=== PATIENT | female | born 1975 | race Caucasian/White ===

== ENCOUNTER 2023-01-16 14:49 | Outpatient (OUT) | payer MEDICAID, SELFPAY ==
--- NOTE | 2023-01-16 15:42 | CA_ITS ---
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 : 1975 Requested By: CORAZON MO Order Number: [id number] Reading MD: KHUSHBOO SHOEMAKER Interpretive Statements Biphasic doppler waveforms PVR waveforms with normal upstroke, amplitude but loss of dicrotic notch Right: - no significant pressure gradient between cuffs - normal JAVIER and TBI Left: - significant pressure gradient between the thigh and calf cuff - normal JAVIER and TBI IMpression: - elevated left thigh index, consistent with calcified, noncompressible arterial encarnacion, which may underestimate the degree of arterial disease present - normal arterial evaluation without hemodynamic impairment of the B/L lower extremities at rest. (right JAVIER 1.16, left JAVIER 1.03) Electronically Signed On 01-18-2023 20:46:27 EDT by KHUSHBOO SHOEMAKER
== END 2023-01-16 14:50 ==
LOC: CARD 14:54
PROVIDERS: Visit Provider Podiatrist Foot & Ankle Surgery
DX: I73.9 Peripheral vascular disease, unspecified (principal)
CPT/HCPCS: 93923

== ENCOUNTER 2023-04-10 14:35 | Outpatient (OUT) | payer MEDICAID, SELFPAY ==
--- NOTE | 2023-04-10 | XR_ITS ---
The [address] [address] Patient Name: CHANTEL MENDEZ MRN: [id number] date: 1975 Sex: F Assigned Patient Location: [facility] Current Patient Location: [facility] Accession/Order Number: [id number] Exam Date: 04/10/2023 15:15 Report Date: 04/10/2023 16:52 At the request of: CORAZON MO Procedure: XR foot HUNTER min 3V EXAMINATION: XR foot HUNTER min 3V HISTORY: BILATERAL FOOT PAIN COMPARISON: No relevant comparison available. FINDINGS: RIGHT FINDINGS: BONES: No acute fracture or dislocation. Moderate to severe degenerative changes most significant at the midfoot forefoot junction. There is lateral subluxation of the metatarsals in relation to the tarsal bones ingesting chronic Lisfranc type dislocation. Bony remodeling marginal osteophyte formation and joint space narrowing. Moderate plantar enthesopathic spurring of the calcaneus SOFT TISSUES: Negative. No visible soft tissue swelling. OTHER: Negative. LEFT FINDINGS: BONES: No acute fracture or dislocation. Mild degenerative changes most significant in the midfoot with marginal osteophyte formation. Mild to moderate enthesopathic spurring of the calcaneus SOFT TISSUES: Negative. No visible soft tissue swelling. OTHER: Negative. XR/XR foot HUNTER min 3V IMPRESSION: RIGHT CONCLUSION: Moderate to severe degenerative changes of the midfoot hindfoot with lateral subluxation of the metatarsals in relation to the tarsal bones LEFT CONCLUSION: Mild degenerative changes Electronically authenticated by: MICHAEL OLIVER Date: 04/10/2023 16:52
== END 2023-04-10 14:36 | disposition home or self-care (01) ==
LOC: RAD 14:35
PROVIDERS: Visit Provider Podiatrist Foot & Ankle Surgery
DX: M19.072 Primary osteoarthritis, left ankle and foot (principal)
CPT/HCPCS: 73630

== ENCOUNTER 2023-07-09 09:46 | Outpatient (OUT) | payer MEDICAID, SELFPAY ==
--- NOTE | 2023-07-09 | XR_ITS ---
The [place] [id number] Patient Name: CHANTEL MENDEZ MRN: [id number] date: 1975 Sex: F Assigned Patient Location: [facility] Current Patient Location: Accession/Order Number: [id number] Exam Date: 07/09/2023 09:50 Report Date: 07/10/2023 00:27 At the request of: CORAZON MO Procedure: XR ankle LT min 3V XR ankle LT min 3V, 07/09/2023 9:50 AM EST INDICATION: LEFT ANKLE PAIN COMPARISON: None. TECHNIQUE: 3 views of the left ankle FINDINGS: No acute fracture or dislocation. The ankle mortise is preserved. Large plantar calcaneal spur is seen. No radiopaque foreign body. XR/XR ankle LT min 3V IMPRESSION: 1. No acute fracture or dislocation. Electronically authenticated by: PATSY TAI Date: 07/10/2023 00:27
== END 2023-07-09 09:47 | disposition home or self-care (01) ==
LOC: RAD 09:46
PROVIDERS: Visit Provider Podiatrist Foot & Ankle Surgery
DX: M19.072 Primary osteoarthritis, left ankle and foot (principal)
CPT/HCPCS: 73610

== ENCOUNTER 2023-07-30 09:44 | Outpatient (OUT) | payer MEDICAID, SELFPAY ==
--- NOTE | 2023-07-30 09:51 | MR_ITS ---
The [place] [id number] Patient Name: CHANTEL MENDEZ MRN: [id number] date: 1975 Sex: F Assigned Patient Location: MRI Current Patient Location: MRI Accession/Order Number: [id number] Exam Date: 07/30/2023 10:00 Report Date: 07/30/2023 11:27 At the request of: CORAZON MO Procedure: MR ankle LT wo con MR ankle LT wo con, 07/30/2023 10:00 AM EST INDICATION: Peroneal Tendonitis, Degenerative Joint Disease COMPARISON: This study was compared to the prior x-ray of the left ankle dated 07/09/2023. TECHNIQUE: Multiplanar and multisequential MR images of the left were obtained without contrast . FINDINGS: Muscles and tendons: There is circumferential fluid along the posterior tibialis tendon suggesting of tenosynovitis. The remainder of flexor and extensor tendons and muscles are unremarkable. T2 prolongation within the peroneus brevis anterior to the peroneal tubercle likely due to focal tendinosis. No abnormality of the peroneal longus is noted. Achilles tendon is unremarkable. Bone: There are moderate degenerative changes of the naviculocuneiform and mild degenerative changes of the talonavicular joint. No osseus lesion is noted. Sinus Tarsi: No abnormality of sinus Tarsi is noted. Plantar fascia: The plantar fascia is unremarkable. Ligaments: The deep and superficial portions of deltoid are unremarkable. There is complete tear of the anterior talofibular ligament. There is a scar within the fibulocalcaneal and the posterior talofibular ligaments are noted. The remainder of lateral ligaments are unremarkable. The visualized portion of Lisfranc ligament is unremarkable. There is normal intra-articular joint effusion. No soft tissue abnormality is noted. MR/MR ankle LT wo con IMPRESSION: Tenosynovitis of the [posterior tibialis tendon. Focal tendinosis of the peroneus brevis adjacent to the peroneal tubercle. Nonvisualization of the anterior talofibular ligament suggesting of complete tear. Poor visualization of the calcaneofibular and posterior talofibular ligaments likely due to scar. Mid tarsal degenerative changes. Electronically authenticated by: REYMUNDO PROCTOR Date: 07/30/2023 11:27
== END 2023-07-30 09:45 | disposition home or self-care (01) ==
LOC: MRI 09:45
PROVIDERS: Visit Provider Podiatrist Foot & Ankle Surgery
DX: M76.72 Peroneal tendinitis, left leg (principal); M19.072 Primary osteoarthritis, left ankle and foot
CPT/HCPCS: 73721

== ENCOUNTER 2023-08-19 09:11 | Outpatient (RCR) | payer MEDICAID, SELFPAY | END 2023-10-15 17:13 | disposition home or self-care (01) | LOC: PT 09:11 | PROVIDERS: Visit Provider Podiatrist Foot & Ankle Surgery | DX: M76.822 Posterior tibial tendinitis, left leg (principal) | CPT/HCPCS: 97010; 97014; 97035; 97110; 97140; 97162 ==

== ENCOUNTER 2023-08-23 08:03 | Outpatient (RCR) | payer MEDICAID, SELFPAY | END 2023-10-12 17:13 | disposition home or self-care (01) | LOC: OT 08:03 | PROVIDERS: Visit Provider Podiatrist Foot & Ankle Surgery | DX: I89.0 Lymphedema, not elsewhere classified (principal) | CPT/HCPCS: 97140; 97166; 97530 ==

== ENCOUNTER 2024-04-09 22:51 | Emergency (ER) | payer SELFPAY ==
--- OUTSIDE RECORDS SUMMARY | 2024-04-09 23:07 | XMS_ITS | CCD ---
Author Organization [facility] Care Team Providers Care General Foundry Worker Name Role Phone Brandi Pruitt MD P Unavailable [phone] Schwerer DO, Jorgito E Unavailable Schwerer DO, Jorgito E Primary Care Provider [phone] Schwerer, Jorgito Unavailable Michael Morley Jr. Unavailable Lety Falk Unavailable Reyna Black Unavailable Schwerer, Jorgito Unavailable Michael Morley Unavailable Issa Mckenzie Unavailable Schwerer, DO Jorgito E Primary Care Provider [phone] Schwnesha DO Jorgito E Attending Provider MD Jodie [facility] Primary Care Provider Unav ailable MD Michael Morley Attending Provider ISAI SUN Attending Unavailable ISAI SUN Admitting Unavailable SCHWERE, JORGITO Primary Care Unavailable ARACELI SAUNDERS Referring Unavailable DO Alex Aguirre Attending Provider Schwerer, DO Jorgito E Primary Care Provider [phone] Schwnesha DO Jorgito E Attending Provider VIPUL Pereira Attending Provider Jazmin Pereira Unavailable Brandi Pruitt MD P Unavailable Schwerer DO, Jorgito E Unavailable Schwerer DO, Jorgito E Primary Care Provider [phone] Schwerer, DO Jorgito E Primary Care Provider Schwerer, DO Jorgito E Attending Provider MD No Torres Attending Provider Schwerer, DO Jorgito E Primary Care Provider Schwerer, DO Jorgito E Attending Provider DO Alex Aguirre Attending Provider [phone] MALDONADO Pereira-Daxa Botello Attending Provider MD No Torres Attending Provider MD Michael Morley Attending Provider [phone] DO Issa Stovall Emergency Provider UnavaDO Kelby Villegas Emergency Provider [phone] Schwerer, DO Jorgito E Primary Care Provider Schwerer, DO Jorgito E Attending Provider Schwerer, DO Jorgito E Primary Care Provider Schwerer, DO Jorgito E Primary Care Provider TRI Reed Emergency Provider MD Vane Felicianoarika Primary Care Provider Unav TODD Cameron Emergency Provider Edmond CHUA, Brandi P Unavailable Schwerer DO, Jorgito E Unavailable [phone] Schwerer DO, Jorgito E Primary Care Provider [phone] Schwerer, DO Jorgito E Primary Care Provider [phone] MD Kenny Villarreal Attending Provider [phone] Schwerer, DO Jorgito E Primary Care Provider [phone] MD Michael Morley Attending Provider MD No Torres Attending Provider TODD Dempsey Attending Provider SCHWERER, Jorgito E Primary Care Physician Kenny Villarreal Schwerer, DO Jorgito E Primary Care Provider [phone] Schwerer, DO Jorgito E Attending Provider Schwerer, DO Jorgito E Other Provider Schwerer, DO Jorgito E Primary Care Provider [phone] Schwerer, DO Jorgito E Attending Provider TODD Magallanes Emergency Provider MD Kenny Villarreal Attending Provider MD No Torres Attending Provider [phone] TODD Dempsey Attending Provider [phone] Schwerer, DO Jorgito E Other Provider MD Jodie [facility] Primary Care Provider Unav MD Michael Vick Attending Provider MD Kenny Rothman Jr Emergency Provider Schwerer, DO Jorgito E Primary Care Provider [phone] Schwerer, DO Jorgito E Attending Provider DO Issa Stovall Emergency Provider MD Kenny Olguin Other Provider MD Mimi Villarreal Other Provider MD Zayda Ku Other Provider DO Holden Strange Other Provider [phone] MD Holland Murphy II Other Provider MD Sam Hodges Admit Provider MD Sam Hodges Attending Provider [phone] MD Walter Zhang Attending Provider [phone] MD Mimi Rodriguez Other Provider WEST, DR MICHAEL Bansal Consulting Unavailable HIGHLANDER, PETER D Admitting Unavailable HIGHLANDER, PETER D Attending Unavailable HIGHLANDER, PETER D Consulting Unavailable WEST, DR MICHAEL Bansal Consulting Unavailable HIGHLANDER, PETER D Admitting Unavailable HIGHLANDER, PETER D Attending Unavailable HIGHLANDER, PETER D Consulting Unavailable HIGHLANDER, PETER D Admitting Unavailable HIGHLANDER, PETER D Attending Unavailable TORRES ., DR SARABIA Attending Unavailable TORRES ., DR SARABIA Consulting Unavailable TORRES ., DR SARABIA Admitting Unavailable TOTH NII Consulting Unavailable TORRES ., DR SARABIA Attending Unavailable TORRES ., DR SARABIA Consulting Unavailable TORRES ., DR SARABIA Admitting Unavailable TORRES ., DR SARABIA Attending Unavailable TORRES ., DR SARABIA Consulting Unavailable TORRES ., DR SARABIA Admitting Unavailable ZIEBER, DR FABY Botello Consulting Unavailable EDILIA LOOMIS Consulting Unavailable ALEX MEDINA Consulting Unavailable TORRES ., DR SARABIA Admitting Unavailable TORRES ., DR SARABIA Attending Unavailable TORRES ., DR SARABIA Consulting Unavailable ZIEBER, DR FABY Botello Consulting Unavailable FRANK MARYCHUY Consulting Unavailable ALEX MEDINA Consulting Unavailable TORRES ., DR SARABIA Attending Unavailable TORRES ., DR SARABIA Consulting Unavailable TORRES ., DR SARABIA Admitting Unavailable BRENT II, KENNY Consulting Unavailable ALEX MEDINA Consulting Unavailable TORRES ., DR SARABIA Attending Unavailable TORRES ., DR SARABIA Admitting Unavailable DO Jorgito Sanchez Primary Care Provider [phone] MD Kenny Villarreal Attending Provider TRI Reed Emergency Provider [phone] DO Chris Sol Emergency Provider DO Jorgito Sanchez Primary Care Provider [phone] TODD Magallanes Emergency Provider [phone] MD Jodie [facility] Primary Care Provider Unav MD Michael Vick Attending Provider [phone] MD Edilia Buitrago Referring Provider [phone] TODD Corea Primary Care Provider MD Mimi Corea Emergency Provider MD Michael Morley Attending Provider MD Vane Felicianoarika Primary Care Provider Unav ailable DO Augustine David Attending Provider DO Jorgito Sanchez Primary Care Provider [phone] TRI Reed Emergency Provider NON STAFF Primary Care Provider UnavailDO Alex Burroughs Attending Provider MD No Torres Attending Provider [facility] Primary Care Provider No TORRES Attending Unavailable No TORRES Attending Unavailable Jorgito SANCHEZ Attending Unavailable No TORRES Attending Unavailable No TORRES Attending Unavailable No TORRES Referring Unavailable MELISSA, No Botello Admitting Unavailable No TORRES Attending Unavailable No TORRES Attending Unavailable MD Vane Felicianoarika Primary Care Provider Unav ailable MD Michael Morley Attending Provider [facility] Primary Care Provider DO Chris Sol Emergency Provider TODD Corea Attending Provider Jorgito Sanchez DO Unavailable [phone] Anmol CARRILLO Brigida R Unavailable Anmol CARRILLO Brigida Yolanda Primary Care Provider SMITA, ISAI Attending Unavailable SKIE, ISAI Attending Unavailable SKIE, ISAI Attending Unavailable SKIE, ISAI Attending Unavailable SKIE, ISAI Attending Unavailable SKIE, ISAI Admitting Unavailable SKIE, ISAI Attending Unavailable SKIE, ISAI Attending Unavailable ANDREA, ROSE Attending Unavailable DARLEEN, YASMANI Attending Unavailable SKIE, ISAI Referring Unavailable SKIE, ISAI Attending Unavailable ANDREA, JACQUI Attending Unavailable SKIE, ISAI Referring Unavailable SKIE, ISAI Referring Unavailable SKIE, ISAI Referring Unavailable SKIE, ISAI Referring Unavailable SKIE, ISAI Attending Unavailable KENIA CONROY Referring Unavailable ISAI SUN Attending Unavailable ROSE FERNANDO Referring Unavailable ISAI SUN Admitting Unavailable ISAI SUN Attending Unavailable [facility] Primary Care Provider [phone] DO Chris Sol Emergency Provider TODD Corea Attending Provider MD Vane Felicianoarika Primary Care Provider Unav MD Michael Vick Attending Provider TODD Newell Emergency Provider TODD Magallanes Emergency Provider [facility] Primary Care Provider TODD Corea Attending Provider Brigida Corea CNP Primary Care Provider TRI Reed Emergency Provider [facility] Primary Care Provider [phone] DO Augustine David Attending Provider [facility] Primary Care Provider TODD Corea Primary Care Provider TODD Barnes-TABITHA-aDxa Bundy Attending Provider DO No [place] Emergency Provider TODD Newell Emergency Provider [phone] JACQUI MONZON Attending Unavailable LAUREN VILLARREAL Attending Unavailable CHACORTA FERNANDO Attending Unavailable LAUREN VILLARREAL Attending Unavailable JACQUI MONZON Attending Unavailable NIKI MURPHY Attending Unavailable NIKI MURPHY Referring Unavailable NIKI MURPHY Attending Unavailable SIMONE BARNES Attending Unavailable ISSA GAMBINO Attending Unavailable ISSA GAMBINO Referring Unavailable SIMONE BARNES Attending Unavailable [place] Reed Admitting Unavailable [place] Reed Attending Unavailable [facility] Primary Care Unavaila Brigida Yun Attending Unavailable Brigida Corea Admitting Unavailable [facility] Primary Care Unavaila Augustine Braden Admitting Unavailable Augustine David Attending Unavailable [place] Reed Attending Unavailable Anmol, Brigida Leny Primary Care Unavailable [place] Reed Admitting Unavailable Osiris, Gaudencio Attending Unavailable Corea, Brigida Leny Primary Care Unavailable Osiris, Gaudencio Admitting Unavailable [place] Reed Attending Unavailable [place] Reed Admitting Unavailable Corea, Brigida Leny Primary Care Unavailable Michael Morley Attending Unavailable Michael Morley Admitting Unavailable Karenwallaceamos Naomi Primary Care Unavailable Corea, Brigida Leny Primary Care Unavailable Barnes, Simone E Admitting Unavailable Cameron Simone E Attending Unavailable Corea, Brigida Leny Primary Care Unavailable No [place] Attending Unavailable No [place] Admitting Unavailable Corea, Brigida Leny Primary Care Unavailable Simone Barnes E Attending Unavailable Cameron Simone E Admitting Unavailable No Torres Admitting Unavailable [facility] Primary Care Unavaila No Patel Attending Unavailable Augustine David Attending Unavailable Augustine David Admitting Unavailable NON STAFF Primary Care Unavailable Alex Aguirre Attending Unavailable Alex Aguirre Admitting Unavailable NON STAFF Primary Care Unavailable Corea, Brigida Leny Admitting Unavailable Corea, Brigida Leny Attending Unavailable [facility] Primary Care Unavaila ble Mary Ellen Magallanes Attending Unavailable Mary Ellen Magallanes Admitting Unavailable [facility] Primary Care Unavaila ble Chris Sol Attending Unavailable Chris Sol Admitting Unavailable [facility] Primary Care Unavaila ble Osiris, Gaudencio Admitting Unavailable John Newellothy Attending Unavailable [facility] Primary Care Unavaila ble MELONY ALAMO Attending Unavailable COREA, BRIGIDA R Primary Care Unavailable ANGEL ZUNIGA Attending Unavailable SUKALAC, NASRA Referring Unavailable COREA, BRIGIDA R Primary Care Unavailable SUKALAC, NASRA Referring Unavailable COREA, BRIGIDA R Primary Care Unavailable SECINALEXANDRACARTER Referring Unavailable COREA, BRIGIDA R Primary Care Unavailable CARTER HALL Attending Unavailable ANMOL, BRIGIDA R Primary Care Unavailable MELONY ALAMO Referring Unavailable COREA, BRIGIDA R Primary Care Unavailable JACQUI CASTRO Attending Unavailable SECIN, CARTER Referring Unavailable COREA, BRIGIDA R Primary Care Unavailable MIMI HERMOSILLO Attending Unavailable REGINA ATKINS Referring Unavailable COREA, BRIGIDA R Primary Care Unavailable MELONY ALAMO Referring Unavailable COREA, BRIGIDA R Primary Care Unavailable JOHNNY SPIVEY Attending Unavailable BRIGIDA COREA R Primary Care Unavailable GINA NASRA Attending Unavailable JORGITO SANCHEZ Primary Care Unavailable CARTER HALL Attending Unavailable BRIGIDA COREA R Primary Care Unavailable JOHNNY SPIVEY Attending Unavailable BRIGIDA COREA R Primary Care Unavailable SIMONE BEARD Attending Unavailable SUKALAC, NASRA Referring Unavailable ANMOL BRIGIDA R Primary Care Unavailable GINA NASRA Attending Unavailable SUPRICELAC, NASRA Referring Unavailable BRIGIDA COREA R Primary Care Unavailable CARTER HALL Referring Unavailable BRIGIDA COREA R Primary Care Unavailable Allergies Allergy Classification Reported Allergen(s) Allergy Type Date of Onset Reaction(s) Facility Anti-Epileptic Agents (2 sources) gabapentin Drug Allergy Unknown Reaction, [facility] Baclofen (1 source) Baclofen Drug Allergy Unknown Reaction [facility] Cephalosporins (antibiotic) (1 source) Cephalexin Drug Allergy Nausea [facility] cyclobenzaprine (1 source) cyclobenzaprine Drug Allergy [facility] Macrolides (antibiotic) (1 source) Azithromycin Drug Allergy Rash, itching [facility] Menthol (1 source) Menthol Drug Allergy Unknown Reaction [facility] NSAIDs (1 source) Naproxen Drug Allergy Rash [facility] Opioid Agonists (2 sources) traMADol Drug Allergy Unknown Reaction [facility] Penicillins (antibiotic) (1 source) Penicillins Drug Allergy [facility] Quinolones (antibiotic) (1 source) Ciprofloxacin Drug Allergy Unknown Reaction [facility] Serotonin-1b and Serotonin-1d Receptor Agonists (1 source) SUMAtriptan Drug Allergy Gastrointestinal Upset [facility] Vitamin E (1 source) Vitamin E Drug Allergy 024 Unknown Reaction [facility] (20 sources) Aloe vera preparation; Translations: [ALOE VERA] Drug Allergy Other: See Comments [facility] (20 sources) Azithromycin; Translations: [AZITHROMYCIN] Drug Allergy Itching, Rash [facility] (20 sources) Baclofen; Translations: [BACLOFEN] Drug Allergy Other: See Comments, Swelling [facility] (20 sources) Cephalexin; Translations: [CEPHALEXIN] Drug Allergy GI Upset, Vomiting [facility] (20 sources) Ciprofloxacin; Translations: [CIPROFLOXACIN] Drug Allergy Other: See Comments [facility] (20 sources) cyclobenzaprine; Translations: [cyclobenzaprine] Drug Allergy Hives, Unknown [facility] (20 sources) gabapentin; Translations: [gabapentin] Drug Allergy Hives, Unknown, Other: See Comments, Eruption of skin (disorder) [facility] (20 sources) Menthol; Translations: [MENTHOL] Drug Allergy Other: See Comments [facility] (20 sources) metFORMIN; Translations: [METFORMIN] Drug Allergy Hives [facility] (4 sources) Non-steroidal anti-inflammatory agent; Translations: [NSAIDS (NON-STEROIDAL ANTI-INFLAMMATORY DRUG)] Drug Allergy 019 Hives, Rash, Other: See Comments [facility] (20 sources) cyclobenzaprine; Translations: [Flexeril] Drug Allergy Unknown [facility] (20 sources) Naproxen; Translations: [naproxen] Drug Allergy Unknown, Rash [facility] (20 sources) NSAIDs Propensity to adverse reactions Unknown [facility] Other (20 sources) Penicillins; Translations: [PENICILLINS] Propensity to adverse reactions Unknown, [facility] (20 sources) traMADol Drug Allergy Unknown, Unknown Reaction [facility] (20 sources) SUMAtriptan; Translations: [sumatriptan] Drug Allergy Gastrointestinal Upset [facility] (20 sources) topiramate; Translations: [topiramate] Drug Allergy [facility] (20 sources) Vitamin E; Translations: [vitamin E (d-alpha tocopherol)] Drug Allergy 022 Unknown Reaction [facility] (2 sources) Amoxicillin; Translations: [AMOXICILLIN] Drug Allergy [facility] Rep[facility] (1 source) NSAIDs Drug allergy (disorder) [facility] (2 sources) Penicillins (Antibiotic) Drug allergy (disorder) [facility] (1 source) rOPINIRole Drug Allergy [facility] (3 sources) topiramate; Translations: [Topamax] Drug Allergy [facility] (20 sources) Non-steroidal anti-inflammatory agent Drug Allergy Hives, Rash, Other: See Comments [facility] (2 sources) Allergy to penicillin; Translations: [Penicillin allergy] Drug allergy itching [facility] (2 sources) Ibuprofen; Translations: [ibuprofen] Drug Allergy rash [facility] (2 sources) tiZANidine; Translations: [tizanidine] Drug Allergy Eruption of skin (disorder) [facility] (2 sources) zonisamide; Translations: [zonisamide] Drug Allergy Eruption of skin (disorder) [facility] (20 sources) Morphine; Translations: [morphine] Drug Allergy 023 GI Upset [facility] (1 source) Amoxicillin Drug Allergy [facility] Rep[facility] (2 sources) gabapentin; Translations: [Neurontin] Drug Allergy [facility] (1 source) metFORMIN Drug Allergy [facility] (1 source) Naproxen Drug Allergy [facility] (1 source) tiZANidine Drug Allergy [facility] (1 source) zonisamide Drug Allergy [facility] (1 source) NSAID - Non-steroidal anti-inflammatory drug; Translations: [NSAID - Non-steroidal anti-inflammatory drug] Propensity to adverse reactions (disorder) [facility] Repository (6 sources) Penicillin Drug Allergy Unknown [facility] Other (14 sources) NSAIDS (Non-Steroidal Anti-Inflamma; Translations: [NSAIDS (Non-Steroidal Anti-Inflamma] Allergy to substance unknown [facility] (1 source) Aloe Extract Drug Allergy [facility] Repository (1 source) Azithromycin Drug Allergy [facility] Repository (1 source) Baclofen Drug Allergy [facility] Repository (1 source) Cephalexin Drug Allergy [facility] Repository (1 source) Ciprofloxacin Drug Allergy [facility] Repository (1 source) cyclobenzaprine Drug Allergy [facility] Repository (1 source) gabapentin Drug Allergy [facility] Repository (1 source) Menthol Drug Allergy [facility] Repository (1 source) Naproxen Drug Allergy [facility] Repository (1 source) Penicillins Drug allergy (disorder) [facility] Repository (1 source) traMADol Drug Allergy [facility] Repository Medications Current Medications Medication Drug Class(es) Dates Sig (Normalized) Sig (Original) [id number] 200 actuat albuterol 0.09 mg/actuat metered dose inhaler (20 sources) beta2-Adrenergic Agonist Start: 09-25-2022 take 2 puff(s) by inhalation every four to six hours as needed Start: 06-14-2022 End: 02-23-2023 Albuterol Sulfate Discontinu ed 1 INH INHALATION Q6H 08 11June 14, 2022 1:00am February 23, 2023 8:12pm Start: 05-23-2021 End: 05-30-2021 Albuterol Sulfate Discontinu ed 1 INH INHALATION EVERY 4-6 HOURS May 23, 2021 12:00am May 30, 2021 12:49am Start: 09-21-2019 End: 08-07-2023 take 2.5 mg by inhalation every four hours Albuterol Sulfate Discontinued 2.5 MG INHALATION Q4H September 21, 2019 1:00am August 07, 2023 11:29pm Start: 09-21-2019 End: 08-07-2023 take 1 puff(s) by inhalation every four hours Albuterol Sulfate Discontinued 2 PUFF INHALATION Q4H September 21, 2019 1:00am August 07, 2023 11:29pm Start: 06-17-2017 Albuterol Sulf ate (2.5 MG/3ML) 0.083% 3 ml as needed Inhalation every 4 hous as needed Jun, Active Start: 05-18-2015 End: 10-15-2023 PROAIR HFA 90 mcg/actuation inhaler as needed. 0 05/18/2015 10/15/2023 Discontinued End: 10-15-2023 albuterol HFA (PROVENTIL HFA , VENTOLIN HFA) 90 mcg/actuation inhaler Inhale 2 Puffs as instructed. 0 10/15/2023 Discontinued take 1 puff(s) by in halation every four hours as needed ProAir HFA 108 (90 Base) MCG/ACT 1 puff as needed Inhalation every 4 hrs prn Active Comment on above: as needed. Inhale 2 Puffs as in structed. albuterol 0.833 mg/ml / ipratropium bromide 0.167 mg/ml inhalation solution (6 sources) Anticholinergic, beta2-Adrenergic Agonist take 3 mL by inhalation every six hours as needed Ipratropium-Albuter ol 0.5-2.5 (3) MG/3ML 3 mL as needed Inhalation every 6 hrs Active Albuterol Sulfate 108 (90 Base) MCG/ACT (20 sources) Start: take 1 puff(s) by inhalation every six hours as needed Start: 06-14-2022 take 1 puff(s) by in halation every six hours as needed Albuterol Sulfate 108 (90 Base) MCG/ACT 1 puff as needed Inhalation every 6 hrs ER 10 Jun, 2022 Active Start: 06-14-2022 take 1 puff(s) by in halation every six hours as needed Albuterol Sulfate 108 (90 Base) MCG/ACT 1 puff as needed Inhalation every 6 hrs for 7 days ER 10 Jun, 2022 Active azithromycin 250 mg oral tablet (5 sources) Macrolide Antimicrobial Start: 06-18-2022 Azithromycin 250 MG 2 tablet on the first day, then 1 tablet daily for 4 days Orally Once a day for 5 day(s) Jun, Active Breo Ellipta 100-25 MCG/INH (20 sources) Start: 12-19-2021 take 1 puff(s) by inhalation once daily Start: 12-19-2021 take 1 puff(s) by in halation once daily Breo Ellipta 100-25 MCG/INH 1 puff Inhalation Once a day December, Not-Taking Start: 12-19-2021 take 1 puff(s) by in halation once daily Breo Ellipta 100-25 MCG/INH 1 puff Inhalation Once a day December, Active carBAMazepine 200 mg oral tablet (20 sources) Mood Stabilizer Start: 08-07-2023 take 200 mg by mouth once daily Carbamazepine Active 200 MG PO Daily August 07, 2023 1:00am Start: 08-07-2023 Carbamazepine Active MG TABLET August 07, 2023 12:00am Start: 08-21-2022 End: 08-07-2023 take 200 mg by mouth twice daily Carbamazepine Discontinued 200 MG PO Twice daily November 03, 2022 12:00am August 07, 2023 11:29pm carBAMazepine Ac tive Comment on above: Take 200 mg by mouth twice daily. carbidopa 25 mg / levodopa 100 mg oral tablet (20 sources) Aromatic Amino Acid Decarboxylation Inhibitor, Aromatic Amino Acid Start: 01-26-2019 Carbidopa-Levodopa Active TAB TABLET August 07, 2023 12:00am Start: 05-15-2017 End: 08-07-2023 take 2 tablets by mouth once daily at bedtime Carbidopa-Levodopa Active 2 TAB PO Daily at bedtime August 07, 2023 1:00am Start: 05-29-2015 carbidopa-levo dopa (SINEMET 10-100) 10-100 mg per tablet 1 tablet daily at bedtime. 05/29/2015 Active take 1 tablet by roly th at bedtime as needed Carbidopa-Levodopa 25-100 MG TAKE 1 TABLET BY MOUTH AT BEDTIME NEEDED for 30 Active Comment on above: 1 tablet daily at be dtiny. cholecalciferol 1.25 mg oral capsule (9 sources) Vitamin D Start: 09-26-2023 take 1 capsule by mouth every week cholecalciferol, Vitamin D3, (VITAMIN D3) 1,250 mcg (50,000 unit) cap capsule Take 1 capsule by mouth one time a week. 09/26/2023 Active Comment on above: Take 1 capsule by mo [facility] one time a week. Compression stockings, 20-30mmHg, calf 20-30mmHg (20 sources) Start: 04-26-2022 Start: 04-26-2022 Start: 04-26-[address] [place]ckings, 20-30mmHg, calf 20-30mmHg 1 externally daily as directed for 90 days Apr, Active Start: 04-26-[address] [place]ckings, 20-30mmHg, calf 20-30mmHg 1 externally daily as directed for 90 day Apr, Active dextromethorphan hydrobromide 1.5 mg/ml / pyrilamine maleate 1.5 mg/ml oral solution (17 sources) Uncompetitive J-zlvdmh-U-aspartate Receptor Antagonist, Sigma-1 Agonist Start: 09-25-2022 take 10 mL by mouth every eight hours dulaglutide (12 sources) GLP-1 Receptor Agonist Start: 02-19-2024 inject 4.5 mg by subcutaneous injection every week Dulaglutide Active 4.5 MG SUBCUT every week February 19, 2024 9:15am Start: 04-10-2023 Trulicity 0.75 MG/0.5ML 1 injector Subcutaneous weekly for 28 days Apr, Active Trulicity 4.5 MG /0.5ML USE DIRECTED SUBCUTANEOUSLY ONCE A WEEK for 28 Active Trulicity 4.5 MG /0.5ML as directed Subcutaneous weekly for 30 days E11.9 Active Trulicity 3 MG/0 .5ML as directed Subcutaneous weekly for 30 days Active Trulicity 1.5 MG /0.5ML as directed Subcutaneous weekly for 30 days Active dulaglutide (TRULICITY) 4.5 mg/0.5 mL pen injector (14 sources) inject 4.25 mg by subcutaneous injection every week dulaglutide (TRULICITY) 4.5 mg/0.5 mL pen injector Inject 4.25 mg subcutaneously one time a week. Active inject 4.25 mg by garcia bcutaneous injection every week dulaglutide (TRULICITY) 4.5 mg/0.5 mL pe n injector Inject 4.25 mg subcutaneously one time a week. 0 Active Comment on above: Inject 4.25 mg subcu taneously one time a week. DULoxetine 60 mg delayed release oral capsule (20 sources) Serotonin and Norepinephrine Reuptake Inhibitor Start: 08-07-2023 Duloxetine Active MG PO August 07, 2023 12:00am Start: 09-04-2021 take 60 mg by mouth once daily Duloxetine Active 60 MG PO Daily August 07, 2023 1:00am Start: 09-04-2021 End: 08-07-2023 take 90 mg by mouth once daily Duloxetine Discontinued 90 MG PO Daily September 04, 2021 1:00am August 07, 2023 11:29pm Start: 09-04-2021 take 30 mg by mouth once daily Duloxetine Active 30 MG PO Daily September 04, 2021 1:00am Comment on above: Take 60 mg by mouth. duloxetine 60 mg Cap-DR (1 source) Start: 2 take 1 capsule by mouth once daily duloxetine 60 mg Cap-DR 60 mg, Oral, Daily Start Date: 05/02/22 Status: Ordered 30 actuat fluticasone furoate 0.1 mg/actuat / vilanterol 0.025 mg/actuat dry powder inhaler (18 sources) Corticosteroid, beta2-Adrenergic Agonist Start: 2 take 1 puff(s) by inhalation once daily Breo Ellipta 100-25 MCG/INH 1 puff Inhalation Once a day for 30 days December, Active furosemide 40 mg oral tablet (20 sources) Loop Diuretic Start: 2 End: 4 take 1 tablet by mouth once daily furosemide 40 mg Tab 40 mg = 1 tab(s), Oral, Daily Start Date: 05/02/22 Status: Ordered Start: 01-21-2020 End: 08-07-2023 take 40 mg by mouth twice daily Furosemide Discontinue d 40 MG PO Twice daily January 21, 2020 12:00am August 07, 2023 11:29pm Start: 05-15-2017 End: 01-21-2020 take 1 tablet by mouth twice daily Furosemide (Lasix) 20 mg Tablet Discontinued 20 MG PO Twice daily May 15, 2017 12:00am January 21, 2020 9:14am Comment on above: furosemide 40 mg tab let TAKE 1 TABLET BY MOUTH ONCE DAILY FOR 30 DAYS Victoza (20 sources) GLP-1 Receptor Agonist Start: 05-02-2022 inject 1 mg by subcutaneous injection once daily Victoza mg, SubCutaneous, Daily Start Date: 05/02/22 Status: Ordered Start: 03-20-2021 End: 10-15-2023 Liraglutide (Victoza 3-Arden) 0.6 mg/0.1 mL (18 mg/3 mL) pen injector Discontinued 1.8 MG SUBCUT Every morning March 20, 2021 12:00am August 07, 2023 11:29pm Start: 03-20-2021 End: 03-20-2021 Liraglutide (Victoza 3-Arden) 0.6 mg/0.1 mL (18 mg/3 mL) pen injector Discontinued MG SUBCUT March 20, 2021 12:00am March 20, 2021 8:25am Comment on above: Victoza 3-Arden 0.6 mg /0.1 mL (18 mg/3 mL) subcutaneous pen injector Lumateperone (13 sources) Start: 10-06-19 take 1 capsule by mouth once daily Lumateperone (Caplyta) 10.5 mg capsule Active 10.5 MG PO Daily October 06, 2023 1:00am lumateperone (CAPLYTA) 10.5 mg capsule (9 sources) take 1 capsule by mouth once daily lumateperone (CAPLYTA) 10.5 mg capsule Take 10.5 mg by mouth once daily. Active take 1 capsule by mouth once dawson ly lumateperone (CAPLYTA) 10.5 mg capsule Take 10.5 mg by mouth once daily. 0 Active Comment on above: Take 10.5 mg by mout h once daily. metoclopramide 5 mg oral tablet (13 sources) Dopamine-2 Receptor Antagonist Start: 2 take 1 tablet by mouth every twelve hours Reglan 5 MG 1 tablet before meals Orally Twice a day for 30 day(s) Mar, Active nabumetone 500 mg oral tablet (16 sources) Nonsteroidal Anti-inflammatory Drug Start: 4 nabumetone (RELAFEN) 500 mg tablet 500 mg. 11/13/2023 Active Start: 10-27-2023 take 750 mg by mouth twice daily Nabumetone Active 750 MG PO Twice daily October 27, 2023 12:00am nitrofurantoin, macrocrystals 25 mg / nitrofurantoin, monohydrate 75 mg oral capsule (20 sources) Nitrofuran Antibacterial Start: 10-14-2023 End: 10-19-2023 take 1 capsule by mouth twice daily nitrofurantoin monohydrate and macrocrystal (MACROBID) 100 mg capsule Take 1 capsule by mouth two times a day for 5 days. 10 capsule 0 10/14/2023 10/19/2023 Active Start: 08-08-2023 End: 10-06-2023 take 1 capsule by mouth twice daily at mealtime Nitrofurantoin Monohyd/M-Cryst (Macrobid) 100 mg capsule Discontinued 100 MG PO Twice daily 10 August 08, 2023 1:00am October 06, 2023 6:40pm must administer with a meal/food Start: 10-20-2022 End: 11-03-2022 take 1 capsule by mouth every twelve hours at mealtime Nitrofurantoin Monohyd/M-Cryst (Macrobid) 100 mg capsule Discontinued 100 MG PO Q12H 10 October 20, 2022 12:00am November 03, 2022 1:49am administer with a meal/food; swallow whole; do not open, crush, dissolve , or chew Start: 03-01-2022 take 1 tablet by roly twice daily Macrobid 100 MG 1 tab Orally BID for 5 days Feb, Active Start: 05-15-2017 End: 05-22-2017 take 1 capsule by mouth every twelve hours at mealtime Nitrofurantoin Monohyd/M-Cryst (Macrobid) 100 mg capsule Discontinued 100 MG PO Q12H 14 May 15, 2017 12:00am May 22, 2017 12:03am administer with a meal/food; swallow whole; do not open, crush, dissolve , or chew Comment on above: Take 1 capsule by mo uth two times a day for 5 days. Nurtec ODT (1 source) Start: 05-02-2022 take 75 mg by mouth once Nurtec ODT 75 mg, Oral, Once Start Date: 05/02/22 Status: Ordered omeprazole 40 mg delayed release oral capsule (20 sources) Proton Pump Inhibitor Start: 04-02-2022 take 1 capsule by mouth once daily Omeprazole 40 MG 1 capsule 30 minutes before morning meal Orally Once a day for 30 day(s) Mar, Active Start: 09-21-2019 End: 09-23-2019 take 10 mg by mouth once daily Omeprazole Discontinued 10 MG PO Daily September 21, 2019 1:00am September 23, 2019 10:51am polyethylene glycol 3350 33663 mg powder for oral solution (5 sources) Osmotic Laxative Start: 11-28-2023 polyethylene glycol 3350 (MIRALAX) 17 gram/dose powder Indications: Other constipation Take 17 g by mouth once daily as needed. 166 g 2 11/28/2023 Active pramipexole dihydrochloride 0.125 mg oral tablet (20 sources) Nonergot Dopamine Agonist Start: 10-06-2023 Pramipexole Active M G TABLET October 06, 2023 1:00am Start: 10-02-2023 take 1 tablet by roly th at bedtime pramipexole (MIRAPEX) 0.125 mg tablet TAKE 1 TABLET BY MOUTH 2 TO 3 HOURS BEFORE BEDTIME 10/02/2023 Active Comment on above: TAKE 1 TABLET BY ROLY TH 2 TO 3 HOURS BEFORE BEDTIME pregabalin 100 mg oral capsule (20 sources) Start: 10-28-2023 take 100 mg by mouth once daily at bedtime Pregabalin Active 100 MG PO Daily at bedtime October 28, 2023 10:14am Start: 08-07-2023 End: 10-28-2023 take 100 mg by mouth twice daily Pregabalin Discontinued 100 MG PO Twice daily August 07, 2023 1:00am October 28, 2023 10:15am Start: 08-07-2023 End: 10-28-2023 Pregabalin Discontinued MG J an2023 1:00am October 28, 2023 10:16am Start: 08-07-2023 Pregabalin Act sushma MG August 07, 2023 1:00am Start: 08-07-2023 Pregabalin Act sushma MG August 07, 2023 12:00am End: 10-15-2023 take 1 capsule by mouth twice daily pregabalin (LYRICA) 50 mg capsule Take 50 mg by mouth two times a day. 0 10/15/2023 Discontinued Comment on above: Take 50 mg by mouth two times a day. ramelteon 8 mg oral tablet (4 sources) Melatonin Receptor Agonist take 1 tablet by mouth every twenty-four hours Ramelteon 8 MG 1 tablet at bedtime as needed Orally Once a day Active rimegepant sulfate (NURTEC ODT ORAL) (14 sources) rimegepant sulfa te (NURTEC ODT ORAL) Take 75 mg by mouth. Active rimegepant sulfa te (NURTEC ODT ORAL) Take 75 mg by mouth. 0 Active Comment on above: Take 75 mg by mouth. Completed/Discontinued Medications Medication Drug Class(es) Dates Sig (Normalized) Sig (Original) acetaminophen 325 mg / butalbital 50 mg / caffeine 40 mg oral capsule (20 sources) Barbiturate, Central Nervous System Stimulant, Methylxanthine Start: 09-21-2019 End: 01-21-2020 take 1 capsule by mouth every four hours Butalbital-Acetam inophen-Caff (Esgic) 50-325-40 mg Capsule Discontinued 1 CAP PO Q4H September 21, 2019 1:00am January 21, 2020 9:14am acetaminophen 325 mg / HYDROcodone bitartrate 5 mg oral tablet (20 sources) Opioid Agonist Start: 04-03-2021 End: 05-30-2021 take 1 tablet by mouth every six hours Hydrocodone-Aceta minophen Discontinued 1 TAB PO Q6H 30 April 03, 2021 May 30, 2021 12:49am Start: 05-15-2017 End: 01-04-2019 take 1 tablet by mouth every four to six hours Hydrocodone-Acetaminophen (Vicodin) 5-30 0 mg Tablet Discontinued 1 TAB PO EVERY 4-6 HOURS May 15, 2017 12:00am January 04, 2019 9:26pm acetaminophen 325 mg / oxyCODONE hydrochloride 5 mg oral tablet (20 sources) Opioid Agonist Start: 03-12-2024 End: 03-23-2024 take 1 tablet by mouth every eight hours Oxycodone-Acetaminophen (Percocet) 5-325 mg tablet Discontinued 1 TAB PO Every 8 hours 7 2 March 12, 2024 March 23, 2024 6:36pm Start: 10-20-2022 End: 11-03-2022 take 1 tablet by mouth every six hours Oxycodone-Acetaminophen (Percocet) 5-325 mg tablet Discontinued 1 - 2 TAB PO Every 6 hours 22 11October 20, 2022 November 03, 2022 1:50am Start: 04-10-2021 End: 05-30-2021 take 1 tablet by mouth every six hours Oxycodone-Acetaminophen (Percocet) 5-325 mg tablet Discontinued 1 TAB PO Q6H 10 April 10, 2021 May 30, 2021 12:49am ascorbic acid 500 mg oral tablet (20 sources) Vitamin C Start: 11-03-2022 End: 02-23-2023 take 1 tablet by mouth once daily Ascorbic Acid (Vitamin C) (Vitamin C) 500 mg Tablet Discontinued 500 MG PO Daily November 03, 2022 12:00am February 23, 2023 8:12pm B-12 - up to 1000 mcg (20 sources) Start: 10-16-2022 B-12 - up to 1 000 mcg Oct, 1000 mcg Start: 08-22-2022 B-12 - up to 1 000 mcg Aug, 1000 mcg Start: 03-08-2022 B-12 - up to 1 000 mcg Mar, 1000 mcg Start: 01-30-2022 B-12 - up to 1 000 mcg Jan, 1000 mcg Start: 11-21-2021 B-12 - up to 1 000 mcg Nov, 1000 mcg Start: 10-10-2021 B-12 - up to 1 000 mcg Oct, 1000 mcg Start: 09-15-2021 B-12 - up to 1 000 mcg Sep, 1000 mcg Start: 08-14-2021 B-12 - up to 1 000 mcg Aug, 1000 mcg Start: 07-13-2021 B-12 - up to 1 000 mcg Jul, 1000 mcg Start: 04-25-2021 B-12 - up to 1 000 mcg Apr, 1000 mcg Start: 03-29-2021 B-12 - up to 1 000 mcg Mar, 1000 mcg Start: 02-21-2021 B-12 - up to 1 000 mcg Feb, 1000 mcg Start: 01-24-2021 B-12 - up to 1 000 mcg Jan, 1000 mcg Start: 12-13-2020 B-12 - up to 1 000 mcg December, 1000 mcg Start: 11-17-2020 B-12 - up to 1 000 mcg Nov, 1000 mcg Start: 09-14-2020 B-12 - up to 1 000 mcg Sep, 1000 mcg Start: 09-01-2020 B-12 - up to 1 000 mcg Aug, 1000 mcg Start: 08-03-2020 B-12 - up to 1 000 mcg Jul, 1000 mcg Start: 07-18-2020 B-12 - up to 1 000 mcg Jul, 1 mL Start: 07-06-2020 B-12 - up to 1 000 mcg Jul, 1000 mcg Start: 05-05-2020 B-12 - up to 1 000 mcg May, 1000 mcg Start: 03-31-2020 B-12 - up to 1 000 mcg Mar, 1000 mcg Start: 03-23-2020 B-12 - up to 1 000 mcg Mar, 1 mL benoxinate hydrochloride 4 mg/ml / fluorescein sodium 3 mg/ml ophthalmic solution (2 sources) Diagnostic Dye Start: 12-23-2023 End: 12-23-2023 fluorescein-benoxinate 0.3-0.4 % 1 Drop (FLURESS) Start: 12-13-2022 End: 12-14-2022 fluorescein-benoxinate 0.25- 0.4 % 1 Drop (FLURESS) benzonatate 200 mg oral capsule (20 sources) Non-narcotic Antitussive Start: 03-16-2023 End: 08-07-2023 take 200 mg by mouth three times daily Benzonatate Discontinued 200 MG PO Three times daily March 16, 2023 12:00am August 07, 2023 11:29pm Start: 06-14-2022 End: 06-29-2022 take 100 mg by mouth twice daily Benzonatate Discontinued 100 MG PO Twice daily 15 02June 14, 2022 1:00am June 29, 2022 7:40pm Start: 06-01-2017 End: 02-23-2018 take 1 capsule by mouth every eight hours Benzonatate (Tessalon Perles) 100 mg capsule Discontinued 100 MG PO Q8H June 01, 2017 12:00am February 23, 2018 9:24pm brompheniramine maleate 0.4 mg/ml / dextromethorphan hydrobromide 2 mg/ml / pseudoephedrine hydrochloride 6 mg/ml oral solution (20 sources) alpha-Adrenergic Agonist, Uncompetitive T-qswgle-X-aspartate Receptor Antagonist, Sigma-1 Agonist Start: 01-03-2024 End: 02-18-2024 take 1 mL by mouth four times daily Vmbavcvacsgypch-Ieksnygcn-Uj (Bromfed Dm) 2-30-10 mg/5 mL syrup Discontinued 5 ML PO Four times daily January 03, 2024 12:00am February 18, 2024 3:55pm Start: 04-08-2023 End: 08-07-2023 take 1 mL by mouth four times daily Dzrgfqruotldbbu-Isjzaigtv-Us (Bromfed Dm ) 2-30-10 mg/5 mL syrup Discontinued 5 ML PO Four times daily April 08, 2023 12:00am August 07, 2023 11:29pm Start: 06-18-2022 take 5 mL by mouth every six hours as needed Hukluydwq-Eytyeyze-LP 30-2-10 MG/5ML 5 m l as needed Orally every 6 hrs for 5 days Jun, Active Start: 07-14-2021 take 5 mL by mouth every six hours as needed Feyajpbvu-Odioezyv-FY 30-2-10 MG/5ML 5 m l as needed Orally every 6 hrs for 5 days Jul, Active 120 actuat budesonide 0.16 mg/actuat / formoterol fumarate 0.0045 mg/actuat metered dose inhaler (20 sources) Corticosteroid, beta2-Adrenergic Agonist Start: 08-07-2023 End: 10-28-2023 Budesonide-Formoterol (Symbicort) 160-4.5 mcg/actuation HFA aerosol inhaler Discontinued 2 INH INHALATION Twice daily August 07, 2023 1:00am October 28, 2023 10:13am Start: 08-07-2023 Budesonide-For moterol (Symbicort) 160-4.5 mcg/actuation HFA aerosol inhaler Active INHALATION August 07, 2023 12:00am Start: 11-03-2022 End: 02-23-2023 take 1 puff(s) by inhalation twice daily Budesonide-Formoterol (Symbicort) 160-4.5 mcg/actuation HFA aerosol inhaler Discontinued 2 PUFF INHALATION Twice daily November 03, 2022 12:00am February 23, 2023 8:12pm Start: 01-21-2020 End: 03-20-2021 take 1 puff(s) by inhalation once daily Budesonide-Formoterol (Symbicort) 80-4.5 mcg/actuation HFA aerosol inhaler Discontinued 2 PUFF INHALATION Daily January 20, 2020 11:00pm March 20, 2021 7:24am Start: 01-21-2020 End: 03-20-2021 take 1 puff(s) by inhalation once daily Budesonide-Formoterol (Symbicort) 80-4.5 mcg/actuation HFA aerosol inhaler Discontinued 2 PUFF INHALATION Daily January 21, 2020 12:00am March 20, 2021 8:24am take 2 puff(s) by in halation once daily celecoxib 200 mg oral capsule (20 sources) Nonsteroidal Anti-inflammatory Drug Start: 11-22-2020 End: 10-15-2023 take 200 mg by mouth once daily Celecoxib Discontinued 200 MG PO Daily November 03, 2022 12:00am August 07, 2023 11:29pm Comment on above: 1 capsule DAILY (rou te: oral) cephalexin 500 mg oral capsule (1 source) Cephalosporin Antibacterial Start: 05-29-2022 take 1 capsule by mouth once daily Keflex 500 mg Cap 500 mg = 1 cap(s), Oral, Daily, Take 1 capsule the day before the procedure and 1 capsule after the procedure, # 2 cap(s), Refills(s) 0, Pharmacy: [id number], 91.7, kg, 05/02/22 10:38:00 EDT, Weight Dosing Start Date: 05/29/22 Status: Ordered clarithromycin 500 mg oral tablet (20 sources) Macrolide Antimicrobial Start: 05-30-2021 End: 09-04-2021 take 500 mg by mouth twice daily Clarithromycin Discontinued 500 MG PO Twice daily 14 May 30, 2021 12:00am September 04, 2021 2:08am clindamycin 300 mg oral capsule (20 sources) Lincosamide Antibacterial Start: 07-04-2019 End: 09-21-2019 take 300 mg by mouth every eight hours Clindamycin Hcl Discontinued 300 MG PO Q8H July 04, 2019 1:00am September 21, 2019 11:30am Start: 04-30-2019 End: 06-26-2019 take 300 mg by mouth every six hours Clindamycin Hcl Discontinued 300 MG PO Q6H 28 April 30, 2019 12:00am June 26, 2019 12:30pm clobetasol propionate 0.5 mg/ml medicated shampoo (20 sources) Corticosteroid Start: 08-07-2023 End: 03-23-2024 Clobetasol Discontinued TOPICAL August 07, 2023 1:00am March 23, 2024 6:37pm Start: 11-03-2022 End: 08-07-2023 Clobetasol Discontinued 1 AP PLIC TOPICAL Use as Directed November 03, 2022 12:00am August 07, 2023 11:29pm 2-3 times a week Start: 04-13-2021 Clobetasol Pro pionate 0.05 % 1 application Externally Once a day for 10 day(s) dispense QS for 10 days. Apr, Not-Taking dextromethorphan hydrobromide 3 mg/ml / promethazine hydrochloride 1.25 mg/ml oral solution (20 sources) Phenothiazine, Uncompetitive Q-kvdjdl-O-aspartate Receptor Antagonist, Sigma-1 Agonist Start: 07-22-2022 End: 11-03-2022 take 1 mL by mouth every six hours Promethazine-Dm Discontinued 5 ML PO Q6H 118 July 22, 2022 1:00am November 03, 2022 1:52am diclofenac sodium 0.01 mg/mg topical gel (20 sources) Nonsteroidal Anti-inflammatory Drug Start: 06-25-2019 End: 01-21-2020 apply 4 g topically four times daily Diclofenac Sodium Discontinued 4 GM TOPICAL Four times daily 100 June 25, 2019 8:09pm January 21, 2020 9:14am apply to single knee, ankle, foot; for foot includes sole/toes/top of foot dicyclomine hydrochloride 10 mg oral capsule (20 sources) Anticholinergic Start: 07-02-2022 take 2 capsules by mouth every twelve hours Dicyclomine HCl 10 MG 2 capsules Orally BID ER 28 Jun, 2022 Not-Taking Start: 06-29-2022 End: 11-03-2022 take 10 mg by mouth twice daily Dicyclomine Discontinued 10 MG PO Twice daily June 29, 2022 9:33pm November 03, 2022 1:49am diphenhydrAMINE hydrochloride 25 mg oral capsule (20 sources) Histamine-1 Receptor Antagonist Start: 11-03-2022 End: 02-23-2023 take 1 capsule by mouth every eight hours Diphenhydramine Hcl (Benadryl) 25 mg capsule Discontinued 25 MG PO Q8H November 03, 2022 12:00am February 23, 2023 8:12pm doxepin hydrochloride 25 mg oral capsule (20 sources) Tricyclic Antidepressant Start: 09-21-2019 End: 09-23-2019 take 25 mg by mouth once daily Doxepin Discontinued 25 MG PO Daily September 21, 2019 1:00am September 23, 2019 10:50am doxycycline hyclate 100 mg oral tablet (20 sources) Tetracycline-class Drug Start: 10-27-2023 End: 02-18-2024 take 100 mg by mouth twice daily Doxycycline Hyclate Discontinued 100 MG PO Twice daily 24 05October 27, 2023 12:00am February 18, 2024 3:55pm Start: 03-16-2023 End: 08-07-2023 take 100 mg by mouth twice daily Doxycycline Hyclate Discontinued 100 MG PO Twice daily 24 05March 16, 2023 12:00am August 07, 2023 11:29pm Start: 01-22-2022 take 1 tablet by roly th every twelve hours Doxycycline Hyclate 100 MG 1 tablet Orally every 12 hrs for 10 day(s) Jan, Active Start: 09-11-2021 take 1 tablet by roly th every twelve hours Doxycycline Hyclate 100 MG 1 tablet Orally every 12 hrs for 10 day(s) Sep, Not-Taking Start: 05-23-2021 End: 10-15-2023 take 100 mg by mouth twice daily Doxycycline Hyclate Discontinued 100 MG PO Twice daily 15 02June 14, 2022 1:00am June 29, 2022 7:40pm Dulaglutide (Trulicity) 3 mg/0.5 mL pen injector (20 sources) Start: 02-18-2024 End: 02-19-2024 Dulaglutide (Trulicity) 3 mg /0.5 mL pen injector Discontinued 4.5 MG SUBCUT every week 2 February 18, 2024 4:23pm February 19, 2024 9:16am Start: 02-18-2024 End: 02-18-2024 Dulaglutide (Trulicity) 3 mg /0.5 mL pen injector Discontinued 4.5 MG SUBCUT every week February 18, 2024 3:55pm February 18, 2024 4:24pm Start: 02-18-2024 Dulaglutide (T rulicity) 3 mg/0.5 mL pen injector Active 4.5 MG SUBCUT every week February 18, 2024 3:55pm Start: 12-24-2023 End: 02-18-2024 Dulaglutide (Trulicity) 3 mg /0.5 mL pen injector Discontinued 3 MG SUBCUT every week 2 December 24, 2023 7:32am February 18, 2024 3:57pm Start: 12-24-2023 Dulaglutide (T rulicity) 3 mg/0.5 mL pen injector Active 3 MG SUBCUT every week 2 December 24, 2023 7:32am Start: 11-26-2023 End: 12-24-2023 Dulaglutide (Trulicity) 3 mg /0.5 mL pen injector Discontinued 3 MG SUBCUT every week 2 November 26, 2023 12:00am December 24, 2023 7:33am Start: 10-28-2023 End: 10-30-2023 Dulaglutide (Trulicity) 3 mg /0.5 mL pen injector Discontinued 4.5 MG SUBCUT every week 2 October 28, 2023 10:42am October 30, 2023 2:39pm Start: 08-07-2023 End: 10-28-2023 Dulaglutide (Trulicity) 3 mg /0.5 mL pen injector Discontinued 4.5 MG SUBCUT every week August 07, 2023 1:00am October 28, 2023 10:44am Start: 08-07-2023 Dulaglutide (T rulicity) 3 mg/0.5 mL pen injector Active 4.5 MG SUBCUT every week August 07, 2023 1:00am Start: 08-07-2023 Dulaglutide (T rulicity) 3 mg/0.5 mL pen injector Active MG SUBCUT August 07, 2023 12:00am Dulaglutide (Trulicity) 4.5 mg/0.5 mL pen injector (11 sources) Start: 10-30-2023 End: 11-26-2023 Dulaglutide (Trulicity) 4.5 mg/0.5 mL pen injector Discontinued 4.5 MG SUBCUT every week 2 October 30, 2023 12:00am November 26, 2023 2:18pm Start: 10-30-2023 Dulaglutide (T rulicity) 4.5 mg/0.5 mL pen injector Active 4.5 MG SUBCUT every week 2 October 30, 2023 12:00am estradiol 0.1 mg/ml vaginal cream (20 sources) Estrogen Start: 11-03-2022 End: 02-23-2023 Estradiol Discontinued 1 APPLIC VAGINAL every Saturday, Saturday, and Thursday November 03, 2022 12:00am February 23, 2023 8:12pm ferrous sulfate 325 mg oral tablet (20 sources) Start: 05-15-2017 End: 06-29-2022 take 325 mg by mouth once daily at bedtime Ferrous Sulfate Discontinued 325 MG PO Daily at bedtime January 01, 2020 12:00am June 29, 2022 7:41pm fluticasone propionate 0.05 mg/actuat metered dose nasal spray (20 sources) Corticosteroid Start: 08-28-2022 End: 10-15-2023 take 1 spray(s) nasal route twice daily fluticasone (FLONASE ALLERGY RELIEF) 50 mcg/actuation nasal spray Use 1 [place] in each nostril twice daily. 15.8 mL 2 08/28/2022 10/15/2023 Discontinued Start: 07-05-2022 take 2 spray(s) nasa l route once daily Flonase Allergy Relief 50 MCG/ACT 2 spray in each nostril Nasally Once a day for 30 day(s) Jul, Active Start: 09-21-2019 End: 09-23-2019 Fluticasone Propionate Disco ntinued 1 INH INHALATION Q12H September 21, 2019 1:00am September 23, 2019 10:51am Comment on above: Use 1 [place] in each nostril twice daily. glipiZIDE 5 mg oral tablet (20 sources) Sulfonylurea Start: 4 End: 4 take 5 mg by mouth once daily Glipizide Discontinued 5 MG PO Daily August 07, 2023 1:00am October 28, 2023 10:43am Start: 08-07-2023 Glipizide Acti ve MG TABLET August 07, 2023 12:00am Comment on above: Take 5 mg by mouth d aily before breakfast. ibuprofen 600 mg oral tablet (20 sources) Nonsteroidal Anti-inflammatory Drug Start: 3 End: 3 take 600 mg by mouth every eight hours Ibuprofen Discontinued 600 MG PO Q8H October 20, 2022 12:00am February 23, 2023 8:13pm Start: 03-20-2021 End: 02-23-2023 take 800 mg by mouth three times daily Ibuprofen Discontinued 800 MG PO Three times daily March 20, 2021 12:00am February 23, 2023 8:13pm take 1 tablet by roly th every eight hours at mealtime as needed Ibuprofen 800 MG 1 tablet with food or milk as needed Orally every 8 hrs Active Ketorolac (20 sources) Nonsteroidal Anti-inflammatory Drug, Cyclooxygenase Inhibitor Start: 09-21-2013 Toradol per 15 mg Sep, 60 mg lidocaine 0.05 mg/mg medicated patch (20 sources) Antiarrhythmic, Amide Local Anesthetic Start: 10-27-2023 End: 03-23-2024 apply 1 dose topically once daily Lidocaine Discontinued 1 PATCH TOPICAL Daily October 27, 2023 12:00am March 23, 2024 6:36pm leave on most painful area for up to 12 hrs Start: 01-28-2023 apply 1 dose transde rmal route once daily as needed Start: 01-28-2023 End: 02-23-2023 apply 1 dose topically every twenty-four hours Lidocaine Discontinued 1 PATCH TOPICAL Q24H January 28, 2023 12:00am February 23, 2023 8:13pm leave on most painful area for up to 12 hrs loratadine 10 mg oral tablet (20 sources) Start: 08-28-2022 End: 10-15-2023 take 10 mg by mouth once daily Loratadine Discontinued 10 MG PO Daily November 03, 2022 12:00am February 23, 2023 8:13pm Comment on above: Take 1 tablet by roly th once daily. lurasidone hydrochloride 60 mg oral tablet (20 sources) Atypical Antipsychotic Start: 05-15-2017 End: 01-21-2020 take 1 tablet by mouth once daily Lurasidone (Latuda) 60 mg Tablet Discontinued 60 MG PO Daily May 15, 2017 12:00am January 21, 2020 9:15am Start: 04-01-2015 End: 10-15-2023 LATUDA 20 mg tablet 1 tablet once daily. 0 04/01/2015 10/15/2023 Discontinued Comment on above: 1 tablet once daily. magnesium citrate 58.2 mg/ml oral solution (20 sources) Start: 07-20-20 End: 01-21-20 20 take 1 mL by mouth once Magnesium Citrate Discontinued 37.5 ML PO Once 296 July 20, 2019 1:00am January 21, 2020 9:15am meloxicam 15 mg oral tablet (20 sources) Nonsteroidal Anti-inflammatory Drug Start: 06-23-20 End: 10-15-19 24 take 1 tablet by mouth once daily Meloxicam (Mobic) 15 mg Tablet Discontinued 15 MG PO Daily January 04, 2019 12:00am March 20, 2021 8:24am Comment on above: Take 1 tablet by roly once daily. metFORMIN hydrochloride 500 mg oral tablet (20 sources) Biguanide Start: 05-15-20 End: 10-15-19 24 take 1 tablet by mouth twice daily metFORMIN (GLUCOPHAGE) 500 mg tablet metformin 500 mg tablet TAKE 1 TABLET BY MOUTH TWICE DAILY 0 05/15/2017 10/15/2023 Discontinued Start: 05-15-2017 End: 06-29-2022 take 1000 mg by mouth once daily at bedtime Metformin Discontinued 1000 MG PO Daily at bedtime May 15, 2017 12:00am June 29, 2022 7:41pm Comment on above: metformin 500 mg tab let TAKE 1 TABLET BY MOUTH TWICE DAILY methocarbamol 750 mg oral tablet (20 sources) Muscle Relaxant Start: 4 End: 4 take 750 mg by mouth once daily Methocarbamol Discontinued 750 MG PO Daily August 07, 2023 1:00am March 23, 2024 6:36pm Start: 08-07-2023 Methocarbamol Active MG TABLET August 07, 2023 12:00am Start: 01-28-2023 End: 02-23-2023 take 750 mg by mouth three times daily Methocarbamol Discontinued 750 MG PO Three times daily January 28, 2023 12:00am February 23, 2023 8:13pm Start: 12-06-2022 take 1 tablet by roly th every twenty-four hours Methocarbamol 500 MG 1 tablets Orally Once daily for 30 days December, Active take 1 tablet by roly th every four hours Methocarbamol 750 MG 1 tablet Orally every 4 hrs prn Active Comment on above: Take 750 mg by mouth as needed. methylPREDNISolone (20 sources) Corticosteroid Start: Depo-Medrol 80 mg Jan, 1 mL 24 hr mirabegron 50 mg extended release oral tablet (5 sources) beta3-Adrenergic Agonist Start: End: take 1 tablet by mouth once daily mirabegron (MYRBETRIQ) 50 mg Tb24 Indications: Overactive bladder Take 1 tablet by mouth once daily. 30 tablet 11 11/28/2023 03/31/2024 Discontinued (Other) mupirocin 0.02 mg/mg topical ointment (1 source) RNA Synthetase Inhibitor Antibacterial Start: End: apply 15 g nasal route once daily mupirocin (BACTROBAN) 2 % ointment Apply to each nostril once daily for 10-14 days. 15 g 0 10/31/2021 11/14/2021 Comment on above: Apply to each nostri l once daily for 10-14 days. norethindrone 0.35 mg oral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 ANTIDIAB] Onset: 3 Unclassified (1 source) Low back pain, unspecified; Translations: [Low back pain, unspecified] Onset: 4 Unclassified (1 source) Cough, unspecified; Translations: [Cough, unspecified] Onset: 4 Unclassified (1 source) Cough, unspecified; Translations: [Cough, unspecified] Onset: 4 Unclassified (1 source) Personal history of other benign neoplasm; Translations: [Personal history of other benign neoplasm] Onset: 3 Urinary tract infections (20 sources) Urinary tract infectious disease; Translations: [Urinary tract infection, site not specified] 03-24-2019 Episodic Varicose veins of lower extremity (20 sources) Asymptomatic varicose veins of bilateral lower extremities; Translations: [Varicose veins of lower extremity] Onset: 2 Resolved: 2 Episodic Viral infection (20 sources) Respiratory syncytial virus infection; Translations: [Other specified viral diseases] 06-29-2022 Episodic Past or Other Problems Problem Classification Problem Date Documented Date Episodic/Chronic Abdominal pain (20 sources) Pain in pelvis; Translations: [Pelvic and perineal pain] Onset: 04-08-2023 01-29-2020 Episodic Administrative/social admission (1 source) Dietary counseling and surveillance; Translations: [Dietary counseling and surveillance] Onset: 09-02-2023 Episodic Blindness and vision defects (8 sources) Bilateral regular astigmatism; Translations: [Regular astigmatism, bilateral] Onset: 12-23-2023 Episodic Calculus of urinary tract (20 sources) Kidney stone; Translations: [Calculus of kidney] Onset: 10-09-2022 Resolved: 07-24-2012 05-02-2022 Episodic Comment on above: LEFT Complications of surgical procedures or medical care (20 sources) Post-operative wound cellulitis; Translations: [Infection following a procedure, other surgical site, initial encounter] Onset: 11-04-2022 11-02-2022 Episodic Conditions associated with dizziness or vertigo (7 sources) Dizziness; Translations: [Dizziness and giddiness] Onset: 09-10-2023 Episodic Immunizations and screening for infectious disease (1 source) Encounter for screening for other viral diseases; Translations: [Encounter for screening for other viral diseases] Onset: 11-14-2023 Episodic Joint disorders and dislocations; trauma-related (20 sources) Dislocation of tarsometatarsal joint of unspecified foot, initial encounter; Translations: [Closed dislocation of tarsometatarsal (joint)] Onset: 06-03-2015 06-03-2015 Episodic Lymphadenitis (1 source) Generalized enlarged lymph nodes Onset: 08-15-2021 Resolved: 08-15-2021 Episodic Nutritional deficiencies (20 sources) Cobalamin deficiency; Translations: [Deficiency of other specified B group vitamins] Onset: 06-13-2021 Resolved: 03-08-2022 Episodic Other connective tissue disease (20 sources) Pain in right foot; Translations: [Pain in right foot] Onset: 06-03-2015 06-03-2015 Episodic Other connective tissue disease (20 sources) Dysfunction of posterior tibial tendon; Translations: [Posterior tibial tendinitis, unspecified leg] Onset: 06-23-2015 06-23-2015 Episodic Other connective tissue disease (6 sources) Pain in left hand; Translations: [Pain in limb] Onset: 04-04-2023 11-03-2022 Episodic Other connective tissue disease (2 sources) Pain in right hand; Translations: [Pain in right hand] Onset: 04-04-2023 Episodic Other connective tissue disease (1 source) Posterior tibial tendinitis, unspecified leg; Translations: [PTTD (posterior tibial tendon dysfunction)] Onset: 06-23-2015 Episodic Other connective tissue disease (1 source) Myalgia, unspecified site; Translations: [Myalgia] Onset: 10-22-2023 Episodic Other diseases of kidney and ureters (1 source) Crossing vessel and stricture of ureter without hydronephrosis; Translations: [CROSSING VES STRICT URETER W/O HN] Onset: 09-05-2022 Episodic Other disorders of stomach and duodenum (1 source) Gastroparesis Onset: 04-02-2022 Resolved: 04-02-2022 Episodic Other ear and sense organ disorders (2 sources) Otalgia, bilateral Onset: 08-15-2021 Resolved: 03-01-2022 Episodic Other ear and sense organ disorders (1 source) Tinnitus, bilateral; Translations: [Tinnitus, bilateral] Onset: 09-10-2023 Episodic Other eye disorders (5 sources) Disorder of lacrimal gland; 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] Onset: 12-23-2023 12-23-2023 Episodic Other inflammatory condition of skin (1 source) Seborrhea capitis Onset: 08-15-2021 Resolved: 08-15-2021 Episodic Other nervous system disorders (2 sources) Anesthesia of skin; Translations: [Anesthesia of skin] Onset: 05-16-2023 Episodic Other nervous system disorders (2 sources) Paresthesia of skin; Translations: [Paresthesia of skin] Onset: 05-16-2023 Episodic Other nervous system disorders (2 sources) Other acute postprocedural pain; Translations: [Other acute postprocedural pain] Onset: 11-09-2022 Episodic Other nervous system disorders (1 source) Unspecified disturbances of skin sensation; Translations: [Disturbance of skin sensation] Onset: 10-15-2023 Episodic Other non-traumatic joint disorders (20 sources) Ankle pain; Translations: [Pain in right ankle and joints of right foot] Onset: 06-03-2015 06-03-2015 Episodic Other skin disorders (1 source) Localized swelling, mass and lump, neck Onset: 01-05-2022 Resolved: 01-05-2022 Episodic Other upper respiratory disease (1 source) Unspecified disorder of nose and nasal sinuses; Translations: [Nose trouble] Onset: 10-08-2023 Episodic Residual codes; unclassified (1 source) Body fluid retention Resolved: 07-24-2012 01-26-2019 Episodic Residual codes; unclassified (2 sources) Pain; Translations: [Pain] Onset: 07-23-2023 Episodic Residual codes; unclassified (2 sources) Pain, unspecified; Translations: [Pain, unspecified] Onset: 06-19-2023 Episodic Residual codes; unclassified (1 source) Other specified postprocedural states; Translations: [Status post left foot surgery] Onset: 10-22-2023 Episodic Spondylosis; intervertebral disc disorders; other back problems (20 sources) Low back pain; Translations: [Low back pain] Onset: 06-27-2021 Resolved: 03-08-2022 Episodic Unclassified (2 sources) Cough R05.9 Onset: 09-11-2021 Resolved: 09-11-2021 Unclassified (2 sources) Acute cough R05.1 Unclassified (1 source) Subacute cough R05.2 Unclassified (1 source) Methicillin resistant Staphylococcus aureus (organism) Resolved: 07-24-2012 01-26-2019 Comment on above: STATED WAS 8 MONTHS AGO STATED HAD RT BREAST INFECTION WAS TREATED BY HER DR WITH ORAL ANTIBIOTICS SAID IT WAS CULTURED Unclassified (6 sources) Other low back pain M54.59 Results Test Name Value Interpretation Reference Range Facility Bacteria Ur Culton Bacteria identified Cx Nom (U) ORGANISM ID: 1 10,000 -<50,000 CFU/ml Normal urogenital makenzie Normal [facility] Comment on above: Performed By: #### 6 30-4 ####[facility] [id number] [place] [id number] [place] CNOVon 03-31-2024 CNOV Office Visit (UROLLN ) LISA FERNANDO ([id number]) 1975 F Date Time Provider Department 03/31/24 5:00 PM JOHNNY SPIVEY During your visit today, we recorded the following information about you: Pulse Blood pressure Weight 68/minute 106/38 100.7 kg Johnny Spivey, 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 03/31/2024 7:38 PM Signed Lisa Linda Fernando [address] [facility] [address] HISTORY OF PRESENT ILLNESS: Seen 01/27/24 for KEV, UTI, kidney stones Denies gross hematutia Denies burning with urination C/O of constipation have BM Q 2-3 day Pt state that myrbetric did not help Pt stated that was unable to do recommended PTPF due work schedule C/O urine sprays Drink 3 16 oz water daily Drink energy Drinks Pt take showers and use perfume soaps and nevin washes GLU=992 Ml US of kidney 09/10/23 IMPRESSION: 1. No obstructive nephrolithiasis in the lower pole of the left kidney. 2. No sonographic evidence of right-sided renal calculus. No hydronephrosis in either kidney. 3. Grossly unremarkable sonographic appearance of the urinary bladder. Coming for KEV, UTI, kidney stones (new finding today 03/31/24) Denies gross hematuria Denies burning with urination Denies any kidney stone pain at present C/O of urinary incontinence Pt stated that cont to have high energy drink intake PVR=2 ML Location: KEV, UTI, kidney stones Pain Character: none Severity Scale: see lab, see X-rays Duration: few years PAST MEDICAL HISTORY 01/2020: H/O abdominal hysterectomy PAST SURGICAL HISTORY No date: TOTAL ABDOM HYSTERECTOMY No family history on file. Social History Tobacco Use Smoking status: Never Smokeless tobacco: Never Vaping Use Vaping status: Never Used Substance Use Topics Alcohol use: Yes Drug use: Never MEDICATIONS: Current Outpatient Medications Medication Sig nabumetone (RELAFEN) 500 mg tablet 500 mg. pregabalin (LYRICA) 100 mg capsule Take 100 mg by mouth two times a day. lumateperone (CAPLYTA) 10.5 mg capsule Take 10.5 mg by mouth once daily. pramipexole (MIRAPEX) 0.125 mg tablet TAKE 1 TABLET BY MOUTH 2 TO 3 HOURS BEFORE BEDTIME cholecalciferol, Vitamin D3, (VITAMIN D3) 1,250 mcg (50,000 unit) cap capsule Take 1 capsule by mouth one time a week. cyanocobalamin (VITAMIN B-12) 1,000 mcg tab Take 1,000 mcg by mouth once daily. rimegepant sulfate (NURTEC ODT ORAL) Take 75 mg by mouth. glipiZIDE (GLUCOTROL) 5 mg tablet Take 5 mg by mouth daily before breakfast. dulaglutide (TRULICITY) 4.5 mg/0.5 mL pen injector Inject 4.25 mg subcutaneously one time a week. carBAMazepine (TEGRETOL) 200 mg tablet Take 200 mg by mouth twice daily. DULoxetine (CYMBALTA) 60 mg capsule Take 60 mg by mouth. ibuprofen (MOTRIN) 800 mg tablet carbidopa-levodopa (SINEMET 10-100) 10-100 mg per tablet 1 tablet daily at bedtime. mirabegron (MYRBETRIQ) 50 mg Tb24 Take 1 tablet by mouth once daily. polyethylene glycol 3350 (MIRALAX) 17 gram/dose powder Take 17 g by mouth once daily as needed. methocarbamol (ROBAXIN) 750 mg tablet Take 750 mg by mouth as needed. No current facility-administered medications for this visit. ALLERGY: ALLERGIES Allergen Reactions Aloe Vera Other: See Comments Baclofen Other: See Comments, Swelling Cephalexin GI Upset, Vomiting Ciprofloxacin Other: See Comments Cyclobenzaprine Hives, Unknown Gabapentin Hives, Unknown, Other: See Comments Menthol Other: See Comments Metformin Hives Morphine GI Upset Nsaids (Non-Steroid* Hives, Rash, Other: See Comments Azithromycin Itching, Rash REVIEW OF SYSTEMS GENERAL: No fever, no fatigue and no weight loss. HEAD AND NECK: No headache, no blurred vision and no hearing loss. CARDIOVASCULAR: No chest pain, no palpitations and no leg edema. RESPIRATORY: No cough, wheezing and no shortness of breath. : As indicated in HPI. GI: No epigastric discomfort, no blood in stool and no changes in bowel habits. MUSCLOSKELETAL: No neck pain, no back anin and no joint pain. SKIN: No varicose veins, no rash and no abnormal itching. NEUROLOGICAL: No numbness, no seizures and no tremor. BLOOD: No ekimosis, no hematomas or no bleeding from the gums. ========= PHYSICAL EXAM: ========= VITALS: BP (!) 106/38 Pulse 68 Wt 100.7 kg (222 lb) LMP (LMP Unknown) BMI 39.33 kg/m? GENERAL: Alert, oriented and in no distress. HEAD: Conjuctiva: no palor Sclera: no jaundice NECK: No enlarged thyroid, no palpable lymph nodes, and no engorged neck veins. CHEST: Bilateral symetrical, no crepitations. ABDOMEN: Soft, non tender with no masses or organomegaly. No CVA tenderness. EXTREMITIES: No leg edema, No joint swelling GENITALIA: Deferred IMPRESSION: (Diagnostic Possibilities): Stress incontinence HST kidne (more content not included)... Normal [facility] FE PROon 03-31-2024 % Iron Saturation 20.7 % Normal 20-50 [facility] Comment on above: Performed By: #### L IPASE, BMP, CBC, HEPATIC #### [facility] [address] Total Iron Binding Capacity 295 ug/dL Normal 255-450 [facility] Comment on above: Performed By: #### L IPASE, BMP, CBC, HEPATIC #### [facility] [address] Ferritin [Mass/volume] in Se rum or PlasmaOrdered By: Simone Barnes on 03-31-2024 Ferritin [Mass/Vol] 111.0 ng/mL Normal 11.0-306.8 [facility] Comment on above: Result Comment: PERF ORMED BY: [place] [address] PATHOLOGIST ALUMINUM CONTAINER TESTER MATEO ROJAS M.D. Performed By: #### L IPASE, BMP, CBC, HEPATIC #### [facility] [address] Iron [Mass/volume] in Serum or PlasmaOrdered By: Simone Barnes on 03-31-2024 Iron [Mass/Vol] 61 ug/dL Normal 50-212 [facility] Comment on above: Performed By: #### L IPASE, BMP, CBC, HEPATIC #### [facility] [address] [place] [address] [place] Iron binding capacity [Mass/ volume] in Serum or PlasmaOrdered By: Simone Barnes on 03-31-2024 Iron binding capacity [Mass/Vol] 295 ug/dL 255-450 [facility] Iron saturation [Mass Fracti on] in Serum or PlasmaOrdered By: Simone Barnes on 03-31-2024 Iron saturation [Mass fraction] 20.7 % 20-50 [facility] Transferrin [Mass/volume] in Serum or PlasmaOrdered By: Simone Barnes on 03-31-2024 Transferrin [Mass/Vol] 211 mg/dL Normal 203-362 [facility] Comment on above: Performed By: #### L IPASE, BMP, CBC, HEPATIC #### [facility] [address] Urinalysis complete panel (U )on 03-31-2024 Bacteria LM.HPF (Urine sed) [#/Area] Negative Normal Negative [facility] Comment on above: Order Comment: Speci men Type: URINE SPECIMEN Ordering Facility: [facility] Address: [address] [place] [address] Performed By: #### 2 4356-8 #### [facility] CLIA [id number] [address] [place] [address] [place] Bilirubin Ql (U) Negative Normal Negative [facility] Comment on above: Order Comment: Speci men Type: URINE SPECIMEN Ordering Facility: [facility] Address: [address] [place] [address] Performed By: #### 2 4356-8 #### [facility] CLIA [id number] [address] [place] [address] [place] Clarity (Unsp spec) Clear Normal Clear [facility] Comment on above: Order Comment: Speci men Type: URINE SPECIMEN Ordering Facility: [facility] Address: [address] [place], [place] [id number] Performed By: #### 2 4356-8 #### [facility] CLIA [id number] [address] [place] [address] [place] Color (U) Yellow Normal Yellow [facility] Comment on above: Order Comment: Speci men Type: URINE SPECIMEN Ordering Facility: [facility] Address: [address] [place] [address] Performed By: #### 2 4356-8 #### [facility] CLIA [id number] [address] [place] [address] [place] Epithelial cells LM.HPF (Urine sed) [#/Area] None Seen Normal [facility] Comment on above: Order Comment: Speci men Type: URINE SPECIMEN Ordering Facility: [facility] Address: [address] [place] [address] Performed By: #### 2 4356-8 #### [facility] CLIA [id number] [address] [place] [address] [place] Glucose Test strip (U) [Mass/Vol] Negative Normal Negative [facility] Comment on above: Order Comment: Speci men Type: URINE SPECIMEN Ordering Facility: [facility] Address: [address] [place] [address] Performed By: #### 2 4356-8 #### [facility] CLIA [id number] [address] [place] [address] [place] Hemoglobin Ql (U) Negative Normal Negative [facility] Comment on above: Order Comment: Speci men Type: URINE SPECIMEN Ordering Facility: [facility] Address: [address] [place] [address] Performed By: #### 2 4356-8 #### [facility] CLIA [id number] [address] [place] [address] [place] Hyaline casts (Urine sed) [#/Area] 0 /[LPF] Normal 0 /LPF [facility] Comment on above: Order Comment: Speci men Type: URINE SPECIMEN Ordering Facility: [facility] Address: [address] [place] [address] Performed By: #### 2 4356-8 #### [facility] CLIA [id number] [address] [place] [address] [place] Ketones Ql (U) Trace Abnormal Negative [facility] Comment on above: Order Comment: Speci men Type: URINE SPECIMEN Ordering Facility: [facility] Address: [address] [place] [address] Performed By: #### 2 4356-8 #### [facility] CLIA [id number] [address] [place] [address] [place] Leukocyte esterase Test strip Ql (U) Negative Normal Negative [facility] Comment on above: Order Comment: Speci men Type: URINE SPECIMEN Ordering Facility: [facility] Address: [address] [place] [address] Performed By: #### 2 4356-8 #### [facility] CLIA [id number] [address] [place] [address] [place] Nitrite Ql (U) Negative Normal Negative [facility] Comment on above: Order Comment: Speci men Type: URINE SPECIMEN Ordering Facility: [facility] Address: [address] [place] [address] Performed By: #### 2 4356-8 #### [facility] CLIA [id number] [address] [place] [address] [place] pH (U) 6.5 [pH] Normal <8.5 [facility] Comment on above: Order Comment: Speci men Type: URINE SPECIMEN Ordering Facility: [facility] Address: [address] [place] [address] Performed By: #### 2 4356-8 #### [facility] CLIA [id number] [address] [place] [address] [place] Protein (U) [Mass/Vol] Trace Abnormal Negative [facility] Comment on above: Order Comment: Speci men Type: URINE SPECIMEN Ordering Facility: [facility] Address: [address] [place] [address] Performed By: #### 2 4356-8 #### [facility] CLIA [id number] [address] [place] [address] [place] RBC LM.HPF (Urine sed) [#/Area] 3-5 /HPF Abnormal 0-2 /HPF [facility] Comment on above: Order Comment: Speci men Type: URINE SPECIMEN Ordering Facility: [facility] Address: [address] [place] [address] Performed By: #### 2 4356-8 #### [facility] CLIA [id number] [address] [place] [address] [place] Specific gravity (U) [Rel density] 1.031 High 1.005-1.030 [facility] Comment on above: Order Comment: Speci men Type: URINE SPECIMEN Ordering Facility: [facility] Address: [address] [place] [address] Performed By: #### 2 4356-8 #### [facility] CLIA [id number] [address] [place] [address] [place] Urobilinogen Ql (U) 0.2 EU/dL Normal 0.2-1.0 EU/dL [facility] Comment on above: Order Comment: Speci men Type: URINE SPECIMEN Ordering Facility: [facility] Address: [address] [place] [address] Performed By: #### 2 4356-8 #### [facility] CLIA [id number] [address] [place] [address] [place] WBC LM.HPF (Urine sed) [#/Area] 0-5 /HPF Normal 0-5 /HPF [facility] Comment on above: Order Comment: Speci men Type: URINE SPECIMEN Ordering Facility: [facility] Address: [address] [place] [address] Performed By: #### 2 4356-8 #### [facility] CLIA [id number] [address] [place] [address] [id number] [place] [address] [place] MR lumbar spine wo conon MR lumbar spine wo con [facility] [address] [place] [address] [place] [address] MRI Report Signed Patient: Lisa Fernando MR#: [id number] : 1975 Acct:[id number] Age/Sex: 48 / F ADM Date: 03/11/24 Loc: MR Room: Type: [facility] Attending Dr: Simone URIAS Copies to: ADONAY West Ordering Provider: ADONAY West Date of Service: 03/11/24 MR/MR lumbar spine wo con: M54.16, M47.816 M47.816 MRI LUMBAR SPINE WITHOUT CONTRAST COMPARISON: 01/15/2023 and plain films 10/27/2023 CLINICAL DATA: Chronic back pain with bilateral lower extremity radiculopathy. No injury. Multiecho imaging in the axial and sagittal plane was performed without contrast. Alignment is maintained on the sagittal sequences. No acute compression fractures or marrow edema are seen. The conus medullaris is within normal limits for caliber, position and signal intensity. No paraspinal soft tissue abnormalities are noted. At T12-L1, there is no disc disease or stenosis. At L1-2, there is minor loss of disc height is slight disc desiccation. There is no disc bulge or herniation. No stenosis is noted. At L2-3, no developing MRI abnormalities are identified. At L3-4, the disc is within normal limits for height and signal. There is mild annular disc bulging, greater toward the neural foramen. There is slight facet and ligamentous hypertrophy. There is no significant central stenosis. There is minimal inferior foraminal encroachment. At L4-5, the disc is normal height and signal intensity. There is minor annular disc bulging toward the neural foramen. There is moderate facet and ligamentous hypertrophy. A tiny subchondral cyst is associated with the facets on the left laterally. There is continued mild, predominantly posterior thecal sac effacement. There is mild to moderate foraminal encroachment, left greater than right. At the lumbosacral junction, the disc is within normal for height and signal intensity. There is continued minor annular disc bulging, slightly asymmetric in the right parasagittal region. There is prominent facet hypertrophy and thickening of ligamentum flavum. There is only subtle thecal sac effacement. There is mild left foraminal encroachment. The right neural foramen is patent. MR/MR lumbar spine wo con IMPRESSION: MILD DISCOVERTEBRAL DEGENERATIVE CHANGES, DESCRIBED WHICH ARE SIMILAR TO THE PRIOR. Impression dictated by: Liz Rubi M.D.03/11/2024 12:37 PM Dictation [facility] Transcribed By: HARLAN 03/11/24 1237 Dictated By: Liz Rubi MD 03/11/24 1229 Signed By: 03/11/24 1237 Normal [facility] Chuck 02-27-2024 CNPN Telephone (GENBMI) LISA FERNANDO ([id number]) 1975 F Date Time Provider Department 02/27/24 SUGEY BECKETT During your visit today, we recorded the following information about you: Sugey Beckett, AMARJIT 02/27/2024 2:29 PM Signed [facility] C[facility] COORDINATION TELEPHONE ENCOUNTER LATE ENTRY 02/24 Spoke with patient upon receiving message from Dr. Morley's office, referring patient for bariatric surgery consult with Dr. Munguia. Directed patient to BMI website where she may register for program; provided brief introduction. Patient appreciative. She stated intent to review website at her leisure and will call with any questions. Will follow and remain available to help as needed. Allergies As of Date: 02/27/2024 Noted Allergy Reaction ALOE VERA 04/02/2012 14 - Other: See Comments BACLOFEN 01/01/2020 14 - Other: See Comments 7 - Swelling CEPHALEXIN 04/02/2012 8 - GI Upset 11 - Vomiting CIPROFLOXACIN 04/02/2012 14 - Other: See Comments CYCLOBENZAPRINE 11/11/2013 4 - Hives 16 - Unknown GABAPENTIN 04/02/2012 4 - Hives 16 - Unknown 14 - Other: See Comments MENTHOL 04/02/2012 14 - Other: See Comments METFORMIN 11/11/2013 4 - Hives MORPHINE 08/27/2023 8 - GI Upset NSAIDS (NON-STEROIDAL ANTI-INFLAM*01/04/2019 4 - Hives 2 - Rash 14 - Other: See Comments AZITHROMYCIN 04/02/2012 9 - Itching 2 - Rash Date Reviewed: 01/28/2024 Reviewed by: Lyla Hyatt MA - Fully Assessed Reason for Visit: Outside Referral Requests [4103] Prescriptions as of 02/27/2024 - nabumetone (RELAFEN) 500 mg tablet 500 mg. - pregabalin (LYRICA) 100 mg capsule Take 100 mg by mouth two times a day. - mirabegron (MYRBETRIQ) 50 mg Tb24 Take 1 tablet by mouth once daily. - polyethylene glycol 3350 (MIRALAX) 17 gram/dose powder Take 17 g by mouth once daily as needed. - lumateperone (CAPLYTA) 10.5 mg capsule Take 10.5 mg by mouth once daily. - pramipexole (MIRAPEX) 0.125 mg tablet TAKE 1 TABLET BY MOUTH 2 TO 3 HOURS BEFORE BEDTIME - cholecalciferol, Vitamin D3, (VITAMIN D3) 1,250 mcg (50,000 unit) cap capsule Take 1 capsule by mouth one time a week. - cyanocobalamin (VITAMIN B-12) 1,000 mcg tab Take 1,000 mcg by mouth once daily. - rimegepant sulfate (NURTEC ODT ORAL) Take 75 mg by mouth. - glipiZIDE (GLUCOTROL) 5 mg tablet Take 5 mg by mouth daily before breakfast. - dulaglutide (TRULICITY) 4.5 mg/0.5 mL pen injector Inject 4.25 mg subcutaneously one time a week. - methocarbamol (ROBAXIN) 750 mg tablet Take 750 mg by mouth as needed. - carBAMazepine (TEGRETOL) 200 mg tablet Take 200 mg by mouth twice daily. - DULoxetine (CYMBALTA) 60 mg capsule Take 60 mg by mouth. - ibuprofen (MOTRIN) 800 mg tablet - carbidopa-levodopa (SINEMET 10-100) 10-100 mg per tablet 1 tablet daily at bedtime. Problem List As Of Date 02/27/2024 Noted Resolved NO SHOW [759378] 12/09/2014 Right ankle pain [M25.571] 06/03/2015 Pain in right foot [M79.671] 06/03/2015 Lisfranc dislocation [S93.326A] 06/03/2015 DJD (degenerative joint disease), ankle and mae*06/23/2015 PTTD (posterior tibial tendon dysfunction) [M76*06/23/2015 Morbid obesity (HCC) [E66.01] 06/23/2015 Dry eye syndrome of bilateral lacrimal glands [*12/23/2023 Type 2 diabetes mellitus without retinopathy (H*12/23/2023 Bilateral presbyopia [H52.4] 12/23/2023 Encounter Status:Closed by SUGEY BECKETT on 02/27/24 Normal [facility] Bacteria Ur Culton Bacteria identified Cx Nom (U) ORGANISM ID: 1 <10,000 CFU/ml Normal urogenital makenzie Normal [facility] Comment on above: Performed By: #### 6 30-4 ####[facility] LABCLIA [id number] [address] [place] CNOVon 01-28-2024 CNOV Office Visit (UROLLN ) LISA FERNANDO ([id number]) 1975 F Date Time Provider Department 01/28/24 4:30 PM JOHNNY SPIVEY During your visit today, we recorded the following information about you: Pulse Respiration Blood pressure 93/minute 16/minute 105/59 Johnny Spivey, HOUSE FATHER.[facility] 01/28/2024 6:04 PM Signed Lisa Fernando [address] [place] [address] HISTORY OF PRESENT ILLNESS: Seen 11/28/[address] Castro For stress incontinence US of kidney 09/10/23 IMPRESSION: 1. No obstructive nephrolithiasis in the lower pole of the left kidney. 2. No sonographic evidence of right-sided renal calculus. No hydronephrosis in either kidney. 3. Grossly unremarkable sonographic appearance of the urinary bladder. Coming for KEV, UTI, kidney stones (new finding today 01/27/24) Denies gross hematutia Denies burning with urination C/O of constipation have BM Q 2-3 day Pt state that myrbetric did not help Pt stated that was unable to do recommended PTPF due work schedule C/O urine sprays Drink 3 16 oz water daily VWX=537 Ml Drink energy Drinks Pt take showers and use perfume soaps and nevin washes A1C 12/11/23=5.1 (per pt outside lab Culture 10/14/23=>=100,000 CFU/ml Proteus mirabilis Abnormal Placed on macrobid by Dr. Hall Location: KEV, UTI, kidney stones Pain Character: none Severity Scale: see lab, see X-rays Duration: few years PAST MEDICAL HISTORY Diagnosis Date H/O abdominal hysterectomy 01/2020 PAST SURGICAL HISTORY Procedure Laterality Date TOTAL ABDOM HYSTERECTOMY No family history on file. Social History Tobacco Use Smoking status: Never Smokeless tobacco: Never Vaping Use Vaping Use: Never used Substance Use Topics Alcohol use: Yes Drug use: Never MEDICATIONS: Current Outpatient Medications Medication Sig nabumetone (RELAFEN) 500 mg tablet 500 mg. pregabalin (LYRICA) 100 mg capsule Take 100 mg by mouth two times a day. lumateperone (CAPLYTA) 10.5 mg capsule Take 10.5 mg by mouth once daily. pramipexole (MIRAPEX) 0.125 mg tablet TAKE 1 TABLET BY MOUTH 2 TO 3 HOURS BEFORE BEDTIME cholecalciferol, Vitamin D3, (VITAMIN D3) 1,250 mcg (50,000 unit) cap capsule Take 1 capsule by mouth one time a week. cyanocobalamin (VITAMIN B-12) 1,000 mcg tab Take 1,000 mcg by mouth once daily. rimegepant sulfate (NURTEC ODT ORAL) Take 75 mg by mouth. glipiZIDE (GLUCOTROL) 5 mg tablet Take 5 mg by mouth daily before breakfast. dulaglutide (TRULICITY) 4.5 mg/0.5 mL pen injector Inject 4.25 mg subcutaneously one time a week. carBAMazepine (TEGRETOL) 200 mg tablet Take 200 mg by mouth twice daily. DULoxetine (CYMBALTA) 60 mg capsule Take 60 mg by mouth. ibuprofen (MOTRIN) 800 mg tablet carbidopa-levodopa (SINEMET 10-100) 10-100 mg per tablet 1 tablet daily at bedtime. mirabegron (MYRBETRIQ) 50 mg Tb24 Take 1 tablet by mouth once daily. (Patient not taking: Reported on 01/28/2024) polyethylene glycol 3350 (MIRALAX) 17 gram/dose powder Take 17 g by mouth once daily as needed. (Patient not taking: Reported on 01/28/2024) methocarbamol (ROBAXIN) 750 mg tablet Take 750 mg by mouth as needed. (Patient not taking: Reported on 01/28/2024) No current facility-administered medications for this visit. ALLERGY: ALLERGIES Allergen Reactions Aloe Vera Other: See Comments Baclofen Other: See Comments, Swelling Cephalexin GI Upset, Vomiting Ciprofloxacin Other: See Comments Cyclobenzaprine Hives, Unknown Gabapentin Hives, Unknown, Other: See Comments Menthol Other: See Comments Metformin Hives Morphine GI Upset Nsaids (Non-Steroid* Hives, Rash, Other: See Comments Azithromycin Itching, Rash REVIEW OF SYSTEMS GENERAL: No fever, no fatigue and no weight loss. HEAD AND NECK: No headache, no blurred vision and no hearing loss. CARDIOVASCULAR: No chest pain, no palpitations and no leg edema. RESPIRATORY: No cough, wheezing and no shortness of breath. : As indicated in HPI. GI: No epigastric discomfort, no blood in stool and no changes in bowel habits. MUSCLOSKELETAL: No neck pain, no back anin and no joint pain. SKIN: No varicose veins, no rash and no abnormal itching. NEUROLOGICAL: No numbness, no seizures and no tremor. BLOOD: No ekimosis, no hematomas or no bleeding from the gums. ========= PHYSICAL EXAM: ========= VITALS: BP 105/59 Pulse 93 Resp 16 LMP (LMP Unknown) GENERAL: Alert, oriented and in no distress. HEAD: Conjuctiva: no palor Sclera: no jaundice NECK: No enlarged thyroid, no palpable lymph nodes, and no engorged neck veins. CHEST: Bilateral symetrical, no crepitations. ABDOMEN: Soft, non tender with no masses or organomegaly. No CVA tenderness. EXTREMITIES: No leg edema, No joint swelling GENITALI (more content not included)... Normal [facility] Urinalysis complete panel (U )on 01-28-2024 Bacteria LM.HPF (Urine sed) [#/Area] Negative Normal Negative [facility] Comment on above: Order Comment: Speci men Type: URINE SPECIMENOrdering Facility: [facility] Address: [address] [place] [address] Performed By: #### 2 4356-8 ####[facility] LABCLIA [id number] [place] [address] [place] Bilirubin Ql (U) Negative Normal Negative [facility] Comment on above: Order Comment: Speci men Type: URINE SPECIMENOrdering Facility: [facility] Address: [address] [place] [address] Performed By: #### 2 4356-8 ####[facility] LABCLIA [id number] [place] [address] [place] Clarity (Unsp spec) Clear Normal Clear [facility] Comment on above: Order Comment: Speci men Type: URINE SPECIMENOrdering Facility: [facility] Address: [address] [place] [address] Performed By: #### 2 4356-8 ####[facility] LABCLIA [id number] [place] [address] [place] [facility] Color (U) Yellow Normal Yellow [facility] Comment on above: Order Comment: Speci men Type: URINE SPECIMENOrdering Facility: [facility] Address: [address] [place] [address] Performed By: #### 2 4356-8 ####[facility] LABCLIA [id number] [place] [address] [place] Epithelial cells LM.HPF (Urine sed) [#/Area] None Seen Normal [facility] Comment on above: Order Comment: Speci men Type: URINE SPECIMENOrdering Facility: [facility] Address: [address] [place] [address] Performed By: #### 2 4356-8 ####[facility] LABCLIA [id number] [place] [address] [place] [facility] Glucose Test strip (U) [Mass/Vol] Negative Normal Negative [facility] Comment on above: Order Comment: Speci men Type: URINE SPECIMENOrdering Facility: [facility] Address: [address] [place] [address] Performed By: #### 2 4356-8 ####[facility] LABCLIA [id number] [place] [address] [place] Hemoglobin Ql (U) Negative Normal Negative [facility] Comment on above: Order Comment: Speci men Type: URINE SPECIMENOrdering Facility: [facility] Address: [address] [place] [address] Performed By: #### 2 4356-8 ####[facility] LABCLIA [id number] [place] [address] [place] Hyaline casts (Urine sed) [#/Area] 1-3 /LPF Abnormal 0 /LPF [facility] Comment on above: Order Comment: Speci men Type: URINE SPECIMENOrdering Facility: [facility] Address: [address] [place] [address] Performed By: #### 2 4356-8 ####[facility] LABCLIA [id number] [place] [address] [place] Ketones Ql (U) Negative Normal Negative [facility] Comment on above: Order Comment: Speci men Type: URINE SPECIMENOrdering Facility: [facility] Address: [address] [place] [address] Performed By: #### 2 4356-8 ####[facility] LABCLIA [id number] [place] [address] [place] Leukocyte esterase Test strip Ql (U) Negative Normal Negative [facility] Comment on above: Order Comment: Speci men Type: URINE SPECIMENOrdering Facility: [facility] Address: [address] [place] [address] Performed By: #### 2 4356-8 ####[facility] LABCLIA [id number] [place] [address] [place] Nitrite Ql (U) Negative Normal Negative [facility] Comment on above: Order Comment: Speci men Type: URINE SPECIMENOrdering Facility: [facility] Address: [address] [place] [address] Performed By: #### 2 4356-8 ####[facility] LABCLIA [id number] [place] [address] [place] pH (U) 7.0 [pH] Normal <8.5 [facility] Comment on above: Order Comment: Speci men Type: URINE SPECIMENOrdering Facility: [facility] Address: [address] [place] [address] Performed By: #### 2 4356-8 ####[facility] LABCLIA [id number] [place] [address] [place] Protein (U) [Mass/Vol] Negative Normal Negative [facility] Comment on above: Order Comment: Speci men Type: URINE SPECIMENOrdering Facility: [facility] Address: [address] [place] [address] Performed By: #### 2 4356-8 ####[facility] LABIA [id number] [place] [address] [place] RBC LM.HPF (Urine sed) [#/Area] 0-2 /HPF Normal 0-2 /HPF [facility] Comment on above: Order Comment: Speci men Type: URINE SPECIMENOrdering Facility: [facility] Address: [address] [place] [address] Performed By: #### 2 4356-8 ####[facility] LABIA [id number] [place] [address] [place] Specific gravity (U) [Rel density] 1.013 Normal 1.005-1.030 [facility] Comment on above: Order Comment: Speci men Type: URINE SPECIMENOrdering Facility: [facility] Address: [address] [place] [address] Performed By: #### 2 4356-8 ####[facility] LABIA [id number] [place] [address] [place] Urobilinogen Ql (U) 0.2 EU/dL Normal 0.2-1.0 EU/dL [facility] Comment on above: Order Comment: Speci men Type: URINE SPECIMENOrdering Facility: [facility] Address: [address] [place] [address] Performed By: #### 2 4356-8 ####[facility] LABIA [id number] [place] [address] [place] WBC LM.HPF (Urine sed) [#/Area] 0-5 /HPF Normal 0-5 /HPF [facility] Comment on above: Order Comment: Speci men Type: URINE SPECIMENOrdering Facility: [facility] Address: [address] [place] [address] Performed By: #### 2 4356-8 ####[facility] LABCLIA [id number] [id number] [address] [place] MR ANKLE LEFT WO IV CONTRAST on 01-22-2024 MR ANKLE LEFT WO IV CONTRAST EXAM: MR ANKLE LEFT WO IV CONTRAST HISTORY: Medial and lateral ankle pain TECHNIQUE: Multisequence multiplanar MRI of the ankle was performed without contrast COMPARISON: None available FINDINGS: Mild Achilles tendinosis the visualized plantar fascia is intact and is without thickening or nodularity. Moderate plantar calcaneal enthesophyte. The tibialis posterior, flexor hallucis longus, and flexor digitorum longus tendons are intact. Mild tibialis posterior tendinosis. No space-occupying lesion within the tarsal tunnel. Peroneus longus and peroneus brevis tendons are intact. Mild peroneus longus tendinosis. Extensor tendons are intact. The anterior and posterior tibiofibular ligaments, posterior talofibular ligament, and calcaneofibular ligament are intact. Full-thickness tear of the anterior talofibular ligament. Superficial and deep fibers of the deltoid ligament are intact. Spring ligament is intact. Partial obliteration of the sinus tarsi fat. Mild degenerative changes of the hindfoot and moderate degenerative changes of the midfoot. No ankle joint effusion. No evidence of fracture or stress reaction of the visualized bones. Mild subcutaneous soft tissue edema. IMPRESSION: Full-thickness tear of the anterior talofibular ligament. Mild tibialis posterior tendinosis. Mild peroneus longus tendinosis. Partial obliteration of the sinus tarsi fat suggesting tarsal sinus ligamentous complex injury Degenerative changes of the midfoot and hindfoot. ELECTRONICALLY SIGNED BY: Holland Tse, DO Normal Not Available Chlamydia trachomatis DNA [P resence] in Specimen by DEBBIE with probe detectionOrdered By: Augustine David on 01-14-2024 C. trachomatis DNA DEBBIE+probe Ql (Unsp spec) Negative Negative [facility] Chlamydia/GC/Trich NAAon Chlamydia Trachomotis, DEBBIE Negative Normal Negative [facility] Comment on above: Order Comment: Reaso n for Exam Dysuria;Dysuria Performed By: #### L IPASE, BMP, CBC, HEPATIC #### [facility] [address] Neisseria Gonorrhoeae, DEBBIE Negative Normal Negative [facility] Comment on above: Order Comment: Reaso n for Exam Dysuria;Dysuria Performed By: #### L IPASE, BMP, CBC, HEPATIC #### [facility] [address] [place] [id number] [facility] Trichomonas DEBBIE Negative Normal Negative [facility] Comment on above: Order Comment: Reaso n for Exam Dysuria;Dysuria Result Comment: Perf ormed at: =G - [facility] [address] [id number] Steel Fabricator: Gabrielle Mack MD, Phone: [phone] PERFORMED BY: [place] [address] PATHOLOGIST ALUMINUM CONTAINER TESTER MATEO ROJAS M.D. Performed By: #### L IPASE, BMP, CBC, HEPATIC #### [facility] [address] [place] [id number] [facility] Neisseria gonorrhoeae DNA [P resence] in Specimen by DEBBIE with probe detectionOrdered By: Augustine David on 01-14-2024 N. gonorrhoeae DNA DEBBIE+probe Ql (Unsp spec) Negative Negative [facility] Trichomonas vaginalis DNA [P resence] in Specimen by DEBBIE with probe detectionOrdered By: Augustine David on 01-14-2024 T. vaginalis DNA DEBBIE+probe Ql (Unsp spec) Negative Negative [facility] Comment on above: Performed at: =G - [facility] [address] [id number] Director: Gabrielle Mack MD, Phone: [phone] Urine Cultureon 01-14-2024 Bacteria identified Cx Nom (U) Reason for Exam Dysuria;Dysuria Urine 50,000 colonies/ml mixed bacterial skin contaminants 2 Days PERFORMED BY: [place] [address] PATHOLOGIST ALUMINUM CONTAINER TESTER MATEO ROJAS M.D. Normal [facility] Comment on above: Performed By: #### L IPASE, BMP, CBC, HEPATIC #### [place] [id number] [facility] Urine culture routineOrdered By: Augustine David on 01-14-2024 Bacteria identified Cx Nom (U) 2 Days [facility] XR chest 2V*on 01-03-2024 XR chest 2V* [facility] [address] [place] [address] [place] [id number] XRay Report Signed Patient: Lisa Fernando MR#: [id number] : 1975 Acct:[id number] Age/Sex: 48 / F ADM Date: 01/03/24 Loc: ER Room: Type: [facility] ER Attending Dr: Copies to: Boston Reed PA-C Ordering Provider: Boston Reed PA-C Date of Service: 01/03/24 XR/XR chest 2V*: Back Pain/Injury Chest 2 views CLINICAL HISTORY: Congestion, shortness of breath mid chest pain. COMPARISON: Chest 10/27/2023 FINDINGS: Heart normal in size. No consolidation pneumothorax pleural effusion or free air. XR/XR chest 2V* IMPRESSION: NO ACUTE CARDIOPULMONARY ABNORMALITY. Impression dictated by: Erik Gipson Jr., D.OJeyson01/03/2024 8:58 PM Dictation Location: [place] [address] Transcribed By: [facility] 01/03/242057 Dictated By: Erik Gipson Jr, DO 01/03/242057 Signed By: 01/03/242057 Normal [facility] BACTERIAL VAGINOSIS NAATon 0 11-28-2023 Lactobacillus crispatus+gasseri+cheryl senii + Gardnerella vaginalis + Atopobium vaginae rRNA DEBBIE+probe Ql (Vag fld) Negative Normal Negative for bacterial vaginosis [facility] Comment on above: Order Comment: Speci men Type: SWABOrdering Facility: [facility] Address: [address] [place] [address] Performed By: #### C VTV, BVAMP ####[facility] LABCLIA [id number] [place] [address] [place] JAMES/TRICHOMONAS NAATon 0 11-28-2023 C. glabrata RNA DEBBIE+probe Ql (Vag fld) Negative Normal Negative for James glabrata [facility] Comment on above: Order Comment: Speci men Type: SWABOrdering Facility: [facility] Address: [address] [place] [address] Performed By: #### C VTV, BVAMP ####[facility] LABIA [id number] [place] [address] [place] James sp DNA DEBBIE+probe Ql (Vag fld) Negative Normal Negative for James species [facility] Comment on above: Order Comment: Speci men Type: SWABOrdering Facility: [facility] Address: [address] [place] [address] Performed By: #### C VTV, BVAMP ####[facility] LABIA [id number] [place] [address] [place] T. vaginalis DNA DEBBIE+probe Ql (Unsp spec) Negative Normal Negative for Trichomonas vaginalis by amplification [facility] Comment on above: Order Comment: Speci men Type: SWABOrdering Facility: [facility] Address: [address] [place] [address] Performed By: #### C VTV, BVAMP ####[facility] LABIA [id number] [place] [address] [place] CNOVon 11-28-2023 CNOV Office Visit (UROLAV ) LISA FERNANDO ([id number]) 1975 F Date Time Provider Department 11/28/23 9:00 AM JACQUI CASTRO UROGANGA During your visit today, we recorded the following information about you: Jacqui Castro MD 11/28/2023 10:46 AM Signed [facility] NEW PATIENT CLINIC NOTE SERVICE DATE: 11/27/2023 SERVICE TIME: 9:46 AM NAME: Lisa Fernando REFERRED BY: Consultation requested by Dr. Carter Hall [address] [facility] [address] for an opinion regarding stress urinary incontinence. My final recommendations will be communicated back to the requesting physician by way of shared medical record or letter via US mail. CHIEF COMPLAINT: incontience HISTORY OF PRESENT ILLNESS: Lisa Fernando is a 48 year old F P2 with PMH including asthma, OA and depression presenting with incontinence. The patient reports a lot of problems with kidney stones and incontinence. Seen by Dr. Hall for left flank pain and recurrent UTIs 10/11/23 Sx with UTI include dysuria and burning Also reports recurrent UTIs - tested and treated OSH Does not know A1c but says it was one point high Has bladder PT scheduled in February - with her work schedule Susceptibility data from last 90 days. Collected Specimen Info Organism Ampicillin Ampicillin/Sulbact Cefazolin Cefepime Ceftriaxone Ciprofloxacin Ertapenem Gentamicin Meropenem Nitrofurantoin Piperacillin/Tazobac Tobramycin Trimeth sulfameth 10/11/23 Urine Random from Urine, Midstream Clean Catch Proteus mirabilis S S S S S S S S S R S S S JOHN: Yes URGENCY: Yes UI: Yes PADS: 2-3 thick FREQUENCY: every hour, sometimes less NOCTURIA: 1 per night STRAINING TO VOID: No EMPTIES COMPLETELY: Unsure UTI: 1-2 past 12 months FLUIDS: ~50 oz water, some Sprite Caffeine: occ energy drink SEXUALLY ACTIVE: yes DYSPAREUNIA: YES PREGNANCIES: 2, Para 2, Vaginal births 1, C-sections 1 Post-menopause: yes Have you had a hysterectomy:YES Postmenopausal bleeding:Not applicable Sense of vaginal bulge:YES HEMATURIA HX: Yes STONES: Yes GI: Constipation Do you have any new weakness,balance or coordination problems:NO Do you have a history of any diagnosed back or Neurological problems:YES PAST MEDICAL HISTORY PAST MEDICAL HISTORY Diagnosis Date H/O abdominal hysterectomy 01/2020 PAST SURGICAL HISTORY PAST SURGICAL HISTORY Procedure Laterality Date TOTAL ABDOM HYSTERECTOMY FAMILY HISTORY No family history on file. SOCIAL HISTORY Social History Tobacco Use Smoking status: Never Smokeless tobacco: Never Vaping Use Vaping Use: Never used Substance Use Topics Alcohol use: Yes Drug use: Never MEDICATIONS: Current Outpatient Medications Medication Sig lumateperone (CAPLYTA) 10.5 mg capsule Take 10.5 mg by mouth once daily. pramipexole (MIRAPEX) 0.125 mg tablet TAKE 1 TABLET BY MOUTH 2 TO 3 HOURS BEFORE BEDTIME cholecalciferol, Vitamin D3, (VITAMIN D3) 1,250 mcg (50,000 unit) cap capsule Take 1 capsule by mouth one time a week. cyanocobalamin (VITAMIN B-12) 1,000 mcg tab Take 1,000 mcg by mouth once daily. rimegepant sulfate (NURTEC ODT ORAL) Take 75 mg by mouth. glipiZIDE (GLUCOTROL) 5 mg tablet Take 5 mg by mouth daily before breakfast. dulaglutide (TRULICITY) 4.5 mg/0.5 mL pen injector Inject 4.25 mg subcutaneously one time a week. methocarbamol (ROBAXIN) 750 mg tablet Take 750 mg by mouth as needed. carBAMazepine (TEGRETOL) 200 mg tablet Take 200 mg by mouth twice daily. DULoxetine (CYMBALTA) 60 mg capsule Take 60 mg by mouth. furosemide (LASIX) 40 mg tablet furosemide 40 mg tablet TAKE 1 TABLET BY MOUTH ONCE DAILY FOR 30 DAYS ibuprofen (MOTRIN) 800 mg tablet carbidopa-levodopa (SINEMET 10-100) 10-100 mg per tablet 1 tablet daily at bedtime. No current facility-administered medications for this visit. CURRENT ALLERGIES: Allergies As of Date: 11/28/2023 Allergen Noted Reaction ALOE VERA 04/02/2012 Other: See Comments BACLOFEN 01/01/2020 Other: See Comments and Swelling CEPHALEXIN 04/02/2012 GI Upset and Vomiting CIPROFLOXACIN 04/02/2012 Other: See Comments CYCLOBENZAPRINE 11/11/2013 Hives and Unknown GABAPENTIN 04/02/2012 Hives, Unknown, and Other: See Comments MENTHOL 04/02/2012 Other: See Comments METFORMIN 11/11/2013 Hives MORPHINE 08/27/2023 GI Upset NSAIDS (NON-STEROIDAL ANTI-INFLAM*01/04/2019 Hives, Rash, and Other: See Comments AZITHROMYCIN 04/02/2012 Itching and Rash Fully Assessed 10/15/2023 OBJECTIVE PHYSICAL EXAM: Patient declined a document analyst There were no vitals filed for this visit. There is no height or weight on file to calculate BMI. General: No acute distress, well appearing Abdomen: Soft, NT, nondistended Extremities: Normal range of motion, (more content not included)... Normal [facility] UA DIP, URINE (POC)on 2023 BILIRUBIN UA (POCT) Negative Negative [facility] CLARITY UA (POCT) Clear [facility] COLOR UA (POCT) Yellow [facility] GLUCOSE UA (POCT) Negative Negative mg/dL [facility] Hemoglobin Ql (U) Negative Negative [facility] KETONE UA (POCT) Negative Negative mg/dL [facility] LEUKOCYTES UA (POCT) Negative Negative [facility] NITRITE UA (POCT) Negative Negative [facility] PH UA (POCT) 7.0 4.5 - 8.0 [facility] Protein Ql (U) Negative Negative mg/dL [facility] SPECIFIC GRAVITY UA (POCT) 1.020 1.005 - 1.030 [facility] UROBILINOGEN UA (POCT) 0.2 Normal E.U./dL [facility] Location:[facility], [id number] [place] [address], [address] [place] [address] POINT OF CARE [facility] Alanine aminotransferase [En zymatic activity/volume] in Serum or PlasmaOrdered By: Brigida Corea on 11-14-2023 ALT [Catalytic activity/Vol] 10 U/L Normal 7-52 [facility] Comment on above: Order Comment: Reaso n for Exam Type 2 diabetes mellitus with other specified complication, Performed By: #### L IPID, CMP, TSH3 wRFLX, CBC #### [facility] [address] #### HCV RX PCR #### [facility] , Albumin [Mass/volume] in Ser um or Plasma by Bromocresol green (BCG) dye binding methoOrdered By: Brigida Corea on 11-14-2023 Albumin BCG dye [Mass/Vol] 3.9 g/dL 3.5-5.7 [facility] Alkaline phosphatase [Enzyma tic activity/volume] in Serum or PlasmaOrdered By: Brigida Corea on 11-14-2023 ALP [Catalytic activity/Vol] 87 U/L Normal 34-104 [facility] Comment on above: Order Comment: Reaso n for Exam Type 2 diabetes mellitus with other specified complication, Performed By: #### L IPID, CMP, TSH3 wRFLX, CBC #### [facility] [address] [place] [address] [place] #### HCV RX PCR #### [facility] , Aspartate aminotransferase [ Enzymatic activity/volume] in Serum or PlasmaOrdered By: Brigida Corea on 11-14-2023 AST [Catalytic activity/Vol] 16 U/L Normal 13-39 [facility] Comment on above: Order Comment: Reaso n for Exam Type 2 diabetes mellitus with other specified complication, Performed By: #### L IPID, CMP, TSH3 wRFLX, CBC #### [facility] [address] [place] [address] [place] #### HCV RX PCR #### [facility] , Automated basophil %Ordered By: Brigida Corea on 11-14-2023 Basophils/100 WBC (Bld) 0.5 % Normal . [facility] Comment on above: Order Comment: Reaso n for Exam Type 2 diabetes mellitus with other specified complication, Performed By: #### L IPID, CMP, TSH3 wRFLX, CBC #### [facility] [address] [place] [address] [place] #### HCV RX PCR #### [facility] , Automated basophil countOrde red By: Brigida Corea on 11-14-2023 Basophils (Bld) [#/Vol] 0.0 10*3/uL Normal 0.0-0.2 [facility] Comment on above: Order Comment: Reaso n for Exam Type 2 diabetes mellitus with other specified complication, Result Comment: PERF ORMED BY: [place] [address] PATHOLOGIST ALUMINUM CONTAINER TESTER MATEO ROJAS M.D. Performed By: #### L IPID, CMP, TSH3 wRFLX, CBC #### [facility] [address] [place] [address] [place] #### HCV RX PCR #### [facility] , Automated blood monocyte cou ntOrdered By: Brigida Corea on 11-14-2023 Monocytes (Bld) [#/Vol] 0.7 10*3/uL Normal 0.0-0.8 [facility] Comment on above: Order Comment: Reaso n for Exam Type 2 diabetes mellitus with other specified complication, Performed By: #### L IPID, CMP, TSH3 wRFLX, CBC #### [facility] [address] [place] [address] [place] #### HCV RX PCR #### [facility] , Automated eosinophil %Ordere d By: Brigida Corea on 11-14-2023 Eosinophils/100 WBC (Bld) 2.8 % Normal . [facility] Comment on above: Order Comment: Reaso n for Exam Type 2 diabetes mellitus with other specified complication, Performed By: #### L IPID, CMP, TSH3 wRFLX, CBC #### [facility] [address] [place] [address] [place] #### HCV RX PCR #### [facility] , Automated eosinophil countOr dered By: Brigida Corea on 11-14-2023 Eosinophils (Bld) [#/Vol] 0.3 10*3/uL Normal 0.0-0.45 [facility] Comment on above: Order Comment: Reaso n for Exam Type 2 diabetes mellitus with other specified complication, Performed By: #### L IPID, CMP, TSH3 wRFLX, CBC #### [facility] [address] [place] [address] [place] #### HCV RX PCR #### [facility] , Automated monocyte %Ordered By: Brigida Corea on 11-14-2023 Monocytes/100 WBC (Bld) 7.0 % Normal . [facility] Comment on above: Order Comment: Reaso n for Exam Type 2 diabetes mellitus with other specified complication, Performed By: #### L IPID, CMP, TSH3 wRFLX, CBC #### [facility] [address] [place] [address] [place] #### HCV RX PCR #### [facility] , Automated neutrophil %Ordere d By: Brigida Corea on 11-14-2023 Neutrophils/100 WBC (Bld) 63.3 % Normal . [facility] Comment on above: Order Comment: Reaso n for Exam Type 2 diabetes mellitus with other specified complication, Performed By: #### L IPID, CMP, TSH3 wRFLX, CBC #### [facility] [address] [place] [address] [place] #### HCV RX PCR #### [facility] , Bilirubin.total [Mass/volume ] in Serum or PlasmaOrdered By: Brigida Corea on 11-14-2023 Bilirubin [Mass/Vol] 0.3 mg/dL Normal 0.3-1.0 [facility] Comment on above: Order Comment: Reaso n for Exam Type 2 diabetes mellitus with other specified complication, Performed By: #### L IPID, CMP, TSH3 wRFLX, CBC #### [facility] [address] [place] [address] [place] #### HCV RX PCR #### [facility] , Calcium [Mass/volume] in Ser um or PlasmaOrdered By: Brigida Corea on 11-14-2023 Calcium [Mass/Vol] 8.9 mg/dL Normal 8.6-10.3 [facility] Comment on above: Order Comment: Reaso n for Exam Type 2 diabetes mellitus with other specified complication, Performed By: #### L IPID, CMP, TSH3 wRFLX, CBC #### [facility] [address] [place] [address] [place] #### HCV RX PCR #### [facility] , Carbon dioxide, total [Moles /volume] in Serum or PlasmaOrdered By: Brigida Corea on 11-14-2023 CO2 [Moles/Vol] 29.0 mmol/L Normal 21.0-31.0 [facility] Comment on above: Order Comment: Reaso n for Exam Type 2 diabetes mellitus with other specified complication, Performed By: #### L IPID, CMP, TSH3 wRFLX, CBC #### [facility] [address] [place] [address] [place] #### HCV RX PCR #### [facility] , Chloride [Moles/volume] in S claudia or PlasmaOrdered By: Brigida Corea on 11-14-2023 Chloride [Moles/Vol] 105 mmol/L Normal 98-107 [facility] Comment on above: Order Comment: Reaso n for Exam Type 2 diabetes mellitus with other specified complication, Performed By: #### L IPID, CMP, TSH3 wRFLX, CBC #### [facility] [address] [place] [address] [place] #### HCV RX PCR #### [facility] , Cholesterol [Mass/volume] in Serum or PlasmaOrdered By: Brigida Corea on 11-14-2023 Cholesterol [Mass/Vol] 158 mg/dL Normal 140-200 [facility] Comment on above: Chol less than 200 m g/dl low riskChol 201-239 mg/dl borderline riskChol 240 mg/dl and greater high risk Order Comment: Reaso n for Exam Type 2 diabetes mellitus with other specified complication, Result Comment: Chol less than 200 mg/dl low risk Chol 201-239 mg/dl borderline risk Chol 240 mg/dl and greater high risk Performed By: #### L IPID, CMP, TSH3 wRFLX, CBC #### [facility] [address] [place] [address] [place] #### HCV RX PCR #### [facility] , Cholesterol in LDL Calc [Mas s/Vol]Ordered By: Brigida Corea on 11-14-2023 Cholesterol in LDL [Mass/Vol] 77 mg/dL 0-100 [facility] Comment on above: LDL ATP III CLASSIFI CATIONLDL less than 100 mg/dL OptimalLDL 100-129 mg/dL Near or above optimalLDL 130-159 mg/dL Borderline highLDL 160-189 mg/dL HighLDL greater than 189 mg/dL Very high Cholesterol in VLDL Calc [Ma ss/Vol]Ordered By: Brigida Corea on 11-14-2023 Cholesterol in VLDL [Mass/Vol] 28 mg/dL [facility] Complete Blood Count Auto Di ffon 11-14-2023 Mean Corpuscular HGB Conc 34.2 g/dL Normal 32.0-35.0 [facility] Comment on above: Order Comment: Reaso n for Exam Type 2 diabetes mellitus with other specified complication, Performed By: #### L IPID, CMP, TSH3 wRFLX, CBC #### [place] [address] [place] #### HCV RX PCR #### [facility] , NRBC% 0.1 /100{WBC} Normal 0-0.5 [facility] Comment on above: Order Comment: Reaso n for Exam Type 2 diabetes mellitus with other specified complication, Performed By: #### L IPID, CMP, TSH3 wRFLX, CBC #### [place] [address] [place] #### HCV RX PCR #### [facility] , Comprehensive Metabolic Pane bettye 11-14-2023 Albumin [Mass/Vol] 3.9 g/dL Normal 3.5-5.7 [facility] Comment on above: Order Comment: Reaso n for Exam Type 2 diabetes mellitus with other specified complication, Performed By: #### L IPID, CMP, TSH3 wRFLX, CBC #### [facility] [address] [place] [address] [place] #### HCV RX PCR #### [facility] , GFR/1.73 sq M.predicted MDRD (S/P/Bld) [Vol rate/Area] mL/min/{1.73_m2} Normal [facility] Comment on above: Order Comment: Reaso n for Exam Type 2 diabetes mellitus with other specified complication, Performed By: #### L IPID, CMP, TSH3 wRFLX, CBC #### [facility] [address] [place] [address] [place] #### HCV RX PCR #### [facility] , Creatinine [Mass/volume] in Serum or PlasmaOrdered By: Brigida Corea on 11-14-2023 Creatinine [Mass/Vol] 0.59 mg/dL Low 0.60-1.20 [facility] Comment on above: Order Comment: Reaso n for Exam Type 2 diabetes mellitus with other specified complication, Performed By: #### L IPID, CMP, TSH3 wRFLX, CBC #### [facility] [address] [place] [address] [place] #### HCV RX PCR #### [facility] , Erythrocyte distribution wid th [Ratio] by Automated countOrdered By: Brigida Corea on 11-14-2023 Erythrocyte distribution width (RBC) [Ratio] 13.3 % Normal 11.9-15.3 [facility] Comment on above: Order Comment: Reaso n for Exam Type 2 diabetes mellitus with other specified complication, Performed By: #### L IPID, CMP, TSH3 wRFLX, CBC #### [facility] [address] [place] [address] [place] #### HCV RX PCR #### [facility] , Erythrocytes [#/volume] in B lood by Automated countOrdered By: Brigida Corea on 11-14-2023 RBC (Bld) [#/Vol] 4.31 10*6/uL Normal 3.60-5.00 [facility] Comment on above: Order Comment: Reaso n for Exam Type 2 diabetes mellitus with other specified complication, Performed By: #### L IPID, CMP, TSH3 wRFLX, CBC #### [facility] [address] [place] [address] [place] #### HCV RX PCR #### [facility] , Glucose [Mass/volume] in Ser um or PlasmaOrdered By: Brigida Corea on 11-14-2023 Glucose [Mass/Vol] 123 mg/dL High 70-100 [facility] Comment on above: ADA recommended refe rence rangeRandom Glucose Reference Range is dependent on time and content of last meal. Glucose of more than 200 mg/dL in a nonstressed, ambulatory subject supports the diagnosis of Diabetes Mellitus. Order Comment: Reaso n for Exam Type 2 diabetes mellitus with other specified complication, Result Comment: Cerulean Glucose Reference Range is dependent on time and content of last meal. Glucose of more than 200 mg/dL in a nonstressed, ambulatory subject supports the diagnosis of Diabetes Mellitus. ADA recommended reference range Performed By: #### L IPID, CMP, TSH3 wRFLX, CBC #### [facility] [address] [place] [address] [place] #### HCV RX PCR #### [facility] , Hematocrit [Volume Fraction] of Blood by Automated countOrdered By: Brigida Corea on 11-14-2023 Hematocrit (Bld) [Volume fraction] 35.5 % Normal 34.0-46.4 [facility] Comment on above: Order Comment: Reaso n for Exam Type 2 diabetes mellitus with other specified complication, Performed By: #### L IPID, CMP, TSH3 wRFLX, CBC #### [address] #### HCV RX PCR #### [facility] , Hemoglobin [Mass/volume] in BloodOrdered By: Brigida Corea on 11-14-2023 Hemoglobin (Bld) [Mass/Vol] 12.1 g/dL Normal 11.8-15.4 [facility] Comment on above: Order Comment: Reaso n for Exam Type 2 diabetes mellitus with other specified complication, Performed By: #### L IPID, CMP, TSH3 wRFLX, CBC #### [place] [address] [place] #### HCV RX PCR #### [facility] , Hep C Ab wRfx to Qnt PCRon 0 11-14-2023 Hepatitis C Virus Antibody Non-Reactive Normal Non Reactive [facility] Comment on above: Order Comment: Reaso n for Exam Need for hepatitis C screening test Performed By: #### L IPASE, BMP, CBC, HEPATIC #### [facility] [address] [place] [address] Interpretation Hepatitis C Normal . [facility] Comment on above: Order Comment: Reaso n for Exam Need for hepatitis C screening test Result Comment: Not infected with HCV unless early or acute infection is suspected (which may be delayed in an immunocompromised individual), or other evidence exists to indicate HCV infection. Performed at: - [facility] [address] [id number] Steel Fabricator: Alireza Kaufman PhD, Phone: [phone] PERFORMED BY: [place] [address] PATHOLOGIST ALUMINUM CONTAINER TESTER MATEO ROJAS M.D. Performed By: #### L IPASE, BMP, CBC, HEPATIC #### [facility] [address] [place] [address] Hepatitis C virus IgG Ab [Pr esence] in Serum or Plasma by ImmunoassayOrdered By: Brigida Corea on 11-14-2023 HCV IgG IA Ql Non-Reactive Non Reactive [facility] Leukocytes [#/volume] correc cristian for nucleated erythrocytes in Blood by Automated counOrdered By: Brigida Corea on 11-14-2023 WBC corrected for nucl RBC Auto (Bld) [#/Vol] 9.5 10*3/uL 3.8-11.6 [facility] Leukocytes [#/volume] in Blo od by Automated countOrdered By: Brigida Corea on 11-14-2023 WBC (Bld) [#/Vol] 9.5 10*3/uL Normal 3.8-11.6 [facility] Comment on above: Order Comment: Reaso n for Exam Type 2 diabetes mellitus with other specified complication, Performed By: #### L IPID, CMP, TSH3 wRFLX, CBC #### [facility] [address] [place] [address] [place] #### HCV RX PCR #### [facility] , Lipid Panelon 11-14-2023 LDL Cholesterol,Calculate d 77 mg/dL Normal 0-100 [facility] Comment on above: Order Comment: Reaso n for Exam Type 2 diabetes mellitus with other specified complication, Result Comment: LDL ATP III CLASSIFICATION LDL less than 100 mg/dL Optimal LDL 100-129 mg/dL Near or above optimal LDL 130-159 mg/dL Borderline high LDL 160-189 mg/dL High LDL greater than 189 mg/dL Very high Performed By: #### L IPID, CMP, TSH3 wRFLX, CBC #### [facility] [address] [place] [address] [place] #### HCV RX PCR #### [facility] , Triglyceride w/Reflex 144 mg/dL Normal 0-149 [facility] Comment on above: Order Comment: Reaso n for Exam Type 2 diabetes mellitus with other specified complication, Result Comment: TRIG ATP III CLASSIFICATION TRIG less than 150 mg/dL Normal TRIG 150-199 mg/dL Borderline high TRIG 200-500 mg/dL High TRIG greater than 500 mg/dL Very high Standard traceable to the Center for Disease Conrtrol and Prevention (CDC) test method. Performed By: #### L IPID, CMP, TSH3 wRFLX, CBC #### [place] [address] [place] #### HCV RX PCR #### [facility] , VLDL CHOLESTEROL 28 mg/dL Normal [facility] Comment on above: Order Comment: Reaso n for Exam Type 2 diabetes mellitus with other specified complication, Performed By: #### L IPID, CMP, TSH3 wRFLX, CBC #### [facility] [address] [place] [address] [place] #### HCV RX PCR #### [facility] , Lymphocytes [#/volume] in Bl ood by Automated countOrdered By: Brigida Corea on 11-14-2023 Lymphocytes (Bld) [#/Vol] 2.5 10*3/uL Normal 1.00-4.8 [facility] Comment on above: Order Comment: Reaso n for Exam Type 2 diabetes mellitus with other specified complication, Performed By: #### L IPID, CMP, TSH3 wRFLX, CBC #### [place] [address] [place] #### HCV RX PCR #### [facility] , Lymphocytes/100 leukocytes i n Blood by Automated countOrdered By: Brigida Corea on 11-14-2023 Lymphocytes/100 WBC (Bld) 26.4 % Normal . [facility] Comment on above: Order Comment: Reaso n for Exam Type 2 diabetes mellitus with other specified complication, Performed By: #### L IPID, CMP, TSH3 wRFLX, CBC #### [facility] [address] [place] [address] [place] #### HCV RX PCR #### [facility] , MCH [Entitic mass] by Automa cristian countOrdered By: Brigida Corea on 11-14-2023 MCH (RBC) [Entitic mass] 28.1 pg Normal 24.7-34.3 [facility] Comment on above: Order Comment: Reaso n for Exam Type 2 diabetes mellitus with other specified complication, Performed By: #### L IPID, CMP, TSH3 wRFLX, CBC #### [place] [address] [place] #### HCV RX PCR #### [facility] , MCHC Auto (RBC) [Mass/Vol]Or dered By: Brigida Corea on 11-14-2023 MCHC (RBC) [Mass/Vol] 34.2 g/dL 32.0-35.0 [facility] MCV [Entitic volume] by Auto mated countOrdered By: Brigida Corea on 11-14-2023 MCV (RBC) [Entitic vol] 82.3 fL Normal 80-100 [facility] Comment on above: Order Comment: Reaso n for Exam Type 2 diabetes mellitus with other specified complication, Performed By: #### L IPID, CMP, TSH3 wRFLX, CBC #### [facility] [address] [place] [address] [place] #### HCV RX PCR #### [facility] , Neutrophils [#/volume] in Bl ood by Automated countOrdered By: Brigida Corea on 11-14-2023 Neutrophils (Bld) [#/Vol] 6.0 10*3/uL Normal 1.8-7.7 [facility] Comment on above: Order Comment: Reaso n for Exam Type 2 diabetes mellitus with other specified complication, Performed By: #### L IPID, CMP, TSH3 wRFLX, CBC #### [facility] [address] [place] [address] [place] #### HCV RX PCR #### [facility] , No Panel InformationOrdered By: Brigida Corea on 11-14-2023 Estimated GFR (CKD-EPI) > 60.0 mL/Min [facility] Hepatitis C Interpretation See comment . [facility] Comment on above: Not infected with HC V unless early or acute infection issuspected (which may be delayed in an immunocompromisedindividual), or other evidence exists to indicate HCVinfection.Performed at: - [facility] [id number] Director: Alireza Kaufman PhD, Phone: [phone] Pharmacy Creatinine Clearance (Chem N/A [facility] Nucleated erythrocytes [Pres ence] in Blood by Automated countOrdered By: Brigida Corea on 11-14-2023 Nucleated RBC Auto Ql (Bld) 0.1 /100{WBC} 0-0.5 [facility] Platelet mean volume [Entiti c volume] in Blood by Automated countOrdered By: Brigida Corea on 11-14-2023 Platelet mean volume (Bld) [Entitic vol] 7.8 fL Normal 6.3-10.7 [facility] Comment on above: Order Comment: Reaso n for Exam Type 2 diabetes mellitus with other specified complication, Performed By: #### L IPID, CMP, TSH3 wRFLX, CBC #### [facility] [address] [place] [address] [place] #### HCV RX PCR #### [facility] , Platelets [#/volume] in Bloo d by Automated countOrdered By: Brigida Corea on 11-14-2023 Platelets (Bld) [#/Vol] 267 10*3/uL Normal 150-450 [facility] Comment on above: Order Comment: Reaso n for Exam Type 2 diabetes mellitus with other specified complication, Performed By: #### L IPID, CMP, TSH3 wRFLX, CBC #### [facility] [address] [place] [address] [place] #### HCV RX PCR #### [facility] , Potassium [Moles/volume] in Serum or PlasmaOrdered By: Brigida Corea on 11-14-2023 Potassium [Moles/Vol] 4.3 mmol/L Normal 3.5-5.1 [facility] Comment on above: Order Comment: Reaso n for Exam Type 2 diabetes mellitus with other specified complication, Performed By: #### L IPID, CMP, TSH3 wRFLX, CBC #### [facility] [address] [place] [address] [place] #### HCV RX PCR #### [facility] , Protein [Mass/volume] in Ser um or PlasmaOrdered By: Brigida Corea on 11-14-2023 Protein [Mass/Vol] 6.8 g/dL Normal 6.4-8.9 [facility] Comment on above: Order Comment: Reaso n for Exam Type 2 diabetes mellitus with other specified complication, Performed By: #### L IPID, CMP, TSH3 wRFLX, CBC #### [facility] [address] [place] [address] [place] #### HCV RX PCR #### [facility] , Serum globulin measurement b y calculation (mass/volume)Ordered By: Brigida Corea on 11-14-2023 Globulin (S) [Mass/Vol] 2.9 g/dL [facility] Comment on above: Order Comment: Reaso n for Exam Type 2 diabetes mellitus with other specified complication, Performed By: #### L IPID, CMP, TSH3 wRFLX, CBC #### [facility] [address] [place] [address] [place] #### HCV RX PCR #### [facility] , Serum or plasma albumin/glob ulin mass ratioOrdered By: Brigida Corea on 11-14-2023 Albumin/Globulin [Mass ratio] 1.3 {ratio} [facility] Comment on above: Order Comment: Reaso n for Exam Type 2 diabetes mellitus with other specified complication, Performed By: #### L IPID, CMP, TSH3 wRFLX, CBC #### [facility] [address] [place] [address] [place] #### HCV RX PCR #### [facility] , Serum or plasma anion gap de terminationOrdered By: Brigida Corea on 11-14-2023 Anion gap [Moles/Vol] 7.3 mmol/L Normal 6.0-15.0 [facility] Comment on above: Order Comment: Reaso n for Exam Type 2 diabetes mellitus with other specified complication, Performed By: #### L IPID, CMP, TSH3 wRFLX, CBC #### [facility] [address] [place] [address] [place] #### HCV RX PCR #### [facility] , Serum or plasma high density lipoprotein (HDL) cholesterol measurementOrdered By: Brigida Corea on 11-14-2023 Cholesterol in HDL [Mass/Vol] 52 mg/dL Normal 23-92 [facility] Comment on above: HDL CHOL ATP-III CLA SSIFICATION Cardiovascular RiskHDL > or equal to 60 mg/dL LOWHDL < 40 mg/dL HIGH Order Comment: Reaso n for Exam Type 2 diabetes mellitus with other specified complication, Result Comment: HDL CHOL ATP-III CLASSIFICATION Cardiovascular Risk HDL > or equal to 60 mg/dL LOW HDL < 40 mg/dL HIGH Performed By: #### L IPID, CMP, TSH3 wRFLX, CBC #### [facility] [address] [place] [address] [place] #### HCV RX PCR #### [facility] , Serum or plasma total choles terol/high density lipoprotein (HDL) cholesterol mass ratOrdered By: Brigida Corea on 11-14-2023 Cholesterol.total/Cho lesterol in HDL [Mass ratio] 3.0 {ratio} Normal <5.0 [facility] Comment on above: Order Comment: Reaso n for Exam Type 2 diabetes mellitus with other specified complication, Performed By: #### L IPID, CMP, TSH3 wRFLX, CBC #### [facility] [address] [place] [address] [place] #### HCV RX PCR #### [facility] , Sodium [Moles/volume] in Ser um or PlasmaOrdered By: Brigida Corea on 11-14-2023 Sodium [Moles/Vol] 137 mmol/L Normal 136-145 [facility] Comment on above: Order Comment: Reaso n for Exam Type 2 diabetes mellitus with other specified complication, Performed By: #### L IPID, CMP, TSH3 wRFLX, CBC #### [facility] [address] [place] [address] [place] #### HCV RX PCR #### [facility] , Thyroid Stim Hormone w/Rflxo n 11-14-2023 Thyroid Stim Hormone w/Rflx 1.11 u[iU]/mL Normal 0.45-5.33 [facility] Comment on above: Order Comment: Reaso n for Exam Type 2 diabetes mellitus with other specified complication, Result Comment: PERF ORMED BY: [place] [address] PATHOLOGIST ALUMINUM CONTAINER TESTER MATEO ROJAS M.D. Performed By: #### L IPID, CMP, TSH3 wRFLX, CBC #### [facility] [address] [place] [address] [place] #### HCV RX PCR #### [facility] , Thyrotropin [Units/volume] i n Serum or PlasmaOrdered By: Brigida Corea on 11-14-2023 TSH Qn 1.11 m[IU]/L 0.45-5.33 [facility] Triglyceride [Mass/volume] i n Serum or PlasmaOrdered By: Brigida Corea on 11-14-2023 Triglyceride [Mass/Vol] 144 mg/dL 0-149 [facility] Comment on above: TRIG ATP III CLASSIF ICATIONTRIG less than 150 mg/dL NormalTRIG 150-199 mg/dL Borderline highTRIG 200-500 mg/dL High TRIG greater than 500 mg/dL Very highStandard traceable to the Center for Disease Conrtrol and Prevention (CDC) test method. Urea nitrogen [Mass/volume] in Serum or PlasmaOrdered By: Brigida Corea on 11-14-2023 Urea nitrogen [Mass/Vol] 16 mg/dL Normal 7-25 [facility] Comment on above: Order Comment: Reaso n for Exam Type 2 diabetes mellitus with other specified complication, Performed By: #### L IPID, CMP, TSH3 wRFLX, CBC #### [facility] [address] [place] [address] #### HCV RX PCR #### [facility] , XR chest 2V*on 10-28-2023 XR chest 2V* [facility] [place] [address] [place] [address] XRay Report Signed Patient: Lisa Fernando MR#: [id number] : 1975 Acct:[id number] Age/Sex: 48 / F ADM Date: 10/27/23 Loc: ER Room: Type: [facility] ER Attending Dr: Copies to: Mary Ellen Magallanes APRN Ordering Provider: Mary Ellen Magallanes APRN Date of Service: 10/27/23 XR/XR lumbar spine 2-3V*: Back Pain/Injury ([id number]) XR/XR chest 2V*: Back Pain/Injury LUMBAR SPINE - 2 views COMPARISON: 09/05/2022 CLINICAL DATA: Lower back pain for the past 4 days after coughing. AP and lateral standing views were obtained. There are no acute fractures or displacement. The disc spaces are uniform. There is lower lumbar facet hypertrophy. There is minor upper lumbar and lower thoracic endplate spurring. The SI joints are intact. No paraspinal soft tissue abnormalities are seen. XR/XR lumbar spine 2-3V* IMPRESSION: MILD DEGENERATIVE CHANGES. NO ACUTE BONY FINDINGS. PA AND LATERAL CHEST: CLINICAL HISTORY: Cough for the past 2 months COMPARISON: 10/06/2023 There is no developing consolidation, effusion or pneumothorax. The cardiac, hilar and mediastinal silhouettes are within normal limits. There is no vascular congestion. The visualized bony thorax is intact. There is levoscoliotic curvature and endplate spurring. IMPRESSION: NO ACUTE CARDIOPULMONARY ABNORMALITY. Impression dictated by: Liz Rubi M.D.10/28/2023 8:28 AM Dictation Location: [place] [address] Transcribed By: HARLAN 10/28/23 0828 Dictated By: Liz Rubi MD 10/28/2323 Signed By: 10/28/23827 Normal [facility] Follow-Upon 10-23-2023 Follow-Up [id number] Tim Fernando 1975 F Date Provider Department Center 10/23/2023 ISAI SALINAS MP ORTHO MPORTHO Family History Problem Relation Age of Onset Cancer Mother Diabetes Father Cancer Maternal Grandmother Cancer Mother's Brother Cancer Mother's Sister Family Status - Relation Status Age at Mother Father Maternal Grandmother Mother's Brother Mother's Sister Level of Service:45477 [place] OFFICE/OUTPATIENT ESTABLISHED SF MDM 10 MIN () Reason for Visit and Comments: Follow-up [504522] Normal [facility] [id number] 10-22-2023 [id number] HNO ID: [id number] Author: MODE ADLER PT Service: ? Author Type: Physical Therapist Type: [id number] Filed: 10/22/2023 16:01 Note Text: [facility] Physical Therapy Plan of Care Certification Patient Name: Lisa Fernando : 1975 CCF #: [id number] Date: 10/22/2023 To: Melony Alamo PAWillam From Therapist: Mode Adler PT RE: Patient Certification/ Recertification Your review, approval and electronic signature are required in order to comply with Payor: COUNTS INCLUDE 234 BEDS AT THE [facility] MEDICAID / Plan: [place] BCBS MEDICAID OF [place] / Product Type: Medicaid / regulations. The identified Physical Therapy PLAN OF CARE for the patient is as follows: M76.829 PTTD (posterior tibial tendon dysfunction) (primary encounter diagnosis) E66.01 Morbid obesity (HCC) M19.071 Osteoarthritis of right ankle and foot M51.36 Degeneration of lumbar intervertebral disc M48.062 Spinal stenosis, lumbar region with neurogenic claudication M48.061 Lumbar foraminal stenosis M47.816 Facet degeneration of lumbar region G25.81 Restless legs syndrome R20.9 Disturbance of skin sensation G56.03 Carpal tunnel syndrome, bilateral Z96.653 H/O total knee replacement, bilateral Z98.890 Status post left foot surgery M79.10 Myalgia PLAN OF CARE: Assessment: Lisa Fernando presents with chief complaint of back pain and left ankle pain that interferes with standing, walking, heavy exertion, lifting, physical activities, recreational activities . She presents with impairments in ADL's, gait, posture, range of motion, strength, symptom management, and tissue tenderness. PROMIS? (Patient-Reported Outcomes Measurement Information System) scores were reviewed and identified as a rehabilitation concern. Prognosis for therapy is Good due to: current objective clinical presentation . She will benefit from skilled therapy services to meet the goals established for this plan of care as noted below. Based on the patient's history, the components of the examination, the patient presentation, and required decision-making as described in this evaluation, this patient's evaluation falls into the low category of complexity as described by AMA CPT codes. Patient can benefit from skilled care to address patient's impairments and improve their function. Classification Low Back Pain Classification: Symptom Modulation Goals for Episode of Care: created on 10/22/23 through 12/17/23 Patient will be able to stand and walk for 1 hour without pain [place] in home exercise program. Patient will decrease pain rating by 2 points to meet minimal clinical important difference for numeric pain rating scale. Patient will increase active ROM of left ankle eversion to 20 degrees to allow pt to to improve gait mechanics / gait pattern . Patient will demonstrate increase in trunk strength to good during manual muscle testing in order to improve function for prior functional tasks. Normal gait. Planned Interventions, Frequency, and Duration: Current Frequency: 1x every other week Duration: 8 weeks Total Number of Visits Planned: 4 Planned Treatment Interventions: Therapeutic exercise (94754), Neuromuscular re-education (86552), Manual therapy (42805), Therapeutic activities (13137), Self-alf management (81988), Gait Training (72755), Patient/Family/Caregiv er Education, Body Mechanics Training, Functional training PLAN FOR NEXT VISIT: Patient demonstrates good understanding of plan of care and treatment. The above goals and plan of care were discussed and agreed upon by patient/family. For further details regarding this patient refer to the Physical Therapy electronically documented visit dated 10/22/2023. Provider Attestation I have reviewed the treatment plan for Lisa Fernando, CCF# [id number] for the period of 10/22/23 -- 12/17/23, established on 10/22/2023. Signature certifies the need for therapy services. Normal [facility] CNTHERAPYon 10-22-2023 CNTHERAPY OT/PT/Speech Visit (LOPTRM) LISA FERNANDO ([id number]) 1975 F Date Time Provider Department 10/22/23 1:30 PM MODE ADLER Date Time Provider Department [place] 10/22/2023 1:30 PM [id number] ADLER Reason for Visit: Physical Therapy [503] PT Eval [747] Patient Education [91] PT Discharge [752] Primary Visit Diagnosis:PTTD (posterior tibial tendon dysfunction) [M76.829] Other Visit Diagnoses:Morbid obesity (HCC) [E66.01] Osteoarthritis of right ankle and foot [M19.071] Degeneration of lumbar intervertebral disc [M51.36] Spinal stenosis, lumbar region with neurogenic claudication [M48.062] Lumbar foraminal stenosis [M48.061] 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] Restless legs syndrome [G25.81] Disturbance of skin sensation [R20.9] Carpal tunnel syndrome, bilateral [G56.03] H/O total knee replacement, bilateral [Z96.653] Status post left foot surgery [Z98.890] Myalgia [M79.10] Allergies As of Date: 10/22/2023 Noted Allergy Reaction ALOE VERA 04/02/2012 14 - Other: See Comments BACLOFEN 01/01/2020 14 - Other: See Comments 7 - Swelling CEPHALEXIN 04/02/2012 8 - GI Upset 11 - Vomiting CIPROFLOXACIN 04/02/2012 14 - Other: See Comments CYCLOBENZAPRINE 11/11/2013 4 - Hives 16 - Unknown GABAPENTIN 04/02/2012 4 - Hives 16 - Unknown 14 - Other: See Comments MENTHOL 04/02/2012 14 - Other: See Comments METFORMIN 11/11/2013 4 - Hives MORPHINE 08/27/2023 8 - GI Upset NSAIDS (NON-STEROIDAL ANTI-INFLAM*01/04/2019 4 - Hives 2 - Rash 14 - Other: See Comments AZITHROMYCIN 04/02/2012 9 - Itching 2 - Rash Date Reviewed: 10/15/2023 Reviewed by: Melony Alamo PA-C - Fully Assessed Prescriptions as of 02/20/2024 - nabumetone (RELAFEN) 500 mg tablet 500 mg. - pregabalin (LYRICA) 100 mg capsule Take 100 mg by mouth two times a day. - mirabegron (MYRBETRIQ) 50 mg Tb24 Take 1 tablet by mouth once daily. - polyethylene glycol 3350 (MIRALAX) 17 gram/dose powder Take 17 g by mouth once daily as needed. - lumateperone (CAPLYTA) 10.5 mg capsule Take 10.5 mg by mouth once daily. - pramipexole (MIRAPEX) 0.125 mg tablet TAKE 1 TABLET BY MOUTH 2 TO 3 HOURS BEFORE BEDTIME - cholecalciferol, Vitamin D3, (VITAMIN D3) 1,250 mcg (50,000 unit) cap capsule Take 1 capsule by mouth one time a week. - cyanocobalamin (VITAMIN B-12) 1,000 mcg tab Take 1,000 mcg by mouth once daily. - rimegepant sulfate (NURTEC ODT ORAL) Take 75 mg by mouth. - glipiZIDE (GLUCOTROL) 5 mg tablet Take 5 mg by mouth daily before breakfast. - dulaglutide (TRULICITY) 4.5 mg/0.5 mL pen injector Inject 4.25 mg subcutaneously one time a week. - methocarbamol (ROBAXIN) 750 mg tablet Take 750 mg by mouth as needed. - carBAMazepine (TEGRETOL) 200 mg tablet Take 200 mg by mouth twice daily. - DULoxetine (CYMBALTA) 60 mg capsule Take 60 mg by mouth. - ibuprofen (MOTRIN) 800 mg tablet - carbidopa-levodopa (SINEMET 10-100) 10-100 mg per tablet 1 tablet daily at bedtime. [employer]: Therapy (PT/OT/Speech/Resp) ID: [id number] 10/22/2023 2:07 PM Author: MODE ADLER Signed by MODE ADLER PT on 10/22/2023 at 2:07 PM Document text: Program_ID:[id number] Access Code: [email or web address] URL: [email or web address] Date: 10-22-2023 Prepared By: Mode Adler Program Notes Exercises - Seated Ankle Inversion Eversion AROM - 1 x daily - 7 x weekly - 3 sets - 10 reps - Hook lying multifidi isometric - 1 x daily - 7 x weekly - 1 sets - 2 reps - Neutral Posture in Standing - x daily - x weekly - sets - reps -- Normal [facility] THERAPY NTon 10-22-2023 THERAPY NT HNO ID: [id number] Author: MODE ADLER PT Service: ? Author Type: Physical Therapist Type: Therapy (PT/OT/Speech/Resp) Filed: 10/22/2023 14:07 Note Text: Program_ID:[id number] Access Code: [email or web address] URL: [email or web address] Date: 10-22-2023 Prepared By: Mode Adler Program Notes Exercises - Seated Ankle Inversion Eversion AROM - 1 x daily - 7 x weekly - 3 sets - 10 reps - Hook lying multifidi isometric - 1 x daily - 7 x weekly - 1 sets - 2 reps - Neutral Posture in Standing - x daily - x weekly - sets - reps Normal [facility] CNOVon 10-15-2023 CNOV Office Visit (SPMECO ) LISA FERNANDO ([id number]) 1975 F Date Time Provider Department 10/15/23 9:00 AM MELONY ALAMO SPMECO During your visit today, we recorded the following information about you: Pulse Blood pressure 80/minute 102/71 Melony Alamo, TRI 10/15/2023 10:00 AM Signed [facility] Low Back Pain - Chronic (> 12 weeks) Initial Exam SUBJECTIVE HISTORY OF PRESENT ILLNESS: Lisa Fernando is a 48 year old female who presents with a chief complaint of mid to low back pain and is seen in consultation requested by Dr. Carter Hall for an opinion regarding mid to low back pain. My final recommendations will be communicated back to the requesting physician by way of shared medical record or letter via US mail. Other Issues Addressed at the Visit Today: None. Precipitating Event: None PAIN EVALUATION 10/15/2023 0854 Pain Level: 6 Description: Aching;Spasm Duration Units: Years Frequency: Continuous Pain Radiation: mid to low back Aggravating Factors: Lifting, Standing, Walking, Driving (riding in a car), Entering/exiting a car, laying down Alleviating Factors: Heating pad during use Pain Ratio: NA Prior Therapy: Physical therapy, injections, mobic, robaxin Litigation: No Workers' Compensation: No YELLOW AND BLUE FLAGS YES-Neg Attitude; Back Pain is Disabling YES-Avoiding Activity (for Fear of Pain) YES-Depression or Anxiety Disorders YES-Social Problems No-Substance Use Disorder No-Job Dissatisfaction No-Financial Disincentives Patient Entered Questionnaires 10/13/2023 Spine Questions Pain Location: Lower back Pain Duration: More than 5 years Pain over last 6 months: Every day or nearly every day in the past 6 months Symptoms from neck/cervical spine: Yes Employment Status: Looking for work, unemployed Off work 1 month or more due to back/neck pain: Yes Applied for/receive disability/WC due to low back/neck pain Yes Involved in law suit/legal claim: No 10/13/2023 Spine Red Flags Any type of cancer: No Unexplained fever: No Bowel or bladder disfunction: Yes Unintentional weight loss: No Osteoporosis: No 10/13/2023 Neck Questionnaires Benzel Modified MOON Score 9 (A lower score indicates increased pain and issues.) PROMIS Score Percentiles 10/13/2023 Physical Health Physical Function Percentile 7 Sleep Percentile 0 Fatigue Percentile 1 Pain Interference Percentile 2 10/13/2023 PROMIS SOCIAL ROLE SCORE Social Role Satisfaction Percentile 8 Percentiles provide an indication of how the patient's score ranks in relation to the general population. Higher percentile rankings indicate better function/quality of life. 50th percentile is the average of the general population and indicates half of respondents had a worse score. Depression Screenin10/13/2023 PHQ-9 Score 14 10/13/2023 PHQ-9 Self-harm Question Question 9 Not at all PHQ-9 Self-Harm (Item 9) response options: 0 Not at all 1 Several days 2 More than half the days 3 Nearly every day PHQ-9 Levels: 0-4 No - mild depression 5-9 Mild depression 10-14 Moderate depression 15-19 Moderately severe depression 20-27 Severe depression ACTIVE PROBLEM LIST No Show Right Ankle Pain Pain in Right Foot Lisfranc Dislocation Djd (Degenerative Joint Disease), Ankle and Foot Pttd (Posterior Tibial Tendon Dysfunction) Morbid Obesity (Hcc) PAST MEDICAL HISTORY Diagnosis Date H/O abdominal hysterectomy 01/2020 PAST SURGICAL HISTORY Procedure Laterality Date TOTAL ABDOM HYSTERECTOMY Social History Tobacco Use Smoking status: Never Smokeless tobacco: Never Vaping Use Vaping Use: Never used Substance Use Topics Alcohol use: Yes Drug use: Never No family history on file. ALLERGIES Allergen Reactions Aloe Vera Other: See Comments Baclofen Other: See Comments, Swelling Cephalexin GI Upset, Vomiting Ciprofloxacin Other: See Comments Cyclobenzaprine Hives, Unknown Gabapentin Hives, Unknown, Other: See Comments Menthol Other: See Comments Metformin Hives Morphine GI Upset Nsaids (Non-Steroid* Hives, Rash, Other: See Comments Azithromycin Itching, Rash CURRENT MEDICATIONS: nitrofurantoin monohydrate and macrocrystal (MACROBID) 100 mg capsule Take 1 capsule by mouth two times a day for 5 days. lumateperone (CAPLYTA) 10.5 mg capsule Take 10.5 mg by mouth once daily. pramipexole (MIRAPEX) 0.125 mg tablet TAKE 1 TABLET BY MOUTH 2 TO 3 HOURS BEFORE BEDTIME cholecalciferol, Vitamin D3, (VITAMIN D3) 1,250 mcg (50,000 unit) cap capsule Take 1 capsule by mouth one time a week. sodium chloride-aloe vera (AYR SALINE) topical nasal gel 1 application by INTRANASAL route as needed. (Patient not taking: Reported on 10/11/2023) cyanocobalamin (VITAMIN B-12) 1,000 mcg tab Take 1,000 mcg by mouth once daily. rimegepant (more content not included)... Normal [facility] XR LUMBAR 4V AP/LAT/ FLEX/EX Ton 10-15-2023 XR LUMBAR 4V AP/LAT/ FLEX/EXT * * *Final Report* * * DATE OF EXAM: Oct 15 2023 10:13AM CRX 5231 - XR LUMBAR 4V AP/LAT/ FLEX/EXT / PROCEDURE REASON: multiple diagnoses * * * * Physician Interpretation * * * * EXAMINATION / TECHNIQUE: XR LUMBAR 4V AP/LAT/ FLEX/EXT PATIENT/TECHNOLOGIST PROVIDED HISTORY: CHRONIC MID LOWER BACK PAIN, CLINICAL INFORMATION ( PROVIDED BY ORDERING CLINICIAN) : Spinal stenosis, lumbar region with neurogenic claudication Lumbar foraminal stenosis Facet degeneration of lumbar region Restless legs syndrome COMPARISON: RESULT: Counting reference: Lumbosacral junction. For the purposes of this report, L4-5 is considered the level of the iliac crest and there are 5 lumbar-type vertebrae. Anatomic Variants: None. Normal lumbar lordosis. No significant curvature. No significant spondylolisthesis. Vertebral body heights are preserved. No acute fracture is identified. Preserved disc spaces. Mild lower lumbar facet arthropathy. No instability with flexion and extension. IMPRESSION: No acute osseous abnormality. Mild lower lumbar facet arthropathy [employer] [facility] Advisor: PSCB Transcribe Date/Time: Oct 15 2023 1:50P Dictated by : JEFFERSON SEAMAN MD This examination was interpreted and the report reviewed and electronically signed by: JEFFERSON SEAMAN MD on Oct 15 2023 1:51PM EST [id number] Normal [facility] XR Lumbar spine Views W flex ion and W extensionon 10-15-2023 [facility] Bacteria Ur Culton Bacteria identified Cx Nom (U) ORGANISM ID: 1 >=100,000 CFU/ml Proteus mirabilis ORGANISM ID: 1 (PROTEUS MIRABILIS) -- ANTIBIOTIC INTERPRETATION SMILEY STATUS REFERENCE RANGE -- Ampicillin S <=2 F Susceptible <=8 , Intermediate >8 , Resistant >16 Cefazolin S <=4 F Susceptible 0-16 , Intermediate <0 or >16 , Resistant >16 For uncomplicated urinary tract infections, cefazolin results can be used to predict susceptibility or resistance to cephalexin. Ceftriaxone S <=1 F Susceptible <=1 , Intermediate >1 , Resistant >=4 Cefepime S <=1 F Susceptible <=2 , Susceptible-Dose Dependent >2 , Resistant >=16 Ertapenem S <=0.5 F Susceptible <=0.5 , Intermediate >.5 , Resistant >1 Meropenem S <=0.25 F Susceptible <=1 , Intermediate >1 , Resistant >2 Ampicillin/Sulbact S <=2 F Susceptible <=8 , Intermediate >8 , Resistant >16 Piperacillin/Tazobac S <=4 F Susceptible <=16 , Intermediate >16 , Resistant >64 Gentamicin S <=1 F Susceptible <=4 , Intermediate >4 , Resistant >8 Tobramycin S <=1 F Susceptible <=4 , Intermediate >4 , Resistant >8 Trimeth sulfameth S <=20 F Susceptible <=40 , Resistant >40 Ciprofloxacin S <=0.25 F Susceptible <0.5 , Intermediate >=.5 , Resistant >=1 Nitrofurantoin R 128 F Susceptible <=32 , Intermediate >32 , Resistant >64 Abnormal [facility] Comment on above: Performed By: #### 6 30-4 ####[facility] LABCLIA [id number] APRILAbdullahi [address] [facility] CNOVon 10-11-2023 CNOV Office Visit (UROLLN ) LISA FERNANDO ([id number]) 1975 F Date Time Provider Department 10/11/23 2:40 PM CARTER HALL During your visit today, we recorded the following information about you: Pulse Respiration Blood pressure 85/minute 16/minute 110/45 Carter Hall MD 10/11/2023 3:15 PM Signed Lisa Woodallher Mckeon Andrea [phone] ADDENDUM Chief Complaint: Incontinence HISTORY OF PRESENT ILLNESS: Lisa Fernando is a 48 year old diabetic obese female who presents with left flank pain for the last 10 months that worsens with movement, recurrent UTIs., 2 kidney stones in left kidney. I explain the pt and her that the source of the pain is not related to the stones. In addition, pt refers stress UI since after she had her second son. She underwent hysterectomy and bladder suspension 4 years ago. She improved her stress incontinence but it recurred months later. She has never done PT. I order UC (Not done) , US (normal) and consult to bot PT for her stress incontinence (Not done) and orthopedics to RO muscular and spine causes of her back pain. POCT glucose meter Order: [id number] Component Ref Range AND Units 3 mo ago Glucose POC 70 - 105 mg/dL 108 High Comment: Results US KIDNEY/BLADDER (Acc#[id number]) (Order [id number]) Patient Info Patient Name Sex Lisa Jimenes ([id number]) Female 1975 09/10/2023 3:16 PM - Radiology, [place] In Impression IMPRESSION: 1. No obstructive nephrolithiasis in the lower pole of the left kidney. 2. No sonographic evidence of right-sided renal calculus. No hydronephrosis in either kidney. 3. Grossly unremarkable sonographic appearance of the urinary bladder. LABS No results found for: PSA No results found for: CREAT POCT glucose meter Order: [id number] Component Ref Range AND Units 3 mo ago Glucose POC 70 - 105 mg/dL 108 High Comment: [email or web address] PAST MEDICAL HISTORY Diagnosis Date H/O abdominal hysterectomy 01/2020 PAST SURGICAL HISTORY Procedure Laterality Date TOTAL ABDOM HYSTERECTOMY Social History Tobacco Use Smoking status: Never Smokeless tobacco: Never Vaping Use Vaping Use: Never used Substance Use Topics Alcohol use: Yes Drug use: Never Current Outpatient Medications Medication Instructions albuterol HFA (PROVENTIL HFA, VENTOLIN HFA) 90 mcg/actuation inhaler 2 Puffs, INHALATION carBAMazepine (TEGRETOL) 200 mg, ORAL, 2 TIMES DAILY carbidopa-levodopa (SINEMET 10-100) 10-100 mg per tablet 1 tablet, AT BEDTIME celecoxib (CELEBREX) 200 mg capsule 1 capsule DAILY (route: oral) cholecalciferol, Vitamin D3, (VITAMIN D3) 1,250 mcg (50,000 unit) cap capsule 1 capsule, ORAL, 1 TIME WEEKLY cyanocobalamin (VITAMIN B-12) 1,000 mcg, ORAL, DAILY doxycycline hyclate (VIBRAMYCIN) 100 mg capsule No dose, route, or frequency recorded. dulaglutide (TRULICITY) 4.25 mg, SUBCUTANEOUS, 1 TIME WEEKLY DULoxetine (CYMBALTA) 60 mg, ORAL fluticasone (FLONASE ALLERGY RELIEF) 50 mcg/actuation nasal spray 1 [place], EACH NOSTRIL, 2 TIMES DAILY furosemide (LASIX) 40 mg tablet furosemide 40 mg tablet TAKE 1 TABLET BY MOUTH ONCE DAILY FOR 30 DAYS glipiZIDE (GLUCOTROL) 5 mg, ORAL, DAILY BEFORE BREAKFAST ibuprofen (MOTRIN) 800 mg tablet No dose, route, or frequency recorded. LATUDA 20 mg tablet 1 tablet, DAILY liraglutide (VICTOZA) 0.6 mg/0.1 mL (18 mg/3 mL) Victoza 3-Arden 0.6 mg/0.1 mL (18 mg/3 mL) subcutaneous pen injector loratadine (CLARITIN) 10 mg, ORAL, DAILY lumateperone (CAPLYTA) 10.5 mg, ORAL, DAILY meloxicam (MOBIC) 15 mg, ORAL, DAILY metFORMIN (GLUCOPHAGE) 500 mg tablet metformin 500 mg tablet TAKE 1 TABLET BY MOUTH TWICE DAILY methocarbamol (ROBAXIN) 750 mg, ORAL, NEEDED OXcarbazepine (TRILEPTAL) 150 mg tablet 1 tablet, 2 TIMES DAILY potassium chloride SR (MICRO-K) 10 mEq CR capsule potassium chloride ER 10 mEq capsule,extended release potassium chloride SR (MICRO-K) 10 mEq CR capsule 1 capsule DAILY (route: oral) pramipexole (MIRAPEX) 0.125 mg tablet TAKE 1 TABLET BY MOUTH 2 TO 3 HOURS BEFORE BEDTIME pregabalin (LYRICA) 50 mg, ORAL, 2 TIMES DAILY PROAIR HFA 90 mcg/actuation inhaler NEEDED rimegepant sulfate (NURTEC ODT ORAL) 75 mg, ORAL sodium chloride (SALINE NASAL) 0.65 % nasal spray 2 Sprays, NASAL, 2 TIMES DAILY sodium chloride-aloe vera (AYR SALINE) topical nasal gel 1 application , INTRANASAL, NEEDED REVIEW OF SYSTEMS GENERAL: No fever, no fatigue and no weight loss. HEAD AND NECK: No headache, no blurred vision and no hearing loss. CARDIOVASCULAR: No chest pain, no palpitations and no leg edema. RESPIRATORY: No cough, wheezing and no shortness of breath. : As indicated in HPI. GI: No epigastric discomfort, (more content not included)... Normal [facility] CNOVon 10-08-2023 CNOV Office Visit (OTOLMN ) LISA FERNANDO ([id number]) 1975 F Date Time Provider Department 10/08/23 1:15 PM ANGEL ZUNIGA OTOLMN During your visit today, we recorded the following information about you: José AntonioJazzmine caballero Ma 10/08/2023 1:27 PM Signed Tobacco Use: Never Was smoking cessation packet given? N/A - Patient is a non-smoker or quit >1 year ago. Was a referral initiated?N/A Patient is a non-smoker Angel Zuniga MD 10/08/2023 1:27 PM Signed OTOLARYNGOLOGY-HEAD AND NECK SURGERY CC: Consultation requested by Dr. Garcia for an opinion regarding scabing on nose. My final recommendations will be communicated back to the requesting physician by way of shared Medical record or letter to requesting physician via US mail. Assessment/Plan: ASSESSMENT/PLAN: 1. Gastroesophageal reflux disease, unspecified whether esophagitis present - ICD9: 530.81, ICD10: K21.9 - CONSULT TO GASTROENTEROLOGY AYR for scabbing on the nose Angel Zuniga MD HPI: 48F with known GERD. No unintended weight loss. No odynophagia, dysphagia or changes in symptoms. No changes in swallow. Needs referral to GI. Scope deferred. Also with scabbing on the right side of the nose. ALLERGIES Allergen Reactions Aloe Vera Other: See Comments Baclofen Other: See Comments, Swelling Cephalexin GI Upset, Vomiting Ciprofloxacin Other: See Comments Cyclobenzaprine Hives, Unknown Gabapentin Hives, Unknown, Other: See Comments Menthol Other: See Comments Metformin Hives Morphine GI Upset Nsaids (Non-Steroid* Hives, Rash, Other: See Comments Azithromycin Itching, Rash Current Outpatient Medications Medication Sig lumateperone (CAPLYTA) 10.5 mg capsule Take 10.5 mg by mouth once daily. pramipexole (MIRAPEX) 0.125 mg tablet TAKE 1 TABLET BY MOUTH 2 TO 3 HOURS BEFORE BEDTIME cholecalciferol, Vitamin D3, (VITAMIN D3) 1,250 mcg (50,000 unit) cap capsule Take 1 capsule by mouth one time a week. sodium chloride-aloe vera (AYR SALINE) topical nasal gel 1 application by INTRANASAL route as needed. cyanocobalamin (VITAMIN B-12) 1,000 mcg tab Take 1,000 mcg by mouth once daily. rimegepant sulfate (NURTEC ODT ORAL) Take 75 mg by mouth. glipiZIDE (GLUCOTROL) 5 mg tablet Take 5 mg by mouth daily before breakfast. dulaglutide (TRULICITY) 4.5 mg/0.5 mL pen injector Inject 4.25 mg subcutaneously one time a week. methocarbamol (ROBAXIN) 750 mg tablet Take 750 mg by mouth as needed. pregabalin (LYRICA) 50 mg capsule Take 50 mg by mouth two times a day. carBAMazepine (TEGRETOL) 200 mg tablet Take 200 mg by mouth twice daily. potassium chloride SR (MICRO-K) 10 mEq CR capsule 1 capsule DAILY (route: oral) loratadine (CLARITIN) 10 mg tablet Take 1 tablet by mouth once daily. sodium chloride (SALINE NASAL) 0.65 % nasal spray Use 2 Sprays in the nose twice daily. fluticasone (FLONASE ALLERGY RELIEF) 50 mcg/actuation nasal spray Use 1 [place] in each nostril twice daily. DULoxetine (CYMBALTA) 60 mg capsule Take 60 mg by mouth. celecoxib (CELEBREX) 200 mg capsule 1 capsule DAILY (route: oral) doxycycline hyclate (VIBRAMYCIN) 100 mg capsule furosemide (LASIX) 40 mg tablet furosemide 40 mg tablet TAKE 1 TABLET BY MOUTH ONCE DAILY FOR 30 DAYS ibuprofen (MOTRIN) 800 mg tablet liraglutide (VICTOZA) 0.6 mg/0.1 mL (18 mg/3 mL) Victoza 3-Arden 0.6 mg/0.1 mL (18 mg/3 mL) subcutaneous pen injector metFORMIN (GLUCOPHAGE) 500 mg tablet metformin 500 mg tablet TAKE 1 TABLET BY MOUTH TWICE DAILY potassium chloride SR (MICRO-K) 10 mEq CR capsule potassium chloride ER 10 mEq capsule,extended release albuterol HFA (PROVENTIL HFA, VENTOLIN HFA) 90 mcg/actuation inhaler Inhale 2 Puffs as instructed. meloxicam (MOBIC) 15 mg tablet Take 1 tablet by mouth once daily. PROAIR HFA 90 mcg/actuation inhaler as needed. (Patient not taking: Reported on 04/04/2022) carbidopa-levodopa (SINEMET 10-100) 10-100 mg per tablet 1 tablet daily at bedtime. LATUDA 20 mg tablet 1 tablet once daily. OXcarbazepine (TRILEPTAL) 150 mg tablet 1 tablet twice daily. No current facility-administered medications for this visit. PAST MEDICAL HISTORY Diagnosis Date H/O abdominal hysterectomy 01/2020 PAST SURGICAL HISTORY Procedure Laterality Date TOTAL ABDOM HYSTERECTOMY Social History: Social History Tobacco Use Smoking status: Never Smokeless tobacco: Never Vaping Use Vaping Use: Never used Substance Use Topics Alcohol use: Yes Drug use: Never No family history on file. ROS: GENERAL: No weight loss, malaise or fevers. HEENT: Negative for frequent or significant headaches, No changes in hearing or vision, No nasal bleeding, congestion or rhinorrhea, No sore throat or change in voice NECK: Negative for lumps, goiter, pain and significant neck swelling RESPIRATORY: Negative for cough, hemoptysis, wheezing or shortness of breath NEUROLOGIC: Nega (more content not included)... Normal [facility] CNOV Office Visit (OTOLMN ) LISA FERNANDO ([id number]) 1975 F Date Time Provider Department 10/08/23 10:55 AM NASRA LO OTOLMN During your visit today, we recorded the following information about you: Alisson Souza Ma 10/08/2023 3:38 PM Signed Tobacco Use: Never Was smoking cessation packet given? N/A - Patient is a non-smoker or quit >1 year ago. Was a referral initiated?N/A Patient is a non-smoker Nasra Lo PA-C 10/08/2023 3:38 PM Signed History of Present Illness Ms. LISA FERNANDO is a 48 year old female presenting to the clinic for evaluation of her bilateral otalgia and hearing loss. Chief Complaint: Follow up, bilateral otalgia. Last seen 08/27/2023. Since last seen, Pain in the ear is overall stable, no changes. She has not been able to get into a dentist yet for evaluation of her teeth and jaw as possible cause of the ear pain. Did have some changes in her hearing, did see audiology this morning. She is going to pursue hearing aids. Tinnitus, ringing noise, mostly in the right ear. It is overall stable. She has been feeling off. Denies spinning sensation. Has been getting headaches more frequently. Does take Nurtec which helps. The headache usually goes with the imbalance. Otorrhea: denies Facial Numbness, Weakness or Tingling: denies ALLERGIES Allergen Reactions Aloe Vera Other: See Comments Baclofen Other: See Comments, Swelling Cephalexin GI Upset, Vomiting Ciprofloxacin Other: See Comments Cyclobenzaprine Hives, Unknown Gabapentin Hives, Unknown, Other: See Comments Menthol Other: See Comments Metformin Hives Morphine GI Upset Nsaids (Non-Steroid* Hives, Rash, Other: See Comments Azithromycin Itching, Rash Current Outpatient Medications on File Prior to Visit Medication Sig lumateperone (CAPLYTA) 10.5 mg capsule Take 10.5 mg by mouth once daily. pramipexole (MIRAPEX) 0.125 mg tablet TAKE 1 TABLET BY MOUTH 2 TO 3 HOURS BEFORE BEDTIME cholecalciferol, Vitamin D3, (VITAMIN D3) 1,250 mcg (50,000 unit) cap capsule Take 1 capsule by mouth one time a week. cyanocobalamin (VITAMIN B-12) 1,000 mcg tab Take 1,000 mcg by mouth once daily. rimegepant sulfate (NURTEC ODT ORAL) Take 75 mg by mouth. glipiZIDE (GLUCOTROL) 5 mg tablet Take 5 mg by mouth daily before breakfast. dulaglutide (TRULICITY) 4.5 mg/0.5 mL pen injector Inject 4.25 mg subcutaneously one time a week. methocarbamol (ROBAXIN) 750 mg tablet Take 750 mg by mouth as needed. pregabalin (LYRICA) 50 mg capsule Take 50 mg by mouth two times a day. carBAMazepine (TEGRETOL) 200 mg tablet Take 200 mg by mouth twice daily. potassium chloride SR (MICRO-K) 10 mEq CR capsule 1 capsule DAILY (route: oral) DULoxetine (CYMBALTA) 60 mg capsule Take 60 mg by mouth. furosemide (LASIX) 40 mg tablet furosemide 40 mg tablet TAKE 1 TABLET BY MOUTH ONCE DAILY FOR 30 DAYS ibuprofen (MOTRIN) 800 mg tablet carbidopa-levodopa (SINEMET 10-100) 10-100 mg per tablet 1 tablet daily at bedtime. loratadine (CLARITIN) 10 mg tablet Take 1 tablet by mouth once daily. sodium chloride (SALINE NASAL) 0.65 % nasal spray Use 2 Sprays in the nose twice daily. fluticasone (FLONASE ALLERGY RELIEF) 50 mcg/actuation nasal spray Use 1 [place] in each nostril twice daily. celecoxib (CELEBREX) 200 mg capsule 1 capsule DAILY (route: oral) doxycycline hyclate (VIBRAMYCIN) 100 mg capsule liraglutide (VICTOZA) 0.6 mg/0.1 mL (18 mg/3 mL) Victoza 3-Arden 0.6 mg/0.1 mL (18 mg/3 mL) subcutaneous pen injector metFORMIN (GLUCOPHAGE) 500 mg tablet metformin 500 mg tablet TAKE 1 TABLET BY MOUTH TWICE DAILY potassium chloride SR (MICRO-K) 10 mEq CR capsule potassium chloride ER 10 mEq capsule,extended release albuterol HFA (PROVENTIL HFA, VENTOLIN HFA) 90 mcg/actuation inhaler Inhale 2 Puffs as instructed. meloxicam (MOBIC) 15 mg tablet Take 1 tablet by mouth once daily. PROAIR HFA 90 mcg/actuation inhaler as needed. (Patient not taking: Reported on 04/04/2022) LATUDA 20 mg tablet 1 tablet once daily. OXcarbazepine (TRILEPTAL) 150 mg tablet 1 tablet twice daily. No current facility-administered medications on file prior to visit. Objective: There were no vitals taken for this visit. Appearance: Non-syndromic, cooperative and calm Communication: Voice has adequate volume; there is no stridor Head/Face: head and facial contours are symmetric Facial nerve 1/6 bilateral Skin: no skin lesions or scarring on face Ears: AD External auditory canal is patent. TM is clear and intact. External auditory canal is patent. TM is clear and intact. Nose: external exam with straight profile Oral Cavity: Poor dentition Oropharynx: Uvula hangs midline; mucosa is pink and moist Neuro/Psych.: Alert and Oriented x 3 Cranial nerves intact Data Review: CT Temporal Bone 09/10/2023: IMPRESSION, copied: Mild developmental bony changes invo (more content not included)... Normal [facility] CNOV Office Visit (CDISMN ) LISA FERNANDO ([id number]) 1975 F Date Time Provider Department 10/08/23 10:00 AM [facility] During your visit today, we recorded the following information about you: Simone Beard AUD 10/08/2023 10:29 AM Signed Head and Neck [place] AUDIOLOGIC EVALUATION REPORT Name: Lisa Fernando CCF#: [id number] Date of Service: 10/08/2023 Date of : 1975 Age: [age] year old [facility] [address] Referred for: Evaluation of suspected change in hearing, tinnitus, or balance. Referral documented: In an order in [facility] Patient's major complaints: Reduced hearing in both ears, Tinnitus in both ears, Dizziness/vertigo/imba yuri, Otalgia in both ears Lisa Fernando was seen for a recheck audiologic evaluation. History is significant for bilateral hearing loss, tinnitus and otalgia (02/11) as well as dizziness. Of note, recent CT completed on 09/10/2023 was unremarkable. Most recent audiologic evaluation revealed mild sensorineural hearing loss bilaterally. Today patient denied otorrhea. She previously denied prior otologic surgery, chemotherapy/radiation , family history of hearing loss, head trauma and noise exposure. See procedures tab for audiometric results. IMPRESSIONS RIGHT EAR: Sensorineural hearing loss LEFT EAR: Sensorineural hearing loss Comparison of today's results with previous test results (06/03/2022): Today's results reveal no significant change in both ears AUDIOLOGIC EVALUATION Following is a brief interpretation of the obtained findings from the audiologic evaluation. Refer to the Auditory Test Record for complete audiometric results. The patient was counseled about the test findings and appropriate audiologic recommendations were made. SUMMARY: See procedures tab for audiometric results. OTOSCOPY RIGHT EAR: Otoscopic inspection revealed ear canal was clear with an identifiable cone of light. LEFT EAR: Otoscopic inspection revealed ear canal was clear with an identifiable cone of light. TYMPANOMETRY Description of procedure: This test is an objective evaluation of middle ear function. CPT code: 70342 RIGHT EAR: Normal ME function. LEFT EAR: Normal ME function. ACOUSTIC REFLEXES Description of procedure: This test is an objective measure of auditory and facial nerve pathways. CPT code: 11780, 13558 RIGHT EAR PROBE EAR: (ipsi right stimulus ear; contralateral left stimulus ear): Acoustic Reflex Pattern Did not test Acoustic Reflex Decay (left stimulus ear): Did not test. LEFT EAR PROBE EAR: (ipsi left stimulus ear; contralateral right stimulus ear): Acoustic Reflex Pattern Did not test Acoustic Reflex Decay (right stimulus ear):Did not test. PURE TONE AUDIOMETRY AND SPEECH TESTING Description of procedure: This test is an objective evaluation hearing sensitivity via air and bone conduction and speech recognition testing. CPT code: 85871 RIGHT EAR: Hearing Sensitivity: Essentially mild sensorineural hearing loss. Word Recognition Score: Excellent (90%). WRS is consistent with hearing sensitivity. Words were presented at 60 dB HL is above (greater than or equal to 60 dB HL) intensity level for average conversational speech. The NU-6 Ordered by Difficulty Word List (10 words) was used for testing. Contralateral masking was employed. LEFT EAR: Hearing Sensitivity: Mild sensorineural hearing loss. Word Recognition Score: Excellent (100%). WRS is consistent with hearing sensitivity. Words were presented at 60 dB HL is above (greater than or equal to 60 dB HL) intensity level for average conversational speech. The NU-6 Ordered by Difficulty Word List (10 words) was used for testing. Contralateral masking was employed. RECOMMENDATIONS * Continue medical follow-up with Nasra Lo PA-C. * The patient was counseled regarding benefits/limitations of hearing aids and provided written educational materials. * Provided patient with list of sites that provide hearing aids for individuals who have Medicaid. * Re-evaluation as medically indicated or if a change in hearing is noted. Willi Painting, [facility] Clinical Bartender Helper SHI Abbrev- iation Definition Degree of hearing sensitivity dB range WNL within normal limits WNL 0 - 20 SNHL sensorineural hearing loss Mild 20-40 CHL conductive hearing loss Moderate 40-55 MHL mixed hearing loss Moderately-Severe 55-70 WRS word recognition score Severe 70-90 ME middle ear Profound 90 + TM tympanic membrane Referring Provider: NASRA LO [[id number]] Allergies As of Date: 10/08/2023 Noted Allergy Reaction ALOE VERA 04/02/2012 14 - Other: See Comments BACLOFEN 01/01/2020 14 - Other: See Comments 7 - Swelling CEPHALEXIN 04/02/2012 8 - GI Upset 11 - Vomiting CIPROFLOXACIN 04/02/2012 14 - Other: See Comments CYCLOBENZAPRIN (more content not included)... Normal [facility] COVID CepheidOrdered By: John Newell on 10-06-2023 SARS-CoV-2 (COVID-19) Ab IA Ql Negative Negative [facility] Comment on above: This is a duplicate Cepheid Xpert Xpress CoV-2/Flu/RSV Plus RNA by RT-PCR result to be used for statistical tracking purpose only. SARS-CoV-2 (COVID-19) RNA DEBBIE+probe Ql (Unsp spec) [facility] COVID-19 / Flu A/B / RSV PCR on 10-06-2023 SARS-CoV-2 (COVID-19) RNA DEBBIE+probe Ql (Unsp spec) COVID-19 Cepheid Result Negative for SARS-CoV-2 RNA by RT-PCR Flu A Cepheid Result Negative for Flu A RNA by RT-PCR Flu B Cepheid Result Negative for Flu B RNA by RT-PCR RSV Cepheid Result Negative for RSV RNA by RT-PCR COVID19 Blank Space Reference: Negative COVID19 Blank Space Cepheid Disclaimer The Cepheid Xpert Xpress CoV-2/Flu/RSV Plus has Cepheid Disclaimer not been FDA cleared or approved; this test has Cepheid Disclaimer been authorized by FDA under an EUA for use by Cepheid Disclaimer authorized laboratories; this test has been Cepheid Disclaimer authorized only for the simultaneous qualitative Cepheid Disclaimer detection and differentiation of nucleic acids from Cepheid Disclaimer SARS-CoV-2, influenza A, influenza B, and Cepheid Disclaimer respiratory syncytial virus (RSV), and not for any Cepheid Disclaimer other viruses or pathogens; and this test is only Cepheid Disclaimer authorized for the duration of the declaration that Cepheid Disclaimer circumstances exist justifying the authorization of Cepheid Disclaimer emergency use of in vitro diagnostic tests for Cepheid Disclaimer detection and/or diagnosis of COVID-19 under Cepheid Disclaimer Section 564(b)(1) of the Act, 21 U.S.C. 360bbb- Cepheid Disclaimer 3(b)(1), unless the authorization is terminated or Cepheid Disclaimer revoked sooner. PERFORMED BY: [place] [address] PATHOLOGIST ALUMINUM CONTAINER TESTER MATEO ROJAS M.D. Normal [facility] Comment on above: Performed By: #### L IPASE, BMP, CBC, HEPATIC #### [facility] [address] [place], [place] [id number] [facility] Cepheid COVID PCR Negativeon 10-06-2023 SARS-CoV-2 (COVID-19) RNA DEBBIE+probe Ql (Unsp spec) Negative Normal Negative [facility] Comment on above: Result Comment: This is a duplicate Cepheid Xpert Xpress CoV-2/Flu/RSV Plus RNA by RT-PCR result to be used for statistical tracking purpose only. PERFORMED BY: [place] [id number] PATHOLOGIST ALUMINUM CONTAINER TESTER MATEO ROJAS M.D. Performed By: #### L IPASE, BMP, CBC, HEPATIC #### [facility] [address] XR chest 2V*on 10-06-2023 XR chest 2V* [facility] [address] [place] [address] [place] [address] XRay Report Signed Patient: Lisa Fernando MR#: [id number] : 1975 Acct:[id number] Age/Sex: 48 / F ADM Date: 10/06/23 Loc: ER Room: Type: [facility] ER Attending Dr: Copies to: Gaudencio Newell APRN Ordering Provider: Gaudencio Newell APRN Date of Service: 10/06/23 XR/XR chest 2V*: Upper Respiratory Infection Chest 2 views CLINICAL HISTORY: Difficulty breathing and cough for one week. COMPARISON: Chest 03/23/2023. FINDINGS: Heart normal in size. No consolidation pneumothorax pleural effusion or free air. XR/XR chest 2V* IMPRESSION: NO ACUTE CARDIOPULMONARY ABNORMALITY. Impression dictated by: Erik Gipson Jr., D.O.10/06/2023 6:28 PM Dictation Location: [place] [address] Transcribed By: [facility] 10/06/231827 Dictated By: Erik Gipson Jr, DO 10/06/231826 Signed By: 10/06/231827 Normal [facility] CT TEMP BONES WO IVCONon CT TEMP BONES WO IVCON * * *Final Report* * * DATE OF EXAM: Sep 10 2023 10:03AM [facility] 0512 - CT TEMP BONES WO IVCON / PROCEDURE REASON: multiple diagnoses * * * * Physician Interpretation * * * * EXAMINATION: CT TEMP BONES WO IVCON Clinical history provided by the ordering clinician via order question and clinical decision support entries: Hearing loss, sensorineural. Sensorineural hearing loss (SNHL) of both ears. Dizziness Tinnitus, bilateral . Chronic bilateral otalgia with no findings on physical exam. Stated history: chronic bilat otalgia. TECHNIQUE: Spiral CT images through the temporal bones without contrast in high resolution bony algorithm. Coronal planar reconstructions provided. : [id number] Dose-Length Product (DLP): 323 mGy*cm. CT Dose Reduction Employed: No dose reduction techniques were required COMPARISON: Imported 11/29/2021 IAC MRI RESULT: RIGHT: External Auditory Canal/Superficial Soft Tissues: EAC is patent. Overlying superficial soft tissues and the tissues of the visualized inferotemporal fossa are within normal limits. Mastoid Air Cells and Middle Ear Cavity: Mastoid air cells and middle ear cavities are clear. Ossicles: Normal ossicular positioning and alignment. Developmental lucency along the bodies of the incus on the left greater than right and minimal developmental contour irregularity of the left greater than right malleolus heads. No suspicious ossicular destructive process. Inner Ear Structures: Inner ear structures are within normal limits. No evidence of dysmorphism, bony destruction or dehiscence. Internal Auditory Canal: Mild craniocaudal bony stenosis at the level of the porus acusticus (series 7, image 115), although otherwise unremarkable appearance of the internal auditory canal. Skull Base: No evidence of bony destruction. LEFT: External Auditory Canal/Superficial Soft Tissues: EAC is patent. Overlying superficial soft tissues and the tissues of the visualized inferotemporal fossa are within normal limits. Mastoid Air Cells and Middle Ear Cavity: Mastoid air cells and middle ear cavities are clear. Ossicles: Ossicles are normally aligned and intact. Inner Ear Structures: Inner ear structures are within normal limits. No evidence of dysmorphism, bony destruction or dehiscence. Internal Auditory Canal: Mild craniocaudal bony stenosis at the level of the porus acusticus (series 8, image 122), although otherwise unremarkable appearance of the internal auditory canal. Skull Base: No evidence of bony destruction. Balancing Machine Operator (topogram) images: Noncontributory IMPRESSION: Mild developmental bony changes involving the ossicles and internal auditory canals with no focal derangement otherwise to suggest an etiology for bilateral otalgia. Career Center Advisor: PSCB Transcribe Date/Time: Sep 10 2023 11:09A Dictated by : MICHAEL FONTENOT MD This examination was interpreted and the report reviewed and electronically signed by: MICHAEL FONTENOT MD on Sep 10 2023 11:19AM EST [id number] Normal [facility] [place] US KIDNEY/BLADDERon 09-10-19 US KIDNEY/BLADDER * * *Final Report* * * DATE OF EXAM: Sep 10 2023 11:33AM [facility] 1055 - US KIDNEY/BLADDER / PROCEDURE REASON: multiple diagnoses * * * * Physician Interpretation * * * * EXAMINATION: RENAL ULTRASOUND CLINICAL HISTORY: Flank pain. Stress incontinence. TECHNIQUE: Sonography of the kidneys and urinary bladder was performed. Images were obtained and stored in a permanent archive. MQ: UR_1 COMPARISON: None RESULT: Right Kidney: -Renal length: 12.1 cm -Parenchyma: Normal parenchymal echogenicity. Normal parenchymal thickness. -Collecting system: No hydronephrosis. -Calculus: No echogenic, shadowing calculus. -Lesion: None. Left Kidney: -Renal length: 11.2 cm -Parenchyma: Normal parenchymal echogenicity. Normal parenchymal thickness. -Collecting system: No hydronephrosis. -Calculus: There is an echogenic 5 mm structure in the lower pole of the left kidney. Twinkle artifact is noted on color Doppler imaging. -Lesion: None. Bladder: Normal sonographic appearance. IMPRESSION: 1. No obstructive nephrolithiasis in the lower pole of the left kidney. 2. No sonographic evidence of right-sided renal calculus. No hydronephrosis in either kidney. 3. Grossly unremarkable sonographic appearance of the urinary bladder. Career Center Advisor: PSCB Transcribe Date/Time: Sep 10 2023 3:03P Dictated by : TIANA POTTER MD This examination was interpreted and the report reviewed and electronically signed by: TIANA POTTER MD on Sep 10 2023 3:14PM EST [id number] Normal [facility] CNPNon 09-06-2023 CNPN Telephone (SPMECO) LISA FERNANDO ([id number]) 1975 F Date Time Provider Department 09/06/23 MELONY ALAMO SPMECO During your visit today, we recorded the following information about you: Allergies As of Date: 09/06/2023 Noted Allergy Reaction ALOE VERA 04/02/2012 14 - Other: See Comments BACLOFEN 01/01/2020 14 - Other: See Comments 7 - Swelling CEPHALEXIN 04/02/2012 8 - GI Upset 11 - Vomiting CIPROFLOXACIN 04/02/2012 14 - Other: See Comments CYCLOBENZAPRINE 11/11/2013 4 - Hives 16 - Unknown GABAPENTIN 04/02/2012 4 - Hives 16 - Unknown 14 - Other: See Comments MENTHOL 04/02/2012 14 - Other: See Comments METFORMIN 11/11/2013 4 - Hives MORPHINE 08/27/2023 8 - GI Upset NSAIDS (NON-STEROIDAL ANTI-INFLAM*01/04/2019 4 - Hives 2 - Rash 14 - Other: See Comments AZITHROMYCIN 04/02/2012 9 - Itching 2 - Rash Date Reviewed: 08/29/2023 Reviewed by: Any Fernando MA - Fully Assessed Reason for Visit: Patient Update [1234] Cmt: spoke to patient. kidney pain vs back spine pain. she will be seen in office. ok to schedule. Prescriptions as of 09/06/2023 - cyanocobalamin (VITAMIN B-12) 1,000 mcg tab Take 1,000 mcg by mouth once daily. - rimegepant sulfate (NURTEC ODT ORAL) Take 75 mg by mouth. - glipiZIDE (GLUCOTROL) 5 mg tablet Take 5 mg by mouth daily before breakfast. - dulaglutide (TRULICITY) 4.5 mg/0.5 mL pen injector Inject 4.25 mg subcutaneously one time a week. - methocarbamol (ROBAXIN) 750 mg tablet Take 750 mg by mouth as needed. - pregabalin (LYRICA) 50 mg capsule Take 50 mg by mouth two times a day. - carBAMazepine (TEGRETOL) 200 mg tablet Take 200 mg by mouth twice daily. - potassium chloride SR (MICRO-K) 10 mEq CR capsule 1 capsule DAILY (route: oral) - loratadine (CLARITIN) 10 mg tablet Take 1 tablet by mouth once daily. - sodium chloride (SALINE NASAL) 0.65 % nasal spray Use 2 Sprays in the nose twice daily. - fluticasone (FLONASE ALLERGY RELIEF) 50 mcg/actuation nasal spray Use 1 [place] in each nostril twice daily. - DULoxetine (CYMBALTA) 60 mg capsule Take 60 mg by mouth. - celecoxib (CELEBREX) 200 mg capsule 1 capsule DAILY (route: oral) - doxycycline hyclate (VIBRAMYCIN) 100 mg capsule - furosemide (LASIX) 40 mg tablet furosemide 40 mg tablet TAKE 1 TABLET BY MOUTH ONCE DAILY FOR 30 DAYS - ibuprofen (MOTRIN) 800 mg tablet - liraglutide (VICTOZA) 0.6 mg/0.1 mL (18 mg/3 mL) Victoza 3-Arden 0.6 mg/0.1 mL (18 mg/3 mL) subcutaneous pen injector - metFORMIN (GLUCOPHAGE) 500 mg tablet metformin 500 mg tablet TAKE 1 TABLET BY MOUTH TWICE DAILY - potassium chloride SR (MICRO-K) 10 mEq CR capsule potassium chloride ER 10 mEq capsule,extended release - albuterol HFA (PROVENTIL HFA, VENTOLIN HFA) 90 mcg/actuation inhaler Inhale 2 Puffs as instructed. - meloxicam (MOBIC) 15 mg tablet Take 1 tablet by mouth once daily. - PROAIR HFA 90 mcg/actuation inhaler as needed. - carbidopa-levodopa (SINEMET 10-100) 10-100 mg per tablet 1 tablet daily at bedtime. - LATUDA 20 mg tablet 1 tablet once daily. - OXcarbazepine (TRILEPTAL) 150 mg tablet 1 tablet twice daily. Problem List As Of Date 09/06/2023 Noted Resolved NO SHOW [] 12/09/2014 Right ankle pain [M25.571] 06/03/2015 Pain in right foot [M79.671] 06/03/2015 Lisfranc dislocation [S93.326A] 06/03/2015 DJD (degenerative joint disease), ankle and mae*06/23/2015 PTTD (posterior tibial tendon dysfunction) [M76*06/23/2015 Morbid obesity (HCC) [E66.01] 06/23/2015 Encounter Status:Closed by MELONY ALAMO on 09/06/23 [facility] CNOVon 08-29-2023 CNOV Office Visit (UROLLN ) LISA FERNANDO ([id number]) 1975 F Date Time Provider Department 08/29/23 8:00 AM CARTER HALL During your visit today, we recorded the following information about you: Pulse Blood pressure Weight 93/minute 122/47 100.7 kg Carter Hall MD 08/29/2023 12:31 PM Addendum [facility] NEW PATIENT HISTORY AND PHYSICAL EXAM PATIENT INFO: Lisa Fernando 48 year old CHIEF COMPLAINT: Urinary stone disease HISTORY: Lisa Fernando is a 48 year old diabetic obese female with HO urinary stones who went to ED on 08/07/23 due left flank pain and CT scan showed ---> 2 stones in lower pole of the left kidney. Size was not reported. (Report not available but shown by pt on the cell phone). She also has a HO UTI and she had gross hematuria back then. She was treated with Abx and improved significantly. She also has a KUB reported in 05/13/23 showing left nephrolithiasis similar to prior studies. Pt did not have spontaneous passage of the stone. Pt is currently symptomatic Urinalysis with signs of infection No Pt refers family history of kidney stones. No In addition, pt refers stress UI since after she had her second son. She underwent hysterectomy and bladder suspension 4 years ago. She improved her stress incontinence but it recurred months later. She has never done PT. Consultation requested by General Foundry Worker Role and Specialty Contact Info Address Start End Comments Brigida Corea CNP General (Family Medicine) [address] [facility] [address] 08/27/2023 - - for an opinion regarding flank pain and JOHN. My final recommendations will be communicated back to the requesting physician by way of shared medical record or letter via US mail Visit complexity inherent to evaluation and management associated with medical care services that serve as the continuing focal point for all needed health care services and/or with medical care services that are part of ongoing care related to a patient?s single, serious condition or a complex condition. Location: left flank Pain Character: sharp Severity Scale: moderate, severe Duration: 10 months Timing: intermittently Modifying Factors: Worsened by exercise Associated signs and symptoms: hematuria PAST MEDICAL HISTORY: PAST MEDICAL HISTORY Diagnosis Date H/O abdominal hysterectomy 01/2020 PAST SURGICAL HISTORY: PAST SURGICAL HISTORY Procedure Laterality Date TOTAL ABDOM HYSTERECTOMY FAMILY HISTORY: No family history on file. SOCIAL HISTORY: Social History Tobacco Use Smoking status: Never Smokeless tobacco: Never Substance Use Topics Alcohol use: Yes Drug use: Never Recent Data from [facility] Related to POCT glucose meter Component 06/19/23 06/19/23 10/25/22 03/19/22 03/19/22 11/21/20 Glucose POC 108 High 111 High 95 68 Low 104 High 201 High MEDICATIONS: Current Outpatient Medications Medication Instructions albuterol HFA (PROVENTIL HFA, VENTOLIN HFA) 90 mcg/actuation inhaler 2 Puffs, INHALATION carBAMazepine (TEGRETOL) 200 mg, ORAL, 2 TIMES DAILY carbidopa-levodopa (SINEMET 10-100) 10-100 mg per tablet 1 tablet, AT BEDTIME celecoxib (CELEBREX) 200 mg capsule 1 capsule DAILY (route: oral) cyanocobalamin (VITAMIN B-12) 1,000 mcg, ORAL, DAILY doxycycline hyclate (VIBRAMYCIN) 100 mg capsule No dose, route, or frequency recorded. dulaglutide (TRULICITY) 4.25 mg, SUBCUTANEOUS, 1 TIME WEEKLY DULoxetine (CYMBALTA) 60 mg, ORAL fluticasone (FLONASE ALLERGY RELIEF) 50 mcg/actuation nasal spray 1 [place], EACH NOSTRIL, 2 TIMES DAILY furosemide (LASIX) 40 mg tablet furosemide 40 mg tablet TAKE 1 TABLET BY MOUTH ONCE DAILY FOR 30 DAYS glipiZIDE (GLUCOTROL) 5 mg, ORAL, DAILY BEFORE BREAKFAST ibuprofen (MOTRIN) 800 mg tablet No dose, route, or frequency recorded. LATUDA 20 mg tablet 1 tablet, DAILY liraglutide (VICTOZA) 0.6 mg/0.1 mL (18 mg/3 mL) Victoza 3-Arden 0.6 mg/0.1 mL (18 mg/3 mL) subcutaneous pen injector loratadine (CLARITIN) 10 mg, ORAL, DAILY meloxicam (MOBIC) 15 mg, ORAL, DAILY metFORMIN (GLUCOPHAGE) 500 mg tablet metformin 500 mg tablet TAKE 1 TABLET BY MOUTH TWICE DAILY methocarbamol (ROBAXIN) 750 mg, ORAL, NEEDED OXcarbazepine (TRILEPTAL) 150 mg tablet 1 tablet, 2 TIMES DAILY potassium chloride SR (MICRO-K) 10 mEq CR capsule potassium chloride ER 10 mEq capsule,extended release potassium chloride SR (MICRO-K) 10 mEq CR capsule 1 capsule DAILY (route: oral) pregabalin (LYRICA) 50 mg, ORAL, 2 TIMES DAILY PROAIR HFA 90 mcg/actuation inhaler NEEDED rimegepant sulfate (NURTEC ODT ORAL) 75 mg, ORAL sodium chloride (SALINE NASAL) 0.65 % nasal spray 2 Sprays, NASAL, 2 TIMES DAILY LABS: No results found for: CREAT Basic metabolic panel Specimen: Blood - Venous blood specimen (specimen) Comp (more content not included)... Normal [facility] CNOVon 08-27-2023 CNOV Office Visit (OTOLMN ) LISA FERNANDO ([id number]) 1975 F Date Time Provider Department 08/27/23 8:50 AM NASRA LO OTOLMN During your visit today, we recorded the following information about you: Nasra Lo PA-C 08/27/2023 9:27 AM Signed History of Present Illness Ms. LISA FERNANDO is a 48 year old female presenting to the clinic for a follow up of her bilateral otalgia and hearing loss. The following information above was copied, reviewed and is still up to date. Last seen 08/28/2022. Since last seen, She is still getting sharp pain in the ears. Does feel the hearing has worsened over time. Tinnitus, bilaterally. Reports dizziness, mostly with getting up/standing up. She is losing her balance/lightheadednes s. There are times it can be room spinning. Denies falls. Recall, she has not been to vestibular PT for her symptoms. Otorrhea: denies Ear Pressure/Fullness: denies Facial Numbness, Weakness or Tingling: denies ALLERGIES Allergen Reactions Aloe Vera Other: See Comments Baclofen Other: See Comments, Swelling Cephalexin GI Upset, Vomiting Ciprofloxacin Other: See Comments Cyclobenzaprine Hives, Unknown Gabapentin Hives, Unknown, Other: See Comments Menthol Other: See Comments Metformin Hives Morphine GI Upset Nsaids (Non-Steroid* Hives, Rash, Other: See Comments Azithromycin Itching, Rash Current Outpatient Medications on File Prior to Visit Medication Sig carBAMazepine (TEGRETOL) 200 mg tablet Take 200 mg by mouth twice daily. potassium chloride SR (MICRO-K) 10 mEq CR capsule 1 capsule DAILY (route: oral) loratadine (CLARITIN) 10 mg tablet Take 1 tablet by mouth once daily. sodium chloride (SALINE NASAL) 0.65 % nasal spray Use 2 Sprays in the nose twice daily. fluticasone (FLONASE ALLERGY RELIEF) 50 mcg/actuation nasal spray Use 1 [place] in each nostril twice daily. DULoxetine (CYMBALTA) 60 mg capsule Take 60 mg by mouth. celecoxib (CELEBREX) 200 mg capsule 1 capsule DAILY (route: oral) doxycycline hyclate (VIBRAMYCIN) 100 mg capsule furosemide (LASIX) 40 mg tablet furosemide 40 mg tablet TAKE 1 TABLET BY MOUTH ONCE DAILY FOR 30 DAYS ibuprofen (MOTRIN) 800 mg tablet liraglutide (VICTOZA) 0.6 mg/0.1 mL (18 mg/3 mL) Victoza 3-Arden 0.6 mg/0.1 mL (18 mg/3 mL) subcutaneous pen injector metFORMIN (GLUCOPHAGE) 500 mg tablet metformin 500 mg tablet TAKE 1 TABLET BY MOUTH TWICE DAILY potassium chloride SR (MICRO-K) 10 mEq CR capsule potassium chloride ER 10 mEq capsule,extended release albuterol HFA (PROVENTIL HFA, VENTOLIN HFA) 90 mcg/actuation inhaler Inhale 2 Puffs as instructed. meloxicam (MOBIC) 15 mg tablet Take 1 tablet by mouth once daily. PROAIR HFA 90 mcg/actuation inhaler as needed. (Patient not taking: Reported on 04/04/2022) carbidopa-levodopa (SINEMET 10-100) 10-100 mg per tablet 1 tablet daily at bedtime. LATUDA 20 mg tablet 1 tablet once daily. OXcarbazepine (TRILEPTAL) 150 mg tablet 1 tablet twice daily. No current facility-administered medications on file prior to visit. Objective: There were no vitals taken for this visit. Appearance: Non-syndromic, cooperative and calm Communication: Voice has adequate volume; there is no stridor Head/Face: head and facial contours are symmetric Facial nerve 1/6 bilateral Skin: no skin lesions or scarring on face Ears: AD Removed cerumen from the canal opening. Patient noted tenderness at the opening. TM is intact, but appears dimeric. Removed cerumen from the canal. TM is intact. Nose: external exam with straight profile Oral Cavity: Poor dentition Oropharynx: mucosa is pink and moist Neck: no LAD Lymphatic: No lymphadenopathy or masses Neuro/Psych.: Alert and Oriented x 3 Cranial nerves intact Data Review: Assessment: (H90.3) Sensorineural hearing loss (SNHL) of both ears (primary encounter diagnosis) (R42) Dizziness (H93.13) Tinnitus, bilateral (K21.9) Gastroesophageal reflux disease, unspecified whether esophagitis present (J34.9) Nose trouble (H61.23) Bilateral impacted cerumen Plan: Patient to repeat audiogram given the changes in hearing. CT Temporal Bone to rule out middle ear abnormalities given chronic ear pain and no physical exam findings. Patient had concerns for GERD and skin in her nose. Recommended she see a colleague. Follow up after CT and audiogram. Orders: Office Visit on 08/27/23 CT TEMP BONES WO IVCON CONSULT TO ENT HEARING TEST/AUDIOGRAM cyanocobalamin (VITAMIN B-12) 1,000 mcg tab rimegepant sulfate (NURTEC ODT ORAL) glipiZIDE (GLUCOTROL) 5 mg tablet dulaglutide (TRULICITY) 4.5 mg/0.5 mL pen injector methocarbamol (ROBAXIN) 750 mg tablet pregabalin (LYRICA) 50 mg capsule Procedures: CERUMEN REMOVAL: Cerumen was removed under otomicroscopy from the Bilateral ear with curette. Preop diagnosis: Cerumen impaction. It belinda (more content not included)... Normal [facility] Alanine aminotransferase [En zymatic activity/volume] in Serum or PlasmaOrdered By: Brigida Corea on 08-12-2023 ALT [Catalytic activity/Vol] 12 U/L Normal 7-52 [facility] Comment on above: Order Comment: Reaso n for Exam Type 2 diabetes mellitus with other specified complication, Reason for Exam B12 deficiency Reason for Exam Restless leg syndrome Performed By: #### L IPASE, BMP, CBC, HEPATIC #### [facility] [address] Albumin [Mass/volume] in Ser um or Plasma by Bromocresol green (BCG) dye binding methoOrdered By: Brigida Corea on 08-12-2023 Albumin BCG dye [Mass/Vol] 4.2 g/dL 3.5-5.7 [facility] Alkaline phosphatase [Enzyma tic activity/volume] in Serum or PlasmaOrdered By: Brigida Corea on 08-12-2023 ALP [Catalytic activity/Vol] 107 U/L High 34-104 [facility] Comment on above: Order Comment: Reaso n for Exam Type 2 diabetes mellitus with other specified complication, Reason for Exam B12 deficiency Reason for Exam Restless leg syndrome Performed By: #### L IPASE, BMP, CBC, HEPATIC #### [facility] [address] [place] [address] Aspartate aminotransferase [ Enzymatic activity/volume] in Serum or PlasmaOrdered By: Brigida Corea on 08-12-2023 AST [Catalytic activity/Vol] 14 U/L Normal 13-39 [facility] Comment on above: Order Comment: Reaso n for Exam Type 2 diabetes mellitus with other specified complication, Reason for Exam B12 deficiency Reason for Exam Restless leg syndrome Performed By: #### L IPASE, BMP, CBC, HEPATIC #### [facility] [address] [place] [address] Automated basophil %Ordered By: Brigida Corea on 08-12-2023 Basophils/100 WBC (Bld) 0.7 % Normal . [facility] Comment on above: Order Comment: Reaso n for Exam Type 2 diabetes mellitus with other specified complication, Performed By: #### L IPASE, BMP, CBC, HEPATIC #### [facility] [address] [place] [address] [place] Automated basophil countOrde red By: Brigida Corea on 08-12-2023 Basophils (Bld) [#/Vol] 0.1 10*3/uL Normal 0.0-0.2 [facility] Comment on above: Order Comment: Reaso n for Exam Type 2 diabetes mellitus with other specified complication, Result Comment: PERF ORMED BY: [place] [address] PATHOLOGIST ALUMINUM CONTAINER TESTER MATEO ROJAS M.D. Performed By: #### L IPASE, BMP, CBC, HEPATIC #### [facility] [address] [place] [address] Automated blood monocyte cou ntOrdered By: Brigida Corea on 08-12-2023 Monocytes (Bld) [#/Vol] 0.7 10*3/uL Normal 0.0-0.8 [facility] Comment on above: Order Comment: Reaso n for Exam Type 2 diabetes mellitus with other specified complication, Performed By: #### L IPASE, BMP, CBC, HEPATIC #### [address] Automated eosinophil %Ordere d By: Brigida Corea on 08-12-2023 Eosinophils/100 WBC (Bld) 3.1 % Normal . [facility] Comment on above: Order Comment: Reaso n for Exam Type 2 diabetes mellitus with other specified complication, Performed By: #### L IPASE, BMP, CBC, HEPATIC #### [facility] [address] [place] [address] Automated eosinophil countOr dered By: Brigida Corea on 08-12-2023 Eosinophils (Bld) [#/Vol] 0.3 10*3/uL Normal 0.0-0.45 [facility] Comment on above: Order Comment: Reaso n for Exam Type 2 diabetes mellitus with other specified complication, Performed By: #### L IPASE, BMP, CBC, HEPATIC #### [facility] [address] [place] [address] Automated monocyte %Ordered By: Brigida Corea on 08-12-2023 Monocytes/100 WBC (Bld) 7.8 % Normal . [facility] Comment on above: Order Comment: Reaso n for Exam Type 2 diabetes mellitus with other specified complication, Performed By: #### L IPASE, BMP, CBC, HEPATIC #### [facility] [address] [place] [address] [place] Automated neutrophil %Ordere d By: Brigida Corea on 08-12-2023 Neutrophils/100 WBC (Bld) 64.3 % Normal . [facility] Comment on above: Order Comment: Reaso n for Exam Type 2 diabetes mellitus with other specified complication, Performed By: #### L IPASE, BMP, CBC, HEPATIC #### [facility] [address] [place] [id number] [place] Bilirubin.total [Mass/volume ] in Serum or PlasmaOrdered By: Brigida Corea on 08-12-2023 Bilirubin [Mass/Vol] 0.3 mg/dL Normal 0.3-1.0 [facility] Comment on above: Order Comment: Reaso n for Exam Type 2 diabetes mellitus with other specified complication, Reason for Exam B12 deficiency Reason for Exam Restless leg syndrome Performed By: #### L IPASE, BMP, CBC, HEPATIC #### [facility] [address] [place] [id number] [place] Calcium [Mass/volume] in Ser um or PlasmaOrdered By: Brigida Corea on 08-12-2023 Calcium [Mass/Vol] 9.5 mg/dL Normal 8.6-10.3 [facility] Comment on above: Order Comment: Reaso n for Exam Type 2 diabetes mellitus with other specified complication, Reason for Exam B12 deficiency Reason for Exam Restless leg syndrome Performed By: #### L IPASE, BMP, CBC, HEPATIC #### [facility] [address] [place] [id number] [place] Carbon dioxide, total [Moles /volume] in Serum or PlasmaOrdered By: Brigida Corea on 08-12-2023 CO2 [Moles/Vol] 30.3 mmol/L Normal 21.0-31.0 [facility] Comment on above: Order Comment: Reaso n for Exam Type 2 diabetes mellitus with other specified complication, Reason for Exam B12 deficiency Reason for Exam Restless leg syndrome Performed By: #### L IPASE, BMP, CBC, HEPATIC #### [facility] [address] [place] [id number] [place] Chloride [Moles/volume] in S claudia or PlasmaOrdered By: Brigida Corea on 08-12-2023 Chloride [Moles/Vol] 102 mmol/L Normal 98-107 [facility] Comment on above: Order Comment: Reaso n for Exam Type 2 diabetes mellitus with other specified complication, Reason for Exam B12 deficiency Reason for Exam Restless leg syndrome Performed By: #### L IPASE, BMP, CBC, HEPATIC #### [facility] [address] [place] [address] [place] Cholesterol [Mass/volume] in Serum or PlasmaOrdered By: Brigida Corea on 08-12-2023 Cholesterol [Mass/Vol] 196 mg/dL Normal 140-200 [facility] Comment on above: Chol less than 200 m g/dl low riskChol 201-239 mg/dl borderline riskChol 240 mg/dl and greater high risk Order Comment: Reaso n for Exam Type 2 diabetes mellitus with other specified complication, Reason for Exam B12 deficiency Reason for Exam Restless leg syndrome Result Comment: Chol less than 200 mg/dl low risk Chol 201-239 mg/dl borderline risk Chol 240 mg/dl and greater high risk Performed By: #### L IPASE, BMP, CBC, HEPATIC #### [facility] [address] [place] [address] [place] Cholesterol in LDL Calc [Mas s/Vol]Ordered By: Brigida Corea on 08-12-2023 Cholesterol in LDL [Mass/Vol] 107 mg/dL 0-100 [facility] Comment on above: LDL ATP III CLASSIFI CATIONLDL less than 100 mg/dL OptimalLDL 100-129 mg/dL Near or above optimalLDL 130-159 mg/dL Borderline highLDL 160-189 mg/dL HighLDL greater than 189 mg/dL Very high Cholesterol in VLDL Calc [Ma ss/Vol]Ordered By: Brigida Corea on 08-12-2023 Cholesterol in VLDL [Mass/Vol] 37 mg/dL [facility] Complete Blood Count Auto Di ffon 08-12-2023 Mean Corpuscular HGB Conc 34.7 g/dL Normal 32.0-35.0 [facility] Comment on above: Order Comment: Reaso n for Exam Type 2 diabetes mellitus with other specified complication, Performed By: #### L IPASE, BMP, CBC, HEPATIC #### [facility] [address] [place] [address] [place] NRBC% 0.1 /100{WBC} Normal 0-0.5 [facility] Comment on above: Order Comment: Reaso n for Exam Type 2 diabetes mellitus with other specified complication, Performed By: #### L IPASE, BMP, CBC, HEPATIC #### [facility] [address] [place] [address] Comprehensive Metabolic Pane bettye 08-12-2023 Albumin [Mass/Vol] 4.2 g/dL Normal 3.5-5.7 [facility] Comment on above: Order Comment: Reaso n for Exam Type 2 diabetes mellitus with other specified complication, Reason for Exam B12 deficiency Reason for Exam Restless leg syndrome Performed By: #### L IPASE, BMP, CBC, HEPATIC #### [facility] [address] [place] [address] GFR/1.73 sq M.predicted MDRD (S/P/Bld) [Vol rate/Area] mL/min/{1.73_m2} Normal [facility] Comment on above: Order Comment: Reaso n for Exam Type 2 diabetes mellitus with other specified complication, Reason for Exam B12 deficiency Reason for Exam Restless leg syndrome Performed By: #### L IPASE, BMP, CBC, HEPATIC #### [facility] [address] [place] [address] Creatinine [Mass/volume] in Serum or PlasmaOrdered By: Brigida Corea on 08-12-2023 Creatinine [Mass/Vol] 0.60 mg/dL Normal 0.60-1.20 [facility] Comment on above: Order Comment: Reaso n for Exam Type 2 diabetes mellitus with other specified complication, Reason for Exam B12 deficiency Reason for Exam Restless leg syndrome Performed By: #### L IPASE, BMP, CBC, HEPATIC #### [facility] [address] [place] [address] Erythrocyte distribution wid th [Ratio] by Automated countOrdered By: Brigida Corea on 08-12-2023 Erythrocyte distribution width (RBC) [Ratio] 12.7 % Normal 11.9-15.3 [facility] Comment on above: Order Comment: Reaso n for Exam Type 2 diabetes mellitus with other specified complication, Performed By: #### L IPASE, BMP, CBC, HEPATIC #### [facility] [address] Erythrocytes [#/volume] in B lood by Automated countOrdered By: Brigida Corea on 08-12-2023 RBC (Bld) [#/Vol] 4.32 10*6/uL Normal 3.60-5.00 [facility] Comment on above: Order Comment: Reaso n for Exam Type 2 diabetes mellitus with other specified complication, Performed By: #### L IPASE, BMP, CBC, HEPATIC #### [facility] [address] Folate [Mass/volume] in Seru m or PlasmaOrdered By: Brigida Corea on 08-12-2023 Folate [Mass/Vol] 9.0 ng/mL >5.9 [facility] Comment on above: Folate reference ran ge: >5.9 ng/mlThe WHO technical consultation on folate and vitamin [id number] has determined that folate concentrations lessthan 4 ng/ml are considered deficient. Glucose [Mass/volume] in Ser um or PlasmaOrdered By: Brigida Corea on 08-12-2023 Glucose [Mass/Vol] 85 mg/dL Normal 70-100 [facility] Comment on above: ADA recommended refe rence rangeRandom Glucose Reference Range is dependent on time and content of last meal. Glucose of more than 200 mg/dL in a nonstressed, ambulatory subject supports the diagnosis of Diabetes Mellitus. Order Comment: Reaso n for Exam Type 2 diabetes mellitus with other specified complication, Reason for Exam B12 deficiency Reason for Exam Restless leg syndrome Result Comment: Cerulean om Glucose Reference Range is dependent on time and content of last meal. Glucose of more than 200 mg/dL in a nonstressed, ambulatory subject supports the diagnosis of Diabetes Mellitus. ADA recommended reference range Performed By: #### L IPASE, BMP, CBC, HEPATIC #### [facility] [address] Hematocrit [Volume Fraction] of Blood by Automated countOrdered By: Brigida Corea on 08-12-2023 Hematocrit (Bld) [Volume fraction] 36.1 % Normal 34.0-46.4 [facility] Comment on above: Order Comment: Reaso n for Exam Type 2 diabetes mellitus with other specified complication, Performed By: #### L IPASE, BMP, CBC, HEPATIC #### [facility] [address] Hemoglobin [Mass/volume] in BloodOrdered By: Brigida Corea on 08-12-2023 Hemoglobin (Bld) [Mass/Vol] 12.5 g/dL Normal 11.8-15.4 [facility] Comment on above: Order Comment: Reaso n for Exam Type 2 diabetes mellitus with other specified complication, Performed By: #### L IPASE, BMP, CBC, HEPATIC #### [facility] [address] Leukocytes [#/volume] correc cristian for nucleated erythrocytes in Blood by Automated counOrdered By: Brigida Corea on 08-12-2023 WBC corrected for nucl RBC Auto (Bld) [#/Vol] 9.0 10*3/uL 3.8-11.6 [facility] Leukocytes [#/volume] in Blo od by Automated countOrdered By: Brigida Corea on 08-12-2023 WBC (Bld) [#/Vol] 9.0 10*3/uL Normal 3.8-11.6 [facility] Comment on above: Order Comment: Reaso n for Exam Type 2 diabetes mellitus with other specified complication, Performed By: #### L IPASE, BMP, CBC, HEPATIC #### [facility] [address] Lipid Panelon 08-12-2023 LDL Cholesterol,Calculate d 107 mg/dL High 0-100 [facility] Comment on above: Order Comment: Reaso n for Exam Type 2 diabetes mellitus with other specified complication, Reason for Exam B12 deficiency Reason for Exam Restless leg syndrome Result Comment: LDL ATP III CLASSIFICATION LDL less than 100 mg/dL Optimal LDL 100-129 mg/dL Near or above optimal LDL 130-159 mg/dL Borderline high LDL 160-189 mg/dL High LDL greater than 189 mg/dL Very high Performed By: #### L IPASE, BMP, CBC, HEPATIC #### [facility] [address] Triglyceride w/Reflex 185 mg/dL High 0-149 [facility] Comment on above: Order Comment: Reaso n for Exam Type 2 diabetes mellitus with other specified complication, Reason for Exam B12 deficiency Reason for Exam Restless leg syndrome Result Comment: TRIG ATP III CLASSIFICATION TRIG less than 150 mg/dL Normal TRIG 150-199 mg/dL Borderline high TRIG 200-500 mg/dL High TRIG greater than 500 mg/dL Very high Standard traceable to the Center for Disease Conrtrol and Prevention (CDC) test method. Performed By: #### L IPASE, BMP, CBC, HEPATIC #### [facility] [address] [place] [address] VLDL CHOLESTEROL 37 mg/dL Normal [facility] Comment on above: Order Comment: Reaso n for Exam Type 2 diabetes mellitus with other specified complication, Reason for Exam B12 deficiency Reason for Exam Restless leg syndrome Performed By: #### L IPASE, BMP, CBC, HEPATIC #### [facility] [address] [place] [address] [place] Lymphocytes [#/volume] in Bl ood by Automated countOrdered By: Brigida Corea on 08-12-2023 Lymphocytes (Bld) [#/Vol] 2.2 10*3/uL Normal 1.00-4.8 [facility] Comment on above: Order Comment: Reaso n for Exam Type 2 diabetes mellitus with other specified complication, Performed By: #### L IPASE, BMP, CBC, HEPATIC #### [place] [address] [place] Lymphocytes/100 leukocytes i n Blood by Automated countOrdered By: Brigida Corea on 08-12-2023 Lymphocytes/100 WBC (Bld) 24.1 % Normal . [facility] Comment on above: Order Comment: Reaso n for Exam Type 2 diabetes mellitus with other specified complication, Performed By: #### L IPASE, BMP, CBC, HEPATIC #### [facility] [address] [place] [address] [place] MCH [Entitic mass] by Automa cristian countOrdered By: Brigida Corea on 08-12-2023 MCH (RBC) [Entitic mass] 29.1 pg Normal 24.7-34.3 [facility] Comment on above: Order Comment: Reaso n for Exam Type 2 diabetes mellitus with other specified complication, Performed By: #### L IPASE, BMP, CBC, HEPATIC #### [facility] [address] [place] [address] MCHC Auto (RBC) [Mass/Vol]Or dered By: Brigida Corea on 08-12-2023 MCHC (RBC) [Mass/Vol] 34.7 g/dL 32.0-35.0 [facility] MCV [Entitic volume] by Auto mated countOrdered By: Brigida Corea on 08-12-2023 MCV (RBC) [Entitic vol] 83.7 fL Normal 80-100 [facility] Comment on above: Order Comment: Reaso n for Exam Type 2 diabetes mellitus with other specified complication, Performed By: #### L IPASE, BMP, CBC, HEPATIC #### [facility] [address] [place] [address] Neutrophils [#/volume] in Bl ood by Automated countOrdered By: Brigida Corea on 08-12-2023 Neutrophils (Bld) [#/Vol] 5.8 10*3/uL Normal 1.8-7.7 [facility] Comment on above: Order Comment: Reaso n for Exam Type 2 diabetes mellitus with other specified complication, Performed By: #### L IPASE, BMP, CBC, HEPATIC #### [facility] [address] [place] [address] No Panel InformationOrdered By: Brigida Corea on 08-12-2023 Estimated GFR (CKD-EPI) > 60.0 mL/Min [facility] Creatinine Clearance (Chem N/A [facility] Nucleated erythrocytes [Pres ence] in Blood by Automated countOrdered By: Brigida Corea on 08-12-2023 Nucleated RBC Auto Ql (Bld) 0.1 /100{WBC} 0-0.5 [facility] Platelet mean volume [Entiti c volume] in Blood by Automated countOrdered By: Brigida Corea on 08-12-2023 Platelet mean volume (Bld) [Entitic vol] 7.3 fL Normal 6.3-10.7 [facility] Comment on above: Order Comment: Reaso n for Exam Type 2 diabetes mellitus with other specified complication, Performed By: #### L IPASE, BMP, CBC, HEPATIC #### [facility] [address] Platelets [#/volume] in Bloo d by Automated countOrdered By: Brigida Corea on 08-12-2023 Platelets (Bld) [#/Vol] 324 10*3/uL Normal 150-450 [facility] Comment on above: Order Comment: Reaso n for Exam Type 2 diabetes mellitus with other specified complication, Performed By: #### L IPASE, BMP, CBC, HEPATIC #### [facility] [address] Potassium [Moles/volume] in Serum or PlasmaOrdered By: Brigida Corea on 08-12-2023 Potassium [Moles/Vol] 4.1 mmol/L Normal 3.5-5.1 [facility] Comment on above: Order Comment: Reaso n for Exam Type 2 diabetes mellitus with other specified complication, Reason for Exam B12 deficiency Reason for Exam Restless leg syndrome Performed By: #### L IPASE, BMP, CBC, HEPATIC #### [facility] [address] [place] [address] Protein [Mass/volume] in Ser um or PlasmaOrdered By: Brigida Corea on 08-12-2023 Protein [Mass/Vol] 7.2 g/dL Normal 6.4-8.9 [facility] Comment on above: Order Comment: Reaso n for Exam Type 2 diabetes mellitus with other specified complication, Reason for Exam B12 deficiency Reason for Exam Restless leg syndrome Performed By: #### L IPASE, BMP, CBC, HEPATIC #### [facility] [address] [place] [address] Serum globulin measurement b y calculation (mass/volume)Ordered By: Brigida Corea on 08-12-2023 Globulin (S) [Mass/Vol] 3.0 g/dL Normal [facility] Comment on above: Order Comment: Reaso n for Exam Type 2 diabetes mellitus with other specified complication, Reason for Exam B12 deficiency Reason for Exam Restless leg syndrome Performed By: #### L IPASE, BMP, CBC, HEPATIC #### [facility] [address] Serum or plasma albumin/glob ulin mass ratioOrdered By: Brigida Corea on 08-12-2023 Albumin/Globulin [Mass ratio] 1.4 {ratio} Normal [facility] Comment on above: Order Comment: Reaso n for Exam Type 2 diabetes mellitus with other specified complication, Reason for Exam B12 deficiency Reason for Exam Restless leg syndrome Performed By: #### L IPASE, BMP, CBC, HEPATIC #### [facility] [address] Serum or plasma anion gap de terminationOrdered By: Brigida Corea on 08-12-2023 Anion gap [Moles/Vol] 9.8 mmol/L Normal 6.0-15.0 [facility] Comment on above: Order Comment: Reaso n for Exam Type 2 diabetes mellitus with other specified complication, Reason for Exam B12 deficiency Reason for Exam Restless leg syndrome Performed By: #### L IPASE, BMP, CBC, HEPATIC #### [facility] [address] Serum or plasma high density lipoprotein (HDL) cholesterol measurementOrdered By: Brigida Corea on 08-12-2023 Cholesterol in HDL [Mass/Vol] 52 mg/dL Normal 23-92 [facility] Comment on above: HDL CHOL ATP-III CLA SSIFICATION Cardiovascular RiskHDL > or equal to 60 mg/dL LOWHDL < 40 mg/dL HIGH Order Comment: Reaso n for Exam Type 2 diabetes mellitus with other specified complication, Reason for Exam B12 deficiency Reason for Exam Restless leg syndrome Result Comment: HDL CHOL ATP-III CLASSIFICATION Cardiovascular Risk HDL > or equal to 60 mg/dL LOW HDL < 40 mg/dL HIGH Performed By: #### L IPASE, BMP, CBC, HEPATIC #### [facility] [address] Serum or plasma total choles terol/high density lipoprotein (HDL) cholesterol mass ratOrdered By: Brigida Corea on 08-12-2023 Cholesterol.total/Cho lesterol in HDL [Mass ratio] 3.8 {ratio} Normal <5.0 [facility] Comment on above: Order Comment: Reaso n for Exam Type 2 diabetes mellitus with other specified complication, Reason for Exam B12 deficiency Reason for Exam Restless leg syndrome Performed By: #### L IPASE, BMP, CBC, HEPATIC #### [facility] [address] [place] [id number] [facility] Sodium [Moles/volume] in Ser um or PlasmaOrdered By: Brigida Corea on 08-12-2023 Sodium [Moles/Vol] 138 mmol/L Normal 136-145 [facility] Comment on above: Order Comment: Reaso n for Exam Type 2 diabetes mellitus with other specified complication, Reason for Exam B12 deficiency Reason for Exam Restless leg syndrome Performed By: #### L IPASE, BMP, CBC, HEPATIC #### [facility] [address] [place] [id number] [facility] Thyroid Stim Hormone w/Rflxo n 08-12-2023 Thyroid Stim Hormone w/Rflx 0.89 u[iU]/mL Normal 0.45-5.33 [facility] Comment on above: Order Comment: Reaso n for Exam Type 2 diabetes mellitus with other specified complication, Reason for Exam B12 deficiency Reason for Exam Restless leg syndrome Performed By: #### L IPASE, BMP, CBC, HEPATIC #### [facility] [address] [place] [id number] [facility] Thyrotropin [Units/volume] i n Serum or PlasmaOrdered By: Brigida Corea on 08-12-2023 TSH Qn 0.89 m[IU]/L 0.45-5.33 [facility] Triglyceride [Mass/volume] i n Serum or PlasmaOrdered By: Brigida Corea on 08-12-2023 Triglyceride [Mass/Vol] 185 mg/dL 0-149 [facility] Comment on above: TRIG ATP III CLASSIF ICATIONTRIG less than 150 mg/dL NormalTRIG 150-199 mg/dL Borderline highTRIG 200-500 mg/dL High TRIG greater than 500 mg/dL Very highStandard traceable to the Center for Disease Conrtrol and Prevention (CDC) test method. Urea nitrogen [Mass/volume] in Serum or PlasmaOrdered By: Brigida Corea on 08-12-2023 Urea nitrogen [Mass/Vol] 22 mg/dL Normal 7-25 [facility] Comment on above: Order Comment: Reaso n for Exam Type 2 diabetes mellitus with other specified complication, Reason for Exam B12 deficiency Reason for Exam Restless leg syndrome Performed By: #### L IPASE, BMP, CBC, HEPATIC #### [facility] [address] [place] [id number] [facility] Vit. B12/Folate Profileon Folate 9.0 ng/mL Normal >5.9 [facility] Comment on above: Order Comment: Reaso n for Exam Type 2 diabetes mellitus with other specified complication, Reason for Exam B12 deficiency Reason for Exam Restless leg syndrome Result Comment: Valarie te reference range: >5.9 ng/ml The WHO technical consultation on folate and vitamin b12 deficiencies has determined that folate concentrations less than 4 ng/ml are considered deficient. Performed By: #### L IPASE, BMP, CBC, HEPATIC #### [facility] [address] [place] [address] Vitamin B12 ser/plasOrdered By: Brigida Corea on 08-12-2023 Cobalamin (Vitamin B12) [Mass/Vol] 1112 pg/mL High 180-914 [facility] Comment on above: Order Comment: Reaso n for Exam Type 2 diabetes mellitus with other specified complication, Reason for Exam B12 deficiency Reason for Exam Restless leg syndrome Performed By: #### L IPASE, BMP, CBC, HEPATIC #### [facility] [address] [place], [place] [id number] [facility] Vitamin D 25 Hydroxy Totalon 08-12-2023 Vitamin D 25 Hydroxy Total 13.2 ng/mL Low 30-100 [facility] Comment on above: Order Comment: Reaso n for Exam Type 2 diabetes mellitus with other specified complication, Reason for Exam B12 deficiency Reason for Exam Restless leg syndrome Result Comment: JOSETTE MIN D STATUS 25(OH)VITAMIN D RANGE (ng/mL) Deficient <20 Insufficient 20 to <30 Sufficient 30 to 100 Reference: Carleen MF,Janet NC, Elissa ALBA, et al. Evaluation,treatment, and prevention of vitamin D deficiency; an Endocrine Society clinical practice guideline. JCEM. 2010; 96(7):1911-30. PERFORMED BY: [place] [address] PATHOLOGIST ALUMINUM CONTAINER TESTER MATEO ROJAS M.D. Performed By: #### L IPASE, BMP, CBC, HEPATIC #### [facility] [address] [place] [address] Vitamin D+Metabolites [Mass/ volume] in Serum or PlasmaOrdered By: Brigida Corea on 08-12-2023 Vitamin D+Metabolites [Mass/Vol] 13.2 ng/mL 30-100 [facility] Comment on above: VITAMIN D STATUS 25( OH)VITAMIN D RANGE (ng/mL) Deficient <20 Insufficient 20 to <30Sufficient 30 to 100Reference: Carleen MF,Janet FLORES, Elissa ALBA, et al. Evaluation,treatment, and prevention of vitamin D deficiency; an Endocrine Society clinical practice guideline. JCEM. 2010; 96(7):1911-30. Alanine aminotransferase [En zymatic activity/volume] in Serum or PlasmaOrdered By: Issa Stovall on 08-08-2023 ALT [Catalytic activity/Vol] 20 U/L Normal 7-52 [facility] Comment on above: Performed By: #### L IPASE, BMP, CBC, HEPATIC #### [facility] [address] [place] [address] Albumin [Mass/volume] in Ser um or Plasma by Bromocresol green (BCG) dye binding methoOrdered By: Issa Stovall on 08-08-2023 Albumin BCG dye [Mass/Vol] 4.0 g/dL 3.5-5.7 [facility] Alkaline phosphatase [Enzyma tic activity/volume] in Serum or PlasmaOrdered By: Issa Stovall on 08-08-2023 ALP [Catalytic activity/Vol] 92 U/L Normal 34-104 [facility] Comment on above: Performed By: #### L IPASE, BMP, CBC, HEPATIC #### [facility] [address] [place] [address] Aspartate aminotransferase [ Enzymatic activity/volume] in Serum or PlasmaOrdered By: Issa Stovall on 08-08-2023 AST [Catalytic activity/Vol] 17 U/L Normal 13-39 [facility] Comment on above: Performed By: #### L IPASE, BMP, CBC, HEPATIC #### [facility] [address] [place] [address] [place] Automated basophil %Ordered By: Issa Stovall on 08-08-2023 Basophils/100 WBC (Bld) 0.4 % Normal . [facility] Comment on above: Performed By: #### L IPASE, BMP, CBC, HEPATIC #### [address] Automated basophil countOrde red By: Issa Stovall on 08-08-2023 Basophils (Bld) [#/Vol] 0.1 10*3/uL Normal 0.0-0.2 [facility] Comment on above: Result Comment: PERF ORMED BY: [place] [address] PATHOLOGIST ALUMINUM CONTAINER TESTER MATEO ROJAS M.D. Performed By: #### L IPASE, BMP, CBC, HEPATIC #### [address] Automated blood monocyte cou ntOrdered By: Issa Stovall on 08-08-2023 Monocytes (Bld) [#/Vol] 0.9 10*3/uL High 0.0-0.8 [facility] Comment on above: Performed By: #### L IPASE, BMP, CBC, HEPATIC #### [address] Automated eosinophil %Ordere d By: Issa Stovall on 08-08-2023 Eosinophils/100 WBC (Bld) 2.0 % Normal . [facility] Comment on above: Performed By: #### L IPASE, BMP, CBC, HEPATIC #### [address] Automated eosinophil countOr dered By: Issa Stovall on 08-08-2023 Eosinophils (Bld) [#/Vol] 0.2 10*3/uL Normal 0.0-0.45 [facility] Comment on above: Performed By: #### L IPASE, BMP, CBC, HEPATIC #### [address] Automated monocyte %Ordered By: Issa Stovall on 08-08-2023 Monocytes/100 WBC (Bld) 7.7 % Normal . [facility] Comment on above: Performed By: #### L IPASE, BMP, CBC, HEPATIC #### [facility] [address] [place] [address] Automated neutrophil %Ordere d By: Issa Stovall on 08-08-2023 Neutrophils/100 WBC (Bld) 70.3 % Normal . [facility] Comment on above: Performed By: #### L IPASE, BMP, CBC, HEPATIC #### [facility] [address] Basic Metabolic Panelon Creatinine Clr Calc Pharmacy 139.90 Normal [facility] Comment on above: Performed By: #### L IPASE, BMP, CBC, HEPATIC #### [facility] [address] [place] [address] GFR/1.73 sq M.predicted MDRD (S/P/Bld) [Vol rate/Area] mL/min/{1.73_m2} Normal [facility] Comment on above: Performed By: #### L IPASE, BMP, CBC, HEPATIC #### [facility] [address] [place] [address] Bilirubin.direct [Mass/volum e] in Serum or PlasmaOrdered By: Issa Stovall on 08-08-2023 Bilirubin.direct [Mass/Vol] 0.10 mg/dL 0.03-0.18 [facility] Bilirubin.total [Mass/volume ] in Serum or PlasmaOrdered By: Issa Stovall on 08-08-2023 Bilirubin [Mass/Vol] 0.6 mg/dL Normal 0.3-1.0 [facility] Comment on above: Performed By: #### L IPASE, BMP, CBC, HEPATIC #### [facility] [address] [place] [address] CT abdomen pelvis wo conon 0 08-08-2023 CT abdomen pelvis wo [facility] [address] [place] [address] CT Scan Report Signed Patient: Lisa Fernando MR#: [id number] : 1975 Acct:[id number] Age/Sex: 48 / F ADM Date: 08/07/23 Loc: ER Room: Type: [facility] ER Attending Dr: Copies to: Chris Sol DO Ordering Provider: Chris Sol DO Date of Service: 08/08/23 CT/CT abdomen pelvis wo con: flank pain CT Abdomen and Pelvis withoutcontrast TECHNIQUE: Axial imaging with 2-D reconstruction. . The CT exam was performed using one or more the following dose reduction techniques: Automated exposure control, adjustment of the MA and/or Kv according to patient size, or use of the iterative reconstruction technique. COMPARISON: 10/20/2022 History: Left-sided flank pain. History of kidney stones. Hematuria. LIMITATIONS: None LOWER THORAX Unremarkable LIVER: Unremarkable GALLBLADDER: Cholecystectomy clips identified. BILE DUCTS: No dilatation SPLEEN: Unremarkable PANCREAS: Unremarkable ADRENAL GLANDS: Unremarkable KIDNEYS:2 nonobstructing left lower pole renal calculi. No obstructive uropathy or ureteral calculus. AORTA: No abdominal aortic aneurysm identified. RETROPERITONEUM: No significant retroperitoneal abnormalities identified. MESENTERY:Unremarkable SMALL BOWEL: The small bowel loops are nondistended. APPENDIX: The appendix is normal. COLON: Moderate stool. URINARY BLADDER: Urinary bladder is unremarkable. REPRODUCTIVE SYSTEM: The uterus is absent. PNEUMOPERITONEUM: None PERITONEAL FLUID:None BONY STRUCTURES: Unremarkable ABDOMINAL WALL: Stable left inguinal varix. This is unchanged compared to prior examination 01/29/2020. CT/CT abdomen pelvis wo con IMPRESSION: Left nephrolithiasis. No obstructive uropathy. Moderate stool. Consider constipation. Impression dictated by: Travis Kilpatrick M.D.08/08/2023 9:30 AM Dictation Location: [place] [address] Transcribed By: [facility] 08/08/23929 Dictated By: Travis Kilpatrick DO 08/08/23925 Signed By: 08/08/23929 Normal [facility] Calcium [Mass/volume] in Ser um or PlasmaOrdered By: Issa Stovall on 08-08-2023 Calcium [Mass/Vol] 9.0 mg/dL Normal 8.6-10.3 [facility] Comment on above: Performed By: #### L IPASE, BMP, CBC, HEPATIC #### [address] Carbon dioxide, total [Moles /volume] in Serum or PlasmaOrdered By: Issa Stovall on 08-08-2023 CO2 [Moles/Vol] 26.8 mmol/L Normal 21.0-31.0 [facility] Comment on above: Performed By: #### L IPASE, BMP, CBC, HEPATIC #### [facility] [address] Chloride [Moles/volume] in S claudia or PlasmaOrdered By: Issa Stovall on 08-08-2023 Chloride [Moles/Vol] 100 mmol/L Normal 98-107 [facility] Comment on above: Performed By: #### L IPASE, BMP, CBC, HEPATIC #### [address] Complete Blood Count Auto Di ffon 08-08-2023 Mean Corpuscular HGB Conc 35.0 g/dL Normal 32.0-35.0 [facility] Comment on above: Performed By: #### L IPASE, BMP, CBC, HEPATIC #### [address] Monocytes/100 WBC (Bld) 24.09 % High 0.00-20.00 [facility] Comment on above: Result Comment: For adults in ED, MDW > 20.0 may be associated with a higher risk of sepsis during the first 12 hrs of hospital admission Performed By: #### L IPASE, BMP, CBC, HEPATIC #### [address] NRBC% 0.0 /100{WBC} Normal 0-0.5 [facility] Comment on above: Performed By: #### L IPASE, BMP, CBC, HEPATIC #### [address] Creatinine [Mass/volume] in Serum or PlasmaOrdered By: Issa Stovall on 08-08-2023 Creatinine [Mass/Vol] 0.56 mg/dL Low 0.60-1.20 [facility] Comment on above: Performed By: #### L IPASE, BMP, CBC, HEPATIC #### [facility] [address] Erythrocyte distribution wid th [Ratio] by Automated countOrdered By: Issa Stovall on 08-08-2023 Erythrocyte distribution width (RBC) [Ratio] 12.6 % Normal 11.9-15.3 [facility] Comment on above: Performed By: #### L IPASE, BMP, CBC, HEPATIC #### [facility] [address] Erythrocytes [#/volume] in B lood by Automated countOrdered By: Issa Stovall on 08-08-2023 RBC (Bld) [#/Vol] 4.20 10*6/uL Normal 3.60-5.00 [facility] Comment on above: Performed By: #### L IPASE, BMP, CBC, HEPATIC #### [facility] [address] Glucose [Mass/volume] in Ser um or PlasmaOrdered By: Issa Stovall on 08-08-2023 Glucose [Mass/Vol] 109 mg/dL High 70-100 [facility] Comment on above: ADA recommended refe rence rangeRandom Glucose Reference Range is dependent on time and content of last meal. Glucose of more than 200 mg/dL in a nonstressed, ambulatory subject supports the diagnosis of Diabetes Mellitus. Result Comment: Cerulean om Glucose Reference Range is dependent on time and content of last meal. Glucose of more than 200 mg/dL in a nonstressed, ambulatory subject supports the diagnosis of Diabetes Mellitus. ADA recommended reference range Performed By: #### L IPASE, BMP, CBC, HEPATIC #### [facility] [address] Hematocrit [Volume Fraction] of Blood by Automated countOrdered By: Issa Stovall on 08-08-2023 Hematocrit (Bld) [Volume fraction] 34.7 % Normal 34.0-46.4 [facility] Comment on above: Performed By: #### L IPASE, BMP, CBC, HEPATIC #### [facility] [address] [place] [address] [place] Hemoglobin [Mass/volume] in BloodOrdered By: Issa Stovall on 08-08-2023 Hemoglobin (Bld) [Mass/Vol] 12.1 g/dL Normal 11.8-15.4 [facility] Comment on above: Performed By: #### L IPASE, BMP, CBC, HEPATIC #### [facility] [address] Hepatic Panelon 08-08-2023 Albumin [Mass/Vol] 4.0 g/dL Normal 3.5-5.7 [facility] Comment on above: Performed By: #### L IPASE, BMP, CBC, HEPATIC #### [facility] [address] Bilirubin,Indirect 0.5 mg/dL Normal [facility] Comment on above: Performed By: #### L IPASE, BMP, CBC, HEPATIC #### [address] Bilirubin.indirect [Mass/Vol] 0.10 mg/dL Normal 0.03-0.18 [facility] Comment on above: Performed By: #### L IPASE, BMP, CBC, HEPATIC #### [address] Leukocytes [#/volume] correc cristian for nucleated erythrocytes in Blood by Automated counOrdered By: Issa Stovall on 08-08-2023 WBC corrected for nucl RBC Auto (Bld) [#/Vol] 12.1 10*3/uL 3.8-11.6 [facility] Leukocytes [#/volume] in Blo od by Automated countOrdered By: Issa Stovall on 08-08-2023 WBC (Bld) [#/Vol] 12.1 10*3/uL High 3.8-11.6 [facility] Comment on above: Performed By: #### L IPASE, BMP, CBC, HEPATIC #### [facility] [address] [place] [address] Lipase [Enzymatic activity/v olume] in Serum or PlasmaOrdered By: Issa Stovall on 08-08-2023 Lipase [Catalytic activity/Vol] 20.0 U/L Normal 11.0-82.0 [facility] Comment on above: Result Comment: PERF ORMED BY: [place] [address] PATHOLOGIST ALUMINUM CONTAINER TESTER MATEO ROJAS M.D. Performed By: #### L IPASE, BMP, CBC, HEPATIC #### [facility] [address] [place] [address] Lymphocytes [#/volume] in Bl ood by Automated countOrdered By: Issa Stovall on 08-08-2023 Lymphocytes (Bld) [#/Vol] 2.4 10*3/uL Normal 1.00-4.8 [facility] Comment on above: Performed By: #### L IPASE, BMP, CBC, HEPATIC #### [address] Lymphocytes/100 leukocytes i n Blood by Automated countOrdered By: Issa Stovall on 08-08-2023 Lymphocytes/100 WBC (Bld) 19.6 % Normal . [facility] Comment on above: Performed By: #### L IPASE, BMP, CBC, HEPATIC #### [facility] [address] [place] [address] MCH [Entitic mass] by Automa cristian countOrdered By: Issa Stovall on 08-08-2023 MCH (RBC) [Entitic mass] 28.9 pg Normal 24.7-34.3 [facility] Comment on above: Performed By: #### L IPASE, BMP, CBC, HEPATIC #### [facility] [address] [place] [address] MCHC Auto (RBC) [Mass/Vol]Or dered By: Issa Stovall on 08-08-2023 MCHC (RBC) [Mass/Vol] 35.0 g/dL 32.0-35.0 [facility] MCV [Entitic volume] by Auto mated countOrdered By: Issa Stovall on 08-08-2023 MCV (RBC) [Entitic vol] 82.6 fL Normal 80-100 [facility] Comment on above: Performed By: #### L IPASE, BMP, CBC, HEPATIC #### [facility] [address] Monocyte distribution width [Entitic volume] in Blood by AutomatedOrdered By: Issa Stovall on 08-08-2023 Monocyte distribution width Auto (Bld) [Entitic vol] 24.09 % 0.00-20.00 [facility] Comment on above: For adults in ED, MD W > 20.0 may be associated with a higher risk of sepsis during the first 12 hrs of hospital admission Neutrophils [#/volume] in Bl ood by Automated countOrdered By: Issa Stovall on 08-08-2023 Neutrophils (Bld) [#/Vol] 8.5 10*3/uL High 1.8-7.7 [facility] Comment on above: Performed By: #### L IPASE, BMP, CBC, HEPATIC #### [facility] [address] [place] [address] No Panel InformationOrdered By: Issa Stovall on 08-08-2023 Estimated GFR (CKD-EPI) > 60.0 mL/Min [facility] Creatinine Clearance (Chem 139.90 [facility] Nucleated erythrocytes [Pres ence] in Blood by Automated countOrdered By: Issa Stovall on 08-08-2023 Nucleated RBC Auto Ql (Bld) 0.0 /100{WBC} 0-0.5 [facility] Platelet mean volume [Entiti c volume] in Blood by Automated countOrdered By: Issa Stovall on 08-08-2023 Platelet mean volume (Bld) [Entitic vol] 7.6 fL Normal 6.3-10.7 [facility] Comment on above: Performed By: #### L IPASE, BMP, CBC, HEPATIC #### [facility] [address] [place] [address] Platelets [#/volume] in Bloo d by Automated countOrdered By: Issa Stovall on 08-08-2023 Platelets (Bld) [#/Vol] 267 10*3/uL Normal 150-450 [facility] Comment on above: Performed By: #### L IPASE, BMP, CBC, HEPATIC #### [facility] [address] [place] [address] Potassium [Moles/volume] in Serum or PlasmaOrdered By: Issa Stovall on 08-08-2023 Potassium [Moles/Vol] 3.3 mmol/L Low 3.5-5.1 [facility] Comment on above: Performed By: #### L IPASE, BMP, CBC, HEPATIC #### [facility] [address] [place] [address] Protein [Mass/volume] in Ser um or PlasmaOrdered By: Issa Stovall on 08-08-2023 Protein [Mass/Vol] 7.0 g/dL Normal 6.4-8.9 [facility] Comment on above: Performed By: #### L IPASE, BMP, CBC, HEPATIC #### [address] Serum globulin measurement b y calculation (mass/volume)Ordered By: Issa Stovall on 08-08-2023 Globulin (S) [Mass/Vol] 3.0 g/dL [facility] Comment on above: Performed By: #### L IPASE, BMP, CBC, HEPATIC #### [facility] [address] [place] [address] Serum or plasma albumin/glob ulin mass ratioOrdered By: Issa Stovall on 08-08-2023 Albumin/Globulin [Mass ratio] 1.3 {ratio} [facility] Comment on above: Performed By: #### L IPASE, BMP, CBC, HEPATIC #### [address] Serum or plasma anion gap de terminationOrdered By: Issa Stovall on 08-08-2023 Anion gap [Moles/Vol] 11.5 mmol/L Normal 6.0-15.0 [facility] Comment on above: Performed By: #### L IPASE, BMP, CBC, HEPATIC #### [address] Serum or plasma non-glucuron idated bilirubin measurement (mass/volume)Ordered By: Issa Stovall on 08-08-2023 Bilirubin.indirect [Mass/Vol] 0.5 mg/dL [facility] Sodium [Moles/volume] in Ser um or PlasmaOrdered By: Issa Stovall on 08-08-2023 Sodium [Moles/Vol] 135 mmol/L Low 136-145 [facility] Comment on above: Performed By: #### L IPASE, BMP, CBC, HEPATIC #### [facility] [address] Urea nitrogen [Mass/volume] in Serum or PlasmaOrdered By: Issa Stovall on 08-08-2023 Urea nitrogen [Mass/Vol] 15 mg/dL Normal 7-25 [facility] Comment on above: Performed By: #### L IPASE, BMP, CBC, HEPATIC #### [address] Automated erythrocytes count in urine sediment (number/area)Ordered By: PROVIDER TEMP on 08-07-2023 RBC Auto (Urine sed) [#/Area] 3-4 [HPF] 0-4 [facility] Automated leukocytes count i n urine sediment (number/area)Ordered By: PROVIDER TEMP on 08-07-2023 WBC Auto (Urine sed) [#/Area] Innumerable [HPF] 0-4 [facility] Automated urine color determ inationOrdered By: PROVIDER TEMP on 08-07-2023 Color (U) Yellow Normal Yellow [facility] Comment on above: Order Comment: Name Collection Type:: Clean-Voided Midstream Performed By: #### L IPASE, BMP, CBC, HEPATIC #### [facility] [address] [place] [address] Bilirubin Test strip Ql (U)O rdered By: PROVIDER TEMP on 08-07-2023 Bilirubin Ql (U) Negative Negative [facility] Dipstick and Microscopicon 0 08-07-2023 Appearance (U) Turbid Critically abnormal Clear [facility] Comment on above: Order Comment: Name Collection Type:: Clean-Voided Midstream Performed By: #### L IPASE, BMP, CBC, HEPATIC #### [facility] [address] [place] [address] [place] Bacteria,Urine Rare High None Seen [facility] Comment on above: Order Comment: Name Collection Type:: Clean-Voided Midstream Performed By: #### L IPASE, BMP, CBC, HEPATIC #### [facility] [address] [place] [address] [place] Bilirubin,Urine Negative Normal Negative [facility] Comment on above: Order Comment: Name Collection Type:: Clean-Voided Midstream Performed By: #### L IPASE, BMP, CBC, HEPATIC #### [facility] [address] [place] [address] [place] Glucose Ql (U) Normal Normal Normal [facility] Comment on above: Order Comment: Name Collection Type:: Clean-Voided Midstream Performed By: #### L IPASE, BMP, CBC, HEPATIC #### [facility] [address] [place] [address] [place] Hyaline Casts,Urine 0-8 Normal 0-8 [facility] Comment on above: Order Comment: Name Collection Type:: Clean-Voided Midstream Performed By: #### L IPASE, BMP, CBC, HEPATIC #### [facility] [address] [place] [address] [place] Ketones Ql (U) Negative Normal Negative [facility] Comment on above: Order Comment: Name Collection Type:: Clean-Voided Midstream Performed By: #### L IPASE, BMP, CBC, HEPATIC #### [facility] [address] [place] [address] [place] Leukocyte esterase Test strip Ql (U) 3+ High Negative [facility] Comment on above: Order Comment: Name Collection Type:: Clean-Voided Midstream Performed By: #### L IPASE, BMP, CBC, HEPATIC #### [facility] [address] [place] [address] [place] Nitrite,Urine Negative Normal Negative [facility] Comment on above: Order Comment: Name Collection Type:: Clean-Voided Midstream Performed By: #### L IPASE, BMP, CBC, HEPATIC #### [facility] [address] [place] [id number] [place] Occult Blood,Urine 2+ High Negative [facility] Comment on above: Order Comment: Name Collection Type:: Clean-Voided Midstream Result Comment: PERF ORMED BY: [place] [address] PATHOLOGIST ALUMINUM CONTAINER TESTER MATEO ROJAS M.D. Performed By: #### L IPASE, BMP, CBC, HEPATIC #### [address] RBC,Urine 3-4 Normal 0-4 [facility] Comment on above: Order Comment: Name Collection Type:: Clean-Voided Midstream Performed By: #### L IPASE, BMP, CBC, HEPATIC #### [address] Specificy [place],Urine 1.020 Normal 1.001-1.030 [facility] Comment on above: Order Comment: Name Collection Type:: Clean-Voided Midstream Performed By: #### L IPASE, BMP, CBC, HEPATIC #### [place] [address] [place] Squamous Epithelial Cell,Urine 3-4 High 0-2 [facility] Comment on above: Order Comment: Name Collection Type:: Clean-Voided Midstream Performed By: #### L IPASE, BMP, CBC, HEPATIC #### [address] Urobilinogen,Urine Normal Normal Normal [facility] Comment on above: Order Comment: Name Collection Type:: Clean-Voided Midstream Performed By: #### L IPASE, BMP, CBC, HEPATIC #### [place] [address] [place] WBC,Urine Innumerable High 0-4 [facility] Comment on above: Order Comment: Name Collection Type:: Clean-Voided Midstream Performed By: #### L IPASE, BMP, CBC, HEPATIC #### [address] Yeast,Urine Rare Critically abnormal None Seen [facility] Comment on above: Order Comment: Name Collection Type:: Clean-Voided Midstream Result Comment: PERF ORMED BY: [place] [address] PATHOLOGIST ALUMINUM CONTAINER TESTER MATEO ROJAS M.D. Performed By: #### L IPASE, BMP, CBC, HEPATIC #### [facility] [address] [place] [address] [facility] Ketones Auto test strip (U) [Mass/Vol]Ordered By: PROVIDER TEMP on 08-07-2023 Ketones (U) [Mass/Vol] Negative Negative [facility] Laboratory - UrinalysisOrder ed By: PROVIDER TEMP on 08-07-2023 Hyaline casts LM Ql (Urine sed) 0-8 [LPF] 0-8 [facility] Nitrite Test strip Ql (U)Ord ered By: PROVIDER TEMP on 08-07-2023 Nitrite Ql (U) Negative Negative [facility] Specific gravity Auto test s trip (U) [Rel density]Ordered By: PROVIDER TEMP on 08-07-2023 Specific gravity (U) [Rel density] 1.020 1.001-1.030 [facility] Squamous epithelial cells de tection in urine sediment by light microscopyOrdered By: PROVIDER TEMP on 08-07-2023 Epithelial cells.squamous LM Ql (Urine sed) 3-4 [HPF] 0-2 [facility] Urine Cultureon 08-07-2023 Bacteria identified Cx Nom (U) 30,000 colonies/ml mixed bacterial skin contaminants 2 Days PERFORMED BY: [place] [address] PATHOLOGIST ALUMINUM CONTAINER TESTER MATEO ROJAS M.D. Normal [facility] Comment on above: Performed By: #### L IPASE, BMP, CBC, HEPATIC #### [facility] [address] [place] [address] [facility] Urine bacteria detection by automated methodOrdered By: PROVIDER TEMP on 08-07-2023 Bacteria Auto Ql (U) Rare None Seen [facility] Urine clarity by refractomet ry automatedOrdered By: PROVIDER TEMP on 08-07-2023 Clarity Refractometry automated (U) Turbid Clear [facility] Urine culture routineOrdered By: PROVIDER TEMP on 08-07-2023 Bacteria identified Cx Nom (U) 2 Days [facility] Bacteria identified Cx Nom (U) 2 Days [facility] Urine glucose measurement by automated test strip (mass/volume)Ordered By: PROVIDER TEMP on 08-07-2023 Glucose Auto test strip (U) [Mass/Vol] Normal mg/dL Normal [facility] Urine hemoglobin detection b y automated test stripOrdered By: PROVIDER TEMP on 08-07-2023 Hemoglobin Auto test strip Ql (U) 2+ Negative [facility] Urine leukocyte esterase det ection by automated test stripOrdered By: PROVIDER TEMP on 08-07-2023 Leukocyte esterase Auto test strip Ql (U) 3+ Negative [facility] Urine pH measurement by auto mated test stripOrdered By: PROVIDER TEMP on 08-07-2023 pH (U) 5.5 [pH] Normal 5.0-9.0 [facility] Comment on above: Order Comment: Name Collection Type:: Clean-Voided Midstream Performed By: #### L IPASE, BMP, CBC, HEPATIC #### [facility] [address] [place] [address] [place] Urine protein measurement by automated test strip (mass/volume)Ordered By: PROVIDER TEMP on 08-07-2023 Protein (U) [Mass/Vol] 100 mg/dL High Negative [facility] Comment on above: Order Comment: Name Collection Type:: Clean-Voided Midstream Performed By: #### L IPASE, BMP, CBC, HEPATIC #### [facility] [address] [place] [id number] [place] Urobilinogen Auto test strip (U) [Mass/Vol]Ordered By: PROVIDER TEMP on 08-07-2023 Urobilinogen (U) [Mass/Vol] Normal mg/dL Normal [facility] Yeast detection in urine sed iment by light microscopyOrdered By: PROVIDER TEMP on 08-07-2023 Yeast LM Ql (Urine sed) Rare [HPF] None Seen [facility] Follow-Upon 07-23-2023 Follow-Up [id number] Tim Fernando 1975 F Date Provider Department Center 07/23/2023 ISAI SALINAS MP ORTHO MPORTHO Family History Problem Relation Age of Onset Cancer Mother Diabetes Father Cancer Maternal Grandmother Cancer Mother's Brother Cancer Mother's Sister Family Status - Relation Status Age at Mother Father Maternal Grandmother Mother's Brother Mother's Sister Level of Service:35019 [place] POSTOP FOLLOW UP VISIT RELATED TO ORIGINAL PX (GC) Reason for Visit and Comments: Follow-up [691641] Pain [136] [facility] 29on 07-04-2023 29 Addended by: DARWIN BROOKS on: 07/04/2023 02:23 PM Modules accepted: Orders [facility] 36on 07-04-2023 36 Medication was never received. [facility] 36 Nicola the resident se nt this yesterday [facility] Orders Onlyon 07-04-2023 Orders Only [id number] Tim Fernando 1975 F Provider Department Center 07/04/[id number]-FAVMVNZCASSANDRA LOW MP ORTHO MPORTHO Family History Problem Relation Age of Onset Cancer Mother Diabetes Father Cancer Maternal Grandmother Cancer Mother's Brother Cancer Mother's Sister Family Status - Relation Status Age at Mother Father Maternal Grandmother Mother's Brother Mother's Sister [facility] Refillon 07-02-2023 Refill [id number] AndreaTimranda Mckeon 1975 Provider Department Center 07/02/2023 Grant-JAYNA FARLEY MP ORTHO MPORTHO Family History Problem Relation Age of Onset Cancer Mother Diabetes Father Cancer Maternal Grandmother Cancer Mother's Brother Cancer Mother's Sister Family Status - Relation Status Age at Mother Father Maternal Grandmother Mother's Brother Mother's Sister Reason for Visit and Comments: Med Refill [[id number]] [facility] Office Visiton 07-01-2023 Follow-up visit [id number] Tim Fernando 1975 Provider Department Center 07/01/2023 ISAI SALINAS MP ORTHO MPORTHO Family History Problem Relation Age of Onset Cancer Mother Diabetes Father Cancer Maternal Grandmother Cancer Mother's Brother Cancer Mother's Sister Family Status - Relation Status Age at Mother Father Maternal Grandmother Mother's Brother Mother's Sister Level of Service:16226 [place] POSTOP FOLLOW UP VISIT RELATED TO ORIGINAL PX Reason for Visit and Comments: Post-op [483] [facility] Patient Messageon 07-01-2023 Patient Message [id number] Tim Fernando 1975 F Date Provider Department Center 07/01/2023 [id number] SUN MP ORTHO MPORTHO Family History Problem Relation Age of Onset Cancer Mother Diabetes Father Cancer Maternal Grandmother Cancer Mother's Brother Cancer Mother's Sister Family Status - Relation Status Age at Mother Father Maternal Grandmother Mother's Brother Mother's Sister [facility] 36on 06-20-2023 36 I spoke to the patie nt to see how she is doing after her recent surgery with Dr Sun. Ms Fernando stated she is doing well and that her pain is manageable with medications. She is maintaining her non-weight bearing status. She has a post op appointment on July 01 at 915. She had no other questions or concerns. [facility] HISTOLOGY - TISSUE EXAMon LAB AP ASR DISCLAIMER The interpretation of this case included the use of immunohistochemistry or special stains. These tests have not been cleared or approved by the U.S. Food and Drug Administration. The FDA has determined that such clearance or approval is not necessary. These tests are used for clinical purposes and should not be regarded as investigational or for research. This laboratory is certified to perform high complexity testing under the Clinical Laboratory Improvement Amendments of 1998. [facility] Comment on above: Order Comment: Pre-o p diagnosis:Carpal tunnel syndrome of left wrist [G56.02] Performed By: #### L [id number] ####[facility] ([facility])[address] [place] [address] LAB AP CASE REPORT [facility] Comment on above: Order Comment: Pre-o p diagnosis:Carpal tunnel syndrome of left wrist [G56.02] Result Comment: Surg ical Pathology Case: [id number] Authorizing Provider: Isai Sun MD Collected: 06/19/2023 1127 Ordering Location: [facility] Received: 06/19/2023 1242 [facility] Pathologist: Fiordaliza Tatum MD Specimen: Wrist, SYNOVIUM CARPAL TUNNEL Performed By: #### L [id number] ####[facility] ([facility])[address] [facility] [place] [address] LAB AP CLINICAL INFORMATION [facility] Comment on above: Order Comment: Pre-o p diagnosis:Carpal tunnel syndrome of left wrist [G56.02] Result Comment: Post -Op Diagnoses G56.02 - Carpal tunnel syndrome of left wrist [ICD-10-CM] Performed By: #### L [id number] ####[facility] ([facility])[address] [facility] [place] [address] LAB AP GROSS DESCRIPTION A. Wrist. [facility] Comment on above: Order Comment: Pre-o p diagnosis:Carpal tunnel syndrome of left wrist [G56.02] Result Comment: Rece ived in formalin labeled Lisa Linda Fernando, SYNOVIUM CARPAL TUNNEL are multiple pale vaughn to faint pink-yellow ragged rubbery to soft tissue fragments 2.6 x 2.3 x 0.5 cm in aggregate. The cut surfaces are glossy and rubbery to dull and soft. Hide Handler sections are submitted in a single cassette. Marium Rosales, Pathologists' Ballroom Dancer Performed By: #### L [id number] ####[facility] [facility] ([facility])[address] [facility] [place] [address] LAB AP MICROSCOPIC DESCRIPTION Microscopic examination performed. [facility] Comment on above: Order Comment: Pre-o p diagnosis:Carpal tunnel syndrome of left wrist [G56.02] Performed By: #### L [id number] ####[facility] ([facility])[address] [facility] [place] [address] LAB AP REPORT FINAL DIAGNOSIS NARRATIVE [facility] Comment on above: Order Comment: Pre-o p diagnosis:Carpal tunnel syndrome of left wrist [G56.02] Result Comment: A. S oft tissue, wrist synovium, biopsy: - Synovium with arterial fibrous intimal thickening, otherwise unremarkable. - Congo red stain is negative. Performed By: #### L [id number] ####[facility] ([facility])[address] [place] [address] HPon 06-19-2023 H&P reviewed. The patient was examined and there are no changes to the H&P. Normal [facility] OPNOTEon 06-19-2023 OPNOTE Operative Note Patient: Lisa Fernando Date of Surgery: 06/19/2023 : 1975 Pre-operative Diagnosis: 1. Recurrent carpal tunnel syndrome left hand 2. Persisting pain after Deleon arthroplasty left thumb Post-operative Diagnosis: same Operation: 1. Revision carpal tunnel release left hand 2. Type of procedure left thumb Surgeon: Isai Sun MD Ballroom Dancer: Mimi Pierre MD Staff: Teacher Education Instructor: Sheeba Thibodeaux RN Scrub Person: Ashley Montelongo CST Anesthesia Type: Regional Indications: The patient is an 47 y.o. female with 2 problems being taken care of today. She underwent a Deleon soft tissue arthroplasty, and has just never done well following. She has had persistent pain and there is crepitus. There is between the base of the thumb metacarpal and even with trapezoid over the base of the index. I went back and try to decrease the osteophytes in that area and put some soft tissue in between those bones. Unfortunately she still has pain in that region. The last thing I could think to try is doing a tight rope type procedure to pull the thumb back out to length. She also has increasing numbness in the distribution of her hand. She underwent a carpal tunnel release a number of years ago. Her clinical exam consistent with carpal tunnel syndrome. We are planning to do a revision plan today as well. She is brought to the operating room today for that purpose. The risks and benefits of the procedure were explained prior to surgery, and with good understanding it is agreed to proceed. Procedure: the patient is brought to the operating room and placed on the table in a supine position. An axillary block had been administered per the anesthesia service in the holding area. A tourniquet is placed around the proximal left arm. She is given preoperative antibiotics and the left upper extremity is prepped and draped out in a sterile fashion To begin the procedure, after standard timeout, the arm is exsanguinated with an Esmarch bandage and the tourniquet is inflated to 250 mmHg. Using a 15 blade, the previous surgical scar on the palm was opened up and extended proximally across the wrist crease in a zigzag fashion. Blunt dissection was carried out through the subcutaneous tissue. Wound elevated triangular flap proximally. The palmaris longus tendon was identified. Adjacent to that and opened up the antebrachial fascia. The median nerve was identified directly below this. We then carefully worked from proximal to distal getting through the wrist crease and through the transverse carpal ligament. Once we have the carpal tunnel completely released, a self-retaining retractor was placed. The median nerve isbluntly dissected out. There is no gross allergy in the nerve itself. There is a very thick tenosynovium around the flexor tendons. That tissue was debrided off the region of the carpal tunnel. We did send for pathology for evaluation for sarcoidosis. Once we have the tendons debrided, the wound was irrigated with normal saline solution and the skin is closed with 5 suture. We then turned our attention to the base of the thumb. We utilized the distal half of our previous incision and bluntly dissected down to bone. I used a Bovie to expose a small portion of the base of the thumb metacarpal. We used the mini tight rope kit. I took the long guidepin and drilled this across the base of the thumb metacarpal. Once I got to the far cortex we pulled traction on the thumb and I drilled across the base of the index metacarpal. C-arm was brought in at this time to see where the pin was in the make sure that the thumb was out to length. I was happy with where things looked. We advanced the pin to get the thin portion into the drill hole. We attached our mini tight rope and pulled the guidepin through the bone that the tight rope. I made about a centimeter and a half long incision over the ulnar base of the index metacarpal. We bluntly dissected down to bone and then retrieved the sutures along that plane. We placed the other Endobutton suture, I pulled the thumb back out to length and we tied the suture of the. C-arm is brought back in we are maintaining our length. I do not feel the crepitus anymore and the base of the thumb is much more stable. Both wounds are irrigated with normal saline solution and closed with 5-0 Novafil. A sterile dressing of Xeroform gauze, 4 x 4 fluffs, Webril, and a short arm thumb spica plaster splint is applied. The tourniquet is released and the drapes are removed. All sponge and needle counts are correct at time of closure. Her arm was placed into a sling because of joint block. She is brought to the recovery area in stable condition, having tolerated the procedure well. Estimate Blood Loss: Minimal Total IV Fluids: Per anesthesia record Specimens: ID Type Source Tests Collected by Time A : SYNOVIUM CARPAL TUNNEL Tissue Wrist HIS (more content not included)... Normal [facility] POCT GLUCOSE METER UNSOLICIT ED RESULTSon 06-19-2023 Glucose [Mass/Vol] 108 mg/dL High 70-105 [facility] Comment on above: Order Comment: Waive d Testing in the ED is performed under the ED CLIA certificate #[id number]. Result Comment: [email or web address] Performed By: #### L [id number] #### [facility] ([facility]) [address] [place] [address] Glucose [Mass/Vol] 111 mg/dL High 70-105 [facility] Comment on above: Order Comment: Waive d Testing in the ED is performed under the ED CLIA certificate #[id number]. Result Comment: ltol les Performed By: #### L [id number] #### [facility] ([facility]) [address] [place] [address] Follow-Upon 06-04-2023 Follow-Up [id number] Tim Fernando 1975 F Date Provider Department Center 06/04/2023 ISAI SALINAS MP ORTHO MPORTHO Family History Problem Relation Age of Onset Cancer Mother Diabetes Father Cancer Maternal Grandmother Cancer Mother's Brother Cancer Mother's Sister Family Status - Relation Status Age at Mother Father Maternal Grandmother Mother's Brother Mother's Sister Level of Service:71148 [place] OFFICE/OUTPATIENT ESTABLISHED LOW MDM 20-29 MIN Reason for Visit and Comments: Edema [[id number]] Numbness [75] Decreased Range Of Motion [852] Pain [136] Normal [facility] HPon 06-04-2023 Orthopedic Surgery Subjective Chief complaint: Chief Complaint Patient presents with Left Hand - Edema, Numbness, Decreased Range Of Motion, Pain Lisa Fernando is a 47 y.o. year old female presenting for evaluation of Left hand pain. She recently had EMGs which show mild to moderate carpal tunnel syndrome of the left hand. She states that she continues to wear her night splints and back that does help but she still wakes up with her hand being numb even with the splint. She is having worsening trouble with her hands doing normal daily activities. She still has pain at the basilar joint of her thumb. I was hoping that this would start resolving without further treatment but she states that it has not changed. Previous Treatments: Deleon arthroplasty left thumb with subsequent resection of scaphoid trapezoid joint Patient History Past Surgical History: Procedure Laterality Date BREAST LUMPECTOMY Left CARPAL TUNNEL RELEASE Bilateral SECTION, LOW TRANSVERSE CHOLECYSTECTOMY HAND ARTHROPLASTY Left 03/19/2022 burtons HAND ARTHROPLASTY Left KIDNEY STONE SURGERY KNEE ARTHROPLASTY KNEE SURGERY Left LITHOTRIPSY Past Medical History: Diagnosis Date Anxiety Arthritis Depression Diabetes mellitus (CMS/HCC) Muscle ache LEGS Objective General: Body mass index is 39.15 kg/m???. No acute distress, comfortable Respiratory: Unlabored breathing with normal rate, no cough Cardiovascular: Warm well perfused extremities Psych: Appropriate mood behavior Hand/Wrist Musculoskeletal Exam Inspection Left Left hand/wrist inspection is normal. Incision: well-healed Palpation Left Thumb tenderness to palpation: carpometacarpal joint Dorsal hand - 1st metacarpal tenderness to palpation: CMC Range of Motion Left Hand Left hand range of motion is normal. Neurovascular Left Left neurovascular exam is normal. Capillary refill: brisk Ulnar nerve sensory distribution: normal Median nerve sensory distribution: decreased Superficial radial nerve sensory distribution: normal Special Tests Left Phalen's: positive Tinel's - carpal tunnel: positive Tinel's - cubital tunnel: negative Special tests additional comments: there is still pain with a grind test, and that at the proximal end of the metacarpal but there is something catching when I pressed the metacarpal up against the base of the index metacarpal or the trapezoid. The pain is lessened when I do that and pulled traction on the thumb as opposed to immediate. Imaging: None today Assessment/Plan Lisa Fernando is a 47 y.o. year old female with Carpal tunnel syndrome of left wrist and persistent pain at the basilar joint of her left thumb PLAN: we talked about some options for treatment. The thumb is really problematic. The only thing I can think to do at this point would be a tight rope procedure and see if we can pull the thumb back out to length and stabilize it a little bit better. I think that with. Worsening symptoms of carpal tunnel syndrome it would be worth doing a revision carpal tunnel release as this was confirmed by EMG. We will set her up for a revision carpal tunnel release and tighten up on her left thumb. The surgical procedure along with the risks and benefits were discussed today in the clinic. Consent for the surgery was reviewed and signed. We will see them back in clinic following the procedure. [facility] Ambulatory Visit Summaryon 1 Ambulatory Visit Summary LISA FERNANDO :1975 Visit Date:05/22/2023 Ambulatory Visit Instructions Your Diagnosis Kidney stones Mixed incontinence urge and stress Tests Performed XR Abdomen 1 View -- Results Pending -- Please visit your patient portal for your results or contact your primary care physician. Your Care Team Attending Physician - No TORRES MD Primary Care Physician - Jorgito SANCHEZ DO This Is Your Medications List Contact prescribing physician if questions or concerns carbamazepine (carbamazepine 200 mg ER Tab) carbidopa-levodopa (Sinemet 25 mg-100 mg Tab) celecoxib (CeleBREX 200 mg Cap) cyanocobalamin (Vitamin B12 1000 mcg Tab) dulaglutide (Trulicity Pen 0.75 mg/0.5 mL subcutaneous solution) duloxetine (duloxetine 60 mg Cap-DR) furosemide (furosemide 40 mg Tab) glipiZIDE (glipiZIDE 5 mg ER Tab) ibuprofen ipratropium (ipratropium 0.02% Inh Valeria 2.5 mL) metformin (metformin 500 mg Tab) methocarbamol (methocarbamol 750 mg Tab) potassium chloride rimegepant (Nurtec ODT) ziprasidone (Geodon 20 mg Cap) Procedures Performed Cystourethroscopy with dilation of urethral stricture (06/12/2022), Carpal tunnel release, section, Dissection tonsillectomy, Excision of ganglion cyst, Laparoscopic cholecystectomy. Discharge Vitals Heart Rate (Peripheral) 82 Blood Pressure 130/71 Height 160 cm Height 63 in Weight 91 kg Weight 200.2 lb BMI 35.55 What to do next Scheduled Follow-Up Appointments Saturday 8:15 AM EDT With: No TORRES MD Where: [facility] Carmelo Sorto [facility] Patient Educationon 05-22-20 Patient Education Urology 24-Hour Urine Collection Why am I having this test? A 24-hour urine specimen is a lab test that requires you to collect all of your urine for an entire day. This is sometimes called a timed urine test. It can provide more information than a single urine sample. There are many reasons to have this test. Your health care provider may order the test to check for or monitor the following conditions: ? High blood pressure. ? Kidney disease. ? Kidney stones. ? Urinary tract infections. ? . ? Diabetes. How do I prepare for this test? ? You may be asked to follow a special diet during or before the collection period. Follow any instructions from your health care provider. If no special instructions are given, you may eat and drink normally. ? Take fwxu-cme-guuyqjr and prescription medicines only as told by your health care provider. ? Let your health care provider know about any medicines that you are taking, including hbgv-rsq-ggtlbrg medicines, vitamins, herbs, and supplements. ? Choose a collection day when you can be at home or when you have a place to store the urine. All urine must be collected during the testing period. How do I do a 24-hour urine collection? ? When you get up in the morning, urinate in the toilet and flush. Write down the time. This will be your start time on the day of collection and your end time on the next morning. ? From the start time on, all of your urine should be kept in the collection jug that you received from the lab. ? If the jug that is given to you already has liquid in it, that is okay. Do not throw out the liquid or rinse out the jug. ? Urinate into a specimen container, such as a urinal or abdi that sits over the toilet. Pour the urine from the container into the collection jug. Be careful not to spill any of the urine. Use the equipment provided by the lab. ? Do not let any toilet paper or stool (feces) get into the jug. This will contaminate the sample. ? Stop collecting your urine 24 hours after you started. Collect the last specimen as close as possible to the end of the 24-hour period. ? Keep the jug cool in an ice chest or keep it in the refrigerator during collection. ? When the 24-hour collection is complete, take the jug to the lab as soon as possible. Keep the jug cool in an ice chest while you are bringing it to the lab. What do the results mean? Talk with your health care provider about what your results mean. Questions to ask your health care provider Ask your health care provider, or the department that is doing the test: ? When will my results be ready? ? How will I get my results? ? What are my treatment options? ? What other tests do I need? ? What are my next steps? Summary ? A 24-hour urine specimen is a lab test that requires you to collect all of your urine for an entire day. ? When you get up in the morning, urinate in the toilet and flush. Write down the time. For the next 24 hours, collect all of your urine in the collection jug that you received from the lab. ? Keep the jug cool while collecting the urine and while bringing it back to the lab. ? Take the jug of urine back to the lab as soon as possible after the collection period has ended. This information is not intended to replace advice given to you by your health care provider. Make sure you discuss any questions you have with your health care provider. Document Revised: 01/26/2022 Document Reviewed: 01/26/2022 [employer] Patient Education ? 2022 [employer]. charity: water [facility] Urology Office/Clinic Noteon 05-22-2023 Urology Office/Clinic Note Chief Complaint Pt is here for 1 yr w/ KUB HPI Staff 1 year follow up w/KUB. KUB done 05/13/23. Previous DX: asymptomatic microscopic hematuria, stress incontinence, HX of kidney stones, urge incontinence. S/P Cysto/UD done 06/12/22. Dysuria: denies Incomplete bladder emptying: denies Hematuria: denies Frequency: 3-4x a day Urgency: mild Nocturia: 1-2x a night Stream: steady stream Leaking: yes Post void dripping: denies Wearing pads/ Depends: yes wearing pads, changes 2x a day Urge incontinence: yes Stress incontinence: yes Incontinence without Sensory Awareness: denies Abdominal pain: denies Flank pain: lower back pain Sexual complaints: _ History of Present Illness Tests reviewed: reviewed UA, KUB. I have reviewed the previous health record information and history for this patient from Dr. Torres. I have reviewed and verified the staff HPI to be accurate for this encounter. There have been no associated fever, chills, flank pain, or blood in the urine. Denies any urinary infections since last encounter. Review of Systems PHQ Score Initial Depression Screen Score: 0 ROS - Provider Constitutional: denies weight loss, denies hot flashes. Eyes: denies eye problems. Gastrointestinal: denies nausea, denies vomiting. Cardiovascular: denies chest pain or angina. Integumentary: no dryness Musculoskeletal: denies musculoskeletal symptoms. ENMT: denies otolaryngeal symptoms. Respiratory: no shortness of breath. Heme/Lymph: denies easy bleeding tendency, denies easy bruising tendency. Psychiatric: no confusion, no anxiety. Genitourinary: See HPI. Physical Exam Vitals & Measurements HR: 82(Peripheral) BP: 130/71 HT: 63 in HT: 160 cm WT: 91 kg WT: 200.2 lb BMI: 35.55 General Appearance: alert , no acute distress, well nourished, well developed female. Genitourinary: bladder nonpalpable, no flank pain. Assessment/Plan 1. Kidney stones (N20.0: Calculus of kidney) KUB 05/13/23 [facility] - L nephrolithiasis grossly similar to prior study, largest 5 mm. UA today negative for blood and infection. Reviewed KUB with pt. Discussed metabolic workup including 24 hour urine and blood work for stone prevention. Recommended pt to increase fluid intake to ten to twelve 16 oz bottles a day; preferably water, clear pop, and sugar free lemonade. Follow up 1 yr with KUB or sooner if needed. Pt understands and agrees with plan. -Increase fluid intake 2. Mixed incontinence urge and stress (N39.46: Mixed incontinence) Wears pads, changes 2x/day. Follow-up With When Contact Information MELISSA CHUA, No Botello, URL [facility] [address], [place] [address]- Additional Instructions: 1 yr MARISOL, met workup Patient Education 24-Hour Urine Collection I, Elodia Fry, personally scribed for Dr. Torres on 05/22/2023 14:32:32. Documentation recorded by the scribe, Elodia Fry, accurately reflects the services(s) I performed and decisions made by me. Authenticated by Dr. Torres on 05/22/2023 14:34:30.. Problem List/Past Medical History Ongoing Asthma Asymptomatic microscopic hematuria Bipolar I disorder, mild, current or most recent episode depressed, in full remission Female stress incontinence History of kidney stones Kidney stones Mixed incontinence urge and stress Restless leg syndrome Smoker Urge incontinence Historical Body fluid retention History of kidney stone MRSA Procedure/Surgical History Cystourethroscopy with dilation of urethral stricture (06/12/2022), Carpal tunnel release, section, Dissection tonsillectomy, Excision of ganglion cyst, Laparoscopic cholecystectomy. Medications carbamazepine 200 mg ER Tab, Oral, BID CeleBREX 200 mg Cap, 200 mg= 1 cap(s), Oral, Daily duloxetine 60 mg Cap-DR, 60 mg, Oral, Daily furosemide 40 mg Tab, 40 mg= 1 tab(s), Oral, Daily Geodon 20 mg Cap, 20 mg= 1 cap(s), Oral, Daily, 5 refills, Not taking glipiZIDE 5 mg ER Tab, Oral, Daily ibuprofen, 800 mg, Oral ipratropium 0.02% Inh Valeria 2.5 mL, NEB, QID metformin 500 mg Tab, 500 mg= 1 tab(s), Oral, BID, 5 refills, Not taking methocarbamol 750 mg Tab, Oral, TID Nurtec ODT, 75 mg, Oral, Once potassium chloride, 20 mEq, Oral, Daily Sinemet 25 mg-100 mg Tab, 1 tab(s), Oral, Bedtime, PRN Trulicity Pen 0.75 mg/0.5 mL subcutaneous solution, SubCutaneous, qWeek Vitamin B12 1000 mcg Tab, Oral, Daily Allergies Flexeril (rash, itching) NSAID - Non-steroidal anti-inflammatory drug (rash) Neurontin Penicillin allergy (itching) Topamax (hives) Zonegran (Rash) gabapentin (Rash) ibuprofen (rash) naproxen tiZANidine (Rash) Social History Alcohol - Denies Alcohol Use, 07/24/2012 Current, Wine, 1-2 times per month, 01/26/2019 Employment/School Unemployed, 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 Previously employed at [employer] employed full ti (more content not included)... Normal [facility] Comment on above: Result Comment: Elec tronically Signed By: MELISSA CHUA, No Botello\.br\Date and Time Signed: 05/22/23 14:34 EDT\.br\Electronically Co-Signed By: Elodia Fry\.br\Date and Time Co-Signed: 05/22/23 14:32 EDT Procedure Visiton 05-16-2023 Procedure Visit [id number] Tim Fernando 1975 F Date Provider Department Center 05/16/2023 YASMANI AQUINO MP [facility] Medical Pavi Family History Problem Relation Age of Onset Cancer Mother Diabetes Father Cancer Maternal Grandmother Cancer Mother's Brother Cancer Mother's Sister Family Status - Relation Status Age at Mother Father Maternal Grandmother Mother's Brother Mother's Sister Level of Service:90079 [place] OFFICE/OUTPT VISIT,PROCEDURE ONLY Reason for Visit and Comments: EMG [Other] - LUE Normal [facility] RAD - MISCon 05-15-2023 RAD - MISC [id number] 0TIFF [facility] XR KUBon 05-13-2023 XR KUB [facility] [address] [address] XRay Report Signed Patient: Lisa Fernando MR#: [id number] : 1975 Acct:[id number] Age/Sex: 47 / F ADM Date: 05/13/23 Loc: XD Room: Type: [facility] Attending Dr: No Torres MD Copies to: No Torres MD Ordering Provider: No Torres MD Date of Service: 05/13/23 XR/XR KUB: Z87.442 KUB: CLINICAL INFORMATION: Follow-up kidney stones. COMPARISON: KUB 11-04-22 FINDINGS: Left nephrolithiasis grossly similar to the prior study, largest measuring 5 mm. No bowel obstruction. No free air. XR/XR KUB IMPRESSION: LEFT NEPHROLITHIASIS, GROSSLY SIMILAR TO THE PRIOR STUDY. Impression dictated by: Erik Gipson Jr., D.OJeyson05/13/2023 7:02 PM Dictation Location: [facility] Transcribed By: HARLAN 05/13/231901 Dictated By: Erik Gipson Jr, DO 05/13/231901 Signed By: 05/13/231901 Normal [facility] MM diagnostic mammo BI w/CAD on 04-16-2023 MM diagnostic mammo BI w/CAD [facility] [place] [address] Mammography Report Signed Patient: Lisa Fernando MR#: [id number] : 1975 Acct:[id number] Age/Sex: 47 / F ADM Date: 04/16/23 Loc: ID Room: Type: [facility] Attending Dr: Alex Aguirre DO Copies to: NON STAFF Alex Aguirre DO Ordering Provider: Alex Aguirre DO Date of Service: 04/16/23 MM/MM diagnostic mammo BI w/CAD: yearly mamms;Breast neoplasm CLINICAL DATA: Screening for malignancy. BILATERAL SCREENING MAMMOGRAMS - FULL FIELD DIGITAL WITH TOMOSYNTHESIS AND CAD Tomosynthesis craniocaudal and mediolateral oblique views of both breasts were obtained using low- dose digital technique. Comparison is made to prior studies from 04/11/2022, 03/31/2021, 01/31/2021, and 12/09/2019. This examination was reviewed with the aid of CAD. There are scattered fibroglandular densities. Benign-appearing calcifications are present bilaterally. There are no dominant masses, typically malignant calcifications or architectural distortion. There has been no significant interval change. MM/MM diagnostic mammo BI w/CAD IMPRESSION: NO MAMMOGRAPHIC EVIDENCE OF MALIGNANCY. ROUTINE FOLLOW-UP IS RECOMMENDED IN ONE YEAR. RESULT CODE: 2 Benign Findings(s) DENSITY CODE: 2 (approximately 25-50% glandular) FOLLOW UP: 1YR The false-negative rate of mammography is approximately 10-percent. Management of a palpable abnormality must be based on clinical grounds. Patient was entered into a reminder system with a target due date for the next mammogram. Impression dictated by: Mode Handy M.D.04/16/2023 3:13 PM Dictation Location: [facility] Transcribed By: HARLAN 04/16/23 1513 Dictated By: Mode Handy II, MD 04/16/23 1506 Signed By: 04/16/23 1513 Normal [facility] Urine Cultureon 04-12-2023 Bacteria identified Cx Nom (U) Reason for Exam Dysuria Urine 20,000 colonies/ml mixed bacterial skin contaminants 2 Days PERFORMED BY: [place] [address] PATHOLOGIST ALUMINUM CONTAINER TESTER MATEO ROJAS M.D. Normal [facility] Comment on above: Performed By: #### L IPASE, BMP, CBC, HEPATIC #### [facility] [address] [place] [address] Urine culture routineOrdered By: Augustine David on 04-12-2023 Bacteria identified Cx Nom (U) 2 Days [facility] Automated erythrocytes count in urine sediment (number/area)Ordered By: Boston Reed on 04-08-2023 RBC Auto (Urine sed) [#/Area] 20-49 [HPF] 0-4 [facility] Automated leukocytes count i n urine sediment (number/area)Ordered By: Boston Reed on 04-08-2023 WBC Auto (Urine sed) [#/Area] 50-100 [HPF] 0-4 [facility] Automated urine color determ inationOrdered By: Boston Reed on 04-08-2023 Color (U) Yellow Normal Yellow [facility] Comment on above: Order Comment: Name Collection Type:: Clean-Voided Midstream Performed By: #### A DDONUAIRMA, CUU #### [facility] [address] [place] [address] Automated urine hyaline cast s count (number/volume)Ordered By: Boston Reed on 04-08-2023 Hyaline casts Auto (U) [#/Vol] None seen [LPF] 0-1 [facility] Bilirubin Test strip Ql (U)O rdered By: Boston Reed on 04-08-2023 Bilirubin Ql (U) Negative Negative [facility] Dipstick and Microscopicon 0 04-08-2023 Appearance (U) Cloudy Critically abnormal Clear [facility] Comment on above: Order Comment: Name Collection Type:: Clean-Voided Midstream Performed By: #### A DDONUAPLUS, CUU #### [facility] [address] Bacteria,Urine None Seen Normal None Seen [facility] Comment on above: Order Comment: Name Collection Type:: Clean-Voided Midstream Performed By: #### A DDONUAPLUS, CUU #### [address] Bilirubin,Urine Negative Normal Negative [facility] Comment on above: Order Comment: Name Collection Type:: Clean-Voided Midstream Performed By: #### A DDONUAPLUS, CUU #### [place] [id number] [place] Glucose Ql (U) Normal Normal Normal [facility] Comment on above: Order Comment: Name Collection Type:: Clean-Voided Midstream Performed By: #### A DDONUAPLUS, CUU #### [place] [address] [place] Hyaline Casts,Urine None Seen Normal 0-1 [facility] Comment on above: Order Comment: Name Collection Type:: Clean-Voided Midstream Result Comment: PERF ORMED BY: [place] [address] PATHOLOGIST ALUMINUM CONTAINER TESTER MATEO ROJAS M.D. Performed By: #### A DDONUAPLUS, CUU #### [place] [address] [place] Ketones Ql (U) Trace High Negative [facility] Comment on above: Order Comment: Name Collection Type:: Clean-Voided Midstream Performed By: #### A DDONUAPLUS, CUU #### [address] Leukocyte esterase Test strip Ql (U) 2+ High Negative [facility] Comment on above: Order Comment: Name Collection Type:: Clean-Voided Midstream Performed By: #### A DDONUAPLUS, CUU #### [place] [address] [place] Nitrite,Urine Negative Normal Negative [facility] Comment on above: Order Comment: Name Collection Type:: Clean-Voided Midstream Performed By: #### A DDONUAPLUS, CUU #### [address] Occult Blood,Urine Trace High Negative [facility] Comment on above: Order Comment: Name Collection Type:: Clean-Voided Midstream Result Comment: PERF ORMED BY: [place] [address] PATHOLOGIST ALUMINUM CONTAINER TESTER MATEO ROJAS M.D. Performed By: #### A DDONUAPLUS, CUU #### [address] RBC,Urine 20-49 High 0-4 [facility] Comment on above: Order Comment: Name Collection Type:: Clean-Voided Midstream Performed By: #### A DDONUAPLUS, CUU #### [address] Specificy [place],Urine 1.026 Normal 1.001-1.030 [facility] Comment on above: Order Comment: Name Collection Type:: Clean-Voided Midstream Performed By: #### A DDONUAPLUS, CUU #### [place] [address] [place] Squamous Epithelial Cell,Urine 1-2 Normal 0-2 [facility] Comment on above: Order Comment: Name Collection Type:: Clean-Voided Midstream Performed By: #### A DDONUAPLUS, CUU #### [address] Urobilinogen,Urine Normal Normal Normal [facility] Comment on above: Order Comment: Name Collection Type:: Clean-Voided Midstream Performed By: #### A DDARMIN, CUU #### [address] WBC,Urine 50-100 High 0-4 [facility] Comment on above: Order Comment: Name Collection Type:: Clean-Voided Midstream Performed By: #### A DDLETTYPLUS, CUU #### [address] Ketones Auto test strip (U) [Mass/Vol]Ordered By: Boston Reed on 04-08-2023 Ketones (U) [Mass/Vol] Trace Negative [facility] Nitrite Test strip Ql (U)Ord ered By: Boston Reed on 04-08-2023 Nitrite Ql (U) Negative Negative [facility] Specific gravity Auto test s trip (U) [Rel density]Ordered By: Boston Reed on 04-08-2023 Specific gravity (U) [Rel density] 1.026 1.001-1.030 [facility] Squamous epithelial cells de tection in urine sediment by light microscopyOrdered By: Boston Reed on 04-08-2023 Epithelial cells.squamous LM Ql (Urine sed) 1-2 [HPF] 0-2 [facility] Urine Cultureon 04-08-2023 Bacteria identified Cx Nom (U) 75,000 colonies/ml mixed bacterial skin contaminants 2 Days PERFORMED BY: [place] [address] PATHOLOGIST ALUMINUM CONTAINER TESTER MATEO ROJAS M.D. Normal [facility] Comment on above: Performed By: #### A DDARMIN, CUU #### [address] Urine bacteria detection by automated methodOrdered By: Boston Reed on 04-08-2023 Bacteria Auto Ql (U) None seen None Seen [facility] Urine clarity by refractomet ry automatedOrdered By: Boston Reed on 04-08-2023 Clarity Refractometry automated (U) Cloudy Clear [facility] Urine culture routineOrdered By: Boston Reed on 04-08-2023 Bacteria identified Cx Nom (U) 2 Days [facility] Urine glucose measurement by automated test strip (mass/volume)Ordered By: Boston Reed on 04-08-2023 Glucose Auto test strip (U) [Mass/Vol] Normal mg/dL Normal [facility] Urine hemoglobin detection b y automated test stripOrdered By: Boston Reed on 04-08-2023 Hemoglobin Auto test strip Ql (U) Trace Negative [facility] Urine leukocyte esterase det ection by automated test stripOrdered By: Boston Reed on 04-08-2023 Leukocyte esterase Auto test strip Ql (U) 2+ Negative [facility] Urine pH measurement by auto mated test stripOrdered By: Boston Reed on 04-08-2023 pH (U) 6.0 [pH] Normal 5.0-9.0 [facility] Comment on above: Order Comment: Name Collection Type:: Clean-Voided Midstream Performed By: #### A DDONUAPLUS, CUU #### [facility] [address] Urine protein measurement by automated test strip (mass/volume)Ordered By: Boston Reed on 04-08-2023 Protein (U) [Mass/Vol] 30 mg/dL High Negative [facility] Comment on above: Order Comment: Name Collection Type:: Clean-Voided Midstream Performed By: #### A DDONUAPLUS, CUU #### [facility] [address] [place] [address] [place] Urobilinogen Auto test strip (U) [Mass/Vol]Ordered By: Boston Reed on 04-08-2023 Urobilinogen (U) [Mass/Vol] Normal mg/dL Normal [facility] Follow-Upon 04-04-2023 Follow-Up [id number] Tim Fernando 1975 F Date Provider Department Center 04/04/2023 ISAI SALINAS MP ORTHO MPORTHO Family History Problem Relation Age of Onset Cancer Mother Diabetes Father Cancer Maternal Grandmother Cancer Mother's Brother Cancer Mother's Sister Family Status - Relation Status Age at Mother Father Maternal Grandmother Mother's Brother Mother's Sister Level of Service:29867 [place] OFFICE/OUTPATIENT ESTABLISHED LOW MDM 20-29 MIN Reason for Visit and Comments: Follow-up [034212] Follow-up [722263] Normal [facility] COVID CepheidOrdered By: Smiley Corea on 03-23-2023 SARS-CoV-2 (COVID-19) Ab IA Ql Negative Negative [facility] Comment on above: This is a duplicate Cepheid Xpert Xpress CoV-2/Flu/RSV Plus RNA by RT-PCR result to be used for statistical tracking purpose only. SARS-CoV-2 (COVID-19) RNA DEBBIE+probe Ql (Unsp spec) [facility] C reactive protein [Mass/vol ume] in Serum or PlasmaOrdered By: Edilia Buitrago on 03-11-2023 CRP [Mass/Vol] 1.1 mg/dL 0.0-0.5 [facility] Erythrocyte sedimentation ra te by Photometric methodOrdered By: Edilia Buitrago on 03-11-2023 ESR Photometric method (Bld) [Velocity] 23 mm/hr 0-19 [facility] Glucose [Mass/volume] in Ser um or PlasmaOrdered By: Michael Morley on 03-11-2023 Glucose [Mass/Vol] 132 mg/dL 70-100 [facility] Comment on above: ADA recommended refe rence rangeRandom Glucose Reference Range is dependent on time and content of last meal. Glucose of more than 200 mg/dL in a nonstressed, ambulatory subject supports the diagnosis of Diabetes Mellitus. Glucose mean value [Mass/vol ume] in Blood Estimated from glycated hemoglobinOrdered By: Michael Morley on 03-11-2023 Average glucose Estimated from glycated hemoglobin (Bld) [Mass/Vol] 146 mg/dL [facility] Hemoglobin A1c percentageOrd ered By: Michael Morley on 03-11-2023 HbA1c (Bld) [Mass fraction] 6.7 % 4.3-5.6 [facility] Comment on above: Increased risk for d iabetes: 5.7 - 6.4diabetes: >6.4glycemic control for adults with diabetes: <7.0 Vitamin B12 ser/plasOrdered By: Michael Morley on 03-11-2023 Cobalamin (Vitamin B12) [Mass/Vol] 495 pg/mL 180-914 [facility] 36on 02-25-2023 36 It sounds as though she is getting numbness in all of her fingers, but predominantly the median nerve distribution. I recommended that she get a wrist splint from the drugstore or online and try that for a few weeks to see if that helps. Normal [facility] Orders Onlyon 02-25-2023 Orders Only [id number] Tim Fernando 1975 F Date Provider Department Center 02/25/2023 ISAI SALINAS MP ORTHO MPORTHO Family History Problem Relation Age of Onset Cancer Mother Diabetes Father Cancer Maternal Grandmother Cancer Mother's Brother Cancer Mother's Sister Family Status - Relation Status Age at Mother Father Maternal Grandmother Mother's Brother Mother's Sister [facility] Follow-Upon 01-15-2023 Follow-Up [id number] AndreaTimranda Mckeon 1975 F Date Provider Department Center 01/15/2023 IASI SALINAS MP [facility] Family History Problem Relation Age of Onset Cancer Mother Diabetes Father Cancer Maternal Grandmother Cancer Mother's Brother Cancer Mother's Sister Family Status - Relation Status Age at Mother Father Maternal Grandmother Mother's Brother Mother's Sister Level of Service:92294 [place] POSTOP FOLLOW UP VISIT RELATED TO ORIGINAL PX (GC) Reason for Visit and Comments: Edema [[id number]] Pain [136] Follow-up [216439] Normal [facility] CT FOOT RT WO CONon 12-19-19 CT FOOT RT WO CON EXAMINATION: CT FOOT RT WO CON HISTORY: Idiopathic osteoarthritis COMPARISON: 12/05/2022 TECHNIQUE: Multi-planar CT images were created without IV contrast. Dose reduction techniques were achieved by using automated exposure control and/or adjustment of mA and/or kV according to patient size and/or use of iterative reconstruction technique. FINDINGS: BONES: Persistent flexion of the toes. No acute fracture or dislocation. Moderate to severe degenerative changes most significant in the midfoot with bony remodeling and subchondral cystic changes and fragmentation most significant along the navicular and cuneiforms extending to the bases of the metatarsals. Moderate plantar enthesopathic spurring of the calcaneus SOFT TISSUES: Negative. No visible soft tissue swelling. EFFUSION: None visible. OTHER: Negative. IMPRESSION: Moderate to severe degenerative changes of the midfoot extending to the tarsometatarsal joints. Electronically authenticated by: MICHAEL OLIVER Date: 2022-12-18 17:15 Normal [facility] XR FOOT HUNTER MIN 3 VIEWSon XR FOOT HUNTER MIN 3 VIEWS EXAMINATION: XR FOOT HUNTER MIN 3 VIEWS HISTORY: Pain COMPARISON: 08/24/19. FINDINGS: RIGHT FINDINGS: BONES: Partial flattening of the plantar arch. Moderate enthesopathic spurring of the calcaneous, severe osteoarthritis in the midfoot. Lateral subluxation of the metatarsals in relation to the tarsal bones of 8 mm. SOFT TISSUES: Negative. No visible soft tissue swelling. OTHER: Negative. LEFT FINDINGS: BONES: Partial flattening of the plantar arch. Moderate enthesopathic spurring of the calcaneous, Mild osteoarthritis in the midfoot. SOFT TISSUES: Negative. No visible soft tissue swelling. OTHER: Negative. IMPRESSION: RIGHT CONCLUSION: Severe degenerative changes with lateral subluxation of the metatarsals LEFT CONCLUSION: Moderate degenerative changes Electronically authenticated by: MICHAEL OLIVER Date: 2022-12-05 17:47 Normal [facility] Follow-Upon 12-04-2022 Follow-Up [id number] Tim Fernando 1975 F Date Provider Department Center 12/04/2022 ISAI SALINAS MP Family History Problem Relation Age of Onset Cancer Mother Diabetes Father Cancer Maternal Grandmother Cancer Mother's Brother Cancer Mother's Sister Family Status - Relation Status Age at Mother Father Maternal Grandmother Mother's Brother Mother's Sister Level of Service:29980 [place] POSTOP FOLLOW UP VISIT RELATED TO ORIGINAL PX Reason for Visit and Comments: Follow-up [[id number]] Normal [facility] 36on 11-13-2022 36 Pt coming in today Normal [facility] Office Visiton 11-13-2022 Follow-up visit [id number] Tim Fernando 1975 F Date Provider Department Center 11/13/2022 ISAI SALINAS MP Family History Problem Relation Age of Onset Cancer Mother Diabetes Father Cancer Maternal Grandmother Cancer Mother's Brother Cancer Mother's Sister Family Status - Relation Status Age at Mother Father Maternal Grandmother Mother's Brother Mother's Sister Level of Service:06748 [place] POSTOP FOLLOW UP VISIT RELATED TO ORIGINAL PX (GC) Reason for Visit and Comments: Follow-up [687676] Post-op [483] Normal [facility] EDPROVon 11-10-2022 EDPROV [facility] Maverick HYATT [facility] [id number] EMERGENCY DEPARTMENT ENCOUNTER ED Room: CHIEF COMPLAINT Chief Complaint Patient presents with Post-op Problem HISTORY OF PRESENT ILLNESS HPI Patient is a 47-year-old female with recent hand surgery by Dr. Delong who has had 2 rounds of antibiotics Keflex and Bactrim for postop infections who complains of pin in in her left hand migrating and causing her more pain. Patient denies any numbness or tingling in the digits. She has not had any drainage or fevers. REVIEW OF SYSTEMS Review of Systems Musculoskeletal: Positive for arthralgias. Negative for joint swelling. Skin: Negative. Neurological: Negative for weakness and numbness. PAST MEDICAL HISTORY has a past medical history of Anxiety, Arthritis, Depression, Diabetes mellitus (CMS/HCC), and Muscle ache. SURGICAL HISTORY has a past surgical history that includes Hand Arthroplasty (Left, 03/19/2022); Knee surgery (Left); section, low transverse; Kidney stone surgery; Lithotripsy; Cholecystectomy; Breast lumpectomy (Left); Carpal tunnel release (Bilateral); Hand Arthroplasty (Left); and Knee Arthroplasty. CURRENT MEDICATIONS Previous Medications ACETAMINOPHEN (TYLENOL) 500 MG TABLET acetaminophen 500 mg tablet ALBUTEROL 90 MCG/ACTUATION INHALER if needed. CALCIPOTRIENE (DOVONEX) 0.005 % OINTMENT APPLY TO SCALP TOPICALLY OR MIX WITH CLOBETASOL SHAMPOO 2- 3 TIMES A WEEK CARBAMAZEPINE (TEGRETOL) 100 MG CHEWABLE TABLET 200 mg once daily as directed. CARBIDOPA-LEVODOPA (SINEMET) 10-100 MG TABLET Take 1 tablet by mouth at bedtime. CELECOXIB (CELEBREX) 200 MG CAPSULE 1 capsule DAILY (route: oral) CETIRIZINE (ZYRTEC) 10 MG TABLET Take 10 mg by mouth if needed. CLOBETASOL 0.05 % SHAMPOO LATHER ON WET HAIR, LEAVE ON 5 MIN, RINSE TOPICALLLY 2-3 WEEKLY CLOTRIMAZOLE-BETAMETHA SONE (LOTRISONE) CREAM APPLY TO THE AFFECTED AREA TWICE A DAY CYANOCOBALAMIN (VITAMIN B-12) 1,000 MCG TABLET Take 1,000 mcg by mouth in the morning. DIPHENHYDRAMINE 25 MG TABLET TAKE 1 TABLET BY MOUTH EVERY 8 HOURS NEEDED FOR ITCHING DULOXETINE (CYMBALTA) [address] CAPSULE Take 30 mg by mouth in the morning. Do not crush or chew. PT TAKES WITH 60 MG CAPSULE FOR TOTAL DOSE OF 90 MG. DULOXETINE (CYMBALTA) [address] CAPSULE Take 60 mg by mouth in the morning. ALSO TAKES 30 MG CAPSULE FOR TOTAL DOSE OF 90 MG. ESTRADIOL (ESTRACE) 0.01 % (0.1 MG/GRAM) VAGINAL CREAM INSERT 1 GRAM VAGINALLY ON SATURDAY,SATURDAY AND SATURDAY FLUOCINONIDE (LIDEX) 0.05 % EXTERNAL SOLUTION fluocinonide 0.05 % topical solution APPLY TO SCALP (AVOID FACE AND NECK) DAILY NEEDED FOR FLARES FUROSEMIDE (LASIX) 40 MG TABLET Take 40 mg by mouth in the morning. HYDROCODONE-ACETAMINOP HEN (NORCO) 5-325 MG TABLET Take 1 tablet by mouth every 6 (six) hours if needed for severe pain (8-10 pain score) for up to 7 days. IBUPROFEN 800 MG TABLET Take 800 mg by mouth every 6 (six) hours if needed. LIRAGLUTIDE (VICTOZA) 0.6 MG/0.1 ML (18 MG/3 ML) INJECTION Inject 0.6 mg under the skin in the morning. LORATADINE (CLARITIN) 10 MG TABLET Take 10 mg by mouth in the morning. PEN NEEDLE, DIABETIC 32 GAUGE X 5/32 NEEDLE DIRECTED SUBCUTANEOUSLY DAILY POTASSIUM CHLORIDE CR (K-TAB) 20 MEQ ER TABLET TAKE 1 TABLET BY MOUTH ONCE DAILY WITH FOOD RIMEGEPANT (NURTEC ODT) 75 MG TABLET,DISINTEGRATING Nurtec ODT 75 mg disintegrating tablet TAKE 1 TABLET BY MOUTH AT THE ONSET OF MIGRAINE SYMBICORT 160-4.5 MCG/ACTUATION INHALER INHALE 2 PUFFS BY MOUTH TWICE DAILY NEEDED FOR UP TO 12 PUFFS VITAMIN C WITH MARION HIPS 500 MG TABLET TAKE 1 TABLET BY MOUTH ONCE DAILY FOR 30 DAYS ALLERGIES is allergic to amoxicillin, cyclobenzaprine, morphine, ciprofloxacin, penicillins, and topamax [topiramate]. FAMILY HISTORY She indicated that the status of her mother is unknown. She indicated that the status of her father is unknown. She indicated that the status of her maternal grandmother is unknown. She indicated that the status of her mother's sister is unknown. She indicated that the status of her mother's brother is unknown. family history includes Cancer in her maternal grandmother, mother, mother's brother, and mother's sister; Diabetes in her father. SOCIAL HISTORY reports that she has quit smoking. Her smoking use included cigarettes. She has a 0.25 pack-year smoking history. She has quit using smokeless tobacco. She reports current alcohol use of about 2.0 standard drinks per week. She reports that she does not use drugs. PHYSICIAL EXAM INITIAL VITALS: height is 1.6 m (5' 3 ) and weight is 95.3 kg (210 lb). Her temperature is 37.1 ???C (98.8 ???F). Her blood pressure is 127/55 and her pulse is 88. Her respiration is 18 and oxygen saturation is 98%. Physical Exam Vitals and nursing note reviewed. Constitutional: Appearance: Normal appearance. Muscul (more content not included)... Normal [facility] EDNURSon 11-09-2022 EDNURS Pt had surgery on le ft wrist 10/25. This past , pt began having increased pain and swelling. Pt has exposed pin pushing out of her wrist. Normal [facility] Operative Reporton Operative Report [id number] 0CD:127 Normal [facility] RAD - MISCon 11-08-2022 RAD - MISC [id number] 0CD:127 Normal [facility] XR KUB 1 VIEWon 11-08-2022 XR KUB 1 VIEW EXAMINATION: XR KUB 1 VIEW HISTORY: Urolithiasis COMPARISON: XR KUB 10/18/2022 FINDINGS: KIDNEY/URETER - RIGHT: No visible renal or ureteral calcifications. KIDNEY/URETER - LEFT: 2 adjacent calcifications within lower pole of left kidney, approximately 8 mm and 5 mm in length. PELVIS: No visible ureteral stones. Stable small phleboliths within lower right pelvis. BOWEL: No abnormal dilation or deviation. BONES: No acute abnormality. OTHER: Negative. No abnormal gaseous collections. IMPRESSION: 1. Grossly stable left nephrolithiasis. Electronically authenticated by: FABY TIWARI Date: 2022-11-08 09:29 Normal [facility] 29on 11-06-2022 29 Addended by: ISAI SUN on: 11/06/2022 05:49 PM Modules accepted: Orders Normal [facility] Office Visiton 11-06-2022 Follow-up visit [id number] Tim Fernando 1975 F Date Provider Department Center 11/06/2022 [id number] SUN MP ORTHO MPORTHO Family History Problem Relation Age of Onset Cancer Mother Diabetes Father Cancer Maternal Grandmother Cancer Mother's Brother Cancer Mother's Sister Family Status - Relation Status Age at Mother Father Maternal Grandmother Mother's Brother Mother's Sister Level of Service:93125 [place] POSTOP FOLLOW UP VISIT RELATED TO ORIGINAL PX (GC) Reason for Visit and Comments: Post-op [483] Normal [facility] Alanine aminotransferase [En zymatic activity/volume] in Serum or PlasmaOrdered By: Issa Stovall on 11-04-2022 ALT [Catalytic activity/Vol] 15 U/L 7-52 [facility] Albumin [Mass/volume] in Ser um or Plasma by Bromocresol green (BCG) dye binding methoOrdered By: Issa Stovall on 11-04-2022 Albumin BCG dye [Mass/Vol] 4.5 g/dL 3.5-5.7 [facility] Alkaline phosphatase [Enzyma tic activity/volume] in Serum or PlasmaOrdered By: Issa Stovall on 11-04-2022 ALP [Catalytic activity/Vol] 89 U/L 34-104 [facility] Aspartate aminotransferase [ Enzymatic activity/volume] in Serum or PlasmaOrdered By: Issa Stovall on 11-04-2022 AST [Catalytic activity/Vol] 18 U/L 13-39 [facility] BASIC METABOLIC PANELon 04-0 Anion gap [Moles/Vol] 10 mmol/L Normal 7-20 [facility] Comment on above: Performed By: #### L AB15 ####[facility] ([facility]AKER)[address] [place] [address] Calcium [Mass/Vol] 9.2 mg/dL Normal 8.6-10.3 [facility] Comment on above: Performed By: #### L AB15 ####[facility] (BEAKER)[address] [place] [address] Chloride [Moles/Vol] 100 mmol/L Normal 98-107 [facility] Comment on above: Performed By: #### L AB15 ####[facility] ([facility]AKER)[address] [place] [address] CO2 [Moles/Vol] 29 mmol/L Normal 21-31 [facility] Comment on above: Performed By: #### L AB15 ####[facility] ([facility]ER)[address] [place] [address] Creatinine [Mass/Vol] 0.65 mg/dL Normal 0.60-1.20 [facility] Comment on above: Performed By: #### L AB15 ####[facility] (BEAKER)[address] [place] [address] GLOMERULAR FILTRATION RATE ML/MIN/1.73 SQ M.PREDICTED 109.9 mL/min/1.73m*2 Normal >60.0 [facility] Comment on above: Result Comment: The [facility]???s estimated glomerular filtration rate (eGFR) will no longer include consideration of race in its calculation. The [employer]???s eGFR Task Force developed new recommendations for the estimation of the glomerular filtration rate in the [place] They recommend immediate implementation of the new equation refit without the race variable in all laboratories because the calculation does not include race. In addition to not including race in the calculation and reporting, it included diversity in its development, and has acceptable performance characteristics and potential consequences that do not disproportionately affect any one group of individuals. Performed By: #### L [id number] ####[facility] (BEAKER)[address] [place] [address] Glucose [Mass/Vol] 105 mg/dL High 70-100 [facility] Comment on above: Performed By: #### L [id number] ####[facility] (BEAKER)[address] [place] [address] Potassium [Moles/Vol] 3.9 mmol/L Normal 3.5-5.1 [facility] Comment on above: Performed By: #### L [id number] ####[facility] (BEAKER)[address] [place] [address] Sodium [Moles/Vol] 135 mmol/L Low 136-145 [facility] Comment on above: Performed By: #### L [id number] ####[facility] (BEAKER)[address] [facility] [place] [address] Urea nitrogen [Mass/Vol] 14 mg/dL Normal 7-25 [facility] Comment on above: Performed By: #### L [id number] ####[facility] (BEAKER)[address] [place] [address] UREA NITROGEN/CREATININE (MASS RATIO) IN SER/PLAS 21.5 Normal [facility] Comment on above: Performed By: #### L [id number] ####[facility] (BEAKER)[address] [facility] [place] [address] Basophils Auto (Bld) [#/Vol] Ordered By: Issa Stovall on 11-04-2022 Basophils (Bld) [#/Vol] 0.0 10*3/uL 0.0-0.2 [facility] Basophils/100 WBC Auto (Bld) Ordered By: Issa Stovall on 11-04-2022 Basophils/100 WBC (Bld) 0.4 % . [facility] Bilirubin Test strip Ql (U)O rdered By: Issa Stovall on 11-04-2022 Bilirubin Ql (U) Negative Negative [facility] Bilirubin.total [Mass/volume ] in Serum or PlasmaOrdered By: Issa Stovall on 11-04-2022 Bilirubin [Mass/Vol] 0.4 mg/dL 0.3-1.0 [facility] C-REACTIVE PROTEINon 023 C REACTIVE PROTEIN (MG/L) IN SER/PLAS 8.2 mg/L High 0.0-7.0 [facility] Comment on above: Performed By: #### L [id number] #### [facility] (BEAKER) [address] [place] [address] CBC WITH AUTO DIFFERENTIALon 11-04-2022 Basophils (Bld) [#/Vol] 0.06 10*3/uL Normal 0.00-0.20 [facility] Comment on above: Performed By: #### L [id number] ####[facility] (BEAKER)[address] [place] [address] Basophils/100 WBC (Bld) 0.6 % Normal 0.0-1.0 [facility] Comment on above: Performed By: #### L [id number] ####[facility] (BEAKER)[address] [place] [address] Eosinophils (Bld) [#/Vol] 0.26 10*3/uL Normal 0.00-0.50 [facility] Comment on above: Performed By: #### L [id number] ####[facility] (BEAKER)[address] [place] [address] Eosinophils/100 WBC (Bld) 2.6 % Normal 0.0-6.0 [facility] Comment on above: Performed By: #### L [id number] ####[facility] (BEAKER)[address] [place] [address] Erythrocyte distribution width (RBC) [Ratio] 12.8 % Normal 11.5-15.0 [facility] Comment on above: Performed By: #### L [id number] ####[facility] (BEAKER)[address] [place] [address] ERYTHROCYTE MEAN CORPUSCULAR HEMOGLOBIN CONCENTRATION (G/DL) BY AUTOMATED 34.4 g/dL Normal 32.0-35.0 [facility] Comment on above: Performed By: #### L [id number] ####[facility] (BEAKER)[address] [place] [address] Hematocrit (Bld) [Volume fraction] 37.5 % Normal 36.0-48.0 [facility] Comment on above: Performed By: #### L [id number] ####[facility] [place] [address] Hemoglobin (Bld) [Mass/Vol] 12.9 g/dL Normal 12.0-15.0 [facility] Comment on above: Performed By: #### L [id number] ####[facility] ([facility])[address] [place] [address] Immature granulocytes (Bld) [#/Vol] 0.06 10*3/uL Normal 0.00-0.20 [facility] Comment on above: Performed By: #### L [id number] ####[facility] ([facility] [place] [address] Immature granulocytes/100 WBC (Bld) 0.6 % Normal 0.0-1.0 [facility] Comment on above: Performed By: #### L [id number] ####[facility] (BEAKER)[address] [place] [address] Lymphocytes (Bld) [#/Vol] 2.68 10*3/uL Normal 1.20-4.00 [facility] Comment on above: Performed By: #### L [id number] ####[facility] (BEAKER)[address] [place] [address] Lymphocytes/100 WBC (Bld) 27.2 % Normal 20.0-45.0 [facility] Comment on above: Performed By: #### L [id number] ####[facility] (BEAKER)[address] [place] [address] MCH (RBC) [Entitic mass] 27.7 pg Normal 27.0-33.0 [facility] Comment on above: Performed By: #### L [id number] ####[facility] (BEAKER)[address] [place] [address] MCV (RBC) [Entitic vol] 80.6 fL Low 82.0-98.0 [facility] Comment on above: Performed By: #### L [id number] ####[facility] (BEAKER)[address] [place] [address] Monocytes (Bld) [#/Vol] 0.89 10*3/uL Normal 0.10-1.00 [facility] Comment on above: Performed By: #### L [id number] ####[facility] (BEAKER)[address] [place] [address] Monocytes/100 WBC (Bld) 9.0 % Normal 5.0-12.0 [facility] Comment on above: Performed By: #### L [id number] ####[facility] ([facility] [place] [address] Neutrophils (Bld) [#/Vol] 5.92 10*3/uL Normal 1.60-7.60 [facility] Comment on above: Performed By: #### L [id number] ####[facility] ([facility] [place] [address] Neutrophils/100 WBC (Bld) 60.0 % Normal 40.0-72.0 [facility] Comment on above: Performed By: #### L [id number] ####[facility] ([facility] [place] [address] NRBC (PER 100 WBCS) BY AUTOMATED COUNT 0.0 % Normal 0.0-0.0 [facility] Comment on above: Performed By: #### L [id number] ####[facility] (BEAKER)[address] [place] [address] PLATELETS (10*3/UL) IN BLOOD AUTOMATED COUNT 265 10*3/uL Normal 150-400 [facility] Comment on above: Performed By: #### L [id number] ####[facility] (BEAKER)[address] [place] [address] RBC (Bld) [#/Vol] 4.65 10*6/uL Normal 3.80-5.00 [facility] Comment on above: Performed By: #### L [id number] ####[facility] (BEAKER)[address] [place] [address] WBC (Bld) [#/Vol] 9.87 10*3/uL Normal 4.00-10.60 [facility] Comment on above: Performed By: #### L [id number] ####[facility] (BEAKER)[address] [place] [address] Calcium [Mass/volume] in Ser um or PlasmaOrdered By: Issa Stovall on 11-04-2022 Calcium [Mass/Vol] 9.8 mg/dL 8.6-10.3 [facility] Carbon dioxide, total [Moles /volume] in Serum or PlasmaOrdered By: Issa Stovall on 11-04-2022 CO2 [Moles/Vol] 22.6 mmol/L 21.0-31.0 [facility] Chloride [Moles/volume] in S claudia or PlasmaOrdered By: Issa Stovall on 11-04-2022 Chloride [Moles/Vol] 99 mmol/L 98-107 [facility] Color Auto (U)Ordered By: Vale Stovall on 11-04-2022 Color (U) Yellow Yellow [facility] Creatinine [Mass/volume] in Serum or PlasmaOrdered By: Issa Stovall on 11-04-2022 Creatinine [Mass/Vol] 0.75 mg/dL 0.60-1.20 [facility] EDNURSon 11-04-2022 EDNURS Mode of arrival (squ ad #, walk in, police, etc): walk in Chief complaint(s): post surgical pain Arrival Note (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 She had a L hand arthroplasty on 10/25/[address] Sun, she has yet to have a follow up appt with her surgeon. Pt reports she has iced the area and last took her pain meds at 1999 this evening (norco). 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 Pt denies any fever,chills/N/V since surgery Normal [facility] EDPROVon 11-04-2022 EDPROV HPI Chief Complaint Patient presents with postop surgical pain PT here from home via private auto. Pt with male visitor at bedside who doesn't partiticpate in history. Pt reports that she is conerned that the pin is infected . PT reports that had a repeat surgery on her left hand by Dr Sun on Oct 25. Pt notes that was done for arthritis . Pt notes that has increased redness and yellow drainge from the pin site in the last 24 hours. Pt contacted surgeon and they told her to go to ED so they could look at it. Pt with no fever, chills. Pt with no n/v. Pt with pain and minimal swelling. Pt with no drainage or opening to 2 sutured wound sites. Pt with no splinting/covering to wound. Pt 1st post op appointment is Saturday (2 days from now). Patient History Past Medical History: Diagnosis Date Anxiety Arthritis Depression Diabetes mellitus (CMS/HCC) Muscle ache LEGS Past Surgical History: Procedure Laterality Date BREAST LUMPECTOMY Left CARPAL TUNNEL RELEASE Bilateral SECTION, LOW TRANSVERSE CHOLECYSTECTOMY HAND ARTHROPLASTY Left 03/19/2022 burtons HAND ARTHROPLASTY Left KIDNEY STONE SURGERY KNEE SURGERY Left LITHOTRIPSY No family history on file. Social History Tobacco Use Smoking status: Former Types: Cigarettes Smokeless tobacco: Former Vaping Use Vaping Use: Some days Substance Use Topics Alcohol use: Yes Comment: OCCASIONALY Drug use: Never Review of Systems Review of Systems Constitutional: Negative for chills and fever. Musculoskeletal: Positive for arthralgias and joint swelling. Skin: Positive for color change and wound. Physical Exam ED Triage Vitals [11/03/22 2328] Temp Heart Rate Resp BP 36.4 ???C (97.5 ???F) 77 18 (!) 112/92 SpO2 Temp Source Heart Rate Source Patient Position 100 % Temporal Monitor Sitting BP Location FiO2 (%) Left arm -- Physical Exam Constitutional: Appearance: Normal appearance. Cardiovascular: Rate and Rhythm: Normal rate and regular rhythm. Pulses: Normal pulses. Heart sounds: Normal heart sounds. Pulmonary: Effort: Pulmonary effort is normal. Breath sounds: Normal breath sounds. Musculoskeletal: General: Swelling and tenderness present. Skin: General: Skin is warm and dry. Comments: Erythema with no drainge around pin site to left radial side wrist/hand. Pt with sutured surgical wound to dorsum left distal wrist as well as to hand with no drainage, opening or redness. Neurological: Mental Status: She is alert and oriented to person, place, and time. Procedures Labs Reviewed SEDIMENTATION RATE - Abnormal Result Value Sed Rate 36 (*) BASIC METABOLIC PANEL - Abnormal Sodium 135 (*) Potassium 3.9 Chloride 100 CO2 29 BUN 14 Creatinine 0.65 Glucose 105 (*) Calcium 9.2 Anion Gap 10 eGFR 109.9 BUN/Creatinine Ratio 21.5 CBC WITH AUTO DIFFERENTIAL - Abnormal Auto WBC 9.87 RBC 4.65 Hemoglobin 12.9 Hematocrit 37.5 MCV 80.6 (*) MCH 27.7 MCHC 34.4 RDW 12.8 Neutrophils Relative 60.0 Lymphocytes Relative 27.2 Monocytes Relative 9.0 Eosinophils Relative 2.6 Basophils Relative 0.6 Neutrophils Absolute 5.92 Lymphocytes Absolute 2.68 Monocytes Absolute 0.89 Eosinophils Absolute 0.26 Basophils Absolute 0.06 Platelets 265 nRBC % 0.0 Immature Granulocytes Relative 0.6 Immature Granulocytes Absolute 0.06 C-REACTIVE PROTEIN - Abnormal CRP 8.2 (*) CBC AND DIFFERENTIAL Narrative: The following orders were created for panel order CBC and differential. Procedure Abnormality Status --------- ------ CBC auto differential[[id number]] Abnormal Final result Please view results for these tests on the individual orders. XR hand 3+ views left Preliminary Result Postsurgical changes of the first CMC joint without complication. Approved by:Francisco Jeff11/04/2022 1:31 AM. ED Course & MDM ED Course as of 11/06/22 0920 Weinert Nov 04, 2022 0047 Pt/visitor aware that will be in contact with her surgeon to evaluate wound. [CS] 0828 I spoke with ortho about this consult. He reports that he has already seen the pt and he discussed followup plans with her. He recommended that she have antibiotics but he is unable to do this in the system reportedly. He also reports that he talked with her about her splint and padding it as well as wearing it. [CS] ED Course User Index [CS] Rose Fernando MD Diagnoses as of 11/06/22 0920 Infection of superficial incisional surgical site after procedure, initial encounter Medical Decision Making Post op bleeding, infection, hardware complication Problems Addressed: Infection of superficial incisional surgical site after procedure, initial encounter: acute illness or injury Amount and/or Complexity of Data Reviewed External Data Reviewed: notes. Details: Pt with hx Deleon soft tissue arthroplasty in past. Pt with continued pain. Pt with thumb/index soft tissue interpositi (more content not included)... Normal [facility] Eosinophils Auto (Bld) [#/Vo l]Ordered By: Issa Stovall on 11-04-2022 Eosinophils (Bld) [#/Vol] 0.3 10*3/uL 0.0-0.45 [facility] Eosinophils/100 WBC Auto (Bl d)Ordered By: Issa Stovall on 11-04-2022 Eosinophils/100 WBC (Bld) 2.0 % . [facility] Erythrocyte distribution wid th Auto (RBC) [Ratio]Ordered By: Issa Stovall on 11-04-2022 Erythrocyte distribution width (RBC) [Ratio] 13.6 % 11.9-15.3 [facility] Globulin Calc (S) [Mass/Vol] Ordered By: Issa Stovall on 11-04-2022 Globulin (S) [Mass/Vol] 3.2 g/dL [facility] Glucose [Mass/volume] in Ser um or PlasmaOrdered By: Issa Stovall on 11-04-2022 Glucose [Mass/Vol] 154 mg/dL 70-100 [facility] Comment on above: ADA recommended refe rence rangeRandom Glucose Reference Range is dependent on time and content of last meal. Glucose of more than 200 mg/dL in a nonstressed, ambulatory subject supports the diagnosis of Diabetes Mellitus. Hematocrit Auto (Bld) [Volum e fraction]Ordered By: Issa Stovall on 11-04-2022 Hematocrit (Bld) [Volume fraction] 39.0 % 34.0-46.4 [facility] Hemoglobin [Mass/volume] in BloodOrdered By: Issa Stovall on 11-04-2022 Hemoglobin (Bld) [Mass/Vol] 13.6 g/dL 11.8-15.4 [facility] Ketones Auto test strip (U) [Mass/Vol]Ordered By: Issa Stovall on 11-04-2022 Ketones (U) [Mass/Vol] Negative Negative [facility] Leukocytes [#/volume] correc cristian for nucleated erythrocytes in Blood by Automated counOrdered By: Issa Stovall on 11-04-2022 WBC corrected for nucl RBC Auto (Bld) [#/Vol] 12.5 10*3/uL 3.8-11.6 [facility] Lipase [Enzymatic activity/v olume] in Serum or PlasmaOrdered By: Issa Stovall on 11-04-2022 Lipase [Catalytic activity/Vol] 25.0 U/L 11.0-82.0 [facility] Lymphocytes Auto (Bld) [#/Vo l]Ordered By: Issa Stovall on 11-04-2022 Lymphocytes (Bld) [#/Vol] 2.1 10*3/uL 1.00-4.8 [facility] Lymphocytes/100 WBC Auto (Bl d)Ordered By: Issa Stovall on 11-04-2022 Lymphocytes/100 WBC (Bld) 16.9 % . [facility] MCH Auto (RBC) [Entitic mass ]Ordered By: Issa Stovall on 11-04-2022 MCH (RBC) [Entitic mass] 27.6 pg 24.7-34.3 [facility] MCHC Auto (RBC) [Mass/Vol]Or dered By: Issa Stovall on 11-04-2022 MCHC (RBC) [Mass/Vol] 34.8 g/dL 32.0-35.0 [facility] MCV Auto (RBC) [Entitic vol] Ordered By: Issa Stovall on 11-04-2022 MCV (RBC) [Entitic vol] 79.2 fL 80-100 [facility] Monocyte distribution width [Entitic volume] in Blood by AutomatedOrdered By: Issa Stovall on 11-04-2022 Monocyte distribution width Auto (Bld) [Entitic vol] 20.60 % 0.00-20.00 [facility] Comment on above: For adults in ED, MD W > 20.0 may be associated with a higher risk of sepsis during the first 12 hrs of hospital admission Monocytes Auto (Bld) [#/Vol] Ordered By: Issa Stovall on 11-04-2022 Monocytes (Bld) [#/Vol] 1.0 10*3/uL 0.0-0.8 [facility] Monocytes/100 WBC Auto (Bld) Ordered By: Issa Stovall on 11-04-2022 Monocytes/100 WBC (Bld) 7.8 % . [facility] Neutrophils Auto (Bld) [#/Vo l]Ordered By: Issa Stovall on 11-04-2022 Neutrophils (Bld) [#/Vol] 9.1 10*3/uL 1.8-7.7 [facility] Neutrophils/100 WBC Auto (Bl d)Ordered By: Issa Stovall on 11-04-2022 Neutrophils/100 WBC (Bld) 72.9 % . [facility] Nitrite Test strip Ql (U)Ord ered By: Issa Stovall on 11-04-2022 Nitrite Ql (U) Negative Negative [facility] No Panel InformationOrdered By: Issa Stovall on 11-04-2022 Estimated GFR (CKD-EPI) > 60.0 mL/Min [facility] Creatinine Clearance (Chem 102.90 [facility] Nucleated erythrocytes [Pres ence] in Blood by Automated countOrdered By: Issa Stovall on 11-04-2022 Nucleated RBC Auto Ql (Bld) 0.1 /100{WBC} 0-0.5 [facility] Platelet mean volume Auto (B ld) [Entitic vol]Ordered By: Issa Stovall on 11-04-2022 Platelet mean volume (Bld) [Entitic vol] 7.4 fL 6.3-10.7 [facility] Platelets Auto (Bld) [#/Vol] Ordered By: Issa Stovall on 11-04-2022 Platelets (Bld) [#/Vol] 301 10*3/uL 150-450 [facility] Potassium [Moles/volume] in Serum or PlasmaOrdered By: Issa Stovall on 11-04-2022 Potassium [Moles/Vol] 3.8 mmol/L 3.5-5.1 [facility] Protein Auto test strip (U) [Mass/Vol]Ordered By: Issa Stovall on 11-04-2022 Protein (U) [Mass/Vol] Negative Negative [facility] Protein [Mass/volume] in Ser um or PlasmaOrdered By: Issa Stovall on 11-04-2022 Protein [Mass/Vol] 7.7 g/dL 6.4-8.9 [facility] RBC Auto (Bld) [#/Vol]Ordere d By: Issa Stovall on 11-04-2022 RBC (Bld) [#/Vol] 4.92 10*6/uL 3.60-5.00 [facility] SEDIMENTATION RATEon 023 SEDIMENTATION RATE, ERYTHROCYTE 36 mm/hr High <=20 [facility] Comment on above: Performed By: #### L [id number] #### [facility] (BEAKER) [address] [place] [address] Serum or plasma albumin/glob ulin mass ratioOrdered By: Issa Stovall on 11-04-2022 Albumin/Globulin [Mass ratio] 1.4 {ratio} [facility] Serum or plasma anion gap de terminationOrdered By: Issa Stovall on 11-04-2022 Anion gap [Moles/Vol] 15.2 mmol/L 6.0-15.0 [facility] Sodium [Moles/volume] in Ser um or PlasmaOrdered By: Issa Stovall on 11-04-2022 Sodium [Moles/Vol] 133 mmol/L 136-145 [facility] Specific gravity Auto test s trip (U) [Rel density]Ordered By: Issa Stovall on 11-04-2022 Specific gravity (U) [Rel density] 1.012 1.001-1.030 [facility] Urea nitrogen [Mass/volume] in Serum or PlasmaOrdered By: Issa Stovall on 11-04-2022 Urea nitrogen [Mass/Vol] 18 mg/dL 7-25 [facility] Urine clarity by refractomet ry automatedOrdered By: Issa Stovall on 11-04-2022 Clarity Refractometry automated (U) Clear Clear [facility] Urine glucose measurement by automated test strip (mass/volume)Ordered By: Issa Stovall on 11-04-2022 Glucose Auto test strip (U) [Mass/Vol] Normal mg/dL Normal [facility] Urine hemoglobin detection b y automated test stripOrdered By: Issa Stovall on 11-04-2022 Hemoglobin Auto test strip Ql (U) Negative Negative [facility] Urine leukocyte esterase det ection by automated test stripOrdered By: Issa Stovall on 11-04-2022 Leukocyte esterase Auto test strip Ql (U) Negative Negative [facility] Urobilinogen Auto test strip (U) [Mass/Vol]Ordered By: Issa Stovall on 11-04-2022 Urobilinogen (U) [Mass/Vol] Normal mg/dL Normal [facility] WBC Auto (Bld) [#/Vol]Ordere d By: Issa Stovall on 11-04-2022 WBC (Bld) [#/Vol] 12.5 10*3/uL 3.8-11.6 [facility] pH Auto test strip (U)Ordere d By: Issa Stovall on 11-04-2022 pH (U) 5.0 [pH] 5.0-9.0 [facility] Basophils Auto (Bld) [#/Vol] Ordered By: Rhiannon Fernando on 11-03-2022 Basophils (Bld) [#/Vol] 0.0 10*3/uL 0.0-0.2 [facility] Basophils/100 WBC Auto (Bld) Ordered By: Rhiannon Fernando on 11-03-2022 Basophils/100 WBC (Bld) 0.5 % . [facility] Calcium [Mass/volume] in Ser um or PlasmaOrdered By: Rhiannon Fernando on 11-03-2022 Calcium [Mass/Vol] 8.6 mg/dL 8.6-10.3 [facility] Carbon dioxide, total [Moles /volume] in Serum or PlasmaOrdered By: Rhiannon Fernando on 11-03-2022 CO2 [Moles/Vol] 23.3 mmol/L 21.0-31.0 [facility] Chloride [Moles/volume] in S claudia or PlasmaOrdered By: Rhiannon Fernando on 11-03-2022 Chloride [Moles/Vol] 108 mmol/L 98-107 [facility] Creatinine [Mass/volume] in Serum or PlasmaOrdered By: Rhiannon Fernando on 11-03-2022 Creatinine [Mass/Vol] 0.53 mg/dL 0.60-1.20 [facility] Eosinophils Auto (Bld) [#/Vo l]Ordered By: Rhiannon Fernando on 11-03-2022 Eosinophils (Bld) [#/Vol] 0.3 10*3/uL 0.0-0.45 [facility] Eosinophils/100 WBC Auto (Bl d)Ordered By: Rhiannon Fernando on 11-03-2022 Eosinophils/100 WBC (Bld) 2.8 % . [facility] Erythrocyte distribution wid th Auto (RBC) [Ratio]Ordered By: Rhiannon Fernando on 11-03-2022 Erythrocyte distribution width (RBC) [Ratio] 13.4 % 11.9-15.3 [facility] Glucose Glucometer (BldC) [M ass/Vol]Ordered By: Walter Zhang on 11-03-2022 Glucose [Mass/Vol] 120 mg/dL [facility] Comment on above: Random Glucose Refer ence Range is dependent on time and content of last meal. Glucose of more than 200 mg/dL in a nonstressed, ambulatory subject supports the diagnosis of Diabetes Mellitus. Glucose [Mass/volume] in Ser um or PlasmaOrdered By: Rhiannon Fernando on 11-03-2022 Glucose [Mass/Vol] 106 mg/dL 70-100 [facility] Comment on above: ADA recommended refe rence rangeRandom Glucose Reference Range is dependent on time and content of last meal. Glucose of more than 200 mg/dL in a nonstressed, ambulatory subject supports the diagnosis of Diabetes Mellitus. Hematocrit Auto (Bld) [Volum e fraction]Ordered By: Rhiannon Fernando on 11-03-2022 Hematocrit (Bld) [Volume fraction] 33.6 % 34.0-46.4 [facility] Hemoglobin [Mass/volume] in BloodOrdered By: Rhiannon Fernando on 11-03-2022 Hemoglobin (Bld) [Mass/Vol] 11.7 g/dL 11.8-15.4 [facility] Leukocytes [#/volume] correc cristian for nucleated erythrocytes in Blood by Automated counOrdered By: Rhiannon Fernando on 11-03-2022 WBC corrected for nucl RBC Auto (Bld) [#/Vol] 9.1 10*3/uL 3.8-11.6 [facility] Lymphocytes Auto (Bld) [#/Vo l]Ordered By: Rhiannon Fernando on 11-03-2022 Lymphocytes (Bld) [#/Vol] 2.7 10*3/uL 1.00-4.8 [facility] Lymphocytes/100 WBC Auto (Bl d)Ordered By: Rhiannon Fernando on 11-03-2022 Lymphocytes/100 WBC (Bld) 30.1 % . [facility] MCH Auto (RBC) [Entitic mass ]Ordered By: Rhiannon Fernando on 11-03-2022 MCH (RBC) [Entitic mass] 27.9 pg 24.7-34.3 [facility] MCHC Auto (RBC) [Mass/Vol]Or dered By: Rhiannon Fernando on 11-03-2022 MCHC (RBC) [Mass/Vol] 34.8 g/dL 32.0-35.0 [facility] MCV Auto (RBC) [Entitic vol] Ordered By: Rhiannon Fernando on 11-03-2022 MCV (RBC) [Entitic vol] 80.3 fL 80-100 [facility] Monocytes Auto (Bld) [#/Vol] Ordered By: Rhiannon Fernando on 11-03-2022 Monocytes (Bld) [#/Vol] 0.8 10*3/uL 0.0-0.8 [facility] Monocytes/100 WBC Auto (Bld) Ordered By: Rhiannon Fernando on 11-03-2022 Monocytes/100 WBC (Bld) 8.3 % . [facility] Neutrophils Auto (Bld) [#/Vo l]Ordered By: Rhiannon Fernando on 11-03-2022 Neutrophils (Bld) [#/Vol] 5.3 10*3/uL 1.8-7.7 [facility] Neutrophils/100 WBC Auto (Bl d)Ordered By: Rhiannon Fernando on 11-03-2022 Neutrophils/100 WBC (Bld) 58.3 % . [facility] No Panel InformationOrdered By: Rhiannon Fernando on 11-03-2022 Estimated GFR (CKD-EPI) > 60.0 mL/Min [facility] Creatinine Clearance (Chem 145.98 [facility] Nucleated erythrocytes [Pres ence] in Blood by Automated countOrdered By: Rhiannon Fernando on 11-03-2022 Nucleated RBC Auto Ql (Bld) 0.1 /100{WBC} 0-0.5 [facility] Platelet mean volume Auto (B ld) [Entitic vol]Ordered By: Rhiannon Fernando on 11-03-2022 Platelet mean volume (Bld) [Entitic vol] 7.3 fL 6.3-10.7 [facility] Platelets Auto (Bld) [#/Vol] Ordered By: Rhiannon Fernando on 11-03-2022 Platelets (Bld) [#/Vol] 250 10*3/uL 150-450 [facility] Potassium [Moles/volume] in Serum or PlasmaOrdered By: Rhiannon Fernando on 11-03-2022 Potassium [Moles/Vol] 4.2 mmol/L 3.5-5.1 [facility] RBC Auto (Bld) [#/Vol]Ordere d By: Rhiannon Fernando on 11-03-2022 RBC (Bld) [#/Vol] 4.18 10*6/uL 3.60-5.00 [facility] Serum or plasma anion gap de terminationOrdered By: Rhiannon Fernando on 11-03-2022 Anion gap [Moles/Vol] 8.9 mmol/L 6.0-15.0 [facility] Sodium [Moles/volume] in Ser um or PlasmaOrdered By: Rhiannon Fernando on 11-03-2022 Sodium [Moles/Vol] 136 mmol/L 136-145 [facility] Urea nitrogen [Mass/volume] in Serum or PlasmaOrdered By: Rhiannon Fernando on 11-03-2022 Urea nitrogen [Mass/Vol] 13 mg/dL 7-25 [facility] WBC Auto (Bld) [#/Vol]Ordere d By: Rhiannon Fernando on 11-03-2022 WBC (Bld) [#/Vol] 9.1 10*3/uL 3.8-11.6 [facility] Alanine aminotransferase [En zymatic activity/volume] in Serum or PlasmaOrdered By: Issa Stovall on 11-02-2022 ALT [Catalytic activity/Vol] 14 U/L 7-52 [facility] Albumin [Mass/volume] in Ser um or Plasma by Bromocresol green (BCG) dye binding methoOrdered By: Issa Stovall on 11-02-2022 Albumin BCG dye [Mass/Vol] 4.1 g/dL 3.5-5.7 [facility] Alkaline phosphatase [Enzyma tic activity/volume] in Serum or PlasmaOrdered By: Issa Stovall on 11-02-2022 ALP [Catalytic activity/Vol] 78 U/L 34-104 [facility] Aspartate aminotransferase [ Enzymatic activity/volume] in Serum or PlasmaOrdered By: Issa Stovall on 11-02-2022 AST [Catalytic activity/Vol] 17 U/L 13-39 [facility] Bacterial blood cultureOrder ed By: Issa Stovall on 11-02-2022 Bacteria identified Cx Nom (Bld) NO GROWTH 5 DAYS [facility] Basophils Auto (Bld) [#/Vol] Ordered By: Issa Stovall on 11-02-2022 Basophils (Bld) [#/Vol] 0.1 10*3/uL 0.0-0.2 [facility] Basophils/100 WBC Auto (Bld) Ordered By: Issa Stovall on 11-02-2022 Basophils/100 WBC (Bld) 0.6 % . [facility] Bilirubin.total [Mass/volume ] in Serum or PlasmaOrdered By: Issa Stovall on 11-02-2022 Bilirubin [Mass/Vol] 0.3 mg/dL 0.3-1.0 [facility] C reactive protein [Mass/vol ume] in Serum or PlasmaOrdered By: Issa Stovall on 11-02-2022 CRP [Mass/Vol] 0.6 mg/dL 0.0-0.5 [facility] Calcium [Mass/volume] in Ser um or PlasmaOrdered By: Issa Stovall on 11-02-2022 Calcium [Mass/Vol] 9.2 mg/dL 8.6-10.3 [facility] Carbon dioxide, total [Moles /volume] in Serum or PlasmaOrdered By: Issa Stovall on 11-02-2022 CO2 [Moles/Vol] 24.3 mmol/L 21.0-31.0 [facility] Chloride [Moles/volume] in S claudia or PlasmaOrdered By: Issa Stovall on 11-02-2022 Chloride [Moles/Vol] 102 mmol/L 98-107 [facility] Creatinine [Mass/volume] in Serum or PlasmaOrdered By: Issa Stovall on 11-02-2022 Creatinine [Mass/Vol] 0.63 mg/dL 0.60-1.20 [facility] Eosinophils Auto (Bld) [#/Vo l]Ordered By: Issa Stovall on 11-02-2022 Eosinophils (Bld) [#/Vol] 0.3 10*3/uL 0.0-0.45 [facility] Eosinophils/100 WBC Auto (Bl d)Ordered By: Issa Stovall on 11-02-2022 Eosinophils/100 WBC (Bld) 2.9 % . [facility] Erythrocyte distribution wid th Auto (RBC) [Ratio]Ordered By: Issa Stovall on 11-02-2022 Erythrocyte distribution width (RBC) [Ratio] 13.5 % 11.9-15.3 [facility] Erythrocyte sedimentation ra te by Photometric methodOrdered By: Issa Stovall on 11-02-2022 ESR Photometric method (Bld) [Velocity] 30 mm/hr 0-19 [facility] Globulin Calc (S) [Mass/Vol] Ordered By: Issa Stovall on 11-02-2022 Globulin (S) [Mass/Vol] 3.0 g/dL [facility] Glucose [Mass/volume] in Ser um or PlasmaOrdered By: Issa Stovall on 11-02-2022 Glucose [Mass/Vol] 148 mg/dL 70-100 [facility] Comment on above: ADA recommended refe rence rangeRandom Glucose Reference Range is dependent on time and content of last meal. Glucose of more than 200 mg/dL in a nonstressed, ambulatory subject supports the diagnosis of Diabetes Mellitus. Hematocrit Auto (Bld) [Volum e fraction]Ordered By: Issa Stovall on 11-02-2022 Hematocrit (Bld) [Volume fraction] 36.4 % 34.0-46.4 [facility] Hemoglobin [Mass/volume] in BloodOrdered By: Issa Stovall on 11-02-2022 Hemoglobin (Bld) [Mass/Vol] 12.7 g/dL 11.8-15.4 [facility] Lactate [Moles/volume] in Se rum or PlasmaOrdered By: Issa Stovall on 11-02-2022 Lactate [Moles/Vol] 1.3 mmol/L 0.5-2.2 [facility] Leukocytes [#/volume] correc cristian for nucleated erythrocytes in Blood by Automated counOrdered By: Issa Stovall on 11-02-2022 WBC corrected for nucl RBC Auto (Bld) [#/Vol] 10.2 10*3/uL 3.8-11.6 [facility] Lymphocytes Auto (Bld) [#/Vo l]Ordered By: Issa Stovall on 11-02-2022 Lymphocytes (Bld) [#/Vol] 3.1 10*3/uL 1.00-4.8 [facility] Lymphocytes/100 WBC Auto (Bl d)Ordered By: Issa Stovall on 11-02-2022 Lymphocytes/100 WBC (Bld) 30.1 % . [facility] MCH Auto (RBC) [Entitic mass ]Ordered By: Issa Stovall on 11-02-2022 MCH (RBC) [Entitic mass] 28.0 pg 24.7-34.3 [facility] MCHC Auto (RBC) [Mass/Vol]Or dered By: Issa Stovall on 11-02-2022 MCHC (RBC) [Mass/Vol] 35.0 g/dL 32.0-35.0 [facility] MCV Auto (RBC) [Entitic vol] Ordered By: Issa Stovall on 11-02-2022 MCV (RBC) [Entitic vol] 80.1 fL 80-100 [facility] Monocyte distribution width [Entitic volume] in Blood by AutomatedOrdered By: Issa Stovall on 11-02-2022 Monocyte distribution width Auto (Bld) [Entitic vol] 17.88 % 0.00-20.00 [facility] Monocytes Auto (Bld) [#/Vol] Ordered By: Issa Stovall on 11-02-2022 Monocytes (Bld) [#/Vol] 0.7 10*3/uL 0.0-0.8 [facility] Monocytes/100 WBC Auto (Bld) Ordered By: Issa Stovall on 11-02-2022 Monocytes/100 WBC (Bld) 7.1 % . [facility] Neutrophils Auto (Bld) [#/Vo l]Ordered By: Issa Stovall on 11-02-2022 Neutrophils (Bld) [#/Vol] 6.0 10*3/uL 1.8-7.7 [facility] Neutrophils/100 WBC Auto (Bl d)Ordered By: Issa Stovall on 11-02-2022 Neutrophils/100 WBC (Bld) 59.3 % . [facility] No Panel InformationOrdered By: Issa Stovall on 11-02-2022 Estimated GFR (CKD-EPI) > 60.0 mL/Min [facility] Creatinine Clearance (Chem 122.84 [facility] Nucleated erythrocytes [Pres ence] in Blood by Automated countOrdered By: Issa Stovall on 11-02-2022 Nucleated RBC Auto Ql (Bld) 0.1 /100{WBC} 0-0.5 [facility] Platelet mean volume Auto (B ld) [Entitic vol]Ordered By: Issa Stovall on 11-02-2022 Platelet mean volume (Bld) [Entitic vol] 7.1 fL 6.3-10.7 [facility] Platelets Auto (Bld) [#/Vol] Ordered By: Issa Stovall on 11-02-2022 Platelets (Bld) [#/Vol] 270 10*3/uL 150-450 [facility] Potassium [Moles/volume] in Serum or PlasmaOrdered By: Issa Stovall on 11-02-2022 Potassium [Moles/Vol] 3.6 mmol/L 3.5-5.1 [facility] Protein [Mass/volume] in Ser um or PlasmaOrdered By: Issa Stovall on 11-02-2022 Protein [Mass/Vol] 7.1 g/dL 6.4-8.9 [facility] RBC Auto (Bld) [#/Vol]Ordere d By: Issa Stovall on 11-02-2022 RBC (Bld) [#/Vol] 4.55 10*6/uL 3.60-5.00 [facility] Serum or plasma albumin/glob ulin mass ratioOrdered By: Issa Stovall on 11-02-2022 Albumin/Globulin [Mass ratio] 1.4 {ratio} [facility] Serum or plasma anion gap de terminationOrdered By: Issa Stovall on 11-02-2022 Anion gap [Moles/Vol] 12.3 mmol/L 6.0-15.0 [facility] Sodium [Moles/volume] in Ser um or PlasmaOrdered By: Issa Stovall on 11-02-2022 Sodium [Moles/Vol] 135 mmol/L 136-145 [facility] Urea nitrogen [Mass/volume] in Serum or PlasmaOrdered By: Issa Stovall on 11-02-2022 Urea nitrogen [Mass/Vol] 18 mg/dL 7-25 [facility] WBC Auto (Bld) [#/Vol]Ordere d By: Issa Stovall on 11-02-2022 WBC (Bld) [#/Vol] 10.2 10*3/uL 3.8-11.6 [facility] Consent for Procedure/Surger yon 11-01-2022 Consent for Procedure/Surgery [id number] 0CD:127 Normal [facility] Pre-Certification Formon Pre-Certification Form [id number]#1.0 0CD:127 Normal [facility] 36on 10-31-2022 36 Pt called stating he r pin in hand are digging into her splint and is very painful. I spoke with Dr. Sun he stated pt can come in and OT can re-mold splint. Pt agreed and will come in [facility] Clinical Supporton Clinical Support [id number] Tim Fernando 1975 F Date Provider Department Center 10/31/2022 [id number] AVILA OT Medical Pavi No family history on file [facility] RAD - MISCon 10-30-2022 [facility] [id number]#[id number] CD:127 [facility] [id number]#[id number] 0CD:127 [facility] Glucose [Mass/volume] in Ser um or PlasmaOrdered By: Michael Morley on 10-29-2022 Glucose [Mass/Vol] 95 mg/dL 70-100 [facility] Comment on above: ADA recommended refe rence rangeRandom Glucose Reference Range is dependent on time and content of last meal. Glucose of more than 200 mg/dL in a nonstressed, ambulatory subject supports the diagnosis of Diabetes Mellitus. Glucose mean value [Mass/vol ume] in Blood Estimated from glycated hemoglobinOrdered By: Michael Morley on 10-29-2022 Average glucose Estimated from glycated hemoglobin (Bld) [Mass/Vol] 131 mg/dL [facility] Hemoglobin A1c percentageOrd ered By: Michael Morley on 10-29-2022 HbA1c (Bld) [Mass fraction] 6.2 % 4.3-5.6 [facility] Comment on above: Increased risk for d iabetes: 5.7 - 6.4diabetes: >6.4glycemic control for adults with diabetes: <7.0 Vitamin B12 ser/plasOrdered By: Michael Morley on 10-29-2022 Cobalamin (Vitamin B12) [Mass/Vol] 489 pg/mL 180-914 [facility] HPon 10-25-2022 History Of Present Illness Lisa Fernando is a 47 y.o. female presenting with With persisting pain in her left thumb after a Deleon arthroplasty. She has some laxity at the base of the thumb and she is getting abutment between the thumb and index metacarpals. I want to try to do a soft tissue spacer to see if I can prevent that and eliminate some of her discomfort today.. Past Medical History She has a past medical history of Anxiety, Arthritis, Depression, and Muscle ache. Surgical History She has a past surgical history that includes Hand Arthroplasty (Left, 03/19/2022); Knee surgery (Left); section, low transverse; Kidney stone surgery; Lithotripsy; Cholecystectomy; Breast lumpectomy (Left); and Carpal tunnel release (Bilateral). Social History She reports that she has quit smoking. Her smoking use included cigarettes. She has quit using smokeless tobacco. She reports current alcohol use. She reports that she does not use drugs. Family History No family history on file. Allergies Morphine, Penicillins, and Topamax [topiramate] Medications Medications Prior to Admission Medication Sig Dispense Refill Last Dose calcipotriene (Dovonex) 0.005 % ointment APPLY TO SCALP TOPICALLY OR MIX WITH CLOBETASOL SHAMPOO 2- 3 TIMES A WEEK 10/24/2022 carBAMazepine (TEGretol) 100 mg chewable tablet 200 mg once daily as directed. Past Week carbidopa-levodopa (Sinemet) 10-100 mg tablet Take 1 tablet by mouth at bedtime. Past Week celecoxib (CeleBREX) 200 mg capsule 1 capsule DAILY (route: oral) Past Week cetirizine (ZyrTEC) 10 mg tablet Take 10 mg by mouth if needed. Past Month DULoxetine (Cymbalta) [address] capsule Take 30 mg by mouth in the morning. Do not crush or chew. PT TAKES WITH 60 MG CAPSULE FOR TOTAL DOSE OF 90 MG. Past Week DULoxetine (Cymbalta) [address] capsule Take 60 mg by mouth in the morning. ALSO TAKES 30 MG CAPSULE FOR TOTAL DOSE OF 90 MG. Past Week furosemide (Lasix) 40 mg tablet Take 40 mg by mouth in the morning. Past Week ibuprofen 800 mg tablet Take 800 mg by mouth every 6 (six) hours if needed. Past Week liraglutide (Victoza) 0.6 mg/0.1 mL (18 mg/3 mL) injection Inject 0.6 mg under the skin in the morning. 10/24/2022 potassium chloride CR (K-Tab) 20 mEq ER tablet TAKE 1 TABLET BY MOUTH ONCE DAILY WITH FOOD Past Week albuterol 90 mcg/actuation inhaler if needed. More than a month Review of Systems Last Recorded Vitals Visit Vitals BP (!) 101/39 Pulse 63 Temp 36.2 ???C (97.2 ???F) (Temporal) Resp 18 Ht 1.6 m (5' 3 ) Wt 94.4 kg (208 lb 1.8 oz) SpO2 100% BMI 36.87 kg/m??? OB Status Hysterectomy Smoking Status Former BSA 2.05 m??? Physical Exam Constitutional: Appearance: Normal appearance. Cardiovascular: Rate and Rhythm: Normal rate. Pulmonary: Effort: Pulmonary effort is normal. Abdominal: Palpations: Abdomen is soft. Musculoskeletal: Comments: There is crepitus when I push the base of the thumb metacarpal against the base of the index finger. There is significant laxity of the base of the thumb metacarpal. Neurological: Mental Status: She is alert. Relevant Lab Results Lab Results Component Value Date CO2 27 11/18/2020 BUN 9 11/18/2020 CALCIUM 9.3 11/18/2020 EGFR >60 11/18/2020 EGFR >60 11/18/2020 Relevant Imaging Results XR knee 3 views left Narrative: XR KNEE 3 VIEWS LEFT 06/19/2022 1:24 PM CLINICAL INDICATIONS: Knee pain, unknown trauma COMPARISON: None Impression: Total knee arthroplasty. No hardware convocation. No sizable effusion. Generalized soft tissue fullness about the knee, notably suprapatellar region. Electronically signed: Chase Marcos. Assessment/Plan Principal Problem: Arthritis of carpometacarpal (CMC) joint of left thumb Soft tissue interposition arthroplasty of the thumb index metacarpal bases left hand Normal [facility] OPNOTEon 10-25-2022 OPNOTE Operative Note Patient: Lisa Fernando Date of Surgery: 10/25/2022 : 1975 Pre-operative Diagnosis: Bony impingement between the base of the thumb and index metacarpals of the left hand Post-operative Diagnosis: same Operation: soft tissue interposition arthroplasty left thumb index metacarpal bases Surgeon: Isai Sun MD Ballroom Dancer: Mimi Pierre MD Staff: Teacher Education Instructor: Sheeba Thibodeaux RN Scrub Person: Winnie GENE Weeks Anesthesia Type: Monitor Anesthesia Care Indications: The patient is an 47 y.o. female with pain at the base of the thumb and index metacarpals. She underwent a Deleno soft tissue arthroplasty. She has relief of the pain from that joint but when I saw her in clinic she was still complaining of pain with grasping. When I load the base of the thumb against the base of the index there is palpable crepitus there reproduces her pain. I felt that an attempt at a soft tissue interposition in that area hopefully will relieve her discomfort. She is brought to the operating room today for that purpose. The risks and benefits of the procedure were explained prior to surgery, and with good understanding it is agreed to proceed. Procedure: the patient was brought to the operating room and placed on the table in a supine position. An axillary block had been administered per the anesthesia service in the holding area. She is given preoperative antibiotics. A tourniquet is placed around the proximal left arm. The left arm is prepped and draped out in a sterile fashion. To begin the procedure, after standard timeout, the arm was exsanguinated with an Esmarch bandage and the tourniquet is inflated to 250 mmHg. I made a 2-1/2 cm longitudinal incision along the radial side of the base of the index metacarpal. Blunt dissection was carried out through the subcutaneous tissue. The EPL tendon was identified and protected. We identified the ECRL. I was hoping to use half of the ECRL as our interposition. That was dissected free and left for later. I went along the base of the index metacarpal and found the interspace between. The bone on the base of the index metacarpal is very rough. There is some osteophytes and prominent areas that extend down into the trapezoid. With a small rongeur we debrided that bone so that it is smoother. We do have raw bone on this side now. We used a curette and scraped the base of the thumb metacarpal. I do not feel osteophytes there that need to be debrided. I am hoping to get a little bit of bleeding so the interposition scars in place. Before going any further I took a 3-0 Vicryl suture and passed it into some of the soft tissue on the bottom of the capsule between the base of the thumb and index metacarpals to try to pull our soft tissue spacer down into that interspace and keep it in place. We left that for later. By pulling on the ECRL I could palpate it just proximal to the wrist. We made a 2 cm transverse incision a few centimeters proximal to the wrist joint. The tendons and muscle of the first extensor compartment were retracted. We identified the ECRL and ECRB. We isolated the ECRL. I tried to take half of the tendon but the port and the other portion ruptured and we ended up with the whole thing. I thought about trying to repair this but when I pull on the ECRB it actually radially deviates the wrist and I think will be okay with just the ECRB in place. The tendon was pulled out distally. We did roll it into an anchovy and sutured it together with some 3-0 Vicryl. We then used the 3 oh that I had previously placed and put a stitch through and pulled that down into the interspace and I think this will hold it in place. I then took a 0.060.062 K wire and pinned across the base of the thumb metacarpal and into the base of the index to keep the metacarpal out to length and to maintain the space between the 2. I tried to stab the soft tissue space with the K wire so that that also helps hold it in place and gets that everything the scar in. The K wire was bent, cut, and left out percutaneously. The wounds were both irrigated thoroughly with normal saline solution. The skin is closed with some buried 3-0 Vicryl and then 4-0 Novafil. A sterile dressing of Xeroflo gauze, 4 x 4 fluffs, Webril and a short arm thumb spica plaster splint is applied. The tourniquet isreleased and the drapes are removed. the arm is placed into a sling because of the regional block. All sponge and needle counts were correct at time of closure. She is Brought to the recovery room in stable condition, having tolerated the procedure well. Estimate Blood Loss: Minimal Total IV Fluids: Per anesthesia record Specimens: No specimens collected Implants: 0.062 K wire Complications: None Disposition: PACU Condition: stable Isai Sun MD Normal [facility] POCT GLUCOSE METER UNSOLICIT ED RESULTSon 10-25-2022 Glucose [Mass/Vol] 95 mg/dL Normal 70-105 [facility] Comment on above: Result Comment: jhag eman Performed By: #### L [id number] #### [facility] ([facility] [address] [place] [address] Alanine aminotransferase [En zymatic activity/volume] in Serum or PlasmaOrdered By: Kenny Rothman on 10-20-2022 ALT [Catalytic activity/Vol] 25 U/L 7-52 [facility] Albumin [Mass/volume] in Ser um or Plasma by Bromocresol green (BCG) dye binding methoOrdered By: Kenny Rothman on 10-20-2022 Albumin BCG dye [Mass/Vol] 4.1 g/dL 3.5-5.7 [facility] Alkaline phosphatase [Enzyma tic activity/volume] in Serum or PlasmaOrdered By: Kenny Rothman on 10-20-2022 ALP [Catalytic activity/Vol] 67 U/L 34-104 [facility] Aspartate aminotransferase [ Enzymatic activity/volume] in Serum or PlasmaOrdered By: Kenny Rothman on 10-20-2022 AST [Catalytic activity/Vol] 19 U/L 13-39 [facility] Basophils Auto (Bld) [#/Vol] Ordered By: Kenny Rothman on 10-20-2022 Basophils (Bld) [#/Vol] 0.1 10*3/uL 0.0-0.2 [facility] Basophils/100 WBC Auto (Bld) Ordered By: Kenny Rothman on 10-20-2022 Basophils/100 WBC (Bld) 0.6 % . [facility] Bilirubin.direct [Mass/volum e] in Serum or PlasmaOrdered By: Kenny Rothman on 10-20-2022 Bilirubin.direct [Mass/Vol] 0.10 mg/dL 0.03-0.18 [facility] Bilirubin.total [Mass/volume ] in Serum or PlasmaOrdered By: Kenny Rothman on 10-20-2022 Bilirubin [Mass/Vol] 0.3 mg/dL 0.3-1.0 [facility] Calcium [Mass/volume] in Ser um or PlasmaOrdered By: Kenny Rothman on 10-20-2022 Calcium [Mass/Vol] 9.1 mg/dL 8.6-10.3 [facility] Carbon dioxide, total [Moles /volume] in Serum or PlasmaOrdered By: Kenny Rothman on 10-20-2022 CO2 [Moles/Vol] 26.2 mmol/L 21.0-31.0 [facility] Chloride [Moles/volume] in S claudia or PlasmaOrdered By: Kenny Rothman on 10-20-2022 Chloride [Moles/Vol] 105 mmol/L 98-107 [facility] Creatinine [Mass/volume] in Serum or PlasmaOrdered By: Kenny Rothman on 10-20-2022 Creatinine [Mass/Vol] 0.53 mg/dL 0.60-1.20 [facility] Eosinophils Auto (Bld) [#/Vo l]Ordered By: Kenny Rothman on 10-20-2022 Eosinophils (Bld) [#/Vol] 0.1 10*3/uL 0.0-0.45 [facility] Eosinophils/100 WBC Auto (Bl d)Ordered By: Kenny Rothman on 10-20-2022 Eosinophils/100 WBC (Bld) 1.2 % . [facility] Erythrocyte distribution wid th Auto (RBC) [Ratio]Ordered By: Kenny Rothman on 10-20-2022 Erythrocyte distribution width (RBC) [Ratio] 13.6 % 11.9-15.3 [facility] Globulin Calc (S) [Mass/Vol] Ordered By: Kenny Rothman on 10-20-2022 Globulin (S) [Mass/Vol] 3.2 g/dL [facility] Glucose [Mass/volume] in Ser um or PlasmaOrdered By: Kenny Rothman on 10-20-2022 Glucose [Mass/Vol] 97 mg/dL 74-109 [facility] Comment on above: ADA recommended refe rence rangeRandom Glucose Reference Range is dependent on time and content of last meal. Glucose of more than 200 mg/dL in a nonstressed, ambulatory subject supports the diagnosis of Diabetes Mellitus. Hematocrit Auto (Bld) [Volum e fraction]Ordered By: Kenny Rothman on 10-20-2022 Hematocrit (Bld) [Volume fraction] 35.5 % 34.0-46.4 [facility] Hemoglobin [Mass/volume] in BloodOrdered By: Kenny Rothman on 10-20-2022 Hemoglobin (Bld) [Mass/Vol] 12.3 g/dL 11.8-15.4 [facility] Laboratory - Chemistry and C hemistry - challengeOrdered By: Kenny Rothman on 10-20-2022 GFR/1.73 sq M.predicted MDRD (S/P/Bld) [Vol rate/Area] mL/min/{1.73_m2} [facility] Leukocytes [#/volume] correc cristian for nucleated erythrocytes in Blood by Automated counOrdered By: Kenny Rothman on 10-20-2022 WBC corrected for nucl RBC Auto (Bld) [#/Vol] 8.8 10*3/uL 3.8-11.6 [facility] Lipase [Enzymatic activity/v olume] in Serum or PlasmaOrdered By: Kenny Rothman on 10-20-2022 Lipase [Catalytic activity/Vol] 29.0 U/L 11.0-82.0 [facility] Lymphocytes Auto (Bld) [#/Vo l]Ordered By: Kenny Rothman on 10-20-2022 Lymphocytes (Bld) [#/Vol] 3.2 10*3/uL 1.00-4.8 [facility] Lymphocytes/100 WBC Auto (Bl d)Ordered By: Kenny Rothman on 10-20-2022 Lymphocytes/100 WBC (Bld) 36.1 % . [facility] MCH Auto (RBC) [Entitic mass ]Ordered By: Kenny Rothman on 10-20-2022 MCH (RBC) [Entitic mass] 27.9 pg 24.7-34.3 [facility] MCHC Auto (RBC) [Mass/Vol]Or dered By: Kenny Rothman on 10-20-2022 MCHC (RBC) [Mass/Vol] 34.5 g/dL 32.0-35.0 [facility] MCV Auto (RBC) [Entitic vol] Ordered By: Kenny Rothman on 10-20-2022 MCV (RBC) [Entitic vol] 80.7 fL 80-100 [facility] Monocyte distribution width [Entitic volume] in Blood by AutomatedOrdered By: Kenny Rothman on 10-20-2022 Monocyte distribution width Auto (Bld) [Entitic vol] 19.04 % 0.00-20.00 [facility] Monocytes Auto (Bld) [#/Vol] Ordered By: Kenny Rothman on 10-20-2022 Monocytes (Bld) [#/Vol] 0.6 10*3/uL 0.0-0.8 [facility] Monocytes/100 WBC Auto (Bld) Ordered By: Kenny Rothman on 10-20-2022 Monocytes/100 WBC (Bld) 7.1 % . [facility] Neutrophils Auto (Bld) [#/Vo l]Ordered By: Kenny Rothman on 10-20-2022 Neutrophils (Bld) [#/Vol] 4.8 10*3/uL 1.8-7.7 [facility] Neutrophils/100 WBC Auto (Bl d)Ordered By: Kenny Rothman on 10-20-2022 Neutrophils/100 WBC (Bld) 55.0 % . [facility] No Panel InformationOrdered By: Kenny Rothman on 10-20-2022 Pharmacy Creatinine Clearance (Chem 144.98 [facility] Nucleated erythrocytes [Pres ence] in Blood by Automated countOrdered By: Kenny Rothman on 10-20-2022 Nucleated RBC Auto Ql (Bld) 0.1 /100{WBC} 0-0.5 [facility] Platelet mean volume Auto (B ld) [Entitic vol]Ordered By: Kenny Rothman on 10-20-2022 Platelet mean volume (Bld) [Entitic vol] 7.2 fL 6.3-10.7 [facility] Platelets Auto (Bld) [#/Vol] Ordered By: Kenny Rothman on 10-20-2022 Platelets (Bld) [#/Vol] 247 10*3/uL 150-450 [facility] Potassium [Moles/volume] in Serum or PlasmaOrdered By: Kenny Rothman on 10-20-2022 Potassium [Moles/Vol] 3.4 mmol/L 3.5-5.1 [facility] Protein [Mass/volume] in Ser um or PlasmaOrdered By: Kenny Rothman on 10-20-2022 Protein [Mass/Vol] 7.3 g/dL 6.4-8.9 [facility] RBC Auto (Bld) [#/Vol]Ordere d By: Kenny Rothman on 10-20-2022 RBC (Bld) [#/Vol] 4.40 10*6/uL 3.60-5.00 [facility] Serum or plasma albumin/glob ulin mass ratioOrdered By: Kenny Rothman on 10-20-2022 Albumin/Globulin [Mass ratio] 1.3 {ratio} [facility] Serum or plasma anion gap de terminationOrdered By: Kenny Rothman on 10-20-2022 Anion gap [Moles/Vol] 10.2 mmol/L 6.0-15.0 [facility] Serum or plasma non-glucuron idated bilirubin measurement (mass/volume)Ordered By: Kenny Rothman on 10-20-2022 Bilirubin.indirect [Mass/Vol] 0.2 mg/dL [facility] Sodium [Moles/volume] in Ser um or PlasmaOrdered By: Kenny Rothman on 10-20-2022 Sodium [Moles/Vol] 138 mmol/L 136-145 [facility] Urea nitrogen [Mass/volume] in Serum or PlasmaOrdered By: Kenny Rothman on 10-20-2022 Urea nitrogen [Mass/Vol] 11 mg/dL 7-25 [facility] WBC Auto (Bld) [#/Vol]Ordere d By: Kenny Rothman on 10-20-2022 WBC (Bld) [#/Vol] 8.8 10*3/uL 3.8-11.6 [facility] Automated erythrocytes count in urine sediment (number/area)Ordered By: PROVIDER TEMP on 10-19-2022 RBC Auto (Urine sed) [#/Area] Innumerable [HPF] 0-4 [facility] Automated leukocytes count i n urine sediment (number/area)Ordered By: PROVIDER TEMP on 10-19-2022 WBC Auto (Urine sed) [#/Area] 5-9 [HPF] 0-4 [facility] Automated urine hyaline cast s count (number/volume)Ordered By: PROVIDER TEMP on 10-19-2022 Hyaline casts Auto (U) [#/Vol] None seen [LPF] 0-1 [facility] Automated urine sediment allison cium oxalate crystal count by microscopy (number/high powOrdered By: PROVIDER TEMP on 10-19-2022 Calcium oxalate crystals LM.HPF (Urine sed) [#/Area] 1+ [HPF] [facility] Bilirubin Test strip Ql (U)O rdered By: PROVIDER TEMP on 10-19-2022 Bilirubin Ql (U) Negative Negative [facility] Casts typing in urine sedime nt by light microscopyOrdered By: PROVIDER TEMP on 10-19-2022 Casts LM Nom (Urine sed) None seen [LPF] None Seen [facility] Color Auto (U)Ordered By: KARIS EL TEMEb on 10-19-2022 Color (U) [place] Yellow [facility] HCG ( test) IA.rapi d Ql (U)Ordered By: Kenny Rothman on 10-19-2022 HCG ( test) Ql (U) Negative [facility] Ketones Auto test strip (U) [Mass/Vol]Ordered By: PROVIDER TEMP on 10-19-2022 Ketones (U) [Mass/Vol] Negative Negative [facility] Nitrite Test strip Ql (U)Ord ered By: PROVIDER TEMP on 10-19-2022 Nitrite Ql (U) Negative Negative [facility] Operative Reporton Operative Report [id number]#1.00 CD:127 Normal [facility] Protein Auto test strip (U) [Mass/Vol]Ordered By: PROVIDER TEMP on 10-19-2022 Protein (U) [Mass/Vol] 100 mg/dL Negative [facility] Specific gravity Auto test s trip (U) [Rel density]Ordered By: PROVIDER TEMP on 10-19-2022 Specific gravity (U) [Rel density] 1.022 1.001-1.030 [facility] Squamous epithelial cells de tection in urine sediment by light microscopyOrdered By: PROVIDER TEMP on 10-19-2022 Epithelial cells.squamous LM Ql (Urine sed) 20-30 [HPF] 0-2 [facility] Urine bacteria detection by automated methodOrdered By: PROVIDER TEMP on 10-19-2022 Bacteria Auto Ql (U) None seen None Seen [facility] Urine clarity by refractomet ry automatedOrdered By: PROVIDER TEMP on 10-19-2022 Clarity Refractometry automated (U) Turbid Clear [facility] Urine culture routineOrdered By: PROVIDER TEMP on 10-19-2022 Bacteria identified Cx Nom (U) 2 Days [facility] Urine glucose measurement by automated test strip (mass/volume)Ordered By: PROVIDER TEMP on 10-19-2022 Glucose Auto test strip (U) [Mass/Vol] Normal mg/dL Normal [facility] Urine hemoglobin detection b y automated test stripOrdered By: PROVIDER TEMP on 10-19-2022 Hemoglobin Auto test strip Ql (U) 3+ Negative [facility] Urine leukocyte esterase det ection by automated test stripOrdered By: PROVIDER TEM on 10-19-2022 Leukocyte esterase Auto test strip Ql (U) 2+ Negative [facility] Urobilinogen Auto test strip (U) [Mass/Vol]Ordered By: PROVIDER TEMP on 10-19-2022 Urobilinogen (U) [Mass/Vol] Normal mg/dL Normal [facility] Yeast detection in urine sed iment by light microscopyOrdered By: PROVIDER TEMP on 10-19-2022 Yeast LM Ql (Urine sed) 1+ [HPF] None Seen [facility] pH Auto test strip (U)Ordere d By: PROVIDER TEM on 10-19-2022 pH (U) 5.5 [pH] 5.0-9.0 [facility] POINT OF CARE GLUCOSEon 10-03 Glucose [Mass/Vol] 92 mg/dL Normal 74-106 [facility] Comment on above: Performed By: #### P OCGLUC ####[facility] [address] [id number]. Ab Fry XR KUB 1 VIEWon 10-18-2022 XR KUB 1 VIEW EXAMINATION: XR KUB 1 VIEW HISTORY: Urolithiasis COMPARISON: No relevant comparison available. FINDINGS: KIDNEY/URETER - RIGHT: No visible renal or ureteral calcifications. KIDNEY/URETER - LEFT: 2 adjacent thin linear calcifications overlying the left kidney, largest is 10 mm in length. PELVIS: No visible ureteral stones. Small right pelvic calcification favors a phlebolith. BOWEL: No abnormal dilation or deviation. BONES: No acute abnormality. OTHER: Catheter overlying left abdomen is likely overlying external artifact. IMPRESSION: 1. Left nephrolithiasis. No comparison studies. Electronically authenticated by: FABY TIWARI Date: 2022-10-18 07:18 Normal [facility] Lab Reportson 10-15-2022 Lab Reports [id number]#1.0 0CD:127 Normal [facility] CBC AUTO DIFFon 10-08-2022 BASO # 0.0 103/ul Normal 0.0-0.1 [facility] Comment on above: Performed By: #### C BC #### [facility] [address] [place] [address] Dr. Ab Fry Basophils/100 WBC (Bld) 0.5 % Normal 0.2-2.0 [facility] Comment on above: Performed By: #### C BC #### [facility] [address] [address] [address] Ab Fry EO # 0.2 103/ul Normal 0.0-0.7 [facility] Comment on above: Performed By: #### C BC #### [facility] [address] [address] [address] Ab Fry Eosinophils/100 WBC (Bld) 3.5 % Normal 0.9-7.0 [facility] Comment on above: Performed By: #### C BC #### [facility] [address] [address] [address] Ab Fry Erythrocyte distribution width (RBC) [Ratio] 13.1 % Normal 11.0-15.0 [facility] Comment on above: Performed By: #### C BC #### [facility] [address] [place] [address] Dr. Ab Fry Hematocrit (Bld) [Volume fraction] 34.7 % Critically low 36.0-48.0 [facility] Comment on above: Performed By: #### C BC #### [facility] [address] [address] [address] Ab Fry Hemoglobin (Bld) [Mass/Vol] 11.7 g/dL Critically low 12.0-16.0 [facility] Comment on above: Performed By: #### C BC #### [facility] [address] [address] [address] Ab Fry IG # 0.10 10e3/ul Critically high 0.00-0.03 [facility] Comment on above: Performed By: #### C BC #### [facility] [address] [address] [address] Ab Fry IG % 1.6 % Critically high 0.0-0.5 [facility] Comment on above: Performed By: #### C BC #### [facility] [address] [place] [address] Dr. Ab Fry LYMPH # 1.5 103/ul Normal 1.2-3.8 [facility] Comment on above: Performed By: #### C BC #### [facility] [address] [place] [address] Dr. Ab Fry Lymphocytes/100 WBC (Bld) 23.6 % Normal 20.5-60.0 [facility] Comment on above: Performed By: #### C BC #### [facility] [address] [place] [address] Dr. Ab Fry MANUAL DIFF REQ NO Normal [facility] Comment on above: Performed By: #### C BC #### [facility] [address] [place] [address] Dr. Ab Fry MCH (RBC) [Entitic mass] 27.5 pg Normal 26.7-34.0 [facility] Comment on above: Performed By: #### C BC #### [facility] [address] [place] [address] Dr. Ab rFy MCHC (RBC) [Mass/Vol] 33.7 g/dL Normal 29.9-35.2 [facility] Comment on above: Performed By: #### C BC #### [facility] [address] [id number] Ab Fry MCV (RBC) [Entitic vol] 81.6 fL Normal 81.0-99.0 [facility] Comment on above: Performed By: #### C BC #### [facility] [address] [address] [address] Ab Fry MONO # 0.8 103/ul Normal 0.3-0.8 [facility] Comment on above: Performed By: #### C BC #### [facility] [address] [place] [address] Dr. Ab Fry Monocytes/100 WBC (Bld) 12.2 % Critically high 1.7-12.0 [facility] Comment on above: Performed By: #### C BC #### [facility] [address] [place] [address] Dr. Ab Fry NEUT # 3.7 103/ul Normal 1.4-6.5 [facility] Comment on above: Performed By: #### C BC #### [facility] [address] [place] [address] Dr. Ab Fry Neutrophils/100 WBC (Bld) 58.6 % Normal 43.0-75.0 [facility] Comment on above: Performed By: #### C BC #### [facility] [address] [place] [address] Dr. Ab Fry Platelet mean volume (Bld) [Entitic vol] 8.8 fL Critically low 9.5-13.5 [facility] Comment on above: Performed By: #### C BC #### [facility] [address] [place] [address] Dr. Ab Fry PLT 233 103/ul Normal 150-450 [facility] Comment on above: Performed By: #### C BC #### [facility] [address] [place] [address] Dr. Ab Fry RBC 4.25 106/ul Normal 4.20-5.40 [facility] Comment on above: Performed By: #### C BC #### [facility] [address] [place] [address] Dr. Ab Fry WBC 6.2 103/ul Normal 4.0-11.0 [facility] Comment on above: Performed By: #### C BC #### [facility] [address] [place] [address] Dr. Ab Fry PROF CHEM 8 (BAS METB)on Anion gap [Moles/Vol] 9.7 mmol/L Normal [facility] Comment on above: Performed By: #### B MP #### [facility] [address] [place] [address] Dr. Ab Fry Calcium [Mass/Vol] 8.8 mg/dL Normal 8.5-10.1 [facility] Comment on above: Performed By: #### B MP #### [facility] [address] [place] [address] Dr. Ab Fry Chloride [Moles/Vol] 107 mmol/L Normal 98-107 [facility] Comment on above: Performed By: #### B MP #### [facility] [address] [place] [address] Dr. Ab Fry CO2 [Moles/Vol] 29.9 mmol/L Normal 21.0-32.0 [facility] Comment on above: Performed By: #### B MP #### [facility] [address] [place] [address] Dr. Ab Fry Creatinine [Mass/Vol] 0.43 mg/dL Critically low 0.55-1.02 [facility] Comment on above: Performed By: #### B MP #### [facility] [address] [place] [address] Dr. Ab Fry EGFR-AF CITIZEN OF [place] >60 Normal >=60 [facility] Comment on above: Performed By: #### B MP #### [facility] [address] [place] [address] Dr. Ab Fry EGFR-NON AF CITIZEN OF [place] >60 Normal >=60 [facility] Comment on above: Performed By: #### B MP #### [facility] [address] [place] [address] Dr. Ab Fry Glucose [Mass/Vol] 102 mg/dL Normal 74-106 [facility] Comment on above: Performed By: #### B MP #### [facility] [address] [place] [address] Dr. Ab Fry Potassium [Moles/Vol] 3.6 mmol/L Normal 3.5-5.1 [facility] Comment on above: Performed By: #### B MP #### [facility] [address] [place] [address] Dr. Ab Fry Sodium [Moles/Vol] 143 mmol/L Normal 136-145 [facility] Comment on above: Performed By: #### B MP #### [facility] [address] [place] [address] Dr. Ab Fry Urea nitrogen [Mass/Vol] 10.0 mg/dL Normal 7.0-18.0 [facility] Comment on above: Performed By: #### B MP #### [facility] [address] [place] [address] Dr. Ab Fry Urea nitrogen/Creatinine [Mass ratio] 23.3 mg/mg Normal [facility] Comment on above: Performed By: #### B MP #### [facility] [address] [place] [address] Dr. Ab Fry PROTIMEon 10-08-2022 INR Coag (PPP) [Relative time] 0.94 {INR} Normal [facility] Comment on above: Performed By: #### P TT, PT #### [facility] [address] [place] [address] Dr. Ab Fry INR GUIDELINES SEE BELOW Normal [facility] Comment on above: Result Comment: ALEXIS RED INR: 2.0 - 3.0 CONDITIONS NOT LISTED BELOW 2.5 - 3.5 FOR PROSTHETIC HEART VALVE REPLACEMENT 2.5 - 3.5 RECURRENT THROMBOSIS Performed By: #### P TT, PT #### [facility] [address] [place] [address] Dr. Ab Fry PT Coag (PPP) [Time] 10.0 s Normal 9.0-11.6 [facility] Comment on above: Performed By: #### P TT, PT #### [facility] [address] [place], [place] [address] Dr. Ab Fry PTTon 10-08-2022 aPTT Coag (Bld) [Time] 33.7 s Normal 22.3-36.2 [facility] Comment on above: Performed By: #### P TT, PT ####[facility] [address] [place], [place] [address]CcDr. Ab Fry RAD - MISCon 10-04-2022 RAD - MISC [id number]#1.0 0CD:127 Normal [facility] RAD - Ultrasound Reporton RAD - Ultrasound Report [id number] 0CD:127 Normal [facility] 23-serotype Streptococcus pn eumoniae antibody panelOrdered By: Jorgito Sanchez on 10-03-2022 S. pneumoniae 23 types IgG panel (S) [Mass/Vol] 4.5 ug/mL >1.3 [facility] IgA [Mass/volume] in Serum o r PlasmaOrdered By: Jorgito Sanchez on 10-03-2022 IgA [Mass/Vol] 366 mg/dL 87-352 [facility] IgG [Mass/volume] in Serum o r PlasmaOrdered By: Jorgito Sanchez on 10-03-2022 IgG [Mass/Vol] 1369 mg/dL [phone] [facility] IgM [Mass/volume] in Serum o r PlasmaOrdered By: Jorgito Sanchez on 10-03-2022 IgM [Mass/Vol] 265 mg/dL 26-217 [facility] Comment on above: Performed at: [address] [id number] Director: Alireza Kaufman PhD, Phone: [phone] No Panel InformationOrdered By: Jorgito Sanchez on 10-03-2022 Pneumococcal Type 1 Antibody 0.8 ug/mL >1.3 [facility] Pneumococcal Type 12F Antibody 1.1 ug/mL >1.3 [facility] Pneumococcal Type 14 Antibody 14.7 ug/mL >1.3 [facility] Pneumococcal Type 15B Antibody 1.3 ug/mL >1.3 [facility] Pneumococcal Type 17F Antibody 0.4 ug/mL >1.3 [facility] Pneumococcal Type 18C Antibody 0.1 ug/mL >1.3 [facility] Pneumococcal Type 19A Antibody 1.6 ug/mL >1.3 [facility] Pneumococcal Type 19F Antibody 11.3 ug/mL >1.3 [facility] Pneumococcal Type 2 Antibody >20.7 ug/mL >1.3 [facility] Pneumococcal Type 20 Antibody >38.2 ug/mL >1.3 [facility] Pneumococcal Type 22F Antibody >26.0 ug/mL >1.3 [facility] Pneumococcal Type 23F Antibody 1.1 ug/mL >1.3 [facility] Pneumococcal Type 3 Antibody 0.9 ug/mL >1.3 [facility] Pneumococcal Type 4 Antibody 0.2 ug/mL >1.3 [facility] Pneumococcal Type 5 Antibody 11.6 ug/mL >1.3 [facility] Pneumococcal Type 6B Antibody 7.2 ug/mL >1.3 [facility] Pneumococcal Type 7F Antibody 6.0 ug/mL >1.3 [facility] Pneumococcal Type 8 Antibody 8.8 ug/mL >1.3 [facility] Pneumococcal Type 9N Antibody 1.1 ug/mL >1.3 [facility] Pneumococcal Type 9V Antibody 0.5 ug/mL >1.3 [facility] S. pneumoniae Type 34 (10A) IgG Ab 0.3 ug/mL >1.3 [facility] S. pneumoniae Type 70 (33F) IgG Ab >10.1 ug/mL >1.3 [facility] Comment on above: *This test was devel oped and its performancecharacteristics determined by [employer]. It has notbeen cleared or approved by the U.S. Food and DrugAdministration.Performed at: [employer] [facility] [id number] [address] [id number] Director: TERESA Kelly PhD, Phone: [phone] Consent for Procedure/Surger yon 10-02-2022 Consent for Procedure/Surgery [id number]#1.0 0CD:127 Normal [facility] Pre-Certification Formon Pre-Certification Form [id number] .00CD:127 [facility] RAD - MISCon 09-19-2022 RAD - MISC [id number]#1.0 0CD:127 [facility] Operative Reporton Operative Report [id number]#1.0 0CD:127 [facility] ECG 12-Leadon 09-07-2022 ECG 12-Lead [id number]#1.0 0CD:127 [facility] Lab Reportson 09-07-2022 Lab Reports [id number]#1.0 0CD:127 [facility] POINT OF CARE GLUCOSEon Glucose [Mass/Vol] 92 mg/dL Normal 74-106 [facility] Comment on above: Performed By: #### P OCGLUC #### [facility] [address] [place] [address] Dr. Ab Fry XR lumbar spine AP/LAT/FLX/E [employer] 09-05-2022 XR lumbar spine AP/LAT/FLX/EXT [facility] [employer] Other XR lumbar spine AP/LAT/FLX/EXT [facility] [employer] Other XR lumbar spine AP/LAT/FLX/EXT [address] [place] [address] [employer] Other XR lumbar spine AP/LAT/FLX/EXT [address] [employer] Other XR lumbar spine AP/LAT/FLX/EXT XRay Report [email or web address] Other XR lumbar spine AP/LAT/FLX/EXT Signed [email or web address] Other XR lumbar spine AP/LAT/FLX/EXT Patient: Lisa Fernando MR#: [id number] [email or web address] Other XR lumbar spine AP/LAT/FLX/EXT 287 [email or web address] Other XR lumbar spine AP/LAT/FLX/EXT : 1975 Acct:[id number] [email or web address] Other XR lumbar spine AP/LAT/FLX/EXT Age/Sex: 47 / F ADM Date: 09/05/22 [email or web address] Other XR lumbar spine AP/LAT/FLX/EXT Loc: [facility] [place] Room: Type: REG I [email or web address] Other XR lumbar spine AP/LAT/FLX/EXT Attending Dr: Kenny Villarreal MD [email or web address] Other XR lumbar spine AP/LAT/FLX/EXT Copies to: Kenny Villarreal MD [email or web address] Other XR lumbar spine AP/LAT/FLX/EXT Ordering Provider: Kenny Villarreal MD [email or web address] Other XR lumbar spine AP/LAT/FLX/EXT Date of Service: 09/05/22 [email or web address] Other XR lumbar spine AP/LAT/FLX/EXT XR/XR lumbar spine AP/LAT/FLX/EXT: Osteoarthritis of lumbosacral spine [email or web address] Other XR lumbar spine AP/LAT/FLX/EXT without myelopathy [email or web address] Other XR lumbar spine AP/LAT/FLX/EXT XR lumbar spine AP/LAT/FLX/EXT 09/05/2022 11:28 AM [email or web address] Other XR lumbar spine AP/LAT/FLX/EXT SIGNS AND SYMPTOMS: Persistent low back pain [email or web address] Other XR lumbar spine AP/LAT/FLX/EXT PROTOCOLS: Frontal, lateral, and flexion-extension views of the lumbar spine [email or web address] Other XR lumbar spine AP/LAT/FLX/EXT COMPARISON: 08/01/2021 [employer] [facility] [employer] Other XR lumbar spine AP/LAT/FLX/EXT FINDINGS: [email or web address] Other XR lumbar spine AP/LAT/FLX/EXT The alignment, development and bony structures are normal. There is no fracture or destructive [email or web address] Other XR lumbar spine AP/LAT/FLX/EXT lesion. [email or web address] Other XR lumbar spine AP/LAT/FLX/EXT There is mild disc height loss at L5-S1. Facet hypertrophy is present at L4-5 and L5-S1. There is no [email or web address] Other XR lumbar spine AP/LAT/FLX/EXT pathologic movement on flexion or extension. [email or web address] Other XR lumbar spine AP/LAT/FLX/EXT The sacrum and sacroiliac joints are normal. [email or web address] Other XR lumbar spine AP/LAT/FLX/EXT XR/XR lumbar spine AP/LAT/FLX/EXT [email or web address] Other XR lumbar spine AP/LAT/FLX/EXT IMPRESSION: [email or web address] Other XR lumbar spine AP/LAT/FLX/EXT No fracture or subluxation. [email or web address] Other XR lumbar spine AP/LAT/FLX/EXT There is mild disc height loss at L5-S1. Facet hypertrophy is present at L4-5 and L5-S1. [email or web address] Other XR lumbar spine AP/LAT/FLX/EXT There is no pathologic movement on flexion or extension. [email or web address] Other XR lumbar spine AP/LAT/FLX/EXT Impression dictated by: Mode Handy M.D.09/05/2022 2:37 PM [email or web address] Other XR lumbar spine AP/LAT/FLX/EXT Dictation Location: [place] [address] [email or web address] Other XR lumbar spine AP/LAT/FLX/EXT Transcribed By: HARLAN 09/05/22 [facility] [email or web address] Other XR lumbar spine AP/LAT/FLX/EXT Dictated By: Mode Handy II, MD 09/05/22 [facility] [employer] Other XR lumbar spine AP/LAT/FLX/EXT Signed By: [employer] Other XR lumbar spine AP/LAT/FLX/EXT 09/05/22 [facility] [employer] Other CBC AUTO DIFFon 09-03-2022 BASO # 0.0 103/ul Normal 0.0-0.1 [facility] Comment on above: Performed By: #### C BC #### [facility] [address] [place] [address] Dr. Ab Fry Basophils/100 WBC (Bld) 0.5 % Normal 0.2-2.0 [facility] Comment on above: Performed By: #### C BC #### [facility] [address] [place] [address] Dr. Ab Fry EO # 0.2 103/ul Normal 0.0-0.7 [facility] Comment on above: Performed By: #### C BC #### [facility] [address] [place] [address] Dr. Ab Fry Eosinophils/100 WBC (Bld) 3.6 % Normal 0.9-7.0 [facility] Comment on above: Performed By: #### C BC #### [facility] [address] [place] [address] Dr. Ab Fry Erythrocyte distribution width (RBC) [Ratio] 12.9 % Normal 11.0-15.0 [facility] Comment on above: Performed By: #### C BC #### [facility] [address] [place] [address] Dr. Ab Fry Hematocrit (Bld) [Volume fraction] 35.4 % Critically low 36.0-48.0 [facility] Comment on above: Performed By: #### C BC #### [facility] [address] [place] [address] Dr. Ab Fry Hemoglobin (Bld) [Mass/Vol] 12.2 g/dL Normal 12.0-16.0 [facility] Comment on above: Performed By: #### C BC #### [facility] [address] [place] [address] Dr. Ab Fry IG # 0.03 10e3/ul Normal 0.00-0.03 [facility] Comment on above: Performed By: #### C BC #### [facility] [address] [place] [address] Dr. Ab Fry IG % 0.5 % Normal 0.0-0.5 [facility] Comment on above: Performed By: #### C BC #### [facility] [address] [place] [address] Dr. Ab Fry LYMPH # 1.8 103/ul Normal 1.2-3.8 [facility] Comment on above: Performed By: #### C BC #### [facility] [address] [place] [address] Dr. Ab Fry Lymphocytes/100 WBC (Bld) 31.6 % Normal 20.5-60.0 [facility] Comment on above: Performed By: #### C BC #### [facility] [address] [place] [address] Dr. Ab Fry MANUAL DIFF REQ NO Normal [facility] Comment on above: Performed By: #### C BC #### [facility] [address] [place] [address] Dr. Ab Fry MCH (RBC) [Entitic mass] 27.5 pg Normal 26.7-34.0 [facility] Comment on above: Performed By: #### C BC #### [facility] [address] [address] [address] Ab Fry MCHC (RBC) [Mass/Vol] 34.5 g/dL Normal 29.9-35.2 [facility] Comment on above: Performed By: #### C BC #### [facility] [address] [place] [address] Dr. Ab Fry MCV (RBC) [Entitic vol] 79.7 fL Critically low 81.0-99.0 [facility] Comment on above: Performed By: #### C BC #### [facility] [address] [place] [address] Dr. Ab Fry MONO # 0.8 103/ul Normal 0.3-0.8 [facility] Comment on above: Performed By: #### C BC #### [facility] [address] [place] [address] Dr. Ab Fry Monocytes/100 WBC (Bld) 14.6 % Critically high 1.7-12.0 [facility] Comment on above: Performed By: #### C BC #### [facility] [address] [place] [address] Dr. Ab Fry NEUT # 2.7 103/ul Normal 1.4-6.5 [facility] Comment on above: Performed By: #### C BC #### [facility] [address] [place] [address] Dr. Ab Fry Neutrophils/100 WBC (Bld) 49.2 % Normal 43.0-75.0 [facility] Comment on above: Performed By: #### C BC #### [facility] [address] [place] [address] Dr. Ab Fry Platelet mean volume (Bld) [Entitic vol] 8.8 fL Critically low 9.5-13.5 [facility] Comment on above: Performed By: #### C BC #### [facility] [address] [place] [address] Dr. Ab Fry PLT 211 103/ul Normal 150-450 [facility] Comment on above: Performed By: #### C BC #### [facility] [address] [place] [address] Dr. Ab Fry RBC 4.44 106/ul Normal 4.20-5.40 [facility] Comment on above: Performed By: #### C BC #### [facility] [address] [place] [address] Dr. Ab Fry WBC 5.5 103/ul Normal 4.0-11.0 [facility] Comment on above: Performed By: #### C BC #### [facility] [address] [place] [address] Dr. Ab Fry PROF CHEM 8 (BAS METB)on Anion gap [Moles/Vol] 9.3 mmol/L Normal [facility] Comment on above: Performed By: #### B MP #### [facility] [address] [place] [address] Dr. Ab Fry Calcium [Mass/Vol] 8.8 mg/dL Normal 8.5-10.1 [facility] Comment on above: Performed By: #### B MP #### [facility] [address] [place] [address] Dr. Ab Fry Chloride [Moles/Vol] 105 mmol/L Normal 98-107 [facility] Comment on above: Performed By: #### B MP #### [facility] [address] [place] [address] Dr. Ab Fry CO2 [Moles/Vol] 31.1 mmol/L Normal 21.0-32.0 [facility] Comment on above: Performed By: #### B MP #### [facility] [address] [place] [address] Dr. Ab Fry Creatinine [Mass/Vol] 0.54 mg/dL Critically low 0.55-1.02 [facility] Comment on above: Performed By: #### B MP #### [facility] [address] [place] [address] Dr. Ab Fry EGFR-AF CITIZEN OF [place] >60 Normal >=60 [facility] Comment on above: Performed By: #### B MP #### [facility] [address] [address] [address] Ab Fry EGFR-NON AF CITIZEN OF [place] >60 Normal >=60 [facility] Comment on above: Performed By: #### B MP #### [facility] [address] [address] [address] Ab Fry Glucose [Mass/Vol] 115 mg/dL Critically high 74-106 [facility] Comment on above: Performed By: #### B MP #### [facility] [address] [address] [address] Ab Fry Potassium [Moles/Vol] 3.4 mmol/L Critically low 3.5-5.1 [facility] Comment on above: Performed By: #### B MP #### [facility] [address] [address] [address] Ab Fry Sodium [Moles/Vol] 142 mmol/L Normal 136-145 [facility] Comment on above: Performed By: #### B MP #### [facility] [address] [address] [address] Ab Fry Urea nitrogen [Mass/Vol] 12.0 mg/dL Normal 7.0-18.0 [facility] Comment on above: Performed By: #### B MP #### [facility] [address] [address] [address] Ab Fry Urea nitrogen/Creatinine [Mass ratio] 22.2 mg/mg Normal [facility] Comment on above: Performed By: #### B MP #### [facility] [address] [address] [address] Ab Fry Urinalysis - AUTOMATEDon Appearance (U) clear [employer] Other Bilirubin Ql (U) Negative [employer] Other Color (U) dark yellow [employer] Other Glucose Ql (U) Negative [employer] Other Hemoglobin Ql (U) Negative [employer] Other Ketones Ql (U) Negative [employer] Other Leukocyte esterase Test strip Ql (U) Negative [employer] Other Nitrite Ql (U) Negative [employer] Other pH (U) 5.0 [pH] [employer] Other Protein Ql (U) Negative [employer] Other Specific gravity (U) [Rel density] 1.030 [employer] Other Urobilinogen (U) [Mass/Vol] 0.2 mg/dL [employer] Other Urinalysis - AUTOMATED [employer] Other Consent for Procedure/Surger yon 08-22-2022 Consent for Procedure/Surgery [id number] 0CD:127 [facility] Lab Reportson 08-22-2022 Lab Reports [id number] 0CD:127 [facility] 23-serotype Streptococcus pn eumoniae antibody panelOrdered By: Jorgito Sanchez on 08-09-2022 S. pneumoniae 23 types IgG panel (S) [Mass/Vol] 2.6 ug/mL >1.3 [facility] IgA [Mass/volume] in Serum o r PlasmaOrdered By: Jorgito Sanchez on 08-09-2022 IgA [Mass/Vol] 336 mg/dL 87-352 [facility] IgG [Mass/volume] in Serum o r PlasmaOrdered By: Jorgito Sanchez on 08-09-2022 IgG [Mass/Vol] 1328 mg/dL 586-1602 [facility] IgM [Mass/volume] in Serum o r PlasmaOrdered By: Jorgito Sanchez on 08-09-2022 IgM [Mass/Vol] 260 mg/dL 26-217 [facility] Comment on above: Performed at: - [id number] [place], [place] [id number] Director: Alireza Kaufman PhD, Phone: [phone] Immunoglobulins A/G/M, Qn, S litzy 08-09-2022 Immunoglobulins A/G/M, Qn, Ser 1328 mg/dL 586-1602 mg/dL [employer] [facility] [employer] Other Immunoglobulins A/G/M, Qn, Ser 336 mg/dL 87-352 mg/dL [employer] Other Immunoglobulins A/G/M, Qn, Ser 260 mg/dL High 26-217 mg/dL [facility] [employer] Other No Panel InformationOrdered By: Jorgito Sanchez on 08-09-2022 Pneumococcal Type 1 Antibody 0.3 ug/mL >1.3 [facility] Pneumococcal Type 12F Antibody 0.1 ug/mL >1.3 [facility] Pneumococcal Type 14 Antibody 11.9 ug/mL >1.3 [facility] Pneumococcal Type 15B Antibody 0.7 ug/mL >1.3 [facility] Pneumococcal Type 17F Antibody 0.2 ug/mL >1.3 [facility] Pneumococcal Type 18C Antibody <0.1 ug/mL >1.3 [facility] Pneumococcal Type 19A Antibody 1.2 ug/mL >1.3 [facility] Pneumococcal Type 19F Antibody 3.6 ug/mL >1.3 [facility] Pneumococcal Type 2 Antibody 6.1 ug/mL >1.3 [facility] Pneumococcal Type 20 Antibody 11.9 ug/mL >1.3 [facility] Pneumococcal Type 22F Antibody 3.1 ug/mL >1.3 [facility] Pneumococcal Type 23F Antibody 1.1 ug/mL >1.3 [facility] Pneumococcal Type 3 Antibody 1.0 ug/mL >1.3 [facility] Pneumococcal Type 4 Antibody 0.2 ug/mL >1.3 [facility] Pneumococcal Type 5 Antibody 0.9 ug/mL >1.3 [facility] Pneumococcal Type 6B Antibody 0.1 ug/mL >1.3 [facility] Pneumococcal Type 7F Antibody 1.2 ug/mL >1.3 [facility] Pneumococcal Type 8 Antibody 2.9 ug/mL >1.3 [facility] Pneumococcal Type 9N Antibody 0.7 ug/mL >1.3 [facility] Pneumococcal Type 9V Antibody 0.1 ug/mL >1.3 [facility] S. pneumoniae Type 34 (10A) IgG Ab <0.1 ug/mL >1.3 [facility] S. pneumoniae Type 70 (33F) IgG Ab 5.8 ug/mL >1.3 [facility] Comment on above: *This test was devel oped and its performancecharacteristics determined by [employer]. It has notbeen cleared or approved by the U.S. Food and DrugAdministration.Performed at: [employer] [id number] [address] [id number] Director: TERESA Kelly PhD, Phone: [phone] XR chest 2V*on 07-31-2022 SARS-CoV-2 (COVID-19) RNA DEBBIE+probe Ql (Unsp spec) CLINICAL HISTORY: Cough, shortness of breath, chest pain, rhinorrhea and hemoptysis. COVID + one [facility] [employer] Other XR chest 2V* [facility] [employer] Other XR chest 2V* [facility] [employer] Other XR chest 2V* [address] [facility] [employer] Other XR chest 2V* [place] [address] [facility] [employer] Other XR chest 2V* XRay Report [email or web address] Other XR chest 2V* Signed [employer] Other XR chest 2V* Patient: Tim Fernando MR#: [id number] [facility] [employer] Other XR chest 2V* 287 [employer] Other XR chest 2V* : 1975 Acct:[id number] [employer] Other XR chest 2V* Age/Sex: 47 / F ADM Date: 07/31/22 [employer] Other XR chest 2V* Loc: XD Room: Type: [facility] [employer] Other XR chest 2V* Attending Dr: Felecia Sanchez DO [employer] Other XR chest 2V* Copies to: Jorgito Sanchez DO [employer] Other XR chest 2V* Ordering Provider: Jorgito Sanchez DO [employer] Other XR chest 2V* Date of Service: 07/31/22 [employer] Other XR chest 2V* XR/XR chest 2V*: Acute cough [employer] Other XR chest 2V* PA AND LATERAL CHEST: N [employer] Other XR chest 2V* week ago. [employer] Other XR chest 2V* COMPARISON: 07/09/2022 N [employer] Other XR chest 2V* There is no focal parenchymal consolidation, effusion or pneumothorax. The cardiac, hilar and [employer] Other XR chest 2V* mediastinal silhouettes are within normal limits. There is no vascular congestion. The [employer] Other XR chest 2V* visualized bony thor ax is intact. There is levoscoliotic curvature and endplate spurring. [employer] Other XR chest 2V* XR/XR chest 2V* [employer] Other XR chest 2V* IMPRESSION: [employer] Other XR chest 2V* NO ACUTE CARDIOPULMONARY ABNORMALITY. [employer] Other XR chest 2V* Impression dictated by: Liz Rubi M.D.07/31/2022 6:22 PM [employer] Other XR chest 2V* Dictation Location: [place] [address] [employer] Other XR chest 2V* Transcribed By: PWS 07/31/22 [facility] [employer] Other XR chest 2V* Dictated By: Liz Rubi MD 07/31/22 [facility] [employer] Other XR chest 2V* Signed By: [employer] Other XR chest 2V* 07/31/22 [facility] [employer] [facility] [employer] Other COVID CepheidOrdered By: Felice Reed on 07-22-2022 SARS-CoV-2 (COVID-19) Ab IA Ql Positive Negative [facility] Comment on above: This is a duplicate [employer] CoV-2/Flu/RSV Plus RNA by RT-PCR result to be used for statistical tracking purpose only. SARS-CoV-2 (COVID-19) RNA DEBBIE+probe Ql (Unsp spec) [facility] Urine culture routineOrdered By: Kelby Ma on 07-01-2022 Bacteria identified Cx Nom (U) 2 Days [facility] Albumin [Mass/volume] in Ser um or PlasmaOrdered By: Kelby Ma on 06-29-2022 Albumin [Mass/Vol] 3.3 g/dL 3.2-5.5 [facility] Automated erythrocytes count in urine sediment (number/area)Ordered By: Kelby Ma on 06-29-2022 RBC Auto (Urine sed) [#/Area] 5-9 [HPF] 0-4 [facility] Automated leukocytes count i n urine sediment (number/area)Ordered By: Kelby Ma on 06-29-2022 WBC Auto (Urine sed) [#/Area] 3-4 [HPF] 0-4 [facility] Automated urine hyaline cast s count (number/volume)Ordered By: Kelby Ma on 06-29-2022 Hyaline casts Auto (U) [#/Vol] None seen [LPF] 0-1 [facility] Basophils Auto (Bld) [#/Vol] Ordered By: Kelby Ma on 06-29-2022 Basophils (Bld) [#/Vol] 0.0 10*3/uL 0.0-0.2 [facility] Basophils/100 WBC Auto (Bld) Ordered By: Kelby Ma on 06-29-2022 Basophils/100 WBC (Bld) 0.3 % . [facility] Bilirubin Test strip Ql (U)O rdered By: Kelby Ma on 06-29-2022 Bilirubin Ql (U) Negative Negative [facility] COVID CepheidOrdered By: Cheryl Sol on 06-29-2022 SARS-CoV-2 (COVID-19) Ab IA Ql Negative Negative [facility] Comment on above: This is a duplicate [employer] CoV-2/Flu/RSV Plus RNA by RT-PCR result to be used for statistical tracking purpose only. SARS-CoV-2 (COVID-19) RNA DEBBIE+probe Ql (Unsp spec) [facility] SARS-CoV-2 (COVID-19) RNA DEBBIE+probe Ql (Unsp spec) [facility] Casts typing in urine sedime nt by light microscopyOrdered By: Kelby Ma on 06-29-2022 Casts LM Nom (Urine sed) None seen [LPF] None Seen [facility] Color Auto (U)Ordered By: Oneal Ma on 06-29-2022 Color (U) Dark yellow Yellow [facility] Creatinine and Glomerular fi ltration rate.predicted panel (S/P/Bld)Ordered By: Kelby Ma on 06-29-2022 Creatinine [Mass/Vol] 0.53 mg/dL 0.44-1.03 [facility] Eosinophils Auto (Bld) [#/Vo l]Ordered By: Kelby Ma on 06-29-2022 Eosinophils (Bld) [#/Vol] 0.0 10*3/uL 0.0-0.45 [facility] Eosinophils/100 WBC Auto (Bl d)Ordered By: Kelby Ma on 06-29-2022 Eosinophils/100 WBC (Bld) 0.2 % . [facility] Erythrocyte distribution wid th Auto (RBC) [Ratio]Ordered By: Kelby Ma on 06-29-2022 Erythrocyte distribution width (RBC) [Ratio] 13.4 % 11.9-15.3 [facility] Estimated glomerular filtrat ion rate (GFR) non- AmericanOrdered By: Kelby Ma on 06-29-2022 GFR/1.73 sq M.predicted among non-blacks MDRD (S/P/Bld) [Vol rate/Area] > 60 mL/Min [facility] Globulin Calc (S) [Mass/Vol] Ordered By: Kelby Ma on 06-29-2022 Globulin (S) [Mass/Vol] 3.3 g/dL [facility] Hematocrit Auto (Bld) [Volum e fraction]Ordered By: Kelby Ma on 06-29-2022 Hematocrit (Bld) [Volume fraction] 39.7 % 34.0-46.4 [facility] Hemoglobin [Mass/volume] in BloodOrdered By: Kelby Ma on 06-29-2022 Hemoglobin (Bld) [Mass/Vol] 13.2 g/dL 11.8-15.4 [facility] Ketones Auto test strip (U) [Mass/Vol]Ordered By: Kelby Ma on 06-29-2022 Ketones (U) [Mass/Vol] 1+ Negative [facility] Laboratory - Chemistry and C hemistry - challengeOrdered By: Kelby Ma on 06-29-2022 Lipase [Catalytic activity/Vol] 23.0 U/L 22-51 [facility] Laboratory - Hematology and Cell countsOrdered By: Kelby Ma on 06-29-2022 Nucleated RBC/100 WBC (Bld) [Ratio] 0.0 % 0-0.5 [facility] Leukocytes [#/volume] in Blo od by Automated countOrdered By: Kelby Ma on 06-29-2022 WBC (Bld) [#/Vol] 10.5 10*3/uL 4.5-11.0 [facility] Lymphocytes Auto (Bld) [#/Vo l]Ordered By: Kelby Ma on 06-29-2022 Lymphocytes (Bld) [#/Vol] 0.6 10*3/uL 1.00-4.8 [facility] Lymphocytes/100 WBC Auto (Bl d)Ordered By: Kelby Ma on 06-29-2022 Lymphocytes/100 WBC (Bld) 5.5 % . [facility] MCH Auto (RBC) [Entitic mass ]Ordered By: Kelby Ma on 06-29-2022 MCH (RBC) [Entitic mass] 27.1 pg 24.7-34.3 [facility] MCHC Auto (RBC) [Mass/Vol]Or dered By: Kelby Ma on 06-29-2022 MCHC (RBC) [Mass/Vol] 33.1 g/dL 32.0-35.0 [facility] MCV Auto (RBC) [Entitic vol] Ordered By: Kelby Ma on 06-29-2022 MCV (RBC) [Entitic vol] 81.7 fL 80-100 [facility] Monocytes Auto (Bld) [#/Vol] Ordered By: Kelby Ma on 06-29-2022 Monocytes (Bld) [#/Vol] 0.8 10*3/uL 0.0-0.8 [facility] Monocytes/100 WBC Auto (Bld) Ordered By: Kelby Ma on 06-29-2022 Monocytes/100 WBC (Bld) 7.8 % . [facility] Mucus LM Ql (Urine sed)Order ed By: Kelby Ma on 06-29-2022 Mucus Ql (Urine sed) 2+ [LPF] [facility] Neutrophils Auto (Bld) [#/Vo l]Ordered By: Kelby Ma on 06-29-2022 Neutrophils (Bld) [#/Vol] 9.0 10*3/uL 1.8-7.7 [facility] Neutrophils/100 WBC Auto (Bl d)Ordered By: Kelby Ma on 06-29-2022 Neutrophils/100 WBC (Bld) 86.2 % . [facility] Nitrite Test strip Ql (U)Ord ered By: Kelby Ma on 06-29-2022 Nitrite Ql (U) Negative Negative [facility] No Panel InformationOrdered By: Kelby Ma on 06-29-2022 Estimated GFR () > 60 mL/Min [facility] Comment on above: GFR estimated refere nce range: According to KDOQI guidelines, <60 ml/min/1.73m2 is sufficient to diagnose a patient with chronic kidney disease. Pharmacy Creatinine Clearance (Chem 145.24 [facility] Platelet mean volume Auto (B ld) [Entitic vol]Ordered By: Kelby Ma on 06-29-2022 Platelet mean volume (Bld) [Entitic vol] 7.4 fL 6.3-10.7 [facility] Platelets Auto (Bld) [#/Vol] Ordered By: Kelby Ma on 06-29-2022 Platelets (Bld) [#/Vol] 285 10*3/uL 150-450 [facility] Protein Auto test strip (U) [Mass/Vol]Ordered By: Kelby Ma on 06-29-2022 Protein (U) [Mass/Vol] 30 mg/dL Negative [facility] Protein [Mass/volume] in Ser um or PlasmaOrdered By: Kelby Ma on 06-29-2022 Protein [Mass/Vol] 6.6 g/dL 6.1-7.9 [facility] RBC Auto (Bld) [#/Vol]Ordere d By: Kelby Ma on 06-29-2022 RBC (Bld) [#/Vol] 4.86 10*6/uL 3.60-5.00 [facility] Serum or plasma alanine cochran otransferase measurement without P-5'-P (enzymatic activiOrdered By: Kelby Ma on 06-29-2022 ALT No additional P-5'-P [Catalytic activity/Vol] 16 U/L 10-60 [facility] Serum or plasma albumin/glob ulin mass ratioOrdered By: Kelby Ma on 06-29-2022 Albumin/Globulin [Mass ratio] 1.0 {ratio} [facility] Serum or plasma alkaline donta sphatase measurement (enzymatic activity/volume)Ordered By: Kelby Ma on 06-29-2022 ALP [Catalytic activity/Vol] 79 U/L 32-92 [facility] Serum or plasma anion gap de terminationOrdered By: Kelby Ma on 06-29-2022 Anion gap [Moles/Vol] 11.6 mmol/L 6.0-15.0 [facility] Serum or plasma aspartate am inotransferase measurement (enzymatic activity/volume)Ordered By: Kelby Ma on 06-29-2022 AST [Catalytic activity/Vol] 17 U/L 10-42 [facility] Serum or plasma calcium pauline urement (mass/volume)Ordered By: Kelby Ma on 06-29-2022 Calcium [Mass/Vol] 8.5 mg/dL 8.2-10.2 [facility] Serum or plasma chloride candis surement (moles/volume)Ordered By: Kelby Ma on 06-29-2022 Chloride [Moles/Vol] 102 mmol/L 95-114 [facility] Serum or plasma glucose pauline urement (mass/volume)Ordered By: Kelby Ma on 06-29-2022 Glucose [Mass/Vol] 169 mg/dL 70-100 [facility] Comment on above: ADA recommended refe rence rangeRandom Glucose Reference Range is dependent on time and content of last meal. Glucose of more than 200 mg/dL in a nonstressed, ambulatory subject supports the diagnosis of Diabetes Mellitus. Serum or plasma potassium me asurement (moles/volume)Ordered By: Kelby Ma on 06-29-2022 Potassium [Moles/Vol] 3.5 mmol/L 3.5-5.1 [facility] Serum or plasma sodium measu rement (moles/volume)Ordered By: Kelby Ma on 06-29-2022 Sodium [Moles/Vol] 133 mmol/L 136-146 [facility] Serum or plasma total biliru bin measurement (mass/volume)Ordered By: Kelby Ma on 06-29-2022 Bilirubin [Mass/Vol] 1.2 mg/dL 0.3-1.2 [facility] Serum or plasma total carbon dioxide measurement (moles/volume)Ordered By: Kelby Ma on 06-29-2022 CO2 [Moles/Vol] 22.9 mmol/L 22.0-30.0 [facility] Serum or plasma urea nitroge n measurement (mass/volume)Ordered By: Kelby Ma on 06-29-2022 Urea nitrogen [Mass/Vol] 16 mg/dL 9-23 [facility] Specific gravity Auto test s trip (U) [Rel density]Ordered By: Kelby Ma on 06-29-2022 Specific gravity (U) [Rel density] 1.028 1.001-1.030 [facility] Squamous epithelial cells de tection in urine sediment by light microscopyOrdered By: Kelby Ma on 06-29-2022 Epithelial cells.squamous LM Ql (Urine sed) 10-19 [HPF] 0-2 [facility] Urine bacteria detection by automated methodOrdered By: Kelby Ma on 06-29-2022 Bacteria Auto Ql (U) None seen None Seen [facility] Urine clarity by refractomet ry automatedOrdered By: Kelby Ma on 06-29-2022 Clarity Refractometry automated (U) Cloudy Clear [facility] Urine culture routineOrdered By: Kelby Ma on 06-29-2022 Bacteria identified Cx Nom (U) 2 Days [facility] Urine glucose measurement by automated test strip (mass/volume)Ordered By: Kelby Ma on 06-29-2022 Glucose Auto test strip (U) [Mass/Vol] Normal mg/dL Normal [facility] Urine hemoglobin detection b y automated test stripOrdered By: Kelby Ma on 06-29-2022 Hemoglobin Auto test strip Ql (U) Negative Negative [facility] Urine leukocyte esterase det ection by automated test stripOrdered By: Kelby Ma on 06-29-2022 Leukocyte esterase Auto test strip Ql (U) 1+ Negative [facility] Urobilinogen Auto test strip (U) [Mass/Vol]Ordered By: Kelby Ma on 06-29-2022 Urobilinogen (U) [Mass/Vol] Normal mg/dL Normal [facility] pH Auto test strip (U)Ordere d By: Kelby Ma on 06-29-2022 pH (U) 6.5 [pH] 5.0-9.0 [facility] Coding Summary.on 06-15-2022 Coding Summary. CD:[id number] Gh 0bWw+PGhlYWQ+QN4UGQKoV 47ptNLqoP7KA6iTRW0FBIG LSXBZCG2DDN1luCL3WOqdF 2VybiAv FhsdkNWjIO28FFc5OBM1iR dtCUrayY3kmGUkC0t3SdWw AI64hQ22IHfpGCNkRvZ1Fc ZpbjsgbWFy E6qkHwRoiXXyDtf+PHRhYm xlIHdpZHRoPScxMDAlJyBz pNcxOX8tPq1lNGIaQQSsoX xhcHNlOiBj w8puMKJcTXetUX8jhQomG2 KjtWM2XSPlg2o4Eq26rTF+ EZNfCLJ7aTisFFpee745Sh Qok4ezAIJ3 eZLsSFzoTFQ4K76gs1R2MQ QfWAQiGDE1tNO1fN1owGpb cvncA1KcoMRmFbA6ETS5sR VavW0tjPtn lrylhL1wVdl+S31JQC2FQL ELYI1GKqj1E1DcEmtfaRV+ BW17XGIpXV46qOFkiZWna4 ijbPy7KnKi XKMnPYP2pGmmMQsdp3TiBY ZsS26etSTou4G9HNNgqEli nOSaDaOqjUI2dK7yDVnhux jjm4ffpjvg Xvwwo0xqye08xW00R23sFO csXPGtBKQ9QKXzNQTneMad xy9fcM6bWo1+FIphy9edi4 rebKx8StZd BMXeneWjqUovWQN8w4JkBp 13P4AzqUhso4RuIoj6km63 cXWct8O0gMA0VBvcQUTerC 2vISrrAmF8 HXMlQxEthH79rNRsINseCt 5ddTqznVucZY0hLBKlnqkk BWUewK6nZKPqxBSfcIbqMR 4wNTBpbjtm j642SbVnJWB7AJHmjVSuO7 XyyD0mOlUkIEJmEWGhA6Nc mCKtQXhlR756CDjsDfL7WM VvgjMxB5Ck YLMakWrgOiW7v9T5Er9Lh8 WaugbuJZD9OCekLQEoUsNq ZoEpMmW3H9IyTxo3BCIdcU vgNK8oK6Hn MILjdcvwewytxJI6WACwZG VrlK15wCDtTQwrMb8se1I4 p912WRKnEEXgfK57Js5wnP ogMTBwdCBU dG8dmedqq7cosrkiScJhNX HyZOy7QHp5TFQcjCszYvMu BTH5OgD4CJY7aASikJ0zkZ djtmhplH8l Oyc+B06ttY4fPDC6HIH1aw jxKNRdbnFuMK08PP89T5Bc PjwvdGFibGU+PGRpdiBzdH pbIF2iWeHx y2vie0MdFIxsJ1CcJAMfJX zvYac5KDGhJPD9lPB6xS1f GAIrIHgdg9E6fNQ6Y0Asaw Zkxa0yz0pn BWDfUNsxE85toELlk6K3TA NavLD9JXPtrRfeHvCjlI84 Oyc+ASYlqFvao1UyAeehz7 vmo5lzuYm9 DxYwTGUdnvVhrZnwNQJ8h2 CaHm56H51vQEwhOMApZOLg KVPsCYTsyGbbrp5aoX9kTo 8+PGNvbCB3 vHD8fT6wYYMiWcP9FSfpK4 68TcWwmAXgMvyza8pbg7ym nGw7IgCnNXXsudRvsFytIA K9o1VsRy41 M72pMHzbXZNlKLYyPNTqTU RjeXhtip2bpS5hTl6+PC9j n3prdc22xL93wFN+PHRkIH B9cXzjYIko BVOodY7iXOfgEcK7XCAkNw TbiK90sQSnSTbcPe7xwGoj aFvoYH6lNMBobszym594Pd Jsl8abTSXq dKNkTAgzTTP2I79xr3D2WL HqEJVzHTV2sEQ3eZ2ffVir bjogbGVmdDsgdmVydGljYW pbMWgoG017 IHRvcDsnPlBhdGllbnQgTm RgCYy1Z6TdMzu7XMLowQiv ID2jhBTqSKjjPd4zrEpxxC miVT7mUYIw ucfsj914VxFdj1tvNOQhzB PlGWczZHW4K37cw1G8TVZt NAGhHMN1pDR9tJ7cbUdpxz ogbGVmdDsg wdFyaZwfOXybWIqaF253FS RvcDsnPkJpcnRoIERhdGU6 HN51MP63yAUzk7Z8cZF0K5 BhZGRpbmct eqwhbHA2IAKsXJSszP20Dn 0knBniCq2sLHAnVAS2MUGv gROqJ1OmxL3eWeQzYECbPK SxB4HgvEWk NTgaN770VEgzYtK6BJStdj UbA0NoYIAhoOzrFdN6d1D3 Rp3MD1Z8OV08CW26sJMxs3 D7lAX6U4Nd TOLbrkoxtxcumGF0EESaUT TeyZ99Yw6qsGgzJo2oYCVf ZGO4ANWqpNXvE8SpoJ9gRa AjMDAwMDAw F7LwsHGjVWrcM014KKtcHz J0XMQgzwLjP3OyKTHjmEua WqV2u0Y1Bz9GSBq1GM27FQ 64eOUxz4X7 wJD2S6XoPRXmszsjussksP X3OAHjTVGrxA69Eh0dqMmo Ew7zNFQqCPV3VMDlhPGaU8 BnrB6xVaVk YRKmJWNoU9DlpHVbCGvkK7 19RUijDcI9PRDzxvCrF0Zz QMLpdQjvSdD2o5J4Pu8KVB LvAJ07NCD0 kIO9BB84MZ77P1VgQjgppU FibGU+PHRhYmxlIHdpZHRo QTrjNDHlPnIynZfiWL2mZw 9yZGVyLWNv xClieGNlVtKrc5tnXIYmVT bjVC5anDiqY8NkrWH7BTDr h2e5Tr13O66zI5IbrTJ+PG ShtQA6gCR8 sH1fUxEnHuB0VAzeB123Zj ZogAIuFznmd6cdb2oulRa6 GaN1PLDbslDltCxgBUY7z0 FrYg54C66t IHdpZHRoPSIxNSUiIHZhbG pupm9xrF2xQu5+PGNvbCB3 hBF8qX8uLuShApY1OOioQ0 49InRvcCIv Hgdak0moh9djdPz1MuQjMU KkosCwjShaYPR8v5EqQu72 H3TvpWdhg7YxErt1om48lY Roj4E0mZM4 R7QhRACzgrkjsFGkfRivWI 8jQCYcywjjIMPssD6mXQGv U1u3QpObItO0IRjtK9Xosc W4HRMrkHYe GVzuNVQ4Z05mz1N7NNBpYE MbLYJ2xUY6gH0coEywilnv bGVmdDsgdmVydGljYWwtYW jeJ516ECVc pYpePWOhnK7xHWVavXOjpU toNK8eWBFdzhsxDqUUNDLW MKEDBKUPUWVKUI03D4IoWz v4IKEzcDsg OU1ptRSsMLadQp3crSgmoN nhGT7wJYCftudwRIHumS8d VIAbnCEbqRsjTU0zVZFfxl rfu512PaQn JUP8LWHsiWBdP1DfqB8gWk XqLZPoSGJbD1MihWIhYOku Z691VKonGqP5OOImeaHrX8 FsLWFsaWdu WbO7l3V7Ru9iYe8rKD3oZF n4YF08LI69uZMok4N4vMX8 L0WhCASwnlzibubaeGO6ET FnENSyqR26 tGCqYIusPo4dq5G2g085RH HrIHSdzD93Oy0obLlmOAMy eTNXbU6fkeryu4ykudmrYq AwMDAwMDt0 IIi5ATLqyQwoHdCdONF0Mn C9MWH0vXZbzC2gfCemgoav uP2qEnd+TUVuAAGjypF2J7 DiGnh2ORIr pLihDO3qaMStTPkhFk5hxC lgwUspTU0oKLEexshhXZPq cF5zRVEapPWbuWkfSQ8sHG Zhcglpt894 GwQkNKW8TCYwrXDsM8BhvR 2oQxUfDRLrDZEfK2HeeVRs IFyzY409CMfnGdH9OVYxmq NwN9DrWAEl jVkeRkB0n9L2Ia9HFV8tfM T5N5BwTkf2VHWorInbXX4t eUSqPLdqWe1krNnucHraIM 4wNTBpbjtw JWHokO4iTQUnlILucScfPL 2wHVFydsddj664LrJlYQU3 LQFeqQRvU0KkeL3vDtGbBE OmSCXoT6Tg fYWnRYvqT110PBgkPmM5FV KvbnEzC3RiFWOdzEmzGtG9 c7N2Jo5GcSSxBARcCK58SD 87PG16B8Yj PjwvdGFibGU+PHRhYmxlIH dpZHRoPScxMDAlJyBzdHls ZS2kRq7tRZOoVHFisPuexC NtXrFhu9br ONVoYXpiDH0niRnsL9ZbuV S3GZMmc8v9Ik27U57hE7Th dXA+OZOimME8lOW3sQ1gVu KxApC4RKwl D713ClRplRAhJhopy8yhb9 vrlKu1KkItOFBvguNctCoz NPO3s9BmGz86E86nTJvvRX RoPSIyMCUi CWBpjTozqe3emJ7bMx8+PG PpyPC0bBR4nD7vUkMiUyB9 XHdtH797TlVizJLwSobdH8 1yY5MtbDL+ NSCwJgx3AXUjeMhiOE9piN WnOGpfKn9dKFA6MlPjShJc BMcqV3DbGHPpxkhumoowvQ Z1WXQeOWWw gQ79Wt3cwZbrXq5zQAAhND V6NAKvtHDoD2WevG0rFxXt XKKcJHTmD0TvoSXhSYcqR1 91TBpkMjT3 ALSgxjLnG9SpWYRorCyfJo B4q6E1Li0RhBvevUJaAB9v MvKtXLs3F7GhBzv8QZIphS bwNL6trRPr OHmeEk4muFuhzQblZK7pGT Kqqbjah707RcIjs4voGHBg hJRiIJbuZDZ4L69zd1P6ZI MwMDAwMDA7 cZR8eF8hcPzmgvgueHKnkK bftaIyhJamMWeeLDbbE994 KNOipQqlZjRFFbv4H2TqWb x7ISQfeOnf XN2ouGRhERgoFu7wsLyloV ofGO7oDAYincqpx883KbTf w2ygLMNwcFQzVWgeFRA0Q3 5jt6T3YAHh OLGjVWZ5dJD4nC9hfFuqtt ogbGVmdDsgdmVydGljYWwt JAvhP011ZLQyiLasDf7LUt h8N9YdEiv2 ALWzdWstNV1cuSBwNWmbVc 7wmQjlcMerPQ0wQMDojlwd n421CfJwk1krXWKrdVFtNX bcFDW6M61k a5R7RMDfCJUxQUT7kSL1cJ 1hbGlnbjogbGVmdDsgdmVy dSzhMRzyMYzoW762WCLboH snPlBheWVy OjwvdGQ+HT94cw06Y9SvOq sdXhh9FWQkIPE6sDE0tV6p BFWbQDovn1E5vUD6I0Kigd Tjze4jg1xv YXBz (more content not included)... Normal [facility] Basophils Auto (Bld) [#/Vol] Ordered By: PROVIDER TEMP on 06-13-2022 Basophils (Bld) [#/Vol] 0.0 10*3/uL 0.0-0.2 [facility] Basophils/100 WBC Auto (Bld) Ordered By: PROVIDER TEMP on 06-13-2022 Basophils/100 WBC (Bld) 0.4 % . [facility] COVID CepheidOrdered By: PRO VIDER TEMP on 06-13-2022 SARS-CoV-2 (COVID-19) Ab IA Ql Negative Negative [facility] Comment on above: This is a duplicate Cepheid Xpert Xpress CoV-2/Flu/RSV Plus RNA by RT-PCR result to be used for statistical tracking purpose only. COVID CepheidOrdered By: Johnnie Stovall on 06-13-2022 SARS-CoV-2 (COVID-19) RNA DEBBIE+probe Ql (Unsp spec) [facility] SARS-CoV-2 (COVID-19) RNA DEBBIE+probe Ql (Unsp spec) [facility] Consent for Procedure/Surger yon 06-13-2022 Consent for Procedure/Surgery [id number]#1. 00CD:127 Normal [facility] Creatinine and Glomerular fi ltration rate.predicted panel (S/P/Bld)Ordered By: PROVIDER TEMP on 06-13-2022 Creatinine [Mass/Vol] 0.69 mg/dL 0.44-1.03 [facility] Eosinophils Auto (Bld) [#/Vo l]Ordered By: PROVIDER TEMP on 06-13-2022 Eosinophils (Bld) [#/Vol] 0.2 10*3/uL 0.0-0.45 [facility] Eosinophils/100 WBC Auto (Bl d)Ordered By: PROVIDER TEMP on 06-13-2022 Eosinophils/100 WBC (Bld) 1.6 % . [facility] Erythrocyte distribution wid th Auto (RBC) [Ratio]Ordered By: PROVIDER TEMP on 06-13-2022 Erythrocyte distribution width (RBC) [Ratio] 13.3 % 11.9-15.3 [facility] Estimated glomerular filtrat ion rate (GFR) non- AmericanOrdered By: PROVIDER TEMP on 06-13-2022 GFR/1.73 sq M.predicted among non-blacks MDRD (S/P/Bld) [Vol rate/Area] > 60 mL/Min [facility] Hematocrit Auto (Bld) [Volum e fraction]Ordered By: PROVIDER TEMP on 06-13-2022 Hematocrit (Bld) [Volume fraction] 38.9 % 34.0-46.4 [facility] Hemoglobin [Mass/volume] in BloodOrdered By: PROVIDER TEMP on 06-13-2022 Hemoglobin (Bld) [Mass/Vol] 13.1 g/dL 11.8-15.4 [facility] IntraOperative Documentson 1 08-13-2021 IntraOperative Documents [id number]#1. 00CD:127 Normal [facility] Laboratory - Chemistry and C hemistry - challengeOrdered By: PROVIDER TEMP on 06-13-2022 Natriuretic peptide B (Bld) [Mass/Vol] 12.0 pg/mL 5-100 [facility] Laboratory - Hematology and Cell countsOrdered By: PROVIDER TEMP on 06-13-2022 Nucleated RBC/100 WBC (Bld) [Ratio] 0.1 % 0-0.5 [facility] Leukocytes [#/volume] in Blo od by Automated countOrdered By: PROVIDER TEMP on 06-13-2022 WBC (Bld) [#/Vol] 9.3 10*3/uL 4.5-11.0 [facility] Lymphocytes Auto (Bld) [#/Vo l]Ordered By: PROVIDER TEMP on 06-13-2022 Lymphocytes (Bld) [#/Vol] 1.4 10*3/uL 1.00-4.8 [facility] Lymphocytes/100 WBC Auto (Bl d)Ordered By: PROVIDER TEMP on 06-13-2022 Lymphocytes/100 WBC (Bld) 14.6 % . [facility] MCH Auto (RBC) [Entitic mass ]Ordered By: PROVIDER TEMP on 06-13-2022 MCH (RBC) [Entitic mass] 27.1 pg 24.7-34.3 [facility] MCHC Auto (RBC) [Mass/Vol]Or dered By: PROVIDER TEMP on 06-13-2022 MCHC (RBC) [Mass/Vol] 33.6 g/dL 32.0-35.0 [facility] MCV Auto (RBC) [Entitic vol] Ordered By: PROVIDER TEMP on 06-13-2022 MCV (RBC) [Entitic vol] 80.8 fL 80-100 [facility] Monocytes Auto (Bld) [#/Vol] Ordered By: PROVIDER TEMP on 06-13-2022 Monocytes (Bld) [#/Vol] 0.9 10*3/uL 0.0-0.8 [facility] Monocytes/100 WBC Auto (Bld) Ordered By: PROVIDER TEMP on 06-13-2022 Monocytes/100 WBC (Bld) 9.4 % . [facility] Neutrophils Auto (Bld) [#/Vo l]Ordered By: PROVIDER TEMP on 06-13-2022 Neutrophils (Bld) [#/Vol] 6.9 10*3/uL 1.8-7.7 [facility] Neutrophils/100 WBC Auto (Bl d)Ordered By: PROVIDER TEMP on 06-13-2022 Neutrophils/100 WBC (Bld) 74.0 % . [facility] No Panel InformationOrdered By: PROVIDER TEMP on 06-13-2022 Estimated GFR () > 60 mL/Min [facility] Comment on above: GFR estimated refere nce range: According to KDOQI guidelines, <60 ml/min/1.73m2 is sufficient to diagnose a patient with chronic kidney disease. Pharmacy Creatinine Clearance (Chem 111.70 [facility] Platelet mean volume Auto (B ld) [Entitic vol]Ordered By: PROVIDER TEMP on 06-13-2022 Platelet mean volume (Bld) [Entitic vol] 7.8 fL 6.3-10.7 [facility] Platelets Auto (Bld) [#/Vol] Ordered By: PROVIDER TEMP on 06-13-2022 Platelets (Bld) [#/Vol] 281 10*3/uL 150-450 [facility] RBC Auto (Bld) [#/Vol]Ordere d By: PROVIDER TEMP on 06-13-2022 RBC (Bld) [#/Vol] 4.82 10*6/uL 3.60-5.00 [facility] Serum or plasma anion gap de terminationOrdered By: PROVIDER TEMP on 06-13-2022 Anion gap [Moles/Vol] 12.8 mmol/L 6.0-15.0 [facility] Serum or plasma calcium pauline urement (mass/volume)Ordered By: PROVIDER TEMP on 06-13-2022 Calcium [Mass/Vol] 9.0 mg/dL 8.2-10.2 [facility] Serum or plasma chloride candis surement (moles/volume)Ordered By: PROVIDER TEMP on 06-13-2022 Chloride [Moles/Vol] 101 mmol/L 95-114 [facility] Serum or plasma glucose pauline urement (mass/volume)Ordered By: PROVIDER TEMP on 06-13-2022 Glucose [Mass/Vol] 258 mg/dL 70-100 [facility] Comment on above: Delta: 119 on -1211ADA recommended reference rangeRandom Glucose Reference Range is dependent on time and content of last meal. Glucose of more than 200 mg/dL in a nonstressed, ambulatory subject supports the diagnosis of Diabetes Mellitus. Serum or plasma potassium me asurement (moles/volume)Ordered By: PROVIDER TEMP on 06-13-2022 Potassium [Moles/Vol] 3.1 mmol/L 3.5-5.1 [facility] Serum or plasma sodium measu rement (moles/volume)Ordered By: PROVIDER TEMP on 06-13-2022 Sodium [Moles/Vol] 131 mmol/L 136-146 [facility] Serum or plasma total carbon dioxide measurement (moles/volume)Ordered By: PROVIDER TEMP on 06-13-2022 CO2 [Moles/Vol] 20.3 mmol/L 22.0-30.0 [facility] Serum or plasma urea nitroge n measurement (mass/volume)Ordered By: PROVIDER TEMP on 06-13-2022 Urea nitrogen [Mass/Vol] 15 mg/dL 04-27 [facility] Troponin I.cardiac [Mass/vol ume] in Serum or Plasma by High sensitivity methodOrdered By: PROVIDER TEMP on 06-13-2022 Troponin I.cardiac High sensitivity method [Mass/Vol] 7 pg/mL 0- [facility] Body fluid albumin measureme nt (mass/volume)Ordered By: Michael Morley on 06-12-2022 Albumin (Body fld) [Mass/Vol] 3.5 g/dL 3.2-5.5 [facility] Cholesterol [Mass/volume] in Serum or PlasmaOrdered By: Michael Morley on 06-12-2022 Cholesterol [Mass/Vol] 138 mg/dL 140-200 [facility] Comment on above: Chol less than 200 m g/dl low riskChol 201-239 mg/dl borderline riskChol 240 mg/dl and greater high risk Cholesterol in LDL Calc [Mas s/Vol]Ordered By: Michael Morley on 06-12-2022 Cholesterol in LDL [Mass/Vol] 74 mg/dL 0-100 [facility] Comment on above: LDL ATP III CLASSIFI CATIONLDL less than 100 mg/dL OptimalLDL 100-129 mg/dL Near or above optimalLDL 130-159 mg/dL Borderline highLDL 160-189 mg/dL HighLDL greater than 189 mg/dL Very high Cholesterol in VLDL Calc [Ma ss/Vol]Ordered By: Michael Morley on 06-12-2022 Cholesterol in VLDL [Mass/Vol] 12 mg/dL [facility] Consent for Treatmenton Consent for Treatment [id number]#1.0 0CD:127 Normal [facility] Creatinine and Glomerular fi ltration rate.predicted panel (S/P/Bld)Ordered By: Michael Morley on 06-12-2022 Creatinine [Mass/Vol] 0.52 mg/dL 0.44-1.03 [facility] Estimated glomerular filtrat ion rate (GFR) non- AmericanOrdered By: Michael Morley on 06-12-2022 GFR/1.73 sq M.predicted among non-blacks MDRD (S/P/Bld) [Vol rate/Area] > 60 mL/Min [facility] Globulin Calc (S) [Mass/Vol] Ordered By: Michael Morley on 06-12-2022 Globulin (S) [Mass/Vol] 3.0 g/dL [facility] Glucose mean value [Mass/vol ume] in Blood Estimated from glycated hemoglobinOrdered By: Michael Morley on 06-12-2022 Average glucose Estimated from glycated hemoglobin (Bld) [Mass/Vol] 131 mg/dL [facility] Hemoglobin A1c percentageOrd ered By: Michael Morley on 06-12-2022 HbA1c (Bld) [Mass fraction] 6.2 % 4.3-5.6 [facility] Comment on above: Increased risk for d iabetes: 5.7 - 6.4diabetes: >6.4glycemic control for adults with diabetes: <7.0 Laboratory - Chemistry and C hemistry - challengeOrdered By: Michael Morley on 06-12-2022 Cobalamin (Vitamin B12) [Mass/Vol] 326 pg/mL 180-914 [facility] Main OR Intraoperative Recor don 06-12-2022 Main OR Intraoperative Record IntraOp Document Type FTURO Summary Primary Physician: No TORRES MD Finalized Date/Time: 06/12/22 16:21:38 Pt. Name: LISA FERNANDO/Sex: 1975 Female Med Rec #: [id number] Physician: No TORRES MD Financial #: [id number] Pt. Type: O Room/Bed: / Admit/Disch: 06/12/22 14:21:51 - Institution: Case Times FTURO Entry 1 Patient Times In Room 06/12/22 15:58:00 Out Room 06/12/22 16:21:00 Procedure Times Start 06/12/22 16:09:00 Stop 06/12/22 16:12:00 Anesthesia Times Last Modified By: Annalise Samuels RN 06/12/22 16:21:33 Case Attendance FTURO Entry 1 Entry 2 Entry 3 Case Attendee MELISSA CHUA, No Snachez CST, Annalise Pereira RN Role Performed Surgeon - Primary Scrub - Primary Teacher Education Instructor - Primary Time In 06/12/22 15:58:00 06/12/22 15:58:00 06/12/22 15:58:00 Time Out 06/12/22 16:21:00 06/12/22 16:21:00 06/12/22 16:21:00 Procedure CYSTOSCOPY LOCAL WITH CYSTOSCOPY LOCAL WITH CYSTOSCOPY LOCAL WITH URETHRAL DILATION(.) URETHRAL DILATION(.) URETHRAL DILATION(.) Comments Last Modified By: Annailse Samuels RN, RN, Annalise Hunter RN 06/12/22 16:21:33 06/12/22 16:21:33 06/12/22 16:21:33 Surgical Procedures FTURO Entry 1 Procedure Description Procedure CYSTOSCOPY LOCAL WITH Modifiers . URETHRAL DILATION Surgeon Description CYSTOSCOPY LOCAL WITH URETHRAL DILATION Primary Procedure Yes Primary Surgeon No TORRES MD Start 06/12/22 16:09:00 Stop 06/12/22 16:12:00 Anesthesia Type Local Surgical Service Urology Wound Class 2 - Clean-Contaminated Last Modified By: Annalise Samuels RN 06/12/22 16:19:13 General Case Data FTURO Pre-Care Text: Classifies surgical wound, implements aseptic technique, initiates traffic control Entry 1 Case Information OR URO 1 FT Case Level None Wound Class 2 - Clean-Contaminated Specialty Urology Preop Diagnosis HEMATURIA, MIXED Postop Same As Preop Yes INCONTINENCE, HX STONES Postop Diagnosis HEMATURIA, MIXED Outcomes Met? Yes INCONTINENCE, HX STONES Last Modified By: Annalise Samuels RN 06/12/22 16:01:10 Post-Care Text: The patient is free from signs and symptoms of infection EU IntraOp - FTURO Pre-Care Text: Implements protective measures prior to operative or invasive procedure, confirms identity before the operative or invasive procedure, verifies operative procedure, surgical site, and laterality Entry 1 EU Perioperative Protocols Procedure(s) CYSTOSCOPY LOCAL WITH Patient Identity Birthday, ID Band URETHRAL DILATION(.) Verified (select at Check, Patient least 2): Participation Consents / H and P HandP, Surgery/Procedure Operative Site N/A Verified Consent Marking Verified Surgical Site Yes Laterality Verified Yes Verified Procedure Verified Yes Correct Patient Yes Position Verified Availability Equipment, Medication Time Out No TORRES MD, Verified (If Participants Annalise Sanchez CST Applicable) Arvind Chauhan RN, Kimberly Y Time Out Complete 06/12/22 16:01:00 Allergies Reviewed? Yes Allergies Reviewed Self/Patient With Body Position Frog Legged Prep Area PERINEUM Prep Agents Betadine Solution Skin. Condition Dry, Warm, Unable to Description UNABLE TO VISUALIZE DUE Visualize TO PATIENT PARTIALLY CLOTHED Additional None Specimens Collected Vitals - EU Blood Pressure 108/72 Pulse 91 bpm Respirations 16 br/min SPO2 97 % EBL 0 IandO - EU Total Intake 0 mL Total Output 0 mL Outcomes Met? Yes Last Modified By: Annalise Samuels RN 06/12/22 16:04:14 Post-Care Text: The patient is free from signs and symptoms of injury caused by extraneous objects Sign Out FTURO Entry 1 Before Patient Leaves OR Nurse verbally Yes Nurse verbally Yes confirms with the confirms with the team the name of team that the procedure(s) instrument, sponge, recorded and needle counts are correct (or N/A) Nurse verbally n/a Nurse verbally Yes confirms with the confirms with the team how the team whether there specimen is labeled are any equipment (including patient problems to be name), if applicable addressed Sign Out Complete 06/12/22 16:12:00 Last Modified By: Annalise Samuels RN 06/12/22 16:19:09 Case Comments Finalized By: Annalise Samuels RN Document Signatures Signed By: Annalise Samuels RN 06/12/22 16:21 Normal [facility] Main OR Preoperative Recordo n 06-12-2022 Main OR Preoperative Record Holding Area Document Type FTURO Summary Primary Physician: No TORRES MD Finalized Date/Time: 06/12/22 16:04:42 Pt. Name: LISA FERNANDO./Sex: 1975 Female Med Rec #: [id number] Physician: No TORRES MD Financial #: [id number] Pt. Type: O Room/Bed: / Admit/Disch: 06/12/22 14:21:51 - Institution: Case Times Holding FTURO Pre-Care Text: Verifies consent for planned procedure, identifies individual values and wishes concerning care, includes family members in perioperative teaching Secures patient's records' belongings, and valuables, maintains patient's dignity and privacy, and maintains patient confidentiality Entry 1 In Holding 06/12/22 15:44:00 Outcomes Met? Yes Last Modified By: COLLIN Kirkpatrick RN, Ruthann 06/12/22 15:44:18 Post-Care Text: The patient participates in decisions affecting his or her perioperative plan of care The patient's right to privacy is maintained Surgery Checklist [facility] Entry 1 Patient Birthday, ID Band Procedure History and Physical, Identification: Check, Patient Verification: Surgical Consent, With Participation Patient NPO after Midnight: n/a Personal Items glasses left at home, Comment: clothes Limitations: pt did have hand Complaints of Pain: No surgery two months ago Skin Integrity Intact Vitals - EU Blood Pressure 108/72 Pulse 91 bpm Respirations 16 br/min SPO2 97 % Additional None RN Reviewed Yes Specimens Collected Last Modified By: Annalise Samuels RN 06/12/22 16:04:41 Finalized By: Annalise Samuels RN Document Signatures Signed By: COLLIN Kirkpatrick RN, Ruthann 06/12/22 15:47 Annalise Samuels RN 06/12/22 16:04 Normal [facility] No Panel InformationOrdered By: Michael Morley on 06-12-2022 Estimated GFR () > 60 mL/Min [facility] Comment on above: GFR estimated refere nce range: According to KDOQI guidelines, <60 ml/min/1.73m2 is sufficient to diagnose a patient with chronic kidney disease. Pharmacy Creatinine Clearance (Chem N/A [facility] Operative Reporton Operative Report Patient: LISA FERNANDO Age: 46 years Sex: Female : 1975 Associated Diagnoses: None Author: No TORRES MD Procedure Operative Information Details: Date/ Time: 06/12/2022 16:15:00. Pre-Op Dx: Micro Hematuria - Asymptomatic - R31.21, Mixed Urinary Incontinence - N39.46, Incomplete Bladder Emptying - R39.14, Urethral Stricture - Female Post Trauma Urethral Stricture Female - N35.028. Post-Op Dx: Same. Anesthesia Type: Local. Procedure: Local Cystoscopy with Urethral Dilation. Complications: None. Risks/Benefits/Informe d Consent: Surgical risks, benefits, details of the procedure have been explained to the patient, Full informed consent has been obtained. Intraoperative Information Prepped: Patient is brought back to the endoscopy suite, Patient is placed in modified dorso/lithotomy position, Patient prepped in the usual fashion with Betadine solution, 2% Xylocaine Jelly is placed per Urethra, After waiting several minutes the Cystoscope is introduced. The Urethra is: Tight. The Bladder is: Normal, No bladder tumors. Significant urethral hypermobility with Valsalva. Moderate stress incontinence. Grade 1-2 cystocele.. The ureteral orifices: Show efflux of clear urine. The Urethra was dilated to: 24 [place] w/ sounds. Devices Implanted: None. Removal: Cystoscope is removed, The patient tolerated it well. Postoperative Information Discharge: Patient is discharged home with antibiotic coverage, Follow up arranged. Normal [facility] Comment on above: Result Comment: Elec tronically Signed By: No TORRES MD\.br\Date and Time Signed: 06/12/22 16:16 EST Protein [Mass/volume] in Ser um or PlasmaOrdered By: Michael Morley on 06-12-2022 Protein [Mass/Vol] 6.5 g/dL 6.1-7.9 [facility] Serum or plasma alanine cochran otransferase measurement without P-5'-P (enzymatic activiOrdered By: Michael Morley on 06-12-2022 ALT No additional P-5'-P [Catalytic activity/Vol] 11 U/L 10-60 [facility] Serum or plasma albumin/glob ulin mass ratioOrdered By: Michael Morley on 06-12-2022 Albumin/Globulin [Mass ratio] 1.2 {ratio} [facility] Serum or plasma alkaline donta sphatase measurement (enzymatic activity/volume)Ordered By: Michael Morley on 06-12-2022 ALP [Catalytic activity/Vol] 75 U/L 32-92 [facility] Serum or plasma anion gap de terminationOrdered By: Michael Morley on 06-12-2022 Anion gap [Moles/Vol] 8.5 mmol/L 6.0-15.0 [facility] Serum or plasma aspartate am inotransferase measurement (enzymatic activity/volume)Ordered By: Michael Morley on 06-12-2022 AST [Catalytic activity/Vol] 15 U/L 10-42 [facility] Serum or plasma calcium pauline urement (mass/volume)Ordered By: Michael Morley on 06-12-2022 Calcium [Mass/Vol] 9.1 mg/dL 8.2-10.2 [facility] Serum or plasma chloride candis surement (moles/volume)Ordered By: Michael Morley on 06-12-2022 Chloride [Moles/Vol] 105 mmol/L 95-114 [facility] Serum or plasma glucose pauline urement (mass/volume)Ordered By: Michael Morley on 06-12-2022 Glucose [Mass/Vol] 119 mg/dL 70-100 [facility] Comment on above: ADA recommended refe rence rangeRandom Glucose Reference Range is dependent on time and content of last meal. Glucose of more than 200 mg/dL in a nonstressed, ambulatory subject supports the diagnosis of Diabetes Mellitus. Serum or plasma high density lipoprotein (HDL) cholesterol measurementOrdered By: Michael Morley on 06-12-2022 Cholesterol in HDL [Mass/Vol] 52 mg/dL 35-85 [facility] Comment on above: HDL CHOL ATP-III CLA SSIFICATION Cardiovascular RiskHDL > or equal to 60 mg/dL LOWHDL < 40 mg/dL HIGH Serum or plasma potassium me asurement (moles/volume)Ordered By: Michael Morley on 06-12-2022 Potassium [Moles/Vol] 4.1 mmol/L 3.5-5.1 [facility] Serum or plasma sodium measu rement (moles/volume)Ordered By: Michael Morley on 06-12-2022 Sodium [Moles/Vol] 136 mmol/L 136-146 [facility] Serum or plasma total biliru bin measurement (mass/volume)Ordered By: Michael Morley on 06-12-2022 Bilirubin [Mass/Vol] 1.0 mg/dL 0.3-1.2 [facility] Serum or plasma total carbon dioxide measurement (moles/volume)Ordered By: Michael Morley on 06-12-2022 CO2 [Moles/Vol] 26.6 mmol/L 22.0-30.0 [facility] Serum or plasma total choles terol/high density lipoprotein (HDL) cholesterol mass ratOrdered By: Michael Morley on 06-12-2022 Cholesterol.total/Cho lesterol in HDL [Mass ratio] 2.7 {ratio} <5.0 [facility] Serum or plasma urea nitroge n measurement (mass/volume)Ordered By: Michael Morley on 06-12-2022 Urea nitrogen [Mass/Vol] 13 mg/dL 9- [facility] TSH DL <= 0.005 mIU/L QnOrde red By: Michael Morley on 06-12-2022 TSH Qn 0.84 m[IU]/L 0.45-5.33 [facility] Triglyceride [Mass/volume] i n Serum or PlasmaOrdered By: Michael Morley on 06-12-2022 Triglyceride [Mass/Vol] 60 mg/dL 35-149 [facility] Comment on above: TRIG ATP III CLASSIF ICATIONTRIG less than 150 mg/dL NormalTRIG 150-199 mg/dL Borderline highTRIG 200-500 mg/dL High TRIG greater than 500 mg/dL Very highStandard traceable to the Center for Disease Conrtrol and Prevention (CDC) test method. RAD - CT Reporton 05-31-2022 RAD - CT Report [id number] Normal [facility] Urine culture routineOrdered By: Jorgito Sanchez on 04-04-2022 Bacteria identified Cx Nom (U) 2 Days [facility] Urinalysis - AUTOMATEDon Appearance (U) clear [employer] Other Bilirubin Ql (U) Negative [employer] Other Color (U) dark yellow [employer] Other Glucose Ql (U) Negative [employer] Other Hemoglobin Ql (U) trace-intact [employer] Other Ketones Ql (U) Negative [employer] Other Leukocyte esterase Test strip Ql (U) trace [employer] Other Nitrite Ql (U) Negative [employer] Other pH (U) 5.5 [pH] [employer] Other Protein Ql (U) Negative [employer] Other Specific gravity (U) [Rel density] 1.020 [employer] Other Urobilinogen (U) [Mass/Vol] 0.2 mg/dL [employer] Other Urinalysis - AUTOMATED [employer] Other Operative Reporton Operative Report MR#: [id number] [facility] Pt. Name: Lisa Fernando Room #: 0 Discharge Date: Birthdate: 1975 OPERATIVE REPORT DATE OF SURGERY: 03/19/2022 SURGEON: Isai Sun M.D. PREOPERATIVE DIAGNOSIS: CMC joint arthritis, left thumb, soft tissue mass left wrist. POSTOPERATIVE DIAGNOSIS: CMC joint arthritis, left thumb, soft tissue mass left wrist. PROCEDURE: 1. Escision of 4mm soft tissue mass contained in the subcutaneus tissue. 2. Deleon soft tissue arthroplasty using FCR tendon graft, left thumb. MARKETING PROJECT LEAD: Augustine Villalpando MD ANESTHESIA: Regional. INDICATION FOR SURGERY: The patient is a 46-year-old female whom we have seen in our [facility] with complaints of pain at the basilar joint of her left thumb. This has been a worsening and persistent problem despite nonoperative means of treatment. At this point, she is felt to be a candidate for surgical management for this problem. She was brought to the operating room today for that purpose. The risks and benefits were explained prior to surgery and with good understanding, it is agreed to proceed. PROCEDURE IN DETAIL: The patient was brought to the operating room and placed on the operating table in the supine position. An axillary block had been administered per the Anesthesia Service in the holding area. A tourniquet was placed around the proximal left arm. She was given preoperative antibiotics and the left upper extremity was prepped and draped out in a sterile fashion. To begin the procedure, after standard time-out, the arm was exsanguinated with an Esmarch bandage and the tourniquet was inflated to 250 mmHg. Using a #15 blade, I made a transverse incision in the wrist crease. This was centered over the soft tissue mass that was present. I bluntly dissected through the subcutaneous tissue. The mass was identified. It is a firm round 4 mm in diameter mass. It dissects out fairly easily from the surrounding soft tissues. Once I removed the mass, it was sent for permanent pathology. This wound was irrigated and the skin was closed with horizontal mattress sutures of 4-0 Novafil. We then turned our attention to the base of the thumb. Using a #15 blade, a curvilinear incision was made along the lateral aspect of the base of the thumb. Blunt dissection was carried out through the subcutaneous tissue. There was actually 2 branches of the superficial radial nerve that were identified. One was taken dorsally and 1 volarly. The APL and EPB tendons were identified. The EPB was dissected free and mobilized dorsally. Then, using a Bovie, we used the plane between the 2 tendons to expose the base of the thumb metacarpal, the CMC joint, and the trapezium. The radial artery was identified at the proximal end of our dissection. We started elevating the capsule off the trapezium. There was a large loose body that was extruded. There is significant subluxation of the joint. Once we had adequate exposure and the anatomic landmarks were clearly defined, the trapezium was grasped with a small rongeur. By twisting it, I was able to remove it almost completely intact. There were couple small fragments that were removed. There were some early osteophytes that were forming some of that fibrocartilaginous type tissue that we removed from up around the base of the thumb and index metacarpals. Once we had taken care, scaphotrapezoid joint was visualized. The joint looks good. The wound was irrigated with normal saline solution briefly. With the Ragnell retractor, we grasped the FCR tendon. By placing a little bit of tension on the tendon, it is easily palpable at the junction of the middle and distal thirds of the forearm. The FCR was exposed at that level. The tendon was dissected free, isolated, and transected with a Bovie. We used our Ragnell retractor to pull the tendon out into the wound and at the base of the thumb. The tendon is split in half longitudinally, creating 2 slips of tendon. We then went to the base of the thumb metacarpal. An oblique drill hole was made that was perpendicular with the thumbnail plate and exits right near the FCR tendon insertion. One slip of the FCR tendon is pulled through the drill hole using a Garcia suture passer. The tendon was looped around the base of the metacarpal and then tied together with and sutured to the other slip of tendon. The remaining tendon from both slips was rolled up onto forceps and sutured together into a ball. That was used to fill the space from where the trapezium was excised. The capsule was closed with [id number] sutures of 3-0 Vicryl. The skin was closed with 5-0 Novafil. A sterile dressing of Xeroform gauze, 4x4 fluffs, Webril, and a short-arm thumb spica plaster splint was applied. The tourniquet was released and the drapes were removed. All sponge and needle counts were correct at time of closure. Electr (more content not included)... Normal [facility] POC GLUCOSE LABon 03-19-2022 Glucose [Mass/Vol] 68 mg/dL Low 70-100 [facility] Comment on above: Performed By: #### [id number] #### [facility] [address] [place] [address], [facility] Glucose [Mass/Vol] 104 mg/dL High 70-100 [facility] Comment on above: Performed By: #### [id number] #### [place] [address], [facility] HAND LEFT 3 VWSon 03-06-2022 HAND LEFT 3 VWS [facility] Department of Radiology [address] [place] [id number] ======== Patient Name: LISA FERNANDO : 1975 Sex: F Age: Race: White Pt. Location: Patient Status: D Ordered Date: 03/06/2022 11:40:00 AM Completed Date: 03/06/2022 01:07 PM Requesting Provider: ISAI SUN Attending Provider: ISAI SUN Report Copy To: Signs & Symptoms: M79.642 Pain in left hand I10 History: Wayan Comments: Evaluate Exam: HAND LEFT 3 S ======== HAND LEFT 3 S 03/06/2022 1:07 PM CLINICAL INDICATIONS: M79.642 Pain in left hand I10 TECHNOLOGIST COMMENTS: pain in base of 1st digit of both hands QUESTION FOR THE RADIOLOGIST: Evaluate PROTOCOL: AP,Lateral and Oblique views were obtained. COMPARISON: None FINDINGS: No acute fracture or dislocation is seen. Bones of the wrist appear to be in proper anatomic alignment. Degenerative changes seen at first CMC joint. There is an area of heterotopic ossification measuring 4 mm in the soft tissue adjacent to the first CMC joint on the radial side of the wrist. IMPRESSION: Degenerative changes seen at first CMC joint. Approved by:Edilia Gasca03/07/2022 10:52 AM. I, Tika Larson,have reviewed the image(s) and agree with the findings in this report. Electronically signed: Tika Larson. Transcribed by: [email or web address], User Resident: EDILIA REDMOND Electronically Signed by: TIKA LARSON @ 03/07/2022 11:48 AM I personally read this/these film(s) with this resident Normal [facility] Comment on above: Order Comment: Evalu ate HAND RIGHT 3 VWSon 2 HAND RIGHT 3 VWS [facility] Department of Radiology [address] [place] [id number] ======== Patient Name: LISA FERNANDO : 1975 Sex: F Age: Race: White Pt. Location: Patient Status: D Ordered Date: 03/06/2022 11:40:00 AM Completed Date: 03/06/2022 01:07 PM Requesting Provider: ISAI SUN Attending Provider: ISAI SUN Report Copy To: Signs & Symptoms: M79.642 Pain in left hand I10 History: Wayan Comments: Evaluate Exam: HAND RIGHT 3 VWS ======== HAND RIGHT 3 VWS 03/06/2022 1:07 PM CLINICAL INDICATIONS: M79.642 Pain in right hand I10 TECHNOLOGIST COMMENTS: pain in base of 1st digit of both hands QUESTION FOR THE RADIOLOGIST: Evaluate PROTOCOL: AP,Lateral and Oblique views were obtained. COMPARISON: None FINDINGS: No acute fracture or dislocation is seen. Carpal bones appear to be in proper anatomic alignment. No significant soft tissue swelling is seen. There are degenerative changes seen at the first CMC joint including osteophytosis. IMPRESSION: Degenerative changes seen at the first CMC joint. Approved by:Edilia Gasca03/07/2022 10:53 AM. I, Tika Larson,have reviewed the image(s) and agree with the findings in this report. Electronically signed: Tika Larson. Transcribed by: [email or web address], User Resident: EDILIA REDMOND Electronically Signed by: TIKA LARSON @ 03/07/2022 11:48 AM I personally read this/these film(s) with this resident Normal [facility] Comment on above: Order Comment: Evalu ate Urine culture routineOrdered By: Jorgito Sanchez on 03-03-2022 Bacteria identified Cx Nom (U) 2 Days [facility] Urinalysis - AUTOMATEDon Appearance (U) slightly cloudy [employer] Other Bilirubin Ql (U) Negative [employer] Other Color (U) dark yellow [employer] Other Glucose Ql (U) Negative [employer] Other Hemoglobin Ql (U) trace-intact [employer] Other Ketones Ql (U) Negative [employer] Other Leukocyte esterase Test strip Ql (U) small [employer] Other Nitrite Ql (U) Negative [employer] Other pH (U) 7.5 [pH] [employer] Other Protein Ql (U) Negative [employer] Other Specific gravity (U) [Rel density] 1.020 [employer] Other Urobilinogen (U) [Mass/Vol] 1.0 mg/dL [employer] Other Urinalysis - AUTOMATED [facility] [employer] Other COVID + FLU Quick Testingon 09-11-2021 SARS-CoV-2 (COVID-19) RNA DEBBIE+probe Ql (Unsp spec) Negative [facility] [employer] Other COVID + FLU Quick Testing Negative [facility] [employer] Other Albumin [Mass/volume] in Ser um or Plasmaon 07-06-2020 Albumin [Mass/Vol] 3.8 g/dL 3.2-5.5 [facility] Creatinine and Glomerular fi ltration rate.predicted panel (S/P/Bld)on 07-06-2020 Creatinine [Mass/Vol] 0.52 mg/dL 0.44-1.03 [facility] Estimated glomerular filtrat ion rate (GFR) non- Americanon 07-06-2020 GFR/1.73 sq M.predicted among non-blacks MDRD (S/P/Bld) [Vol rate/Area] mL/min/{1.73_m2} [facility] Globulin Calc (S) [Mass/Vol] on 07-06-2020 Globulin (S) [Mass/Vol] 2.8 g/dL [facility] Glucose mean value [Mass/vol ume] in Blood Estimated from glycated hemoglobinon 07-06-2020 Average glucose Estimated from glycated hemoglobin (Bld) [Mass/Vol] 140 mg/dL [facility] Hemoglobin A1c percentageon 07-06-2020 HbA1c (Bld) [Mass fraction] 6.5 % 4.3-5.6 [facility] Comment on above: Increased risk for d iabetes: 5.7 - 6.4 diabetes: >6.4 glycemic control for adults with diabetes: <7.0 Increased risk for d iabetes: 5.7 - 6.4diabetes: >6.4glycemic control for adults with diabetes: <7.0 Laboratory - Chemistry and C hemistry - challengeon 07-06-2020 Cobalamin (Vitamin B12) [Mass/Vol] 188 pg/mL 180-914 [facility] GFR/1.73 sq M.predicted MDRD (S/P/Bld) [Vol rate/Area] mL/min/{1.73_m2} [facility] Comment on above: GFR estimated refere nce range: According to KDOQI guidelines, <60 ml/min/1.73m2 is sufficient to diagnose a patient with chronic kidney disease. No Panel Informationon 07-06 Pharmacy Creatinine Clearance (Chem N/A [facility] Protein [Mass/volume] in Ser um or Plasmaon 07-06-2020 Protein [Mass/Vol] 6.6 g/dL 6.1-7.9 [facility] Serum or plasma alanine cochran otransferase measurement without P-5'-P (enzymatic activion 07-06-2020 ALT No additional P-5'-P [Catalytic activity/Vol] 17 U/L 10-60 [facility] Serum or plasma albumin/glob ulin mass ratioon 07-06-2020 Albumin/Globulin [Mass ratio] 1.4 {ratio} [facility] Serum or plasma alkaline donta sphatase measurement (enzymatic activity/volume)on 07-06-2020 ALP [Catalytic activity/Vol] 84 U/L 32-92 [facility] Serum or plasma aspartate am inotransferase measurement (enzymatic activity/volume)on 07-06-2020 AST [Catalytic activity/Vol] 23 U/L 10-42 [facility] Serum or plasma calcium pauline urement (mass/volume)on 07-06-2020 Calcium [Mass/Vol] 9.3 mg/dL 8.2-10.2 [facility] Serum or plasma chloride candis surement (moles/volume)on 07-06-2020 Chloride [Moles/Vol] 100 mmol/L 95-114 [facility] Serum or plasma glucose pauline urement (mass/volume)on 07-06-2020 Glucose [Mass/Vol] 130 mg/dL 70-100 [facility] Comment on above: ADA recommended refe rence range Random Glucose Reference Range is dependent on time and content of last meal. Glucose of more than 200 mg/dL in a nonstressed, ambulatory subject supports the diagnosis of Diabetes Mellitus. ADA recommended refe rence rangeRandom Glucose Reference Range is dependent on time and content of last meal. Glucose of more than 200 mg/dL in a nonstressed, ambulatory subject supports the diagnosis of Diabetes Mellitus. Serum or plasma potassium me asurement (moles/volume)on 07-06-2020 Potassium [Moles/Vol] 3.3 mmol/L 3.5-5.1 [facility] Serum or plasma sodium measu rement (moles/volume)on 07-06-2020 Sodium [Moles/Vol] 136 mmol/L 136-146 [facility] Serum or plasma total biliru bin measurement (mass/volume)on 07-06-2020 Bilirubin [Mass/Vol] 0.8 mg/dL 0.3-1.2 [facility] Serum or plasma total carbon dioxide measurement (moles/volume)on 07-06-2020 CO2 [Moles/Vol] 26.4 mmol/L 22.0-30.0 [facility] Serum or plasma urea nitroge n measurement (mass/volume)on 07-06-2020 Urea nitrogen [Mass/Vol] 8 mg/dL 9- [facility] Vital Signs Date Time Vital Sign Value Performing Clinician Facility 03-31-2024 17:07-0400 Body mass index (BMI) [Ratio] 39.33 kg/m2 Johnny Spivey APRN.CNP Work Phone: [facility] 03-31-2024 17:07-0400 Body weight 100.7 kg Johnny Spivey APRN.CNP Work Phone: [facility] 03-31-2024 17:07-0400 Diastolic blood pressure 38 mm[Hg] Johnny Spivey APRN.RISK MANAGEMENT ANALYST Work Phone: [facility] 03-31-2024 17:07-0400 Heart rate 68 /min Johnny Spivey APRN.CNP Work Phone: [facility] 03-31-2024 17:07-0400 Systolic blood pressure 106 mm[Hg] Johnny Spivey APRN.RISK MANAGEMENT ANALYST Work Phone: [facility] 03-23-2024 10:57-0400 Body height 160.02 cm [facility] Work Phone: [facility] 03-23-2024 10:57-0400 Body mass index (BMI) [Ratio] 38.9 kg/m2 [facility] Work Phone: [facility] 03-23-2024 10:57-0400 Body temperature 98 [degF] [facility] Work Phone: [facility] 03-23-2024 10:57-0400 Body weight 99.79 kg [facility] Work Phone: [facility] 03-23-2024 10:57-0400 Diastolic blood pressure 74 mm[Hg] [facility] Work Phone: [facility] 03-23-2024 10:57-0400 Heart rate 80 /min [facility] Work Phone: [facility] 03-23-2024 10:57-0400 SaO2% (BldA) [Mass fraction] 98 % [facility] Work Phone: [facility] 03-23-2024 10:57-0400 Systolic blood pressure 132 mm[Hg] [facility] Work Phone: [facility] 03-12-2024 09:03-0400 Body height 160.02 cm [facility] Work Phone: [facility] 03-12-2024 09:03-0400 Body temperature 98.2 [degF] [facility] Work Phone: [facility] 03-12-2024 09:03-0400 Body weight 100.6 kg [facility] Work Phone: [facility] 03-12-2024 09:03-0400 Diastolic blood pressure 59 mm[Hg] [facility] Work Phone: [facility] 03-12-2024 09:03-0400 Heart rate 78 /min [facility] Work Phone: [facility] 03-12-2024 09:03-0400 Respiratory rate 18 /min [facility] Work Phone: [facility] 03-12-2024 09:03-0400 SaO2% (BldA) [Mass fraction] 98 % [facility] Work Phone: [facility] 03-12-2024 09:03-0400 Systolic blood pressure 121 mm[Hg] [facility] Work Phone: [facility] 03-12-2024 00:14-0400 Body height 160.02 cm [facility] Work Phone: [facility] 03-12-2024 00:14-0400 Body temperature 97.5 [degF] [facility] Work Phone: [facility] 03-12-2024 00:14-0400 Body weight 102.05 kg [facility] Work Phone: [facility] 03-12-2024 00:14-0400 Diastolic blood pressure 58 mm[Hg] [facility] Work Phone: [facility] 03-12-2024 00:14-0400 Heart rate 86 /min [facility] Work Phone: [facility] 03-12-2024 00:14-0400 Respiratory rate 20 /min [facility] Work Phone: [facility] 03-12-2024 00:14-0400 SaO2% (BldA) [Mass fraction] 98 % [facility] Work Phone: [facility] 03-12-2024 00:14-0400 Systolic blood pressure 120 mm[Hg] [facility] Work Phone: [facility] 02-18-2024 15:41-0400 Body height 160.02 cm [facility] Work Phone: [facility] 02-18-2024 15:41-0400 Body mass index (BMI) [Ratio] 38.7 kg/m2 [facility] Work Phone: [facility] 02-18-2024 15:41-0400 Body weight 99.02 kg [facility] Work Phone: [facility] 02-18-2024 15:41-0400 Diastolic blood pressure 67 mm[Hg] [facility] Work Phone: [facility] 02-18-2024 15:41-0400 Heart rate 96 /min [facility] Work Phone: [facility] 02-18-2024 15:41-0400 Respiratory rate 18 /min [facility] Work Phone: [facility] 02-18-2024 15:41-0400 SaO2% (BldA) [Mass fraction] 100 % [facility] Work Phone: [facility] 02-18-2024 15:41-0400 Systolic blood pressure 120 mm[Hg] [facility] Work Phone: [facility] 02-15-2024 20:25-0400 Body height 160.02 cm [facility] Work Phone: [facility] 02-15-2024 20:25-0400 Body temperature 98.3 [degF] [facility] Work Phone: [facility] 02-15-2024 20:25-0400 Body weight 98.3 kg [facility] Work Phone: [facility] 02-15-2024 20:25-0400 Diastolic blood pressure 53 mm[Hg] [facility] Work Phone: [facility] 02-15-2024 20:25-0400 Heart rate 90 /min [facility] Work Phone: [facility] 02-15-2024 20:25-0400 Respiratory rate 18 /min [facility] Work Phone: [facility] 02-15-2024 20:25-0400 SaO2% (BldA) [Mass fraction] 99 % [facility] Work Phone: [facility] 02-15-2024 20:25-0400 Systolic blood pressure 126 mm[Hg] [facility] Work Phone: [facility] 01-28-2024 16:56-0400 Diastolic blood pressure 59 mm[Hg] Johnny [place] 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 Work Phone: [facility] 01-28-2024 16:56-0400 Heart rate 93 /min Johnny [place] 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 Work Phone: [facility] 01-28-2024 16:56-0400 Respiratory rate 16 /min Johnny Robin 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 Work Phone: [facility] 01-28-2024 16:56-0400 Systolic blood pressure 105 mm[Hg] Johnny Robin 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 Work Phone: [facility] 01-03-2024 18:35-0400 Body height 160.02 cm [facility] Work Phone: [facility] 01-03-2024 18:35-0400 Body temperature 98.2 [degF] [facility] Work Phone: [facility] 01-03-2024 18:35-0400 Body weight 100.6 kg [facility] Work Phone: [facility] 01-03-2024 18:35-0400 Diastolic blood pressure 57 mm[Hg] [facility] Work Phone: [facility] 01-03-2024 18:35-0400 Heart rate 99 /min [facility] Work Phone: [facility] 01-03-2024 18:35-0400 Respiratory rate 20 /min [facility] Work Phone: [facility] 01-03-2024 18:35-0400 SaO2% (BldA) [Mass fraction] 100 % [facility] Work Phone: [facility] 01-03-2024 18:35-0400 Systolic blood pressure 127 mm[Hg] [facility] Work Phone: [facility] 10-28-2023 10:03-0400 Body height 160.02 cm [facility] Work Phone: [facility] 10-28-2023 10:03-0400 Body mass index (BMI) [Ratio] 39 kg/m2 [facility] Work Phone: [facility] 10-28-2023 10:03-0400 Body weight 99.93 kg [facility] Work Phone: [facility] 10-28-2023 10:03-0400 Diastolic blood pressure 66 mm[Hg] [facility] Work Phone: [facility] 10-28-2023 10:03-0400 Heart rate 82 /min [facility] Work Phone: [facility] 10-28-2023 10:03-0400 SaO2% (BldA) [Mass fraction] 98 % [facility] Work Phone: [facility] 10-28-2023 10:03-0400 Systolic blood pressure 93 mm[Hg] [facility] Work Phone: [facility] 10-27-2023 20:31-0400 Body height 160.02 cm [facility] Work Phone: [facility] 10-27-2023 20:31-0400 Body temperature 97.6 [degF] [facility] Work Phone: [facility] 10-27-2023 20:31-0400 Body weight 101.8 kg [facility] Work Phone: [facility] 10-27-2023 20:31-0400 Diastolic blood pressure 58 mm[Hg] [facility] Work Phone: [facility] 10-27-2023 20:31-0400 Heart rate 90 /min [facility] Work Phone: [facility] 10-27-2023 20:31-0400 Respiratory rate 17 /min [facility] Work Phone: [facility] 10-27-2023 20:31-0400 SaO2% (BldA) [Mass fraction] 100 % [facility] Work Phone: [facility] 10-27-2023 20:31-0400 Systolic blood pressure 147 mm[Hg] Services [facility] Work Phone: [facility] 10-22-2023 13:00-0400 Heart rate 90 /min Mode Adler PT Work Phone: [facility] 10-22-2023 13:00-0400 SaO2% (BldA) [Mass fraction] 93 % Mode Opfer PT Work Phone: [facility] 10-15-2023 09:02-0400 Diastolic blood pressure 71 mm[Hg] Melony Alcantaraanchick PA-C Work Phone: [facility] 10-15-2023 09:02-0400 Heart rate 80 /min Melony Evanchick PA-C Work Phone: [facility] 10-15-2023 09:02-0400 Systolic blood pressure 102 mm[Hg] Melony Evanchick PA-C Work Phone: [facility] 10-11-2023 14:54-0500 Diastolic blood pressure 45 mm[Hg] Carter Hall MD Work Phone: [facility] 10-11-2023 14:54-0500 Heart rate 85 /min Carter Hall MD Work Phone: [facility] 10-11-2023 14:54-0500 Respiratory rate 16 /min Carter Hall MD Work Phone: [facility] 10-11-2023 14:54-0500 Systolic blood pressure 110 mm[Hg] Carter Hall MD Work Phone: [facility] 10-06-2023 17:33-0500 Body height 160.02 cm Services [facility] Work Phone: [facility] 10-06-2023 17:33-0500 Body temperature 97.6 [degF] Services [facility] Work Phone: [facility] 10-06-2023 17:33-0500 Body weight 98.15 kg [facility] Work Phone: [facility] 10-06-2023 17:33-0500 Diastolic blood pressure 76 mm[Hg] [facility] Work Phone: [facility] 10-06-2023 17:33-0500 Heart rate 103 /min [facility] Work Phone: [facility] 10-06-2023 17:33-0500 Respiratory rate 16 /min [facility] Work Phone: [facility] 10-06-2023 17:33-0500 SaO2% (BldA) [Mass fraction] 99 % [facility] Work Phone: [facility] 10-06-2023 17:33-0500 Systolic blood pressure 124 mm[Hg] Services [facility] Work Phone: [facility] 09-02-2023 10:15-0500 Body height 160.02 cm Michael Morley Other [facility] 09-02-2023 10:15-0500 Body mass index (BMI) [Ratio] 39.36 kg/m2 Michael Morley Other [employer] Other 09-02-2023 10:15-0500 Body weight 100.79 kg Michael Morley Other [employer] Other 09-02-2023 10:15-0500 Body weight 100.78 kg [facility] [employer] Work Phone: [facility] 09-02-2023 10:15-0500 Diastolic blood pressure 47 mm[Hg] Michael Morley Other [facility] 09-02-2023 10:15-0500 Respiratory rate 18 /min Michael Morley Other [employer] Other 09-02-2023 10:15-0500 SaO2% (BldA) [Mass fraction] 100 % Michael Morley Other [employer] Other 09-02-2023 10:15-0500 Systolic blood pressure 108 mm[Hg] Michael Morley Other [facility] 08-08-2023 08:47-0500 Diastolic blood pressure 55 mm[Hg] Na[facility] 08-08-2023 08:47-0500 Heart rate 87 /min [facility] 08-08-2023 08:47-0500 Respiratory rate 18 /min [facility] 08-08-2023 08:47-0500 SaO2% (BldA) [Mass fraction] 99 % [facility] 08-08-2023 08:47-0500 Systolic blood pressure 119 mm[Hg] [facility] 08-08-2023 01:34-0500 Body temperature 97.6 [degF] [facility] 08-07-2023 23:37-0500 Body height 160.02 cm [facility] 08-07-2023 23:37-0500 Body weight 99.79 kg [facility] 06-10-2023 13:30-0500 Body height 160.02 cm Michael Morley Other [employer] Other 06-10-2023 13:30-0500 Body mass index (BMI) [Ratio] 39 kg/m2 Michael Morley Other [employer] Other 06-10-2023 13:30-0500 Body weight 99.88 kg Michael Morley Other [employer] Other 06-10-2023 13:30-0500 Diastolic blood pressure 63 mm[Hg] Michael Penadiff Other [employer] Other 06-10-2023 13:30-0500 Respiratory rate 18 /min Michael Morley Other [employer] Other 06-10-2023 13:30-0500 SaO2% (BldA) [Mass fraction] 98 % Michael Penadiff Other [employer] Other 06-10-2023 13:30-0500 Systolic blood pressure 88 mm[Hg] Michael Penadiff Other [employer] Other 06-06-2023 11:00-0400 Body height 160.02 cm Reyna Sofia Other [employer] Other 06-06-2023 11:00-0400 Body mass index (BMI) [Ratio] 38.44 kg/m2 Reyna Sofia Other [employer] Other 06-06-2023 11:00-0400 Body temperature 97.3 [degF] Reyna Sofia Other [employer] Other 06-06-2023 11:00-0400 Body weight 98.43 kg Reyna Sofia Other [employer] Other 06-06-2023 11:00-0400 Diastolic blood pressure 62 mm[Hg] Reyna Sofia Other [employer] Other 06-06-2023 11:00-0400 Respiratory rate 20 /min Reyna Sofia Other [employer] Other 06-06-2023 11:00-0400 SaO2% (BldA) [Mass fraction] 99 % Reyna Sofia Other [facility] [employer] Other 06-06-2023 11:00-0400 Systolic blood pressure 102 mm[Hg] Reyna Sofia Other [facility] [employer] Other 04-08-2023 17:09-0400 Body height 160.02 cm DO Jorgito Schwerer Work Phone: [facility] 04-08-2023 17:09-0400 Body temperature 98.2 [degF] DO Jorgito Schwerer Work Phone: [facility] 04-08-2023 17:09-0400 Body weight 102.45 kg DO Jorgito Schwerer Work Phone: [facility] 04-08-2023 17:09-0400 Diastolic blood pressure 62 mm[Hg] DO Jorgito Schwerer Work Phone: [facility] 04-08-2023 17:09-0400 Heart rate 93 /min DO Jorgito Schwerer Work Phone: [facility] 04-08-2023 17:09-0400 Respiratory rate 16 /min DO Jorgito Schwerer Work Phone: [facility] 04-08-2023 17:09-0400 SaO2% (BldA) [Mass fraction] 94 % DO Jorgito Schwerer Work Phone: [facility] 04-08-2023 17:09-0400 Systolic blood pressure 122 mm[Hg] DO Jorgito Schwerer Work Phone: [facility] 03-23-2023 22:12-0400 Body height 160.02 cm DO Jorgito Schwerer Work Phone: [facility] 03-23-2023 22:12-0400 Body temperature 98 [degF] DO Jorgito Schwerer Work Phone: [facility] 03-23-2023 22:12-0400 Body weight 102.3 kg DO Jorgito Schwerer Work Phone: [facility] 03-23-2023 22:12-0400 Diastolic blood pressure 60 mm[Hg] DO Jorgito Schwerer Work Phone: [facility] 03-23-2023 22:12-0400 Heart rate 83 /min DO Jorgito Schwerer Work Phone: [facility] 03-23-2023 22:12-0400 Respiratory rate 20 /min DO Jorgito Schwerer Work Phone: [facility] 03-23-2023 22:12-0400 SaO2% (BldA) [Mass fraction] 98 % DO Jorgito Schwerer Work Phone: [facility] 03-23-2023 22:12-0400 Systolic blood pressure 137 mm[Hg] DO Jorgito Schwerer Work Phone: [facility] 03-16-2023 17:49-0400 Body temperature 98.6 [degF] DO Jorgito Schwerer Work Phone: [facility] 03-16-2023 17:49-0400 Diastolic blood pressure 80 mm[Hg] DO Jorgito Schwerer Work Phone: [facility] 03-16-2023 17:49-0400 Heart rate 90 /min DO Jorgito Schwerer Work Phone: [facility] 03-16-2023 17:49-0400 Respiratory rate 20 /min DO Jorgito Schwerer Work Phone: [facility] 03-16-2023 17:49-0400 SaO2% (BldA) [Mass fraction] 97 % DO Jorgito Schwerer Work Phone: [facility] 03-16-2023 17:49-0400 Systolic blood pressure 130 mm[Hg] DO Jorgito Schwerer Work Phone: [facility] 02-27-2023 09:45-0400 Body height 160.02 cm Michael Morley Other [employer] Other 02-27-2023 09:45-0400 Body mass index (BMI) [Ratio] 40.08 kg/m2 Michael Morley Other [employer] Other 02-27-2023 09:45-0400 Body weight 102.65 kg Michael Morley Other [employer] Other 02-27-2023 09:45-0400 Diastolic blood pressure 75 mm[Hg] Michael Morley Other [employer] Other 02-27-2023 09:45-0400 Respiratory rate 18 /min Michael Peyman Other [employer] Other 02-27-2023 09:45-0400 SaO2% (BldA) [Mass fraction] 99 % Michael Morley Other [employer] Other 02-27-2023 09:45-0400 Systolic blood pressure 118 mm[Hg] Micahel Morley Other [employer] Other 02-23-2023 20:43-0400 Heart rate 85 /min DO Jorgito Schwerer Work Phone: [facility] 02-23-2023 20:21-0400 Body height 160.02 cm DO Jorgito Schwerer Work Phone: [facility] 02-23-2023 20:21-0400 Body temperature 99.1 [degF] DO Jorgito Schwerer Work Phone: [facility] 02-23-2023 20:21-0400 Body weight 11.55 kg DO Jorgito Schwerer Work Phone: [facility] 02-23-2023 20:21-0400 Diastolic blood pressure 60 mm[Hg] DO Jorgito Schwerer Work Phone: [facility] 02-23-2023 20:21-0400 Respiratory rate 20 /min DO Jorgito Schwerer Work Phone: [facility] 02-23-2023 20:21-0400 SaO2% (BldA) [Mass fraction] 98 % DO Jorgito Schwerer Work Phone: [facility] 02-23-2023 20:21-0400 Systolic blood pressure 128 mm[Hg] DO Jorgito Schwerer Work Phone: [facility] 02-04-2023 13:45-0400 Body height 160.02 cm Jorgito Schwerer Other [employer] Other 02-04-2023 13:45-0400 Body mass index (BMI) [Ratio] 38.97 kg/m2 Jorgito Schwerer Other [employer] Other 02-04-2023 13:45-0400 Body weight 99.79 kg Jorgito Schwerer Other [employer] Other 02-04-2023 13:45-0400 Diastolic blood pressure 72 mm[Hg] Jorgito Schwerer Other [employer] Other 02-04-2023 13:45-0400 Respiratory rate 18 /min Jorgito Schwerer Other [facility] [employer] Other 02-04-2023 13:45-0400 SaO2% (BldA) [Mass fraction] 96 % Jorgito Schwerer Other [facility] [employer] Other 02-04-2023 13:45-0400 Systolic blood pressure 126 mm[Hg] Jorgito Schwerer Other [facility] [employer] Other 01-31-2023 23:15-0400 Body height 160.02 cm DO Jorgito Schwerer Work Phone: [facility] 01-31-2023 23:15-0400 Body temperature 97.2 [degF] DO Jorgito Schwerer Work Phone: [facility] 01-31-2023 23:15-0400 Body weight 98.55 kg DO Jorgito Schwerer Work Phone: [facility] 01-31-2023 23:15-0400 Diastolic blood pressure 64 mm[Hg] DO Jorgito Schwerer Work Phone: [facility] 01-31-2023 23:15-0400 Heart rate 96 /min DO Jorgito Schwerer Work Phone: [facility] 01-31-2023 23:15-0400 SaO2% (BldA) [Mass fraction] 96 % DO Jorgito Schwerer Work Phone: [facility] 01-31-2023 23:15-0400 Systolic blood pressure 149 mm[Hg] DO Jorgito Schwerer Work Phone: [facility] 01-28-2023 21:12-0400 Body height 160.02 cm DO Jorgito Schwerer Work Phone: [facility] 01-28-2023 21:12-0400 Body temperature 98.7 [degF] DO Jorgito Schwerer Work Phone: [facility] 01-28-2023 21:12-0400 Body weight 99.7 kg DO Jorgito Schwerer Work Phone: [facility] 01-28-2023 21:12-0400 Diastolic blood pressure 54 mm[Hg] DO Jorgito Schwerer Work Phone: [facility] 01-28-2023 21:12-0400 Heart rate 84 /min DO Jorgito Schwerer Work Phone: [facility] 01-28-2023 21:12-0400 Respiratory rate 18 /min DO Jorgito Schwerer Work Phone: [facility] 01-28-2023 21:12-0400 SaO2% (BldA) [Mass fraction] 99 % DO Jorgito Schwerer Work Phone: [facility] 01-28-2023 21:12-0400 Systolic blood pressure 120 mm[Hg] DO Jorgito Schwerer Work Phone: [facility] 01-02-2023 10:15-0400 Body height 160.02 cm Kenny Villarreal Other [employer] Other 01-02-2023 10:15-0400 Body mass index (BMI) [Ratio] 38.79 kg/m2 Kenny Villarreal Other [employer] Other 01-02-2023 10:15-0400 Body weight 99.34 kg Kenny Villarreal Other [employer] Other 11-05-2022 01:03-0400 Diastolic blood pressure 50 mm[Hg] DO Jorgito Schwerer Work Phone: [facility] 11-05-2022 01:03-0400 Heart rate 88 /min DO Jorgito Schwerer Work Phone: [facility] 11-05-2022 01:03-0400 Respiratory rate 20 /min DO Jorgito Schwerer Work Phone: [facility] 11-05-2022 01:03-0400 SaO2% (BldA) [Mass fraction] 98 % DO Jorgito Schwerer Work Phone: [facility] 11-05-2022 01:03-0400 Systolic blood pressure 135 mm[Hg] DO Jorgito Schwerer Work Phone: [facility] 11-04-2022 21:34-0400 Body height 160.02 cm DO Jorgito Schwerer Work Phone: [facility] 11-04-2022 21:34-0400 Body temperature 97.2 [degF] DO Jorgito Schwerer Work Phone: [facility] 11-04-2022 21:34-0400 Body weight 95.25 kg DO Jorgito Schwerer Work Phone: [facility] 11-03-2022 18:20-0400 Body temperature 97.6 [degF] DO Jorgito Schwerer Work Phone: [facility] 11-03-2022 18:20-0400 Diastolic blood pressure 74 mm[Hg] DO Jorgito Schwerer Work Phone: [facility] 11-03-2022 18:20-0400 Heart rate 67 /min DO Jorgito Schwerer Work Phone: [facility] 11-03-2022 18:20-0400 Respiratory rate 16 /min DO Jorgito Schwerer Work Phone: [facility] 11-03-2022 18:20-0400 SaO2% (BldA) [Mass fraction] 97 % DO Jorgito Schwerer Work Phone: [facility] 11-03-2022 18:20-0400 Systolic blood pressure 111 mm[Hg] DO Jorgito Schwerer Work Phone: [facility] 11-03-2022 01:45-0400 Body height 160.02 cm DO Jorgito Schwerer Work Phone: [facility] 11-03-2022 01:45-0400 Body weight 95.7 kg DO Jorgito Schwerer Work Phone: [facility] 11-02-2022 23:52-0400 Body temperature 98.7 [degF] DO Jorgito Schwerer Work Phone: [phone] [place] [address] 11-02-2022 23:52-0400 Diastolic blood pressure 51 mm[Hg] DO Jorgito Schwerer Work Phone: [facility] 11-02-2022 23:52-0400 Heart rate 70 /min DO Jorgito Schwerer Work Phone: [facility] 11-02-2022 23:52-0400 Respiratory rate 20 /min DO Jorgito Schwerer Work Phone: [facility] 11-02-2022 23:52-0400 SaO2% (BldA) [Mass fraction] 97 % DO Jorgito Schwerer Work Phone: [facility] 11-02-2022 23:52-0400 Systolic blood pressure 124 mm[Hg] DO Jorgito Schwerer Work Phone: [facility] 11-02-2022 21:34-0400 Body height 160.02 cm DO Jorgito Schwerer Work Phone: [facility] 11-02-2022 21:34-0400 Body weight 95.75 kg DO Jorgito Schwerer Work Phone: [facility] 10-20-2022 03:47-0400 Diastolic blood pressure 68 mm[Hg] DO Jorgito Schwerer Work Phone: [facility] 10-20-2022 03:47-0400 Heart rate 59 /min DO Jorgito Schwerer Work Phone: [facility] 10-20-2022 03:47-0400 Respiratory rate 16 /min DO Jorgito Schwerer Work Phone: [facility] 10-20-2022 03:47-0400 SaO2% (BldA) [Mass fraction] 97 % DO Jorgito Schwerer Work Phone: [facility] 10-20-2022 03:47-0400 Systolic blood pressure 103 mm[Hg] DO Jorgito Schwerer Work Phone: [facility] 10-19-2022 22:36-0400 Body height 160.02 cm DO Jorgito Schwerer Work Phone: [facility] 10-19-2022 22:36-0400 Body temperature 97.8 [degF] DO Jorgito Schwerer Work Phone: [facility] 10-19-2022 22:36-0400 Body weight 94.5 kg DO Jorgito Schwerer Work Phone: [facility] 10-16-2022 12:15-0400 Body height 160.02 cm Michael Morley Other [employer] Other 10-16-2022 12:15-0400 Body mass index (BMI) [Ratio] 36.84 kg/m2 Michael Morley Other [employer] Other 10-16-2022 12:15-0400 Body weight 94.35 kg Michael Morley Other [employer] Other 10-16-2022 12:15-0400 Diastolic blood pressure 50 mm[Hg] Michael Morley Other [employer] Other 10-16-2022 12:15-0400 Respiratory rate 18 /min Michael Morley Other [employer] Other 10-16-2022 12:15-0400 SaO2% (BldA) [Mass fraction] 100 % Michael Morley Other [employer] Other 10-16-2022 12:15-0400 Systolic blood pressure 89 mm[Hg] Michael Morley Other [employer] Other 09-05-2022 12:00-0500 Body height 160.02 cm Kenny Villarreal Other [employer] Other 09-05-2022 12:00-0500 Body mass index (BMI) [Ratio] 37.2 kg/m2 Kenny Villarreal Other [employer] Other 09-05-2022 12:00-0500 Body weight 95.26 kg Kenny Villarreal Other [employer] Other 08-24-2022 12:15-0500 Body height 160.02 cm Jorgito Sanchez Other [employer] Other 08-24-2022 12:15-0500 Body temperature 97.9 [degF] Jorgito Sanchez Other [employer] Other 08-24-2022 12:15-0500 Diastolic blood pressure 80 mm[Hg] Jorgito Schwerer Other [employer] Other 08-24-2022 12:15-0500 SaO2% (BldA) [Mass fraction] 99 % Jorgito Schwerer Other [employer] Other 08-24-2022 12:15-0500 Systolic blood pressure 122 mm[Hg] Jorgito Schwerer Other [employer] Other 08-22-2022 21:24-0500 Body height 160.02 cm DO Jorgito Schwerer Work Phone: [facility] 08-22-2022 21:24-0500 Body temperature 98.6 [degF] DO Jorgito Schwerer Work Phone: [facility] 08-22-2022 21:24-0500 Body weight 96.8 kg DO Jorgito Schwerer Work Phone: [facility] 08-22-2022 21:24-0500 Diastolic blood pressure 66 mm[Hg] DO Jorgito Schwerer Work Phone: [facility] 08-22-2022 21:24-0500 Heart rate 101 /min DO Jorgito Schwerer Work Phone: [facility] 08-22-2022 21:24-0500 Respiratory rate 20 /min DO Jorgito Schwerer Work Phone: [facility] 08-22-2022 21:24-0500 SaO2% (BldA) [Mass fraction] 95 % DO Jorgito Schwerer Work Phone: [facility] 08-22-2022 21:24-0500 Systolic blood pressure 135 mm[Hg] DO Jorgito Haynesr Work Phone: [facility] 08-22-2022 11:15-0500 Body height 160.02 cm Michael Morley Other [employer] Other 08-22-2022 11:15-0500 Body mass index (BMI) [Ratio] 37.5 kg/m2 Michael Morley Other [employer] Other 08-22-2022 11:15-0500 Body weight 96.03 kg Michael Morley Other [employer] Other 08-22-2022 11:15-0500 Diastolic blood pressure 40 mm[Hg] Michael Morley Other [employer] Other 08-22-2022 11:15-0500 Respiratory rate 18 /min Michael Morley Other [employer] Other 08-22-2022 11:15-0500 SaO2% (BldA) [Mass fraction] 98 % Michael Morley Other [employer] Other 08-22-2022 11:15-0500 Systolic blood pressure 96 mm[Hg] Michael Morley Other [employer] Other 08-07-2022 11:30-0500 Body height 160.02 cm Jorgito Sanchez Other [employer] Other 08-07-2022 11:30-0500 Body temperature 97.2 [degF] Jorgito Levineerer Other [employer] Other 08-07-2022 11:30-0500 Diastolic blood pressure 72 mm[Hg] Jorgito Schwerer Other [employer] [facility] [employer] Other 08-07-2022 11:30-0500 SaO2% (BldA) [Mass fraction] 98 % Jorgito Schwerer Other [employer] [facility] [employer] Other 08-07-2022 11:30-0500 Systolic blood pressure 112 mm[Hg] Jorgito Schwerer Other [facility] [employer] Other 07-22-2022 21:28-0500 Body height 160.02 cm DO Jorgito Schwerer Work Phone: [facility] 07-22-2022 21:28-0500 Body temperature 97.5 [degF] DO Jorgito Schwerer Work Phone: [facility] 07-22-2022 21:28-0500 Body weight 95.25 kg DO Jorgito Schwerer Work Phone: [facility] 07-22-2022 21:28-0500 Diastolic blood pressure 91 mm[Hg] DO Jorgito Schwerer Work Phone: [facility] 07-22-2022 21:28-0500 Heart rate 87 /min DO Jorgito Schwerer Work Phone: [facility] 07-22-2022 21:28-0500 Respiratory rate 20 /min DO Jorgito Schwerer Work Phone: [facility] 07-22-2022 21:28-0500 SaO2% (BldA) [Mass fraction] 100 % DO Jorgito Schwerer Work Phone: [facility] 07-22-2022 21:28-0500 Systolic blood pressure 153 mm[Hg] DO Jorgito Schwerer Work Phone: [facility] 07-05-2022 13:45-0500 Body height 160.02 cm Jorgito Schwerer Other [employer] Other 07-05-2022 13:45-0500 Body mass index (BMI) [Ratio] 36.97 kg/m2 Jorgito Schwerer Other [employer] Other 07-05-2022 13:45-0500 Body temperature 98 [degF] Jorgito Schwerer Other [employer] Other 07-05-2022 13:45-0500 Body weight 94.67 kg Jorgito Schwerer Other [employer] Other 07-05-2022 13:45-0500 Diastolic blood pressure 70 mm[Hg] Jorgito Schwerer Other [employer] Other 07-05-2022 13:45-0500 Respiratory rate 20 /min Jorgito Schwerer Other [employer] Other 07-05-2022 13:45-0500 SaO2% (BldA) [Mass fraction] 98 % Jorgito Schwerer Other [employer] Other 07-05-2022 13:45-0500 Systolic blood pressure 106 mm[Hg] Jorgito Schwerer Other [employer] Other 06-29-2022 21:17-0500 Diastolic blood pressure 78 mm[Hg] DO Jorgito Schwerer Work Phone: [facility] 06-29-2022 21:17-0500 Heart rate 97 /min DO Jorgito Schwerer Work Phone: [facility] 06-29-2022 21:17-0500 Respiratory rate 18 /min DO Jorgito Schwerer Work Phone: [facility] 06-29-2022 21:17-0500 SaO2% (BldA) [Mass fraction] 100 % DO Jorgito Schwerer Work Phone: [facility] 06-29-2022 21:17-0500 Systolic blood pressure 110 mm[Hg] DO Jorgito Schwerer Work Phone: [facility] 06-29-2022 17:23-0500 Body height 160.02 cm DO Jorgito Schwerer Work Phone: [facility] 06-29-2022 17:23-0500 Body temperature 99.4 [degF] DO Jorgito Schwerer Work Phone: [facility] 06-29-2022 17:23-0500 Body weight 92.98 kg DO Jorgito Schwerer Work Phone: [facility] 06-18-2022 15:45-0500 Body height 160.02 cm Jorgito Schwerer Other [employer] Other 06-18-2022 15:45-0500 Body mass index (BMI) [Ratio] 36.77 kg/m2 Jorgito Schwerer Other [employer] Other 06-18-2022 15:45-0500 Body temperature 97.4 [degF] Jorgito Schwerer Other [employer] Other 06-18-2022 15:45-0500 Body weight 94.17 kg Jorgito Schwerer Other [employer] Other 06-18-2022 15:45-0500 Diastolic blood pressure 82 mm[Hg] Jorgito Schwerer Other [employer] Other 06-18-2022 15:45-0500 SaO2% (BldA) [Mass fraction] 99 % Jorgito Schwerer Other [employer] Other 06-18-2022 15:45-0500 Systolic blood pressure 132 mm[Hg] Jorgito Schwerer Other [employer] Other 06-14-2022 01:58-0500 Heart rate 80 /min DO Jorgito Schwerer Work Phone: [facility] 06-14-2022 01:54-0500 Body temperature 97.8 [degF] DO Jorgito Schwerer Work Phone: [facility] 06-14-2022 01:54-0500 Diastolic blood pressure 63 mm[Hg] DO Jorgito Schwerer Work Phone: [facility] 06-14-2022 01:54-0500 Respiratory rate 18 /min DO Jorgito Schwerer Work Phone: [facility] 06-14-2022 01:54-0500 SaO2% (BldA) [Mass fraction] 99 % DO Jorgito Schwerer Work Phone: [facility] 06-14-2022 01:54-0500 Systolic blood pressure 116 mm[Hg] DO Jorgito Schwerer Work Phone: [facility] 06-13-2022 20:38-0500 Body height 160.02 cm DO Jorgito Schwerer Work Phone: [facility] 06-13-2022 20:38-0500 Body weight 93.2 kg DO Jorgito Schwerer Work Phone: [facility] 04-26-2022 11:00-0400 Body height 160.02 cm Issa Mckenzie Other [employer] Other 04-26-2022 11:00-0400 Body mass index (BMI) [Ratio] 36.84 kg/m2 Issa Mckenzie Other [employer] Other 04-26-2022 11:00-0400 Body temperature 96.6 [degF] Issa Mckenzie Other [employer] Other 04-26-2022 11:00-0400 Body weight 94.35 kg Issa Mckenzie Other [employer] Other 04-26-2022 11:00-0400 Diastolic blood pressure 58 mm[Hg] Issa Mckenzie Other [employer] Other 04-26-2022 11:00-0400 SaO2% (BldA) [Mass fraction] 97 % Issa Mckenzie Other [facility] Other 04-26-2022 11:00-0400 Systolic blood pressure 102 mm[Hg] Issa Mckenzie Other [facility] Other 04-04-2022 12:00-0400 Body height 160.02 cm Issa Mckenzie Other [facility] Other 04-04-2022 12:00-0400 Body mass index (BMI) [Ratio] 36.84 kg/m2 Issa Mckenzie Other [facility] Other 04-04-2022 12:00-0400 Body temperature 96.3 [degF] Issa Jenkinskatie Other [facility] Other 04-04-2022 12:00-0400 Body weight 94.35 kg Issa Mckenzie Other [facility] Other 04-04-2022 12:00-0400 Diastolic blood pressure 60 mm[Hg] Issa Jenkinskatie Other [facility] Other 04-04-2022 12:00-0400 SaO2% (BldA) [Mass fraction] 97 % Issa Jenkinskatie Other [facility] Other 04-04-2022 12:00-0400 Systolic blood pressure 104 mm[Hg] Issa Jenkinskatie Other [facility] Other 04-02-2022 14:45-0400 Body height 160.02 cm Jorgito Schwerer Other [facility] Other 04-02-2022 14:45-0400 Body temperature 97.7 [degF] Jorgito Schwerer Other [facility] Other 04-02-2022 14:45-0400 Diastolic blood pressure 76 mm[Hg] Jorgito Schwerer Other [facility] Other 04-02-2022 14:45-0400 SaO2% (BldA) [Mass fraction] 97 % Jorgtio Schwerer Other [facility] Other 04-02-2022 14:45-0400 Systolic blood pressure 122 mm[Hg] Jorgito Schwerer Other [facility] Other 03-08-2022 13:45-0400 Body height 160.02 cm Michael Morley Other [facility] Other 03-08-2022 13:45-0400 Body mass index (BMI) [Ratio] 36.95 kg/m2 Michael Morley Other [facility] Other 03-08-2022 13:45-0400 Body weight 94.62 kg Michael Morley Other [facility] Other 03-08-2022 13:45-0400 Diastolic blood pressure 60 mm[Hg] Michael Morley Other [facility] Other 03-08-2022 13:45-0400 Respiratory rate 18 /min Michael Morley Other [facility] Other 03-08-2022 13:45-0400 SaO2% (BldA) [Mass fraction] 97 % Michael Morley Other [facility] Other 03-08-2022 13:45-0400 Systolic blood pressure 109 mm[Hg] Michael Morley Other [facility] Other 03-01-2022 13:45-0400 Body height 160.02 cm Jorgitoalan Levineereyolanda Other [facility] Other 03-01-2022 13:45-0400 Body mass index (BMI) [Ratio] 36.15 kg/m2 Jorgito Schwerer Other [facility] Other 03-01-2022 13:45-0400 Body temperature 98.3 [degF] Jorgito Schwerer Other [facility] Other 03-01-2022 13:45-0400 Body weight 92.58 kg Jorgito Schwerer Other [facility] Other 03-01-2022 13:45-0400 Diastolic blood pressure 70 mm[Hg] Jorgito Schwerer Other [facility] Other 03-01-2022 13:45-0400 SaO2% (BldA) [Mass fraction] 97 % Jorgito Schwerer Other [facility] Other 03-01-2022 13:45-0400 Systolic blood pressure 110 mm[Hg] Jorgito Schwerer Other [facility] Other 01-22-2022 11:30-0400 Body height 160.02 cm Jorgito Schwerer Other [facility] Other 01-22-2022 11:30-0400 Body mass index (BMI) [Ratio] 37.37 kg/m2 Jorgito Schwerer Other [facility] Other 01-22-2022 11:30-0400 Body temperature 97.8 [degF] Jorgito Schwerer Other [facility] Other 01-22-2022 11:30-0400 Body weight 95.71 kg Jorgito Schwerer Other [facility] Other 01-22-2022 11:30-0400 Diastolic blood pressure 64 mm[Hg] Jorgito Schwerer Other [facility] Other 01-22-2022 11:30-0400 SaO2% (BldA) [Mass fraction] 97 % Jorgito Schwerer Other [facility] Other 01-22-2022 11:30-0400 Systolic blood pressure 96 mm[Hg] Jorgito Schwerer Other [facility] Other 01-05-2022 11:45-0400 Body height 160.02 cm Jorgito Schwerer Other [facility] Other 01-05-2022 11:45-0400 Body mass index (BMI) [Ratio] 37.02 kg/m2 Jorgito Schwerer Other [facility] Other 01-05-2022 11:45-0400 Body temperature 98.2 [degF] Jorgito Schwerer Other [facility] Other 01-05-2022 11:45-0400 Body weight 94.8 kg Jorgito Schwerer Other [facility] Other 01-05-2022 11:45-0400 Diastolic blood pressure 70 mm[Hg] Jorgito Schwerer Other [facility] Other 01-05-2022 11:45-0400 SaO2% (BldA) [Mass fraction] 97 % Jorgito Schwerer Other [facility] Other 01-05-2022 11:45-0400 Systolic blood pressure 112 mm[Hg] Jorgito Schwerer Other [facility] Other 12-19-2021 12:45-0400 Body height 160.02 cm Lety Falk Other [facility] Other 12-19-2021 12:45-0400 Body mass index (BMI) [Ratio] 37.02 kg/m2 Lety Fitt Other [facility] Other 12-19-2021 12:45-0400 Body weight 94.8 kg Lety Fitt Other [facility] Other 12-19-2021 11:30-0400 Body height 160.02 cm Reyna Sofia Other [facility] Other 12-19-2021 11:30-0400 Body mass index (BMI) [Ratio] 36.66 kg/m2 Reyna Sofia Other [facility] Other 12-19-2021 11:30-0400 Body temperature 96.5 [degF] Reyna Sofia Other [facility] Other 12-19-2021 11:30-0400 Body weight 93.9 kg Reyna Sofia Other [facility] Other 12-19-2021 11:30-0400 Diastolic blood pressure 60 mm[Hg] Reyna Sofia Other [facility] Other 12-19-2021 11:30-0400 Respiratory rate 20 /min Reyna Sofia Other [facility] Other 12-19-2021 11:30-0400 SaO2% (BldA) [Mass fraction] 96 % Reyna Sofia Other [facility] Other 12-19-2021 11:30-0400 Systolic blood pressure 102 mm[Hg] Reyna Sofia Other [facility] Other 11-21-2021 12:15-0400 Body height 160.02 cm Michael Penadiff Other [facility] Other 11-21-2021 12:15-0400 Body mass index (BMI) [Ratio] 36.81 kg/m2 Michael Penadiff Other [facility] Other 11-21-2021 12:15-0400 Body weight 94.26 kg Michael Penadiff Other [facility] Other 11-21-2021 12:15-0400 Diastolic blood pressure 54 mm[Hg] Michael Morley Other [facility] Other 11-21-2021 12:15-0400 Respiratory rate 18 /min Michael Mroley Other [facility] Other 11-21-2021 12:15-0400 SaO2% (BldA) [Mass fraction] 97 % Michael Penadiff Other [facility] Other 11-21-2021 12:15-0400 Systolic blood pressure 97 mm[Hg] Michaelrober Morley Other [facility] Other 10-10-2021 14:00-0500 Body height 160.02 cm Michael Peyman Other [facility] Other 10-10-2021 14:00-0500 Body mass index (BMI) [Ratio] 36.75 kg/m2 Michael Peyman Other [facility] Other 10-10-2021 14:00-0500 Body weight 94.12 kg Michael Penadiff Other [facility] Other 10-10-2021 14:00-0500 Diastolic blood pressure 59 mm[Hg] Michael Morley Other [facility] Other 10-10-2021 14:00-0500 Respiratory rate 18 /min Michael Penadiff Other [facility] Other 10-10-2021 14:00-0500 SaO2% (BldA) [Mass fraction] 99 % Michael Penadiff Other [facility] Other 10-10-2021 14:00-0500 Systolic blood pressure 97 mm[Hg] Michael Penadiff Other [facility] Other 09-26-2021 12:45-0500 Body height 160.02 cm Lety Fitt Other [facility] Other 09-26-2021 12:45-0500 Body mass index (BMI) [Ratio] 36.49 kg/m2 Lety Fitt Other [facility] Other 09-26-2021 12:45-0500 Body weight 93.44 kg Lety Fitt Other [facility] Other 09-11-2021 14:45-0500 Body height 160.02 cm Jorgito Sanchez Other [facility] Other 09-11-2021 14:45-0500 Body mass index (BMI) [Ratio] 36.42 kg/m2 Jorgito Schwerer Other [facility] Other 09-11-2021 14:45-0500 Body temperature 97.7 [degF] Jorgito Schwerer Other [facility] Other 09-11-2021 14:45-0500 Body weight 93.26 kg Jorgito Schwerer Other [facility] Other 09-11-2021 14:45-0500 Diastolic blood pressure 82 mm[Hg] Jorgito Schwerer Other [facility] Other 09-11-2021 14:45-0500 SaO2% (BldA) [Mass fraction] 99 % Jorgito Schwerer Other [facility] Other 09-11-2021 14:45-0500 Systolic blood pressure 128 mm[Hg] Jorgito Schwerer Other [facility] Other 08-15-2021 11:45-0500 Body height 160.02 cm Jorgito Schwerer Other [facility] Other 08-15-2021 11:45-0500 Body mass index (BMI) [Ratio] 36.74 kg/m2 Jorgito Schwerer Other [facility] Other 08-15-2021 11:45-0500 Body temperature 96.9 [degF] Jorgito Schwerer Other [facility] Other 08-15-2021 11:45-0500 Body weight 94.08 kg Jorgito Schwerer Other [facility] Other 08-15-2021 11:45-0500 Diastolic blood pressure 72 mm[Hg] Jorgito Haynesr Other [facility] Other 08-15-2021 11:45-0500 Respiratory rate 18 /min Jorgito Haynesr Other [facility] Other 08-15-2021 11:45-0500 SaO2% (BldA) [Mass fraction] 99 % Jorgito Sanchez Other [facility] Other 08-15-2021 11:45-0500 Systolic blood pressure 126 mm[Hg] Jorgito Schwerer Other [facility] Other 06-27-2021 11:30-0500 Body height 160.02 cm Michael Morley Jr. Other [facility] Other 06-27-2021 11:30-0500 Body mass index (BMI) [Ratio] 36.04 kg/m2 Michael Morley Jr. Other [facility] Other 06-27-2021 11:30-0500 Body weight 92.31 kg Michael Morley Jr. Other [facility] Other 06-27-2021 11:30-0500 Diastolic blood pressure 52 mm[Hg] Michael Morley Jr. Other [facility] Other 06-27-2021 11:30-0500 Respiratory rate 18 /min Michael Morley Jr. Other [facility] Other 06-27-2021 11:30-0500 SaO2% (BldA) [Mass fraction] 100 % Michael Morley Jr. Other [facility] Other 06-27-2021 11:30-0500 Systolic blood pressure 88 mm[Hg] Michael Morley Jr. Other [facility] Other 06-20-2021 12:00-0500 Body height 160.02 cm Reyna Sofia Other [facility] Other 06-20-2021 12:00-0500 Body mass index (BMI) [Ratio] 35.25 kg/m2 Reyna Sofia Other [facility] Other 06-20-2021 12:00-0500 Body temperature 96.8 [degF] Reyna Sofia Other [facility] Other 06-20-2021 12:00-0500 Body weight 90.27 kg Reyna Sofia Other [facility] Other 06-20-2021 12:00-0500 Diastolic blood pressure 74 mm[Hg] Reyna Sofia Other [facility] Other 06-20-2021 12:00-0500 Respiratory rate 20 /min Reyna Sofia Other [facility] Other 06-20-2021 12:00-0500 SaO2% (BldA) [Mass fraction] 100 % Reyna Sofia Other [facility] Other 06-20-2021 12:00-0500 Systolic blood pressure 110 mm[Hg] Reyna Sofia Other [facility] Other 06-15-2021 12:30-0500 Body height 160.02 cm Lety Fitt Other [facility] Other 06-15-2021 12:30-0500 Body mass index (BMI) [Ratio] 36.4 kg/m2 Lety Fitt Other [facility] Other 06-15-2021 12:30-0500 Body weight 93.21 kg Lety Fitt Other [facility] Other 06-13-2021 11:45-0500 Body height 160.02 cm Michael Morley Jr. Other [facility] Other 06-13-2021 11:45-0500 Body mass index (BMI) [Ratio] 35.89 kg/m2 Michael Morley Jr. Other [facility] Other 06-13-2021 11:45-0500 Body weight 91.9 kg Michael Morley Jr. Other [facility] Other 06-13-2021 11:45-0500 Diastolic blood pressure 66 mm[Hg] Michael Morley Jr. Other [facility] Other 06-13-2021 11:45-0500 Respiratory rate 20 /min Michael Morley Jr. Other [facility] Other 06-13-2021 11:45-0500 SaO2% (BldA) [Mass fraction] 99 % Michael Morley Jr. Other [facility] Other 06-13-2021 11:45-0500 Systolic blood pressure 104 mm[Hg] Michael Morley Jr. Other [facility] Other 06-12-2021 15:00-0500 Body height 160.02 cm Jorgito Schwerer Other [facility] Other 06-12-2021 15:00-0500 Body mass index (BMI) [Ratio] 36.03 kg/m2 Jorgito Schwerer Other [facility] Other 06-12-2021 15:00-0500 Body weight 92.26 kg Jorgito Schwerer Other [facility] Other 06-12-2021 15:00-0500 Diastolic blood pressure 76 mm[Hg] Jorgito Schwerer Other [facility] Other 06-12-2021 15:00-0500 Respiratory rate 18 /min Jorgito Schwerer Other [facility] Other 06-12-2021 15:00-0500 SaO2% (BldA) [Mass fraction] 95 % Jorgito Schwerer Other [facility] Other 06-12-2021 15:00-0500 Systolic blood pressure 128 mm[Hg] Jorgito Schwerer Other [facility] Other Encounters Encounter Date Encounter Type Care Provider Facility Start: 05-27-2024 ambulatory No Michelle ty:[facility] Start: 03-31-2024 End: 03-31-2024 Patient encounter procedure Johnny Spivey APRN.[facility] Work Phone: Urology Comment on above: 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); Kidney stone; Urinary tract infection without hematuria, site unspecified Start: 03-31-2024 End: 03-31-2024 ambulatory Services [facility] Work Phone: [facility] Work Phone: Start: 03-23-2024 End: 03-23-2024 ambulatory [facility] Work Phone: [facility] Work Phone: Start: 03-23-2024 End: 03-23-2024 Patient encounter procedure Services [facility] Work Phone: [facility] Work Phone: Start: 03-12-2024 End: 03-12-2024 ambulatory SIMONE BARNES Not Available Start: 03-12-2024 End: 03-12-2024 Emergency department patient visit Services [facility] Work Phone: [facility]-Emergency Room Work Phone: Start: 03-12-2024 End: 03-12-2024 Emergency department patient visit Services [facility] Work Phone: [facility]-Emergency Room Work Phone: Start: 03-11-2024 End: 03-11-2024 Patient encounter procedure Services Family [facility] Work Phone: [facility]-MRI [facility] [place] Work Phone: Start: 03-11-2024 End: 03-11-2024 ambulatory Services [facility] Work Phone: [facility] Work Phone: Start: 02-27-2024 Telephone encounter Sugey Beckett RN General Surgery Comment on above: Outside Referral Req uests Start: 02-18-2024 End: 02-18-2024 ambulatory Services [facility] Work Phone: [facility] Work Phone: Start: 02-18-2024 End: 02-18-2024 Patient encounter procedure Services [facility] Work Phone: [facility] Work Phone: Start: 02-18-2024 End: 02-18-2024 ambulatory ISSA GAMBINO Not Available Start: 02-15-2024 End: 02-15-2024 Emergency department patient visit Services [facility] Work Phone: [facility]-Emergency Room Work Phone: Start: 02-12-2024 End: 02-12-2024 ambulatory SIMONE BARNES Not Available Start: 01-30-2024 End: 01-30-2024 ambulatory NIKI MURPHY Not Available Start: 01-28-2024 End: 01-28-2024 ambulatory JOHNNY Abdullahi ROBIN Facility:[facility] Start: 01-28-2024 End: 01-28-2024 Patient encounter procedure Johnny Abdullahi Robin 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 Work Phone: Urology Comment on above: Stress incontinence of urine (Primary Dx); Overactive bladder; Urinary tract infection without hematuria, site unspecified; Vaginal dryness; Kidney stone Start: 01-22-2024 End: 01-22-2024 ambulatory NIKI MURPHY Not Available Start: 01-14-2024 End: 01-14-2024 ambulatory Services [facility] Work Phone: [facility] Work Phone: Start: 01-14-2024 End: 01-14-2024 Departed Referred Services [facility] Work Phone: [facility] Services Start: 01-03-2024 End: 01-03-2024 Emergency department patient visit Services [facility] Work Phone: [facility]-Emergency Room Work Phone: Start: 12-23-2023 End: 12-23-2023 ambulatory MIMI HERMOSILLO Facility:[facility] Start: 12-23-2023 End: 12-23-2023 Patient encounter procedure Mimi Hermosillo OD Work Phone: Ophthalmology Comment on above: Type 2 diabetes jaimee itus without retinopathy (HCC) (Primary Dx); Bilateral presbyopia; Dry eye syndrome of bilateral lacrimal glands Start: 12-17-2023 End: 12-17-2023 ambulatory NIKI MURPHY Not Available Start: 12-03-2023 End: 12-03-2023 ambulatory JACQUIRICHAR MONZON Not Available Start: 11-28-2023 End: 11-28-2023 ambulatory JACQUI CASTRO Facility:[facility] Start: 11-28-2023 End: 11-28-2023 Patient encounter procedure Jacqui Castro MD Work Phone: Urology Comment on above: Stress incontinence of urine (Primary Dx); Screening for genitourinary condition; Overactive bladder; Other constipation; Vaginal pain Start: 11-14-2023 End: 11-14-2023 Patient encounter procedure MD Naomi Feliciano [facility]-Lab [facility] [place] Work Phone: Start: 11-14-2023 End: 11-14-2023 ambulatory MD Naomi Joneswallaceamos [facility] Work Phone: Start: 10-31-2023 End: 10-31-2023 ambulatory LAUREN ALLENMAGDI Not Available Start: 10-28-2023 End: 10-28-2023 ambulatory Services Family [facility] Work Phone: [facility] Work Phone: Start: 10-28-2023 End: 10-28-2023 Patient encounter procedure Services [facility] Work Phone: [facility] Work Phone: Start: 10-27-2023 End: 10-27-2023 Emergency department patient visit Services [facility] Work Phone: [facility]-Emergency Room Work Phone: Start: 10-23-2023 End: 10-23-2023 ambulatory [facility] Start: 10-22-2023 End: 10-22-2023 Admission to same day surgery center Mode Adler PT Work Phone: [facility] Comment on above: PTTD (posterior tibi al tendon dysfunction) (Primary Dx); Morbid obesity (HCC); Osteoarthritis of right ankle and foot; Degeneration of lumbar intervertebral disc; Spinal stenosis, lumbar region with neurogenic claudication; Lumbar foraminal stenosis; Facet degeneration of lumbar region; Restless legs syndrome; Disturbance of skin sensation; Carpal tunnel syndrome, bilateral; H/O total knee replacement, bilateral; Status post left foot surgery; Myalgia Start: 10-22-2023 End: 10-22-2023 ambulatory Mode Adler PT Work Phone: [facility] [place] Start: 10-15-2023 End: 10-15-2023 ambulatory Barbara Weinstein RT(R) Radiology Comment on above: Radiology XR Start: 10-15-2023 End: 10-15-2023 Patient encounter procedure Melony Alamo PA-C Work Phone: Spine Medicine Comment on above: Facet degeneration o f lumbar region (Primary Dx); PTTD (posterior tibial tendon dysfunction); Morbid obesity (HCC); Osteoarthritis of right ankle and foot; Degeneration of lumbar intervertebral disc; Spinal stenosis, lumbar region with neurogenic claudication; Lumbar foraminal stenosis; Restless legs syndrome; Disturbance of skin sensation; Carpal tunnel syndrome, bilateral; H/O total knee replacement, bilateral; Status post left foot surgery; Myalgia; Pelvic floor dysfunction Start: 10-11-2023 End: 10-11-2023 ambulatory CARTER HALL Facility:[facility] Start: 10-11-2023 End: 10-11-2023 Patient encounter procedure Carter Hall MD Work Phone: Urology Comment on above: Stress incontinence of urine (Primary Dx); Stress incontinence, male Start: 10-10-2023 End: 10-10-2023 ambulatory CHACORTA FERNANDO Not Available Start: 10-08-2023 End: 10-08-2023 ambulatory ANGEL ZUNIGA Facility:[facility] Start: 10-08-2023 End: 10-08-2023 ambulatory NASRA LO Facility:[facility] Start: 10-08-2023 End: 10-08-2023 Patient encounter procedure Simone Minanorman RIVERA Work Phone: Audiology Comment on above: Ear pain, bilateral (Primary Dx); Sensorineural hearing loss (SNHL) of both ears; Tinnitus, bilateral; Dizziness Start: 10-06-2023 End: 10-06-2023 Emergency department patient visit Services [facility] Work Phone: [facility]-Emergency Room Work Phone: Start: 10-01-2023 End: 10-01-2023 ambulatory LAUREN VILLRAREAL Not Available Start: 09-10-2023 End: 09-10-2023 ambulatory Marley Pycraft RT(R) Radiology Ct Scan Comment on above: Radiology CT Radiology US Start: 09-10-2023 Patient encounter procedure Marley Pycraft RT(R) [facility] Start: 09-10-2023 End: 09-10-2023 Subsequent hospital visit by physician [facility] Radiology Ct Scan Comment on above: Sensorineural hearin g loss (SNHL) of both ears [H90.3] Start: 09-06-2023 Telephone encounter Melony winters PA-C Work Phone: Spine Medicine Comment on above: Patient Update (spok e to patient. kidney pain vs back spine pain. she will be seen in office. ok to schedule. ) Start: 09-02-2023 Registered Recurring Services [facility] Work Phone: [facility]-Weight Management Work Phone: Start: 09-02-2023 End: 09-02-2023 ambulatory Michael Morley [employer] Other Start: 09-02-2023 Follow-up encounter Michael [facility]an [facility] Start: 09-02-2023 Telephone encounter Michael regan [facility] Start: 09-02-2023 End: 09-02-2023 Patient encounter procedure Services [facility] Work Phone: [facility]- Start: 08-29-2023 End: 08-29-2023 ambulatory CARTER HALL Facility:[facility] Start: 08-27-2023 End: 08-27-2023 ambulatory NASRA LO Facility:[facility] Start: 08-19-2023 End: 08-19-2023 ambulatory Michael Morley Other [facility] Other Start: 08-19-2023 Telephone encounter Michael regan [facility] Start: 08-12-2023 End: 08-12-2023 Patient encounter procedure MD Naomi Feliciano [facility]-Lab [facility] [place] Work Phone: Start: 08-12-2023 End: 08-12-2023 ambulatory MD Naomi Feliciano [facility] Work Phone: Start: 08-12-2023 End: 08-12-2023 ambulatory JACQUI RIZZOKEATON Not Available Start: 08-07-2023 End: 08-08-2023 Emergency department patient visit MD Naomi Feliciano [facility]-Emergency Room Work Phone: Start: 07-23-2023 ambulatory [facility] Start: 07-16-2023 End: 07-16-2023 ambulatory Michael Morley Other [employer] Other Start: 07-16-2023 Telephone encounter Michael regan [facility] Start: 07-01-2023 ambulatory [facility] Start: 06-19-2023 End: 06-20-2023 ambulatory [facility] Start: 06-19-2023 End: 06-19-2023 ambulatory [facility] Start: 06-10-2023 Registered Recurring MD Lázaro contreras bashir [facility] Management Work Phone: Start: 06-10-2023 End: 06-10-2023 ambulatory Michael Morley Other [facility] Other Start: 06-10-2023 Follow-up encounter Michael regan [facility] Start: 06-06-2023 End: 06-06-2023 ambulatory Reyna Sofia Other [employer] Other Start: 06-06-2023 Office outpatient vi sit 25 minutes Reyna Black [facility] Start: 06-04-2023 ambulatory ISAI SUN [facility] Start: 05-22-2023 End: 05-23-2023 ambulatory No TORRES Facility:[facility] Start: 05-16-2023 ambulatory [facility] Start: 05-13-2023 End: 05-13-2023 Patient encounter procedure DO Jorgito Schwerer Work Phone: [facility] Work Phone: Start: 05-13-2023 End: 05-13-2023 ambulatory DO Jorgito E Schwerer Work Phone: [facility] Work Phone: Start: 04-24-2023 (Procedure) Saba Villarreal [facility] Start: 04-24-2023 End: 04-24-2023 ambulatory Kenny Ernstmagdi Other [employer] Other Start: 04-16-2023 End: 04-16-2023 Patient encounter procedure DO Jorgito Schwerer Work Phone: [facility] Work Phone: Start: 04-16-2023 End: 04-16-2023 ambulatory Alex Carla Facility:[facility] Start: 04-12-2023 End: 04-12-2023 ambulatory DO Jorgito E Schwerer Work Phone: [facility] Work Phone: Start: 04-12-2023 End: 04-12-2023 Departed Referred DO Jorgito Schwerer Work Phone: [facility] Start: 04-10-2023 Registered Recurring DO Kaitli n Schwerer Work Phone: [facility]-Weight Management Work Phone: Start: 04-08-2023 End: 04-08-2023 Emergency department patient visit DO Jorgito Schwerer Work Phone: [facility]-Emergency Room Work Phone: Start: 04-04-2023 End: 04-05-2023 ambulatory [facility] Start: 03-26-2023 End: 03-26-2023 ambulatory Jorgito Schwerer Other [employer] Other Start: 03-26-2023 Telephone encounter Jorgito Schwerer [facility] Start: 03-23-2023 End: 03-23-2023 Emergency department patient visit DO Jorgito Schwerer Work Phone: [facility]-Emergency Room Work Phone: Start: 03-21-2023 End: 03-21-2023 ambulatory Kenny Villarreal Other [employer] Other Start: 03-21-2023 Office outpatient vi sit 25 minutes Kenny Villarreal [facility] [place] Start: 03-18-2023 End: 03-18-2023 ambulatory Jorgito Schwerer Other [employer] Other Start: 03-18-2023 Telephone encounter Jorgito Schwerer [facility] Start: 03-16-2023 End: 03-16-2023 Emergency department patient visit DO Jorgito Schwerer Work Phone: [facility]-Emergency Room Work Phone: Start: 03-11-2023 (Procedure) Saba Villarreal [facility] Start: 03-11-2023 End: 03-11-2023 ambulatory DO Jorgito E Schwerer Work Phone: [facility] Work Phone: Start: 03-11-2023 End: 03-11-2023 Patient encounter procedure DO Jorgito Sanchez Work Phone: [facility] [place] Work Phone: Start: 02-27-2023 Registered Recurring DO Felecia Sanchez Work Phone: [facility] Work Phone: Start: 02-27-2023 End: 02-27-2023 ambulatory Michael Morley Other [employer] Other Start: 02-27-2023 Follow-up encounter Michael regan [facility] Start: 02-27-2023 Telephone encounter Michael regan [facility] Start: 02-23-2023 End: 02-23-2023 Emergency department patient visit DO Jorgito Sanchez Work Phone: [facility]-Emergency Room Work Phone: Start: 02-18-2023 End: 02-18-2023 ambulatory Kenny Villarreal Other [employer] Other Start: 02-18-2023 Telephone encounter Kenny HANSON [facility] Start: 02-06-2023 End: 02-06-2023 ambulatory Jorgito Schwerer Other [employer] Other Start: 02-06-2023 Telephone encounter Jorgito Levineerer [facility] [place] Start: 02-04-2023 End: 02-04-2023 ambulatory Jorgito Schwerer Other [employer] Other Start: 02-04-2023 Office outpatient vi sit 25 minutes Jorgtio Schwerer [facility] [place] Start: 01-31-2023 End: 02-01-2023 Emergency department patient visit DO Jorgito Sanchez Work Phone: [facility]-Emergency Room Work Phone: Start: 01-29-2023 End: 01-29-2023 ambulatory Jorgito Sanchez Other [employer] Other Start: 01-29-2023 Telephone encounter Jorgito Haynesr [facility] [place] Start: 01-28-2023 End: 01-28-2023 Emergency department patient visit DO Jorgito Sanchez Work Phone: [facility]-Emergency Room Work Phone: Start: 01-28-2023 End: 01-28-2023 ambulatory Kenny Villarreal Other [employer] Other Start: 01-28-2023 Office outpatient vi sit 25 minutes Kenny Villarreal [facility] [place] Start: 01-15-2023 ambulatory [facility] Start: 01-15-2023 End: 01-15-2023 Patient encounter procedure DO Jorgito Sanchez Work Phone: [facility]-MRI [address] Work Phone: Start: 01-02-2023 End: 01-02-2023 ambulatory Kenny Villarreal Other [employer] Other Start: 01-02-2023 Office outpatient vi sit 25 minutes Kenny Villarreal [facility] [place] Start: 12-26-2022 ambulatory CORAZON Morrison lity:H1 Start: 12-18-2022 End: 12-19-[address] MICHAEL OLIVER Facility:[facility]1 Start: 12-13-2022 End: 12-13-2022 Patient encounter procedure Regina Atkins OD Work Phone: Ophthalmology Comment on above: Arcus senilis, bilat eral (Primary Dx); Regular astigmatism, bilateral; Bilateral presbyopia Start: 12-12-2022 Orders Only Regina Atkins OD Work Phone: Ophthalmology Start: 12-06-2022 End: 12-06-2022 ambulatory Kenny Villarreal Other [employer] Other Start: 12-06-2022 Office outpatient vi sit 25 minutes Kenny Villarreal [facility] [place] Start: 12-05-2022 End: 12-06-[address] MICHAEL OLIVER Facility: Start: 12-04-2022 End: 12-04-2022 ambulatory [facility] Start: 11-13-2022 ambulatory [facility] Start: 11-09-2022 End: 11-10-2022 Emergency department patient visit KENIA [facility] Start: 11-08-2022 End: 11-09-[address] NO TORRES . Facility:[facility]1 Start: 11-06-2022 ambulatory [facility] Start: 11-05-2022 End: 11-05-2022 ambulatory Jorgito Levineerer Other [employer] Other Start: 11-05-2022 Telephone encounter Jorgito Haynesr [facility] [place] Start: 11-04-2022 End: 11-05-2022 Emergency department patient visit DO Jorgito Schwerer Work Phone: [facility]-Emergency Room Work Phone: Start: 11-04-2022 Emergency department patient visit [facility] Start: 11-04-2022 End: 11-04-2022 Emergency department patient visit [facility] Start: 11-03-2022 End: 11-03-2022 Evaluation and management of inpatient DO Jorgito Schwerer Work Phone: [facility] [place] [facility] Work Phone: Start: 10-31-2022 ambulatory JACQUI FERNANDO [facility] Start: 10-29-2022 End: 10-29-2022 Patient encounter procedure DO Jorgito Schwerer Work Phone: [facility]-Lab [address] [place] Work Phone: Start: 10-25-2022 End: 10-25-2022 ambulatory [facility] Start: 10-25-2022 End: 10-25-2022 ambulatory [facility] Start: 10-23-2022 End: 10-23-2022 ambulatory DO Jorgito Bundy Schwerer Work Phone: [facility] Work Phone: Start: 10-23-2022 End: 10-23-2022 Patient encounter procedure DO Jorgito Schwerer Work Phone: [facility]-XRay [facility] Work Phone: Start: 10-22-2022 End: 10-22-2022 ambulatory Jorgito Levineerer Other [employer] Other Start: 10-22-2022 Telephone encounter Jorgito Levineerer [facility] [place] Start: 10-19-2022 End: 10-20-2022 Emergency department patient visit DO Jorgito Schwerer Work Phone: [facility]-Emergency Room Work Phone: Start: 10-18-2022 End: 10-19-[address] NO TORRES . Facility: Start: 10-17-2022 End: 10-17-2022 ambulatory Kenny Villarreal Other [employer] Other Start: 10-17-2022 Office outpatient vi sit 25 minutes Kenny Villarreal [facility] [place] Start: 10-16-2022 End: 10-16-2022 ambulatory Michael Morley Other [facility] [employer] Other Start: 10-16-2022 Follow-up encounter Michael Penadiff Jillian jass [facility] Start: 10-16-2022 Telephone encounter Michael Penadianthony Walsh jass [facility] Start: 10-16-2022 Registered Recurring DO Kaitli n Schwerer Work Phone: [facility]-Weight Management Work Phone: Start: 10-09-2022 Encounter for other preprocedural examination DR NO TORRES . [facility] Start: 10-09-2022 Encounter for preprocedural laboratory examination DR NO TORRES . [facility] Start: 10-08-2022 End: 10-09-[address] NO TORRES . Facility: Start: 10-08-2022 End: 10-09-2022 Encounter for preprocedural laboratory examination DR NO TORRES . Facility: Start: 10-03-2022 End: 10-04-2022 ambulatory DO Jorgito E Schwerer Work Phone: [facility] Work Phone: Start: 10-03-2022 End: 10-03-2022 Patient encounter procedure Jorgito E SCHWERER [facility] Start: 09-25-2022 End: 09-25-2022 ambulatory DO Jorgito E Schwerer Work Phone: [facility] Work Phone: Start: 09-25-2022 End: 09-25-2022 Patient encounter procedure DO Jorgito Schwerer Work Phone: [facility]XRay [facility] Start: 09-18-2022 End: 09-18-2022 ambulatory DO Jorgito E Schwerer Work Phone: [facility] Work Phone: Start: 09-18-2022 End: 09-18-2022 Patient encounter procedure DO Jorgito Haynesr Work Phone: [facility]-XRay [facility] Work Phone: Start: 09-14-2022 End: 09-14-2022 ambulatory Michael Morley Other [employer] Other Start: 09-14-2022 Telephone encounter Michael Walsh [facility] Start: 09-06-2022 End: 09-07-[address] NO TORRES . Facility:[facility]1 Start: 09-05-2022 Office outpatient ne w 45 minutes Kenny Villarreal [facility] [place] Start: 09-05-2022 Encounter for preprocedural cardiovascular examination DR NO TORRES . [facility] Start: 09-05-2022 End: 09-05-2022 ambulatory DO Jorgito E Daniel Work Phone: [facility] Work Phone: Start: 09-05-2022 End: 09-05-2022 Patient encounter procedure DO Jorgito Sanchez Work Phone: [facility]-XRay [facility] Start: 09-03-2022 End: 09-04-[address] NO TORRES . Facility:[facility]1 Start: 08-29-[address] NO TORRES . Fac ility:H1 Start: 08-28-2022 End: 08-28-2022 Patient encounter procedure Nasra Lo PA-C Work Phone: Otolaryngology Comment on above: Otalgia, bilateral ( Primary Dx); Sensorineural hearing loss (SNHL) of both ears; Tinnitus of both ears; Arthralgia of right temporomandibular joint Start: 08-28-2022 End: 08-28-2022 ambulatory Jorgito Sanchez Other [employer] Other Start: 08-28-2022 Telephone encounter Jorgito Sanchez [facility] [place] Start: 08-27-2022 Telephone encounter Rose Connelly RN Otolaryngology Comment on above: Appointment Confirma tion Start: 08-24-2022 End: 08-24-2022 ambulatory Jorgito Sanchez Other [employer] Other Start: 08-24-2022 Encounter for antibo dy response examination Jorgito Sanchez [facility] Start: 08-24-2022 Patient encounter procedure Jorgito Haynesr [facility] Start: 08-24-2022 Telephone encounter Jorgito Haynesr [facility] [place] Start: 08-23-2022 End: 08-23-2022 ambulatory Jorgito Sanchez Other [employer] Other Start: 08-23-2022 Telephone encounter Jorgito Haynesr [facility] Start: 08-22-2022 End: 08-22-2022 Emergency department patient visit DO Jorgito Sanchez Work Phone: [facility]-Emergency Room Work Phone: Start: 08-22-2022 End: 08-22-2022 ambulatory Michael Morley Other [employer] Other Start: 08-22-2022 Follow-up encounter Michael regan [facility] Start: 08-22-2022 Registered Recurring DO Felecia Sanchez Work Phone: [facility]-Weight Management Work Phone: Start: 08-17-2022 End: 08-17-2022 ambulatory Jorgito Sanchez Other [employer] Other Start: 08-17-2022 Telephone encounter Jorgito Haynesr [facility] Start: 08-16-2022 End: 08-16-2022 ambulatory Jorgito Schwerer Other [employer] Other Start: 08-16-2022 Telephone encounter Jorgito Schwerer [facility] [place] Start: 08-15-2022 End: 08-15-2022 ambulatory Michael Morley Other [employer] Other Start: 08-15-2022 Telephone encounter Michael Walsh [facility] Start: 08-09-2022 End: 08-09-2022 ambulatory DO Jorgito E Schwerer Work Phone: [facility] Work Phone: Start: 08-09-2022 End: 08-09-2022 Patient encounter procedure DO Jorgito Schwerer Work Phone: [facility]Lab [address] [place] Work Phone: Start: 08-07-2022 End: 08-07-2022 ambulatory Jorgito Schwerer Other [employer] Other Start: 08-07-2022 Encounter for antibo dy response examination Jorgito Schwerer [facility] Start: 08-07-2022 Office outpatient vi sit [address] [facility] Start: 07-31-2022 End: 07-31-2022 Patient encounter procedure DO Jorgito Schwerer Work Phone: [facility]-XRay [address] [place] Work Phone: Start: 07-23-2022 End: 07-23-2022 ambulatory Jorgito Schwerer Other [employer] Other Start: 07-23-2022 Telephone encounter Jorgito Schwerer [facility] Start: 07-22-2022 End: 07-22-2022 Emergency department patient visit DO Jorgito Schwerer Work Phone: [facility]-Emergency Room Work Phone: Start: 2022 End: 2022 ambulatory DO Jorgito E Schwerer Work Phone: [facility] Work Phone: Start: 2022 End: 2022 Patient encounter procedure DO Jorgito Schwerer Work Phone: [facility]-CT Scan [place] Start: 07-09-2022 End: 07-09-2022 Patient encounter procedure DO Jorgito Schwerer Work Phone: [facility]-XRay [place] Start: 07-09-2022 End: 07-09-2022 ambulatory DO Jorgito E Schwerer Work Phone: [facility] Work Phone: Start: 07-09-2022 Telephone encounter Jorgito Schwerer [facility] Start: 07-05-2022 End: 07-05-2022 ambulatory Jorgito Schwerer Other [employer] Other Start: 07-05-2022 Office outpatient vi sit [address] [facility] Start: 07-02-2022 End: 07-02-2022 ambulatory Jorgito Schwerer Other [employer] Other Start: 07-02-2022 Telephone encounter Jorgito Schwerer [facility] Start: 06-29-2022 End: 06-29-2022 Emergency department patient visit DO Jorgito Schwerer Work Phone: [facility]-Emergency Room Start: 06-25-2022 End: 06-25-2022 ambulatory Jorgito Schwerer Other [employer] Other Start: 06-25-2022 Telephone encounter Jorgito Haynesr [facility] [place] Start: 06-18-2022 End: 06-18-2022 ambulatory Jorgito Levineerer Other [employer] Other Start: 06-18-2022 Encounter for antibo dy response examination Jorgito Levineerer [facility] [place] Start: 06-18-2022 Office outpatient vi sit 15 minutes Jorgito Haynesr [facility] [place] Start: 06-14-2022 End: 06-14-2022 ambulatory Jorgito Haynesr Other [employer] Other Start: 06-14-2022 Telephone encounter Jorgito Haynesr [facility] [place] Start: 06-13-2022 End: 06-14-2022 Emergency department patient visit DO Jorgito Haynesr Work Phone: [facility]-Emergency Room Start: 06-12-2022 End: 06-13-2022 ambulatory No TORRES [place] Start: 06-12-2022 End: 06-12-2022 Patient encounter procedure DO Jorgito Sanchez Work Phone: [facility]-Lab [address] [place] Start: 06-07-2022 End: 06-07-2022 ambulatory Jorgito Haynesr Other [employer] Other Start: 06-07-2022 Telephone encounter Jorgito Haynesr [facility] [place] Start: 05-29-2022 End: 05-29-2022 ambulatory MD Naomi Feliciano [facility] Work Phone: Start: 05-29-2022 End: 05-29-2022 Patient encounter procedure MD Naomi Feliciano [facility]-CT Scan [place] Start: 05-15-2022 End: 05-15-2022 Patient encounter procedure Nasra Lo PA-C Work Phone: Otolaryngology Comment on above: Otalgia, bilateral ( Primary Dx); Sensorineural hearing loss (SNHL) of both ears; Dizziness Start: 05-14-2022 End: 05-14-2022 ambulatory Jorgito Schwerer Other [employer] Other Start: 05-14-2022 Telephone encounter Jorgito Schwerer [facility] Start: 05-07-2022 End: 05-07-2022 Patient encounter procedure Jairo Jackson NICOLE Work Phone: Audiology Comment on above: Sensorineural hearin g loss, bilateral (Primary Dx); Dizziness; Right ear pain Start: 04-26-2022 End: 04-26-2022 ambulatory Issa Mckenzie Other [employer] Other Start: 04-26-2022 Office outpatient vi sit 15 minutes Issa Mckenzie [facility] Vascular Surgery Start: 04-26-2022 Telephone encounter Jazmin Walsh [facility] Start: 04-26-2022 End: 04-26-2022 Patient encounter procedure DO Jorgito Schwerer Work Phone: [facility]-Ultrasound [facility] Vascular Start: 04-11-2022 End: 04-11-2022 Patient encounter procedure DO Jorgito Schwerer Work Phone: [facility]-Center for Breast Care Start: 04-05-2022 End: 04-05-2022 ambulatory Jorgito Schwerer Other [employer] Other Start: 04-05-2022 Telephone encounter Jorgito Schwerer [facility] Start: 04-04-2022 End: 04-04-2022 ambulatory Issa Mckenzie Other [employer] Other Start: 04-04-2022 Office outpatient ne w 30 minutes Issa Mckenzie [facility] Start: 04-04-2022 Telephone encounter Issa Figueroa [facility] [employer] Start: 04-02-2022 End: 04-02-2022 Departed Referred DO Jorgito Schwerer Work Phone: [facility]Lab [place] Start: 04-02-2022 End: 04-02-2022 ambulatory Jorgito Schwerer Other [employer] Other Start: 04-02-2022 Office outpatient vi sit 25 minutes Jorgito Schwerer [facility] [place] Start: 03-19-2022 End: 03-20-2022 ambulatory [facility] Facility:[facility] Start: 03-08-2022 Registered Recurring DO Felecia tom Schwerer Work Phone: [facility]-Weight Management Start: 03-08-2022 End: 03-08-2022 ambulatory Michael Morley Other [employer] Other Start: 03-08-2022 Follow-up encounter Michael regan [facility] Start: 03-01-2022 End: 03-01-2022 ambulatory Jorgito Schwerer Other [employer] Other Start: 03-01-2022 Office outpatient vi sit 25 minutes Jorgito Schwerer [facility] [place] Start: 03-01-2022 End: 03-01-2022 Departed Referred DO Jorgito Schwerer Work Phone: [facility]Lab [address] [place] Start: 01-30-2022 (FCCC INJ) FCCC Injection Lety Fitt [facility] Start: 01-30-2022 End: 01-30-2022 ambulatory Lety Fitt Other [employer] Other Start: 01-22-2022 End: 01-22-2022 ambulatory Jorgito Schwerer Other [employer] Other Start: 01-22-2022 Office outpatient vi sit [address] [facility] Start: 01-15-2022 End: 01-15-2022 ambulatory Jorgito Schwerer Other [employer] Other Start: 01-15-2022 Telephone encounter Jorgito Schwerer [facility] Start: 01-12-2022 End: 01-12-2022 Patient encounter procedure DO Jorgito Schwerer Work Phone: [facility] Start: 01-05-2022 End: 01-05-2022 ambulatory Jorgito Schwerer Other [employer] Other Start: 01-05-2022 Office outpatient vi sit [address] [facility] Start: 12-19-2021 ([facility] [address] FU) [facility] F/ U [employer]d [employer] Work[employer] Lety Falk [facility] Start: 12-19-2021 End: 12-19-2021 ambulatory Reyna Sofia Other [employer] Other Start: 12-19-2021 Office outpatient vi sit 25 minutes Reyna Sofia [facility] Pulmonary Disease Start: 12-15-2021 Telephone encounter Nasra oliva PA-C Work Phone: Otolaryngology Comment on above: Results Start: 11-21-2021 End: 11-21-2021 ambulatory Michael Morley Other [employer] Other Start: 11-21-2021 Follow-up encounter Michael regan [facility] Start: 10-31-2021 End: 10-31-2021 Patient encounter procedure Nishi (Nicole) Pritesh Work Phone: Audiology Comment on above: Sensorineural hearin g loss, bilateral (Primary Dx); Dizziness; Otalgia of both ears; Ear pressure, bilateral Otalgia, bilateral ( Primary Dx); Arthralgia of right temporomandibular joint; Sensorineural hearing loss (SNHL) of both ears; Tinnitus of both ears; Dizziness Start: 10-10-2021 End: 10-10-2021 ambulatory Michael Morley Other [employer] Other Start: 10-10-2021 Follow-up encounter Michael Penadianthony Walsh jass [facility] Start: 09-26-2021 ([facility] FU) [facility] F/ U [employer] Work[employer] Lety Falk [facility] Start: 09-26-2021 End: 09-26-2021 ambulatory Lety Falk Other [employer] Other Start: 09-15-2021 End: 09-15-2021 ambulatory Michael Morley Other [employer] Other Start: 09-15-2021 Nursing evaluation o f patient and report Michael Morley [facility] Start: 09-11-2021 End: 09-11-2021 ambulatory Jorgito Schwerer Other [employer] Other Start: 09-11-2021 Office outpatient vi sit [address] [facility] Start: 09-11-2021 Telephone encounter Jorgito Schwerer [facility] Start: 09-04-2021 End: 09-04-2021 ambulatory Jorgito Schwerer Other [employer] Other Start: 09-04-2021 Telephone encounter Jorgito Schwerer [facility] Start: 08-15-2021 End: 08-15-2021 ambulatory Jorgito Schwerer Other [employer] Other Start: 08-15-2021 Office outpatient vi sit 25 minutes Jorgito Sanchez [facility] [place] Start: 08-14-2021 End: 08-14-2021 ambulatory Michael Morley Other [employer] Other Start: 08-14-2021 Nursing evaluation o f patient and report Michael Morley [facility] Start: 08-11-2021 End: 08-11-2021 ambulatory Jorgito Sanchez Other [employer] Other Start: 08-11-2021 Telephone encounter Jorgito Sanchez [facility] Start: 07-13-2021 End: 07-13-2021 ambulatory Michael Peyman Meng Other [employer] Other Start: 07-13-2021 Nursing evaluation o f patient and report Michael Morley Jr[facility] Start: 06-27-2021 End: 06-27-2021 ambulatory Michael Morley Jr. 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 Other [employer] Other Start: 06-13-2021 Nursing evaluation o f patient and report Michael Peyman Meng [facility] Start: 06-12-2021 End: 06-12-2021 ambulatory Jorgitoalan Levinenesha Other [employer] Other Start: 06-12-2021 Office outpatient vi sit 15 minutes Jorgito Sanchez [facility] [place] Procedures Date Procedure Procedure Detail Performing Clinician Start: 03-11-2024 MR lumbar spine wo con Services [employer] Work Phone: Start: 01-14-2024 Urine culture Services [email or web address] Phone: Start: 01-03-2024 Plain chest X-ray [facility] [email or web address] Phone: Start: 11-28-2023 Urnls dip stick/tabl et rgnt auto w/o microscopy Jacqui Castro MD Work Phone: Start: 10-27-2023 Plain [facility] [email or web address] Phone: Start: 10-27-2023 X-ray of lumbar spin e, two or three views Services [email or web address] Phone: Start: 10-08-2023 HEARING TEST/AUDIOGRAM Simone Beard NICOLE Work Phone: Start: 10-06-2023 Plain chest [facility] [employer] Work Phone: Start: 10-06-2023 SARS-CoV-2, Influenz a & RSV (PCR) Services [employer] Work Phone: Start: 09-10-2023 Ct orbit sella/post fossa/ear w/o contrast deonnal Nasra Lo PA-C Work Phone: Start: 08-08-2023 CT of abdomen and pe lvis without contrast MD Naomi Feliciano Start: 08-07-2023 Urine culture MD Lázaro Feliciaon Start: 07-23-2023 Follow-up visit Follow-up ISAI SUN Start: 05-13-2023 Diagnostic radiograp hy of abdomen DO Jorgito Juliannaerer Work Phone: Start: 04-16-2023 Bilateral mammography D O Jorgito [place] P[employer] Work Phone: Start: 04-12-2023 Urine culture DO Stormyli n [place] [employer] Work Phone: Start: 04-08-2023 Urine culture DO Priceitli n Schwerer Work Phone: Start: 03-23-2023 Plain chest X-ray DO Price lopezlin [place] [employer] Work Phone: Start: 03-23-2023 SARS-CoV-2, Influenz a & RSV (PCR) DO JorgitoBatzu Mediar Work Phone: Start: 01-31-2023 CT of head without contrast DO Jorgito [place] P[employer] Work Phone: Start: 01-15-2023 MR lumbar spine wo con DO Jorgito [place] [employer] Work Phone: Start: 11-04-2022 Diagnostic radiograp hy of abdomen DO Jorgito [place] [employer] Work Phone: Start: 11-02-2022 Plain X-ray of left hand DO Jorgito [place] [employer] Work Phone: Start: 11-02-2022 Blood culture for bacteria, including anaerobic screen DO Jorgito [place] [employer] Work Phone: Start: 10-23-2022 Diagnostic radiograp hy of abdomen DO Jorgito [place] [employer] Work Phone: Start: 10-20-2022 CT of abdomen and pe lvis without contrast DO Jorgito [place] [employer] Work Phone: Start: 10-19-2022 Urine culture DO Stormyli n [place] [employer] Work Phone: Start: 10-03-2022 Diagnostic radiograp hy of abdomen DO Jorgito Sanchez Work Phone: Start: 10-03-2022 Ultrasonography of bilateral kidneys DO Jorgito Sanchez Work Phone: Start: 09-25-2022 Plain chest X-ray DO Price Sanchez Work Phone: Start: 09-18-2022 Diagnostic radiograp hy of abdomen DO Jorgito Sanchez Work Phone: Start: 09-05-2022 X-ray of lumbar spin e, four views DO Jorgito Sanchez Work Phone: Start: 07-31-2022 Plain chest X-ray DO Price Sanchez Work Phone: Start: 07-22-2022 SARS-CoV-2, Influenz a & RSV (PCR) DO Jorgito Sanchez Work Phone: Start: 2022 CT of paranasal sinu s without contrast DO Jorgito Sanchez [employer] Phone: Start: 07-09-2022 Plain chest X-ray DO Price Sanchez L2 Phone: Start: 06-29-2022 CT of abdomen and pe lvis without contrast DO Jorgito Sanchez Work Phone: Start: 06-29-2022 SARS-CoV-2, Influenz a & RSV (PCR) DO Jorgito Sanchez Work Phone: Start: 06-29-2022 Urine culture DO Felecia Sanchez Work Phone: Start: 06-13-2022 Plain chest X-ray DO Price Sanchez L2 Phone: Start: 06-13-2022 SARS-CoV-2, Influenz a & RSV (PCR) DO Jorgito Sanchez Work Phone: Start: 06-12-2022 Urine culture DO Felecia n Schwerer Work Phone: Start: 05-29-2022 Computed tomography of abdomen and pelvis with contrast MD Naomi Feliciano Start: 04-26-2022 Duplex scan of lower limb veins DO Jorgito Levineerer Work Phone: Start: 04-11-2022 Bilateral mammography D O Jorgito Levineerer Work Phone: Start: 01-12-2022 US scan of thyroid DO K pilar Levineerer Work Phone: section Jorgito GERRY WERER Decompression of med reji nerve Jorgito LEVINEERER Comment on above: RIGHT HAND Dissection tonsillectomy Elmer velazquezin JULIANNAERER Excision of ganglion cyst Ka xiao LEVINEERER Comment on above: RIGHT WRIST H/O: hysterectomy Status post laparoscopic hysterectomy DO Jorgito Schwerer Work Phone: H/O: surgery History of recen t surgery DO Jorgito Schwerer Work Phone: H/O: surgery History of recen t surgery DO Jorgito Schwerer Work Phone: History of operative procedure on knee Jorgito Sanchez Other Laparoscopic cholecystectomy Jorgito SCHWERER Urine culture DO Jorgito Gerry werer Work Phone: Urine culture DO Jorgito Gerry werer Work Phone: Urine culture DO Jorgito Gerry werer Work Phone: Urine culture DO Jorgito Gerry werer Work Phone: Plan of Treatment Date Care Activity Detail Author Start: 10-23-2033 Urine microalbumin profile DTaP,Tdap,Td Vaccine (2 - Td or Tdap) [facility] Start: 04-28-2026 Screening for malign ant neoplasm of colon [facility] Start: 11-04-2025 Diabetes Screening Diabetes Screenin g [facility] Start: 12-22-2024 Glaucoma screening Dilated Retinal E xam [facility] Start: 10-06-2024 End: 10-06-2024 Patient encounter procedure 10/06/2024 11:00 AM EST Office Visit Urology [address] [place] [address] Johnny Spivey, 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 [address] [place], [place] [id number] 6 month follow up Urology Comment on above: 6 month follow up Start: 04-16-2024 Screening for malign ant neoplasm of breast Mammogram Screening [facility] Start: 04-14-2024 End: 04-14-2024 Patient encounter procedure 04/14/2024 11:40 AM EDT Office Visit Spine Medicine [address] [facility] [address] [place] [address] Melony Alamo PA-C [address] [place] [address] Return in about 2 months (around 12/15/2023). Spine Medicine Comment on above: Return in about 2 mo nths (around 12/15/2023). Start: 04-05-2024 Influenza vaccination [facility] Start: 03-31-2024 End: 03-31-2024 Patient encounter procedure 03/31/2024 5:00 PM EDT Office Visit Urology [address] [place] [address] Johnny Spivey, 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 [address] [place], [place] [id number] Return in about 2 months (around 03/29/2024) for rto for evalution JOHN . - ok to use slot per provider Urology Comment on above: Return in about 2 mo nths (around 03/29/2024) for rto for evalution JOHN . - ok to use slot per provider Start: 03-31-2024 End: 06-30-2024 Bacteria identified in Urine by Culture [facility] Comment on above: Expected: 03/31/2024 , Expires: 06/30/2024 Start: 03-31-2024 End: 06-30-2024 Urinalysis complete panel - Urine [facility] Work Phone: Comment on above: Expected: 03/31/2024 , Expires: 06/30/2024 Start: 02-12-2024 End: 02-12-2024 Patient encounter procedure 02/12/2024 3:40 PM EDT Office Visit Spine Medicine [address] [facility] [address] [place], [place] [phone] Melony Alamo PA-C [address] [facility] [address] [place], [place] [phone] Return in about 2 months (around 12/15/2023). Spine Medicine Comment on above: Return in about 2 mo nths (around 12/15/2023). 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 [N99.89, N39.3]; Kidney stone [N20.0] Physical Therapy Comment on above: Flank pain [R10.9]; 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 [N99.89, N39.3]; Kidney stone [N20.0] Start: 12-23-2023 End: 12-23-2023 Patient encounter procedure 12/23/2023 5:00 PM EDT Office Visit OPHT Ophthalmology [address] [facility] [place] [address] Mimi Hermosillo, OD [address] [address] LVM rescheduled from 12/20/23 AY Ophthalmology Comment on above: LVM rescheduled from 12/20/23 AY Start: 11-21-2023 Hepatitis B Vaccine (2 of 3 - Hep B Twinrix 3-dose series) Hepatitis B Vaccine (2 of 3 - Hep B Twinrix 3-dose series) [facility] Start: 10-27-2023 Plain chest X-ray XR chest 2V* [facility] Start: 10-27-2023 XR Chest 2 Views [facility] Start: 10-27-2023 X-ray of lumbar spin e, two or three views XR lumbar spine 2-3V* [facility] Start: 10-27-2023 XR Lumbar spine 2 or 3 Views [facility] Start: 10-18-2023 End: 01-17-2024 Bacteria identified in Urine by Culture URINE CULTURE Microbiology Routine Stress incontinence of urine Expected: 10/18/2023 (Approximate), Expires: 01/17/2024 [facility] Work Phone: Comment on above: Expected: 10/18/2023 (Approximate), Expires: 01/17/2024 Start: 08-24-2023 Pneumococcal vaccination Pneumococcal Vaccine (2 of 2 - PCV) [facility] Start: 08-05-2023 Behavioral Health Screening Behavioral Health Screening [facility] Start: 08-05-2023 Depression Assessment Depression Ass essment [facility] Start: 04-12-2023 Bacteria identified in Urine by Culture [facility] Start: 04-08-2023 [facility] Start: 04-08-2023 Bacteria identified in Urine by Culture [facility] Start: 04-05-2023 Covid-19 Vaccine ( season) Covid-19 Vaccine () [facility] Start: 04-05-2023 [facility] Start: 03-23-2023 Plain chest X-ray XR chest 2V* [facility] Start: 03-23-2023 XR Chest 2 Views [facility] Start: 01-31-2023 CT of head without contrast CT head/brain wo con [facility] Start: 01-31-2023 CT Unspecified body region WO contrast [facility] Start: 11-04-2022 Diagnostic radiograp hy of abdomen [facility] Start: 11-03-2022 Blood chemistry [facility] Start: 11-03-2022 End: 11-03-2022 [facility] Start: 11-03-2022 Referral to infectio us diseases physician [facility] Start: 11-03-2022 Referral to [employer] [facility] Start: 11-03-2022 Hospital admission [facility] Start: 11-03-2022 [facility] Start: 11-02-2022 Consultation [facility] Start: 11-02-2022 Plain X-ray of left hand XR hand LT 2V [facility] Start: 11-02-2022 XR Hand - left 2 Views [facility] Start: 11-02-2022 Bacteria identified in Blood by Culture Blood Culture [facility] Start: 11-02-2022 Blood culture for bacteria, including anaerobic screen Blood Culture [facility] Start: 10-20-2022 CT Abdomen and Pelvi s WO contrast [facility] Start: 10-20-2022 CT of abdomen and pelvis without contrast CT abdomen pelvis wo con [facility] Start: 10-19-2022 Bacteria identified in Urine by Culture Urine Culture [facility] Start: 08-05-2022 DEPRESSION ASSESSMENT DEPRESSION ASS ESSMENT [facility] Start: 04-05-2022 Influenza vaccination C [facility] Start: 04-02-2022 End: 04-02-2022 Departed Referred Departed Referred [facility] [place] Start: 03-08-2022 Registered Recurring Registered Recu rring [facility] Start: 09-19-2021 COVID-19 VACCINE (3 - Booster for Pfizer series) COVID-19 VACCINE (3 - Booster for Pfizer series) [facility] Start: 08-05-2021 DEPRESSION ASSESSMENT DEPRESSION ASS ESSMENT [facility] Start: 2021 COLOGUARD (FIT-DNA) COLOGUARD (FIT-D NA) [facility] Start: 2021 Colonoscopy COLONOSCOPY [facility] Start: 2021 COLORECTAL CANCER SCREENING COLORECTAL CANCER SCREENING [facility] Start: [address] COLONOGRAPHY [facility] Start: 2021 DIABETES SCREEN DIABETES SCREEN [facility] Start: 2021 FECAL OCCULT BLOOD FECAL OCCULT BLOO D [facility] Start: 2021 Lipid panel Lipid Screening [facility] Start: 2021 LIPID SCREEN LIPID SCREEN [facility] Start: 2021 Screening for malign ant neoplasm of colon [facility] Start: 2021 SIGMOIDOSCOPY SIGMOIDOSCOPY [facility] Start: 06-14-2021 COVID-19 VACCINE (3 - Booster for Pfizer series) COVID-19 VACCINE (3 - Booster for Pfizer series) [facility] Start: 04-05-2021 Influenza vaccination INFLUENZA (#1) [facility] Start: 2016 Mammography MAMMOGRAM [facility] Start: 2016 Screening for malign ant neoplasm of breast Mammogram Screening [facility] Start: 2006 HPV TESTING HPV TESTING [facility] Start: 2006 Screening for malign ant neoplasm of cervix HPV Testing [facility] Start: 1997 PAP TESTING PAP TESTING [facility] Start: 1997 Screening for malign ant neoplasm of cervix [facility] Start: 1995 Hepatitis B Vaccine (1 of 3 - 19+ 3-dose series) Hepatitis B Vaccine (1 of 3 - 19+ 3-dose series) [facility] Start: 1995 Urine microalbumin profile [facility] Start: 1994 Annual PCP Team Fitter / Welder gabrielle Disease Visit Annual PCP Team Chronic Disease Visit [facility] Start: 1994 Anxiety Screening Anxiety Screening [facility] Start: 1994 Depression Screening Depression Scre ening [facility] Start: 1994 Hepatitis B surface antibody level LDL Cholesterol [facility] Start: 1994 HEPATITIS C SCREENING HEPATITIS C [facility] Start: 1994 Hepatitis C screening Hepatitis C [facility] Start: 1994 HIV SCREENING HIV SCREENING [facility] Start: 1994 HIV screening HIV Screening [facility] Start: 1988 Adult depression screening assessment DEPRESSION SCREENING [facility] Start: 1986 Diabetic foot examination Diabetic Foot Exam [facility] Start: 1986 Hepatitis B screening Urine Albumin:Creatinine Ratio [facility] Start: 1981 Hemoglobin A1c measurement HbA1C [facility] Start: 1976 HEPATITIS B (1 of 3 - 3-dose series) HEPATITIS B (1 of 3 - 3-dose series) [facility] Start: 1976 Hepatitis B Vaccine (1 of 3 - 3-dose series) Hepatitis B Vaccine (1 of 3 - 3-dose series) [facility] Bacteria identified in Urine by Culture [facility] Bacteria identified in Urine by Culture URINE CULTURE Microbiology Routine Stress incontinence of urine 10/11/2023 3:42 PM EST [facility] Work Phone: Bacteria identified in Urine by Culture URINE CULTURE Microbiology Routine Urinary tract infection without hematuria, site unspecified Ordered: 01/28/2024 [facility] Comment on above: Ordered: 01/28/2024 BACTERIAL VAGINOSIS NAAT BACTERIAL VAGINOSIS NAAT Lab Routine Vaginal pain 11/28/2023 10:03 AM EDT [facility] JAMES/TRICHOMONAS NAAT JAMES/TRICHOMONAS NAAT Lab Routine Vaginal pain 11/28/2023 10:03 AM [facility] Work Phone: Chlamydia trachomati s DNA [Presence] in Unspecified specimen by DEBBIE with probe detection [facility] Glucose measurement estimated from glycated hemoglobin [facility] Hepatitis C virus Ig G Ab [Presence] in Serum or Plasma by Immunoassay [facility] IgA [Mass/volume] in Serum or Plasma [facility] IgG [Mass/volume] in Serum or Plasma [facility] IgM [Mass/volume] in Serum or Plasma [facility] End: 11-30-2022 Mri brain brain stem w/o w/contrast material MRI BRAIN WO/W IVCON Radiology Routine Sensorineural hearing loss (SNHL) of both ears Tinnitus of both ears 1 Occurrences starting 10/31/2021 until 11/30/2022 [facility] Work Phone: Comment on above: 1 Occurrences starti ng 10/31/2021 until 11/30/2022 Neisseria gonorrhoea e DNA [Presence] in Unspecified specimen by DEBBIE with probe detection [facility] Patient Education [facility] Work Phone: Patient referral [facility] Work Phone: Trichomonas vaginali s DNA [Presence] in Unspecified specimen by DEBBIE with probe detection [facility] Urinalysis complete panel - Urine URINALYSIS, WITH MICROSCOPIC Lab Routine Urinary tract infection without hematuria, site unspecified Ordered: 01/28/2024 [facility] Work Phone: Comment on above: Ordered: 01/28/2024 [facility] Immunizations Immunization Date Immunization Notes Care Provider Maryann laurent 08-24-2022 pneumococcal polysaccharide vaccine, 23 valent Michael Morley Other [facility] 04-19-2021 COVID-19 Pfizer Jorgito Schw erer Other [facility] 03-29-2021 COVID-19 Pfizer Jorgito Schw erer Other [facility] Payers Date Payer Category Payer Medicaid [id number] 2021 Medicaid [employer] [id number] 2021-Present [phone] [address] [place] [address] Medicaid [id number] 2021 Medicaid [id number] 2020 Medicaid [id number] 2020 Self-pay [id number] 1976 Unknown [id number] 2.16.840.1.855281.3.579.2.6 47 1976 Unknown [id number] 2.16.840.1.398205.3.579.2.5 93 1976 Unknown [id number] 2.16.840.1.465050.3.579.2.5 93 1976 Unknown [id number] 2.16.840.1.921284.3.579.2.5 93 1976 Unknown [id number] 2.16.840.1.081897.3.579.2.5 93 1976 Unknown [id number] 2.16.840.1.216954.3.579.2.5 93 1976 Unknown [id number] 2.16.840.1.926540.3.579.2.5 93 1976 Unknown [id number] 2.16.840.1.228090.3.579.2.5 93 1976 Unknown [id number] 2.16.840.1.346181.3.579.2.5 93 1976 Unknown [id number] 2.16.840.1.157037.3.579.2.5 93 1976 Unknown [id number] 2.16.840.1.121900.3.579.2.7 27 1976 Unknown [id number] 2.16.840.1.450002.3.579.2.7 27 1976 Unknown [id number] 2.16.840.1.351700.3.579.2.7 27 1976 Unknown [id number] 2.16.840.1.519885.3.579.2.7 27 1976 Unknown [id number] 2.16.840.1.575862.3.579.2.7 27 1976 Unknown [id number] 2.16.840.1.117468.3.579.2.7 27 1976 Unknown [id number] 2.16.840.1.628882.3.579.2.7 27 1976 Unknown [id number] 2.16.840.1.693278.3.579.2.1 259 1976 Unknown [id number] 2.16.840.1.002732.3.579.2.1 259 1976 Unknown [id number] 2.16.840.1.035986.3.579.2.1 259 1976 Unknown [id number] 2.16.840.1.468863.3.579.2.1 259 1976 Unknown [id number] 2.16.840.1.511247.3.579.2.1 259 1976 Unknown [id number] 2.16.840.1.647181.3.579.2.1 259 1976 Unknown [id number] 2.16.840.1.815705.3.579.2.1 259 1976 Unknown [id number] 2.16.840.1.457863.3.579.2.1 259 1976 Unknown [id number] 2.16.840.1.523184.3.579.2.1 259 1976 Unknown [id number] 2.16.840.1.500017.3.579.2.1 259 1976 Unknown [id number] 2.16.840.1.106097.3.579.2.1 259 1976 Unknown [id number] 2.16.840.1.682350.3.579.2.1 259 1959 Unknown [id number] 2.16.840.1.539183.19 1959 Unknown [id number] 2.16840.1.339971.19 Unknown [id number] .840.1.096515.19 Unknown [facility] [id number] Unknown [id number] Unknown Regular Insurance [id number] Unknown Regular Auto/Medical [id number] Unknown [id number] 2.16.840.1.932260.3.579.2.5 31 Unknown [id number] 2.16840.1.744015.3.579.2.5 31 Unknown [id number] 2.16840.1.140477.3.579.2.5 31 Unknown [id number] 2.16840.1.345403.3.579.2.5 31 Unknown [id number] 2.16.840.1.400523.3.579.2.5 31 Unknown [id number] 2.16.840.1.106941.3.579.2.5 31 Unknown [id number] 2.16.840.1.579475.3.579.2.5 31 Unknown [id number] 2.16.840.1.803396.3.579.2.5 31 Unknown [id number] 2.16.840.1.879923.3.579.2.5 31 Unknown [id number] 2.16.840.1.341950.3.579.2.5 31 Unknown [id number] 2.16.840.1.662652.3.579.2.5 31 Unknown [id number] 2.16.840.1.873079.3.579.2.5 31 Unknown [id number] 2.16.840.1.369872.3.579.2.5 31 Unknown [id number] 2.16.840.1.010799.3.579.2.5 31 Unknown [id number] 2.16.840.1.273269.3.579.2.5 31 Unknown [id number] 2.16.840.1.100117.3.579.2.5 31 Unknown [id number] 2.16.840.1.845165.3.579.2.5 31 Worker's Compensation [id number] Social History Date Type Detail Facility Start: 07-20-2021 End: 03-23-2024 Tobacco smoking status NDIS Never smoked tobacco [facility] Start: 07-20-2021 End: 10-11-2023 Tobacco use and exposure Smokeless tobacco non-user [facility] Start: 10-31-2021 End: 03-31-2024 Alcohol intake Current drinker of alcohol (finding) [facility] Start: 1975 Sex Assigned At Not on file [facility] Start: 10-21-2021 End: 05-15-2022 Exposure to SARS-CoV-2 (event) Not sure [facility] Start: 08-05-2005 End: 08-27-2023 Sex Assigned At [facility] Start: 09-03-2021 End: 03-12-2024 Tobacco smoking status NHIS Ex-smoker (finding) [facility] Start: 1975 Sex Assigned At Female F [facility] Tobacco smoking status Never [facility] Start: 10-20-2022 End: 03-16-2023 Tobacco smoking status NHIS Smoker (finding) [facility] Start: 11-02-2022 End: 11-03-2022 Tobacco smoking status NHIS Current some day smoker [facility] Start: 12-13-2022 End: 08-27-2023 History of Social function [facility] Start: 07-30-2022 Gender identity Identifies as female gender (finding) [facility] Start: 07-30-2022 Sexual orientation Bisexual (finding ) [facility] NEGATED: Highlighted row [facility] Medical Equipment Procedure Code Equipment Code Equipment Origin al Text Equipment Identifier Dates Start: 06-07-2020 Goals Date Patient Goal Desired Activity /State Functional Status Date Assessment Result Facility 11-03-2022 Functional status Patient at Baseline [facility] Work Phone: Mental Status Date Assessment Result Facility 11-03-2022 Cognitive function Cognitive Sta tus Patient at Baseline [facility] Work Phone: Clinical Notes 06-12-2021 to 03-31-2024 Johnny Spivey APRN.CNP - 03/31/2024 4:50 PM EDTTelephone Encounter - Sugey Beckett RN - 02/27/2024 2:26 PM EDTTelephone Encounter - Sugey Beckett RN - 02/27/2024 2:26 PM EDT Note Date & Type Note Facility 03-31-2024 Note HNO ID: [id number] Author: JOHNNY PSIVEY APRN.CNP Service: ? Author Type: Nurse Practitioner Type: Progress Notes Filed: 03/31/2024 19:38 Note Text: Lisa Fernando [address] [facility] [address] HISTORY OF PRESENT ILLNESS: Seen 01/27/24 for KEV, UTI, kidney stones Denies gross hematutia Denies burning with urination C/O of constipation have BM Q 2-3 day Pt state that myrbetric did not help Pt stated that was unable to do recommended PTPF due work schedule C/O urine sprays Drink 3 16 oz water daily Drink energy Drinks Pt take showers and use perfume soaps and nevin washes EIM=[id number] Ml US of kidney 09/10/23 IMPRESSION: 1. No obstructive nephrolithiasis in the lower pole of the left kidney. 2. No sonographic evidence of right-sided renal calculus. No hydronephrosis in either kidney. 3. Grossly unremarkable sonographic appearance of the urinary bladder. Coming for KEV, UTI, kidney stones (new finding today 03/31/24) Denies gross hematuria Denies burning with urination Denies any kidney stone pain at present C/O of urinary incontinence Pt stated that cont to have high energy drink intake PVR=2 ML Location: KEV, UTI, kidney stones Pain Character: none Severity Scale: see lab, see X-rays Duration: few years PAST MEDICAL HISTORY 01/2020: H/O abdominal hysterectomy PAST SURGICAL HISTORY No date: TOTAL ABDOM HYSTERECTOMY No family history on file. Social History Tobacco Use Smoking status: Never Smokeless tobacco: Never Vaping Use Vaping status: Never Used Substance Use Topics Alcohol use: Yes Drug use: Never MEDICATIONS: Current Outpatient Medications Medication Sig nabumetone (RELAFEN) 500 mg tablet 500 mg. pregabalin (LYRICA) 100 mg capsule Take 100 mg by mouth two times a day. lumateperone (CAPLYTA) 10.5 mg capsule Take 10.5 mg by mouth once daily. pramipexole (MIRAPEX) 0.125 mg tablet TAKE 1 TABLET BY MOUTH 2 TO 3 HOURS BEFORE BEDTIME cholecalciferol, Vitamin D3, (VITAMIN D3) 1,250 mcg (50,000 unit) cap capsule Take 1 capsule by mouth one time a week. cyanocobalamin (VITAMIN B-12) 1,000 mcg tab Take 1,000 mcg by mouth once daily. rimegepant sulfate (NURTEC ODT ORAL) Take 75 mg by mouth. glipiZIDE (GLUCOTROL) 5 mg tablet Take 5 mg by mouth daily before breakfast. dulaglutide (TRULICITY) 4.5 mg/0.5 mL pen injector Inject 4.25 mg subcutaneously one time a week. carBAMazepine (TEGRETOL) 200 mg tablet Take 200 mg by mouth twice daily. DULoxetine (CYMBALTA) 60 mg capsule Take 60 mg by mouth. ibuprofen (MOTRIN) 800 mg tablet carbidopa-levodopa (SINEMET 10-100) 10-100 mg per tablet 1 tablet daily at bedtime. mirabegron (MYRBETRIQ) 50 mg Tb24 Take 1 tablet by mouth once daily. polyethylene glycol 3350 (MIRALAX) 17 gram/dose powder Take 17 g by mouth once daily as needed. methocarbamol (ROBAXIN) 750 mg tablet Take 750 mg by mouth as needed. No current facility-administered medications for this visit. ALLERGY: ALLERGIES Allergen Reactions Aloe Vera Other: See Comments Baclofen Other: See Comments, Swelling Cephalexin GI Upset, Vomiting Ciprofloxacin Other: See Comments Cyclobenzaprine Hives, Unknown Gabapentin Hives, Unknown, Other: See Comments Menthol Other: See Comments Metformin Hives Morphine GI Upset Nsaids (Non-Steroid* Hives, Rash, Other: See Comments Azithromycin Itching, Rash = REVIEW OF SYSTEMS = GENERAL: No fever, no fatigue and no weight loss. HEAD AND NECK: No headache, no blurred vision and no hearing loss. CARDIOVASCULAR: No chest pain, no palpitations and no leg edema. RESPIRATORY: No cough, wheezing and no shortness of breath. : As indicated in HPI. GI: No epigastric discomfort, no blood in stool and no changes in bowel habits. MUSCLOSKELETAL: No neck pain, no back anin and no joint pain. SKIN: No varicose veins, no rash and no abnormal itching. NEUROLOGICAL: No numbness, no seizures and no tremor. BLOOD: No ekimosis, no hematomas or no bleeding from the gums. PHYSICAL EXAM: VITALS: BP (!) 106/38 Pulse 68 Wt 100.7 kg (222 lb) LMP (LMP Unknown) BMI 39.33 kg/m? GENERAL: Alert, oriented and in no distress. HEAD: Conjuctiva: no palor Sclera: no jaundice NECK: No enlarged thyroid, no palpable lymph nodes, and no engorged neck veins. CHEST: Bilateral symetrical, no crepitations. ABDOMEN: Soft, non tender with no masses or organomegaly. No CVA tenderness. EXTREMITIES: No leg edema, No joint swelling GENITALIA: Deferred IMPRESSION: (Diagnostic Possibilities): Stress incontinence HST kidney stone Lt flank pain (resolved) Recurrent UTI OA Depression DMM Constipation Vaginal Dryness trial coconut oil Total Hysterectomy at age of 23 PLAN: (Management Options):here with PVR today Cont to decline recommend (more content not included)... [facility] 03-31-2024 History of Presen t illness Narrative Lisa Fernando [address] [facility] [address] HISTORY OF PRESENT ILLNESS: Seen 01/27/24 for KEV, UTI, kidney stones Denies gross hematutia Denies burning with urination C/O of constipation have BM Q 2-3 day Pt state that myrbetric did not help Pt stated that was unable to do recommended PTPF due work schedule C/O urine sprays Drink 3 16 oz water daily Drink energy Drinks Pt take showers and use perfume soaps and nevin washes LWT=115 Ml US of kidney 09/10/23 IMPRESSION: 1. No obstructive nephrolithiasis in the lower pole of the left kidney. 2. No sonographic evidence of right-sided renal calculus. No hydronephrosis in either kidney. 3. Grossly unremarkable sonographic appearance of the urinary bladder. Coming for KEV, UTI, kidney stones (new finding today 03/31/24) Denies gross hematuria Denies burning with urination Denies any kidney stone pain at present C/O of urinary incontinence Pt stated that cont to have high energy drink intake PVR=2 ML Location: KEV, UTI, kidney stones Pain Character: none Severity Scale: see lab, see X-rays Duration: few years PAST MEDICAL HISTORY 01/2020: H/O abdominal hysterectomy PAST SURGICAL HISTORY No date: TOTAL ABDOM HYSTERECTOMY No family history on file. Social History Tobacco Use Smoking status: Never Smokeless tobacco: Never Vaping Use Vaping status: Never Used Substance Use Topics Alcohol use: Yes Drug use: Never MEDICATIONS: Current Outpatient Medications Medication Sig nabumetone (RELAFEN) 500 mg tablet 500 mg. pregabalin (LYRICA) 100 mg capsule Take 100 mg by mouth two times a day. lumateperone (CAPLYTA) 10.5 mg capsule Take 10.5 mg by mouth once daily. pramipexole (MIRAPEX) 0.125 mg tablet TAKE 1 TABLET BY MOUTH 2 TO 3 HOURS BEFORE BEDTIME cholecalciferol, Vitamin D3, (VITAMIN D3) 1,250 mcg (50,000 unit) cap capsule Take 1 capsule by mouth one time a week. cyanocobalamin (VITAMIN B-12) 1,000 mcg tab Take 1,000 mcg by mouth once daily. rimegepant sulfate (NURTEC ODT ORAL) Take 75 mg by mouth. glipiZIDE (GLUCOTROL) 5 mg tablet Take 5 mg by mouth daily before breakfast. dulaglutide (TRULICITY) 4.5 mg/0.5 mL pen injector Inject 4.25 mg subcutaneously one time a week. carBAMazepine (TEGRETOL) 200 mg tablet Take 200 mg by mouth twice daily. DULoxetine (CYMBALTA) 60 mg capsule Take 60 mg by mouth. ibuprofen (MOTRIN) 800 mg tablet carbidopa-levodopa (SINEMET 10-100) 10-100 mg per tablet 1 tablet daily at bedtime. mirabegron (MYRBETRIQ) 50 mg Tb24 Take 1 tablet by mouth once daily. polyethylene glycol 3350 (MIRALAX) 17 gram/dose powder Take 17 g by mouth once daily as needed. methocarbamol (ROBAXIN) 750 mg tablet Take 750 mg by mouth as needed. No current facility-administered medications for this visit. ALLERGY: ALLERGIES Allergen Reactions Aloe Vera Other: See Comments Baclofen Other: See Comments, Swelling Cephalexin GI Upset, Vomiting Ciprofloxacin Other: See Comments Cyclobenzaprine Hives, Unknown Gabapentin Hives, Unknown, Other: See Comments Menthol Other: See Comments Metformin Hives Morphine GI Upset Nsaids (Non-Steroid* Hives, Rash, Other: See Comments Azithromycin Itching, Rash = REVIEW OF SYSTEMS = GENERAL: No fever, no fatigue and no weight loss. HEAD & NECK: No headache, no blurred vision and no hearing loss. CARDIOVASCULAR: No chest pain, no palpitations and no leg edema. RESPIRATORY: No cough, wheezing and no shortness of breath. : As indicated in HPI. GI: No epigastric discomfort, no blood in stool and no changes in bowel habits. MUSCLOSKELETAL: No neck pain, no back anin and no joint pain. SKIN: No varicose veins, no rash and no abnormal itching. NEUROLOGICAL: No numbness, no seizures and no tremor. BLOOD: No ekimosis, no hematomas or no bleeding from the gums. PHYSICAL EXAM: VITALS: BP (!) 106/38 Pulse 68 Wt 100.7 kg (222 lb) LMP (LMP Unknown) BMI 39.33 kg/m GENERAL: Alert, oriented and in no distress. HEAD: Conjuctiva: no palor Sclera: no jaundice NECK: No enlarged thyroid, no palpable lymph nodes, and no engorged neck veins. CHEST: Bilateral symetrical, no crepitations. ABDOMEN: Soft, non tender with no masses or organomegaly. No CVA tenderness. EXTREMITIES: No leg edema, No joint swelling GENITALIA: Deferred IMPRESSION: (Diagnostic Possibilities): Stress incontinence HST kidney stone Lt flank pain (resolved) Recurrent UTI OA Depression DMM Constipation Vaginal Dryness trial coconut oil Total Hysterectomy at age of 23 PLAN: (Management Options):here with PVR today Cont to decline recommend PFPT at present UA, Culture will mychart results On mirabegron pt stopped due to no response Encourage to decrease caffeine intake (energy drinks) Cont increase water intake Trial coconut oil finger application nightly for vaginal dryness Cont Cranberry tabs Cont Vit C Good BM regulation with stool softener and fiber Rto 6 months JOHN, kidney stone, UTI, UA, culture, PVR possible need for cysto PRN if symptomatic Medical Decision Making: Problems: Moderate: 2+ stable chronic illnesses Data: Unique test result(s) reviewed: 1 Unique test(s) ordered: 2 Risk: Low: Low risk from testing/treatment Medical Decision Making Level: 4 - Moderate Johnny Spivey APRN.RISK MANAGEMENT ANALYST documented in this encounter [facility] 02-27-2024 Telephone encounter Note BMI SPECIALTY CARE COORDINATION TELEPHONE ENCOUNTER LATE ENTRY 02/24 Spoke with patient upon receiving message from Dr. Morley's office, referring patient for bariatric surgery consult with Dr. Munguia. Directed patient to BMI website where she may register for program; provided brief introduction. Patient appreciative. She stated intent to review website at her leisure and will call with any questions. Will follow and remain available to help as needed. [facility] 02-27-2024 Miscellaneous Notes BMI SPECIALTY CARE COORDINATION TELEPHONE ENCOUNTER LATE ENTRY 02/24 Spoke with patient upon receiving message from Dr. Morley's office, referring patient for bariatric surgery consult with Dr. Munguia. Directed patient to BMI website where she may register for program; provided brief introduction. Patient appreciative. She stated intent to review website at her leisure and will call with any questions. Will follow and remain available to help as needed. documented in this encounter [facility] 02-20-2024 Note HNO ID: [id number] Author: MODE ADLER PT Service: ? Author Type: Physical Therapist Type: Progress Notes Filed: 02/20/2024 16:03 Note Text: 02/20/2024 [facility] PHYSICAL THERAPY DISCONTINUANCE OF CARE Plan of Care Period: Start of Care Date: 10/22/23 Last Visit Date: 10/22/2023 Therapy Program: Patient did not return for follow up care as planned. Please refer to last visit note for interventions provided for this episode of care. Assessment: Unable to formally assess goal achievement. Reason for Discontinuation of Care: Patient has not returned to therapy or scheduled additional follow-up appointments. Mode Adler PT [facility] 02-18-2024 Evaluation note Authored February 18, 2024 4:23 pm Start weight: 246.1 lbs., sh e is down 27.6 lbs today with a weight of 218.5 lbs. and down 2.0 lbs since her last visit on 10/28/2023. Starting waist circumference: 44.0 inches. Starting Date: 04/28/2020. Victoza responder for weight loss. 1. Metabolic syndrome- improving with healthier eating overall and weight loss. She tries to stay away from junk food. She is trying to be more active. She must continue to try to minimize highly processed and takeout foods. She should follow-up closely with the compliance representative dealer. Her A1c before starting Victoza was 6.9, and is now down to 5.5 on 1.8 mg of Victoza daily recently back to 6.2. We have stopped her Metformin due to her good A1c and low B12 levels. She also lives with her and her son. She cares for her grandkids. She must avoid eating fast foods/convenience food eating if possible. Her mom and her maternal grandmother have had similar weight issues and her dad was diabetic. 2. Obesity -significantly improvement with following our program and taking Trulicity 4.5 mg. Her most recent A1c dropped from 6.7 down to 5.0 by her history. So, we stopped her glipizide 5 mg. She has a Dexcom to monitor her blood sugar to avoid hypoglycemia and monitor for hyperglycemia. Her metformin had been previously stopped due to B12 deficiency. B12 now is fully replaced and we could consider using metformin again if needed for diabetic control. She understands if she was on metformin she would need to take her B12 supplement at this point again. In the recent past, she had significant weight regain with the stress of her son having a cardiac arrest at age 17 and requiring a defibrillator. She should continue to try to make more of her own food. She is trying not to skip breakfast and lunch. She is trying to avoid/minimize sugar sweetened beverages. She keeps active babysitting her grandkids. She does not formally exercise. She will consider starting exercise with her jowl trimmer. Before starting our program, her biggest reasons for her weight struggles include skipping breakfast, previously poor sleep, type 2 diabetes, bipolar disorder, depression, stress eating, eating many highly processed foods, decreased activity with her knee and some weight positive medications. She had a past history of significant soda intake. She used to drink 5 large sodas a day when she worked at [employer] or a sixpack of [employer] a day. She should continue to try to minimize/avoid regular soda and fruit juice. She has noted that her drinks a six pack of soda a day. She cannot use Topamax as she has had 3 or 4 bouts of kidney stones. Topamax also cause a rash in the past. In the past, I have recommend she continue to try to decrease her frequency of Lasix use for edema as it seems to have caused hypokalemia, but currently having more issues with some swelling. She must try to cut back the salt in her diet. She has had hypokalemia which could be worsened by Lasix so she needs to increase her fruit and vegetable intake along with her potassium supplement. She may have some lymphedema or lipedema, but she notes it does worsen without the Lasix. She had never been on weight loss medications other than Victoza. She is status post hysterectomy 01/2020 but still has her ovaries. 3. Type 2 diabetes-well controlled/recent worsening with A1c of 6.7 on full dose Victoza and now down to 5.0 on Trulicity and with our program of healthy lifestyle change. She will continue to treat with first-line with lifestyle changes, decrease simple sweets and starches, increased activity and weight loss. Not on metformin due to low B12 levels. Consider SGLT2 inhibitor. 4. Chronic low back pain-with radiculopathy on Trileptal for this condition. She is not currently using nonsteroidals. She follows up with pain management. 5. Restless leg syndrome-she is on Sinemet for this she feels is helpful. She knows she is been tested in the past for sleep apnea and she does not have it. 6. Bilateral OA of the knees she is status post right and left total knee replacements. Treat with weight loss and orthopedic surgery. 7. B12 deficiency-replaced now with high-dose oral replacement off metformin. 8. History of hypokalemia on Lasix. Improved by most recent blood work. She will continue to follow-up with her PCP. 9. Mixed hyperlipidemia-significantly improved/now normalized. She must continue to decrease simple sweets, added sugars, refined starches and bad fats and increasing exercise and weight loss. 10. Bipolar depression-stable. She follows up with her psychiatrist. Follow-up with me in 8-12 weeks. New labs needed: Up-to-date. Recheck A1c at least every 6 months with family health services. Monitor B12 level and full metabolic blood work regularly with her PCP. [facility] Work Phone: [phone]) 195-268306-25-2024 Instructions* Patient Instructions* Johnny Spivey APRN.CNP - 01/28/2024 5:16 PM EDT 1.Decrease caffeine intake (energy drinks) 2.Cont increase water intake 3.coconut oil finger application nightly 4.Cranberry tabs 5.Vit C 500-1000 mg 6.Probiotic 7.Avoid perfume soaps or body washes in vaginal area 8.metamucil or stool soften daily [facility] History of Present illness Narrative* Johnny Spivey APRN.CNP - 01/28/2024 4:30 PM EDT Lisa Fernando [address] [facility] [address] HISTORY OF PRESENT ILLNESS: Seen 11/28/[address] Castro For stress incontinence US of kidney 09/10/23 IMPRESSION: 1. No obstructive nephrolithiasis in the lower pole of the left kidney. 2. No sonographic evidence of right-sided renal calculus. No hydronephrosis in either kidney. 3. Grossly unremarkable sonographic appearance of the urinary bladder. Coming for KEV, UTI, kidney stones (new finding today 01/27/24) Denies gross hematutia Denies burning with urination C/O of constipation have BM Q 2-3 day Pt state that myrbetric did not help Pt stated that was unable to do recommended PTPF due work schedule C/O urine sprays Drink 3 16 oz water daily LTV=217 Ml Drink energy Drinks Pt take showers and use perfume soaps and nevin washes A1C 12/11/23=5.1 (per pt outside lab Culture 10/14/23=>=100,000 CFU/ml Proteus mirabilis Abnormal Placed on macrobid by Dr. Hall Location: KEV, UTI, kidney stones Pain Character: none Severity Scale: see lab, see X-rays Duration: few years PAST MEDICAL HISTORY Diagnosis Date H/O abdominal hysterectomy 01/2020 PAST SURGICAL HISTORY Procedure Laterality Date TOTAL ABDOM HYSTERECTOMY No family history on file. Social History Tobacco Use Smoking status: Never Smokeless tobacco: Never Vaping Use Vaping Use: Never used Substance Use Topics Alcohol use: Yes Drug use: Never MEDICATIONS: Current Outpatient Medications Medication Sig nabumetone (RELAFEN) 500 mg tablet 500 mg. pregabalin (LYRICA) 100 mg capsule Take 100 mg by mouth two times a day. lumateperone (CAPLYTA) 10.5 mg capsule Take 10.5 mg by mouth once daily. pramipexole (MIRAPEX) 0.125 mg tablet TAKE 1 TABLET BY MOUTH 2 TO 3 HOURS BEFORE BEDTIME cholecalciferol, Vitamin D3, (VITAMIN D3) 1,250 mcg (50,000 unit) cap capsule Take 1 capsule by mouth one time a week. cyanocobalamin (VITAMIN B-12) 1,000 mcg tab Take 1,000 mcg by mouth once daily. rimegepant sulfate (NURTEC ODT ORAL) Take 75 mg by mouth. glipiZIDE (GLUCOTROL) 5 mg tablet Take 5 mg by mouth daily before breakfast. dulaglutide (TRULICITY) 4.5 mg/0.5 mL pen injector Inject 4.25 mg subcutaneously one time a week. carBAMazepine (TEGRETOL) 200 mg tablet Take 200 mg by mouth twice daily. DULoxetine (CYMBALTA) 60 mg capsule Take 60 mg by mouth. ibuprofen (MOTRIN) 800 mg tablet carbidopa-levodopa (SINEMET 10-100) 10-100 mg per tablet 1 tablet daily at bedtime. mirabegron (MYRBETRIQ) 50 mg Tb24 Take 1 tablet by mouth once daily. (Patient not taking: Reported on 01/28/2024) polyethylene glycol 3350 (MIRALAX) 17 gram/dose powder Take 17 g by mouth once daily as needed. (Patient not taking: Reported on 01/28/2024) methocarbamol (ROBAXIN) 750 mg tablet Take 750 mg by mouth as needed. (Patient not taking: Reportedon 01/28/2024) No current facility-administered medications for this visit. ALLERGY: ALLERGIES Allergen Reactions Aloe Vera Other: See Comments Baclofen Other: See Comments, Swelling Cephalexin GI Upset, Vomiting Ciprofloxacin Other: See Comments Cyclobenzaprine Hives, Unknown Gabapentin Hives, Unknown, Other: See Comments Menthol Other: See Comments Metformin Hives Morphine GI Upset Nsaids (Non-Steroid* Hives, Rash, Other: See Comments Azithromycin Itching, Rash REVIEW OF SYSTEMS GENERAL: No fever, no fatigue and no weight loss. HEAD & NECK: No headache, no blurred vision and no hearing loss. CARDIOVASCULAR: No chest pain, no palpitations and no leg edema. RESPIRATORY: No cough, wheezing and no shortness of breath. : As indicated in HPI. GI: No epigastric discomfort, no blood in stool and no changes in bowel habits. MUSCLOSKELETAL: No neck pain, no back anin and no joint pain. SKIN: No varicose veins, no rash and no abnormal itching. NEUROLOGICAL: No numbness, no seizures and no tremor. BLOOD: No ekimosis, no hematomas or no bleeding from the gums. PHYSICAL EXAM: VITALS: BP 105/59 Pulse 93 Resp 16 LMP (LMP Unknown) GENERAL: Alert, oriented and in no distress. HEAD: Conjuctiva: no palor Sclera: no jaundice NECK: No enlarged thyroid, no palpable lymph nodes, and no engorged neck veins. CHEST: Bilateral symetrical, no crepitations. ABDOMEN: Soft, non tender with no masses or organomegaly. No CVA tenderness. EXTREMITIES: No leg edema, No joint swelling GENITALIA: Deferred IMPRESSION: (Diagnostic Possibilities): Stress incontinence HST kidney stone Lt flank pain Recurrent UTI OA Depression DMM Constipation Vaginal Dryness trial coconut oil Total Hysterectomy at age of 23 PLAN: (Management Options): PVR today Recommend PFPT pt is declining at present time UA, Culture will mychart results On mirabegron started by Dr. Castro Decrease caffeine intake (energy drinks) Cont increase water intake Trial coconut oil finger application nightly for vaginal dryness Trial Cranberry tabs Trial Vit C Trial Probiotic Good BM regulation with stool softener and fiber Avoid perfume soaps or simon washes in vaginal area Rto 2 months JOHN, possible need for cysto Medical Decision Making: Problems: Moderate: 1+ chronic illnesses with change Data: Unique test result(s) reviewed: 3+ Unique test(s) ordered: 2 Risk: Low: Low risk from testing/treatment Medical Decision Making Level: 4 - Moderate Johnny Spivey APRN.RISK MANAGEMENT ANALYST [facility] NoteHNO ID: [id number] Author: JOHNNY SPIVEY APRN.RISK MANAGEMENT ANALYST Service: ? Author Type: Nurse Practitioner Type: Progress Notes Filed: 01/28/2024 18:04 Note Text: Lisa Fernando [address] [facility] [address] HISTORY OF PRESENT ILLNESS: Seen 11/28/[address] Castro For stress incontinence US of kidney 09/10/23 IMPRESSION: 1. No obstructive nephrolithiasis in the lower pole of the left kidney. 2. No sonographic evidence of right-sided renal calculus. No hydronephrosis in either kidney. 3. Grossly unremarkable sonographic appearance of the urinary bladder. Coming for KEV, UTI, kidney stones (new finding today 01/27/24) Denies gross hematutia Denies burning with urination C/O of constipation have BM Q 2-3 day Pt state that myrbetric did not help Pt stated that was unable to do recommended PTPF due work schedule C/O urine sprays Drink 3 16 oz water daily KKT=[id number] Ml Drink energy Drinks Pt take showers and use perfume soaps and nevin washes A1C 12/11/23=5.1 (per pt outside lab Culture 10/14/23=>=100,000 CFU/ml Proteus mirabilis Abnormal Placed on macrobid by Dr. Hall Location: KEV, UTI, kidney stones Pain Character: none Severity Scale: see lab, see X-rays Duration: few years PAST MEDICAL HISTORY Diagnosis Date H/O abdominal hysterectomy 01/2020 PAST SURGICAL HISTORY Procedure Laterality Date TOTAL ABDOM HYSTERECTOMY No family history on file. Social History Tobacco Use Smoking status: Never Smokeless tobacco: Never Vaping Use Vaping Use: Never used Substance Use Topics Alcohol use: Yes Drug use: Never MEDICATIONS: Current Outpatient Medications Medication Sig nabumetone (RELAFEN) 500 mg tablet 500 mg. pregabalin (LYRICA) 100 mg capsule Take 100 mg by mouth two times a day. lumateperone (CAPLYTA) 10.5 mg capsule Take 10.5 mg by mouth once daily. pramipexole (MIRAPEX) 0.125 mg tablet TAKE 1 TABLET BY MOUTH 2 TO 3 HOURS BEFORE BEDTIME cholecalciferol, Vitamin D3, (VITAMIN D3) 1,250 mcg (50,000 unit) cap capsule Take 1 capsule by mouth one time a week. cyanocobalamin (VITAMIN B-12) 1,000 mcg tab Take 1,000 mcg by mouth once daily. rimegepant sulfate (NURTEC ODT ORAL) Take 75 mg by mouth. glipiZIDE (GLUCOTROL) 5 mg tablet Take 5 mg by mouth daily before breakfast. dulaglutide (TRULICITY) 4.5 mg/0.5 mL pen injector Inject 4.25 mg subcutaneously one time a week. carBAMazepine (TEGRETOL) 200 mg tablet Take 200 mg by mouth twice daily. DULoxetine (CYMBALTA) 60 mg capsule Take 60 mg by mouth. ibuprofen (MOTRIN) 800 mg tablet carbidopa-levodopa (SINEMET 10-100) 10-100 mg per tablet 1 tablet daily at bedtime. mirabegron (MYRBETRIQ) 50 mg Tb24 Take 1 tablet by mouth once daily. (Patient not taking: Reported on 01/28/2024) polyethylene glycol 3350 (MIRALAX) 17 gram/dose powder Take 17 g by mouth once daily as needed. (Patient not taking: Reported on 01/28/2024) methocarbamol (ROBAXIN) 750 mg tablet Take 750 mg by mouth as needed. (Patient not taking: Reported on 01/28/2024) No current facility-administered medications for this visit. ALLERGY: ALLERGIES Allergen Reactions Aloe Vera Other: See Comments Baclofen Other: See Comments, Swelling Cephalexin GI Upset, Vomiting Ciprofloxacin Other: See Comments Cyclobenzaprine Hives, Unknown Gabapentin Hives, Unknown, Other: See Comments Menthol Other: See Comments Metformin Hives Morphine GI Upset Nsaids (Non-Steroid* Hives, Rash, Other: See Comments Azithromycin Itching, Rash REVIEW OF SYSTEMS GENERAL: No fever, no fatigue and no weight loss. HEAD AND NECK: No headache, no blurred vision and no hearing loss. CARDIOVASCULAR: No chest pain, no palpitations and no leg edema. RESPIRATORY: No cough, wheezing and no shortness of breath. : As indicated in HPI. GI: No epigastric discomfort, no blood in stool and no changes in bowel habits. MUSCLOSKELETAL: No neck pain, no back anin and no joint pain. SKIN: No varicose veins, no rash and no abnormal itching. NEUROLOGICAL: No numbness, no seizures and no tremor. BLOOD: No ekimosis, no hematomas or no bleeding from the gums. PHYSICAL EXAM: VITALS: BP 105/59 Pulse 93 Resp 16 LMP (LMP Unknown) GENERAL: Alert, oriented and in no distress. HEAD: Conjuctiva: no palor Sclera: no jaundice NECK: No enlarged thyroid, no palpable lymph nodes, and no engorged neck veins. CHEST: Bilateral symetrical, no crepitations. ABDOMEN: Soft, non tender with no masses or organomegaly. No CVA tenderness. EXTREMITIES: No leg edema, No joint swelling GENITALIA: Deferred IMPRESSION: (Diagnostic Possibilities): Stress incontinence HST kidney stone Lt flank pain Recurrent UTI OA Depression DMM Constipation Vaginal Dryness trial coconut oil Total Hysterectomy at age of 23 PLAN: (Manageme (more content not included)...[facility] 12-23-2023 NoteHNO ID: [id number] Author: MIMI HERMOSILLO OD Service: ? Author Type: PROPERTY SPECIALIST Type: Progress Notes Filed: 12/23/2023 18:28 Note Text: (E11.9) Type 2 diabetes mellitus without retinopathy (HCC) (primary encounter diagnosis) Comment: stable no npdr Plan: monitor in 12 months FULL (H52.4) Bilateral presbyopia Comment: change in rx needed Plan new rx given (H04.123) Dry eye syndrome of bilateral lacrimal glands Comment: mild dry eye Plan: add artificial tears prn I have confirmed and edited as necessary the relevant ophthalmic history, ROS, and the neuro exam findings as obtained by others. I have seen and examined this patient. I have discussed the case and the management of this patient's care with the Resident/Fellow, if applicable. I also have reviewed and agree with the assessment and plan as stated above and agree with all of its relevant components. Mimi Hermosillo OD December 23, 2023 6:27 [facility]05-20-2024 History of Present illness Narrative* Mimi Hermosillo OD - 12/23/2023 6:27 PM EDT (E11.9) Type 2 diabetes mellitus without retinopathy (HCC) (primary encounter diagnosis) Comment: stable no npdr Plan: monitor in 12 months FULL (H52.4) Bilateral presbyopia Comment: change in rx needed Plan new rx given (H04.123) Dry eye syndrome of bilateral lacrimal glands Comment: mild dry eye Plan: add artificial tears prn I have confirmed and edited as necessary the relevant ophthalmic history, ROS, and the neuro exam findings as obtained by others. I have seen and examined this patient. I have discussed the case and the management of this patient's care with the Resident/Fellow, if applicable. I also have reviewed and agree with the assessment and plan as stated above and agree withall of its relevant components. Mimi Hermosillo OD December 23, 2023 6:27 PM documented in [facility]24 NoteHNO ID: [id number] Author: CHRISTEL MAHAN MA Service: ? Author Type: Web Site Admin Type: Progress Notes Filed: 11/28/2023 10:46 Note Text: PVR = 0 ml Via bladder scan.[facility]04-25-2024 History of Present illness Narrative* Christel Mahan MA - 11/28/2023 9:12 AM EDT PVR = 0 ml Via bladder scan. * Jacqui Castro MD - 11/27/2023 9:46 AM EDT Images from the original note were not included. [facility] NEW PATIENT CLINIC NOTE SERVICE DATE: 11/27/2023 SERVICE TIME: 9:46 AM NAME: Lisa Fernando REFERRED BY: Consultation requested by Dr. Carter Hall [id number] [facility] [id number] for an opinion regarding stress urinary incontinence. My final recommendations will be communicated back to the requesting physician by way of shared medical record or letter via US mail. CHIEF COMPLAINT: incontience HISTORY OF PRESENT ILLNESS: Lisa Fernando is a 48 year old F P2 with PMH including asthma, OA anddepression presenting with incontinence. The patient reports a lot of problems with kidney stonesand incontinence. Seen by Dr. Hall for left flank pain and recurrent UTIs 10/11/23 Sx with UTI include dysuria and burning Also reports recurrent UTIs - tested and treated OSH Does not know A1c but says it was one point high Has bladder PT scheduled in February - with her work schedule Susceptibility data from last 90 days. Collected Specimen Info Organism Ampicillin Ampicillin/Sulbact Cefazolin Cefepime Ceftriaxone Ciprofloxacin Ertapenem Gentamicin Meropenem Nitrofurantoin Piperacillin/Tazobac Tobramycin Trimeth sulfameth 10/11/23 Urine Random from Urine, Midstream Clean Catch Proteus mirabilis S S S S S S S S S R S S S JOHN: Yes URGENCY: Yes UI: Yes PADS: 2-3 thick FREQUENCY: every hour, sometimes less NOCTURIA: 1 per night STRAINING TO VOID: No EMPTIES COMPLETELY: Unsure UTI: 1-2 past 12 months FLUIDS: ~50 oz water, some Sprite Caffeine: occ energy drink SEXUALLY ACTIVE: yes DYSPAREUNIA: YES PREGNANCIES: 2, Para 2, Vaginal births 1, C-sections 1 Post-menopause: yes Have you had a hysterectomy:YES Postmenopausal bleeding:Not applicable Sense of vaginal bulge:YES HEMATURIA HX: Yes STONES: Yes GI: Constipation Do you have any new weakness,balance or coordination problems:NO Do you have a history of any diagnosed back or Neurological problems:YES PAST MEDICAL HISTORY PAST MEDICAL HISTORY Diagnosis Date H/O abdominal hysterectomy 01/2020 PAST SURGICAL HISTORY PAST SURGICAL HISTORY Procedure Laterality Date TOTAL ABDOM HYSTERECTOMY FAMILY HISTORY No family history on file. SOCIAL HISTORY Social History Tobacco Use Smoking status: Never Smokeless tobacco: Never Vaping Use Vaping Use: Never used Substance Use Topics Alcohol use: Yes Drug use: Never MEDICATIONS: Current Outpatient Medications Medication Sig lumateperone (CAPLYTA) 10.5 mg capsule Take 10.5 mg by mouth once daily. pramipexole (MIRAPEX) 0.125 mg tablet TAKE 1 TABLET BY MOUTH 2 TO 3 HOURS BEFORE BEDTIME cholecalciferol, Vitamin D3, (VITAMIN D3) 1,250 mcg (50,000 unit) cap capsule Take 1 capsule by mouth one time a week. cyanocobalamin (VITAMIN B-12) 1,000 mcg tab Take 1,000 mcg by mouth once daily. rimegepant sulfate (NURTEC ODT ORAL) Take 75 mg by mouth. glipiZIDE (GLUCOTROL) 5 mg tablet Take 5 mg by mouth daily before breakfast. dulaglutide (TRULICITY) 4.5 mg/0.5 mL pen injector Inject 4.25 mg subcutaneously one time a week. methocarbamol (ROBAXIN) 750 mg tablet Take 750 mg by mouth as needed. carBAMazepine (TEGRETOL) 200 mg tablet Take 200 mg by mouth twice daily. DULoxetine (CYMBALTA) 60 mg capsule Take 60 mg by mouth. furosemide (LASIX) 40 mg tablet furosemide 40 mg tablet TAKE 1 TABLET BY MOUTH ONCE DAILY FOR 30 DAYS ibuprofen (MOTRIN) 800 mg tablet carbidopa-levodopa (SINEMET 10-100) 10-100 mg per tablet 1 tablet daily at bedtime. No current facility-administered medications for this visit. CURRENT ALLERGIES: Allergies As of Date: 11/28/2023 Allergen Noted Reaction ALOE VERA 04/02/2012 Other: See Comments BACLOFEN 01/01/2020 Other: See Comments and Swelling CEPHALEXIN 04/02/2012 GI Upset and Vomiting CIPROFLOXACIN 04/02/2012 Other: See Comments CYCLOBENZAPRINE 11/11/2013 Hives and Unknown GABAPENTIN 04/02/2012 Hives, Unknown, and Other: See Comments MENTHOL 04/02/2012 Other: See Comments METFORMIN 11/11/2013 Hives MORPHINE 08/27/2023 GI Upset NSAIDS (NON-STEROIDAL ANTI-INFLAM*01/04/2019 Hives, Rash, and Other: See Comments AZITHROMYCIN 04/02/2012 Itching and Rash Fully Assessed 10/15/2023 OBJECTIVE PHYSICAL EXAM: Patient declined a document analyst There were no vitals filed for this visit. There is no height or weight on file to calculate BMI. General: No acute distress, well appearing Abdomen: Soft, NT, nondistended Extremities: Normal range of motion, no LE edema : External genitalia: Normal appearing, no skin lesions Urethra: Normal appearing urethral meatus, no masses, nontender, no diverticulum, +hypermobility, +cough stress test Bladder: Nontender Vagina: Very sensitive to gentle one finger exam. Otherwise Normal appearing, minimal discharge, nocysts or masses. Pelvic Floor Musculature: 4/5 TTP throughout Anus and perineum grossly nl POP-Q: Prolapse noted: Exam limited by pain. Yes Ba = -1, PVR: 0 mL via bladder US DATA: Labs UA: Normal Imaging RBUS 09/10/23 IMPRESSION: 1. No obstructive nephrolithiasis in the lower pole of the left kidney. 2. No sonographic evidence of right-sided renal calculus. No hydronephrosis in either kidney. 3. Grossly unremarkable sonographic appearance of the urinary bladder. ASSESSMENT and PLAN: 48 year old female with KEV associated with morbid obesity and DM, also PFD. Vaginal swab sent. Consider empiric treatment for BV regardless given severe vaginal sensitivity Agree with PFPT Trial of mirabegron. VV FU - need to assess HbA1c prior to consideration of intervention. Likely needs MUS with prolapserepair for optimal symptom improvement. All of the patients questions and concerns were discussed in detail. STAFF ATTESTATION I have personally interviewed and examined this patient and we discussed the recommendations in detail. I agree with clinical documentation manager and have edited the note. Jacqui Castro MD [facility] documented in this [facility]24 NoteHNO ID: [id number] Author: JACQUI CASTRO MD Service: ? Author Type: Physician Type: Progress Notes Filed: 11/28/2023 10:46 Note Text: [facility] NEW PATIENT CLINIC NOTE SERVICE DATE: 11/27/2023 SERVICE TIME: 9:46 AM NAME: Lisa Fernando REFERRED BY: Consultation requested by Dr. Carter Hall [id number] [facility] [place] [address] for an opinion regarding stress urinary incontinence. My final recommendations will be communicated back to the requesting physician by way of shared medical record or letter via [place] mail. CHIEF COMPLAINT: incontience HISTORY OF PRESENT ILLNESS: Lisa Fernando is a 48 year old F P2 with PMH including asthma, OA and depression presenting with incontinence. The patient reports a lot of problems with kidney stones and incontinence. Seen by Dr. Hall for left flank pain and recurrent UTIs 10/11/23 Sx with UTI include dysuria and burning Also reports recurrent UTIs - tested and treated OSH Does not know A1c but says it was one point high Has bladder PT scheduled in February - with her work schedule Susceptibility data from last 90 days. Collected Specimen Info Organism Ampicillin Ampicillin/Sulbact Cefazolin Cefepime Ceftriaxone Ciprofloxacin Ertapenem Gentamicin Meropenem Nitrofurantoin Piperacillin/Tazobac Tobramycin Trimeth sulfameth 10/11/23 Urine Random from Urine, Midstream Clean Catch Proteus mirabilis S S S S S S S S S R S S S JOHN: Yes URGENCY: Yes UI: Yes PADS: 2-3 thick FREQUENCY: every hour, sometimes less NOCTURIA: 1 per night STRAINING TO VOID: No EMPTIES COMPLETELY: Unsure UTI: 1-2 past 12 months FLUIDS: ~50 oz water, some Sprite Caffeine: occ energy drink SEXUALLY ACTIVE: yes DYSPAREUNIA: YES PREGNANCIES: 2, Para 2, Vaginal births 1, C-sections 1 Post-menopause: yes Have you had a hysterectomy:YES Postmenopausal bleeding:Not applicable Sense of vaginal bulge:YES HEMATURIA HX: Yes STONES: Yes GI: Constipation Do you have any new weakness,balance or coordination problems:NO Do you have a history of any diagnosed back or Neurological problems:YES PAST MEDICAL HISTORY PAST MEDICAL HISTORY Diagnosis Date H/O abdominal hysterectomy 01/2020 PAST SURGICAL HISTORY PAST SURGICAL HISTORY Procedure Laterality Date TOTAL ABDOM HYSTERECTOMY FAMILY HISTORY No family history on file. SOCIAL HISTORY Social History Tobacco Use Smoking status: Never Smokeless tobacco: Never Vaping Use Vaping Use: Never used Substance Use Topics Alcohol use: Yes Drug use: Never MEDICATIONS: Current Outpatient Medications Medication Sig lumateperone (CAPLYTA) 10.5 mg capsule Take 10.5 mg by mouth once daily. pramipexole (MIRAPEX) 0.125 mg tablet TAKE 1 TABLET BY MOUTH 2 TO 3 HOURS BEFORE BEDTIME cholecalciferol, Vitamin D3, (VITAMIN D3) 1,250 mcg (50,000 unit) cap capsule Take 1 capsule by mouth one time a week. cyanocobalamin (VITAMIN B-12) 1,000 mcg tab Take 1,000 mcg by mouth once daily. rimegepant sulfate (NURTEC ODT ORAL) Take 75 mg by mouth. glipiZIDE (GLUCOTROL) 5 mg tablet Take 5 mg by mouth daily before breakfast. dulaglutide (TRULICITY) 4.5 mg/0.5 mL pen injector Inject 4.25 mg subcutaneously one time a week. methocarbamol (ROBAXIN) 750 mg tablet Take 750 mg by mouth as needed. carBAMazepine (TEGRETOL) 200 mg tablet Take 200 mg by mouth twice daily. DULoxetine (CYMBALTA) 60 mg capsule Take 60 mg by mouth. furosemide (LASIX) 40 mg tablet furosemide 40 mg tablet TAKE 1 TABLET BY MOUTH ONCE DAILY FOR 30 DAYS ibuprofen (MOTRIN) 800 mg tablet carbidopa-levodopa (SINEMET 10-100) 10-100 mg per tablet 1 tablet daily at bedtime. No current facility-administered medications for this visit. CURRENT ALLERGIES: Allergies As of Date: 11/28/2023 Allergen Noted Reaction ALOE VERA 04/02/2012 Other: See Comments BACLOFEN 01/01/2020 Other: See Comments and Swelling CEPHALEXIN 04/02/2012 GI Upset and Vomiting CIPROFLOXACIN 04/02/2012 Other: See Comments CYCLOBENZAPRINE 11/11/2013 Hives and Unknown GABAPENTIN 04/02/2012 Hives, Unknown, and Other: See Comments MENTHOL 04/02/2012 Other: See Comments METFORMIN 11/11/2013 Hives MORPHINE 08/27/2023 GI Upset NSAIDS (NON-STEROIDAL ANTI-INFLAM*01/04/2019 Hives, Rash, and Other: See Comments AZITHROMYCIN 04/02/2012 Itching and Rash Fully Assessed 10/15/2023 OBJECTIVE PHYSICAL EXAM: Patient declined a document analyst There were no vitals filed for this visit. There is no height or weight on file to calculate BMI. General: No acute distress, well appearing Abdomen: Soft, NT, nondistended Extremities: Normal range of motion, no LE edema : External genitalia: Normal appearing, no skin lesions Urethra: Normal appearing urethral meatus, no masses, nontender, no diverticulum, +hypermobility, + cough stress test (more content not included)... [facility]03-25-2024 Evaluation note* Author Susan Orantes [facility] Authored February 18, 2024 4:06 pm Start weight: 246.1 lbs., sh niharika is down 27.6 lbs today with a weight of 218.5 lbs. and down 2.0 lbs since her last visit on 10/28/2023. Starting waist circumference: 44.0 inches. Starting Date: 04/28/2020. Victoza responder for weight loss. 1. Metabolic syndrome- improving with healthier eating overall and weight loss. She tries to stay away from junk food. She is trying to be more active. She must continue to try to minimize highly processed and takeout foods. She should follow-up closely with the compliance representative dealer. Her A1c before starting Victoza was 6.9, and is now down to 5.5 on 1.8 mg of Victoza daily recently back to 6.2. We have stopped her Metformin due to her good A1c and low B12 levels. She also lives with her and her son. She cares for her grandkids. She must avoid eating fast foods/convenience food eating if possible. Her mom and her maternal grandmother have had similar weight issues and her dad was diabetic. 2. Obesity -significantly improved with following our program and now taking Trulicity 4.5 mg. Her most recent A1c dropped from 6.7 down to 5.0 by her history. We stopped her glipizide 5 mg. She has a Dexcom to monitor her blood sugar to avoid hypoglycemia and monitor for hyperglycemia. Her metformin had been previously stopped due to B12 deficiency. B12 now is fully replaced and we could consider using metformin again if needed for diabetic control. She understands if she was on metformin she would need to take her B12 supplement at this point we are stopping her B12 supplement. In the recent past, she had significant weight regain with the stress of her son having a cardiac arrest at age 17 and requiring a defibrillator. She should continue to try to make more of her own food. She is trying not to skip breakfast and lunch. She is trying to avoid/minimize sugar sweetened beverages. She keeps active babysitting her grandkids. She does not formally exercise. She could consider starting exercise with her jowl trimmer. Before starting our program, her biggest reasons for her weight struggles include skipping breakfast, previously poor sleep, type 2 diabetes, bipolar disorder, depression, stress eating, eating many highly processed foods, decreased activity with her knee and some weight positive medications. She had a past history of significant soda intake. She used to drink 5 large sodas a day when she worked at [employer] or a sixpack of [employer] a day. She should continue to try to minimize/avoid regular soda and fruit juice. She has noted that her drinks a six pack of soda a day. She cannot use Topamax as she has had 3 or 4 bouts of kidney stones. Topamax also cause a rash in the past. In the past, I have recommend she continue to try to decrease her frequency of Lasix use for edema as it seems to have caused hypokalemia, but currently having more issues with some swelling. She must try to cut back the salt in her diet. She has had hypokalemia which could be worsened by Lasix so she needs to increase her fruit and vegetable intake along with her potassium supplement. She may have some lymphedema or lipedema, but she notes it does worsen without the Lasix. She had never been on weight loss medications other than Victoza. She is status post hysterectomy 01/2020 but still has her ovaries. 3. Type 2 diabetes-well controlled/recent worsening with A1c of 6.7 on full dose Victoza and now down to 5.0 on Trulicity and with our program of healthy lifestyle change. She will continue to treat with first-line with lifestyle changes, decrease simple sweets and starches, increased activity and weight loss. Not on metformin due to low B12 levels. Consider SGLT2 inhibitor. 4. Chronic low back pain-with radiculopathy on Trileptal for this condition. She is not currently using nonsteroidals. She follows up with pain management. 5. Restless leg syndrome-she is on Sinemet for this she feels is helpful. She knows she is been tested in the past for sleep apnea and she does not have it. 6. Bilateral OA of the knees she is status post right and left total knee replacements. Treat with weight loss and orthopedic surgery. 7. B12 deficiency-replaced now with high-dose oral replacement off metformin. 8. History of hypokalemia on Lasix. Improved by most recent blood work. She will continue to follow-up with her PCP. 9. Mixed hyperlipidemia-significantly improved/now normalized. She must continue to decrease simple sweets, added sugars, refined starches and bad fats and increasing exercise and weight loss. 10. Bipolar depression-stable. She follows up with her psychiatrist. Follow-up with me in 12 weeks. New labs needed: Up-to-date. Recheck A1c at least every 6 months with family health services. Monitor B12 level and full metabolic blood work regularly with her PCP. [facility] Work Phone: [phone]) 290-772303-25-2024 Evaluation note* Author Michael Morley [facility] Authored October 28, 2023 10: 42am Start weight: 246.1 lbs., sh niharika is down 25.6 lbs today with a weight of 220.5 lbs. and down 1.7 lbs since her last appointment on 09/02/2023. Starting waist circumference: 44.0 inches. Starting Date: 04/28/2020. Victoza responder for weight loss. 1. Metabolic syndrome- improving with healthier eating overall and weight loss. She tries to stay away from junk food. She is trying to be more active. She must continue to try to minimize highly processed and takeout foods. She should follow-up closely with the compliance representative dealer. Her A1c before starting Victoza was 6.9, and is now down to 5.5 on 1.8 mg of Victoza daily recently back to 6.2. We have stopped her Metformin due to her good A1c and low B12 levels. She also lives with her and her son. She cares for her grandkids. She must avoid eating fast foods/convenience food eating if possible. Her mom and her maternal grandmother have had similar weight issues and her dad was diabetic. 2. Obesity -significantly improved with following our program and now taking Trulicity 4.5 mg. Her most recent A1c dropped from 6.7 down to 5.0 by her history. We stopped her glipizide 5 mg. She has a Dexcom to monitor her blood sugar to avoid hypoglycemia and monitor for hyperglycemia. Her metformin had been previously stopped due to B12 deficiency. B12 now is fully replaced and we could consider using metformin again if needed for diabetic control. She understands if she was on metformin she would need to take her B12 supplement at this point we are stopping her B12 supplement. In the recent past, she had significant weight regain with the stress of her son having a cardiac arrest at age 17 and requiring a defibrillator. She should continue to try to make more of her own food. She is trying not to skip breakfast and lunch. She is trying to avoid/minimize sugar sweetened beverages. She keeps active babysitting her grandkids. She does not formally exercise. She could consider starting exercise with her jowl trimmer. Before starting our program, her biggest reasons for her weight struggles include skipping breakfast, previously poor sleep, type 2 diabetes, bipolar disorder, depression, stress eating, eating many highly processed foods, decreased activity with her knee and some weight positive medications. She had a past history of significant soda intake. She used to drink 5 large sodas a day when she worked at [employer] or a sixpack of [employer] a day. She should continue to try to minimize/avoid regular soda and fruit juice. She has noted that her drinks a six pack of soda a day. She cannot use Topamax as she has had 3 or 4 bouts of kidney stones. Topamax also cause a rash in the past. In the past, I have recommend she continue to try to decrease her frequency of Lasix use for edema as it seems to have caused hypokalemia, but currently having more issues with some swelling. She must try to cut back the salt in her diet. She has had hypokalemia which could be worsened by Lasix so she needs to increase her fruit and vegetable intake along with her potassium supplement. She may have some lymphedema or lipedema, but she notes it does worsen without the Lasix. She had never been on weight loss medications other than Victoza. She is status post hysterectomy 01/2020 but still has her ovaries. 3. Type 2 diabetes-well controlled/recent worsening with A1c of 6.7 on full dose Victoza and now down to 5.0 on Trulicity and with our program of healthy lifestyle change. She will continue to treat with first-line with lifestyle changes, decrease simple sweets and starches, increased activity and weight loss. Not on metformin due to low B12 levels. Consider SGLT2 inhibitor. 4. Chronic low back pain-with radiculopathy on Trileptal for this condition. She is not currently using nonsteroidals. She follows up with pain management. 5. Restless leg syndrome-she is on Sinemet for this she feels is helpful. She knows she is been tested in the past for sleep apnea and she does not have it. 6. Bilateral OA of the knees she is status post right and left total knee replacements. Treat with weight loss and orthopedic surgery. 7. B12 deficiency-replaced now with high-dose oral replacement off metformin. 8. History of hypokalemia on Lasix. Improved by most recent blood work. She will continue to follow-up with her PCP. 9. Mixed hyperlipidemia-significantly improved/now normalized. She must continue to decrease simple sweets, added sugars, refined starches and bad fats and increasing exercise and weight loss. 10. Bipolar depression-stable. She follows up with her psychiatrist. Follow-up with me in 12 weeks. New labs needed: Up-to-date. Recheck A1c at least every 6 months with family health services. Monitor B12 level and full metabolic blood work regularly with her PCP. [facility] Work Phone: [phone]) 331-869003-20-2024 NoteOrthopedic Surgery Subjective 06/19/2023 - Revision, Release, Carpal Tunnel - Left and Tightrope Procedure Left Thumb - Left 10/23/23 Lisa Fernando is a 48 y.o. female 126 days s/p Revision, Release, Carpal Tunnel - Left and Tightrope Procedure Left Thumb - Left. She says that her symptoms significantly and she is overall doing well, denies any recurrent carpal tunnel like symptoms. She only notes an occasional soreness on the back of her thumb some activity but states it is fairly infrequent. She is more or less using the hand normally for daily activities and otherwise. 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 Denies any new or additional symptoms, denies any symptoms on the right side. 07/23/23 Patient notes to be improving since her last visit. She is wearing her brace. She notes her numbness and tingling has improved since her surgery. Her thumb is less painful since her surgery and she is able to use it more. Patient History Past Surgical History: Procedure Laterality Date BREAST LUMPECTOMY Left CARPAL TUNNEL RELEASE Bilateral SECTION, LOW TRANSVERSE CHOLECYSTECTOMY HAND ARTHROPLASTY Left 03/19/2022 [facility] HAND ARTHROPLASTY Left KIDNEY STONE SURGERY KNEE ARTHROPLASTY Bilateral KNEE SURGERY Left LITHOTRIPSY Past Medical History: Diagnosis Date Anxiety Arthritis Depression Diabetes mellitus (CMS/HCC) Muscle ache LEGS Objective Left UE/Hand: Inspection- no swelling, no deformity or contracture, supple skin with no lesions, Several well-healed surgical incisions Non-tender to palpation throughout ROM: full painless motion to all digits and the wrist including with full motion of the thumb in all planes Strength: tooth cutter contact wheel 5/5, thumb 5/5, interossei 5/5. wrist extension/flexion 5/5 Sensation: intact over median, ulnar, and radial nerve distributions Negative carpal tunnel compression test and Negative Tinel's at the Carpal Tunnel Cardiovascular: Well-perfused digits Imaging No imaging performed at this visit. Assessment/Plan Lisa Fernando is a 48 y.o. female s/p Revision, Release, Carpal Tunnel - Left and Tightrope Procedure Left Thumb - Left (06/19/2023). she is doing very well today without any symptoms aside from an infrequent pain to the thumb. She is back doing her normal activities using her left hand without any significant difficulty. CSI to right long trigger finger performed in office today. Will also get labs for scleroderma given her stiff/ness -Follow up as needed Celso Bueno MD Orthopaedic Surgery 10/23/23 1:54 PM By using the attestations below, the signing clinician agrees that I have read and verify that the documentation has been personally reviewed by me and ensure that the documentation accurately reflects the encounter. GC: I personally saw this patient on the day of the encounter, performed the shi portion(s) of the service and participated in the management and confirm the resident's documentation. Please note there may be an additional personal documentation from me.[facility]03-19-2024 History of Present illness Narrative* Mode Adler, PT - 10/22/2023 2:07 PM EDT Program_ID:[id number] Access Code: [email or web address] URL: [email or web address] Date: 10-22-2023 Prepared By: Mode Adler Program Notes Exercises - Seated Ankle Inversion Eversion AROM - 1 x daily - 7 x weekly - 3 sets - 10 reps - Hook lying multifidi isometric - 1 x daily - 7 x weekly - 1 sets - 2 reps - Neutral Posture in Standing - x daily - x weekly - sets - reps * Mode Adler PT - 10/22/2023 1:28 PM EDT Images from the original note were not included. Episode Visit Count: 1 Therapist That Will Accept/Oversee The Plan Of Care: Mode Adler Start of Care Date: 10/22/23 Onset Date: 10/21/22 Plan of Care Certification Date: 10/22/23 Next Certification Due Date: 12/17/23 Patient Identified by Name and Date of : Yes REHABILITATION AND SPORTS THERAPY PHYSICAL THERAPY EVALUATION PLAN OF CARE: Assessment: Lisa Fernando presents with chief complaint of back pain and left ankle pain that interferes with standing, walking, heavy exertion, lifting, physical activities, recreational activities . She presents with impairments in ADL's, gait, posture, range of motion, strength, symptom management, and tissue tenderness. PROMIS (Patient-Reported Outcomes Measurement Information System) scores were reviewed and identified as a rehabilitation concern. Prognosis for therapy is Good due to: current objective clinical presentation . She will benefit from skilled therapy services to meet the goals established for this plan of care as noted below. Based on the patient's history, the components of the examination, the patient presentation, and required decision-making as described in this evaluation, this patient's evaluation falls into the low category of complexity as described by AMA CPT codes. Patient can benefit from skilled care to address patient's impairments and improve their function. Classification Low Back Pain Classification: Symptom Modulation Goals for Episode of Care: created on 10/22/23 through 12/17/23 Patient will be able to stand and walk for 1 hour without pain [place] in home exercise program. Patient will decrease pain rating by 2 points to meet minimal clinical important difference for numeric pain rating scale. Patient will increase active ROM of left ankle eversion to 20 degrees to allow pt to to improve gait mechanics / gait pattern . Patient will demonstrate increase in trunk strength to good during manual muscle testing in order to improve function for prior functional tasks. Normal gait. Planned Interventions, Frequency, and Duration: Current Frequency: 1x every other week Duration: 8 weeks Total Number of Visits Planned: 4 Planned Treatment Interventions: Therapeutic exercise (71938), Neuromuscular re- education (64488), Manual therapy (39053), Therapeutic activities (55841), Self- alf management (32214), Gait Training (67002), Patient/Family/Caregiver Education, Body Mechanics Training, Functional training PLAN FOR NEXT VISIT: Patient demonstrates good understanding of plan of care and treatment. The above goals and plan of care were discussed and agreed upon by patient/family. SUBJECTIVE: Patient presents to therapy with left ankle pain. Patient notes ankle pain has been going on about 1 year. Patient notes back pain has been going on for longer. Notes increased pain with most activity. Functional Limitations: standing, walking, heavy exertion, lifting, physical activities, recreational activities Prior Level of Function: Independent without limitations Relevant History Past Relevant Surgical Conditions: Total Knee Replacement-Left, Total Knee Replacement-Right Employment: (starting work at [employer] soon) Home Environment Home Type: [place] Entry To Home: Stairs, With Rail Number Of Stairs Into Home: 3 Intake Information: Prescription present Previous Treatment: Physical Therapy , Injections , NSAIDs Falls Interview: No positive findings with falls interview Red Flags Vertebral Fracture Red Flags: Female Vertebral Fracture Clinical Reasoning: Proceed with caution due to the above (1- 2) risk factors Abdominal Aortic Aneurysm Clinical Reasoning: No identified risk factors. Cancer Clinical Reasoning: No identified risk factors. Infection Clinical Reasoning: No identified risk factors. Cauda Equina Syndrome Clinical Reasoning: No identified risk factors. STarT Back Distress Subscale: 8 STarT Back Total Score: 5 STarT Back Risk Score: 5 Red Flags - Cervical Cancer Clinical Reasoning: No identified risk factors. Infection Clinical Reasoning: No identified risk factors. Pain: Pain Pain Level: (no number given) Pain Location: Ankle - Left Description: Aching Frequency: Continuous Additional Pain Information : Location 2 Pain Level 2: (no number given) Pain Location 2: Back Description 2: Aching Frequency 2: Continuous Detailed Pain Score: Yes Post Treatment Pain Post Treatment Pain Level: 0 Post Treatment Pain Location: Ankle - Left Post Treatment Pain Score 2: 4/10 Post Treatment Pain Location 2: Back Post Treatment Pain Description 2: Sore, Aching PROMIS Scales 10/21/2023 10/13/2023 Higher is Better Phys Func - Score 35 (moderate dysfunction) Phys Func - Percentile 7 Self-Eff Symptom - Score 28 (Very Low) Self-Eff Symptom - Percentile 1 T-scores: mean of general population = 50. 5 points is clinically meaningfully difference Percentiles provide an indication of how the patient's score ranks in relation to the general population. Higher percentile rankings indicate better function/quality of life. 50th percentile is the average of the general population and indicates half of respondents had a worse score. OBJECTIVE MEASURES WITH LEVEL OF FUNCTION: Posture / Alignment Lumbo - Pelvic Alignment: elevatated sternum with thoracic block posterior tilted Sensation - Lumbar Sensation: Grossly Intact LE Strength Trunk Strength: poor R LE Strength: 5/5 L LE Strength: 5/5 Gait Gait Observation: antalix limited weight acceptance and push off on the right Vitals Pulse: 90 SpO2: 93 % Education: Education Learning Preferences: Demonstration, Explanation, Performance, Printed Materials Barriers: None Learning/educational needs: Home exercise program, Plan of Care, Posture Education Provided: Yes, see treatment interventions for education provided Education Provided To: Patient Education Mode/Type: Demonstration, Explanation/Discussion, Literature/Printed Materials, Performance Response to Education/Teach Back: Requires Review/Additional Education TREATMENT: PT Treatment Interventions: Manual Therapy, Therapeutic Exercise, Neuromuscular Re-Education Evaluation Therapeutic Exercise: 1: ankle inversion and eversion 20 x 2 2: Hook lying multifidi isometric: patient in hook lying with hands on anterior superior iliac spine (ASIS) to self monitor for motion. Patient instructed to move both knees to one side without moving pelvis. Patient holds position 1 minutes then alternates to other side. 6 repetitions performed. Skilled Intervention: Patient was educated in proper exercise technique and purpose for exercises. Skilled judgment was used in selection of appropriate interventions. Provided written instruction for home exercise program to facilitate proper performance and compliance. Correct performance of therapeutic exercises was facilitated with verbal, visual, and tactile cuing. Manual Therapy: 1: joint mobilizaiton calcaneus on talus distraction grade 2, 3 2: joint mobilization midfoot inferior medial glide grade 2, 3 Skilled Intervention: Manual skills to improve joint mobility, ROM, and decrease pain. Utilized anatomy knowledge of the therapist, and assessment of patient's response to intervention. Neuromuscular Re-Education: 1: standing posture training to decrease thoracic block to netural to decrease stress at spine Skilled Intervention: Education in proprioceptive/kinesthetic awareness during standing. Education and demonstration for posture and positioning for tone management. Provided written instruction for home program to facilitate proper performance and compliance. Billing * Evaluation Low Complexity: 1 Unit Therapeutic Exercise Treatment Minutes: 8 Manual TherapyTreatment Minutes: 10 Neuromuscular Re-Education Treatment Minutes: 5 Skilled Treatment Time Minutes (timed and untimed codes): 40 Total Session Time (minutes): 40 Session Start Time : 1333 Session Stop Time : 1413 Mode Adler PT [facility] NoteHNO ID: [id number] Author: MODE ADLER PT Service: ? Author Type: Physical Therapist Type: Progress Notes Filed: 10/22/2023 16:01 Note Text: Episode Visit Count: 1 Therapist That Will Accept/Oversee The Plan Of Care: Mode Adler Start of Care Date: 10/22/23 Onset Date: 10/21/22 Plan of Care Certification Date: 10/22/23 Next Certification Due Date: 12/17/23 Patient Identified by Name and Date of : Yes REHABILITATION AND SPORTS THERAPY PHYSICAL THERAPY EVALUATION PLAN OF CARE: Assessment: Lisa Fernando presents with chief complaint of back pain and left ankle pain that interferes with standing, walking, heavy exertion, lifting, physical activities, recreational activities . She presents with impairments in ADL's, gait, posture, range of motion, strength, symptom management, and tissue tenderness. PROMIS? (Patient-Reported Outcomes Measurement Information System) scores were reviewed and identified as a rehabilitation concern. Prognosis for therapy is Good due to: current objective clinical presentation . She will benefit from skilled therapy services to meet the goals established for this plan of care as noted below. Based on the patient's history, the components of the examination, the patient presentation, and required decision-making as described in this evaluation, this patient's evaluation falls into the low category of complexity as described by AMA CPT codes. Patient can benefit from skilled care to address patient's impairments and improve their function. Classification Low Back Pain Classification: Symptom Modulation Goals for Episode of Care: created on 10/22/23 through 12/17/23 Patient will be able to stand and walk for 1 hour without pain [place] in home exercise program. Patient will decrease pain rating by 2 points to meet minimal clinical important difference for numeric pain rating scale. Patient will increase active ROM of left ankle eversion to 20 degrees to allow pt to to improve gait mechanics / gait pattern . Patient will demonstrate increase in trunk strength to good during manual muscle testing in order to improve function for prior functional tasks. Normal gait. Planned Interventions, Frequency, and Duration: Current Frequency: 1x every other week Duration: 8 weeks Total Number of Visits Planned: 4 Planned Treatment Interventions: Therapeutic exercise (66036), Neuromuscular re-education (96476), Manual therapy (73570), Therapeutic activities (14405), Self-alf management (31542), Gait Training (21167), Patient/Family/Caregiver Education, Body Mechanics Training, Functional training PLAN FOR NEXT VISIT: Patient demonstrates good understanding of plan of care and treatment. The above goals and plan of care were discussed and agreed upon by patient/family. SUBJECTIVE: Patient presents to therapy with left ankle pain. Patient notes ankle pain has been going on about 1 year. Patient notes back pain has been going on for longer. Notes increased pain with most activity. Functional Limitations: standing, walking, heavy exertion, lifting, physical activities, recreational activities Prior Level of Function: Independent without limitations Relevant History Past Relevant Surgical Conditions: Total Knee Replacement-Left, Total Knee Replacement-Right Employment: (starting work at [employer] soon) Home Environment Home Type: [place] Entry To Home: Stairs, With Rail Number Of Stairs Into Home: 3 Intake Information: Prescription present Previous Treatment: Physical Therapy , Injections , NSAIDs Falls Interview: No positive findings with falls interview Red Flags Vertebral Fracture Red Flags: Female Vertebral Fracture Clinical Reasoning: Proceed with caution due to the above (1-2) risk factors Abdominal Aortic Aneurysm Clinical Reasoning: No identified risk factors. Cancer Clinical Reasoning: No identified risk factors. Infection Clinical Reasoning: No identified risk factors. Cauda Equina Syndrome Clinical Reasoning: No identified risk factors. STarT Back Distress Subscale: 8 STarT Back Total Score: 5 STarT Back Risk Score: 5 Red Flags - Cervical Cancer Clinical Reasoning: No identified risk factors. Infection Clinical Reasoning: No identified risk factors. Pain: Pain Pain Level: (no number given) Pain Location: Ankle - Left Description: Aching Frequency: Continuous Additional Pain Information : Location 2 Pain Level 2: (no number given) Pain Location 2: Back Description 2: Aching Frequency 2: Continuous Detailed Pain Score: Yes Post Treatment Pain Post Treatment Pain Level: 0 Post Treatment Pain Location: Ankle - Left Post Treatment Pain Score 2: 4/10 Post Treatment Pain Location 2: Back Post Treatment Pain Description 2: Sore, Aching PROMIS Scales 10/21/2023 10/13/2023 Higher is Better Phys Func - Score 35 (moderate dysfunction) Phys Func - Percentile 7 Self-Eff Symptom - Scor (more content not included)...[facility] 10-15-2023 NoteHNO ID: [id number] Author: BARBARA WEINSTEIN RT(Yolanda) Service: ? Author Type: Technologist Type: Progress Notes Filed: 10/15/2023 10:10 Note Text: Radiology Service Progress Note PATIENT NAME: Lisa Fernando DATE OF SERVICE: October 15, 2023 TIME: 10:09 AM PATIENT IDENTITY VERIFICATION COMPLETED USING TWO (2) IDENTIFIERS: Name and Date of confirmed by patient verbally. FALL SCREENING: Has the patient had 2 falls in the last year or 1 fall with injury or currently using an Ambulatory Assistive Device (Walker, Cane, Wheelchair, Crutches, etc.)? No PATIENT GENDER DATA: Female. status: : No status: N/A PATIENT RELEVANT IMPLANT DATA REVIEWED: Not Applicable PATIENT PRESENTS WITH AN IMPLANTABLE OR ATTACHED DOLL MAKER: No RADIOLOGY DEPARTMENT: LUMBAR XRAY AP/LAT AND FLEXION/EXTENSION PERIPHERAL IV DATA: Not applicable SIGNED BY: RT Madhu(R) October 15, 2023 10:09 [facility]03-12-2024 History of Present illness Narrative* Barbara Weinstein RT(R) - 10/15/2023 10:09 AM EDT Radiology Service Progress Note PATIENT NAME: Lisa Fernando DATE OF SERVICE: October 15, 2023 TIME: 10:09 AM PATIENT IDENTITY VERIFICATION COMPLETED USING TWO (2) IDENTIFIERS: Name and Date of confirmedby patient verbally. FALL SCREENING: Has the patient had 2 falls in the last year or 1 fall with injury or currently using an Ambulatory Assistive Device (Walker, Cane, Wheelchair, Crutches, etc.)? No PATIENT GENDER DATA: Female. status: : No status: N/A PATIENT RELEVANT IMPLANT DATA REVIEWED: Not Applicable PATIENT PRESENTS WITH AN IMPLANTABLE OR ATTACHED DOLL MAKER: No RADIOLOGY DEPARTMENT: LUMBAR XRAY AP/LAT AND FLEXION/EXTENSION PERIPHERAL IV DATA: Not applicable SIGNED BY: KAYDEN Leung) October 15, 2023 10:09 AM documented in [facility] NoteHNO ID: [id number] Author: MELONY ALAMO PA-C Service: ? Author Type: Physician Ballroom Dancer Type: Progress Notes Filed: 10/15/2023 10:00 Note Text: Spine Care Path Low Back Pain - Chronic (> 12 weeks) Initial Exam SUBJECTIVE HISTORY OF PRESENT ILLNESS: Lisa Fernando is a 48 year old female who presents with a chief complaint of mid to low back pain and is seen in consultation requested by Dr. Carter Hall for an opinion regarding mid to low back pain. My final recommendations will be communicated back to the requesting physician by way of shared medical record or letter via [place] mail. Other Issues Addressed at the Visit Today: None. Precipitating Event: None PAIN EVALUATION 10/15/2023 0854 Pain Level: 6 Description: Aching;Spasm Duration Units: Years Frequency: Continuous Pain Radiation: mid to low back Aggravating Factors: Lifting, Standing, Walking, Driving (riding in a car), Entering/exiting a car, laying down Alleviating Factors: Heating pad during use Pain Ratio: NA Prior Therapy: Physical therapy, injections, mobic, robaxin Litigation: No Workers' Compensation: No YELLOW AND BLUE FLAGS YES-Neg Attitude; Back Pain is Disabling YES-Avoiding Activity (for Fear of Pain) YES-Depression or Anxiety Disorders YES-Social Problems No-Substance Use Disorder No-Job Dissatisfaction No-Financial Disincentives Patient Entered Questionnaires 10/13/2023 Spine Questions Pain Location: Lower back Pain Duration: More than 5 years Pain over last 6 months: Every day or nearly every day in the past 6 months Symptoms from neck/cervical spine: Yes Employment Status: Looking for work, unemployed Off work 1 month or more due to back/neck pain: Yes Applied for/receive disability/WC due to low back/neck pain Yes Involved in law suit/legal claim: No 10/13/2023 Spine Red Flags Any type of cancer: No Unexplained fever: No Bowel or bladder disfunction: Yes Unintentional weight loss: No Osteoporosis: No 10/13/2023 Neck Questionnaires Benzel Modified MOON Score 9 (A lower score indicates increased pain and issues.) PROMIS Score Percentiles 10/13/2023 Physical Health Physical Function Percentile 7 Sleep Percentile 0 Fatigue Percentile 1 Pain Interference Percentile 2 10/13/2023 PROMIS SOCIAL ROLE SCORE Social Role Satisfaction Percentile 8 Percentiles provide an indication of how the patient's score ranks in relation to the general population. Higher percentile rankings indicate better function/quality of life. 50th percentile is the average of the general population and indicates half of respondents had a worse score. Depression Screenin10/13/2023 PHQ-9 Score 14 10/13/2023 PHQ-9 Self-harm Question Question 9 Not at all PHQ-9 Self-Harm (Item 9) response options: 0 Not at all 1 Several days 2 More than half the days 3 Nearly every day PHQ-9 Levels: 0-4 No - mild depression 5-9 Mild depression 10-14 Moderate depression 15-19 Moderately severe depression 20-27 Severe depression ACTIVE PROBLEM LIST No Show Right Ankle Pain Pain in Right Foot Lisfranc Dislocation Djd (Degenerative Joint Disease), Ankle and Foot Pttd (Posterior Tibial Tendon Dysfunction) Morbid Obesity (Hcc) PAST MEDICAL HISTORY Diagnosis Date H/O abdominal hysterectomy 01/2020 PAST SURGICAL HISTORY Procedure Laterality Date TOTAL ABDOM HYSTERECTOMY Social History Tobacco Use Smoking status: Never Smokeless tobacco: Never Vaping Use Vaping Use: Never used Substance Use Topics Alcohol use: Yes Drug use: Never No family history on file. ALLERGIES Allergen Reactions Aloe Vera Other: See Comments Baclofen Other: See Comments, Swelling Cephalexin GI Upset, Vomiting Ciprofloxacin Other: See Comments Cyclobenzaprine Hives, Unknown Gabapentin Hives, Unknown, Other: See Comments Menthol Other: See Comments Metformin Hives Morphine GI Upset Nsaids (Non-Steroid* Hives, Rash, Other: See Comments Azithromycin Itching, Rash CURRENT MEDICATIONS: nitrofurantoin monohydrate and macrocrystal (MACROBID) 100 mg capsule Take 1 capsule by mouth two times a day for 5 days. lumateperone (CAPLYTA) 10.5 mg capsule Take 10.5 mg by mouth once daily. pramipexole (MIRAPEX) 0.125 mg tablet TAKE 1 TABLET BY MOUTH 2 TO 3 HOURS BEFORE BEDTIME cholecalciferol, Vitamin D3, (VITAMIN D3) 1,250 mcg (50,000 unit) cap capsule Take 1 capsule by mouth one time a week. sodium chloride-aloe vera (AYR SALINE) topical nasal gel 1 application by INTRANASAL route as needed. (Patient not taking: Reported on 10/11/2023) cyanocobalamin (VITAMIN B-12) 1,000 mcg tab Take 1,000 mcg by mouth once daily. rimegepant sulfate (NURTEC ODT ORAL) Take 75 mg by mouth. glipiZIDE (GLUCOTROL) 5 mg tablet Take 5 mg by mouth daily before breakfast. dulaglutide (TRULICITY) 4.5 mg/0.5 mL pen injector Inject 4.25 mg subcutaneously one time a week. metho (more content not included)...[facility]03-12-2024 History of Present illness Narrative* Melony Alamo PA-C - 10/15/2023 8:55 AM EDT Spine Care Path Low Back Pain - Chronic (> 12 weeks) Initial Exam SUBJECTIVE HISTORY OF PRESENT ILLNESS: Lisa Fernando is a 48 year old female who presents with a chief complaint of mid to low back painand is seen in consultation requested by Dr. Carter Hall for an opinion regarding mid to low back pain. My final recommendations will be communicated back to the requesting physician by way of shared medical record or letter via [place] mail. Other Issues Addressed at the Visit Today: None. Precipitating Event: None PAIN EVALUATION 10/15/2023 0854 Pain Level: 6 Description: Aching;Spasm Duration Units: Years Frequency: Continuous Pain Radiation: mid to low back Aggravating Factors: Lifting, Standing, Walking, Driving (riding in a car), Entering/exiting a car,laying down Alleviating Factors: Heating pad during use Pain Ratio: NA Prior Therapy: Physical therapy, injections, mobic, robaxin Litigation: No Workers' Compensation: No YELLOW & BLUE FLAGS YES-Neg Attitude; Back Pain is Disabling YES-Avoiding Activity (for Fear of Pain) YES-Depression or Anxiety Disorders YES-Social Problems No-Substance Use Disorder No-Job Dissatisfaction No-Financial Disincentives Patient Entered Questionnaires 10/13/2023 Spine Questions Pain Location: Lower back Pain Duration: More than 5 years Pain over last 6 months: Every day or nearly every day in the past 6 months Symptoms from neck/cervical spine: Yes Employment Status: Looking for work, unemployed Off work 1 month or more due to back/neck pain: Yes Applied for/receive disability/WC due to low back/neck pain Yes Involved in law suit/legal claim: No 10/13/2023 Spine Red Flags Any type of cancer: No Unexplained fever: No Bowel or bladder disfunction: Yes Unintentional weight loss: No Osteoporosis: No 10/13/2023 Neck Questionnaires Benzel Modified MOON Score 9 (A lower score indicates increased pain and issues.) PROMIS Score Percentiles 10/13/2023 Physical Health Physical Function Percentile 7 Sleep Percentile 0 Fatigue Percentile 1 Pain Interference Percentile 2 10/13/2023 PROMIS SOCIAL ROLE SCORE Social Role Satisfaction Percentile 8 Percentiles provide an indication of how the patient's score ranks in relation to the general population. Higher percentile rankings indicate better function/quality of life. 50th percentile is the average of the general population and indicates half of respondents had a worse score. Depression Screenin10/13/2023 PHQ-9 Score 14 10/13/2023 PHQ-9 Self-harm Question Question 9 Not at all PHQ-9 Self-Harm (Item 9) response options: 0 Not at all 1 Several days 2 More than half the days 3 Nearly every day PHQ-9 Levels: 0-4 No - mild depression 5-9 Mild depression 10-14 Moderate depression 15-19 Moderately severe depression 20-27 Severe depression ACTIVE PROBLEM LIST No Show Right Ankle Pain Pain in Right Foot Lisfranc Dislocation Djd (Degenerative Joint Disease), Ankle and Foot Pttd (Posterior Tibial Tendon Dysfunction) Morbid Obesity (Hcc) PAST MEDICAL HISTORY Diagnosis Date H/O abdominal hysterectomy 01/2020 PAST SURGICAL HISTORY Procedure Laterality Date TOTAL ABDOM HYSTERECTOMY Social History Tobacco Use Smoking status: Never Smokeless tobacco: Never Vaping Use Vaping Use: Never used Substance Use Topics Alcohol use: Yes Drug use: Never No family history on file. ALLERGIES Allergen Reactions Aloe Vera Other: See Comments Baclofen Other: See Comments, Swelling Cephalexin GI Upset, Vomiting Ciprofloxacin Other: See Comments Cyclobenzaprine Hives, Unknown Gabapentin Hives, Unknown, Other: See Comments Menthol Other: See Comments Metformin Hives Morphine GI Upset Nsaids (Non-Steroid* Hives, Rash, Other: See Comments Azithromycin Itching, Rash CURRENT MEDICATIONS: nitrofurantoin monohydrate and macrocrystal (MACROBID) 100 mg capsule Take 1 capsule by mouth two times a day for 5 days. lumateperone (CAPLYTA) 10.5 mg capsule Take 10.5 mg by mouth once daily. pramipexole (MIRAPEX) 0.125 mg tablet TAKE 1 TABLET BY MOUTH 2 TO 3 HOURS BEFORE BEDTIME cholecalciferol, Vitamin D3, (VITAMIN D3) 1,250 mcg (50,000 unit) cap capsule Take 1 capsule by mouth one time a week. sodium chloride-aloe vera (AYR SALINE) topical nasal gel 1 application by INTRANASAL route as needed. (Patient not taking: Reported on 10/11/2023) cyanocobalamin (VITAMIN B-12) 1,000 mcg tab Take 1,000 mcg by mouth once daily. rimegepant sulfate (NURTEC ODT ORAL) Take 75 mg by mouth. glipiZIDE (GLUCOTROL) 5 mg tablet Take 5 mg by mouth daily before breakfast. dulaglutide (TRULICITY) 4.5 mg/0.5 mL pen injector Inject 4.25 mg subcutaneously one time a week. methocarbamol (ROBAXIN) 750 mg tablet Take 750 mg by mouth as needed. pregabalin (LYRICA) 50 mg capsule Take 50 mg by mouth two times a day. carBAMazepine (TEGRETOL) 200 mg tablet Take 200 mg by mouth twice daily. potassium chloride SR (MICRO-K) 10 mEq CR capsule 1 capsule DAILY (route: oral) loratadine (CLARITIN) 10 mg tablet Take 1 tablet by mouth once daily. sodium chloride (SALINE NASAL) 0.65 % nasal spray Use 2 Sprays in the nose twice daily. fluticasone (FLONASE ALLERGY RELIEF) 50 mcg/actuation nasal spray Use 1 [place] in each nostril twicedaily. DULoxetine (CYMBALTA) 60 mg capsule Take 60 mg by mouth. celecoxib (CELEBREX) 200 mg capsule 1 capsule DAILY (route: oral) doxycycline hyclate (VIBRAMYCIN) 100 mg capsule furosemide (LASIX) 40 mg tablet furosemide 40 mg tablet TAKE 1 TABLET BY MOUTH ONCE DAILY FOR 30 DAYS ibuprofen (MOTRIN) 800 mg tablet liraglutide (VICTOZA) 0.6 mg/0.1 mL (18 mg/3 mL) Victoza 3-Arden 0.6 mg/0.1 mL (18 mg/3 mL) subcutaneous pen injector metFORMIN (GLUCOPHAGE) 500 mg tablet metformin 500 mg tablet TAKE 1 TABLET BY MOUTH TWICE DAILY potassium chloride SR (MICRO-K) 10 mEq CR capsule potassium chloride ER 10 mEq capsule,extended release albuterol HFA (PROVENTIL HFA, VENTOLIN HFA) 90 mcg/actuation inhaler Inhale 2 Puffs as instructed. meloxicam (MOBIC) 15 mg tablet Take 1 tablet by mouth once daily. PROAIR HFA 90 mcg/actuation inhaler as needed. (Patient not taking: Reported on 04/04/2022) carbidopa-levodopa (SINEMET 10-100) 10-100 mg per tablet 1 tablet daily at bedtime. LATUDA 20 mg tablet 1 tablet once daily. OXcarbazepine (TRILEPTAL) 150 mg tablet 1 tablet twice daily. REVIEW OF SYSTEMS: PAIN ASSESSMENT: See HPI. GENERAL: Denies fever, chills malaise and weight loss. HEENT: No recent change in vision or hearing. CARDIOVASCULAR: Denies chest pain, history of A-fib, valvular disease, or pacemaker/ICD. RESPIRATORY: Denies SOB, sputum production, and hemoptysis. GI: Denies GI ulcers, inflammatory disease, or liver disease. : Denies change in frequency or urgency, kidney disease, and burning with urination. MUSCULOSKELETAL: Positive for back pain, low back pain, and joint pain SKIN: Rash and Abnormal itching PSYCHOLOGICAL: Denies uncontrolled depression or anxiety. NEURO: Headaches ENDOCRINE: Positive for DM on Oral Agent HEMATOLOGY/LYMPHOLOGY: Denies cancer, bleeding or clotting disorders, anemia,and DVT's. ALLERGIC/IMMUNOLOGICAL: Denies risks for infection, or recent MRSA infections. OBJECTIVE: PHYSICAL EXAM LMP (LMP Unknown) see encounter Imaging Ordered: For possible Lumbar Spinal Stenosis due to interventional planning. SIGNATURE: Melony Alamo PA-C PATIENT NAME: Lisa Fernando DATE: October 15, 2023 TIME: 8:56 AM HPI explored in detail with patient and edited as necessary. See notes for physical exam and treatment plan. CC - New pt. Chronic low back pain w/o radiating pain. H/o b/l TKA. Left foot Lizfranc hx, surgery.OA ankles/feet. B/L CTS, 2x on left, 1x on right. N/T R hand, globally, with position changes, holding items. Does have cock up wrist splints at home. Prior PT for her chronic LBP, prior injections for the spine. No neck pain. Restless leg, poor sleep hygiene. MRI outside clinic at [facility], has report, will review. Prior pelvic floor PT, had bronchitis, needs to reschedule for BBD. Motrin/Advilfor pain and Tylenol. RX Cymbalta 60mg. Lyrica 100mg. Tried Celebrex/Mobic in the past. Neurontin caused rash. Hysterectomy, since has had bladder dysfunction intermittently. Here for options for her chronic LBP. No new constitutional sx. PHYSICAL EXAM: GENERAL APPEARANCE - well nourished, well hydrated, no apparent distress, overweight SKIN - No skin breakdown noted over cervical and lumbar spine. HEAD - Normal cephalic, atraumatic EYES - Extra ocular movement intact, no conjunctivitis, no nystagmus. EARS - No drainage noted, pinna intact NOSE - No epistaxis noted THROAT - No thyromegaly, no gross lymphadenopathy VASCULAR - b/l peripheral edema, No significant varicosity ABDOMEN - no guarding noted NEURO - Alert and oriented, cooperative, answers questions appropriately GAIT -slight antalgic gait noted. unable to demonstrate heel and toe stand/walk smoothly. L>>R (prior Lizfranc fx/surgery, b/l OA ankles/feet/ligamentous sx) SENSORY EXAM - Grossly intact to superficial light touch bilaterally to upper and lower limbs MOTOR STRENGTH DURING SEATED NEURO EXAM - No significant weakness b/l biceps, triceps, bilaterally in Hip flexors, hip extensors, knee flexors, knee extensors, plantar flexors, dorsiflexors and extensor hallux longus, MUSCLE STRETCH REFLEXES - symmetric bilaterally in patella and achilles. ROM lumbar spine wnl Rotation to rt and lt is within functional limits in cervical spine Lateral bending to rt and lt is within funtional limits in lumbar spine. HIP ROM - no significant loss in internal and external rotation b/l. Elbow ROM was within functional limits in flexion and extension KNEE ROM - No significant loss in terminal extension b/l. ANKLE ROM - no significant loss in plantar flexion and dorsiflexion b/l. MUSCLE MASS - No gross muscle atrophy or asymmetry noted bilaterally in upper and lower limb. TENDERNESS -rproduction of pain with palpation of lumbar paraspinous L3-S1 and PSIS/gluteal region b/l GINA SIGNS - Negative. NEURO/PHYSICAL SIGNS: No significant spurlings, babinski neg OTHER NOTICEABLE FINDINGS: n/a RADIOGRAPHY: thoracic spine X-Rays: 2019 Report available in computer. FINDINGS: Mild smooth levoscoliosis of the thoracolumbar spine may be positional. There is no compression, fracture, significant subluxation, worrisome bone destruction, or acute paraspinous soft tissue abnormalities identified. Mild disc space and mild predominantly anterior end plate osteophytosis is noted, predominantly of the mid to lower levels. Cervical spine MRI: hand X-Rays:2022 Report available in computer. Impression: 1. Stable exam except for removal of pin fusion of first and second metacarpals on left Right hand : Findings: There is no acute fracture, dislocation, or destructive lesion. Normal joint spaces. 2022 Report available in computer. XR KNEE LT 3 VWS INDICATION: History of left knee replacement. Left knee pain FINDINGS: Comparison 12/10/2022. Soft tissues intact. Left knee total arthroplasty in satisfactory alignment. No periprosthetic fracture or loosening. IMPRESSION: 1. No acute findings. 2. Left knee total arthroplasty in satisfactory alignment. No hardware complication. IMPRESSION: See diagnosis. 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 PT - Core stabilization exercises, stretching/ flexibility and strengthening exercises, soft-tissue/ joint mobilization, modalities, body mechanics, posture, and home exercise program. wt reduction xrays, lumbar spine f/u after PT cramping, increase Magnesium, epson salt baths, K+ food options discussed better sleep hygiene (pt admits to phone and videos until falling asleep) CTS, wear cock up wrist splints, stretches given today The current medical regimen is effective; continue present plan and medications. Consider advanced imaging and invasive options if pain persists, has new or progressive neurological issues. I spent a total of 50+ minutes on the date of the service which included [id number] patient care,completing clinical documentation, obtaining and/or reviewing separately obtained history, performing a medically appropriate examination, counseling and educating the patient/family/caregiver, ordering medications, tests, or procedures, communicating with other HCPs (not separately reported), independently interpreting results (not separately reported), communicating results to the patient/family/caregiver, and care coordination (not separately reported). I have answered all the questions regarding patients current diagnosis, care and treatment plan to patients satisfaction during today's visit. Patient verbalize understanding of current diagnosis and treatment plan. Follow up with me as scheduled Notes from todays visit will be forwarded to consulting/requesting physician. CHASITY Breaux PA-C [facility] [address], [address] [place] [address] documented in this encounterK[facility]03-[facility]24 NoteHNO ID: [id number] Author: CARTER HALL MD Service: ? Author Type: Physician Type: Progress Notes Filed: 10/11/2023 15:15 Note Text: Lisa Fernando [id number] ADDENDUM Chief Complaint: Incontinence HISTORY OF PRESENT ILLNESS: Lisa Fernando is a 48 year old diabetic obese female who presents with left flank pain for the last 10 months that worsens with movement, recurrent UTIs., 2 kidney stones in left kidney. I explain the pt and her that the source of the pain is not related to the stones. In addition, pt refers stress UI since after she had her second son. She underwent hysterectomy and bladder suspension 4 years ago. She improved her stress incontinence but it recurred months later. She has never done PT. I order UC (Not done) , US (normal) and consult to bot PT for her stress incontinence (Not done) and orthopedics to RO muscular and spine causes of her back pain. POCT glucose meter Order: [id number] Component Ref Range AND Units 3 mo ago Glucose POC 70 - 105 mg/dL 108 High Comment: [email or web address] Results US KIDNEY/BLADDER (Acc#[id number]) (Order [id number]) Patient Info Patient Name Sex Lisa Fernando ([id number]) Female 1975 09/10/2023 3:16 PM - Radiology, [place] In Impression IMPRESSION: 1. No obstructive nephrolithiasis in the lower pole of the left kidney. 2. No sonographic evidence of right-sided renal calculus. No hydronephrosis in either kidney. 3. Grossly unremarkable sonographic appearance of the urinary bladder. LABS No results found for: PSA No results found for: CREAT POCT glucose meter Order: [id number] Component Ref Range AND Units 3 mo ago Glucose POC 70 - 105 mg/dL 108 High Comment: [email or web address] PAST MEDICAL HISTORY Diagnosis Date H/O abdominal hysterectomy 01/2020 PAST SURGICAL HISTORY Procedure Laterality Date TOTAL ABDOM HYSTERECTOMY Social History Tobacco Use Smoking status: Never Smokeless tobacco: Never Vaping Use Vaping Use: Never used Substance Use Topics Alcohol use: Yes Drug use: Never Current Outpatient Medications Medication Instructions albuterol HFA (PROVENTIL HFA, VENTOLIN HFA) 90 mcg/actuation inhaler 2 Puffs, INHALATION carBAMazepine (TEGRETOL) 200 mg, ORAL, 2 TIMES DAILY carbidopa-levodopa (SINEMET 10-100) 10-100 mg per tablet 1 tablet, AT BEDTIME celecoxib (CELEBREX) 200 mg capsule 1 capsule DAILY (route: oral) cholecalciferol, Vitamin D3, (VITAMIN D3) 1,250 mcg (50,000 unit) cap capsule 1 capsule, ORAL, 1 TIME WEEKLY cyanocobalamin (VITAMIN B-12) 1,000 mcg, ORAL, DAILY doxycycline hyclate (VIBRAMYCIN) 100 mg capsule No dose, route, or frequency recorded. dulaglutide (TRULICITY) 4.25 mg, SUBCUTANEOUS, 1 TIME WEEKLY DULoxetine (CYMBALTA) 60 mg, ORAL fluticasone (FLONASE ALLERGY RELIEF) 50 mcg/actuation nasal spray 1 [place], EACH NOSTRIL, 2 TIMES DAILY furosemide (LASIX) 40 mg tablet furosemide 40 mg tablet TAKE 1 TABLET BY MOUTH ONCE DAILY FOR 30 DAYS glipiZIDE (GLUCOTROL) 5 mg, ORAL, DAILY BEFORE BREAKFAST ibuprofen (MOTRIN) 800 mg tablet No dose, route, or frequency recorded. LATUDA 20 mg tablet 1 tablet, DAILY liraglutide (VICTOZA) 0.6 mg/0.1 mL (18 mg/3 mL) Victoza 3-Arden 0.6 mg/0.1 mL (18 mg/3 mL) subcutaneous pen injector loratadine (CLARITIN) 10 mg, ORAL, DAILY lumateperone (CAPLYTA) 10.5 mg, ORAL, DAILY meloxicam (MOBIC) 15 mg, ORAL, DAILY metFORMIN (GLUCOPHAGE) 500 mg tablet metformin 500 mg tablet TAKE 1 TABLET BY MOUTH TWICE DAILY methocarbamol (ROBAXIN) 750 mg, ORAL, NEEDED OXcarbazepine (TRILEPTAL) 150 mg tablet 1 tablet, 2 TIMES DAILY potassium chloride SR (MICRO-K) 10 mEq CR capsule potassium chloride ER 10 mEq capsule,extended release potassium chloride SR (MICRO-K) 10 mEq CR capsule 1 capsule DAILY (route: oral) pramipexole (MIRAPEX) 0.125 mg tablet TAKE 1 TABLET BY MOUTH 2 TO 3 HOURS BEFORE BEDTIME pregabalin (LYRICA) 50 mg, ORAL, 2 TIMES DAILY PROAIR HFA 90 mcg/actuation inhaler NEEDED rimegepant sulfate (NURTEC ODT ORAL) 75 mg, ORAL sodium chloride (SALINE NASAL) 0.65 % nasal spray 2 Sprays, NASAL, 2 TIMES DAILY sodium chloride-aloe vera (AYR SALINE) topical nasal gel 1 application , INTRANASAL, NEEDED REVIEW OF SYSTEMS GENERAL: No fever, no fatigue and no weight loss. HEAD AND NECK: No headache, no blurred vision and no hearing loss. CARDIOVASCULAR: No chest pain, no palpitations and no leg edema. RESPIRATORY: No cough, wheezing and no shortness of breath. : As indicated in HPI. GI: No epigastric discomfort, no blood in stool and no changes in bowel habits. MUSCLOSKELETAL: No neck pain, + back pain and + joint pain. SKIN: No varicose veins, no rash and no abnormal itching. NEUROLOGICAL: No numbness, no seizures and no tremor. BLOOD: No ekimosis, no fanny (more content not included)...[facility]03-08-2024 History of Present illness Narrative* Carter Hall MD - 10/11/2023 3:02 PM EST Lisa Fernando [id number] ADDENDUM Chief Complaint: Incontinence HISTORY OF PRESENT ILLNESS: Lisa Fernando is a 48 year old diabetic obese female who presents with left flank pain for the last 10 months that worsens with movement, recurrent UTIs., 2 kidney stones in left kidney. I explain the pt and her that the source of the pain is not related to the stones. In addition, pt refers stress UI since after she had her second son. She underwent hysterectomy andbladder suspension 4 years ago. She improved her stress incontinence but it recurred months later. She has never done PT. I order UC (Not done) , US (normal) and consult to bot PT for her stress incontinence (Not done) and orthopedics to RO muscular and spine causes of her back pain. POCT glucose meter Order: [id number] Component Ref Range & Units 3 mo ago Glucose POC 70 - 105 mg/dL 108 High Comment: [id number] Results US KIDNEY/BLADDER (Acc#[id number]) (Order [id number]) Patient Info Patient Name Sex Lisa Fernando ([id number]) Female 1975 09/10/2023 3:16 PM - Radiology, [place] In Impression IMPRESSION: 1. No obstructive nephrolithiasis in the lower pole of the left kidney. 2. No sonographic evidence of right-sided renal calculus. No hydronephrosis in either kidney. 3. Grossly unremarkable sonographic appearance of the urinary bladder. LABS No results found for: PSA No results found for: CREAT POCT glucose meter Order: [id number] Component Ref Range & Units 3 mo ago Glucose POC 70 - 105 mg/dL 108 High Comment: [email or web address] PAST MEDICAL HISTORY Diagnosis Date H/O abdominal hysterectomy 01/2020 PAST SURGICAL HISTORY Procedure Laterality Date TOTAL ABDOM HYSTERECTOMY Social History Tobacco Use Smoking status: Never Smokeless tobacco: Never Vaping Use Vaping Use: Never used Substance Use Topics Alcohol use: Yes Drug use: Never Current Outpatient Medications Medication Instructions albuterol HFA (PROVENTIL HFA, VENTOLIN HFA) 90 mcg/actuation inhaler 2 Puffs, INHALATION carBAMazepine (TEGRETOL) 200 mg, ORAL, 2 TIMES DAILY carbidopa-levodopa (SINEMET 10-100) 10-100 mg per tablet 1 tablet, AT BEDTIME celecoxib (CELEBREX) 200 mg capsule 1 capsule DAILY (route: oral) cholecalciferol, Vitamin D3, (VITAMIN D3) 1,250 mcg (50,000 unit) cap capsule 1 capsule, ORAL, 1 TIME WEEKLY cyanocobalamin (VITAMIN B-12) 1,000 mcg, ORAL, DAILY doxycycline hyclate (VIBRAMYCIN) 100 mg capsule No dose, route, or frequency recorded. dulaglutide (TRULICITY) 4.25 mg, SUBCUTANEOUS, 1 TIME WEEKLY DULoxetine (CYMBALTA) 60 mg, ORAL fluticasone (FLONASE ALLERGY RELIEF) 50 mcg/actuation nasal spray 1 [place], EACH NOSTRIL, 2 TIMES DAILY furosemide (LASIX) 40 mg tablet furosemide 40 mg tablet TAKE 1 TABLET BY MOUTH ONCE DAILY FOR 30 DAYS glipiZIDE (GLUCOTROL) 5 mg, ORAL, DAILY BEFORE BREAKFAST ibuprofen (MOTRIN) 800 mg tablet No dose, route, or frequency recorded. LATUDA 20 mg tablet 1 tablet, DAILY liraglutide (VICTOZA) 0.6 mg/0.1 mL (18 mg/3 mL) Victoza 3-Arden 0.6 mg/0.1 mL (18 mg/3 mL) subcutaneous pen injector loratadine (CLARITIN) 10 mg, ORAL, DAILY lumateperone (CAPLYTA) 10.5 mg, ORAL, DAILY meloxicam (MOBIC) 15 mg, ORAL, DAILY metFORMIN (GLUCOPHAGE) 500 mg tablet metformin 500 mg tablet TAKE 1 TABLET BY MOUTH TWICE DAILY methocarbamol (ROBAXIN) 750 mg, ORAL, NEEDED OXcarbazepine (TRILEPTAL) 150 mg tablet 1 tablet, 2 TIMES DAILY potassium chloride SR (MICRO-K) 10 mEq CR capsule potassium chloride ER 10 mEq capsule,extended release potassium chloride SR (MICRO-K) 10 mEq CR capsule 1 capsule DAILY (route: oral) pramipexole (MIRAPEX) 0.125 mg tablet TAKE 1 TABLET BY MOUTH 2 TO 3 HOURS BEFORE BEDTIME pregabalin (LYRICA) 50 mg, ORAL, 2 TIMES DAILY PROAIR HFA 90 mcg/actuation inhaler NEEDED rimegepant sulfate (NURTEC ODT ORAL) 75 mg, ORAL sodium chloride (SALINE NASAL) 0.65 % nasal spray 2 Sprays, NASAL, 2 TIMES DAILY sodium chloride-aloe vera (AYR SALINE) topical nasal gel 1 application , INTRANASAL, NEEDED REVIEW OF SYSTEMS GENERAL: No fever, no fatigue and no weight loss. HEAD & NECK: No headache, no blurred vision and no hearing loss. CARDIOVASCULAR: No chest pain, no palpitations and no leg edema. RESPIRATORY: No cough, wheezing and no shortness of breath. : As indicated in HPI. GI: No epigastric discomfort, no blood in stool and no changes in bowel habits. MUSCLOSKELETAL: No neck pain, + back pain and + joint pain. SKIN: No varicose veins, no rash and no abnormal itching. NEUROLOGICAL: No numbness, no seizures and no tremor. BLOOD: No ekimosis, no hematomas or no bleeding from the gums. PHYSICAL EXAM: BP (!) 110/45 Pulse 85 Resp 16 LMP (LMP Unknown) GENERAL: Alert, oriented and in no distress. ABDOMEN: No CVA tenderness. EXTREMITIES: No leg edema, No joint swelling GENITALIA: deferred ASSESSMENT/PLAN : 48 year old diabetic obese female who presents with left flank pain for the last 10 months that worsens with movement, recurrent UTIs., 2 kidney stones in left kidney. I explain the pt and her that the source of the pain is not related to the stones. In addition, pt refers stress UI since after she had her second son. She underwent hysterectomy andbladder suspension 4 years ago. She improved her stress incontinence but it recurred months later. She has never done PT. I order UC (Not done) , US (normal) and consult to bot PT for her stress incontinence (Not done) and orthopedics to RO muscular and spine causes of her back pain. I propose the pt having a consult with expert Dr. Jacqui Castro. The pt. understands that I do not provide tests results over the phone unless there is an emergencyand eventually agrees to return to clinic to discuss tests results. Medical Decision Making: Problems: Moderate: 1+ chronic illnesses with change Data: Unique test result(s) reviewed: 1 Unique test(s) ordered: 1 Assessment requiring an independent historian(s) Risk: Low: Low risk from testing/treatment Medical Decision Making Level: 4 - Moderate Carter Hall MD, PhD [facility] [id number] October 11, 2023 3:02 PM documented in this encounterK[facility]03-[facility]-2024 NoteHNO ID: [id number] Author: ANGEL ZUNIGA MD Service: ? Author Type: Physician Type: Progress Notes Filed: 10/08/2023 13:27 Note Text: OTOLARYNGOLOGY-HEAD AND NECK SURGERY CC: Consultation requested by Dr. Garcia for an opinion regarding scabing on nose. My final recommendations will be communicated back to the requesting physician by way of shared Medical record or letter to requesting physician via US mail. Assessment/Plan: ASSESSMENT/PLAN: 1. Gastroesophageal reflux disease, unspecified whether esophagitis present - ICD9: 530.81, ICD10: K21.9 - CONSULT TO GASTROENTEROLOGY [facility] for scabbing on the nose Angel Zuniga MD HPI: 48F with known GERD. No unintended weight loss. No odynophagia, dysphagia or changes in symptoms. No changes in swallow. Needs referral to GI. Scope deferred. Also with scabbing on the right side of the nose. ALLERGIES Allergen Reactions Aloe Vera Other: See Comments Baclofen Other: See Comments, Swelling Cephalexin GI Upset, Vomiting Ciprofloxacin Other: See Comments Cyclobenzaprine Hives, Unknown Gabapentin Hives, Unknown, Other: See Comments Menthol Other: See Comments Metformin Hives Morphine GI Upset Nsaids (Non-Steroid* Hives, Rash, Other: See Comments Azithromycin Itching, Rash Current Outpatient Medications Medication Sig lumateperone (CAPLYTA) 10.5 mg capsule Take 10.5 mg by mouth once daily. pramipexole (MIRAPEX) 0.125 mg tablet TAKE 1 TABLET BY MOUTH 2 TO 3 HOURS BEFORE BEDTIME cholecalciferol, Vitamin D3, (VITAMIN D3) 1,250 mcg (50,000 unit) cap capsule Take 1 capsule by mouth one time a week. sodium chloride-aloe vera (AYR SALINE) topical nasal gel 1 application by INTRANASAL route as needed. cyanocobalamin (VITAMIN B-12) 1,000 mcg tab Take 1,000 mcg by mouth once daily. rimegepant sulfate (NURTEC ODT ORAL) Take 75 mg by mouth. glipiZIDE (GLUCOTROL) 5 mg tablet Take 5 mg by mouth daily before breakfast. dulaglutide (TRULICITY) 4.5 mg/0.5 mL pen injector Inject 4.25 mg subcutaneously one time a week. methocarbamol (ROBAXIN) 750 mg tablet Take 750 mg by mouth as needed. pregabalin (LYRICA) 50 mg capsule Take 50 mg by mouth two times a day. carBAMazepine (TEGRETOL) 200 mg tablet Take 200 mg by mouth twice daily. potassium chloride SR (MICRO-K) 10 mEq CR capsule 1 capsule DAILY (route: oral) loratadine (CLARITIN) 10 mg tablet Take 1 tablet by mouth once daily. sodium chloride (SALINE NASAL) 0.65 % nasal spray Use 2 Sprays in the nose twice daily. fluticasone (FLONASE ALLERGY RELIEF) 50 mcg/actuation nasal spray Use 1 [place] in each nostril twice daily. DULoxetine (CYMBALTA) 60 mg capsule Take 60 mg by mouth. celecoxib (CELEBREX) 200 mg capsule 1 capsule DAILY (route: oral) doxycycline hyclate (VIBRAMYCIN) 100 mg capsule furosemide (LASIX) 40 mg tablet furosemide 40 mg tablet TAKE 1 TABLET BY MOUTH ONCE DAILY FOR 30 DAYS ibuprofen (MOTRIN) 800 mg tablet liraglutide (VICTOZA) 0.6 mg/0.1 mL (18 mg/3 mL) Victoza 3-Arden 0.6 mg/0.1 mL (18 mg/3 mL) subcutaneous pen injector metFORMIN (GLUCOPHAGE) 500 mg tablet metformin 500 mg tablet TAKE 1 TABLET BY MOUTH TWICE DAILY potassium chloride SR (MICRO-K) 10 mEq CR capsule potassium chloride ER 10 mEq capsule,extended release albuterol HFA (PROVENTIL HFA, VENTOLIN HFA) 90 mcg/actuation inhaler Inhale 2 Puffs as instructed. meloxicam (MOBIC) 15 mg tablet Take 1 tablet by mouth once daily. PROAIR HFA 90 mcg/actuation inhaler as needed. (Patient not taking: Reported on 04/04/2022) carbidopa-levodopa (SINEMET 10-100) 10-100 mg per tablet 1 tablet daily at bedtime. LATUDA 20 mg tablet 1 tablet once daily. OXcarbazepine (TRILEPTAL) 150 mg tablet 1 tablet twice daily. No current facility-administered medications for this visit. PAST MEDICAL HISTORY Diagnosis Date H/O abdominal hysterectomy 01/2020 PAST SURGICAL HISTORY Procedure Laterality Date TOTAL ABDOM HYSTERECTOMY Social History: Social History Tobacco Use Smoking status: Never Smokeless tobacco: Never Vaping Use Vaping Use: Never used Substance Use Topics Alcohol use: Yes Drug use: Never No family history on file. ROS: GENERAL: No weight loss, malaise or fevers. HEENT: Negative for frequent or significant headaches, No changes in hearing or vision, No nasal bleeding, congestion or rhinorrhea, No sore throat or change in voice NECK: Negative for lumps, goiter, pain and significant neck swelling RESPIRATORY: Negative for cough, hemoptysis, wheezing or shortness of breath NEUROLOGIC: Negative for focal numbness or weakness, headaches and dizziness or syncope. SKIN: Negative for lesions, rash, and itching. PHYSICAL EXAM: On physical examination Lisa Fernando is a well-developed, well nourished female. Her speech is nl and her voice is nl. Mental status revealed patient to be alert and oriented. Mood is appropriate. Details of the physical examination: CRANIAL NERVE EXAM: II: (more content not included)...[facility]03-05-2024 NoteHNO ID: [id number] Author: ?, ?, ? Service: ? Author Type: ? Type: Progress Notes Filed: 10/08/2023 13:27 Note Text: Tobacco Use: Never Was smoking cessation packet given? N/A - Patient is a non-smoker or quit >1 year ago. Was a referral initiated?N/A Patient is a [facility]okerL[facility]23 NoteHNO ID: [id number] Author: NASRA LO PA-C Service: ? Author Type: Physician Ballroom Dancer Type: Progress Notes Filed: 10/08/2023 15:38 Note Text: History of Present Illness Ms. LISA FERNNADO is a 48 year old female presenting to the clinic for evaluation of her bilateral otalgia and hearing loss. Chief Complaint: Follow up, bilateral otalgia. Last seen 08/27/2023. Since last seen, Pain in the ear is overall stable, no changes. She has not been able to get into a dentist yet for evaluation of her teeth and jaw as possible cause of the ear pain. Did have some changes in her hearing, did see audiology this morning. She is going to pursue hearing aids. Tinnitus, ringing noise, mostly in the right ear. It is overall stable. She has been feeling off. Denies spinning sensation. Has been getting headaches more frequently. Does take Nurtec which helps. The headache usually goes with the imbalance. Otorrhea: denies Facial Numbness, Weakness or Tingling: denies ALLERGIES Allergen Reactions Aloe Vera Other: See Comments Baclofen Other: See Comments, Swelling Cephalexin GI Upset, Vomiting Ciprofloxacin Other: See Comments Cyclobenzaprine Hives, Unknown Gabapentin Hives, Unknown, Other: See Comments Menthol Other: See Comments Metformin Hives Morphine GI Upset Nsaids (Non-Steroid* Hives, Rash, Other: See Comments Azithromycin Itching, Rash Current Outpatient Medications on File Prior to Visit Medication Sig lumateperone (CAPLYTA) 10.5 mg capsule Take 10.5 mg by mouth once daily. pramipexole (MIRAPEX) 0.125 mg tablet TAKE 1 TABLET BY MOUTH 2 TO 3 HOURS BEFORE BEDTIME cholecalciferol, Vitamin D3, (VITAMIN D3) 1,250 mcg (50,000 unit) cap capsule Take 1 capsule by mouth one time a week. cyanocobalamin (VITAMIN B-12) 1,000 mcg tab Take 1,000 mcg by mouth once daily. rimegepant sulfate (NURTEC ODT ORAL) Take 75 mg by mouth. glipiZIDE (GLUCOTROL) 5 mg tablet Take 5 mg by mouth daily before breakfast. dulaglutide (TRULICITY) 4.5 mg/0.5 mL pen injector Inject 4.25 mg subcutaneously one time a week. methocarbamol (ROBAXIN) 750 mg tablet Take 750 mg by mouth as needed. pregabalin (LYRICA) 50 mg capsule Take 50 mg by mouth two times a day. carBAMazepine (TEGRETOL) 200 mg tablet Take 200 mg by mouth twice daily. potassium chloride SR (MICRO-K) 10 mEq CR capsule 1 capsule DAILY (route: oral) DULoxetine (CYMBALTA) 60 mg capsule Take 60 mg by mouth. furosemide (LASIX) 40 mg tablet furosemide 40 mg tablet TAKE 1 TABLET BY MOUTH ONCE DAILY FOR 30 DAYS ibuprofen (MOTRIN) 800 mg tablet carbidopa-levodopa (SINEMET 10-100) 10-100 mg per tablet 1 tablet daily at bedtime. loratadine (CLARITIN) 10 mg tablet Take 1 tablet by mouth once daily. sodium chloride (SALINE NASAL) 0.65 % nasal spray Use 2 Sprays in the nose twice daily. fluticasone (FLONASE ALLERGY RELIEF) 50 mcg/actuation nasal spray Use 1 [place] in each nostril twice daily. celecoxib (CELEBREX) 200 mg capsule 1 capsule DAILY (route: oral) doxycycline hyclate (VIBRAMYCIN) 100 mg capsule liraglutide (VICTOZA) 0.6 mg/0.1 mL (18 mg/3 mL) Victoza 3-[place] 0.6 mg/0.1 mL (18 mg/3 mL) subcutaneous pen injector metFORMIN (GLUCOPHAGE) 500 mg tablet metformin 500 mg tablet TAKE 1 TABLET BY MOUTH TWICE DAILY potassium chloride SR (MICRO-K) 10 mEq CR capsule potassium chloride ER 10 mEq capsule,extended release albuterol HFA (PROVENTIL HFA, VENTOLIN HFA) 90 mcg/actuation inhaler Inhale 2 Puffs as instructed. meloxicam (MOBIC) 15 mg tablet Take 1 tablet by mouth once daily. PROAIR HFA 90 mcg/actuation inhaler as needed. (Patient not taking: Reported on 04/04/2022) LATUDA 20 mg tablet 1 tablet once daily. OXcarbazepine (TRILEPTAL) 150 mg tablet 1 tablet twice daily. No current facility-administered medications on file prior to visit. Objective: There were no vitals taken for this visit. Appearance: Non-syndromic, cooperative and calm Communication: Voice has adequate volume; there is no stridor Head/Face: head and facial contours are symmetric Facial nerve 1/6 bilateral Skin: no skin lesions or scarring on face Ears: AD External auditory canal is patent. TM is clear and intact. External auditory canal is patent. TM is clear and intact. Nose: external exam with straight profile Oral Cavity: Poor dentition Oropharynx: Uvula hangs midline; mucosa is pink and moist Neuro/Psych.: Alert and Oriented x 3 Cranial nerves intact Data Review: CT Temporal Bone 09/10/2023: IMPRESSION, copied: Mild developmental bony changes involving the ossicles and internal auditory canals with no focal derangement otherwise to suggest an etiology for bilateral otalgia. Assessment: (H92.03) Otalgia of both ears (primary encounter diagnosis) (M54.2) Cervicalgia (R68.84) Jaw pain (R26.89) Imbalance (H93.11) Tinnitus, right (H90.3) Sensorineural hearing loss (SNHL) of both ears Plan: Recommended patient trial vest (more content not included)...[facility]03-05-2024 NoteHNO ID: [id number] Author: ?, ?, ? Service: ? Author Type: ? Type: Progress Notes Filed: 10/08/2023 15:38 Note Text: Tobacco Use: Never Was smoking cessation packet given? N/A - Patient is a non-smoker or quit >1 year ago. Was a referral initiated?N/A Patient is a [facility]okerL[facility]-2023 NoteHNO ID: [id number] Author: SIMONE BEARD AUD Service: ? Author Type: Bartender Helper Type: Progress Notes Filed: 10/08/2023 10:29 Note Text: Head and Neck [place] AUDIOLOGIC EVALUATION REPORT Name: Lisa Fernando CCF#: [id number] Date of Service: 10/08/2023 Date of : 1975 Age: [age] year old Referred by: Nasra Lo [address] [facility] [address] Referred for: Evaluation of suspected change in hearing, tinnitus, or balance. Referral documented: In an order in Epic Patient's major complaints: Reduced hearing in both ears, Tinnitus in both ears, Dizziness/vertigo/imbalance, Otalgia in both ears Lisa Fernando was seen for a recheck audiologic evaluation. History is significant for bilateral hearing loss, tinnitus and otalgia (02/11) as well as dizziness. Of note, recent CT completed on 09/10/2023 was unremarkable. Most recent audiologic evaluation revealed mild sensorineural hearing loss bilaterally. Today patient denied otorrhea. She previously denied prior otologic surgery, chemotherapy/radiation, family history of hearing loss, head trauma and noise exposure. See procedures tab for audiometric results. IMPRESSIONS RIGHT EAR: Sensorineural hearing loss LEFT EAR: Sensorineural hearing loss Comparison of today's results with previous test results (06/03/2022): Today's results reveal no significant change in both ears AUDIOLOGIC EVALUATION Following is a brief interpretation of the obtained findings from the audiologic evaluation. Refer to the Auditory Test Record for complete audiometric results. The patient was counseled about the test findings and appropriate audiologic recommendations were made. SUMMARY: See procedures tab for audiometric results. OTOSCOPY RIGHT EAR: Otoscopic inspection revealed ear canal was clear with an identifiable cone of light. LEFT EAR: Otoscopic inspection revealed ear canal was clear with an identifiable cone of light. TYMPANOMETRY Description of procedure: This test is an objective evaluation of middle ear function. CPT code: 73174 RIGHT EAR: Normal ME function. LEFT EAR: Normal ME function. ACOUSTIC REFLEXES Description of procedure: This test is an objective measure of auditory and facial nerve pathways. CPT code: 27401, 87831 RIGHT EAR PROBE EAR: (ipsi right stimulus ear; contralateral left stimulus ear): Acoustic Reflex Pattern Did not test Acoustic Reflex Decay (left stimulus ear): Did not test. LEFT EAR PROBE EAR: (ipsi left stimulus ear; contralateral right stimulus ear): Acoustic Reflex Pattern Did not test Acoustic Reflex Decay (right stimulus ear):Did not test. PURE TONE AUDIOMETRY AND SPEECH TESTING Description of procedure: This test is an objective evaluation hearing sensitivity via air and bone conduction and speech recognition testing. CPT code: 61394 RIGHT EAR: Hearing Sensitivity: Essentially mild sensorineural hearing loss. Word Recognition Score: Excellent (90%). WRS is consistent with hearing sensitivity. Words were presented at 60 dB HL is above (greater than or equal to 60 dB HL) intensity level for average conversational speech. The NU-6 Ordered by Difficulty Word List (10 words) was used for testing. Contralateral masking was employed. LEFT EAR: Hearing Sensitivity: Mild sensorineural hearing loss. Word Recognition Score: Excellent (100%). WRS is consistent with hearing sensitivity. Words were presented at 60 dB HL is above (greater than or equal to 60 dB HL) intensity level for average conversational speech. The NU-6 Ordered by Difficulty Word List (10 words) was used for testing. Contralateral masking was employed. RECOMMENDATIONS * Continue medical follow-up with Nasra Lo PA-C. * The patient was counseled regarding benefits/limitations of hearing aids and provided written educational materials. * Provided patient with list of sites that provide hearing aids for individuals who have Medicaid. * Re-evaluation as medically indicated or if a change in hearing is noted. Willi Painting, [facility]-A Clinical Bartender Helper SHI Abbrev- iation Definition Degree of hearing sensitivity dB range WNL within normal limits WNL 0 - 20 SNHL sensorineural hearing loss Mild 20-40 CHL conductive hearing loss Moderate 40-55 MHL mixed hearing loss Moderately-Severe 55-70 WRS word recognition score Severe 70-90 ME middle ear Profound 90 + TM tympanic membraneLancaster [facility] Hospital03-05-2024 History of Present illness Narrative* Simone Beard AUD - 10/08/2023 9:55 AM EST Head and Neck [place] AUDIOLOGIC EVALUATION REPORT Name: Lisa Fernando CCF#: [id number] Date of Service: 10/08/2023 Date of : 1975 Age: [age] year old Referred by: Nasra Lo [address] [facility] [address] Referred for: Evaluation of suspected change in hearing, tinnitus, or balance. Referral documented: In an order in Epic Patient's major complaints: Reduced hearing in both ears, Tinnitus in both ears, Dizziness/vertigo/imbalance, Otalgia in both ears Lisa Fernando was seen for a recheck audiologic evaluation. History is significant for bilateral hearing loss, tinnitus and otalgia (02/11) as well as dizziness. Of note, recent CT completed on 09/10/2023 was unremarkable. Most recent audiologic evaluation revealed mild sensorineural hearing loss b ilaterally. Today patient denied otorrhea. She previously denied prior otologic surgery, chemotherapy/radiation, family history of hearing loss, head trauma and noise exposure. See procedures tab foraudiometric results. IMPRESSIONS RIGHT EAR: Sensorineural hearing loss LEFT EAR: Sensorineural hearing loss Comparison of today's results with previous test results (06/03/2022): Today's results reveal no significant change in both ears AUDIOLOGIC EVALUATION Following is a brief interpretation of the obtained findings from the audiologic evaluation. Refer to the Auditory Test Record for complete audiometric results. The patient was counseled about the test findings and appropriate audiologic recommendations were made. SUMMARY: See procedures tab for audiometric results. OTOSCOPY RIGHT EAR: Otoscopic inspection revealed ear canal was clear with an identifiable cone of light. LEFT EAR: Otoscopic inspection revealed ear canal was clear with an identifiable cone of light. TYMPANOMETRY Description of procedure: This test is an objective evaluation of middle ear function. CPT code: 01440 RIGHT EAR: Normal ME function. LEFT EAR: Normal ME function. ACOUSTIC REFLEXES Description of procedure: This test is an objective measure of auditory and facial nerve pathways. CPT code: 55371, 43151 RIGHT EAR PROBE EAR: (ipsi right stimulus ear; contralateral left stimulus ear): Acoustic Reflex Pattern Did not test Acoustic Reflex Decay (left stimulus ear): Did not test. LEFT EAR PROBE EAR: (ipsi left stimulus ear; contralateral right stimulus ear): Acoustic Reflex Pattern Did not test Acoustic Reflex Decay (right stimulus ear):Did not test. PURE TONE AUDIOMETRY AND SPEECH TESTING Description of procedure: This test is an objective evaluation hearing sensitivity via air and boneconduction and speech recognition testing. CPT code: 86664 RIGHT EAR: Hearing Sensitivity: Essentially mild sensorineural hearing loss. Word Recognition Score: Excellent (90%). WRS is consistent with hearing sensitivity. Words were presented at 60 dB HL is above (greater than or equal to 60 dB HL) intensity level for average conversational speech. The NU-6 Ordered by Difficulty Word List (10 words) was used for testing. Contralateral masking was employed. LEFT EAR: Hearing Sensitivity: Mild sensorineural hearing loss. Word Recognition Score: Excellent (100%). WRS is consistent with hearing sensitivity. Words were presented at 60 dB HL is above (greater than or equal to 60 dB HL) intensity level for average conversational speech. The NU-6 Ordered by Difficulty Word List (10 words) was used for testing. Contralateral masking was employed. RECOMMENDATIONS * Continue medical follow-up with Nasra Lo PA-C. * The patient was counseled regarding benefits/limitations of hearing aids and provided written educational materials. * Provided patient with list of sites that provide hearing aids for individuals who have Medicaid. * Re-evaluation as medically indicated or if a change in hearing is noted. Willi Painting, [facility]-A Clinical Bartender Helper SHI Abbrev- iation Definition Degree of hearing sensitivity dB range WNL within normal limits WNL 0 - 20 SNHL sensorineural hearing loss Mild 20-40 CHL conductive hearing loss Moderate 40-55 MHL mixed hearing loss Moderately-Severe 55-70 WRS word recognition score Severe 70-90 ME middle ear Profound 90 + TM tympanic membrane documented in [facility] encounterK[facility]24 NoteHNO ID: [id number] Author: YOHANA ALLEN RT(R) Service: ? Author Type: Death Clearance Coordinator Type: Progress Notes Filed: 09/10/2023 12:19 Note Text: Radiology Service Progress Note PATIENT NAME: Lisa Fernando DATE OF SERVICE: September 10, 2023 TIME: 12:19 PM PATIENT IDENTITY VERIFICATION COMPLETED USING TWO (2) IDENTIFIERS: Name and Date of confirmed by patient verbally. FALL SCREENING: Has the patient had 2 falls in the last year or 1 fall with injury or currently using an Ambulatory Assistive Device (Walker, Cane, Wheelchair, Crutches, etc.)? No PATIENT GENDER DATA: Female. status: : No status: N/A PATIENT RELEVANT IMPLANT DATA REVIEWED: Not Applicable PATIENT PRESENTS WITH AN IMPLANTABLE OR ATTACHED DOLL MAKER: No RADIOLOGY DEPARTMENT: Ultrasound PERIPHERAL IV DATA: Not applicable SIGNED BY: RT Ang(Yolanda) September 10, 2023 12:19 [facility]02-06-2024 History of Present illness Narrative* Yohana Allen RT(R) - 09/10/2023 12:19 PM EST Radiology Service Progress Note PATIENT NAME: Lisa Fernando DATE OF SERVICE: September 10, 2023 TIME: 12:19 PM PATIENT IDENTITY VERIFICATION COMPLETED USING TWO (2) IDENTIFIERS: Name and Date of confirmedby patient verbally. FALL SCREENING: Has the patient had 2 falls in the last year or 1 fall with injury or currently using an Ambulatory Assistive Device (Walker, Cane, Wheelchair, Crutches, etc.)? No PATIENT GENDER DATA: Female. status: : No status: N/A PATIENT RELEVANT IMPLANT DATA REVIEWED: Not Applicable PATIENT PRESENTS WITH AN IMPLANTABLE OR ATTACHED DOLL MAKER: No RADIOLOGY DEPARTMENT: Ultrasound PERIPHERAL IV DATA: Not applicable SIGNED BY: RT Ang(Yolanda) September 10, 2023 12:19 PM documented in this encounterKet[facility]-2024 NoteHNO ID: [id number] Author: MARLEY CARREON RT(Yolanda) Service: ? Author Type: Technologist Type: Progress Notes Filed: 09/10/2023 09:17 Note Text: Radiology Service Progress Note PATIENT NAME: Lisa Fernando DATE OF SERVICE: September 10, 2023 TIME: 9:17 AM PATIENT IDENTITY VERIFICATION COMPLETED USING TWO (2) IDENTIFIERS: Name and Date of confirmed by patient verbally. FALL SCREENING: Has the patient had 2 falls in the last year or 1 fall with injury or currently using an Ambulatory Assistive Device (Walker, Cane, Wheelchair, Crutches, etc.)? No PATIENT GENDER DATA: Female. status: : No status: NO. PATIENT RELEVANT IMPLANT DATA REVIEWED: Not Applicable PATIENT PRESENTS WITH AN IMPLANTABLE OR ATTACHED DOLL MAKER: No RADIOLOGY DEPARTMENT: CT; Exam(s) Completed: Temporal Bones PERIPHERAL IV DATA: Not applicable SIGNED BY: KAYDEN Workman) September 10, 2023 9:17 [facility]02-06-2024 History of Present illness Narrative* Marley Carreon RT(R) - 09/10/2023 9:16 AM EST Radiology Service Progress Note PATIENT NAME: Lisa Fernando DATE OF SERVICE: September 10, 2023 TIME: 9:17 AM PATIENT IDENTITY VERIFICATION COMPLETED USING TWO (2) IDENTIFIERS: Name and Date of confirmedby patient verbally. FALL SCREENING: Has the patient had 2 falls in the last year or 1 fall with injury or currently using an Ambulatory Assistive Device (Walker, Cane, Wheelchair, Crutches, etc.)? No PATIENT GENDER DATA: Female. status: : No status: NO. PATIENT RELEVANT IMPLANT DATA REVIEWED: Not Applicable PATIENT PRESENTS WITH AN IMPLANTABLE OR ATTACHED DOLL MAKER: No RADIOLOGY DEPARTMENT: CT; Exam(s) Completed: Temporal Bones PERIPHERAL IV DATA: Not applicable SIGNED BY: RT Jacinta(Yolanda) September 10, 2023 9:17 AM documented in this encounterKettering [facility]01-29-2024 Evaluation note* Encounter Date Diagnosis Assessment Notes Treatment Notes Treatment Clinical Notes Aug, Type 2 diabetes mellitus without complications (ICD-10 - E11.9) Aug, Obesity (BMI 35.0-39.9 without comorbidity) (ICD-10 - E66.9) Aug, Mixed hyperlipidemia (ICD-10 - E78.2) Aug, Knee osteoarthritis (ICD-10 - M17.9) Aug, Vitamin B12 deficiency (ICD-10 - E53.8) Aug, Low back pain (ICD-1 0 - M54.5) Aug, Metabolic syndrome (ICD-10 - E88.81) [id number] Other 01-29-2024 Evaluation note* Author Susan Orantes [facility] Authored October 28, 2023 10: 23am Start weight: 246.1 lbs., sh e is down 25.6 lbs today with a weight of 220.5 lbs. and down 1.7 lbs since her last appointment on 09/02/2023. Starting waist circumference: 44.0 inches. Starting Date: 04/28/2020. Victoza responder for weight loss. 1. Metabolic syndrome- improving with healthier eating overall and weight loss. She tries to stay away from junk food. She is trying to be more active. She must continue to try to minimize highly processed and takeout foods. She should follow-up closely with the compliance representative dealer. Her A1c before starting Victoza was 6.9, and is now down to 5.5 on 1.8 mg of Victoza daily recently back to 6.2. We have stopped her Metformin due to her good A1c and low B12 levels. She also lives with her and her son. She cares for her grandkids. She must avoid eating fast foods/convenience food eating if possible. Her mom and her maternal grandmother have had similar weight issues and her dad was diabetic. 2. Obesity -significantly improved with following our program and now taking Trulicity 4.5 mg. Her most recent A1c dropped from 6.7 down to 5.7 by her history. We are stopping her glipizide 5 mg. She has a Dexcom to monitor her blood sugar to avoid hypoglycemia and monitor for hyperglycemia. Her metformin had been previously stopped due to B12 deficiency. B12 now is fully replaced and we could consider using metformin again if needed for diabetic control. She understands if she was on metformin she would need to take her B12 supplement at this point we are stopping her B12 supplement. In the recent past, she had significant weight regain with the stress of her son having a cardiac arrest at age 17 and requiring a defibrillator. She should continue to try to make more of her own food. She is trying not to skip breakfast and lunch. She is trying to avoid/minimize sugar sweetened beverages. She keeps active babysitting her grandkids. She does not formally exercise. She could consider starting exercise with her jowl trimmer. Before starting our program, her biggest reasons for her weight struggles include skipping breakfast, previously poor sleep, type 2 diabetes, bipolar disorder, depression, stress eating, eating many highly processed foods, decreased activity with her knee and some weight positive medications. She had a past history of significant soda intake. She used to drink 5 large sodas a day when she worked at [employer] or a sixpa[facility] [employer] a day. She should continue to try to minimize/avoid regular soda and fruit juice. She has noted that her drinks a six pack of soda a day. She cannot use Topamax as she has had 3 or 4 bouts of kidney stones. Topamax also cause a rash in the past. In the past, I have recommend she continue to try to decrease her frequency of Lasix use for edema as it seems to have caused hypokalemia, but currently having more issues with some swelling. She must try to cut back the salt in her diet. She has had hypokalemia which could be worsened by Lasix so she needs to increase her fruit and vegetable intake along with her potassium supplement. She may have some lymphedema or lipedema, but she notes it does worsen without the Lasix. She had never been on weight loss medications other than Victoza. She is status post hysterectomy 01/2020 but still has her ovaries. 3. Type 2 diabetes-well controlled/recent worsening with A1c of 6.7 on full dose Victoza. She is going to switch to Trulicity if no side effects or problems. She will continue to treat with first-line with lifestyle changes, decrease simple sweets and starches, increased activity and weight loss. Not on metformin due to low B12 levels. Consider SGLT2 inhibitor. 4. Chronic low back pain-with radiculopathy on Trileptal for this condition. She is not currently using nonsteroidals. She follows up with pain management. 5. Restless leg syndrome-she is on Sinemet for this she feels is helpful. She knows she is been tested in the past for sleep apnea and she does not have it. 6. Bilateral OA of the knees she is status post right and left total knee replacements. Treat with weight loss and orthopedic surgery. 7. B12 deficiency-replaced now with high-dose oral replacement off metformin. 8. History of hypokalemia on Lasix. Improved by most recent blood work. She will continue to follow-up with her PCP. 9. Mixed hyperlipidemia-significantly improved/now normalized. She must continue to decrease simple sweets, added sugars, refined starches and bad fats and increasing exercise and weight loss. 10. Bipolar depression-stable. She follows up with her psychiatrist. Follow-up with me in 6-8 weeks. New labs needed: Up-to-date. Recheck A1c in 3 months after last A1c. She is getting her A1c down with her PCP. Monitor B12 level and full metabolic blood work regularly with her PCP. [facility] Work Phone: [phone] 516-222801-25-2024 NoteHNO ID: [id number] Author: CARTER HALL MD Service: ? Author Type: Physician Type: Progress Notes Filed: 08/29/2023 12:31 Note Text: [facility] NEW PATIENT HISTORY AND PHYSICAL EXAM PATIENT INFO: Lisa Fernando 48 year old CHIEF COMPLAINT: Urinary stone disease HISTORY: Lisa Fernando is a 48 year old diabetic obese female with HO urinary stones who went to ED on 08/07/23 due left flank pain and CT scan showed ---> 2 stones in lower pole of the left kidney. Size was not reported. (Report not available but shown by pt on the cell phone). She also has a HO UTI and she had gross hematuria back then. She was treated with Abx and improved significantly. She also has a KUB reported in 05/13/23 showing left nephrolithiasis similar to prior studies. Pt did not have spontaneous passage of the stone. Pt is currently symptomatic Urinalysis with signs of infection No Pt refers family history of kidney stones. No In addition, pt refers stress UI since after she had her second son. She underwent hysterectomy and bladder suspension 4 years ago. She improved her stress incontinence but it recurred months later. She has never done PT. Consultation requested by General Foundry Worker Role and Specialty Contact Info Address Start End Comments Brigida Corea CNP General (Family Medicine) [address] [place] [address] 08/27/2023 - - for an opinion regarding flank pain and JOHN. My final recommendations will be communicated back to the requesting physician by way of shared medical record or letter via US mail Visit complexity inherent to evaluation and management associated with medical care services that serve as the continuing focal point for all needed health care services and/or with medical care services that are part of ongoing care related to a patient?s single, serious condition or a complex condition. Location: left flank Pain Character: sharp Severity Scale: moderate, severe Duration: 10 months Timing: intermittently Modifying Factors: Worsened by exercise Associated signs and symptoms: hematuria PAST MEDICAL HISTORY: PAST MEDICAL HISTORY Diagnosis Date H/O abdominal hysterectomy 01/2020 PAST SURGICAL HISTORY: PAST SURGICAL HISTORY Procedure Laterality Date TOTAL ABDOM HYSTERECTOMY FAMILY HISTORY: No family history on file. SOCIAL HISTORY: Social History Tobacco Use Smoking status: Never Smokeless tobacco: Never Substance Use Topics Alcohol use: Yes Drug use: Never Recent Data from [facility] Related to POCT glucose meter Component 06/19/23 06/19/23 10/25/22 03/19/22 03/19/22 11/21/20 Glucose POC 108 High 111 High 95 68 Low 104 High 201 High MEDICATIONS: Current Outpatient Medications Medication Instructions albuterol HFA (PROVENTIL HFA, VENTOLIN HFA) 90 mcg/actuation inhaler 2 Puffs, INHALATION carBAMazepine (TEGRETOL) 200 mg, ORAL, 2 TIMES DAILY carbidopa-levodopa (SINEMET 10-100) 10-100 mg per tablet 1 tablet, AT BEDTIME celecoxib (CELEBREX) 200 mg capsule 1 capsule DAILY (route: oral) cyanocobalamin (VITAMIN B-12) 1,000 mcg, ORAL, DAILY doxycycline hyclate (VIBRAMYCIN) 100 mg capsule No dose, route, or frequency recorded. dulaglutide (TRULICITY) 4.25 mg, SUBCUTANEOUS, 1 TIME WEEKLY DULoxetine (CYMBALTA) 60 mg, ORAL fluticasone (FLONASE ALLERGY RELIEF) 50 mcg/actuation nasal spray 1 [place], EACH NOSTRIL, 2 TIMES DAILY furosemide (LASIX) 40 mg tablet furosemide 40 mg tablet TAKE 1 TABLET BY MOUTH ONCE DAILY FOR 30 DAYS glipiZIDE (GLUCOTROL) 5 mg, ORAL, DAILY BEFORE BREAKFAST ibuprofen (MOTRIN) 800 mg tablet No dose, route, or frequency recorded. LATUDA 20 mg tablet 1 tablet, DAILY liraglutide (VICTOZA) 0.6 mg/0.1 mL (18 mg/3 mL) Victoza 3-Arden 0.6 mg/0.1 mL (18 mg/3 mL) subcutaneous pen injector loratadine (CLARITIN) 10 mg, ORAL, DAILY meloxicam (MOBIC) 15 mg, ORAL, DAILY metFORMIN (GLUCOPHAGE) 500 mg tablet metformin 500 mg tablet TAKE 1 TABLET BY MOUTH TWICE DAILY methocarbamol (ROBAXIN) 750 mg, ORAL, NEEDED OXcarbazepine (TRILEPTAL) 150 mg tablet 1 tablet, 2 TIMES DAILY potassium chloride SR (MICRO-K) 10 mEq CR capsule potassium chloride ER 10 mEq capsule,extended release potassium chloride SR (MICRO-K) 10 mEq CR capsule 1 capsule DAILY (route: oral) pregabalin (LYRICA) 50 mg, ORAL, 2 TIMES DAILY PROAIR HFA 90 mcg/actuation inhaler NEEDED rimegepant sulfate (NURTEC ODT ORAL) 75 mg, ORAL sodium chloride (SALINE NASAL) 0.65 % nasal spray 2 Sprays, NASAL, 2 TIMES DAILY LABS: No results found for: CREAT Basic metabolic panel Specimen: Blood - Venous blood specimen (specimen) Component Ref Range AND Units 9 mo ago Comments Sodium 136 - 145 mmol/L 135 Low Potassium 3.5 - 5.1 mmol/L 3.9 Chloride 98 - 107 mmol/L 100 CO2 21 - 31 mmol/L 29 BUN 7 - 25 mg/dL 14 Creatinine 0.6 - 1.2 mg/dL 0.65 Glucose 70 - 100 (more content not included)...[facility]01-23-2024 Note HNO ID: [id number] Author: NASRA LO PA-C Service: ? Author Type: Physician Ballroom Dancer Type: Progress Notes Filed: 08/27/2023 09:27 Note Text: History of Present Illness Ms. LISA FERNANDO is a 48 year old female presenting to the clinic for a follow up of her bilateral otalgia and hearing loss. The following information above was copied, reviewed and is still up to date. Last seen 08/28/2022. Since last seen, She is still getting sharp pain in the ears. Does feel the hearing has worsened over time. Tinnitus, bilaterally. Reports dizziness, mostly with getting up/standing up. She is losing her balance/lightheadedness. There are times it can be room spinning. Denies falls. Recall, she has not been to vestibular PT for her symptoms. Otorrhea: denies Ear Pressure/Fullness: denies Facial Numbness, Weakness or Tingling: denies ALLERGIES Allergen Reactions Aloe Vera Other: See Comments Baclofen Other: See Comments, Swelling Cephalexin GI Upset, Vomiting Ciprofloxacin Other: See Comments Cyclobenzaprine Hives, Unknown Gabapentin Hives, Unknown, Other: See Comments Menthol Other: See Comments Metformin Hives Morphine GI Upset Nsaids (Non-Steroid* Hives, Rash, Other: See Comments Azithromycin Itching, Rash Current Outpatient Medications on File Prior to Visit Medication Sig carBAMazepine (TEGRETOL) 200 mg tablet Take 200 mg by mouth twice daily. potassium chloride SR (MICRO-K) 10 mEq CR capsule 1 capsule DAILY (route: oral) loratadine (CLARITIN) 10 mg tablet Take 1 tablet by mouth once daily. sodium chloride (SALINE NASAL) 0.65 % nasal spray Use 2 Sprays in the nose twice daily. fluticasone (FLONASE ALLERGY RELIEF) 50 mcg/actuation nasal spray Use 1 [place] in each nostril twice daily. DULoxetine (CYMBALTA) 60 mg capsule Take 60 mg by mouth. celecoxib (CELEBREX) 200 mg capsule 1 capsule DAILY (route: oral) doxycycline hyclate (VIBRAMYCIN) 100 mg capsule furosemide (LASIX) 40 mg tablet furosemide 40 mg tablet TAKE 1 TABLET BY MOUTH ONCE DAILY FOR 30 DAYS ibuprofen (MOTRIN) 800 mg tablet liraglutide (VICTOZA) 0.6 mg/0.1 mL (18 mg/3 mL) Victoza 3-Arden 0.6 mg/0.1 mL (18 mg/3 mL) subcutaneous pen injector metFORMIN (GLUCOPHAGE) 500 mg tablet metformin 500 mg tablet TAKE 1 TABLET BY MOUTH TWICE DAILY potassium chloride SR (MICRO-K) 10 mEq CR capsule potassium chloride ER 10 mEq capsule,extended release albuterol HFA (PROVENTIL HFA, VENTOLIN HFA) 90 mcg/actuation inhaler Inhale 2 Puffs as instructed. meloxicam (MOBIC) 15 mg tablet Take 1 tablet by mouth once daily. PROAIR HFA 90 mcg/actuation inhaler as needed. (Patient not taking: Reported on 04/04/2022) carbidopa-levodopa (SINEMET 10-100) 10-100 mg per tablet 1 tablet daily at bedtime. LATUDA 20 mg tablet 1 tablet once daily. OXcarbazepine (TRILEPTAL) 150 mg tablet 1 tablet twice daily. No current facility-administered medications on file prior to visit. Objective: There were no vitals taken for this visit. Appearance: Non-syndromic, cooperative and calm Communication: Voice has adequate volume; there is no stridor Head/Face: head and facial contours are symmetric Facial nerve 1/6 bilateral Skin: no skin lesions or scarring on face Ears: AD Removed cerumen from the canal opening. Patient noted tenderness at the opening. TM is intact, but appears dimeric. Removed cerumen from the canal. TM is intact. Nose: external exam with straight profile Oral Cavity: Poor dentition Oropharynx: mucosa is pink and moist Neck: no LAD Lymphatic: No lymphadenopathy or masses Neuro/Psych.: Alert and Oriented x 3 Cranial nerves intact Data Review: Assessment: (H90.3) Sensorineural hearing loss (SNHL) of both ears (primary encounter diagnosis) (R42) Dizziness (H93.13) Tinnitus, bilateral (K21.9) Gastroesophageal reflux disease, unspecified whether esophagitis present (J34.9) Nose trouble (H61.23) Bilateral impacted cerumen Plan: Patient to repeat audiogram given the changes in hearing. CT Temporal Bone to rule out middle ear abnormalities given chronic ear pain and no physical exam findings. Patient had concerns for GERD and skin in her nose. Recommended she see a colleague. Follow up after CT and audiogram. Orders: Office Visit on 08/27/23 CT TEMP BONES WO IVCON CONSULT TO ENT HEARING TEST/AUDIOGRAM cyanocobalamin (VITAMIN B-12) 1,000 mcg tab rimegepant sulfate (NURTEC ODT ORAL) glipiZIDE (GLUCOTROL) 5 mg tablet dulaglutide (TRULICITY) 4.5 mg/0.5 mL pen injector methocarbamol (ROBAXIN) 750 mg tablet pregabalin (LYRICA) 50 mg capsule Procedures: CERUMEN REMOVAL: Cerumen was removed under otomicroscopy from the Bilateral ear with curette. Preop diagnosis: Cerumen impaction. It cannot be removed without magnification and multiple instrumentations requiring physician front office medical assistant skills. Postoperative diagnosis: same Nasra Lo PA-C August 27, 2023 9:2 (more content not included)...[facility]01-15-2024 Evaluation note* Encounter Date Diagnosis Assessment Notes Treatment Notes Treatment Clinical Notes Aug, Type 2 diabetes mellitus without complications (ICD-10 - E11.9) [id number] Other 12-19-2023 NoteOrthopedic Surgery Subjective 06/19/2023 Revision, Release, Carpal Tunnel - Left and Tightrope Procedure Left Thumb - Left 07/23/23 Patient notes to be improving since her last visit. She is wearing her brace. She notes her numbness and tingling has improved since her surgery. Her thumb is less painful since her surgery and she is able to use it more. Patient History Past Surgical History: Procedure Laterality Date BREAST LUMPECTOMY Left CARPAL TUNNEL RELEASE Bilateral SECTION, LOW TRANSVERSE CHOLECYSTECTOMY HAND ARTHROPLASTY Left 03/19/2022 [facility] HAND ARTHROPLASTY Left KIDNEY STONE SURGERY KNEE ARTHROPLASTY Bilateral KNEE SURGERY Left LITHOTRIPSY Past Medical History: Diagnosis Date Anxiety Arthritis Depression Diabetes mellitus (CMS/HCC) Muscle ache LEGS Objective Exam: - Incision clean, dry, and intact. No drainage or erythema -Fires median, ulnar, radial nerve motor distribution -Sensory intact to light touch along median, ulnar, radial nerve sensory distribution Assessment/Plan Lisa Fernando is a 48 y.o. year old female s/p Revision, Release, Carpal Tunnel - Left and Tightrope Procedure Left Thumb - Left (06/19/2023) At this point in time we would like the patient to wean from her brace. She will follow-up in 3 months time. Augustine Villalpando MD PGY-4 Orthopedic Surgery [facility] By using the attestations below, the signing clinician agrees that I have read and verify that the documentation has been personally reviewed by me and ensure that the documentation accurately reflects the encounter. GC: I personally saw this patient on the day of the encounter, performed the shi portion(s) of the service and participated in the management and confirm the resident's documentation. Please note there may be an additional personal documentation from me.[facility]12-12-2023 Evaluation note* Encounter Date Diagnosis Assessment Notes Treatment Notes Treatment Clinical Notes Jul, Type 2 diabetes mellitus without complications (ICD-10 - E11.9) [email or web address] Other 11-27-2023 NoteOrthopedic Surgery 06/19/2023 Revision, Release, Carpal Tunnel - Left and Tightrope Procedure Left Thumb - Left Lisa Fernando comes in for a post-operative visit after having a left thumb tight rope procedure and revision carpal tunnel release done on 06/19/2023. Today she is doing well and has no unexpected complaints. She is already happier with her thumb. She states that she has not needed to use a nail clipper with that hand and was able to do it. This is something she would not of been able to do prior to the last surgery. Physical Exam: The incision site is healing well. There is no erythema, drainage or signs of infection. Tenderness is mild and localized to the surgical site. Sensation is present to light touch. Range of motion is appropriate for this time. Pathology report shows no evidence of amyloid deposit with [place] red staining. Assessment: Lisa Fernando is a 47 y.o. year old female with a stabilization of her left thumb metacarpal after soft tissue arthroplasty with revision carpal tunnel release. Plan: The sutures were removed in the clinic today. I instructed her on how to do scar massage and then apply lotion to the incisional site. A removable splint was applied, which can be removed for bathing and gentle range of motion. Instructions were given on activity restrictions until the next appointment. We will see her back in the clinic 4 wks.[facility] 06-19-2023 NotePatient: Lisa Fernando Procedure Summary Date: 06/19/23 Room / Location: [facility] OR 01 / [facility] OR Anesthesia Start: 1107 Anesthesia Stop: 1219 Procedures: REVISION, RELEASE, CARPAL TUNNEL (Left: Wrist) TIGHTROPE PROCEDURE LEFT THUMB (Left: Thumb) Diagnosis: Carpal tunnel syndrome of left wrist (Carpal tunnel syndrome of left wrist [G56.02]) Surgeons: Isai Sun MD Responsible Provider: Tyler Wylie MD Anesthesia Type: regional ASA Status: 3 Anesthesia Type: No value filed. Vitals Value Taken Time BP 116/63 06/19/23 1315 Temp 36.7 ???C (98.1 ???F) 06/19/23 1215 Pulse 81 06/19/23 1315 Resp 19 06/19/23 1315 SpO2 95 % 06/19/23 1315 Anesthesia Post Evaluation Patient location during evaluation: PACU Patient participation: complete - patient participated Level of consciousness: awake Pain management: adequate Cardiovascular status: acceptable Respiratory status: acceptable Hydration status: acceptable Comments: Patient was evaluated for PACU discharge prior to leaving. Note was inputted later. Patient is hemodynamically stable and is able to be discharged from PACU per anesthesia protocol. No notable events documented.[facility]11-15-2023 Note Airway Date/Time: 06/24/2023 11:37 AM Urgency: elective Airway not difficult General Information and Staff Patient location during procedure: OR Anesthesiologist: Tyler Wylie MD Resident/SUPERVISOR SKI PRODUCTION/CAA: Olivier Stephens MD Performed: resident/SUPERVISOR SKI PRODUCTION/CAA and anesthesiologist Indications and Patient Condition Indications for airway management: anesthesia Spontaneous ventilation: present Sedation level: deep Preoxygenated: yes Mask difficulty assessment: 0 - not attempted Planned trial extubation Final Airway Details Final airway type: supraglottic airway [facility] of attempts at approach: [facility] NotePatient: Lisa Fernando Procedure Information Anesthesia Start Date/Time: 06/19/231106 Procedures: REVISION, RELEASE, CARPAL TUNNEL (Left: Wrist) TIGHTROPE PROCEDURE LEFT THUMB (Left: Thumb) - C-ARM, ARTHREX NOTIFIED 06/12 NURIA Location: [facility] OR [facility] OR Surgeons: Isai Sun MD Relevant Problems Endocrine/Metabolic (+) Diabetes mellitus (CMS/HCC) (+) Obesity Other (+) Arthritis of carpometacarpal (CMC) joint of left thumb Clinical information reviewed: Tobacco Allergies Meds Med Hx Surg Hx OB Status Fam Hx Soc Hx Physical Exam Airway Mallampati: III TM distance: >3 FB Neck ROM: full Cardiovascular - normal exam Dental Comments: Poor dentition, missing multiple teeth Pulmonary - normal exam Abdominal (+) obese Anesthesia Plan ASA 3 regional (Axillary block) The patient is not a current smoker. Patient was not previously instructed to abstain from smoking on day of procedure. Patient did not smoke on day of procedure. Education provided regarding risk of obstructive sleep apnea. intravenous induction Postoperative administration of opioids is intended. Anesthetic plan and risks discussed with patient. Use of blood products discussed with patient who consented to blood products. Plan discussed with attending. [facility] Note Peripheral Block Patient location during procedure: pre-op Start time: 06/19/2023 10:25 AM End time: 06/19/2023 10:30 AM Reason for block: primary anesthetic and at surgeon's request Staffing Performed: resident/SUPERVISOR SKI PRODUCTION/CAA and anesthesiologist Anesthesiologist: Tyler Wylie MD Resident/SUPERVISOR SKI PRODUCTION: Olivier Stephens MD Preanesthetic Checklist Completed: patient identified, IV checked, site marked, risks and benefits discussed, surgical consent, monitors and equipment checked, pre-op evaluation and timeout performed Peripheral Block Patient position: supine Prep: ChloraPrep Patient monitoring: heart rate and continuous pulse ox Block type: axillary Laterality: left Injection technique: single-shot Guidance: ultrasound guided Needle Needle gauge: 22 G Needle length: 2 in Needle localization: ultrasound guidance Medications Administered bupivacaine HCl (Marcaine) 0.5 % (5 mg/mL) injection - injection 150 mg - 06/19/2023 10:25:00 AM fentaNYL (SUBLIMAZE) IV - intravenous 50 mcg - 06/19/2023 10:25:00 AM midazolam (VERSED) IV - intravenous 2 mg - 06/19/2023 10:25:00 AM Assessment Injection assessment: negative aspiration for heme, no paresthesia on injection, incremental injection and local visualized surrounding nerve on ultrasound Paresthesia pain: none Heart rate change: no Slow fractionated injection: yesUnGe[facility]11-08-2023 NoteIF YOU ARE GOING HOME AFTER YOUR SURGERY OR PROCEDURE, FOR YOUR SAFETY, YOUR SURGERY WILL BE CANCELLED IF BOTH OF THE FOLLOWING ARE NOT AVAILABLE: An adult light truck driver over the age of 18, that can receive information about your care after surgery, and drive you home. A responsible adult to stay with you for 24 hours in case of an emergency. Can be same as above. The highest risk of complications is within the first 24 hours after sedation/anesthesia. Nothing to eat or drink after midnight the night before surgery. This includes gum, candy, mints, and lozenges. No alcohol, marijuana, or tobacco products including vaping for 24 hours. Please brush your teeth; don't swallow the toothpaste or water. If you use dentures, wear them but do not use paste. Please leave any other removable dental hardware at home. Do not put in contact lenses. Do not wear perfume, make-up, nail kyrgyz, or lotions on the day of your surgery or procedure. Follow skin-prep/wipe instructions as below if required. HOLD VITAMINS AND SUPPLEMENTS STARTING 06-15. HOLD TRULICITY DOSE ON 06-17. MAY RESUME AFTER SURGERY. HOLD LASIX, GLIPIZIDE , POTASSIUM DAY OF SURGERY. TAKE ROBAXIN, CYMBALTA, SINEMET DAY OF SURGERY. Bring with you: *Insurance card *Photo ID *Medication list *Co-pay for visit/prescriptions If applicable: *Rescue inhalers *Green bracelet from lab *CPAP or BiPAP machine, if staying overnight *Any braces, splints, or equipment ordered preoperatively *Remote controls for implanted devices Leave at home: *Purse/Wallet/Contreras- unless needed for co-pay *Cell phone (can leave with family/friend or place in locker if needed) *Jewelry (including piercings and wedding bands) *If not possible, ask the person who is waiting with you to keep them Children under the age of 12 will not be allowed into patient care areas. We will call you between 3pm and 4pm the day before your surgery to give you an arrival time. If you do not receive this call, have any questions, or need to make any changes, please call [phone]. Notify your surgeon if you develop any illness such as a cold, cough, fever, sore throat or vomiting between now and your surgery. Thank you for entrusting us with your care. [facility] Surgical Services TeamLake[facility]11-06-2023 Evaluation note* Encounter Date Diagnosis Assessment Notes Treatment Notes Treatment Clinical Notes Jun, Type 2 diabetes mellitus without complications (ICD-10 - E11.9) Jun, Obesity (BMI 35.0-39.9 without comorbidity) (ICD-10 - E66.9) Jun, Mixed hyperlipidemia (ICD-10 - E78.2) Jun, Knee osteoarthritis (ICD-10 - M17.9) Jun, Vitamin B12 deficiency (ICD-10 - E53.8) Jun, Low back pain (ICD-1 0 - M54.5) Jun, Metabolic syndrome (ICD-10 - E88.81) WiMi5 Other 11-02-2023 Evaluation note* Encounter Date Diagnosis Assessment Notes Treatment Notes Treatment Clinical Notes Jun, Cough variant asthma (ICD-10 - J45.991) Take over the counter allergy medication such as Claritan, Zyrtec, Vivian and nasal spray such as flonase, nasonex, to try to stop post nasal drainage. Use saline nasal rinse prior to medication nasal spray to lessen irritation. Jun, Reactive airway disease (ICD-10 - J45.909) [email or web address] Other 10-31-2023 NoteOrthopedic Surgery Subjective Chief complaint: Chief Complaint Patient presents with Left Hand - Edema, Numbness, Decreased Range Of Motion, Pain Lisa Fernando is a 47 y.o. year old female presenting for evaluation of Left hand pain. She recently had EMGs which show mild to moderate carpal tunnel syndrome of the left hand. She states that she continues to wear her night splints and back that does help but she still wakes up with her hand being numb even with the splint. She is having worsening trouble with her hands doing normal daily activities. She still has pain at the basilar joint of her thumb. I was hoping that this would start resolving without further treatment but she states that it has not changed. Previous Treatments: Deleon arthroplasty left thumb with subsequent resection of scaphoid trapezoid joint Patient History Past Surgical History: Procedure Laterality Date BREAST LUMPECTOMY Left CARPAL TUNNEL RELEASE Bilateral SECTION, LOW TRANSVERSE CHOLECYSTECTOMY HAND ARTHROPLASTY Left 03/19/2022 [facility] HAND ARTHROPLASTY Left KIDNEY STONE SURGERY KNEE ARTHROPLASTY KNEE SURGERY Left LITHOTRIPSY Past Medical History: Diagnosis Date Anxiety Arthritis Depression Diabetes mellitus (CMS/HCC) Muscle ache LEGS Objective General: Body mass index is 39.15 kg/m???. No acute distress, comfortable Respiratory: Unlabored breathing with normal rate, no cough Cardiovascular: Warm well perfused extremities Psych: Appropriate mood behavior Hand/Wrist Musculoskeletal Exam Inspection Left Left hand/wrist inspection is normal. Incision: well-healed Palpation Left Thumb tenderness to palpation: carpometacarpal joint Dorsal hand - 1st metacarpal tenderness to palpation: CMC Range of Motion Left Hand Left hand range of motion is normal. Neurovascular Left Left neurovascular exam is normal. Capillary refill: brisk Ulnar nerve sensory distribution: normal Median nerve sensory distribution: decreased Superficial radial nerve sensory distribution: normal Special Tests Left Phalen's: positive Tinel's - carpal tunnel: positive Tinel's - cubital tunnel: negative Special tests additional comments: there is still pain with a grind test, and that at the proximal end of the metacarpal but there is something catching when I pressed the metacarpal up against the base of the index metacarpal or the trapezoid. The pain is lessened when I do that and pulled traction on the thumb as opposed to immediate. Imaging: None today Assessment/Plan Lisa Fernando is a 47 y.o. year old female with Carpal tunnel syndrome of left wrist and persistent pain at the basilar joint of her left thumb PLAN: we talked about some options for treatment. The thumb is really problematic. The only thing I can think to do at this point would be a tight rope procedure and see if we can pull the thumb back out to length and stabilize it a little bit better. I think that with. Worsening symptoms of carpal tunnel syndrome it would be worth doing a revision carpal tunnel release as this was confirmed by EMG. We will set her up for a revision carpal tunnel release and tighten up on her left thumb. The surgical procedure along with the risks and benefits were discussed today in the clinic. Consent for the surgery was reviewed and signed. We will see them back in clinic following the procedure.[facility]10-12-2023 Note Attestation with edits by Milan Sellesr MD at 05/16/2023 2:48 PM I personally saw and examined the patient on the same date of service as resident/fellow Dr. Ryan. I discussed the findings and therapeutic plan with the resident/fellow on 05/16. I agree with the documentation, except for any edits/updates below. Teaching Physician's Revisions: EMG is consistent with a superficial radial nerve injury, supported by the low amplitude radial sensory. There was also evidence of mild to moderate carpal tunnel syndrome as evidenced by the sensory and motor findings. ASSESSMENT/PLAN: Lisa was seen today for emg. Diagnoses and all orders for this visit: Numbness and tingling in left hand - EMG Impression: Incomplete injury to the left superficial radial sensory nerve Mild to moderate left carpal tunnel syndrome No other evidence of peripheral nerve injury, entrapment, plexopathy or radiculopathy No follow-ups on file. Yasmani Ryan SUBJECTIVE: Lisa Fernando is a 47 y.o. female who presents to [facility] today for LUE EMG/NCS HPI: Patient having left hand numbness since thumb surgery in October. Numbness over dorsal thumb and wrist. Does also note some palmar numbness. Carpal tunnel release years ago, symptoms got somewhat better afterwards. Denies weakness. Review of Systems No fevers or chills Patient Active Problem List Diagnosis Arthritis of carpometacarpal (CMC) joint of left thumb Outpatient Medications Prior to Visit Medication Sig Dispense Refill albuterol 90 mcg/actuation inhaler if needed. calcipotriene (Dovonex) 0.005 % ointment APPLY TO SCALP TOPICALLY OR MIX WITH CLOBETASOL SHAMPOO 2- 3 TIMES A WEEK carBAMazepine (TEGretol) 100 mg chewable tablet 200 mg once daily as directed. carbidopa-levodopa (Sinemet) 10-100 mg tablet Take 1 tablet by mouth at bedtime. celecoxib (CeleBREX) 200 mg capsule 1 capsule DAILY (route: oral) clobetasoL 0.05 % shampoo LATHER ON WET HAIR, LEAVE ON 5 MIN, RINSE TOPICALLLY 2-3 WEEKLY cyanocobalamin (Vitamin B-12) 1,000 mcg tablet Take 1,000 mcg by mouth in the morning. DULoxetine (Cymbalta) [address] capsule Take 30 mg by mouth in the morning. Do not crush or chew. PT TAKES WITH 60 MG CAPSULE FOR TOTAL DOSE OF 90 MG. DULoxetine (Cymbalta) [address] capsule Take 60 mg by mouth in the morning. ALSO TAKES 30 MG CAPSULE FOR TOTAL DOSE OF 90 MG. fluocinonide (Lidex) 0.05 % external solution fluocinonide 0.05 % topical solution APPLY TO SCALP (AVOID FACE AND NECK) DAILY NEEDED FOR FLARES furosemide (Lasix) 40 mg tablet Take 40 mg by mouth in the morning. ibuprofen 800 mg tablet Take 800 mg by mouth every 6 (six) hours if needed. liraglutide (Victoza) 0.6 mg/0.1 mL (18 mg/3 mL) injection Inject 0.6 mg under the skin in the morning. pen needle, diabetic 32 gauge x 5/32 needle DIRECTED SUBCUTANEOUSLY DAILY potassium chloride CR (K-Tab) 20 mEq ER tablet TAKE 1 TABLET BY MOUTH ONCE DAILY WITH FOOD rimegepant (Nurtec ODT) 75 mg tablet,disintegrating Nurtec ODT 75 mg disintegrating tablet TAKE 1 TABLET BY MOUTH AT THE ONSET OF MIGRAINE Symbicort 160-4.5 mcg/actuation inhaler INHALE 2 PUFFS BY MOUTH TWICE DAILY NEEDED FOR UP TO 12 PUFFS No facility-administered medications prior to visit. Allergies Allergen Reactions Amoxicillin Unknown Cyclobenzaprine Unknown Morphine Nausea And Vomiting Ciprofloxacin Rash Penicillins Rash Topamax [Topiramate] Rash OBJECTIVE: Vitals: 05/16/23 0918 BP: 118/67 BP Location: Left arm Patient Position: Sitting BP Cuff Size: Adult Pulse: 76 Weight: 100 kg (221 lb) Height: 1.6 m (5' 3 ) Body mass index is 39.15 kg/m???. Physical Exam: General: Pleasant, sitting comfortably in the room in no acute distress HEENT: No obvious deformities CVS: extremities well perfused, no peripheral cyanosis in exposed areas Lung: normal effort of breathing, no accessory muscle usage Psyche: mood and affect appropriate and normal Skin: clean, dry, intact at procedure sites Neurologically: Alert, oriented, followed commands Musculoskeletal exam: Moves all extremities spontaneously. Studies: PROCEDURE NOTE: [place] Protocol / Time: Immediately prior to the procedure a time out was called. Relevant documents were present and verified. Site/side verified. Patient identity confirmed verbally with patient. 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 Verbal consent was obtained, and consent given by patient. Risks of the procedure and alternatives discussed. Risks and benefits of the EMG / NCS were discussed verbally including bleeding, infection and pain. Patient was agreeable to proceed with testing. Please see (more content not included)...[facility]08-31-2023 Note Orthopedic Surgery Subjective Chief complaint: Chief Complaint Patient presents with Right Hand - Follow-up Left Hand - Follow-up Lisa Fernando is a 47 y.o. year old female presenting for evaluation of persisting pain in her left thumb. She underwent a soft tissue arthroplasty and then a revision for potential abutment between the base of the thumb and index metacarpals. She is now 6 months out from that last procedure. She has been in occupational therapy in 15 visits. There is some regaining but she still complains of some weakness in the thumb and pain with use. She is also complaining of numbness in the median nerve distribution. She states she wakes up at night with numbness in the hand. Previous Treatments: Soft tissue arthroplasty and revision, Occupational Therapy Patient History Past Surgical History: Procedure Laterality Date BREAST LUMPECTOMY Left CARPAL TUNNEL RELEASE Bilateral SECTION, LOW TRANSVERSE CHOLECYSTECTOMY HAND ARTHROPLASTY Left 03/19/2022 [facility] HAND ARTHROPLASTY Left KIDNEY STONE SURGERY KNEE ARTHROPLASTY KNEE SURGERY Left LITHOTRIPSY Past Medical History: Diagnosis Date Anxiety Arthritis Depression Diabetes mellitus (CMS/HCC) Muscle ache LEGS Objective General: Body mass index is 37.2 kg/m???. No acute distress, comfortable Respiratory: Unlabored breathing with normal rate, no cough Cardiovascular: Warm well perfused extremities Psych: Appropriate mood behavior Hand/Wrist Musculoskeletal Exam Inspection Left Left hand/wrist inspection is normal. Palpation Left Thumb tenderness to palpation: carpometacarpal joint Dorsal hand - 1st metacarpal tenderness to palpation: CMC Palpation additional comments: every once in a while with certain motions I can feel the base of the thumb metacarpal but against the bone there is either trapezoid or base of the index. It is much less so than it was prior to the last surgery and I do not feel the crepitus that she had before. Range of Motion Left Hand Left hand range of motion is normal. Neurovascular Left Left neurovascular exam is normal. Special Tests Left Phalen's: negative Tinel's - carpal tunnel: negative Tinel's - cubital tunnel: negative Imaging: X-rays of the left hand were taken today. There is significant shortening of the metacarpal. I do not see any direct abutment. X-rays of the right hand do not show any gross abnormal. Assessment/Plan Lisa Fernando is a 47 y.o. year old female with Bilateral hand pain Numbness and tingling in left hand and residual pain at the basilar joint of her left thumb PLAN: but not certain I really want to do any further surgery on the thumb at this point. I would give this a little more time to see if that abutment resolves. It might be worth getting an EMG with complaints of numbness in the hand and that night pain just to make sure were not missing a cause for her discomfort. We will see her back after that is done.[facility]08-17-2023 Evaluation note* Encounter Date Diagnosis Assessment Notes Treatment Notes Treatment Clinical Notes Mar, Osteoarthritis of lumbosacral spine without myelopathy (ICD-10 - M47.817) We discussed treatment options for the patient's persistent low back pain. She shows notable pain consistent with degenerative changes of the lumbar spine. We discussed the possible benefit of treatment of the facet region for axial back pain. Based on previous positive results, as well as location of pain and exam findings, patient is a candidate for bilateral lumbar facet radiofrequency ablations which we will proceed with. Risks and benefits of procedure explained to patient; patient verbalizes understanding. Anatomy of spine discussed in detail with patient in regard to patients condition. Mar, Chronic pain (ICD-10 - G89.29) Mar, Other low back pain (ICD-10 - M54.59) Mar, Other Above note writ ten by Fab Fernando MA, Outbound Sales Consultant. Edited and approved by Dr. Kenny Villarreal MD. [email or web address] Other 07-26-2023 Evaluation note* Encounter Date Diagnosis Assessment Notes Treatment Notes Treatment Clinical Notes Feb, Type 2 diabetes mellitus without complications (ICD-10 - E11.9) Feb, Obesity (BMI 35.0-39.9 without comorbidity) (ICD-10 - E66.9) Feb, Vitamin B12 deficiency (ICD-10 - E53.8) Feb, Mixed hyperlipidemia (ICD-10 - E78.2) Feb, Knee osteoarthritis (ICD-10 - M17.9) Feb, Low back pain (ICD-1 0 - M54.5) Feb, Metabolic syndrome (ICD-10 - E88.81) [email or web address] Other 07-03-2023 Evaluation note* Encounter Date Diagnosis Assessment Notes Treatment Notes Treatment Clinical Notes Feb, Colon cancer screening (ICD-10 - Z12.11) declines colonoscopy but agreeable to cologuard. Feb, Chronic migraine w/o aura w/o status migrainosus, not intractable (ICD-10 - G43.709) gave samples of nurtec as this usually helps her and she is out. she will follow with neurology. Feb, Restless leg syndrome (ICD-10 - G25.81) she is taking 3-4 carbidopa/levadopa encouraged to just take 2 daily can discuss with cardiology in a week at her follow up visit. she agreed. [email or web address] Other 06-26-2023 Evaluation note* Encounter Date Diagnosis Assessment Notes Treatment Notes Treatment Clinical Notes Jan, Osteoarthritis of lumbosacral spine without myelopathy (ICD-10 - M47.817) We discussed treatment options for the patient's persistent low back pain. Lumbar MRI did not show evidence of significant stenosis or nerve impingement, it was discussed her issue is not likely surgical. She shows notable pain consistent with degenerative changes of the lumbar spine. We discussed the possible benefit of treatment of the facet region for axial back pain. Her pain is higher than previously noted. Patient is a reasonable candidate for diagnostic bilateral lumbar facet medial branch nerve blocks, at levels L1/L2 and L2/L3, which we will proceed with. Risks and benefits of procedure explained to patient; patient verbalizes understanding. It was further explained should this provide significant short term relief we will proceed with a repeat block and subsequent radiofrequency ablation. Anatomy of spine discussed in detail with patient in regard to patients condition. Jan, Chronic pain (ICD-10 - G89.29) Jan, Other low back pain (ICD-10 - M54.59) Jan, Other Above note writ ten by Briana Rosales LPN, Outbound Sales Consultant. Edited and approved by Dr. Kenny Villarreal MD. [employer] Other 06-13-2023 NoteOrthopedic Surgery 10/25/2022 Thumb/index interposition arthroplasty hand - Left 01/15/23 She takes tylenol and remains sore. + numbness tingling. Hypersensitive to incision Lisa Fernando comes in for a post-operative visit after having a left thumb metacarpal interposition done on 10/25/2022. Today she is doing well and has no unexpected complaints. The hand still feels significantly weak. Physical Exam: The incision site is healing well. There is no erythema, drainage or signs of infection. Tenderness is mild and localized to the surgical site. Sensation is present to light touch. Range of motion is appropriate for this time. Pushing base of thumb does not abut against scaphoid Assessment: Lisa Fernando is a 47 y.o. year old female with Arthritis of carpometacarpal (CMC) joint of left thumb Plan: -Return to clinic in 3 months -Continue home exercise stretching and therapy Leon Walters MD By using the attestations below, the signing clinician agrees that I have read and verify that the documentation has been personally reviewed by me and ensure that the documentation accurately reflects the encounter. GC: I personally saw this patient on the day of the encounter, performed the shi portion(s) of the service and participated in the management and confirm the resident's documentation. Please note there may be an additional personal documentation from me.[facility]05-31-2023 Evaluation note* Encounter Date Diagnosis Assessment Notes Treatment Notes Treatment Clinical Notes December, Osteoarthritis of lumbosacral spine without myelopathy (ICD-10 - M47.817) Patients primary complaint today is severe low lumbar pain, occasionally radiating into her bilateral lower extremities. Given her failure of previous conservative treatment such as injections, therapy, activity modification and pharmacological therapy, as well as progressing symptoms, I will order an updated MRI of her lumbar spine for further evaluation. Pending the results, we can consider further injections vs a referral to neurosurgery. We will follow up with the patient once we obtain her MRI results. In the meantime, she will continue her current medication regimen. Anatomy of spine discussed in detail with patient in regards to patients condition. December, Other low back pain (ICD-10 - M54.59) December, Other chronic pain (ICD-10 - G89.29) December, Other Above note writ ten by Fab Fernando MA, Outbound Sales Consultant. Edited and approved by Dr. Kenny Villarreal MD. [employer] Other 05-11-2023 History of Present illness Narrative* Regina Atkins OD - 12/13/2022 2:52 PM EDT (H18.413) Arcus senilis, bilateral (primary encounter diagnosis) Plan: - Recommend cholesterol check with PCP (H52.223) Regular astigmatism, bilateral (H52.4) Bilateral presbyopia Plan: - Spectacle prescription given to patient. - Return for refraction in 1 year. I have confirmed and edited as necessary the relevant ophthalmic history, ROS, and the neuro exam findings as obtained by others. I have seen and examined Lisa Fernando. I also have reviewed and agree with the assessment and plan as stated above and agree with all of its relevant components. Regina Atkins OD [facility]* Encounter Date Diagnosis Assessment Notes Treatment Notes Treatment Clinical Notes December, Osteoarthritis of lumbosacral spine without myelopathy (ICD-10 - M47.817) We discussed treatment options for the patient's persistent low back pain. She shows notable pain consistent with degenerative changes of the lumbar spine. This appears higher than previously noted. We discussed the possible benefit of treatment of the facet region for axial back pain. Patient is a reasonable candidate for diagnostic bilateral lumbar facet medial branch nerve blocks which we will proceed with. Risks and benefits of procedure explained to patient; patient verbalizes understanding. It was further explained should this provide significant short term relief we will proceed with a repeat block and subsequent radiofrequency ablation. In the meantime we will provide her a perescription for Methocarbamol 500 mg once daily as needed. Risks and side effects of this medication was discussed in detail with the patient who voiced understanding. Anatomy of spine discussed in detail with patient in regard to patients condition. December, Other low back pain (ICD-10 - M54.59) December, Other chronic pain (ICD-10 - G89.29) December, Other Above note writ ten by Briana Rosales LPN, Outbound Sales Consultant. Edited and approved by Dr. Kenny Villarreal MD. [employer] Other 05-02-2023 NoteOrthopedic Surgery 10/25/2022 Thumb/index interposition arthroplasty hand - Left Lisa Fernando comes in for a post-operative visit after having a left thumb metacarpal interposition done on 10/25/2022. Today she is doing well and has no unexpected complaints. The hand still feels significantly weak. Physical Exam: The incision site is healing well. There is no erythema, drainage or signs of infection. Tenderness is mild and localized to the surgical site. Sensation is present to light touch. Range of motion is appropriate for this time. I can still feel just a little bit of crepitus when I push the base of the thumb against the base of the index finger, but it is much better than what it was. Assessment: Lisa Fernando is a 47 y.o. year old female with Arthritis of carpometacarpal (CMC) joint of left thumb Plan: We discussed some options and she would like to get into occupational therapy for strengthening as the hand feels very weak. I think that is appropriate. A prescription was given for that. I would like to see her back in about 6 weeks to make sure she is doing okay.[facility]04-11-2023 NoteOrthopedic Surgery Visit Description: Postop visit Subjective Chief complaint: 1st postop visit s/p L soft tissue interpositional arthroplasty between thumb and index metacarpal bases 11/13/22 47-year-old female presenting for what is her second postoperative visit status post above-mentioned procedure. Date of surgery 10/25/2022. Unfortunately, she was recently seen in the ER because she continues to have concerns about infection around the pin site. Orthopedics saw her at that time and assured her that there is no infection. She has continued to be very painful about the pin site and is now concerned because the pin has granulated over and she can no longer see it. She cannot wear her custom fabricated brace due to the pain. 11/06/2022 Lisa Fernando is a 47 y.o. year old female presenting for first postoperative visit status post above-mentioned procedure. Date of surgery: 10/25/2022. Patient has been quite painful since surgery. There is also concern that she developed a pin site infection for which she went to to outside facilities. She has been on p.o. Bactrim for few days now and is responding well to it. She has been using a custom fabricated splint for immobilization. Patient History Past Surgical History: Procedure Laterality Date BREAST LUMPECTOMY Left CARPAL TUNNEL RELEASE Bilateral SECTION, LOW TRANSVERSE CHOLECYSTECTOMY HAND ARTHROPLASTY Left 03/19/2022 [facility] HAND ARTHROPLASTY Left KIDNEY STONE SURGERY KNEE ARTHROPLASTY KNEE SURGERY Left LITHOTRIPSY Past Medical History: Diagnosis Date Anxiety Arthritis Depression Diabetes mellitus (CMS/HCC) Muscle ache LEGS Objective General: There is no height or weight on file to calculate BMI. General: No acute distress, comfortable Respiratory: Unlabored breathing with normal rate, no cough Cardiovascular: Warm and well perfused extremities Psych: Appropriate mood and behavior. Alert and oriented to person, place, time, and event Left hand: -Surgical incisions are clean/dry/intact with appropriate healing -Pin site has some mild surrounding erythema but no cee purulence. The pin site has been completely granulated over -Hand is NVI Imaging personally reviewed: No new imaging today Assessment/Plan Lisa Fernando is a 47 y.o. year old female She is status post L soft tissue interpositional arthroplasty between thumb and index metacarpal bases. DOS: 10/25/2022 -Pin removed in clinic today -She is to remain in her custom brace at all times for the next 3 weeks -12 tablets of [place] prescribed today for continued pain control. 12 tablets of Zofran prescribed today for nausea and vomiting as patient become quite nauseous during pin removal -Patient to remain off of work for next 3 weeks -Scar massage to both incisions on a daily basis Return to Clinic in 3 weeks time or we will reassess her for possible return to work. At that time, we will also most likely begin her in OT Pranay Cárdenas MD Orthopedic Surgery, PGY-3 [facility] Pager: [phone] 11/13/22 3:49 PM By using the attestations below, the signing clinician agrees that I have read and verify that the documentation has been personally reviewed by me and ensure that the documentation accurately reflects the encounter. Office Visit Attestation GC: I personally saw this patient on the day of the encounter, performed the shi portion(s) of the service and participated in the management and confirm the resident's documentation. Please note there may be an additional personal documentation from me.[facility]04-08-2023 Note ORTHOPEDIC SURGERY CONSULTATION CHIEF COMPLAINT: Post-op Problem HPI: Lisa Fernando is a 47 y.o. female with complaint of left hand pain. Patient underwent soft tissue interposition arthroplasty with Dr. Sun on 10/25/22. Her postoperative course has been complicated by significant pain and concern for an site infection for which she was evaluated at an outside hospital and the [facility] ED last week. She was also seen in clinic on 11/06/2022, where the Bactrim was continued and her [place] prescription was refilled. Patient reports increased left hand pain beginning earlier today. She also notes that the pin has been pushed in , and she believes this is contributing to her pain. Reports difficulty with finger motion as well as global numbness to the left hand. Denies any recent injuries to the area. States the erythema and drainage have improved while on antibiotics. She reports wearing her OT splint as directed but does not have it with her today. Patient History Past Surgical History: Procedure Laterality Date BREAST LUMPECTOMY Left CARPAL TUNNEL RELEASE Bilateral SECTION, LOW TRANSVERSE CHOLECYSTECTOMY HAND ARTHROPLASTY Left 03/19/2022 [facility] HAND ARTHROPLASTY Left KIDNEY STONE SURGERY KNEE ARTHROPLASTY KNEE SURGERY Left LITHOTRIPSY Past Medical History: Diagnosis Date Anxiety Arthritis Depression Diabetes mellitus (CMS/HCC) Muscle ache LEGS Pertinent Social Hx: Former smoker Currently taking any blood thinners: No Past Medical History: Diagnosis Date Anxiety Arthritis Depression Diabetes mellitus (CMS/HCC) Muscle ache LEGS Past Surgical History: Procedure Laterality Date BREAST LUMPECTOMY Left CARPAL TUNNEL RELEASE Bilateral SECTION, LOW TRANSVERSE CHOLECYSTECTOMY HAND ARTHROPLASTY Left 03/19/2022 [facility] HAND ARTHROPLASTY Left KIDNEY STONE SURGERY KNEE ARTHROPLASTY KNEE SURGERY Left LITHOTRIPSY Allergies Allergen Reactions Amoxicillin Unknown Cyclobenzaprine Unknown Morphine Nausea And Vomiting Ciprofloxacin Rash Penicillins Rash Topamax [Topiramate] Rash Current Facility-Administered Medications: HYDROmorphone (Dilaudid) injection 0.3 mg, 0.3 mg, intramuscular, Once, Jacqui العراقي MD Current Outpatient Medications: acetaminophen (Tylenol) 500 mg tablet, acetaminophen 500 mg tablet, Disp: , Rfl: albuterol 90 mcg/actuation inhaler, if needed., Disp: , Rfl: calcipotriene (Dovonex) 0.005 % ointment, APPLY TO SCALP TOPICALLY OR MIX WITH CLOBETASOL SHAMPOO 2- 3 TIMES A WEEK, Disp: , Rfl: carBAMazepine (TEGretol) 100 mg chewable tablet, 200 mg once daily as directed., Disp: , Rfl: carbidopa-levodopa (Sinemet) 10-100 mg tablet, Take 1 tablet by mouth at bedtime., Disp: , Rfl: celecoxib (CeleBREX) 200 mg capsule, 1 capsule DAILY (route: oral), Disp: , Rfl: cetirizine (ZyrTEC) 10 mg tablet, Take 10 mg by mouth if needed., Disp: , Rfl: clobetasoL 0.05 % shampoo, LATHER ON WET HAIR, LEAVE ON 5 MIN, RINSE TOPICALLLY 2-3 WEEKLY, Disp: , Rfl: clotrimazole-betamethasone (Lotrisone) cream, APPLY TO THE AFFECTED AREA TWICE A DAY, Disp: , Rfl: cyanocobalamin (Vitamin B-12) 1,000 mcg tablet, Take 1,000 mcg by mouth in the morning., Disp: , Rfl: diphenhydrAMINE 25 mg tablet, TAKE 1 TABLET BY MOUTH EVERY 8 HOURS NEEDED FOR ITCHING, Disp: , Rfl: DULoxetine (Cymbalta) 30 mg capsule, Take 30 mg by mouth in the morning. Do not crush or chew. PT TAKES WITH 60 MG CAPSULE FOR TOTAL DOSE OF 90 MG., Disp: , Rfl: DULoxetine (Cymbalta) [address] capsule, Take 60 mg by mouth in the morning. ALSO TAKES 30 MG CAPSULE FOR TOTAL DOSE OF 90 MG., Disp: , Rfl: estradiol (Estrace) 0.01 % (0.1 mg/gram) vaginal cream, INSERT 1 GRAM VAGINALLY ON SATURDAY,SATURDAY AND SATURDAY, Disp: , Rfl: fluocinonide (Lidex) 0.05 % external solution, fluocinonide 0.05 % topical solution APPLY TO SCALP (AVOID FACE AND NECK) DAILY NEEDED FOR FLARES, Disp: , Rfl: furosemide (Lasix) 40 mg tablet, Take 40 mg by mouth in the morning., Disp: , Rfl: HYDROcodone-acetaminophen (Arlington) 5-325 mg tablet, Take 1 tablet by mouth every 6 (six) hours if needed for severe pain (8-10 pain score) for up to 7 days., Disp: 12 tablet, Rfl: 0 ibuprofen 800 mg tablet, Take 800 mg by mouth every 6 (six) hours if needed., Disp: , Rfl: liraglutide (Victoza) 0.6 mg/0.1 mL (18 mg/3 mL) injection, Inject 0.6 mg under the skin in the morning., Disp: , Rfl: loratadine (Claritin) 10 mg tablet, Take 10 mg by mouth in the morning., Disp: , Rfl: pen needle, diabetic 32 gauge x 5/32 needle, DIRECTED SUBCUTANEOUSLY DAILY, Disp: , Rfl: potassium chloride CR (K-Tab) 20 mEq ER tablet, TAKE 1 TABLET BY MOUTH ONCE DAILY WITH FOOD, Disp: , Rfl: rimegepant (Nurtec ODT) 75 mg tablet,disintegrating, Nurtec ODT 75 mg disintegrating tablet TAKE 1 TABLET BY MOUTH AT THE ONSET OF MIGRAINE, Disp: , Rfl: Symbicort 160-4.5 mcg/actuation inhaler, INHALE 2 PUFF (more content not included)...[facility]04-04-2023 NoteOrthopedic Surgery Visit Description: Postop visit Subjective Chief complaint: 1st postop visit s/p L soft tissue interpositional arthroplasty between thumb and index metacarpal bases 11/06/22 Lisa Fernando is a 47 y.o. year old female presenting for first postoperative visit status post above-mentioned procedure. Date of surgery: 10/25/2022. Patient has been quite painful since surgery. There is also concern that she developed a pin site infection for which she went to to outside facilities. She has been on p.o. Bactrim for few days now and is responding well to it. She has been using a custom fabricated splint for immobilization. Patient History Past Surgical History: Procedure Laterality Date BREAST LUMPECTOMY Left CARPAL TUNNEL RELEASE Bilateral SECTION, LOW TRANSVERSE CHOLECYSTECTOMY HAND ARTHROPLASTY Left 03/19/2022 [facility]tons HAND ARTHROPLASTY Left KIDNEY STONE SURGERY KNEE ARTHROPLASTY KNEE SURGERY Left LITHOTRIPSY Past Medical History: Diagnosis Date Anxiety Arthritis Depression Diabetes mellitus (CMS/HCC) Muscle ache LEGS Objective General: Body mass index is 37.02 kg/m???. General: No acute distress, comfortable Respiratory: Unlabored breathing with normal rate, no cough Cardiovascular: Warm and well perfused extremities Psych: Appropriate mood and behavior. Alert and oriented to person, place, time, and event Left hand: -Surgical incisions are clean/dry/intact with appropriate healing -Pin site has some mild surrounding erythema but no cee purulence -Hand is NVI Imaging personally reviewed: No new imaging today Assessment/Plan Lisa Fernando is a 47 y.o. year old female with Arthritis of carpometacarpal (CMC) joint of left thumb [M18.12] She is status post L soft tissue interpositional arthroplasty between thumb and index metacarpal bases. DOS: 10/25/2022 -Maintain pin for an additional 4 weeks -Patient was instructed to remain in custom OT brace for the next 4 weeks -12 tablets of Arlington prescribed today for continued pain control -Patient will continue her p.o. course of Bactrim until finishes -Patient to remain off of work for next 4 weeks -Scar massage to both incisions on a daily basis Return to Clinic 4 weeks Pranay Cárdenas MD Orthopedic Surgery, PGY-3 [facility] Pager: [phone] 11/06/22 2:30 PM By using the attestations below, the signing clinician agrees that I have read and verify that the documentation has been personally reviewed by me and ensure that the documentation accurately reflects the encounter. Office Visit Attestation GC: I personally saw this patient on the day of the encounter, performed the shi portion(s) of the service and participated in the management and confirm the resident's documentation. Please note there may be an additional personal documentation from me.[facility]04-02-2023 Note ORTHOPEDIC SURGERY CONSULTATION CHIEF COMPLAINT: postop surgical pain HPI: Lisa Fernando is a 47 y.o. female with complaint of pain and reported drainage from left hand pin site. Patient recently had surgery on 10/25/2022, consisting of thumb/index interposition arthroplasty of the left hand. Patient states that over the last 2 to 3 days she had noticed increased redness and pain at her left hand pin site. She does endorse some drainage from the pin site today. She came to the ED for evaluation and assessment for possible infection. Currently, she rates her pain at a 7/10. She states it does increase with activity. Of note, patient was placed in a plaster splint postoperatively that she subsequently removed due to irritation. She was then seen by OT and was given a custom molded orthosis for her left hand. Patient states that this also irritates her at the pin site even when she pads the area. She has been intermittently wearing this custom molded orthosis due to these symptoms. Denies any fevers, chills, shortness of breath, chest pain. Patient not currently taking any antibiotics. Patient History Past Surgical History: Procedure Laterality Date BREAST LUMPECTOMY Left CARPAL TUNNEL RELEASE Bilateral SECTION, LOW TRANSVERSE CHOLECYSTECTOMY HAND ARTHROPLASTY Left 03/19/2022 burtons HAND ARTHROPLASTY Left KIDNEY STONE SURGERY KNEE SURGERY Left LITHOTRIPSY Past Medical History: Diagnosis Date Anxiety Arthritis Depression Diabetes mellitus (CMS/HCC) Muscle ache LEGS Past Medical History: Diagnosis Date Anxiety Arthritis Depression Diabetes mellitus (CMS/HCC) Muscle ache LEGS Past Surgical History: Procedure Laterality Date BREAST LUMPECTOMY Left CARPAL TUNNEL RELEASE Bilateral SECTION, LOW TRANSVERSE CHOLECYSTECTOMY HAND ARTHROPLASTY Left 03/19/2022 burtons HAND ARTHROPLASTY Left KIDNEY STONE SURGERY KNEE SURGERY Left LITHOTRIPSY Allergies Allergen Reactions Morphine Nausea And Vomiting Penicillins Rash Topamax [Topiramate] Rash No current facility-administered medications for this encounter. Current Outpatient Medications: albuterol 90 mcg/actuation inhaler, if needed., Disp: , Rfl: calcipotriene (Dovonex) 0.005 % ointment, APPLY TO SCALP TOPICALLY OR MIX WITH CLOBETASOL SHAMPOO 2- 3 TIMES A WEEK, Disp: , Rfl: carBAMazepine (TEGretol) 100 mg chewable tablet, 200 mg once daily as directed., Disp: , Rfl: carbidopa-levodopa (Sinemet) 10-100 mg tablet, Take 1 tablet by mouth at bedtime., Disp: , Rfl: celecoxib (CeleBREX) 200 mg capsule, 1 capsule DAILY (route: oral), Disp: , Rfl: cetirizine (ZyrTEC) 10 mg tablet, Take 10 mg by mouth if needed., Disp: , Rfl: DULoxetine (Cymbalta) [address] capsule, Take 30 mg by mouth in the morning. Do not crush or chew. PT TAKES WITH 60 MG CAPSULE FOR TOTAL DOSE OF 90 MG., Disp: , Rfl: DULoxetine (Cymbalta) [address] capsule, Take 60 mg by mouth in the morning. ALSO TAKES 30 MG CAPSULE FOR TOTAL DOSE OF 90 MG., Disp: , Rfl: furosemide (Lasix) 40 mg tablet, Take 40 mg by mouth in the morning., Disp: , Rfl: ibuprofen 800 mg tablet, Take 800 mg by mouth every 6 (six) hours if needed., Disp: , Rfl: liraglutide (Victoza) 0.6 mg/0.1 mL (18 mg/3 mL) injection, Inject 0.6 mg under the skin in the morning., Disp: , Rfl: potassium chloride CR (K-Tab) 20 mEq ER tablet, TAKE 1 TABLET BY MOUTH ONCE DAILY WITH FOOD, Disp: , Rfl: Social History Socioeconomic History Marital status: Spouse name: Not on file Number of children: Not on file Years of education: Not on file Highest education level: Not on file Occupational History Not on file Tobacco Use Smoking status: Former Types: Cigarettes Smokeless tobacco: Former Vaping Use Vaping Use: Some days Substance and Sexual Activity Alcohol use: Yes Comment: OCCASIONALY Drug use: Never Sexual activity: Not on file Other Topics Concern Not on file Social History Narrative Not on file Social Determinants of Health Financial Resource Strain: Not on file Food Insecurity: Not on file Transportation Needs: Not on file Physical Activity: Not on file Stress: Not on file Social Connections: Not on file Intimate Partner Violence: Not on file Housing Stability: Not on file No family history on file. Pertinent review of systems negative except for what is documented in the HPI. Physical exam: Vitals: 11/04/22 0000 BP: Pulse: Resp: Temp: SpO2: 99% General: AOx3, mild distress 2/2 pain Resp: unlabored breathing MSK: Left UE -Pin site just proximal to thumb at radial aspect of hand with minimal erythema. No expressible purulent drainage. Moderate tenderness to palpation around pin site. Surgical incisions on the distal forearm and hand appear well approximated with no signs of dehiscence, erythema or drainage. - ROM: Deferred 2/2 pain - Compartments of right upper (more content not included)...[facility]04-01-2023 Progress note Author Walter Zhang [facility] November 03, 2022 4:17pm Note Date/Time November 03, 2022 3:23 pm [facility] [address] [place] [address] Hospitalist Progress Note Signed Patient: Lisa Fernando MR#: [id number] : 1975 Acct:[id number] Age/Sex: 47 / F Adm Date: 3 Loc: Room: [address] [place] [address] Type: ADM IN Attending Dr: Walter Zhang MD Copies to: ~ Date of Service: 11/03/2022 Subjective Subjective Narrative: Patient seen and examined. She appears still restless, complaining of itching in her left thumb from the surgery but denies any pain. States that she has a bad habit of scratching the wound and realizes that she should not do it. She is otherwise hemodynamically stable and is afebrile. Exam Physical Exam Vital Signs: Temp Pulse Resp BP Pulse Ox O2 Del Method 97.6 F 67 16 111/74 97 Room Air 11/03/22 12:00 11/03/22 12:00 11/03/22 12:11/03/22 12:00 11/03/22 12:11/03/22 12:00 Narrative: General: Awake, alert, oriented x3 not in acute distress HEENT: Normocephalic, atraumatic, PERRLA, normal mucosa Cardiovascular: Regular rate and rhythm , S1-S2 heard, no murmurs or gallops Lungs: No wheezing or rhonchi heard Gastrointestinal: Soft, nontender, bowel sounds heard Extremities: No edema, left thumb dressing dry and intact Neurological: no sensory or motor deficit Skin: Dry and warm, no rashes or lesions Psych: Normal mood and affect Objective Lab Results 11/03/22 05:09 11/03/22 05:09 Meds Allergies and Active Meds Allergies aloe vera Allergy (Verified 11/02/22 21:39) Unknown Reaction azithromycin Allergy (Verified 11/02/22 21:39) Rash, itching baclofen Allergy (Verified 11/02/22 21:39) Unknown Reaction ciprofloxacin Allergy (Verified 11/02/22 21:39) Unknown Reaction cyclobenzaprine [From Flexeril] Allergy (Verified 11/02/22 21:39) Hives gabapentin [From Neurontin] Allergy (Verified 11/02/22 21:39) Unknown Reaction menthol Allergy (Verified 11/02/22 21:39) Unknown Reaction naproxen Allergy (Verified 11/02/22 21:39) Rash Penicillins Allergy (Verified 11/02/22 21:39) Hives topiramate [From Topamax] Allergy (Verified 11/02/22 21:39) Hives tramadol [From Ultram] Allergy (Verified 11/02/22 21:39) Unknown Reaction vitamin E (d-alpha tocopherol) Allergy (Verified 11/02/22 21:39) Unknown Reaction cephalexin Adverse Reaction (Verified 11/02/22 21:39) Nausea morphine Adverse Reaction (Verified 11/02/22 21:39) Unknown Reaction sumatriptan [From Imitrex] Adverse Reaction (Verified 11/02/22 21:39) Gastrointestinal Upset Active Meds: Active Medications Generic Name Dose Route Start Last Admin Trade Name Freq PRN Reason Stop Dose Admin Acetaminophen 1,000 mg 11/03/22 01:07 Acetaminophen 500 Mg Tablet PO 11/03/23 01:06 Q6HR PRN Pain Scale 1 - 3 or fever Hydrocodone Bitart/Acetaminophen 1 tab 11/03/22 01:07 11/03/22 02:14 Hydrocodone/Acetaminophen 5-325 Mg Tablet PO 1 tab Q4H PRN Administration Pain Scale 4 - 7 Albuterol 2.5 mg 11/03/22 02:57 Albuterol Neb 2.5 Mg/3 Ml Vial.Neb INHALATION 11/03/23 02:56 Q4H PRN Shortness Of Breath Albuterol 2 puff 11/03/22 02:57 Albuterol Hfa 60 Puff/8 Gram Inhaler INHALATION 11/03/23 02:56 Q4H PRN Shortness Of Breath Ascorbic Acid 500 mg 11/04/22 09:00 Ascorbic Acid 500 Mg Tablet PO 11/04/23 08:59 DAILY GERRY Budesonide/Formoterol Fumarate 2 puff 11/03/22 09:00 11/03/22 08:36 Budesonide/Formoterol 160-4.5 Mcg 60 Puff/6 Gm Hfa.Aer.Ad INHALATION 11/03/23 08:59 2 puff BID GERRY Administration Carbamazepine 200 mg 11/03/22 09:00 11/03/22 10:40 Carbamazepine 200 Mg Tablet PO 11/03/23 08:59 200 mg BID GERRY Administration Carbidopa/Levodopa 1 tab 11/03/22 02:57 Carbidopa/Levodopa 25-100 Mg 1 Tab Tablet PO 11/03/23 02:56 QHS PRN Restless Leg(S) Celecoxib 200 mg 11/03/22 09:00 11/03/22 10:40 Celecoxib 200 Mg Capsule PO 11/03/23 08:59 200 mg DAILY GERRY Administration Diphenhydramine HCl 50 mg 11/03/22 02:17 11/03/22 02:34 Diphenhydramine 25 Mg Capsule PO 11/03/23 02:16 50 mg Q8H PRN Administration Itching Duloxetine HCl 90 mg 11/03/22 09:00 Duloxetine 30 Mg Capsule. PO 11/03/23 08:59 DAILY [facility] Enoxaparin Sodium 40 mg 11/03/22 10:00 11/03/22 11:24 Enoxaparin 40 Mg/0.4 Ml Syringe SUBCUT 11/03/23 09:59 Not Given DAILY@10 GERRY Furosemide 40 mg 11/03/22 08:00 11/03/22 15:08 Furosemide 40 Mg Tablet PO 11/03/23 07:59 40 mg BID@0800,1600 GERRY Administration Guaifenesin 600 mg 11/03/22 01:12 Guaifenesin 600 Mg Tab.Er.12h PO 11/03/23 01:11 BID PRN Cough Liraglutide 1.8 mg 11/03/22 09:00 11/03/22 10:41 Liraglutide 18 Mg/3 Ml Pen.Injctr SUBCUT 11/03/23 08:59 1.8 mg QAM GERRY Administration Loratadine 10 mg 11/03/22 02:57 Loratadine 10 Mg Tablet PO 11/03/23 02:56 DAILY PRN Allergic Reaction Non-Formulary Medication 75 mg 11/03/22 02:57 Rimegepant [Nurtec Odt] PO DIRECTED PRN Migraine Headache Potassium Chloride 20 meq 11/03/22 09:00 11/03/22 10:40 Potassium Chloride Er 10 Meq Capsule.Er PO 11/03/23 08:59 20 meq DAILY GERRY Administration Prochlorperazine Maleate 10 mg 11/03/22 01:07 Prochlorperazine Maleate 5 Mg Tablet PO 11/03/23 01:06 Q8HR PRN Nausea And Vomiting Sodium Chloride 0 ml 11/02/22 21:39 Sodium Chloride 0.9 % 10 Ml Syringe IV-PUSH 11/02/23 21:38 PRN PRN Flush Sodium Chloride 0 ml 11/03/22 06:00 11/03/22 15:08 Sodium Chloride 0.9 % 10 Ml Syringe IV-PUSH 11/03/23 05:59 10 ml QSHIFT GERRY Administration Trimethoprim/Sulfamethoxazole 1 tab 11/03/22 11:30 11/03/22 15:07 Sulfamethoxazole/Tmp 800-160mg 1 Tab Tablet PO 11/10/22 11:29 1 tab BID GERRY Administration A&P - Hospitalist Assessment/Plan (1) Cellulitis, wound, post-operative: (2) T2DM (type 2 diabetes mellitus): (3) Bipolar 1 disorder: (4) Asthma: Plan Patient is complaining of discomfort in her left thumb and itching but denies any actual pain. She claims surgical wound has been itching and she is trying to scratch it and realizes that she should not have done that. Orthopedic on board, feels that patient has mild erythema with no significant drainage and does not need any intervention, recommended local wound care and prophylactic antibiotics and wound healing protocol Infectious disease on board, recommended oral antibiotics and follow-up with herhand surgeon in [place] Patient is comfortable going home Reiterated the importance of keeping the wound clean. Will order Benadryl for itching Patient will be discharged home on oral antibiotics Patient cannot go to work until cleared by her hand surgeon She is being discharged today. Documented By: Walter Zhang MD 11/03/22 1523 Signed By: <Electronically signed by Walter Zhang MD> 11/03/22 4074 [facility] Work Phone: [phone] 874-980504-01-2023 Consult note Author Mimi Rodriguez [facility] November 03, 2022 10:54am Note Date/Time November 03, 2022 10:5 5am [facility] [address] [place] [address] Infect. Disease Consult Note Signed Patient: Lisa Fernando MR#: [id number] : 1975 Acct:[id number] Age/Sex: 47 / F Adm Date: 3 Loc: Room: [address] [place] [address] Type: ADM IN Attending Dr: Walter Zhang MD Copies to: MD Jorgito Spangler DO Michael S Blank, MD~ HPI Data of Consult Consult date: 11/03/22 Requesting Physician: Walter Zhang MD Primary Care Provider: Jorgito Sanchez DO Consult Narrative History of present illness: Ms. Fernando is a 47 year old female who just had hand surgery at [facility] a week ago. She apparently had of the left thumb interposition and arthroplasty. The hand is wrapped currently and Dr. Ku the orthopedic surgeon and I talked about her before I went into the room. The patient was sound asleep when I walked in the room. Despite me calling her name she still did not open her eyes. She could have been ignoring me. According to Dr. Ku's consult there is no sign of wound dehiscence. There is no significant erythema or warmth. There is a K wire site on the left thumb with some mild reactive erythema. Patient was placed on IV antibiotics on admission. I was consulted for postoperative wound infection. CC: Walter Zhang MD Review of Systems Review of Systems Other (patient sleeping; did not awaken for me) [facility] Source: Other (Patient asleep.) Vaccinated for COVID-19?: No Medical History (Updated 11/03/22 @ 10:53 by Mimi Rodriguez MD) Asthma Bipolar 1 disorder Bronchitis Chronic back pain Degenerative disc disease Depression Diabetes DJD (degenerative joint disease) Episiotomy pain repair Kidney stones Migraine Overactive bladder RLS (restless legs syndrome) Surgical History (Updated 11/03/22 @ 10:53 by Mimi Rodriguez MD) H/O arthroscopic knee surgery right H/O lithotripsy H/O oral surgery History of carpal tunnel release of both wrists History of hand surgery removed a cyst, removed a bone History of hysterectomy History of knee surgery left Hx of cholecystectomy Hx of tonsillectomy Knee joint replacement status bilateral Previous section Family History Father Diabetes Mother Hypertension Son ADHD Social History Smoking Status: Current some day smoker Tobacco Type: e-cigarettes Substance Use Type: None Substance Abuse Comment: etoh occasionally Social History Comments: son age 15 Allergies and Medications Allergies and Active Meds Allergies aloe vera Allergy (Verified 11/02/22 21:39) Unknown Reaction azithromycin Allergy (Verified 11/02/22 21:39) Rash, itching baclofen Allergy (Verified 11/02/22 21:39) Unknown Reaction ciprofloxacin Allergy (Verified 11/02/22 21:39) Unknown Reaction cyclobenzaprine [From Flexeril] Allergy (Verified 11/02/22 21:39) Hives gabapentin [From Neurontin] Allergy (Verified 11/02/22 21:39) Unknown Reaction menthol Allergy (Verified 11/02/22 21:39) Unknown Reaction naproxen Allergy (Verified 11/02/22 21:39) Rash Penicillins Allergy (Verified 11/02/22 21:39) Hives topiramate [From Topamax] Allergy (Verified 11/02/22 21:39) Hives tramadol [From Ultram] Allergy (Verified 11/02/22 21:39) Unknown Reaction vitamin E (d-alpha tocopherol) Allergy (Verified 11/02/22 21:39) Unknown Reaction cephalexin Adverse Reaction (Verified 11/02/22 21:39) Nausea morphine Adverse Reaction (Verified 11/02/22 21:39) Unknown Reaction sumatriptan [From Imitrex] Adverse Reaction (Verified 11/02/22 21:39) Gastrointestinal Upset Active Medications Acetaminophen (Acetaminophen 500 Mg Tablet) 1,000 mg PO Q6HR PRN PRN Reason: Pain Scale 1 - 3 or fever Stop: 11/03/23 01:06 Hydrocodone Bitart/Acetaminophen (Hydrocodone/Acetaminophen 5-325 Mg Tablet) 1 tab PO Q4H PRN PRN Reason: Pain Scale 4 - 7 Last Admin: 11/03/22 02:14 Dose: 1 tab Albuterol (Albuterol Neb 2.5 Mg/3 Ml Vial.Neb) 2.5 mg INHALATION Q4H PRN PRN Reason: Shortness Of Breath Stop: 11/03/23 02:56 Albuterol (Albuterol Hfa 60 Puff/8 Gram Inhaler) 2 puff INHALATION Q4H PRN PRN Reason: Shortness Of Breath Stop: 11/03/23 02:56 Ascorbic Acid (Ascorbic Acid 500 Mg Tablet) 500 mg PO DAILY [facility] Stop: 11/04/23 08:59 Budesonide/Formoterol Fumarate (Budesonide/Formoterol 160-4.5 Mcg 60 Puff/6 Gm Hfa.Aer.Ad) 2 puff INHALATION BID [facility] Stop: 11/03/23 08:59 Last Admin: 11/03/22 08:36 Dose: 2 puff Carbamazepine (Carbamazepine 200 Mg Tablet) 200 mg PO BID [facility] Stop: 11/03/23 08:59 Carbidopa/Levodopa (Carbidopa/Levodopa 25-100 Mg 1 Tab Tablet) 1 tab PO QHS PRN PRN Reason: Restless Leg(S) Stop: 11/03/23 02:56 Celecoxib (Celecoxib 200 Mg Capsule) 200 mg PO DAILY [facility] Stop: 11/03/23 08:59 Diphenhydramine HCl (Diphenhydramine 25 Mg Capsule) 50 mg PO Q8H PRN PRN Reason: Itching Stop: 11/03/23 02:16 Last Admin: 11/03/22 02:34 Dose: 50 mg Duloxetine HCl (Duloxetine 30 Mg Capsule.Dr) 90 mg PO DAILY [facility] Stop: 11/03/23 08:59 Enoxaparin Sodium (Enoxaparin 40 Mg/0.4 Ml Syringe) 40 mg SUBCUT DAILY@10 GERRY Stop: 11/03/23 09:59 Furosemide (Furosemide 40 Mg Tablet) 40 mg PO BID@0800,1600 [facility] Stop: 11/03/23 07:59 Guaifenesin (Guaifenesin 600 Mg Tab.Er.12h) 600 mg PO BID PRN PRN Reason: Cough Stop: 11/03/23 01:11 Ceftaroline Fosamil (Teflaro) 600 mg in 100 mls @ 200 mls/hr IV Q12H [facility] Liraglutide (Liraglutide 18 Mg/3 Ml Pen.Injctr) 1.8 mg SUBCUT QAM [facility] Stop: 11/03/23 08:59 Loratadine (Loratadine 10 Mg Tablet) 10 mg PO DAILY PRN PRN Reason: Allergic Reaction Stop: 11/03/23 02:56 Non-Formulary Medication (Rimegepant [Nurtec Odt]) 75 mg PO DIRECTED PRN PRN Reason: Migraine Headache Potassium Chloride (Potassium Chloride Er 10 Meq Capsule.Er) 20 meq PO DAILY [facility] Stop: 11/03/23 08:59 Prochlorperazine Maleate (Prochlorperazine Maleate 5 Mg Tablet) 10 mg PO Q8HR PRN PRN Reason: Nausea And Vomiting Stop: 11/03/23 01:06 Sodium Chloride (Sodium Chloride 0.9 % 10 Ml Syringe) 0 ml IV-PUSH PRN PRN PRN Reason: Flush Stop: 11/02/23 21:38 Sodium Chloride (Sodium Chloride 0.9 % 10 Ml Syringe) 0 ml IV-PUSH QSHIFT [facility] Stop: 11/03/23 05:59 Exam Physical Exam Vital Signs: Temp Pulse Resp BP Pulse Ox O2 Del Method 97.6 F 65 16 105/67 97 Room Air 11/03/22 08:00 11/03/22 08:00 11/03/22 08:00 11/03/22 08:00 11/03/22 08:00 11/03/22 08:00 Narrative: Patient sleeping. The nurse and I were talking in the room and I even called the patient's name. Patient would not awaken. Patient's left hand wrapped securely and has Afshan bandage over it. Results Labs 11/03/22 05:09 11/03/22 05:09 Labs: Laboratory Results - last 24 hr 11/02/22 11/02/22 11/02/22 21:50 21:50 21:50 Corrected WBC 10.2 Uncorrected WBC Count 10.2 RBC 4.55 Hgb 12.7 Hct 36.4 MCV 80.1 MCH 28.0 MCHC 35.0 RDW 13.5 Plt Count 270 MPV 7.1 Neut % (Auto) 59.3 Lymph % (Auto) 30.1 Roane % (Auto) 7.1 Eos % (Auto) 2.9 Baso % (Auto) 0.6 Nucleat RBC Rel Count 0.1 Neut # (Auto) 6.0 Lymph # (Auto) 3.1 Roane # (Auto) 0.7 Eos # (Auto) 0.3 Baso # (Auto) 0.1 Monocyte Dist Width 17.88 ESR 30 H PHA Creatinine Clear 122.84 Sodium 135 L Potassium 3.6 Chloride 102 Carbon Dioxide 24.3 Anion Gap 12.3 BUN 18 Creatinine 0.63 Est GFR (CKD-EPI) > 60.0 Glucose 148 H Lactic Acid 1.3 Calcium 9.2 Total Bilirubin 0.3 AST 17 ALT 14 Alkaline Phosphatase 78 C-Reactive Prot, Quant 0.6 H Total Protein 7.1 Albumin 4.1 Globulin 3.0 Albumin/Globulin Ratio 1.4 11/03/22 11/03/22 05:09 05:09 Corrected WBC 9.1 Uncorrected WBC Count 9.1 RBC 4.18 Hgb 11.7 L Hct 33.6 L MCV 80.3 MCH 27.9 MCHC 34.8 RDW 13.4 Plt Count 250 MPV 7.3 Neut % (Auto) 58.3 Lymph % (Auto) 30.1 Roane % (Auto) 8.3 Eos % (Auto) 2.8 Baso % (Auto) 0.5 Nucleat RBC Rel Count 0.1 Neut # (Auto) 5.3 Lymph # (Auto) 2.7 Roane # (Auto) 0.8 Eos # (Auto) 0.3 Baso # (Auto) 0.0 Monocyte Dist Width ESR PHA Creatinine Clear 145.98 Sodium 136 Potassium 4.2 Chloride 108 H Carbon Dioxide 23.3 Anion Gap 8.9 BUN 13 Creatinine 0.53 L Est GFR (CKD-EPI) > 60.0 Glucose 106 H Lactic Acid Calcium 8.6 Total Bilirubin AST ALT Alkaline Phosphatase C-Reactive Prot, Quant Total Protein Albumin Globulin Albumin/Globulin Ratio A&P - Infectious Disease (1) History of recent surgery: Status: Acute (2) Left hand pain: Status: Acute Plan Patient had an orthopedic procedure in her left hand [facility] about a week ago. She came in secondary to increased pain. White count was normal. She is afebrile. Markers of inflammation are within normal limits. She is being called a cellulitis but from my discussion with Dr. Ku in her documentation this morning no evidence of cellulitis is evident and her pin sitedoes have some mild erythema around its insertion site. Ultimately if this was a significant postoperative infection she would have to go back to her surgeons in [place] to begin with. Blood cultures were drawn though there were no systemic symptoms of infection. The wound culture obtained. Per my discussion with orthopedics with simply placed on oral antibiotics and have her follow-up with her surgeon in [place]. Documented By: Mimi Rodriguez MD 11/03/22 1045 Signed By: <Electronically signed by MD Mimi Rodriguez> 11/03/22 1058 [facility] Work Phone: [phone] 530-177704-01-2023 Consult note Author Zayda Ku [facility] November 03, 2022 9:45am Note Date/Time November 03, 2022 9:38 am [facility] [address] [place] [address] Orthopedic Consult Note Signed Patient: Lisa Fernando MR#: [id number] : 1975 Acct:[id number] Age/Sex: 47 / F Adm Date: 3 Loc: Room: [address] [place] [address] Type: ADM IN Attending Dr: Walter Zhang MD Copies to: MD Zayda Spangler MD Kaitlin E Schwerer, DO~ History of Present Illness HPI Consult date: 11/03/2022 Requesting provider: Walter Zhang MD Consult reason: other History of present illness: 47-year-old woman status post recent revision left thumb trapeziectomy LRTI procedure with supplemental pinning with concern for left thumb/ hand cellulitisand pin tract infection Patient reports that she had undergone a surgical procedure at her left thumb approximately 1 week ago in [place] with Dr. Sun Patient reports that the cast/ splint she had been placed and after surgery had been rubbing on the pin site, she had recently seen a physical therapist this prior Saturday who had removed the splint and placed her in a brace, but reports continued rubbing and irritation from the brace. Patient reports she does not have the brace here at the hospital that her took at home Patient reports recent redness near the pin site beginning on Saturday with reported drainage and worsening pain primarily at the pin site Patient does report that the redness and pain are somewhat improved after being admitted to the hospital for IV antibiotics Review of the medical H&P reveals the patient has also been reporting shortness of breath and chest pain for 2 weeks due to anxiety History nicotine vape Review of Systems Review of Systems All other systems reviewed & are negative unless noted below or in HPI PMFSH Vaccinated for COVID-19?: No Medical History (Updated 11/03/22 @ 01:35 by Rhiannon Fernando APRN) Asthma Bipolar 1 disorder Bronchitis Chronic back pain Degenerative disc disease Depression Diabetes DJD (degenerative joint disease) Episiotomy pain repair Kidney stones Migraine Overactive bladder RLS (restless legs syndrome) Surgical History H/O arthroscopic knee surgery right H/O lithotripsy H/O oral surgery History of carpal tunnel release of both wrists History of hand surgery removed a cyst, removed a bone History of hysterectomy History of knee surgery left Hx of cholecystectomy Hx of tonsillectomy Knee joint replacement status bilateral Previous section Family History Father Diabetes Mother Hypertension Son ADHD Social History Smoking Status: Current some day smoker Tobacco Type: e-cigarettes Substance Use Type: None Substance Abuse Comment: etoh occasionally Social History Comments: son age 15 Allergies & Medications Medications and Allergies Allergies aloe vera Allergy (Verified 11/02/22 21:39) Unknown Reaction azithromycin Allergy (Verified 11/02/22 21:39) Rash, itching baclofen Allergy (Verified 11/02/22 21:39) Unknown Reaction ciprofloxacin Allergy (Verified 11/02/22 21:39) Unknown Reaction cyclobenzaprine [From Flexeril] Allergy (Verified 11/02/22 21:39) Hives gabapentin [From Neurontin] Allergy (Verified 11/02/22 21:39) Unknown Reaction menthol Allergy (Verified 11/02/22 21:39) Unknown Reaction naproxen Allergy (Verified 11/02/22 21:39) Rash Penicillins Allergy (Verified 11/02/22 21:39) Hives topiramate [From Topamax] Allergy (Verified 11/02/22 21:39) Hives tramadol [From Ultram] Allergy (Verified 11/02/22 21:39) Unknown Reaction vitamin E (d-alpha tocopherol) Allergy (Verified 11/02/22 21:39) Unknown Reaction cephalexin Adverse Reaction (Verified 11/02/22 21:39) Nausea morphine Adverse Reaction (Verified 11/02/22 21:39) Unknown Reaction sumatriptan [From Imitrex] Adverse Reaction (Verified 11/02/22 21:39) Gastrointestinal Upset Home Medications carbidopa 25 mg-levodopa 100 mg tablet (Sinemet) 1 tab PO QHS PRN Restless Leg(S) 05/15/17 [History Confirmed 11/03/22] potassium chloride 10 mEq capsule,extended release 20 meq PO DAILY hypokalemia 06/26/19 [History Confirmed 11/03/22] albuterol sulfate 2.5 mg/3 mL (0.083 %) solution for nebulization 2.5 mg inhalation Q4H PRN Shortness Of Breath 09/21/19 [History Confirmed 11/03/22] albuterol sulfate 90 mcg/actuation aerosol inhaler 2 puff inhalation Q4H PRN Shortness Of Breath 09/21/19 [History Confirmed 11/03/22] furosemide 40 mg tablet 40 mg PO BID leg edema 01/21/20 [History Confirmed 11/03/22] ibuprofen 800 mg tablet 800 mg PO TID PRN Pain 03/20/21 [History Confirmed 11/03/22] liraglutide 0.6 mg/0.1 mL (18 mg/3 mL) subcutaneous pen injector (Victoza 3- Arden)1.8 mg subcut QAM 03/20/21 [History Confirmed 11/03/22] rimegepant 75 mg disintegrating tablet (Nurtec ODT) 75 mg PO DIRECTED PRN Migraine Headache 03/20/21 [History Confirmed 11/03/22] duloxetine 30 mg capsule,delayed release 90 mg PO DAILY 09/04/21 [History Confirmed 11/03/22] albuterol sulfate 90 mcg/actuation breath activated powder inhaler 1 inh inhalation Q6H PRN shortness of breath or wheezing 7 days #1 ea 06/14/22 [Rx Confirmed 11/03/22] ibuprofen 600 mg tablet 600 mg PO Q8H PRN pain #20 tabs 10/20/22 [Rx Confirmed 11/03/22] budesonide-formoterol HFA 160 mcg-4.5 mcg/actuation aerosol inhaler (Symbicort) 2 puff inhalation BID 11/03/22 [History Confirmed 11/03/22] carbamazepine 200 mg tablet 200 mg PO BID 11/03/22 [History Confirmed 11/03/22] celecoxib 200 mg capsule 200 mg PO DAILY 11/03/22 [History Confirmed 11/03/22] clobetasol 0.05 % shampoo 1 applic topical USEASDIRECTD 11/03/22 [History Confirmed 11/03/22] cyanocobalamin (vitamin B-12) 1,000 mcg tablet 1,000 mcg PO DAILY 11/03/22 [History Confirmed 11/03/22] estradiol 0.01% (0.1 mg/gram) vaginal cream 1 applic vaginal QMWF 11/03/22 [History Confirmed 11/03/22] loratadine 10 mg tablet 10 mg PO DAILY PRN Allergic Reaction 11/03/22 [History Confirmed 11/03/22] Exam Physical Exam Vital Signs: Temp Pulse Resp BP Pulse Ox O2 Del Method 97.6 F 65 16 105/67 97 Room Air 11/03/22 08:00 11/03/22 08:00 11/03/22 08:00 11/03/22 08:00 11/03/22 08:00 11/03/22 08:00 Narrative: GENERAL Awake, alert, oriented, and in no acute distress UPPER EXTREMITY Post injury/ operative incision is clean dry and intact without evidence of purulent drainage, cellulitis, or infection. Nonabsorbable sutures are in place at the left forearm and hand without evidenceof significant wound dehiscence Negative erythema or warmth on palpation at the surgical incision sites at the left forearm and hand K wire site of the left thumb metacarpal CMC area has mild surrounding reactive erythema but does not appear specifically infectious at this time Negative drainage expressed from K wire site or tract palpation Positive tenderness palpation along the K wire site and tract which may be as expected in the postsurgical period Negative warmth on palpation at the K wire site or tract left thumb and hand Negative a sending cellulitis or erythema on inspection left thumb or wrist Mild positive swelling left thumb and extremity as expected in the postoperativeperiod Negative ecchymosis left thumb and extremity as expected in the postoperative period Positive tenderness to palpation left thumb and extremity as expected in the postoperative period L Radial pulse 2+ and intact L Sensory intact to light touch at the axillary/ radial/ ulnar/ median nerve distributions L Motor intact EPL/ FPL/ Dorsal interosseous ABduction/ Palmar interosseous ADduction/ DIP/ PIP/ EIP/ EDC/ EDM/ wrist extension & flexion/ elbow extension &flexion/ shoulder forward elevation & abduction Decreased range of motion of thumb secondary to recent surgical procedure and postsurgical pain as expected LOWER EXTREMITY Negative Tenderness to palpation at the BLE B Dorsalis pedis pulse 2+ and intact B Sensory intact to light touch distally at the tibial/ sural/ saphenous/ deep peroneal/ superficial peroneal nerve distributions B Motor intact EHL/ FHL/ ankle dorsiflexion/ ankle plantarflexion/ knee extension & flexion/ quadriceps straight leg raise CARDIOVASCULAR RRR by palpation RESPIRATORY No audible wheezes Occasional cough HEENT EOMI Results Lab Results 11/03/22 05:09 11/03/22 05:09 Labs: Laboratory Results - Last 48 hrs. 11/03/22 05:09: PHA Creatinine Clear 145.98, Sodium 136, Potassium 4.2, [id number] H, Carbon Dioxide 23.3, Anion Gap 8.9, BUN 13, Creatinine 0.53 L, Est GFR (CKD- EPI) > 60.0, Glucose 106 H, Calcium 8.6 11/03/22 05:09: Corrected WBC 9.1, Uncorrected WBC Count 9.1, RBC 4.18, Hgb 11.7L, Hct 33.6 L, MCV 80.3, MCH 27.9, MCHC 34.8, RDW 13.4, Plt Count 250, MPV 7.3, Neut % (Auto) 58.3, Lymph % (Auto) 30.1, Roane % (Auto) 8.3, Eos % (Auto) 2.8, Baso % (Auto) 0.5, Nucleat RBC Rel Count 0.1, Neut # (Auto) 5.3, Lymph # (Auto) 2.7, Roane # (Auto) 0.8, Eos # (Auto) 0.3, Baso # (Auto) 0.0 11/02/22 21:50: Lactic Acid 1.3 11/02/22 21:50: PHA Creatinine Clear 122.84, Sodium 135 L, Potassium 3.6, Chloride 102, Carbon Dioxide 24.3, Anion Gap 12.3, BUN 18, Creatinine 0.63, Est GFR (CKD- EPI) > 60.0, Glucose 148 H, Calcium 9.2, Total Bilirubin 0.3, AST 17, ALT 14, Alkaline Phosphatase 78, C-Reactive Prot, Quant 0.6 H, Total Protein 7.1, Albumin 4.1, Globulin 3.0, Albumin/Globulin Ratio 1.4 11/02/22 21:50: Corrected WBC 10.2, Uncorrected WBC Count 10.2, RBC 4.55, Hgb 12.7, Hct 36.4, MCV 80.1, MCH 28.0, MCHC 35.0, RDW 13.5, Plt Count 270, MPV 7.1,Neut % (Auto) 59.3, Lymph % (Auto) 30.1, Roane % (Auto) 7.1, Eos % (Auto) 2.9, Baso % (Auto) 0.6, Nucleat RBC Rel Count 0.1, Neut # (Auto) 6.0, Lymph # (Auto) 3.1, Roane # (Auto) 0.7, Eos # (Auto) 0.3, Baso # (Auto) 0.1, Monocyte Dist Width17.88, ESR 30 H H & H 11/02/22 11/03/22 Range/Units 21:50 05:09 Hgb 12.7 11.7 L (11.8-15.4) g/dL Hct 36.4 33.6 L (34.0-46.4) % All other labs are normal. Imaging & Diagnostic Results Imaging/Diagnostics: XRAY ([facility] 11/02/2022) LEFT HAND: 2 views AP and lateral reviewed. Images demonstrate postsurgical changes with absence of trapezium at the left thumb column and a metallic K wirein place between the thumb metacarpal and index finger metacarpal base. Ulnar neutral variance at the wrist on available views. There may be some slight narrowing between the scaphoid and trapezoid though difficult to ascertain on available films given positioning. There may be some narrowing of the joint line between the radial styloid and scaphoid, though again this may be positional or postural in nature. Negative acute fracture or dislocation. Assessment/Plan (1) Cellulitis, wound, post-operative: Plan: 47-year-old woman approximately 1 to 2 weeks status post reported revision left thumb trapeziectomy LRTI procedure with supplemental K wire pinning, and likely superficial K wire site/ tract infection -Discussion held with patient regarding diagnosis and treatment options. At this time, the patient likely has a very mild and superficial infection around the K wire site, though there does not appear to be a particularly deep pin siteor tract infection as there is no significant warmth, loosening of the pin, or purulent drainage. There does not appear to be any deep space infection or life or limb threateninginfection which would require immediate surgical intervention at this time. Consequently, I would recommend local wound care with pin site care and potential soap soaking protocol with Hibiclens chlorhexidine gluconate soap 2-3 times daily to the pin site and hand. In addition I would recommend dressing changes as well as mobilization with splint. I did offer to make the patient a splint for immobilization but the patient has declined at this time. Again, as there is no life or limb threatening infection which would require immediate surgical intervention at our institution, I would recommend the patient follow-up with her orthopedic surgeon at [place] for further direction ofcare, and potential removal of the K wire -Medical comorbidities per the medical team -Pain control: Patient has a history of pain management and may be some difficulty in pain control given her postoperative pain -Vitamin C 500 mg daily for skin and wound healing -[facility] orthopedics will follow peripherally, please call with questions or if reevaluation needed. Again, given the superficial nature of the the K wire site infection, would recommend the patient follow-up with [facility] and her original orthopedic surgeon for further direction of care as she is in the immediate postoperative period Code(s): T81.49XA - Infection following a procedure, other surgical site, initial encounter (2) T2DM (type 2 diabetes mellitus): Code(s): E11.9 - Type 2 diabetes mellitus without complications (3) Bipolar 1 disorder: Code(s): F31.9 - Bipolar disorder, unspecified (4) Asthma: Code(s): J45.909 - Unspecified asthma, uncomplicated Billing Billing Codes (IF APPLICABLE) List of Applicable Codes for [place] Documented By: Zayda Ku MD 11/03/22 093 0 Signed By: <Electronically signed by Zayda Ku MD> 11/03/22 0945 [facility] Work Phone: [phone] 532-705204-01-2023 History and physical note Author Sam Hodges [facility] November 03, 2022 3:34am Note Date/Time November 03, 2022 1:29 am [facility] [address] [place] [address] Hospitalist H&P Signed Patient: Lisa Fernando MR#: [id number] : 1975 Acct:[id number] Age/Sex: 47 / F Adm Date: 3 Loc: Room: [address] [place] [address] Type: ADM IN Attending Dr: Sam Hodges MD Copies to: MD Jorgito Mae DO Paula G Smith, HOUSE FATHER~ HPI DATE OF EXAMINATION: 11/03/22 CHIEF COMPLAINT: surgical site infection HISTORY OF PRESENT ILLNESS: Ms. Fernando is a 47-year-old female with a PMH of T2DM, bipolar disorder, chronic back pain, asthma, recent left thumb interposition and arthroplasty presents to the emergency room today for surgical site infection. Patient seen and evaluated in the ER, resting on the cart quietly. She states that she noticed some redness to her surgical pin site Saturday, noticed drainage from the site today and thought she should be checked out. She does have 2 incision sites with sutures intact, well approximated, no redness noted from the sites. She has a pin to the left thumb, site is reddened, no drainage noted at this time. Patient does touch her hand and surgical sites multiple times during the exam. Instructed patient not to touch the sites. She reports that she was at [facility] because her pain was rubbing on her old soft cast so they took the soft cast off and put her in a brace. She denies fever, chills, statesshe is always cold at home. She does report that she has had shortness of breath and chest pain for 2 weeks because she feels stressed out that worsens when she is up moving around, no respiratory distress noted at this time. She does report vaping sometimes, not daily because it makes her cough. Nondrinker.States this is the second time she has had surgery on this hand. X-ray of the left hand with no signs of osteomyelitis. CBC is unremarkable, ESR30. CMP with sodium 135, glucose 148. CRP 0.6. Blood cultures were drawn and these are pending. She was medicated with 1 and half liter bolus saline, vancomycin, cefepime, Dilaudid, and Zofran. [facility] care of the hospitalist team for further evaluation and treatment. Review of Systems Review of Systems Review of systems: A 10 point review of systems was obtained, negative unless noted in the HPI or below. PMFSH Vaccinated for COVID-19?: Yes Medical History (Updated 11/03/22 @ 01:35 by Rhiannon Fernando, TODD) Asthma Bipolar 1 disorder Bronchitis Chronic back pain Degenerative disc disease Depression Diabetes DJD (degenerative joint disease) Episiotomy pain repair Kidney stones Migraine Overactive bladder RLS (restless legs syndrome) Surgical History H/O arthroscopic knee surgery right H/O lithotripsy H/O oral surgery History of carpal tunnel release of both wrists History of hand surgery removed a cyst, removed a bone History of hysterectomy History of knee surgery left Hx of cholecystectomy Hx of tonsillectomy Knee joint replacement status bilateral Previous section Family History Father Diabetes Mother Hypertension Son ADHD Social History Smoking Status: Current some day smoker Tobacco Type: e-cigarettes Substance Use Type: None Substance Abuse Comment: etoh occasionally Social History Comments: son age 15 Meds Medications and Allergies Allergies aloe vera Allergy (Verified 11/02/22 21:39) Unknown Reaction azithromycin Allergy (Verified 11/02/22 21:39) Rash, itching baclofen Allergy (Verified 11/02/22 21:39) Unknown Reaction ciprofloxacin Allergy (Verified 11/02/22 21:39) Unknown Reaction cyclobenzaprine [From Flexeril] Allergy (Verified 11/02/22 21:39) Hives gabapentin [From Neurontin] Allergy (Verified 11/02/22 21:39) Unknown Reaction menthol Allergy (Verified 11/02/22 21:39) Unknown Reaction naproxen Allergy (Verified 11/02/22 21:39) Rash Penicillins Allergy (Verified 11/02/22 21:39) Hives topiramate [From Topamax] Allergy (Verified 11/02/22 21:39) Hives tramadol [From Ultram] Allergy (Verified 11/02/22 21:39) Unknown Reaction vitamin E (d-alpha tocopherol) Allergy (Verified 11/02/22 21:39) Unknown Reaction cephalexin Adverse Reaction (Verified 11/02/22 21:39) Nausea morphine Adverse Reaction (Verified 11/02/22 21:39) Unknown Reaction sumatriptan [From Imitrex] Adverse Reaction (Verified 11/02/22 21:39) Gastrointestinal Upset Home Medications carbidopa 25 mg-levodopa 100 mg tablet (Sinemet) 1 tab PO QHS PRN Restless Leg(S) 05/15/17 [History Confirmed 11/03/22] potassium chloride 10 mEq capsule,extended release 20 meq PO DAILY hypokalemia 06/26/19 [History Confirmed 11/03/22] albuterol sulfate 2.5 mg/3 mL (0.083 %) solution for nebulization 2.5 mg inhalation Q4H PRN Shortness Of Breath 09/21/19 [History Confirmed 11/03/22] albuterol sulfate 90 mcg/actuation aerosol inhaler 2 puff inhalation Q4H PRN Shortness Of Breath 09/21/19 [History Confirmed 11/03/22] furosemide 40 mg tablet 40 mg PO BID leg edema 01/21/20 [History Confirmed 11/03/22] ibuprofen 800 mg tablet 800 mg PO TID PRN Pain 03/20/21 [History Confirmed 11/03/22] liraglutide 0.6 mg/0.1 mL (18 mg/3 mL) subcutaneous pen injector (Victoza 3- Arden)1.8 mg subcut QAM 03/20/21 [History Confirmed 11/03/22] rimegepant 75 mg disintegrating tablet (Nurtec ODT) 75 mg PO DIRECTED PRN Migraine Headache 03/20/21 [History Confirmed 11/03/22] duloxetine 30 mg capsule,delayed release 90 mg PO DAILY 09/04/21 [History Confirmed 11/03/22] albuterol sulfate 90 mcg/actuation breath activated powder inhaler 1 inh inhalation Q6H PRN shortness of breath or wheezing 7 days #1 ea 06/14/22 [Rx Confirmed 11/03/22] ibuprofen 600 mg tablet 600 mg PO Q8H PRN pain #20 tabs 10/20/22 [Rx Confirmed 11/03/22] budesonide-formoterol HFA 160 mcg-4.5 mcg/actuation aerosol inhaler (Symbicort) 2 puff inhalation BID 11/03/22 [History Confirmed 11/03/22] carbamazepine 200 mg tablet 200 mg PO BID 11/03/22 [History Confirmed 11/03/22] celecoxib 200 mg capsule 200 mg PO DAILY 11/03/22 [History Confirmed 11/03/22] clobetasol 0.05 % shampoo 1 applic topical USEASDIRECTD 11/03/22 [History Confirmed 11/03/22] cyanocobalamin (vitamin B-12) 1,000 mcg tablet 1,000 mcg PO DAILY 11/03/22 [History Confirmed 11/03/22] estradiol 0.01% (0.1 mg/gram) vaginal cream 1 applic vaginal QMWF 11/03/22 [History Confirmed 11/03/22] loratadine 10 mg tablet 10 mg PO DAILY PRN Allergic Reaction 11/03/22 [History Confirmed 11/03/22] Exam Physical Exam Vital Signs: Temp Pulse Resp BP Pulse Ox O2 Del Method 98.7 F 70 20 124/51 L 97 Room Air 11/02/22 23:52 11/02/22 23:52 11/02/22 23:52 11/02/22 23:52 11/02/22 23:52 11/02/22 23:52 Narrative: CONST- Appears well -developed and well nourished. HEAD - Normocephalic and atraumatic EENT-Sclera nonicteric, conjunctive are non-erythemic, moist oral mucosa, pharynx clear, poor dentition NECK-Supple, no cervical lymphadenopathy CARDIAC-normal rate, regular rhythm, S1 & S2. PULM-diminished without wheeze or rhonchi, RA, no accessory muscle use or cough noted ABD - Soft. Bowel sounds are normal. No distention. No tenderness EXTREM- generalized edema BLE calves, nontender, Sutures dry and intact to L hand and forearm, skin well approximated, pin site to L hand reddened, swelling noted to L hand and forearm SKIN- W/D good turgor MS- MAEX3 spontaneously with equal with equal strength, weakness and inability to use Left hand/arm due to surgery NEURO- A&Ox3 speech clear and tongue midline, equal facial symmetry, no focal motor deficits PSYCH-Mood, affect, and behavior appropriate Results Lab Results Labs: Laboratory Last Values Corrected WBC 10.2 X10E3/uL (3.8-11.6) 11/02/22 21:50 Uncorrected WBC Count 10.2 x10E3/uL (3.8-11.6) 11/02/22 21:50 RBC 4.55 X10E6/uL (3.60-5.00) 11/02/22 21:50 Hgb 12.7 g/dL (11.8-15.4) 11/02/22 21:50 Hct 36.4 % (34.0-46.4) 11/02/22 21:50 MCV 80.1 fl (80-100) 11/02/22 21:50 MCH 28.0 pg (24.7-34.3) 11/02/22 21:50 MCHC 35.0 g/dL (32.0-35.0) 11/02/22 21:50 RDW 13.5 % (11.9-15.3) 11/02/22 21:50 Plt Count 270 x10E3/uL (150-450) 11/02/22 21:50 MPV 7.1 fl (6.3-10.7) 11/02/22 21:50 Neut % (Auto) 59.3 % (.) 11/02/22 21:50 Lymph % (Auto) 30.1 % (.) 11/02/22 21:50 Roane % (Auto) 7.1 % (.) 11/02/22 21:50 Eos % (Auto) 2.9 % (.) 11/02/22 21:50 Baso % (Auto) 0.6 % (.) 11/02/22 21:50 Nucleat RBC Rel Count 0.1 /100 WBC (0-0.5) 11/02/22 21:50 Neut # (Auto) 6.0 x10E3/uL (1.8-7.7) 11/02/22 21:50 Lymph # (Auto) 3.1 x10E3/uL (1.00-4.8) 11/02/22 21:50 Roane # (Auto) 0.7 x10E3/uL (0.0-0.8) 11/02/22 21:50 Eos # (Auto) 0.3 x10E3/uL (0.0-0.45) 11/02/22 21:50 Baso # (Auto) 0.1 x10E3/uL (0.0-0.2) 11/02/22 21:50 Monocyte Dist Width 17.88 % (0.00-20.00) 11/02/22 21:50 ESR 30 mm/hr (0-19) H 11/02/22 21:50 PHA Creatinine Clear 122.84 11/02/22 21:50 Sodium 135 mmol/L (136-145) L 11/02/22 21:50 Potassium 3.6 mmol/L (3.5-5.1) 11/02/22 21:50 Chloride 102 mmol/L (98-107) 11/02/22 21:50 Carbon Dioxide 24.3 mmol/L (21.0-31.0) 11/02/22 21:50 Anion Gap 12.3 mEq/L (6.0-15.0) 11/02/22 21:50 BUN 18 mg/dL (7-25) 11/02/22 21:50 Creatinine 0.63 mg/dL (0.60-1.20) 11/02/22 21:50 Est GFR (CKD-EPI) > 60.0 mL/Min 11/02/22 21:50 Glucose 148 mg/dL (70-100) H 11/02/22 21:50 Lactic Acid 1.3 mmol/L (0.5-2.2) 11/02/22 21:50 Calcium 9.2 mg/dL (8.6-10.3) 11/02/22 21:50 Total Bilirubin 0.3 mg/dl (0.3-1.0) 11/02/22 21:50 AST 17 U/L (13-39) 11/02/22 21:50 ALT 14 U/L (7-52) 11/02/22 21:50 Alkaline Phosphatase 78 U/L (34-104) 11/02/22 21:50 C-Reactive Prot, Quant 0.6 mg/dL (0.0-0.5) H 11/02/22 21:50 Total Protein 7.1 gm/dL (6.4-8.9) 11/02/22 21:50 Albumin 4.1 gm/dL (3.5-5.7) 11/02/22 21:50 Globulin 3.0 gm/dL 11/02/22 21:50 Albumin/Globulin Ratio 1.4 11/02/22 21:50 A&P - Hospitalist Assessment/Plan (1) Cellulitis, wound, post-operative: (2) T2DM (type 2 diabetes mellitus): (3) Bipolar 1 disorder: (4) Asthma: Plan Cellulitis to left hand surgical site ? Blood cultures pending ? Hibiclens to site 3 times a day, keep site clean and dry ? Start Teflaro?pharmacy to dose ? Patient should wear left wrist brace and keep site covered ? Consult ID ? Hydrocodone as needed for pain Chronic conditions T2DM?fingersticks ACHS, resume home meds once confirmed Bipolar 1 disorder and depression?resume home meds once confirmed Asthma?resume home meds?inhalers once confirmed DVT PPx?SCDs, enoxaparin CODE STATUS?full code as discussed with patient Diet order?1800 ADA Attending attestation: Patient was personally seen by me on the day of encounter. I reviewed her history and performed shi elements of exam and formulated the plan of care and confirmed the nurse practitioners note above. Plan of care reflects my direct input. Patient presents with left hand infection with hardware in place and surrounding cellulitis and purulent drainage. Transfer refused from [facility] where the procedure was performed. Will initiate patient on IV Teflaro, consult ID for their assessment. Hibiclens washes 3 times daily as recommended by our orthopedics and surgeon on-call from [facility]. Given the severity of the hand cellulitis, and possible deeper infection, will place patient as inpatient status as she will likely require more than 2 midnights for improvement and stabilization of hand infection and to determine a plan for antibiotic therapy and surgery follow-up on discharge. Documented By: Rhiannon Fernando APRN 11/03/22 0117 Signed By: <Electronically signed by TODD Fernando> 11/03/22 0316 <Electronically signed by Sam Hodges MD> 11/03/22 0334 [facility] Work Phone: [phone] NoteOccupational Therapy Orthosis/Splint Evaluation Patient Name: Lisa Fernando Today's Date: 10/31/2022 Treatment time in: 4:55 Treatment time out: 5:30 Cumulative therapy: 35 minutes Diagnosis: Bony impingement between the base of the thumb and index metacarpals of the left hand s/p soft tissue interposition arthroplasty left thumb index metacarpal bases Onset date/date of surgery: 10/25/2022 Referring practitioner: Dr. Smita MD/[facility] ortho Date of last MD visit: First post-op visit scheduled 11/06/2022 Services requested: Custom orthosis fabrication, replace post-op half cast and dressing SUBJECTIVE Pt comes as a walk-in with her , states she had surgery on her thumb last week and is having trouble with the post-op half cast pressing on the pin in her thumb and causing pain. She called MD clinic who recommended she come here for a new splint. 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 Ed pt re: technique for donning/doffing, wearing schedule (all times until specified by MD), and care of orthosis. By end of session, pt demo I with donning/doffing, and had all questions/concerns re: orthosis addressed. Pt provided with occupational therapy contact number and instructed to call/return to clinic for adjustments if necessary. ASSESSMENT/PLAN Summary/Analysis: Pt was custom fitted with a protective orthosis, providing adequate space/coverage around the radial pin in her thumb. She reports much improved comfort and feasibility of wearing. She has met all goals for today's visit and does not demonstrate need for a full therapy program at this time. She previously went to therapy back home (an hour away) and may return there if she needs therapy after this operation. Prognosis to achieve goals: good Evaluation: 10 minutes Splint: 25 minutes Treatment plan with rationale: Splinting to provide support and protection to the joint Occupational Therapy Goals: Pt will have comprehensive orthosis evaluation completed. MET Pt will have custom L forearm based thumb spica orthosis fabricated, having all questions/concerns addressed prior to leaving clinic. MET Pt will demo I with donning/doffing custom orthosis prior to leaving clinic. MET Recommendations: Custom orthosis fabrication/education has been completed, no indicated need for further OT intervention. Pt is now discharged from OT services. Reason for plan status: Patient achieved [facility] NotePatient: Lisa Fernando Procedure Summary Date: 10/25/22 Room / Location: [address] [place] OR Anesthesia Start: 935 Anesthesia Stop: 110 Procedure: Thumb/index interposition arthroplasty hand (Left: Hand) Diagnosis: Arthritis of carpometacarpal (CMC) joint of left thumb (Arthritis of carpometacarpal (CMC) joint of left thumb [M18.12]) Surgeons: Isai Sun MD Responsible Provider: Eric Joseph MD Anesthesia Type: regional ASA Status: 2 Anesthesia Type: regional Vitals Value Taken Time BP 120/53 10/25/22 1145 Temp 36.3 ???C (97.3 ???F) 10/25/22 1100 Pulse 56 10/25/22 1145 Resp 14 10/25/22 1145 SpO2 100 % 10/25/22 1145 Anesthesia Post Evaluation Patient location during evaluation: PACU Patient participation: complete - patient participated Level of consciousness: awake and alert Pain score: 0 Pain management: adequate Airway patency: patent Cardiovascular status: acceptable Respiratory status: acceptable Hydration status: acceptable Comments: Pt acceptable for discharge from PACU No notable events documented.[facility]03-23-2023 Note Patient: Lisa Fernando Procedure Summary Date: 10/25/22 Room / Location: [address] [place] OR Anesthesia Start: 935 Anesthesia Stop: Procedure: Thumb/index interposition arthroplasty hand (Left: Hand) Diagnosis: Arthritis of carpometacarpal (CMC) joint of left thumb (Arthritis of carpometacarpal (CMC) joint of left thumb [M18.12]) Surgeons: Isai Sun MD Responsible Provider: Eric Joseph MD Anesthesia Type: regional ASA Status: 2 Anesthesia Post [facility] Oxygen Flow (L/min): 8 Patient Monitor: direct observation Transport: uneventful Patient condition is: stableUnGeorgetown [facility]03-23-2023 Note Patient: Lisa Fernando Procedure Information Date/Time: 10/25/22944 Procedure: Thumb/index interposition arthroplasty hand (Left: Hand) - C-ARM Location: [address] OR Surgeons: Isai Sun MD Relevant Problems Other (+) Arthritis of carpometacarpal (CMC) joint of left thumb Clinical information reviewed: Tobacco Allergies Meds Med Hx Surg Hx OB Status Fam Hx Soc Hx Physical Exam Airway Mallampati: II TM distance: >3 FB Neck ROM: full Cardiovascular Rhythm: regular Rate: normal Dental Pulmonary - normal exam Abdominal - normal exam Anesthesia Plan ASA 2 regional The patient is not a current smoker. Patient was not previously instructed to abstain from smoking on day of procedure. Patient did not smoke on day of procedure. intravenous induction Anesthetic plan and risks discussed with patient. Use of blood products discussed with patient who consented to blood products. Plan discussed with CAA. Additional Equipment [facility]sUnGe[facility]03-[facility]-2023 Note Peripheral Block Patient location during procedure: pre-op Start time: 10/25/2022 9:05 AM End time: 10/25/2022 9:20 AM Reason for block: primary anesthetic and at surgeon's request Staffing Performed: resident/SUPERVISOR [employer]/CAA Anesthesiologist: Eric Joseph MD Resident/SUPERVISOR [employer]: No Foster MD Preanesthetic Checklist Completed: patient identified, IV checked, site marked, risks and benefits discussed, surgical consent, monitors and equipment checked, pre-op evaluation and timeout performed Peripheral Block Patient position: supine Prep: ChloraPrep Patient monitoring: heart rate and continuous pulse ox Block type: axillary Laterality: left Injection technique: single-shot Guidance: ultrasound guided Needle Needle type: short-bevel Needle gauge: 22 G Needle length: 2 in Needle localization: ultrasound guidance Medications Administered Bupivacaine HCl (Marcaine) 0.5 % (5 mg/mL) injection, 150 mg midazolam (VERSED) IV, 2 mg fentaNYL (SUBLIMAZE) IV, 50 mcg Assessment Injection assessment: negative aspiration for heme, no paresthesia on injection, incremental injection and local visualized surrounding nerve on ultrasound Paresthesia pain: none Heart rate change: no Slow fractionated injection: [facility]03-15-2023 Evaluation note* Encounter Date Diagnosis Assessment Notes Treatment Notes Treatment Clinical Notes Oct, Osteoarthritis of lumbosacral spine without myelopathy (ICD-10 - M47.817) We discussed treatment options for the patient's persistent low back pain. She shows notable pain consistent with degenerative changes of the lumbar spine. We discussed the possible benefit of treatment of the facet region for axial back pain. Patient is a reasonable candidate for diagnostic bilateral lumbar facet medial branch nerve blocks which we will proceed with. Risks and benefits of procedure explained to patient; patient verbalizes understanding. It was further explained should this provide significant short term relief we will proceed with a repeat block and subsequent radiofrequency ablation. Anatomy of spine discussed in detail with patient in regard to patients condition. Oct, Other low back pain (ICD-10 - M54.59) Oct, Other chronic pain (ICD-10 - G89.29) Oct, Other Above note writ ten by Briana Rosales LPN, Outbound Sales Consultant. Edited and approved by Dr. Kenny Villarreal MD. [email or web address] Other 03-14-2023 Evaluation note* Encounter Date Diagnosis Assessment Notes Treatment Notes Treatment Clinical Notes Oct, Type 2 diabetes mellitus without complications (ICD-10 - E11.9) Oct, Obesity (BMI 35.0-39.9 without comorbidity) (ICD-10 - E66.9) Oct, Vitamin B12 deficiency (ICD-10 - E53.8) Oct, Mixed hyperlipidemia (ICD-10 - E78.2) Oct, Knee osteoarthritis (ICD-10 - M17.9) 14 Oct, 2022 Low back pain (ICD-1 0 - M54.5) Oct, Metabolic syndrome (ICD-10 - E88.81) [facility] Other 02-01-2023 Evaluation note* Encounter Date Diagnosis Assessment Notes Treatment Notes Treatment Clinical Notes Sep, Osteoarthritis of lumbosacral spine without myelopathy (ICD-10 - M47.817) Patients primary complaint today is low lumbar pain, likely consistent with degenerative changes. Updated xrays of her lumbar spine were updated today in office. Patient was encouraged to continue with physical therapy and Celebrex. Should she not benefit from conservative treatment we can consider treatment of the facet region of the lumbar spine for the degenerative nature of her pain symptoms. We will follow up with the patient in six weeks at the completion of physical therapy, sooner if needed. Anatomy of spine discussed in detail with patient in regards to patients condition. Sep, Other low back pain (ICD-10 - M54.59) Sep, Other chronic pain (ICD-10 - G89.29) Sep, Other Above note written by Fab Fernando MA, Outbound Sales Consultant. Edited and approved by Dr. Kenny Villarreal MD. Medical decision making shows a new problem to me with further workup planned or suggested with the potential for extensive treatment options that were considered with the most applicable given this patient's situation as noted above. Treatment options considered include a combination of physical therapy approaches, pharmacologic management, and interventional procedures. Those most applicable to the patient were discussed at this time. Risk of complications and/or morbidity and mortality is high given that acute and chronic pain poses a threat to life and bodily function if undertreated, poorly treated or with failure to maintain adequate treatment and timely followup. Given the serious and fluctuating nature of pain with extensive consideration for whenever pain changes, there always remains the possibility of prolonged functional impairment requiring constant patient reassessment and high-level medical decision making. The amount and complexity of data reviewed is high given that patient labs, radiology reports, and other test were obtained, reviewed and summarized as applicable from the physician portal and/or outside medical records. Pertinent positive and negative findings were considered in medical decision-making. [email or web address] Other 01-24-2023 Instructions* Patient Instructions* Nasra Lo PA-C - 08/28/2022 3:55 PM EST PLAN: -Eustachian Tube Dysfunction Treatment Instructions for the next 8 weeks: Nasal saline irrigation twice daily am and pm Followed by Flonase (one spray, twice daily) Claritin once daily Follow up to see how you are doing -Recommend following up with your architectural draftsperson about your cough documented in this encounterCleveland [id number] History of Present illness Narrative* Nasra Lo PA-C - 08/28/2022 3:41 PM EST Images from the original note were not included. History of Present Illness Ms. LISA FERNANDO is a 47 year old female presenting to the clinic for a follow up of her bilateral otalgia and hearing loss. The following information above was copied, reviewed and is still up todate. Last seen 05/15/2022. Since last seen, Reports that she has been told there is fluid behind the right ear. She was last seen 4 days ago. They did not do anything for her. She has a small amount of pain in the ear, it is a sharp, ear ache type pain. She took one dose of allergy medication about 2 days ago, but that is all. Has been to the dentist and they are going to pull some teeth for her, bilaterally. They are going to work on her jaw after the teeth are pulled. Hearing Loss: Stable, no changes since last audiogram. Tinnitus: Right ear only, ongoing for the last week. Dizziness/Imbalance: This has been ongoing since a week or 2 ago. She has a room spinning sensationthat will last a minute or 2 at a time. She is not taking any medication for this. Otorrhea: denies Ear Pressure/Fullness: denies Facial Numbness, Weakness or Tingling: denies ALLERGIES Allergen Reactions Aloe Vera Other: See Comments Baclofen Other: See Comments, Swelling Cephalexin GI Upset, Vomiting Ciprofloxacin Other: See Comments Cyclobenzaprine Hives, Unknown Gabapentin Hives, Unknown, Other: See Comments Menthol Other: See Comments Metformin Hives Nsaids (Non-Steroid* Hives, Rash, Other: See Comments Azithromycin Itching, Rash Current Outpatient Medications on File Prior to Visit Medication Sig carBAMazepine (TEGRETOL) 200 mg tablet Take 200 mg by mouth twice daily. potassium chloride SR (MICRO-K) 10 mEq CR capsule 1 capsule DAILY (route: oral) DULoxetine (CYMBALTA) 60 mg capsule Take 60 mg by mouth. celecoxib (CELEBREX) 200 mg capsule 1 capsule DAILY (route: oral) furosemide (LASIX) 40 mg tablet furosemide 40 mg tablet TAKE 1 TABLET BY MOUTH ONCE DAILY FOR 30 DAYS liraglutide (VICTOZA) 0.6 mg/0.1 mL (18 mg/3 mL) Victoza 3-Arden 0.6 mg/0.1 mL (18 mg/3 mL) subcutaneous pen injector potassium chloride SR (MICRO-K) 10 mEq CR capsule potassium chloride ER 10 mEq capsule,extended release carbidopa-levodopa (SINEMET 10-100) 10-100 mg per tablet 1 tablet daily at bedtime. doxycycline hyclate (VIBRAMYCIN) 100 mg capsule ibuprofen (MOTRIN) 800 mg tablet (Patient not taking: Reported on 04/04/2022) metFORMIN (GLUCOPHAGE) 500 mg tablet metformin 500 mg tablet TAKE 1 TABLET BY MOUTH TWICE DAILY albuterol HFA (PROVENTIL HFA, VENTOLIN HFA) 90 mcg/actuation inhaler Inhale 2 Puffs as instructed. (Patient not taking: Reported on 04/04/2022) meloxicam (MOBIC) 15 mg tablet Take 1 tablet by mouth once daily. PROAIR HFA 90 mcg/actuation inhaler as needed. (Patient not taking: Reported on 04/04/2022) LATUDA 20 mg tablet 1 tablet once daily. OXcarbazepine (TRILEPTAL) 150 mg tablet 1 tablet twice daily. No current facility-administered medications on file prior to visit. Objective: There were no vitals taken for this visit. Appearance: Non-syndromic, cooperative and calm Communication: Voice has adequate volume; there is no stridor Head/Face: head and facial contours are symmetric Facial nerve 1/6 bilateral Skin: no skin lesions or scarring on face Ears: AD External auditory canal is patent. TM is clear, intact, but retracted. External auditory canal is patent. TM is clear and intact. Rinne Calderon AD 256 512 + + 1024 Nose: external exam with straight profile Oral Cavity: Poor dentition. Oropharynx: Uvula hangs midline; mucosa is pink and moist Neck: no LAD Lymphatic: No lymphadenopathy or masses Neuro/Psych.: Alert and Oriented x 3 Cranial nerves intact Data Review: Assessment: (H92.03) Otalgia, bilateral (primary encounter diagnosis) (H90.3) Sensorineural hearing loss (SNHL) of both ears (H93.13) Tinnitus of both ears (M26.621) Arthralgia of right temporomandibular joint Plan: Recommended treatment for eustachian tube dysfunction, including saline, Flonase and Claritin. As for cough, patient to see her architectural draftsperson. Follow up in about 8 weeks to monitor symptoms. Orders: Office Visit on 08/28/22 carBAMazepine (TEGRETOL) 200 mg tablet potassium chloride SR (MICRO-K) 10 mEq CR capsule loratadine (CLARITIN) 10 mg tablet sodium chloride (SALINE NASAL) 0.65 % nasal spray fluticasone (FLONASE ALLERGY RELIEF) 50 mcg/actuation nasal spray Procedures: None. Nasra Lo PA-C September 27, 2022 7:07 PM Medical Decision Making: Problems: Moderate: 1+ chronic illnesses with change Risk: Low: Low risk from testing/treatment Medical Decision Making Level: 3 - Low documented in this encounterK[facility]23 Nurse Note* Alisson Souza Ma - 08/28/2022 3:33 PM EST Tobacco Use: Never Was smoking cessation packet given? N/A - Patient is a non-smoker or quit >1 year ago. Was a referral initiated?N/A Patient is a non-smoker documented in this encounterKet[facility]01-24-2023 Evaluation note* Encounter Date Diagnosis Assessment Notes Treatment Notes Treatment Clinical Notes Aug, Hypokalemia (ICD-10 - E87.6) [facility] Other 01-23-2023 Miscellaneous Notes* Telephone Encounter - Rose Connelly RN - 08/27/2022 10:30 AM EST Spoke directly with patient to clarify need for appointment in [facility]. She atated she is coming in for fluid behind the eardrums, noted by a physician in another healthcare system. She stated that she has also seen a dentist as suggested by RYLEY Tesfaye but is unable to access that provider's notes through their on-line system. She will discuss the dental plan with Nasra at the appointment on 08/28/2022. Rose Connelly, RN documented in this encounterK[facility]01-20-2023 Evaluation note* Encounter Date Diagnosis Assessment Notes Treatment Notes Treatment Clinical Notes Aug, Bad odor of urine (ICD-10 - R82.90) UA good. Aug, Immunity status testing (ICD-10 - Z01.84) gave pneumovax 23 and will recheck labs in 4 weeks. if not responding appropriate will get her set up with immunology. Chronic coughing worse after RSV and COVID but should have recovered by now. Will see if we can get her appt with Reyna moved up. Aug, Right ear pain (ICD-10 - H92.01) she has follow up next week with ENT [email or web address] Other 01-18-2023 Evaluation note* Encounter Date Diagnosis Assessment Notes Treatment Notes Treatment Clinical Notes Aug, Type 2 diabetes mellitus without complications (ICD-10 - E11.9) Aug, Obesity (BMI 35.0-39.9 without comorbidity) (ICD-10 - E66.9) Aug, Vitamin B12 deficiency (ICD-10 - E53.8) Aug, Mixed hyperlipidemia (ICD-10 - E78.2) Aug, Knee osteoarthritis (ICD-10 - M17.9) Aug, Low back pain (ICD-1 0 - M54.5) Aug, Metabolic syndrome (ICD-10 - E88.81) [facility] Other 01-13-2023 Evaluation note* Encounter Date Diagnosis Assessment Notes Treatment Notes Treatment Clinical Notes Aug, Immune system defect (ICD-10 - D84.9) [facility] Other 01-11-2023 Evaluation note* Encounter Date Diagnosis Assessment Notes Treatment Notes Treatment Clinical Notes Aug, Type 2 diabetes mellitus without complications (ICD-10 - E11.9) [email or web address] Other 01-03-2023 Evaluation note* Encounter Date Diagnosis Assessment Notes Treatment Notes Treatment Clinical Notes Aug, Acute recurrent sinusitis, unspecified location (ICD-10 - J01.91) has been on multiple rounds of antibiotics within the last 1-2 months. Had COVID 2 weeks ago, lingering sinus congestion. Will do one more round of antiboitcs. Normal PFTS in 2019. Encouraged her to do probiotics. We will do immune testing as she has been sick frequently. Aug, Immunity status testing (ICD-10 - Z01.84) see above [email or web address] Other 12-19-2022 Evaluation note* Encounter Date Diagnosis Assessment Notes Treatment Notes Treatment Clinical Notes Jul, Acute cough (ICD-10 - R05.1) [email or web address] Other 12-05-2022 Evaluation note* Encounter Date Diagnosis Assessment Notes Treatment Notes Treatment Clinical Notes Jul, Sinus congestion (ICD-10 - R09.81) [facility] Other 12-05-2022 Evaluation note* Encounter Date Diagnosis Assessment Notes Treatment Notes Treatment Clinical Notes Jul, Type 2 diabetes mellitus without complications (ICD-10 - E11.9) [email or web address] Other 12-01-2022 Evaluation note* Encounter Date Diagnosis Assessment Notes Treatment Notes Treatment Clinical Notes Jul, Subacute cough (ICD-10 - R05.2) will continue cough medication and flonase. she has dx of RSV a few weeks ago. has been on doxy and zpack without improvement. she nows that mid next week if not improved she will call and will do sinus CT at that time. [email or web address] Other 11-21-2022 Evaluation note* Encounter Date Diagnosis Assessment Notes Treatment Notes Treatment Clinical Notes Jun, Cough, unspecified type (ICD-10 - R05.9) [email or web address] Other 11-14-2022 Evaluation note* Encounter Date Diagnosis Assessment Notes Treatment Notes Treatment Clinical Notes Jun, Acute cough (ICD-10 - R05.1) was treated with doxy. Diagnosed with RSV in the last week. worsening and now with fever 2 days ago. will add prednisone for the wheezing and cover for pneumonia with zpack on top of the doxy. she is in agreement. will call if not improving at the end of the week. Jun, Immunity status testing (ICD-10 - Z01.84) frequent URIs will get immune status testing, she agrees. Jun, Frequent infections (ICD-10 - Z86.19) [email or web address] Other 11-09-2022 Note [id number] 06-12-2022 NoteCustom Cystoscopy with Urethral Dilation ? Voiding after the procedure: there may be some pain, urethral bleeding, burning, urgency, frequency and blood tinged urine following the procedure. These symptoms usually resolve within 2-5 days. Drink the amount of fluid it takes to keep the urine pink to yellow or clear in color. Drinking enough water and fluids will help to ease any discomfort after your procedure. ? If you are having problems that seem out of the ordinary, please call. ? If unable to contact your physician and you feel it is an emergency, go to the nearest emergency room or call 911 ? Diet ? you may resume your normal diet. ? Activity ? you may resume your normal activities ? Call if you have a fever over 100 degrees[facility] Instructions* Patient Instructions* Nasra Lo PA-C - 05/15/2022 3:31 PM EDT PLAN: -Recommend calling insurance company for available dentists for your jaw pain likely the cause of the ear pain -Recommend trial of hearing aids, both ears if possible. Paperwork given in clinic. -If the ear hurts with swallowing again, can try Flonase (2 sprays, once daily) -Follow up after dentist appointment, can be virtual documented in this encounterK[facility]-2022 Nurse Note* Alisson Souza Ma - 05/15/2022 3:24 PM EDT Tobacco Use: Never Was smoking cessation packet given? N/A - Patient is a non-smoker or quit >1 year ago. Was a referral initiated?N/A Patient is a non-smoker documented in this encounterK[facility]10-11-2022 History of Present illness Narrative* Nasra Lo PA-C - 05/15/2022 3:22 PM EDT Images from the original note were not included. History of Present Illness Ms. LISA FERNANDO is a 46 year old female presenting to the clinic for a follow up of her bilateral otalgia and hearing loss. The following information above was copied, reviewed and is still up todate. Last seen 04/04/2022. Since last seen, Has been having right ear pain. She reports that last week when she was swallowing, she would get lori pain in her ear. It was a stabbing pain. Throat did not hurt. Denies sinus congestion. Grandchildren were previously sick. Denies recent air travel. Has not been to the dentist. Should be getting some insurance through work on top of her medicaid. Otorrhea: denies Ear Pressure/Fullness: denies Hearing Loss: Reports there is hearing loss, bilaterally. Struggling to hear others still. Had audiogram done last week. Tinnitus: denies Dizziness/Imbalance: Lately feels off balance and if the room is about to spin. This is lasting about a minute at a time. Has never had vertigo. Feels that she is going to fall, but has not fallen. Facial Numbness, Weakness or Tingling: denies ALLERGIES Allergen Reactions Aloe Vera Other: See Comments Baclofen Other: See Comments, Swelling Cephalexin GI Upset, Vomiting Ciprofloxacin Other: See Comments Cyclobenzaprine Hives, Unknown Gabapentin Hives, Unknown, Other: See Comments Menthol Other: See Comments Metformin Hives Nsaids (Non-Steroid* Hives, Rash, Other: See Comments Azithromycin Itching, Rash Current Outpatient Medications on File Prior to Visit Medication Sig furosemide (LASIX) 40 mg tablet furosemide 40 mg tablet TAKE 1 TABLET BY MOUTH ONCE DAILY FOR 30 DAYS liraglutide (VICTOZA) 0.6 mg/0.1 mL (18 mg/3 mL) Victoza 3-Arden 0.6 mg/0.1 mL (18 mg/3 mL) subcutaneous pen injector carbidopa-levodopa (SINEMET 10-100) 10-100 mg per tablet 1 tablet daily at bedtime. doxycycline hyclate (VIBRAMYCIN) 100 mg capsule ibuprofen (MOTRIN) 800 mg tablet (Patient not taking: Reported on 04/04/2022) metFORMIN (GLUCOPHAGE) 500 mg tablet metformin 500 mg tablet TAKE 1 TABLET BY MOUTH TWICE DAILY potassium chloride SR (MICRO-K) 10 mEq CR capsule potassium chloride ER 10 mEq capsule,extended release albuterol HFA (PROVENTIL HFA, VENTOLIN HFA) 90 mcg/actuation inhaler Inhale 2 Puffs as instructed. (Patient not taking: Reported on 04/04/2022) meloxicam (MOBIC) 15 mg tablet Take 1 tablet by mouth once daily. PROAIR HFA 90 mcg/actuation inhaler as needed. (Patient not taking: Reported on 04/04/2022) LATUDA 20 mg tablet 1 tablet once daily. OXcarbazepine (TRILEPTAL) 150 mg tablet 1 tablet twice daily. No current facility-administered medications on file prior to visit. Objective: There were no vitals taken for this visit. Appearance: Non-syndromic, cooperative and calm Communication: Voice has adequate volume; there is no stridor Head/Face: head and facial contours are symmetric Facial nerve 1/6 bilateral Skin: no skin lesions or scarring on face Ears: AD External auditory canal is patent. TM is clear and intact. External auditory canal is patent. TM is clear and intact. Rinne Calderon AD 256 512 m + + 1024 Nose: external exam with straight profile Oral Cavity: Poor dentition with bilateral TMJ tenderness. Oropharynx: Uvula hangs midline; mucosa is pink and moist Neck: no LAD Lymphatic: No lymphadenopathy or masses Neuro/Psych.: Alert and Oriented x 3 Cranial nerves intact Data Review: Assessment: (H92.03) Otalgia, bilateral (primary encounter diagnosis) (H90.3) Sensorineural hearing loss (SNHL) of both ears (R42) Dizziness Plan: 1. Recommend patient touch base with her insurance company to find a dentist or TMJ specialist as Ibelieve this is the root of her ear pain. 2. Patient can try to obtain hearing aids, however I explained that she may not be meeting Medicaidcriteria. She is medically cleared for hearing aids, bilaterally. Paperwork filled out and given topatient. 3. If ears are popping or bothersome while swallowing, encouraged her to use Flonase. 4. Patient to follow up after dentist appointment. Orders: Office Visit on 05/15/22 DULoxetine (CYMBALTA) 60 mg capsule celecoxib (CELEBREX) 200 mg capsule Procedures: None. Nasra Lo PA-C June 12, 2022 8:05 AM I spent a total of 30 minutes on the date of the service which included [id number] patient care, completing clinical documentation, performing a medically appropriate examination, counseling and educating the patient/family/caregiver, and communicating results to the patient/family/caregiver. documented in this encounterK[facility]10-03-2022 History of Present illness Narrative* NICOLE Branch - 05/07/2022 4:00 PM EDT Head [facility] Neck [place] AUDIOLOGIC EVALUATION REPORT Name: Lisa Fernando CCF#: [id number] Date of Service: 05/07/2022 Date of : 1975 Age: [age] year old Referred by: Nasra Lo PA-C [id number] [facility] [place] [address] Referred for: Evaluation of suspected change in hearing, tinnitus, or balance. Referral documented: In an order in [facility] Patient's major complaints: Reduced hearing in both ears, Dizziness/vertigo/imbalance, Re-test hearing bilateral , Otalgia in the right ear Lisa Fernando was seen for a recheck audiologic evaluation prior to follow-up with ENT on 05/15/2022. Most recent audio on 10/31/21 revealed mild SNHL in both ears. History is significant for arthralgia of right temporomandibular joint, migraines, long-standing otalgia in both ears, and head trauma (concussion in 2010). Today, she reported decreased hearing sensitivity in both ears. Additional symptoms include right sided otalgia (7/10) and dizziness described as imbalance and room spinning sensation which is provoked by positional changes. Ms. Fernando denied tinnitus, otorrhea, and aural fullness/pressure. See SmartForm Audiogram for additional reported history and symptoms. IMPRESSIONS RIGHT EAR: Sensorineural hearing loss LEFT EAR: Sensorineural hearing loss Comparison of today's results with previous test results (10/31/21): Today's results reveal no significant change in both ears AUDIOLOGIC EVALUATION Following is a brief interpretation of the obtained findings from the audiologic evaluation. Refer to the Auditory Test Record for complete audiometric results. The patient was counseled about the test findings and appropriate audiologic recommendations were made. SUMMARY: Audiogram can be viewed under Forms/Audiology/SmartForm. OTOSCOPY RIGHT EAR: Otoscopic inspection revealed ear canal was clear with an identifiable cone of light. LEFT EAR: Otoscopic inspection revealed ear canal was clear with an identifiable cone of light. TYMPANOMETRY Description of procedure: This test is an objective evaluation of middle ear function. CPT code: 55461 RIGHT EAR: Normal ME function. LEFT EAR: Normal ME function. ACOUSTIC REFLEXES Description of procedure: This test is an objective measure of auditory and facial nerve pathways. CPT code: 30975, 55428 RIGHT EAR PROBE EAR: (ipsi right stimulus ear; contralateral left stimulus ear): Acoustic Reflex Pattern Did not test Acoustic Reflex Decay (left stimulus ear): Did not test. LEFT EAR PROBE EAR: (ipsi left stimulus ear; contralateral right stimulus ear): Acoustic Reflex Pattern Did not test Acoustic Reflex Decay (right stimulus ear):Did not test. PURE TONE AUDIOMETRY AND SPEECH TESTING Description of procedure: This test is an objective evaluation hearing sensitivity via air and boneconduction and speech recognition testing. CPT code:81189 RIGHT EAR: Hearing Sensitivity: Mild SNHL 250-8000 Hz Word Recognition Score: Excellent (100%). WRS is consistent with hearing sensitivity. Words were presented at 65 dB HL is above (greater than or equal to 60 dB HL) intensity level for average conversational speech. The NU-6 Ordered by Difficulty Word List (10 words) was used for testing. LEFT EAR: Hearing Sensitivity: Mild SNHL 250-8000 Hz Word Recognition Score: Excellent (90%). WRS is consistent with hearing sensitivity. Words were presented at 65 dB HL is above (greater than or equal to 60 dB HL) intensity level for average conversational speech. The NU-6 Ordered by Difficulty Word List (10 words) was used for testing. RECOMMENDATIONS * Continue medical follow-up with Nasra Lo PA-C as scheduled. * The patient was counseled regarding the need to continue to monitor hearing and have regular hearing assessments. * Consider assessment of vestibular and balance system (Vestibular Battery). * Re-evaluation as medically indicated or return if a change in hearing is noted. Nicole Branch, CCC/A SHI Abbrev- iation Definition Degree of hearing sensitivity dB range WNL within normal limits WNL 0 - 20 SNHL sensorineural hearing loss Mild 20-40 CHL conductive hearing loss Moderate 40-55 MHL mixed hearing loss Moderately-Severe 55-70 WRS word recognition score Severe 70-90 ME middle ear Profound 90 + TM tympanic membrane documented in this encounterK[facility]09-22-2022 Evaluation note* Encounter Date Diagnosis Assessment Notes Treatment Notes Treatment Clinical Notes Apr, Bilateral leg edema (ICD-10 - R60.0) I did review the comprehensive venous duplex with the patient today. There was no reflux identified in the superficial or deep system, bilaterally. She did have some rouleaux flow in the common femoral vein bilaterally. Based on these results I would recommend conservative, nonoperative management with weight loss and exercise regimen leg elevation compression stockings. There is no indication for any surgery or procedure at this time. This is explained to the patient she understands agrees the plan. We will see her as needed in the future. [email or web address] Other 09-22-2022 Evaluation note* Encounter Date Diagnosis Assessment Notes Treatment Notes Treatment Clinical Notes Apr, Chronic venous insufficiency of lower extremity (ICD-10 - I87.2) [email or web address] Other 08-31-2022 Evaluation note* Encounter Date Diagnosis Assessment Notes Treatment Notes Treatment Clinical Notes Mar, Symptomatic varicose veins of both lower extremities (ICD-10 - I83.893) For this patient I suggested that we start off with a comprehensive venous duplex evaluation to evaluate for any valvular incompetence and/or reflux. We will order this and see her back to go over the results in the next few weeks all of her questions were addressed. She understands agrees the plan [email or web address] Other 08-29-2022 Evaluation note* Encounter Date Diagnosis Assessment Notes Treatment Notes Treatment Clinical Notes Mar, Microscopic hematuria (ICD-10 - R31.29) if culture is neg will set up with urology, she is in agreement. Mar, Gastroparesis (ICD-10 - K31.84) not on anything, does not remember ever being on reglan in the past, will start. follow in 4 weeks. Mar, GERD without esophagitis (ICD-10 - K21.9) will start omepraozle and have her follow in 4 weeks. hopefully these things will resolve her nausea with eating. if not will need GI. [email or web address] Other 08-04-2022 Evaluation note* Encounter Date Diagnosis Assessment Notes Treatment Notes Treatment Clinical Notes Mar, Type 2 diabetes mellitus without complications (ICD-10 - E11.9) Mar, Obesity (BMI 35.0-39.9 without comorbidity) (ICD-10 - E66.9) Mar, Vitamin B12 deficiency (ICD-10 - E53.8) Mar, Mixed hyperlipidemia (ICD-10 - E78.2) Mar, Knee osteoarthritis (ICD-10 - M17.9) Mar, Low back pain (ICD-1 0 - M54.5) Mar, Metabolic syndrome (ICD-10 - E88.81) [email or web address] Other 07-28-2022 Evaluation note* Encounter Date Diagnosis Assessment Notes Treatment Notes Treatment Clinical Notes Feb, Bad odor of urine (ICD-10 - R82.90) will send in macrobid. she will return in 4 weeks to get urine sample due to the microscopic blood. Feb, Varicose veins of both lower extremities, unspecified whether complicated (ICD-10 - I83.93) will set up with vascular as she reports these varicose veins are causing her pain. Feb, Otalgia of both ears (ICD-10 - H92.03) here today for this complaint. has tired flonase without relief. will need to follow with her ENT. no obvious causes of ear pain on exam. Feb, Other Patient was giv en a written hand out of important bullet points of what we had talked about in today's office visit with reminders of ordered items, new or changed prescriptions, and follow-up timing. Patient was instructed if there are any questions/concerns to call the office between now and next office visit. Patient had all questions/concerns that were relayed to me in the office visit today discussed/addresse d. Patient denied further questions at conclusion of office visit. [email or web address] Other 06-28-2022 Evaluation note* Encounter Date Diagnosis Assessment Notes Treatment Notes Treatment Clinical Notes Jan, Vitamin B12 deficiency (ICD-10 - E53.8) [email or web address] Other 06-20-2022 Evaluation note* Encounter Date Diagnosis Assessment Notes Treatment Notes Treatment Clinical Notes Jan, Bronchitis (ICD-10 - J40) will do prednisone, she has been on before without issues. She will call if not improved. Jan, Acute non-recurrent sinusitis, unspecified location (ICD-10 - J01.90) will do doxy. she will call if not improved. [email or web address] Other 06-03-2022 Evaluation note* Encounter Date Diagnosis Assessment Notes Treatment Notes Treatment Clinical Notes Jan, Lump in neck (ICD-10 - R22.1) Agree with thisSmall superficial lump to posterior left ear. She does have a picture on her phone of it being larger. Then she reports it went away and now it is back again. I do think this is likely a cyst. We will get an ultrasound. If enlarged node will get her back in with ENT clinic. If a cyst will get in with dermatology for potential removal if she is interested. [email or web address] Other 05-17-2022 Evaluation note* Encounter Date Diagnosis Assessment Notes Treatment Notes Treatment Clinical Notes December, Obesity (ICD-10 - E66.9) December, BMI 37.0-37.9, adult (ICD-10 - Z68.37) December, Other Summary of Visi t: (A) Discussed setting reminders to grab a quick breakfast [email or web address] Other 05-17-2022 Evaluation note* Encounter Date Diagnosis Assessment Notes Treatment Notes Treatment Clinical Notes December, Cough variant asthma (ICD-10 - J45.991) December, Reactive airway disease (ICD-10 - J45.909) [email or web address] Other 05-13-2022 Miscellaneous Notes* Telephone Encounter - Nasra Lo PA-C - 12/15/2021 7:06 PM EDT Called patient with MRI results. Had Dr. Tomasa Gipson look them over. No retrocochlear pathology. Ears are still bothering patient but she has not gone to the dentist. Recommended appointment with dentist. Nasra Lo PA-C December 15, 2021 7:09 PM documented in this encounterK[facility]04-19-2022 Evaluation note* Encounter Date Diagnosis Assessment Notes Treatment Notes Treatment Clinical Notes Nov, Type 2 diabetes mellitus without complications (ICD-10 - E11.9) Nov, Obesity (BMI 35.0-39.9 without comorbidity) (ICD-10 - E66.9) Nov, Vitamin B12 deficiency (ICD-10 - E53.8) Nov, Mixed hyperlipidemia (ICD-10 - E78.2) Nov, Knee osteoarthritis (ICD-10 - M17.9) Nov, Low back pain (ICD-1 0 - M54.5) Nov, Metabolic syndrome (ICD-10 - E88.81) [email or web address] Other 03-29-2022 History of Present illness Narrative* Nasra Lo PA-C - 10/31/2021 3:30 PM EDT Images from the original note were not included. History of Present Illness Ms. LISA FERNANDO is a 46 year old female with a history of GERD, gastroparesis and migraines presents to the clinic for bilateral otalgia. The following information above was copied, reviewed and is still up to date. Chief Complaint: Follow up bilateral otalgia. Last seen on 09/05/2021. Since last seen, Bilateral ear pain is still present. Achy pain, that is the same as when she was last seen. Taking ibuprofen that is not helping the pain. The ears feel as if they clog up for a few hours at a time. Tinnitus is improved. Hearing feels worse today than it did at her last appointment. Feels like the left ear is worse than the right. Volume is still increased on the TV, no closed captioning. Dizziness is still present. Room spinning sensation that is lasting a minute at a time. It happens when she bends over. Denies otorrhea and facial numbness, weakness and tingling. The jaw has been bothersome, has not been to the dentist for further evaluation. ALLERGIES Allergen Reactions Aloe Vera Other: See Comments Baclofen Other: See Comments, Swelling Cephalexin GI Upset, Vomiting Ciprofloxacin Other: See Comments Cyclobenzaprine Hives, Unknown Gabapentin Hives, Unknown, Other: See Comments Menthol Other: See Comments Metformin Hives Nsaids (Non-Steroid* Hives, Rash, Other: See Comments Azithromycin Itching, Rash Current Outpatient Medications on File Prior to Visit Medication Sig doxycycline hyclate (VIBRAMYCIN) 100 mg capsule furosemide (LASIX) 40 mg tablet furosemide 40 mg tablet TAKE 1 TABLET BY MOUTH ONCE DAILY FOR 30 DAYS ibuprofen (MOTRIN) 800 mg tablet liraglutide (VICTOZA) 0.6 mg/ 0.1 ml subcutaneous pen injector Victoza 3-Arden 0.6 mg/0.1 mL (18 mg/3mL) subcutaneous pen injector metFORMIN (GLUCOPHAGE) 500 mg tablet metformin 500 mg tablet TAKE 1 TABLET BY MOUTH TWICE DAILY potassium chloride SR (MICRO-K) 10 mEq CR capsule potassium chloride ER 10 mEq capsule,extended release albuterol HFA (PROVENTIL HFA, VENTOLIN HFA) 90 mcg/actuation inhaler Inhale 2 Puffs as instructed. meloxicam (MOBIC) 15 mg tablet Take 1 tablet by mouth once daily. PROAIR HFA 90 mcg/actuation inhaler as needed. carbidopa-levodopa (SINEMET 10-100) 10-100 mg per tablet 1 tablet daily at bedtime. LATUDA 20 mg tablet 1 tablet once daily. OXcarbazepine (TRILEPTAL) 150 mg tablet 1 tablet twice daily. No current facility-administered medications on file prior to visit. Objective: There were no vitals taken for this visit. Appearance: Non-syndromic, cooperative and calm Communication: Voice has adequate volume; there is no stridor Head/Face: head and facial contours are symmetric Facial nerve 1/6 bilateral Skin: no skin lesions or scarring on face Ears: AD: External auditory canal is patent. TM is clear and mobile. : External auditory canal is patent. TM is clear and mobile. Rinne Calderon AD 256 + + 512 + + 1024 + + Nose: external exam with straight profile. Small cut/crusting on septum. Oral Cavity: Normal dentition Oropharynx: Uvula hangs midline; mucosa is pink and moist; tonsils present Neck: no LAD; thyroid without masses or enlargement Lymphatic: No lymphadenopathy or masses Neuro/Psych.: Alert and Oriented x 3 Cranial nerves intact Data Review: Personally reviewed, Bilateral sensorineural hearing loss with asymmetry at 6000 Hz. Excellent WRS bilaterally with normal tymps. Assessment: (H92.03) Otalgia, bilateral (primary encounter diagnosis) (M26.621) Arthralgia of right temporomandibular joint (H90.3) Sensorineural hearing loss (SNHL) of both ears (H93.13) Tinnitus of both ears (R42) Dizziness Plan: 1. MRI Brain -R/o retrocochlear pathology as a cause of otalgia, asymmetrical sensorineural hearing loss and dizziness. -Patient to have completed at outside facility and have results sent to office 2. Follow up, virtually with results. 3. Recommend seeing the dentist for possible TMJ as a cause of the ear pain 4. Use ointment in nose for about [address] an order for therapy for balance when patient is ready, declined at this time. Orders: Office Visit on 10/31/21 MRI BRAIN WO/W IVCON mupirocin (BACTROBAN) 2 % ointment Procedures: None. Nasra Lo PA-C November 28, 2021 7:39 PM Medical Decision Making: Problems: Moderate: 2+ stable chronic illnesses Data: Unique test(s) ordered: 1 Independent interpretation of test from other physician/QHCP Risk: Moderate: Drug management Medical Decision Making Level: 4 - Moderate documented in this encounterK[facility]03-29-2022 Instructions* Patient Instructions* Nasra Lo PA-C - 10/31/2021 2:38 PM EDT 1. MRI Brain -Let me know when you complete this -Ask for them to send the disc to our office 2. Follow up, virtually with results. 3. Recommend seeing the dentist for possible TMJ as a cause of the ear pain 4. Use ointment for about [address] an order for therapy for balance when you are ready. documented in this encounterK[facility]03-29-2022 Nurse Note* Sam Sen - 10/31/2021 1:57 PM EDT Tobacco Use: Never Was smoking cessation packet given? N/A - Patient is a non-smoker or quit >1 year ago. Was a referral initiated?N/A Patient is a non-smoker documented in this encounterKet[facility]03-29-2022 History of Present illness Narrative* Nishi Jonas - 10/31/2021 11:00 AM EDT Head and Neck [place] AUDIOLOGIC EVALUATION REPORT Name: Lisa Fernando CCF#: [id number] Date of Service: 10/31/2021 Date of : 1975 Age: [age] year old Referred by: Nasra Lo PA-C [id number] [facility] [id number] Referred for: Evaluation of suspected change in hearing, tinnitus, or balance. Referral documented: In an order in [facility] Patient's major complaints: Reduced hearing in both ears, dizziness/vertigo/imbalance, otalgia in both ears, pressure/fullness in both ears Ms. Fernando was seen for an initial audiologic evaluation at the request of Nasra Lo PA-C with complaints of bilateral gradual hearing loss, dizziness described as vertigo, bilateral ear pain (6/10), and bilateral aural fullness/pressure. History is significant for arthralgia of right temporom andibular joint and head trauma (concussion in 2011). See SmartForm Audiogram for additional reported history and symptoms. She denied otalgia, otorrhea, aural fullness/pressure, tinnitus, dizziness, prior otologic surgery,chemotherapy/radiation, family history of hearing loss, head trauma and noise exposure. Ms. Fernando was seen for an initial audiologic evaluation. See SmartForm Audiogram for additional reported history and symptoms. INTERPRETATION OF HEARING STATUS RIGHT EAR: Sensorineural hearing loss LEFT EAR: Sensorineural hearing loss TESTING, AND RESULTS Following is a brief interpretation of the obtained findings from the audiologic evaluation. Refer to the Auditory Test Record for complete audiometric results. The patient was counseled about the test findings and appropriate audiologic recommendations were made. SUMMARY: Audiogram can be viewed under Forms/Audiology/SmartForm. OUTER EAR: via otoscopic inspection RIGHT EAR: Otoscopic inspection revealed ear canal was clear with an identifiable cone of light. LEFT EAR: Otoscopic inspection revealed ear canal was clear with an identifiable cone of light. MIDDLE EAR: via acoustic immittance testing RIGHT EAR Tympanometry: Normal ME function. LEFT EAR Tympanometry: Normal ME function. AUDITORY/FACIAL NERVE FUNCTION: via acoustic reflex testing RIGHT EAR PROBE EAR: (ipsi right stimulus ear; contralateral left stimulus ear): Acoustic Reflex Pattern Did not test. Acoustic Reflex Decay (left stimulus ear): Did not test. LEFT EAR PROBE EAR: (ipsi left stimulus ear; contralateral right stimulus ear): Acoustic Reflex Pattern Did not test. Acoustic Reflex Decay (right stimulus ear):Did not test. HEARING ASSESSMENT: via pure tone and speech testing RIGHT EAR: Hearing Sensitivity: Mild sensorineural hearing loss 250-8000 Hz. Word Recognition Score: Excellent (100%). WRS is consistent with hearing sensitivity. Words were presented at 60 dB HL which is above intensity level for normal conversational speech. The NU-6 Order by Difficulty Word List (10 words) was used for testing. LEFT EAR: Hearing Sensitivity: Mild sensorineural hearing loss 250-8000 Hz. Word Recognition Score: Excellent (90%). WRS is consistent with hearing sensitivity. Words were presented at 60 dB HL which is above intensity level for normal conversational speech. The NU-6 Order by Difficulty Word List (10 words) was used for testing. MANAGEMENT PLAN: * Continue medical follow-up with Valdemar Lo PA-C as scheduled. * The patient was counseled regarding the need to continue to monitor hearing and have regular hearing assessments. Counseled patient that she does not currently meet Medicaid criteria for hearing aids and should return in 6-12 months for a repeat audiologic evaluation. * The patient was counseled regarding effective communication strategies to enhance communication ability. * Re-evaluation as medically indicated or return if a change in hearing is noted. KEITH Branch Doctor of Audiology Pig [employer] Manager Testing was obtained under the direct supervision of Nicole Hines, BENJAMIN/A I verify that I have reviewed the history, test results, and interpretation for this patient. Nicole Hines CCC-A Supervising Bartender Helper PORTER Abbrev- iation Definition Degree of hearing sensitivity dB range WNL within normal limits WNL 0 - 20 SNHL sensorineural hearing loss Mild 20-40 CHL conductive hearing loss Moderate 40-55 MHL mixed hearing loss Moderately-Severe 55-70 WRS word recognition score Severe 70-90 ME middle ear Profound 90 + TM tympanic membrane [facility]* Encounter Date Diagnosis Assessment Notes Treatment Notes Treatment Clinical Notes Oct, Type 2 diabetes mellitus without complications (ICD-10 - E11.9) Oct, Obesity (BMI 35.0-39.9 without comorbidity) (ICD-10 - E66.9) Oct, Vitamin B12 deficiency (ICD-10 - E53.8) Oct, Hypokalemia (ICD-10 - E87.6) Oct, Mixed hyperlipidemia (ICD-10 - E78.2) Oct, Knee osteoarthritis (ICD-10 - M17.9) Oct, Low back pain (ICD-1 0 - M54.5) Oct, Metabolic syndrome (ICD-10 - E88.81) [email or web address] Other 02-22-2022 Evaluation note* Encounter Date Diagnosis Assessment Notes Treatment Notes Treatment Clinical Notes Sep, Obesity (ICD-10 - E66.9) Sep, BMI 36.0-36.9,adult (ICD-10 - Z68.36) Sep, Other Summary of Visit: (A) Caution with energy drinks (B) Increase vegetables (C) Reviewed the nutrition label GOALS: Buy veggies from the store on days off Add veggies when cooking dinner [email or web address] Other 02-11-2022 Evaluation note* Encounter Date Diagnosis Assessment Notes Treatment Notes Treatment Clinical Notes Sep, Vitamin B12 deficiency (ICD-10 - E53.8) [email or web address] Other 02-07-2022 Evaluation note* Encounter Date Diagnosis Assessment Notes Treatment Notes Treatment Clinical Notes Sep, Cough (ICD-10 - R05.9) Sep, Acute non-recurrent sinusitis, unspecified location (ICD-10 - J01.90) lungs clear, i think cough due to sinus congestion/draina ge. will treat that. allergic to pcn will do doxy. she will call in 1 week if not improving. [email or web address] Other 01-11-2022 Evaluation note* Encounter Date Diagnosis Assessment Notes Treatment Notes Treatment Clinical Notes Aug, Otalgia of both ears (ICD-10 - H92.03) has been going on for over 1 month. Saw me 1 month ago and then went to the Er for it. Has tried flonase not helped. Will set up with ENT. Aug, Lymphadenopathy of head and neck (ICD-10 - R59.1) enlarged lymphnode or cyst on right lateral neck will get CT as this is bothersome to pt. Aug, Dandruff in adult (ICD-10 - L21.0) Will set up with dermatology steroid shampoo i gave did not help. Aug, Hypokalemia (ICD-10 - E87.6) repleated in Er. Will increase potassium from 10meq to 20meq daily. Aug, Right-sided chest wa ll pain (ICD-10 - R07.89) right chest tender to palpation. likely MSK. Cxr in er and remainder of work up in Er was negative. will do tiral of muscle relaxer. she is in agreement will call if things change/worsen. [email or web address] Other 01-10-2022 Evaluation note* Encounter Date Diagnosis Assessment Notes Treatment Notes Treatment Clinical Notes Aug, Vitamin B12 deficiency (ICD-10 - E53.8) [email or web address] Other 12-09-2021 Evaluation note* Encounter Date Diagnosis Assessment Notes Treatment Notes Treatment Clinical Notes Jul, Vitamin B12 deficiency (ICD-10 - E53.8) [email or web address] Other 11-23-2021 Evaluation note* Encounter Date Diagnosis Assessment Notes Treatment Notes Treatment Clinical Notes Jun, Type 2 diabetes mellitus without complications (ICD-10 - E11.9) Jun, Obesity (BMI 35.0-39.9 without comorbidity) (ICD-10 - E66.9) Jun, Vitamin B12 deficiency (ICD-10 - E53.8) Jun, Knee osteoarthritis (ICD-10 - M17.9) Jun, Low back pain (ICD-1 0 - M54.5) Jun, Metabolic syndrome (ICD-10 - E88.81) [email or web address] Other 11-16-2021 Evaluation note* Encounter Date Diagnosis Assessment Notes Treatment Notes Treatment Clinical Notes Jun, Cough variant asthma (ICD-10 - J45.991) OK to use BREO 1 puff daily if you notice increased wheeze or cough. Jun, Reactive airway disease (ICD-10 - J45.909) [email or web address] Other 11-11-2021 Evaluation note* Encounter Date Diagnosis Assessment Notes Treatment Notes Treatment Clinical Notes Jun, Obesity (ICD-10 - E66.9) Jun, BMI 36.0-36.9,adult (ICD-10 - Z68.36) Jun, Other Summary of Visit: (A) Regulate meal/snack pattern (B) Include fruits and vegetables with each meal/snack (C) Focus on small changes GOALS: 1. Set alarms for meals/snacks throughout the day, plan ahead 2. Add a fruit or vegetable with every meal or snack [email or web address] Other 11-09-2021 Evaluation note* Encounter Date Diagnosis Assessment Notes Treatment Notes Treatment Clinical Notes Jun, Vitamin B12 deficiency (ICD-10 - E53.8) Cyanocobalamin, 1ml, right arm, IM Lot# [id number] Exp. Date Aug [address] Morley verbal order/Radha KONG, RN [email or web address] Other 11-08-2021 Evaluation note* Encounter Date Diagnosis Assessment Notes Treatment Notes Treatment Clinical Notes Jun, Bronchitis (ICD-10 - J40) likely covid. will continue to monitor. use inhaler. give 2 more weeks if not improving will do PFTs she will call at that time. she is in agreement. Lungs sound good and over all improving. Jun, Lower extremity edema (ICD-10 - R60.0) will do compression stockings from [facility]. Hand wrote and will fax. Jun, History of left knee replacement (ICD-10 - Z96.652) reviewed CT knee with her ordred by ortho, which was normal. encouraged her to follow with ortho for her knee pain related to replacement 7 months ago. [email or web address] Other conshkl note Author Zayda Ku [facility] November 03, 2022 9:45am Note Date/Time November 03, 2022 9:38 am [facility] [address] [place] [address] Orthopedic Consult Note Signed Patient: Lisa Fernando MR#: [id number] : 1975 Acct:[id number] Age/Sex: 47 / F Adm Date: 3 Loc: Room: [address] [place] [address] Type: ADM IN Attending Dr: Walter Zhang MD Copies to: MD Zayda Spangler MD Kaitlin E Schwerer, DO~ History of Present Illness HPI Consult date: 11/03/2022 Requesting provider: Walter Zhang MD Consult reason: other History of present illness: 47-year-old woman status post recent revision left thumb trapeziectomy LRTI procedure with supplemental pinning with concern for left thumb/ hand cellulitisand pin tract infection Patient reports that she had undergone a surgical procedure at her left thumb approximately 1 week ago in [place] with Dr. Sun Patient reports that the cast/ splint she had been placed and after surgery had been rubbing on the pin site, she had recently seen a physical therapist this prior Saturday who had removed the splint and placed her in a brace, but reports continued rubbing and irritation from the brace. Patient reports she does not have the brace here at the hospital that her took at home Patient reports recent redness near the pin site beginning on Saturday with reported drainage and worsening pain primarily at the pin site Patient does report that the redness and pain are somewhat improved after being admitted to the hospital for IV antibiotics Review of the medical H&P reveals the patient has also been reporting shortness of breath and chest pain for 2 weeks due to anxiety History nicotine vape Review of Systems Review of Systems All other systems reviewed & are negative unless noted below or in HPI PMFSH Vaccinated for COVID-19?: No Medical History (Updated 11/03/22 @ 01:35 by Rhiannon Fernando APRN) Asthma Bipolar 1 disorder Bronchitis Chronic back pain Degenerative disc disease Depression Diabetes DJD (degenerative joint disease) Episiotomy pain repair Kidney stones Migraine Overactive bladder RLS (restless legs syndrome) Surgical History H/O arthroscopic knee surgery right H/O lithotripsy H/O oral surgery History of carpal tunnel release of both wrists History of hand surgery removed a cyst, removed a bone History of hysterectomy History of knee surgery left Hx of cholecystectomy Hx of tonsillectomy Knee joint replacement status bilateral Previous section Family History Father Diabetes Mother Hypertension Son ADHD Social History Smoking Status: Current some day smoker Tobacco Type: e-cigarettes Substance Use Type: None Substance Abuse Comment: etoh occasionally Social History Comments: son age 15 Allergies & Medications Medications and Allergies Allergies aloe vera Allergy (Verified 11/02/22 21:39) Unknown Reaction azithromycin Allergy (Verified 11/02/22 21:39) Rash, itching baclofen Allergy (Verified 11/02/22 21:39) Unknown Reaction ciprofloxacin Allergy (Verified 11/02/22 21:39) Unknown Reaction cyclobenzaprine [From Flexeril] Allergy (Verified 11/02/22 21:39) Hives gabapentin [From Neurontin] Allergy (Verified 11/02/22 21:39) Unknown Reaction menthol Allergy (Verified 11/02/22 21:39) Unknown Reaction naproxen Allergy (Verified 11/02/22 21:39) Rash Penicillins Allergy (Verified 11/02/22 21:39) Hives topiramate [From Topamax] Allergy (Verified 11/02/22 21:39) Hives tramadol [From Ultram] Allergy (Verified 11/02/22 21:39) Unknown Reaction vitamin E (d-alpha tocopherol) Allergy (Verified 11/02/22 21:39) Unknown Reaction cephalexin Adverse Reaction (Verified 11/02/22 21:39) Nausea morphine Adverse Reaction (Verified 11/02/22 21:39) Unknown Reaction sumatriptan [From Imitrex] Adverse Reaction (Verified 11/02/22 21:39) Gastrointestinal Upset Home Medications carbidopa 25 mg-levodopa 100 mg tablet (Sinemet) 1 tab PO QHS PRN Restless Leg(S) 05/15/17 [History Confirmed 11/03/22] potassium chloride 10 mEq capsule,extended release 20 meq PO DAILY hypokalemia 06/26/19 [History Confirmed 11/03/22] albuterol sulfate 2.5 mg/3 mL (0.083 %) solution for nebulization 2.5 mg inhalation Q4H PRN Shortness Of Breath 09/21/19 [History Confirmed 11/03/22] albuterol sulfate 90 mcg/actuation aerosol inhaler 2 puff inhalation Q4H PRN Shortness Of Breath 09/21/19 [History Confirmed 11/03/22] furosemide 40 mg tablet 40 mg PO BID leg edema 01/21/20 [History Confirmed 11/03/22] ibuprofen 800 mg tablet 800 mg PO TID PRN Pain 03/20/21 [History Confirmed 11/03/22] liraglutide 0.6 mg/0.1 mL (18 mg/3 mL) subcutaneous pen injector (Victoza 3- Arden)1.8 mg subcut QAM 03/20/21 [History Confirmed 11/03/22] rimegepant 75 mg disintegrating tablet (Nurtec ODT) 75 mg PO DIRECTED PRN Migraine Headache 03/20/21 [History Confirmed 11/03/22] duloxetine 30 mg capsule,delayed release 90 mg PO DAILY 09/04/21 [History Confirmed 11/03/22] albuterol sulfate 90 mcg/actuation breath activated powder inhaler 1 inh inhalation Q6H PRN shortness of breath or wheezing 7 days #1 ea 06/14/22 [Rx Confirmed 11/03/22] ibuprofen 600 mg tablet 600 mg PO Q8H PRN pain #20 tabs 10/20/22 [Rx Confirmed 11/03/22] budesonide-formoterol HFA 160 mcg-4.5 mcg/actuation aerosol inhaler (Symbicort) 2 puff inhalation BID 11/03/22 [History Confirmed 11/03/22] carbamazepine 200 mg tablet 200 mg PO BID 11/03/22 [History Confirmed 11/03/22] celecoxib 200 mg capsule 200 mg PO DAILY 11/03/22 [History Confirmed 11/03/22] clobetasol 0.05 % shampoo 1 applic topical USEASDIRECTD 11/03/22 [History Confirmed 11/03/22] cyanocobalamin (vitamin B-12) 1,000 mcg tablet 1,000 mcg PO DAILY 11/03/22 [History Confirmed 11/03/22] estradiol 0.01% (0.1 mg/gram) vaginal cream 1 applic vaginal QMWF 11/03/22 [History Confirmed 11/03/22] loratadine 10 mg tablet 10 mg PO DAILY PRN Allergic Reaction 11/03/22 [History Confirmed 11/03/22] Exam Physical Exam Vital Signs: Temp Pulse Resp BP Pulse Ox O2 Del Method 97.6 F 65 16 105/67 97 Room Air 11/03/22 08:00 11/03/22 08:00 11/03/22 08:00 11/03/22 08:00 11/03/22 08:00 11/03/22 08:00 Narrative: GENERAL Awake, alert, oriented, and in no acute distress UPPER EXTREMITY Post injury/ operative incision is clean dry and intact without evidence of purulent drainage, cellulitis, or infection. Nonabsorbable sutures are in place at the left forearm and hand without evidenceof significant wound dehiscence Negative erythema or warmth on palpation at the surgical incision sites at the left forearm and hand K wire site of the left thumb metacarpal CMC area has mild surrounding reactive erythema but does not appear specifically infectious at this time Negative drainage expressed from K wire site or tract palpation Positive tenderness palpation along the K wire site and tract which may be as expected in the postsurgical period Negative warmth on palpation at the K wire site or tract left thumb and hand Negative a sending cellulitis or erythema on inspection left thumb or wrist Mild positive swelling left thumb and extremity as expected in the postoperativeperiod Negative ecchymosis left thumb and extremity as expected in the postoperative period Positive tenderness to palpation left thumb and extremity as expected in the postoperative period L Radial pulse 2+ and intact L Sensory intact to light touch at the axillary/ radial/ ulnar/ median nerve distributions L Motor intact EPL/ FPL/ Dorsal interosseous ABduction/ Palmar interosseous ADduction/ DIP/ PIP/ EIP/ EDC/ EDM/ wrist extension & flexion/ elbow extension &flexion/ shoulder forward elevation & abduction Decreased range of motion of thumb secondary to recent surgical procedure and postsurgical pain as expected LOWER EXTREMITY Negative Tenderness to palpation at the BLE B Dorsalis pedis pulse 2+ and intact B Sensory intact to light touch distally at the tibial/ sural/ saphenous/ deep peroneal/ superficial peroneal nerve distributions B Motor intact EHL/ FHL/ ankle dorsiflexion/ ankle plantarflexion/ knee extension & flexion/ quadriceps straight leg raise CARDIOVASCULAR RRR by palpation RESPIRATORY No audible wheezes Occasional cough HEENT EOMI Results Lab Results 11/03/22 05:09 11/03/22 05:09 Labs: Laboratory Results - Last 48 hrs. 11/03/22 05:09: PHA Creatinine Clear 145.98, Sodium 136, Potassium 4.2, Lynrectc433 H, Carbon Dioxide 23.3, Anion Gap 8.9, BUN 13, Creatinine 0.53 L, Est GFR (CKD- EPI) > 60.0, Glucose 106 H, Calcium 8.6 11/03/22 05:09: Corrected WBC 9.1, Uncorrected WBC Count 9.1, RBC 4.18, Hgb 11.7L, Hct 33.6 L, MCV 80.3, MCH 27.9, MCHC 34.8, RDW 13.4, Plt Count 250, MPV 7.3, Neut % (Auto) 58.3, Lymph % (Auto) 30.1, Roane % (Auto) 8.3, Eos % (Auto) 2.8, Baso % (Auto) 0.5, Nucleat RBC Rel Count 0.1, Neut # (Auto) 5.3, Lymph # (Auto) 2.7, Roane # (Auto) 0.8, Eos # (Auto) 0.3, Baso # (Auto) 0.0 11/02/22 21:50: Lactic Acid 1.3 11/02/22 21:50: PHA Creatinine Clear 122.84, Sodium 135 L, Potassium 3.6, Chloride 102, Carbon Dioxide 24.3, Anion Gap 12.3, BUN 18, Creatinine 0.63, Est GFR (CKD- EPI) > 60.0, Glucose 148 H, Calcium 9.2, Total Bilirubin 0.3, AST 17, ALT 14, Alkaline Phosphatase 78, C-Reactive Prot, Quant 0.6 H, Total Protein 7.1, Albumin 4.1, Globulin 3.0, Albumin/Globulin Ratio 1.4 11/02/22 21:50: Corrected WBC 10.2, Uncorrected WBC Count 10.2, RBC 4.55, Hgb 12.7, Hct 36.4, MCV 80.1, MCH 28.0, MCHC 35.0, RDW 13.5, Plt Count 270, MPV 7.1,Neut % (Auto) 59.3, Lymph % (Auto) 30.1, Roane % (Auto) 7.1, Eos % (Auto) 2.9, Baso % (Auto) 0.6, Nucleat RBC Rel Count 0.1, Neut # (Auto) 6.0, Lymph # (Auto) 3.1, Roane # (Auto) 0.7, Eos # (Auto) 0.3, Baso # (Auto) 0.1, Monocyte Dist Width17.88, ESR 30 H H & H 11/02/22 11/03/22 Range/Units 21:50 05:09 Hgb 12.7 11.7 L (11.8-15.4) g/dL Hct 36.4 33.6 L (34.0-46.4) % All other labs are normal. Imaging & Diagnostic Results Imaging/Diagnostics: XRAY ([facility] 11/02/2022) LEFT HAND: 2 views AP and lateral reviewed. Images demonstrate postsurgical changes with absence of trapezium at the left thumb column and a metallic K wirein place between the thumb metacarpal and index finger metacarpal base. Ulnar neutral variance at the wrist on available views. There may be some slight narrowing between the scaphoid and trapezoid though difficult to ascertain on available films given positioning. There may be some narrowing of the joint line between the radial styloid and scaphoid, though again this may be positional or postural in nature. Negative acute fracture or dislocation. Assessment/Plan (1) Cellulitis, wound, post-operative: Plan: 47-year-old woman approximately 1 to 2 weeks status post reported revision left thumb trapeziectomy LRTI procedure with supplemental K wire pinning, and likely superficial K wire site/ tract infection -Discussion held with patient regarding diagnosis and treatment options. At this time, the patient likely has a very mild and superficial infection around the K wire site, though there does not appear to be a particularly deep pin siteor tract infection as there is no significant warmth, loosening of the pin, or purulent drainage. There does not appear to be any deep space infection or life or limb threateninginfection which would require immediate surgical intervention at this time. Consequently, I would recommend local wound care with pin site care and potential soap soaking protocol with Hibiclens chlorhexidine gluconate soap 2-3 times daily to the pin site and hand. In addition I would recommend dressing changes as well as mobilization with splint. I did offer to make the patient a splint for immobilization but the patient has declined at this time. Again, as there is no life or limb threatening infection which would require immediate surgical intervention at our institution, I would recommend the patient follow-up with her orthopedic surgeon at [place] for further direction ofcare, and potential removal of the K wire -Medical comorbidities per the medical team -Pain control: Patient has a history of pain management and may be some difficulty in pain control given her postoperative pain -Vitamin C 500 mg daily for skin and wound healing -[facility] orthopedics will follow peripherally, please call with questions or if reevaluation needed. Again, given the superficial nature of the the K wire site infection, would recommend the patient follow-up with [facility] and her original orthopedic surgeon for further direction of care as she is in the immediate postoperative period Code(s): T81.49XA - Infection following a procedure, other surgical site, initial encounter (2) T2DM (type 2 diabetes mellitus): Code(s): E11.9 - Type 2 diabetes mellitus without complications (3) Bipolar 1 disorder: Code(s): F31.9 - Bipolar disorder, unspecified (4) Asthma: Code(s): J45.909 - Unspecified asthma, uncomplicated Billing Billing Codes (IF APPLICABLE) List of Applicable Codes for [place] Documented By: Zayda Ku MD 11/03/22 093 0 Signed By: <Electronically signed by Zayda Ku MD> 11/03/22 0945 [facility] Work Phone: Consult note Author Mimi Rodriguez [facility] November 03, 2022 10:54am Note Date/Time November 03, 2022 10:5 5am [facility] [address] [place] [address] Infect. Disease Consult Note Signed Patient: Lisa Fernando MR#: [id number] : 1975 Acct:[id number] Age/Sex: 47 / F Adm Date: 3 Loc: Room: [address] [place] [address] Type: ADM IN Attending Dr: Walter Zhang MD Copies to: MD Jorgito Spangler DO Michael S Blank, MD~ HPI Data of Consult Consult date: 11/03/22 Requesting Physician: Walter Zhang MD Primary Care Provider: Jorgito Sanchez DO Consult Narrative History of present illness: Ms. Fernando is a 47 year old female who just had hand surgery at [facility] a week ago. She apparently had of the left thumb interposition and arthroplasty. The hand is wrapped currently and Dr. Ku the orthopedic surgeon and I talked about her before I went into the room. The patient was sound asleep when I walked in the room. Despite me calling her name she still did not open her eyes. She could have been ignoring me. According to Dr. Ku's consult there is no sign of wound dehiscence. There is no significant erythema or warmth. There is a K wire site on the left thumb with some mild reactive erythema. Patient was placed on IV antibiotics on admission. I was consulted for postoperative wound infection. CC: Walter Zhang MD Review of Systems Review of Systems Other (patient sleeping; did not awaken for me) [facility] Source: Other (Patient asleep.) Vaccinated for COVID-19?: No Medical History (Updated 11/03/22 @ 10:53 by Mimi Rodriguez MD) Asthma Bipolar 1 disorder Bronchitis Chronic back pain Degenerative disc disease Depression Diabetes DJD (degenerative joint disease) Episiotomy pain repair Kidney stones Migraine Overactive bladder RLS (restless legs syndrome) Surgical History (Updated 11/03/22 @ 10:53 by Mimi Rodriguez MD) H/O arthroscopic knee surgery right H/O lithotripsy H/O oral surgery History of carpal tunnel release of both wrists History of hand surgery removed a cyst, removed a bone History of hysterectomy History of knee surgery left Hx of cholecystectomy Hx of tonsillectomy Knee joint replacement status bilateral Previous section Family History Father Diabetes Mother Hypertension Son ADHD Social History Smoking Status: Current some day smoker Tobacco Type: e-cigarettes Substance Use Type: None Substance Abuse Comment: etoh occasionally Social History Comments: son age 15 Allergies and Medications Allergies and Active Meds Allergies aloe vera Allergy (Verified 11/02/22 21:39) Unknown Reaction azithromycin Allergy (Verified 11/02/22 21:39) Rash, itching baclofen Allergy (Verified 11/02/22 21:39) Unknown Reaction ciprofloxacin Allergy (Verified 11/02/22 21:39) Unknown Reaction cyclobenzaprine [From Flexeril] Allergy (Verified 11/02/22 21:39) Hives gabapentin [From Neurontin] Allergy (Verified 11/02/22 21:39) Unknown Reaction menthol Allergy (Verified 11/02/22 21:39) Unknown Reaction naproxen Allergy (Verified 11/02/22 21:39) Rash Penicillins Allergy (Verified 11/02/22 21:39) Hives topiramate [From Topamax] Allergy (Verified 11/02/22 21:39) Hives tramadol [From Ultram] Allergy (Verified 11/02/22 21:39) Unknown Reaction vitamin E (d-alpha tocopherol) Allergy (Verified 11/02/22 21:39) Unknown Reaction cephalexin Adverse Reaction (Verified 11/02/22 21:39) Nausea morphine Adverse Reaction (Verified 11/02/22 21:39) Unknown Reaction sumatriptan [From Imitrex] Adverse Reaction (Verified 11/02/22 21:39) Gastrointestinal Upset Active Medications Acetaminophen (Acetaminophen 500 Mg Tablet) 1,000 mg PO Q6HR PRN PRN Reason: Pain Scale 1 - 3 or fever Stop: 11/03/23 01:06 Hydrocodone Bitart/Acetaminophen (Hydrocodone/Acetaminophen 5-325 Mg Tablet) 1 tab PO Q4H PRN PRN Reason: Pain Scale 4 - 7 Last Admin: 11/03/22 02:14 Dose: 1 tab Albuterol (Albuterol Neb 2.5 Mg/3 Ml Vial.Neb) 2.5 mg INHALATION Q4H PRN PRN Reason: Shortness Of Breath Stop: 11/03/23 02:56 Albuterol (Albuterol Hfa 60 Puff/8 Gram Inhaler) 2 puff INHALATION Q4H PRN PRN Reason: Shortness Of Breath Stop: 11/03/23 02:56 Ascorbic Acid (Ascorbic Acid 500 Mg Tablet) 500 mg PO DAILY [facility] Stop: 11/04/23 08:59 Budesonide/Formoterol Fumarate (Budesonide/Formoterol 160-4.5 Mcg 60 Puff/6 Gm Hfa.Aer.Ad) 2 puff INHALATION BID GERRY Stop: 11/03/23 08:59 Last Admin: 11/03/22 08:36 Dose: 2 puff Carbamazepine (Carbamazepine 200 Mg Tablet) 200 mg PO BID GERRY Stop: 11/03/23 08:59 Carbidopa/Levodopa (Carbidopa/Levodopa 25-100 Mg 1 Tab Tablet) 1 tab PO QHS PRN PRN Reason: Restless Leg(S) Stop: 11/03/23 02:56 Celecoxib (Celecoxib 200 Mg Capsule) 200 mg PO DAILY [facility] Stop: 11/03/23 08:59 Diphenhydramine HCl (Diphenhydramine 25 Mg Capsule) 50 mg PO Q8H PRN PRN Reason: Itching Stop: 11/03/23 02:16 Last Admin: 11/03/22 02:34 Dose: 50 mg Duloxetine HCl (Duloxetine 30 Mg Capsule.Dr) 90 mg PO DAILY [facility] Stop: 11/03/23 08:59 Enoxaparin Sodium (Enoxaparin 40 Mg/0.4 Ml Syringe) 40 mg SUBCUT DAILY@10 [facility] Stop: 11/03/23 09:59 Furosemide (Furosemide 40 Mg Tablet) 40 mg PO BID@0800,1600 [facility] Stop: 11/03/23 07:59 Guaifenesin (Guaifenesin 600 Mg Tab.Er.12h) 600 mg PO BID PRN PRN Reason: Cough Stop: 11/03/23 01:11 Ceftaroline Fosamil (Teflaro) 600 mg in 100 mls @ 200 mls/hr IV Q12H [facility] Liraglutide (Liraglutide 18 Mg/3 Ml Pen.Injctr) 1.8 mg SUBCUT QAM [facility] Stop: 11/03/23 08:59 Loratadine (Loratadine 10 Mg Tablet) 10 mg PO DAILY PRN PRN Reason: Allergic Reaction Stop: 11/03/23 02:56 Non-Formulary Medication (Rimegepant [Nurtec Odt]) 75 mg PO DIRECTED PRN PRN Reason: Migraine Headache Potassium Chloride (Potassium Chloride Er 10 Meq Capsule.Er) 20 meq PO DAILY [facility] Stop: 11/03/23 08:59 Prochlorperazine Maleate (Prochlorperazine Maleate 5 Mg Tablet) 10 mg PO Q8HR PRN PRN Reason: Nausea And Vomiting Stop: 11/03/23 01:06 Sodium Chloride (Sodium Chloride 0.9 % 10 Ml Syringe) 0 ml IV-PUSH PRN PRN PRN Reason: Flush Stop: 11/02/23 21:38 Sodium Chloride (Sodium Chloride 0.9 % 10 Ml Syringe) 0 ml IV-PUSH QSHIFT [facility] Stop: 11/03/23 05:59 Exam Physical Exam Vital Signs: Temp Pulse Resp BP Pulse Ox O2 Del Method 97.6 F 65 16 105/67 97 Room Air 11/03/22 08:00 11/03/22 08:00 11/03/22 08:00 11/03/22 08:00 11/03/22 08:00 11/03/22 08:00 Narrative: Patient sleeping. The nurse and I were talking in the room and I even called the patient's name. Patient would not awaken. Patient's left hand wrapped securely and has Asfhan bandage over it. Results Labs 11/03/22 05:09 11/03/22 05:09 Labs: Laboratory Results - last 24 hr 11/02/22 11/02/22 11/02/22 21:50 21:50 21:50 Corrected WBC 10.2 Uncorrected WBC Count 10.2 RBC 4.55 Hgb 12.7 Hct 36.4 MCV 80.1 MCH 28.0 MCHC 35.0 RDW 13.5 Plt Count 270 MPV 7.1 Neut % (Auto) 59.3 Lymph % (Auto) 30.1 Roane % (Auto) 7.1 Eos % (Auto) 2.9 Baso % (Auto) 0.6 Nucleat RBC Rel Count 0.1 Neut # (Auto) 6.0 Lymph # (Auto) 3.1 Roane # (Auto) 0.7 Eos # (Auto) 0.3 Baso # (Auto) 0.1 Monocyte Dist Width 17.88 ESR 30 H PHA Creatinine Clear 122.84 Sodium 135 L Potassium 3.6 Chloride 102 Carbon Dioxide 24.3 Anion Gap 12.3 BUN 18 Creatinine 0.63 Est GFR (CKD-EPI) > 60.0 Glucose 148 H Lactic Acid 1.3 Calcium 9.2 Total Bilirubin 0.3 AST 17 ALT 14 Alkaline Phosphatase 78 C-Reactive Prot, Quant 0.6 H Total Protein 7.1 Albumin 4.1 Globulin 3.0 Albumin/Globulin Ratio 1.4 11/03/22 11/03/22 05:09 05:09 Corrected WBC 9.1 Uncorrected WBC Count 9.1 RBC 4.18 Hgb 11.7 L Hct 33.6 L MCV 80.3 MCH 27.9 MCHC 34.8 RDW 13.4 Plt Count 250 MPV 7.3 Neut % (Auto) 58.3 Lymph % (Auto) 30.1 Roane % (Auto) 8.3 Eos % (Auto) 2.8 Baso % (Auto) 0.5 Nucleat RBC Rel Count 0.1 Neut # (Auto) 5.3 Lymph # (Auto) 2.7 Roane # (Auto) 0.8 Eos # (Auto) 0.3 Baso # (Auto) 0.0 Monocyte Dist Width ESR PHA Creatinine Clear 145.98 Sodium 136 Potassium 4.2 Chloride 108 H Carbon Dioxide 23.3 Anion Gap 8.9 BUN 13 Creatinine 0.53 L Est GFR (CKD-EPI) > 60.0 Glucose 106 H Lactic Acid Calcium 8.6 Total Bilirubin AST ALT Alkaline Phosphatase C-Reactive Prot, Quant Total Protein Albumin Globulin Albumin/Globulin Ratio A&P - Infectious Disease (1) History of recent surgery: Status: Acute (2) Left hand pain: Status: Acute Plan Patient had an orthopedic procedure in her left hand [facility] about a week ago. She came in secondary to increased pain. White count was normal. She is afebrile. Markers of inflammation are within normal limits. She is being called a cellulitis but from my discussion with Dr. Ku in her documentation this morning no evidence of cellulitis is evident and her pin sitedoes have some mild erythema around its insertion site. Ultimately if this was a significant postoperative infection she would have to go back to her surgeons in [place] to begin with. Blood cultures were drawn though there were no systemic symptoms of infection. The wound culture obtained. Per my discussion with orthopedics with simply placed on oral antibiotics and have her follow-up with her surgeon in [place]. Documented By: Mimi Rodriguez MD 11/03/22 1045 Signed By: <Electronically signed by MD Mimi Rodriguez> 11/03/22 1054 [facility] Work Phone: Evaluation + Plan note No data available for this section [facility] Evaluation note* Diagnosis Sensorineural hearing loss, bilateral- Primary Dizziness Dizziness and giddiness Otalgia of both ears Otalgia, unspecified Ear pressure, bilateral [facility] Diagnosis Otalgia, bilateral- Primary Arthralgia of right temporomandibular joint Arthralgia of temporomandibular joint Sensorineural hearing loss (SNHL) of both ears Tinnitus of both ears Unspecified tinnitus Dizziness Dizziness and giddiness [facility] note[facility] [employer]Nort [employer] Other Evaluation noteNo assessment information available [facility] Work Phone: Evaluation note* Diagnosis Sensorineural hearing loss, bilateral- Primary Dizziness Dizziness and giddiness Right ear pain Otalgia, unspecified [facility] Diagnosis Otalgia, bilateral- Primary Sensorineural hearing loss (SNHL) of both ears Dizziness Dizziness and giddiness [facility]* Diagnosis Otalgia, bilateral- Primary Sensorineural hearing loss (SNHL) of both ears Tinnitus of both ears Unspecified tinnitus Arthralgia of right temporomandibular joint Arthralgia of temporomandibular joint [facility]* Diagnosis Onset Date Resolution Status Cellulitis, wound, post-operative acute [facility] Work Phone: Evaluation note* Diagnosis Onset Date Resolution Status Asthma acute Bipolar 1 disorder acute Cellulitis, wound, post-operative acute History of recent surgery ac [place] Left hand pain acute T2DM (type 2 diabetes mellitus) acute [facility] Work Phone: Evaluation note* Diagnosis Arcus senilis, bilateral- Primary Senile corneal changes Regular astigmatism, bilateral Bilateral presbyopia Presbyopia [facility]* Diagnosis Sensorineural hearing loss (SNHL) of both ears Dizziness Dizziness and giddiness Tinnitus, bilateral Unspecified tinnitus [facility]* Diagnosis Ear pain, bilateral- Primary Sensorineural hearing loss (SNHL) of both ears Tinnitus, bilateral Unspecified tinnitus Dizziness Dizziness and giddiness documented [facility]* Diagnosis Stress incontinence of urine- Primary Stress incontinence, male [facility]* Diagnosis Facet degeneration of lumbar region- Primary Lumbosacral spondylosis without myelopathy PTTD (posterior tibial tendon dysfunction) Other disorders of synovium, tendon, and bursa Morbid obesity (HCC) Morbid obesity Osteoarthritis of 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 Degeneration of lumbar or lumbosacral intervertebral disc Spinal stenosis, lumbar region with neurogenic claudication Lumbar foraminal stenosis Spinal stenosis, lumbar region, without neurogenic claudication Restless legs syndrome Restless legs syndrome (RLS) Disturbance of skin sensation Carpal tunnel syndrome, bilateral Carpal tunnel syndrome H/O total knee replacement, bilateral Status post left foot surgery Myalgia Mylagia and myositis, unspecified Pelvic floor dysfunction Pelvic muscle wasting [facility]* Diagnosis PTTD (posterior tibial tendon dysfunction)- Primary Other disorders of synovium, tendon, and bursa Morbid obesity (HCC) Morbid obesity Osteoarthritis of 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 Degeneration of lumbar or lumbosacral intervertebral disc Spinal stenosis, lumbar region with neurogenic claudication Lumbar foraminal stenosis Spinal stenosis, lumbar region, without neurogenic claudication Facet degeneration of lumbar region Lumbosacral spondylosis without myelopathy Restless legs syndrome Restless legs syndrome (RLS) Disturbance of skin sensation Carpal tunnel syndrome, bilateral Carpal tunnel syndrome H/O total knee replacement, bilateral Status post left foot surgery Myalgia Mylagia and myositis, unspecified [facility]* Diagnosis Stress incontinence of urine- Primary Screening for genitourinary condition Screening for other and unspecified genitourinary condition Overactive bladder Hypertonicity of bladder Other constipation Vaginal pain Unspecified symptom associated with female genital organs [facility]* Diagnosis Type 2 diabetes mellitus without retinopathy ([facility])- Primary Type II or unspecified type diabetes mellitus without mention of complication, not stated as uncontrolled Bilateral presbyopia Presbyopia Dry eye syndrome of bilateral lacrimal glands Tear film insufficiency, unspecified [facility]* Diagnosis Stress incontinence of urine- Primary Overactive bladder Hypertonicity of bladder Urinary tract infection without hematuria, site unspecified Vaginal dryness Other specified symptom associated with female genital organs Kidney stone Calculus of kidney [facility]* Diagnosis 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- Primary Kidney stone Calculus of kidney Urinary tract infection without hematuria, site unspecified [facility] Author Sam Hodges [facility] November 03, 2022 3:34am Note Date/Time November 03, 2022 1:29 am [facility] [address] [place] [address] Hospitalist H&P Signed Patient: Lisa Fernando MR#: [id number] : 1975 Acct:[id number] Age/Sex: 47 / F Adm Date: 3 Loc: Room: [address] [place] [address] Type: ADM IN Attending Dr: Sam Hodges MD Copies to: MD Jorgito Mae DO Paula G Smith, APRN~ HPI DATE OF EXAMINATION: 11/03/22 CHIEF COMPLAINT: surgical site infection HISTORY OF PRESENT ILLNESS: Ms. Fernando is a 47-year-old female with a PMH of T2DM, bipolar disorder, chronic back pain, asthma, recent left thumb interposition and arthroplasty presents to the emergency room today for surgical site infection. Patient seen and evaluated in the ER, resting on the cart quietly. She states that she noticed some redness to her surgical pin site Saturday, noticed drainage from the site today and thought she should be checked out. She does have 2 incision sites with sutures intact, well approximated, no redness noted from the sites. She has a pin to the left thumb, site is reddened, no drainage noted at this time. Patient does touch her hand and surgical sites multiple times during the exam. Instructed patient not to touch the sites. She reports that she was at [facility] because her pain was rubbing on her old soft cast so they took the soft cast off and put her in a brace. She denies fever, chills, statesshe is always cold at home. She does report that she has had shortness of breath and chest pain for 2 weeks because she feels stressed out that worsens when she is up moving around, no respiratory distress noted at this time. She does report vaping sometimes, not daily because it makes her cough. Nondrinker.States this is the second time she has had surgery on this hand. X-ray of the left hand with no signs of osteomyelitis. CBC is unremarkable, ESR30. CMP with sodium 135, glucose 148. CRP 0.6. Blood cultures were drawn and these are pending. She was medicated with 1 and half liter bolus saline, vancomycin, cefepime, Dilaudid, and Zofran. She will be admitted to the MedSurg floor under the care of the hospitalist team for further evaluation and treatment. Review of Systems Review of Systems Review of systems: A 10 point review of systems was obtained, negative unless noted in the HPI or below. [facility] Vaccinated for COVID-19?: Yes Medical History (Updated 11/03/22 @ 01:35 by Rhiannon Fernando APRN) Asthma Bipolar 1 disorder Bronchitis Chronic back pain Degenerative disc disease Depression Diabetes DJD (degenerative joint disease) Episiotomy pain repair Kidney stones Migraine Overactive bladder RLS (restless legs syndrome) Surgical History H/O arthroscopic knee surgery right H/O lithotripsy H/O oral surgery History of carpal tunnel release of both wrists History of hand surgery removed a cyst, removed a bone History of hysterectomy History of knee surgery left Hx of cholecystectomy Hx of tonsillectomy Knee joint replacement status bilateral Previous section Family History Father Diabetes Mother Hypertension Son ADHD Social History Smoking Status: Current some day smoker Tobacco Type: e-cigarettes Substance Use Type: None Substance Abuse Comment: etoh occasionally Social History Comments: son age 15 Meds Medications and Allergies Allergies aloe vera Allergy (Verified 11/02/22 21:39) Unknown Reaction azithromycin Allergy (Verified 11/02/22 21:39) Rash, itching baclofen Allergy (Verified 11/02/22 21:39) Unknown Reaction ciprofloxacin Allergy (Verified 11/02/22 21:39) Unknown Reaction cyclobenzaprine [From Flexeril] Allergy (Verified 11/02/22 21:39) Hives gabapentin [From Neurontin] Allergy (Verified 11/02/22 21:39) Unknown Reaction menthol Allergy (Verified 11/02/22 21:39) Unknown Reaction naproxen Allergy (Verified 11/02/22 21:39) Rash Penicillins Allergy (Verified 11/02/22 21:39) Hives topiramate [From Topamax] Allergy (Verified 11/02/22 21:39) Hives tramadol [From Ultram] Allergy (Verified 11/02/22 21:39) Unknown Reaction vitamin E (d-alpha tocopherol) Allergy (Verified 11/02/22 21:39) Unknown Reaction cephalexin Adverse Reaction (Verified 11/02/22 21:39) Nausea morphine Adverse Reaction (Verified 11/02/22 21:39) Unknown Reaction sumatriptan [From Imitrex] Adverse Reaction (Verified 11/02/22 21:39) Gastrointestinal Upset Home Medications carbidopa 25 mg-levodopa 100 mg tablet (Sinemet) 1 tab PO QHS PRN Restless Leg(S) 05/15/17 [History Confirmed 11/03/22] potassium chloride 10 mEq capsule,extended release 20 meq PO DAILY hypokalemia 06/26/19 [History Confirmed 11/03/22] albuterol sulfate 2.5 mg/3 mL (0.083 %) solution for nebulization 2.5 mg inhalation Q4H PRN Shortness Of Breath 09/21/19 [History Confirmed 11/03/22] albuterol sulfate 90 mcg/actuation aerosol inhaler 2 puff inhalation Q4H PRN Shortness Of Breath 09/21/19 [History Confirmed 11/03/22] furosemide 40 mg tablet 40 mg PO BID leg edema 01/21/20 [History Confirmed 11/03/22] ibuprofen 800 mg tablet 800 mg PO TID PRN Pain 03/20/21 [History Confirmed 11/03/22] liraglutide 0.6 mg/0.1 mL (18 mg/3 mL) subcutaneous pen injector (Victoza 3- Arden)1.8 mg subcut QAM 03/20/21 [History Confirmed 11/03/22] rimegepant 75 mg disintegrating tablet (Nurtec ODT) 75 mg PO DIRECTED PRN Migraine Headache 03/20/21 [History Confirmed 11/03/22] duloxetine 30 mg capsule,delayed release 90 mg PO DAILY 09/04/21 [History Confirmed 11/03/22] albuterol sulfate 90 mcg/actuation breath activated powder inhaler 1 inh inhalation Q6H PRN shortness of breath or wheezing 7 days #1 ea 06/14/22 [Rx Confirmed 11/03/22] ibuprofen 600 mg tablet 600 mg PO Q8H PRN pain #20 tabs 10/20/22 [Rx Confirmed 11/03/22] budesonide-formoterol HFA 160 mcg-4.5 mcg/actuation aerosol inhaler (Symbicort) 2 puff inhalation BID 11/03/22 [History Confirmed 11/03/22] carbamazepine 200 mg tablet 200 mg PO BID 11/03/22 [History Confirmed 11/03/22] celecoxib 200 mg capsule 200 mg PO DAILY 11/03/22 [History Confirmed 11/03/22] clobetasol 0.05 % shampoo 1 applic topical USEASDIRECTD 11/03/22 [History Confirmed 11/03/22] cyanocobalamin (vitamin B-12) 1,000 mcg tablet 1,000 mcg PO DAILY 11/03/22 [History Confirmed 11/03/22] estradiol 0.01% (0.1 mg/gram) vaginal cream 1 applic vaginal QMWF 11/03/22 [History Confirmed 11/03/22] loratadine 10 mg tablet 10 mg PO DAILY PRN Allergic Reaction 11/03/22 [History Confirmed 11/03/22] Exam Physical Exam Vital Signs: Temp Pulse Resp BP Pulse Ox O2 Del Method 98.7 F 70 20 124/51 L 97 Room Air 11/02/22 23:52 11/02/22 23:52 11/02/22 23:52 11/02/22 23:52 11/02/22 23:52 11/02/22 23:52 Narrative: CONST- Appears well -developed and well nourished. HEAD - Normocephalic and atraumatic EENT-Sclera nonicteric, conjunctive are non-erythemic, moist oral mucosa, pharynx clear, poor dentition NECK-Supple, no cervical lymphadenopathy CARDIAC-normal rate, regular rhythm, S1 & S2. PULM-diminished without wheeze or rhonchi, RA, no accessory muscle use or cough noted ABD - Soft. Bowel sounds are normal. No distention. No tenderness EXTREM- generalized edema BLE calves, nontender, Sutures dry and intact to L hand and forearm, skin well approximated, pin site to L hand reddened, swelling noted to L hand and forearm SKIN- W/D good turgor MS- MAEX3 spontaneously with equal with equal strength, weakness and inability to use Left hand/arm due to surgery NEURO- A&Ox3 speech clear and tongue midline, equal facial symmetry, no focal motor deficits PSYCH-Mood, affect, and behavior appropriate Results Lab Results Labs: Laboratory Last Values Corrected WBC 10.2 X10E3/uL (3.8-11.6) 11/02/22 21:50 Uncorrected WBC Count 10.2 x10E3/uL (3.8-11.6) 11/02/22 21:50 RBC 4.55 X10E6/uL (3.60-5.00) 11/02/22 21:50 Hgb 12.7 g/dL (11.8-15.4) 11/02/22 21:50 Hct 36.4 % (34.0-46.4) 11/02/22 21:50 MCV 80.1 fl (80-100) 11/02/22 21:50 MCH 28.0 pg (24.7-34.3) 11/02/22 21:50 MCHC 35.0 g/dL (32.0-35.0) 11/02/22 21:50 RDW 13.5 % (11.9-15.3) 11/02/22 21:50 Plt Count 270 x10E3/uL (150-450) 11/02/22 21:50 MPV 7.1 fl (6.3-10.7) 11/02/22 21:50 Neut % (Auto) 59.3 % (.) 11/02/22 21:50 Lymph % (Auto) 30.1 % (.) 11/02/22 21:50 Roane % (Auto) 7.1 % (.) 11/02/22 21:50 Eos % (Auto) 2.9 % (.) 11/02/22 21:50 Baso % (Auto) 0.6 % (.) 11/02/22 21:50 Nucleat RBC Rel Count 0.1 /100 WBC (0-0.5) 11/02/22 21:50 Neut # (Auto) 6.0 x10E3/uL (1.8-7.7) 11/02/22 21:50 Lymph # (Auto) 3.1 x10E3/uL (1.00-4.8) 11/02/22 21:50 Roane # (Auto) 0.7 x10E3/uL (0.0-0.8) 11/02/22 21:50 Eos # (Auto) 0.3 x10E3/uL (0.0-0.45) 11/02/22 21:50 Baso # (Auto) 0.1 x10E3/uL (0.0-0.2) 11/02/22 21:50 Monocyte Dist Width 17.88 % (0.00-20.00) 11/02/22 21:50 ESR 30 mm/hr (0-19) H 11/02/22 21:50 PHA Creatinine Clear 122.84 11/02/22 21:50 Sodium 135 mmol/L (136-145) L 11/02/22 21:50 Potassium 3.6 mmol/L (3.5-5.1) 11/02/22 21:50 Chloride 102 mmol/L (98-107) 11/02/22 21:50 Carbon Dioxide 24.3 mmol/L (21.0-31.0) 11/02/22 21:50 Anion Gap 12.3 mEq/L (6.0-15.0) 11/02/22 21:50 BUN 18 mg/dL (7-25) 11/02/22 21:50 Creatinine 0.63 mg/dL (0.60-1.20) 11/02/22 21:50 Est GFR (CKD-EPI) > 60.0 mL/Min 11/02/22 21:50 Glucose 148 mg/dL (70-100) H 11/02/22 21:50 Lactic Acid 1.3 mmol/L (0.5-2.2) 11/02/22 21:50 Calcium 9.2 mg/dL (8.6-10.3) 11/02/22 21:50 Total Bilirubin 0.3 mg/dl (0.3-1.0) 11/02/22 21:50 AST 17 U/L (13-39) 11/02/22 21:50 ALT 14 U/L (7-52) 11/02/22 21:50 Alkaline Phosphatase 78 U/L (34-104) 11/02/22 21:50 C-Reactive Prot, Quant 0.6 mg/dL (0.0-0.5) H 11/02/22 21:50 Total Protein 7.1 gm/dL (6.4-8.9) 11/02/22 21:50 Albumin 4.1 gm/dL (3.5-5.7) 11/02/22 21:50 Globulin 3.0 gm/dL 11/02/22 21:50 Albumin/Globulin Ratio 1.4 11/02/22 21:50 A&P - Hospitalist Assessment/Plan (1) Cellulitis, wound, post-operative: (2) T2DM (type 2 diabetes mellitus): (3) Bipolar 1 disorder: (4) Asthma: Plan Cellulitis to left hand surgical site ? Blood cultures pending ? Hibiclens to site 3 times a day, keep site clean and dry ? Start Teflaro?pharmacy to dose ? Patient should wear left wrist brace and keep site covered ? Consult ID ? Hydrocodone as needed for pain Chronic conditions T2DM?fingersticks ACHS, resume home meds once confirmed Bipolar 1 disorder and depression?resume home meds once confirmed Asthma?resume home meds?inhalers once confirmed DVT PPx?SCDs, enoxaparin CODE STATUS?full code as discussed with patient Diet order?1800 ADA Attending attestation: Patient was personally seen by me on the day of encounter. I reviewed her history and performed shi elements of exam and formulated the plan of care and confirmed the nurse practitioners note above. Plan of care reflects my direct input. Patient presents with left hand infection with hardware in place and surrounding cellulitis and purulent drainage. Transfer refused from [facility] where the procedure was performed. Will initiate patient on IV Teflaro, consult ID for their assessment. Hibiclens washes 3 times daily as recommended by our orthopedics and surgeon on-call from [facility]. Given the severity of the hand cellulitis, and possible deeper infection, will place patient as inpatient status as she will likely require more than 2 midnights for improvement and stabilization of hand infection and to determine a plan for antibiotic therapy and surgery follow-up on discharge. Documented By: Rhiannon Fernando APRN 11/03/22 0117 Signed By: <Electronically signed by TODD Fernando> 11/03/22 0316 <Electronically signed by Sam Hodges MD> 11/03/22 0334 [facility] Work Phone: History general Narrative - Reported* Type Description Date Medical History bronchitis Medical History asthma Medical History NIDDM II Medical History restless leg syndrome Medical History djd Medical History Bi-Polar Medical History MIGRAINES Surgical History carpal tunnel bilateral Surgical History tonsillectomy Surgical History Surgical History episiotomy repair Surgical History cholecystectomy Surgical History lithotripsy Surgical History arthroscopic knee surgery-right Surgical History oral surgery Surgical History right tkr Surgical History knee surgery-left 03/2019 Surgical History hysterectomy Surgical History left tkr 11/2020 Surgical History breast lump removed, left 03/24 21 Hospitalization History see surgical hx [email or web address] Other History general Narrative - Reported* Type Description Date Medical History bronchitis Medical History asthma Medical History NIDDM II Medical History restless leg syndrome Medical History djd Medical History Bi-Polar Medical History MIGRAINES Surgical History carpal tunnel bilateral Surgical History tonsillectomy Surgical History Surgical History episiotomy repair Surgical History cholecystectomy Surgical History lithotripsy Surgical History arthroscopic knee surgery-right Surgical History oral surgery Surgical History right tkr Surgical History knee surgery-left 03/2019 Surgical History hysterectomy Surgical History left tkr 11/2020 Surgical History breast lump removed, left 03/24 21 Hospitalization History see surgical hx Hospitalization History SOB cough pneumonia [facility] 05/2021 [employer] [facility] [email or web address] Other [employer] general Narrative - Reported* Type Description Date Medical History bronchitis Medical History asthma Medical History NIDDM II Medical History restless leg syndrome Medical History djd Medical History Bi-Polar Medical History MIGRAINES Medical History reactive airway disease Surgical History carpal tunnel bilateral Surgical History tonsillectomy Surgical History Surgical History episiotomy repair Surgical History cholecystectomy Surgical History lithotripsy Surgical History arthroscopic knee surgery-right Surgical History oral surgery Surgical History right tkr Surgical History knee surgery-left 03/2019 Surgical History hysterectomy Surgical History left tkr 11/2020 Surgical History breast lump removed, left 03/24 21 Hospitalization History see surgical hx Hospitalization History SOB cough pneumonia [facility] 05/2021 [id number] Other history general Narrative - Reported* Type Description Date Medical History bronchitis Medical History asthma Medical History NIDDM II Medical History restless leg syndrome Medical History djd Medical History Bi-Polar Medical History MIGRAINES Medical History reactive airway disease Surgical History carpal tunnel bilateral Surgical History tonsillectomy Surgical History Surgical History episiotomy repair Surgical History cholecystectomy Surgical History lithotripsy Surgical History arthroscopic knee surgery-right Surgical History oral surgery Surgical History right tkr Surgical History knee surgery-left 03/2019 Surgical History hysterectomy Surgical History left tkr 11/2020 Surgical History breast lump removed, left 03/24 21 Surgical History Wrist Surgery Hospitalization History see surgical hx Hospitalization History SOB cough pneumonia [facility] 05/2021 [id number] Other history general Narrative - Reported* Type Description Date Medical History bronchitis Medical History asthma Medical History NIDDM II Medical History restless leg syndrome Medical History djd Medical History Bi-Polar Medical History MIGRAINES Medical History reactive airway disease Medical History RSV Surgical History carpal tunnel bilateral Surgical History tonsillectomy Surgical History Surgical History episiotomy repair Surgical History cholecystectomy Surgical History lithotripsy Surgical History arthroscopic knee surgery-right Surgical History oral surgery Surgical History right tkr Surgical History knee surgery-left 03/2019 Surgical History hysterectomy Surgical History left tkr 11/2020 Surgical History breast lump removed, left 03/24 21 Surgical History Wrist Surgery Hospitalization History see surgical hx Hospitalization History SOB cough pneumonia [facility] 05/2021 Hospitalization History [facility] bronchitis, RSV 05/13/22 [email or web address] Other Hospital Discharge instructions Additional Instructions Use Zofran as needed for nausea, Bentyl for abdominal cramping and pain, he can also use naproxen or ibuprofen for pain Stay well-hydrated, drink Pedialyte, Gatorade G2 Slowly reintroduce food, using BRAT diet consisting of Bread, Rice, Applesauce, Whitecone. Do not eat spicy or greasy foods, fast foods. Return to the emergency department for fevers, worsening abdominal pain, continued vomiting, lightheadedness, blood [facility] Work Phone: Hospital Discharge instructions Additional Instructions Today in emergency department no antibiotics are needed for your ear You may be beneficial with Zyrtec or Claritin [id number] daily Tylenol or Motrin if needed for pain Follow-up with your ENT call tomorrow for appointment Return here if any problems persist or worsen including fever, chills, increased pain, shortness of breath chest pain or any other concerns.[facility] Work Phone: Hospital Discharge instructions No data available for this section [facility] Hospital Discharge instructions Additional Instructions You are passing some tiny stones from lithotripsy. These are very small and should pass quickly. Obviously I do want you to follow-up with Dr. Torres. If there are problems I want you to come back here. In terms of the rash on your back, that is either a reaction to what ever was placed on your skin during the procedure, or less likely but still possible a minor burn from the procedure. Keep this covered with some antibiotic ointment and it should heal without problems. [facility] Work Phone: Hospital Discharge instructionsAmbulatory Orders* DME Home Medical Equipment Time Frame: 1 Day, Location: Determined By Patient Additional Instructions Continue to monitor glucose levels as before. Orthopedic surgeon recommendations for left thumb: *Wash or soak left hand and thumb in large basing with water and Chlorhexadine gluconate soap 2-3 times daily. After washing or soaking 10 minutes, dab soap directly onto K wire and area of surrounding skin. Cover with Adaptix, fluff gauze 4x4, leonila or kerlex wrap, and AFSHAN bandage. *Continue mobilization with splint as beforeL[facility] Work Phone: Hospital Discharge instructions Additional Instructions Take Tylenol as needed for mild to moderate pain, take oxycodone as prescribed for severe pain. Take Flomax to help pass the stone. Increase your intake of fluids. Take Phenergan as prescribed for nausea vomiting. Follow-up with Dr. Torres as scheduled for lithotripsy. Return if you have fevers or chills or intractable nausea vomiting. Follow-up at [facility] for ongoing management of your pin site infection as scheduled. Take Bactrim as prescribed.[facility] Work Phone: Hospital Discharge instructions Additional Instructions Follow-up with your primary care doctor Return to ED if develop worsening symptoms or concernsL[facility] Work Phone: Hospital Discharge instructions Additional Instructions Take steroids as directed Apply hydrocortisone cream as directed Avoid any changes in your detergent or soap Use soap without any deodorant Handwashing Cool compresses to the area and avoid scratching Return here if any problems persist or worsen as may you discussedLakehealth [facility] Work Phone: Hospital Discharge instructions Additional Instructions Take Relafen or Tylenol if needed for pain Hold your Motrin Keflex for muscle spasms You cannot work or drive when taking Zanaflex Lidocaine patches as directed Return here if any problems persist or worsen Is important to follow-up with neurology/pain management Take antibiotic as instructed until goneLake[facility] Work Phone: Progress note No data available for this section [facility] Progress note Author Walter Zhang [facility] November 03, 2022 4:17pm Note Date/Time November 03, 2022 3:23 pm [facility] [address] [place], [place] [id number] Hospitalist Progress Note Signed Patient: Lisa Fernando MR#: [id number] : 1975 Acct:[id number] Age/Sex: 47 / F Adm Date: 3 Loc: Room: [address] [place] [address] Type: ADM IN Attending Dr: Walter Zhang MD Copies to: ~ Date of Service: 11/03/2022 Subjective Subjective Narrative: Patient seen and examined. She appears still restless, complaining of itching in her left thumb from the surgery but denies any pain. States that she has a bad habit of scratching the wound and realizes that she should not do it. She is otherwise hemodynamically stable and is afebrile. Exam Physical Exam Vital Signs: Temp Pulse Resp BP Pulse Ox O2 Del Method 97.6 F 67 16 111/74 97 Room Air 11/03/22 12:00 11/03/22 12:00 11/03/22 12:00 11/03/22 12:00 11/03/22 12:00 11/03/22 12:00 Narrative: General: Awake, alert, oriented x3 not in acute distress HEENT: Normocephalic, atraumatic, PERRLA, normal mucosa Cardiovascular: Regular rate and rhythm , S1-S2 heard, no murmurs or gallops Lungs: No wheezing or rhonchi heard Gastrointestinal: Soft, nontender, bowel sounds heard Extremities: No edema, left thumb dressing dry and intact Neurological: no sensory or motor deficit Skin: Dry and warm, no rashes or lesions Psych: Normal mood and affect Objective Lab Results 11/03/22 05:09 11/03/22 05:09 Meds Allergies and Active Meds Allergies aloe vera Allergy (Verified 11/02/22 21:39) Unknown Reaction azithromycin Allergy (Verified 11/02/22 21:39) Rash, itching baclofen Allergy (Verified 11/02/22 21:39) Unknown Reaction ciprofloxacin Allergy (Verified 11/02/22 21:39) Unknown Reaction cyclobenzaprine [From Flexeril] Allergy (Verified 11/02/22 21:39) Hives gabapentin [From Neurontin] Allergy (Verified 11/02/22 21:39) Unknown Reaction menthol Allergy (Verified 11/02/22 21:39) Unknown Reaction naproxen Allergy (Verified 11/02/22 21:39) Rash Penicillins Allergy (Verified 11/02/22 21:39) Hives topiramate [From Topamax] Allergy (Verified 11/02/22 21:39) Hives tramadol [From Ultram] Allergy (Verified 11/02/22 21:39) Unknown Reaction vitamin E (d-alpha tocopherol) Allergy (Verified 11/02/22 21:39) Unknown Reaction cephalexin Adverse Reaction (Verified 11/02/22 21:39) Nausea morphine Adverse Reaction (Verified 11/02/22 21:39) Unknown Reaction sumatriptan [From Imitrex] Adverse Reaction (Verified 11/02/22 21:39) Gastrointestinal Upset Active Meds: Active Medications Generic Name Dose Route Start Last Admin Trade Name Freq PRN Reason Stop Dose Admin Acetaminophen 1,000 mg 11/03/22 01:07 Acetaminophen 500 Mg Tablet PO 11/03/23 01:06 Q6HR PRN Pain Scale 1 - 3 or fever Hydrocodone Bitart/Acetaminophen 1 tab 11/03/22 01:07 11/03/22 02:14 Hydrocodone/Acetaminophen 5-325 Mg Tablet PO 1 tab Q4H PRN Administration Pain Scale 4 - 7 Albuterol 2.5 mg 11/03/22 02:57 Albuterol Neb 2.5 Mg/3 Ml Vial.Neb INHALATION 11/03/23 02:56 Q4H PRN Shortness Of Breath Albuterol 2 puff 11/03/22 02:57 Albuterol Hfa 60 Puff/8 Gram Inhaler INHALATION 11/03/23 02:56 Q4H PRN Shortness Of Breath Ascorbic Acid 500 mg 11/04/22 09:00 Ascorbic Acid 500 Mg Tablet PO 11/04/23 08:59 DAILY GERRY Budesonide/Formoterol Fumarate 2 puff 11/03/22 09:00 11/03/22 08:36 Budesonide/Formoterol 160-4.5 Mcg 60 Puff/6 Gm Hfa.Aer.Ad INHALATION 11/03/23 08:59 2 puff BID GERRY Administration Carbamazepine 200 mg 11/03/22 09:00 11/03/22 10:40 Carbamazepine 200 Mg Tablet PO 11/03/23 08:59 200 mg BID GERRY Administration Carbidopa/Levodopa 1 tab 11/03/22 02:57 Carbidopa/Levodopa 25-100 Mg 1 Tab Tablet PO 11/03/23 02:56 QHS PRN Restless Leg(S) Celecoxib 200 mg 11/03/22 09:00 11/03/22 10:40 Celecoxib 200 Mg Capsule PO 11/03/23 08:59 200 mg DAILY GERRY Administration Diphenhydramine HCl 50 mg 11/03/22 02:17 11/03/22 02:34 Diphenhydramine 25 Mg Capsule PO 11/03/23 02:16 50 mg Q8H PRN Administration Itching Duloxetine HCl 90 mg 11/03/22 09:00 Duloxetine 30 Mg Capsule.Dr PO 11/03/23 08:59 DAILY GERRY Enoxaparin Sodium 40 mg 11/03/22 10:00 11/03/22 11:24 Enoxaparin 40 Mg/0.4 Ml Syringe SUBCUT 11/03/23 09:59 Not Given DAILY@10 GERRY Furosemide 40 mg 11/03/22 08:00 11/03/22 15:08 Furosemide 40 Mg Tablet PO 11/03/23 07:59 40 mg BID@0800,1600 GERRY Administration Guaifenesin 600 mg 11/03/22 01:12 Guaifenesin 600 Mg Tab.Er.12h PO 11/03/23 01:11 BID PRN Cough Liraglutide 1.8 mg 11/03/22 09:00 11/03/22 10:41 Liraglutide 18 Mg/3 Ml Pen.Injctr SUBCUT 11/03/23 08:59 1.8 mg QAM GERRY Administration Loratadine 10 mg 11/03/22 02:57 Loratadine 10 Mg Tablet PO 11/03/23 02:56 DAILY PRN Allergic Reaction Non-Formulary Medication 75 mg 11/03/22 02:57 Rimegepant [Nurtec Odt] PO DIRECTED PRN Migraine Headache Potassium Chloride 20 meq 11/03/22 09:00 11/03/22 10:40 Potassium Chloride Er 10 Meq Capsule.Er PO 11/03/23 08:59 20 meq DAILY GERRY Administration Prochlorperazine Maleate 10 mg 11/03/22 01:07 Prochlorperazine Maleate 5 Mg Tablet PO 11/03/23 01:06 Q8HR PRN Nausea And Vomiting Sodium Chloride 0 ml 11/02/22 21:39 Sodium Chloride 0.9 % 10 Ml Syringe IV-PUSH 11/02/23 21:38 PRN PRN Flush Sodium Chloride 0 ml 11/03/22 06:00 11/03/22 15:08 Sodium Chloride 0.9 % 10 Ml Syringe IV-PUSH 11/03/23 05:59 10 ml QSHIFT GERRY Administration Trimethoprim/Sulfamethoxazole 1 tab 11/03/22 11:30 11/03/22 15:07 Sulfamethoxazole/Tmp 800-160mg 1 Tab Tablet PO 11/10/22 11:29 1 tab BID GERRY Administration A&P - Hospitalist Assessment/Plan (1) Cellulitis, wound, post-operative: (2) T2DM (type 2 diabetes mellitus): (3) Bipolar 1 disorder: (4) Asthma: Plan Patient is complaining of discomfort in her left thumb and itching but denies any actual pain. She claims surgical wound has been itching and she is trying to scratch it and realizes that she should not have done that. Orthopedic on board, feels that patient has mild erythema with no significant drainage and does not need any intervention, recommended local wound care and prophylactic antibiotics and wound healing protocol Infectious disease on board, recommended oral antibiotics and follow-up with herhand surgeon in [place] Patient is comfortable going home Reiterated the importance of keeping the wound clean. Will order Benadryl for itching Patient will be discharged home on oral antibiotics Patient cannot go to work until cleared by her hand surgeon She is being discharged today. Documented By: Walter Zhang MD 11/03/22 1523 Signed By: <Electronically signed by Walter Zhang MD> 11/03/22 1617 [facility] Work Phone: Reason for Referral Specialty Diagnoses / Procedures Referred By Jud t Referred To Contact MR IMAGING Diagnoses Sensorineural hearing loss (SNHL) of both ears Tinnitus of both ears Procedures MRI BRAIN WO/W IVCON MRI BRAIN BRAIN STEM W/O W/CONTRAST MATERIAL Nasra Lo PA-C [address] [place] [address] Mr Imaging Referral ID Status Reason Start Date Expiration Date Visits Requested Visits Authorized [id number] Pending Review Auto-Generat ed Referral 10/31/2021 11/30/2022 1 1 Reason * 08/23 ear lesa n for over 1 month Diagnosis 1 Otalgia of both ears (H92.03) Referral Organization [facility] Golden [place] niharika Vee Referring Provider First Name Jorgito Referring Provider Last Name [facility] Referring Provider Specialty [facility] Referred Organization [facility] Referred Provider Rosario Payton Paul Referred Address ,[place], [place] Referred Provider Specialty Otolaryngolo gy Referral Priority Routine General Notes Naina Calvo 07/2022 09:52:40 AM >Spoke with office, Dr. Payton does accept pt insurance. referral sent p2p Reason * 08/23 itchy s calp, dandruff Diagnosis 1 Dandruff in adult (L 21.0) Referral Organization [facility] Family Jalendeven Vee Referring Provider First Name Jorgito Referring Provider Last Name [facility] Referring Provider Specialty [facility] Referred Organization [facility] Referred Provider Niharika Jones Thomas Referred Address ,[place], [place] Referred Provider Specialty Dermatology Referral Priority Routine General Notes Naian Calvo 07/2022 09:47:37 AM >spoke with Dr. Jones office, they do accept pt insurance, referral sent p2p sent successful per log Reason * Waiting for appt variocose veins-painful Diagnosis 1 Varicose veins of edgardo th lower extremities, unspecified whether complicated (I83.93) Referral Organization [facility] Family Jalendeven Vee Referring Provider First Name Jorgito Referring Provider [facility] Name [facility] Referring Provider Specialty [facility] Referred Organization [facility] Vascular Surge ry Referred Provider Travis Alexis Referred Address [address] [facility],[address],[place], [place],[address] Referred Provider Specialty Vascular Bebo kimmy Referral Priority Routine General Notes Naina Calvo 02:22:35 PM > referral received and sent p2p Reason * 04/13 microsc opic hematuria x 2 Diagnosis 1 Microscopic hematuri a (R31.29) Referral Organization [facility] Elsa Vee Referring Provider First Name Jorgito Referring Provider Last Name Daniel Referring Provider Specialty Family Medi cine Referred Organization [facility] Referred Provider ALYCESUGEY M Referred Address [address] [facility] [address],[place], [place],[address] Referred Provider Specialty Urology Referral Priority Routine General Notes Naina Calvo 08/2021 01:46:26 PM >referral received and faxed Specialty Diagnoses / Procedures Referred By Contac t Referred To Contact CT IMAGING Diagnoses Sensorineural hearing loss (SNHL) of both ears Dizziness Tinnitus, bilateral Procedures CT TEMP BONES WO IVCON CT ORBIT SELLA/POST FOSSA/EAR W/O CONTRAST Nasra Taylor PA-C [address] [place] [address] Ct [facility] [place] [address] Referral ID Status Reason Start Date Expiration Date V isits Requested Visits Authorized [id number] Closed Auto-Generate d Referral 08/27/2023 09/25/2024 1 1 Specialty Diagnoses / Procedures Referred By Contac t Referred To Contact Procedures HEARING TEST/AUDIOGRAM COMPRE AUDIOMETRY THRESHOLD EVAL SP RECOGNIJ Otol Aud Main [address] [address] [facility] [address] [place] [address] Referral ID Status Reason Start Date Expiration Date Visits Requested Visits Authorized [id number] Pending Review Auto-Generat ed Referral 10/08/2023 10/08/2024 1 1 Specialty Diagnoses / Procedures Referred By Contac t Referred To Contact Urology Diagnoses Stress incontinence of urine Procedures CONSULT TO UROLOGY OFFICE/OUTPATIENT [facility] 60 MINUTES Carter Hall MD [address] [facility] [address] Jacqui Castro MD [address] [place] [address] Referral ID Status Reason Start Date Expiration Date Visits Requested Visits Authorized [id number] Authorized PCP Requested Referral 10/11/2023 10/10/2024 1 1 Specialty Diagnoses / Procedures Referred By Contac t Referred To Contact [facility] Diagnoses PTTD (posterior tibial tendon dysfunction) Morbid obesity (HCC) Osteoarthritis of 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 Spinal stenosis, lumbar region with neurogenic claudication Lumbar foraminal stenosis Facet degeneration of lumbar region Restless legs syndrome Disturbance of skin sensation Carpal tunnel syndrome, bilateral H/O total knee replacement, bilateral Status post left foot surgery Myalgia Procedures CONSULT TO PHYSICAL THERAPY PHYSICAL THERAPY EVALUATION HIGH COMPLEX 45 MINS Melony Alamo PA-C [address] [address] [facility] [place] [address] [place] [address] Referral ID Status Reason Start Date Expiration Date Visits Requested Visits Authorized [id number] Authorized Auto-Generat ed Referral 08/05/2023 08/04/2024 30 30 Specialty Diagnoses / Procedures Referred By Contac t Referred To Contact XR IMAGING Diagnoses Spinal stenosis, lumbar region with neurogenic claudication Lumbar foraminal stenosis Facet degeneration of lumbar region Restless legs syndrome Disturbance of skin sensation Procedures XR LUMBAR MOTION 4V AP/LAT/ FLEX/EXT RADEX SPINE LUMBOSACRAL MINIMUM 4 VIEWS Melony Alamo PA-C [address] [address] [place] [address] Referral ID Status Reason Start Date Expiration Date V isits Requested Visits Authorized [id number] Closed Auto-Generate d Referral 10/15/2023 11/13/2024 1 1 Chief Complaint and Reason for Visit Chief Complaint R22.1 R82.90 Obesity R31.29 Chief Complaint R22.1 R82.90 Obesity R31.29 d49.3 Chief Complaint R82.90 Obesity R31.29 d49.3 I83.813 Chief Complaint Obesity R31.29 d49.3 I83.813 r31.21 Chief Complaint R31.29 d49.3 I83.813 r31.21 E11.9 E66.9 E88.81 E53.8 E78.2 cough, SOB V/D, Abd pain, Fatigue, Weakness Chief Complaint d49.3 I83.813 r31.21 E11.9 E66.9 E88.81 E53.8 E78.2 cough, SOB V/D, Abd pain, Fatigue, Weakness R05.9 Chief Complaint I83.813 r31.21 E11.9 E66.9 E88.81 E53.8 E78.2 cough, SOB V/D, Abd pain, Fatigue, Weakness R05.9 R09.81 Chief Complaint r31.21 E11.9 E66.9 E88.81 E53.8 E78.2 cough, SOB V/D, Abd pain, Fatigue, Weakness R05.9 R09.81 runny nose, cough r05.1 labs Chief Complaint r31.21 E11.9 E66.9 E88.81 E53.8 E78.2 cough, SOB V/D, Abd pain, Fatigue, Weakness R05.9 R09.81 runny nose, cough r05.1 labs Obesity Rt Ear Pain Chief Complaint E11.9 E66.9 E88.81 E 53.8 E78.2 cough, SOB V/D, Abd pain, Fatigue, Weakness R05.9 R09.81 runny nose, cough r05.1 labs Obesity Rt Ear Pain Chief Complaint V/D, Abd pain, Fatig ue, Weakness R05.9 R09.81 runny nose, cough r05.1 labs Obesity Rt Ear Pain M47.817 n20.0 Chief Complaint V/D, Abd pain, Fatig ue, Weakness R05.9 R09.81 runny nose, cough r05.1 labs Obesity Rt Ear Pain M47.817 n20.0 XRAY Chief Complaint R09.81 runny nose, cough r05.1 labs Obesity Rt Ear Pain M47.817 n20.0 XRAY R05.8 n20.0 z01.84 z86.19 Chief Complaint r05.1 labs Rt Ear Pain M47.817 n20.0 XRAY R05.8 n20.0 z01.84 z86.19 Obesity Surgical site irritation Chief Complaint r05.1 labs Rt Ear Pain M47.817 n20.0 XRAY R05.8 n20.0 z01.84 z86.19 Obesity Surgical site irritation n20.0 Chief Complaint labs Rt Ear Pain M47.817 n20.0 XRAY R05.8 n20.0 z01.84 z86.19 Obesity Surgical site irritation n20.0 E11.9 R Hand Pain Reason for Visit Cellulitis, wound, p ost-operative Chief Complaint labs Rt Ear Pain M47.817 n20.0 XRAY R05.8 n20.0 z01.84 z86.19 Obesity Surgical site irritation n20.0 E11.9 R Hand Pain Reason for Visit Asthma Bipolar 1 disorder Cellulitis, wound, post-operative History of recent surgery Left hand pain T2DM (type 2 diabetes mellitus) Chief Complaint labs Rt Ear Pain M47.817 n20.0 XRAY R05.8 n20.0 z01.84 z86.19 Obesity Surgical site irritation n20.0 E11.9 R Hand Pain lft flank pain Reason for Visit Asthma Bipolar 1 disorder Cellulitis, wound, post-operative History of recent surgery Left hand pain T2DM (type 2 diabetes mellitus) Chief Complaint R Hand Pain lft flank pain M47.817 Headache, R fingers sore NKI Reason for Visit Asthma Bipolar 1 disorder Cellulitis, wound, post-operative History of recent surgery Left hand pain T2DM (type 2 diabetes mellitus) Chief Complaint R Hand Pain lft flank pain M47.817 Headache, R fingers sore NKI Headache Reason for Visit Asthma Bipolar 1 disorder Cellulitis, wound, post-operative History of recent surgery Left hand pain T2DM (type 2 diabetes mellitus) Chief Complaint M47.817 Headache, R fingers sore NKI Headache rash Chief Complaint M47.817 Headache, R fingers sore NKI Headache rash Obesity Z47.1;Z96.652;E11.9;E53.8 Chief Complaint M47.817 Headache, R fingers sore NKI Headache rash Obesity Z47.1;Z96.652;E11.9;E53.8 cough chest pain ears hurt Chief Complaint M47.817 Headache, R fingers sore NKI Headache rash Obesity Z47.1;Z96.652;E11.9;E53.8 cough chest pain ears hurt Cough, CP, Congestion Chief Complaint M47.817 Headache, R fingers sore NKI Headache rash Obesity Z47.1;Z96.652;E11.9;E53.8 cough chest pain ears hurt Cough, CP, Congestion UTI Chief Complaint M47.817 Headache, R fingers sore NKI Headache rash Z47.1;Z96.652;E11.9;E53.8 cough chest pain ears hurt Cough, CP, Congestion UTI Obesity Dysuria Chief Complaint rash Z47.1;Z96.652;E11.9;E53.8 cough chest pain ears hurt Cough, CP, Congestion UTI Obesity Dysuria D49.3 z87.442 Chief Complaint Obesity Urogenital Hyperlipidemia Chief Complaint Urogenital Hyperlipidemia Wmn F/U Obesity sore throat, ear ache , cough low back pain when coughing Chief Complaint Wmn F/U Obesity sore throat, ear ache , cough low back pain when coughing E11.69 Reason for Visit Mixed hyperlipidemia Obesity, Class II, BMI 35-39.9 T2DM (type 2 diabetes mellitus) Chief Complaint sore throat, ear ach e , cough low back pain when coughing E11.69 left side lower back pain Reason for Visit Mixed hyperlipidemia Obesity, Class II, BMI 35-39.9 T2DM (type 2 diabetes mellitus) Chief Complaint low back pain when c oughing E11.69 left side lower back pain Reason for Visit Mixed hyperlipidemia Obesity, Class II, BMI 35-39.9 T2DM (type 2 diabetes mellitus) Chief Complaint low back pain when c oughing E11.69 left side lower back pain Dysuria;Dysuria Reason for Visit Mixed hyperlipidemia Obesity, Class II, BMI 35-39.9 T2DM (type 2 diabetes mellitus) Chief Complaint left side lower back pain R30.0 L Finger Swelling/Pain Chief Complaint left side lower back pain R30.0 L Finger Swelling/Pain m54.16 m47.816 Reason for Visit Mixed hyperlipidemia Obesity, Class II, BMI 35-39.9 T2DM (type 2 diabetes mellitus) Chief Complaint left side lower back pain R30.0 L Finger Swelling/Pain m54.16 m47.816 Back Pain - NKI Reason for Visit Mixed hyperlipidemia Obesity, Class II, BMI 35-39.9 T2DM (type 2 diabetes mellitus) Chief Complaint left side lower back pain R30.0 L Finger Swelling/Pain m54.16 m47.816 Back Pain - NKI back pain,nki Reason for Visit Mixed hyperlipidemia Obesity, Class II, BMI 35-39.9 T2DM (type 2 diabetes mellitus) Chief Complaint left side lower back pain R30.0 L Finger Swelling/Pain m54.16 m47.816 Back Pain - NKI back pain,nki burn, left hand Reason for Visit Mixed hyperlipidemia Obesity, Class II, BMI 35-39.9 T2DM (type 2 diabetes mellitus) Chief Complaint left side lower back pain R30.0 L Finger Swelling/Pain m54.16 m47.816 Back Pain - NKI back pain,nki burn, left hand G25.81 Reason for Visit Mixed hyperlipidemia Obesity, Class II, BMI 35-39.9 T2DM (type 2 diabetes mellitus) Burn Family History No Family History Records Found Relationship Condition Age at Onset Recorded Date/T chely father Diabetes mellitus Unknown Not Specified Hypertension Unknown natural son Attention deficit hy peractivity disorder (ADHD) Unknown Relationship Condition Age at Onset Recorded Date/T chely father Diabetes mellitus Unknown Not Specified Hypertension Unknown natural son Attention deficit hy peractivity disorder (ADHD) Unknown Unknown family member Unknown grandparent Obesity Unknown Relationship Condition Age at Onset Recorded Date/T chely father Diabetes mellitus Unknown mother Hypertension Unknown son Attention deficit hy peractivity disorder (ADHD) Unknown Unknown family member Unknown grandparent Obesity Unknown Advance Directives No Advanced Directives Records Found Advance Directive Response Recorded Date/ Time Advance Directives No May 15, 2017 9:16pm Advance Directive Response Recorded Date/ Time Advance Directives No May 15, 2017 8:16pm Advance Directive Response Recorded Date/ Time Advance Directives No March 23, 2024 10:57am Summary Purpose Medications Administered Section Active Administered Medications - up to 3 most recent administrations Medication Order MAR Action Action Date Dose Rate Site fluorescein-benoxinate 0.25-0.4 % 1 Drop (FLURESS) 1 Drop, BOTH EYES, DIRECTED, Starting on Sat12/13/22 at 1430, Until Sat12/14/22 at 0229, Administer for applanation tonometry, [facility] MED ORDERS Given 12/13/2022 2:30 PM EDT 1 Drop tropicamide 1 % 1 Drop (MYDRIACYL) 1 Drop, BOTH EYES, DIRECTED, Starting on Sat12/13/22 at 1430, Until Sat12/14/22 at 0229, Administer for dilation, [facility] MED ORDERS Given 12/13/2022 2:30 PM EDT 1 Drop Additional Source Comments Source Comments (unrecognize d section and content) In the event this informatio n is protected by the Federal Confidentiality of Alcohol and Drug Abuse Patient Records regulations: The Federal rules restrict any use of the information to criminally investigate or prosecute any alcohol or drug abuse patient.[facility]In the event this information is protected by the Federal Confidentiality of Alcohol and Drug Abuse Patient Records regulations: The Federal rules restrict any use of the information to criminally investigate or prosecute any alcohol or drug abuse patient.[facility] TroyIn the event this information is protected by the Federal Confidentiality of Alcohol and Drug Abuse Patient Records regulations: The Federal rules restrict any use of the information to criminally investigate or prosecute any alcohol or drug abuse patient.[facility] TroyIn the event this information is protected by the Federal Confidentiality of Alcohol and Drug Abuse Patient Records regulations: The Federal rules restrict any use of the information to criminally investigate or prosecute any alcohol or drug abuse patient.[facility] TroyIn the event this information is protected by the Federal Confidentiality of Alcohol and Drug Abuse Patient Records regulations: The Federal rules restrict any use of the information to criminally investigate or prosecute any alcohol or drug abuse patient.[facility] TroyIn the event this information is protected by the Federal Confidentiality of Alcohol and Drug Abuse Patient Records regulations: The Federal rules restrict any use of the information to criminally investigate or prosecute any alcohol or drug abuse patient.[facility] TroyIn the event this information is protected by the Federal Confidentiality of Alcohol and Drug Abuse Patient Records regulations: The Federal rules restrict any use of the information to criminally investigate or prosecute any alcohol or drug abuse patient.[facility] TroyIn the event this information is protected by the Federal Confidentiality of Alcohol and Drug Abuse Patient Records regulations: The Federal rules restrict any use of the information to criminally investigate or prosecute any alcohol or drug abuse patient.[facility] TroyIn the event this information is protected by the Federal Confidentiality of Alcohol and Drug Abuse Patient Records regulations: The Federal rules restrict any use of the information to criminally investigate or prosecute any alcohol or drug abuse patient.[facility] TroyIn the event this information is protected by the Federal Confidentiality of Alcohol and Drug Abuse Patient Records regulations: The Federal rules restrict any use of the information to criminally investigate or prosecute any alcohol or drug abuse patient.[facility] TroyIn the event this information is protected by the Federal Confidentiality of Alcohol and Drug Abuse Patient Records regulations: The Federal rules restrict any use of the information to criminally investigate or prosecute any alcohol or drug abuse patient.[facility] TroyIn the event this information is protected by the Federal Confidentiality of Alcohol and Drug Abuse Patient Records regulations: The Federal rules restrict any use of the information to criminally investigate or prosecute any alcohol or drug abuse patient.[facility] TroyIn the event this information is protected by the Federal Confidentiality of Alcohol and Drug Abuse Patient Records regulations: The Federal rules restrict any use of the information to criminally investigate or prosecute any alcohol or drug abuse patient.[facility] TroyIn the event this information is protected by the Federal Confidentiality of Alcohol and Drug Abuse Patient Records regulations: The Federal rules restrict any use of the information to criminally investigate or prosecute any alcohol or drug abuse patient.[facility] TroyIn the event this information is protected by the Federal Confidentiality of Alcohol and Drug Abuse Patient Records regulations: The Federal rules restrict any use of the information to criminally investigate or prosecute any alcohol or drug abuse patient.[facility] TroyIn the event this information is protected by the Federal Confidentiality of Alcohol and Drug Abuse Patient Records regulations: The Federal rules restrict any use of the information to criminally investigate or prosecute any alcohol or drug abuse patient.[facility] TroyIn the event this information is protected by the Federal Confidentiality of Alcohol and Drug Abuse Patient Records regulations: The Federal rules restrict any use of the information to criminally investigate or prosecute any alcohol or drug abuse patient.[facility] TroyIn the event this information is protected by the Federal Confidentiality of Alcohol and Drug Abuse Patient Records regulations: The Federal rules restrict any use of the information to criminally investigate or prosecute any alcohol or drug abuse patient.[facility] TroyIn the event this information is protected by the Federal Confidentiality of Alcohol and Drug Abuse Patient Records regulations: The Federal rules restrict any use of the information to criminally investigate or prosecute any alcohol or drug abuse patient.[facility] TroyIn the event this information is protected by the Federal Confidentiality of Alcohol and Drug Abuse Patient Records regulations: The Federal rules restrict any use of the information to criminally investigate or prosecute any alcohol or drug abuse patient.[facility] TroyIn the event this information is protected by the Federal Confidentiality of Alcohol and Drug Abuse Patient Records regulations: The Federal rules restrict any use of the information to criminally investigate or prosecute any alcohol or drug abuse patient.[facility] TroyIn the event this information is protected by the Federal Confidentiality of Alcohol and Drug Abuse Patient Records regulations: The Federal rules restrict any use of the information to criminally investigate or prosecute any alcohol or drug abuse patient.[facility] TroyIn the event this information is protected by the Federal Confidentiality of Alcohol and Drug Abuse Patient Records regulations: The Federal rules restrict any use of the information to criminally investigate or prosecute any alcohol or drug abuse patient.[facility] Reason for Visit (unrecogniz ed section and content) Reason Comments Hearing Loss Reason Comments Established Patient follow up Reason Comments Results Reason Comments Pain In Ear(s) Specialty Diagnoses / Procedures Referred By Contac t Referred To Contact Diagnoses Sensorineural hearing loss (SNHL) of both ears Tinnitus of both ears Procedures ADULT HEARING TEST/AUDIOGRAM COMPRE AUDIOMETRY THRESHOLD EVAL SP BENIJ Nasra Lo PA-C [address] [place] [id number] [facility] [address] [place] [address] Referral ID Status Reason Start Date Expiration Date V isits Requested Visits Authorized [id number] Closed Auto-Generate d Referral 04/04/2022 07/03/2022 1 1 Reason Comments Follow Up Reason Onset Date Comments Appointment Confirmation 08/27/2022 Reason Comments Blurred Vision Both Eyes Reason Comments Patient Update spoke to patient. ki dney pain vs back spine pain. she will be seen in office. ok to schedule. Reason Comments Radiology CT Specialty Diagnoses / Procedures [facility] Diagnoses Sensorineural hearing loss (SNHL) of both ears Dizziness Tinnitus, bilateral Procedures CT TEMP BONES WO IVCON CT ORBIT SELLA/POST FOSSA/EAR W/O CONTRAST MATRL Nasra Lo PA-C [address] [place] [address] [facility] [place] [address] Referral ID Status Reason Start Date Expiration Date V isits Requested Visits Authorized [id number] Closed Auto-Generate d Referral 08/27/2023 09/25/2024 1 1 Reason Comments Ear Pain Specialty Diagnoses / Procedures [facility] To Contact Ent - Otolaryngology Diagnoses Gastroesophageal reflux disease, unspecified whether esophagitis present Nose trouble Procedures CONSULT TO ENT OFFICE/OUTPATIENT NEW HIGH MDM 60 MINUTES Nasra Lo PA-C [address] [place] [id number] Referral ID Status Reason Start Date Expiration Date V isits Requested Visits Authorized [id number] Closed PCP Requested Referral 08/27/2023 08/26/2024 1 1 Reason Comments Follow Up Reason Comments Radiology US Reason Comments Low Back Pain Reason Comments Radiology XR Reason Comments Physical Therapy PT Eval Patient Education Specialty Diagnoses / Procedures Referred By Contac t Referred To Contact [facility] Diagnoses PTTD (posterior tibial tendon dysfunction) Morbid obesity (HCC) Osteoarthritis of 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 Spinal stenosis, lumbar region with neurogenic claudication Lumbar foraminal stenosis Facet degeneration of lumbar region Restless legs syndrome Disturbance of skin sensation Carpal tunnel syndrome, bilateral H/O total knee replacement, bilateral Status post left foot surgery Myalgia Procedures CONSULT TO PHYSICAL THERAPY [facility]AP[facility] 45 MINS Melony Alamo, PA-C [address] [facility] [address] [place] [address] [facility] [address] [address] Referral ID Status Reason Start Date Expiration Date Visits Requested Visits Authorized [id number] Authorized Auto-Generat ed Referral 08/05/2023 08/04/2024 30 30 Reason Comments Consult JOHN Specialty Diagnoses / Procedures Referred By Contac t Referred To Contact Urology Diagnoses Stress incontinence of urine Procedures CONSULT TO UROLOGY OFFICE/OUTPATIENT [facility] 60 MINUTES Carter Hall MD [address] [place] [address] Jacqui Castro MD [address] [place] [address] Referral ID Status Reason Start Date Expiration Date V isits Requested Visits Authorized [id number] Closed PCP Requested Referral 10/11/2023 10/10/2024 1 1 Reason Comments Outside Referral Requests Care Teams (unrecognized sec tion and content) Team Status: Active Member Role Status Dates Services [facility] Primary Care Provider Active Team Status: Inactive Member Role Status Dates Services Family [facility] Primary Care Provider Active Start: August 07, 2023 End: August 08, 2023 Chris Sol DO Emergency Provider Active Sta rt: August 07, 2023 End: August 08, 2023 Team Status: Inactive Member Role Status Dates Services [facility] Primary Care Provider Active Start: August 12, 2023 End: August 12, 2023 Brigida Corea APRN HOSIERY OPERATOR-C Attending Provider Active Start: August 12, 2023 End: August 12, 2023 Team Status: Inactive Member Role Status Dates Michael Morley MD Attending Provider Active Start: September 02, 2023 End: September 02, 2023 Team Status: Active Member Role Status Dates Naomi Feliciano MD Primary Care Provider Active Start: September 02, 2023 Michael Morley MD Attending Provider Active Start: September 02, 2023 Team Status: Inactive Member Role Status Dates Services [facility] Primary Care Provider Active Start: October 06, 2023 End: October 06, 2023 Gaudencio Newell APRN Emergency Provider Active Start: October 06, 2023 End: October 06, 2023 Team Status: Inactive Member Role Status Dates Services [facility] Primary Care Provider Active Start: October 27, 2023 End: October 27, 2023 Mary Ellen Magallanes APRN Emergency Provider Active Start: October 27, 2023 End: October 27, 2023 Team Status: Active Member Role Status Dates Naomi Feliciano MD Primary Care Provider Active Michael Morley MD Attending Provider Active Team Status: Inactive Member Role Status Dates Jorgito Sanchez DO Primary Care Provider Active Mary Ellen Magallanes APRN Emergency Provider Active Team Status: Inactive Member Role Status Dates Brigida Corea APRN HOSIERY OPERATOR-C Primary Care Provider Act sushma Corea MD Emergency Provider Active Team Status: Inactive Member Role Status Dates Brigida Corea APRN HOSIERY OPERATOR-C Primary Care Provider Act sushma RYLEY Bowles-C Emergency Provider Active Team Status: Inactive Member Role Status Dates No Torres MD Attending Provider Active Services [facility] Primary Care Provider Active Team Status: Inactive Member Role Status Dates Alex Aguirre DO Attending Provider Active NON STAFF Primary Care Provider Active Team Status: Inactive Member Role Status Dates Jorgito Sanchez DO Primary Care Provider Active Michael Morley MD Attending Provider Active Edilia Buitrago MD Referring Provider Active Team Status: Inactive Member Role Status Dates Jorgito Sanchez DO Primary Care Provider Active Boston Reed PA-C Emergency Provider Active Team Status: Inactive Member Role Status Dates Augustine David DO Attending Provider Active NON STAFF Primary Care Provider Active Team Status: Active Member Role Status Dates Brigida Corea APRN HOSIERY OPERATOR-C Primary Care Provider Act sushma Team Status: Inactive Member Role Status Dates Jorgito Haynesr , DO Primary Care Provider Active Kenny Villarreal MD Attending Provider Active Team Status: Inactive Member Role Status Dates Jorgito E Juliannaerer , DO Primary Care Provider Active Chris Sol , DO Emergency Provider Active Team Status: Active Member Role Status Dates Jorgito E Schwerer , DO Primary Care Provider Active Team Status: Inactive Member Role Status Dates Jorgito Haynesr , DO Primary Care Provider Active Issa Stovall , DO Emergency Provider Active Sam Hodges MD Admit Provider Active Kenny Mendez MD Other Provider Active Mimi Villarreal MD Other Provider Active Zayda Ku MD Other Provider Active Holden Strange , DO Other Provider Active Holland Murphy II, MD Other Provider Active Mimi Rodriguez MD Other Provider Active Walter Zhang MD Attending Provider Active Team Status: Inactive Member Role Status Dates Jorgito Haynesr , DO Primary Care Provider Active Issa Stovall , DO Emergency Provider Active Team Status: Inactive Member Role Status Dates Jorgito Haynesr , DO Primary Care Provider, Attendi ng Provider Active Team Status: Inactive Member Role Status Dates Jorgito Haynesr , DO Primary Care Provider Active Ara Dempsey APRN Attending Provider Active Team Status: Inactive Member Role Status Dates Jorgito Haynesr , DO Primary Care Provider Active Kenny Rothman Jr, MD Emergency Provider Active Team Status: Inactive Member Role Status Dates Jorgito Haynesr , DO Primary Care Provider Active No Torres MD Attending Provider Active Team Status: Inactive Member Role Status Dates Jorgito Sanchez , DO Primary Care Provider, Other P rovider Active No Torres MD Attending Provider Active General Foundry Worker Relationship Specialty Start Date End Date Jorgito Sanchez, DO [address] [place] [address] PCP - General Family Practice 08/23/21 Brandi Pruitt MD [address] [id number] Referring Obstetrics 05/02/21 Jorgito Sanchez, DO [address] [place] [address] Referring Family Practice 08/23/21 General Foundry Worker Relationship Specialty Start Date End Date Jorgito Sanchez, DO [address] [place] [address] PCP - General Family Practice 08/23/21 Brandi Pruitt MD [address] [facility] [address] [place] [address] Referring Obstetrics 05/02/21 Jorgito Sanchez, DO [address] [place] [address] Referring Family Practice 08/23/21 General Foundry Worker Relationship Specialty Start Date End Date Jorgito Sanchez, DO [address] [place] [address] PCP - General Family Practice 08/23/21 Brandi Prutit MD [address] [facility] [address] [place] [address] Referring Obstetrics 05/02/21 Jorgito Sanchez, DO [address] [place] [address] Referring Family Practice 08/23/21 Team Status: Inactive Member Role Status Dates Jorgito Sanchez DO Primary Care Provider Active Alex Aguirre DO Attending Provider Active Team Status: Inactive Member Role Status Dates Jorgito Sanchez DO Primary Care Provider Active Jazmin Pereira NP-Daxa Attending Provider Active General Foundry Worker Relationship Specialty Start Date End Date Jorgito Sanchez, DO [address] [place] [address] PCP - General Family Medicine 08/23/21 Brandi Pruitt MD [address] [place] [address] Referring Obstetrics 05/02/21 Jorgito Sanchez, DO [address] [place] [address] Referring Family Medicine 08/23/21 General Foundry Worker Relationship Specialty Start Date End Date Jorgito Sanchez, DO [address] [place] [address] PCP - General Family Medicine 08/23/21 Brandi Pruitt MD [address] [place] [address] Referring Obstetrics 05/02/21 Jrogito Sanchez, DO [address] [place] [address] Referring Family Medicine 08/23/21 Team Status: Inactive Member Role Status Dates Jorgito Sanchez , Primary Care Provider Active Kelby Ma DO Emergency Provider Active Team Status: Inactive Member Role Status Dates Jorgito Sanchez DO Primary Care Provider Active Michael Morley MD Attending Provider Active General Foundry Worker Relationship Specialty Start Date End Date Jorgito Sanchez, DO [address] [place] [address] PCP - General Family Medicine 08/23/21 Brandi Pruitt MD [address] [place] [phone] Referring Obstetrics 05/02/21 Jorgito Sanchez, DO [address] [place] [address] Referring Family Medicine 08/23/21 General Foundry Worker Relationship Specialty Start Date End Date Jorgito Sanchez, DO [address] [facility] [place] [address] PCP - General Family Medicine 08/23/21 Brandi Pruitt MD [address] [facility] [address] [place] [address] Referring Obstetrics 05/02/21 Jorgito Sanchez, DO [address] [facility] [place] [address] Referring Family Medicine 08/23/21 Team Status: Active Member Role Status Dates Jorgitoxiao Sanchez , DO Primary Care Provider Active Issa Stovall , DO Emergency Provider Active Kenny Mendez MD Other Provider Active Mimi Villarreal MD Other Provider Active Zayda Ku MD Other Provider Active Holden Strange , DO Other Provider Active Holland Murphy II, MD Other Provider Active Sam Hodges MD Admit Provider, Attending Eb montelongo Active Team Status: Inactive Member Role Status Dates Jorgito Sanchez , DO Primary Care Provider Active Issa Stovall , DO Emergency Provider Active Sam Hodges MD Admit Provider Active Walter Zhang MD Attending Provider Active Kenny Mendez MD Other Provider Active Mimi Villarreal MD Other Provider Active Zayda Ku MD Other Provider Active Holden Strange , DO Other Provider Active Holland Murphy II, MD Other Provider Active Mimi Rodriguez MD Other Provider Active General Foundry Worker Relationship Specialty Start Date End Date Jorgito Sanchez, DO [address] [facility] [place] [address] PCP - General Family Medicine 08/23/21 Brandi Pruitt MD [address] [facility] [address] [place] [address] Referring Obstetrics 05/02/21 Jorgito Sanchez DO [address] [place] [address] Referring Family Medicine 08/23/21 Team Status: Inactive Member Role Status Dates Augustine David DO Attending Provider Active Team Status: Inactive Member Role Status Dates [facility] Primary Care Provider Active Brigida Corea APRN HOSIERY OPERATOR-C Attending Provider Active Team Status: Inactive Member Role Status Dates [facility] Primary Care Provider Active Chris Sol DO Emergency Provider Active General Foundry Worker Relationship Specialty Start Date End Date Brigida Corea, RISK MANAGEMENT ANALYST [address] [place] [address] PCP - General Family Medicine 08/27/23 Brandi Pruitt MD [address] [facility] [address] [place] [phone] Referring Obstetrics 05/02/21 Jorgito Sanchez DO [address] [place] [address] Referring Family Medicine 08/23/21 Brigida Corea RISK MANAGEMENT ANALYST [address] [place] [address] Primary Service Family Medicine 08/01/23 General Foundry Worker Relationship Specialty Start Date End Date Brigida Corea CNP [address] [place] [address] PCP - General Family Medicine 08/27/23 Brandi Pruitt MD [address] [facility] [address] [place] [address] Referring Obstetrics 05/02/21 Jorgito Sanchez DO [address] [place] [address] Referring Family Medicine 08/23/21 Brigida Corea, RISK MANAGEMENT ANALYST [address] [place] [address] Primary Service Family Medicine 08/01/23 General Foundry Worker Relationship Specialty Start Date End Date Brigida Corea, RISK MANAGEMENT ANALYST [address] [place] [address] PCP - General Family Medicine 08/27/23 Brandi Pruitt MD [address] [facility] [address] [place] [address] Referring Obstetrics 05/02/21 Jorgito Sanchez DO [address] [facility] [address] Referring Family Medicine 08/23/21 Brigida Corea, RISK MANAGEMENT ANALYST [address] [place] [address] Primary Service Family Medicine 08/01/23 General Foundry Worker Relationship Specialty Start Date End Date Brigida Corea, RISK MANAGEMENT ANALYST [address] [place] [address] PCP - General Family Medicine 08/27/23 Brandi Pruitt MD [address] [place] [facility] [phone] Referring Obstetrics 05/02/21 Jorgito Sanchez DO [address] [place] [address] Referring Family Medicine 08/23/21 Brigida Corea, RISK MANAGEMENT ANALYST [address] [place] [address] Primary Service Family Medicine 08/01/23 General Foundry Worker Relationship Specialty Start Date End Date Brigida Corea, RISK MANAGEMENT ANALYST [address] [place] [address] PCP - General Family Medicine 08/27/23 Brandi Pruitt MD [address] [facility] [address] [place] [phone] Referring Obstetrics 05/02/21 Jorgito Sanchez DO [address] [facility] [address] Referring Family Medicine 08/23/21 Brigida Corea, GERARDO [address] [place] [address] Primary Service Family [facility] 08/01/23 General Foundry Worker Relationship Specialty Start Date End Date Brigida Corea, GERARDO [address] [place] [address] PCP - General Family Medicine 08/27/23 Brandi Pruitt MD [address] [facility] [place] [phone] Referring Obstetrics 05/02/21 Jorgito Sanchez DO [address] [facility] [place] [address] Referring Family Medicine 08/23/21 Brigida Corea, RISK MANAGEMENT ANALYST [address] [place] [address] Primary Service Family Medicine 08/01/23 General Foundry Worker Relationship Specialty Start Date End Date Brigida Corea, RISK MANAGEMENT ANALYST [address] [place] [address] PCP - General Family Medicine 08/27/23 Brandi Pruitt MD [address] [facility] [place] [phone] Referring Obstetrics 05/02/21 Jorgito Sanchez DO [address] [place] [id number] Referring Family Medicine 08/23/21 Brigida Corea, GERARDO [address] [place] [address] Primary Service Family Medicine 08/01/23 General Foundry Worker Relationship Specialty Start Date End Date Brigida Corea, GERARDO [address] [place] [address] PCP - General Family Medicine 08/27/23 Brandi Pruitt MD [address] [facility] [place] [phone] Referring Obstetrics 05/02/21 Jorgito Sanchez DO [address] [place] [address] Referring Family Medicine 08/23/21 Brigida Corea, RISK MANAGEMENT ANALYST [address] [place] [address] Primary Service Family Medicine 08/01/23 Team Status: Inactive Member Role Status Dates Services Family [facility] Primary Care Provider Active Start: October 28, 2023 End: October 28, 2023 Michael Morley MD Attending Provider Active Start: October 28, 2023 End: October 28, 2023 Team Status: Inactive Member Role Status Dates Services [facility] Primary Care Provider Active Start: November 14, 2023 End: November 14, 2023 Brigida Corea APRN HOSIERY OPERATOR-C Attending Provider Active Start: November 14, 2023 End: November 14, 2023 General Foundry Worker Relationship Specialty Start Date End Date Brigida Corea CNP [address] [place] [address] PCP - General Family Medicine 08/27/23 Brandi Pruitt MD [address] [place] [address] Referring Obstetrics 05/02/21 Jorgito Sanchez DO [address] [place] [address] Referring Family Medicine 08/23/21 Brigida Corea, RISK MANAGEMENT ANALYST [address] [place] [address] Primary Service Family Medicine 08/01/23 Team Status: Inactive Member Role Status Dates Services Family Health Primary Care Provider Active Start: January 03, 2024 End: January 03, 2024 Boston Reed PA-C Emergency Provider Active Start: January 03, 2024 End: January 03, 2024 Team Status: Inactive Member Role Status Dates Augustine David DO Attending Provider Active St art: January 14, 2024 End: January 14, 2024 Team Status: Inactive Member Role Status Dates Brigida Corea APRN HOSIERY OPERATOR-C Primary Care Provider Act sushma Start: February 15, 2024 End: February 15, 2024 Boston Reed PA-C Emergency Provider Active Start: February 15, 2024 End: February 15, 2024 Team Status: Inactive Member Role Status Dates Michael Morley MD Attending Provider Active Start: February 18, 2024 End: February 18, 2024 Brigida Corea APRN HOSIERY OPERATOR-C Primary Care Provider Act sushma Start: February 18, 2024 End: February 18, 2024 Team Status: Inactive Member Role Status Dates Brigida Corea APRN HOSIERY OPERATOR-C Primary Care Provider Act sushma Start: March 11, 2024 End: March 11, 2024 Simone Barnes APRN-CLIENT SERVICE REPRESENTATIVE-C Attending Provider Active Start: March 11, 2024 End: March 11, 2024 Team Status: Inactive Member Role Status Dates Brigida Corea APRN HOSIERY OPERATOR-C Primary Care Provider Act sushma Start: March 12, 2024 End: March 12, 2024 No Covington DO Emergency Provider Active St art: March 12, 2024 End: March 12, 2024 Team Status: Inactive Member Role Status Dates Brigida Corea APRN HOSIERY OPERATOR-C Primary Care Provider Act sushma Start: March 12, 2024 End: March 12, 2024 Gaudencio Newell APRN Emergency Provider Active Start: March 12, 2024 End: March 12, 2024 Team Status: Inactive Member Role Status Dates Brigida Corea APRN HOSIERY OPERATOR-C Primary Care Provider Act sushma Start: March 23, 2024 End: March 23, 2024 Chantel Taylor APRN Attending Provider Active Start: March 23, 2024 End: March 23, 2024 Team Status: Inactive Member Role Status Dates Brigida Corea APRN HOSIERY OPERATOR-C Primary Care Provider Act sushma Start: March 31, 2024 End: March 31, 2024 Simone Barnes APRN-CLIENT SERVICE REPRESENTATIVE-C Attending Provider Active Start: March 31, 2024 End: March 31, 2024 Goals (unrecognized section and content) Goals may be documented in a n alternate section INFORMATION SOURCE (unrecogn ized section and content) DATE CREATED AUTHOR 04/06/2022 [facility] DATE CREATED AUTHOR AUTHOR'S ORGANIZ ATION 12/19/2022 [facility] DATE CREATED AUTHOR AUTHOR'S ORGANIZ ATION 05/23/2023 [facility] DATE CREATED AUTHOR AUTHOR'S ORGANIZ ATION 10/24/2023 [facility] DATE CREATED AUTHOR AUTHOR'S ORGANIZ ATION 03/15/2024 [facility] Special[facility] DATE CREATED AUTHOR AUTHOR'S ORGANIZ ATION 04/02/2024 [facility] DATE CREATED AUTHOR AUTHOR'S ORGANIZ ATION 04/02/2024 [facility] FOR RECORDS PERTAINING TO PATIENTS WHO ARE OR HAVE BEEN ENROLLED IN A CHEMICAL DEPENDENCY/SUBSTANCEABUSE PROGRAM, SOME INFORMATION MAY BE OMITTED. This clinical summary was aggregated from multiple sources. Caution should be exercised in using it in the provision of clinical care. This summary normalizes information from multiple sources, and as a consequence, information in this document may materially change the coding, format and clinical context of patient data. In addition, data may be omitted in some cases. CLINICAL DECISIONS SHOULD BE BASED ON THE PRIMARY CLINICAL RECORDS. [facility] [employer] provides no warranty or guarantee of the accuracy or completeness of information in this document.
[2024-04-09 23:56] VITALS: BP 159/40; PULSE 83; TEMP 36.8; O2SAT 98; BMI 39.9
--- NOTE | 2024-04-10 00:56 | ED.ABDPAIN1 ---
HPI - Abdominal Pain General Chief Complaint: Abdominal Pain Stated Complaint: Back Pain, Cold/Hot Flashes, Nausea/Vomiting Time Seen by Provider: 04/10/24 00:51 Source: patient Mode of arrival: walk-in Limitations: no limitations History of Present Illness HPI narrative: presents complaining of left lower back pain. States she fell out of a chair a couple of days ago and injured her left back and left shoulder. Shoulder is better. Back pain continues and now she has lower abdominal pain on the right side. No vomiting or diarrhea. No fever or urinary complaints Related Data Home Medications ?Medication ?Instructions ?Recorded ?Confirmed albuterol sulfate 90 mcg/actuation inhalation 04/10/24 aerosol inhaler carbamazepine 200 mg tablet mg 04/10/24 carbidopa 25 mg-levodopa 100 mg tab 04/10/24 tablet cholecalciferol (vitamin D3) 1,250 04/10/24 mcg (50,000 unit) capsule cyanocobalamin (vitamin B-12) mcg 04/10/24 1,000 mcg tablet (Vitamin B-12) dulaglutide 4.5 mg/0.5 mL mg subcut 04/10/24 subcutaneous pen injector (Trulicity) duloxetine 60 mg capsule,delayed mg PO 04/10/24 release glipizide 5 mg tablet mg 04/10/24 lumateperone 10.5 mg capsule mg PO 04/10/24 (Caplyta) lumateperone 21 mg capsule mg PO 04/10/24 (Caplyta) nabumetone 500 mg tablet mg 04/10/24 potassium chloride 20 mEq meq PO 04/10/24 tablet,extended release pramipexole 0.125 mg tablet mg 04/10/24 pregabalin 100 mg capsule mg 04/10/24 rimegepant 75 mg disintegrating mg 04/10/24 tablet (Nurtec ODT) Allergies Allergy/AdvReac Type Severity Reaction Status Date / Time aloe vera Allergy Unknown Unknown Verified 04/10/24 00:04 azithromycin Allergy Unknown Verified 04/10/24 00:04 baclofen Allergy Unknown Verified 04/10/24 00:04 cephalexin Allergy unkown Verified 04/10/24 00:04 ciprofloxacin Allergy Unknown Verified 04/10/24 00:04 cyclobenzaprine Allergy Rash Verified 04/10/24 00:04 [From Flexeril] gabapentin [From Neurontin] Allergy Unknown Verified 04/10/24 00:04 menthol Allergy Unknown Verified 04/10/24 00:04 morphine Allergy Rash Verified 04/10/24 00:04 naproxen Allergy Rash Verified 04/10/24 00:04 NSAIDS (Non-Steroidal Allergy Rash Verified 04/10/24 00:04 Anti-Inflamma sumatriptan [From Imitrex] Allergy Rash Verified 04/10/24 00:04 topiramate [From Topamax] Allergy Rash Verified 04/10/24 00:04 tramadol [From Ultram] Allergy Rash Verified 04/10/24 00:04 vitamin E (d-alpha Allergy Rash Verified 04/10/24 00:04 tocopherol) Review of Systems ROS Status of ROS 10 or more systems reviewed and unremarkable except as noted in history and below PFSH PFSH Social History Little interest or pleasure in doing things: not at all Feeling down, depressed, or hopeless: not at all Exam Constitutional Vital Signs, click to edit/add: Last Vital Signs Temp 98.2 F 04/09/24 23:56 Pulse 76 04/10/24 03:27 Resp 20 04/10/24 03:27 BP 104/60 04/10/24 03:27 Pulse Ox 98 04/10/24 03:27 O2 Del Method Room Air 04/10/24 03:27 Common normals: no apparent distress, oriented x3, no limitations, healthy appearing, alert and well nourished [facility] Common normals: normocephalic and head/scalp atraumatic Eye Common normals: PERRL, EOMs intact bilaterally and conjunctivae normal Respiratory Common normals: normal respiratory effort, no retractions, no use of accessory muscles and clear to auscultation bilaterally Cardio Common normals: regular rate, regular rhythm, S1 normal heart sound and S2 normal heart sound GI Other: bilat mild lower quad tenderness Back & Pelvis General back: CVA tenderness CVA tenderness: left Extremity Common normals: normal to inspection and full ROM Neuro Common normals: oriented x3, CN's II-XII intact bilaterally, moves all extremities and no focal motor deficits Psych Appearance: grossly normal Course Vital Signs Vital signs: Vital Signs Temperature 98.2 F 04/09/24 23:56 Pulse Rate 83 04/09/24 23:56 Respiratory Rate 16 04/09/24 23:56 Blood Pressure 159/40 H 04/09/24 23:56 Pulse Oximetry 98 04/09/24 23:56 Temperature 98.2 F 04/09/24 23:56 Pulse Rate 76 04/10/24 03:27 Respiratory Rate 20 04/10/24 03:27 Blood Pressure 104/60 04/10/24 03:27 Pulse Oximetry 98 04/10/24 03:27 Oxygen Delivery Method Room Air 04/10/24 03:27 MDM - Abdominal Pain MDM Narrative Medical decision making narrative: patient presents with left lower back pain from a fall a couple of days ago. Fell out of a chair. Now also has lower quad abdominal pain. Mild tenderness left CVA and across her lower abdomen. CT neg for acute finding and labs unremarkable. Treated as muscular injury with norflex and discharged home to follow up with her doctor Lab Data Labs: Lab Results 04/10/24 04/10/24 Range/Units 01:40 03:15 WBC 10.1 (4.0-11.0) 10^3/uL RBC 4.41 (4.20-5.40) 10^6/uL Hgb 12.8 (12.0-16.0) g/dL Hct 37.1 (36.0-48.0) % MCV 84.1 (81.0-99.0) fL MCH 29.0 (26.7-34.0) pg MCHC 34.5 (29.9-35.2) g/dL RDW 12.7 (11.0-15.0) % Plt Count 260 (150-450) 10^3/uL MPV 9.2 L (9.5-13.5) fL Neut % (Auto) 62.8 (43.0-75.0) % Lymph % (Auto) 26.7 (20.5-60.0) % Mathews % (Auto) 7.7 (1.7-12.0) % Eos % (Auto) 1.8 (0.9-7.0) % Baso % (Auto) 0.5 (0.2-2.0) % Neut # (Auto) 6.3 (1.4-6.5) 10^3/uL Lymph # (Auto) 2.7 (1.2-3.8) 10^3/uL Mathews # (Auto) 0.8 (0.3-0.8) 10^3/uL Eos # (Auto) 0.2 (0.0-0.7) 10^3/uL Baso # (Auto) 0.1 (0.0-0.1) 10^3/uL Abs Immat Gran (auto) 0.05 H (0.00-0.03) 10^3/uL Imm/Tot Granulo (auto) 0.5 (0.0-0.5) % Sodium 136 (136-145) mmol/L Potassium 3.6 (3.5-5.1) mmol/L Chloride 100 (98-107) mmol/L Carbon Dioxide 29.8 (21.0-32.0) mmol/L Anion Gap 9.8 BUN 14.0 (7.0-18.0) mg/dL Creatinine 0.64 (0.55-1.02) mg/dL Est GFR ( Amer) >60 (>=60) Est GFR (Non-Af Amer) >60 (>=60) BUN/Creatinine Ratio 21.9 Glucose 102 (74-106) mg/dL Lactate 1.0 (0.4-2.0) mmol/L Calcium 8.7 (8.5-10.1) mg/dL Total Bilirubin 0.5 (0.2-1.0) mg/dL AST 18 (15-37) U/L ALT 23 (14-59) U/L Alkaline Phosphatase 112 (46-116) U/L Troponin I High Sens <4.0 L (4.0-51.3) pg/mL Total Protein 7.2 (6.4-8.2) g/dL Albumin 3.3 L (3.4-5.0) g/dL Globulin 3.9 g/dL Albumin/Globulin Ratio 0.8 Lipase 24.0 (16.0-77.0) U/L Urine Color Yellow (YELLOW) Urine Clarity Clear (CLEAR) Urine pH 6.5 (5.0-9.0) Ur Specific [place] 1.020 (1.005-1.025) Urine Protein Negative (NEG/TRACE) mg/dL Urine Glucose (UA) Negative (NEGATIVE) mg/dL Urine Ketones Negative (NEGATIVE) mg/dL Urine Occult Blood Negative (NEGATIVE) Urine Nitrite Negative (NEGATIVE) Urine Bilirubin Negative (NEGATIVE) Urine Urobilinogen 1.0 (0.2-1.0) EU/dL Ur Leukocyte Esterase Negative (NEGATIVE) Imaging Data Abdominal x-ray: Radiologist's impression: ITS Impressions Abdomen/Pelvis CT 04/10/24 00:59 IMPRESSION: Mild superficial subcutaneous fat stranding in the anterior abdominal wall in the bilateral lower quadrants may reflect subcutaneous injections. No soft tissue gas or loculated fluid. No other potential acute findings in the abdomen or pelvis. Additional nonemergent findings are present, as above. Electronically authenticated by: NIRMAL SWANN Date: 04/10/2024 02:42 Discharge Plan Discharge Stand Alone Forms: Work/School Release, Portal Instructions Chief Complaint: Abdominal Pain Clinical Impression: Strain of tendon of lower back, Abdominal wall strain Patient Disposition: Home, Self-Care Prescriptions / Home Meds: No Action cyanocobalamin (vitamin B-12) [Vitamin B-12] 1,000 mcg tablet carbamazepine 200 mg tablet pramipexole 0.125 mg tablet albuterol sulfate 90 mcg/actuation HFA aerosol inhaler INHALATION carbidopa-levodopa 25-100 mg tablet glipizide 5 mg tablet nabumetone 500 mg tablet duloxetine 60 mg capsule,delayed release(DR/EC) PO pregabalin 100 mg capsule cholecalciferol (vitamin D3) 1,250 mcg (50,000 unit) capsule potassium chloride 20 mEq tablet extended release PO Nurtec ODT 75 mg tablet,disintegrating Trulicity 4.5 mg/0.5 mL pen injector SUBCUT Caplyta 10.5 mg capsule PO Caplyta 21 mg capsule PO Print Language: Dominican Instructions: Muscle Strain (ED), Low Back Strain (ED) Referrals: Wendy Corea NP [Primary Care Provider] - 1 week
--- NOTE | 2024-04-10 00:59 | CT_ITS ---
The [address] [address] Patient Name: CHANTEL MENDEZ MRN: [id number] date: 1975 Sex: F Assigned Patient Location: ER Current Patient Location: ER Accession/Order Number: [id number] Exam Date: 04/10/2024 02:00 Report Date: 04/10/2024 02:42 At the request of: HUSAM ABBOTT Procedure: CT abdomen pelvis wo con EXAM: CT abdomen pelvis wo con HISTORY: Right-sided abdominal pain. Left lower back pain. COMPARISON: None. TECHNIQUE: Nonenhanced CT imaging the abdomen and pelvis was performed with sagittal and coronal reconstructions. Dose reduction techniques were achieved by using automated exposure control and/or adjustment of mA and/or kV according to patient size and/or use of iterative reconstruction technique. FINDINGS: CT ABDOMEN: The lung bases are clear. The heart is unremarkable. Cholecystectomy is noted with no biliary ductal dilatation. The exam is limited by the lack of IV contrast. Solid organ lesions or acute abnormalities could be missed. The liver is enlarged at nearly 21 cm in length, but is otherwise unremarkable. The pancreas, spleen, adrenal glands, stomach, small bowel, aorta, IVC and right kidney have a grossly unremarkable nonenhanced appearance. There are several nonobstructing stones in the lower pole of the left kidney measuring up to 6 mm. No hydronephrosis or ureterolithiasis is seen on either side. There is superficial subcutaneous fat stranding in the anterior abdominal wall in the bilateral lower quadrants which may reflect subcutaneous injections. There is no soft tissue gas or loculated fluid. CT PELVIS: The normal appendix is seen on images 100 through 112 of series 3. The pelvic small bowel loops, colon and urinary bladder are unremarkable. There is mild colonic diverticulosis. There is fatty infiltration in the thickened wall of the decompressed cecum and ascending colon extending to the hepatic flexure. There is a nonspecific left inguinal nodule measuring 2.1 x 1.6 cm on image 127, which does not appear typical of a lymph node or bowel loop. This may be postsurgical. No inflammatory fat stranding, free fluid, loculated fluid or free air is seen in the abdomen or pelvis. No acute osseous abnormality or suspicious bony lesion is seen. CT/CT abdomen pelvis wo con IMPRESSION: Mild superficial subcutaneous fat stranding in the anterior abdominal wall in the bilateral lower quadrants may reflect subcutaneous injections. No soft tissue gas or loculated fluid. No other potential acute findings in the abdomen or pelvis. Additional nonemergent findings are present, as above. Electronically authenticated by: NIRMAL SWANN Date: 04/10/2024 02:42
[2024-04-10 02:29] LABS: Basophils Absolute Auto 0.1 10^3/uL (0.0-0.1); Basophils Percent Auto 0.5 % (0.2-2.0); Eosinophils Absolute Auto 0.2 10^3/uL (0.0-0.7); Eosinophils Percent Auto 1.8 % (0.9-7.0); Hematocrit 37.1 % (36.0-48.0); Hemoglobin 12.8 g/dL (12.0-16.0); Immature Granulocytes Abs Auto 0.05 10^3/uL (0.00-0.03); Immature Granulocytes Pct Auto 0.5 % (0.0-0.5); Lymphocytes Absolute Auto 2.7 10^3/uL (1.2-3.8); Lymphocytes Percent Auto 26.7 % (20.5-60.0); Mean Corpuscular HGB Conc 34.5 g/dL (29.9-35.2); Mean Corpuscular Volume 84.1 fL (81.0-99.0); Mean Platelet Volume 9.2 fL (9.5-13.5); Monocytes Absolute Auto 0.8 10^3/uL (0.3-0.8); Monocytes Percent Auto 7.7 % (1.7-12.0); Neutrophils Absolute Auto 6.3 10^3/uL (1.4-6.5); Neutrophils Percent Auto 62.8 % (43.0-75.0); Platelet Count 260 10^3/uL (150-450); Red Blood Count 4.41 10^6/uL (4.20-5.40); Red Cell Distribution Width 12.7 % (11.0-15.0); White Blood Count 10.1 10^3/uL (4.0-11.0)
[2024-04-10] MEDS: 0.9 % SODIUM CHLORIDE 1,000 ML 999 ML IV (02:41)
[2024-04-10 02:47] LABS: Alanine Aminotransferase 23 U/L (14-59); Albumin Globulin Ratio 0.8; Albumin Level 3.3 g/dL (3.4-5.0); Alkaline Phosphatase 112 U/L (46-116); Anion Gap 9.8; Aspartate Amino Transferase 18 U/L (15-37); BUN Creatinine Ratio 21.9; Bilirubin Total 0.5 mg/dL (0.2-1.0); Calcium 8.7 mg/dL (8.5-10.1); Carbon Dioxide 29.8 mmol/L (21.0-32.0); Chloride 100 mmol/L (98-107); Estimated GFR (African America >60 (>=60); Estimated GFR (Non-African Ame >60 (>=60); Globulin 3.9 g/dL; Glucose 102 mg/dL (74-106); Potassium 3.6 mmol/L (3.5-5.1); Sodium 136 mmol/L (136-145); Total Protein 7.2 g/dL (6.4-8.2); Troponin I High Sensitivity <4.0 pg/mL (4.0-51.3)
[2024-04-10] MEDS: ONDANSETRON PF 4 MG/2 ML VIAL IV (03:21)
[2024-04-10 03:22] LABS: Bilirubin Urine NEGATIVE (NEGATIVE); Blood Urine NEGATIVE (NEGATIVE); Clarity Urine CLEAR (CLEAR); Color Urine YELLOW (YELLOW); Glucose Urine UA NEGATIVE (NEGATIVE); Ketones Urine NEGATIVE (NEGATIVE); Leukocyte Esterase Urine NEGATIVE (NEGATIVE); Nitrite Urine NEGATIVE (NEGATIVE); Protein Urine NEGATIVE (NEG/TRACE); pH Urine 6.5 (5.0-9.0)
[2024-04-10 03:27] VITALS: BP 104/60; PULSE 76; O2SAT 98
[2024-04-10 03:36] LABS: Urine Microscopic Indicated NO
[2024-04-10] MEDS: ORPHENADRINE CITRATE 100 MG TABLET.ER PO (04:13)
== END 2024-04-10 04:34 | disposition home or self-care (01) ==
PROVIDERS: Emergency Provider Internal Medicine; PCP Nurse Practitioner Family
DX: S39.012A Strain of muscle, fascia and tendon of lower back, initial encounter (principal); S39.011A Strain of muscle, fascia and tendon of abdomen, initial encounter; W07.XXXA Fall from chair, initial encounter
CPT/HCPCS: 36415; 74176; 80053; 81003; 83605; 83690; 84484; 85025; 96374; 99284; J2405

== ENCOUNTER 2025-04-27 20:17 | Emergency (ER) | payer MEDICAID, SELFPAY ==
[2025-04-27 20:21] VITALS: BP 141/64; PULSE 89; TEMP 36.7; O2SAT 97; BMI 42.1
--- NOTE | 2025-04-27 21:00 | PC.NURSE ---
acute on chronic low back pain
--- NOTE | 2025-04-27 21:03 | PC.NURSE ---
Has been being treated for fluid behind her right ear that has been causing pain, but she states her pain has been getting worse.
--- NOTE | 2025-04-27 21:26 | ED_ITS ---
HPI HPI - Back Pain/Injury General Chief Complaint: Back Pain/Injury Stated Complaint: LOWER BACK PAIN Time Seen by Provider: 04/27/25 21:13 Source: patient Mode of arrival: walk-in Limitations: no limitations History of Present Illness HPI Narrative: This 49-year-old female with a history of chronic back pain and morbid obesity who is on Lyrica presents for evaluation of ongoing left-sided back pain. She denies any recent injury. She has not had any fever. She denies any urinary frequency urgency or dysuria. She points to the left flank as area of greatest pain. She has no weakness numbness or tingling. She has no difficulty urinating, urinary retention loss of bowel or bladder control. She also complains of pain in her right ear. She thinks she has fluid behind her right ear drum. She is on Zyrtec on a daily basis but that does not take any decongestants. She has not had any fever or nasal congestion. He denies that she is in pain management. I did review her OARRS report and she receives monthly prescriptions for Lyrica and approximately 6 prescriptions for narcotic analgesics from a total number of 11 providers over the course of the past year. Related Data Home Medications ?Medication ?Instructions ?Recorded ?Confirmed albuterol sulfate 90 mcg/actuation inhalation 04/10/24 aerosol inhaler carbamazepine 200 mg tablet 300 mg PO 04/10/24 carbidopa 25 mg-levodopa 100 mg 1 tab PO 04/10/24 tablet cholecalciferol (vitamin D3) 1,250 04/10/24 mcg (50,000 unit) capsule cyanocobalamin (vitamin B-12) mcg 04/10/24 1,000 mcg tablet (Vitamin B-12) dulaglutide 4.5 mg/0.5 mL mg subcut 04/10/24 subcutaneous [facility] duloxetine 60 mg capsule,delayed mg PO 04/10/24 release glipizide 5 mg tablet 5 mg PO 04/10/24 lumateperone 10.5 mg capsule mg PO 04/10/24 (Caplyta) lumateperone 21 mg capsule 21 mg PO 04/10/24 (Caplyta) nabumetone 500 mg tablet mg 04/10/24 potassium chloride 20 mEq meq PO 04/10/24 tablet,extended release pramipexole 0.125 mg tablet 0.5 mg PO 04/10/24 pregabalin 100 mg capsule 100 mg PO 04/10/24 rimegepant 75 mg disintegrating 75 mg PO 04/10/24 tablet (Nurtec ODT) quetiapine 25 mg tablet 50 mg 04/27/25 spironolactone 50 mg tablet 50 mg PO 04/27/25 Allergies Allergy/AdvReac Type Severity Reaction Status Date / Time aloe vera Allergy Unknown Unknown Verified 04/27/25 20:28 azithromycin Allergy Unknown Verified 04/27/25 20:28 baclofen Allergy Unknown Verified 04/27/25 20:28 cephalexin Allergy unkown Verified 04/27/25 20:28 ciprofloxacin Allergy Unknown Verified 04/27/25 20:28 cyclobenzaprine (From Allergy Rash Verified 04/27/25 20:28 Flexeril) gabapentin (From Neurontin) Allergy Unknown Verified 04/27/25 20:28 menthol Allergy Unknown Verified 04/27/25 20:28 morphine Allergy Rash Verified 04/27/25 20:28 naproxen Allergy Rash Verified 04/27/25 20:28 NSAIDS (Non-Steroidal Allergy Rash Verified 04/27/25 20:28 Anti-Inflamma sumatriptan (From Imitrex) Allergy Rash Verified 04/27/25 20:28 topiramate (From Topamax) Allergy Rash Verified 04/27/25 20:28 tramadol (From Ultram) Allergy Rash Verified 04/27/25 20:28 vitamin E (d-alpha Allergy Rash Verified 04/27/25 20:28 tocopherol) Opioid HPI Opioid Management Most Recent Opioid Data: Last Pain Scale 10 Today, 20:59 Review of Systems ROS Status of ROS 10 or more systems reviewed and unremark able except as noted in history and below PFSH PFSH Social History Little interest or pleasure in doing things: not at all Feeling down, depressed, or hopeless: not at all Exam Narrative Exam Narrative: Vital signs and Nursing Notes reviewed: Patient is afebrile with normal pulse, blood pressure is mildly elevated at 141/64, she is not hypoxic with pulse ox of 97% on room air General: Awake, alert, oriented, obese adult female, no acute distress, lying comfortably on the stretcher HEENT: Normocephalic atraumatic, mucous membranes are moist and pink, eyes are clear, normal conjunctiva, vision is grossly intact, posterior pharynx is normal in appearance. Tympanic membranes are normal bilaterally without erythema, effusion, exudate in the external canal or other notable abnormality, no appreciable postnasal drip Neck: Supple, no meningeal signs, no anterior or posterior cervical lymphadenopathy Chest: Lungs are clear to auscultation with good air entry, there is no wheezing rhonchi or rales appreciated no accessory muscle use, patient is speaking in complete sentences-no chest wall tenderness to palpation CVS: Regular rate and rhythm S1-S2, no murmurs rubs or gallops, pulses are brisk and equal bilaterally ABD: Obese, soft, nondistended, nontender Musc: No midline bony vertebral tenderness or step-off in the thoracic or lumbar region, subjective tenderness in the left lateral flank area without redness or swelling or appreciable muscle spasm in this area, no tenderness in the buttocks or piriformis muscles Extremities: Moving all extremities, no lower extremity tenderness or swelling noted, negative Homans' sign, pulses are brisk and equal bilaterally Skin: Normal in appearance without rash,pallor, petechiae or purpura Neuro: No focal deficits, upper and lower extremity strength and sensation is intact, patient is ambulatory with a steady gait, no saddle anesthesia or sensory changes to the inguinal area or medial thighs bilaterally Constitutional Vital Signs, click to edit/add: Last Vital Signs Temp 98.0 F 04/27/25 20:21 Pulse 89 04/27/25 20:21 Resp 18 04/27/25 20:21 BP 141/64 04/27/25 20:21 Pulse Ox 97 04/27/25 20:21 O2 Del Method Room Air 04/27/25 20:21 Course Vital Signs Vital signs: Vital Signs Temperature 98.0 F 04/27/25 20:21 Pulse Rate 89 04/27/25 20:21 Respiratory Rate 18 04/27/25 20:21 Blood Pressure 141/64 04/27/25 20:21 Pulse Oximetry 97 04/27/25 20:21 Oxygen Delivery Method Room Air 04/27/25 20:21 Temperature 98.0 F 04/27/25 20:21 Pulse Rate 89 04/27/25 20:21 Respiratory Rate 18 04/27/25 20:21 Blood Pressure 141/64 04/27/25 20:21 Pulse Oximetry 97 09/23/25 20:21 Oxygen Delivery Method Room Air 04/27/25 20:21 MDM - Back Pain/Injury MDM Narrative Medical decision making narrative: This 41-year-old female with a history of chronic back pain presents for evaluation of ongoing left-sided back pain. This is not new for her. There is no injury. There is no urinary symptoms or neurologic symptoms related to this. She also complains of right ear pain. She has not had any fever or nasal congestion. I do not appreciate any redness, swelling or effusion behind either eardrum. There is no postnasal drip. I did review her OARRS report and she is on Lyrica and gets occasional prescriptions for narcotics from different providers. I explained to the patient that I cannot treat her chronic back pain from the emergency department. I did check her urine for infection or sign of kidney stone. Urine is normal. I agreed to give her 1 pain pill prior to discharge and she will receive a prescription for Zyrtec-D at the time of discharge to use for the ear discomfort. Lab Data Labs: Lab Results 04/27/25 Range/Units 21:25 Urine Color Lt. yellow (YELLOW) Urine Clarity Clear (CLEAR) Urine pH 7.0 (5.0-9.0) Ur Specific [place] 1.020 (1.005-1.025) Urine Protein Negative (NEG/TRACE) mg/dL Urine Glucose (UA) Negative (NEGATIVE) mg/dL Urine Ketones Negative (NEGATIVE) mg/dL Urine Occult Blood Negative (NEGATIVE) Urine Nitrite Negative (NEGATIVE) Urine Bilirubin Negative (NEGATIVE) Urine Urobilinogen 0.2 (0.2-1.0) EU/dL Ur Leukocyte Esterase Negative (NEGATIVE) Urine RBC 0-2 (0-2) #/HPF Urine WBC 2-5 A (NONE SEEN) #/HPF Ur Squamous Epith Cells Rare (NONE/RARE) #/LPF Urine Crystals Seen A (None Seen) #/HPF Calcium Oxalate Crystal Moderate Urine Bacteria Trace A (NONE SEEN) #/HPF Urine Casts None seen (NONE SEEN) #/LPF Urine Mucus Small A (NONE SEEN) Ur Culture Indicated? No Discharge Plan Discharge Chief Complaint: Back Pain/Injury Clinical Impression: Chronic back pain greater than 3 months duration, Otalgia of right ear Patient Disposition: Home, Self-Care Prescriptions / Home Meds: No Action cyanocobalamin (vitamin B-12) [Vitamin B-12] 1,000 mcg tablet carbamazepine 200 mg tablet 300 mg PO pramipexole 0.125 mg tablet 0.5 mg PO albuterol sulfate 90 mcg/actuation HFA aerosol inhaler INHALATION carbidopa-levodopa 25-100 mg tablet 1 tab PO glipizide 5 mg tablet 5 mg PO nabumetone 500 mg tablet duloxetine 60 mg capsule,delayed release(DR/EC) PO pregabalin 100 mg capsule 100 mg PO cholecalciferol (vitamin D3) 1,250 mcg (50,000 unit) capsule potassium chloride 20 mEq tablet extended release PO Nurtec ODT 75 mg tablet,disintegrating 75 mg PO Trulicity 4.5 mg/0.5 mL pen injector SUBCUT Caplyta 10.5 mg capsule PO Caplyta 21 mg capsule 21 mg PO quetiapine 25 mg tablet 50 mg spironolactone 50 mg tablet 50 mg PO Print Language: Slovak Instructions: Earache (ED), Chronic Back Pain (DC) Referrals: Wendy Corea NP [Primary Care Provider] - 1 week
--- OUTSIDE RECORDS SUMMARY | 2025-04-27 21:30 | XMS_ITS | CCD ---
Author Organization [facility] Care Team Providers Care Mixed Crop Farmer Name Role Phone Brandi Pruitt MD Unavailable Schwerer DO, Jorgito E Unavailable [phone] Schwerer DO, Jorgito E Primary Care Provider [phone] Schwerer, Jorgito Unavailable Michael Morley Jr. Unavailable Lety Falk Unavailable Reyna Black Unavailable Schwerer, Jorgito Unavailable Michael Morley Unavailable Simone Mckenzie Unavailable Schwerer, DO Jorgito E Primary Care Provider [phone] Schwerer, DO Jorgito E Attending Provider MD Jodie [facility] Primary Care Provider Unav ailable MD Michael Morley Attending Provider ISAI ORDOÑEZ Attending Unavailable ISAI ORDOÑEZ Admitting Unavailable SCHWERE, JORGITO Primary Care Unavailable JOSR SAUNDESR Referring Unavailable DO Alex Aguirre Attending Provider [phone] Schwerer, DO Jorgito E Primary Care Provider [phone] Schwerer, DO Jorgito E Attending Provider VIPUL Pereira Attending Provider Jazmin Pereira Unavailable Edmond CHUA, Penola P Unavailable [phone] Schwerer DO, Jorgito E Unavailable Schwerer DO, Jorgito E Primary Care Provider Schwerer, DO Jorgito E Primary Care Provider Schwerer, DO Jorgito E Attending Provider MD No Desir Attending Provider [phone] Schwerer, DO Jorgito E Primary Care Provider Schwerer, DO Jorgito E Attending Provider DO Alex Aguirre Attending Provider MALDONADO Pereira-Daxa Guerrero Attending Provider MD No Desir Attending Provider MD Michael Morley Attending Provider DO Simone Stovall Emergency Provider Unavai DO Kelby Monk Emergency Provider Schwerer, DO Jorgito E Primary Care Provider Schwerer, DO Jorgito E Attending Provider Schwerer, DO Jorgito E Primary Care Provider Schwerer, DO Jorgito E Primary Care Provider TRI Reed Emergency Provider MD Jodie [facility] Primary Care Provider Unav TODD Cameron Emergency Provider Angel Pruitt MDola P Unavailable [phone] Schwerer DO, Jorgito E Unavailable Schwerer DO, Jorgito E Primary Care Provider Schwerer, DO Jorgito E Primary Care Provider [phone] MD Kenny Villarreal Attending Provider [phone] Schwerer, DO Jorgito E Primary Care Provider MD Michael Morley Attending Provider MD No Desir Attending Provider TODD Dempsey Attending Provider [phone] SCHWERER, Jorgito E Primary Care Physician Kenny Villarreal Unavailable Schwerer, DO Jorgito E Primary Care Provider Schwerer, DO Jorgito E Attending Provider Schwerer, DO Jorgito E Other Provider Schwerer, DO Jorgito E Primary Care Provider [phone] Schwerer, DO Jorgito E Attending Provider TODD Magallanes Emergency Provider MD Kenny Villarreal Attending Provider [phone] MD No Desir Attending Provider [phone] TODD Dempsey Attending Provider Schwerer, DO Jorgito E Other Provider MD Jodie [facility] Primary Care Provider Unav ailable MD Michael Morley Attending Provider MD Kenny Carreno Jr Emergency Provider Schwerer, DO Jorgito E Primary Care Provider Schwerer, DO Jorgito E Attending Provider DO Simone Stovall Emergency Provider MD Kenny Olguin Other Provider MD Mimi Villarreal Other Provider MD Zayda Ku Other Provider DO Holden Strange Other Provider [phone] MD Holland Murphy II Other Provider [phone] MD Sam Hodges Provider MD Sam Hodges Attending Provider [phone] MD Walter Zhang Attending Provider [phone] MD Mimi Rodriguez Other Provider WEST, DR MICHAEL Bansal Consulting Unavailable HIGHLANDER, PETER D Admitting Unavailable HIGHLANDER, PETER D Attending Unavailable HIGHLANDER, PETER D Consulting Unavailable WEST, DR MICHAEL Bansal Consulting Unavailable HIGHLANDER, PETER D Admitting Unavailable HIGHLANDER, PETER D Attending Unavailable HIGHLANDER, PETER D Consulting Unavailable HIGHLANDER, PETER D Admitting Unavailable HIGHLANDER, PETER D Attending Unavailable DESIR ., DR SARABIA Attending Unavailable DESIR ., DR SARABIA Consulting Unavailable DESIR ., DR SARABIA Admitting Unavailable TOTHNII Consulting Unavailable DESIR ., DR SARABIA Attending Unavailable DESIR ., DR SARABIA Consulting Unavailable DESIR ., DR SARABIA Admitting Unavailable DESIR ., DR SARABIA Attending Unavailable DESIR ., DR SARABIA Consulting Unavailable DESIR ., DR SARABIA Admitting Unavailable ZIEBER, DR FABY Guerrero Consulting Unavailable EDILIA LOOMIS Consulting Unavailable ALEX MEDINA Consulting Unavailable DESIR ., DR SARABIA Admitting Unavailable DESIR ., DR SARABIA Attending Unavailable DESIR ., DR SARABIA Consulting Unavailable ZIEBER, DR FABY Guerrero Consulting Unavailable FRANKMARYCHUY Walter Consulting Unavailable ADAM, ALEX Consulting Unavailable DESIR ., DR SARABIA Attending Unavailable DESIR ., DR SARABIA Consulting Unavailable DESIR ., DR SARABIA Admitting Unavailable BRENT II, KENNY Consulting Unavailable ALEX MEDINA Consulting Unavailable DESIR ., DR SARABIA Attending Unavailable DESIR ., DR SARABIA Admitting Unavailable DO Jorgito Sanchez Primary Care Provider [phone] MD Kenny Villarreal Attending Provider TRI Reed Emergency Provider DO Chris Sol Emergency Provider [phone] DO Jorgito Sanchez Primary Care Provider [phone] TODD Magallanes Emergency Provider MD Jodie [facility] Primary Care Provider Una MD Michael Vick Attending Provider MD Edilia Buitrago Referring Provider TODD Corea Primary Care Provider MD Mimi Corea Emergency Provider MD Michael Morley Attending Provider MD Naomi Feliciano Primary Care Provider Unav DO Augustine Carrillo Attending Provider [phone] DO Jorgito Sanchez Primary Care Provider [phone] TRI Reed Emergency Provider NON STAFF Primary Care Provider DO Alex Glez Attending Provider [phone] MD No Desir Attending Provider [facility] Primary Care Provider MD Naomi Feliciano Primary Care Provider Unav ailMD Michael Barba Attending Provider [facility] Primary Care Provider [phone] DO Chris Sol Emergency Provider TODD Corea Attending Provider Jorgito Sanchez DO Unavailable [phone] Anmol CARRILLO, Brigida R Unavailable Anmol CARRILLO, Brigida R Primary Care Provider ISAI ORDOÑEZ Attending Unavailable SKIE, ISAI Attending Unavailable SKIE, ISAI Attending Unavailable SKIE, ISAI Attending Unavailable SKIE, ISAI Attending Unavailable SKIE, ISAI Admitting Unavailable SKIE, ISAI Attending Unavailable SKIE, ISAI Attending Unavailable ANDREA, ROSE Attending Unavailable DARLEEN, YASMANI Attending Unavailable SKIE, ISAI Referring Unavailable SKIE, ISAI Attending Unavailable JACQUI MENDEZ Attending Unavailable SKIE, ISAI Referring Unavailable SKIE, ISAI Referring Unavailable SKIE, ISAI Referring Unavailable SKIE, ISAI Referring Unavailable SKIE, ISAI Attending Unavailable RAFIQ, LINDA Referring Unavailable SKIE, ISAI Attending Unavailable ROSE MENDEZ Referring Unavailable SKIE, ISAI Admitting Unavailable SKIE, ISAI Attending Unavailable [facility] Primary Care Provider [phone] DO Chris Sol Emergency Provider TODD Corea Attending Provider MD Naomi Feliciano Primary Care Provider MD Michael Carmona Attending Provider OsirisMATIN Gaudencio Emergency Provider TODD Magallanes Emergency Provider [facility] Primary Care Provider TODD Corea Attending Provider Brigida Corea CNP Primary Care Provider TRI Reed Emergency Provider [facility] Primary Care Provider DO Augustine David Attending Provider [facility] Primary Care Provider [phone] TODD Corea Primary Care Provider ERNIE Rivera-Daxa Bundy Attending Provider DO No [place] Emergency Provider [phone] TODD Newell Emergency Provider TRI Reed Emergency Provider MD Kenny Carreno Jr Emergency Provider Unallocated , [place] Provider Primary Care Provi toni MALDONADO Mendoza-Daxa Luna Attending Pr ovider BRIGIDA COREA Primary Care Physician TODD Corea Primary Care Provider [phone] DO Alex Aguirre Attending Provider Brigida Corea APRN Primary Care Provider Simone Henry Attending Provider No [place] DO Emergency Provider Kenny Carreno MD Emergency Provider Reji KENNEYCAshley Attending Pr ovider Alex Aguirre DO Attending Provider [phone] Anmol BROOKS, Brigida Leny Primary Care Provider Kenny Carreno MD Emergency Provider [phone] Jorgito Sanchez DO Unavailable Turyley PAGAN, No Mckeon Emergency Provider Mary Ellen Magallanse APRN Emergency Provider [phone] Cameron BROOKS, Simone Unavailable [phone] Anmol BROOKS, Brigida Leny Primary Care Provider Annmarie Palmer DO Attending Provider No Desir MD Attending Provider Ori Marin PA-C Attending Provider [phone] Charbel PAGAN, Kevin Emergency Provider [phone] Anmol BROOKS, Brigida Leny Primary Care Provider Kenny Carreno MD Emergency Provider [facility] , No Mckeon Emergency Provider Mary Ellen Magallanes APRN Emergency Provider Annmarie Palmer DO Attending Provider No Desir MD Attending Provider Ori Marin PA-C Attending Provider [phone] Barger , Kevin Emergency Provider Anmol BROOKS Brigida Leny Attending Provider Anmol BROOKS, Brigida Leny Primary Care Provider [phone] Kenny Carreno MD Emergency Provider [place] , No Mckeon Emergency Provider Mary Ellen Magallanes APRN Emergency Provider Annmarie Palmer DO Attending Provider No Desir MD Attending Provider Ori Marin PA-C Attending Provider [phone] Kevin Barger DO Emergency Provider Anmol BROOKS, Brigida Leny Attending Provider Lyndon Gallardo Attending Unavailable Corea REED CLEANER, Brigida Leny Primary Care Provider Kenny Carreno MD Emergency Provider Josr Fuentes MD Referring Provider KWAME MCNEIL Referring Unavailable BRIGIDA COREA Primary Care Unavailable No DESIR Attending Unavailable Lyndon Gallardo Attending Unavailable Fracnisco Marin Attending Unavailable Anmol THORNEN, Brigida Leny Primary Care Provider Mary Ellen Magallanes APRN Emergency Provider Josr Fuentes MD Attending Provider Anmol BROOKS, Brigida Leny Primary Care Provider Anmol BROOKS, Brigida Leny Attending Provider [facility] Primary Care Provider Mode Pete MD Primary Care Provider Anmol BROOKS, Brigida Leny Primary Care Provider Josr Fuentes MD Attending Provider Mary Ellen Magallanes APRN Emergency Provider [phone] No [place] DO Emergency Provider Delroy Merino DPM Attending Provider Lisa Adkins APRN Emergency Provider [phone] Ashley Aleman DNP Attending Provider Delroy Merino Unavailable Caroline Jung DO Attending Provider Ashley Whelan Primary Care Provider Josr Fuentes MD Attending Provider Lisa Moreira RD Attending Provider UnavailKiley Moore MD Emergency Provider Jerry Sarmiento DO Admit Provider [phone] Jerry Sarmiento DO Attending Provider [phone] JASMYNE MCNEILK Referring Unavailable COREA, RBIGIDA R Primary Care Unavailable ALINE HAMMONDS Referring Unavailable ALINE HAMMONDS Referring Unavailable HAIDET, KWAME Referring Unavailable FARZANAT, KWAME Attending Unavailable HAIDET, KWAME Admitting Unavailable HAIDETJASMYNEK Attending Unavailable HAIDET, KWAME Referring Unavailable HAIDET, KWAME Referring Unavailable HAIDET, KWAME Admitting Unavailable HAIDET, KWAME Attending Unavailable COREA, BRIGIDA R Primary Care Unavailable FARZANATJASMYNEK Attending Unavailable JANINE STOCK Attending Unavailable HAIDET, KWAME Referring Unavailable COREA, BRIGIDA R Primary Care Unavailable PRIYANKA LUIS Abdullahi Referring Unavailable PREETHI LANCASTER Attending Unavailable DELROY MERINO Referring Unavailable TASHI OSMAN Attending Unavailab TASHI Spring Referring Unavailab DARRIUS Holland Attending Unavailable TASHI OSMAN Referring Unavailab le KWAME MCNEIL Attending Unavailable EDDA MATHEWKAS Abdullahi Referring Unavailable COREA, BRIGIDA R Primary Care Unavailable EDDA MATHEWKAS Abdullahi Attending Unavailable COREA, BRIGIDA R Primary Care Unavailable PRIYANKA LUIS Abdullahi Referring Unavailable COREA, BRIGIDA R Primary Care Unavailable ALINE HAMMONDS Attending Unavailable HAIDET, KWAME Referring Unavailable COREA, BRIGIDA R Primary Care Unavailable COREA, BRIGIDA R Primary Care Unavailable HAIMELQUIADESTJASMYNEK Attending Unavailable FARZANATJASMYNEK Attending Unavailable COREA, BRIGIDA R Primary Care Unavailable Mary Ellen Magallanes Attending Unavailable Mary Ellen Magallanes Admitting Unavailable [facility] Primary Care Unavaila ble Kevin Barger Attending Unavailable Kevin Barger Admitting Unavailable Corea, Brigida Leny Primary Care Unavailable Kenny Carreno Jr Attending Unavailable Corea, Brigida Leny Primary Care Unavailable Kenny Carreno Jr Admitting Unavailable [facility] Primary Care Unavaila No Puri Attending Unavailable No [place] Admitting Unavailable Annmarie Palmer Attending Unavailable Annmarie Palmer Admitting Unavailable Corea, Brigida Leny Primary Care Unavailable Kenny Carreno Jr Attending Unavailable Kenny Carreno Jr Admitting Unavailable Corea, Brigida Leny Primary Care Unavailable Corea, Brigida Leny Primary Care Unavailable No [place] Attending Unavailable No [place] Admitting Unavailable Mary Ellen Magallanes Attending Unavailable NicoleeMary Ellen N Admitting Unavailable Corea, Brigida Leny Primary Care Unavailable Kenny Carreno Jr Admitting Unavailable Corea, Brigida Leny Primary Care Unavailable Kenny Carreno Jr Attending Unavailable Kenny Carreno Jr Admitting Unavailable Corea, Brigida Leny Primary Care Unavailable Kenny Carreno Jr Attending Unavailable Corea, Brigida Leny Primary Care Unavailable Ori Marin Attending Unavailable Ori Marin Admitting Unavailable No Desir Attending Unavailable No Desir Admitting Unavailable Corea, Brigida Leny Primary Care Unavailable Josr Fuentes Referring Unavai lable Corea, Brigida Leny Primary Care Unavailable Corea, Brigida Leny Admitting Unavailable Corea, Brigida Leny Attending Unavailable Ashley Mendoza Attending Ashley Smith Admitting U navluis carlos Fuentes, Josr Corral Attending Josr Colón Admitting Unavai lable Corea, Brigida Leny Primary Care Unavailable Corea, Brigida Leny Admitting Unavailable Corea, Brigida Leny Attending Unavailable Anmol, Brigida Leny Primary Care Unavailable Ly Annmarie L Attending Unavailable Ly Annmarie L Admitting Unavailable Corea, Brigida Leny Primary Care Unavailable Lisa Adkins Attending Unavailable Lisa Adkins Admitting Unavailable [facility] Primary Care Unavaila ble Corea, Brigida Leny Primary Care Unavailable Alex Aguirre Attending Unavailable Alex Aguirre Admitting Unavailable [facility] Primary Care Unavaila Delroy Garay Admitting Unavailable Delroy Merino Attending Unavailable Caroline Jung Attending Unavailable Caroline Jung Admitting Unavailable Ashley Valle Primary Care Unavailable Jerry Sarmiento Attending Unavailable Jerry Sarmiento Admitting Unavailable Josr Fuentes Attending Josr Colón Admitting Unavai labIndu Kapoorfer L Primary Care Unavailable SafMary Ellen simpson N Attending Unavailable Crys Magallanesney N Admitting Unavailable Corea, Brigida Leny Primary Care Unavailable SIMONE RIVERA Attending Unavailable DELROY MERINO Attending Unavailable DELROY MERINO Attending Unavailable DELROY MERINO Referring Unavailable LIZ ESPINAL Attending Unavailable SIMONE RIVERA Attending Unavailable DELROY MERINO Attending Unavailable DELROY MERINO Attending Unavailable DELROY MERINO Attending Unavailable DELROY MERINO A Attending Unavailable DELROY MERINO Attending Unavailable ANIL MA Attending Unavailable MAYRA QUIÑONEZ Attending Unavailable DELROY MERINO Referring Unavailable RICARDO MERINOS Tien Attending Unavailable RICARDO MERINOS Tien Referring Unavailable RICARDO MERINOS A Attending Unavailable ABHIJEET MERINOOLAS A Attending Unavailable Allergies Allergy Classification Reported Allergen(s) Allergy Type Date of Onset Reaction(s) Facility Anti-Epileptic Agents (2 sources) gabapentin Drug Allergy Unknown Reaction, [facility] Baclofen (1 source) Baclofen Drug Allergy Unknown Reaction [facility] Cephalosporins (antibiotic) (1 source) Cephalexin Drug Allergy Nausea [facility] cyclobenzaprine (1 source) cyclobenzaprine Drug Allergy [facility] Macrolides (antibiotic) (1 source) Azithromycin Drug Allergy Rash, itching [facility] Menthol (1 source) Menthol Drug Allergy Unknown Reaction [facility] NSAIDs (1 source) Naproxen Drug Allergy Rash [facility] Opioid Agonists (2 sources) traMADol Drug Allergy Unknown Reaction [facility] Penicillins (antibiotic) (1 source) Penicillins Drug Allergy [facility] Quinolones (antibiotic) (1 source) Ciprofloxacin Drug Allergy Unknown Reaction [facility] Serotonin-1b and Serotonin-1d Receptor Agonists (1 source) SUMAtriptan Drug Allergy Gastrointestinal Upset [facility] Vitamin E (1 source) Vitamin E Drug Allergy Unknown Reaction [facility] (20 sources) Aloe vera preparation; Translations: [ALOE VERA] Drug Allergy Other: See Comments, Unknown [facility] (20 sources) Azithromycin; Translations: [AZITHROMYCIN] Drug Allergy Itching, Rash, Unknown [facility] (20 sources) Baclofen; Translations: [BACLOFEN] Drug Allergy Other: See Comments, Swelling [facility] (20 sources) Cephalexin; Translations: [CEPHALEXIN] Drug Allergy GI Upset, Vomiting, GI intolerance, Nausea Only, Unknown [facility] (20 sources) Ciprofloxacin; Translations: [CIPROFLOXACIN] Drug Allergy Other: See Comments [facility] (20 sources) cyclobenzaprine; Translations: [cyclobenzaprine] Drug Allergy Hives, Unknown, Rash [facility] (20 sources) gabapentin; Translations: [gabapentin] Drug Allergy Hives, Unknown, Other: See Comments, Eruption of skin (disorder), Rash [facility] (20 sources) Menthol; Translations: [MENTHOL] Drug Allergy Other: See Comments, Unknown [facility] (20 sources) metFORMIN; Translations: [METFORMIN] Drug Allergy [facility] (20 sources) Non-steroidal anti-inflammatory agent; Translations: [NSAIDS (NON-STEROIDAL ANTI-INFLAMMATORY DRUG)] Drug Allergy Hives, Rash, Other: See Comments, Unknown [facility] (20 sources) cyclobenzaprine; Translations: [Flexeril] Drug Allergy Unknown [facility] (20 sources) Naproxen; Translations: [naproxen] Drug Allergy Unknown, Rash [facility] (20 sources) NSAIDs Propensity to adverse reactions Unknown [employer] Other (20 sources) Penicillins; Translations: [PENICILLINS] Propensity to adverse reactions [facility], [facility] traMADol; Translations: [TRAMADOL] Drug Allergy Unknown, GI Upset [facility] (20 sources) SUMAtriptan; Translations: [SUMATRIPTAN] Drug Allergy Unknown, GI Upset, Rash [facility] (20 sources) topiramate; Translations: [topiramate] Drug Allergy Hives, Rash, Unknown, Other: See Comments [facility] (20 sources) Vitamin E; Translations: [vitamin E (d-alpha tocopherol)] Drug Allergy 022 Unknown Reaction [facility] (2 sources) Amoxicillin; Translations: [AMOXICILLIN] Drug Allergy [facility] (1 source) NSAIDs Drug allergy (disorder) [facility] (2 sources) Penicillins (Antibiotic) Drug allergy (disorder) [facility] (1 source) rOPINIRole Drug Allergy [facility] (3 sources) topiramate; Translations: [Topamax] Drug Allergy [facility] (20 sources) Non-steroidal anti-inflammatory agent Drug Allergy Hives, Rash, Other: See Comments [facility] (5 sources) Allergy to penicillin; Translations: [Penicillin allergy] Drug allergy itching [facility] (20 sources) Ibuprofen; Translations: [ibuprofen] Drug Allergy 023 Rash [facility] (20 sources) tiZANidine; Translations: [tizanidine] Drug Allergy 023 Eruption of skin (disorder), Rash [facility] (20 sources) zonisamide; Translations: [zonisamide] Drug Allergy 023 Eruption of skin (disorder), Rash [facility] (20 sources) Morphine; Translations: [morphine] Drug Allergy 023 GI Upset, Nausea And Vomiting, GI intolerance [facility] (1 source) Amoxicillin Drug Allergy [facility] (2 sources) gabapentin; Translations: [Neurontin] Drug Allergy [facility] (1 source) metFORMIN Drug Allergy [facility] (1 source) Naproxen Drug Allergy [facility] (1 source) tiZANidine Drug Allergy [facility] (1 source) zonisamide Drug Allergy [facility] (6 sources) Penicillin Drug Allergy Unknown [employer] Other (20 sources) NSAIDS (Non-Steroidal Anti-Inflamma; Translations: [NSAIDS (Non-Steroidal Anti-Inflamma] Allergy to substance 024 unknown [facility] (20 sources) Baclofen Drug Allergy Unknown, Swelling [facility] (20 sources) Ciprofloxacin Drug Allergy Unknown [facility] Work Phone: (20 sources) Diclofenac; Translations: [DICLOFENAC] Drug Allergy Unknown, Other, Other: See Comments [facility] (20 sources) Penicillins Drug Intolerance Hives, Itching, Rash, Unknown [facility] (20 sources) rOPINIRole; Translations: [ROPINIROLE] Drug Allergy 019 Hives [facility] (20 sources) Vitamin E; Translations: [VITAMIN E] Drug Allergy Unknown [facility] (20 sources) Zonisamide Allergy to substance Rash [facility] (20 sources) Ciprofloxacin-Cip roflox Hcl Er Drug Intolerance [facility] (20 sources) oxyCODONE; Translations: [Oxycodone] Drug Allergy Illness (finding), GI Upset [facility] (20 sources) DULoxetine; Translations: [DULOXETINE] Drug Allergy Other: See Comments [facility] (20 sources) alpha Tocopherol Drug Allergy Rash, Unknown, Other: See Comments [facility] (20 sources) Penicillins Drug Allergy 025 Rash [facility] (1 source) NSAID - Non-steroidal anti-inflammatory drug; Translations: [NSAID - Non-steroidal anti-inflammatory drug] Propensity to adverse reactions (disorder) [facility] (1 source) Aloe Extract Drug Allergy [facility] (1 source) Azithromycin Drug Allergy [facility] (1 source) Baclofen Drug Allergy [facility] (1 source) Cephalexin Drug Allergy [facility] (1 source) Ciprofloxacin Drug Allergy [facility] (1 source) cyclobenzaprine Drug Allergy [facility] (1 source) gabapentin Drug Allergy [facility] (1 source) Menthol Drug Allergy [facility] (1 source) Naproxen Drug Allergy [facility] (1 source) Penicillins Drug allergy (disorder) 025 [facility] (1 source) traMADol Drug Allergy [facility]ository Medications Current Medications Medication Drug Class(es) Dates Sig (Normalized) Sig (Original) acetaminophen 325 mg / HYDROcodone bitartrate 5 mg oral tablet (20 sources) Opioid Agonist Start: 02-18-2025 End: 02-25-2025 take 1 tablet by mouth every six hours as needed for pain HYDROcodone-acetami nophen (NORCO) 5-325 mg per tablet Indications: Postoperative state Take 1 tablet by mouth every 6 hours as needed for pain for up to 7 days. 28 tablet 02/18/2025 02/25/2025 Active Start: 01-07-2025 End: 01-14-2025 take 1 tablet by mouth every six hours as needed for pain HYDROcodone-acetaminophen (NORCO) 5-325 mg per tablet Indications: H/O thumb surgery , Primary osteoarthritis of first carpometacarpal joint of left hand , De Quervain's tenosynovitis Take 1 tablet by mouth every 6 hours as needed for pain for up to 7 days. 28 tablet 01/07/2025 01/14/2025 Start: 09-03-2023 End: 01-30-2024 take 1 tablet by mouth every six hours as needed HYDROcodone-acetaminophen ([place]) 5-325 MG tablet TAKE 1 TABLET BY MOUTH EVERY 6 HOURS NEEDED FOR 3 DAYS 09/03/2023 01/30/2024 Discontinued Start: 04-03-2021 End: 05-30-2021 take 1 tablet by mouth every six hours as needed for pain Hydrocodone-Acetaminophen 5-325 mg table t Discontinued 1 TAB PO Q6H as needed for pain 30 7 April 03, 2021 May 30, 2021 12:49am Start: 04-03-2021 End: 05-30-2021 Start: 05-15-2017 End: 01-04-2019 take 1 tablet by mouth every four to six hours as needed for pain Hydrocodone-Acetaminophen (V[place]odin) 5-30 0 mg Tablet Discontinued 1 TAB PO EVERY 4-6 HOURS as needed for Pain May 15, 2017 12:00am January 04, 2019 9:26pm Start: 05-15-2017 End: 01-04-2019 acetaminophen 325 mg / oxyCODONE hydrochloride 5 mg oral tablet (20 sources) Opioid Agonist Start: 01-14-2025 End: 01-27-2025 take 1 tablet by mouth every six hours as needed oxyCODONE-acetaminophen (PERCOCET) 5-325 mg tablet Indications: Postoperative state Take 1 tablet by mouth every 6 hours as needed for up to 7 days. 28 tablet 01/20/2025 01/27/2025 Active Start: 05-05-2024 End: 05-25-2024 take 1 tablet by mouth every six hours as needed for pain Oxycodone-Acetaminophen (Percocet) 5-325 mg tablet Discontinued 1 TAB PO Q6H as needed for pain 10 3 May 09, 2024 May 25, 2024 1:47pm Start: 03-12-2024 End: 03-23-2024 take 1 tablet by mouth every eight hours as needed for pain Oxycodone-Acetaminophen (Percocet) 5-325 mg tablet Discontinued 1 TAB PO Every 8 hours as needed for pain 7 2 March 12, 2024 March 23, 2024 6:36pm Start: 03-12-2024 End: 08-27-2024 Start: 10-20-2022 End: 11-03-2022 take 1 tablet by mouth every six hours as needed for pain Oxycodone-Acetaminophen (Percocet) 5-325 mg tablet Discontinued 1 - 2 TAB PO Every 6 hours as needed for pain 20 October 20, 2022 November 03, 2022 1:50am Start: 10-20-2022 End: 11-03-2022 Start: 04-10-2021 End: 05-30-2021 take 1 tablet by mouth every six hours as needed for pain Oxycodone-Acetaminophen (Percocet) 5-325 mg tablet Discontinued 1 TAB PO Q6H as needed for pain 10 3 April 10, 2021 May 30, 2021 12:49am Start: 04-10-2021 End: 05-30-2021 albuterol 0.83 mg/ml inhalation solution (20 sources) beta2-Adrenergic Agonist Start: 10-27-2024 take 2.5 mg by inhalation every six hours as needed albuterol (PROVENTIL) 2.5 mg /3 mL (0.083 %) nebulizer solution Use 2.5 mg via nebulizer every 6 hours as needed for wheezing/shortness of breath. 10/27/2024 Active Start: 10-27-2024 take 2.5 mg by inhal ation every six hours albuterol 0.083% Inh Valeria 3 mL 2.5 mg, 3 mL, NEB, q6hr wheezing/shortness of breath, 25 EA, Refill(s) 0, [facility], 160, cm, 10/26/24 21:21:00 EDT, Height/Length Dosing, 105, kg, 10/26/24 21:21:00 EDT, Weight Dosing Start Date: 10/27/24 Status: Ordered Quantity: 25.0 Unit: EA Repeat number: 1 Start: 10-10-2024 End: 12-23-2024 Albuterol Sulfate 90 mcg/act uation HFA aerosol inhaler Discontinued 2 INH INHALATION EVERY 4-6 HOURS as needed for shortness of breath or wheezing October 10, 2024 1:00am December 23, 2024 2:40pm administer with spacer Start: 09-27-2024 End: 12-23-2024 Albuterol Sulfate 90 mcg/act uation HFA aerosol inhaler Discontinued 2 INH INHALATION Q6H as needed for shortness of breath or wheezing September 27, 2024 1:00am December 23, 2024 2:40pm administer with spacer Start: 09-21-2024 End: 04-01-2025 Albuterol Sulfate (Ventolin Hfa) 90 mcg/actuation HFA aerosol inhaler Discontinued 1 - 2 INH INHALATION As Directed as needed for shortness of breath or wheezing September 21, 2024 1:00am April 01, 2025 4:50pm Start: 09-01-2024 take 1 puff(s) by in halation every six hours as needed VENTOLIN HFA 90 mcg/actuation inhaler Inhale 1 puff as instructed every 6 hours as needed. 09/01/2024 Active Start: 10-30-2023 End: 01-30-2024 albuterol HFA 90 mcg/act inh aler 10/30/2023 01/30/2024 Discontinued Start: 09-25-2022 take 2 puff(s) by in halation every four to six hours as needed Start: 06-14-2022 End: 02-23-2023 Albuterol Sulfate 90 mcg/act uation aerosol powdr breath activated Discontinued 1 INH INHALATION Q6H as needed for shortness of breath or wheezing 08 11June 14, 2022 1:00am February 23, 2023 8:12pm Start: 06-14-2022 End: 02-23-2023 Start: 05-23-2021 End: 05-30-2021 Albuterol Sulfate 90 mcg/act uation aerosol powdr breath activated Discontinued 1 INH INHALATION EVERY 4-6 HOURS as needed for shortness of breath or wheezing May 23, 2021 12:00am May 30, 2021 12:49am Start: 05-23-2021 End: 05-30-2021 Start: 09-21-2019 End: 08-07-2023 take 2.5 mg by inhalation every four hours as needed Albuterol Sulfate 2.5 mg /3 mL (0.083 %) Solution For Nebulization Discontinued 2.5 MG INHALATION Q4H as needed for Shortness Of Breath September 21, 2019 1:00am August 07, 2023 11:29pm Start: 09-21-2019 End: 08-07-2023 take 1 puff(s) by inhalation every four hours as needed Albuterol Sulfate 90 mcg/actuation Hfa Aerosol Inhaler Discontinued 2 PUFF INHALATION Q4H as needed for Shortness Of Breath September 21, 2019 1:00am August 07, 2023 11:29pm Start: 09-21-2019 End: 08-07-2023 Start: 09-21-2019 End: 08-07-2023 Start: 06-17-2017 Albuterol Sulf ate (2.5 MG/3ML) [...] / ipratropium bromide 0.167 mg/ml inhalation solution (20 sources) Anticholinergic, beta2-Adrenergic Agonist Start: take 3 mL by inhalation every six hours as needed ipratropium-albuter ol (DUONEB) 0.5 mg-3 mg(2.5 mg base)/3 mL nebu Inhale 3 mL as instructed every 6 hours as needed for wheezing/shortness of breath. 03/27/2023 Active take 3 mL by inhalat ion every six hours as needed Ipratropium-Albuterol 0.5-2.5 (3) MG/3ML 3 mL as needed Inhalation every 6 hrs Active Albuterol Sulfate 108 (90 Ba se) MCG/ACT (20 sources) Start: 06-14-2022 take 1 puff(s) by in halation every six hours as needed Start: 06-14-2022 take 1 puff(s) by in halation every six hours as needed Albuterol Sulfate 108 (90 Base) MCG/ACT 1 puff as needed Inhalation every 6 hrs ER Jun, Active Start: 06-14-2022 take 1 puff(s) by in halation every six hours as needed Albuterol Sulfate 108 (90 Base) MCG/ACT 1 puff as needed Inhalation every 6 hrs for 7 days ER 10 Jun, 2022 Active Blood-Glucose Sensor (Dexcom G7 Sensor) device (7 sources) Start: 02-16-2025 Blood-Glucose Sensor (Dexcom G7 Sensor) device Active EACH .ROUTE .MEDSUPPLY February 16, 2025 12:00am As directed Breo Ellipta 100-25 MCG/INH (20 sources) Start: 12-19-2021 take 1 puff(s) by inhalation once daily Start: 12-19-2021 take 1 puff(s) by in halation once daily Breo Ellipta 100-25 MCG/INH 1 puff Inhalation Once a day December, Not-Taking Start: 12-19-2021 take 1 puff(s) by in halation once daily Breo Ellipta 100-25 MCG/INH 1 puff Inhalation Once a day December, Active Caplyta 10.5 MG capsule (20 sources) Start: 10-28-2023 take 1 capsule by mouth once daily Caplyta 10.5 MG capsule Take 1 capsule by mouth Daily 10/28/2023 Active CAPLYTA 21 mg capsule (20 sources) Start: 11-17-2024 take 1 capsule by mouth once daily CAPLYTA 21 mg capsule Take 1 capsule by mouth once daily. 11/17/2024 Active 12 hr carBAMazepine 300 mg extended release oral capsule (20 sources) Mood Stabilizer Start: 11-23-2024 carBAMazepine ER (CARBATROL) 300 mg 12 hr capsule 1 capsule. 11/23/2024 Active Start: 06-16-2024 take 1 capsule by mo uth once daily Carbamazepine 300 mg capsule, ER multiphase 12 hr Active 600 MG PO Daily June 16, 2024 1:00am Complies with drug therapy Start: 06-16-2024 take 1 capsule by mo uth once daily Carbamazepine 300 mg capsule, ER multiphase 12 hr Active 300 MG PO Daily June 16, 2024 1:00am Complies with drug therapy Start: 06-16-2024 take 1 capsule by mo uth every twelve hours Carbamazepine 300 mg capsule, ER multiphase 12 hr Active 600 MG PO Once June 16, 2024 12:00am Start: 08-07-2023 End: 06-16-2024 take 1 tablet by mouth once daily Carbamazepine 200 mg tablet Discontinued 300 MG PO Daily May 25, 2024 1:48pm June 16, 2024 12:06pm Start: 08-07-2023 Carbamazepine Active MG TABLET August 07, 2023 12:00am Start: 05-22-2023 take 1 mg by mouth twice daily carbamazepine 200 mg ER Tab mg tab(s), Oral, BID, Refills(s) 0 Start Date: 05/22/23 Status: Ordered Repeat number: 1 Start: 11-03-2022 End: 05-25-2024 take 300 mg by mouth once daily Carbamazepine Active 3 00 MG PO Daily May 25, 2024 1:48pm Start: 08-21-2022 End: 08-07-2023 take 1 tablet by mouth twice daily Carbamazepine 200 mg tablet Discontinued 200 MG PO Twice daily November 03, 2022 12:00am August 07, 2023 11:29pm carBAMazepine Ac tive Comment on above: Take 200 mg by mouth twice daily. carbidopa 25 mg / levodopa 100 mg oral tablet (20 sources) Aromatic Amino Acid Decarboxylation Inhibitor, Aromatic Amino Acid Start: take 1 tablet by mouth in the morning carbidopa-levodo pa (Sinemet) 25-100 MG tablet Take 1 tablet by mouth in the morning and 1 tablet before bedtime. 11/27/2023 Active Start: 05-15-2017 End: 08-07-2023 take 1 tablet by mouth once daily at bedtime Carbidopa-Levodopa 25-100 mg tablet Active 1 TAB PO Daily at bedtime August 07, 2023 1:00am Complies with drug therapy Start: 05-15-2017 End: 08-07-2023 take 1 tablet by mouth in the morning carbidopa-levodopa (Sinemet) 25-100 MG tablet Take 1 tablet by mouth in the morning and 1 tablet before bedtime. 11/27/2023 Active Start: 05-29-2015 carbidopa-levo dopa (SINEMET 10-100) 10-100 mg per tablet 1 tablet daily at bedtime. 05/29/2015 Active End: 01-30-2024 carbidopa-levodopa (Sinemet) 10-100 MG tablet 25-100 tablets. 01/30/2024 Discontinued take 1 tablet by roly th at bedtime as needed Carbidopa-Levodopa 25-100 MG TAKE 1 TABLET BY MOUTH AT BEDTIME NEEDED for 30 Active Comment on above: 1 tablet daily at be dtime. cetirizine hydrochloride 10 mg oral tablet (1 source) Histamine-1 Receptor Antagonist Start: cetirizine (ZYRTEC) 10 mg tablet 04/09/2025 Active cholecalciferol 1.25 mg oral capsule (20 sources) Vitamin D Start: 024 take 1 capsule by mouth every week cholecalciferol 1.25 MG (90870 UT) capsule Take 50,000 Units by mouth 1 (one) time per week 09/26/2023 Active Comment on above: Take 1 capsule by mo uth one time a week. clindamycin 150 mg oral capsule (20 sources) Lincosamide Antibacterial Start: 025 clindamycin (CLEOCIN) 150 mg capsule Take 4 caps 1 hour prior to dentist 12 capsule 1 12/22/2024 Active Start: 11-21-2024 End: 12-16-2024 take 1 capsule by mouth three times daily clindamycin (CLEOCIN) 300 mg capsule Take 300 mg by mouth three times a day. 11/21/2024 12/16/2024 Discontinued (Course of therapy completed) Start: 07-04-2019 End: 09-21-2019 take 1 capsule by mouth every eight hours Clindamycin Hcl 300 mg capsule Discontinued 300 MG PO Q8H July 04, 2019 1:00am September 21, 2019 11:30am Start: 04-30-2019 End: 06-26-2019 take 1 capsule by mouth every six hours Clindamycin Hcl 300 mg capsule Discontinued 300 MG PO Q6H 01 03April 30, 2019 12:00am June 26, 2019 12:30pm Start: 04-30-2019 End: 06-26-2019 Compression stockings, 20-30 mmHg, calf 20-30mmHg (20 sources) Start: 04-26-2022 Start: 04-26-2022 Start: 04-26-[address] ockings, 20-30mmHg, calf 20-30mmHg 1 externally daily as directed for 90 days Apr, Active Start: 04-26-[address] [place]ckings, 20-30mmHg, calf 20-30mmHg 1 externally daily as directed for 90 day Apr, Active Continuous Blood Gluc Program Director/Music Director (Dexcom G7 Program Director/Music Director) device (20 sources) Start: 03-22-2023 Continuous Blood Gluc Program Director/Music Director (Dexcom G7 Program Director/Music Director) device USE DIRECTED 03/22/2023 Active Continuous Blood Gluc Sensor (Dexcom G7 Sensor) misc (20 sources) Start: 04-18-2023 Continuous Blood Gluc Sensor (Dexcom G7 Sensor) [facility] [place]ED 04/18/2023 Active DEXCOM G7 SENSOR beth (1 source) Start: 04-09-2025 DEXCOM G7 SENSOR beth as directed. 04/09/2025 Active dextromethorphan hydrobromide 1.5 mg/ml / pyrilamine maleate 1.5 mg/ml oral solution (17 sources) Uncompetitive B-[id number]-Y-aspart ate Receptor Antagonist, Sigma-1 Agonist Start: 09-25-2022 take 10 mL by mouth every eight hours dulaglutide (TRULICITY) 4.5 mg/0.5 mL pen injector (20 sources) inject 4.25 mg by subcutaneous injection every week dulaglutide (TRULICITY) 4.5 mg/0.5 mL pen injector Inject 4.25 mg subcutaneously one time a week. Active inject 4.25 mg by alejandra bcutaneous injection every week dulaglutide (TRULICITY) 4.5 mg/0.5 mL pe n injector Inject 4.25 mg subcutaneously one time a week. 0 Active Comment on above: Inject 4.25 mg subcu taneously one time a week. Dulaglutide 4.5 mg/0.5 mL pen injector (20 sources) Start: 09-07-2024 Dulaglutide 4.5 mg/0.5 mL pen injector Active 4.5 MG SUBCUT every week 2 September 07, 2024 9:44am Start: 09-07-2024 Dulaglutide 4. 5 mg/0.5 mL pen injector Active 4.5 MG SUBCUT every week 2 September 07, 2024 8:44am Start: 08-14-2024 End: 09-07-2024 Dulaglutide 4.5 mg/0.5 mL pe n injector Discontinued 4.5 MG SUBCUT every week August 14, 2024 3:19pm September 07, 2024 9:44am Start: 08-14-2024 End: 09-07-2024 Dulaglutide 4.5 mg/0.5 mL pe n injector Discontinued 4.5 MG SUBCUT every week 2 August 14, 2024 2:19pm September 07, 2024 8:44am Start: 08-14-2024 Dulaglutide 4. 5 mg/0.5 mL pen injector Active 4.5 MG SUBCUT every week 2 August 14, 2024 2:19pm Start: 06-16-2024 End: 08-14-2024 Dulaglutide 4.5 mg/0.5 mL pe n injector Discontinued 4.5 MG SUBCUT every week 2 June 16, 2024 12:28pm August 14, 2024 3:19pm Start: 06-16-2024 End: 08-14-2024 Dulaglutide 4.5 mg/0.5 mL pe n injector Discontinued 4.5 MG SUBCUT every week 2 June 16, 2024 11:28am August 14, 2024 2:19pm Start: 06-16-2024 Dulaglutide 4. 5 mg/0.5 mL pen injector Active 4.5 MG SUBCUT every week 2 June 16, 2024 11:28am Start: 06-01-2024 End: 06-16-2024 Dulaglutide 4.5 mg/0.5 mL pe n injector Discontinued 4.5 MG SUBCUT every week 2 June 01, 2024 9:47am June 16, 2024 12:28pm Start: 06-01-2024 End: 06-16-2024 Dulaglutide 4.5 mg/0.5 mL pe n injector Discontinued 4.5 MG SUBCUT every week 2 June 01, 2024 8:47am June 16, 2024 11:28am Start: 06-01-2024 End: 06-01-2024 Dulaglutide 4.5 mg/0.5 mL pe n injector Discontinued 4.5 MG SUBCUT every week 2 June 01, 2024 8:52am June 01, 2024 9:48am Start: 06-01-2024 End: 06-01-2024 Dulaglutide 4.5 mg/0.5 mL pe n injector Discontinued 4.5 MG SUBCUT every week 2 June 01, 2024 7:52am June 01, 2024 8:48am Start: 02-19-2024 End: 06-01-2024 Dulaglutide 4.5 mg/0.5 mL pe n injector Discontinued 4.5 MG SUBCUT every week 2 February 19, 2024 9:15am June 01, 2024 8:52am Start: 02-19-2024 End: 06-01-2024 Dulaglutide 4.5 mg/0.5 mL pe n injector Discontinued 4.5 MG SUBCUT every week 2 February 19, 2024 8:15am June 01, 2024 7:52am duloxetine 60 mg Cap-DR (4 sources) Start: 05-02-2022 take 1 capsule by mouth once daily duloxetine 60 mg Cap-DR 60 mg, Oral, Daily Start Date: 05/02/22 Status: Ordered Repeat number: 1 Start: 05-02-2022 take 1 capsule by [facility] once daily duloxetine 60 mg Cap-DR 60 mg, Oral, Daily Start Date: 05/02/22 Status: Ordered 30 actuat fluticasone furoate 0.1 mg/actuat / vilanterol 0.025 mg/actuat dry powder inhaler (18 sources) Corticosteroid, beta2-Adrenergic Agonist Start: 12-19-2021 take 1 puff(s) by inhalation once daily Breo Ellipta 100-25 MCG/INH 1 puff Inhalation Once a day for 30 days December, Active glipiZIDE 5 mg oral tablet (20 sources) Sulfonylurea Start: 08-07-2023 Glipizide Active MG TABLET August 07, 2023 12:00am Start: 05-22-2023 take 1 mg by mouth once daily glipiZIDE 5 mg ER Tab mg tab(s), Oral, Daily, Refills(s) 0 Start Date: 05/22/23 Status: Ordered Repeat number: 1 Start: 04-30-2023 End: 10-28-2023 take 1 tablet by mouth once daily before breakfast Glipizide 5 mg tablet Active 5 MG PO Daily before breakfast September 01, 2024 1:00am Complies with drug therapy Comment on above: Take 5 mg by mouth d aily before breakfast. ipratropium bromide 0.2 mg/ml inhalation solution (5 sources) Anticholinergic Start: 05-22-20 take 1 ug by inhalation four times daily ipratropium 0.02% Inh Valeria 2.5 mL mcg, mL, NEB, QID, Refill(s) 0 Start Date: 05/22/23 Status: Ordered Repeat number: 1 Start: 05-22-2023 End: 01-30-2024 ipratropium (Atrovent) 0.02 % nebulizer solution mcg, mL, NEB, QID, Refill(s) 0 05/22/2023 01/30/2024 Discontinued isopropyl alcohol 0.7 ml/ml medicated pad (20 sources) Start: 06-10-2023 Alcohol Swabs (B-D SINGLE USE SWABS REGULAR) pads USE SWAB EXTERNALLY DIRECTED 4 TIMES DAILY 06/10/2023 Active Victoza (20 sources) GLP-1 Receptor Agonist Start: [...] (18 mg/3 mL) subcutaneous pen injector Lumateperone (20 sources) Start: 09-01-2024 take 1 capsule by mouth once daily Start: 09-01-2024 take 1 capsule by mo uth once daily Lumateperone (Caplyta) 21 mg capsule Active 21 MG PO Daily September 01, 2024 1:00am Complies with drug therapy Start: 09-01-2024 Start: 09-01-2024 take 1 capsule by mo uth once daily Lumateperone (Caplyta) 21 mg capsule Active 21 MG PO Daily September 01, 2024 1:00am Start: 09-01-2024 take 1 capsule by mo uth once daily Lumateperone (Caplyta) 21 mg capsule Active 21 MG PO Daily September 01, 2024 12:00am lumateperone (CAPLYTA) 10.5 mg capsule (18 sources) take 1 capsule by mo uth once daily lumateperone (CAPLYTA) 10.5 mg capsule Take 10.5 mg by mouth once daily. Active take 1 capsule by mouth once dawson ly lumateperone (CAPLYTA) 10.5 mg capsule Take 10.5 mg by mouth once daily. 0 Active Comment on above: Take 10.5 mg by mout h once daily. meclizine hydrochloride 25 mg oral tablet (10 sources) Antiemetic Start: 04-02-2025 take 1 tablet by mouth every eight hours as needed Start: 02-16-2025 End: 04-01-2025 take 1 tablet by mouth four times daily as needed Meclizine 25 mg tablet,chewable Discontinued 25 MG PO Four times daily as needed February 16, 2025 12:00am April 01, 2025 12:45pm Start: 10-18-2023 End: 01-30-2024 Meclizine HCl 25 MG chewable tablet every 8 (eight) hours 10/18/2023 01/30/2024 Discontinued methylPREDNISolone (20 sources) Corticosteroid Start: 04-19-2025 End: 04-26-2025 methylPREDNISolone (Medrol Dospak) 4 MG tablets Indications: Rash and nonspecific skin eruption , Acute left-sided low back pain with left-sided sciatica Follow schedule on package instructions 21 tablet 04/19/2025 04/26/2025 Active Start: 12-01-2024 End: 04-19-2025 methylPREDNISolone (Medrol D ospak) 4 MG tablets Indications: Capsulitis of metatarsophalangeal (MTP) joint of right foot Follow schedule on MEDROL PACK package instructions to be used as directed 21 tablet 12/01/2024 04/19/2025 Discontinued (Therapy completed) Start: 12-01-2024 methylPREDNISo lone (Medrol Dospak) 4 MG tablets Indications: Capsulitis of metatarsophalangeal (MTP) joint of right foot Follow schedule on MEDROL PACK package instructions to be used as directed 21 tablet 12/01/2024 Active Start: 09-17-2024 End: 12-23-2024 take 1 tablet by mouth once Methylprednisolone (Medrol ([place])) 4 mg tablets,dose pack Discontinued 0 PO per package directions September 17, 2024 1:00am December 23, 2024 2:41pm orally per package directions; PO PER PKG DIR for 6 days Start: 09-17-2024 Start: 01-11-2016 Depo-Medrol 80 mg Jan, 1 mL metoclopramide 5 mg oral tablet (13 sources) Dopamine-2 Receptor Antagonist Start: 04-02-2022 take 1 tablet by mouth every twelve hours Reglan 5 MG 1 tablet before meals Orally Twice a day for 30 day(s) Mar, Active nabumetone 500 mg oral tablet (20 sources) Nonsteroidal Anti-inflammatory Drug Start: 11-13-2023 take 1 tablet by mouth twice daily as needed nabumetone (Relafen) 500 MG tablet Take 500 mg by mouth 2 (two) times a day as needed 11/13/2023 Active Start: 10-27-2023 End: 04-01-2025 take 1 tablet by mouth twice daily Nabumetone 750 mg tablet Discontinued 750 MG PO Twice daily October 27, 2023 12:00am April 01, 2025 12:45pm Nurtec ODT (4 sources) Start: 05-02-2022 take 75 mg by mouth once Nurte c ODT 75 mg, Oral, Once Start Date: 05/02/22 Status: Ordered Repeat number: 1 Start: 05-02-2022 take 75 mg by mouth once Nurte c ODT 75 mg, Oral, Once Start Date: 05/02/22 Status: Ordered nystatin 100 unt/mg topical powder (6 sources) Polyene Antifungal Start: 04-01-2025 Nystatin 10 0,000 unit/gram powder Active 1 APPLIC TOPICAL Three times daily April 01, 2025 12:00am Complies with drug therapy Start: 02-22-2025 End: 02-22-2026 nystatin (Mycostatin) [id number] UNIT/GM powder Indications: Candidal skin infection Apply to affected area 3 times daily 30 g 2 02/22/2025 02/22/2026 Active omeprazole 40 mg delayed release oral capsule (20 sources) Proton Pump Inhibitor Start: 04-02-2022 take 1 capsule by mouth once daily Omeprazole 40 MG 1 capsule 30 minutes before morning meal Orally Once a day for 30 day(s) Mar, Active Start: 09-21-2019 End: 09-23-2019 take 1 capsule by mouth once daily Omeprazole 10 mg Capsule,Delayed Release(Dr/Ec) Discontinued 10 MG PO Daily September 21, 2019 1:00am September 23, 2019 10:51am Start: 09-21-2019 End: 09-23-2019 take 10 mg by mouth once daily Omeprazole Discontinued 10 MG PO Daily September 21, 2019 1:00am September 23, 2019 10:51am polyethylene glycol 3350 32685 mg powder for oral solution (13 sources) Osmotic Laxative Start: 11-28-2023 polyethylene glycol 3350 (MIRALAX) 17 gram/dose powder Indications: Other constipation Take 17 g by mouth once daily as needed. 166 g 2 11/28/2023 Active pramipexole dihydrochloride 0.5 mg oral tablet (20 sources) Nonergot Dopamine Agonist Start: 02-16-2025 take 1 tablet by mouth once daily at bedtime Pramipexole 0.5 mg tablet Active 0.5 MG PO Daily at bedtime February 16, 2025 12:00am Complies with drug therapy Start: 10-06-2023 End: 02-16-2025 take 4 tablets by mouth once daily Pramipexole 0.125 mg tablet Discontinued 0.5 MG PO Daily October 06, 2023 1:00am February 16, 2025 8:36am Start: 10-06-2023 Pramipexole Ac tive MG TABLET October 06, 2023 1:00am Start: 10-02-2023 End: 05-30-2024 take 1 tablet by mouth in the morning pramipexole (Mirapex) 0.125 MG tablet Indications: RLS (restless legs syndrome) Take 1 tablet (0.125 mg) by mouth in the morning and 1 tablet (0.125 mg) before bedtime. 60 tablet 1 03/31/2024 Active Comment on above: TAKE 1 TABLET BY ROLY 2 TO 3 HOURS BEFORE BEDTIME predniSONE 50 mg oral tablet (20 sources) Start: 10-27-2024 End: 11-01-2024 take 1 tablet by mouth once daily predniSONE 50 mg Tab 50 mg = 1 tab(s), Oral, Daily, X 5 day(s), # 5 tab(s), Refills(s) 0, Pharmacy: [facility], 160, cm, 10/26/24 21:21:00 EDT, Height/Length Dosing, 105, kg, 10/26/24 21:21:00 EDT, Weight Dosing Start Date: 10/27/24 Stop Date: 11/01/24 Status: Ordered Quantity: 5.0 Unit: tab(s) Repeat number: 1 Start: 10-10-2024 End: 12-23-2024 take 2 tablets by mouth once daily Prednisone 20 mg tablet Discontinued 40 MG PO Daily 6 October 23, 2024 12:00am December 23, 2024 2:42pm Start: 01-03-2024 End: 02-18-2024 take 3 tablets by mouth once daily Prednisone 20 mg tablet Discontinued 60 MG PO Daily 15 January 03, 2024 12:00am February 18, 2024 3:56pm Start: 01-03-2024 End: 02-18-2024 Start: 01-03-2024 End: 02-18-2024 take 60 mg by mouth once daily Prednisone Discontinued 60 MG PO Daily 15 January 03, 2024 12:00am February 18, 2024 3:56pm Start: 03-16-2023 take 3 tablets by mo [facility] once daily, then take 2 tablets by mouth once daily, then take 1 tablet by mouth once daily prednisone 20 mg DIRECTED orally daily 3 tabs a day for 3 days, 2 tabs a day for 3 days, 1 tab a day for 3 days Mar, Active Start: 03-16-2023 End: 08-07-2023 Prednisone 20 mg tablet Discontinued 0 .ROUTE .COMPLEX 18 March 16, 2023 12:00am August [...] Start: 06-18-2022 take 2 tablets by mo ut every twenty-four hours predniSONE 20 MG 2 tablets Orally Once a day for 5 days Jun, Active Start: 01-22-2022 take 2 tablets by mo uth every twenty-four hours predniSONE 20 MG 2 tablets Orally Once a day for 5 days Jan, Active Start: 05-23-2021 End: 05-30-2021 take 1 tablet by mouth once daily Prednisone 20 mg tablet Discontinued 20 MG PO Daily 3 3 May 23, 2021 12:00am May 30, 2021 12:49am Start: 05-23-2021 End: 05-30-2021 Start: 06-01-2017 End: 06-05-2017 take 1 tablet by mouth once daily at mealtime Prednisone 50 mg tablet Discontinued 50 MG PO Daily 4 June 01, 2017 12:00am June 04, 2017 12:00am June 05, 2017 12:02am administer with food or milk pregabalin 100 mg oral capsule (20 sources) Start: 10-28-2023 End: 04-01-2025 take 2 capsules by mouth once daily at bedtime Pregabalin 50 mg capsule Discontinued 100 MG PO Daily at bedtime October 28, 2023 10:14am April 01, 2025 12:45pm Start: 09-12-2023 take 1 capsule by [facility] morning pregabalin (Lyrica) 100 MG capsule Take 100 mg by mouth in the morning and 100 mg before bedtime. 09/12/2023 Active Start: 08-07-2023 End: 10-28-2023 take 1 capsule by mouth twice daily Pregabalin 100 mg capsule Active 100 MG PO Twice daily April 01, 2025 12:00am Complies with drug therapy Start: 08-07-2023 End: 10-28-2023 take 4 capsules by mouth twice daily Pregabalin 25 mg capsule Discontinued 100 MG PO Twice daily August 07, 2023 1:00am October 28, 2023 10:15am Start: 08-07-2023 End: 10-28-2023 Pregabalin 50 mg capsule Discontinued MG August 07, 2023 1:00am October 28, 2023 10:16am Start: 08-07-2023 End: 10-28-2023 Pregabalin 50 mg capsule Discontinued MG August 07, 2023 1:00am October 28, 2023 10:16am Start: 08-07-2023 End: 10-28-2023 Pregabalin 50 mg capsule Discontinued MG August 07, 2023 12:00am October 28, 2023 9:16am Start: 08-07-2023 End: 10-28-2023 Pregabalin Discontinued MG J an2023 1:00am October 28, 2023 10:16am Start: 08-07-2023 Pregabalin Act sushma MG August 07, 2023 1:00am Start: 08-07-2023 Pregabalin Act sushma MG August 07, 2023 12:00am take 1 capsule by mo uth once daily pregabalin (LYRICA) 150 mg capsule Take 150 mg by mouth once daily. Active Comment on above: Take 50 mg by mouth two times a day. QUEtiapine 50 mg oral tablet (20 sources) Atypical Antipsychotic Start: take 1 tablet by mouth once daily at bedtime Quetiapine 50 mg tablet Active 50 MG PO Daily at bedtime September 01, 2024 1:00am Complies with drug therapy Start: 04-28-2024 take 1 tablet by roly at bedtime QUEtiapine (SEROquel) 25 MG tablet Take 25 mg by mouth at bedtime 04/28/2024 Active ramelteon 8 mg oral tablet (4 sources) Melatonin Receptor Agonist take 1 tablet by mouth every twenty-four hours Ramelteon 8 MG 1 tablet at bedtime as needed Orally Once a day Active rimegepant 75 mg disintegrating oral tablet (20 sources) Start: 08-26-19 Rimegepant Sulfate (Nurtec) 75 MG tablet dispersible Indications: Episodic migraine TAKE 1 TABLET BY MOUTH AT THE ONSET OF MIGRAINE Take no more than 1 dose in 48 hrs. 8 tablet 2 08/26/2024 Active Start: 03-20-2021 End: 08-07-2023 Rimegepant (Nurtec Odt) 75 m g tablet,disintegrating Active 75 MG PO As Directed August 07, 2023 1:00am Complies with drug therapy Start: 03-20-2021 End: 02-23-2023 take 1 tablet by mouth every other day as needed for headache Rimegepant (Nurtec Odt) 75 mg tablet,disintegrating Discontinued 75 MG PO Q2D as needed for migraine headache February 01, 2023 12:00am February 23, 2023 8:13pm rimegepant sulfate (NURTEC O DT ORAL) (20 sources) rimegepant sulfa te (NURTEC ODT ORAL) Take 75 mg by mouth. Active rimegepant sulfa te (NURTEC ODT ORAL) Take 75 mg by mouth. 0 Active Comment on above: Take 75 mg by mouth. SITagliptin 25 mg oral tablet (2 sources) Dipeptidyl Peptidase 4 Inhibitor take 1 tablet by mouth once daily SITagliptin (Januvia) 25 MG tablet Take 25 mg by mouth Daily Active spironolactone 50 mg oral tablet (5 sources) Aldosterone Antagonist Start: 03-16-20 End: 05-15-20 take 1 tablet by mouth once daily Spironolactone 50 mg tablet Active 50 MG PO Daily April 01, 2025 12:00am Complies with drug therapy Trulicity 3 MG/0.5ML solution pen-injector (20 sources) Start: 11-26-19 Trulicity 3 MG/0.5ML solution pen-injector Administer the contents of one prefilled pen subcutaneously once weekly as directed 11/26/2023 Active Vitamin B12 1000 mcg Tab (3 sources) Start: 05-22-20 take 1 ug by mouth once daily Vitamin B12 1000 mcg Tab mcg tab(s), Oral, Daily, Refills(s) 0 Start Date: 05/22/23 Status: Ordered Repeat number: 1 Start: 05-22-2023 take 1 ug by mouth once daily Vitamin B12 1000 mcg Tab mcg tab(s), Oral, Daily, Refills(s) 0 Start Date: 05/22/23 Status: Ordered (18 sources) Start: 09-07-2024 Start: 08-14-2024 End: 09-07-2024 Start: 06-16-2024 End: 08-14-2024 Start: 06-01-2024 End: 06-16-2024 Start: 06-01-2024 End: 06-01-2024 Start: 02-19-2024 End: 06-01-2024 Start: 02-18-2024 End: 02-19-2024 Start: 02-18-2024 End: 02-18-2024 Start: 12-24-2023 End: 02-18-2024 Start: 11-26-2023 End: 12-24-2023 Start: 10-31-2023 End: 10-31-2023 Start: 10-30-2023 End: 11-26-2023 Start: 10-28-2023 End: 10-30-2023 Start: 10-28-2023 Start: 08-07-2023 End: 10-28-2023 Start: 08-07-2023 End: 10-28-2023 Start: 08-07-2023 End: 10-28-2023 Start: 09-21-2019 End: 09-23-2019 Completed/Discontinued Medications Medication Drug Class(es) Dates Sig (Normalized) Sig (Original) acetaminophen 325 mg / butalbital 50 mg / caffeine 40 mg oral capsule (20 sources) Barbiturate, Central Nervous System Stimulant, Methylxanthine Start: 09-21-2019 End: 01-21-2020 take 1 capsule by mouth every four hours as needed for pain Butalbital-Acetam inophen-Caff (Esgic) 50-325-40 mg Capsule Discontinued 1 CAP PO Q4H as needed for Pain September 21, 2019 1:00am January 21, 2020 9:14am Start: 09-21-2019 End: 01-21-2020 ascorbic acid 500 mg oral tablet (20 sources) Vitamin C Start: 11-03-2022 End: 02-23-2023 take 1 tablet by mouth once daily Ascorbic Acid (Vitamin C) (Vitamin C) 500 mg Tablet Discontinued 500 MG PO Daily November 03, 2022 12:00am February 23, 2023 8:12pm azithromycin 250 mg oral tablet (8 sources) Macrolide Antimicrobial Start: 04-09-2025 End: 04-19-2025 azithromycin (Zithromax) 250 MG tablet 250 mg 04/09/2025 04/19/2025 Discontinued (Therapy completed) Start: 06-18-2022 Azithromycin 2 50 MG 2 tablet on the first day, then 1 tablet daily for 4 days Orally Once a day for 5 day(s) Jun, Active B-12 - up to 1000 mcg (20 [...] 0.25- 0.4 % 1 Drop (FLURESS) benzonatate 100 mg oral capsule (20 sources) Non-narcotic Antitussive Start: 09-28-2024 End: 12-16-2024 take 1 capsule by mouth every twelve hours as needed benzonatate (TESSALON PERLE) 100 mg capsule Take 100 mg by mouth two times a day as needed for cough. 09/28/2024 12/16/2024 Discontinued (Course of therapy completed) Start: 09-27-2024 End: 10-01-2024 Benzonatate 100 mg capsule Discontinued 100 MG PO 2-3 TIMES PER DAY as needed for cough September 27, 2024 1:00am October 01, 2024 11:19am Start: 08-29-2024 End: 09-17-2024 take 1 capsule by mouth three times daily as needed for cough Benzonatate 100 mg capsule Discontinued 100 MG PO Three times daily as needed for cough August 29, 2024 1:00am September 17, 2024 7:37pm Start: 08-29-2024 End: 09-17-2024 Start: 03-16-2023 End: 08-07-2023 take 1 capsule by mouth three times daily as needed for cough Benzonatate 200 mg capsule Discontinued 200 MG PO Three times daily as needed for cough 14 March 16, 2023 12:00am August 07, 2023 11:29pm Start: 06-14-2022 End: 06-29-2022 take 1 capsule by mouth twice daily as needed for cough Benzonatate 100 mg capsule Discontinued 100 MG PO Twice daily as needed for cough 14 June 14, 2022 1:00am June 29, 2022 7:40pm Start: 06-01-2017 End: 02-23-2018 take 1 capsule by mouth every eight hours as needed for cough Benzonatate (Tessalon Perles) 100 mg capsule Discontinued 100 MG PO Q8H as needed for cough June 01, 2017 12:00am February 23, 2018 9:24pm Start: 06-01-2017 End: 02-23-2018 betamethasone 0.5 mg/ml topical cream (2 sources) Corticosteroid Start: 08-12-2023 End: 01-30-2024 betamethasone dipropionate 0.05 % cream Indications: Rash and other nonspecific skin eruption Apply to affected areas, up to twice a day when flared, do not use one the face, groin, or underarms, 30 day supply 45 g 11 08/12/2023 01/30/2024 Discontinued betamethasone 3 mg/ml / betamethasone acetate 3 mg/ml injectable suspension (2 sources) Corticosteroid Start: 08-31-2024 End: 08-31-2024 betamethasone acetate-betamethasone sodium phosphate 6 mg injection (CELESTONE) Start: 08-31-2024 End: 08-31-2024 6 mg, Injection - FOR ORTHO USE ONLY, ONCE, 1 dose, Starting on Sat08/31/24 at 1522, Until Sat08/31/24 at 1522 brompheniramine maleate 0.4 mg/ml / dextromethorphan hydrobromide 2 mg/ml / pseudoephedrine hydrochloride 6 mg/ml oral solution (20 sources) alpha-Adrenergic Agonist, Uncompetitive G-husvrg-D-aspartate Receptor Antagonist, Sigma-1 Agonist Start: 01-03-2024 End: 02-18-2024 take 1 mL by mouth four times daily as needed Snrqqytnxynytya-Btlocadxv-Bo (Bromfed Dm) 2-30-10 mg/5 mL syrup Discontinued 5 ML PO Four times daily as needed for cold symptoms January 03, 2024 12:00am February 18, 2024 3:55pm Start: 01-03-2024 End: 02-18-2024 Start: 04-08-2023 End: 08-07-2023 take 1 mL by mouth four times daily as needed Wcgjlkgklrnwhci-Zzmripmtz-Go (Bromfed Dm) 2-30-10 mg/5 mL syrup Discontinued 5 ML PO Four times daily as needed for cold symptoms April 08, 2023 12:00am August 07, 2023 11:29pm Start: 04-08-2023 End: 08-07-2023 Start: 06-18-2022 take 5 mL by mouth e very six hours as needed Tcwebbmzx-Fiwxiger-VI 30-2-10 MG/5ML 5 ml as needed Orally every 6 hrs for 5 days Jun, Active Start: 12-10-2021 take 5 mL by mouth e very six hours as needed Yxahjmfgd-Pbpvpsad-BW 30-2-10 MG/5ML 5 ml as needed Orally every 6 hrs for 5 days Jul, Active 120 actuat budesonide 0.16 mg/actuat / formoterol fumarate 0.0045 mg/actuat metered dose inhaler (20 sources) Corticosteroid, beta2-Adrenergic Agonist Start: 02-16-2025 End: 04-01-2025 Budesonide-Formoterol (Symbicort) 160-4.5 mcg/actuation HFA aerosol inhaler Discontinued INHALATION February 16, 2025 12:00am April 01, 2025 4:50pm Start: 12-03-2024 take 2 puff(s) by mo uth twice daily SYMBICORT 160-4.5 mcg/actuation inhaler INHALE 2 PUFFS BY MOUTH 2 TIMES A DAY FOR 30 DAYS 12/03/2024 Active Start: 09-25-2023 End: 01-30-2024 Symbicort 160-4.5 MCG/ACT in haler INHALE 2 PUFFS BY MOUTH TWICE DAILY NEEDED FOR UP TO 12 PUFFS 09/25/2023 01/30/2024 Discontinued Start: 08-07-2023 End: 10-28-2023 Budesonide-Formoterol (Symbi alpesh) 160-4.5 mcg/actuation HFA aerosol inhaler Discontinued 2 INH INHALATION Twice daily August 07, 2023 1:00am October 28, 2023 10:13am Start: 08-07-2023 End: 10-28-2023 Start: 11-03-2022 End: 02-23-2023 take 1 puff(s) by inhalation twice daily Budesonide-Formoterol (Symbicort) 160-4.5 mcg/actuation HFA aerosol inhaler Discontinued 2 PUFF INHALATION Twice daily November 03, 2022 12:00am February 23, 2023 8:12pm Start: 11-03-2022 End: 02-23-2023 Start: 01-21-2020 End: 03-20-2021 Start: 01-21-2020 End: 03-20-2021 take 1 puff(s) [...] 2 puff(s) by in halation once daily calcipotriene 0.05 mg/ml topical solution (2 sources) Vitamin D Analog End: 01-30-2024 Calcipotriene 0.005 % ointment APPLY TO SCALP TOPICALLY OR MIX WITH CLOBETASOL SHAMPOO 2- 3 TIMES A WEEK 01/30/2024 Discontinued carbidopa 25 mg / entacapone 200 mg / levodopa 100 mg oral tablet (2 sources) Aromatic Amino Acid Decarboxylation Inhibitor, Mhlzvfqj-B-Siqbiynqx nsferase Inhibitor, Aromatic Amino Acid End: 01-30-2024 carbidopa-levodopa- entacapone (Stalevo) 25-100-200 MG tablet 1 (one) time each day at the same time 01/30/2024 Discontinued cefdinir 300 mg oral capsule (20 sources) Cephalosporin Antibacterial Start: 05-05-2024 End: 06-16-2024 take 1 capsule by mouth twice daily Cefdinir 300 mg capsule Discontinued 300 MG PO Twice daily 24 05May 05, 2024 12:00am June 16, 2024 12:06pm celecoxib 200 mg oral capsule (20 sources) Nonsteroidal Anti-inflammatory Drug Start: 11-22-2020 End: 01-30-2024 take 1 capsule by mouth once daily Celecoxib 200 mg capsule Discontinued 200 MG PO Daily November 03, [...] procedure, # 2 cap(s), Refills(s) 0, Pharmacy: [id number], 91.7, kg, 05/02/22 10:38:00 EDT, Weight Dosing Start Date: 05/29/22 Status: Ordered clarithromycin 500 mg oral tablet (20 sources) Macrolide Antimicrobial Start: 05-30-2021 End: 09-04-2021 take 1 tablet by mouth twice daily Clarithromycin 500 mg tablet Discontinued 500 MG PO Twice daily 14 May 30, 2021 12:00am September 04, 2021 2:08am clobetasol propionate 0.5 mg/ml medicated shampoo (20 sources) Corticosteroid Start: 08-07-2023 End: 03-23-2024 Clobetasol 0.05 % shampoo Discontinued TOPICAL August 07, 2023 1:00am March 23, 2024 6:37pm Start: 04-01-2023 End: 11-21-2024 clobetasol (Temovate) 0.05 % external solution Indications: Psoriasis vulgaris (CMS/HCC) Apply to scalp every day prn flares 50 mL 11 04/01/2023 11/21/2024 Discontinued (Therapy completed) Start: 04-01-2023 End: 11-21-2024 Clobetasol Propionate 0.05 % shampoo Indications: Psoriasis vulgaris (CMS/HCC) LATHER ON WET HAIR TOPICALLY, LEAVE ON FOR 5 MINUTES THEN RINSE. USE 2 TO 3 TIMES A WEEK 118 mL 11 04/01/2023 11/21/2024 Discontinued Start: 11-03-2022 End: 03-23-2024 Clobetasol 0.05 % shampoo Di scontinued 1 APPLIC TOPICAL Use as Directed November 03, 2022 12:00am August 07, 2023 11:29pm 2-3 times a week Start: 04-13-2021 Clobetasol Pro pionate 0.05 % 1 application Externally Once a day for 10 day(s) dispense QS for 10 days. Apr, Not-Taking colistin 3 mg/ml / hydrocortisone 10 mg/ml / neomycin 3.3 mg/ml / thonzonium bromide 0.5 mg/ml otic suspension (2 sources) Aminoglycoside Antibacterial, Corticosteroid Start: 10-02-2023 End: 01-30-2024 zlqqrmml-ursjxlsz-pklgbjlkpc sone-thonzonium (Cortisporin-TC) 3.3-3-10-0.5 MG/ML otic suspension every 8 (eight) hours 10/02/2023 01/30/2024 Discontinued dextromethorpha n hydrobromide 3 mg/ml / promethazine hydrochloride 1.25 mg/ml oral solution (20 sources) Phenothiazine, Uncompetitive U-nhorxh-Z-aspa rtate Receptor Antagonist, Sigma-1 Agonist Start: 07-22-2022 End: 11-03-2022 t a k e 1 m L b y m o u t h e v e r y s i x h o u r s a s n e e d e d f o r c o u g h Promethazine-Dm 6.25-15 mg/5 mL syrup Discontinued 5 ML PO Q6H as needed for cough 118 July 22, 2022 1:00am November 03, 2022 1:52am Start: 07-22-2022 End: 11-03-2022 diclofenac sodium 0.01 mg/mg topical gel (20 sources) Nonsteroidal Anti-inflammatory Drug Start: 06-25-2019 End: 01-21-2020 apply 4 g topically four times daily as needed for pain Diclofenac Sodium 1 % gel Discontinued 4 GM TOPICAL Four times daily as needed for pain' June 25, 2019 8:09pm January 21, 2020 9:14am apply to single knee, ankle, foot; for foot includes sole/toes/top of foot Start: 06-25-2019 End: 01-21-2020 apply 4 g topically four times daily Diclofenac Sodium Discontinued 4 GM TOPICAL Four times daily June 25, 2019 8:09pm January 21, 2020 9:14am apply to single knee, ankle, foot; for foot includes sole/toes/top of foot dicyclomine hydrochloride 10 mg oral capsule (20 sources) Anticholinergic Start: 05-09-2024 End: 06-16-2024 take 1 capsule by mouth three times daily as needed Dicyclomine 10 mg capsule Discontinued 10 MG PO Three times daily as needed for abdominal discomfort May 09, 2024 12:00am June 16, 2024 12:06pm Start: 07-02-2022 take 2 capsules by m outh every twelve hours Dicyclomine HCl 10 MG 2 capsules Orally BID ER Jun, Not-Taking Start: 06-29-2022 End: 11-03-2022 take 1 capsule by mouth twice daily as needed for pain Dicyclomine 10 mg capsule Discontinued 10 MG PO Twice daily as needed for Abdominal Pain June 29, 2022 9:33pm November 03, 2022 1:49am Start: 06-29-2022 End: 11-03-2022 diphenhydrAMINE hydrochloride 25 mg oral capsule (20 sources) Histamine-1 Receptor Antagonist Start: 11-03-2022 End: 02-23-2023 take 1 capsule by mouth every eight hours as needed Diphenhydramine Hcl (Benadryl) 25 mg capsule Discontinued 25 MG PO Q8H as needed for itching November 03, 2022 12:00am February 23, 2023 8:12pm doxepin hydrochloride 25 mg oral capsule (20 sources) Tricyclic Antidepressant Start: 09-21-2019 End: 09-23-2019 take 1 capsule by mouth once daily Doxepin 25 mg Capsule Discontinued 25 MG PO Daily September 21, 2019 1:00am September 23, 2019 10:50am doxycycline hyclate 100 mg oral capsule (20 sources) Tetracycline-class Drug Start: 10-10-2024 End: 12-23-2024 take 1 capsule by mouth twice daily Doxycycline Hyclate 100 mg capsule Discontinued 100 MG PO Twice daily 15 02October 10, 2024 1:00am December 23, 2024 2:41pm Start: 10-27-2023 End: 02-18-2024 take 1 tablet by mouth twice daily Doxycycline Hyclate 100 mg tablet Discontinued 100 MG PO Twice daily 24 05October 27, 2023 12:00am February 18, 2024 3:55pm Start: 03-16-2023 End: 08-07-2023 take 1 tablet by mouth twice daily Doxycycline Hyclate 100 mg tablet Discontinued 100 MG PO Twice daily 24 [...] Sep, Not-Taking Start: 05-23-2021 End: 10-15-2023 take 1 capsule by mouth twice daily Doxycycline Hyclate 100 mg capsule Discontinued 100 MG PO Twice daily 14 June 14, 2022 1:00am June 29, 2022 7:40pm Dulaglutide (20 sources) GLP-1 Receptor Agonist Start: 09-07-2024 End: 02-14-2025 Dulaglutide 4.5 mg/0.5 mL pen injector Discontinued 4.5 MG SUBCUT every week 2 September 07, 2024 9:44am February 14, 2025 2:53pm Start: 08-14-2024 End: 09-07-2024 Dulaglutide 4.5 mg/0.5 mL pe n injector Discontinued 4.5 MG SUBCUT every week 2 August 14, 2024 3:19pm September 07, 2024 9:44am Start: 06-16-2024 End: 08-14-2024 Dulaglutide 4.5 mg/0.5 mL pe n injector Discontinued 4.5 MG SUBCUT every week 2 June 16, 2024 12:28pm August 14, 2024 3:19pm Start: 06-01-2024 End: 06-16-2024 Dulaglutide 4.5 mg/0.5 mL pe n injector Discontinued 4.5 MG SUBCUT every week 2 June 01, 2024 9:47am June 16, 2024 12:28pm Start: 06-01-2024 inject 4.5 mg by sub cutaneous injection every week Dulaglutide Active 4.5 MG SUBCUT every week 2 June 01, 2024 9:47am Start: 06-01-2024 End: 06-01-2024 Dulaglutide 4.5 mg/0.5 mL pe n injector Discontinued 4.5 MG SUBCUT every week 2 June 01, 2024 8:52am June 01, 2024 9:48am Start: 06-01-2024 End: 06-01-2024 inject 4.5 mg by subcutaneous injection every week Dulaglutide Discontinued 4.5 MG SUBCUT every week 2 June 01, 2024 8:52am June 01, 2024 9:48am Start: 02-19-2024 End: 06-01-2024 Dulaglutide 4.5 mg/0.5 mL pe n injector Discontinued 4.5 MG SUBCUT every week 2 February 19, 2024 9:15am June 01, 2024 8:52am Start: 02-19-2024 End: 06-01-2024 inject 4.5 mg by subcutaneous injection every week Dulaglutide Discontinued 4.5 MG SUBCUT every week 2 February 19, 2024 9:15am June 01, 2024 8:52am Start: 02-19-2024 inject 4.5 mg by sub cutaneous injection every week Dulaglutide Active 4.5 MG SUBCUT every week 2 February 19, 2024 9:15am Start: 02-18-2024 End: 02-19-2024 Dulaglutide (Trulicity) 3 mg /0.5 mL pen injector Discontinued 4.5 MG SUBCUT every week 2 February 18, 2024 4:23pm February 19, 2024 9:16am Start: 02-18-2024 End: 02-18-2024 Dulaglutide (Trulicity) 3 mg /0.5 mL pen injector Discontinued 4.5 MG SUBCUT every week February 18, 2024 3:55pm February 18, 2024 4:24pm Start: 12-24-2023 End: 02-18-2024 Dulaglutide (Trulicity) 3 mg /0.5 mL pen injector Discontinued 3 MG SUBCUT every week 2 December 24, 2023 7:32am February 18, 2024 3:57pm Start: 11-26-2023 End: 12-24-2023 Dulaglutide (Trulicity) 3 mg /0.5 mL pen injector Discontinued 3 MG SUBCUT every week 2 November 26, 2023 12:00am December 24, 2023 7:33am Start: 10-30-2023 End: 11-26-2023 Dulaglutide (Trulicity) 4.5 mg/0.5 mL pen injector Discontinued 4.5 MG SUBCUT every week 2 October 30, 2023 12:00am November 26, 2023 2:18pm Start: 10-28-2023 End: 10-30-2023 Dulaglutide (Trulicity) 3 mg /0.5 mL pen injector Discontinued 4.5 MG SUBCUT every week October 28, 2023 10:42am October 30, 2023 2:39pm Start: 08-07-2023 End: 10-28-2023 Dulaglutide (Trulicity) 3 mg /0.5 mL pen injector Discontinued 4.5 MG SUBCUT every week August 07, 2023 1:00am October 28, 2023 10:44am Start: 04-10-2023 End: 01-30-2024 inject 1 mg by subcutaneous injection every week Trulicity Pen 0.75 mg/0.5 mL subcutaneous solution mg, SubCutaneous, qWeek, Refills(s) 0 Start Date: 05/22/23 Status: Ordered Repeat number: 1 Trulicity 4.5 MG /0.5ML USE DIRECTED SUBCUTANEOUSLY ONCE A WEEK for 28 Active Trulicity 4.5 MG /0.5ML as directed Subcutaneous weekly for 30 days E11.9 Active Trulicity 3 MG/0 .5ML as directed Subcutaneous weekly for 30 days Active Trulicity 1.5 MG /0.5ML as directed Subcutaneous weekly for 30 days Active Dulaglutide (Trulicity) 3 mg/0.5 mL pen injector (20 sources) Start: 02-18-2024 End: 02-19-2024 Dulaglutide (Trulicity) 3 mg /0.5 mL pen injector Discontinued 4.5 MG SUBCUT every week 2 February 18, 2024 3:23pm February 19, 2024 8:16am Start: 02-18-2024 End: 02-19-2024 Dulaglutide (Trulicity) 3 mg /0.5 mL pen injector Discontinued 4.5 MG SUBCUT every week 2 February 18, 2024 4:23pm February 19, 2024 9:16am Start: 02-18-2024 End: 02-18-2024 Dulaglutide (Trulicity) 3 mg /0.5 mL pen injector Discontinued 4.5 MG SUBCUT every week February 18, 2024 2:55pm February 18, 2024 3:24pm Start: 02-18-2024 End: 02-18-2024 Dulaglutide (Trulicity) 3 [...] SUBCUT every week 2 December 24, 2023 6:32am February 18, 2024 2:57pm Start: 12-24-2023 End: 02-18-2024 Dulaglutide (Trulicity) 3 [...] 3 MG SUBCUT every week 2 November 25, 2023 11:00pm December 24, 2023 6:33am Start: 11-26-2023 End: 12-24-2023 Dulaglutide (Trulicity) 3 mg /0.5 mL pen injector Discontinued 3 MG SUBCUT every week 2 November 26, 2023 12:00am December 24, 2023 7:33am Start: 10-28-2023 End: 10-30-2023 Dulaglutide (Trulicity) 3 mg /0.5 mL pen injector Discontinued 4.5 MG SUBCUT every week October 28, 2023 9:42am October 30, 2023 1:39pm Start: 10-28-2023 End: 10-30-2023 Dulaglutide (Trulicity) 3 mg /0.5 mL pen injector Discontinued 4.5 MG SUBCUT every week 2 October 28, 2023 10:42am October 30, 2023 2:39pm Start: 08-07-2023 End: 10-28-2023 Dulaglutide (Trulicity) 3 mg /0.5 mL pen injector Discontinued 4.5 MG SUBCUT every week August 07, 2023 12:00am October 28, 2023 9:44am Start: 08-07-2023 End: 10-28-2023 Dulaglutide (Trulicity) 3 [...] Dulaglutide (Trulicity) 4.5 mg/0.5 mL pen injector (20 sources) Start: 10-30-2023 End: 11-26-2023 Dulaglutide (Trulicity) 4.5 mg/0.5 mL pen injector Discontinued 4.5 MG SUBCUT every week 2 October 29, 2023 11:00pm November 26, 2023 1:18pm Start: 10-30-2023 End: 11-26-2023 Dulaglutide (Trulicity) 4.5 mg/0.5 mL pen injector Discontinued 4.5 MG SUBCUT every week 2 October 30, 2023 12:00am November 26, 2023 2:18pm Start: 10-30-2023 Dulaglutide (T rulicity) 4.5 mg/0.5 mL pen injector Active 4.5 MG SUBCUT every week 2 October 30, 2023 12:00am DULoxetine 60 mg delayed release oral capsule (20 sources) Serotonin and Norepinephrine Reuptake Inhibitor Start: 12-02-2023 End: 08-27-2024 take 1 capsule by mouth once daily DULoxetine (Cymbalta) [address] capsule Indications: Neuropathy Take 1 capsule (30 mg) by mouth Daily for 14 days Do not crush or chew. 14 capsule 05/10/2024 08/27/2024 Discontinued (Ineffective) Start: 08-07-2023 Duloxetine Act sushma MG PO August 07, 2023 12:00am Start: 09-04-2021 End: 09-01-2024 take 1 capsule by mouth once daily Duloxetine (Cymbalta) 60 mg capsule,delayed release(DR/EC) Discontinued 60 MG PO Daily June 16, 2024 1:00am September 01, 2024 3:29pm Start: 09-04-2021 End: 08-07-2023 take 3 capsules by mouth once daily Duloxetine 30 mg capsule,delayed release(DR/EC) Discontinued 90 MG PO Daily September 04, 2021 1:00am August 07, 2023 11:29pm Start: 09-04-2021 End: 08-07-2023 Start: 09-04-2021 End: 08-07-2023 take 90 mg by mouth once daily Duloxetine Discontinued 90 MG PO Daily September 04, 2021 1:00am August 07, 2023 11:29pm Comment on above: Take 60 mg by mouth. estradiol 0.1 mg/ml vaginal cream (20 sources) Estrogen Start: 11-03-2022 End: 02-23-2023 Estradiol 0.01 % (0.1 mg/gram) cream Discontinued 1 APPLIC VAGINAL every Saturday, Saturday, and Thursday November 03, 2022 12:00am February 23, 2023 8:12pm Start: 11-03-2022 End: 02-23-2023 ferrous sulfate 325 mg oral tablet (20 sources) Start: 05-15-2017 End: 06-29-2022 take 1 tablet by mouth once daily at bedtime Ferrous Sulfate 325 mg (65 mg iron) tablet Discontinued 325 MG PO Daily at bedtime January 01, 2020 12:00am June 29, 2022 7:41pm fexofenadine hydrochloride 180 mg oral tablet (2 sources) Histamine-1 Receptor Antagonist Start: 08-12-2023 End: 01-30-2024 take 1 tablet by mouth once daily fexofenadine (Vivian) 180 MG tablet Indications: Dermatographism Take 1 tablet daily, by mouth, 30 days 30 tablet 11 08/12/2023 01/30/2024 Discontinued fluocinonide 0.5 mg/ml topical solution (2 sources) Corticosteroid End: 01-30-2024 fluocinonide (Lidex) 0.05 % external solution APPLY TO SCALP (AVOID FACE AND NECK) DAILY NEEDED FOR FLARES 01/30/2024 Discontinued fluticasone propionate 0.05 mg/actuat metered dose nasal spray (20 sources) Corticosteroid Start: 04-01-2025 End: 04-01-2025 Fluticasone Propionate 50 mcg/actuation spray,suspension Discontinued 1 SPRAY INTRANASAL Daily April 01, 2025 12:00am April 01, 2025 4:51pm Start: 08-29-2024 End: 09-21-2024 take 1 spray(s) nasal route once daily as needed for congestion Fluticasone Propionate (Flonase Allergy Relief) 50 mcg/actuation spray,suspension Discontinued 1 SPRAY INTRANASAL Daily as needed for nasal congestion August 29, 2024 1:00am September 21, 2024 2:15pm administer into each nostril Start: 08-29-2024 End: 09-21-2024 Start: 08-28-2022 End: 10-15-2023 take 1 spray(s) nasal route twice daily fluticasone (FLONASE ALLERGY RELIEF) 50 mcg/actuation nasal spray Use 1 [place] in each nostril twice daily. 15.8 mL 2 08/28/2022 10/15/2023 Discontinued Start: 07-05-2022 take 2 spray(s) nasa l route once daily Flonase Allergy Relief 50 MCG/ACT 2 spray in each nostril Nasally Once a day for 30 day(s) Jul, Active Start: 09-21-2019 End: 09-23-2019 Fluticasone Propionate 50 mcg/actuation Blister With Device Discontinued 1 INH INHALATION Q12H September 21, 2019 1:00am September 23, 2019 10:51am Start: 09-21-2019 End: 09-23-2019 Comment on above: Use 1 Mangum in each nostril twice daily. furosemide 40 mg oral tablet (20 sources) Loop Diuretic Start: 01-21-2020 End: 08-07-2023 take 1 tablet by mouth twice daily Furosemide 40 mg Tablet Discontinued 40 MG PO Twice daily January 21, 2020 12:00am August 07, 2023 11:29pm Start: 01-21-2020 End: 01-30-2024 take 1 tablet by mouth once daily furosemide 40 mg Tab 40 mg = 1 tab(s), Oral, Daily Start Date: 05/02/22 Status: Ordered Repeat number: 1 Start: 05-15-2017 End: 01-21-2020 take 1 tablet by mouth twice daily Furosemide (Lasix) 20 mg Tablet Discontinued 20 MG PO Twice daily May 15, 2017 12:00am January 21, 2020 9:14am Comment on above: furosemide 40 mg tab let TAKE 1 TABLET BY MOUTH ONCE DAILY FOR 30 DAYS homatropine methylbromide 0.3 mg/ml / HYDROcodone bitartrate 1 mg/ml oral solution (16 sources) Opioid Agonist, Cholinergic Muscarinic Agonist Start: 10-10-2024 End: 02-14-2025 Hydrocodone-Homatropine 5-1.5 mg/5 mL syrup Discontinued 5 ML PO Q6H as needed for cough 100 5 October 10, 2024 February 14, 2025 2:53pm Start: 10-10-2024 hydrocortisone 10 mg/ml topical cream (12 sources) Corticosteroid Start: 10-23-2024 End: 12-23-2024 Hydrocortisone 1 % cream Discontinued 1 APPLIC TOPICAL Daily as needed for rash 28.35 October 23, 2024 12:00am December 23, 2024 2:41pm hydrocortisone 10 mg/ml / neomycin 3.5 mg/ml / polymyxin b [id number] unt/ml otic suspension (2 sources) Aminoglycoside Antibacterial, Polymyxin-class Antibacterial, Corticosteroid Start: 10-04-2023 End: 01-30-2024 neomycin-polymyxin- hydrocortisone (Cortisporin) [id number] otic suspension INSTILL 5 DROPS INTO AFFECTED EAR(S) THREE TIMES DAILY FOR 10 DAYS 10/04/2023 01/30/2024 Discontinued hydrOXYzine pamoate 25 mg oral capsule (2 sources) Antihistamine Start: 02-27-2023 End: 01-30-2024 take 1 capsule by mouth every six hours hydrOXYzine pamoate (Vistaril) 25 MG capsule Indications: Dermatitis Take 1 capsule (25 mg) by mouth every 6 (six) hours if needed for itching for up to 10 days. 30 capsule 02/27/2023 01/30/2024 Discontinued ibuprofen 600 mg oral tablet (20 sources) Nonsteroidal Anti-inflammatory Drug Start: 10-20-2022 End: 02-23-2023 take 1 tablet by mouth every eight hours as needed for pain Ibuprofen 600 mg tablet Discontinued 600 MG PO Q8H as needed for pain October 20, 2022 12:00am February 23, 2023 8:13pm Start: 03-20-2021 End: 11-18-2024 take 1 tablet by mouth three times daily as needed for pain Ibuprofen 800 mg tablet Discontinued 800 MG PO Three times daily as needed for Pain March 20, 2021 12:00am February 23, 2023 8:13pm Start: 03-20-2021 End: 11-21-2024 ibuprofen 800 MG tablet TAKE 1 TABLET BY MOUTH EVERY 8 HOURS IF NEEDED FOR MODERATE PAIN (4-7 PAIN) 09/12/2023 11/21/2024 Discontinued Ketorolac (20 sources) Nonsteroidal Anti-inflammatory Drug, Cyclooxygenase Inhibitor Start: 09-21-2013 Toradol per 15 mg Sep, 60 mg 10 ml lidocaine hydrochloride 10 mg/ml injection (20 sources) Antiarrhythmic, Amide Local Anesthetic Start: 08-31-2024 End: 08-31-2024 lidocaine (PF) 10 mg/mL (1 %) 1 mL injection (XYLOCAINE) Start: 08-31-2024 End: 08-31-2024 1 mL, Injection - FOR ORTHO USE ONLY, ONCE, 1 dose, Starting on Sat08/31/24 at 1522, Until Sat08/31/24 at 1522 Start: 08-31-2023 End: 03-23-2024 apply 1 dose topically once daily Lidocaine 5 % adhesi ve patch,medicated Discontinued 1 PATCH TOPICAL Daily October 27, 2023 12:00am March 23, 2024 6:36pm leave on most painful area for up to 12 hrs Start: 01-28-2023 End: 02-23-2023 apply 1 dose topically every twenty-four hours Lidocaine 5 % adhesive patch,medicated Discontinued 1 PATCH TOPICAL Q24H January 28, 2023 12:00am February 23, 2023 8:13pm leave on most painful area for up to 12 hrs Start: 01-28-2023 End: 02-23-2023 apply 1 dose transdermal route once daily as needed loratadine 10 mg oral tablet (20 sources) Start: 08-28-2022 End: 10-15-2023 take 1 tablet by mouth once daily as needed Loratadine 10 mg tablet Discontinued 10 MG PO Daily as needed for Allergic Reaction November 03, 2022 12:00am February 23, 2023 8:13pm Comment on above: Take 1 tablet by [facility] once daily. Lumateperone (20 sources) Start: 06-16-2024 End: 09-01-2024 Start: 06-16-2024 End: 09-01-2024 take 1 capsule by mouth once daily Lumateperone (Caplyta) 10.5 mg capsule Discontinued 21 MG PO Daily June 16, 2024 12:07pm September 01, 2024 3:31pm Start: 06-16-2024 End: 09-01-2024 take 1 capsule by mouth once daily Lumateperone (Caplyta) 10.5 mg capsule Discontinued 21 MG PO Daily June 16, 2024 11:07am September 01, 2024 2:31pm Start: 06-16-2024 take 1 capsule by mo [facility] once daily Lumateperone (Caplyta) 10.5 mg capsule Active 21 MG PO Daily June 16, 2024 11:07am Start: 10-06-2023 End: 06-16-2024 Start: 10-06-2023 End: 06-16-2024 take 1 capsule by mouth once daily Lumateperone (Caplyta) 10.5 mg capsule Discontinued 10.5 MG PO Daily October 06, 2023 1:00am June 16, 2024 12:07pm Start: 10-06-2023 End: 06-16-2024 take 1 capsule by mouth once daily Lumateperone (Caplyta) 10.5 mg capsule Discontinued 10.5 MG PO Daily October 06, 2023 12:00am June 16, 2024 11:07am Start: 10-06-2023 [facility] 1 [facility] Lumateperone (Caplyta) 10.5 mg capsule Active 10.5 MG PO Daily October 06, 2023 1:00am lurasidone hydrochloride 60 mg oral tablet (20 [...] 58.2 mg/ml oral solution (20 sources) Start: 07-20-2019 End: 01-21-2020 take 1 mL by mouth once Magnesium Citrate solution Discontinued 37.5 ML PO Once 296 July 20, 2019 1:00am January 21, 2020 9:15am Start: 07-20-2019 End: 01-21-2020 meloxicam 15 mg oral tablet (20 sources) Nonsteroidal Anti-inflammatory Drug Start: 03-02-2025 End: 04-01-2025 take 1 tablet by mouth once daily Meloxicam 15 mg tablet Discontinued 15 MG PO Daily April 01, 2025 12:00am April 01, 2025 4:51pm Start: 06-23-2015 End: 10-15-2023 take 1 tablet by mouth once daily Meloxicam (Mobic) 15 mg Tablet Discontinued 15 MG PO Daily January 04, 2019 12:00am March 20, 2021 8:24am Comment on above: Take 1 tablet by roly th once daily. metFORMIN hydrochloride 500 mg oral tablet (20 sources) Biguanide Start: End: take 2 tablets by mouth once daily at bedtime Metformin 500 mg Tablet Discontinued 1000 MG PO Daily at bedtime May 15, 2017 12:00am June 29, 2022 7:41pm Start: 05-15-2017 End: 10-15-2023 take 1 tablet by mouth twice daily metformin 500 mg Tab 500 mg = 1 tab(s), Oral, BID, # 60 tab(s), Refills(s) 5, Pharmacy: [id number], 161, cm, 04/06/20 15:54:00 EDT, Height/Length Dosing, 112, kg, 04/06/20 15:54:00 EDT, Weight Dosing Start Date: 05/26/20 Status: Ordered Quantity: 60.0 Unit: tab(s) Repeat number: 6 Start: 05-15-2017 End: 06-29-2022 take 1000 mg by mouth once daily at bedtime Metformin Discontinued 1000 MG PO Daily at bedtime May 15, 2017 12:00am June 29, 2022 7:41pm Comment on above: metformin 500 mg tab let TAKE 1 TABLET BY MOUTH TWICE DAILY methocarbamol 750 mg oral tablet (20 sources) Muscle Relaxant Start: End: take 1 tablet by mouth once daily Methocarbamol 750 mg tablet Discontinued 750 MG PO Daily August 07, 2023 1:00am March 23, 2024 6:36pm Start: 08-07-2023 Methocarbamol Active MG TABLET August 07, 2023 12:00am Start: 05-22-2023 take 1 mg by mouth t hree times daily methocarbamol 750 mg Tab mg tab(s), Oral, TID, Refills(s) 0 Start Date: 05/22/23 Status: Ordered Repeat number: 1 Start: 01-28-2023 End: 02-23-2023 take 1 tablet by mouth three times daily Methocarbamol 750 mg tablet Discontinued 750 MG PO Three times daily January 28, 2023 12:00am February 23, 2023 8:13pm Start: 01-28-2023 End: 02-23-2023 Start: 12-06-2022 take 1 tablet by roly th every twenty-four hours Methocarbamol 500 MG 1 tablets Orally Once daily for 30 days December, Active take 1 tablet by roly th every four hours Methocarbamol 750 MG 1 tablet Orally every 4 hrs prn Active Comment on above: Take 750 mg by mouth as needed. 24 hr mirabegron 50 mg extended release oral tablet (7 sources) beta3-Adrenergic Agonist Start: 11-28-2023 End: 01-30-2024 take 1 tablet by mouth in the morning, then take 1 tablet by mouth every twenty-four hours mirabegron ER (Myrbetriq) 50 MG 24 hr tablet Take 50 mg by mouth in the morning. 11/28/2023 01/30/2024 Discontinued Start: 11-28-2023 End: 11-27-2024 take 1 tablet by mouth once daily mirabegron (MYRBETRIQ) 50 mg Tb24 Indications: Overactive bladder Take 1 tablet by mouth once daily. 30 tablet 11 11/28/2023 03/31/2024 Discontinued (Other) mupirocin 0.02 mg/mg topical ointment (1 source) RNA Synthetase Inhibitor Antibacterial Start: 10-31-2021 End: 11-14-2021 apply 15 g nasal route once daily mupirocin (BACTROBAN) 2 % ointment Apply to each nostril once daily for 10-14 days. 15 g 0 10/31/2021 11/14/2021 Comment on above: Apply to each nostri l once daily for 10-14 days. nitrofurantoin, macrocrystals 25 mg / nitrofurantoin, monohydrate 75 mg oral capsule (20 sources) Nitrofuran Antibacterial Start: 02-22-2025 End: 03-01-2025 take 1 capsule by mouth in the morning nitrofurantoin, macrocrystal-mono hydrate, (Macrobid) 100 MG capsule Indications: Acute cystitis without hematuria Take 1 capsule (100 mg) by mouth in the morning and 1 capsule (100 mg) before bedtime. Do all this for 7 days. 14 capsule 02/22/2025 03/01/2025 Start: 10-14-2023 End: 01-30-2024 take 1 capsule by mouth in the morning nitrofurantoin, macrocrystal-monohydrate , (Macrobid) 100 MG capsule Take 100 mg by mouth in the morning and 100 mg before bedtime. 10/14/2023 01/30/2024 Discontinued Start: 08-08-2023 End: 10-06-2023 take 1 capsule by mouth twice daily at mealtime Nitrofurantoin Monohyd/M-Cryst (Macrobid ) 100 mg capsule Discontinued 100 MG PO Twice daily 10 August 08, 2023 1:00am October 06, 2023 6:40pm must administer with a meal/food Start: 10-20-2022 End: 11-03-2022 take 1 capsule by mouth every twelve hours at mealtime Nitrofurantoin Monohyd/M-Cryst (Macrobid ) 100 mg capsule Discontinued 100 MG PO Q12H 10 October 20, 2022 12:00am November 03, 2022 1:49am administer with a meal/food; swallow whole; do not open, crush, dissolve , or chew Start: 10-20-2022 End: 11-03-2022 Start: 03-01-2022 take 1 tablet by roly twice daily Macrobid 100 MG 1 tab Orally BID for 5 days Feb, Active Start: 05-15-2017 End: 05-22-2017 take 1 capsule by mouth every twelve hours at mealtime Nitrofurantoin Monohyd/M-Cryst (Macrobid ) 100 mg capsule Discontinued 100 MG PO Q12H 14 7 May 15, 2017 12:00am May 21, 2017 12:00am May 22, 2017 12:03am administer with a meal/food; swallow whole; do not open, crush, dissolve , or chew Start: 05-15-2017 End: 05-22-2017 Comment on above: Take [facility] capsule [facility] two times a day for 5 days. norethindrone 0.35 mg oral tablet (20 sources) Start: 0 End: 0 take 1 tablet by mouth once daily at bedtime Norethindrone (Contraceptive) (Ortho Micronor) 0.35 mg Tablet Discontinued 0.35 MG PO Daily at bedtime January 21, 2020 12:00am January 28, 2020 9:13am Start: 01-21-2020 End: 01-28-2020 Normal saline (2 sources) Start: 10-08-2023 End: 01-30-2024 [place] Saline Nasal gel APPLY 1 APPLICATION IN THE NOSE NEEDED 10/08/2023 01/30/2024 Discontinued Omeprazole 10 mg Capsule,Delayed Release(Dr/Ec) (17 sources) Start: 09-21-2019 End: 09-23-2019 take 1 capsule by mouth once daily Omeprazole 10 mg Capsule,Delayed Release(Dr/Ec) Discontinued 10 MG PO Daily September 21, 2019 1:00am September 23, 2019 10:51am Start: 09-21-2019 End: 09-23-2019 take 1 capsule by mouth once daily Omeprazole 10 mg Capsule,Delayed Release(Dr/Ec) Discontinued 10 MG PO Daily September 21, 2019 12:00am September 23, 2019 9:51am ondansetron 4 mg disintegrat ing oral tablet (20 sources) Serotonin-3 Receptor Antagonist Start: 07-02-2022 Start: 06-29-2022 End: 11-03-2022 take 1 tablet by mouth every eight hours as needed for nausea and vomiting Ondansetron 4 mg tablet,disintegrating Discontinued 4 MG PO Q8H as needed for nausea and vomiting October 20, 2022 12:00am November 03, 2022 1:50am 12 hr orphenadrine citrate 100 mg extended release oral tablet (20 sources) Muscle Relaxant Start: 03-20-2021 End: 05-30-2021 take 1 tablet by mouth twice daily Orphenadrine Citrate 100 mg tablet extended release Discontinued 100 MG PO Twice daily March [...] oral tablet (20 sources) Opioid Agonist Start: 11-05-19 End: 02-24-20 take 1 tablet by mouth once daily as needed for pain Oxycodone 5 mg tablet Discontinued 5 MG PO Daily as needed for pain 5 5 November 04, 2022 February 23, 2023 8:13pm oxymetazoline hydrochloride 0.5 mg/ml nasal spray (20 sources) Start: 09-04-19 End: 06-29-20 Oxymetazoline (Afrin (Oxymetazoline)) 0.05 % spray,non-aerosol Discontinued 2 SPRAY INTRANASAL Twice daily as needed for nasal congestion 15 3 September 04, 2021 1:00am June 29, 2022 7:41pm pantoprazole 40 mg delayed release oral tablet (20 sources) Proton Pump Inhibitor Start: 10-06-19 End: 02-15-20 take 1 tablet by mouth at mealtime Pantoprazole 40 mg tablet,delayed release (DR/EC) Discontinued 40 MG PO Twice daily 180 90 October 05, 2024 1:00am February 14, 2025 2:53pm Take 30 minutes prior to meals. Start: 08-07-2024 End: 04-19-2025 take 1 tablet by mouth once daily pantoprazole (ProtoNix) 40 MG EC tablet Take 40 mg by mouth Daily 08/07/2024 04/19/2025 Discontinued (Therapy completed) Start: 08-07-2024 End: 09-21-2024 End: 11-18-2024 take 1 tablet by mouth twice daily at mealtime pantoprazole DR (PROTONIX) 40 mg tablet TAKE 1 TABLET BY MOUTH 2 TIMES A DAY 30 MINUTES prior to meals 11/18/2024 Discontinued (Course of therapy completed) permethrin 50 mg/ml topical cream (2 sources) Pyrethroid Start: 10-01-2023 End: 01-30-2024 permethrin (Elimite) 5 % cream Indications: Scabies Apply from the neck down to the soles of the feet. Leave the medicine on your skin for 8 to 14 hours, then wash it off completely. Repeat in 1 week. Wash bedding the following morning. 7 day supply. 60 g 1 10/01/2023 01/30/2024 Discontinued phenylephrine hydrochloride 25 mg/ml ophthalmic solution (1 source) alpha-1 Adrenergic Agonist Start: 12-23-2023 End: 12-23-2023 PHENYLephrine 2.5 % 1 Drop (AK-DILATE, QASIM-SYNEPHRINE) potassium chloride 20 meq extended release oral tablet (20 sources) Start: 05-02-2022 potassium chlo ride 20 mEq, Oral, Daily Start Date: 05/02/22 Status: Ordered Repeat number: 1 Start: 05-02-2022 potassium chlo ride 20 mEq, Oral, Daily Start Date: 05/02/22 Status: Ordered Start: 08-15-2021 End: 12-23-2024 take 1 tablet by mouth once daily Potassium Chloride 20 mEq tablet extended release Discontinued 20 MEQ PO Daily October 28, 2023 12:00am December 23, 2024 2:41pm Start: 06-26-2019 End: 08-07-2023 take 2 capsules by mouth once daily Potassium Chloride 10 mEq capsule, extended release Discontinued 20 MEQ PO Daily June 26, 2019 1:00am August 07, 2023 11:29pm Start: 06-26-2019 End: 08-07-2023 take 20 mEq by mouth once daily Potassium Chloride Dis continued 20 MEQ PO Daily June 26, 2019 1:00am August 07, 2023 11:29pm Start: 05-15-2017 End: 02-23-2018 take 1 capsule by mouth twice daily Potassium Chloride 8 mEq Capsule, Extended Release Discontinued 8 MEQ PO Twice daily May 15, 2017 12:00am February 23, 2018 9:24pm Start: 05-08-2017 End: 10-15-2023 take 1 capsule by mouth once daily potassium chloride SR (MICRO-K) 10 mEq CR capsule 1 capsule DAILY (route: oral) 0 11/22/2020 10/15/2023 Discontinued take 1 tablet by roly th in the morning potassium chloride CR (Klor-Con M20) 20 MEQ ER tablet Take 1 tablet by mouth in the morning. Active Comment on above: potassium chloride E R 10 mEq capsule,extended release 1 capsule DAILY (rou te: oral) ProAir HFA 108 (90 Base) MCG/ACT (5 sources) take 1 puff(s) by inhalation every four hours as needed ProAir HFA 108 (90 Base) MCG/ACT 1 puff as needed Inhalation every 4 hrs prn Not-Taking promethazine hydrochloride 25 mg oral tablet (20 sources) Phenothiazine Start: 023 End: 023 take 1 tablet by mouth three times daily as needed for nausea and vomiting Promethazine 25 mg tablet Discontinued 25 MG PO Three times daily as needed for nausea and vomiting 15 5 November 04, 2022 12:00am February 23, 2023 8:13pm proparacaine hydrochloride 5 mg/ml ophthalmic solution (1 source) Local Anesthetic Start: End: proparacaine 0.5 % 1 Drop (ALCAINE) risperiDONE 1 mg oral tablet (20 sources) Atypical Antipsychotic Start: 024 End: Risperidone 1 mg tablet Discontinued MG August 07, 2023 1:00am October 06, 2023 6:41pm Semaglutide (7 sources) Start: 025 End: Semaglutide (Ozempic) 0.25 mg or 0.5 mg (2 mg/3 mL) pen injector Discontinued 0.25 MG SUBCUT every week 2.944 56 February 16, 2025 12:00am March 01, 2025 3:38pm Start: 02-16-2025 Start: 02-16-2025 Semaglutide (O zempic) 0.25 mg or 0.5 mg (2 mg/3 mL) pen injector Active 0.25 MG SUBCUT every week 2.944 56 February 16, 2025 12:00am Complies with drug therapy sennosides, chcf 8.6 mg oral tablet (2 sources) Start: 06-16-2023 End: 01-30-2024 take 2 tablets by mouth once daily at bedtime as needed EQ Vegetable Laxative 8.6 MG tablet TAKE 2 TABLETS BY MOUTH ONCE DAILY AT BEDTIME NEEDED 06/16/2023 01/30/2024 Discontinued sodium chloride 0.111 meq/ml nasal spray (10 [...] mg tablet Discontinued 1 TAB PO Q12H 20 February 15, 2024 12:00am March 23, 2024 6:36pm Start: 02-15-2024 End: 03-23-2024 Start: 04-08-2023 End: 08-07-2023 take 1 tablet by mouth every twelve hours Sulfamethoxazole-Trimethoprim (Bactrim Ds) 800-160 mg tablet Discontinued 1 TAB PO Q12H 14 7 April 08, 2023 12:00am August 07, 2023 11:29pm Start: 04-08-2023 End: 08-07-2023 Start: 11-03-2022 End: 02-23-2023 take 1 tablet by mouth twice daily Sulfamethoxazole-Trimethoprim 800-160 mg Tablet Discontinued 1 TAB PO Twice daily 13 November 03, 2022 12:00am February 23, 2023 8:13pm Start: 11-03-2022 End: 02-23-2023 Start: 03-24-2019 End: 04-30-2019 take 1 tablet by mouth twice daily Sulfamethoxazole-Trimethoprim (Bactrim Ds) 800-160 mg tablet Discontinued 1 TAB PO Twice daily 10 March 24, 2019 12:00am April 30, 2019 6:46pm Start: 03-24-2019 End: 04-30-2019 Bactrim Active tamsulosin hydrochloride 0.4 mg oral capsule (20 sources) alpha-Adrenergic Torri Start: 06-26-2023 End: 01-30-2024 take 1 capsule by mouth once daily tamsulosin (Flomax) 0.4 MG 24 hr capsule Take 0.4 mg by mouth Daily 06/26/2023 01/30/2024 Discontinued Start: 10-20-2022 End: 02-23-2023 take 1 capsule by mouth once daily Tamsulosin (Flomax) 0.4 mg capsule Discontinued 0.4 MG PO Daily 30 November 04, 2022 12:00am February 23, 2023 8:13pm terbinafine 250 mg oral tablet (20 sources) Allylamine Antifungal Start: 08-07-2023 End: 10-06-2023 Terbinafine Hcl 250 mg tablet Discontinued MG August 07, 2023 1:00am October 06, 2023 6:41pm Start: 08-07-2023 End: 10-06-2023 Start: 08-07-2023 End: 10-06-2023 Terbinafine Hcl Discontinued [...] Start: 08-15-2021 take 1 tablet by roly every eight hours tiZANidine HCl 4 MG 1 tablet as needed Orally Three times a day for 7 days can make you tired Aug, Active triamcinolone acetonide 0.001 mg/mg topical ointment (20 sources) Corticosteroid Start: 10-01-2023 End: 01-30-2024 triamcinolone (Kenalog) 0.1 % ointment Indications: Scabies Apply topically every 12 (twelve) hours 454 g 3 10/01/2023 01/30/2024 Discontinued Start: 05-08-2023 Kenalog-40 May, 40 mg Start: 01-01-2020 End: 03-20-2021 Triamcinolone Acetonide 0.1 % Cream Discontinued 1 APPLIC TOPICAL Twice daily as needed for Rash January 01, 2020 12:00am March 20, 2021 8:24am Start: 08-14-2015 KENALOG - 10 m g Aug, 40 mg tropicamide 10 mg/ml ophthalmic solution (2 sources) Anticholinergic Start: 12-23-2023 End: 12-23-2023 tropicamide 1 % 1 Drop (MYDRIACYL) Start: 12-13-2022 End: 12-14-2022 tropicamide 1 % 1 Drop (MYDR IACYL) vitamin b12 1 mg oral tablet (20 sources) Vitamin B12 Start: 07-31-2024 End: 02-16-2025 take 1 tablet by mouth once daily Cyanocobalamin (Vitamin B-12) 1,000 mcg tablet Discontinued 0 .ROUTE .COMPLEX September 14, 2024 8:26am February 16, 2025 8:35am TAKE 1 TABLET BY MOUTH EVERY DAY Start: 10-31-2023 End: 10-31-2023 take 1 tablet by mouth once daily Cyanocobalamin (Vitamin B-12) 1,000 mcg tablet Discontinued 1000 MCG PO Daily October 31, 2023 12:00am October 31, 2023 1:56pm Start: 10-31-2023 End: 10-31-2023 take 1 tablet by mouth once daily Cyanocobalamin (Vitamin B-12) 1,000 mcg tablet Discontinued 1000 MCG PO Daily October 30, 2023 11:00pm October 31, 2023 12:56pm Start: 10-31-2023 End: 10-31-2023 take 1000 ug by mouth once daily Cyanocobalamin (Vitamin B-12) Discontinued 1000 MCG PO Daily October 31, 2023 12:00am October 31, 2023 1:56pm Start: 10-16-2022 End: 07-31-2024 take 1 tablet by mouth in the morning cyanocobalamin (Vitamin B-12) 1000 MCG tablet Take 1,000 mcg by mouth in the morning. 02/16/2023 Active Start: 10-16-2022 take 1 tablet by roly th every twenty-four hours Vitamin B-12 1000 MCG 1 tablet Orally Once a day for 30 day(s) Oct, Active Start: 03-14-2020 Cyanocobalamin 1000 MCG/ML 1 ml Injection once a month for 30 day(s) Mar, Active Comment on above: Take 1,000 mcg by mo uth once daily. ziprasidone 20 mg oral capsule (20 sources) Atypical Antipsychotic Start: 01-21-20 End: 11-04-19 take 1 capsule by mouth once daily in the evening Ziprasidone Hcl 20 mg capsule Discontinued 20 MG PO Every evening January 21, 2020 12:00am November 03, 2022 1:51am Problems Active Problems Problem Classification Problem Date Documented Date Episodic/Chronic Acquired foot deformities (20 sources) Hammer toe; Translations: [Other hammer toe(s) (acquired), right foot] Onset: 3 01-25-2023 Chronic Acute bronchitis (20 sources) Respiratory syncytial virus bronchitis; Translations: [Acute bronchitis due to respiratory syncytial virus] 06-14-2022 Episodic Administrative/social admission (20 sources) Patient encounter status; Translations: [Exercise counseling] 02-16-2025 Episodic Anxiety disorders (20 sources) Anxiety; Translations: [Anxiety disorder, unspecified] Onset: 5 04-06-2021 Chronic Asthma (20 sources) Reactive airway [...] Translations: [Bronchitis] Onset: 1 Resolved: 2 Episodic Complications of surgical procedures or medical care (20 sources) Post-operative wound cellulitis; Translations: [Infection following a procedure, other surgical site, initial encounter] Onset: 3 11-02-2022 Episodic Conditions associated with dizziness or vertigo (17 sources) Dizziness; Translations: [Dizziness and giddiness] Onset: 5 Episodic Diabetes mellitus with complications (20 sources) Gastroparesis due to diabetes mellitus; Translations: [Type 2 diabetes mellitus with diabetic autonomic (poly)neuropathy] Chronic Diabetes mellitus without complication (20 sources) Type 2 diabetes mellitus; Translations: [Type 2 diabetes mellitus without complications] Onset: 1 Resolved: 2 Chronic Disorders of lipid metabolism (20 sources) Mixed hyperlipidemia; Translations: [Mixed hyperlipidemia] Onset: 2 Resolved: 2 Chronic Disorders of teeth and jaw (20 sources) Pain of right temporomandibular joint; Translations: [Arthralgia of right temporomandibular joint] Episodic Esophageal disorders (20 sources) Gastroesophageal reflux disease without esophagitis; Translations: [Gastro-esophageal reflux disease without esophagitis] Onset: 2 Resolved: 2 Chronic Fluid and electrolyte disorders (20 sources) Hypokalemia; Translations: [Hypokalemia] Onset: 2 Resolved: 2 Episodic Fracture of lower limb (11 sources) Closed fracture middle phalanx, toe ; Translations: [Nondisplaced fracture of middle phalanx of right lesser toe(s), initial encounter for closed fracture] 07-13-2024 Episodic Genitourinary symptoms and ill-defined conditions (20 sources) Urinary incontinence; Translations: [Unspecified urinary incontinence] Onset: 3 Chronic Genitourinary symptoms and ill-defined conditions (20 sources) Foul smelling urine; Translations: [Unspecified abnormal findings in urine] Onset: 2 Resolved: 2 Episodic Headache; including migraine (20 sources) Migraine without aura, not refractory ; Translations: [Migraine without aura, not intractable, without status migrainosus] Onset: 4 Chronic Headache; including migraine (20 sources) Headache [...] mood [affective] disorder] Onset: 3 01-26-2019 Chronic Mycoses (2 sources) Candidiasis of skin; Translations: [Candidiasis of skin and nail] 02-22-2025 Episodic Nonspecific chest pain (20 sources) Other chest pain; Translations: [Non-cardiac chest pain] Onset: 2 Resolved: 2 Episodic Nutritional deficiencies (20 sources) Cobalamin deficiency; Translations: [Deficiency of other specified B group vitamins] Onset: 1 Resolved: 2 Episodic Osteoarthritis (20 sources) Degenerative joint disease of ankle AND/OR foot; Translations: [Primary osteoarthritis, unspecified ankle and foot] Onset: 5 Resolved: 2 06-23-2015 Chronic Other acquired deformities (7 sources) Contracture of joint of left ankle; Translations: [Contracture, left ankle] 08-14-2024 Chronic Other acquired deformities (3 sources) Contracture of joint of right ankle; Translations: [Contracture, right ankle] 09-01-2024 Chronic Other aftercare (1 source) Other longterm (current) drug therapy; Translations: [OTH DIRECTOR TOXICOLOGY CURRENT DRUG THERAPY] Onset: 3 Episodic Other aftercare (1 source) [facility] (current) use of oral hypoglycemic drugs; Translations: [DIRECTOR TOXICOLOGY USE ORAL HYPOGLYCEMIC DX] Onset: 3 Episodic Other aftercare (2 sources) Encounter for other specified surgical aftercare; Translations: [Encounter for other specified surgical aftercare] Onset: 4 Episodic Other bone disease and musculoskeletal deformities (6 sources) Osteochondritis dissecans of right ankle; Translations: [Osteochondritis dissecans, right ankle and joints of right foot] 12-21-2024 Chronic Other bone disease and musculoskeletal deformities (1 source) Osteochondritis dissecans, right ankle and joints of right foot; Translations: [Osteochondritis dissecans, right ankle and joints of right foot] Onset: 5 Chronic Other connective tissue disease (1 source) Presence of left artificial knee joint Onset: 1 Resolved: 1 Chronic Other connective tissue disease (2 sources) History of bilateral total knee replacement; Translations: [Presence of artificial knee joint, bilateral] 10-15-2023 Chronic Other connective tissue disease (2 sources) Presence of unspecified artificial knee joint; Translations: [Pain due to total knee replacement, initial encounter] Onset: 5 Chronic Other connective tissue disease (20 sources) Muscle pain; Translations: [Myalgia, unspecified site] 06-14-2022 Episodic Other connective tissue disease (20 sources) Hand pain; Translations: [Pain in left hand] 11-03-2022 Episodic Other connective tissue disease (1 source) Pain in left foot; Translations: [PAIN IN LEFT FOOT] Onset: 3 Episodic Other connective tissue disease (1 source) Pelvic floor dysfunction; Translations: [Other specified disorders of muscle] 10-15-2023 Episodic Other connective tissue disease (4 sources) Spasm; Translations: [Other muscle spasm] 05-07-2024 Episodic Other connective tissue disease (1 source) Pain of toe of right foot; Translations: [Pain in right toe(s)] Onset: 4 Episodic Other connective tissue disease (20 sources) Myofascial pain syndrome of lumbar spine; Translations: [Myalgia, other site] 06-16-2024 Episodic Other connective tissue disease (5 sources) Myalgia, other site; Translations: [Myalgia and myositis, unspecified] 06-16-2024 Episodic Other connective tissue disease (17 sources) Tendinitis of left posterior tibial tendon; Translations: [Posterior tibial tendinitis, left leg] 08-14-2024 Episodic Other connective tissue disease (2 sources) Other specified disorders of synovium and tendon, unspecified ankle and foot; Translations: [Other disorders of synovium, tendon, and bursa] 08-16-2024 Episodic Other connective tissue disease (9 sources) Disorder of musculoskeletal system; Translations: [Other specified disorders of synovium, left ankle and foot] 08-17-2024 Episodic Other connective tissue disease (10 sources) Pain of left hand; Translations: [Pain in left hand] 08-25-2024 Episodic Other connective tissue disease (3 sources) Pain in right hand; Translations: [Pain in right hand] 10-12-2024 Episodic Other connective tissue disease (1 source) Radial styloid tenosynovitis; Translations: [Radial styloid tenosynovitis [de Quervain]] 11-06-2024 Episodic Other connective tissue disease (4 sources) Capsulitis of metatarsophalangeal joint of right foot; Translations: [Other enthesopathy of right foot and ankle] 12-01-2024 Episodic Other connective tissue disease (4 sources) Tendinitis of right posterior tibial tendon; Translations: [Posterior tibial tendinitis, right leg] 02-15-2025 Episodic Other connective tissue disease (11 sources) Chronic pain of left upper limb; Translations: [Pain in left finger(s)] Onset: 5 02-18-2025 Episodic Other connective tissue disease (1 source) Pain in left finger(s); Translations: [Chronic pain of left thumb] Onset: 5 Episodic Other diseases of bladder and urethra (2 sources) Overactive bladder; Translations: [Overactive bladder] 11-28-2023 Chronic Other diseases of bladder and urethra (4 sources) Unspecified urethral stricture, female; Translations: [UNSP URETHRAL STRICTURE FEMALE] Onset: 3 Episodic Other diseases of veins and lymphatics (20 sources) Lymphedema; Translations: [Lymphedema, not elsewhere classified] 08-22-2024 Chronic Other diseases of veins and lymphatics (20 sources) Edema of lower extremity; Translations: [Chronic venous hypertension (idiopathic) without complications of bilateral lower extremity] Chronic Other diseases of veins and lymphatics (6 sources) Lymphedema associated with obesity; Translations: [Lymphedema, not elsewhere classified] 03-01-2025 Chronic Other diseases of veins and lymphatics (20 sources) Peripheral venous insufficiency; Translations: [Venous insufficiency (chronic) (peripheral)] Episodic Other diseases of veins and lymphatics (1 source) Venous insufficiency (chronic) (peripheral) Episodic Other disorders of stomach and duodenum (20 sources) Gastroparesis syndrome; Translations: [Gastroparesis] 09-10-2024 Episodic Other ear and sense organ disorders [...] ear and sense organ disorders (1 source) Otalgia, left ear; Translations: [Otalgia, left ear] Onset: 5 Episodic Other eye disorders (1 source) Bilateral arcus senilis; Translations: [Arcus senilis, bilateral] Episodic Other female genital disorders (1 source) Vaginal dryness; Translations: [Other specified noninflammatory disorders of vagina] 01-28-2024 Episodic Other gastrointestinal disorders (20 sources) Constipation; Translations: [Constipation, unspecified] 07-20-2019 Episodic Other gastrointestinal disorders (20 sources) Irregular bowel habits; Translations: [Other specified symptoms and signs involving the digestive system and abdomen] 09-01-2024 Episodic Other gastrointestinal disorders (10 sources) Other specified symptoms and signs involving the digestive system and abdomen; Translations: [Other specified disorders of intestine] 09-01-2024 Episodic Other hereditary and degenerative nervous system conditions (20 sources) Restless legs; Translations: [Restless legs syndrome] Onset: 5 01-26-2019 Chronic Other hereditary and degenerative nervous [...] chronic pain] Chronic Other nervous system disorders (8 sources) Other chronic pain; Translations: [Chronic pain of right ankle] Onset: 5 Chronic Other nervous system disorders (2 sources) Bilateral carpal tunnel syndrome; Translations: [Carpal tunnel syndrome, bilateral upper limbs] 10-15-2023 Chronic Other nervous system disorders (2 sources) Carpal tunnel syndrome, left upper limb; Translations: [Carpal tunnel syndrome, left upper limb] Onset: 3 Chronic Other nervous system disorders (2 sources) Neuropathy; Translations: [Polyneuropathy, unspecified] 05-10-2024 Chronic Other non-traumatic joint disorders (7 sources) Chronic ankle pain; Translations: [Pain in left ankle and joints of left foot] 08-16-2024 Episodic Other non-traumatic joint disorders (1 source) Pain in wrist; Translations: [Pain in left wrist] 01-12-2025 Episodic Other non-traumatic joint disorders (8 sources) Pain of left wrist; Translations: [Pain in left wrist] 01-20-2025 Episodic Other nutritional; endocrine; and metabolic disorders (20 sources) Morbid obesity; Translations: [Morbid (severe) obesity due to excess calories] Onset: 5 06-23-2015 Chronic Other nutritional; endocrine; and metabolic disorders (20 sources) Body mass index 40+ - severely obese; Translations: [Body mass index (BMI) 40.0-44.9, adult] Onset: 5 01-07-2025 Chronic Other nutritional; endocrine; and metabolic disorders [...] nutritional; endocrine; and metabolic disorders (2 sources) Morbid (severe) obesity due to excess calories; Translations: [Morbid obesity (HCC)] Onset: 5 Chronic Other nutritional; endocrine; and metabolic disorders (14 sources) Abnormal weight gain; Translations: [Abnormal weight gain] 02-16-2025 Episodic Other skin disorders (18 sources) Eruption; Translations: [Rash and other nonspecific skin eruption] 09-20-2024 Episodic Other skin disorders (6 sources) Rash and other nonspecific skin eruption; Translations: [Rash and other nonspecific skin eruption] 09-17-2024 Episodic Other upper respiratory disease (20 sources) Nasal congestion; Translations: [Nasal congestion] 09-04-2021 Episodic Other upper respiratory disease (1 source) Nasal congestion Episodic Otitis media and related conditions (20 sources) Serous otitis media; Translations: [Unspecified nonsuppurative otitis media, unspecified ear] 08-11-2021 Episodic Prolapse of female genital organs (20 sources) Midline cystocele; Translations: [Cystocele, midline] Chronic Rehabilitation care; fitting of prostheses; and adjustment of devices (1 source) Encounter for fitting and adjustment of other specified devices; Translations: [Encounter for fitting and adjustment of other specified devices] Onset: 5 Chronic Residual codes; unclassified (20 sources) Sleep apnea; Translations: [Sleep apnea, unspecified] Onset: 5 11-18-2024 Chronic Residual codes; unclassified (20 sources) Insomnia; Translations: [Other insomnia] Chronic Residual codes; unclassified (20 sources) Daytime somnolence; Translations: [Other hypersomnia] Chronic Residual codes; unclassified (2 sources) Sleep apnea, unspecified; Translations: [Sleep apnea, unspecified type] Onset: 5 Chronic Residual codes; unclassified (2 sources) Localized edema Onset: 1 Resolved: 1 Episodic Residual codes; unclassified (1 source) Acquired absence of other specified parts of digestive tract; Translations: [ACQ ABSENCE OTH PART DIGESTV TRACT] Onset: 3 Episodic Residual codes; unclassified (2 sources) History of operative procedure on foot; Translations: [Other specified postprocedural states] 10-15-2023 Episodic Residual codes; unclassified (19 sources) Impaired exercise tolerance; Translations: [Other general symptoms and signs] 12-23-2024 Episodic Residual codes; unclassified (2 sources) Other general symptoms and signs; Translations: [Other general symptoms] 12-23-2024 Episodic Residual codes; unclassified (20 sources) Postoperative state; Translations: [Other specified postprocedural states] 01-13-2025 Episodic Screening and history of mental health and substance abuse codes (1 source) Personal history of nicotine dependence; Translations: [PERSONAL HISTORY OF NICOTINE DEPEND] Onset: 3 Episodic Skin and subcutaneous tissue infections (20 sources) Cellulitis; Translations: [Cellulitis, unspecified] 06-14-2022 Episodic Spondylosis; intervertebral disc disorders; other back problems (20 sources) Degeneration of lumbar intervertebral disc; Translations: [Other intervertebral disc degeneration, lumbar region] Onset: 4 Chronic Spondylosis; intervertebral disc disorders; other back problems (20 sources) Low back pain; Translations: [Low back pain] Onset: 1 Resolved: 2 Episodic Sprains and strains (20 sources) Low back strain; Translations: [Strain of muscle, fascia and tendon of lower back, initial encounter] 04-10-2021 Episodic Substance-related disorders (20 sources) Smoker; Translations: [Nicotine dependence, unspecified, uncomplicated] Onset: 5 06-26-2015 Chronic Comment on above: Added secondary to d ocumentation in Social History. Superficial injury; contusion (20 sources) Contusion of knee; Translations: [Contusion of left knee, initial encounter] 04-10-2021 Episodic Unclassified (20 sources) NO SHOW Onset: 5 12-09-2014 Unclassified (4 sources) Asymptomatic microscopic hematuria 05-02-2022 Unclassified (1 source) DIRECTOR TOXICOLOGY INJECT NONINSULN ANTIDIAB; Translations: [DIRECTOR TOXICOLOGY INJECT NONINSULN ANTIDIAB] Onset: 3 Unclassified (2 sources) Post hospital appointment. Please call to reschedule if needed. Unclassified (1 source) Pyuria; Translations: [Pyuria] Onset: 5 Unclassified (1 source) Cough, unspecified; Translations: [Cough, unspecified] Onset: 5 Varicose veins of lower extremity (20 sources) [...] pelvis; Translations: [Pelvic and perineal pain] Onset: 05-04-2024 01-29-2020 Episodic Allergic reactions (20 sources) Inflammatory dermatosis; Translations: [Dermatitis, unspecified] Onset: 10-23-2024 10-20-2022 Episodic Blindness and vision defects (20 sources) Bilateral regular astigmatism; Translations: [Regular astigmatism, bilateral] Onset: 12-23-2023 Episodic Calculus of urinary tract (20 sources) Kidney stone; Translations: [Calculus of kidney] Onset: 10-09-2022 Resolved: 07-24-2012 05-02-2022 Episodic Comment on above: LEFT Complication of device; implant or graft (4 sources) Pain due to knee joint prosthesis; Translations: [Pain due to internal orthopedic prosthetic devices, implants and grafts, initial encounter] Onset: 10-28-2024 10-28-2024 Episodic E Codes: Fall (20 sources) Fall on same level from slipping, tripping or stumbling ; Translations: [Fall on same level from slipping, tripping and stumbling without subsequent striking against object, initial encounter] Onset: 09-17-2024 04-10-2021 Episodic Joint disorders and dislocations; trauma-related (20 sources) Dislocation of tarsometatarsal joint of unspecified foot, initial encounter; Translations: [Closed dislocation of tarsometatarsal (joint)] Onset: 06-03-2015 06-03-2015 Episodic Lymphadenitis (1 source) Generalized enlarged lymph nodes Onset: 08-15-2021 Resolved: 08-15-2021 Episodic Nausea and vomiting (20 sources) Nausea and vomiting; Translations: [Nausea with vomiting, unspecified] Onset: 09-09-2024 06-29-2022 Episodic Nonmalignant breast conditions (20 sources) Breast lump; Translations: [Unspecified lump in the left breast, unspecified quadrant] Onset: 11-18-2024 03-01-2021 Episodic Other connective tissue disease (20 sources) Pain in right foot; Translations: [Pain in right foot] Onset: 06-03-2015 06-03-2015 Episodic Other connective tissue disease (20 sources) Dysfunction of posterior tibial tendon; Translations: [Posterior tibial tendinitis, unspecified leg] Onset: 06-23-2015 06-23-2015 Episodic Other connective tissue disease (7 sources) Pain in left hand; Translations: [Pain in limb] Onset: 04-04-2023 11-03-2022 Episodic Other connective tissue disease (4 sources) Pain in right foot; Translations: [PAIN IN RIGHT FOOT] Onset: 06-03-2015 Episodic Other connective tissue disease (3 sources) Pain in right hand; Translations: [Pain in right hand] Onset: 04-04-2023 Episodic Other connective tissue disease (20 sources) Pain in both feet; Translations: [Pain in right foot] Onset: 01-25-2023 01-25-2023 Episodic Other connective tissue disease (20 sources) Muscle weakness; Translations: [Muscle weakness (generalized)] Onset: 01-11-2024 01-11-2024 Episodic Other connective tissue disease (20 sources) Pain in limb; Translations: [Pain in unspecified limb] Onset: 01-11-2024 01-11-2024 Episodic Other connective tissue disease (20 sources) Tenosynovitis of left radial styloid; Translations: [Radial styloid tenosynovitis [de Quervain]] Onset: 08-31-2024 08-31-2024 Episodic Other connective tissue disease (1 source) Radial styloid tenosynovitis [de Quervain]; Translations: [De Quervain's tenosynovitis] Onset: 01-07-2025 Episodic Other connective tissue disease (1 source) Pain in left leg; Translations: [Pain in left leg] Onset: 08-22-2024 Episodic Other diseases of kidney and ureters (1 source) Crossing vessel and stricture of ureter without hydronephrosis; Translations: [CROSSING VES STRICT URETER W/O HN] Onset: 09-05-2022 Episodic Other disorders of stomach and duodenum (1 source) Gastroparesis Onset: 04-02-2022 Resolved: 04-02-2022 Episodic Other ear and sense organ disorders (2 sources) Otalgia, bilateral Onset: 08-15-2021 Resolved: 03-01-2022 Episodic Other eye disorders (20 sources) Disorder of lacrimal gland; 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] Onset: 12-23-2023 12-23-2023 Episodic Other inflammatory condition of skin (1 source) Seborrhea capitis Onset: 08-15-2021 Resolved: 08-15-2021 Episodic Other lower respiratory disease (1 source) Dyspnea, unspecified; Translations: [Dyspnea, unspecified] Onset: 12-23-2024 Episodic Other nervous system disorders (20 sources) Skin sensation disturbance; Translations: [Unspecified disturbances of skin sensation] Onset: 01-11-2024 10-15-2023 Episodic Other nervous system disorders (2 sources) Anesthesia of skin; Translations: [Anesthesia of skin] Onset: 05-16-2023 Episodic Other nervous system disorders (2 sources) Paresthesia of skin; Translations: [Paresthesia of skin] Onset: 05-16-2023 Episodic Other nervous system disorders (2 sources) Other acute postprocedural pain; Translations: [Other acute postprocedural pain] Onset: 11-09-2022 Episodic Other nervous system disorders (20 sources) Paresthesia; Translations: [Paresthesia of skin] Onset: 01-11-2024 01-11-2024 Episodic Other non-traumatic joint disorders (20 sources) Ankle pain; Translations: [Pain in right ankle and joints of right foot] Onset: 06-03-2015 06-03-2015 Episodic Other non-traumatic joint disorders (20 sources) Pain in left knee; Translations: [Chronic pain of left knee] Onset: 10-28-2024 06-25-2019 Episodic Other non-traumatic joint disorders (1 source) Pain in right ankle and joints of right foot; Translations: [Chronic pain of right ankle] Onset: 06-03-2015 Episodic Other non-traumatic joint disorders (1 source) Pain in left wrist; Translations: [Pain in left wrist] Onset: 01-12-2025 Episodic Other non-traumatic joint disorders (1 source) Pain in unspecified joint; Translations: [Pain in unspecified joint] Onset: 10-07-2024 Episodic Other screening for suspected conditions (not mental disorders or infectious disease) (20 sources) Mammography abnormal; Translations: [Other abnormal and inconclusive findings on diagnostic imaging of breast] Onset: 05-14-2023 Episodic Other skin disorders (1 source) Localized swelling, mass and lump, neck Onset: 01-05-2022 Resolved: 01-05-2022 Episodic Other skin disorders (20 sources) Callosity; Translations: [Corns and callosities] Onset: 01-25-2023 01-25-2023 Episodic Other skin disorders (20 sources) Ingrowing toenail; Translations: [Ingrowing nail] Onset: 01-25-2023 01-25-2023 Episodic Other upper respiratory infections (20 sources) Acute sinusitis, unspecified; Translations: [Viral upper respiratory tract infection] Onset: 09-11-2021 Resolved: 01-22-2022 Episodic Residual codes; unclassified (4 sources) Body fluid retention Resolved: 07-24-2012 01-26-2019 Episodic Residual codes; unclassified (20 sources) Past history of procedure; Translations: [Other specified postprocedural states] Onset: 05-14-2023 10-20-2022 Episodic Residual codes; unclassified (2 sources) Pain; Translations: [Pain] Onset: 07-23-2023 Episodic Residual codes; unclassified (2 sources) Pain, unspecified; Translations: [Pain, unspecified] Onset: 06-19-2023 Episodic Residual codes; unclassified (20 sources) Insomnia; Translations: [Insomnia, unspecified] Onset: 01-11-2024 01-11-2024 Episodic Residual codes; unclassified (20 sources) Other specified postprocedural states; Translations: [Other postprocedural status] Onset: 06-01-2024 11-18-2024 Episodic Residual codes; unclassified (1 source) Flushing; Translations: [Flushing] Onset: 10-07-2024 Episodic Substance-related disorders (20 sources) Marijuana user; Translations: [Cannabis use, unspecified, uncomplicated] Onset: 12-16-2024 12-16-2024 Episodic Unclassified (2 sources) Cough R05.9 Onset: 09-11-2021 Resolved: 09-11-2021 Unclassified (2 sources) Acute cough R05.1 Unclassified (1 source) Subacute cough R05.2 Unclassified (4 sources) Methicillin resistant Staphylococcus aureus (organism) Resolved: 07-24-2012 01-26-2019 Comment on above: STATED WAS 8 MONTHS AGO STATED HAD RT BREAST INFECTION WAS TREATED BY HER DR WITH ORAL ANTIBIOTICS SAID IT WAS CULTURED Unclassified (6 sources) Other low back pain M54.59 Unclassified (1 source) Acute pain of left knee 10-28-2024 Urinary tract infections (20 sources) Urinary tract infectious disease; Translations: [Urinary tract infection, site not specified] Onset: 05-08-2024 03-24-2019 Episodic Results Test Name Value Interpretation Reference Range Facility [facility] 04-12-2025 CNOV Office Visit (LOORRM ) ----- ANDREALISA ([id number]) 1975 F Date Time Provider Department 04/12/25 1:00 PM KWAME MCNEIL LOORR During your visit today, we recorded the following information about you: Kwame Mcneil MD 04/12/2025 1:39 PM Signed OPERATIVE REPORT: PROCEDURE: Left thumb revision carpometacarpal arthroplasty with slip of abductor pollicis longus tendon and internal brace with suture anchors; left first dorsal compartment release; extensor pollicis brevis transfer and thumb metacarpal phalangeal pinning DATE: 01/07/2025 SURGICAL PATHOLOGY: FINAL DIAGNOSIS A. Left thumb, hardware, removal: - Grossly unremarkable metal plates (gross examination only) 3 months out. She is feeling really good. The pain that she had before surgery is essentially gone. No numbness or tingling. She is very happy. PHYSICAL EXAM: All incisions are well-healed. Sensation intact in superficial radial distribution. No pain at the first dorsal compartment. Smooth and painless and stable circumduction of the CMC. Intact EPL and FPL. Able make a full fist. PLAN: At this point she can begin weaning out of her brace and into normal use. She can be activity as tolerated and will see me in the future as needed. Allergies As of Date: 04/12/2025 Noted Allergy Reaction ROPINIROLE 03/13/2019 4 - Hives TOPIRAMATE 11/11/2013 4 - Hives 2 - Rash 14 - Other: See Comments ALOE VERA 04/02/2012 14 - Other: See Comments BACLOFEN 01/01/2020 14 - Other: See Comments 7 - Swelling CEPHALEXIN 04/02/2012 8 - GI Upset 11 - Vomiting CIPROFLOXACIN 04/02/2012 14 - Other: See Comments CYCLOBENZAPRINE 11/11/2013 4 - Hives 16 - Unknown DICLOFENAC 04/02/2012 14 - Other: See Comments 16 - Unknown Comments: Stomach pain and cramping DULOXETINE 08/27/2024 14 - Other: See Comments Comments: Fatigue GABAPENTIN 04/02/2012 4 - Hives 16 - Unknown 14 - Other: See Comments MENTHOL 04/02/2012 14 - Other: See Comments METFORMIN 11/11/2013 4 - Hives MORPHINE 08/27/2023 8 - GI Upset NAPROXEN 04/02/2012 2 - Rash 16 - Unknown NSAIDS (NON-STEROIDAL ANTI-INFLAM*01/04/2019 4 - Hives 2 - Rash 14 - Other: See Comments OXYCODONE 05/25/2024 8 - GI Upset PENICILLINS 11/18/2024 2 - Rash SUMATRIPTAN 09/04/2021 8 - GI Upset 2 - Rash TRAMADOL 11/18/2024 8 - GI Upset VITAMIN E 04/02/2012 2 - Rash 16 - Unknown 14 - Other: See Comments AZITHROMYCIN 04/02/2012 9 - Itching 2 - Rash ZONISAMIDE 12/10/2022 2 - Rash Date Reviewed: 04/12/2025 Reviewed by: Nely Kwan OCCA - Fully Assessed Reason for Visit: Established Patient [175] Post Op [174] Primary Visit Diagnosis:Postoperative state [Z98.890] Prescriptions as of 04/12/2025 - azithromycin (ZITHROMAX) 250 mg tablet 250 mg. - DEXCOM G7 SENSOR beth as directed. - cetirizine (ZYRTEC) 10 mg tablet - spironolactone (ALDACTONE) 50 mg tablet 1 tablet Orally Once a day; Duration: 30 days - meloxicam (MOBIC) 15 mg tablet Take 1 tablet by mouth once daily. with food - clindamycin (CLEOCIN) 150 mg capsule Take 4 caps 1 hour prior to dentist - SYMBICORT 160-4.5 mcg/actuation inhaler INHALE 2 PUFFS BY MOUTH 2 TIMES A DAY FOR 30 DAYS - carBAMazepine ER (CARBATROL) 300 mg 12 hr capsule 1 capsule. - CAPLYTA 21 mg capsule Take 1 capsule by mouth once daily. - pregabalin (LYRICA) 150 mg capsule Take 150 mg by mouth once daily. - QUEtiapine (SEROQUEL) 25 mg tablet Take 25 mg by mouth daily at bedtime. - ipratropium-albuterol (DUONEB) 0.5 mg-3 mg(2.5 mg base)/3 mL nebu Inhale 3 mL as instructed every 6 hours as needed for wheezing/shortness of breath. - albuterol (PROVENTIL) 2.5 mg /3 mL (0.083 %) nebulizer solution Use 2.5 mg via nebulizer every 6 hours as needed for wheezing/shortness of breath. - VENTOLIN HFA 90 mcg/actuation inhaler Inhale 1 puff as instructed every 6 hours as needed. - nabumetone (RELAFEN) 500 mg tablet 500 mg. - pramipexole (MIRAPEX) 0.125 mg tablet TAKE [...] mg subcutaneously one time a week. - carbidopa-levodopa (SINEMET 10-100) 10-100 mg per tablet 1 tablet daily at bedtime. Problem List As Of Date 04/12/2025 Noted Resolved NO SHOW [418373] 12/09/2014 Right ankle pain [M25.571] 06/03/2015 Pain in right foot [M79.671] 06/03/2015 Lisfranc dislocation [S93.326A] 06/03/2015 DJD (degenerative joint disease), ankle and mae*06/23/2015 PTTD (posterior tibial tendon dysfunction) [M76*11 (more content not included)... Normal [facility] A1C with Estimated Average G hawan 04-02-2025 Glucose [Mass/Vol] 160 mg/dL Normal [facility] Comment on above: Result Comment: PERF ORMED BY: [facility] [address] [place] [id number] PATHOLOGIST ELEVATOR DISPATCHER CHEYANNE RAE M.D. Performed By: #### L IPID, BMP, CBC, A1C WTH eA ####[address] [address] [facility] Basic Metabolic Panelon 03-06 Creatinine Clr Calc Pharmacy 155.59 Normal [facility] Comment on above: Performed By: #### L IPID, BMP, CBC, A1C WTH eA ####[place] [id number] [facility] GFR/1.73 sq M.predicted MDRD (S/P/Bld) [Vol rate/Area] mL/min/{1.73_m2} Normal [facility] Comment on above: Performed By: #### L IPID, BMP, CBC, A1C WTH eA ####[place] [id number] [facility] Basophils [#/volume] in Bloo d by Automated countOrdered By: Jerry Sarmiento on 04-02-2025 Basophils (Bld) [#/Vol] 0.0 10*3/uL Normal 0.0-0.2 [facility] Comment on above: Result Comment: PERF ORMED BY: [facility] [address] [place] [id number] PATHOLOGIST ELEVATOR DISPATCHER CHEYANNE RAE M.D. Performed By: #### L IPID, BMP, CBC, A1C WTH eA ####[place] [id number] [facility] Basophils/100 leukocytes in Blood by Automated countOrdered By: Jerry Sarmiento on 04-02-2025 Basophils/100 WBC (Bld) 0.4 % Normal . [facility] Comment on above: Performed By: #### L IPID, BMP, CBC, A1C WTH eA ####[place] [id number] [facility] Blood estimated average gluc ose determination by estimation from glycated hemoglobinOrdered By: Jerry Sarmiento on 04-02-2025 Average glucose Estimated from glycated hemoglobin (Bld) [Mass/Vol] 160 mg/dL [facility] Calcium [Mass/volume] in Ser um or PlasmaOrdered By: Jerry Sarmiento on 04-02-2025 Calcium [Mass/Vol] 8.9 mg/dL Normal 8.6-10.3 [facility] Comment on above: Performed By: #### L IPID, BMP, CBC, A1C WT eA ####[place] [address] [place] [id number] [facility] Carbon dioxide, total [Moles /volume] in Serum or PlasmaOrdered By: Jerry Sarmiento on 04-02-2025 CO2 [Moles/Vol] 25.0 mmol/L Normal 21.0-31.0 [facility] Comment on above: Performed By: #### L IPID, BMP, CBC, A1C WT eA ####[place] [id number] [facility] Chloride [Moles/volume] in S claudia or PlasmaOrdered By: Jerry Sarmiento on 04-02-2025 Chloride [Moles/Vol] 105 mmol/L Normal 98-107 [facility] Comment on above: Performed By: #### L IPID, BMP, CBC, A1C WT eA ####[place] [id number] [facility] Cholesterol [Mass/volume] in Serum or PlasmaOrdered By: Jerry Sarmiento on 04-02-2025 Cholesterol [Mass/Vol] 190 mg/dL Normal 140-200 [facility] Comment on above: Chol less than 200 m g/dl low riskChol 201-239 mg/dl borderline riskChol 240 mg/dl and greater high risk Result Comment: Chol less than 200 mg/dl low risk Chol 201-239 mg/dl borderline risk Chol 240 mg/dl and greater high risk Performed By: #### L IPID, BMP, CBC, A1C WT eA ####[place] [id number] [facility] Cholesterol in HDL [Mass/vol ume] in Serum or PlasmaOrdered By: Jerry Sarmiento on 04-02-2025 Cholesterol in HDL [Mass/Vol] 48 mg/dL Normal 23-92 [facility] Comment on above: HDL CHOL ATP-III CLA SSIFICATION Cardiovascular RiskHDL > or equal to 60 mg/dL LOWHDL < 40 mg/dL HIGH Result Comment: HDL CHOL ATP-III CLASSIFICATION Cardiovascular Risk HDL > or equal to 60 mg/dL LOW HDL < 40 mg/dL HIGH Performed By: #### L IPID, BMP, CBC, A1C WTH eA ####[facility] [id number] [place] [address] [facility] Cholesterol in LDL Calc [Mas s/Vol]Ordered By: Jerry Sarmiento on 04-02-2025 Cholesterol in LDL [Mass/Vol] 98 mg/dL 0-100 [facility] Comment on above: LDL ATP III CLASSIFI CATIONLDL less than 100 mg/dL OptimalLDL 100-129 mg/dL Near or above optimalLDL 130-159 mg/dL Borderline highLDL 160-189 mg/dL HighLDL greater than 189 mg/dL Very high Cholesterol in VLDL Calc [Ma ss/Vol]Ordered By: Jerry Sarmiento on 04-02-2025 Cholesterol in VLDL [Mass/Vol] 44 mg/dL [facility] Complete Blood Count Auto Di ffon 04-02-2025 Mean Corpuscular HGB Conc 34.8 g/dL Normal 32.0-35.0 [facility] Comment on above: Performed By: #### L IPID, BMP, CBC, A1C WTH eA ####[facility] [id number] [place] [address] [facility] NRBC% 0.0 /100{WBC} Normal 0-0.5 [facility] Comment on above: Performed By: #### L IPID, BMP, CBC, A1C WTH eA ####[facility] [id number] [place] [address] [facility] White Blood Count 6.9 [CFU]/mL Normal 3.8-11.6 [facility] Comment on above: Performed By: #### L IPID, BMP, CBC, A1C WTH eA ####[place] [id number] [facility] Creatinine [Mass/volume] in Serum or PlasmaOrdered By: Jerry Sarmiento on 04-02-2025 Creatinine [Mass/Vol] 0.51 mg/dL Low 0.60-1.20 [facility] Comment on above: Performed By: #### L IPID, BMP, CBC, A1C WT eA ####[address] Eosinophils [#/volume] in Bl ood by Automated countOrdered By: Jerry Sarmiento on 04-02-2025 Eosinophils (Bld) [#/Vol] 0.3 10*3/uL Normal 0.0-0.45 [facility] Comment on above: Performed By: #### L IPID, BMP, CBC, A1C WTH eA ####[address] Eosinophils/100 leukocytes i n Blood by Automated countOrdered By: Jerry Sarmiento on 04-02-2025 Eosinophils/100 WBC (Bld) 4.3 % Normal . [facility] Comment on above: Performed By: #### L IPID, BMP, CBC, [address] eA ####[place] [id number] [facility] Erythrocyte distribution wid th [Ratio] by Automated countOrdered By: Jerry Sarmiento on 04-02-2025 Erythrocyte distribution width (RBC) [Ratio] 12.9 % Normal 11.9-15.3 [facility] Comment on above: Performed By: #### L IPID, BMP, CBC, A1C WT eA ####[place] [id number] [place] Erythrocytes [#/volume] in B lood by Automated countOrdered By: Jerry Sarmiento on 04-02-2025 RBC (Bld) [#/Vol] 4.30 10*6/uL Normal 3.60-5.00 [facility] Comment on above: Performed By: #### L IPID, BMP, CBC, A1C WTH eA ####[facility] [place] [id number] [facility] Glomerular filtration rate [ Volume Rate/Area] in Serum, Plasma or Blood by CreatinineOrdered By: Jerry Sarmiento on 04-02-2025 Glomerular filtration rate [Volume Rate/Area] in Serum, Plasma or Blood by Creatinine > 60.0 mL/Min [facility] Glucose [Mass/volume] in Ser um or PlasmaOrdered By: Jerry Sarmiento on 04-02-2025 Glucose [Mass/Vol] 114 mg/dL High 70-100 [facility] Comment on above: ADA recommended refe rence rangeRandom Glucose Reference Range is dependent on time and content of last meal. Glucose of more than 200 mg/dL in a nonstressed, ambulatory subject supports the diagnosis of Diabetes Mellitus. Result Comment: Isabel om Glucose Reference Range is dependent on time and content of last meal. Glucose of more than 200 mg/dL in a nonstressed, ambulatory subject supports the diagnosis of Diabetes Mellitus. ADA recommended reference range Performed By: #### L IPID, BMP, CBC, A1C WTH eA ####[facility] [place] [id number] [facility] Hematocrit [Volume Fraction] of Blood by Automated countOrdered By: Jerry Sarmiento on 04-02-2025 Hematocrit (Bld) [Volume fraction] 34.8 % Normal 34.0-46.4 [facility] Comment on above: Performed By: #### L IPID, BMP, CBC, A1C WTH eA ####[place] [address] [address] Hemoglobin A1c/Hemoglobin.to hanna in BloodOrdered By: Jerry Sarmiento on 04-02-2025 HbA1c (Bld) [Mass fraction] 7.2 % High 4.3-5.6 [facility] Comment on above: Increased risk for d iabetes: 5.7 - 6.4diabetes: >6.4glycemic control for adults with diabetes: <7.0 Result Comment: Incr eased risk for diabetes: 5.7 - 6.4 diabetes: >6.4 glycemic control for adults with diabetes: <7.0 Performed By: #### L IPID, BMP, CBC, A1C WTH eA ####[facility] Hemoglobin [Mass/volume] in BloodOrdered By: Jerry Sarmiento on 04-02-2025 Hemoglobin (Bld) [Mass/Vol] 12.1 g/dL Normal 11.8-15.4 [facility] Comment on above: Performed By: #### L IPID, BMP, CBC, A1C WT eA ####[place] [address] [address] Leukocytes [#/volume] correc cristian for nucleated erythrocytes in Blood by Automated counOrdered By: Jerry Sarmiento on 04-02-2025 WBC corrected for nucl RBC Auto (Bld) [#/Vol] 6.9 10*3/uL 3.8-11.6 [facility] Leukocytes [#/volume] in Blo od by Automated countOrdered By: Jerry Sarmiento on 04-02-2025 WBC (Bld) [#/Vol] 6.9 10*3/uL Normal 3.8-11.6 [facility] Comment on above: Performed By: #### L IPID, BMP, CBC, A1C [facility] eA ####[place] [address] [address] Lipid Panelon 04-02-2025 LDL Cholesterol,Calculated 98 mg/dL Normal 0-100 [facility] Comment on above: Result Comment: LDL ATP III CLASSIFICATION LDL less than 100 mg/dL Optimal LDL 100-129 mg/dL Near or above optimal LDL 130-159 mg/dL Borderline high LDL 160-189 mg/dL High LDL greater than 189 mg/dL Very high Performed By: #### L IPID, BMP, CBC, A1C WT eA ####[place] [address] [place] [id number] [facility] Triglyceride w/Reflex 220 mg/dL High 0-149 [facility] Comment on above: Result Comment: TRIG ATP III CLASSIFICATION TRIG less than 150 mg/dL Normal TRIG 150-199 mg/dL Borderline high TRIG 200-500 mg/dL High TRIG greater than 500 mg/dL Very high Standard traceable to the Center for Disease Conrtrol and Prevention (CDC) test method. Performed By: #### L IPID, BMP, CBC, A1C WTH eA ####[address] VLDL CHOLESTEROL 44 mg/dL Normal [facility] Comment on above: Performed By: #### L IPID, BMP, CBC, A1C WTH eA ####[address] Lymphocytes [#/volume] in Bl ood by Automated countOrdered By: Jerry Sarmiento on 04-02-2025 Lymphocytes (Bld) [#/Vol] 1.5 10*3/uL Normal 1.00-4.8 [facility] Comment on above: Performed By: #### L IPID, BMP, CBC, A1C WTH eA ####[address] Lymphocytes/100 leukocytes i n Blood by Automated countOrdered By: Jerry Sarmiento on 04-02-2025 Lymphocytes/100 WBC (Bld) 22.3 % Normal . [facility] Comment on above: Performed By: #### L IPID, BMP, CBC, A1C WTH eA ####[address] MCH [Entitic mass] by Automa cristian countOrdered By: Jerry Sarmiento on 04-02-2025 MCH (RBC) [Entitic mass] 28.2 pg Normal 24.7-34.3 [facility] Comment on above: Performed By: #### L IPID, BMP, CBC, A1C WTH eA ####[address] MCHC Auto (RBC) [Mass/Vol]Or dered By: Jerry Sarmiento on 04-02-2025 MCHC (RBC) [Mass/Vol] 34.8 g/dL 32.0-35.0 [facility] MCV [Entitic volume] by Auto mated countOrdered By: Jerry Sarmiento on 04-02-2025 MCV (RBC) [Entitic vol] 81.0 fL Normal 80-100 [facility] Comment on above: Performed By: #### L IPID, BMP, CBC, A1C [facility] eA ####[address] Monocytes [#/volume] in Bloo d by Automated countOrdered By: Jerry Sarmiento on 04-02-2025 Monocytes (Bld) [#/Vol] 0.6 10*3/uL Normal 0.0-0.8 [facility] Comment on above: Performed By: #### L IPID, BMP, CBC, A1C WT eA ####[place] [id number] [facility] Monocytes/100 leukocytes in Blood by Automated countOrdered By: Jerry Sarmiento on 04-02-2025 Monocytes/100 WBC (Bld) 9.1 % Normal . [facility] Comment on above: Performed By: #### L IPID, BMP, CBC, A1C [facility] eA ####[address] Neutrophils [#/volume] in Bl ood by Automated countOrdered By: Jerry Sarmiento on 04-02-2025 Neutrophils (Bld) [#/Vol] 4.4 10*3/uL Normal 1.8-7.7 [facility] Comment on above: Performed By: #### L IPID, BMP, CBC, A1C [facility] eA ####[place] [id number] [facility] Neutrophils/100 leukocytes i n Blood by Automated countOrdered By: Jerry Sarmiento on 04-02-2025 Neutrophils/100 WBC (Bld) 63.9 % Normal . [facility] Comment on above: Performed By: #### L IPID, BMP, CBC, A1C [facility] eA ####[address] No Panel InformationOrdered By: Jerry Sarmiento on 04-02-2025 Pharmacy Creatinine Clearance (Chem 155.59 [facility] Nucleated erythrocytes [Pres ence] in Blood by Automated countOrdered By: Jerry Sarmiento on 04-02-2025 Nucleated RBC Auto Ql (Bld) 0.0 /100{WBC} 0-0.5 [facility] Platelet mean volume [Entiti c volume] in Blood by Automated countOrdered By: Jerry Sarmiento on 04-02-2025 Platelet mean volume (Bld) [Entitic vol] 7.1 fL Normal 6.3-10.7 [facility] Comment on above: Performed By: #### L IPID, BMP, CBC, [address] eA ####[place] [address] [address] Platelets [#/volume] in Bloo d by Automated countOrdered By: Jerry Sarmiento on 04-02-2025 Platelets (Bld) [#/Vol] 231 10*3/uL Normal 150-450 [facility] Comment on above: Performed By: #### L IPID, BMP, CBC, A1C [facility] eA ####[place] [address] [address] Potassium [Moles/volume] in Serum or PlasmaOrdered By: Jerry Sarmiento on 04-02-2025 Potassium [Moles/Vol] 4.3 mmol/L Normal 3.5-5.1 [facility] Comment on above: Performed By: #### L IPID, BMP, CBC, [address] eA ####[address] Serum or plasma anion gap de terminationOrdered By: Jerry Sarmiento on 04-02-2025 Anion gap [Moles/Vol] 11.3 mmol/L Normal 6.0-15.0 [facility] Comment on above: Performed By: #### L IPID, BMP, CBC, [address] eA ####[address] Serum or plasma total choles terol/high density lipoprotein (HDL) cholesterol mass ratOrdered By: Jerry Sarmiento on 04-02-2025 Cholesterol.total/Chol esterol in HDL [Mass ratio] 4.0 {ratio} Normal <5.0 [facility] Comment on above: Result Comment: PERF ORMED BY: [facility] [address] [place] [id number] PATHOLOGIST ELEVATOR DISPATCHER CHEYANNE RAE M.D. Performed By: #### L IPID, BMP, CBC, A1C [facility] eA ####[place] [address] [address] Sodium [Moles/volume] in Ser um or PlasmaOrdered By: Jerry Sarmiento on 04-02-2025 Sodium [Moles/Vol] 137 mmol/L Normal 136-145 [facility] Comment on above: Performed By: #### L IPID, BMP, CBC, A1C [facility] eA ####[place] [address] [address] Triglyceride [Mass/volume] i n Serum or PlasmaOrdered By: Jerry Sarmiento on 04-02-2025 Triglyceride [Mass/Vol] 220 mg/dL High 0-149 [facility] Comment on above: TRIG ATP III CLASSIF ICATIONTRIG less than 150 mg/dL NormalTRIG 150-199 mg/dL Borderline highTRIG 200-500 mg/dL High TRIG greater than 500 mg/dL Very highStandard traceable to the Center for Disease Conrtrol and Prevention (CDC) test method. Urea nitrogen [Mass/volume] in Serum or PlasmaOrdered By: Jerry Sarmiento on 04-02-2025 Urea nitrogen [Mass/Vol] 13 mg/dL Normal 7-25 [facility] Comment on above: Performed By: #### L IPID, BMP, CBC, [address] eA ####[place] [address] [address] Appearance of UrineOrdered B y: Kiley Dale on 04-01-2025 Appearance (U) Cloudy Critically abnormal Clear [facility] Comment on above: Order Comment: Name Collection Type:: Clean-Voided Midstream Performed By: #### C UU, ADDONUAPLUS ####[address] BNP ser/plasOrdered By: Rachel Dale on 04-01-2025 Natriuretic peptide B (Bld) [Mass/Vol] 10.0 pg/mL Normal 5-100 [facility] Comment on above: Result Comment: PERF ORMED BY: [address] [place] [address] PATHOLOGIST ELEVATOR DISPATCHER CHEYANNE RAE M.D. Performed By: #### C BC, MG, BMP, HCGQUAL, HS TROP, BNP ####[place] [id number] [facility] Bacteria [Presence] in Urine by AutomatedOrdered By: Kiley Dale on 04-01-2025 Bacteria Auto Ql (U) Rare [HPF] None Seen [facility] Basic Metabolic Panelon 03-06 Creatinine Clr Calc Pharmacy 115.78 Normal [facility] Comment on above: Performed By: #### C BC, MG, BMP, HCGQUAL, HS TROP, BNP ####[address] GFR/1.73 sq M.predicted MDRD (S/P/Bld) [Vol rate/Area] mL/min/{1.73_m2} Normal [facility] Comment on above: Performed By: #### C BC, MG, BMP, HCGQUAL, HS TROP, BNP ####[place] [id number] [place] Basophils [#/volume] in Bloo d by Automated countOrdered By: Kiley Dale on 04-01-2025 Basophils (Bld) [#/Vol] 0.1 10*3/uL Normal 0.0-0.2 [facility] Comment on above: Result Comment: PERF ORMED BY: [facility] [address] [place] [address] PATHOLOGIST ELEVATOR DISPATCHER CHEYANNE RAE M.D. Performed By: #### C BC, MG, BMP, HCGQUAL, HS TROP, BNP ####[place] [id number] [place] Basophils/100 leukocytes in Blood by Automated countOrdered By: Kiley Dale on 04-01-2025 Basophils/100 WBC (Bld) 0.6 % Normal . [facility] Comment on above: Performed By: #### C BC, MG, BMP, HCGQUAL, HS TROP, BNP ####[facility] [id number] Bilirubin Test strip Ql (U)O rdered By: Kiley Dale on 04-01-2025 Bilirubin Ql (U) Negative Negative [facility] CT angio headon 04-01-2025 CT angio head [facility] [address] [place] [address] [place] [address] CT Scan Report Signed Patient: Lisa Mendez MR#: [id number] : 1975 Acct:[id number] Age/Sex: 49 / F ADM Date: 04/01/25 Loc: ER Room: Type: [facility] ER Attending Dr: Copies to: Kiley Dale MD Ordering Provider: Kiley Dale MD Date of Service: 04/01/25 CT/CT angio head: lightheaded vs dizziness ([id number]) CT/CT angio neck: lightheaded vs dizziness ([id number]) CT/CT head/brain wo con: lightheaded vs dizziness CT head/brain wo con, CT angio neck, CT angio head 04/01/2025 1:18 PM SIGNS AND SYMPTOMS: lightheaded vs dizziness TECHNIQUE: Multi-detector CT angiography axial slices of the head and neck were obtained before and during intravenous administration of IV contrast material. Sagittal, coronal, and 3-D reconstructions were performed and viewed on a separate workstation. CT was performed with one or more of the following dose reduction techniques: Automated exposure control, adjustment of the mA and/or kV according to patient size, or use of iterative reconstruction technique. Stenoses were measured using the NASCET criteria. COMPARISON: CT brain 02/14/2025 FINDINGS: Noncontrast head CT: There is no evidence of midline shift, intra or extra-axial fluid collection, hemorrhage or CT evidence of stroke. Posterior fossa appears unremarkable. Visualized intraorbital contents demonstrate no acute findings. Visualized paranasal sinuses are clear. The surrounding soft tissues are normal. CTA HEAD: Posterior inferior cerebellar arteries : patent Basilar artery: patent Superior cerebellar arteries: patent Posterior cerebral arteries: patent Intracranial segments of the internal carotid arteries: patent MCA: patent NAGA: Hypoplastic A1 segment right anterior cerebral artery. Otherwise unremarkable. Anterior Communicating artery: patent Posterior Communicating arteries: Patent. CTA NECK: Vertebral arteries : patent Common Carotid arteries: patent Internal Carotid arteries: patent No gross central airway mass. No soft tissue swelling. No lymphadenopathy. Visualized lung apices demonstrate no acute process. Osseous structures demonstrate cervical spondylosis. CT/CT head/brain wo con IMPRESSION: No acute intracranial pathology. No evidence of critical stenosis, aneurysmal dilatation, dissection or occlusion. Impression dictated by: Erik Gipson Jr., DJeysonOJeyson 04/01/2025 1:29 PM Dictation Location: [facility]--22 Transcribed By: [facility] 04/01/25 1329 Dictated By: Erik Gipson Jr, DO 04/01/25 1321 Signed By: 04/01/25 132 Normal [facility] Calcium [Mass/volume] in Ser um or PlasmaOrdered By: Kiley Dale on 04-01-2025 Calcium [Mass/Vol] 9.2 mg/dL Normal 8.6-10.3 [facility] Comment on above: Performed By: #### C BC, MG, BMP, HCGQUAL, HS TROP, BNP ####[facility] [id number] Capillary blood glucose pauline urement by glucometer (mass/volume)Ordered By: Jerry Sarmiento on 04-01-2025 Glucose [Mass/Vol] 116 mg/dL Normal [facility] Comment on above: Random Glucose Refer ence Range is dependent on time and content of last meal. Glucose of more than 200 mg/dL in a nonstressed, ambulatory subject supports the diagnosis of Diabetes Mellitus. Result Comment: Isabel om Glucose Reference Range is dependent on time and content of last meal. Glucose of more than 200 mg/dL in a nonstressed, ambulatory subject supports the diagnosis of Diabetes Mellitus. Performed By: #### G LULS ####Point of Care testing, Carbon dioxide, total [Moles /volume] in Serum or PlasmaOrdered By: Kiley Dale on 04-01-2025 CO2 [Moles/Vol] 26.3 mmol/L Normal 21.0-31.0 [facility] Comment on above: Performed By: #### C BC, MG, BMP, HCGQUAL, HS TROP, BNP ####[place] [address] [address] Chloride [Moles/volume] in S claudia or PlasmaOrdered By: Kiley Dale on 04-01-2025 Chloride [Moles/Vol] 101 mmol/L Normal 98-107 [facility] Comment on above: Performed By: #### C BC, MG, BMP, HCGQUAL, HS TROP, BNP ####[address] Choriogonadotropin.beta subu nit [Units/volume] in Serum or PlasmaOrdered By: Kiley Dale on 04-01-2025 HCG.beta subunit Qn Negative [facility] Color of Urine by AutoOrdere d By: Kiley Dale on 04-01-2025 Color (U) Light-yellow Normal Yellow [facility] Comment on above: Order Comment: Name Collection Type:: Clean-Voided Midstream Performed By: #### C UU, ADDONUAPLUS ####[address] Complete Blood Count Auto Di ffon 04-01-2025 Mean Corpuscular HGB Conc 35.1 g/dL High 32.0-35.0 [facility] Comment on above: Performed By: #### C BC, MG, BMP, HCGQUAL, HS TROP, BNP ####[address] Monocytes/100 WBC (Bld) 19.42 % Normal 0.00-20.00 [facility] Comment on above: Performed By: #### C BC, MG, BMP, HCGQUAL, HS TROP, BNP ####[address] NRBC% 0.0 /100{WBC} Normal 0-0.5 [facility] Comment on above: Performed By: #### C BC, MG, BMP, HCGQUAL, HS TROP, BNP ####[address] White Blood Count 10.6 [CFU]/mL Normal 3.8-11.6 [facility] Comment on above: Performed By: #### C BC, MG, BMP, HCGQUAL, HS TROP, BNP ####[place] [id number] [facility] Creatinine [Mass/volume] in Serum or PlasmaOrdered By: Kiley Dale on 04-01-2025 Creatinine [Mass/Vol] 0.70 mg/dL Normal 0.60-1.20 [facility] Comment on above: Performed By: #### C BC, MG, BMP, HCGQUAL, HS TROP, BNP ####[address] [address] [facility] Dipstick and Microscopicon 0 04-01-2025 Bacteria,Urine Rare Normal None Seen [facility] Comment on above: Order Comment: Name Collection Type:: Clean-Voided Midstream Performed By: #### C UU, ADDONUAPLUS ####[place] [id number] [facility] Bilirubin,Urine Negative Normal Negative [facility] Comment on above: Order Comment: Name Collection Type:: Clean-Voided Midstream Performed By: #### C UU, ADDONUAPLUS ####[place] [id number] [facility] Glucose Ql (U) Normal Normal Normal [facility] Comment on above: Order Comment: Name Collection Type:: Clean-Voided Midstream Performed By: #### C UU, ADDONUAPLUS ####[address] [address] [facility] Hyaline Casts,Urine None Normal 0-8 [facility] Comment on above: Order Comment: Name Collection Type:: Clean-Voided Midstream Performed By: #### C UU, ADDONUAPLUS ####[place] [id number] [facility] Mucus,Urine Rare Normal [facility] Comment on above: Order Comment: Name Collection Type:: Clean-Voided Midstream Result Comment: PERF ORMED BY: [facility] [address] [place] [address] PATHOLOGIST ELEVATOR DISPATCHER CHEYANNE RAE M.D. Performed By: #### C UU, ADDONUAPLUS ####[place] [id number] [facility] Nitrite,Urine Negative Normal Negative [facility] Comment on above: Order Comment: Name Collection Type:: Clean-Voided Midstream Performed By: #### C UU, ADDONUAPLUS ####[place] [id number] [facility] Occult Blood,Urine Negative Normal Negative [facility] Comment on above: Order Comment: Name Collection Type:: Clean-Voided Midstream Result Comment: PERF ORMED BY: [facility] [address] [place] [address] PATHOLOGIST ELEVATOR DISPATCHER CHEYANNE RAE M.D. Performed By: #### C UU, ADDONUAPLUS ####[place] [id number] [facility] Protein,Urine Negative Normal Negative [facility] Comment on above: Order Comment: Name Collection Type:: Clean-Voided Midstream Performed By: #### C UU, ADDONUAPLUS ####[place] [id number] [facility] RBC,Urine 10-19 Normal 0-4 [facility] Comment on above: Order Comment: Name Collection Type:: Clean-Voided Midstream Performed By: #### C UU, ADDONUAPLUS ####[place] [id number] [facility] Specificy Shiner,Urine 1.019 Normal 1.001-1.03 0 [facility] Comment on above: Order Comment: Name Collection Type:: Clean-Voided Midstream Performed By: #### C UU, ADDONUAPLUS ####[place] [id number] [facility] Squamous Epithelial Cell,Urine 3-4 Normal 0-2 [facility] Comment on above: Order Comment: Name Collection Type:: Clean-Voided Midstream Performed By: #### C UU, ADDONUAPLUS ####[facility] [place] [id number] [facility] Urobilinogen,Urine Normal Normal Normal [facility] Comment on above: Order Comment: Name Collection Type:: Clean-Voided Midstream Performed By: #### C UU, ADDONUAPLUS ####[facility] [place] [address] [facility] WBC CLUMP, Urine Many Normal None Seen [facility] Comment on above: Order Comment: Name Collection Type:: Clean-Voided Midstream Performed By: #### C UU, ADDONUAPLUS ####[place] [address] [place] [id number] [facility] WBC,Urine Innumerable Normal 0-4 [facility] Comment on above: Order Comment: Name Collection Type:: Clean-Voided Midstream Performed By: #### C UU, ADDONUAPLUS ####[place] [id number] [facility] ECG 12 lead ECGon 04-01-2025 ECG 12 lead ECG [facility] Main [place] [address] [place] [address] Electrocardiograph Report Signed Patient: Lisa Mendez MR#: [id number] : 1975 Acct:[id number] Age/Sex: 49 / F ADM Date: 04/01/25 Loc: ER Room: Type: [facility] Attending Dr: Ordering Provider: Kiley Dale MD Date of Service: 04/01/25 ECG/ECG 12 lead ECG: Dizziness Copies to: Test Reason : Blood Pressure : */* mmHG Vent. Rate : 96 BPM Atrial Rate : 96 BPM P-R Int : 170 ms QRS Dur : 86 ms QT Int : 358 ms P-R-T Axes : 55 97 57 degrees QTcB Int : 452 ms Normal sinus rhythm Confirmed by Kiley Dale MD ([id number]) on 04/01/2025 3:53:05 PM Referred By: Electronically Signed By: Kiley Dale MD Transcribed By: MUS Signed By Kiley Dale MD 03/06 03/29 1553 Normal [facility] Eosinophils [#/volume] in Bl ood by Automated countOrdered By: Kiley Dale on 04-01-2025 Eosinophils (Bld) [#/Vol] 0.3 10*3/uL Normal 0.0-0.45 [facility] Comment on above: Performed By: #### C BC, MG, BMP, HCGQUAL, HS TROP, BNP ####[place] [address] [address] Eosinophils/100 leukocytes i n Blood by Automated countOrdered By: Kiley Dale on 04-01-2025 Eosinophils/100 WBC (Bld) 2.4 % Normal . [facility] Comment on above: Performed By: #### C BC, MG, BMP, HCGQUAL, HS TROP, BNP ####[place] [address] [address] Epithelial cells.squamous [# /area] in Urine sediment by Automated countOrdered By: Kiley Dale on 04-01-2025 Epithelial cells.squamous Auto (Urine sed) [#/Area] 3-4 [HPF] High 0-2 [facility] Erythrocyte distribution wid th [Ratio] by Automated countOrdered By: Kiley Dale on 04-01-2025 Erythrocyte distribution width (RBC) [Ratio] 12.8 % Normal 11.9-15.3 [facility] Comment on above: Performed By: #### C BC, MG, BMP, HCGQUAL, HS TROP, BNP ####[address] Erythrocytes [#/area] in Uri ne sediment by Automated countOrdered By: Kiley Dale on 04-01-2025 RBC Auto (Urine sed) [#/Area] 10-19 [HPF] High 0-4 [facility] Erythrocytes [#/volume] in B lood by Automated countOrdered By: Kiley Dale on 04-01-2025 RBC (Bld) [#/Vol] 4.40 10*6/uL Normal 3.60-5.00 [facility] Comment on above: Performed By: #### C BC, MG, BMP, HCGQUAL, HS TROP, BNP ####[place] [address] [place] [address] [facility] Glomerular filtration rate [ Volume Rate/Area] in Serum, Plasma or Blood by CreatinineOrdered By: Kiley Dale on 04-01-2025 Glomerular filtration rate [Volume Rate/Area] in Serum, Plasma or Blood by Creatinine > 60.0 mL/Min [facility] Glucose Poct Glucometerson 0 04-01-2025 Commemt1 Glu2: Cleaned Meter Normal [facility] Comment on above: Result Comment: PERF ORMED BY: [facility] [address] [place] [address] PATHOLOGIST ELEVATOR DISPATCHER CHEYANNE RAE M.D. Performed By: #### G LULS ####Point of Care testing, Glucose [Mass/volume] in Ser um or PlasmaOrdered By: Kiley Dale on 04-01-2025 Glucose [Mass/Vol] 154 mg/dL High 70-100 [facility] Comment on above: ADA recommended refe rence rangeRandom Glucose Reference Range is dependent on time and content of last meal. Glucose of more than 200 mg/dL in a nonstressed, ambulatory subject supports the diagnosis of Diabetes Mellitus. Result Comment: Isabel om Glucose Reference Range is dependent on time and content of last meal. Glucose of more than 200 mg/dL in a nonstressed, ambulatory subject supports the diagnosis of Diabetes Mellitus. ADA recommended reference range Performed By: #### C BC, MG, BMP, HCGQUAL, HS TROP, BNP ####[place] [address] [place] [id number] [facility] Glucose [Mass/volume] in Uri ne by Test stripOrdered By: Kiley Dale on 04-01-2025 Glucose Test strip (U) [Mass/Vol] Normal mg/dL Normal [facility] HCG,Qualitative Serumon 03-06 HCG,Qualitative Serum Negative Normal [facility] Comment on above: Result Comment: PERF ORMED BY: [facility] [address] [place] [address] PATHOLOGIST ELEVATOR DISPATCHER CHEYANNE RAE M.D. Performed By: #### C BC, MG, BMP, HCGQUAL, HS TROP, BNP ####[facility] [address] Hematocrit [Volume Fraction] of Blood by Automated countOrdered By: Kiley Dale on 04-01-2025 Hematocrit (Bld) [Volume fraction] 35.6 % Normal 34.0-46.4 [facility] Comment on above: Performed By: #### C BC, MG, BMP, HCGQUAL, HS TROP, BNP ####[address] Hemoglobin Test strip Ql (U) Ordered By: Kiley Dale on 04-01-2025 Hemoglobin Ql (U) Negative Negative [facility] Hemoglobin [Mass/volume] in BloodOrdered By: Kiley Dale on 04-01-2025 Hemoglobin (Bld) [Mass/Vol] 12.5 g/dL Normal 11.8-15.4 [facility] Comment on above: Performed By: #### C BC, MG, BMP, HCGQUAL, HS TROP, BNP ####[address] Hyaline casts [#/area] in Ur ine sediment by Automated countOrdered By: Kiley Dale on 04-01-2025 Hyaline casts Auto (Urine sed) [#/Area] None [LPF] 0-8 [facility] Ketones [Presence] in Urine by Test stripOrdered By: Kiley Dale on 04-01-2025 Ketones Ql (U) Negative Normal Negative [facility] Comment on above: Order Comment: Name Collection Type:: Clean-Voided Midstream Performed By: #### C UU, ADDONUAPLUS ####[address] Leukocyte clumps [Presence] in Urine by AutomatedOrdered By: Kiley Dale on 04-01-2025 Leukocyte clumps Auto Ql (U) Many [LPF] High None Seen [facility] Leukocyte esterase [Presence ] in Urine by Test stripOrdered By: Kiley Dale on 04-01-2025 Leukocyte esterase Test strip Ql (U) 4+ Normal Negative [facility] Comment on above: Order Comment: Name Collection Type:: Clean-Voided Midstream Performed By: #### C UU, ADDONUAPLUS ####[place] [address] [place] [id number] [facility] Leukocytes [#/area] in Urine sediment by Automated countOrdered By: Kiley Dale on 04-01-2025 WBC Auto (Urine sed) [#/Area] Innumerable [HPF] High 0-4 [facility] Leukocytes [#/volume] correc cristian for nucleated erythrocytes in Blood by Automated counOrdered By: Kiley Dale on 04-01-2025 WBC corrected for nucl RBC Auto (Bld) [#/Vol] 10.6 10*3/uL 3.8-11.6 [facility] Leukocytes [#/volume] in Blo od by Automated countOrdered By: Kiley Dale on 04-01-2025 WBC (Bld) [#/Vol] 10.6 10*3/uL Normal 3.8-11.6 [facility] Comment on above: Performed By: #### C BC, MG, BMP, HCGQUAL, HS TROP, BNP ####[place] [address] [place] Lymphocytes [#/volume] in Bl ood by Automated countOrdered By: Kiley Dale on 04-01-2025 Lymphocytes (Bld) [#/Vol] 2.3 10*3/uL Normal 1.00-4.8 [facility] Comment on above: Performed By: #### C BC, MG, BMP, HCGQUAL, HS TROP, BNP ####[place] [id number] [place] Lymphocytes/100 leukocytes i n Blood by Automated countOrdered By: Kiley Dale on 04-01-2025 Lymphocytes/100 WBC (Bld) 21.4 % Normal . [facility] Comment on above: Performed By: #### C BC, MG, BMP, HCGQUAL, HS TROP, BNP ####[place] [id number] [place] MCH [Entitic mass] by Automa cristian countOrdered By: Kiley Dale on 04-01-2025 MCH (RBC) [Entitic mass] 28.4 pg Normal 24.7-34.3 [facility] Comment on above: Performed By: #### C BC, MG, BMP, HCGQUAL, HS TROP, BNP ####[facility] MCHC Auto (RBC) [Mass/Vol]Or dered By: Kiley Dale on 04-01-2025 MCHC (RBC) [Mass/Vol] 35.1 g/dL High 32.0-35.0 [facility] MCV [Entitic volume] by Auto mated countOrdered By: Kiley Dale on 04-01-2025 MCV (RBC) [Entitic vol] 80.9 fL Normal 80-100 [facility] Comment on above: Performed By: #### C BC, MG, BMP, HCGQUAL, HS TROP, BNP ####[facility] MR head/brain wo conon 04-01 MR head/brain wo con [facility] [address] MRI Report Signed Patient: Lisa Mendez MR#: [id number] : 1975 Acct:[id number] Age/Sex: 49 / F ADM Date: 04/01/25 Loc: Room: [address] [place] [address] Type: ADM INOo Attending Dr: Jerry Sarmiento DO Copies to: Jerry Sarmiento DO Ordering Provider: Jerry Sarmiento DO Date of Service: 04/01/25 MR/MR head/brain wo con: vertigo MR head/brain wo con 04/01/2025 9:42 PM SIGN AND SYMPTOMS: Dizziness, lightheadedness PROTOCOL: Multiplanar multisequence MR images of the brain without IV contrast COMPARISON: 04/01/2025 FINDINGS: Extra axial spaces: Age appropriate. Hemorrhage: None. Ventricular system: Within normal limits. Basal cisterns: Within normal limits and not effaced. Cerebral parenchyma: Normal in signal. Midline shift: None.. Cerebellum: Within normal limits. Brainstem: Within normal limits. OTHER: Calvarium: Normal marrow signal. Vascular system: Satisfactory flow voids within the anterior and posterior circulation. Visualized Paranasal sinuses: Within normal limits. Visualized Orbits: Within normal limits. Visualized upper cervical spine: Within normal limits. Sella and skull base: Within normal limits. MR/MR head/brain wo con IMPRESSION: No acute intracranial pathology. Impression dictated by: Mode Handy M.D. 04/01/2025 11:26 PM Dictation Location: [place] [address] Transcribed By: HARLAN 04/01/252325 Dictated By: Mode Handy II, MD 04/01/252316 Signed By: 04/01/252325 Normal [facility] Magnesium [Mass/volume] in S claudia or PlasmaOrdered By: Kiley Dale on 04-01-2025 Magnesium [Mass/Vol] 1.7 mg/dL Low 1.9-2.7 [facility] Comment on above: Performed By: #### C BC, MG, BMP, HCGQUAL, HS TROP, BNP ####[facility] [id number] Magnetic resonance imaging r eportOrdered By: Mode Handy on 04-01-2025 Study report [facility] Main [place] [address] [place] [address] MRI Report Signed Patient: Lisa Mendez MR#: [id number] : 1975 Acct:[id number] Age/Sex: 49 / F ADM Date: 5 Loc: 3T Room: [address] [place] [address] Type: ADM INOo Attending Dr: Jerry Sarmiento DO Copies to: Jerry Sarmiento DO~ Ordering Provider: Jerry Sarmiento DO Date of Service: 04/01/25 MR/MR head/brain wo con: vertigo MR head/brain wo con 04/01/2025 9:42 PM SIGN AND SYMPTOMS: Dizziness, lightheadedness PROTOCOL: Multiplanar multisequence MR images of the brain without IV contrast COMPARISON: 04/01/2025 FINDINGS: Extra axial spaces: Age appropriate. Hemorrhage: None. Ventricular system: Within normal limits. Basal cisterns: Within normal limits and not effaced. Cerebral parenchyma: Normal in signal. Midline shift: None.. Cerebellum: Within normal limits. Brainstem: Within normal limits. OTHER: Calvarium: Normal marrow signal. Vascular system: Satisfactory flow voids within the anterior and posterior circulation. Visualized Paranasal sinuses: Within normal limits. Visualized Orbits: Within normal limits. Visualized upper cervical spine: Within normal limits. Sella and skull base: Within normal limits. MR/MR head/brain wo con IMPRESSION: No acute intracranial pathology. Impression dictated by: Mode Handy M.D. 04/01/2025 11:26 PM Dictation Location: [facility]- Transcribed By: HARLAN 04/01/252325 Dictated By: Mode Handy II, MD 04/01/252316 Signed By: 04/01/252325 [facility] Work Phone: Monocyte distribution width [Entitic volume] in Blood by AutomatedOrdered By: Kiley Dale on 04-01-2025 Monocyte distribution width Auto (Bld) [Entitic vol] 19.42 % 0.00-20.00 [facility] Monocytes [#/volume] in Bloo d by Automated countOrdered By: Kiley Dale on 04-01-2025 Monocytes (Bld) [#/Vol] 0.7 10*3/uL Normal 0.0-0.8 [facility] Comment on above: Performed By: #### C BC, MG, BMP, HCGQUAL, HS TROP, BNP ####[facility] [id number] Monocytes/100 leukocytes in Blood by Automated countOrdered By: Kiley Dale on 04-01-2025 Monocytes/100 WBC (Bld) 6.3 % Normal . [facility] Comment on above: Performed By: #### C BC, MG, BMP, HCGQUAL, HS TROP, BNP ####[facility] [id number] [place] [id number] [place] Mucus [Presence] in Urine by AutomatedOrdered By: Kiley Dale on 04-01-2025 Mucus Auto Ql (U) Rare [LPF] [facility] Neutrophils [#/volume] in Bl ood by Automated countOrdered By: Kiley Dale on 04-01-2025 Neutrophils (Bld) [#/Vol] 7.3 10*3/uL Normal 1.8-7.7 [facility] Comment on above: Performed By: #### C BC, MG, BMP, HCGQUAL, HS TROP, BNP ####[facility] [id number] [place] [id number] [facility] Neutrophils/100 leukocytes i n Blood by Automated countOrdered By: Kiley Dale on 04-01-2025 Neutrophils/100 WBC (Bld) 69.3 % Normal . [facility] Comment on above: Performed By: #### C BC, MG, BMP, HCGQUAL, HS TROP, BNP ####[facility] Nitrite Test strip Ql (U)Ord ered By: Kiley Dale on 04-01-2025 Nitrite Ql (U) Negative Negative [facility] No Panel InformationOrdered By: Jerry Sarmiento on 04-01-2025 Bedside Glucose Comment Glu2: cleaned meter [facility] No Panel InformationOrdered By: Kiley Dale on 04-01-2025 Pharmacy Creatinine Clearance (Chem 115.78 [facility] Nucleated erythrocytes [Pres ence] in Blood by Automated countOrdered By: Kiley Dale on 04-01-2025 Nucleated RBC Auto Ql (Bld) 0.0 /100{WBC} 0-0.5 [facility] Platelet mean volume [Entiti c volume] in Blood by Automated countOrdered By: Kiley Dale on 04-01-2025 Platelet mean volume (Bld) [Entitic vol] 7.1 fL Normal 6.3-10.7 [facility] Comment on above: Performed By: #### C BC, MG, BMP, HCGQUAL, HS TROP, BNP ####[facility] [place] [id number] [place] Platelets [#/volume] in Bloo d by Automated countOrdered By: Kiley Dale on 04-01-2025 Platelets (Bld) [#/Vol] 255 10*3/uL Normal 150-450 [facility] Comment on above: Performed By: #### C BC, MG, BMP, HCGQUAL, HS TROP, BNP ####[place] [address] [place] [address] [facility] Potassium [Moles/volume] in Serum or PlasmaOrdered By: Kiley Dale on 04-01-2025 Potassium [Moles/Vol] 4.0 mmol/L Normal 3.5-5.1 [facility] Comment on above: Performed By: #### C BC, MG, BMP, HCGQUAL, HS TROP, BNP ####[place] [address] [place] [id number] [facility] Protein Test strip (U) [Mass /Vol]Ordered By: Kiley Dale on 04-01-2025 Protein (U) [Mass/Vol] Negative Negative [facility] Serum or plasma anion gap de terminationOrdered By: Kiley Dale on 04-01-2025 Anion gap [Moles/Vol] 12.7 mmol/L Normal 6.0-15.0 [facility] Comment on above: Performed By: #### C BC, MG, BMP, HCGQUAL, HS TROP, BNP ####[place] [id number] [facility] Sodium [Moles/volume] in Ser um or PlasmaOrdered By: Kiley Dale on 04-01-2025 Sodium [Moles/Vol] 136 mmol/L Normal 136-145 [facility] Comment on above: Performed By: #### C BC, MG, BMP, HCGQUAL, HS TROP, BNP ####[place] [id number] [facility] Specific gravity Test strip (U) [Rel density]Ordered By: Kiley Dale on 04-01-2025 Specific gravity (U) [Rel density] 1.019 1.001-1.03 0 [facility] Troponin I High Sensitivityo n 04-01-2025 Troponin I High Sensitivity <3 Normal 0-15 [facility] Comment on above: Result Comment: The Troponin units of report have been changed to meet the Chest Pain Accreditation requirement, element EC5.M1l2. Troponin units are changed from pg/ml to ng/L. Also, the decimal is removed and results are in whole numbers. PERFORMED BY: [place] [address] PATHOLOGIST ELEVATOR DISPATCHER CHEYANNE RAE M.D. Performed By: #### H S TROP ####[place] [address] [place] [id number] [facility] Troponin I High Sensitivity <3 Normal 0-15 [facility] Comment on above: Result Comment: The Troponin units of report have been changed to meet the Chest Pain Accreditation requirement, element EC5.M1l2. Troponin units are changed from pg/ml to ng/L. Also, the decimal is removed and results are in whole numbers. PERFORMED BY: [facility] [address] [place] [address] PATHOLOGIST ELEVATOR DISPATCHER CHEYANNE RAE M.D. Performed By: #### C BC, MG, BMP, HCGQUAL, HS TROP, BNP ####[place] [id number] [facility] Troponin I.cardiac [Mass/vol ume] in Serum or Plasma by Detection limit <= 0.01 ng/mLOrdered By: Kiley Dale on 04-01-2025 Troponin I.cardiac DL <= 0.01 ng/mL [Mass/Vol] < 3 ng/L 0-15 [facility] Comment on above: The Troponin units o f report have been changed to meet the Chest Pain Accreditation requirement, element EC5.M1l2. Troponin units are changed from pg/ml to ng/L. Also, the decimal is removed and results are in whole numbers. Urea nitrogen [Mass/volume] in Serum or PlasmaOrdered By: Kiley Dale on 04-01-2025 Urea nitrogen [Mass/Vol] 14 mg/dL Normal 7-25 [facility] Comment on above: Performed By: #### C BC, MG, BMP, HCGQUAL, HS TROP, BNP ####[place] [address] [place] [id number] [facility] Urine Cultureon 04-01-2025 Bacteria identified Cx Nom (U) ORGANISM: Escherichia coli (O:ESCCOL) [place] Count >100,000 Aerobic SMILEY Charge ([id number]) SUSCEPTIBILITY ORGANISM: O:ESCCOL ANTIBIOTIC INTERPRETATION SMILEY Amikacin S <16 Amoxacillin/K Clavulanate S <8 Ampicillin S <8 Ampicillin/Sulbactam S <4 Aztreonam S <4 Cefazolin S <2 Cefepime S <2 Ceftazidime S <1 Ceftazidime/Avibactam S <4 Ceftolozane/Tazobactam S <2 Ceftriaxone S <1 Cefuroxime S <4 Ciprofloxacin S <0.25 Ertapenem S <0.5 Gentamicin S <2 Levofloxacin S <0.5 Meropenem S <1 Meropenem/Vaborbactam S <2 Nitrofurantoin S <32 Piperacillin/Tazobactam S <8 Tetracycline S <4 Tigecycline S <2 Tobramycin S <2 Trimethoprim/Sulfamethoxa zole S <0.5 S = SUSCEPTIBLE I = INTERMEDIATE R = RESISTANT BLANK = DATA NOT AVAILABLE, OR DRUG NOT ADVISABLE OR TESTED R* = RESISTANCE DUE TO EXTENDED SPECTRUM BETA-LACTAMASES ESBL = EXTENDED SPECTRUM BETA-LACTAMASE TFG = THYMIDINE-DEPENDENT STRAIN SUZIE = BETA-LACTAMASE POSITIVE IB = INDUCIBLE BETA-LACTAMASE. APPEARS IN PLACE OF 'S' WITH SPECIES KNOWN TO POSSESS INDUCIBLE BETA-LACTAMASES. POTENTIALLY THEY MAY BECOME RESISTANT TO ALL B-LACTAM DRUGS. PERFORMED BY: [place] [address] PATHOLOGIST ELEVATOR DISPATCHER CHEYANNE RAE M.D. Normal [facility] Comment on above: Performed By: #### C UU, ADDALLANUAPLUS ####[facility] [id number] [id number] [place] Urobilinogen Test strip (U) [Mass/Vol]Ordered By: Kiley Dale on 04-01-2025 Urobilinogen (U) [Mass/Vol] Normal mg/dL Normal [facility] X-ray reportOrdered By: Ronaldo Gipson on 04-01-2025 Study report [facility] [address] [place] [address] [place] [address] XRay Report Signed Patient: Lisa Mendez MR#: [id number] : 1975 Acct:[id number] Age/Sex: 49 / F ADM Date: 5 Loc: ER Room: Type: [facility] ER Attending Dr: Copies to: Kiley Dale MD~ Ordering Provider: Kiley Dale MD Date of Service: 04/01/25 XR/XR chest 2V*: Dizziness Chest 2 views CLINICAL HISTORY: Dizziness, multiple falls. COMPARISON: None FINDINGS: Heart normal in size. No consolidation pneumothorax pleural effusion or free air. XR/XR chest 2V* IMPRESSION: NO ACUTE CARDIOPULMONARY ABNORMALITY. Impression dictated by: Erik Gipson Jr., D.O. 04/01/2025 1:30 PM Dictation Location: RADIO-PC-22 Transcribed By: HARLAN 04/01/25 1330 Dictated By: Erik Gipson Jr, DO 04/01/25 1329 Signed By: 04/01/25 1330 [facility] XR chest 2V*on 04-01-2025 XR chest 2V* [facility] [address] [place] [address] [place] [address] XRay Report Signed Patient: Lisa Mendez MR#: [id number] : 1975 Acct:[id number] Age/Sex: 49 / F ADM Date: 04/01/25 Loc: ER Room: Type: [facility] ER Attending Dr: Copies to: Kiley Dale MD Ordering Provider: Kiley Dale MD Date of Service: 04/01/25 XR/XR chest 2V*: Dizziness Chest 2 views CLINICAL HISTORY: Dizziness, multiple falls. COMPARISON: None FINDINGS: Heart normal in size. No consolidation pneumothorax pleural effusion or free air. XR/XR chest 2V* IMPRESSION: NO ACUTE CARDIOPULMONARY ABNORMALITY. Impression dictated by: Abdullahi Gracia Jr..OJeyson 04/01/2025 1:30 PM Dictation Location: RADIO-PC-22 Transcribed By: HARLAN 04/01/25 1330 Dictated By: Erik Gipson Jr, DO 04/01/25 1329 Signed By: 04/01/25 1330 Normal [facility] pH of Urine by Test stripOrd ered By: Kiley Dale on 04-01-2025 pH (U) 5.5 [pH] Normal 5.0-9.0 [facility] Comment on above: Order Comment: Name Collection Type:: Clean-Voided Midstream Performed By: #### C UU, ADDALLANUAPLUS ####[facility] [id number] [place] [address] [facility] 03-30-2025 CNPN Telephone (LOORRM) ----- LISA MENDEZ ([id number]) 1975 F Date Time Provider Department 03/30/25 KWAME MCNEIL During your visit today, we recorded the following information about you: Lesa Chino 03/30/2025 3:03 PM Signed Andrae calling from [facility] to request Operative notes from the 01/07/[address] Mcneil. Please fax notes to number below and call Andrae when this has been complete or for any further questions. [phone] Mode Mcneil, AMAJRIT 03/30/2025 3:58 PM Signed Faxed requested paperwork to number provided ([phone]). Called and spoke with Valarie and updated her that paperwork was faxed. Allergies As of Date: 03/30/2025 Noted Allergy Reaction ROPINIROLE 03/13/2019 4 - Hives TOPIRAMATE 11/11/2013 4 - Hives 2 - Rash 14 - Other: See Comments ALOE VERA 04/02/2012 14 - Other: See Comments BACLOFEN 01/01/2020 14 - Other: See Comments 7 - Swelling CEPHALEXIN 04/02/2012 8 - GI Upset 11 - Vomiting CIPROFLOXACIN 04/02/2012 14 - Other: See Comments CYCLOBENZAPRINE 11/11/2013 4 - Hives 16 - Unknown DICLOFENAC 04/02/2012 14 - Other: See Comments 16 - Unknown Comments: Stomach pain and cramping DULOXETINE 08/27/2024 14 - Other: See Comments Comments: Fatigue GABAPENTIN 04/02/2012 4 - Hives 16 - Unknown 14 - Other: See Comments MENTHOL 04/02/2012 14 - Other: See Comments METFORMIN 11/11/2013 4 - Hives MORPHINE 08/27/2023 8 - GI Upset NAPROXEN 04/02/2012 2 - Rash 16 - Unknown NSAIDS (NON-STEROIDAL ANTI-INFLAM*01/04/2019 4 - Hives 2 - Rash 14 - Other: See Comments OXYCODONE 05/25/2024 8 - GI Upset PENICILLINS 11/18/2024 2 - Rash SUMATRIPTAN 09/04/2021 8 - GI Upset 2 - Rash TRAMADOL 11/18/2024 8 - GI Upset VITAMIN E 04/02/2012 2 - Rash 16 - Unknown 14 - Other: See Comments AZITHROMYCIN 04/02/2012 9 - Itching 2 - Rash ZONISAMIDE 12/10/2022 2 - Rash Date Reviewed: 02/18/2025 Reviewed by: eNly Kwan OCCA - Fully Assessed Prescriptions as of 03/30/2025 - meloxicam (MOBIC) 15 mg tablet Take 1 tablet by mouth once daily. with food - clindamycin (CLEOCIN) 150 mg capsule Take 4 caps 1 hour prior to dentist - SYMBICORT 160-4.5 mcg/actuation inhaler INHALE 2 PUFFS BY MOUTH 2 TIMES A DAY FOR 30 DAYS - carBAMazepine ER (CARBATROL) 300 mg 12 hr capsule 1 capsule. - CAPLYTA 21 mg capsule Take 1 capsule by mouth once daily. - pregabalin (LYRICA) 150 mg capsule Take 150 mg by mouth once daily. - QUEtiapine (SEROQUEL) 25 mg tablet Take 25 mg by mouth daily at bedtime. - ipratropium-albuterol (DUONEB) 0.5 mg-3 mg(2.5 mg base)/3 mL nebu Inhale 3 mL as instructed every 6 hours as needed for wheezing/shortness of breath. - albuterol (PROVENTIL) 2.5 mg /3 mL (0.083 %) nebulizer solution Use 2.5 mg via nebulizer every 6 hours as needed for wheezing/shortness of breath. - VENTOLIN HFA 90 mcg/actuation inhaler Inhale 1 puff as instructed every 6 hours as needed. - nabumetone (RELAFEN) 500 mg tablet 500 mg. - pramipexole (MIRAPEX) 0.125 mg tablet TAKE [...] mg subcutaneously one time a week. - carbidopa-levodopa (SINEMET 10-100) 10-100 mg per tablet 1 tablet daily at bedtime. Problem List As Of Date 03/30/2025 Noted Resolved NO SHOW [788118] 12/09/2014 Right ankle pain [M25.571] 06/03/2015 Pain in right foot [M79.671] 06/03/2015 Lisfranc dislocation [S93.326A] 06/03/2015 DJD (degenerative joint disease), ankle and mae*06/23/2015 PTTD (posterior tibial tendon dysfunction) [M76*06/23/2015 Morbid obesity (HCC) [E66.01] 06/23/2015 Dry eye syndrome of bilateral lacrimal glands [*12/23/2023 Type 2 diabetes mellitus without retinopathy (H*12/23/2023 Bilateral presbyopia [H52.4] 12/23/2023 S/P lumpectomy, left breast [Z98.890] 08/31/2024 De Quervain's tenosynovitis, left [M65.4] 08/31/2024 Primary osteoarthritis of first carpometacarpal* Asthma (HCC) [J45.909] 11/17/2024 Sleep apnea [G47.30] 11/17/2024 Current smoker [F17.200] 11/17/2024 Kidney stones [N20.0] 11/17/2024 Migraine [G43.909] 01/11/2024 Bipolar 1 disorder (HCC) [F31.9] 11/18/2024 Restless legs [G25.81] 11/18/2024 Mass of breast [N63.0] 11/18/2024 Posttraumatic stress disorder [F43.10] 11/18/2024 Marijuana use [F12.90] 12/16/2024 Obesity, Class III, BMI >= 40 [E66.813] 01/07/2025 Chronic pain of left thumb [M79.645, G89.29] 02/18/2025 Encounter S (more content not included)... [facility] (LO[facility]R) ----- ILSA MENDEZ ([id number]) 1975 F Date Time Provider Department 03/03/25 TASHI OSMAN During your visit today, we recorded the following information about you: Effie Abbott 03/03/2025 12:[address] Delroy Merino's office, diesel engine inspector in [place] is calling Tashi Osman DPM today. They are her regular diesel engine inspector, asking if office notes from yesterday's' visit with Dr Osman can be faxed to them at [phone]. If any questions, please reach out to them at [phone]. Patient has been identified by name and birthdate. Was an appointment scheduled: Yes: Date/Time: 03/31/[address] Clarke Closing statement: Results or non-symptom based questions: Thank you for calling [facility], your call will be returned within the next business day. Linda Aparicio 03/05/2025 10:[address] Mckay office calling again asking for chart notes from 03/02, please. Thanks. Elinor Aguirre CT 03/24/2025 4:40 PM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 POTENTIALLY THEY MAY BECOME RESISTANT TO ALL B-LACTAM DRUGS. PERFORMED BY: [place] [address] [place] [address] PATHOLOGIST ELEVATOR DISPATCHER CHEYANNE RAE M.D. Normal [facility] Comment on above: Performed By: #### C UU ####[facility] [address] [place] [address] [facility] Urine cultureOrdered By: Chloe Jung on 02-19-2025 Bacteria identified Cx Nom (U) Escherichia coli Abnormal [facility] [id number] 02-18-2025 [id number] HNO ID: [id number] Author: JANINE STOCK OTR/Alina Service: ? Author Type: Occupational Therapist Type: [id number] Filed: 02/18/2025 10:56 Note Text: [facility] Therapy Occupational Therapy Plan of Care Certification Patient Name: Lisa Mendez : 1975 [facility] #: [id number] Date: 02/18/2025 To: No ref. provider found From Therapist: KURT Rudolph/Alina RE: Patient Certification/ Recertification Your review, approval and electronic signature are required in order to comply with Payor: PENDING SALE TO [facility] MEDICAID / Plan: [employer] [employer] MEDICA[place] / Product Type: Medicaid / regulations. The identified Occupational Therapy PLAN OF CARE for the patient is as follows: M79.645, G89.29 Chronic pain of left thumb (primary encounter diagnosis) PLAN OF CARE: Assessment: Lisa Mendez presents with diagnosis of Left thumb revision carpometacarpal arthroplasty with slip of abductor pollicis longus tendon and internal brace with suture anchors; left first dorsal compartment release; extensor pollicis brevis transfer and thumb metacarpal phalangeal pinning that interferes with Functional Limitation Comments, pinching, gripping, twisting, pulling, pushing, carrying, lifting (use of lef thand.) . The patient presents with impairments in ADL's, overall function, range of motion, and soft tissue healing. Patient did not complete the PROMIS? (Patient Reported Outcome MeasuresInformation System). Prognosis for therapy is Good due to: good support system/ coping skills . The patient will benefit from skilled therapy services to meet the goals established for this plan of care as noted below. Goals for Episode of Care: established 02/18/25 Patient will report a good understanding of diagnosis and OT recommendations for progression of program. Patient will demonstrate independence with ongoing home recommendations/exercise program throughout therapy plan of care. Patient will report a decrease in pain in Left wrist , hand, and thumb to 1/10 with basic self-care tasks, home management tasks, light functional tasks, and prior functional tasks. Patient will increase AROM of Left wrist , hand, and thumb in order to be able to improve function for basic self-care tasks, home management tasks, and prior functional tasks. Patient will independently demonstrate correct application of CUSTOM orthosis and verbalize understanding of proper wear/care. Patient will report a good understanding of edema control, scar / wound management throughout therapy plan of care to promote non-adherent / non-tender soft tissue. Patient Goals: improve present function Time Frame for Goals and Treatment : 04/16/25 Planned Interventions, Frequency, and Duration: Current Frequency: 1x/week Duration: 2 weeks Total Number of Visits Planned: (then every other week for 6) Planned Treatment Interventions: Therapeutic exercise ([id number]), Self-shelter management (66667), Custom orthosis fabrication PLAN FOR NEXT VISIT:assess fit of brace, check rom , determine frequency of visits since pt lives in [facility] Patient demonstrates good understanding of plan of care and treatment. The above goals and plan of care were discussed and agreed upon by patient/family. For further details regarding this patient refer to the Occupational Therapy electronically documented visit dated 02/18/2025. Provider Attestation I have reviewed the treatment plan for Lisa Mendez [facility]# [id number] for the period of 02/18/25 -- 04/19/25, established on 02/18/2025. Signature certifies the need for therapy services. Normal [facility] CNCOon 02-18-2025 CNCO Letter Text Normal [facility] CNOVon 02-18-2025 CNOV Office Visit (ORAVON ) ----- LISA MENDEZ ([id number]) 1975 F Date Time Provider Department 02/18/25 8:15 AM KWAME MCNEIL During your visit today, we recorded the following information about you: Kwame Mcneil MD 02/18/2025 9:02 AM Signed OPERATIVE REPORT: PROCEDURE: Left thumb revision carpometacarpal arthroplasty with slip of abductor pollicis longus tendon and internal brace with suture anchors; left first dorsal compartment release; extensor pollicis brevis transfer and thumb metacarpal phalangeal pinning DATE: 01/07/2025 SURGICAL PATHOLOGY: FINAL DIAGNOSIS A. Left thumb, hardware, removal: - Grossly unremarkable metal plates (gross examination only) 6 weeks out. She is doing well. The pain causes some pain. But otherwise she is doing great and feels tremendous difference versus preop. She is happy. PHYSICAL EXAM: The pin is removed without incident. No signs of infection. Sensation intact in the superficial radial distribution. Maintain thumb EPL and FPL. Smooth, stable, painless circumduction of the CMC. No pain at the first dorsal compartment. All incisions well-healed. Able make a full fist. Today's x-rays show maintained suspension of the left thumb metacarpal with no bony abutment. Stable x-rays versus previous. PLAN: Cast will be removed today and pin will be removed. She will see occupational therapy for a removable brace and motion exercises. She will be in this brace at all times except for motion, hygiene, and when just sitting around. I will see her back when she is 3 months out to begin weaning her out of the brace and into normal use. Allergies As of Date: 02/18/2025 Noted Allergy Reaction ROPINIROLE 03/13/2019 4 - Hives TOPIRAMATE 11/11/2013 4 - Hives 2 - Rash 14 - Other: See Comments ALOE VERA 04/02/2012 14 - Other: See Comments BACLOFEN 01/01/2020 14 - Other: See Comments 7 - Swelling CEPHALEXIN 04/02/2012 8 - GI Upset 11 - Vomiting CIPROFLOXACIN 04/02/2012 14 - Other: See Comments CYCLOBENZAPRINE 11/11/2013 4 - Hives 16 - Unknown DICLOFENAC 04/02/2012 14 - Other: See Comments 16 - Unknown Comments: Stomach pain and cramping DULOXETINE 08/27/2024 14 - Other: See Comments Comments: Fatigue GABAPENTIN 04/02/2012 4 - Hives 16 - Unknown 14 - Other: See Comments MENTHOL 04/02/2012 14 - Other: See Comments METFORMIN 11/11/2013 4 - Hives MORPHINE 08/27/2023 8 - GI Upset NAPROXEN 04/02/2012 2 - Rash 16 - Unknown NSAIDS (NON-STEROIDAL ANTI-INFLAM*01/04/2019 4 - Hives 2 - Rash 14 - Other: See Comments OXYCODONE 05/25/2024 8 - GI Upset PENICILLINS 11/18/2024 2 - Rash SUMATRIPTAN 09/04/2021 8 - GI Upset 2 - Rash TRAMADOL 11/18/2024 8 - GI Upset VITAMIN E 04/02/2012 2 - Rash 16 - Unknown 14 - Other: See Comments AZITHROMYCIN 04/02/2012 9 - Itching 2 - Rash ZONISAMIDE 12/10/2022 2 - Rash Date Reviewed: 02/18/2025 Reviewed by: Nely Kwan OCCA - Fully Assessed Reason for Visit: Established Patient [175] Post Op [174] Primary Visit Diagnosis:Postoperative state [Z98.890] Order(s):HYDROcodone-acet aminophen (NORCO) 5-325 mg per tabletTake 1 tablet by mouth every 6 hours as needed for pain for up to 7 days.Disp: 28 tabletRfl: 0 Prescriptions as of 02/18/2025 - HYDROcodone-acetaminophen (NORCO) 5-325 mg per tablet Take 1 tablet by mouth every 6 hours as needed for pain for up to 7 days. - clindamycin (CLEOCIN) 150 mg capsule Take 4 caps 1 hour prior to dentist - SYMBICORT 160-4.5 mcg/actuation inhaler INHALE 2 PUFFS BY MOUTH 2 TIMES A DAY FOR 30 DAYS - carBAMazepine ER (CARBATROL) 300 mg 12 hr capsule 1 capsule. - CAPLYTA 21 mg capsule Take 1 capsule by mouth once daily. - pregabalin (LYRICA) 150 mg capsule Take 150 mg by mouth once daily. - QUEtiapine (SEROQUEL) 25 mg tablet Take 25 mg by mouth daily at bedtime. - ipratropium-albuterol (DUONEB) 0.5 mg-3 mg(2.5 mg base)/3 mL nebu Inhale 3 mL as instructed every 6 hours as needed for wheezing/shortness of breath. - albuterol (PROVENTIL) 2.5 mg /3 mL (0.083 %) nebulizer solution Use 2.5 mg via nebulizer every 6 hours as needed for wheezing/shortness of breath. - VENTOLIN HFA 90 mcg/actuation inhaler Inhale 1 puff as instructed every 6 hours as needed. - nabumetone (RELAFEN) 500 mg tablet 500 mg. - pramipexole (MIRAPEX) 0.125 mg tablet TAKE [...] mg subcutaneously one time a week. - carbidopa-levodopa (SINEMET (more content not included)... Normal [facility] CNOV Office Visit (ORAVON ) ----- LISA MENDEZ ([id number]) 1975 F Date Time Provider Department 02/18/25 8:00 AM CAST TECH NORAH HERNANDEZ During your visit today, we recorded the following information about you: Kenny Sung OCCA 02/18/2025 9:36 AM Signed PT ASSESSMENT - CASTING ROOM Lisa presents for cast removal and pin removal. Pin removed and examined by Dr. Mcneil. ELIAZAR Bennett Allergies As of Date: 02/18/2025 Noted Allergy Reaction ROPINIROLE 03/13/2019 4 - Hives TOPIRAMATE 11/11/2013 4 - Hives 2 - Rash 14 - Other: See Comments ALOE VERA 04/02/2012 14 - Other: See Comments BACLOFEN 01/01/2020 14 - Other: See Comments 7 - Swelling CEPHALEXIN 04/02/2012 8 - GI Upset 11 - Vomiting CIPROFLOXACIN 04/02/2012 14 - Other: See Comments CYCLOBENZAPRINE 11/11/2013 4 - Hives 16 - Unknown DICLOFENAC 04/02/2012 14 - Other: See Comments 16 - Unknown Comments: Stomach pain and cramping DULOXETINE 08/27/2024 14 - Other: See Comments Comments: Fatigue GABAPENTIN 04/02/2012 4 - Hives 16 - Unknown 14 - Other: See Comments MENTHOL 04/02/2012 14 - Other: See Comments METFORMIN 11/11/2013 4 - Hives MORPHINE 08/27/2023 8 - GI Upset NAPROXEN 04/02/2012 2 - Rash 16 - Unknown NSAIDS (NON-STEROIDAL ANTI-INFLAM*01/04/2019 4 - Hives 2 - Rash 14 - Other: See Comments OXYCODONE 05/25/2024 8 - GI Upset PENICILLINS 11/18/2024 2 - Rash SUMATRIPTAN 09/04/2021 8 - GI Upset 2 - Rash TRAMADOL 11/18/2024 8 - GI Upset VITAMIN E 04/02/2012 2 - Rash 16 - Unknown 14 - Other: See Comments AZITHROMYCIN 04/02/2012 9 - Itching 2 - Rash ZONISAMIDE 12/10/2022 2 - Rash Date Reviewed: 02/18/2025 Reviewed by: Nely Kwan OCCA - Fully Assessed Primary Visit Diagnosis:Postoperative state [Z98.890] Prescriptions as of 02/18/2025 - HYDROcodone-acetaminophen (NORCO) 5-325 mg per tablet Take 1 tablet by mouth every 6 hours as needed for pain for up to 7 days. - clindamycin (CLEOCIN) 150 mg capsule Take 4 caps 1 hour prior to dentist - SYMBICORT 160-4.5 mcg/actuation inhaler INHALE 2 PUFFS BY MOUTH 2 TIMES A DAY FOR 30 DAYS - carBAMazepine ER (CARBATROL) 300 mg 12 hr capsule 1 capsule. - CAPLYTA 21 mg capsule Take 1 capsule by mouth once daily. - pregabalin (LYRICA) 150 mg capsule Take 150 mg by mouth once daily. - QUEtiapine (SEROQUEL) 25 mg tablet Take 25 mg by mouth daily at bedtime. - ipratropium-albuterol (DUONEB) 0.5 mg-3 mg(2.5 mg base)/3 mL nebu Inhale 3 mL as instructed every 6 hours as needed for wheezing/shortness of breath. - albuterol (PROVENTIL) 2.5 mg /3 mL (0.083 %) nebulizer solution Use 2.5 mg via nebulizer every 6 hours as needed for wheezing/shortness of breath. - VENTOLIN HFA 90 mcg/actuation inhaler Inhale 1 puff as instructed every 6 hours as needed. - nabumetone (RELAFEN) 500 mg tablet 500 mg. - pramipexole (MIRAPEX) 0.125 mg tablet TAKE [...] mg subcutaneously one time a week. - carbidopa-levodopa (SINEMET 10-100) 10-100 mg per tablet 1 tablet daily at bedtime. Problem List As Of Date 02/18/2025 Noted Resolved NO SHOW [550348] 12/09/2014 Right ankle pain [M25.571] 06/03/2015 Pain in right foot [M79.671] 06/03/2015 Lisfranc dislocation [S93.326A] 06/03/2015 DJD (degenerative joint disease), ankle and mae*06/23/2015 PTTD (posterior tibial tendon dysfunction) [M76*06/23/2015 Morbid obesity (HCC) [E66.01] 06/23/2015 Dry eye syndrome of bilateral lacrimal glands [*12/23/2023 Type 2 diabetes mellitus without retinopathy (H*12/23/2023 Bilateral presbyopia [H52.4] 12/23/2023 S/P lumpectomy, left breast [Z98.890] 08/31/2024 De Quervain's tenosynovitis, left [M65.4] 08/31/2024 Primary osteoarthritis of first carpometacarpal* Asthma (HCC) [J45.909] 11/17/2024 Sleep apnea [G47.30] 11/17/2024 Current smoker [F17.200] 11/17/2024 Kidney stones [N20.0] 11/17/2024 Migraine [G43.909] 01/11/2024 Bipolar 1 disorder (HCC) [F31.9] 11/18/2024 Restless legs [G25.81] 11/18/2024 Mass of breast [N63.0] 11/18/2024 Posttraumatic stress disorder [F43.10] 11/18/2024 Marijuana use [F12.90] 12/16/2024 Obesity, Class III, BMI >= 40 [E66.813] 01/07/2025 Chronic pain of left thumb [M79.645, G89.29] 02/18/2025 Encounter Status:Closed by KENNY SUNG on 02/18/25 [facility] CNTHERAPYon 02-18-2025 CNTHERAPY OT/PT/Speech Visit (ANNETTE) ----- LISA MENDEZ ([id number]) 1975 F Date Time Provider Department 02/18/25 8:45 AM JANINE STOCK Date Time Provider Department Center 02/18/2025 8:45 AM [id number] STOCK Reason for Visit: OT EVAL [768] Primary Visit Diagnosis:Chronic pain of left thumb [M79.645, G89.29] Allergies As of Date: 02/18/2025 Noted Allergy Reaction ROPINIROLE 03/13/2019 4 - Hives TOPIRAMATE 11/11/2013 4 - Hives 2 - Rash 14 - Other: See Comments ALOE VERA 04/02/2012 14 - Other: See Comments BACLOFEN 01/01/2020 14 - Other: See Comments 7 - Swelling CEPHALEXIN 04/02/2012 8 - GI Upset 11 - Vomiting CIPROFLOXACIN 04/02/2012 14 - Other: See Comments CYCLOBENZAPRINE 11/11/2013 4 - Hives 16 - Unknown DICLOFENAC 04/02/2012 14 - Other: See Comments 16 - Unknown Comments: Stomach pain and cramping DULOXETINE 08/27/2024 14 - Other: See Comments Comments: Fatigue GABAPENTIN 04/02/2012 4 - Hives 16 - Unknown 14 - Other: See Comments MENTHOL 04/02/2012 14 - Other: See Comments METFORMIN 11/11/2013 4 - Hives MORPHINE 08/27/2023 8 - GI Upset NAPROXEN 04/02/2012 2 - Rash 16 - Unknown NSAIDS (NON-STEROIDAL ANTI-INFLAM*01/04/2019 4 - Hives 2 - Rash 14 - Other: See Comments OXYCODONE 05/25/2024 8 - GI Upset PENICILLINS 11/18/2024 2 - Rash SUMATRIPTAN 09/04/2021 8 - GI Upset 2 - Rash TRAMADOL 11/18/2024 8 - GI Upset VITAMIN E 04/02/2012 2 - Rash 16 - Unknown 14 - Other: See Comments AZITHROMYCIN 04/02/2012 9 - Itching 2 - Rash ZONISAMIDE 12/10/2022 2 - Rash Date Reviewed: 02/18/2025 Reviewed by: Nely Kwan OCCA - Fully Assessed Prescriptions as of 02/18/2025 - HYDROcodone-acetaminophen (NORCO) 5-325 mg per tablet Take 1 tablet by mouth every 6 hours as needed for pain for up to 7 days. - clindamycin (CLEOCIN) 150 mg capsule Take 4 caps 1 hour prior to dentist - SYMBICORT 160-4.5 mcg/actuation inhaler INHALE 2 PUFFS BY MOUTH 2 TIMES A DAY FOR 30 DAYS - carBAMazepine ER (CARBATROL) 300 mg 12 hr capsule 1 capsule. - CAPLYTA 21 mg capsule Take 1 capsule by mouth once daily. - pregabalin (LYRICA) 150 mg capsule Take 150 mg by mouth once daily. - QUEtiapine (SEROQUEL) 25 mg tablet Take 25 mg by mouth daily at bedtime. - ipratropium-albuterol (DUONEB) 0.5 mg-3 mg(2.5 mg base)/3 mL nebu Inhale 3 mL as instructed every 6 hours as needed for wheezing/shortness of breath. - albuterol (PROVENTIL) 2.5 mg /3 mL (0.083 %) nebulizer solution Use 2.5 mg via nebulizer every 6 hours as needed for wheezing/shortness of breath. - VENTOLIN HFA 90 mcg/actuation inhaler Inhale 1 puff as instructed every 6 hours as needed. - nabumetone (RELAFEN) 500 mg tablet 500 mg. - pramipexole (MIRAPEX) 0.125 mg tablet TAKE [...] mg subcutaneously one time a week. - carbidopa-levodopa (SINEMET 10-100) 10-100 mg per tablet 1 tablet daily at bedtime. Annotated image of OT HAND WRIST AROM last updated by Janine Stock OTR/Alina on 02/18/2025 9:07 AM Annotated image of OT HAND TENDON GLIDES THUMB last updated by Janine Stock OTR/L on 02/18/2025 9:07 AM Normal [facility] XR DIGIT 3V FRONTAL/LAT/OBL LTon 02-18-2025 XR DIGIT 3V FRONTAL/LAT/OBL LT * * *Final Report* * * DATE OF EXAM: Feb 18 2025 8:43AM AFR [id number] - XR DIGIT 3V FRONTAL/LAT/OBL LT / PROCEDURE REASON: Post-operative state * * * * Physician Interpretation * * * * HISTORY: Post-operative state . POST OP TECHNIQUE: XR DIGIT 3V FRONTAL/LAT/OBL LT COMPARISON: 01/20/2025 RESULT: No significant change. Again seen is pinning of the first MCP joint with a single K wire and postoperative changes of first CMC tendon resection arthroplasty with trapeziectomy. Heterotopic ossification is again seen in the soft tissues adjacent to the scaphoid. No other significant abnormality. IMPRESSION: Postoperative findings as described not significantly changed from prior examination. 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: [facility] Transcribe Date/Time: Feb 18 2025 9:23A Dictated by : MUKESH ANAND MD This examination was interpreted and the report reviewed and electronically signed by: MUKESH ANAND MD on Feb 18 2025 9:25AM EST [id number] Normal [facility] XR Finger - left AP and Late ral and obliqueon 02-18-2025 IMPRESSION: Postoperative findings as described not significantly changed from prior examination. 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: [facility] Transcribe Date/Time: Feb 18 2025 9:23A Dictated by : MUKESH ANAND MD This examination was interpreted and the report reviewed and electronically signed by: MUKESH ANAND MD on Feb 18 2025 9:25AM EST DIVISION OF RADIOLOGY * * *Final Report* * * DATE OF EXAM: Feb 18 2025 8:43AM AFR [id number] - XR DIGIT 3V FRONTAL/LAT/OBL LT / PROCEDURE REASON: Post-operative state * * * * Physician Interpretation * * * * HISTORY: Post-operative state . POST OP TECHNIQUE: XR DIGIT 3V FRONTAL/LAT/OBL LT COMPARISON: 01/20/2025 RESULT: No significant change. Again seen is pinning of the first MCP joint with a single K wire and postoperative changes of first CMC tendon resection arthroplasty with trapeziectomy. Heterotopic ossification is again seen in the soft tissues adjacent to the scaphoid. No other significant abnormality. DIVISION OF RADIOLOGY Provider, Maynor Clifforddeven hdez [place] - 02/18/2025 * * *Final Report* * * DATE OF EXAM: Feb 18 2025 8:43AM AFR [id number] - XR DIGIT 3V FRONTAL/LAT/OBL LT / PROCEDURE REASON: Post-operative state * * * * Physician Interpretation * * * * HISTORY: Post-operative state . POST OP TECHNIQUE: XR DIGIT 3V FRONTAL/LAT/OBL LT COMPARISON: 01/20/2025 RESULT: No significant change. Again seen is pinning of the first MCP joint with a single K wire and postoperative changes of first CMC tendon resection arthroplasty with trapeziectomy. Heterotopic ossification is again seen in the soft tissues adjacent to the scaphoid. No other significant abnormality. IMPRESSION IMPRESSION: Postoperative findings as described not significantly changed from prior examination. 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: [facility] Transcribe Date/Time: Feb 18 2025 9:23A Dictated by : MUKESH ANAND MD This examination was interpreted and the report reviewed and electronically signed by: MUKESH ANAND MD on Feb 18 2025 9:25AM EST [facility] Radiology Study observation (narrative) [facility] XR Finger - left AP and Late ral and obliqueOrdered By: Ccf Provider on 02-18-2025 [facility] CT head/brain ольга rain 02-14 CT head/brain wo [place] [id number] CT Scan Report Signed Patient: Lisa Mendez MR#: [id number] : 1975 Acct:[id number] Age/Sex: 49 / F ADM Date: 02/14/25 Loc: ER Room: Type: REG ER Attending Dr: Copies to: Lisa Adkins APRN Ordering Provider: Lisa Adkins APRN Date of Service: 02/14/25 CT/CT head/brain wo con: headache CT head/brain wo con 02/14/2025 5:16 PM SIGNS AND SYMPTOMS: Headaches, right ear pain TECHNIQUE:Multi-detector CT axial slices of the brain were obtained without IV contrast. CT was performed with one or more of the following dose reduction techniques: Automated exposure control, adjustment of the mA and/or kV according to patient size, or use of iterative reconstruction technique. COMPARISON: 02/01/2023 FINDINGS: There is no shift of the midline structures, acute intracranial bleeding, mass effects, or evidence of acute ischemia. The ventricular system is normal in size. The brainstem and the cerebellum are unremarkable. The visualized intraorbital contents, the visualized paranasal sinuses, and the infratemporal soft tissues show no acute abnormality. The osseous structures in the skull base and the calvarium show no abnormality. CT/CT head/brain wo con IMPRESSION: Normal noncontrasted CT brain. Impression dictated by: Mode Handy M.D. 02/14/2025 5:39 PM Dictation Location: [place] [address] Transcribed By: [facility] 02/14/251738 Dictated By: Mode Handy II, MD 02/14/251736 Signed By: 02/14/251738 Normal [facility] CNOVon 02-03-2025 CNOV Office Visit (LOORRM ) ----- LISA MENDEZ ([id number]) 1975 F Date Time Provider Department 02/03/25 3:30 PM CAST TECH SAMANTHA BABB During your visit today, we recorded the following information about you: Ronaldo Westbrook Cast Tech 02/03/2025 4:04 PM Signed Patient in today for scheduled appointment. Cast removed. Left arm cleansed with Soap and water. Applied Short Arm Thumb Spica Cast to left arm. Extra padding placed around thumb pin. Instructions on cast care given. Will f/u as scheduled/prn. Ronaldo Westbrook, [place] Allergies As of Date: 02/03/2025 Noted Allergy Reaction ROPINIROLE 03/13/2019 4 - Hives TOPIRAMATE 11/11/2013 4 - Hives 2 - Rash 14 - Other: See Comments ALOE VERA 04/02/2012 14 - Other: See Comments BACLOFEN 01/01/2020 14 - Other: See Comments 7 - Swelling CEPHALEXIN 04/02/2012 8 - GI Upset 11 - Vomiting CIPROFLOXACIN 04/02/2012 14 - Other: See Comments CYCLOBENZAPRINE 11/11/2013 4 - Hives 16 - Unknown DICLOFENAC 04/02/2012 14 - Other: See Comments 16 - Unknown Comments: Stomach pain and cramping DULOXETINE 08/27/2024 14 - Other: See Comments Comments: Fatigue GABAPENTIN 04/02/2012 4 - Hives 16 - Unknown 14 - Other: See Comments MENTHOL 04/02/2012 14 - Other: See Comments METFORMIN 11/11/2013 4 - Hives MORPHINE 08/27/2023 8 - GI Upset NAPROXEN 04/02/2012 2 - Rash 16 - Unknown NSAIDS (NON-STEROIDAL ANTI-INFLAM*01/04/2019 4 - Hives 2 - Rash 14 - Other: See Comments OXYCODONE 05/25/2024 8 - GI Upset PENICILLINS 11/18/2024 2 - Rash SUMATRIPTAN 09/04/2021 8 - GI Upset 2 - Rash TRAMADOL 11/18/2024 8 - GI Upset VITAMIN E 04/02/2012 2 - Rash 16 - Unknown 14 - Other: See Comments AZITHROMYCIN 04/02/2012 9 - Itching 2 - Rash ZONISAMIDE 12/10/2022 2 - Rash Date Reviewed: 01/20/2025 Reviewed by: Faith Vargas MA - Fully Assessed Primary Visit Diagnosis:Postoperative state [Z98.890] Prescriptions as of 02/03/2025 - clindamycin (CLEOCIN) 150 mg capsule Take 4 caps 1 hour prior to dentist - SYMBICORT 160-4.5 mcg/actuation inhaler INHALE 2 PUFFS BY MOUTH 2 TIMES A DAY FOR 30 DAYS - carBAMazepine ER (CARBATROL) 300 mg 12 hr capsule 1 capsule. - CAPLYTA 21 mg capsule Take 1 capsule by mouth once daily. - pregabalin (LYRICA) 150 mg capsule Take 150 mg by mouth once daily. - QUEtiapine (SEROQUEL) 25 mg tablet Take 25 mg by mouth daily at bedtime. - ipratropium-albuterol (DUONEB) 0.5 mg-3 mg(2.5 mg base)/3 mL nebu Inhale 3 mL as instructed every 6 hours as needed for wheezing/shortness of breath. - albuterol (PROVENTIL) 2.5 mg /3 mL (0.083 %) nebulizer solution Use 2.5 mg via nebulizer every 6 hours as needed for wheezing/shortness of breath. - VENTOLIN HFA 90 mcg/actuation inhaler Inhale 1 puff as instructed every 6 hours as needed. - nabumetone (RELAFEN) 500 mg tablet 500 mg. - pramipexole (MIRAPEX) 0.125 mg tablet TAKE [...] mg subcutaneously one time a week. - carbidopa-levodopa (SINEMET 10-100) 10-100 mg per tablet 1 tablet daily at bedtime. Problem List As Of Date 02/03/2025 Noted Resolved NO SHOW [] 12/09/2014 Right ankle pain [M25.571] 06/03/2015 Pain in right foot [M79.671] 06/03/2015 Lisfranc dislocation [S93.326A] 06/03/2015 DJD (degenerative joint disease), ankle and mae*06/23/2015 PTTD (posterior tibial tendon dysfunction) [M76*06/23/2015 Morbid obesity (HCC) [E66.01] 06/23/2015 Dry eye syndrome of bilateral lacrimal glands [*12/23/2023 Type 2 diabetes mellitus without retinopathy (H*12/23/2023 Bilateral presbyopia [H52.4] 12/23/2023 S/P lumpectomy, left breast [Z98.890] 08/31/2024 De Quervain's tenosynovitis, left [M65.4] 08/31/2024 Primary osteoarthritis of first carpometacarpal* Asthma (HCC) [J45.909] 11/17/2024 Sleep apnea [G47.30] 11/17/2024 Current smoker [F17.200] 11/17/2024 Kidney stones [N20.0] 11/17/2024 Migraine [G43.909] 01/11/2024 Bipolar 1 disorder (HCC) [F31.9] 11/18/2024 Restless legs [G25.81] 11/18/2024 Mass of breast [N63.0] 11/18/2024 Posttraumatic stress disorder [F43.10] 11/18/2024 Marijuana use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 06/03/2015 Pain in right foot [M79.671] 06/03/2015 Lisfranc dislocation [S93.326A] 06/03/2015 DJD (degenerative joint disease), ankle and mae*06/23/2015 PTTD (posterior tibial tendon dysfunction) [M76*06/23/2015 Morbid obesity (HCC) [E66.01] 06/23/2015 Dry eye syndrome of bilateral lacrimal glands [*12/23/2023 Type 2 diabetes mellitus without retinopathy (H*12/23/2023 Bilateral presbyopia [H52.4] 12/23/2023 S/P lumpectomy, left breast [Z98.890] 08/31/2024 De Quervain's tenosynovitis, left [M65.4] 08/31/2024 Primary osteoarthritis of first carpometacarpal* Asthma ([facility]) [J45.909] 11/17/2024 Sleep apnea [G47.30] 11/17/2024 Current smoker [F17.200] 11/17/2024 Kidney stones [N20.0] 11/17/2024 Migraine [G43.909] 01/11/2024 Bipolar 1 disorder (HCC) [F31.9] 11/18/2024 Restless legs [G25.81] 11/18/2024 Mass of breast [N63.0] 11/18/2024 Posttraumatic stress disorder [F43.10] 11/18/2024 Marijuana use [F12.90] 12/16 (more content not included)... Normal [facility] XR HAND 3V PA/LAT/OBL LTon 0 01-14-2025 XR HAND 3V PA/LAT/OBL LT * * *Final Report* * * DATE OF EXAM: Jan 14 2025 3:47PM AFR 5345 - XR HAND 3V PA/LAT/OBL LT / PROCEDURE REASON: Post-operative state * * * * Physician Interpretation * * * * X-RAYS LEFT HAND HISTORY: POST OP FOLLOW UP. Post-operative state TECHNIQUE: 3 views COMPARISON: 08/31/2024 x-rays RESULT: Interval revision of left thumb CMC joint arthroplasty. There is now improved alignment with previously noted proximal migration of the left thumb metacarpal no longer identified. Additionally noted is a percutaneous pin fixation of the left thumb MCP joint. IMPRESSION: Postsurgical changes left hand including left thumb CMC joint arthroplasty revision and pin fixation of the left thumb MCP joint. 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: Kandu Transcribe Date/Time: Jan 14 2025 3:55P Dictated by : KATIE OMER MD This examination was interpreted and the report reviewed and electronically signed by: KATIE OMER MD on Jan 14 2025 3:57PM EST [id number] Normal [facility] XR Hand - left PA and Latera l and Obliqueon 01-14-2025 IMPRESSION: Postsurgical changes left hand including left thumb CMC joint arthroplasty revision and pin fixation of the left thumb MCP joint. 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: Kandu Transcribe Date/Time: Jan 14 2025 3:55P Dictated by : KATIE OMER MD This examination was interpreted and the report reviewed and electronically signed by: KATIE OMER MD on Jan 14 2025 3:57PM EST DIVISION OF RADIOLOGY * * *Final Report* * * DATE OF EXAM: Jan 14 2025 3:47PM AFR 5345 - XR HAND 3V PA/LAT/OBL LT / PROCEDURE REASON: Post-operative state * * * * Physician Interpretation * * * * X-RAYS LEFT HAND HISTORY: POST OP FOLLOW UP. Post-operative state TECHNIQUE: 3 views COMPARISON: 08/31/2024 x-rays RESULT: Interval revision of left thumb CMC joint arthroplasty. There is now improved alignment with previously noted proximal migration of the left thumb metacarpal no longer identified. Additionally noted is a percutaneous pin fixation of the left thumb MCP joint. DIVISION OF RADIOLOGY Provider, [facility] - 01/14/2025 * * *Final Report* * * DATE OF EXAM: Jan 14 2025 3:47PM AFR 5345 - XR HAND 3V PA/LAT/OBL LT / PROCEDURE REASON: Post-operative state * * * * Physician Interpretation * * * * X-RAYS LEFT HAND HISTORY: POST OP FOLLOW UP. Post-operative state TECHNIQUE: 3 views COMPARISON: 08/31/2024 x-rays RESULT: Interval revision of left thumb CMC joint arthroplasty. There is now improved alignment with previously noted proximal migration of the left thumb metacarpal no longer identified. Additionally noted is a percutaneous pin fixation of the left thumb MCP joint. IMPRESSION IMPRESSION: Postsurgical changes left hand including left thumb CMC joint arthroplasty revision and pin fixation of the left thumb MCP joint. 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: PSCB Transcribe Date/Time: Jan 14 2025 3:55P Dictated by : KATIE OMER MD This examination was interpreted and the report reviewed and electronically signed by: KATIE OMER MD on Jan 14 2025 3:57PM EST [facility] Radiology Study observation (narrative) [facility] XR Hand - left PA and Latera l and ObliqueOrdered By: Ccf Provider on 01-14-2025 [facility] X-ray reportOrdered By: Daniel Lewis on 01-12-2025 Study report [facility] [address] XRay Report Signed Patient: Lisa Mendez MR#: [id number] : 1975 Acct:[id number] Age/Sex: 49 / F ADM Date: 5 Loc: ER Room: Type: [facility] ER Attending Dr: Copies to: Mary Ellen Magallanes APRN~ Ordering Provider: Mary Ellen Magallanes APRN Date of Service: 01/12/25 XR/XR hand LT min 3V*: Extremity Injury, Upper ([id number]) XR/XR wrist LT min 3V*: Extremity Injury, Upper 3 views left hand 3 views of the left wrist INDICATION: Generalized pain, extremity injury COMPARISON: 11/02/2022 FINDINGS: The postsurgical changes identified involving the first MCP joint withK wire and overlying casting material. Posterior changes at the CMC joint notedlikely related to bony resection of the trapezium. Otherwise no fracture or dislocation identified alignment is anatomic. Soft tissues unremarkable. XR/XR hand LT min 3V* IMPRESSION: Postsurgical changes of the splinting material. No definite acute osseous abnormality identified. Impression dictated by: Kristofer Lewis M.D. 01/12/2025 7:45 PM Dictation Location: [facility] Transcribed By: HARLAN 01/12/251944 Dictated By: Kristofer Lewis MD 01/12/251941 Signed By: 01/12/251944 [facility] Work Phone: XR wrist LT min 3V*on 2024 XR wrist LT min 3V* [facility] [place] [address] [place] [address] XRay Report Signed Patient: Lisa Mendez MR#: [id number] : 1975 Acct:[id number] Age/Sex: 49 / F ADM Date: 01/12/25 Loc: ER Room: Type: [facility] ER Attending Dr: Copies to: Mary Ellen Magallanes APRN Ordering Provider: Mary Ellen Magallanes APRN Date of Service: 01/12/25 XR/XR hand LT min 3V*: Extremity Injury, Upper ([id number]) XR/XR wrist LT min 3V*: Extremity Injury, Upper 3 views left hand 3 views of the left wrist INDICATION: Generalized pain, extremity injury COMPARISON: 11/02/2022 FINDINGS: The postsurgical changes identified involving the first MCP joint with K wire and overlying casting material. Posterior changes at the CMC joint noted likely related to bony resection of the trapezium. Otherwise no fracture or dislocation identified alignment is anatomic. Soft tissues unremarkable. XR/XR hand LT min 3V* IMPRESSION: Postsurgical changes of the splinting material. No definite acute osseous abnormality identified. Impression dictated by: Kristofer Lewis M.D. 01/12/2025 7:45 PM Dictation Location: [facility] Transcribed By: HARLAN 01/12/251944 Dictated By: Kristofer Lewis MD 01/12/251941 Signed By: 01/12/251944 Normal [facility] ANES POSTPROC EVALon 025 ANES POSTPROC EVAL HNO ID: [id number] Author: JOSE BLANCO MD Service: Anesthesiology Author Type: Physician Type: Anesthesia Postprocedure Evaluation Filed: 01/07/2025 12:18 Note Text: POST ANESTHESIA EVALUATION NOTE : 1975 Procedure Summary Date: 01/07/25 Room / Location: [address] Anesthesia Start: 736 Anesthesia Stop: 112 Procedures: ARTHROPLASTY CARPOMETACARPAL JOINTS (Left: Finger thumb) INCISION EXTENSOR TENDON SHEATH WRIST (Left: Finger thumb) TRANSFER TENDON, CARPOMETACARPAL OR DORSUM HAND; W/O FREE GRAFT, EACH (Left: Finger thumb) METACARPAL PHALANGEAL PINNING (Left: Finger thumb) Diagnosis: H/O thumb surgery Primary osteoarthritis of first carpometacarpal joint of left hand De Quervain's tenosynovitis (H/O thumb surgery [Z98.890]) (Primary osteoarthritis of first carpometacarpal joint of left hand [M18.12]) (De Quervain's tenosynovitis [M65.4]) Surgeons: Kwame Mcneil MD Responsible Provider: Jose Blanco MD Anesthesia Type: general, regional ASA Status: 3 Anesthesia Type: general, regional Airway Type: LMA Last Vitals Vitals Value Taken Time BP 140/70 01/07/25 1210 Temp 36.3 ?C (97.3 ?F) 01/07/25 1121 Pulse 101 01/07/25 1217 Resp 15 01/07/25 1200 SpO2 95 % 01/07/25 1217 Vitals shown include unfiled device data. Post Anesthesia Patient Status Patient Evaluation: PACU. PACU/ICU Patient Condition: stable. Anticipated Disposition: phase 2 then home. Neurological Status: aware and responsive. Pulmonary Status: breathing comfortably on room air Airway Control: returned to baseline unsupported. Cardiovascular Status: stable. Pain Management: satisfactory to patient Postoperative Hydration: acceptable. Intraoperative Events: no significant anesthesia events Recommendation: continue current plan of care. Anesthesia Observations No Documentation SIGNATURE: Jose Blanco MD PATIENT NAME: Lisa Mendez DATE: January 07, 2025 TIME: 12:18 PM CSN: [id number] Normal [facility] ANES PRE-OPon 01-07-2025 ANES PRE-OP HNO ID: [id number] Author: JOSE BLANCO MD Service: Anesthesiology Author Type: Physician Type: Anesthesia Preprocedure Evaluation Filed: 01/07/2025 06:59 Note Text: ANESTHESIOLOGY DAY OF SURGERY NOTE : 1975 Procedure Information Date/Time: 01/07/25 0730 Procedures: ARTHROPLASTY CARPOMETACARPAL JOINTS (Left: Finger thumb) INCISION EXTENSOR TENDON SHEATH WRIST (Left: Finger thumb) TRANSFER TENDON, CARPOMETACARPAL OR DORSUM HAND; W/O FREE GRAFT, EACH (Left: Finger thumb) METACARPAL PHALANGEAL PINNING (Left: Finger thumb) Location: [place] [address] / [facility] Surgeons: Kwame Mcneil MD Estimated body mass index is 41.45 kg/m? as calculated from the following: Height as of 12/16/24: 160 cm (5' 3 ). Weight as of 12/16/24: 106.1 kg (234 lb). Most recent hematocrit and potassium results: No results found for this basename: HCT,HEMATOCRIT,K,POTASSIU M Relevant Problems ANESTHESIA (+) Sleep apnea CARDIO (+) Migraine ENDO (+) Type 2 diabetes mellitus without retinopathy (HCC) -RENAL (+) Kidney stones NEURO-PSYCH (+) Migraine PULMONARY (+) Asthma (HCC) (+) Sleep apnea Other (+) DJD (degenerative joint disease), ankle and foot (+) Primary osteoarthritis of first carpometacarpal joint of left hand I - PHYSICAL EVALUATION AIRWAY Patient intubated: No. Tracheostomy tube not present Mallampati: II. TM distance: >3 FB. Neck ROM: full. Mouth opening: adequate. Short neck: no. Thick neck: no Chandler present: no DENTAL Dental findings: edentulous. Additional exam findings: no II - ANESTHESIA PLAN ASA Score: 3 Anesthetic Plan: general and regional Airway type: LMA NPO Status: adequate Anesthetic plan additional comments: Axillary nerve block. Beta Torri Monitoring Plan Monitoring plan: Standard ASA. Post Procedure Analgesic Plan Postoperative analgesic plan: parenteral or oral opioids and peripheral nerve block. Informed Consent Anesthetic risks, benefits, alternatives, personnel and consent discussed: yes. Patient / Responsible Democrat agrees to proceed: yes Patient / Surrogate agrees to blood products: blood products not planned Significant changes in the patient condition since the History and Physical, not otherwise documented in primary service progress note: no. Potential Anesthesia issues that may suggest increased risk of complications or contraindication to planned procedure: none. Vitals Value Taken Time BP 136/80 01/07/25 0650 Pulse Resp 18 01/07/25 0650 Temp 37.1 ?C (98.7 ?F) 01/07/25 0650 SpO2 99 % 01/07/25 0650 Facility-Administered Medications as of 01/07/2025 Medication Dose Route Frequency lidocaine (PF) 10 mg/mL (1 %) 1-2 mg injection (XYLOCAINE) 0.1-0.2 mL INTRADERMAL PRN lactated ringers iv infusion 5-30 mL/hr INTRAVENOUS CONTINUOUS NaCl 0.9% iv flush bag 20 mL INTRAVENOUS PRN clindamycin iv piggyback 900 mg in D5W 50 mL (CLEOCIN) 900 mg INTRAVENOUS Pre-Op Once promethazine 12.5 mg tab(s) (PHENERGAN) 12.5 mg ORAL Pre-Op Once scopolamine (delivers 1 mg over 3 days) 1 patch (TRANSDERM-SCOP) 1 patch TRANSDERMAL ONCE scopolamine - VERIFY patch OTHER q 8 H [START ON 01/08/2025] scopolamine - REMOVE PATCH OTHER ONCE Outpatient Medications as of 01/07/2025 Medication Sig carBAMazepine ER (CARBATROL) 300 mg 12 hr capsule 1 capsule. CAPLYTA 21 mg capsule Take 1 capsule by mouth once daily. nabumetone (RELAFEN) 500 mg tablet 500 mg. glipiZIDE (GLUCOTROL) 5 mg tablet Take 5 mg by mouth daily before breakfast. carbidopa-levodopa (SINEMET 10-100) 10-100 mg per tablet 1 tablet daily at bedtime. SYMBICORT 160-4.5 mcg/actuation inhaler INHALE 2 PUFFS BY MOUTH 2 TIMES A DAY FOR 30 DAYS pregabalin (LYRICA) 150 mg capsule Take 150 mg by mouth once daily. QUEtiapine (SEROQUEL) 25 mg tablet Take 25 mg by mouth daily at bedtime. ipratropium-albuterol (DUONEB) 0.5 mg-3 mg(2.5 mg base)/3 mL nebu Inhale 3 mL as instructed every 6 hours as needed for wheezing/shortness of breath. albuterol (PROVENTIL) 2.5 mg /3 mL (0.083 %) nebulizer solution Use 2.5 mg via nebulizer every 6 hours as needed for wheezing/shortness of breath. VENTOLIN HFA 90 mcg/actuation inhaler Inhale 1 puff as instructed every 6 hours as needed. pramipexole (MIRAPEX) 0.125 mg tablet TAKE 1 TABLET BY MOUTH 2 TO 3 HOURS BEFORE BEDTIME cholecalciferol, Vitamin D3, (VITAMIN D3) 1,250 mcg (50,000 unit) cap capsule Take 1 capsule by mouth one time a week. cyanocobalamin (VITAMIN B-12) 1,000 mcg tab Take 1,000 mcg by mouth once daily. rimegepant sulfate (NURTEC ODT ORAL) Take 75 mg by mouth. dulaglutide (TRULICITY) 4.5 mg/0.5 mL pen injector Inject 4.25 mg subcutaneously one time a week. I have interviewed and examined the patient. I have reviewed the medical record and/or the pre-anesthesia evaluation, pertinent labs, and test results. This contains updated information obtained within 48 hours of Surgery/Procedure. SIGNATURE: Jose (more content not included)... Normal [facility] BRIEF OP NOTon 01-07-2025 BRIEF OP NOT HNO ID: [id number] Author: KWAME MCNEIL MD Service: Orthopaedic Surgery Author Type: Physician Type: Brief Op Note Filed: 01/07/2025 11:07 Note Text: BRIEF OPERATIVE / PROCEDURE NOTE LOG ID: [id number] SURGERY/PROCEDURE DATE: 01/07/2025 INCISION/PROCEDURE START TIME: 8:13 AM INCISION CLOSE/PROCEDURE END TIME: 11:05 AM SURGEON(S)/PROCEDURALIST( S) AND INSTRUMENT REPAIR TECHNICIAN(S): Surgeons and Role: * Kwame Mcneil MD - Primary Physician Supervisor Advice: Aline Hammonds PA-C SURGERY/PROCEDURE(S): Left thumb revision carpometacarpal arthroplasty with slip of abductor pollicis longus tendon and internal brace with suture anchors; left first dorsal compartment release; extensor pollicis brevis transfer and thumb metacarpal phalangeal pinning ANESTHESIA: Block Regional - Extremity Upper FINDINGS: Subsidence of left thumb metacarpal with abutment on scaphoid, after revision CMC arthroplasty with internal brace there was good stability and motion without any bony impingement with a full arc of motion, left first dorsal compartment tenosynovitis ESTIMATED BLOOD LOSS: 0 ml SPECIMENS: Left hand deep hardware COMPLICATIONS: None CLOSURE TECHNIQUE: Primary PRE-OP/PRE-PROCEDURE DIAGNOSIS: Failed left thumb CMC arthroplasty, left de Quervain's tenosynovitis POST-OP/POST-PROCEDURE DIAGNOSIS: Same as Preop Patient was accompanied to the next level of care by a licensed practitioner from the surgical team pending completion of this brief op note (or operative note) SIGNATURE: Kwame Mcneil MD PATIENT NAME: Lisa Mendez DATE: January 07, 2025 TIME: 10:48 AM Normal [facility] OPERATIVE NOon 01-07-2025 OPERATIVE NO HNO ID: [id number] Author: KWAME MCNEIL MD Service: Orthopaedic Surgery Author Type: Physician Type: Operative Report Filed: 01/07/2025 11:06 Note Text: Operative note Patient name: Lisa Mendez SURGERY/PROCEDURE DATE: 01/07/2025 INCISION/PROCEDURE START TIME: 8:13 AM INCISION CLOSE/PROCEDURE END TIME: 11:05 AM SURGEON(S)/PROCEDURALIST( S) AND INSTRUMENT REPAIR TECHNICIAN(S): Surgeons and Role: * Kwame Mcneil MD - Primary Physician Supervisor Advice: Aline Hammonds PA-C SURGERY/PROCEDURE(S): Left thumb revision carpometacarpal arthroplasty with slip of abductor pollicis longus tendon and internal brace with suture anchors; left first dorsal compartment release; extensor pollicis brevis transfer and thumb metacarpal phalangeal pinning ANESTHESIA: Block Regional - Extremity Upper FINDINGS: Subsidence of left thumb metacarpal with abutment on scaphoid, after revision CMC arthroplasty with internal brace there was good stability and motion without any bony impingement with a full arc of motion; left first dorsal compartment tenosynovitis ESTIMATED BLOOD LOSS: 0 ml SPECIMENS: Left hand deep hardware COMPLICATIONS: None CLOSURE TECHNIQUE: Primary PRE-OP/PRE-PROCEDURE DIAGNOSIS: Failed left thumb CMC arthroplasty, left de Quervain's tenosynovitis POST-OP/POST-PROCEDURE DIAGNOSIS: Same as Preop Indications: Patient is a 49-year-old female with the above named diagnosis. She has undergone 3 previous operations for this and continues to have pain. After I saw her in the clinic I offered the above-named procedure. After a discussion of risks, benefits, alternatives, patient agreed to the above-named procedure. Procedure: Patient was seen in the PACU and informed consent was verified. The left thumb and wrist were marked. The patient was taken to the operative theater where general anesthesia was induced and preoperative antibiotics given. A block was done by the anesthesia service. A tourniquet was now placed on the left arm. The left upper extremity was prepped and draped in the usual sterile fashion. We did a surgical timeout. We now exsanguinated the arm and brought the tourniquet up to 250 mmHg. I now made a hockey-stick shaped incision overlying the left thumb CMC joint. I carefully cut through skin and subcutaneous tissue. I bluntly dissected down to APL and EPB and CMC dorsal capsule. Branches of superficial radial nerve were identified and protected. Radial artery was identified and protected. I now incised through dorsal capsule of CMC joint. I now circumferentially dissected out base of thumb metacarpal. Similarly I dissected out scaphoid, trapezoid, base of second metacarpal. The radial artery was protected. At this point I moved to the dorsal radial wrist and made a 3 cm incision overlying the first dorsal compartment. I carefully cut through skin and subcutaneous tissue. I bluntly dissected down to the compartment. Branches of superficial radial nerve were identified and protected. I incised through first dorsal compartment extensor retinaculum in the center so there were good bumpers volarly and dorsally. I opened the extensor retinaculum up completely overlying the first dorsal compartment. We noted tenosynovitis of APL and EPB. There were multiple slips of APL. The tendons were able to be fully retracted out of the wound. Ultimately we made lengthening cuts through radial and ulnar septum of the extensor retinaculum and then closed this loosely over the first dorsal compartment tendons to stabilize the tendons and prevent subluxation. This was done with 4-0 PDS. At this point we took a 5 cm x 2 mm slip of APL tendon to use for our suspension plasty. We now drilled for and placed 2 Arthrex suture anchors. The suture anchors went from radial base of thumb metacarpal and radial base of index metacarpal. The anchors captured the slip of the APL and fiber tape to act as an internal brace. The anchors were tensioned with the thumb held in maximal traction with maximal adduction. We now looked at our suspension plasty under fluoroscopy and noted a full arc of motion with no subsidence or bony impingement. Please note that we did remove the previously placed Endobuttons at the base of thumb metacarpal and used another small incision overlying the dorsal ulnar base of index metacarpal to remove that Endobutton. Additionally we used a rongeur and rasps to smooth out base of thumb metacarpal prior to placing our suspension plasty anchors. At this point the wounds were copiously irrigated. We now closed the dorsal capsule with 4-0 PDS. We did suture EPB into this capsule and excised EPB distal to this. EPL was identified and protected. Finally, we percutaneously placed a 0.045 K wire across the thumb MP joint. This was done radially to ulnarly and proximally to distally with the thumb in about 30 degrees of flexion. The tourniquet was brought down and bipolar electr (more content not included)... Normal [facility] Pathology biopsy report Maury (Tiss)on 01-07-2025 CASE REPORT Normal [facility] Comment on above: Order Comment: Speci saul Type: DEVICE SPECIMENOrdering Facility: [facility] Address: [address] [place] [address] Result Comment: Surg [facility] Pathology Report Case: [id number] Authorizing Provider: Kwame Mcneil MD Collected: 01/07/2025 09:23 AM Ordering Location: Ambulatory Surgery Received: 01/07/2025 03:35 PM Pathologist: Giana Escalera MD, PhD Specimen: Hardware/Device/Foreign Body, left thumb explants (anchors x 2) Performed By: #### 6 6121-5 ####[facility] [id number] [place] [address] [place] CLINICAL HISTORY Normal [facility] Comment on above: Order Comment: Savanna hughse Type: DEVICE SPECIMENOrdering Facility: [facility] Address: [address] [place] [address] Result Comment: Pre- op diagnosis: H/O thumb surgery [Z98.890] Primary osteoarthritis of first carpometacarpal joint of left hand [M18.12] De Quervain's tenosynovitis [M65.4] Performed By: #### 6 6121-5 ####[facility] [id number] [address] FINAL DIAGNOSIS Normal [facility] Comment on above: Order Comment: Speci men Type: DEVICE SPECIMENOrdering Facility: [facility] Address: [address] [place] [address] Result Comment: A. L eft thumb, hardware, removal: - Grossly unremarkable metal plates (gross examination only) /MSL 01/08/2025 at 1414 EDT Performed By: #### 6 6121-5 ####[facility] [id number] [address] OF [facility] FINAL PERFORMING LAB Normal [facility] Comment on above: Order Comment: Speci men Type: DEVICE SPECIMENOrdering Facility: [facility] Address: [address] [place] [address] Result Comment: Diag nostic interpretation performed at: [facility], [address] [place] [address] CLIA# [id number] Grout Machine Tender: Rohan Zuluaga MD Performed By: #### 6 6121-5 ####[facility] [id number] [address] GROSS DESCRIPTION Normal [facility] Comment on above: Order Comment: Speci men Type: DEVICE SPECIMENOrdering Facility: [facility] Address: [address] [place] [address] Result Comment: A. H ardware/Device/Foreign Body Received fresh labeled left thumb explant (anchors x 2) are 2 silver metallic metal plates with 2 screw holes measuring 0.8 x 0.3 x 0.1 cm each. No tissue is identified. No sections are submitted. Gross examination only. The specimen is reviewed with Dr. Escalera. Gross examination performed at [facility], [facility] [place] [address] MSL/ANITA 01/08/25 9:19 AM Performed By: #### 6 6121-5 ####[facility] LAB[facility]IA [id number] [place] [address] [place] FPG ECG *CARDIOLOGY ONLY*on 12-23-2024 FPG ECG *CARDIOLOGY ONLY* [place] [address] Electrocardiograph Report Signed Patient: Lisa Mendez MR#: [id number] : 1975 Acct:[id number] Age/Sex: 49 / F ADM Date: 12/23/24 Loc: [facility] Room: Type: [facility] Attending Dr: Josr Fuentes MD Ordering Provider: Josr Fuentes MD Date of Service: 12/23/24 ECG/FPG ECG *CARDIOLOGY ONLY*: R06.00 - Dyspnea, unspecified Copies to: Test Reason : Blood Pressure : */* mmHG Vent. Rate : 93 BPM Atrial Rate : 93 BPM P-R Int : 170 ms QRS Dur : 80 ms QT Int : 382 ms P-R-T Axes : 49 64 54 degrees QTcB Int : 474 ms Normal sinus rhythm Normal ECG When compared with ECG of 23-Oct-2024 17:44, No significant change was found Confirmed by Josr Fuentes ([id number]) on 12/23/2024 2:56:33 PM Referred By: Electronically Signed By: Josr Fuentes Transcribed By: MUS Signed By Josr Fuentes MD 12/23/24 1456 Normal [facility] CNOVon 12-22-2024 CNOV Office Visit (ORAVON ) ----- LISA MENDEZ ([id number]) 1975 F Date Time Provider Department 12/22/24 10:00 AM PREETHI LANCASTER During your visit today, we recorded the following information about you: Preethi Lancaster MD 12/22/2024 10:44 AM Addendum Patient presents with: Left Knee - New, Knee Pain HPI: Location: Left Knee Duration: had left TKA 4 years ago Intensity 10 /10 Quality sharp The right knee is nonpainful Better or Worse: worse with activity better with rest PAST MEDICAL HISTORY Diagnosis Date H/O abdominal hysterectomy 01/2020 PAST SURGICAL HISTORY Procedure Laterality Date PAST SURGICAL HISTORY OF knee scopes PAST SURGICAL HISTORY OF Bilateral carpal tunnel PAST SURGICAL HISTORY OF Left lumpectomy PAST SURGICAL HISTORY OF Bilateral total knee REMOVAL GALLBLADDER TONSILLECTOMY AND ADENOIDECTOMY TOTAL ABDOM HYSTERECTOMY Current Outpatient Medications Medication Sig Dispense Refill SYMBICORT 160-4.5 mcg/actuation inhaler INHALE 2 PUFFS BY MOUTH 2 TIMES A DAY FOR 30 DAYS carBAMazepine ER (CARBATROL) 300 mg 12 hr capsule 1 capsule. CAPLYTA 21 mg capsule Take 1 capsule by mouth once daily. pregabalin (LYRICA) 150 mg capsule Take 150 mg by mouth once daily. QUEtiapine (SEROQUEL) 25 mg tablet Take 25 mg by mouth daily at bedtime. ipratropium-albuterol (DUONEB) 0.5 mg-3 mg(2.5 mg base)/3 mL nebu Inhale 3 mL as instructed every 6 hours as needed for wheezing/shortness of breath. albuterol (PROVENTIL) 2.5 mg /3 mL (0.083 %) nebulizer solution Use 2.5 mg via nebulizer every 6 hours as needed for wheezing/shortness of breath. VENTOLIN HFA 90 mcg/actuation inhaler Inhale 1 puff as instructed every 6 hours as needed. nabumetone (RELAFEN) 500 mg tablet 500 mg. pramipexole (MIRAPEX) 0.125 mg tablet TAKE 1 [...] 4.25 mg subcutaneously one time a week. carbidopa-levodopa (SINEMET 10-100) 10-100 mg per tablet 1 tablet daily at bedtime. No current facility-administered medications for this visit. No family history on file. ALLERGIES Allergen Reactions Ropinirole Hives Topiramate Hives, Rash, Other: See Comments Aloe Vera Other: See Comments Baclofen Other: See Comments, Swelling Cephalexin GI Upset, Vomiting Ciprofloxacin Other: See Comments Cyclobenzaprine Hives, Unknown Diclofenac Other: See Comments, Unknown Stomach pain and cramping Duloxetine Other: See Comments Fatigue Gabapentin Hives, Unknown, Other: See Comments Menthol Other: See Comments Metformin Hives Morphine GI Upset Naproxen Rash, Unknown Nsaids (Non-Steroid* Hives, Rash, Other: See Comments Oxycodone GI Upset Penicillins Rash Sumatriptan GI Upset, Rash Tramadol GI Upset Vitamin E Rash, Unknown, Other: See Comments Azithromycin Itching, Rash Zonisamide Rash ROS: + for arthritis limp limb pain no fevers chills CP or SOB. PE: General: well developed well nourished appears stated age Resp: nonlabored Abd: nontender (reports hx of gastroparesis) Left Knee: is stable on varus valgus and drawer testing ROM 0 to 105 degrees DF PF EHL intact DP PT 2 + Left knee without effusion warmth or erythema Right Knee: is stable on varus valgus and drawer testing ROM 0 to 105 degrees DF PF EHL intact DP PT 2 + Edema no Effusion no; no warmth or erythema Gait: waddling antalgic to left Mood: euthymic Coordination: normal Imaging: reveals left TKA without mechanical loosening. I have reviewed and interpreted films personally . XR report IMPRESSION: Left total knee arthroplasty without hardware complication. Labs: No results found for: HBA1C CRP Date Value Ref Range Status 10/28/2024 0.5 <0.9 mg/dL Final Outside OP report reviewed: Biomet vanguard 62.5 F, 71 tibia 10 PS poly [address] Buitrago AP: 49 year old sp left TKA with painful prosthesis. CRP is normal ; no palpable effusions or erythema. Revision surgery not indicated I have counseled the patient and discussed the natural history and prognosis of the condition. Consider Repeat XR at year 10 or as needed Orders Placed This Encounter clindamycin (CLEOCIN) 150 mg capsule Sig: Take 4 caps 1 hour prior to dentist Dispense: 12 capsule Refill: 1 Preethi Lancaster MD 12/22/2024 10:44 AM Signed Addended by: PREETHI LANCASTER on: 12/22/2024 10:44 AM Modules accepted: Orders, Level of Service Referring Provider: LUIS MATHEW [[id number]] Allergies As (more content not included)... Normal [facility] HISTORY PHYSICALon HISTORY PHYSICAL HNO ID: [id number] Author: TK GARRETT PA-C Service: ? Author Type: Physician Supervisor Advice Type: H&P Filed: 12/16/2024 11:14 Note Text: [facility] HISTORY AND PHYSICAL EXAMINATION SERVICE DATE: 12/16/2024 SERVICE TIME: 10:15 AM Patient has been identified by name and date of : Yes Reason for contact: PACC visit Accompanied by: Self This is a virtual visit using [employer] Zoom Video Visit. It required patient-provider interaction for the medical decision making as documented below. I have communicated my name and active licensure. The patient's identity and physical location were verified at the time of this visit. Either the patient or their legal sales and service representative has been informed of the risks and benefits of and alternatives to treatment through a remote evaluation and consents to proceed with the evaluation remotely. PRIMARY CARE PHYSICIAN: Brigida Nobles CNP REASON FOR VISIT: Lisa Mendez is a 49 year old female who is scheduled for Left - ARTHROPLASTY CARPOMETACARPAL JOINTS Left - INCISION EXTENSOR TENDON SHEATH WRIST Left - TRANSFER TENDON, CARPOMETACARPAL OR DORSUM HAND; W/O FREE GRAFT, EACH Left - METACARPAL PHALANGEAL PINNING at the request of Dr. Kwame Mcneil for consultation. My final recommendation will be communicated back to the requesting physician by way of shared medical record or letter. Assessment Patient has the following medical conditions which may affect man-operative course: 1. Pre-op evaluation (Primary) Surgery scheduled for 01/07/2025 Patient is scheduled today to have all her teeth extracted. If she has no complications and healing well she is ok to proceed. Patient was advised to contact her surgeon if she has complications. 2. Morbid obesity (HCC) Body mass index is 41.45 kg/m?. Encouraged lifestyle modifications. patients weight is mostly lower half 3. Other migraine without status migrainosus, not intractable Chronic and stable and compliant with medications ` 4. Uncomplicated asthma, unspecified asthma severity, unspecified whether persistent (HCC) Chronic and stable continue medications Triggered by increased activities Last required albuterol 1 week ago Denies SOB or wheezing 5. Current smoker vapes daily - nicotine, THS, and CBD Patient was advised to abstain for 7 days prior to surgery 6. Sleep apnea, unspecified type not compliant with machine 7. Type 2 diabetes mellitus without retinopathy (HCC) Reports compliant with medication . Patient reports fasting glucose 130's. Continue medications. Encouraged lifestyle modifications. Preoperative Instructions for Patient's with Diabetes Mellitus/ Prediabetes Oral Medication Instructions: DO NOT TAKE THE MORNING OF SURGERY: Glucotrol/Glipizide Injectable Medication Instructions: please HOLD 7 DAYS PRIOR TO SURGERY: patient currently does not have the medication but asking for a refill. Last dose was 12/07/2024 Dulaglutide (Trulicity) skip 12/28 and 01/04 dose 8. Bipolar 1 disorder (HCC) Chronic and stable and compliant with medications 9. Posttraumatic stress disorder triggered by stress, ok in medical facilities 10. Marijuana use Marijuana use: Yes: Concentrate- Inhalation daily Patient advised to not use starting ideally 1 week prior to surgery, but minimally 3 days prior to surgery, and not to use DOS. ANESTHESIA FINDINGS: Intubation History: No history of difficult intubation. No abnormal airway history Significant Anesthesia Considerations: none Airway History: No history of difficult airway No abnormal airway history Gibbs Activity Status Index: METS: Walk indoors, such as around the house (1.75 METs) Do light work around the house, such as dusting or washing dishes (2.70 METs) Take care of self; that is eating, dressing, bathing, using the toilet (2.75 METs) Walk a block or two on level ground (2.75 METs) Do moderate work around the house, such as vacuuming, sweeping floors, or carrying in groceries (3.50 METs) DASI Score: 13.45 Patient denies any chest pain or undue shortness of breath with the above physical activity. Clinical Frailty Scale: 3. Well, with treated comorbid disease STOP-Bang Score: STOP-Bang Score: (Positive for NATALY and not compliant with machine) I - PHYSICAL EVALUATION AIRWAY Patient intubated: No. Tracheostomy tube not present Mallampati: II. TM distance: >3 FB. Neck ROM: full ROM without neurological symptoms. Mouth opening: adequate. Short neck: no. Thick neck: no Lip Bite Test: I Microretrognathia/Microna gthia/Recessed Chin: No DENTAL Additional comments: many missing, one infected . II - ANESTHESIA PLAN Beta Torri Monitoring Plan Post Procedure Analgesic Plan Prepared for surgery: This patient is optimally prepared for surgery pending healing from tooth extraction scheduled today CONSULTS: (more content not included)... Normal [facility] NURSING PROGon 12-07-2024 NURSING PROG HNO ID: [id number] Author: PHOEBE MOORE RN Service: ? Author Type: Registered Nurse Type: Nursing Progress Note Filed: 12/07/2024 10:31 Note Text: Dr. Mcneil made aware of patient on recent antibiotic for tooth infection. Patient has plans to get tooth removed on the 14th of this month. Dr. Mcneil to be at bedside to talk with patient about postponing this procedure due to post operative complications that can occur. [facility]N Telephone (ORQ) ----- LISA MENDEZ ([id number]) 1975 F Date Time Provider Department 12/01/24 KWAME MCNEIL ORQ During your visit today, we recorded the following information about you: Nya Ellsworth 12/01/2024 2:18 PM Signed Type of form: [facility] Form received via walk in When form is completed, Form has been forwarded to Physician Mailbox: Dr. Tarun Ellsworth Allergies As of Date: 12/01/2024 Noted Allergy Reaction ROPINIROLE 03/13/2019 4 - Hives TOPIRAMATE 11/11/2013 4 - Hives 2 - Rash 14 - Other: See Comments ALOE VERA 04/02/2012 14 - Other: See Comments BACLOFEN 01/01/2020 14 - Other: See Comments 7 - Swelling CEPHALEXIN 04/02/2012 8 - GI Upset 11 - Vomiting CIPROFLOXACIN 04/02/2012 14 - Other: See Comments CYCLOBENZAPRINE 11/11/2013 4 - Hives 16 - Unknown DICLOFENAC 04/02/2012 14 - Other: See Comments 16 - Unknown Comments: Stomach pain and cramping DULOXETINE 08/27/2024 14 - Other: See Comments Comments: Fatigue GABAPENTIN 04/02/2012 4 - Hives 16 - Unknown 14 - Other: See Comments MENTHOL 04/02/2012 14 - Other: See Comments METFORMIN 11/11/2013 4 - Hives MORPHINE 08/27/2023 8 - GI Upset NAPROXEN 04/02/2012 2 - Rash 16 - Unknown NSAIDS (NON-STEROIDAL ANTI-INFLAM*01/04/2019 4 - Hives 2 - Rash 14 - Other: See Comments OXYCODONE 05/25/2024 8 - GI Upset PENICILLINS 11/18/2024 2 - Rash SUMATRIPTAN 09/04/2021 8 - GI Upset 2 - Rash TRAMADOL 11/18/2024 8 - GI Upset VITAMIN E 04/02/2012 2 - Rash 16 - Unknown 14 - Other: See Comments AZITHROMYCIN 04/02/2012 9 - Itching 2 - Rash ZONISAMIDE 12/10/2022 2 - Rash Date Reviewed: 11/18/2024 Reviewed by: Mimi Meade APRN.MEASURER - Fully Assessed Reason for Visit: [facility] Paperwork [[id number]] Prescriptions as of 12/01/2024 - pregabalin (LYRICA) 150 mg capsule Take 150 mg by mouth once daily. - QUEtiapine (SEROQUEL) 25 mg tablet Take 25 mg by mouth daily at bedtime. - potassium chloride 20 mEq TbER Take by mouth once daily. - ipratropium-albuterol (DUONEB) 0.5 mg-3 mg(2.5 mg base)/3 mL nebu Inhale 3 mL as instructed every 6 hours as needed for wheezing/shortness of breath. - HYDROMET 5-1.5 mg/5 mL syrup Take 5 mL by mouth every 6 hours as needed for cough. - benzonatate (TESSALON PERLE) 100 mg capsule Take 100 mg by mouth two times a day as needed for cough. - albuterol (PROVENTIL) 2.5 mg /3 mL (0.083 %) nebulizer solution Use 2.5 mg via nebulizer every 6 hours as needed for wheezing/shortness of breath. - VENTOLIN HFA 90 mcg/actuation inhaler Inhale 1 puff as instructed every 6 hours as needed. - nabumetone (RELAFEN) 500 mg tablet 500 mg. - pramipexole (MIRAPEX) 0.125 mg tablet TAKE [...] mg subcutaneously one time a week. - carbidopa-levodopa (SINEMET 10-100) 10-100 mg per tablet 1 tablet daily at bedtime. Problem List As Of Date 12/01/2024 Noted Resolved NO SHOW [] 12/09/2014 Right ankle pain [M25.571] 06/03/2015 Pain in right foot [M79.671] 06/03/2015 Lisfranc dislocation [S93.326A] 06/03/2015 DJD (degenerative joint disease), ankle and mae*06/23/2015 PTTD (posterior tibial tendon dysfunction) [M76*06/23/2015 Morbid obesity (HCC) [E66.01] 06/23/2015 Dry eye syndrome of bilateral lacrimal glands [*12/23/2023 Type 2 diabetes mellitus without retinopathy (H*12/23/2023 Bilateral presbyopia [H52.4] 12/23/2023 S/P lumpectomy, left breast [Z98.890] 08/31/2024 De Quervain's tenosynovitis, left [M65.4] 08/31/2024 Primary osteoarthritis of first carpometacarpal* Asthma (HCC) [J45.909] 11/17/2024 Sleep apnea [G47.30] 11/17/2024 Current smoker [F17.200] 11/17/2024 Kidney stones [N20.0] 11/17/2024 Migraine [G43.909] 01/11/2024 Bipolar 1 disorder (HCC) [F31.9] 11/18/2024 Restless legs [G25.81] 11/18/2024 Mass of breast [N63.0] 11/18/2024 Posttraumatic stress disorder [F43.10] 11/18/2024 Encounter Status:Closed by NYA ELLSWORTH on 12/01/24 Normal [facility] HISTORY PHYSICALon HISTORY PHYSICAL HNO ID: [id number] Author: MIMI MEADE APRN.GERARDO Service: ? Author Type: Nurse Practitioner Type: H&P Filed: 11/18/2024 08:23 Note Text: HISTORY AND PHYSICAL EXAMINATION SERVICE DATE: 11/18/2024 SERVICE TIME: 7:53 AM PRIMARY CARE PHYSICIAN: Brigida Nobles CNP REASON FOR VISIT: Lisa Mendez is a 49 year old female who is scheduled for Left - ARTHROPLASTY CARPOMETACARPAL JOINTS Left - INCISION EXTENSOR TENDON SHEATH WRIST Left - TRANSFER TENDON, CARPOMETACARPAL OR DORSUM HAND; W/O FREE GRAFT, EACH Left - METACARPAL PHALANGEAL PINNING at the request of Dr. Kwame Mcneil for consultation. My final recommendation will be communicated back to the requesting physician by way of shared medical record or letter. Assessment Migraine Assessment: controlled, stable on med Bipolar 1 disorder (HCC) Assessment: stable on meds, follows with specialist, denies SI/HI Morbid obesity (HCC) Assessment: Body mass index is 42.18 kg/m?. Type 2 diabetes mellitus without retinopathy (HCC) Assessment: Currently taking metformin, trulicity, injects Trulicity on Mondays, will skip doses on 11/30/24, 12/07/24, resume after surgery which is currently scheduled on 12/07/2024 Patient is aware that glucose must be <200 day of surgery A1C 06/17/24 5.8 [facility] Kidney stones Assessment: h/o stones. No current issues Asthma (HCC) Assessment: stable and asymptomatic, uses inhalers. No recent URI. Lungs clear to auscultation Denies use of supplemental oxygen Today, 98% on RA Current smoker Assessment: vapes daily. Nicotine, thc, cbd Agrees to abstain for 7 days prior to surgery Sleep apnea Assessment: cannot tolerate CPAP Restless legs Assessment: stable on sinemet Posttraumatic stress disorder Assessment: denies panic in hospital setting S/P lumpectomy, left breast Assessment: states benign breast mass ANESTHESIA FINDINGS: Intubation History: No history of difficult intubation Significant Anesthesia Considerations: none Airway History: No history of difficult airway Gibbs Activity Status Index: METS: Walk indoors, such as around the house (1.75 METs) Do light work around the house, such as dusting or washing dishes (2.70 METs) Take care of self; that is eating, dressing, bathing, using the toilet (2.75 METs) Do moderate work around the house, such as vacuuming, sweeping floors, or carrying in groceries (3.50 METs) DASI Score: 10.7 (Limited by pain, as opposed to lung capacity) Clinical Frailty Scale: 2. Well STOP-Bang Score: BMI greater than 35 kg/m2 Denies snoring loudly Denies feeling tired, fatigued, or sleepy during the daytime Has not been observed to stop breathing or choking/gasping during sleep Denies having high blood pressure Patient 50 years old or younger Does not have a large neck Non-male patient STOP-Bang Score: 1 [id number] Score: Age: <65 Sex: female CHF history: No Hypertension history: No Stroke/TIA/thromboembolis m history: No Vascular disease history: No Diabetes history: Yes [id number] Score: 2 ARISCAT Score: Age: <=50 Preoperative SpO2: >=96% Respiratory infection in the last month: No Duration of surgery: >3 hrs Emergency procedure: No ARISCAT Score: Airway 06/24/23 Airway not difficult General Information and Staff Patient location during procedure: OR Anesthesiologist: Tyler Wylie MD Resident/SPOOL FIXER/CAA: Olivier Stephens MD Performed: resident/SPOOL FIXER/CAA and anesthesiologist Indications and Patient Condition Indications for airway management: anesthesia Spontaneous ventilation: present Sedation level: deep Preoxygenated: yes Mask difficulty assessment: 0 - not attempted Planned trial extubation Final Airway Details Final airway type: supraglottic airway I - PHYSICAL EVALUATION AIRWAY Patient intubated: No. Tracheostomy tube not present Mallampati: II. TM distance: >3 FB. Neck ROM: full ROM without neurological symptoms. Mouth opening: adequate. Short neck: no. Thick neck: no Chandler present: no Lip Bite Test: II Microretrognathia/Microna gthia/Recessed Chin: No DENTAL Dental findings: missing tooth/teeth. II - ANESTHESIA PLAN Anesthetic plan additional comments: *PACC/TCI - anesthesia choice. Beta Torri Monitoring Plan Post Procedure Analgesic Plan Prepared for surgery: This patient is optimally prepared for surgery. CONSULTS: Patient does not require consults for optimization at this time. The Following Tests/Procedures Have Been Initiated: Labs not indicated per PACC protocol, EKG not indicated per PACC protocol Planned Anesthetic: Per anesthesia choice Subjective CHIEF COMPLAINT: H/O thumb surgery [Z98.890] Primary osteoarthritis of first carpometacarpal joint of left hand [M18.12] De Quervain's tenosynovitis [M65.4] HPI: Patient is a 49 year old FEMALE presenting for pre-op evaluation for the above procedure. Patient denies any chest p (more content not included)... Normal [facility] Chuck 11-06-2024 FLORESITA Telephone (LOORRM) ----- LISA MENDEZ ([id number]) 1975 F Date Time Provider Department 11/06/24 KWAME MCNEIL During your visit today, we recorded the following information about you: Alina Gardner 11/06/2024 2:54 PM Signed ----- Message from Mode Mcclain RN sent at 11/06/2024 11:53 AM EDT ----- Regarding: Surgery Please make a post operative appointment 10-14 days after surgery date with Aline Hammonds PA-C. Please make a post operative appointment 6 weeks after surgery with Dr Mcneil. Where: [place] Date: 12/07/2024 Procedure: Left thumb revision carpometacarpal arthroplasty with slip of abductor pollicis longus tendon and internal brace with suture anchors; left first dorsal compartment release; extensor pollicis brevis transfer and thumb metacarpal phalangeal pinning Code: 00260, 96359, 70786, 15244 Anesthesia: General, block Dx: Z98.890, M18.12, M65.4 Implant to come out: Special request: mini C arm, Arthrex APL suspension with internal brace Time: 3 hours 1st PO cast room, XR, Aline, 2nd PO cast room, XR, Dr. Mcneil, OT Alina Gardner 11/06/2024 2:56 PM Signed Spoke with patient and scheduled pre/post op appointments. Alina Gardner 12/15/2024 10:45 AM Signed Please reschedule surgery to 01/07/[address] [place] [address] Mcneil. Received: Today Alina Gardner [facility] [place]; Alina Gardner Please reschedule surgery to 01/07/[address] [place] [address] Mcneil. Thank you, Alina Sales 12/15/2024 10:46 AM Signed Spoke with patient and rescheduled surgery for 01/07/25 in [place]. Scheduled pre.post op appointments. Allergies As of Date: 11/06/2024 Noted Allergy Reaction ALOE VERA 04/02/2012 14 [...] - Itching 2 - Rash Date Reviewed: 10/28/2024 Reviewed by: Luis Mathew DO - Fully Assessed Reason for Visit: Surgical Followup [104] Prescriptions as of 12/15/2024 - clindamycin (CLEOCIN) 300 mg capsule Take 300 mg by mouth three times a day. - pregabalin (LYRICA) 150 mg capsule Take 150 mg by mouth once daily. - QUEtiapine (SEROQUEL) 25 mg tablet Take 25 mg by mouth daily at bedtime. - potassium chloride 20 mEq TbER Take by mouth once daily. - ipratropium-albuterol (DUONEB) 0.5 mg-3 mg(2.5 mg base)/3 mL nebu Inhale 3 mL as instructed every 6 hours as needed for wheezing/shortness of breath. - HYDROMET 5-1.5 mg/5 mL syrup Take 5 mL by mouth every 6 hours as needed for cough. - benzonatate (TESSALON PERLE) 100 mg capsule Take 100 mg by mouth two times a day as needed for cough. - albuterol (PROVENTIL) 2.5 mg /3 mL (0.083 %) nebulizer solution Use 2.5 mg via nebulizer every 6 hours as needed for wheezing/shortness of breath. - VENTOLIN HFA 90 mcg/actuation inhaler Inhale 1 puff as instructed every 6 hours as needed. - nabumetone (RELAFEN) 500 mg tablet 500 mg. - pramipexole (MIRAPEX) 0.125 mg tablet TAKE [...] mg subcutaneously one time a week. - carbidopa-levodopa (SINEMET 10-100) 10-100 mg per tablet 1 tablet daily at bedtime. Problem List As Of Date 11/06/2024 Noted Resolved NO SHOW [185685] 12/09/2014 Right ankle pain [M25.571] 06/03/2015 Pain in right foot [M79.671] 06/03/2015 Lisfranc dislocation [S93.326A] 06/03/2015 DJD (degenerative joint disease), ankle and mae*06/23/2015 PTTD (posterior tibial tendon dysfunction) [M76*06/23/2015 Morbid obesity (HCC) [E66.01] 06/23/2015 Dry eye syndrome of bilateral lacrimal glands [*12/23/2023 Type 2 diabetes mellitus without retinopathy (H*12/23/2023 Bilateral presbyopia [H52.4] 12/23/2023 H/O thumb surgery [Z98.890] 08/31/2024 De Quervain's tenosynovitis, left [M65.4] 08/31/2024 Primary osteoarthritis of first carpometacarpal* Encounter Status:Closed by ALINA GARDNER on 11/06/24 Normal [facility] No Panel InformationOrdered By: Josr Fuentes on 11-05-2024 [facility] [place] [address] [place] [address] Cardiac Stress Test Signed Patient: Lisa Mendez MR#: [id number] : 1975 Date of Service:0 11/05/24 Age/Sex: 49 / F ADM Date: 5 Loc: Room: Type: [facility] Attending Dr: Brigida Corea APRN, CYTOGENETICS LABORATORY MANAGER-C Copies to: Brigida Corea APRN, CYTOGENETICS LABORATORY MANAGER-C Josr Fuentes MD~ ORDERING PHYSICIAN: JORGE Corea INDICATION FOR STUDY/DIAGNOSIS: Intermittent chest pain, dyspnea on exertion. PROCEDURE: After informed consent was obtained, the patient exercised?3 minutes and 16 seconds on a Cedric protocol to his/her maximum tolerated exercise capacity.? The peak heart rate achieved was 171 which was 99% of the age predicted maximum. The test was stopped due to shortness of breath. Patient was significantly short of breath at the start of the test. She developed chest pain after 1 minute of exercise which resolved with rest. She reports similar symptoms at home. She remained short of breath after the test. The peak blood pressure was 150/90 mmHg. The estimated peak oxygen consumption was 4.9 METs. Lower limit of average functional capacity in METs (Women/Men): <30yrs 05/15, 30-39yrs /, 40-49yrs 8/8.5, 50-59yrs 7/8, >60yrs 6/7 The overall assessment of the patient's functional capacity is abnormal/low. The baseline ECG revealed sinus rhythm, nonspecific T wave changes. During exercise and recovery there were no ST-T changes suggestive of ischemia. There were no significant dysrhythmias noted during the test. Gibbs Treadmill Score was +3. Low risk (score >= 5) indicates a 5-year survival of 97%. Intermediate risk (score between 4 and -11) indicates 5-year survival of 90%. High risk (score < -11) indicates 5-year survival of 65%. CONCLUSION: 1. Negative ECG exercise stress test. 2. Significant shortness of breath before, during and after stress test. She developed chest pain during stress which resolved with rest. 3. No significant dysrhythmia during stress. 4. Hemodynamic response was appropriate. 5. Functional capacity was abnormal/low. 6. Intermediate risk Gibbs Treadmill Score. Transcribed By: leighann 11/05/24 153 Dictated By: Josr Fuentes MD 11/05/24 153 Signed By: 11/05/24 9410 [facility] Work Phone: CNOVon 10-28-2024 CNOV Office Visit (LOORRM ) ----- LISA MENDEZ ([id number]) 1975 F Date Time Provider Department 10/28/24 1:45 PM LUIS MATHEW LOORRM During your visit today, we recorded the following information about you: Luis Mathew DO 10/28/2024 2:56 PM Signed Lisa Mendez is a patient of Brigida Nobles CNP. CHIEF COMPLAINT: Lisa Mendez is a 49 year old female who presents today for new evaluation of left knee. HISTORY OF PRESENT ILLNESS: PAIN EVALUATION 10/28/2024 1237 10/28/2024 1348 Pain Level: 5 5 Pain Location: Knee-Left Knee-Left Description: Aching;Numbness Aching;Sore Duration Amount of Time: -- 5 Duration Units: -- Years Frequency: -- Continuous Intervention/Comfort measure: -- Medication;Cold;Exercise; Heat Comments: -- left total replacement 2020 Location of pain: left knee History of TKA in 2020 Has had issues since the surgery Complains of pain and swelling in the knee Has had attempted aspirations to no avail Has been told by OSH that did the TKA, there are no issues PHYSICAL EXAMINATION: Knee Examination Left Knee Skin Mild swelling overall Effusion No effusion Alignment normal Range of motion Slight decreased, due to pain Quadriceps examination full (5/5) quadriceps strength bilaterally, however there is bilateral VMO atrophy noted Patellar examination Normal patellar mobility Tenderness diffuse IMAGING: Final results and radiologist's interpretation, available in the [facility] health record. Images were reviewed with the patient/family members in the office today. My personal interpretation of the performed imaging is no acute abnormality. CLINICAL IMPRESSION / ASSESSMENT: (T84.84XA, Z96.659) Pain due to total knee replacement, initial encounter (HCC) (HCC) (primary encounter diagnosis) RECOMMENDATION / PLAN: Labs ordered- sed rate and CRP Consult with surgical partner to review the knee Scheduled with partner prior to leaving office Procedures Verbal health education was given to patient. Patient verbalizes understanding and agrees with the treatment plan as detailed above. DO Priaynka Calvin Vikas D, DO 10/28/2024 1:[address] Preethi Lancaster for left knee issues Allergies As of Date: 10/28/2024 Noted Allergy Reaction ALOE VERA 04/02/2012 14 [...] - Itching 2 - Rash Date Reviewed: 10/28/2024 Reviewed by: Luis Mathew DO - Fully Assessed Reason for Visit: New [912058] Left Knee Pain [1208] Primary Visit Diagnosis:Pain due to total knee replacement, initial encounter ([facility]) ([facility]) [T84.84XA, Z96.659] Order(s):SEDIMENTATION RATE, WESTERGREN [SQWSR] Order #: [id number] FUTURE C-REACTIVE PROTEIN [SQCRP] Order #: [id number] FUTURE CONSULT TO ORTHOPAEDIC SURGERY [19990905] Order #: [id number]: 1 FUTURE Prescriptions as of 10/28/2024 - pantoprazole DR (PROTONIX) 40 mg tablet TAKE 1 TABLET BY MOUTH 2 TIMES A DAY 30 MINUTES prior to meals - nabumetone (RELAFEN) 500 mg tablet 500 mg. - pramipexole (MIRAPEX) 0.125 mg tablet TAKE [...] mg subcutaneously one time a week. - ibuprofen (MOTRIN) 800 mg tablet - carbidopa-levodopa (SINEMET 10-100) 10-100 mg per tablet 1 tablet daily at bedtime. Problem List As Of Date 10/28/2024 Noted Resolved NO SHOW [] 12/09/2014 Right ankle pain [M25.571] 06/03/2015 Pain in right foot [M79.671] 06/03/2015 Lisfranc dislocation [S93.326A] 06/03/2015 DJD (degenerative joint disease), ankle and mae*06/23/2015 PTTD (posterior tibial tendon dysfunction) [M76*06/23/2015 Morbid obesity (HCC) [E66.01] 06/23/2015 Dry eye syndrome of bilateral lacrimal glands [*12/23/2023 Type 2 diabetes mellitus without retinopathy (H*12/23/2023 Bilateral presbyopia [H52.4] 12/23/2023 H/O thumb surgery [Z98.890] 08/31/2024 De Quervain's tenosynovitis, left [M65.4] 08/31/2024 Primary osteoarthritis of first carpometacarpal* (more content not included)... 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 Please advise. Mode Mcneil RN 10/28/2024 4:18 PM Addendum Called and spoke with patient, patient clarified that her job involves lifting and carrying heavier objects, informed patient that she will be kept of work then for 5 months after surgery, patient understood. Allergies As of Date: 10/28/2024 Noted Allergy Reaction ALOE VERA 04/02/2012 14 [...] - Itching 2 - Rash Date Reviewed: 10/28/2024 Reviewed by: Luis Mathew, - Fully Assessed Reason for Visit: Patient Question [6157] Prescriptions as of 10/28/2024 - pantoprazole DR (PROTONIX) 40 mg tablet TAKE 1 TABLET BY MOUTH 2 TIMES A DAY 30 MINUTES prior to meals - nabumetone (RELAFEN) 500 mg tablet 500 mg. - pramipexole (MIRAPEX) 0.125 mg tablet TAKE [...] mg subcutaneously one time a week. - ibuprofen (MOTRIN) 800 mg tablet - carbidopa-levodopa (SINEMET 10-100) 10-100 mg per tablet 1 tablet daily at bedtime. Problem List As Of Date 10/28/2024 Noted Resolved NO SHOW [751695] 12/09/2014 Right ankle pain [M25.571] 06/03/2015 Pain in right foot [M79.671] 06/03/2015 Lisfranc dislocation [S93.326A] 06/03/2015 DJD (degenerative joint disease), ankle and mae*06/23/2015 PTTD (posterior tibial tendon dysfunction) [M76*06/23/2015 Morbid obesity (HCC) [E66.01] 06/23/2015 Dry eye syndrome of bilateral lacrimal glands [*12/23/2023 Type 2 diabetes mellitus without retinopathy (H*12/23/2023 Bilateral presbyopia [H52.4] 12/23/2023 H/O thumb surgery [Z98.890] 08/31/2024 De Quervain's tenosynovitis, left [M65.4] 08/31/2024 Primary osteoarthritis of first carpometacarpal* Encounter Status:Closed by MODE MCNEIL on 10/28/24 Normal [facility] CRP SerPl-mCncon 10-28-2024 CRP [Mass/Vol] 0.5 mg/dL Normal <0.9 [facility] Comment on above: Order Comment: Speci men Type: BLOOD SPECIMENOrdering Facility: [facility] Address: [address] [place] [address] Performed By: #### 1 988-5 ####[facility] LAB[facility] [id number] [place] [address] [place] ESR Westergren method (Bld) [Velocity]on 10-28-2024 ESR (Bld) [Velocity] 29 mm/h High 0-20 [facility] Comment on above: Order Comment: Speci men Type: BLOOD SPECIMENOrdering Facility: [facility] Address: [address] [place] [address] Performed By: #### 4 537-7 ####[facility] LABCLIA [id number] [facility] [place] [address] [place] XR KNEE 4V AP/PA BOTH+LAT/ME R LTon 10-28-2024 XR KNEE 4V AP/PA BOTH+LAT/BRIAN LT * * *Final Report* * * DATE OF EXAM: Oct 28 2024 3:01PM LZX 5202 - XR KNEE 4V AP/PA BOTH+LAT/BRIAN LT / PROCEDURE REASON: Acute pain of left knee * * * * Physician Interpretation * * * * EXAMINATION / TECHNIQUE: XR KNEE 4V AP/PA BOTH+LAT/BRIAN LT PATIENT/TECHNOLOGIST PROVIDED HISTORY: f/u lt knee replacement CLINICAL INFORMATION ( PROVIDED BY ORDERING CLINICIAN) : Acute pain of left knee COMPARISON: None RESULT: Left total knee arthroplasty with intact hardware and expected postoperative alignment. No perihardware lucency to suggest loosening or infection. No acute fracture or dislocation. No significant joint effusion. Comparison images of the right knee demonstrate a grossly uncomplicated total knee prosthesis. IMPRESSION: Left total knee arthroplasty without hardware complication. 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: ABEB Transcribe Date/Time: Oct 28 2024 3:36P Dictated by : WILMAN COELLO MD This examination was interpreted and the report reviewed and electronically signed by: EDILIA DURÁN MD on Oct 28 2024 4:04PM EST [id number] Normal [facility] XR Knee - left 4 Viewson IMPRESSION: Left total knee arthroplasty without hardware complication. 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: PSCB Transcribe Date/Time: Oct 28 2024 3:36P Dictated by : WILMAN COELLO MD This examination was interpreted and the report reviewed and electronically signed by: EDILIA DURÁN MD on Oct 28 2024 4:04PM EST DIVISION OF RADIOLOGY * * *Final Report* * * DATE OF EXAM: Oct 28 2024 3:01PM LZX 5202 - XR KNEE 4V AP/PA BOTH+LAT/BRIAN LT / PROCEDURE REASON: Acute pain of left knee * * * * Physician Interpretation * * * * EXAMINATION / TECHNIQUE: XR KNEE 4V AP/PA BOTH+LAT/BRIAN LT PATIENT/TECHNOLOGIST PROVIDED HISTORY: f/u lt knee replacement CLINICAL INFORMATION ( PROVIDED BY ORDERING CLINICIAN) : Acute pain of left knee COMPARISON: None RESULT: Left total knee arthroplasty with intact hardware and expected postoperative alignment. No perihardware lucency to suggest loosening or infection. No acute fracture or dislocation. No significant joint effusion. Comparison images of the right knee demonstrate a grossly uncomplicated total knee prosthesis. DIVISION OF RADIOLOGY Provider, [facility] - 10/28/2024 * * *Final Report* * * DATE OF EXAM: Oct 28 2024 3:01PM LZX 5202 - XR KNEE 4V AP/PA BOTH+LAT/BRIAN LT / PROCEDURE REASON: Acute pain of left knee * * * * Physician Interpretation * * * * EXAMINATION / TECHNIQUE: XR KNEE 4V AP/PA BOTH+LAT/BRIAN LT PATIENT/TECHNOLOGIST PROVIDED HISTORY: f/u lt knee replacement CLINICAL INFORMATION ( PROVIDED BY ORDERING CLINICIAN) : Acute pain of left knee COMPARISON: None RESULT: Left total knee arthroplasty with intact hardware and expected postoperative alignment. No perihardware lucency to suggest loosening or infection. No acute fracture or dislocation. No significant joint effusion. Comparison images of the right knee demonstrate a grossly uncomplicated total knee prosthesis. IMPRESSION IMPRESSION: Left total knee arthroplasty without hardware complication. 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: FELICIA Transcribe Date/Time: Oct 28 2024 3:36P Dictated by : WILMAN COELLO MD This examination was interpreted and the report reviewed and electronically signed by: EDILIA DURÁN MD on Oct 28 2024 4:04PM EST [facility] Radiology Study observation (narrative) [facility] XR Knee - left 4 ViewsOrdere d By: Ccf Provider on 10-28-2024 [facility] CTA Cheston 10-27-2024 CTA Chest Exam Date/Time: 10/26/2024 23:45 EDT Reason for Exam: Shortness of breath (SOB) Report IMPRESSION: NO PULMONARY EMBOLISM OR ACUTE INTRATHORACIC PROCESS. EXAM: CTA Chest History: Shortness of breath. Cough. Technique: Multiple axial images were obtained of the thorax from the thoracic inlet through the upper abdomen With IV contrast. Multiplanar reformats were obtained including coronal maximum intensity projection images (MIPS). Unless otherwise stated, incidental findings identified in this report do not require routine follow-up imaging. Comparison: Radiographs performed earlier on the same date Findings: Visualized portion of the thyroid gland is within normal limits. No axillary, mediastinal, or hilar lymphadenopathy. No thoracic aortic aneurysm or dissection. No pulmonary embolism. Heart size is within normal limits. No significant pericardial effusion. No coronary artery calcifications noted. Esophagus is within normal limits. No pulmonary nodule or mass. No consolidation, pleural effusion, or pneumothorax. Visualized upper abdomen demonstrates no acute abnormality. No acute osseous abnormality. All CT scans at this facility use dose modulation, iterative reconstruction, and/or weight based dosing when appropriate to reduce radiation dose to as low as reasonably achievable. Technical Comments: GFR (mL/min/1/73m2) n/a-age Contrast: Isovue 370 Contrast amount in ml's: 69.00 Report Ordering Provider: Lyndon Gallardo FINAL REPORT Dictated: 10/27/2024 8:31 am Holland Tse DO Signed (Electronic Signature): 10/27/2024 8:31 am Signed by: Holland Tse DO Transcribed by: HARSHAD Technologist: MUNA Sorto [facility] ED Clinical Summaryon 2024 ED Clinical Summary ED Clinical Summary [place] [address] ED Clinical Summary Person Information Name: LISA MENDEZ [facility] Age: 49 Years : 1975 Sex: Female Language: [place] Citizen PCP: BRIGIDA COREA CNP Marital Status: Visit Id: Visit Reason: Medical problem - minor; Cough; Respiratory problem; SOB, STATES SHES BEEN SICK SINCE THE BEGINNING OF THE YEAR. Speciality: Acuity: 3 Enc Type: Emergency Med Service: Emergency Arrival: 10/26/2024 21:10:36 Discharge: 10/27/2024 01:20:06 LOS: 000 04:10 Checkin: 10/26/2024 21:10:36 Checkout: 10/27/2024 01:20:06 Dispo Type: Home (Routine DC) EVENTS: Event Name Event Status Request Date/Time Start Date/Time Complete Date/Time Arrive Complete 10/26/2024 21:10:36 10/26/2024 21:10:36 10/26/2024 21:10:36 Document Home Meds Request 10/26/2024 21:10:36 Triage Complete 10/26/2024 21:10:36 10/26/2024 21:21:49 10/26/2024 21:21:49 Bed Assign Complete 10/26/2024 21:26:10 10/26/2024 21:26:10 10/26/2024 21:26:10 Dr Exam Complete 10/26/2024 21:26:10 10/26/2024 22:01:36 10/26/2024 22:01:36 RN Exam Complete 10/26/2024 21:26:10 10/26/2024 22:10:02 10/26/2024 22:10:02 Registration Complete 10/26/2024 22:01:36 10/26/2024 22:26:51 10/26/2024 22:26:51 EKG Complete 10/26/2024 22:23:04 10/26/2024 23:01:32 Pending Labs Complete 10/26/2024 22:23:04 10/27/2024 00:26:36 Lab Complete 10/26/2024 22:23:04 10/26/2024 23:18:22 Patient Care Request 10/26/2024 22:23:04 RT Request 10/26/2024 22:23:04 X-Ray Complete 10/26/2024 22:23:04 10/26/2024 22:45:04 10/26/2024 22:46:55 Meds Admin Complete 10/26/2024 22:24:14 10/26/2024 22:57:06 RT Tx/ABG Complete 10/26/2024 22:24:15 10/26/2024 22:48:09 10/26/2024 22:48:09 RT Tx/ABG Complete 10/26/2024 22:24:15 10/26/2024 22:48:05 10/26/2024 22:48:05 Reg Complete Request 10/26/2024 22:26:51 Reg Bed Request Complete 10/26/2024 22:26:51 10/26/2024 22:26:51 10/26/2024 22:26:51 Pending Labs Complete 10/26/2024 22:41:57 10/26/2024 22:41:57 10/26/2024 23:07:52 Lab Complete 10/26/2024 22:41:57 10/26/2024 22:41:57 10/26/2024 23:07:52 Wet Read Request 10/26/2024 22:46:55 CT Complete 10/26/2024 23:19:03 10/26/2024 23:42:43 10/26/2024 23:45:54 Meds Admin Complete 10/26/2024 23:56:12 10/27/2024 00:14:35 RT Tx/ABG Request 10/26/2024 23:56:13 RT Tx/ABG Request 10/26/2024 23:56:13 Possible SIRS Request 10/27/2024 00:40:46 Discharge Complete 10/27/2024 01:13:03 10/27/2024 01:20:13 10/27/2024 01:20:13 Transfer Complete 10/27/2024 01:20:13 10/27/2024 01:20:13 10/27/2024 01:20:13 ADDRESS: [address] [place] [address] [address] [facility] [id number] PHYS DOC NOTES: MEDICAL INFORMATION: Prescriptions Given: New Medications [facility], [address] [facility] [place], [place] [id number], [phone] albuterol (albuterol 0.083% Inh Valeria 3 mL) 3 Milliliter Nebulized inhalation (aerosol) every 6 hours as needed wheezing/shortness of breath. Refills: 0. predniSONE (predniSONE 50 mg Tab) 1 Tablets By Mouth every day for 5 Days. Refills: 0. PATIENT EDUCATION INFORMATION: Instructions: Asthma, Adult; Asthma Attack Follow up: With: Address: When: Bernice Mckee. [address], [facility] [place] [id number] [phone] Business (1) In 3 days 10/30/2024 Comments: Make sure to follow-up with Dr. North, the pulmonary doctor as discussed. Return to the emergency room if your shortness of breath recurs or any new symptoms. With: Address: When: BRIGIDA COREA [address] [facility] [address] [place] [phone] FaceTags (1) In 3 days DIAGNOSIS: 1:Acute asthma exacerbation Normal [facility] ED Note-Physicianon 10-28-19 ED Note-Physician ED Note-Physician Basic Information Time Seen: Lyndon Gallardo M.D. 10/26/2024 22:01 Chief Complaint pt arrives for c/o respiratory issue cough since the beginning of the year. pt states she has been seen numerous times by [facility] ED, and pcp. dx with asthma execerbation and bronchitis. History of Present Illness The patient is a 49-year-old female past medical history of asthma who presented to the emergency room with cough, shortness of breath. The patient states she has been having frequent exacerbation of her asthma since August. The patient states recently her shortness of breath started over the weekend. The patient states she was seen at [facility] who put her on prednisone. The patient states this is the third day and prednisone. She reports some chest tightness as well. The patient reports cough with white sputum. She denies any fever. She reports some chills. The patient denies any nausea, denies any vomiting. The patient denies any abdominal pain. The patient denies any sore throat. The patient denies any other associated symptoms. Review of Systems Additional ROS info: Except as noted in the above Review of Systems and in the History of Present Illness all other systems have been reviewed and are negative or noncontributory. Physical Exam Vitals & Measurements T: 36.4 ???C(Oral) HR: 108(Monitored) RR: 28 BP: 141/57 SpO2: 94% HT: 160 cm WT: 105 kg BMI: 41.02 General: alert, mild distress Skin: warm, dry Head: no trauma, normocephalic Neck: Trachea midline, no tenderness, supple Eye: normal conjunctiva, sclera clear, PERRL, EOMI, vision unchanged ENMT: Oral mucosa moist, no pharyngeal erythema or exudate Cardiovascular: regular rate and rhythm Respiratory: Lungs wheezing bilateral, respirations non labored, breath sounds equal Gastrointestinal: soft, non distended, no tenderness, no guarding Extremities: no deformity, no trauma Neurological: Alert and oriented, speech normal, no focal neuro deficits Psychiatric: cooperative, affect appropriate for age, Medical Decision Making MEDICAL DECISION MAKING Number and Complexity of Problems Differential Diagnosis: [] [facility] Data External documents reviewed: [] My EKG interpretation: [] My CT interpretation: [] My X-ray interpretation: [] My Ultrasound interpretation: [] Decision rules/scores evaluated: [] Discussed with: [] Treatment and Disposition ED Course: The patient presented with shortness of breath. She states she has been having this shortness of breath since August on and off but mostly on. The patient is not on any inhaled corticosteroids or maintenance treatment for her asthma. The patient reported some chest pain. Blood work reviewed. The chest x-ray shows no acute cardiopulmonary disease. D-dimer is elevated. CT angiography of the chest shows no acute cardiopulmonary disease. The patient has wheezing on exam. She was given breathing treatment, Solu-Medrol, magnesium and her wheezing improved. Will discharge patient home with prescription for albuterol nebulizer and prednisone. Will have her follow-up with pulmonary. The patient was instructed to return to the emergency room if her shortness of breath recurs or any new symptoms. Shared decision making: Patient and her Assessment/Plan 1. Acute asthma exacerbation (J45.901: Unspecified asthma with (acute) exacerbation) Orders: albuterol, 2.5 mg, 3 mL, NEB, q6hr wheezing/shortness of breath, 25 EA, Refill(s) 0, [facility], 160, cm, 10/26/24 21:21:00 EDT, Height/Length Dosing, 105, kg, 10/26/24 21:21:00 EDT, Weight Dosing albuterol-ipratropium, 3 mL, Soln-Inh, Inhalation, Once, Stop date 10/26/24 23:55:00 EDT, STAT, Start date 10/26/24 23:55:00 EDT albuterol-ipratropium, 3 mL, Soln-Inh, Inhalation, Once, Stop date 10/26/24 22:23:00 EDT, STAT, Start date 10/26/24 22:23:00 EDT magnesium sulfate + Generic Diluent 50 mL, 2 gram = 50 mL, IV Piggyback, Once, Stop date 10/26/24 22:23:00 EDT, STAT, Start date 10/26/24 22:23:00 EDT, 100 mL/hr, Infuse over 30 minute(s), 10/26/24 22:23:00 EDT methylPREDNISolone, 125 mg = 2 mL, Injection, IV Push, Once, Stop date 10/26/24 22:23:00 EDT, STAT, Start date 10/26/24 22:23:00 EDT, 10/26/24 22:23:00 EDT predniSONE, 50 mg = 1 tab(s), Oral, Daily, X 5 day(s), # 5 tab(s), Refills(s) 0, Pharmacy: [facility], 160, cm, 10/26/24 21:21:00 EDT, Height/Length Dosing, 105, kg, 10/26/24 21:21:00 EDT, Weight Dosing B-Type Natriuretic Peptide Basic Metabolic Panel CBC w/ Auto Diff CTA Chest D-Dimer ECG 12 Lead Adult ED Cardiac Monitoring eGFR Magnesium Level Oxygen Saturation Oxygen Therapy PT & PTT Saline Lock Insert Troponin 0 Hr. Troponin 1 Hr. XR Chest 2 Views Medications Administered Given DuoNeb 2.5 mg-0.5 mg/3 mL Soln-Inh, 3 mL, Inhalation DuoNeb 2.5 mg-0.5 mg/3 mL Soln-Inh, 3 mL, Inhalation magnesium additive 2 gm + premix generic diluent 50 mL, IV Piggyback (more content not included)... Normal [facility] Comment on above: Result Comment: Elec tronically Signed By: Lyndon Gallardo M.D.\.br\Date and Time Signed: 10/27/24 04:38 EDT ED Patient Summaryon 025 ED Patient Summary ED Patient Summary [place] [id number] Patient Discharge Instructions Person Information Name: LISA MENDEZ Age: 49 Years Arrival Date: 10/26/2024 21:10:36 Discharge Diagnosis: 1:Acute asthma exacerbation Primary Care Physician: BRIGIDA COREA CNP Provider Information Primary Provider: Lyndon Gallardo M.D. Advanced Nps:None The exam and treatment you received in the Emergency Department were for an urgent problem and are not intended as complete care. It is important that you follow up with a doctor, nurse practitioner, or physician???s funeral assistant for ongoing care. If your symptoms become worse or you do not improve as expected and you are unable to reach your usual health care provider, you should return to the Emergency Department. We are available 24 hours a day. LISA MENDEZ has been given the following list of patient education materials, prescriptions and follow-up instructions: Follow-up Instructions: With: Address: When: Bernice North [address] [place] [address]. [address], [place] [address] [phone] Business (1) In 3 days 10/30/2024 Comments: Make sure to follow-up with Dr. North, the pulmonary doctor as discussed. Return to the emergency room if your shortness of breath recurs or any new symptoms. With: Address: When: BRIGIDA COREA [address] [facility] [address] [place] [phone] Business (1) In 3 days In the event that this physician does not participate in your insurance network, please consult with your insurance company to find a nearby participating provider. Patient Education Materials: Asthma, Adult; Asthma Attack A MESSAGE TO ALL PATIENTS REGARDING OPIOIDS PRESCRIPTION OPIOIDS: WHAT YOU NEED TO KNOW Prescription opioids can be used to help relieve lyfccgir-ml-jrzsdg pain and are often prescribed following a surgery or injury, or for certain health conditions. These medications can be an important part of the treatment but also come with serious risks. It is important to work with your healthcare provider to make sure you are getting the safest, most effective care. WHAT ARE THE RISKS AND SIDE EFFECTS OF OPIOID USE? Prescription opioids carry serious risks of addiction and overdose, especially with prolonged use. An opioid overdose, often marked by slowed breathing, can cause sudden . The use of prescription opioids can have a number of side effects as well, even when taken as directed: ??? Tolerance???meaning you might need to take more of the medication for the same pain relief ??? Physical dependence???meaning you have symptoms of withdrawal when a medication is stopped ??? Increased sensitivity to pain ??? Constipation ??? Nausea, vomiting, and dry mouth ??? Sleepiness and dizziness ??? Confusion ??? Depression ??? Low levels of testosterone that can result in lower sex drive, energy, and strength ??? Itching and sweating RISKS ARE GREATER WITH: ??? History of drug misuse, substance use disorder, or overdose ??? Mental health conditions (such as depression or anxiety) ??? Sleep apnea ??? Older age (65 years and older) ??? Avoid alcohol while taking prescription opioids. Also, unless specifically advised by your health care provider, medications to avoid include: ??? Benzodiazepines (such as Xanax or Valium) ??? Muscle relaxants (such as Soma or Flexeril) ??? Hypnotics (such as Ambien or Lunesta) ??? Other prescription opioids KNOW YOUR OPTIONS Talk to your health care provider about ways to manage your pain that don???t involve prescription opioids. Some of these options may actually work better and have fewer risks and side effects. Options may include: ??? Pain relievers such as acetaminophen, ibuprofen, and naproxen ??? Some medication that are also used for depression or seizures ??? Physical therapy and exercise ??? Cognitive behavioral therapy, a psychological, goal-directed approach, in which patients learn how to modify physical, behavioral, and emotional triggers of pain and stress. IF YOU ARE PRESCRIBED OPIOIDS FOR PAIN: ??? Never take opioids in greater amounts or more often than prescribed. ??? Follow up with your primary health care provider. o Work together to create a plan on how to manage your pain. o Talk about ways to help manage your pain that don???t involve prescription opioids. o Talk about any and all concerns and side effects. ??? Help prevent misuse and abuse o Never sell or share prescription opioids. o Never use another person???s prescription opioids. ??? Store prescription opioids in a secure place and out of reach of others (this may include visitors, children, friends, and family). ??? Safely dispose of unused prescription opioids: Find your community drug take-back program or your pharmacy mail-back program, or f (more content not included)... Normal [facility] Troponin 1 Hr.on 10-27-2024 Troponin HS 2.60 pg/mL Low 10.10-27.1 0 [facility] Comment on above: Order Comment: patie nt in [place] will check back 10/26/2024 23:37:27 EDT [id number] Result Comment: The 95% CI (Confidence Interval) PPV (Positive Predictive Value) for myocardial infarction in females is 38 pg/mL, in males 51 pg/mL. The results should be used in conjunction with clinical conditions of myocardial infarction. (Access High Sensitivity Troponin I Instructions For Use, Fred [place], March 2018) Performed By: #### 1 [id number] #### [facility] [address] [place] [address] XR Chest 2 Viewson XR Chest 2 Views Exam Date/Time: 10/26/2024 22:46 EDT Reason for Exam: Chest pain Report IMPRESSION: NO RADIOGRAPHIC EVIDENCE OF ACUTE INTRATHORACIC PROCESS. EXAMINATION: XR Chest 2 Views HISTORY: Chest pain TECHNIQUE: Frontal and lateral views of the chest. COMPARISON: None available FINDINGS: Cardiomediastinal silhouette is within normal limits. No pneumothorax, pleural effusion, or consolidation. No acute osseous abnormality. Ordering Provider: Lyndon Gallardo FINAL REPORT Dictated: 10/27/2024 8:12 am Holland Tse DO Signed (Electronic Signature): 10/27/2024 8:12 am Signed by: Holland Tse DO Transcribed by: HARSHAD Technologist: HAIDER Sorto [facility] BMPon 10-26-2024 Anion gap [Moles/Vol] 14 mmol/L Normal 6-16 [facility] Comment on above: Performed By: #### 2 [id number] #### [facility] [address] [place] [address] Calcium [Mass/Vol] 9.1 mg/dL Normal 8.9-11.1 [facility] Comment on above: Performed By: #### 2 [id number] #### [facility] [address] [place] [address] Chloride [Moles/Vol] 104 mmol/L Normal 101-111 [facility] Comment on above: Performed By: #### 2 [id number] #### [facility] [address] [place] [address] CO2 [Moles/Vol] 25 mmol/L Normal 21-31 [facility] Comment on above: Performed By: #### 2 [id number] #### [facility] [address] [place] [address] Creatinine [Mass/Vol] 0.6 mg/dL Normal 0.5-1.3 [facility] Comment on above: Performed By: #### 2 [id number] #### [facility] [address] [place] [address] Glucose [Mass/Vol] 167 mg/dL Normal 55-199 [facility] Comment on above: Performed By: #### 2 [id number] #### [facility] [address] [place] [address] Potassium [Moles/Vol] 3.6 mmol/L Normal 3.5-5.3 [facility] Comment on above: Performed By: #### 2 [id number] #### [facility] [address] [place] [address] Sodium [Moles/Vol] 139 mmol/L Normal 135-145 [facility] Comment on above: Performed By: #### 2 [id number] #### [facility] [address] [place] [address] Urea nitrogen [Mass/Vol] 16 mg/dL Normal 5-21 [facility] Comment on above: Performed By: #### 2 [id number] #### [facility] [address] [place] [address] Urea nitrogen/Creatinine [Mass ratio] 27 No Units High 10-20 [facility] Comment on above: Performed By: #### 2 [id number] #### [facility] [address] [place] [address] BNPon 10-26-2024 Natriuretic peptide B (Bld) [Mass/Vol] 10 pg/mL Normal 5-80 [facility] Comment on above: Performed By: #### 1 [id number] #### [facility] [address] [place] [address] CBC w/ Auto Diffon 5 Band form neutrophils/100 WBC (Bld) 14.0 % High 0.0-6.0 [facility] Comment on above: Performed By: #### 2 [id number] #### [facility] [address] [place] [address] Basophils (Bld) [#/Vol] 0.0 E9/L Normal 0.0-0.2 [facility] Comment on above: Performed By: #### 2 [id number] #### [facility] [address] [place] [address] Eosinophils (Bld) [#/Vol] 0.0 E9/L Normal 0.0-0.5 [facility] Comment on above: Performed By: #### 2 [id number] #### [facility] [address] [place] [address] Eosinophils/100 WBC (Bld) 0.0 % Normal 0.0-8.0 [facility] Comment on above: Performed By: #### 2 [id number] #### [facility] [address] [place] [address] Erythrocyte distribution width (RBC) [Ratio] 13.4 % Normal 10.9-14.2 [facility] Comment on above: Performed By: #### 2 [id number] #### [facility] [address] [place] [address] Hematocrit (Bld) [Volume fraction] 36.1 % Normal 34.0-46.0 [facility] Comment on above: Performed By: #### 2 [id number] #### [facility] [address] [place] [address] Hemoglobin (Bld) [Mass/Vol] 12.6 g/dL Normal 12.0-16.0 [facility] Comment on above: Performed By: #### 2 [id number] #### [facility] [address] [place] [address] Lymphocytes (Bld) [#/Vol] 2.1 E9/L Normal 1.0-4.0 [facility] Comment on above: Performed By: #### 2 [id number] #### [facility] [address] [place] [address] Lymphocytes/100 WBC (Bld) 18.0 % Normal 14.0-50.0 [facility] Comment on above: Performed By: #### 2 [id number] #### [facility] [address] [place] [address] MCH (RBC) [Entitic mass] 29.1 pg Normal 27.0-34.0 [facility] Comment on above: Performed By: #### 2 [id number] #### [facility] [address] [place] [address] MCHC (RBC) [Mass/Vol] 34.8 g/dL Normal 31.4-36.0 [facility] Comment on above: Performed By: #### 2 [id number] #### [facility] [address] [place] [address] MCV (RBC) [Entitic vol] 83.7 fL Normal 80.0-100.0 [facility] Comment on above: Performed By: #### 2 [id number] #### [facility] [address] [place] [address] Monocytes (Bld) [#/Vol] 1.1 E9/L High 0.2-1.0 [facility] Comment on above: Performed By: #### 2 [id number] #### [facility] [address] [place] [address] Neutrophils (Bld) [#/Vol] 8.6 E9/L Invalid Interpretation Code [facility] Comment on above: Performed By: #### 2 [id number] #### [facility] [address] [place] [address] Platelet mean volume (Bld) [Entitic vol] 7.1 fL Normal 6.4-10.8 [facility] Comment on above: Performed By: #### 2 [id number] #### [facility] [address] [place] [address] Platelets (Bld) [#/Vol] 296.0 E9/L Normal 150.0-500. 0 [facility] Comment on above: Performed By: #### 2 [id number] #### [facility] [address] [place] [address] RBC (Bld) [#/Vol] 4.3 E12/L Normal 4.3-5.9 [facility] Comment on above: Performed By: #### 2 [id number] #### [facility] [address] [place] [address] RBC size Nom (Bld) NORMAL Invalid Interpretation Code [facility] Comment on above: Performed By: #### 2 [id number] #### [facility] [address] [place] [address] Segmented neutrophils/100 WBC (Bld) 59.0 % Normal 36.0-75.0 [facility] Comment on above: Performed By: #### 2 [id number] #### [facility] [address] [place] [address] WBC corrected for nucl RBC Auto (Bld) [#/Vol] 11.8 E9/L High 4.0-11.0 [facility] Comment on above: Performed By: #### 2 [id number] #### [facility] [address] [place] [address] CHEMISTRYOrdered By: SYSTEM SYSTEM on 10-26-2024 Troponin HS 2.60 pg/mL Low 10.10 - 27.10 pg/mL [facility] Comment on above: Interpretive Data: T he 95% CI (Confidence Interval) PPV (Positive Predictive Value) for myocardial infarction in females is 38 pg/mL, in males 51 pg/mL. The results should be used in conjunction with clinical conditions of myocardial infarction. (Access High Sensitivity Troponin I Instructions For Use, Fred Shaniqu[place], March 2018) Anion gap [Moles/Vol] 14 mmol/L Normal 6 - 16 mEq/L [facility] Calcium [Mass/Vol] 9.1 mg/dL Normal 8.9 - 11. 1 mg/dL [facility] Chloride [Moles/Vol] 104 mmol/L Normal 101 - 1 11 mmol/L [facility] CO2 [Moles/Vol] 25 mmol/L Normal 21 - 31 mmol/L [facility] Creatinine [Mass/Vol] 0.6 mg/dL Normal 0.5 - 1.3 mg/dL [facility] eGFR 110 mL/min/1.73 m2 Normal >=59mL/mi n /1.73 m2 [facility] Glucose [Mass/Vol] 167 mg/dL Normal 55 - 199 mg/dL [facility] Magnesium [Mass/Vol] 1.8 mg/dL Normal 1.3 - 2 .4 mg/dL [facility] Potassium [Moles/Vol] 3.6 mmol/L Normal 3.5 - 5.3 mmol/L [facility] Sodium [Moles/Vol] 139 mmol/L Normal 135 - 145 mmol/L [facility] Troponin HS 2.80 pg/mL Low 10.10 - 27.10 pg/mL [facility] Comment on above: Interpretive Data: T he 95% CI (Confidence Interval) PPV (Positive Predictive Value) for myocardial infarction in females is 38 pg/mL, in males 51 pg/mL. The results should be used in conjunction with clinical conditions of myocardial infarction. (Access High Sensitivity Troponin I Instructions For Use, Fred [place], March 2018) Urea nitrogen [Mass/Vol] 16 mg/dL Normal 5 - 21 mg/dL [facility] Urea nitrogen/Creatinine [Mass ratio] 27 mg/mg High 10 - 20 [facility] CHEMISTRYOrdered By: Ekaterina Maxwell on 10-26-2024 Natriuretic peptide B (Bld) [Mass/Vol] 10 pg/mL Normal 5 - 80 pg/mL [facility] HemeManSS COAGULATIONOrdered By: Yessy Maxwell on 10-26-2024 aPTT Coag (PPP) [Time] 29.2 s Normal 25.1 - 36.5 second(s) [facility] Auto Coag Comment on above: Interpretive Data: P arameter 15 days - 4 weeks 1 - 5 months 6 - 11 months 1 - 5 years 6 - 10 years 11 - 17 years PTT Mean: 35.4 (27.6-45.6) Mean: 33.5 (24.8-40.7) Mean: 32.4 (25.1-40.7) Mean: 31.6 (24.0-39.2) Mean: 31.6 (26.9-38.7) Mean: 31.0 (24.6-38.4) Pediatric Reference ranges were obtained from a study by Salvatore Martínez et al. prepared from 1437 samples obtained at 7 different centers using the same coagulation reagent and instrumentation as [facility]. Currently there are no coagulation studies available worldwide for children to 14 days, and no normal ranges. Heparin therapeutic range (represented by Anti-Factor Xa activity of 0.2 - 0.4 U/mL) corresponds to PTT of 56.6 - 109.0 sec. Fibrin D-dimer FEU (PPP) [Mass/Vol] 642 ng/mL FEU Invalid Interpretation Code 215 - 500 ng/mL [facility]U [facility] [facility] Comment on above: Result Comment: Resu lts Verified By Repeat Analysis Results Called To Leon Garcia/MAGDI By Yohana Maxwell And Read Back For Confirmation On 10/26/2024 23:18:18 EDT. Interpretive Data: T his assay is intended for use as an aid in the diagnosis of DVT or PE. These conditions cannot be excluded with certainty solely on the basis of a D-dimer concentration being within the reference range This D-Dimer assay may be used in conjunction with a non-high clinical pretest probability assessment to exclude deep-vein thrombosis(DVT). For exclusion of venous thrombosis or pulmonary embolism the analyte D-Dimer should not be used as an aid in patients with: Therapeutic dose anticoagulant therapy for >24 hours Fibrinolytic therapy within previous 7 days Trauma or surgery within previous 4 weeks Disseminated malignacies Aortic aneurysm Sepsis, severe infections, pneumonia, severe skin infections Liver cirrhosis INR Coag (PPP) [Relative time] 0.99 {INR} Invalid Interpretation Code [facility] Comment on above: Interpretive Data: I NR results are specifically intended to assess patients stabilized on long-term Anticoagulation therapy suggested INR s Less Intensive Anticoagulation 2.0 3.0 Conventional Range 3.0 4.5 PT Coag (PPP) [Time] 11.1 s Normal 9.4 - 1 2.5 second(s) [facility] Comment on above: Interpretive Data: 1 5 days - 4 weeks 1 - 5 months 6 -11 months 1-5 years 6-10 years 11 -17 years Mean: 11.2 (9.5-12.6) Mean: 11.0 (9.7-12.8) Mean: 11.0 (9.8-13.0) Mean: 11.3 (9.9-13.4) Mean: 11.7 (10.0-14.6) Mean: 11.8 (10.0 - 14.1) Pediatric Reference ranges were obtained from a study by Salvatore Martínez et al. prepared from 1437 samples obtained at 7 different centers using the same coagulation reagent and instrumentation as [facility]. Currently there are no coagulation studies available worldwide for children to 14 days, and no normal ranges. D-Dimeron 10-26-2024 Fibrin D-dimer FEU (PPP) [Mass/Vol] [id number] Abnormal 215-500 [facility] Comment on above: Result Comment: Resu lts Verified By Repeat Analysis Results Called To Leon Garcia/MAGDI By Yohana Maxwell And Read Back For Confirmation On 10/26/2024 23:18:18 EDT. This assay is intended for use as an aid in the diagnosis of DVT or PE. These conditions cannot be excluded with certainty solely on the basis of a D-dimer concentration being within the reference range This D-Dimer assay may be used in conjunction with a non-high clinical pretest probability assessment to exclude deep-vein thrombosis(DVT). For exclusion of venous thrombosis or pulmonary embolism the analyte D-Dimer should not be used as an aid in patients with: Therapeutic dose anticoagulant therapy for >24 hours Fibrinolytic therapy within previous 7 days Trauma or surgery within previous 4 weeks Disseminated malignacies Aortic aneurysm Sepsis, severe infections, pneumonia, severe skin infections Liver cirrhosis Performed By: #### 2 [id number] #### [facility] [address] [place] [address] HEMATOLOGYOrdered By: SYSTEM SYSTEM on 10-26-2024 Band form neutrophils/100 WBC (Bld) 14.0 % High 0.0 - 6.0 % Remisol Heme Basophils (Bld) [#/Vol] 0.0 E9/L Normal 0.0 - 0.2 E9/L Remisol Heme Basophils/100 WBC (Bld) 0.0 % Normal 0.0 - 2.0 % Remisol Heme Eosinophils (Bld) [#/Vol] 0.0 E9/L Normal 0.0 - 0.5 E9/L Remisol Heme Eosinophils/100 WBC (Bld) 0.0 % Normal 0.0 - 8.0 % Remisol Heme Erythrocyte distribution width (RBC) [Ratio] 13.4 % Normal 10.9 - 14.2 % Remisol Heme Hematocrit (Bld) [Volume fraction] 36.1 % Normal 34.0 - 46.0 % Remisol Heme Hemoglobin (Bld) [Mass/Vol] 12.6 g/dL Normal 12.0 - 16.0 gm/dL Remisol Heme Lymphocytes (Bld) [#/Vol] 2.1 E9/L Normal 1.0 - 4.0 E9/L Remisol Heme Lymphocytes/100 WBC (Bld) 18.0 % Normal 14.0 - 50.0 % Remisol Heme MCH (RBC) [Entitic mass] 29.1 pg Normal 27.0 - 34.0 pg Remisol Heme MCHC (RBC) [Mass/Vol] 34.8 g/dL Normal 31.4 - 36.0 gm/dL Remisol Heme MCV (RBC) [Entitic vol] 83.7 fL Normal 80.0 - 100.0 fL Remisol Heme Monocytes (Bld) [#/Vol] 1.1 E9/L High 0.2 - 1.0 E9/L Remisol Heme Monocytes/100 WBC (Bld) 9.0 % Normal 4.0 - 14.0 % Remisol Heme Neutrophils (Bld) [#/Vol] 8.6 E9/L Invalid Interpretation Code Remisol Heme Platelet mean volume (Bld) [Entitic vol] 7.1 fL Normal 6.4 - 10.8 fL Remisol Heme Platelets (Bld) [#/Vol] 296.0 E9/L Normal 150.0 - 500.0 E9/L Remisol Heme RBC (Bld) [#/Vol] 4.3 E12/L Normal 4.3 - 5.9 E12/L Remisol Heme RBC size Nom (Bld) NORMAL *NA* (10/26/24 10:38 PM) Invalid Interpretation Code Remisol Heme Segmented neutrophils/100 WBC (Bld) 59.0 % Normal 36.0 - 75.0 % Remisol Heme WBC corrected for nucl RBC Auto (Bld) [#/Vol] 11.8 E9/L High 4.0 - 11.0 E9/L Remisol Heme Magnesiumon 10-26-2024 Magnesium [Mass/Vol] 1.8 mg/dL Normal 1.3-2.4 [facility] Comment on above: Performed By: #### 2 [id number] #### [facility] [address] [place] [address] PT & PTTon 10-26-2024 aPTT Coag (PPP) [Time] 29.2 second(s) Normal 25.1-36.5 [facility] Comment on above: Result Comment: Para meter 15 days - 4 weeks 1 - 5 months 6 - 11 months 1 - 5 years 6 - 10 years 11 - 17 years PTT Mean: 35.4 (27.6-45.6) Mean: 33.5 (24.8-40.7) Mean: 32.4 (25.1-40.7) Mean: 31.6 (24.0-39.2) Mean: 31.6 (26.9-38.7) Mean: 31.0 (24.6-38.4) Pediatric Reference ranges were obtained from a study by Salvatore Martínez et al. prepared from 1437 samples obtained at 7 different centers using the same coagulation reagent and instrumentation as [facility]. Currently there are no coagulation studies available worldwide for children to 14 days, and no normal ranges. Heparin therapeutic range (represented by Anti-Factor Xa activity of 0.2 - 0.4 U/mL) corresponds to PTT of 56.6 - 109.0 sec. Performed By: #### 1 [id number] #### [facility] [address] [place] [address] INR Coag (PPP) [Relative time] 0.99 {INR} Invalid Interpretation Code [facility] Comment on above: Result Comment: INR results are specifically intended to assess patients stabilized on long-term Anticoagulation therapy suggested INR???s ???Less Intensive Anticoagulation??? 2.0 ??? 3.0 Conventional Range 3.0 ??? 4.5 Performed By: #### 1 [id number] #### [facility] [address] [place] [address] PT Coag (PPP) [Time] 11.1 second(s) Normal 9.4-12.5 [facility] Comment on above: Result Comment: 15 d ays - 4 weeks 1 - 5 months 6 -11 months 1- 5 years 6-10 years 11 -17 years Mean: 11.2 (9.5-12.6) Mean: 11.0 (9.7-12.8) Mean: 11.0 (9.8-13.0) Mean: 11.3 (9.9-13.4) Mean: 11.7 (10.0-14.6) Mean: 11.8 (10.0 - 14.1) Pediatric Reference ranges were obtained from a study by Salvatore Martínez et al. prepared from 1437 samples obtained at 7 different centers using the same coagulation reagent and instrumentation as [facility]. Currently there are no coagulation studies available worldwide for children to 14 days, and no normal ranges. Performed By: #### 1 [id number] #### [facility] [address] [place] [address] Troponin 0 Hr.on 10-26-2024 Troponin HS 2.80 pg/mL Low 10.10-27.1 0 [facility] Comment on above: Result Comment: The 95% CI (Confidence Interval) PPV (Positive Predictive Value) for myocardial infarction in females is 38 pg/mL, in males 51 pg/mL. The results should be used in conjunction with clinical conditions of myocardial infarction. (Access High Sensitivity Troponin I Instructions For Use, [place], March 2018) Performed By: #### 1 [id number] #### [facility] [address] [place] [address] eGFRon 10-26-2024 eGFR 110 mL/min/1.73 m2 Normal >=59 [facility] Comment on above: Performed By: #### 1 [id number] #### [facility] [address] [place] [address] Appearance of UrineOrdered B y: Mary Ellen Magallanes on 10-23-2024 Appearance (U) Urine appearance Clear [facility] B-Type Natriuretic Peptideon 10-23-2024 Natriuretic peptide B (Bld) [Mass/Vol] 17.0 pg/mL Normal 5-100 [facility] Comment on above: Result Comment: PERF ORMED BY: [facility] [address] [facility] [address] PATHOLOGIST ELEVATOR DISPATCHER MICHELLE TEE M.D. Performed By: #### P TT, PT, HS TROP, BNP, CBC, BMP ####[address] Basic Metabolic Panelon 03-2 Anion gap [Moles/Vol] 11.4 mmol/L Normal 6.0-15.0 Th e [facility] Comment on above: Performed By: #### P TT, PT, HS TROP, BNP, CBC, BMP ####[address] Calcium [Mass/Vol] 9.5 mg/dL Normal 8.6-10.3 [facility] Comment on above: Performed By: #### P TT, PT, HS TROP, BNP, CBC, BMP ####[address] Chloride [Moles/Vol] 105 mmol/L Normal 98-107 [facility] Comment on above: Performed By: #### P TT, PT, HS TROP, BNP, CBC, BMP ####[address] CO2 [Moles/Vol] 24.5 mmol/L Normal 21.0-31.0 The [facility] Comment on above: Performed By: #### P TT, PT, HS TROP, BNP, CBC, BMP ####[place] [id number] [facility] Creatinine [Mass/Vol] 0.51 mg/dL Low 0.60-1.20 [facility] Comment on above: Performed By: #### P TT, PT, HS TROP, BNP, CBC, BMP ####[address] Creatinine Clr Calc Pharmacy 159.13 Normal [facility] Comment on above: Result Comment: PERF ORMED BY: [facility] [address] [place] [address] PATHOLOGIST ELEVATOR DISPATCHER MICHELLE TEE M.D. Performed By: #### P TT, PT, HS TROP, BNP, CBC, BMP ####[place] [address] GFR/1.73 sq M.predicted MDRD (S/P/Bld) [Vol rate/Area] mL/min/{1.73_m2} Normal [facility] Comment on above: Performed By: #### P TT, PT, HS TROP, BNP, CBC, BMP ####[place] [address] Glucose [Mass/Vol] 148 mg/dL High 70-100 [facility] Comment on above: Result Comment: Isabel Glucose Reference Range is dependent on time and content of last meal. Glucose of more than 200 mg/dL in a nonstressed, ambulatory subject supports the diagnosis of Diabetes Mellitus. ADA recommended reference range Performed By: #### P TT, PT, HS TROP, BNP, CBC, BMP ####[place] [id number] [facility] Potassium [Moles/Vol] 3.9 mmol/L Normal 3.5-5.1 [facility] Comment on above: Performed By: #### P TT, PT, HS TROP, BNP, CBC, BMP ####[address] Sodium [Moles/Vol] 137 mmol/L Normal 136-145 [facility] Comment on above: Performed By: #### P TT, PT, HS TROP, BNP, CBC, BMP ####[place] [id number] [facility] Urea nitrogen [Mass/Vol] 15 mg/dL Normal 7-25 [facility] Comment on above: Performed By: #### P TT, PT, HS TROP, BNP, CBC, BMP ####[place] [id number] [place] Basophils Auto (Bld) [#/Vol] Ordered By: Mary Ellen Magallanes on 10-23-2024 Basophils (Bld) [#/Vol] Automated basophil count 0.0-0.2 [facility] Basophils/100 WBC Auto (Bld) Ordered By: Mary Ellen Magallanes on 10-23-2024 Basophils/100 WBC (Bld) Automated basophil % . [facility] Bilirubin Test strip Ql (U)O rdered By: Mary Ellen Magallanes on 10-23-2024 Bilirubin Ql (U) Bilirubin.total [Presence] in Urine by Test strip Negative [facility] BioFire Not Detectedon 10-23 BioFire Not Detected Not detected Normal Not Detecte [facility] Comment on above: Result Comment: This is a duplicate RP2.1 COVID (PCR) result to be used for statistical tracking purpose only. PERFORMED BY: [facility] [address] [place] [address] PATHOLOGIST ELEVATOR DISPATCHER MICHELLE TEE M.D. Performed By: #### B IOFIRECOVNOTDE, RESP PANEL UPP. ####[facility] [id number] COVID-19 Detected/Not Detect edOrdered By: Mary Ellen Magallanes on 10-23-2024 SARS-CoV-2 (COVID-19) RNA DEBBIE+non-probe Ql (Nph) Not detected Not Detecte [facility] Comment on above: This is a duplicate RP2.1 COVID (PCR) result to be used for statistical tracking purpose only. Calcium [Mass/volume] in Ser um or PlasmaOrdered By: Mary Ellen Magallanes on 10-23-2024 Calcium [Mass/Vol] Calcium [Mass/volume ] in Serum or Plasma 8.6-10.3 [facility] Carbon dioxide, total [Moles /volume] in Serum or PlasmaOrdered By: Mary Ellen Magallanes on 10-23-2024 CO2 [Moles/Vol] Carbon dioxide, tota l [Moles/volume] in Serum or Plasma 21.0-31.0 [facility] Chloride [Moles/volume] in S claudia or PlasmaOrdered By: Mary Ellen Magallanes on 10-23-2024 Chloride [Moles/Vol] Chloride [Moles/vol ume] in Serum or Plasma 98-107 [facility] Color Auto (U)Ordered By: Daryl Magallanes on 10-23-2024 Color (U) Color of Urine by Auto [facility] Complete Blood Count Auto Di ffon 10-23-2024 Basophils (Bld) [#/Vol] 0.1 10*3/uL Normal 0.0-0.2 [facility] Comment on above: Result Comment: PERF ORMED BY: [facility] [address] [place] [address] PATHOLOGIST ELEVATOR DISPATCHER MICHELLE TEE M.D. Performed By: #### P TT, PT, HS TROP, BNP, CBC, BMP ####[address] Basophils/100 WBC (Bld) 0.6 % Normal . [facility] Comment on above: Performed By: #### P TT, PT, HS TROP, BNP, CBC, BMP ####[address] Eosinophils (Bld) [#/Vol] 0.3 10*3/uL Normal 0.0-0.45 [facility] Comment on above: Performed By: #### P TT, PT, HS TROP, BNP, CBC, BMP ####[address] Eosinophils/100 WBC (Bld) 3.9 % Normal . [facility] Comment on above: Performed By: #### P TT, PT, HS TROP, BNP, CBC, BMP ####[place] [id number] [facility] Erythrocyte distribution width (RBC) [Ratio] 13.3 % Normal 11.9-15.3 [facility] Comment on above: Performed By: #### P TT, PT, HS TROP, BNP, CBC, BMP ####[address] Hematocrit (Bld) [Volume fraction] 34.8 % Normal 34.0-46.4 [facility] Comment on above: Performed By: #### P TT, PT, HS TROP, BNP, CBC, BMP ####[address] Hemoglobin (Bld) [Mass/Vol] 12.2 g/dL Normal 11.8-15.4 [facility] Comment on above: Performed By: #### P TT, PT, HS TROP, BNP, CBC, BMP ####[address] Lymphocytes (Bld) [#/Vol] 2.2 10*3/uL Normal 1.00-4.8 [facility] Comment on above: Performed By: #### P TT, PT, HS TROP, BNP, CBC, BMP ####[address] Lymphocytes/100 WBC (Bld) 25.2 % Normal . [facility] Comment on above: Performed By: #### P TT, PT, HS TROP, BNP, CBC, BMP ####[address] MCH (RBC) [Entitic mass] 29.2 pg Normal 24.7-34.3 [facility] Comment on above: Performed By: #### P TT, PT, HS TROP, BNP, CBC, BMP ####[address] MCV (RBC) [Entitic vol] 83.2 fL Normal 80-100 [facility] Comment on above: Performed By: #### P TT, PT, HS TROP, BNP, CBC, BMP ####[address] Mean Corpuscular HGB Conc 35.0 g/dL Normal 32.0-35.0 [facility] Comment on above: Performed By: #### P TT, PT, HS TROP, BNP, CBC, BMP ####[address] Monocytes (Bld) [#/Vol] 0.7 10*3/uL Normal 0.0-0.8 [facility] Comment on above: Performed By: #### P TT, PT, HS TROP, BNP, CBC, BMP ####[address] Monocytes/100 WBC (Bld) 20.26 % High 0.00-20.00 [facility] Comment on above: Result Comment: For adults in ED, MDW > 20.0 may be associated with a higher risk of sepsis during the first 12 hrs of hospital admission Performed By: #### P TT, PT, HS TROP, BNP, CBC, BMP ####[address] Monocytes/100 WBC (Bld) 8.0 % Normal . [facility] Comment on above: Performed By: #### P TT, PT, HS TROP, BNP, CBC, BMP ####[address] Neutrophils (Bld) [#/Vol] 5.4 10*3/uL Normal 1.8-7.7 [facility] Comment on above: Performed By: #### P TT, PT, HS TROP, BNP, CBC, BMP ####[address] Neutrophils/100 WBC (Bld) 62.3 % Normal . [facility] Comment on above: Performed By: #### P TT, PT, HS TROP, BNP, CBC, BMP ####[address] NRBC% 0.0 /100{WBC} Normal 0-0.5 [facility] Comment on above: Performed By: #### P TT, PT, HS TROP, BNP, CBC, BMP ####[address] Platelet mean volume (Bld) [Entitic vol] 6.9 fL Normal 6.3-10.7 [facility] Comment on above: Performed By: #### P TT, PT, HS TROP, BNP, CBC, BMP ####[facility] [place] [id number] [facility] Platelets (Bld) [#/Vol] 254 10*3/uL Normal 150-450 [facility] Comment on above: Performed By: #### P TT, PT, HS TROP, BNP, CBC, BMP ####[place] [address] [place] [address] [facility] RBC (Bld) [#/Vol] 4.18 10*6/uL Normal 3.60-5.00 [facility] Comment on above: Performed By: #### P TT, PT, HS TROP, BNP, CBC, BMP ####[place] [address] [place] [id number] [facility] WBC (Bld) [#/Vol] 8.7 10*3/uL Normal 3.8-11.6 [facility] Comment on above: Performed By: #### P TT, PT, HS TROP, BNP, CBC, BMP ####[place] [address] [place] [id number] [facility] Creatinine [Mass/volume] in Serum or PlasmaOrdered By: Mary Ellen Magallanes on 10-23-2024 Creatinine [Mass/Vol] Creatinine [Mass/v olume] in Serum or Plasma Low 0.60-1.20 [facility] ECG 12 lead ECGon 10-23-2024 ECG 12 lead ECG [facility] [address] Electrocardiograph Report Signed Patient: Lisa Mendez MR#: [id number] : 1975 Acct:[id number] Age/Sex: 49 / F ADM Date: 10/23/24 Loc: ER Room: Type: [facility] ER Attending Dr: Ordering Provider: Mary Ellen Magallanes APRN Date of Service: 10/23/24 ECG/ECG 12 lead ECG: Upper Respiratory Infection Copies to: Test Reason : Blood Pressure : 171/83 mmHG Vent. Rate : 86 BPM Atrial Rate : 86 BPM P-R Int : 160 ms QRS Dur : 80 ms QT Int : 364 ms P-R-T Axes : 46 62 35 degrees QTcB Int : 435 ms Normal sinus rhythm Normal ECG When compared with ECG of 27-Sep-2024 16:05, No significant change was found Confirmed by BIPIN CHUA [facility], OUSMANE ([id number]) on 10/25/2024 9:15:22 AM Referred By: Electronically Signed By: OUSMANE VOSS MD [facility] Transcribed By: MUS Signed By Ousmane Voss MD, [facility] 10/25/24 0915 Normal [facility] Eosinophils Auto (Bld) [#/Vo l]Ordered By: Mary Ellen Magallanes on 10-23-2024 Eosinophils (Bld) [#/Vol] Automated eosinophil count 0.0-0.45 [facility] Eosinophils/100 WBC Auto (Bl d)Ordered By: Mary Ellen Magallanes on 10-23-2024 Eosinophils/100 WBC (Bld) Automated eosinophil % . [facility] Erythrocyte distribution wid th Auto (RBC) [Ratio]Ordered By: Mary Ellen Magallanes on 10-23-2024 Erythrocyte distribution width (RBC) [Ratio] Erythrocyte distribution width [Ratio] by Automated count 11.9-15.3 [facility] Glucose [Mass/volume] in Ser um or PlasmaOrdered By: Mary Ellen Magallanes on 10-23-2024 Glucose [Mass/Vol] Glucose [Mass/volume ] in Serum or Plasma High 70-100 [facility] Comment on above: ADA recommended refe rence rangeRandom Glucose Reference Range is dependent on time and content of last meal. Glucose of more than 200 mg/dL in a nonstressed, ambulatory subject supports the diagnosis of Diabetes Mellitus. Glucose [Mass/volume] in Uri ne by Test stripOrdered By: Mary Ellen Magallanes on 10-23-2024 Glucose Test strip (U) [Mass/Vol] Glucose [Mass/volume] in Urine by Test strip Normal [facility] HCG ( test) IA.rapi d Ql (U)Ordered By: Mary Ellen Magallanes on 10-23-2024 HCG ( test) Ql (U) Urine human chorionic gonadotropin (hCG) detection by immunoassay [facility] HCG,Urineon 10-23-2024 Beta HCG ( test) Ql (U) Negative Normal [facility] Comment on above: Order Comment: Name Collection Type:: Clean-Voided Midstream Result Comment: PERF ORMED BY: [facility] [address] [place] [address] PATHOLOGIST ELEVATOR DISPATCHER MICHELLE TEE M.D. Performed By: #### U A, [facility] ####[facility] [id number] [place] [id number] [facility] Hematocrit Auto (Bld) [Volum e fraction]Ordered By: Mary Ellen Magallanes on 10-23-2024 Hematocrit (Bld) [Volume fraction] Hematocrit [Volume Fraction] of Blood by Automated count 34.0-46.4 [facility] Hemoglobin Test strip Ql (U) Ordered By: Mary Ellen Magallanes on 10-23-2024 Hemoglobin Ql (U) Hemoglobin [Presence ] in Urine by Test strip Negative [facility] Hemoglobin [Mass/volume] in BloodOrdered By: Mary Ellen Magallanes on 10-23-2024 Hemoglobin (Bld) [Mass/Vol] Hemoglobin [Mass/volume] in Blood 11.8-15.4 [facility] INR in Platelet poor plasma by Coagulation assayOrdered By: Mary Ellen Magallanes on 10-23-2024 INR Coag (PPP) [Relative time] INR in Platelet poor plasma by Coagulation assay [facility] Comment on above: INR Therapeutic Rang e A) Pre- and Peroperative OAT started two weeks before surgery. NOT HIP SURGERY: 1.5 - 2.5 HIP SURGERY: 2 - 3B) Primary and secondary prevention of venous THROMBOSIS: 2 - 3C) Active venous thrombosis, pulmonary embolismand prevention of recurrent venous thrombosis: 2 - 3D) Prevention of arterial thromboembolismincluding patients with mechanical heart valves: 3 - 4.5 Ketones Test strip Ql (U)Ord ered By: Mary Ellen Magallanes on 10-23-2024 Ketones Ql (U) Ketones [Presence] i n Urine by Test strip Negative [facility] Leukocyte esterase [Presence ] in Urine by Test stripOrdered By: Mary Ellen Magallanes on 10-23-2024 Leukocyte esterase Test strip Ql (U) Leukocyte esterase [Presence] in Urine by Test strip Negative [facility] Leukocytes [#/volume] correc cristian for nucleated erythrocytes in Blood by Automated counOrdered By: Mayr Ellen Magallanes on 10-23-2024 WBC corrected for nucl RBC Auto (Bld) [#/Vol] Leukocytes [#/volume] corrected for nucleated erythrocytes in Blood by Automated coun 3.8-11.6 [facility] Lymphocytes Auto (Bld) [#/Vo l]Ordered By: Mary Ellen Magallanes on 10-23-2024 Lymphocytes (Bld) [#/Vol] Lymphocytes [#/volume] in Blood by Automated count 1.00-4.8 [facility] Lymphocytes/100 WBC Auto (Bl d)Ordered By: Mary Ellen Magallanes on 10-23-2024 Lymphocytes/100 WBC (Bld) Lymphocytes/100 leukocytes in Blood by Automated count . [facility] MCH Auto (RBC) [Entitic mass ]Ordered By: Mary Ellen Magallanes on 10-23-2024 MCH (RBC) [Entitic mass] MCH [Entitic mass] by Automated count 24.7-34.3 [facility] MCHC Auto (RBC) [Mass/Vol]Or dered By: Mary Ellen Magallanes on 10-23-2024 MCHC (RBC) [Mass/Vol] MCHC [Mass/volume] by Automated count 32.0-35.0 [facility] MCV Auto (RBC) [Entitic vol] Ordered By: Mary Ellen Magallanes on 10-23-2024 MCV (RBC) [Entitic vol] MCV [Entitic volume] by Automated count 80-100 [facility] Monocyte distribution width [Entitic volume] in Blood by AutomatedOrdered By: Mary Ellen Magallanes on 10-23-2024 Monocyte distribution width Auto (Bld) [Entitic vol] Monocyte distribution width [Entitic volume] in Blood by Automated High 0.00-20.00 [facility] Comment on above: For adults in ED, MD W > 20.0 may be associated with a higher risk of sepsis during the first 12 hrs of hospital admission Monocytes Auto (Bld) [#/Vol] Ordered By: Mary Ellen Maagllanes on 10-23-2024 Monocytes (Bld) [#/Vol] Automated blood monocyte count 0.0-0.8 [facility] Monocytes/100 WBC Auto (Bld) Ordered By: Mary Ellen Magallanes on 10-23-2024 Monocytes/100 WBC (Bld) Automated monocyte % . [facility] Natriuretic peptide B [Mass/ Vol]Ordered By: Mary Ellen Magallanes on 10-23-2024 Natriuretic peptide B (Bld) [Mass/Vol] BNP ser/plas 5-100 [facility] Neutrophils Auto (Bld) [#/Vo l]Ordered By: Mary Ellen Magallanes on 10-23-2024 Neutrophils (Bld) [#/Vol] Neutrophils [#/volume] in Blood by Automated count 1.8-7.7 [facility] Neutrophils/100 WBC Auto (Bl d)Ordered By: Mary Ellen Magallanes on 10-23-2024 Neutrophils/100 WBC (Bld) Automated neutrophil % . [facility] Nitrite Test strip Ql (U)Ord ered By: Mary Ellen Magallanes on 10-23-2024 Nitrite Ql (U) Nitrite [Presence] i n Urine by Test strip Negative [facility] No Panel InformationOrdered By: Mary Ellen Magallanes on 10-23-2024 Estimated GFR (CKD-EPI) > 60.0 mL/Min [facility] Creatinine Clearance (Chem 159.13 [facility] > 60.0 mL/Min [facility] 159.13 [facility] Nucleated erythrocytes [Pres ence] in Blood by Automated countOrdered By: Mary Ellen Magallanes on 10-23-2024 Nucleated RBC Auto Ql (Bld) Nucleated erythrocytes [Presence] in Blood by Automated count 0-0.5 [facility] Partial Thromboplastin Timeo n 10-23-2024 aPTT Coag (Bld) [Time] 27.6 s Normal 25.1-36.5 Th e [facility] Comment on above: Result Comment: A he matocrit value greater than 55% may lead to inaccurate results in coagulation testing. Patients having hematocrit values >55% require a special collection tube for coagulation studies. Please contact the laboratory at [phone] for redraw instructions. PERFORMED BY: [facility] [address] [place] [address] PATHOLOGIST ELEVATOR DISPATCHER MICHELLE TEE M.D. Performed By: #### P TT, PT, HS TROP, BNP, CBC, BMP ####[facility] [id number] [place] [address] [facility] Platelet mean volume Auto (B ld) [Entitic vol]Ordered By: Mary Ellen Magallanes on 10-23-2024 Platelet mean volume (Bld) [Entitic vol] Platelet mean volume [Entitic volume] in Blood by Automated count 6.3-10.7 [facility] Platelets Auto (Bld) [#/Vol] Ordered By: Mary Ellen Magallanes on 10-23-2024 Platelets (Bld) [#/Vol] Platelets [#/volume] in Blood by Automated count 150-450 [facility] Potassium [Moles/volume] in Serum or PlasmaOrdered By: Mary Ellen Magallanes on 10-23-2024 Potassium [Moles/Vol] Potassium [Moles/v olume] in Serum or Plasma 3.5-5.1 [facility] Protein Test strip (U) [Mass /Vol]Ordered By: Mary Ellen Magallanes on 10-23-2024 Protein (U) [Mass/Vol] Protein [Mass/vol ume] in Urine by Test strip Negative [facility] Prothrombin Time INRon 10-23 INR Coag (PPP) [Relative time] 0.9 {INR} Normal [facility] Comment on above: Result Comment: INR Therapeutic Range A) Pre- and Peroperative OAT started two weeks before surgery. NOT HIP SURGERY: 1.5 - 2.5 HIP SURGERY: 2 - 3 B) Primary and secondary prevention of venous THROMBOSIS: 2 - 3 C) Active venous thrombosis, pulmonary embolism and prevention of recurrent venous thrombosis: 2 - 3 D) Prevention of arterial thromboembolism including patients with mechanical heart valves: 3 - 4.5 Performed By: #### P TT, PT, HS TROP, BNP, CBC, BMP ####[facility] [id number] [place] [address] [facility] PT Coag (PPP) [Time] 10.7 s Normal 9.0-12.9 [facility] Comment on above: Result Comment: A he matocrit value greater than 55% may lead to inaccurate results in coagulation testing. Patients having hematocrit values >55% require a special collection tube for coagulation studies. Please contact the laboratory at [phone] for redraw instructions. Performed By: #### P TT, PT, HS TROP, BNP, CBC, BMP ####[facility] [id number] [place] [id number] [facility] Prothrombin time (PT)Ordered By: Mary Ellen Magallanes on 10-23-2024 PT Coag (PPP) [Time] Prothrombin time (PT) 9.0- 12.9 [facility] Comment on above: A hematocrit value g reater than 55% may lead to inaccurate results in coagulation testing. Patients having hematocrit values >55% require a special collection tube for coagulation studies. Please contact the laboratory at [phone] for redraw instructions. RBC Auto (Bld) [#/Vol]Ordere d By: Mary Ellen Magallanes on 10-23-2024 RBC (Bld) [#/Vol] Erythrocytes [#/volu me] in Blood by Automated count 3.60-5.00 [facility] Respiratory (Upper) Panel, P CRon 10-23-2024 Respiratory (Upper) Panel, PCR Adenovirus Not detected Bordetella parapertussis Not detected Chlamydia pneumoniae Not detected Coronavirus 229E Not detected Coronavirus HKU1 Not detected Coronavirus NL63 Not detected Coronavirus OC43 Not detected Influenza A Not detected Influenza B Not detected Human Metapneumovirus Not detected Mycoplasma pneumoniae Not detected Parainfluenza Virus 1 Not detected Parainfluenza Virus 2 Not detected Parainfluenza Virus 3 Not detected Parainfluenza Virus 4 Not detected Bordetella pertussis-ptxP Not detected Human Rhino/Enterovirus Not detected Resp. Syncytial Virus Not detected COVID-19 Detected/Not Detected Not detected Blank Space ---- FLUA TEST INCLUDES Influenza A tests for the following clinically FLUA TEST INCLUDES significant subtypes: FLUA TEST INCLUDES - Influenza A FLUA TEST INCLUDES - Influenza A H1 FLUA TEST INCLUDES - Influenza A H1 2009 FLUA TEST INCLUDES - Influenza A H3 Blank Space ---- PERFORMED BY: [facility] [address] [place] [address] PATHOLOGIST ELEVATOR DISPATCHER MICHELLE TEE M.D. Normal [facility] Comment on above: Performed By: #### B IOFIRECOVNOTDE, RESP PANEL UPP. ####[facility] [id number] Respiratory pathogens DNA an d RNA panel - Nasopharynx by DEBBIE with non-probe detectionOrdered By: [facility] Ellen [facility] Respiratory pathogens DNA and RNA panel DEBBIE+non-probe (Nph) Respiratory pathogens DNA and RNA panel - Nasopharynx by DEBBIE with non-probe detection [facility] Serum or plasma anion gap de terminationOrdered By: [facility] on 10-23-2024 Anion gap [Moles/Vol] Serum or plasma an ion gap determination 6.0-15.0 [facility] Sodium [Moles/volume] in Ser um or PlasmaOrdered By: [facility] on 10-23-2024 Sodium [Moles/Vol] Sodium [Moles/volume ] in Serum or Plasma 136-145 [facility] Specific gravity Test strip (U) [Rel density]Ordered By: [facility] on 10-23-2024 Specific gravity (U) [Rel density] Specific gravity of Urine by Test strip 1.001-1.03 0 [facility] Troponin I High Sensitivityo n 10-23-2024 Troponin I High Sensitivity <3 Normal 0-15 [facility] Comment on above: Result Comment: The Troponin units of report have been changed to meet the Chest Pain Accreditation requirement, element EC5.M1l2. Troponin units are changed from pg/ml to ng/L. Also, the decimal is removed and results are in whole numbers. PERFORMED BY: [facility] [address] [place] [address] PATHOLOGIST ELEVATOR DISPATCHER MICHELLE TEE M.D. Performed By: #### P TT, PT, HS TROP, BNP, CBC, BMP ####[place] [place] [address] [facility] Troponin I.cardiac [Mass/vol ume] in Serum or Plasma by Detection limit <= 0.01 ng/Ordered By: Mary Ellen Magallanes on 10-23-2024 Troponin I.cardiac DL <= 0.01 ng/mL [Mass/Vol] Troponin I.cardiac [Mass/volume] in Serum or Plasma by Detection limit <= 0.01 ng/ 0-15 [facility] Comment on above: The Troponin units o f report have been changed to meet the Chest Pain Accreditation requirement, element EC5.M1l2. Troponin units are changed from pg/ml to ng/L. Also, the decimal is removed and results are in whole numbers. Urea nitrogen [Mass/volume] in Serum or PlasmaOrdered By: Mary Ellen Magallanes on 10-23-2024 Urea nitrogen [Mass/Vol] Urea nitrogen [Mass/volume] in Serum or Plasma 7- [facility] Urinalysison 10-23-2024 Appearance (U) Clear Normal Clear [facility] Comment on above: Order Comment: Name Collection Type:: Clean-Voided Midstream Performed By: #### U A, CG ####[address] [address] [facility] Bilirubin,Urine Negative Normal Negative The [facility] Comment on above: Order Comment: Name Collection Type:: Clean-Voided Midstream Performed By: #### U A, UHCG ####[address] [address] [facility] Color (U) Light-Yellow Normal Yellow [facility] Comment on above: Order Comment: Name Collection Type:: Clean-Voided Midstream Performed By: #### U A, UHCG ####[address] [address] [facility] Glucose Ql (U) Normal Normal Normal [facility] Comment on above: Order Comment: Name Collection Type:: Clean-Voided Midstream Performed By: #### U A, UHCG ####[address] [address] [facility] Ketones Ql (U) Negative Normal Negative [facility] Comment on above: Order Comment: Name Collection Type:: Clean-Voided Midstream Performed By: #### U A, UHCG ####[place] [address] [place] [address] [facility] Leukocyte esterase Test strip Ql (U) Negative Normal Negative [facility] Comment on above: Order Comment: Name Collection Type:: Clean-Voided Midstream Performed By: #### U A, UHCG ####[address] [address] [facility] Nitrite,Urine Negative Normal Negative The [facility] Comment on above: Order Comment: Name Collection Type:: Clean-Voided Midstream Performed By: #### U A, CG ####[address] [address] [facility] Occult Blood,Urine Negative Normal Negative The [facility] Comment on above: Order Comment: Name Collection Type:: Clean-Voided Midstream Performed By: #### U A, CG ####[address] [address] [facility] pH (U) 6.0 [pH] Normal 5.0-9.0 [facility] Comment on above: Order Comment: Name Collection Type:: Clean-Voided Midstream Performed By: #### U A, UHCG ####[address] [address] [facility] Protein,Urine Negative Normal Negative The [facility] Comment on above: Order Comment: Name Collection Type:: Clean-Voided Midstream Performed By: #### U A, UHCG ####[address] [address] [facility] Specificy Shiner,Urine 1.021 Normal 1.001-1.03 0 [facility] Comment on above: Order Comment: Name Collection Type:: Clean-Voided Midstream Performed By: #### U A, UHCG ####[address] [address] [facility] Urobilinogen,Urine Normal Normal Normal [facility] Comment on above: Order Comment: Name Collection Type:: Clean-Voided Midstream Performed By: #### U A, [facility] ####[facility] [id number] [place] [id number] [facility] Urobilinogen Test strip (U) [Mass/Vol]Ordered By: Mary Ellen Magallanes on 10-23-2024 Urobilinogen (U) [Mass/Vol] Urobilinogen [Mass/volume] in Urine by Test strip Normal [facility] WBC Auto (Bld) [#/Vol]Ordere d By: Mary Ellen Magallanes on 10-23-2024 WBC (Bld) [#/Vol] Leukocytes [#/volume ] in Blood by Automated count 3.8-11.6 [facility] X-ray reportOrdered By: Daniel Lewis on 10-23-2024 Study report [facility] Work Phone: XR chest 2V*on 10-23-2024 XR chest 2V* [facility] [place] [address] [place] [id number] XRay Report Signed Patient: Lisa Mendez MR#: [id number] : 1975 Acct:[id number] Age/Sex: 49 / F ADM Date: 10/23/24 Loc: ER Room: Type: [facility] ER Attending Dr: Copies to: Mary Ellen Magallanes APRN Ordering Provider: Mary Ellen Magallanes APRN Date of Service: 10/23/24 XR/XR chest 2V*: Upper Respiratory Infection PA AND LATERAL CHEST: CLINICAL HISTORY: Shortness breath, chest pain, cough COMPARISON: None FINDINGS: Unremarkable cardiomediastinal silhouette. Lungs are clear. No effusion or pneumothorax. Degenerative changes thoracic spine. XR/XR chest 2V* IMPRESSION: NO ACUTE CARDIOPULMONARY ABNORMALITY. Impression dictated by: Kristofer Lewis M.D.10/23/2024 6:29 PM Dictation Location: [place] [address] Transcribed By: [facility] 10/23/241828 Dictated By: Kristofer Lewis MD 10/23/241827 Signed By: 03/21/25 1829 [facility] aPTT in Platelet poor plasma by Coagulation assayOrdered By: Mary Ellen Magallanes on 10-23-2024 aPTT Coag (PPP) [Time] Activated partial thromboplastin time (aPTT) in platelet poor plasma by coagulation a 25.1-36.5 [facility] Comment on above: A hematocrit value g reater than 55% may lead to inaccurate results in coagulation testing. Patients having hematocrit values >55% require a special collection tube for coagulation studies. Please contact the laboratory at [phone] for redraw instructions. pH Test strip (U)Ordered By: Mary Ellen Magallanes on 10-23-2024 pH (U) pH of Urine by Test strip 5.0-9.0 [facility] CNOVon 10-12-2024 CNOV Office Visit (LOORRM ) ----- LISA MENDEZ ([id number]) 1975 F Date Time Provider Department 10/12/24 2:15 PM KWAME MCNEIL During your visit today, we recorded the following information about you: Kwame Mcneil MD 10/12/2024 2:58 PM Signed Lisa Mendez is a patient of Brigida Nobles CNP. CHIEF COMPLAINT: Lisa Mendez is a 49 year old female who presents today for follow up of left hand. HISTORY OF PRESENT ILLNESS: PAIN EVALUATION 10/10/2024 1521 Pain Level: 8 Pain Location: Hand-Left Description: Aching;Cramping;Numbness; Sharp;Shooting;Tenderness Duration Units: Months Frequency: Intermittent Intervention/Comfort measure: Splinting Interval history: She is here for pain at the base of the left thumb. Unfortunately the left thumb first dorsal cortisone injection I gave her last time did not give long-lasting results. She is painful at the first dorsal compartment and base of the thumb. To review, she has previously undergone a left thumb CMC arthroplasty with FCR, a soft tissue interposition with ECRL at the base of the first and second metacarpals and then finally a tight rope suspension plasty as well. REVIEW OF SYMPTOMS: Constitutional: Fever/chills: No Cardiovascular: Chest Pain: No Musculoskeletal: as noted in the HPI Neurologic: as noted in the HPI SOCIAL HISTORY: Tobacco user? No PHYSICAL EXAMINATION: Vitals: There were no vitals taken for this visit. Body Habitus: Well nourished and no acute distress Orientation: Normal, oriented to person, place and time Psych: Normal Skin: Color, texture, turgor normal. No rashes or lesions Sensation: Sensation to light touch is grossly normal bilaterally Specific MSK Exam The left thumb is examined. Multiple well-healed incisions about the thumb and dorsal radial hand. Tender at the first CMC with crepitus. 15 degrees of MP hyperextension. No pain or crepitus at the thumb A1 polly. Tender at the first dorsal compartment. IMAGING: No imaging was performed today. CLINICAL IMPRESSION / ASSESSMENT: (Z98.890) H/O thumb surgery (primary encounter diagnosis) (M65.4) De Quervain's tenosynovitis, left (M18.12) Primary osteoarthritis of first carpometacarpal joint of left hand PLAN: At this point she is interested in surgical intervention as protracted conservative treatment has failed. I can offer Left thumb revision carpometacarpal arthroplasty with slip of abductor pollicis longus tendon and internal brace with suture anchors; left first dorsal compartment release; extensor pollicis brevis transfer and thumb metacarpal phalangeal pinning. Surgery and postoperative course were outlined in detail. All questions answered. Will continue to monitor patient for H/o thumb surgery (primary encounter diagnosis) De quervain's tenosynovitis, left Primary osteoarthritis of first carpometacarpal joint of left hand, patient to schedule visit as per follow up discussed. Kwame Mcneil MD This document has been created with the use of voice recognition technology. It may contain inaccuracies: misspellings, inaccurate syntax or word sense that escaped review. Allergies As of Date: 10/12/2024 Noted Allergy Reaction ALOE VERA 04/02/2012 14 [...] - Itching 2 - Rash Date Reviewed: 10/12/2024 Reviewed by: Nely Kwan OCCA - Fully Assessed Reason for Visit: Established Patient [175] Follow Up [171] Primary Visit Diagnosis:H/O thumb surgery [Z98.890] Other Visit Diagnoses:De Quervain's tenosynovitis, left [M65.4] Primary osteoarthritis of first carpometacarpal joint of left hand [M18.12] Order(s):XR HAND GENERAL 3V PA/LAT/OBL RIGHT [[id number]] Order #: [id number] FUTURE Prescriptions as of 10/12/2024 - pantoprazole DR (PROTONIX) 40 mg tablet TAKE 1 TABLET BY MOUTH 2 TIMES A DAY 30 MINUTES prior to meals - nabumetone (RELAFEN) 500 mg tablet 500 mg. - pregabalin (LYRICA) 100 mg capsule Take 100 mg by mouth two times a day. - polyethylene glycol 3350 (MIRALAX) 17 gram/dose powder Take 17 g by mouth once daily as needed. - lumateperone (CAPLYTA) 10.5 mg capsule Take 10.5 mg by mouth once daily. - pramipexole (MIRAPEX) 0.125 mg tablet TAKE 1 TABLET BY MOUTH 2 TO 3 HOURS BEFORE BEDTIME - cholecalciferol, Vitamin D3, (VITAMIN D3) 1,250 mcg (50,000 unit) cap capsule Take 1 capsule by roly (more content not included)... Normal [facility] XR HAND 3V PA/LAT/OBL RTon 0 10-12-2024 XR HAND 3V PA/LAT/OBL RT * * *Final Report* * * DATE OF EXAM: Oct 12 2024 2:24PM LZX 5346 - XR HAND 3V PA/LAT/OBL RT / PROCEDURE REASON: Right hand pain * * * * Physician Interpretation * * * * X-RAYS RIGHT HAND HISTORY: Pain in mid hand, no known injury.. Right hand pain TECHNIQUE: 3 views of the right hand. COMPARISON: None RESULT: No fracture or dislocation identified. Mild degenerative change noted at the 1st CMC joint and radiocarpal joint with small marginal osteophytes. Joint spaces are otherwise maintained. No erosions or chondrocalcinosis. IMPRESSION: Mild degenerative change. No acute osseous abnormality. 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: [facility] Transcribe Date/Time: Oct 12 2024 3:01P Dictated by : KATIE OMER MD This examination was interpreted and the report reviewed and electronically signed by: KATIE OMER MD on Oct 12 2024 3:02PM EST [id number] Normal [facility] XR Hand - right PA and Later al and Obliqueon 10-12-2024 IMPRESSION: Mild degenerative change. No acute osseous abnormality. 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: [facility] Transcribe Date/Time: Oct 12 2024 3:01P Dictated by : KATIE OMER MD This examination was interpreted and the report reviewed and electronically signed by: KTAIE OMER MD on Oct 12 2024 3:02PM EST DIVISION OF RADIOLOGY * * *Final Report* * * DATE OF EXAM: Oct 12 2024 2:24PM LZX 5346 - XR HAND 3V PA/LAT/OBL RT / PROCEDURE REASON: Right hand pain * * * * Physician Interpretation * * * * X-RAYS RIGHT HAND HISTORY: Pain in mid hand, no known injury.. Right hand pain TECHNIQUE: 3 views of the right hand. COMPARISON: None RESULT: No fracture or dislocation identified. Mild degenerative change noted at the 1st CMC joint and radiocarpal joint with small marginal osteophytes. Joint spaces are otherwise maintained. No erosions or chondrocalcinosis. DIVISION OF RADIOLOGY Provider, [facility] - 10/12/2024 * * *Final Report* * * DATE OF EXAM: Oct 12 2024 2:24PM LZX 5346 - XR HAND 3V PA/LAT/OBL RT / PROCEDURE REASON: Right hand pain * * * * Physician Interpretation * * * * X-RAYS RIGHT HAND HISTORY: Pain in mid hand, no known injury.. Right hand pain TECHNIQUE: 3 views of the right hand. COMPARISON: None RESULT: No fracture or dislocation identified. Mild degenerative change noted at the 1st CMC joint and radiocarpal joint with small marginal osteophytes. Joint spaces are otherwise maintained. No erosions or chondrocalcinosis. IMPRESSION IMPRESSION: Mild degenerative change. No acute osseous abnormality. 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: [facility] Transcribe Date/Time: Oct 12 2024 3:01P Dictated by : KATIE OMER MD This examination was interpreted and the report reviewed and electronically signed by: KATIE OMER MD on Oct 12 2024 3:02PM EST [facility] Radiology Study observation (narrative) [facility] XR Hand - right PA and Later al and ObliqueOrdered By: Maynor Provider on 10-12-2024 [facility] COVID Cepheid NegativeOrdere d By: Kenny Carreno on 10-09-2024 SARS-CoV-2 (COVID-19) Ab IA Ql COVID Cepheid Negative [facility] Comment on above: This is a duplicate Cepheid Xpert Xpress CoV-2/Flu/RSV Plus RNA by RT-PCR result to be used for statistical tracking purpose only. SARS-CoV-2 (COVID-19) RNA DEBBIE+probe Ql (Unsp spec) COVID Cepheid Negative [facility] COVID-19 / Flu A/B / RSV PCR on 10-09-2024 SARS-CoV-2 (COVID-19) RNA DEBBIE+probe Ql (Unsp spec) COVID-19 Cepheid Result Negative for SARS-CoV-2 RNA by RT-PCR Flu A Cepheid Result Negative for Flu A RNA by RT-PCR Flu B Cepheid Result Negative for Flu B RNA by RT-PCR RSV Cepheid Result Negative for RSV RNA by RT-PCR COVID19 Blank Space ---- Reference: Negative COVID19 Blank Space ---- Cepheid Disclaimer The Cepheid Xpert Xpress CoV-2/Flu/RSV [...] or Cepheid Disclaimer revoked sooner. PERFORMED BY: [facility] [address] [place] [address] PATHOLOGIST ELEVATOR DISPATCHER MICHELLE TEE M.D. Normal [facility] Comment on above: Performed By: #### C OVID19 FLU RSV, CEPHEID NEG ####[facility] [place] [address] [facility] Cepheid COVID PCR Negativeon 10-09-2024 SARS-CoV-2 (COVID-19) RNA DEBBIE+probe Ql (Unsp spec) Negative Normal Negative [facility] Comment on above: Result Comment: This is a duplicate Cepheid Xpert Xpress CoV-2/Flu/RSV Plus RNA by RT-PCR result to be used for statistical tracking purpose only. PERFORMED BY: [place] [address] PATHOLOGIST ELEVATOR DISPATCHER MICHELLE TEE M.D. Performed By: #### C OVID19 FLU RSV, CEPHEID NEG ####[facility] [id number] Respiratory specimen influen za A virus, influenza B virus, respiratory syncytical virOrdered By: Kenny Carreno on 10-09-2024 SARS-CoV-2 (COVID-19) RNA DEBBIE+probe Ql (Unsp spec) Respiratory specimen influenza A virus, influenza B virus, respiratory syncytical vir [facility] X-ray reportOrdered By: Olive Rubi on 10-09-2024 Study report [facility] Main [place] [address] [place] [address] XRay Report Signed Patient: Lisa Mendez MR#: [id number] : 1975 Acct:[id number] Age/Sex: 49 / F ADM Date: 5 Loc: ER Room: Type: [facility] ER Attending Dr: Copies to: Kenny Carreno Jr, MD~ Ordering Provider: Kenny Carreno Jr, MD Date of Service: 10/09/24 XR/XR chest 2V*: Upper Respiratory Infection PA AND LATERAL CHEST: CLINICAL HISTORY: Sore throat, cough, wheezing, fever and chills COMPARISON: 09/27/2024 There is no focal parenchymal consolidation, effusion or pneumothorax. The cardiac, hilar and mediastinal silhouettes are within normal limits. There is no vascular congestion. The visualized bony thorax is intact. There is mild levoscoliotic curvature and endplate spurring at the spine. XR/XR chest 2V* IMPRESSION: NO ACUTE CARDIOPULMONARY ABNORMALITY. Impression dictated by: Liz Rubi M.D.10/09/2024 11:50 PM Dictation Location: [place] [address] Transcribed By: [facility] 10/09/24 2842 Dictated By: Liz Rubi MD 10/09/24 6936 Signed By: 10/09/24 3001 [facility] Work Phone: XR chest 2V*on 10-09-2024 XR chest 2V* [facility] Main [place] [address] [place] [address] XRay Report Signed Patient: Lisa Mendez MR#: [id number] : 1975 Acct:[id number] Age/Sex: 49 / F ADM Date: 10/09/24 Loc: ER Room: Type: [facility] ER Attending Dr: Copies to: Kenny Carreno Jr, MD Ordering Provider: Kenny Carreno Jr, MD Date of Service: 10/09/24 XR/XR chest 2V*: Upper Respiratory Infection PA AND LATERAL CHEST: CLINICAL HISTORY: Sore throat, cough, wheezing, fever and chills COMPARISON: 09/27/2024 There is no focal parenchymal consolidation, effusion or pneumothorax. The cardiac, hilar and mediastinal silhouettes are within normal limits. There is no vascular congestion. The visualized bony thorax is intact. There is mild levoscoliotic curvature and endplate spurring at the spine. XR/XR chest 2V* IMPRESSION: NO ACUTE CARDIOPULMONARY ABNORMALITY. Impression dictated by: Liz Rubi M.D.10/09/2024 11:50 PM Dictation Location: [place] [address] Transcribed By: [facility] 10/09/24 2350 Dictated By: Liz Rubi MD 10/09/24 8640 Signed By: 10/09/24 2350 Normal [facility] AMELIA with Reflexon 10-07-2024 AMELIA with Reflex Negative Normal Negative [facility] Comment on above: Order Comment: Reaso n for Exam Hot flashes Reason for Exam Multiple joint pain Result Comment: Perf ormed at: CB - [facility] [address] [id number] Utilization Management Um Nurse: Alireza Kaufman PhD, Phone: [phone] Performed By: #### F SH, ESR, CRP ####[facility] Gkg3397 [address]#### AMELIA CHOICE, ESTRADIOL, RA, LH ####[facility] , C reactive protein [Mass/vol ume] in Serum or PlasmaOrdered By: Brigida Corea on 10-07-2024 CRP [Mass/Vol] C reactive protein [Mass/volume] in Serum or Plasma High 0.0-0.5 [facility] C-Reactive Proteinon 025 C-Reactive Protein 1.9 mg/dL High 0.0-0.5 [facility] Comment on above: Order Comment: Reaso n for Exam Multiple joint pain Reason for Exam Hot flashes Performed By: #### F SH, ESR, CRP ####[facility] Vni7147 [address]#### AMELIA CHOICE, ESTRADIOL, RA, LH ####[facility] , Erythrocyte Sedimentation Ra gaby 10-07-2024 ESR (Bld) [Velocity] 34 mm/h High 0-19 [facility] Comment on above: Order Comment: Reaso n for Exam Multiple joint pain Result Comment: PERF ORMED BY: [facility] [address] [place] [address] PATHOLOGIST ELEVATOR DISPATCHER MICHELLE TEE M.D. Performed By: #### F SH, ESR, CRP ####[facility]#### AMELIA CHOICE, ESTRADIOL, RA, LH ####[facility] , Erythrocyte sedimentation ra te by Photometric methodOrdered By: Brigida Corea on 10-07-2024 ESR Photometric method (Bld) [Velocity] Erythrocyte sedimentation rate by Photometric method High 0-19 [facility] Estradiolon 10-07-2024 Estradiol 53.7 pg/mL Normal . [facility] Comment on above: Order Comment: Reaso n for Exam Hot flashes Reason for Exam Multiple joint pain Result Comment: Adul t Female Range Follicular phase 12.5 - 166.0 Ovulation phase 85.8 - 498.0 Luteal phase 43.8 - 211.0 Postmenopausal <6.0 - 54.7 1st trimester 215.0 - >4300.0 Owen ECLIA methodology Performed at: [facility] [employer] [id number] Utilization Management Um Nurse: Alireza Kaufman PhD, Phone: [phone] PERFORMED BY: [facility] [address] [place] [address] PATHOLOGIST ELEVATOR DISPATCHER MICHELLE TEE M.D. Performed By: #### F SH, ESR, CRP ####[place] [address] [place] [id number] [facility]#### AMELIA CHOICE, ESTRADIOL, RA, LH ####[facility] , Follicle Stimulating Hormone on 10-07-2024 Follicle Stimulating Hormone 4.8 m[iU]/mL Normal [facility] Comment on above: Order Comment: Reaso n for Exam Multiple joint pain Reason for Exam Hot flashes Result Comment: FEMA LE NORMALS (PREMENOPAUSE) MID-FOLLICULAR PHASE: 3.9-8.8 mIU/mL MID-CYCLE PEAK: 4.5-22.5 mIU/mL MID-LUTEAL PHASE: 1.8-5.1 mIU/mL FEMALE NORMALS (POSTMENOPAUSE): 16.7-113.6 mIU/mL MALE NORMALS: 1.3-19.3 mIU/mL PERFORMED BY: [facility] [address] [place] [id number] PATHOLOGIST ELEVATOR DISPATCHER MICHELLE TEE M.D. Performed By: #### F SH, ESR, CRP ####[place] [address] [place] [id number] [facility]#### AMELIA CHOICE, ESTRADIOL, RA, LH ####[facility] , Follitropin [Units/volume] i n Serum or PlasmaOrdered By: Brigida Corea on 10-07-2024 Follitropin Qn Follitropin [Units/volume] in Serum or Plasma [facility] Comment on above: FEMALE NORMALS (OLGA ENOPAUSE) MID-FOLLICULAR PHASE: 3.9-8.8 mIU/mL MID-CYCLE PEAK: 4.5-22.5 mIU/mL MID-LUTEAL PHASE: 1.8-5.1 mIU/mLFEMALE NORMALS (POSTMENOPAUSE): 16.7-113.6 mIU/mLMALE NORMALS: 1.3-19.3 mIU/mL Luteinizing Hormoneon 2024 Luteinizing Hormone 6.9 m[iU]/mL Normal . [facility] Comment on above: Order Comment: Reaso n for Exam Hot flashes Reason for Exam Multiple joint pain Result Comment: Adul t Female Range Follicular phase 2.4 - 12.6 Ovulation phase 14.0 - 95.6 Luteal phase 1.0 - 11.4 Postmenopausal 7.7 - 58.5 Performed By: #### F SH, ESR, CRP ####[facility]#### AMELIA CHOICE, ESTRADIOL, RA, LH ####[facility] , Rheumatoid Factoron 10-08-19 25 Rheumatoid Factor 11.0 [IU]/mL Normal <14.0 [facility] Comment on above: Order Comment: Reaso n for Exam Hot flashes Reason for Exam Multiple joint pain Result Comment: Perf ormed at: [facility] [employer] [facility] [address] [place], [place] [id number] Utilization Management Um Nurse: Alireza Kaufman PhD, Phone: [phone] Performed By: #### F SH, ESR, CRP ####[facility]#### AMELIA CHOICE, ESTRADIOL, RA, LH ####[facility] , Serum or plasma estradiol (E 2) measurement (mass/volume)Ordered By: Brigida Corea on 10-07-2024 E2 [Mass/Vol] Serum or plasma estr adiol (E2) measurement (mass/volume) . [facility] Comment on above: Adult Female Range F ollicular phase 12.5 - 166.0 Ovulation phase 85.8 - 498.0 Luteal phase 43.8 - 211.0 Postmenopausal <6.0 - 54.7 1st trimester 215.0 - >4300.0Roche ECLIA methodologyPerformed at: [facility] [employer] [facility] [place], [place] [id number] Director: Alireza Kaufman PhD, Phone: [phone] Serum or plasma free cefurox chely measurement (mass/volume)Ordered By: Brigida Corea on 10-07-2024 Cefuroxime free [Mass/Vol] Serum or plasma free cefuroxime measurement (mass/volume) Negative [facility] Comment on above: Performed at: [employer] [address] [id number] Director: Alireza Kaufman PhD, Phone: [phone] Serum or plasma lutropin candis surement (units/volume)Ordered By: Brigida Corea on 10-07-2024 Lutropin Qn Serum or plasma lutr opin measurement (units/volume) . [facility] Comment on above: Adult Female Range F ollicular phase 2.4 - 12.6 Ovulation phase 14.0 - 95.6 Luteal phase 1.0 - 11.4 Postmenopausal 7.7 - 58.5 Serum or plasma rheumatoid f actor measurement (units/volume)Ordered By: Brigida Corea on 10-07-2024 Rheumatoid factor Qn Serum or plasma rheumatoid factor measurement (units/volume) <14.0 [facility] Comment on above: Performed at: [employer] [id number] Director: Alireza Kaufman PhD, Phone: [phone] Glucose Glucometer (dC) [M ass/Vol]Ordered By: Annmarie Palmer on 10-01-2024 Glucose [Mass/Vol] Capillary blood gluc ose measurement by glucometer (mass/volume) [facility] Comment on above: Random Glucose Refer ence Range is dependent on time and content of last meal. Glucose of more than 200 mg/dL in a nonstressed, ambulatory subject supports the diagnosis of Diabetes Mellitus. Glucose Poct Glucometerson 0 10-01-2024 Glucose [Mass/Vol] 118 mg/dL Normal [facility] Comment on above: Result Comment: [facility] Glucose Reference Range is dependent on time and content of last meal. Glucose of more than 200 mg/dL in a nonstressed, ambulatory subject supports the diagnosis of Diabetes Mellitus. PERFORMED BY: [facility] [address] PATHOLOGIST ELEVATOR DISPATCHER MICHELLE TEE M.D. Performed By: #### G LUCHESTER ####Point of Care testing, Myron 10-01-2024 L ----- Specimen: Received: 10/01/24 Status: KANNAN Stephens Num: [id number] Spec Type: Surgical Subm Dr: Annmarie Palmer DO Tissues: A Small Intestine - Biopsy/Polyp (SMALL BOWEL BX) B Gastric Biopsy (GASTRIC BX) C Colon Biopsy (DESCENDING COLON POLYP) Procedures: HE/6, Gross/Micro L4/3 Age/ Patient Sex Location Account Attending Physician Lisa Mendez/F [id number] Annmarie Palmer DO SPEC NUM: [id number] RECD: 10/01/24 STATUS: KANNAN MENG NUM: [id number] NIRMALA: 10/01/24-[address] [facility] [address]: Annmarie Palmer DO ENTERED: 10/01/24-1299 [facility] DR: SPEC TYPE: Surgical DEPT: S ENTERED BY: [id number] RECV BY: [id number] ORDERED: HE/6, Gross/Micro L4/3 ORDERED: HE/6, Gross/Micro L4/3 Pathological Diagnosis A. Small bowel, biopsies: Benign small bowel mucosa with focal foveolar metaplasia Negative for features of celiac disease. B. Gastric biopsies: Gastric antral and gastric body mucosa with changes suggestive of reactive gastropathy. Negative for H. pylori-like organisms on H E stain. Negative for intestinal metaplasia, dysplasia and malignancy. C. Descending colon polyp, biopsies: Fragments of tubular adenoma with no high-grade dysplasia. Clinical Information Abdominal pain, nausea vomiting. Part A rule out celiac, Part See rule out H. pylori Gross Description Part A is received in formalin labeled with the patients name, date of , and small bowel BX are 2 pickard-vaughn, focally erythematous, friable, 0.1 and 0.3 cm in greatest dimension tissue bits. The specimen is entirely submitted in a single cassette. (1, ns, [id number] A) PADMINI Specimen: [id number] Received: 10/01/24 [facility] Mengq Num: [id number] Spec Type: Surgical Subm Dr: Annmarie Palmer DO Tissues: A Small Intestine - Biopsy/Polyp (SMALL BOWEL BX) B Gastric Biopsy (GASTRIC BX) C Colon Biopsy (DESCENDING COLON POLYP) Procedures: HE/6, Gross/Micro L4/3 Patient: Lisa Mendez [id number] (Continued) Specimen: [id number] Received: 10/01/24 (Continued) Gross Description (Continued) Signed (signature on file) Alma Storey MD 10/02/24 1126 Specimen: [id number] Received: 10/01/24 Status: KANNAN Stephens Num: [id number] Spec Type: Surgical Subm Dr: Annmarie Palmer DO Tissues: A Small Intestine - Biopsy/Polyp (SMALL BOWEL BX) B Gastric Biopsy (GASTRIC BX) C Colon Biopsy (DESCENDING COLON POLYP) Procedures: HE/6, Gross/Micro L4/3 Patient: Lisa Mendez [id number] (Continued) Specimen: [id number] Received: 10/01/24 (Continued) Gross Description (Continued) Part B is received in formalin labeled with the patients name, date of , and gastric BX's are 2 pickard-vaughn, focally erythematous, friable, 0.3 and 0.5 cm in greatest dimension tissue bits. The specimen is entirely submitted in a single cassette. (1, ns, [id number] The) Part C is received in formalin labeled with the patients name, date of , and descending colon polyp is a pickard-vaughn, focally erythematous, friable, 0.3 cm in greatest dimension polypoid fragment. The specimen is entirely submitted in a single cassette. (1, ns, [id number] C) Microscopic Description sections examined support the above rendered diagnosis. Specimen: [id number] Received: 10/01/24 Status: KANNAN Stephens Num: [id number] Spec Type: Surgical Subm Dr: Annmarie Palmer, DO Tissues: A Small Intestine - Biopsy/Polyp (SMALL BOWEL BX) B Gastric Biopsy (GASTRIC BX) C Colon Biopsy (DESCENDING COLON POLYP) Procedures: HE/6, Gross/Micro L4/3 Patient: Lisa Mendez [id number] (Continued) (more content not included)... Normal [facility] B-Type Natriuretic Peptideon 09-27-2024 Natriuretic peptide B (Bld) [Mass/Vol] 16.0 pg/mL Normal 5-100 [facility] Comment on above: Result Comment: PERF ORMED BY: [facility] [address] [place] [address] PATHOLOGIST ELEVATOR DISPATCHER MICHELLE TEE M.D. Performed By: #### H S TROP, BMP, CK, BNP, CBC, PT ####[address] Basic Metabolic Panelon 09-06 Anion gap [Moles/Vol] 9.7 mmol/L Normal 6.0-15.0 [facility] Comment on above: Performed By: #### H S TROP, BMP, CK, BNP, CBC, PT ####[address] Calcium [Mass/Vol] 8.8 mg/dL Normal 8.6-10.3 [facility] Comment on above: Performed By: #### H S TROP, BMP, CK, BNP, CBC, PT ####[place] [address] [place] [id number] [facility] Chloride [Moles/Vol] 106 mmol/L Normal 98-107 [facility] Comment on above: Performed By: #### H S TROP, BMP, CK, BNP, CBC, PT ####[place] [address] [place] [id number] [facility] CO2 [Moles/Vol] 24.1 mmol/L Normal 21.0-31.0 [facility] Comment on above: Performed By: #### H S TROP, BMP, CK, BNP, CBC, PT ####[place] [id number] [facility] Creatinine [Mass/Vol] 0.51 mg/dL Low 0.60-1.20 [facility] Comment on above: Performed By: #### H S TROP, BMP, CK, BNP, CBC, PT ####[address] Creatinine Clr Calc Pharmacy 152.89 Normal [facility] Comment on above: Result Comment: PERF ORMED BY: [facility] [address] [place] [address] PATHOLOGIST ELEVATOR DISPATCHER MICHELLE TEE M.D. Performed By: #### H S TROP, BMP, CK, BNP, CBC, PT ####[place] [id number] [facility] GFR/1.73 sq M.predicted MDRD (S/P/Bld) [Vol rate/Area] mL/min/{1.73_m2} Normal [facility] Comment on above: Performed By: #### H S TROP, BMP, CK, BNP, CBC, PT ####[place] [id number] [facility] Glucose [Mass/Vol] 138 mg/dL High 70-100 [facility] Comment on above: Result Comment: [place] Glucose Reference Range is dependent on time and content of last meal. Glucose of more than 200 mg/dL in a nonstressed, ambulatory subject supports the diagnosis of Diabetes Mellitus. ADA recommended reference range Performed By: #### H S TROP, BMP, CK, BNP, CBC, PT ####[place] [address] [address] Potassium [Moles/Vol] 3.8 mmol/L Normal 3.5-5.1 [facility] Comment on above: Performed By: #### H S TROP, BMP, CK, BNP, CBC, PT ####[place] [address] [address] Sodium [Moles/Vol] 136 mmol/L Normal 136-145 [facility] Comment on above: Performed By: #### H S TROP, BMP, CK, BNP, CBC, PT ####[place] [address] [address] Urea nitrogen [Mass/Vol] 18 mg/dL Normal 7-25 [facility] Comment on above: Performed By: #### H S TROP, BMP, CK, BNP, CBC, PT ####[place] [address] [address] Basophils Auto (Bld) [#/Vol] Ordered By: Kevin Barger on 09-27-2024 Basophils (Bld) [#/Vol] Automated basophil count 0.0-0.2 [facility] Basophils/100 WBC Auto (Bld) Ordered By: Kevin Barger on 09-27-2024 Basophils/100 WBC (Bld) Automated basophil % . [facility] COVID Cepheid NegativeOrdere d By: Kevin Barger on 09-27-2024 SARS-CoV-2 (COVID-19) Ab IA Ql COVID Cepheid Negative [facility] Comment on above: This is a duplicate Cepheid Xpert Xpress CoV-2/Flu/RSV Plus RNA by RT-PCR result to be used for statistical tracking purpose only. SARS-CoV-2 (COVID-19) RNA DEBBIE+probe Ql (Unsp spec) COVID Cepheid Negative [facility] COVID-19 / Flu A/B / RSV PCR on 09-27-2024 SARS-CoV-2 (COVID-19) RNA DEBBIE+probe Ql (Unsp spec) COVID-19 Cepheid Result Negative for SARS-CoV-2 RNA by RT-PCR Flu A Cepheid Result Negative for Flu A RNA by RT-PCR Flu B Cepheid Result Negative for Flu B RNA by RT-PCR RSV Cepheid Result Negative for RSV RNA by RT-PCR COVID19 Blank Space ---- Reference: Negative COVID19 Blank Space ---- Cepheid Disclaimer The Cepheid Xpert Xpress CoV-2/Flu/RSV [...] or Cepheid Disclaimer revoked sooner. PERFORMED BY: [facility] [place] [address] PATHOLOGIST ELEVATOR DISPATCHER MICHELLE TEE M.D. Normal [facility] Comment on above: Performed By: #### C OVID19 FLU RSV, CEPHEID NEG ####[place] [address] [place] [address] [facility] Calcium [Mass/volume] in Ser um or PlasmaOrdered By: Kevin Barger on 09-27-2024 Calcium [Mass/Vol] Calcium [Mass/volume ] in Serum or Plasma 8.6-10.3 [facility] Carbon dioxide, total [Moles /volume] in Serum or PlasmaOrdered By: Kevin Barger on 09-27-2024 CO2 [Moles/Vol] Carbon dioxide, tota l [Moles/volume] in Serum or Plasma 21.0-31.0 [facility] Cepheid COVID PCR Negativeon 09-27-2024 SARS-CoV-2 (COVID-19) RNA DEBBIE+probe Ql (Unsp spec) Negative Normal Negative [facility] Comment on above: Result Comment: This is a duplicate CepEmitlessid Xpert Xpress CoV-2/Flu/RSV Plus RNA by RT-PCR result to be used for statistical tracking purpose only. PERFORMED BY: [facility] [address] [place] [id number] PATHOLOGIST ELEVATOR DISPATCHER MICHELLE TEE M.D. Performed By: #### C OVID19 FLU RSV, CEPHEID NEG ####[address] [address] [place] Chloride [Moles/volume] in S claudia or PlasmaOrdered By: Kevin Barger on 09-27-2024 Chloride [Moles/Vol] Chloride [Moles/vol ume] in Serum or Plasma 98-107 [facility] Complete Blood Count Auto Di ffon 09-27-2024 Basophils (Bld) [#/Vol] 0.0 10*3/uL Normal 0.0-0.2 [facility] Comment on above: Result Comment: PERF ORMED BY: [facility] [address] [place] [id number] PATHOLOGIST ELEVATOR DISPATCHER MICHELLE TEE M.D. Performed By: #### H S TROP, BMP, CK, BNP, CBC, PT ####[place] [id number] [place] Basophils/100 WBC (Bld) 0.5 % Normal . [facility] Comment on above: Performed By: #### H S TROP, BMP, CK, BNP, CBC, PT ####[address] Eosinophils (Bld) [#/Vol] 0.3 10*3/uL Normal 0.0-0.45 [facility] Comment on above: Performed By: #### H S TROP, BMP, CK, BNP, CBC, PT ####[address] Eosinophils/100 WBC (Bld) 3.0 % Normal . [facility] Comment on above: Performed By: #### H S TROP, BMP, CK, BNP, CBC, PT ####[address] Erythrocyte distribution width (RBC) [Ratio] 13.4 % Normal 11.9-15.3 [facility] Comment on above: Performed By: #### H S TROP, BMP, CK, BNP, CBC, PT ####[address] Hematocrit (Bld) [Volume fraction] 35.7 % Normal 34.0-46.4 [facility] Comment on above: Performed By: #### H S TROP, BMP, CK, BNP, CBC, PT ####[address] Hemoglobin (Bld) [Mass/Vol] 12.5 g/dL Normal 11.8-15.4 [facility] Comment on above: Performed By: #### H S TROP, BMP, CK, BNP, CBC, PT ####[address] Lymphocytes (Bld) [#/Vol] 2.3 10*3/uL Normal 1.00-4.8 [facility] Comment on above: Performed By: #### H S TROP, BMP, CK, BNP, CBC, PT ####[address] Lymphocytes/100 WBC (Bld) 25.5 % Normal . [facility] Comment on above: Performed By: #### H S TROP, BMP, CK, BNP, CBC, PT ####[address] MCH (RBC) [Entitic mass] 29.1 pg Normal 24.7-34.3 [facility] Comment on above: Performed By: #### H S TROP, BMP, CK, BNP, CBC, PT ####[address] MCV (RBC) [Entitic vol] 83.0 fL Normal 80-100 [facility] Comment on above: Performed By: #### H S TROP, BMP, CK, BNP, CBC, PT ####[address] Mean Corpuscular HGB Conc 35.0 g/dL Normal 32.0-35.0 [facility] Comment on above: Performed By: #### H S TROP, BMP, CK, BNP, CBC, PT ####[address] Monocytes (Bld) [#/Vol] 0.8 10*3/uL Normal 0.0-0.8 [facility] Comment on above: Performed By: #### H S TROP, BMP, CK, BNP, CBC, PT ####[address] Monocytes/100 WBC (Bld) 18.17 % Normal 0.00-20.00 [facility] Comment on above: Performed By: #### H S TROP, BMP, CK, BNP, CBC, PT ####[address] Monocytes/100 WBC (Bld) 8.8 % Normal . [facility] Comment on above: Performed By: #### H S TROP, BMP, CK, BNP, CBC, PT ####[address] Neutrophils (Bld) [#/Vol] 5.7 10*3/uL Normal 1.8-7.7 [facility] Comment on above: Performed By: #### H S TROP, BMP, CK, BNP, CBC, PT ####[address] Neutrophils/100 WBC (Bld) 62.2 % Normal . [facility] Comment on above: Performed By: #### H S TROP, BMP, CK, BNP, CBC, PT ####[address] NRBC% 0.1 /100{WBC} Normal 0-0.5 [facility] Comment on above: Performed By: #### H S TROP, BMP, CK, BNP, CBC, PT ####[address] Platelet mean volume (Bld) [Entitic vol] 7.0 fL Normal 6.3-10.7 [facility] Comment on above: Performed By: #### H S TROP, BMP, CK, BNP, CBC, PT ####[address] Platelets (Bld) [#/Vol] 265 10*3/uL Normal 150-450 [facility] Comment on above: Performed By: #### H S TROP, BMP, CK, BNP, CBC, PT ####[address] RBC (Bld) [#/Vol] 4.30 10*6/uL Normal 3.60-5.00 [facility] Comment on above: Performed By: #### H S TROP, BMP, CK, BNP, CBC, PT ####[address] WBC (Bld) [#/Vol] 9.1 10*3/uL Normal 3.8-11.6 [facility] Comment on above: Performed By: #### H S TROP, BMP, CK, BNP, CBC, PT ####[address] Creatine Kinaseon 09-27-2024 CK [Catalytic activity/Vol] 153 U/L Normal 30 [facility] Comment on above: Performed By: #### H S TROP, BMP, CK, BNP, CBC, PT ####[facility] [address] [place] [id number] [facility] Creatine kinase [Enzymatic a ctivity/volume] in Serum or PlasmaOrdered By: Kvein Barger on 09-27-2024 CK [Catalytic activity/Vol] Creatine kinase [Enzymatic activity/volume] in Serum or Plasma [facility] Creatinine [Mass/volume] in Serum or PlasmaOrdered By: Kevin Barger on 09-27-2024 Creatinine [Mass/Vol] Creatinine [Mass/v olume] in Serum or Plasma Low 0.60-1.20 [facility] ECG 12 lead ECGon 09-27-2024 ECG 12 lead ECG [facility] Main [place] [address] [place] [address] Electrocardiograph Report Signed Patient: Lisa Mendez MR#: [id number] : 1975 Acct:[id number] Age/Sex: 49 / F ADM Date: 09/27/24 Loc: ER Room: Type: [facility] ER Attending Dr: Ordering Provider: Kevin Barger DO Date of Service: 09/27/24 ECG/ECG 12 lead ECG: Chest Pain Copies to: Test Reason : Blood Pressure : 134/60 mmHG Vent. Rate : 81 BPM Atrial Rate : 81 BPM P-R Int : 162 ms QRS Dur : 84 ms QT Int : 384 ms P-R-T Axes : 47 93 39 degrees QTcB Int : 446 ms Normal sinus rhythm with sinus arrhythmia Rightward axis Possible Inferior infarct (cited on or before 27-Sep-2024) Cannot rule out Anterior infarct (cited on or before 27-Sep-2024) Abnormal ECG When compared with ECG of 27-Sep-2024 14:36, (Unconfirmed) No significant change was found Confirmed by KEVIN BARGER DO ([id number]) on 09/28/2024 1:34:21 AM Referred By: Electronically Signed By: KEVIN BARGER DO Transcribed By: MUS Signed By Kevin Barger DO 09/28 013 Normal [facility] ECG 12 lead ECG [facility] [address] Electrocardiograph Report Signed Patient: Lisa Mendez MR#: [id number] : 1975 Acct:[id number] Age/Sex: 49 / F ADM Date: 09/27/24 Loc: ER Room: Type: [facility] ER Attending Dr: Ordering Provider: Kevin Barger DO Date of Service: 09/27/24 ECG/ECG 12 lead ECG: Chest Pain Copies to: Test Reason : Blood Pressure : 171/77 mmHG Vent. Rate : 88 BPM Atrial Rate : 88 BPM P-R Int : 146 ms QRS Dur : 84 ms QT Int : 374 ms P-R-T Axes : 48 108 27 degrees QTcB Int : 452 ms Normal sinus rhythm Possible Inferior infarct , age undetermined Possible Anterolateral infarct , age undetermined Abnormal ECG When compared with ECG of 22-Aug-2024 02:22, Nonspecific T wave abnormality now evident in Anterior leads Confirmed by KEVIN BARGER DO ([id number]) on 09/28/2024 1:34:22 AM Referred By: Electronically Signed By: KEVIN BARGER DO Transcribed By: MUS Signed By Kevin Barger DO 09/28 Normal [facility] Eosinophils Auto (Bld) [#/Vo l]Ordered By: Kevin Barger on 09-27-2024 Eosinophils (Bld) [#/Vol] Automated eosinophil count 0.0-0.45 [facility] Eosinophils/100 WBC Auto (Bl d)Ordered By: Kevin Barger on 09-27-2024 Eosinophils/100 WBC (Bld) Automated eosinophil % . [facility] Erythrocyte distribution wid th Auto (RBC) [Ratio]Ordered By: Kevin Barger on 09-27-2024 Erythrocyte distribution width (RBC) [Ratio] Erythrocyte distribution width [Ratio] by Automated count 11.9-15.3 [facility] Glucose [Mass/volume] in Ser um or PlasmaOrdered By: Kevin Barger on 09-27-2024 Glucose [Mass/Vol] Glucose [Mass/volume ] in Serum or Plasma High 70-100 [facility] Comment on above: ADA recommended refe rence rangeRandom Glucose Reference Range is dependent on time and content of last meal. Glucose of more than 200 mg/dL in a nonstressed, ambulatory subject supports the diagnosis of Diabetes Mellitus. Hematocrit Auto (Bld) [Volum e fraction]Ordered By: Kevin Barger on 09-27-2024 Hematocrit (Bld) [Volume fraction] Hematocrit [Volume Fraction] of Blood by Automated count 34.0-46.4 [facility] Hemoglobin [Mass/volume] in BloodOrdered By: Kevin Barger on 09-27-2024 Hemoglobin (Bld) [Mass/Vol] Hemoglobin [Mass/volume] in Blood 11.8-15.4 [facility] INR in Platelet poor plasma by Coagulation assayOrdered By: Kevin Barger on 09-27-2024 INR Coag (PPP) [Relative time] INR in Platelet poor plasma by Coagulation assay [facility] Comment on above: INR Therapeutic Rang e A) Pre- and Peroperative OAT started two weeks before surgery. NOT HIP SURGERY: 1.5 - 2.5 HIP SURGERY: 2 - 3B) Primary and secondary prevention of venous THROMBOSIS: 2 - 3C) Active venous thrombosis, pulmonary embolismand prevention of recurrent venous thrombosis: 2 - 3D) Prevention of arterial thromboembolismincluding patients with mechanical heart valves: 3 - 4.5 Leukocytes [#/volume] correc cristian for nucleated erythrocytes in Blood by Automated counOrdered By: Kevin Barger on 09-27-2024 WBC corrected for nucl RBC Auto (Bld) [#/Vol] Leukocytes [#/volume] corrected for nucleated erythrocytes in Blood by Automated coun 3.8-11.6 [facility] Lymphocytes Auto (Bld) [#/Vo l]Ordered By: Kevin Barger on 09-27-2024 Lymphocytes (Bld) [#/Vol] Lymphocytes [#/volume] in Blood by Automated count 1.00-4.8 [facility] Lymphocytes/100 WBC Auto (Bl d)Ordered By: Kevin Barger on 09-27-2024 Lymphocytes/100 WBC (Bld) Lymphocytes/100 leukocytes in Blood by Automated count . [facility] MCH Auto (RBC) [Entitic mass ]Ordered By: Kevin Barger on 09-27-2024 MCH (RBC) [Entitic mass] MCH [Entitic mass] by Automated count 24.7-34.3 [facility] MCHC Auto (RBC) [Mass/Vol]Or dered By: Kevin Barger on 09-27-2024 MCHC (RBC) [Mass/Vol] MCHC [Mass/volume] by Automated count 32.0-35.0 [facility] MCV Auto (RBC) [Entitic vol] Ordered By: Kevin Barger on 09-27-2024 MCV (RBC) [Entitic vol] MCV [Entitic volume] by Automated count 80-100 [facility] Monocyte distribution width [Entitic volume] in Blood by AutomatedOrdered By: Kevin Barger on 09-27-2024 Monocyte distribution width Auto (Bld) [Entitic vol] Monocyte distribution width [Entitic volume] in Blood by Automated 0.00-20.00 [facility] Monocytes Auto (Bld) [#/Vol] Ordered By: Kevin Barger on 09-27-2024 Monocytes (Bld) [#/Vol] Automated blood monocyte count 0.0-0.8 [facility] Monocytes/100 WBC Auto (Bld) Ordered By: Kevin Barger on 09-27-2024 Monocytes/100 WBC (Bld) Automated monocyte % . [facility] Natriuretic peptide B [Mass/ Vol]Ordered By: Kevin Barger on 09-27-2024 Natriuretic peptide B (Bld) [Mass/Vol] BNP ser/plas 5-100 [facility] Neutrophils Auto (Bld) [#/Vo l]Ordered By: Kevin Barger on 09-27-2024 Neutrophils (Bld) [#/Vol] Neutrophils [#/volume] in Blood by Automated count 1.8-7.7 [facility] Neutrophils/100 WBC Auto (Bl d)Ordered By: Kevin Barger on 09-27-2024 Neutrophils/100 WBC (Bld) Automated neutrophil % . [facility] No Panel InformationOrdered By: Kevin Barger on 09-27-2024 Estimated GFR (CKD-EPI) > 60.0 mL/Min [facility] Creatinine Clearance (Chem 152.89 [facility] > 60.0 mL/Min [facility] 152.89 [facility] Nucleated erythrocytes [Pres ence] in Blood by Automated countOrdered By: Kevin Barger on 09-27-2024 Nucleated RBC Auto Ql (Bld) Nucleated erythrocytes [Presence] in Blood by Automated count 0-0.5 [facility] Platelet mean volume Auto (B ld) [Entitic vol]Ordered By: Kevin Barger on 09-27-2024 Platelet mean volume (Bld) [Entitic vol] Platelet mean volume [Entitic volume] in Blood by Automated count 6.3-10.7 [facility] Platelets Auto (Bld) [#/Vol] Ordered By: Kevin Barger on 09-27-2024 Platelets (Bld) [#/Vol] Platelets [#/volume] in Blood by Automated count 150-450 [facility] Potassium [Moles/volume] in Serum or PlasmaOrdered By: Kevin Barger on 09-27-2024 Potassium [Moles/Vol] Potassium [Moles/v olume] in Serum or Plasma 3.5-5.1 [facility] Prothrombin Time INRon 09-27 INR Coag (PPP) [Relative time] 0.9 {INR} Normal [facility] Comment on above: Result Comment: INR Therapeutic Range A) Pre- and Peroperative OAT started two weeks before surgery. NOT HIP SURGERY: 1.5 - 2.5 HIP SURGERY: 2 - 3 B) Primary and secondary prevention of venous THROMBOSIS: 2 - 3 C) Active venous thrombosis, pulmonary embolism and prevention of recurrent venous thrombosis: 2 - 3 D) Prevention of arterial thromboembolism including patients with mechanical heart valves: 3 - 4.5 PERFORMED BY: [facility] [address] [facility] [address] PATHOLOGIST ELEVATOR DISPATCHER MICHELLE TEE M.D. Performed By: #### H S TROP, BMP, CK, BNP, CBC, PT ####[facility] [place] [address] [facility] PT Coag (PPP) [Time] 10.5 s Normal 9.0-12.9 [facility] Comment on above: Result Comment: A he matocrit value greater than 55% may lead to inaccurate results in coagulation testing. Patients having hematocrit values >55% require a special collection tube for coagulation studies. Please contact the laboratory at [phone] for redraw instructions. Performed By: #### H S TROP, BMP, CK, BNP, CBC, PT ####[facility] [address] [place] [id number] [facility] Prothrombin time (PT)Ordered By: Kevin Barger on 09-27-2024 PT Coag (PPP) [Time] Prothrombin time (PT) 9.0- 12.9 [facility] Comment on above: A hematocrit value g reater than 55% may lead to inaccurate results in coagulation testing. Patients having hematocrit values >55% require a special collection tube for coagulation studies. Please contact the laboratory at [phone] for redraw instructions. RBC Auto (Bld) [#/Vol]Ordere d By: Kevin Barger on 09-27-2024 RBC (Bld) [#/Vol] Erythrocytes [#/volu me] in Blood by Automated count 3.60-5.00 [facility] Respiratory specimen influen za A virus, influenza B virus, respiratory syncytical virOrdered By: Kevin Barger on 09-27-2024 SARS-CoV-2 (COVID-19) RNA DEBBIE+probe Ql (Unsp spec) Respiratory specimen influenza A virus, influenza B virus, respiratory syncytical vir [facility] SARS-CoV-2 (COVID-19) RNA DEBBIE+probe Ql (Unsp spec) Respiratory specimen influenza A virus, influenza B virus, respiratory syncytical vir [facility] Serum or plasma anion gap de terminationOrdered By: Kevin Barger on 09-27-2024 Anion gap [Moles/Vol] Serum or plasma an ion gap determination 6.0-15.0 [facility] Sodium [Moles/volume] in Ser um or PlasmaOrdered By: Kevin Barger on 09-27-2024 Sodium [Moles/Vol] Sodium [Moles/volume ] in Serum or Plasma 136-145 [facility] Troponin I High Sensitivityo n 09-27-2024 Troponin I High Sensitivity <3 Normal 0-15 [facility] Comment on above: Result Comment: The Troponin units of report have been changed to meet the Chest Pain Accreditation requirement, element EC5.M1l2. Troponin units are changed from pg/ml to ng/L. Also, the decimal is removed and results are in whole numbers. PERFORMED BY: [facility] [address] [place] [address] PATHOLOGIST ELEVATOR DISPATCHER MICHELLE TEE M.D. Performed By: #### H S TROP ####[place] [address] [place] [id number] [facility] Troponin I High Sensitivity <3 Normal 0-15 [facility] Comment on above: Result Comment: The Troponin units of report have been changed to meet the Chest Pain Accreditation requirement, element EC5.M1l2. Troponin units are changed from pg/ml to ng/L. Also, the decimal is removed and results are in whole numbers. PERFORMED BY: [facility] [address] [address] PATHOLOGIST ELEVATOR DISPATCHER MICHELLE TEE M.D. Performed By: #### H S TROP, BMP, CK, BNP, CBC, PT ####[place] [id number] [facility] Troponin I.cardiac [Mass/vol ume] in Serum or Plasma by Detection limit <= 0.01 ng/Ordered By: Kevin Barger on 09-27-2024 Troponin I.cardiac DL <= 0.01 ng/mL [Mass/Vol] Troponin I.cardiac [Mass/volume] in Serum or Plasma by Detection limit <= 0.01 ng/ 0-15 [facility] Comment on above: The Troponin units o f report have been changed to meet the Chest Pain Accreditation requirement, element EC5.M1l2. Troponin units are changed from pg/ml to ng/L. Also, the decimal is removed and results are in whole numbers. Urea nitrogen [Mass/volume] in Serum or PlasmaOrdered By: Keivn Barger on 09-27-2024 Urea nitrogen [Mass/Vol] Urea nitrogen [Mass/volume] in Serum or Plasma 7-25 [facility] WBC Auto (Bld) [#/Vol]Ordere d By: Kevin Barger on 09-27-2024 WBC (Bld) [#/Vol] Leukocytes [#/volume ] in Blood by Automated count 3.8-11.6 [facility] X-ray reportOrdered By: Daniel Lewis on 09-27-2024 Study report [facility] Main [address] [address] XRay Report Signed Patient: Lisa Mendez MR#: [id number] : 1975 Acct:[id number] Age/Sex: 49 / F ADM Date: 5 Loc: ER Room: Type: [facility] ER Attending Dr: Copies to: Kevin Barger DO~ Ordering Provider: Kevin Barger DO Date of Service: 09/27/24 XR/XR chest 2V*: Chest Pain PA AND LATERAL CHEST: CLINICAL HISTORY: Chest pain, shortness breath COMPARISON: 01/03/2024 FINDINGS: Cardiac silhouette unremarkable in size. No consolidation pneumothorax pleural effusion or free air. XR/XR chest 2V* IMPRESSION: NO ACUTE CARDIOPULMONARY ABNORMALITY. Impression dictated by: Kristofer Lewis M.D.09/27/2024 6:44 PM Dictation Location: [place] [address] Transcribed By: [facility] 09/27/241843 Dictated By: Kristofer Lewis MD 09/27/241842 Signed By: 09/27/241843 [facility] Work Phone: XR chest 2V*on 09-27-2024 XR chest 2V* [facility] Main [address] [address] XRay Report Signed Patient: Lisa Mendez MR#: [id number] : 1975 Acct:[id number] Age/Sex: 49 / F ADM Date: 09/27/24 Loc: ER Room: Type: [facility] ER Attending Dr: Copies to: Kevin Barger DO Ordering Provider: Kevin Barger DO Date of Service: 09/27/24 XR/XR chest 2V*: Chest Pain PA AND LATERAL CHEST: CLINICAL HISTORY: Chest pain, shortness breath COMPARISON: 01/03/2024 FINDINGS: Cardiac silhouette unremarkable in size. No consolidation pneumothorax pleural effusion or free air. XR/XR chest 2V* IMPRESSION: NO ACUTE CARDIOPULMONARY ABNORMALITY. Impression dictated by: Kristofer Lewis M.D.09/27/2024 6:44 PM Dictation Location: [facility] Transcribed By: HARLAN 09/27/241843 Dictated By: Kristofer Lewis MD 09/27/241842 Signed By: 09/27/241843 Normal [facility] X-ray reportOrdered By: Daniel Lewis on 09-17-2024 Study report [facility] Main [address] [address] XRay Report Signed Patient: Lisa Mendez MR#: [id number] : 1975 Acct:[id number] Age/Sex: 49 / F ADM Date: 5 Loc: XD Room: Type: [facility] CLI Attending Dr: No Desir MD Copies to: No Desir MD~ Ordering Provider: No Desir MD Date of Service: 09/17/24 XR/XR KUB: N20.0 KUB: CLINICAL INFORMATION: Kidney stone follow-up COMPARISON: CT 08/07/2024 FINDINGS: Left nephrolithiasis grossly similar to the prior study, largest measuring 6 mm. No right-sided calculi. No bowel obstruction. No free air. XR/XR KUB IMPRESSION: Stable left-sided nephrolithiasis. Impression dictated by: Kristofer Lewis M.D.09/17/2024 10:28 PM Dictation Location: [facility] Transcribed By: HARLAN 09/17/242227 Dictated By: Kristofer Lewis MD 09/17/242225 Signed By: 09/17/242227 [facility] Work Phone: Study report [address] [address] XRay Report Signed Patient: Lisa Mendez MR#: [id number] : 1975 Acct:[id number] Age/Sex: 49 / F ADM Date: 5 Loc: RYR291 Room: Type: [facility] CLI Attending Dr: Ori Marin PA-C Copies to: RYLEY Winslow~ Ordering Provider: RYLEY Winslow Date of Service: 09/17/24 XR/XR lumbar spine min 4V*: W19.XXXA - Unspecified fall, initial encounter LUMBAR SPINE - 5 views CLINICAL HISTORY: Fall, Pain COMPARISON: 10/27/2023 FINDINGS: The lumbar vertebral heights maintained. Suspect mild loss of height involving the lower thoracic vertebral bodies, chronic. Otherwise no fracture malalignment. Moderate facet arthropathy L4-S1. Mild facet arthropathy mid lumbar spine. XR/XR lumbar spine min 4V* IMPRESSION: Moderate predominantly posterior element degenerative changes lumbosacral junction. No acute lumbar fracture or malalignment. Impression dictated by: Kristofer Lewis M.D.09/17/2024 7:02 PM Dictation Location: [employer] Transcribed By: HARLAN 09/17/241901 Dictated By: Kristofer Lewis MD 09/17/241858 Signed By: 09/17/241901 [facility] Work Phone: XR KUBon 09-17-2024 XR KUB [facility] [place] [address] XRay Report Signed Patient: Lisa Mendez MR#: [id number] : 1975 Acct:[id number] Age/Sex: 49 / F ADM Date: 09/17/24 Loc: XD Room: Type: [facility] Attending Dr: No Desir MD Copies to: No Desir MD Ordering Provider: No Desir MD Date of Service: 09/17/24 XR/XR KUB: N20.0 KUB: CLINICAL INFORMATION: Kidney stone follow-up COMPARISON: CT 08/07/2024 FINDINGS: Left nephrolithiasis grossly similar to the prior study, largest measuring 6 mm. No right-sided calculi. No bowel obstruction. No free air. XR/XR KUB IMPRESSION: Stable left-sided nephrolithiasis. Impression dictated by: Kristofer Lewis M.D.09/17/2024 10:28 PM Dictation Location: [facility] Transcribed By: HARLAN 09/17/242227 Dictated By: Kristofer Lewis MD 09/17/242225 Signed By: 09/17/242227 Normal [facility] XR lumbar spine min 4V*on XR lumbar spine min 4V* [facility] Main [place] [address] [place] [address] XRay Report Signed Patient: Lisa Mendez MR#: [id number] : 1975 Acct:[id number] Age/Sex: 49 / F ADM Date: 09/17/24 Loc: VOZ123 Room: Type: [facility] Attending Dr: Ori HEDRICK-C Copies to: RYLEY Winslow Ordering Provider: RYLEY Winslow Date of Service: 09/17/24 XR/XR lumbar spine min 4V*: W19.XXXA - Unspecified fall, initial encounter LUMBAR SPINE - 5 views CLINICAL HISTORY: Fall, Pain COMPARISON: 10/27/2023 FINDINGS: The lumbar vertebral heights maintained. Suspect mild loss of height involving the lower thoracic vertebral bodies, chronic. Otherwise no fracture malalignment. Moderate facet arthropathy L4-S1. Mild facet arthropathy mid lumbar spine. XR/XR lumbar spine min 4V* IMPRESSION: Moderate predominantly posterior element degenerative changes lumbosacral junction. No acute lumbar fracture or malalignment. Impression dictated by: Kristofer Lewis M.D.09/17/2024 7:02 PM Dictation Location: [facility] Transcribed By: HARLAN 09/17/241901 Dictated By: Kristofer Lewis MD 09/17/241858 Signed By: 09/17/241901 Normal [facility] Chuck 09-15-2024 CNPN Telephone ([facility]) ----- LISA MENDEZ ([id number]) 1975 F Date Time Provider Department 09/15/24 MIMI SINGH GASTSP During your visit today, we recorded the following information about you: Alma Kirby 09/15/2024 4:28 PM Signed Gp ref and 4 hr ges in scanned docs Intake needed Marion Shaw 09/16/2024 10:13 AM Signed Gastric Emptying Study? Yes Scanned docs Has the patient had a Smart Pill? No When was your last EGD? Patient is scheduled 10/01/24 Has the patient had Gastric Bypass? No Has the patient had a Gastric Sleeve? No Has the patient had a Juan or Hiatal Hernia Repair? No Gallbladder: 4 yrs ago Has the patient had POP/Pyloroplasty? No Is the patient currently on TPN? No Does the patient have a G/J Tube? No Do you have at least 3 bowel movements a week? Yes Referring Provider: Marion Lehman 10/06/2024 1:50 PM Signed Attempted to contact patient in regards to EGD still needed for review. VM is full and unable to leave message Marion Shaw 10/09/2024 3:42 PM Signed Left vm in regards to egd still needed for review Marion Shaw 10/16/2024 7:36 AM Signed Records in scanned docs ready for review. Mimi Singh DO 10/16/2024 7:50 AM Signed EMPTIES: Me, surgery, behavioral and nutrition, egg is in Mimi Singh DO 10/16/2024 7:50 AM Signed Addended by: MIMI SINGH on: 10/16/2024 07:50 AM Modules accepted: Melony Churchill, Research Coordinator 10/16/2024 9:09 AM Signed Screens positive for EMPTIES Marion Shaw 10/16/2024 9:37 AM Signed Left vm to call office to schedule with GP Team Marion Shaw 10/27/2024 11:21 AM Signed 2nd attempt to schedule with GP Team Shanthi Yanes 11/05/2024 4:19 PM Signed Patient calling to schedule Marion Shaw 11/11/2024 11:00 AM Signed Left vm to call office to schedule with GP Team Marion Shaw 11/25/2024 8:07 AM Signed 4th attempt: Left vm to call office to schedule with GP Team Shanthi Yanes 12/01/2024 12:11 PM Signed Patient called back said to please call again dre. Marion Shaw 12/02/2024 11:56 AM Signed Patient is scheduled with GP Team/reese Allergies As of Date: 09/15/2024 Noted Allergy Reaction ALOE VERA 04/02/2012 14 [...] - Itching 2 - Rash Date Reviewed: 08/31/2024 Reviewed by: Mode Mcneil RN - Fully Assessed Primary Visit Diagnosis:Gastroparesis [K31.84] Order(s):EGG (ELECTROGASTROGRAPHY) [10598TIN] Order #: [id number] Prescriptions as of 12/02/2024 - pregabalin (LYRICA) 150 mg capsule Take 150 mg by mouth once daily. - QUEtiapine (SEROQUEL) 25 mg tablet Take 25 mg by mouth daily at bedtime. - potassium chloride 20 mEq TbER Take by mouth once daily. - ipratropium-albuterol (DUONEB) 0.5 mg-3 mg(2.5 mg base)/3 mL nebu Inhale 3 mL as instructed every 6 hours as needed for wheezing/shortness of breath. - HYDROMET 5-1.5 mg/5 mL syrup Take 5 mL by mouth every 6 hours as needed for cough. - benzonatate (TESSALON PERLE) 100 mg capsule Take 100 mg by mouth two times a day as needed for cough. - albuterol (PROVENTIL) 2.5 mg /3 mL (0.083 %) nebulizer solution Use 2.5 mg via nebulizer every 6 hours as needed for wheezing/shortness of breath. - VENTOLIN HFA 90 mcg/actuation inhaler Inhale 1 puff as instructed every 6 hours as needed. - nabumetone (RELAFEN) 500 mg tablet 500 mg. - pramipexole (MIRAPEX) 0.125 mg tablet TAKE [...] mg subcutaneously one time a week. - carbidopa-levodopa (SINEMET 10-100) 10-100 mg per tablet 1 tablet daily at bedtime. Problem List As Of Date 09/15/2024 Noted Resolved NO SHOW [] 12/09/2014 Right ankle pain [M25.571] 06/03/2015 Pain in right foot [M79.671] 06/03/2015 Lisfranc dislocation [S93.326A] 06/03/2015 DJD (degenerative joint disease), ankle and mae*06/23/2015 PTTD (posterior tibial tendon dysfunction) [M76*06/23/2015 Morbi (more content not included)... Normal [facility] No Panel Informationon 09-15 Radiology Study observation (narrative) [facility] XR Ankle - left 3 [facility] Result: Notably degenerative changes to the midfoot with plantar and posterior calcaneal enthesophytes and diminished joint space to the sinus tarsi and subtalar joint and minimal changes to the left [facility]otalar [facility] 3 [facility] 0 09-15-2024 Imaging Result: Notable degenerative changes to the midfoot with notable plantar posterior calcaneal enthesophytes with degenerative changes sinus tarsi subtalar joint and minimal degenerative changes to the tibiotalar joint [facility] gastric emptying studyon 09-09-2024 PA gastric emptying study [facility] Main [place] [address] [place] [id number] Nuclear Medicine Report Signed Patient: Lisa Mendez MR#: [id number] : 1975 Acct:[id number] Age/Sex: 49 / F ADM Date: 09/09/24 Loc: PA Room: Type: [facility] Attending Dr: Annmarie Palmer DO Copies to: DO Erik Nino Jr, DO Ordering Provider: Annmarie Palmer DO Date of Service: 09/09/24 NM/PA gastric emptying study: R11.2 - Nausea with vomiting, unspecified GASTRIC EMPTYING STUDY: CLINICAL HISTORY: Nausea vomiting for the past 3 years TECHNIQUE: Following the oral ingestion of 1 mCi Tc 99m labeled sulfur colloid mixed with egg, planar imaging of the abdomen was obtained. FINDINGS: At 30 minutes, 96% of the radiotracer remained within the stomach. At 1 hour, 92% of the radiotracer remained within the stomach. At 2 hours, 73% of the radiotracer remained within the stomach. At 3 hours, 39% of the radiotracer remained within the stomach. At 4 hours, 34% of the radiotracer remained within the stomach. NM/PA gastric emptying study IMPRESSION: SCINTIGRAPHIC EVIDENCE OF GASTROPARESIS. PER TECHNOLOGIST NOTES, THE PATIENT TAKES TRULICITY. Impression dictated by: Erik Gipson Jr., D.O.09/09/2024 11:54 AM Dictation Location: [place] [address] Transcribed By: [facility] 09/09/24 1154 Dictated By: Erik Gipson Jr, DO 09/09/24 1149 Signed By: 09/09/24 1154 Normal [facility] Additional Injections: L ext ensor compartment 1on 08-31-2024 Kwame Mcneil MD 09/06 3:23 PM Additional Injections: L extensor compartment 1 for de Quervain's tenosynovitis Informed Consent Consent Obtained: Verbal [place] Protocol A moment to CARE was completed. SIGN IN Sign in communication not applicable due to emergent procedure. Personnel directly involved with the procedure wore the appropriate PPE. Special Equipment: N/A Patient/Surrogate Stated/Verified: Patient name, Date of , Relevant allergies and Intended procedure TIME OUT Relevant labs, photos, and/or imaging studies have been reviewed. Intended patient and procedure match the source document(s). Consent documented and matches the intended procedure. Correct side/site marked and visible. Medications required for procedure verified. No fire risk assessment and interventions applicable. No implant(s) inserted.08/31/2024 3:22 PM The procedure site was prepped in the usual sterile fashion. Medications: 6 mg betamethasone acetate-betamethasone sodium phosphate 6 mg/mL Anesthetics: 1 mL lidocaine (PF) 10 mg/mL (1 %) Outcome: tolerated well, no immediate complications Post-injection instructions were reviewed with the patient and the patient voiced understanding of these instructions. SIGN OUT No specimen collected. All instruments, equipment, possible retained foreign bodies accounted for. Post-procedure follow-up management communicated and Plan of Care Visit completed when applicable [facility] CNCOon 08-31-2024 CNCO Letter Text Normal [facility] CNOVon 08-31-2024 CNOV Office Visit (LOORRM ) ----- LISA MENDEZ ([id number]) 1975 F Date Time Provider Department 08/31/24 1:30 PM KWAME MCNEIL During your visit today, we recorded the following information about you: Kwame Mcneil MD 09/06/2024 3:23 PM Signed The patient is sent for evaluation and an opinion regarding treatment by , who will receive a copy of this report by mail or through the shared medical record. CHIEF COMPLAINT: Lisaher Linda Mendez is a 49 year old female who presents today for new evaluation of left wrist pain. HPI: PAIN EVALUATION 08/30/2024 1213 08/31/2024 1331 Pain Level: -- 7 Pain Location: Heel-Left Hand-Left Description: Numbness;Other: See comment Aching;Numbness;Sharp;Sor e;Tingling Duration Units: -- Years Frequency: Continuous Continuous Intervention/Comfort measure: -- Medication;Reposition;Rel axation Occupation: Works at [employer] Hand Dominance: right Background: She states she has had 3 surgeries aimed at the base of the left thumb. Despite this she continues to have pain here. The first was in 2020 and the last was June 2023. Additionally she has numbness and tingling in the superficial radial nerve distribution. She has had 2 carpal tunnel surgeries but this is not very bothersome to her. Cortisone to the base of the thumb has not helped. She does have diabetes. Previous treatment or work-up includes: As above. ROS: REVIEW OF SYSTEMS: Constitutional: Fever/chills: No Cardiovascular: Chest Pain: No Respiratory: SOB: No Musculoskeletal: as noted in the HPI Neurologic: as noted in the HPI Endocrine: Diabetes: Yes Tobacco user? No SOCIAL HISTORY: Tobacco Use: Never FAMILY HISTORY: No family history on file. PAST MEDICAL HISTORY Diagnosis Date H/O abdominal hysterectomy 01/2020 PAST SURGICAL HISTORY Procedure Laterality Date TOTAL ABDOM HYSTERECTOMY No family history on file. Social History Tobacco Use Smoking status: Never Smokeless tobacco: Never Vaping Use Vaping status: Never Used Substance Use Topics Alcohol use: Yes Drug use: Never ALLERGIES Allergen Reactions Aloe Vera Other: See Comments Baclofen Other: See Comments, Swelling Cephalexin GI Upset, Vomiting Ciprofloxacin Other: See Comments Cyclobenzaprine Hives, Unknown Gabapentin Hives, Unknown, Other: See Comments Menthol Other: See Comments Metformin Hives Morphine GI Upset Nsaids (Non-Steroid* Hives, Rash, Other: See Comments Azithromycin Itching, Rash Current Outpatient Medications Medication Sig Dispense Refill nabumetone (RELAFEN) 500 mg tablet 500 mg. pregabalin (LYRICA) 100 mg capsule Take 100 mg by mouth two times a day. polyethylene glycol 3350 (MIRALAX) 17 gram/dose powder Take 17 g by mouth once daily as needed. 166 g 2 lumateperone (CAPLYTA) 10.5 mg capsule Take 10.5 [...] No current facility-administered medications for this visit. Physical Exam: Vitals: There were no vitals taken for this visit. Body Habitus: Well nourished and no acute distress Orientation: Normal, oriented to person, place and time Psych: Normal Skin: Color, texture, turgor normal. No rashes or lesions Sensation: Sensation to light touch is grossly normal bilaterally The left thumb is examined. Decree sensation in the superficial radial nerve distribution. Intact EPL and FPL. No pain or crepitus at the thumb A1 polly. Slight tenderness at the first CMC. Exquisitely tender at the first dorsal compartment with a positive Bunny. IMAGING: Final results and radiologist's interpretation, available in the [facility] health record. Images were reviewed with the patient/family members in the office today. My personal interpretation of the performed imaging is status post CMC arthroplasty with tight rope with subsidence of thumb metacarpal. 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 Other Tests: None Assessment: (Z98.890) H/O thumb surgery (primary encounter diagnosis) (M65.4) De Quervain's tenosynovitis, left Plan: (more content not included)... Normal [facility] XR HAND 3V PA/LAT/OBL LTon 0 08-31-2024 XR HAND 3V PA/LAT/OBL LT * * *Final Report* * * DATE OF EXAM: Aug 31 2024 1:26PM LZX 5345 - XR HAND 3V PA/LAT/OBL LT / PROCEDURE REASON: Pain of left hand * * * * Physician Interpretation * * * * EXAMINATION / TECHNIQUE: XR HAND 3V PA/LAT/OBL LT PATIENT/TECHNOLOGIST PROVIDED HISTORY: chronic left hand pain. history of prior left hand surgeries CLINICAL INFORMATION ( PROVIDED BY ORDERING CLINICIAN) : Pain of left hand COMPARISON: None RESULT: Status post trapeziectomy and suspensionplasty of the thumb CMC joint with Endobuttons at the bases of the thumb metacarpal and second metacarpal. Proximal migration of the thumb metacarpal at the CMC joint, which appears to articulate with the scaphoid. No acute fracture or dislocation. Heterotopic ossification noted along the palmar aspect of the thumb CMC joint. Moderate radiocarpal osteoarthritis. The joint spaces are otherwise maintained. IMPRESSION: Postoperative changes at the first CMC joint, as detailed. 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: PSCB Transcribe Date/Time: Aug 31 2024 3:02P Dictated by : KYA STOREY MD This examination was interpreted and the report reviewed and electronically signed by: WILL PAULSON MD on Aug 31 2024 3:16PM EST [id number] Normal [facility] XR Hand - left PA and Latera l and Obliqueon 08-31-2024 IMPRESSION: Postoperative changes at the first CMC joint, as detailed. 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: PSCB Transcribe Date/Time: Aug 31 2024 3:02P Dictated by : KYA STOREY MD This examination was interpreted and the report reviewed and electronically signed by: WILL PAULSON MD on Aug 31 2024 3:16PM EST DIVISION OF RADIOLOGY * * *Final Report* * * DATE OF EXAM: Aug 31 2024 1:26PM LZX 5345 - XR HAND 3V PA/LAT/OBL LT / PROCEDURE REASON: Pain of left hand * * * * Physician Interpretation * * * * EXAMINATION / TECHNIQUE: XR HAND 3V PA/LAT/OBL LT PATIENT/TECHNOLOGIST PROVIDED HISTORY: chronic left hand pain. history of prior left hand surgeries CLINICAL INFORMATION ( PROVIDED BY ORDERING CLINICIAN) : Pain of left hand COMPARISON: None RESULT: Status post trapeziectomy and suspensionplasty of the thumb CMC joint with Endobuttons at the bases of the thumb metacarpal and second metacarpal. Proximal migration of the thumb metacarpal at the CMC joint, which appears to articulate with the scaphoid. No acute fracture or dislocation. Heterotopic ossification noted along the palmar aspect of the thumb CMC joint. Moderate radiocarpal osteoarthritis. The joint spaces are otherwise maintained. DIVISION OF RADIOLOGY Provider, [facility] - 08/31/2024 * * *Final Report* * * DATE OF EXAM: Aug 31 2024 1:26PM LZX 5345 - XR HAND 3V PA/LAT/OBL LT / PROCEDURE REASON: Pain of left hand * * * * Physician Interpretation * * * * EXAMINATION / TECHNIQUE: XR HAND 3V PA/LAT/OBL LT PATIENT/TECHNOLOGIST PROVIDED HISTORY: chronic left hand pain. history of prior left hand surgeries CLINICAL INFORMATION ( PROVIDED BY ORDERING CLINICIAN) : Pain of left hand COMPARISON: None RESULT: Status post trapeziectomy and suspensionplasty of the thumb CMC joint with Endobuttons at the bases of the thumb metacarpal and second metacarpal. Proximal migration of the thumb metacarpal at the CMC joint, which appears to articulate with the scaphoid. No acute fracture or dislocation. Heterotopic ossification noted along the palmar aspect of the thumb CMC joint. Moderate radiocarpal osteoarthritis. The joint spaces are otherwise maintained. IMPRESSION IMPRESSION: Postoperative changes at the first CMC joint, as detailed. 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: PSCEstrada Transcribe Date/Time: Aug 31 2024 3:02P Dictated by : KYA STOREY MD This examination was interpreted and the report reviewed and electronically signed by: WILL PAULSON MD on Aug 31 2024 3:16PM EST [facility] Radiology Study observation (narrative) [facility] XR Hand - left PA and Latera l and ObliqueOrdered By: Ccf Provider on 08-31-2024 [facility] COVID Cepheid NegativeOrdere d By: Mary Ellen Magallanes on 08-29-2024 SARS-CoV-2 (COVID-19) Ab IA Ql COVID Cepheid Negative [facility] Comment on above: This is a duplicate Cepheid Xpert Xpress CoV-2/Flu/RSV Plus RNA by RT-PCR result to be used for statistical tracking purpose only. SARS-CoV-2 (COVID-19) RNA DEBBIE+probe Ql (Unsp spec) COVID Cepheid Negative [facility] COVID-19 / Flu A/B / RSV PCR on 08-29-2024 SARS-CoV-2 (COVID-19) RNA DEBBIE+probe Ql (Unsp spec) COVID-19 Cepheid Result Negative for SARS-CoV-2 RNA by RT-PCR Flu A Cepheid Result Negative for Flu A RNA by RT-PCR Flu B Cepheid Result Negative for Flu B RNA by RT-PCR RSV Cepheid Result Negative for RSV RNA by RT-PCR COVID19 Blank Space ---- Reference: Negative COVID19 Blank Space ---- Cepheid Disclaimer The Cepheid Xpert Xpress CoV-2/Flu/RSV [...] or Cepheid Disclaimer revoked sooner. PERFORMED BY: [address] [place] [address] PATHOLOGIST ELEVATOR DISPATCHER MICHELLE TEE M.D. Normal [facility] Comment on above: Performed By: #### C EPHEID NEG, QS, COVID19 FLU RSV ####[place] [address] [place] [address] [facility] Cepheid COVID PCR Negativeon 08-29-2024 SARS-CoV-2 (COVID-19) RNA DEBBIE+probe Ql (Unsp spec) Negative Normal Negative [facility] Comment on above: Result Comment: This is a duplicate CepappCREAR Xpert Xpress CoV-2/Flu/RSV Plus RNA by RT-PCR result to be used for statistical tracking purpose only. PERFORMED BY: [address] [address] PATHOLOGIST ELEVATOR DISPATCHER MICHELLE TEE M.D. Performed By: #### C EPHEID NEG, QS, COVID19 FLU RSV ####[place] [address] [place] [address] [facility] Quick Strepon 08-29-2024 Quick Strep Streptococcus pyogen es Ag [Presence] in Throat by Rapid immunoassay Negative for Group A Strep Antigen Note 1 NOTE 2 Results are those of a screening test. NOTE 3 If clinically indicated please order a culture. NOTE 4 NOTE 5 Reference range = Negative PERFORMED BY: [address] [place] [address] PATHOLOGIST ELEVATOR DISPATCHER MICHELLE TEE M.D. Normal [facility] Comment on above: Performed By: #### C EPHEID NEG, QS, COVID19 FLU RSV ####[facility] Noc[address] [place] [id number] [facility] Respiratory specimen influen za A virus, influenza B virus, respiratory syncytical virOrdered By: Mary Ellen Magallanes on 08-29-2024 SARS-CoV-2 (COVID-19) RNA DEBBIE+probe Ql (Unsp spec) Respiratory specimen influenza A virus, influenza B virus, respiratory syncytical vir [facility] SARS-CoV-2 (COVID-19) RNA DEBBIE+probe Ql (Unsp spec) Respiratory specimen influenza A virus, influenza B virus, respiratory syncytical vir [facility] Streptococcus pyogenes antig en detectionOrdered By: Mary Ellen Magallanes on 08-29-2024 S. pyogenes Ag Ql (Unsp spec) Streptococcus pyogenes antigen detection [facility] S. pyogenes Ag Ql (Unsp spec) Streptococcus pyogenes antigen detection [facility] Alanine aminotransferase [En zymatic activity/volume] in Serum or PlasmaOrdered By: No [place] on 08-22-2024 ALT [Catalytic activity/Vol] Alanine aminotransferase [Enzymatic activity/volume] in Serum or Plasma 7-52 [facility] Albumin [Mass/volume] in Ser um or Plasma by Bromocresol green (BCG) dye binding methoOrdered By: No [place] on 08-22-2024 Albumin BCG dye [Mass/Vol] Albumin [Mass/volume] in Serum or Plasma by Bromocresol green (BCG) dye binding metho 3.5-5.7 [facility] Alkaline phosphatase [Enzyma tic activity/volume] in Serum or PlasmaOrdered By: No [place] on 08-22-2024 ALP [Catalytic activity/Vol] Alkaline phosphatase [Enzymatic activity/volume] in Serum or Plasma 34-104 [facility] Aspartate aminotransferase [ Enzymatic activity/volume] in Serum or PlasmaOrdered By: No [place] on 08-22-2024 AST [Catalytic activity/Vol] Aspartate aminotransferase [Enzymatic activity/volume] in Serum or Plasma 13-39 [facility] Basophils Auto (Bld) [#/Vol] Ordered By: No [place] on 08-22-2024 Basophils (Bld) [#/Vol] Automated basophil count 0.0-0.2 [facility] Basophils/100 WBC Auto (Bld) Ordered By: No [place] on 08-22-2024 Basophils/100 WBC (Bld) Automated basophil % . [facility] Bilirubin.total [Mass/volume ] in Serum or PlasmaOrdered By: No [place] on 08-22-2024 Bilirubin [Mass/Vol] Bilirubin.total [Mass/volume] in Serum or Plasma 0.3-1.0 [facility] Calcium [Mass/volume] in Ser um or PlasmaOrdered By: No [place] on 08-22-2024 Calcium [Mass/Vol] Calcium [Mass/volume ] in Serum or Plasma 8.6-10.3 [facility] Carbon dioxide, total [Moles /volume] in Serum or PlasmaOrdered By: No [place] on 08-22-2024 CO2 [Moles/Vol] Carbon dioxide, tota l [Moles/volume] in Serum or Plasma 21.0-31.0 [facility] Chloride [Moles/volume] in S claudia or PlasmaOrdered By: No [place] on 08-22-2024 Chloride [Moles/Vol] Chloride [Moles/vol ume] in Serum or Plasma 98-107 [facility] Complete Blood Count Auto Di ffon 08-22-2024 Basophils (Bld) [#/Vol] 0.1 10*3/uL Normal 0.0-0.2 [facility] Comment on above: Result Comment: PERF ORMED BY: [facility] [address] [place] [id number] PATHOLOGIST ELEVATOR DISPATCHER MICHELLE TEE M.D. Performed By: #### C MP, CBC, DDIMER ####[facility] [id number] Basophils/100 WBC (Bld) 0.5 % Normal . [facility] Comment on above: Performed By: #### C MP, CBC, DDIMER ####[facility] [id number] [address] Eosinophils (Bld) [#/Vol] 0.2 10*3/uL Normal 0.0-0.45 [facility] Comment on above: Performed By: #### C MP, CBC, DDIMER ####[address] Eosinophils/100 WBC (Bld) 1.9 % Normal . [facility] Comment on above: Performed By: #### C MP, CBC, DDIMER ####[address] Erythrocyte distribution width (RBC) [Ratio] 12.8 % Normal 11.9-15.3 [facility] Comment on above: Performed By: #### C MP, CBC, DDIMER ####[address] Hematocrit (Bld) [Volume fraction] 36.2 % Normal 34.0-46.4 [facility] Comment on above: Performed By: #### C MP, CBC, DDIMER ####[address] Hemoglobin (Bld) [Mass/Vol] 12.7 g/dL Normal 11.8-15.4 [facility] Comment on above: Performed By: #### C MP, CBC, DDIMER ####[address] Lymphocytes (Bld) [#/Vol] 2.9 10*3/uL Normal 1.00-4.8 [facility] Comment on above: Performed By: #### C MP, CBC, DDIMER ####[address] Lymphocytes/100 WBC (Bld) 24.9 % Normal . [facility] Comment on above: Performed By: #### C MP, CBC, DDIMER ####[address] MCH (RBC) [Entitic mass] 28.8 pg Normal 24.7-34.3 [facility] Comment on above: Performed By: #### C MP, CBC, DDIMER ####[address] MCV (RBC) [Entitic vol] 82.2 fL Normal 80-100 [facility] Comment on above: Performed By: #### C MP, CBC, DDIMER ####[address] Mean Corpuscular HGB Conc 35.0 g/dL Normal 32.0-35.0 [facility] Comment on above: Performed By: #### C MP, CBC, DDIMER ####[address] Monocytes (Bld) [#/Vol] 0.9 10*3/uL High 0.0-0.8 [facility] Comment on above: Performed By: #### C MP, CBC, DDIMER ####[address] Monocytes/100 WBC (Bld) 19.93 % Normal 0.00-20.00 [facility] Comment on above: Performed By: #### C MP, CBC, DDIMER ####[address] Monocytes/100 WBC (Bld) 7.5 % Normal . [facility] Comment on above: Performed By: #### C MP, CBC, DDIMER ####[address] Neutrophils (Bld) [#/Vol] 7.5 10*3/uL Normal 1.8-7.7 [facility] Comment on above: Performed By: #### C MP, CBC, DDIMER ####[address] Neutrophils/100 WBC (Bld) 65.2 % Normal . [facility] Comment on above: Performed By: #### C MP, CBC, DDIMER ####[address] NRBC% 0.0 /100{WBC} Normal 0-0.5 [facility] Comment on above: Performed By: #### C MP, CBC, DDIMER ####[place] [id number] [facility] Platelet mean volume (Bld) [Entitic vol] 7.1 fL Normal 6.3-10.7 [facility] Comment on above: Performed By: #### C MP, CBC, DDIMER ####[place] [id number] [facility] Platelets (Bld) [#/Vol] 272 10*3/uL Normal 150-450 [facility] Comment on above: Performed By: #### C MP, CBC, DDIMER ####[place] [id number] [facility] RBC (Bld) [#/Vol] 4.41 10*6/uL Normal 3.60-5.00 [facility] Comment on above: Performed By: #### C MP, CBC, DDIMER ####[address] WBC (Bld) [#/Vol] 11.5 10*3/uL Normal 3.8-11.6 [facility] Comment on above: Performed By: #### C MP, CBC, DDIMER ####[address] Comprehensive Metabolic Pane myron 08-22-2024 Albumin [Mass/Vol] 4.3 g/dL Normal 3.5-5.7 [facility] Comment on above: Performed By: #### C MP, CBC, DDIMER ####[place] [id number] [facility] Albumin/Globulin [Mass ratio] 1.3 {ratio} Normal [facility] Comment on above: Performed By: #### C MP, CBC, DDIMER ####[place] [id number] [facility] ALP [Catalytic activity/Vol] 94 U/L Normal 34-104 [facility] Comment on above: Performed By: #### C MP, CBC, DDIMER ####[place] [id number] [facility] ALT [Catalytic activity/Vol] 18 U/L Normal 7-52 [facility] Comment on above: Performed By: #### C MP, CBC, DDIMER ####[place] [id number] [facility] Anion gap [Moles/Vol] 11.3 mmol/L Normal 6.0-15.0 [facility] Comment on above: Performed By: #### C MP, CBC, DDIMER ####[place] [id number] [facility] AST [Catalytic activity/Vol] 20 U/L Normal 13-39 [facility] Comment on above: Performed By: #### C MP, CBC, DDIMER ####[place] [id number] [facility] Bilirubin [Mass/Vol] 0.4 mg/dL Normal 0.3-1.0 [facility] Comment on above: Performed By: #### C MP, CBC, DDIMER ####[place] [id number] [facility] Calcium [Mass/Vol] 9.0 mg/dL Normal 8.6-10.3 [facility] Comment on above: Performed By: #### C MP, CBC, DDIMER ####[place] [id number] [facility] Chloride [Moles/Vol] 103 mmol/L Normal 98-107 [facility] Comment on above: Performed By: #### C MP, CBC, DDIMER ####[place] [id number] [facility] CO2 [Moles/Vol] 25.6 mmol/L Normal 21.0-31.0 The [facility] Comment on above: Performed By: #### C MP, CBC, DDIMER ####[place] [id number] [facility] Creatinine [Mass/Vol] 0.57 mg/dL Low 0.60-1.20 [facility] Comment on above: Performed By: #### C MP, CBC, DDIMER ####[facility] Creatinine Clr Calc Pharmacy 139.78 Normal [facility] Comment on above: Result Comment: PERF ORMED BY: [facility] [address] [place] [id number] PATHOLOGIST ELEVATOR DISPATCHER MICHELLE TEE M.D. Performed By: #### C MP, CBC, DDIMER ####[place] [address] GFR/1.73 sq M.predicted MDRD (S/P/Bld) [Vol rate/Area] mL/min/{1.73_m2} Normal [facility] Comment on above: Performed By: #### C MP, CBC, DDIMER ####[place] [address] Globulin (S) [Mass/Vol] 3.2 g/dL Normal [facility] Comment on above: Performed By: #### C MP, CBC, DDIMER ####[address] Glucose [Mass/Vol] 106 mg/dL High 70-100 [facility] Comment on above: Result Comment: Isabel Glucose Reference Range is dependent on time and content of last meal. Glucose of more than 200 mg/dL in a nonstressed, ambulatory subject supports the diagnosis of Diabetes Mellitus. ADA recommended reference range Performed By: #### C MP, CBC, DDIMER ####[address] Potassium [Moles/Vol] 3.9 mmol/L Normal 3.5-5.1 [facility] Comment on above: Performed By: #### C MP, CBC, DDIMER ####[address] Protein [Mass/Vol] 7.5 g/dL Normal 6.4-8.9 [facility] Comment on above: Performed By: #### C MP, CBC, DDIMER ####[address] [address] [facility] Sodium [Moles/Vol] 136 mmol/L Normal 136-145 [facility] Comment on above: Performed By: #### C MP, CBC, DDIMER ####[place] [address] [place] [id number] [facility] Urea nitrogen [Mass/Vol] 18 mg/dL Normal 7-25 [facility] Comment on above: Performed By: #### C MP, CBC, DDIMER ####[place] [address] [place] [id number] [facility] Creatinine [Mass/volume] in Serum or PlasmaOrdered By: No Covington on 08-22-2024 Creatinine [Mass/Vol] Creatinine [Mass/v olume] in Serum or Plasma Low 0.60-1.20 [facility] D-Dimer High Sensitivityon 0 08-22-2024 D-Dimer High Sensitivity <200 Normal 0-243 [facility] Comment on above: Result Comment: The reference range for D-dimer is <243 ng/mL D-dimer units. D-dimer results must be used in conjunction with a clinical pretest probability (PTP) assessment model for deep vein thrombosis (DVT) and pulmonary embolism (PE). Results <230 ng/mL d-dimer units can be used as a negative predictor in patients with low or moderate probability for DVT/PE. Results above the exclusion threshold of 230 ng/ml D-dimer units for DVT/PE may indicate the need for further diagnostic testing. D-Dimer can be increased in hospitalized patients due to co-morbid conditions. A hematocrit value greater than 55% may lead to inaccurate results in coagulation testing. Patients having hematocrit values >55% require a special collection tube for coagulation studies. Please contact the laboratory at [phone] for redraw instructions. PERFORMED BY: [place] [address] PATHOLOGIST ELEVATOR DISPATCHER MICHELLE TEE M.D. Performed By: #### C MP, CBC, DDIMER ####[place] [address] [place] [id number] [facility] ECG 12 lead ECGon 08-22-2024 ECG 12 lead ECG [facility] [place] [address] Electrocardiograph Report Signed Patient: Lisa Mendez MR#: [id number] : 1975 Acct:[id number] Age/Sex: 49 / F ADM Date: 08/22/24 Loc: ER Room: Type: [facility] ER Attending Dr: Ordering Provider: No Covington DO Date of Service: 08/22/24 ECG/ECG 12 lead ECG: Extremity Injury, Lower Copies to: Test Reason : Blood Pressure : 139/64 mmHG Vent. Rate : 73 BPM Atrial Rate : 73 BPM P-R Int : 170 ms QRS Dur : 84 ms QT Int : 414 ms P-R-T Axes : 56 85 65 degrees QTcB Int : 456 ms Normal sinus rhythm Normal ECG When compared with ECG of 06-Aug-2024 22:57, fusion complexes are no longer present T wave inversion no longer evident in Lateral leads Confirmed by NO COVINGTON DO ([id number]) on 08/23/2024 1:19:21 AM Referred By: Electronically Signed By: NO COVINGTON DO Transcribed By: MUS Signed By No Covington DO 0119 Normal [facility] Eosinophils Auto (Bld) [#/Vo l]Ordered By: No Covington on 08-22-2024 Eosinophils (Bld) [#/Vol] Automated eosinophil count 0.0-0.45 [facility] Eosinophils/100 WBC Auto (Bl d)Ordered By: No Covington on 08-22-2024 Eosinophils/100 WBC (Bld) Automated eosinophil % . [facility] Erythrocyte distribution wid th Auto (RBC) [Ratio]Ordered By: No Covington on 08-22-2024 Erythrocyte distribution width (RBC) [Ratio] Erythrocyte distribution width [Ratio] by Automated count 11.9-15.3 [facility] Fibrin D-dimer [Presence] in Platelet poor plasma by Latex agglutinationOrdered By: No Covington on 08-22-2024 Fibrin D-dimer LA Ql (PPP) Fibrin D-dimer [Presence] in Platelet poor plasma by Latex agglutination 0-243 [facility] Comment on above: The reference range for D-dimer is <243 ng/mL D-dimer units.D-dimer results must be used in conjunction with a clinicalpretest probability (PTP) assessment model for deep veinthrombosis (DVT) and pulmonary embolism (PE). Results <230ng/mL d-dimer units can be used as a negative predictor inpatients with low or moderate probability for DVT/PE.Results above the exclusion threshold of 230 ng/ml D-dimerunits for DVT/PE may indicate the need for furtherdiagnostic testing.D-Dimer can be increased in hospitalized patients due toco-morbid conditions.A hematocrit value greater than 55% may lead to inaccurate results in coagulation testing. Patients having hematocrit values >55% require a special collection tube for coagulation studies. Please contact the laboratory at [phone] for redraw instructions. Globulin Calc (S) [Mass/Vol] Ordered By: No Covington on 08-22-2024 Globulin (S) [Mass/Vol] Serum globulin measurement by calculation (mass/volume) [facility] Glucose [Mass/volume] in Ser um or PlasmaOrdered By: No Covington on 08-22-2024 Glucose [Mass/Vol] Glucose [Mass/volume ] in Serum or Plasma High 70-100 [facility] Comment on above: ADA recommended refe rence rangeRandom Glucose Reference Range is dependent on time and content of last meal. Glucose of more than 200 mg/dL in a nonstressed, ambulatory subject supports the diagnosis of Diabetes Mellitus. Hematocrit Auto (Bld) [Volum e fraction]Ordered By: No Covington on 08-22-2024 Hematocrit (Bld) [Volume fraction] Hematocrit [Volume Fraction] of Blood by Automated count 34.0-46.4 [facility] Hemoglobin [Mass/volume] in BloodOrdered By: No Covington 08-22-2024 Hemoglobin (Bld) [Mass/Vol] Hemoglobin [Mass/volume] in Blood 11.8-15.4 [facility] Leukocytes [#/volume] correc cristian for nucleated erythrocytes in Blood by Automated counOrdered By: No Covington on 08-22-2024 WBC corrected for nucl RBC Auto (Bld) [#/Vol] Leukocytes [#/volume] corrected for nucleated erythrocytes in Blood by Automated coun 3.8-11.6 [facility] Lymphocytes Auto (Bld) [#/Vo l]Ordered By: No Covington on 08-22-2024 Lymphocytes (Bld) [#/Vol] Lymphocytes [#/volume] in Blood by Automated count 1.00-4.8 [facility] Lymphocytes/100 WBC Auto (Bl d)Ordered By: No Covington on 08-22-2024 Lymphocytes/100 WBC (Bld) Lymphocytes/100 leukocytes in Blood by Automated count . [facility] MCH Auto (RBC) [Entitic mass ]Ordered By: No Covington on 08-22-2024 MCH (RBC) [Entitic mass] MCH [Entitic mass] by Automated count 24.7-34.3 [facility] MCHC Auto (RBC) [Mass/Vol]Or dered By: No Covington on 08-22-2024 MCHC (RBC) [Mass/Vol] MCHC [Mass/volume] by Automated count 32.0-35.0 [facility] MCV Auto (RBC) [Entitic vol] Ordered By: No Covington on 08-22-2024 MCV (RBC) [Entitic vol] MCV [Entitic volume] by Automated count 80-100 [facility] Monocyte distribution width [Entitic volume] in Blood by AutomatedOrdered By: No Covington on 08-22-2024 Monocyte distribution width Auto (Bld) [Entitic vol] Monocyte distribution width [Entitic volume] in Blood by Automated 0.00-20.00 [facility] Monocytes Auto (Bld) [#/Vol] Ordered By: No Covington on 08-22-2024 Monocytes (Bld) [#/Vol] Automated blood monocyte count High 0.0-0.8 [facility] Monocytes/100 WBC Auto (Bld) Ordered By: No Covington on 08-22-2024 Monocytes/100 WBC (Bld) Automated monocyte % . [facility] Neutrophils Auto (Bld) [#/Vo l]Ordered By: No Covington on 08-22-2024 Neutrophils (Bld) [#/Vol] Neutrophils [#/volume] in Blood by Automated count 1.8-7.7 [facility] Neutrophils/100 WBC Auto (Bl d)Ordered By: No Covington on 01-18-2025 Neutrophils/100 WBC (Bld) Automated neutrophil % . [facility] No Panel InformationOrdered By: No Covington on 08-22-2024 Estimated GFR (CKD-EPI) > 60.0 mL/Min [facility] Creatinine Clearance (Chem 139.78 [facility] > 60.0 mL/Min [facility] 139.78 [facility] Nucleated erythrocytes [Pres ence] in Blood by Automated countOrdered By: No Covington on 08-22-2024 Nucleated RBC Auto Ql (Bld) Nucleated erythrocytes [Presence] in Blood by Automated count 0-0.5 [facility] Platelet mean volume Auto (B ld) [Entitic vol]Ordered By: No Covington on 08-22-2024 Platelet mean volume (Bld) [Entitic vol] Platelet mean volume [Entitic volume] in Blood by Automated count 6.3-10.7 [facility] Platelets Auto (Bld) [#/Vol] Ordered By: No Covington on 08-22-2024 Platelets (Bld) [#/Vol] Platelets [#/volume] in Blood by Automated count 150-450 [facility] Potassium [Moles/volume] in Serum or PlasmaOrdered By: No Covington 08-22-2024 Potassium [Moles/Vol] Potassium [Moles/v olume] in Serum or Plasma 3.5-5.1 [facility] Protein [Mass/volume] in Ser um or PlasmaOrdered By: No Covington 08-22-2024 Protein [Mass/Vol] Protein [Mass/volume ] in Serum or Plasma 6.4-8.9 [facility] RBC Auto (Bld) [#/Vol]Ordere d By: No Covington on 08-22-2024 RBC (Bld) [#/Vol] Erythrocytes [#/volu me] in Blood by Automated count 3.60-5.00 [facility] Serum or plasma albumin/glob ulin mass ratioOrdered By: No Covington on 08-22-2024 Albumin/Globulin [Mass ratio] Serum or plasma albumin/globulin mass ratio [facility] Serum or plasma anion gap de terminationOrdered By: No Covington on 08-22-2024 Anion gap [Moles/Vol] Serum or plasma an ion gap determination 6.0-15.0 [facility] Sodium [Moles/volume] in Ser um or PlasmaOrdered By: No Covington on 08-22-2024 Sodium [Moles/Vol] Sodium [Moles/volume ] in Serum or Plasma 136-145 [facility] Urea nitrogen [Mass/volume] in Serum or PlasmaOrdered By: No Covington on 08-22-2024 Urea nitrogen [Mass/Vol] Urea nitrogen [Mass/volume] in Serum or Plasma 7-25 [facility] WBC Auto (Bld) [#/Vol]Ordere d By: No Covington on 08-22-2024 WBC (Bld) [#/Vol] Leukocytes [#/volume ] in Blood by Automated count 3.8-11.6 [facility] CNPNon 08-13-2024 CNPN Telephone (LOORRM) ----- LISA MENDEZ ([id number]) 1975 F Date Time Provider Department 08/13/24 KWAME MCNEIL During your visit today, we recorded the following information about you: Juanita Baird 08/13/2024 10:13 AM Signed Called patient and left VM to cancel appointment with Jairo Dela Cruz and rescheduled appointment for 08/31 @ 1:[address] Tarun Hammonds. Also sent GnamGnam message Allergies As of Date: 08/13/2024 Noted Allergy Reaction ALOE VERA 04/02/2012 14 [...] - Itching 2 - Rash Date Reviewed: 03/31/2024 Reviewed by: Marium Antonio LPN - Fully Assessed Reason for Visit: Appointment [186] Prescriptions as of 08/13/2024 - nabumetone (RELAFEN) 500 mg tablet 500 mg. - pregabalin (LYRICA) 100 mg capsule Take 100 mg by mouth two times a day. - polyethylene glycol 3350 (MIRALAX) 17 gram/dose [...] at bedtime. 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] 12/23/2023 Encounter Status:Closed by JUANITA BAIRD on 08/13/24 Normal [facility] Appearance of UrineOrdered B y: Kenny Carreno on 08-07-2024 Appearance (U) Urine appearance Clear [facility] Bilirubin Test strip Ql (U)O rdered By: Kenny Carreno on 08-07-2024 Bilirubin Ql (U) Bilirubin.total [Presence] in Urine by Test strip Negative [facility] CT abdomen pelvis w conon CT abdomen pelvis w con [facility] [address] CT Scan Report Signed Patient: Lisa Mendez MR#: [id number] : 1975 Acct:[id number] Age/Sex: 49 / F ADM Date: 08/06/24 Loc: ER Room: Type: [facility] ER Attending Dr: Copies to: Kenny Carreno Jr, MD Ordering Provider: Kenny Carreno Jr, MD Date of Service: 08/06/24 CT/CT abdomen pelvis w con: central abd pain 2-3 mos, occas N/V CT abdomen pelvis w con 08/06/2024 11:25 PM SIGNS AND SYMPTOMS: Upper abdominal pain with nausea and vomiting, history of renal stones TECHNIQUE: Multidetector ct axial images of the abdomen and pelvis were obtained with IV contrast. Multiplanar reformats were performed and reviewed to further define anatomy and possible pathology. CT was performed with one or more of the following dose reduction techniques: Automated exposure control, adjustment of the mA and/or kV according to patient size, or use of iterative reconstruction technique. COMPARISON: 05/09/2024 FINDINGS: Lower Chest: Within normal limits. ABDOMEN: Liver: Within normal limits. Bile Ducts: Normal caliber. Gallbladder: Previously removed Pancreas: Within normal limits. Spleen: Within normal limits. Adrenals: Within normal limits. Kidneys: Renal stones are present on the left measuring up to 5 mm in greatest dimension. There is no hydronephrosis. Pelvis: Reproductive Organs: No pelvic masses. Ureters: Within normal limits. Bladder: Within normal limits. Bowel: Normal caliber. There is a normal appendix in the right lower quadrant. Mesenteric Lymph Nodes: No enlarged mesenteric lymph nodes. Peritoneum: No ascites or free air, no fluid collection. Vessels: within normal limits Retroperitoneum: Within normal limits. Abdominal Wall: Within normal limits. Bones: Degenerative changes are noted in the thoracic spine and lumbar spine. Degenerative changes are noted in the hips and sacroiliac joints. CT/CT abdomen pelvis w con IMPRESSION: No bowel obstruction or obstructive uropathy. There are nonobstructing stones in the left renal collecting system measuring up to 5 mm in greatest dimension. There is a normal appendix in the right lower quadrant. Impression dictated by: Mode Handy M.D.08/07/2024 12:15 AM Dictation Location: [place] [address] Transcribed By: [facility] 08/07/24 001 Dictated By: Mode Handy II, MD 08/07/24 0008 Signed By: 08/07/24 001 Normal [facility] Color Auto (U)Ordered By: Emilie Carreno on 08-07-2024 Color (U) Color of Urine by Auto Yellow [facility] Glucose [Mass/volume] in Uri ne by Test stripOrdered By: Kenny Carreno on 08-07-2024 Glucose Test strip (U) [Mass/Vol] Glucose [Mass/volume] in Urine by Test strip Normal [facility] Hemoglobin Test strip Ql (U) Ordered By: Kenny Carreno on 08-07-2024 Hemoglobin Ql (U) Hemoglobin [Presence ] in Urine by Test strip Negative [facility] Ketones Test strip Ql (U)Ord ered By: Kenny Carreno on 08-07-2024 Ketones Ql (U) Ketones [Presence] i n Urine by Test strip Negative [facility] Leukocyte esterase [Presence ] in Urine by Test stripOrdered By: Kenny Carreno on 08-07-2024 Leukocyte esterase Test strip Ql (U) Leukocyte esterase [Presence] in Urine by Test strip Negative [facility] Nitrite Test strip Ql (U)Ord ered By: Kenny Carreno on 08-07-2024 Nitrite Ql (U) Nitrite [Presence] i n Urine by Test strip Negative [facility] Protein Test strip (U) [Mass /Vol]Ordered By: Kenny Carreno on 08-07-2024 Protein (U) [Mass/Vol] Protein [Mass/vol ume] in Urine by Test strip Negative [facility] Specific gravity Test strip (U) [Rel density]Ordered By: Kenny Carreno on 08-07-2024 Specific gravity (U) [Rel density] Specific gravity of Urine by Test strip High 1.001-1.03 0 [facility] Urinalysison 08-07-2024 Appearance (U) Clear Normal Clear [facility] Comment on above: Order Comment: Name Collection Type:: Clean-Voided Midstream Performed By: #### U A ####[address] Bilirubin,Urine Negative Normal Negative [facility] Comment on above: Order Comment: Name Collection Type:: Clean-Voided Midstream Performed By: #### U A ####[address] Color (U) Light-Yellow Normal Yellow [facility] Comment on above: Order Comment: Name Collection Type:: Clean-Voided Midstream Performed By: #### U A ####[place] [id number] [facility] Glucose Ql (U) Normal Normal Normal [facility] Comment on above: Order Comment: Name Collection Type:: Clean-Voided Midstream Performed By: #### U A ####[place] [id number] [facility] Ketones Ql (U) Negative Normal Negative [facility] Comment on above: Order Comment: Name Collection Type:: Clean-Voided Midstream Performed By: #### U A ####[place] [id number] [facility] Leukocyte esterase Test strip Ql (U) Negative Normal Negative [facility] Comment on above: Order Comment: Name Collection Type:: Clean-Voided Midstream Performed By: #### U A ####[address] [address] [facility] Nitrite,Urine Negative Normal Negative [facility] Comment on above: Order Comment: Name Collection Type:: Clean-Voided Midstream Performed By: #### U A ####[address] [address] [facility] Occult Blood,Urine Negative Normal Negative [facility] Comment on above: Order Comment: Name Collection Type:: Clean-Voided Midstream Result Comment: PERF ORMED BY: [facility] [address] [place] [address] PATHOLOGIST ELEVATOR DISPATCHER MICHELLE TEE M.D. Performed By: #### U A ####[place] [id number] [facility] pH (U) 6.5 [pH] Normal 5.0-9.0 [facility] Comment on above: Order Comment: Name Collection Type:: Clean-Voided Midstream Performed By: #### U A ####[address] [address] [facility] Protein,Urine Negative Normal Negative [facility] Comment on above: Order Comment: Name Collection Type:: Clean-Voided Midstream Performed By: #### U A ####[place] [id number] [facility] Specificy Shiner,Urine 1.044 High 1.001-1.03 0 [facility] Comment on above: Order Comment: Name Collection Type:: Clean-Voided Midstream Performed By: #### U A ####[place] [id number] [facility] Urobilinogen,Urine Normal Normal Normal [facility] Comment on above: Order Comment: Name Collection Type:: Clean-Voided Midstream Performed By: #### U A ####[address] [place] [address] [facility] Urobilinogen Test strip (U) [Mass/Vol]Ordered By: Kenny Carreno on 08-07-2024 Urobilinogen (U) [Mass/Vol] Urobilinogen [Mass/volume] in Urine by Test strip Normal [facility] pH Test strip (U)Ordered By: Kenny Carreno on 08-07-2024 pH (U) pH of Urine by Test strip 5.0-9.0 [facility] Alanine aminotransferase [En zymatic activity/volume] in Serum or PlasmaOrdered By: Kenny Carreno on 08-06-2024 ALT [Catalytic activity/Vol] Alanine aminotransferase [Enzymatic activity/volume] in Serum or Plasma 7-52 [facility] Albumin [Mass/volume] in Ser um or Plasma by Bromocresol green (BCG) dye binding methoOrdered By: Kenny Carreno on 08-06-2024 Albumin BCG dye [Mass/Vol] Albumin [Mass/volume] in Serum or Plasma by Bromocresol green (BCG) dye binding metho 3.5-5.7 [facility] Alkaline phosphatase [Enzyma tic activity/volume] in Serum or PlasmaOrdered By: Kenny Carreno on 08-06-2024 ALP [Catalytic activity/Vol] Alkaline phosphatase [Enzymatic activity/volume] in Serum or Plasma 34-104 [facility] Aspartate aminotransferase [ Enzymatic activity/volume] in Serum or PlasmaOrdered By: Kenny Carreno on 08-06-2024 AST [Catalytic activity/Vol] Aspartate aminotransferase [Enzymatic activity/volume] in Serum or Plasma 13-39 [facility] Basophils Auto (Bld) [#/Vol] Ordered By: Kenny Carreno on 08-06-2024 Basophils (Bld) [#/Vol] Automated basophil count 0.0-0.2 [facility] Basophils/100 WBC Auto (Bld) Ordered By: Kenny Carreno on 08-06-2024 Basophils/100 WBC (Bld) Automated basophil % . [facility] Bilirubin.total [Mass/volume ] in Serum or PlasmaOrdered By: Kenny Carreno on 08-06-2024 Bilirubin [Mass/Vol] Bilirubin.total [Mass/volume] in Serum or Plasma Low 0.3-1.0 [facility] Calcium [Mass/volume] in Ser um or PlasmaOrdered By: Kenny Carreno on 08-06-2024 Calcium [Mass/Vol] Calcium [Mass/volume ] in Serum or Plasma 8.6-10.3 [facility] Carbon dioxide, total [Moles /volume] in Serum or PlasmaOrdered By: Kenny Carreno on 08-06-2024 CO2 [Moles/Vol] Carbon dioxide, tota l [Moles/volume] in Serum or Plasma 21.0-31.0 [facility] Chloride [Moles/volume] in S claudia or PlasmaOrdered By: Kenny Carreno on 08-06-2024 Chloride [Moles/Vol] Chloride [Moles/vol ume] in Serum or Plasma 98-107 [facility] Comprehensive Metabolic Pane myron 08-06-2024 Albumin [Mass/Vol] 3.8 g/dL Normal 3.5-5.7 [facility] Comment on above: Performed By: #### S CAN CBC, CMP, LIPASE ####[place] [address] Albumin/Globulin [Mass ratio] 1.3 {ratio} Normal [facility] Comment on above: Performed By: #### S CAN CBC, CMP, LIPASE ####[place] [address] ALP [Catalytic activity/Vol] 73 U/L Normal 34-104 [facility] Comment on above: Performed By: #### S CAN CBC, CMP, LIPASE ####[place] [address] [place] [id number] [facility] ALT [Catalytic activity/Vol] 15 U/L Normal 7-52 [facility] Comment on above: Performed By: #### S CAN CBC, CMP, LIPASE ####[place] [address] [place] [id number] [facility] Anion gap [Moles/Vol] 8.3 mmol/L Normal 6.0-15.0 [facility] Comment on above: Performed By: #### S CAN CBC, CMP, LIPASE ####[place] [address] [place] [id number] [facility] AST [Catalytic activity/Vol] 17 U/L Normal 13-39 [facility] Comment on above: Performed By: #### S CAN CBC, CMP, LIPASE ####[address] Bilirubin [Mass/Vol] 0.2 mg/dL Low 0.3-1.0 [facility] Comment on above: Performed By: #### S CAN CBC, CMP, LIPASE ####[address] Calcium [Mass/Vol] 8.8 mg/dL Normal 8.6-10.3 [facility] Comment on above: Performed By: #### S CAN CBC, CMP, LIPASE ####[address] Chloride [Moles/Vol] 106 mmol/L Normal 98-107 [facility] Comment on above: Performed By: #### S CAN CBC, CMP, LIPASE ####[address] CO2 [Moles/Vol] 25.8 mmol/L Normal 21.0-31.0 The [facility] Comment on above: Performed By: #### S CAN CBC, CMP, LIPASE ####[address] Creatinine [Mass/Vol] 0.50 mg/dL Low 0.60-1.20 [facility] Comment on above: Performed By: #### S CAN CBC, CMP, LIPASE ####[address] Creatinine Clr Calc Pharmacy 159.14 Normal [facility] Comment on above: Performed By: #### S CAN CBC, CMP, LIPASE ####[address] GFR/1.73 sq M.predicted MDRD (S/P/Bld) [Vol rate/Area] mL/min/{1.73_m2} Normal [facility] Comment on above: Performed By: #### S CAN CBC, CMP, LIPASE ####[address] Globulin (S) [Mass/Vol] 2.9 g/dL Normal [facility] Comment on above: Performed By: #### S CAN CBC, CMP, LIPASE ####[place] [address] [address] Glucose [Mass/Vol] 128 mg/dL High 70-100 [facility] Comment on above: Result Comment: [facility] Glucose Reference Range is dependent on time and content of last meal. Glucose of more than 200 mg/dL in a nonstressed, ambulatory subject supports the diagnosis of Diabetes Mellitus. ADA recommended reference range Performed By: #### S CAN CBC, CMP, LIPASE ####[place] [address] [address] Potassium [Moles/Vol] 4.1 mmol/L Normal 3.5-5.1 [facility] Comment on above: Result Comment: Hemo lysis is present at a level that could interfere with the result. Contact lab if redraw is required Performed By: #### S CAN CBC, CMP, LIPASE ####[address] Protein [Mass/Vol] 6.7 g/dL Normal 6.4-8.9 [facility] Comment on above: Performed By: #### S CAN CBC, CMP, LIPASE ####[address] Sodium [Moles/Vol] 136 mmol/L Normal 136-145 [facility] Comment on above: Performed By: #### S CAN CBC, CMP, LIPASE ####[address] Urea nitrogen [Mass/Vol] 13 mg/dL Normal 7-25 [facility] Comment on above: Performed By: #### S CAN CBC, CMP, LIPASE ####[address] Creatinine [Mass/volume] in Serum or PlasmaOrdered By: Kenny Carreno on 08-06-2024 Creatinine [Mass/Vol] Creatinine [Mass/v olume] in Serum or Plasma Low 0.60-1.20 [facility] ECG 12 lead ECGon 08-06-2024 ECG 12 lead ECG [facility] [address] Electrocardiograph Report Signed Patient: Lisa Mendez MR#: [id number] : 1975 Acct:[id number] Age/Sex: 49 / F ADM Date: 08/06/24 Loc: ER Room: Type: [facility] ER Attending Dr: Ordering Provider: Kenny Carreno Jr, MD Date of Service: 08/06/2409/29/2153 ECG/ECG 12 lead ECG: Abdominal Pain Copies to: Test Reason : Blood Pressure : */* mmHG Vent. Rate : 73 BPM Atrial Rate : 73 BPM P-R Int : 168 ms QRS Dur : 88 ms QT Int : 402 ms P-R-T Axes : * 112 147 degrees QTcB Int : 442 ms Sinus rhythm with fusion complexes Possible Lateral infarct (cited on or before 13-Jun-2022) Abnormal ECG When compared with ECG of 23-Feb-2023 20:30, fusion complexes are now present Confirmed by KENNY CARRENO MD ([id number]) on 08/08/2024 5:11:51 AM Referred By: Electronically Signed By: KENNY CARRENO MD Transcribed By: MUS Signed By Kenny Carreno Jr, MD 0511 Normal [facility] Eosinophils Auto (Bld) [#/Vo l]Ordered By: Kenny Carreno on 08-06-2024 Eosinophils (Bld) [#/Vol] Automated eosinophil count 0.0-0.45 [facility] Eosinophils/100 WBC Auto (Bl d)Ordered By: Kenny Carreno on 08-06-2024 Eosinophils/100 WBC (Bld) Automated eosinophil % . [facility] Erythrocyte distribution wid th Auto (RBC) [Ratio]Ordered By: Kenny Carreno on 08-06-2024 Erythrocyte distribution width (RBC) [Ratio] Erythrocyte distribution width [Ratio] by Automated count 11.9-15.3 [facility] Erythrocyte morphology findi ng [Identifier] in BloodOrdered By: Kenny Carreno on 08-06-2024 RBC morphology finding Nom (Bld) RBC morphology Normal [facility] Globulin Calc (S) [Mass/Vol] Ordered By: Kenny Carreno on 08-06-2024 Globulin (S) [Mass/Vol] Serum globulin measurement by calculation (mass/volume) [facility] Glucose [Mass/volume] in Ser um or PlasmaOrdered By: Kenny Carreno on 08-06-2024 Glucose [Mass/Vol] Glucose [Mass/volume ] in Serum or Plasma High 70-100 [facility] Comment on above: ADA recommended refe rence rangeRandom Glucose Reference Range is dependent on time and content of last meal. Glucose of more than 200 mg/dL in a nonstressed, ambulatory subject supports the diagnosis of Diabetes Mellitus. Hematocrit Auto (Bld) [Volum e fraction]Ordered By: Kenny Carreno on 08-06-2024 Hematocrit (Bld) [Volume fraction] Hematocrit [Volume Fraction] of Blood by Automated count 34.0-46.4 [facility] Hemoglobin [Mass/volume] in BloodOrdered By: Kenny Carreno on 08-06-2024 Hemoglobin (Bld) [Mass/Vol] Hemoglobin [Mass/volume] in Blood 11.8-15.4 [facility] Leukocytes [#/volume] correc cristian for nucleated erythrocytes in Blood by Automated counOrdered By: Kenny Carreno on 08-06-2024 WBC corrected for nucl RBC Auto (Bld) [#/Vol] Leukocytes [#/volume] corrected for nucleated erythrocytes in Blood by Automated coun 3.8-11.6 [facility] Lipaseon 08-06-2024 Lipase [Catalytic activity/Vol] 36.0 U/L Normal 11.0-82.0 [facility] Comment on above: Result Comment: PERF ORMED BY: [facility] [address] [place] [address] PATHOLOGIST ELEVATOR DISPATCHER MICHELLE TEE M.D. Performed By: #### S CAN CBC, CMP, LIPASE ####[facility] [address] [place] [id number] [facility] Lipase [Enzymatic activity/v olume] in Serum or PlasmaOrdered By: Kenny Carreno on 08-06-2024 Lipase [Catalytic activity/Vol] Lipase [Enzymatic activity/volume] in Serum or Plasma 11.0-82.0 [facility] Lymphocytes Auto (Bld) [#/Vo l]Ordered By: Kenny Carreno on 08-06-2024 Lymphocytes (Bld) [#/Vol] Lymphocytes [#/volume] in Blood by Automated count 1.00-4.8 [facility] Lymphocytes/100 WBC Auto (Bl d)Ordered By: Kenny Carreno on 08-06-2024 Lymphocytes/100 WBC (Bld) Lymphocytes/100 leukocytes in Blood by Automated count . [facility] MCH Auto (RBC) [Entitic mass ]Ordered By: Kenny Carreno on 08-06-2024 MCH (RBC) [Entitic mass] MCH [Entitic mass] by Automated count 24.7-34.3 [facility] MCHC Auto (RBC) [Mass/Vol]Or dered By: Kenny Carreno on 08-06-2024 MCHC (RBC) [Mass/Vol] MCHC [Mass/volume] by Automated count 32.0-35.0 [facility] MCV Auto (RBC) [Entitic vol] Ordered By: Kenny Carreno on 08-06-2024 MCV (RBC) [Entitic vol] MCV [Entitic volume] by Automated count 80-100 [facility] Monocyte distribution width [Entitic volume] in Blood by AutomatedOrdered By: Kenny Carreno on 08-06-2024 Monocyte distribution width Auto (Bld) [Entitic vol] Monocyte distribution width [Entitic volume] in Blood by Automated 0.00-20.00 [facility] Monocytes Auto (Bld) [#/Vol] Ordered By: Kenny Carreno on 08-06-2024 Monocytes (Bld) [#/Vol] Automated blood monocyte count 0.0-0.8 [facility] Monocytes/100 WBC Auto (Bld) Ordered By: Kenny Carreno on 08-06-2024 Monocytes/100 WBC (Bld) Automated monocyte % . [facility] Neutrophils Auto (Bld) [#/Vo l]Ordered By: Kenny Carreno on 08-06-2024 Neutrophils (Bld) [#/Vol] Neutrophils [#/volume] in Blood by Automated count 1.8-7.7 [facility] Neutrophils/100 WBC Auto (Bl d)Ordered By: Kenny Carreno on 08-06-2024 Neutrophils/100 WBC (Bld) Automated neutrophil % . [facility] No Panel InformationOrdered By: Kenny Carreno on 08-06-2024 Estimated GFR (CKD-EPI) > 60.0 mL/Min [facility] Creatinine Clearance (Chem 159.14 [facility] > 60.0 mL/Min [facility] 159.14 [facility] Nucleated erythrocytes [Pres ence] in Blood by Automated countOrdered By: Kenny Carreno on 08-06-2024 Nucleated RBC Auto Ql (Bld) Nucleated erythrocytes [Presence] in Blood by Automated count 0-0.5 [facility] Platelet adequacy [Presence] in Blood by Light microscopyOrdered By: Kenny Carreno on 08-06-2024 Platelets LM Ql (Bld) Platelet adequacy [Presence] in Blood by Light microscopy Normal [facility] Platelet mean volume Auto (B ld) [Entitic vol]Ordered By: Kenny Carreno on 08-06-2024 Platelet mean volume (Bld) [Entitic vol] Platelet mean volume [Entitic volume] in Blood by Automated count 6.3-10.7 [facility] Platelet morphology finding [Identifier] in BloodOrdered By: Kenny Carreno on 08-06-2024 Platelet morphology finding Nom (Bld) Platelet morphology finding [Identifier] in Blood Normal [facility] Platelets Auto (Bld) [#/Vol] Ordered By: Kenny Carreno on 08-06-2024 Platelets (Bld) [#/Vol] Platelets [#/volume] in Blood by Automated count 150-450 [facility] Potassium [Moles/volume] in Serum or PlasmaOrdered By: Kenny Carreno on 08-06-2024 Potassium [Moles/Vol] Potassium [Moles/v olume] in Serum or Plasma 3.5-5.1 [facility] Comment on above: Hemolysis is present at a level that could interfere with the result.Contact lab if redraw is required Protein [Mass/volume] in Ser um or PlasmaOrdered By: Kenny Carreno on 08-06-2024 Protein [Mass/Vol] Protein [Mass/volume ] in Serum or Plasma 6.4-8.9 [facility] RBC Auto (Bld) [#/Vol]Ordere d By: Kenny Carreno on 08-06-2024 RBC (Bld) [#/Vol] Erythrocytes [#/volu me] in Blood by Automated count 3.60-5.00 [facility] Scan and CBCon 08-06-2024 Basophils (Bld) [#/Vol] 0.1 10*3/uL Normal 0.0-0.2 [facility] Comment on above: Performed By: #### S CAN CBC, CMP, LIPASE ####[address] Basophils/100 WBC (Bld) 0.6 % Normal . [facility] Comment on above: Performed By: #### S CAN CBC, CMP, LIPASE ####[address] Eosinophils (Bld) [#/Vol] 0.3 10*3/uL Normal 0.0-0.45 [facility] Comment on above: Performed By: #### S CAN CBC, CMP, LIPASE ####[address] Eosinophils/100 WBC (Bld) 3.0 % Normal . [facility] Comment on above: Performed By: #### S CAN CBC, CMP, LIPASE ####[address] Erythrocyte distribution width (RBC) [Ratio] 13.0 % Normal 11.9-15.3 [facility] Comment on above: Performed By: #### S CAN CBC, CMP, LIPASE ####[address] Hematocrit (Bld) [Volume fraction] 35.4 % Normal 34.0-46.4 [facility] Comment on above: Performed By: #### S CAN CBC, CMP, LIPASE ####[address] Hemoglobin (Bld) [Mass/Vol] 12.2 g/dL Normal 11.8-15.4 [facility] Comment on above: Performed By: #### S CAN CBC, CMP, LIPASE ####[address] Lymphocytes (Bld) [#/Vol] 3.0 10*3/uL Normal 1.00-4.8 [facility] Comment on above: Performed By: #### S CAN CBC, CMP, LIPASE ####[address] Lymphocytes/100 WBC (Bld) 33.0 % Normal . [facility] Comment on above: Performed By: #### S CAN CBC, CMP, LIPASE ####[address] MCH (RBC) [Entitic mass] 29.0 pg Normal 24.7-34.3 [facility] Comment on above: Performed By: #### S CAN CBC, CMP, LIPASE ####[address] MCV (RBC) [Entitic vol] 84.1 fL Normal 80-100 [facility] Comment on above: Performed By: #### S CAN CBC, CMP, LIPASE ####[address] Mean Corpuscular HGB Conc 34.5 g/dL Normal 32.0-35.0 [facility] Comment on above: Performed By: #### S CAN CBC, CMP, LIPASE ####[address] Monocytes (Bld) [#/Vol] 0.7 10*3/uL Normal 0.0-0.8 [facility] Comment on above: Performed By: #### S CAN CBC, CMP, LIPASE ####[address] Monocytes/100 WBC (Bld) 18.75 % Normal 0.00-20.00 [facility] Comment on above: Performed By: #### S CAN CBC, CMP, LIPASE ####[address] Monocytes/100 WBC (Bld) 7.2 % Normal . [facility] Comment on above: Performed By: #### S CAN CBC, CMP, LIPASE ####[address] Neutrophils (Bld) [#/Vol] 5.1 10*3/uL Normal 1.8-7.7 [facility] Comment on above: Performed By: #### S CAN CBC, CMP, LIPASE ####[place] [id number] [facility] Neutrophils/100 WBC (Bld) 56.2 % Normal . [facility] Comment on above: Performed By: #### S CAN CBC, CMP, LIPASE ####[place] [id number] [facility] NRBC% 0.2 /100{WBC} Normal 0-0.5 [facility] Comment on above: Performed By: #### S CAN CBC, CMP, LIPASE ####[place] [address] [address] Platelet Estimate Normal Normal Normal [facility] Comment on above: Performed By: #### S CAN CBC, CMP, LIPASE ####[place] [id number] [facility] Platelet mean volume (Bld) [Entitic vol] 7.3 fL Normal 6.3-10.7 [facility] Comment on above: Performed By: #### S CAN CBC, CMP, LIPASE ####[place] [id number] [facility] Platelet Morphology Normal Normal Normal [facility] Comment on above: Result Comment: PERF ORMED BY: [facility] [address] [place] [address] PATHOLOGIST ELEVATOR DISPATCHER MICHELLE TEE M.D. Performed By: #### S CAN CBC, CMP, LIPASE ####[place] [id number] [facility] Platelets (Bld) [#/Vol] 225 10*3/uL Normal 150-450 [facility] Comment on above: Performed By: #### S CAN CBC, CMP, LIPASE ####[place] [id number] [facility] RBC (Bld) [#/Vol] 4.20 10*6/uL Normal 3.60-5.00 [facility] Comment on above: Performed By: #### S CAN CBC, CMP, LIPASE ####[place] [address] [address] RBC morphology finding Nom (Bld) Normal Normal Normal [facility] Comment on above: Performed By: #### S CAN CBC, CMP, LIPASE ####[place] [address] [address] WBC (Bld) [#/Vol] 9.1 10*3/uL Normal 3.8-11.6 [facility] Comment on above: Performed By: #### S CAN CBC, CMP, LIPASE ####[address] Serum or plasma albumin/glob ulin mass ratioOrdered By: Kenny Carreno on 08-06-2024 Albumin/Globulin [Mass ratio] Serum or plasma albumin/globulin mass ratio [facility] Serum or plasma anion gap de terminationOrdered By: Kenny Carreno on 08-06-2024 Anion gap [Moles/Vol] Serum or plasma an ion gap determination 6.0-15.0 [facility] Sodium [Moles/volume] in Ser um or PlasmaOrdered By: Kenny Carreno on 08-06-2024 Sodium [Moles/Vol] Sodium [Moles/volume ] in Serum or Plasma 136-145 [facility] Urea nitrogen [Mass/volume] in Serum or PlasmaOrdered By: Kenny Carreno on 08-06-2024 Urea nitrogen [Mass/Vol] Urea nitrogen [Mass/volume] in Serum or Plasma 7-25 [facility] Urinalysison 08-06-2024 Appearance (U) Clear Normal Clear [facility] Comment on above: Order Comment: Name Collection Type:: Clean-Voided Midstream Performed By: #### U A ####[address] Bilirubin,Urine Negative Normal Negative [facility] Comment on above: Order Comment: Name Collection Type:: Clean-Voided Midstream Performed By: #### U A ####[address] Color (U) Light-Yellow Normal Yellow [facility] Comment on above: Order Comment: Name Collection Type:: Clean-Voided Midstream Performed By: #### U A ####[address] [address] [facility] Glucose Ql (U) Normal Normal Normal [facility] Comment on above: Order Comment: Name Collection Type:: Clean-Voided Midstream Performed By: #### U A ####[address] [address] [facility] Ketones Ql (U) Negative Normal Negative [facility] Comment on above: Order Comment: Name Collection Type:: Clean-Voided Midstream Performed By: #### U A ####[address] [address] [facility] Leukocyte esterase Test strip Ql (U) Negative Normal Negative [facility] Comment on above: Order Comment: Name Collection Type:: Clean-Voided Midstream Performed By: #### U A ####[address] [address] [facility] Nitrite,Urine Negative Normal Negative [facility] Comment on above: Order Comment: Name Collection Type:: Clean-Voided Midstream Performed By: #### U A ####[address] [address] [facility] Occult Blood,Urine Negative Normal Negative [facility] Comment on above: Order Comment: Name Collection Type:: Clean-Voided Midstream Result Comment: PERF ORMED BY: [facility] [address] [place] [address] PATHOLOGIST ELEVATOR DISPATCHER MICHELLE TEE M.D. Performed By: #### U A ####[address] [address] [facility] pH (U) 6.5 [pH] Normal 5.0-9.0 [facility] Comment on above: Order Comment: Name Collection Type:: Clean-Voided Midstream Performed By: #### U A ####[address] [address] [place] Protein,Urine Negative Normal Negative [facility] Comment on above: Order Comment: Name Collection Type:: Clean-Voided Midstream Performed By: #### U A ####[place] [address] [address] Specificy Shiner,Urine 1.015 Normal 1.001-1.03 0 [facility] Comment on above: Order Comment: Name Collection Type:: Clean-Voided Midstream Performed By: #### U A ####[address] Urobilinogen,Urine Normal Normal Normal [facility] Comment on above: Order Comment: Name Collection Type:: Clean-Voided Midstream Performed By: #### U A ####[address] WBC Auto (Bld) [#/Vol]Ordere d By: Kenny Carreno on 08-06-2024 WBC (Bld) [#/Vol] Leukocytes [#/volume ] in Blood by Automated count 3.8-11.6 [facility] XR Foot - right 3 [facility] Result: Old appearing oblique fracture of the right 3rd proximal phalanx head and neck region with negative diastasis [facility] Study observation (narrative) [facility] MM diagnostic mammo BI w/CAD on 06-01-2024 MM diagnostic mammo BI w/CAD [facility] Main [place] [address] [place] [address] Mammography Report Signed Patient: Lisa Mendez MR#: [id number] 287 : 1975 Acct:[id number] Age/Sex: 48 / F ADM Date: 06/01/24 Loc: [place] Room: Type: [facility] Attending Dr: Alex Aguirre DO Copies to: Brigida Corea APRN, CYTOGENETICS LABORATORY MANAGER-C Alex Aguirre DO Ordering Provider: Alex Aguirre DO Date of Service: 06/01/24 MM/MM diagnostic mammo BI w/CAD: Z98.890 CLINICAL DATA: BilateralDIAGNOSTIC MAMMOGRAM - WITH TOMOSYNTHESIS AND CAD COMPARISON:Mammograms dating back to 2019. Tomosynthesis imaging was obtained using low-dose digital technique. This examination was reviewed with the aid of CAD. FINDINGS: The breasts are composed of scattered fibroglandular densities. No new areas of architectural distortion, worrisome masses or suspicious microcalcifications. MM/MM diagnostic mammo BI w/CAD IMPRESSION: NO MAMMOGRAPHIC EVIDENCE OF MALIGNANCY. ROUTINE FOLLOW-UP IS RECOMMENDED IN ONE YEAR. RESULT CODE: 1 Negative DENSITY CODE: 2 (approximately 25-50% glandular) FOLLOW UP: 1YR The false-negative rate of mammography is approximately 10-percent. Management of a palpable abnormality must be based on clinical grounds. Patient was entered into a reminder system with a target due date for the next mammogram. Impression dictated by: Erik Gipson Jr., D.O.06/01/2024 3:16 PM Dictation Location: [facility] Transcribed By: HARLAN 06/01/24 1516 Dictated By: Erik Gipson Jr, DO 06/01/24 1508 Signed By: 06/01/24 1516 Normal [facility] ED Note-Physicianon 05-13-20 ED Note-Physician ED Note-Physician Basic Information Time Seen: Antonio BARTLETT, Shira Quesada 05/10/2024 18:44 Chief Complaint patient presents with 3rd and 4th toe pain after hitting it on table History of Present Illness Patient is a 48-year-old female with a history of bipolar disorder and smoking who presents to the ED with right third and fourth toe pain that began yesterday. Patient states she was sitting at a table when she lifted her leg up to settle on the chair next to her, hitting it on the bottom of the table. Patient notes since then she has noticed bruising to her toes. She denies taking any medication for it. Patient denies any other complaints. Review of Systems A 10 point review of systems is negative except as noted above. Medical and Surgical History: Reviewed and noted Social history: Lives at home Family History: Reviewed. Tobacco: Use Physical Exam Vitals & Measurements T: 36.4 ?C(Oral) HR: 90(Peripheral) RR: 20 BP: 139/97 SpO2: 100% HT: 160 cm WT: 102.5 kg BMI: 40.04 General: The patient appears well and in no apparent distress. Patient is resting comfortably on cart. Skin: Warm, dry, no pallor noted. Head: Normocephalic, atraumatic Cardiovascular: Regular rate normal peripheral perfusion Respiratory: No respiratory distress no accessory muscle use no obvious audible wheezing Musculoskeletal: normal ROM, ecchymosis to the dorsal aspect of the distal right third toe with tenderness to palpation, no other focal bony tenderness to palpation of the right foot, no focal bony tenderness to the right tibia/fibula or knee, flexion and extension of the toes intact, neurovascularly intact Neurological: A&O moves all extremities equal strength and symmetry Psychiatric: Cooperative and appropriate Medical Decision Making Patient is a 48-year-old female with a history of bipolar disorder and smoking who presents to the ED with right third and fourth toe pain that began yesterday. Patient is afebrile and neurovascularly intact. She denied the need for pain medication while in the ED. Foot x-ray shows no acute osseous abnormalities. Patient was updated on the results. She was educated on symptomatic care. She was able to ambulate in the ED without complications. Patient will follow-up with her family physician in the next 2 to 3 days. She was advised to return to ED with any new or worsening symptoms. Patient is agreeable with the plan and all questions were answered. Assessment/Plan Pain in toe of right foot (M79.674: Pain in right toe(s)) Orders: XR Foot 3+ Views Right Disposition Plan Patient Discharge Condition stable Discharge Disposition home Discharge Prescription List Prescriptions No active prescription medications Follow-up With When Contact Information BRIGIDA COREA In 3 days 05/13/[address] [place] [address]- [phone] Business (1) Additional Instructions: Call to schedule a follow-up appointment with your family physician in the next 2 to 3 days. Use Tylenol, ibuprofen, and ice for pain management. Return to ED with any new or worsening symptoms. Patient Education Acute Pain, Adult Attestation Patient seen and evaluated by the physician funeral assistant. Attending physician was present in the emergency department and supervised care. This visit was performed by both the physician and an APC. I performed all aspects of the MDM as documented. This report was transcribed using voice recognition software. Every effort was made to ensure accuracy, however, inadvertently computerized environmental tech mistakes may be present. Appropriate healthcare PPE was used in evaluating this patient. The patient was placed in a mask. The healthcare provider was wearing mask, gloves, and utilizing proper hand hygiene. All equipment was properly cleansed. I performed a substantive part of the MDM during the patient?s E/M visit. I personally made or approved the documented management plan and acknowledge its risk of complications. (Independent Interpretation) My (EKG/X-Ray/US/CT as applicable) interpretation as above. (Discussion) Management/test interpretation discussed with APC. Problem List/Past Medical History Ongoing Asthma Asymptomatic [...] Excision of ganglion cyst, Laparoscopic cholecystectomy. Medications Inpatient No active inpatient medications Home carbamazepine 200 mg ER Tab, Oral, BID CeleBREX 200 mg Cap, 200 mg= 1 cap(s), Oral, Daily duloxetine 60 mg Cap-DR, 60 mg, Oral, Daily f (more content not included)... Normal [facility] Comment on above: Result Comment: Elec tronically Signed By: Shira Alvarez PA-C\.br\Date and Time Signed: 05/10/24 20:01 EDT\.br\Electronically Co-Signed By: Francisco Marin DO\.br\Date and Time Co-Signed: 05/13/24 07:06 EDT XR Foot 3+ Views Righton XR Foot 3+ Views Right Exam Date/Time: 05/10/2024 19:36 EDT Reason for Exam: Pain, Traumatic Report IMPRESSION: NO ACUTE FRACTURE OR SIGNIFICANT POSTTRAUMATIC COMPLICATION IDENTIFIED. EXAM: XR Foot 3+ Views Right DATE: 05/10/2024 7:08 PM CLINICAL HISTORY: Pain, Traumatic. COMPARISON: None available. TECHNIQUE: AP, lateral, and oblique radiographs of the right foot were obtained. FINDINGS: There is no fracture, dislocation, worrisome bone destruction, radiodense foreign bodies, or other acute posttraumatic complication identified. Moderately extensive osteoarthritic changes are present of the tarsal metatarsal joints. A moderate-sized plantar calcaneal spur is present. Ordering Provider: Shira Alvarez FINAL REPORT Dictated: 05/11/2024 5:51 am Eliseo Hylton MD Signed (Electronic Signature): 05/11/2024 5:51 am Signed by: Eliseo Hylton MD Transcribed by: HARSHAD Technologist: MUNA Technical Comments Radiation Dose: Ka,r in mGy = na DAP = na Normal [facility] ED Clinical Summaryon 2023 ED Clinical Summary ED Clinical Summary [place] [id number] ED Clinical Summary Person Information Name: LISA MENDEZ [facility] Age: 48 Years : 1975 Sex: Female Language: [place] Citizen PCP: BRIGIDA COREA CNP Marital Status: Visit Id: Visit Reason: Toe pain-swelling; TOE PAIN Speciality: Acuity: 4 Enc Type: Emergency Med Service: Emergency Arrival: 05/10/2024 18:36:16 Discharge: 05/10/2024 20:03:23 LOS: 000 01:27 Checkin: 05/10/2024 18:36:16 Checkout: 05/10/2024 20:03:23 Dispo Type: Home (Routine DC) EVENTS: Event Name Event Status Request Date/Time Start Date/Time Complete Date/Time Arrive Complete 05/10/2024 18:36:16 05/10/2024 18:36:16 05/10/2024 18:36:16 Document Home Meds Request 05/10/2024 18:36:16 Triage Complete 05/10/2024 18:36:16 05/10/2024 18:49:59 05/10/2024 18:49:59 Registration Complete 05/10/2024 18:39:59 05/10/2024 18:39:59 05/10/2024 18:39:59 Reg Complete Request 05/10/2024 18:39:59 Reg Bed Request Complete 05/10/2024 18:39:59 05/10/2024 18:39:59 05/10/2024 18:39:59 Bed Assign Complete 05/10/2024 18:43:54 05/10/2024 18:43:54 05/10/2024 18:43:54 Dr Exam Complete 05/10/2024 18:43:54 05/10/2024 18:44:50 05/10/2024 18:44:50 RN Exam Complete 05/10/2024 18:43:54 05/10/2024 18:50:58 05/10/2024 18:50:58 Registration Request 05/10/2024 18:44:50 Dr Exam Complete 05/10/2024 18:49:12 05/10/2024 18:49:12 05/10/2024 18:49:12 X-Ray Complete 05/10/2024 19:05:21 05/10/2024 19:08:09 05/10/2024 19:36:07 Wet Read Request 05/10/2024 19:36:07 Discharge Complete 05/10/2024 19:55:24 05/10/2024 20:03:27 05/10/2024 20:03:27 Transfer Complete 05/10/2024 20:03:27 05/10/2024 20:03:27 05/10/2024 20:03:27 ADDRESS: [address] [place] [address] [address] [facility] [id number] PHYS DOC NOTES: MEDICAL INFORMATION: Prescriptions Given: Medications to Continue with No Changes Other Medications carbamazepine (carbamazepine 200 mg ER Tab) By Mouth 2 times a day. carbidopa-levodopa (Sinemet 25 mg-100 mg Tab) 1 Tablets By Mouth at bedtime as needed restless legs. celecoxib (CeleBREX 200 mg Cap) 1 Capsules By Mouth every day. cyanocobalamin (Vitamin B12 1000 mcg Tab) By Mouth every day. dulaglutide (Trulicity Pen 0.75 mg/0.5 mL subcutaneous solution) Subcutaneous every week. duloxetine (duloxetine 60 mg Cap-DR) 60 Milligram By Mouth every day. furosemide (furosemide 40 mg Tab) 1 Tablets By Mouth every day. glipiZIDE (glipiZIDE 5 mg ER Tab) By Mouth every day. ibuprofen 800 Milligram By Mouth. ipratropium (ipratropium 0.02% Inh Valeria 2.5 mL) Nebulized inhalation (aerosol) 4 times a day. metformin (metformin 500 mg Tab) 1 Tablets By Mouth 2 times a day. Refills: 5. methocarbamol (methocarbamol 750 mg Tab) By Mouth 3 times a day. potassium chloride 20 Milliequivalent By Mouth every day. rimegepant (Nurtec ODT) 75 Milligram By Mouth Once. ziprasidone (Geodon 20 mg Cap) 1 Capsules By Mouth every day. with food. @ 7 pm. Refills: 5. PATIENT EDUCATION INFORMATION: Instructions: Acute Pain, Adult Follow up: With: Address: When: BRIGIDA COREA [address] [place] [address] [address] [place] [address] [phone] FaceTags (1) In 3 days 05/13/2024 Comments: Call to schedule a follow-up appointment with your family physician in the next 2 to 3 days. Use Tylenol, ibuprofen, and ice for pain management. Return to ED with any new or worsening symptoms. DIAGNOSIS: Pain in toe of right foot Normal [facility] ED Patient Summaryon ED Patient Summary ED Patient Summary [place] [id number] Patient Discharge Instructions Person Information Name: LISA MENDEZ Age: 48 Years Arrival Date: 05/10/2024 18:36:16 Discharge Diagnosis: Pain in toe of right foot Primary Care Physician: BRIGIDA COREA CNP Provider Information Primary Provider: Francisco Marin DO Advanced Nps:Shira Alvarez PA-C The exam and treatment you received in the Emergency Department were for an urgent problem and are not intended as complete care. It is important that you follow up with a doctor, nurse practitioner, or physician?s funeral assistant for ongoing care. If your symptoms become worse or you do not improve as expected and you are unable to reach your usual health care provider, you should return to the Emergency Department. We are available 24 hours a day. LISA MENDEZ has been given the following list of patient education materials, prescriptions and follow-up instructions: Follow-up Instructions: With: Address: When: BRIGIDA COREA [address] [facility] [address] [place] [address] [phone] Business (1) In 3 days 05/13/2024 Comments: Call to schedule a follow-up appointment with your family physician in the next 2 to 3 days. Use Tylenol, ibuprofen, and ice for pain management. Return to ED with any new or worsening symptoms. In the event that this physician does not participate in your insurance network, please consult with your insurance company to find a nearby participating provider. Patient Education Materials: Acute Pain, Adult A MESSAGE TO ALL PATIENTS REGARDING OPIOIDS PRESCRIPTION OPIOIDS: WHAT YOU NEED TO KNOW Prescription opioids can be used to help relieve [id number] pain and are often prescribed following a surgery or injury, or for certain health conditions. These medications can be an important part of the treatment but also come with serious risks. It is important to work with your healthcare provider to make sure you are getting the safest, most effective care. WHAT ARE THE RISKS AND SIDE EFFECTS OF OPIOID USE? Prescription opioids carry serious risks of addiction and overdose, especially with prolonged use. An opioid overdose, often marked by slowed breathing, can cause sudden . The use of prescription opioids can have a number of side effects as well, even when taken as directed: ? Tolerance?meaning you might need to take more of the medication for the same pain relief ? Physical dependence?meaning you have symptoms of withdrawal when a medication is stopped ? Increased sensitivity to pain ? Constipation ? Nausea, vomiting, and dry mouth ? Sleepiness and dizziness ? Confusion ? Depression ? Low levels of testosterone that can result in lower sex drive, energy, and strength ? Itching and sweating RISKS ARE GREATER WITH: ? History of drug misuse, substance use disorder, or overdose ? Mental health conditions (such as depression or anxiety) ? Sleep apnea ? Older age (65 years and older) ? Avoid alcohol while taking prescription opioids. Also, unless specifically advised by your health care provider, medications to avoid include: ? Benzodiazepines (such as Xanax or Valium) ? Muscle relaxants (such as Soma or Flexeril) ? Hypnotics (such as Ambien or Lunesta) ? Other prescription opioids KNOW YOUR OPTIONS Talk to your health care provider about ways to manage your pain that don?t involve prescription opioids. Some of these options may actually work better and have fewer risks and side effects. Options may include: ? Pain relievers such as acetaminophen, ibuprofen, and naproxen ? Some medication that are also used for depression or seizures ? Physical therapy and exercise ? Cognitive behavioral therapy, a psychological, goal-directed approach, in which patients learn how to modify physical, behavioral, and emotional triggers of pain and stress. IF YOU ARE PRESCRIBED OPIOIDS FOR PAIN: ? Never take opioids in greater amounts or more often than prescribed. ? Follow up with your primary health care provider. o Work together to create a plan on how to manage your pain. o Talk about ways to help manage your pain that don?t involve prescription opioids. o Talk about any and all concerns and side effects. ? Help prevent misuse and abuse o Never sell or share prescription opioids. o Never use another person?s prescription opioids. ? Store prescription opioids in a secure place and out of reach of others (this may include visitors, children, friends, and family). ? Safely dispose of unused prescription opioids: Find your community drug take-back program or your pharmacy mail-back program, or flush them down the toilet, following guidance from the Food and Drug Administration (www.fda.gov/Drugs/Resour cesForYou). ? Visit www.cdc.gov/drugoverdose to learn ab (more content not included)... Normal [facility] Alanine aminotransferase [En zymatic activity/volume] in Serum or PlasmaOrdered By: Kenny Carreno on 05-09-2024 ALT [Catalytic activity/Vol] 12 U/L Normal [facility] Comment on above: Performed By: #### H EPATIC, BMP, LIPASE, DIFF CBC ####[facility] [address] [place] [address] [facility] ALT [Catalytic activity/Vol] Alanine aminotransferase [Enzymatic activity/volume] in Serum or Plasma [facility] Albumin [Mass/volume] in Ser um or Plasma by Bromocresol green (BCG) dye binding methoOrdered By: Kenny Carreno on 05-09-2024 Albumin BCG dye [Mass/Vol] 3.9 g/dL 3.5-5.7 [facility] Albumin BCG dye [Mass/Vol] Albumin [Mass/volume] in Serum or Plasma by Bromocresol green (BCG) dye binding metho 3.5-5.7 [facility] Alkaline phosphatase [Enzyma tic activity/volume] in Serum or PlasmaOrdered By: Kenny Carreno on 05-09-2024 ALP [Catalytic activity/Vol] 116 U/L High 34-104 [facility] Comment on above: Performed By: #### H EPATIC, BMP, LIPASE, DIFF CBC ####[place] [address] [address] ALP [Catalytic activity/Vol] Alkaline phosphatase [Enzymatic activity/volume] in Serum or Plasma High 34-104 [facility] Appearance of UrineOrdered B y: PROVIDER TEMP on 05-09-2024 Appearance (U) Urine appearance Abnormal Clear [facility] Aspartate aminotransferase [ Enzymatic activity/volume] in Serum or PlasmaOrdered By: Kenny Carreno on 05-09-2024 AST [Catalytic activity/Vol] 15 U/L Normal [facility] Comment on above: Performed By: #### H EPATIC, BMP, LIPASE, DIFF CBC ####[address] AST [Catalytic activity/Vol] Aspartate aminotransferase [Enzymatic activity/volume] in Serum or Plasma [facility] Bacteria [Presence] in Urine by AutomatedOrdered By: PROVIDER TEMP on 05-09-2024 Bacteria Auto Ql (U) Rare [HPF] None Seen [facility] Bacteria Auto Ql (U) Bacteria [Presence] in Urine by Automated None Seen [facility] Band form neutrophils/100 WB C Manual cnt (Bld)Ordered By: Kenny Carreno on 05-09-2024 Band form neutrophils/100 WBC (Bld) Peripheral white blood cell differential % bands, microscopic exam 0-5 [facility] Basic Metabolic Panelon 100 Creatinine Clr Calc Pharmacy 116.67 Normal [facility] Comment on above: Performed By: #### H EPATIC, BMP, LIPASE, DIFF CBC ####[place] [address] [place] [id number] [facility] GFR/1.73 sq M.predicted MDRD (S/P/Bld) [Vol rate/Area] mL/min/{1.73_m2} Normal [facility] Comment on above: Performed By: #### H EPATIC, BMP, LIPASE, DIFF CBC ####[address] Basophils Auto (Bld) [#/Vol] Ordered By: Kenny Carreno on 05-09-2024 Basophils (Bld) [#/Vol] N/A [facility] Basophils (Bld) [#/Vol] Automated basophil count [facility] Basophils/100 WBC Auto (Bld) Ordered By: Kenny Carreno on 05-09-2024 Basophils/100 WBC (Bld) N/A [facility] Basophils/100 WBC (Bld) Automated basophil % [facility] Bilirubin Test strip Ql (U)O rdered By: JAXON KAHN on 05-09-2024 Bilirubin Ql (U) Negative Negative [facility] Bilirubin Ql (U) Bilirubin.total [Presence] in Urine by Test strip Negative [facility] Bilirubin.direct [Mass/volum e] in Serum or PlasmaOrdered By: Kenny Carreno on 05-09-2024 Bilirubin.direct [Mass/Vol] 0.00 mg/dL Low 0.03-0.18 [facility] Comment on above: If the DBIL is less than 0.1, IBIL is not able to becalculated. Bilirubin.direct [Mass/Vol] Bilirubin.direct [Mass/volume] in Serum or Plasma Low 0.03-0.18 [facility] Comment on above: If the DBIL is less than 0.1, IBIL is not able to becalculated. Bilirubin.total [Mass/volume ] in Serum or PlasmaOrdered By: Kenny Carreno on 05-09-2024 Bilirubin [Mass/Vol] 0.3 mg/dL Normal 0.3-1.0 [facility] Comment on above: Performed By: #### H EPATIC, BMP, LIPASE, DIFF CBC ####[facility] [address] Bilirubin [Mass/Vol] Bilirubin.total [Mass/volume] in Serum or Plasma 0.3-1.[address] [facility] [address] abdomen pelvis w albaon CT abdomen pelvis w [facility] [place] [address] [place] [address] CT Scan Report Signed Patient: Lisa Mendez MR#: [id number] : 1975 Acct:[id number] Age/Sex: 48 / F ADM Date: 05/08/24 Loc: ER Room: Type: [facility] ER Attending Dr: Copies to: Kenny Carreno Jr, MD Ordering Provider: Kenny Carreno Jr, MD Date of Service: 05/09/24 CT/CT abdomen pelvis w con: worsening LLQ pain normal CT the other day CT ABDOMEN AND PELVIS WITH INTRAVENOUS CONTRAST: CLINICAL HISTORY: Worsening abdominal and back pain. COMPARISON: CT abdomen and pelvis 05/05/2024 TECHNIQUE: Spiral images were obtained through the abdomen and pelvis following the administration of intravenous contrast. This CT exam was performed using one or more following dose reduction techniques: Automated exposure control, adjustment of the mA and/or kV according to patient size, or use of iterative reconstruction technique. FINDINGS: Lung Bases: [Bibasilar atelectasis.] Organs:Gallbladder has been removed. Liver spleen pancreas and adrenal glands appear unremarkable. Left nephrolithiasis, largest stone measuring 4 mm. Right kidney appears unremarkable. No obstructive uropathy. Abdominal aorta appears normal in caliber.[ GI: Stomach is grossly unremarkable. Small bowel appears nondilated. No acute colonic abnormality. Appendix is normal.[ Pelvis:[Urinary bladder is grossly unremarkable. Uterus has been removed. No adnexal mass.] Peritoneum/Retroperitoneu m:No free air or free fluid or lymphadenopathy.[ Abd wall/Bones:Abdominal wall demonstrates no acute findings. 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 Osseous structures demonstrate degenerative change.[ CT/CT abdomen pelvis w con IMPRESSION: Left nephrolithiasis. No obstructive uropathy. Impression dictated by: Erik Gipson Jr., D.O.05/09/2024 8:35 AM Dictation Location: [place] [address] Transcribed By: [facility] 05/09/2435 Dictated By: Erik Gipson Jr, DO 05/09/24 0833 Signed By: 05/09/2435 Normal [facility] Calcium [Mass/volume] in Ser um or PlasmaOrdered By: Kenny Carreno on 05-09-2024 Calcium [Mass/Vol] 9.0 mg/dL Normal 8.6-10.3 [facility] Comment on above: Performed By: #### H EPATIC, BMP, LIPASE, DIFF CBC ####[place] [address] [place] [address] [facility] Calcium [Mass/Vol] Calcium [Mass/volume ] in Serum or Plasma 8.6-10.3 [facility] Carbon dioxide, total [Moles /volume] in Serum or PlasmaOrdered By: Kenny Carreno on 05-09-2024 CO2 [Moles/Vol] 23.0 mmol/L Normal 21.0-31.0 [facility] Comment on above: Performed By: #### H EPATIC, BMP, LIPASE, DIFF CBC ####[address] [address] [facility] CO2 [Moles/Vol] Carbon dioxide, tota l [Moles/volume] in Serum or Plasma 21.0-31.0 [facility] Chloride [Moles/volume] in S claudia or PlasmaOrdered By: Kenny Carreno on 05-09-2024 Chloride [Moles/Vol] 103 mmol/L Normal 98-107 [facility] Comment on above: Performed By: #### H EPATIC, BMP, LIPASE, DIFF CBC ####[place] [id number] [facility] Chloride [Moles/Vol] Chloride [Moles/vol ume] in Serum or Plasma 98-107 [facility] Color Auto (U)Ordered By: KARIS TINEOER TEMP on 05-09-2024 Color (U) Color of Urine by Auto Yellow [facility] Color of Urine by AutoOrdere d By: PROVIDER TEMP on 05-09-2024 Color (U) Yellow Normal Yellow [facility] Comment on above: Order Comment: Name Collection Type:: Clean-Voided Midstream Performed By: #### C UU, ADDONUAPLUS ####[place] [id number] [place] Creatinine [Mass/volume] in Serum or PlasmaOrdered By: Kenny Carreno on 05-09-2024 Creatinine [Mass/Vol] 0.68 mg/dL Normal 0.60-1.20 [facility] Comment on above: Performed By: #### H EPATIC, BMP, LIPASE, DIFF CBC ####[address] [address] [facility] Creatinine [Mass/Vol] Creatinine [Mass/v olume] in Serum or Plasma 0.60-1.20 [facility] Diff and CBCon 05-09-2024 Mean Corpuscular HGB Conc 35.0 g/dL Normal 32.0-35.0 [facility] Comment on above: Performed By: #### H EPATIC, BMP, LIPASE, DIFF CBC ####[place] [id number] [facility] Metamyelocytes 2 % High 0-0 [facility] Comment on above: Performed By: #### H EPATIC, BMP, LIPASE, DIFF CBC ####[address] Monocytes/100 WBC (Bld) 19.42 % Normal 0.00-20.00 [facility] Comment on above: Result Comment: For adults in ED, MDW > 20.0 may be associated with a higher risk of sepsis during the first 12 hrs of hospital admission Performed By: #### H EPATIC, BMP, LIPASE, DIFF CBC ####[place] [id number] [facility] Platelet Estimate Normal Normal Normal [facility] Comment on above: Performed By: #### H EPATIC, BMP, LIPASE, DIFF CBC ####[place] [id number] [facility] Platelet Morphology Normal Normal Normal [facility] Comment on above: Result Comment: PERF ORMED BY: [facility] [address] [id number] PATHOLOGIST ELEVATOR DISPATCHER MATEO ROJAS M.D. Performed By: #### H EPATIC, BMP, LIPASE, DIFF CBC ####[place] [id number] [facility] WBC (Bld) [#/Vol] 16.3 10*3/uL High 3.8-11.6 [facility] Comment on above: Performed By: #### H EPATIC, BMP, LIPASE, DIFF CBC ####[place] [id number] [facility] Dipstick and Microscopicon 1 0 Bacteria,Urine Rare Normal None Seen [facility] Comment on above: Order Comment: Name Collection Type:: Clean-Voided Midstream Performed By: #### C UU, ADDONUAPLUS ####[place] [address] [place] [address] [facility] Bilirubin,Urine Negative Normal Negative [facility] Comment on above: Order Comment: Name Collection Type:: Clean-Voided Midstream Performed By: #### C UU, ADDONUAPLUS ####[place] [address] [place] [address] [facility] Glucose Ql (U) Normal Normal Normal [facility] Comment on above: Order Comment: Name Collection Type:: Clean-Voided Midstream Performed By: #### C UU, ADDONUAPLUS ####[address] [address] [facility] Hyaline Casts,Urine None Normal 0-8 [facility] Comment on above: Order Comment: Name Collection Type:: Clean-Voided Midstream Performed By: #### C UU, ADDONUAPLUS ####[address] [address] [facility] Mucus,Urine 2+ Critically abnormal [facility] Comment on above: Order Comment: Name Collection Type:: Clean-Voided Midstream Result Comment: PERF ORMED BY: [facility] [address] [place] [address] PATHOLOGIST ELEVATOR DISPATCHER MATEO ROJAS M.D. Performed By: #### C UU, ADDONUAPLUS ####[place] [address] [place] [address] [facility] Nitrite,Urine Negative Normal Negative [facility] Comment on above: Order Comment: Name Collection Type:: Clean-Voided Midstream Performed By: #### C UU, ADDONUAPLUS ####[place] [address] [place] [address] [facility] Occult Blood,Urine Negative Normal Negative [facility] Comment on above: Order Comment: Name Collection Type:: Clean-Voided Midstream Result Comment: PERF ORMED BY: [facility] [address] [place] [place] [id number] PATHOLOGIST ELEVATOR DISPATCHER MATEO ROJAS M.D. Performed By: #### C UU, ADDONUAPLUS ####[address] [address] [facility] Protein,Urine Trace High Negative [facility] Comment on above: Order Comment: Name Collection Type:: Clean-Voided Midstream Performed By: #### C UU, ADDONUAPLUS ####[address] [address] [facility] RBC,Urine 1-2 Normal 0-4 [facility] Comment on above: Order Comment: Name Collection Type:: Clean-Voided Midstream Performed By: #### C UU, ADDONUAPLUS ####[address] [address] [facility] Specificy Shiner,Urine 1.018 Normal 1.001-1.03 0 [facility] Comment on above: Order Comment: Name Collection Type:: Clean-Voided Midstream Performed By: #### C UU, ADDONUAPLUS ####[address] [address] [facility] Squamous Epithelial Cell,Urine 10-19 High 0-2 [facility] Comment on above: Order Comment: Name Collection Type:: Clean-Voided Midstream Performed By: #### C UU, ADDONUAPLUS ####[address] [address] [facility] Urobilinogen,Urine Normal Normal Normal [facility] Comment on above: Order Comment: Name Collection Type:: Clean-Voided Midstream Performed By: #### C UU, ADDONUAPLUS ####[address] [address] [facility] WBC,Urine 5-9 High 0-4 [facility] Comment on above: Order Comment: Name Collection Type:: Clean-Voided Midstream Performed By: #### C UU, ADDONUAPLUS ####[address] [place] [address] [place] Eosinophils Auto (Bld) [#/Vo l]Ordered By: Kenny Carreno on 05-09-2024 Eosinophils (Bld) [#/Vol] N/A [facility] Eosinophils (Bld) [#/Vol] Automated eosinophil count [facility] Eosinophils/100 WBC Auto (Bl d)Ordered By: Kenny Carreno on 05-09-2024 Eosinophils/100 WBC (Bld) N/A [facility] Eosinophils/100 WBC (Bld) Automated eosinophil % [facility] Eosinophils/100 WBC Manual c nt (Bld)Ordered By: Kenny Carreno on 05-09-2024 Eosinophils/100 WBC (Bld) Eosinophils/100 leukocytes in Blood by Manual count 1-3 [facility] Eosinophils/100 leukocytes i n Blood by Manual countOrdered By: Kenny Carreno on 05-09-2024 Eosinophils/100 WBC (Bld) 3 % Normal 1-3 [facility] Comment on above: Performed By: #### H EPATIC, BMP, LIPASE, DIFF CBC ####[facility] Epithelial cells.squamous [# /area] in Urine sediment by Automated countOrdered By: JAXON KAHN on 05-09-2024 Epithelial cells.squamous Auto (Urine sed) [#/Area] 10-19 [HPF] High 0-2 [facility] Epithelial cells.squamous Auto (Urine sed) [#/Area] Epithelial cells.squamous [#/area] in Urine sediment by Automated count High 0-2 [facility] Erythrocyte distribution wid th Auto (RBC) [Ratio]Ordered By: Kenny Carreno on 05-09-2024 Erythrocyte distribution width (RBC) [Ratio] Erythrocyte distribution width [Ratio] by Automated count 11.9-15.3 [facility] Erythrocyte distribution wid th [Ratio] by Automated countOrdered By: Kenny Carreno on 05-09-2024 Erythrocyte distribution width (RBC) [Ratio] 13.7 % Normal 11.9-15.3 [facility] Comment on above: Performed By: #### H EPATIC, BMP, LIPASE, DIFF CBC ####[address] Erythrocyte morphology findi ng [Identifier] in BloodOrdered By: Kenny Carreno on 05-09-2024 RBC morphology finding Nom (Bld) RBC morphology Normal [facility] Erythrocytes [#/area] in Uri ne sediment by Automated countOrdered By: JAXON KAHN on 05-09-2024 RBC Auto (Urine sed) [#/Area] 1-2 [HPF] 0-4 [facility] RBC Auto (Urine sed) [#/Area] Erythrocytes [#/area] in Urine sediment by Automated count 0-4 [facility] Erythrocytes [#/volume] in B lood by Automated countOrdered By: Kenny Carerno on 05-09-2024 RBC (Bld) [#/Vol] 4.54 10*6/uL Normal 3.60-5.00 [facility] Comment on above: Performed By: #### H EPATIC, BMP, LIPASE, DIFF CBC ####[facility] [id number] [place] [id number] [facility] Globulin Calc (S) [Mass/Vol] Ordered By: Kenny Carreno on 05-09-2024 Globulin (S) [Mass/Vol] Serum globulin measurement by calculation (mass/volume) [facility] Glucose [Mass/volume] in Ser um or PlasmaOrdered By: Kenny Carreno on 05-09-2024 Glucose [Mass/Vol] 137 mg/dL High 70-100 [facility] Comment on above: ADA recommended refe rence rangeRandom Glucose Reference Range is dependent on time and content of last meal. Glucose of more than 200 mg/dL in a nonstressed, ambulatory subject supports the diagnosis of Diabetes Mellitus. Result Comment: Isabel Glucose Reference Range is dependent on time and content of last meal. Glucose of more than 200 mg/dL in a nonstressed, ambulatory subject supports the diagnosis of Diabetes Mellitus. ADA recommended reference range Performed By: #### H EPATIC, BMP, LIPASE, DIFF CBC ####[facility] [id number] [place] [id number] [facility] Glucose [Mass/Vol] Glucose [Mass/volume ] in Serum or Plasma High 70-100 [facility] Comment on above: ADA recommended refe rence rangeRandom Glucose Reference Range is dependent on time and content of last meal. Glucose of more than 200 mg/dL in a nonstressed, ambulatory subject supports the diagnosis of Diabetes Mellitus. Glucose [Mass/volume] in Uri ne by Test stripOrdered By: PROVIDER TEMP on 05-09-2024 Glucose Test strip (U) [Mass/Vol] Normal mg/dL Normal [facility] Glucose Test strip (U) [Mass/Vol] Glucose [Mass/volume] in Urine by Test strip Normal [facility] Hematocrit Auto (Bld) [Volum e fraction]Ordered By: Kenny Carreno on 05-09-2024 Hematocrit (Bld) [Volume fraction] Hematocrit [Volume Fraction] of Blood by Automated count 34.0-46.4 [facility] Hematocrit [Volume Fraction] of Blood by Automated countOrdered By: Kenny Carreno on 05-09-2024 Hematocrit (Bld) [Volume fraction] 37.1 % Normal 34.0-46.4 [facility] Comment on above: Performed By: #### H EPATIC, BMP, LIPASE, DIFF CBC ####[address] Hemoglobin Test strip Ql (U) Ordered By: PROVIDER TEMP on 05-09-2024 Hemoglobin Ql (U) Negative Negative [facility] Hemoglobin Ql (U) Hemoglobin [Presence ] in Urine by Test strip Negative [facility] Hemoglobin [Mass/volume] in BloodOrdered By: Kenny Carreno on 05-09-2024 Hemoglobin (Bld) [Mass/Vol] 13.0 g/dL Normal 11.8-15.4 [facility] Comment on above: Performed By: #### H EPATIC, BMP, LIPASE, DIFF CBC ####[place] [id number] [facility] Hemoglobin (Bld) [Mass/Vol] Hemoglobin [Mass/volume] in Blood 11.8-15.4 [facility] Hepatic Panelon 05-09-2024 Albumin [Mass/Vol] 3.9 g/dL Normal 3.5-5.7 [facility] Comment on above: Performed By: #### H EPATIC, BMP, LIPASE, DIFF CBC ####[place] [id number] [facility] Bilirubin,Indirect 0.3 mg/dL Normal [facility] Comment on above: Performed By: #### H EPATIC, BMP, LIPASE, DIFF CBC ####[facility] Bilirubin.indirect [Mass/Vol] 0.00 mg/dL Low 0.03-0.18 [facility] Comment on above: Result Comment: If t he DBIL is less than 0.1, IBIL is not able to be calculated. Performed By: #### H EPATIC, BMP, LIPASE, DIFF CBC ####[place] [address] [address] Hyaline casts [#/area] in Ur ine sediment by Automated countOrdered By: PROVIDER TEMP on 05-09-2024 Hyaline casts Auto (Urine sed) [#/Area] None [LPF] 0-8 [facility] Hyaline casts Auto (Urine sed) [#/Area] Hyaline casts [#/area] in Urine sediment by Automated count 0-8 [facility] Ketones Test strip Ql (U)Ord ered By: PROVIDER TEMP on 05-09-2024 Ketones Ql (U) Ketones [Presence] i n Urine by Test strip Negative [facility] Ketones [Presence] in Urine by Test stripOrdered By: PROVIDER TEMP on 05-09-2024 Ketones Ql (U) Negative Normal Negative [facility] Comment on above: Order Comment: Name Collection Type:: Clean-Voided Midstream Performed By: #### C UU, ADDONUAPLUS ####[place] [address] [address] Laboratory - Microbiology an d Antimicrobial susceptibilityOrdered By: PROVIDER TEMP on 05-09-2024 Bacteria identified Cx Nom (U) bacilli - 2 Days [facility] Leukocyte esterase [Presence ] in Urine by Test stripOrdered By: PROVIDER TEMP on 05-09-2024 Leukocyte esterase Test strip Ql (U) 1+ High Negative [facility] Comment on above: Order Comment: Name Collection Type:: Clean-Voided Midstream Performed By: #### C UU, ADDONUAPLUS ####[place] [address] [place] [address] [facility] Leukocyte esterase Test strip Ql (U) Leukocyte esterase [Presence] in Urine by Test strip High Negative [facility] Leukocytes [#/area] in Urine sediment by Automated countOrdered By: JAXON KAHN on 05-09-2024 WBC Auto (Urine sed) [#/Area] 5-9 [HPF] High 0-4 [facility] WBC Auto (Urine sed) [#/Area] Leukocytes [#/area] in Urine sediment by Automated count High 0-4 [facility] Leukocytes [#/volume] correc cristian for nucleated erythrocytes in Blood by Automated counOrdered By: Kenny Carreno on 05-09-2024 WBC corrected for nucl RBC Auto (Bld) [#/Vol] 16.3 10*3/uL High 3.8-11.6 [facility] WBC corrected for nucl RBC Auto (Bld) [#/Vol] Leukocytes [#/volume] corrected for nucleated erythrocytes in Blood by Automated coun High 3.8-11.6 [facility] Leukocytes [#/volume] in Blo od by Automated countOrdered By: Kenny Carreno on 05-09-2024 WBC (Bld) [#/Vol] 17.6 10*3/uL [facility] 3.-11.6 [facility] Comment on above: Performed By: #### H EPATIC, BMP, LIPASE, DIFF CBC ####[place] [address] [place] [address] [facility] Lipase [Enzymatic activity/v olume] in Serum or PlasmaOrdered By: Kenny Carreno on 05-09-2024 Lipase [Catalytic activity/Vol] 27.0 U/L Normal 11.0-82.0 [facility] Comment on above: Result Comment: PERF ORMED BY: [facility] [address] [place] [address] PATHOLOGIST ELEVATOR DISPATCHER MATEO ROJAS M.D. Performed By: #### H EPATIC, BMP, LIPASE, DIFF CBC ####[place] [address] [place] [address] [facility] Lipase [Catalytic activity/Vol] Lipase [Enzymatic activity/volume] in Serum or Plasma 11.0-82.0 [facility] Lymphocytes Auto (Bld) [#/Vo l]Ordered By: Kenny Carreno on 05-09-2024 Lymphocytes (Bld) [#/Vol] N/A [facility] Lymphocytes (Bld) [#/Vol] Lymphocytes [#/volume] in Blood by Automated count [facility] Lymphocytes/100 WBC Auto (Bl d)Ordered By: Kenny Carreno on 05-09-2024 Lymphocytes/100 WBC (Bld) N/A [facility] Lymphocytes/100 WBC (Bld) Lymphocytes/100 leukocytes in Blood by Automated count [facility] Lymphocytes/100 WBC Manual c nt (Bld)Ordered By: Kenny Carreno on 05-09-2024 Lymphocytes/100 WBC (Bld) Lymphocytes/100 leukocytes in Blood by Manual count [facility] Lymphocytes/100 leukocytes i n Blood by Manual countOrdered By: Kenny Carreno on 05-09-2024 Lymphocytes/100 WBC (Bld) 19 % Normal [facility] Comment on above: Performed By: #### H EPATIC, BMP, LIPASE, DIFF CBC ####[facility] [id number] MCH Auto (RBC) [Entitic mass ]Ordered By: Kenny Carreno on 05-09-2024 MCH (RBC) [Entitic mass] MCH [Entitic mass] by Automated count 24.7-34.3 [facility] MCH [Entitic mass] by Automa cristian countOrdered By: Kenny Carreno on 05-09-2024 MCH (RBC) [Entitic mass] 28.6 pg Normal 24.7-34.3 [facility] Comment on above: Performed By: #### H EPATIC, BMP, LIPASE, DIFF CBC ####[facility] [id number] MCHC Auto (RBC) [Mass/Vol]Or dered By: Kenny Carreno on 05-09-2024 MCHC (RBC) [Mass/Vol] 35.0 g/dL 32.0-35.0 [facility] MCHC (RBC) [Mass/Vol] MCHC [Mass/volume] by Automated count 32.0-35.0 [facility] MCV Auto (RBC) [Entitic vol] Ordered By: Kenny Carreno on 05-09-2024 MCV (RBC) [Entitic vol] MCV [Entitic volume] by Automated count 80-100 [facility] MCV [Entitic volume] by Auto mated countOrdered By: Kenny Carreno on 05-09-2024 MCV (RBC) [Entitic vol] 81.8 fL Normal 80-100 [facility] Comment on above: Performed By: #### H EPATIC, BMP, LIPASE, DIFF CBC ####[facility] [id number] Manual blood segmented neutr ophils/100 leukocytesOrdered By: Kenny Carreno on 05-09-2024 Segmented neutrophils/100 WBC (Bld) 71 % High 50-70 [facility] Comment on above: Performed By: #### H EPATIC, BMP, LIPASE, DIFF CBC ####[facility] [id number] Metamyelocytes/100 WBC Manua l cnt (Bld)Ordered By: Kenny Carreno on 05-09-2024 Metamyelocytes/100 WBC (Bld) 2 % High 0-0 [facility] Metamyelocytes/100 WBC (Bld) Metamyelocytes/100 leukocytes in Blood by Manual count High 0-0 [facility] Monocyte distribution width [Entitic volume] in Blood by AutomatedOrdered By: Kenny Carreno on 05-09-2024 Monocyte distribution width Auto (Bld) [Entitic vol] 19.42 % 0.00-20.00 [facility] Comment on above: For adults in ED, MD W > 20.0 may be associated with a higher risk of sepsis during the first 12 hrs of hospital admission Monocyte distribution width Auto (Bld) [Entitic vol] Monocyte distribution width [Entitic volume] in Blood by Automated 0.00-20.00 [facility] Comment on above: For adults in ED, MD W > 20.0 may be associated with a higher risk of sepsis during the first 12 hrs of hospital admission Monocytes Auto (Bld) [#/Vol] Ordered By: Kenny Carreno on 05-09-2024 Monocytes (Bld) [#/Vol] N/A [facility] Monocytes (Bld) [#/Vol] Automated blood monocyte count [facility] Monocytes/100 WBC Auto (Bld) Ordered By: Kenny Carreno on 05-09-2024 Monocytes/100 WBC (Bld) N/A [facility] Monocytes/100 WBC (Bld) Automated monocyte % [facility] Monocytes/100 WBC Manual cnt (Bld)Ordered By: Kenny Carreno on 05-09-2024 Monocytes/100 WBC (Bld) Monocytes/100 leukocytes in Blood by Manual count 09-15 [facility] Monocytes/100 leukocytes in Blood by Manual countOrdered By: Kenny Carreno on 05-09-2024 Monocytes/100 WBC (Bld) 2 % Normal 09-15 [facility] Comment on above: Performed By: #### H EPATIC, BMP, LIPASE, DIFF CBC ####[facility] [id number] Mucus [Presence] in Urine by AutomatedOrdered By: PROVIDER TEMP on 05-09-2024 Mucus Auto Ql (U) 2+ [LPF] Abnormal [facility] Mucus Auto Ql (U) Mucus [Presence] in Urine by Automated Abnormal [facility] Neutrophils Auto (Bld) [#/Vo l]Ordered By: Kenny Carreno on 05-09-2024 Neutrophils (Bld) [#/Vol] N/A [facility] Neutrophils (Bld) [#/Vol] Neutrophils [#/volume] in Blood by Automated count [facility] Neutrophils/100 WBC Auto (Bl d)Ordered By: Kenny Carreno on 05-09-2024 Neutrophils/100 WBC (Bld) N/A [facility] Neutrophils/100 WBC (Bld) Automated neutrophil % [facility] Nitrite Test strip Ql (U)Ord ered By: PROVIDER TEMP on 05-09-2024 Nitrite Ql (U) Negative Negative [facility] Nitrite Ql (U) Nitrite [Presence] i n Urine by Test strip Negative [facility] No Panel InformationOrdered By: Kenny Carreno on 05-09-2024 Estimated GFR (CKD-EPI) > 60.0 mL/Min [facility] Creatinine Clearance (Chem 116.67 [facility] Nucleated erythrocytes [Pres ence] in Blood by Automated countOrdered By: Kenny Carreno on 05-09-2024 Nucleated RBC Auto Ql (Bld) N/A [facility] Nucleated RBC Auto Ql (Bld) Nucleated erythrocytes [Presence] in Blood by Automated count [facility] Peripheral white blood cell differential % bands, microscopic examOrdered By: Kenny Carreno on 05-09-2024 Band form neutrophils/100 WBC (Bld) 4 % Normal 0-5 [facility] Comment on above: Performed By: #### H EPATIC, BMP, LIPASE, DIFF CBC ####[facility] [id number] Platelet adequacy [Presence] in Blood by Light microscopyOrdered By: Kenny Carreno on 05-09-2024 Platelets LM Ql (Bld) Normal Normal [facility] Platelets LM Ql (Bld) Platelet adequacy [Presence] in Blood by Light microscopy Normal [facility] Platelet mean volume Auto (B ld) [Entitic vol]Ordered By: Kenny Carreno on 05-09-2024 Platelet mean volume (Bld) [Entitic vol] Platelet mean volume [Entitic volume] in Blood by Automated count 6.3-10.7 [facility] Platelet mean volume [Entiti c volume] in Blood by Automated countOrdered By: Kenny Carreno on 05-09-2024 Platelet mean volume (Bld) [Entitic vol] 7.7 fL Normal 6.3-10.7 [facility] Comment on above: Performed By: #### H EPATIC, BMP, LIPASE, DIFF CBC ####[address] Platelet morphology finding [Identifier] in BloodOrdered By: Kenny Carreno on 05-09-2024 Platelet morphology finding Nom (Bld) Normal Normal [facility] Platelet morphology finding Nom (Bld) Platelet morphology finding [Identifier] in Blood Normal [facility] Platelets Auto (Bld) [#/Vol] Ordered By: Kenny Carreno on 05-09-2024 Platelets (Bld) [#/Vol] Platelets [#/volume] in Blood by Automated count 150-450 [facility] Platelets [#/volume] in Bloo d by Automated countOrdered By: Kenny Carreno on 05-09-2024 Platelets (Bld) [#/Vol] 292 10*3/uL Normal 150-450 [facility] Comment on above: Performed By: #### H EPATIC, BMP, LIPASE, DIFF CBC ####[facility] [place] [id number] [facility] Potassium [Moles/volume] in Serum or PlasmaOrdered By: Kenny Carreno on 05-09-2024 Potassium [Moles/Vol] 4.1 mmol/L Normal 3.5-5.1 [facility] Comment on above: Hemolysis is present at a level that could interfere with the result.Contact lab if redraw is required Result Comment: Hemo lysis is present at a level that could interfere with the result. Contact lab if redraw is required Performed By: #### H EPATIC, BMP, LIPASE, DIFF CBC ####[place] [address] [place] [id number] [facility] Potassium [Moles/Vol] Potassium [Moles/v olume] in Serum or Plasma 3.5-5.1 [facility] Comment on above: Hemolysis is present at a level that could interfere with the result.Contact lab if redraw is required Protein Test strip (U) [Mass /Vol]Ordered By: JAXON KAHN on 05-09-2024 Protein (U) [Mass/Vol] Trace mg/dL High Negative [facility] Protein (U) [Mass/Vol] Protein [Mass/vol ume] in Urine by Test strip High Negative [facility] Protein [Mass/volume] in Ser um or PlasmaOrdered By: Kenny Carreno on 05-09-2024 Protein [Mass/Vol] 7.8 g/dL Normal 6.4-8.9 [facility] Comment on above: Performed By: #### H EPATIC, BMP, LIPASE, DIFF CBC ####[place] [address] [place] [id number] [facility] Protein [Mass/Vol] Protein [Mass/volume ] in Serum or Plasma 6.4-8.9 [facility] RBC Auto (Bld) [#/Vol]Ordere d By: Kenny Carreno on 05-09-2024 RBC (Bld) [#/Vol] Erythrocytes [#/volu me] in Blood by Automated count 3.60-5.00 [facility] RBC morphologyOrdered By: Emilie Carreno on 05-09-2024 RBC morphology finding Nom (Bld) Normal Normal Normal [facility] Comment on above: Performed By: #### H EPATIC, BMP, LIPASE, DIFF CBC ####[facility] [id number] Segmented neutrophils/100 WB C Manual cnt (Bld)Ordered By: Kenny Carreno on 05-09-2024 Segmented neutrophils/100 WBC (Bld) Manual blood segmented neutrophils/100 leukocytes High 50-70 [facility] Serum globulin measurement b y calculation (mass/volume)Ordered By: Kenny Carreno on 05-09-2024 Globulin (S) [Mass/Vol] 3.9 g/dL Normal [facility] Comment on above: Performed By: #### H EPATIC, BMP, LIPASE, DIFF CBC ####[address] Serum or plasma albumin/glob ulin mass ratioOrdered By: Kenny Carreno on 05-09-2024 Albumin/Globulin [Mass ratio] 1.0 {ratio} Normal [facility] Comment on above: Performed By: #### H EPATIC, BMP, LIPASE, DIFF CBC ####[address] Albumin/Globulin [Mass ratio] Serum or plasma albumin/globulin mass ratio [facility] Serum or plasma anion gap de terminationOrdered By: Kenny Carreno on 05-09-2024 Anion gap [Moles/Vol] 14.1 mmol/L Normal 6.0-15.0 [facility] Comment on above: Performed By: #### H EPATIC, BMP, LIPASE, DIFF CBC ####[facility] [id number] [place] [address] Anion gap [Moles/Vol] Serum or plasma an ion gap determination 6.0-15.0 [facility] Serum or plasma non-glucuron idated bilirubin measurement (mass/volume)Ordered By: Kenny Carreno on 05-09-2024 Bilirubin.indirect [Mass/Vol] 0.3 mg/dL [facility] Bilirubin.indirect [Mass/Vol] Serum or plasma non-glucuronidated bilirubin measurement (mass/volume) [facility] Sodium [Moles/volume] in Ser um or PlasmaOrdered By: Kenny Carreno on 05-09-2024 Sodium [Moles/Vol] 136 mmol/L Normal 136-145 [facility] Comment on above: Performed By: #### H EPATIC, BMP, LIPASE, DIFF CBC ####[place] [address] [place] [id number] [facility] Sodium [Moles/Vol] Sodium [Moles/volume ] in Serum or Plasma 136-145 [facility] Specific gravity Test strip (U) [Rel density]Ordered By: PROVIDER TEMP on 05-09-2024 Specific gravity (U) [Rel density] 1.018 1.001-1.03 0 [facility] Specific gravity (U) [Rel density] Specific gravity of Urine by Test strip 1.001-1.03 0 [facility] Urea nitrogen [Mass/volume] in Serum or PlasmaOrdered By: Kenny Carreno on 05-09-2024 Urea nitrogen [Mass/Vol] 21 mg/dL Normal 7-25 [facility] Comment on above: Performed By: #### H EPATIC, BMP, LIPASE, DIFF CBC ####[place] [id number] [facility] Urea nitrogen [Mass/Vol] Urea nitrogen [Mass/volume] in Serum or Plasma 7-25 [facility] Urine Cultureon 05-09-2024 Bacteria identified Cx Nom (U) >100,000 colonies/ml mixed bacterial skin contaminants including mixed gram negative bacilli - 2 Days PERFORMED BY: [facility] [address] [place] [address] PATHOLOGIST ELEVATOR DISPATCHER MATEO ROJAS M.D. Normal [facility] Comment on above: Performed By: #### C UU, ADDONUAPLUS ####[place] [id number] [facility] Urine appearanceOrdered By: PROVIDER TEMP on 05-09-2024 Appearance (U) Cloudy Critically abnormal Clear [facility] Comment on above: Order Comment: Name Collection Type:: Clean-Voided Midstream Performed By: #### C UU, ADDONUAPLUS ####[place] [address] [place] [id number] [facility] Urine cultureOrdered By: PRO SANDSR FEMI on 05-09-2024 Bacteria identified Cx Nom (U) Urine culture [facility] Urobilinogen Test strip (U) [Mass/Vol]Ordered By: PROVIDER TEMP on 05-09-2024 Urobilinogen (U) [Mass/Vol] Normal mg/dL Normal [facility] Urobilinogen (U) [Mass/Vol] Urobilinogen [Mass/volume] in Urine by Test strip Normal [facility] WBC Auto (Bld) [#/Vol]Ordere d By: Kenny Carreno on 05-09-2024 WBC (Bld) [#/Vol] Leukocytes [#/volume ] in Blood by Automated count High 3.8-11.6 [facility] pH Test strip (U)Ordered By: PROVIDER TEMP on 05-09-2024 pH (U) pH of Urine by Test strip 5.0-9.0 [facility] pH of Urine by Test stripOrd ered By: PROVIDER TEMP on 05-09-2024 pH (U) 5.5 [pH] Normal 5.0-9.0 [facility] Comment on above: Order Comment: Name Collection Type:: Clean-Voided Midstream Performed By: #### C UU, ADDONUAPLUS ####[address] Laboratory - Microbiology an d Antimicrobial susceptibilityOrdered By: Ashley Mendoza on 05-08-2024 Bacteria identified Cx Nom (U) 2 Days [facility] Urine Cultureon 05-08-2024 Bacteria identified Cx Nom (U) Reason for Exam Acute cystitis without hematuria Urine >100,000 colonies/ml mixed bacterial skin contaminants 2 Days PERFORMED BY: [facility] [address] [place] [id number] PATHOLOGIST ELEVATOR DISPATCHER MATEO ROJAS M.D. Normal [facility] Comment on above: Performed By: #### C UU ####[address] Appearance of UrineOrdered B y: Kenny Carreno on 05-05-2024 Appearance (U) Urine appearance Abnormal Clear [facility] Bacteria [Presence] in Urine by AutomatedOrdered By: Kenny Carreno on 05-05-2024 Bacteria Auto Ql (U) Rare [HPF] None Seen [facility] Bacteria Auto Ql (U) Bacteria [Presence] in Urine by Automated None Seen [facility] Bilirubin Test strip Ql (U)O rdered By: Kenny Carreno on 05-05-2024 Bilirubin Ql (U) Negative Negative [facility] Bilirubin Ql (U) Bilirubin.total [Presence] in Urine by Test strip Negative [facility] CT abdomen pelvis wo conon 1 CT abdomen pelvis wo con [facility] Main [place] [id number] CT Scan Report Signed Patient: Lisa Mendez MR#: [id number] : [id number] Acct:[id number] Age/Sex: 48 / F ADM Date: 05/04/24 Loc: ER Room: Type: [facility] ER Attending Dr: Copies to: Kenny Carreno Jr, MD Ordering Provider: Kenny Carreno Jr, MD Date of Service: 05/05/24 CT/CT abdomen pelvis wo con: L back pain thinks kidney stone CT ABDOMEN AND PELVIS WITHOUT INTRAVENOUS CONTRAST: CLINICAL HISTORY: Left-sided back pain for 3 months. COMPARISON: CT abdomen and pelvis 08/08/2023 TECHNIQUE: Spiral images were obtained through the abdomen and pelvis without intravenous contrast. This CT exam was performed using one or more following dose reduction techniques: Automated exposure control, adjustment of the mA and/or kV according to patient size, or use of iterative reconstruction technique. FINDINGS: Lung Bases: [Respiratory motion limits evaluation. No focal consolidation.] Organs:Suboptimal evaluation due to lack of IV contrast. Gallbladder has been removed. Liver spleen pancreas and adrenal glands appear unremarkable. Left nephrolithiasis, largest stone measuring 4 mm. Right kidney appears unremarkable. No obstructive uropathy. Abdominal aorta appears normal in caliber.[ GI: Stomach is grossly unremarkable. Small bowel appears nondilated. No acute colonic abnormality. Appendix is normal.[ Pelvis:[Urinary bladder is grossly unremarkable. Uterus has been removed. No adnexal mass.] Peritoneum/Retroperitoneu m:No free air or free fluid or lymphadenopathy.[ Abd wall/Bones:Abdominal wall demonstrates no acute findings. 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 Osseous structures demonstrate degenerative change.[ CT/CT abdomen pelvis wo con IMPRESSION: Left nephrolithiasis. No obstructive uropathy. Impression dictated by: Erik Gipson Jr., DJeysonOJeyson05/05/2024 8:43 AM Dictation Location: [place] [address] Transcribed By: [facility] 05/05/24842 Dictated By: Erik Gipson Jr, DO 05/05/2440 Signed By: 05/05/24842 Normal [facility] Casts [Presence] in Urine by AutomatedOrdered By: Kenny Carreno on 05-05-2024 Casts Auto Ql (U) 1-2 [LPF] High None Seen [facility] Casts Auto Ql (U) Casts [Presence] in Urine by Automated High None Seen [facility] Color Auto (U)Ordered By: Emilie Carreno on 05-05-2024 Color (U) Color of Urine by Auto Yellow [facility] Color of Urine by AutoOrdere d By: Kenny Carreno on 05-05-2024 Color (U) Light-yellow Normal Yellow [facility] Comment on above: Order Comment: Name Collection Type:: Clean-Voided Midstream Performed By: #### A DDONUAPLUS ####[facility] [id number] [place] [address] [facility] Crystals [Presence] in Urine by AutomatedOrdered By: Kenny Carreno on 05-05-2024 Crystals Auto Ql (U) Rare [HPF] [facility] Crystals Auto Ql (U) Crystals [Presence] in Urine by Automated [facility] Dipstick and Microscopicon 1 Bacteria,Urine Rare Normal None Seen [facility] Comment on above: Order Comment: Name Collection Type:: Clean-Voided Midstream Performed By: #### A DDONUAPLUS ####[facility] [id number] [place] [address] [place] Bilirubin,Urine Negative Normal Negative [facility] Comment on above: Order Comment: Name Collection Type:: Clean-Voided Midstream Performed By: #### A DDONUAPLUS ####[place] [address] [place] [address] [facility] Glucose Ql (U) Normal Normal Normal [facility] Comment on above: Order Comment: Name Collection Type:: Clean-Voided Midstream Performed By: #### A DDONUAPLUS ####[address] [address] [place] Hyaline Casts,Urine None Normal 0-8 [facility] Comment on above: Order Comment: Name Collection Type:: Clean-Voided Midstream Performed By: #### A DDONUAPLUS ####[address] [address] [facility] Mucus,Urine Rare Normal [facility] Comment on above: Order Comment: Name Collection Type:: Clean-Voided Midstream Result Comment: PERF ORMED BY: [facility] [address] [place] [address] PATHOLOGIST ELEVATOR DISPATCHER MATEO ROJAS M.D. Performed By: #### A DDONUAPLUS ####[address] [address] [facility] Nitrite,Urine Negative Normal Negative [facility] Comment on above: Order Comment: Name Collection Type:: Clean-Voided Midstream Performed By: #### A DDONUAPLUS ####[address] [address] [facility] Non-Squamous Epithelial Cell,U 3-4 High None Seen [facility] Comment on above: Order Comment: Name Collection Type:: Clean-Voided Midstream Performed By: #### A DDONUAPLUS ####[address] [address] [facility] Occult Blood,Urine Negative Normal Negative [facility] Comment on above: Order Comment: Name Collection Type:: Clean-Voided Midstream Result Comment: PERF ORMED BY: [facility] [address] [place] [id number] PATHOLOGIST ELEVATOR DISPATCHER MATEO ROJAS M.D. Performed By: #### A DDONUAPLUS ####[place] [address] [place] [address] [facility] Othe Crystals,Urine Rare Normal [facility] Comment on above: Order Comment: Name Collection Type:: Clean-Voided Midstream Performed By: #### A DDONUAPLUS ####[address] [address] [facility] Other Casts,Urine 1-2 High None Seen [facility] Comment on above: Order Comment: Name Collection Type:: Clean-Voided Midstream Performed By: #### A DDONUAPLUS ####[address] [address] [facility] Protein,Urine Negative Normal Negative [facility] Comment on above: Order Comment: Name Collection Type:: Clean-Voided Midstream Performed By: #### A DDONUAPLUS ####[address] [address] [facility] RBC,Urine 3-4 Normal 0-4 [facility] Comment on above: Order Comment: Name Collection Type:: Clean-Voided Midstream Performed By: #### A DDONUAPLUS ####[address] [address] [facility] Specificy Shiner,Urine 1.017 Normal 1.001-1.03 0 [facility] Comment on above: Order Comment: Name Collection Type:: Clean-Voided Midstream Performed By: #### A DDONUAPLUS ####[address] [address] [facility] Squamous Epithelial Cell,Urine 5-9 High 0-2 [facility] Comment on above: Order Comment: Name Collection Type:: Clean-Voided Midstream Performed By: #### A DDONUAPLUS ####[address] [address] [facility] Urobilinogen,Urine Normal Normal Normal [facility] Comment on above: Order Comment: Name Collection Type:: Clean-Voided Midstream Performed By: #### A DDONUAPLUS ####[address] [address] [facility] WBC CLUMP, Urine Many High None Seen [facility] Comment on above: Order Comment: Name Collection Type:: Clean-Voided Midstream Performed By: #### A DDONUAPLUS ####[facility] [id number] WBC,Urine 20-49 High 0-4 [facility] Comment on above: Order Comment: Name Collection Type:: Clean-Voided Midstream Performed By: #### A DDONUAPLUS ####[facility] [id number] Epithelial cells.non-squamou s [#/area] in Urine sediment by Automated countOrdered By: Kenny Carreno on 05-05-2024 Epithelial cells.non-squamous Auto (Urine sed) [#/Area] 3-4 [HPF] High None Seen [facility] Epithelial cells.non-squamous Auto (Urine sed) [#/Area] Epithelial cells.non-squamous [#/area] in Urine sediment by Automated count High None Seen [facility] Epithelial cells.squamous [# /area] in Urine sediment by Automated countOrdered By: Kenny Carreno on 05-05-2024 Epithelial cells.squamous Auto (Urine sed) [#/Area] 5-9 [HPF] High 0-2 [facility] Epithelial cells.squamous Auto (Urine sed) [#/Area] Epithelial cells.squamous [#/area] in Urine sediment by Automated count High 0-2 [facility] Erythrocytes [#/area] in Uri ne sediment by Automated countOrdered By: Kenny Carreno on 05-05-2024 RBC Auto (Urine sed) [#/Area] 3-4 [HPF] 0-4 [facility] RBC Auto (Urine sed) [#/Area] Erythrocytes [#/area] in Urine sediment by Automated count 0-4 [facility] Glucose [Mass/volume] in Uri ne by Test stripOrdered By: Kenny Carreno on 05-05-2024 Glucose Test strip (U) [Mass/Vol] Normal mg/dL Normal [facility] Glucose Test strip (U) [Mass/Vol] Glucose [Mass/volume] in Urine by Test strip Normal [facility] Hemoglobin Test strip Ql (U) Ordered By: Kenny Carreno on 05-05-2024 Hemoglobin Ql (U) Negative Negative [facility] Hemoglobin Ql (U) Hemoglobin [Presence ] in Urine by Test strip Negative [facility] Hyaline casts [#/area] in Ur ine sediment by Automated countOrdered By: Kenny Carreno on 05-05-2024 Hyaline casts Auto (Urine sed) [#/Area] None [LPF] 0-8 [facility] Hyaline casts Auto (Urine sed) [#/Area] Hyaline casts [#/area] in Urine sediment by Automated count 0-8 [facility] Ketones Test strip Ql (U)Ord ered By: Kenny Carreno on 05-05-2024 Ketones Ql (U) Ketones [Presence] i n Urine by Test strip Negative [facility] Ketones [Presence] in Urine by Test stripOrdered By: Kenny Carreno on 05-05-2024 Ketones Ql (U) Negative Normal Negative [facility] Comment on above: Order Comment: Name Collection Type:: Clean-Voided Midstream Performed By: #### A DDONUAPLUS ####[facility] [id number] [place] [address] Leukocyte clumps [Presence] in Urine by AutomatedOrdered By: Kenny Carreno on 05-05-2024 Leukocyte clumps Auto Ql (U) Many [LPF] High None Seen [facility] Leukocyte clumps Auto Ql (U) Leukocyte clumps [Presence] in Urine by Automated High None Seen [facility] Leukocyte esterase [Presence ] in Urine by Test stripOrdered By: Kenny Carreno on 05-05-2024 Leukocyte esterase Test strip Ql (U) Negative Normal Negative [facility] Comment on above: Order Comment: Name Collection Type:: Clean-Voided Midstream Performed By: #### A DDONUAPLUS ####[facility] [id number] [place] [address] Leukocyte esterase Test strip Ql (U) Leukocyte esterase [Presence] in Urine by Test strip Negative [facility] Leukocytes [#/area] in Urine sediment by Automated countOrdered By: Kenny Carreno on 05-05-2024 WBC Auto (Urine sed) [#/Area] 20-49 [HPF] High 0-4 [facility] WBC Auto (Urine sed) [#/Area] Leukocytes [#/area] in Urine sediment by Automated count High 0-4 [facility] Mucus [Presence] in Urine by AutomatedOrdered By: Kenny Carreno on 05-05-2024 Mucus Auto Ql (U) Rare [LPF] [facility] Mucus Auto Ql (U) Mucus [Presence] in Urine by Automated [facility] Nitrite Test strip Ql (U)Ord ered By: Kenny Carreno on 05-05-2024 Nitrite Ql (U) Negative Negative [facility] Nitrite Ql (U) Nitrite [Presence] i n Urine by Test strip Negative [facility] Protein Test strip (U) [Mass /Vol]Ordered By: Kenny Carreno on 05-05-2024 Protein (U) [Mass/Vol] Negative Negative [facility] Protein (U) [Mass/Vol] Protein [Mass/vol ume] in Urine by Test strip Negative [facility] Specific gravity Test strip (U) [Rel density]Ordered By: Kenny Carreno on 05-05-2024 Specific gravity (U) [Rel density] 1.017 1.001-1.03 0 [facility] Specific gravity (U) [Rel density] Specific gravity of Urine by Test strip 1.001-1.03 0 [facility] Urine appearanceOrdered By: Kenny Carreno on 05-05-2024 Appearance (U) Cloudy Critically abnormal Clear [facility] Comment on above: Order Comment: Name Collection Type:: Clean-Voided Midstream Performed By: #### A DDONUAPLUS ####[facility] [id number] [place] [id number] [facility] Urobilinogen Test strip (U) [Mass/Vol]Ordered By: Kenny Carreno on 05-05-2024 Urobilinogen (U) [Mass/Vol] Normal mg/dL Normal [facility] Urobilinogen (U) [Mass/Vol] Urobilinogen [Mass/volume] in Urine by Test strip Normal [facility] pH Test strip (U)Ordered By: Kenny Carreno on 05-05-2024 pH (U) pH of Urine by Test strip 5.0-9.0 [facility] pH of Urine by Test stripOrd ered By: Kenny Carreno on 05-05-2024 pH (U) 6.5 [pH] Normal 5.0-9.0 [facility] Comment on above: Order Comment: Name Collection Type:: Clean-Voided Midstream Performed By: #### A DDONUAPLUS ####[facility] [place] [id number] [facility] Alanine aminotransferase [En zymatic activity/volume] in Serum or PlasmaOrdered By: PROVIDER TEMP on 05-04-2024 ALT [Catalytic activity/Vol] 16 U/L Normal [facility] Comment on above: Performed By: #### B MP, HEPATIC, LIPASE, CBC ####[place] [address] [address] ALT [Catalytic activity/Vol] Alanine aminotransferase [Enzymatic activity/volume] in Serum or Plasma [facility] Albumin [Mass/volume] in Ser um or Plasma by Bromocresol green (BCG) dye binding methoOrdered By: PROVIDER TEMP on 05-04-2024 Albumin BCG dye [Mass/Vol] 3.9 g/dL 3.5-5.7 [facility] Albumin BCG dye [Mass/Vol] Albumin [Mass/volume] in Serum or Plasma by Bromocresol green (BCG) dye binding metho 3.5-5.7 [facility] Alkaline phosphatase [Enzyma tic activity/volume] in Serum or PlasmaOrdered By: PROVIDER TEMP on 05-04-2024 ALP [Catalytic activity/Vol] 103 U/L Normal - [facility] Comment on above: Performed By: #### B MP, HEPATIC, LIPASE, CBC ####[facility] [id number] [place] [id number] [facility] ALP [Catalytic activity/Vol] Alkaline phosphatase [Enzymatic activity/volume] in Serum or Plasma [facility] Aspartate aminotransferase [ Enzymatic activity/volume] in Serum or PlasmaOrdered By: PROVIDER TEMP on 05-04-2024 AST [Catalytic activity/Vol] 16 U/L Normal 13-39 [facility] Comment on above: Performed By: #### B MP, HEPATIC, LIPASE, CBC ####[place] [address] AST [Catalytic activity/Vol] Aspartate aminotransferase [Enzymatic activity/volume] in Serum or Plasma 13-39 [facility] Automated basophil %Ordered By: PROVIDER TEMP on 05-04-2024 Basophils/100 WBC (Bld) 0.7 % Normal . [facility] Comment on above: Performed By: #### B MP, HEPATIC, LIPASE, CBC ####[address] Automated basophil countOrde red By: PROVIDER TEMP on 05-04-2024 Basophils (Bld) [#/Vol] 0.1 10*3/uL Normal 0.0-0.2 [facility] Comment on above: Result Comment: PERF ORMED BY: [facility] [address] [facility] [place] [address] PATHOLOGIST ELEVATOR DISPATCHER MATEO ROJAS M.D. Performed By: #### B MP, HEPATIC, LIPASE, CBC ####[address] Automated blood monocyte cou ntOrdered By: PROVIDER TEMP on 05-04-2024 Monocytes (Bld) [#/Vol] 0.8 10*3/uL Normal 0.0-0.8 [facility] Comment on above: Performed By: #### B MP, HEPATIC, LIPASE, CBC ####[address] Automated eosinophil %Ordere d By: PROVIDER TEMP on 05-04-2024 Eosinophils/100 WBC (Bld) 2.6 % Normal . [facility] Comment on above: Performed By: #### B MP, HEPATIC, LIPASE, CBC ####[address] Automated eosinophil countOr dered By: PROVIDER TEMP on 05-04-2024 Eosinophils (Bld) [#/Vol] 0.3 10*3/uL Normal 0.0-0.45 [facility] Comment on above: Performed By: #### B MP, HEPATIC, LIPASE, CBC ####[address] [place] [address] [place] Automated monocyte %Ordered By: PROVIDER TEMP on 05-04-2024 Monocytes/100 WBC (Bld) 7.3 % Normal . [facility] Comment on above: Performed By: #### B MP, HEPATIC, LIPASE, CBC ####[address] Automated neutrophil %Ordere d By: PROVIDER TEMP on 05-04-2024 Neutrophils/100 WBC (Bld) 61.5 % Normal . [facility] Comment on above: Performed By: #### B MP, HEPATIC, LIPASE, CBC ####[place] [address] Basic Metabolic Panelon 04-07 Creatinine Clr Calc Pharmacy 149.80 Normal [facility] Comment on above: Performed By: #### B MP, HEPATIC, LIPASE, CBC ####[address] GFR/1.73 sq M.predicted MDRD (S/P/Bld) [Vol rate/Area] mL/min/{1.73_m2} Normal [facility] Comment on above: Performed By: #### B MP, HEPATIC, LIPASE, CBC ####[address] Basophils Auto (Bld) [#/Vol] Ordered By: PROVIDER TEMP on 05-04-2024 Basophils (Bld) [#/Vol] Automated basophil count 0.0-0.2 [facility] Basophils/100 WBC Auto (Bld) Ordered By: PROVIDER TEMP on 05-04-2024 Basophils/100 WBC (Bld) Automated basophil % . [facility] Bilirubin.direct [Mass/volum e] in Serum or PlasmaOrdered By: PROVIDER TEMP on 05-04-2024 Bilirubin.direct [Mass/Vol] 0.10 mg/dL 0.03-0.18 [facility] Bilirubin.direct [Mass/Vol] Bilirubin.direct [Mass/volume] in Serum or Plasma 0.03-0.18 [facility] Bilirubin.total [Mass/volume ] in Serum or PlasmaOrdered By: PROVIDER TEMP on 05-04-2024 Bilirubin [Mass/Vol] 0.2 mg/dL Low 0.3-1.0 [facility] Comment on above: Performed By: #### B MP, HEPATIC, LIPASE, CBC ####[place] [address] [place] [id number] [facility] Bilirubin [Mass/Vol] Bilirubin.total [Mass/volume] in Serum or Plasma Low 0.3-1.0 [facility] Calcium [Mass/volume] in Ser um or PlasmaOrdered By: PROVIDER TEMP on 05-04-2024 Calcium [Mass/Vol] 8.9 mg/dL Normal 8.6-10.3 [facility] Comment on above: Performed By: #### B MP, HEPATIC, LIPASE, CBC ####[place] [address] [place] [address] [facility] Calcium [Mass/Vol] Calcium [Mass/volume ] in Serum or Plasma 8.6-10.3 [facility] Carbon dioxide, total [Moles /volume] in Serum or PlasmaOrdered By: PROVIDER TEMP on 05-04-2024 CO2 [Moles/Vol] 28.5 mmol/L Normal 21.0-31.0 [facility] Comment on above: Performed By: #### B MP, HEPATIC, LIPASE, CBC ####[place] [id number] [facility] CO2 [Moles/Vol] Carbon dioxide, tota l [Moles/volume] in Serum or Plasma 21.0-31.0 [facility] Chloride [Moles/volume] in S claudia or PlasmaOrdered By: PROVIDER TEMP on 05-04-2024 Chloride [Moles/Vol] 103 mmol/L Normal 98-107 [facility] Comment on above: Performed By: #### B MP, HEPATIC, LIPASE, CBC ####[facility] [id number] [place] [id number] [facility] Chloride [Moles/Vol] Chloride [Moles/vol ume] in Serum or Plasma 98-107 [facility] Complete Blood Count Auto Di ffon 05-04-2024 Mean Corpuscular HGB Conc 35.0 g/dL Normal 32.0-35.0 [facility] Comment on above: Performed By: #### B MP, HEPATIC, LIPASE, CBC ####[place] [address] Monocytes/100 WBC (Bld) 18.41 % Normal 0.00-20.00 [facility] Comment on above: Performed By: #### B MP, HEPATIC, LIPASE, CBC ####[address] NRBC% 0.0 /100{WBC} Normal 0-0.5 [facility] Comment on above: Performed By: #### B MP, HEPATIC, LIPASE, CBC ####[address] Creatinine [Mass/volume] in Serum or PlasmaOrdered By: PROVIDER TEMP on 05-04-2024 Creatinine [Mass/Vol] 0.54 mg/dL Low 0.60-1.20 [facility] Comment on above: Performed By: #### B MP, HEPATIC, LIPASE, CBC ####[address] Creatinine [Mass/Vol] Creatinine [Mass/v olume] in Serum or Plasma Low 0.60-1.20 [facility] Eosinophils Auto (Bld) [#/Vo l]Ordered By: PROVIDER TEMP on 05-04-2024 Eosinophils (Bld) [#/Vol] Automated eosinophil count 0.0-0.45 [facility] Eosinophils/100 WBC Auto (Bl d)Ordered By: PROVIDER TEMP on 05-04-2024 Eosinophils/100 WBC (Bld) Automated eosinophil % . [facility] Erythrocyte distribution wid th Auto (RBC) [Ratio]Ordered By: PROVIDER TEMP on 05-04-2024 Erythrocyte distribution width (RBC) [Ratio] Erythrocyte distribution width [Ratio] by Automated count 11.9-15.3 [facility] Erythrocyte distribution wid th [Ratio] by Automated countOrdered By: PROVIDER TEMP on 05-04-2024 Erythrocyte distribution width (RBC) [Ratio] 13.2 % Normal 11.9-15.3 [facility] Comment on above: Performed By: #### B MP, HEPATIC, LIPASE, CBC ####[facility] [id number] [place] [id number] [facility] Erythrocytes [#/volume] in B lood by Automated countOrdered By: PROVIDER TEMP on 05-04-2024 RBC (Bld) [#/Vol] 4.29 10*6/uL Normal 3.60-5.00 [facility] Comment on above: Performed By: #### B MP, HEPATIC, LIPASE, CBC ####[facility] [id number] [place] [id number] [facility] Globulin Calc (S) [Mass/Vol] Ordered By: PROVIDER TEMP on 05-04-2024 Globulin (S) [Mass/Vol] Serum globulin measurement by calculation (mass/volume) [facility] Glucose [Mass/volume] in Ser um or PlasmaOrdered By: PROVIDER TEMP on 05-04-2024 Glucose [Mass/Vol] 146 mg/dL High 70-100 [facility] Comment on above: ADA recommended refe rence rangeRandom Glucose Reference Range is dependent on time and content of last meal. Glucose of more than 200 mg/dL in a nonstressed, ambulatory subject supports the diagnosis of Diabetes Mellitus. Result Comment: Isabel Glucose Reference Range is dependent on time and content of last meal. Glucose of more than 200 mg/dL in a nonstressed, ambulatory subject supports the diagnosis of Diabetes Mellitus. ADA recommended reference range Performed By: #### B MP, HEPATIC, LIPASE, CBC ####[facility] [id number] [place] [id number] [facility] Glucose [Mass/Vol] Glucose [Mass/volume ] in Serum or Plasma High 70-100 [facility] Comment on above: ADA recommended refe rence rangeRandom Glucose Reference Range is dependent on time and content of last meal. Glucose of more than 200 mg/dL in a nonstressed, ambulatory subject supports the diagnosis of Diabetes Mellitus. Hematocrit Auto (Bld) [Volum e fraction]Ordered By: PROVIDER TEMP on 05-04-2024 Hematocrit (Bld) [Volume fraction] Hematocrit [Volume Fraction] of Blood by Automated count 34.0-46.4 [facility] Hematocrit [Volume Fraction] of Blood by Automated countOrdered By: PROVIDER TEMP on 05-04-2024 Hematocrit (Bld) [Volume fraction] 35.5 % Normal 34.0-46.4 [facility] Comment on above: Performed By: #### B MP, HEPATIC, LIPASE, CBC ####[place] [id number] [facility] Hemoglobin [Mass/volume] in BloodOrdered By: PROVIDER TEMP on 05-04-2024 Hemoglobin (Bld) [Mass/Vol] 12.4 g/dL Normal 11.8-15.4 [facility] Comment on above: Performed By: #### B MP, HEPATIC, LIPASE, CBC ####[place] [address] Hemoglobin (Bld) [Mass/Vol] Hemoglobin [Mass/volume] in Blood 11.8-15.4 [facility] Hepatic Panelon 05-04-2024 Albumin [Mass/Vol] 3.9 g/dL Normal 3.5-5.7 [facility] Comment on above: Performed By: #### B MP, HEPATIC, LIPASE, CBC ####[address] Bilirubin,Indirect 0.1 mg/dL Normal [facility] Comment on above: Performed By: #### B MP, HEPATIC, LIPASE, CBC ####[address] Bilirubin.indirect [Mass/Vol] 0.10 mg/dL Normal 0.03-0.18 [facility] Comment on above: Performed By: #### B MP, HEPATIC, LIPASE, CBC ####[place] [id number] [facility] Leukocytes [#/volume] correc cristian for nucleated erythrocytes in Blood by Automated counOrdered By: PROVIDER TEMP on 05-04-2024 WBC corrected for nucl RBC Auto (Bld) [#/Vol] 10.3 10*3/uL 3.8-11.6 [facility] WBC corrected for nucl RBC Auto (Bld) [#/Vol] Leukocytes [#/volume] corrected for nucleated erythrocytes in Blood by Automated coun 3.8-11.6 [facility] Leukocytes [#/volume] in Blo od by Automated countOrdered By: PROVIDER TEMP on 05-04-2024 WBC (Bld) [#/Vol] 10.3 10*3/uL Normal 3.8-11.6 [facility] Comment on above: Performed By: #### B MP, HEPATIC, LIPASE, CBC ####[place] [address] [place] [id number] [facility] Lipase [Enzymatic activity/v olume] in Serum or PlasmaOrdered By: PROVIDER TEMP on 05-04-2024 Lipase [Catalytic activity/Vol] 34.0 U/L Normal 11.0-82.0 [facility] Comment on above: Result Comment: PERF ORMED BY: [facility] [address] [place] [address] PATHOLOGIST ELEVATOR DISPATCHER MATEO ROJAS M.D. Performed By: #### B MP, HEPATIC, LIPASE, CBC ####[place] [address] [place] [address] [facility] Lipase [Catalytic activity/Vol] Lipase [Enzymatic activity/volume] in Serum or Plasma 11.0-82.0 [facility] Lymphocytes Auto (Bld) [#/Vo l]Ordered By: PROVIDER TEMP on 05-04-2024 Lymphocytes (Bld) [#/Vol] Lymphocytes [#/volume] in Blood by Automated count 1.00-4.8 [facility] Lymphocytes [#/volume] in Bl ood by Automated countOrdered By: PROVIDER TEMP on 05-04-2024 Lymphocytes (Bld) [#/Vol] 2.9 10*3/uL Normal 1.00-4.8 [facility] Comment on above: Performed By: #### B MP, HEPATIC, LIPASE, CBC ####[place] [address] [place] [id number] [facility] Lymphocytes/100 WBC Auto (Bl d)Ordered By: PROVIDER TEMP on 05-04-2024 Lymphocytes/100 WBC (Bld) Lymphocytes/100 leukocytes in Blood by Automated count . [facility] Lymphocytes/100 leukocytes i n Blood by Automated countOrdered By: PROVIDER TEMP on 05-04-2024 Lymphocytes/100 WBC (Bld) 27.9 % Normal . [facility] Comment on above: Performed By: #### B MP, HEPATIC, LIPASE, CBC ####[facility] [id number] MCH Auto (RBC) [Entitic mass ]Ordered By: PROVIDER TEMP on 05-04-2024 MCH (RBC) [Entitic mass] MCH [Entitic mass] by Automated count 24.7-34.3 [facility] MCH [Entitic mass] by Automa cristian countOrdered By: PROVIDER TEMP on 05-04-2024 MCH (RBC) [Entitic mass] 29.0 pg Normal 24.7-34.3 [facility] Comment on above: Performed By: #### B MP, HEPATIC, LIPASE, CBC ####[address] MCHC Auto (RBC) [Mass/Vol]Or dered By: PROVIDER TEMP on 05-04-2024 MCHC (RBC) [Mass/Vol] 35.0 g/dL 32.0-35.0 [facility] MCHC (RBC) [Mass/Vol] MCHC [Mass/volume] by Automated count 32.0-35.0 [facility] MCV Auto (RBC) [Entitic vol] Ordered By: PROVIDER TEMP on 05-04-2024 MCV (RBC) [Entitic vol] MCV [Entitic volume] by Automated count 80-100 [facility] MCV [Entitic volume] by Auto mated countOrdered By: PROVIDER TEMP on 05-04-2024 MCV (RBC) [Entitic vol] 82.8 fL Normal 80-100 [facility] Comment on above: Performed By: #### B MP, HEPATIC, LIPASE, CBC ####[facility] [id number] Monocyte distribution width [Entitic volume] in Blood by AutomatedOrdered By: PROVIDER TEMP on 05-04-2024 Monocyte distribution width Auto (Bld) [Entitic vol] 18.41 % 0.00-20.00 [facility] Monocyte distribution width Auto (Bld) [Entitic vol] Monocyte distribution width [Entitic volume] in Blood by Automated 0.00-20.00 [facility] Monocytes Auto (Bld) [#/Vol] Ordered By: PROVIDER TEMP on 05-04-2024 Monocytes (Bld) [#/Vol] Automated blood monocyte count 0.0-0.8 [facility] Monocytes/100 WBC Auto (Bld) Ordered By: PROVIDER TEMP on 05-04-2024 Monocytes/100 WBC (Bld) Automated monocyte % . [facility] Neutrophils Auto (Bld) [#/Vo l]Ordered By: PROVIDER TEMP on 05-04-2024 Neutrophils (Bld) [#/Vol] Neutrophils [#/volume] in Blood by Automated count 1.8-7.7 [facility] Neutrophils [#/volume] in Bl ood by Automated countOrdered By: PROVIDER TEMP on 05-04-2024 Neutrophils (Bld) [#/Vol] 6.3 10*3/uL Normal 1.8-7.7 [facility] Comment on above: Performed By: #### B MP, HEPATIC, LIPASE, CBC ####[facility] [id number] Neutrophils/100 WBC Auto (Bl d)Ordered By: PROVIDER TEMP on 05-04-2024 Neutrophils/100 WBC (Bld) Automated neutrophil % . [facility] No Panel InformationOrdered By: PROVIDER TEMP on 05-04-2024 Estimated GFR (CKD-EPI) > 60.0 mL/Min [facility] Creatinine Clearance (Chem 149.80 [facility] Nucleated erythrocytes [Pres ence] in Blood by Automated countOrdered By: PROVIDER TEMP on 05-04-2024 Nucleated RBC Auto Ql (Bld) 0.0 /100{WBC} 0-0.5 [facility] Nucleated RBC Auto Ql (Bld) Nucleated erythrocytes [Presence] in Blood by Automated count 0-0.5 [facility] Platelet mean volume Auto (B ld) [Entitic vol]Ordered By: PROVIDER TEMP on 05-04-2024 Platelet mean volume (Bld) [Entitic vol] Platelet mean volume [Entitic volume] in Blood by Automated count 6.3-10.7 [facility] Platelet mean volume [Entiti c volume] in Blood by Automated countOrdered By: PROVIDER TEMP on 05-04-2024 Platelet mean volume (Bld) [Entitic vol] 7.1 fL Normal 6.3-10.7 [facility] Comment on above: Performed By: #### B MP, HEPATIC, LIPASE, CBC ####[place] [id number] [facility] Platelets Auto (Bld) [#/Vol] Ordered By: PROVIDER TEMP on 05-04-2024 Platelets (Bld) [#/Vol] Platelets [#/volume] in Blood by Automated count 150-450 [facility] Platelets [#/volume] in Bloo d by Automated countOrdered By: PROVIDER TEMP on 05-04-2024 Platelets (Bld) [#/Vol] 295 10*3/uL Normal 150-450 [facility] Comment on above: Performed By: #### B MP, HEPATIC, LIPASE, CBC ####[place] [id number] [facility] Potassium [Moles/volume] in Serum or PlasmaOrdered By: PROVIDER TEMP on 05-04-2024 Potassium [Moles/Vol] 3.8 mmol/L Normal 3.5-5.1 [facility] Comment on above: Performed By: #### B MP, HEPATIC, LIPASE, CBC ####[place] [id number] [facility] Potassium [Moles/Vol] Potassium [Moles/v olume] in Serum or Plasma 3.5-5.1 [facility] Protein [Mass/volume] in Ser um or PlasmaOrdered By: PROVIDER TEMP on 05-04-2024 Protein [Mass/Vol] 7.1 g/dL Normal 6.4-8.9 [facility] Comment on above: Performed By: #### B MP, HEPATIC, LIPASE, CBC ####[place] [id number] [facility] Protein [Mass/Vol] Protein [Mass/volume ] in Serum or Plasma 6.4-8.9 [facility] RBC Auto (Bld) [#/Vol]Ordere d By: PROVIDER TEMP on 05-04-2024 RBC (Bld) [#/Vol] Erythrocytes [#/volu me] in Blood by Automated count 3.60-5.00 [facility] Serum globulin measurement b y calculation (mass/volume)Ordered By: PROVIDER TEMP on 05-04-2024 Globulin (S) [Mass/Vol] 3.2 g/dL [facility] Comment on above: Performed By: #### B MP, HEPATIC, LIPASE, CBC ####[facility] [id number] Serum or plasma albumin/glob ulin mass ratioOrdered By: PROVIDER TEMP on 05-04-2024 Albumin/Globulin [Mass ratio] 1.2 {ratio} [facility] Comment on above: Performed By: #### B MP, HEPATIC, LIPASE, CBC ####[facility] [id number] Albumin/Globulin [Mass ratio] Serum or plasma albumin/globulin mass ratio [facility] Serum or plasma anion gap de terminationOrdered By: PROVIDER TEMP on 05-04-2024 Anion gap [Moles/Vol] 9.3 mmol/L Normal 6.0-15.0 [facility] Comment on above: Performed By: #### B MP, HEPATIC, LIPASE, CBC ####[facility] [id number] [place] [address] Anion gap [Moles/Vol] Serum or plasma an ion gap determination 6.0-15.0 [facility] Serum or plasma non-glucuron idated bilirubin measurement (mass/volume)Ordered By: PROVIDER TEMP on 05-04-2024 Bilirubin.indirect [Mass/Vol] 0.1 mg/dL [facility] Bilirubin.indirect [Mass/Vol] Serum or plasma non-glucuronidated bilirubin measurement (mass/volume) [facility] Sodium [Moles/volume] in Ser um or PlasmaOrdered By: PROVIDER TEMP on 05-04-2024 Sodium [Moles/Vol] 137 mmol/L Normal 136-145 [facility] Comment on above: Performed By: #### B MP, HEPATIC, LIPASE, CBC ####[facility] [id number] [place] [address] [facility] Sodium [Moles/Vol] Sodium [Moles/volume ] in Serum or Plasma 136-145 [facility] Urea nitrogen [Mass/volume] in Serum or PlasmaOrdered By: PROVIDER TEMP on 05-04-2024 Urea nitrogen [Mass/Vol] 14 mg/dL Normal 02-26 [facility] Comment on above: Performed By: #### B MP, HEPATIC, LIPASE, CBC ####[facility] [id number] [place] [address] [facility] Urea nitrogen [Mass/Vol] Urea nitrogen [Mass/volume] in Serum or Plasma 02-26 [facility] WBC Auto (Bld) [#/Vol]Ordere d By: PROVIDER TEMP on 05-04-2024 WBC (Bld) [#/Vol] Leukocytes [#/volume ] in Blood by Automated count 3.8-11.6 [facility] Alanine aminotransferase [En zymatic activity/volume] in Serum or PlasmaOrdered By: PROVIDER TEMP on 04-09-2024 ALT [Catalytic activity/Vol] 15 U/L [facility] ALT [Catalytic activity/Vol] Alanine aminotransferase [Enzymatic activity/volume] in Serum or Plasma [facility] Albumin [Mass/volume] in Ser um or Plasma by Bromocresol green (BCG) dye binding methoOrdered By: PROVIDER TEMP on 04-09-2024 Albumin BCG dye [Mass/Vol] 4.2 g/dL 3.5-5.7 [facility] Albumin BCG dye [Mass/Vol] Albumin [Mass/volume] in Serum or Plasma by Bromocresol green (BCG) dye binding metho 3.5-5.7 [facility] Alkaline phosphatase [Enzyma tic activity/volume] in Serum or PlasmaOrdered By: PROVIDER TEMP on 04-09-2024 ALP [Catalytic activity/Vol] 103 U/L [facility] ALP [Catalytic activity/Vol] Alkaline phosphatase [Enzymatic activity/volume] in Serum or Plasma [id number] [facility] Appearance of UrineOrdered B y: PROVIDER TEMP on 04-09-2024 Appearance (U) Urine appearance Clear [facility] Aspartate aminotransferase [ Enzymatic activity/volume] in Serum or PlasmaOrdered By: PROVIDER TEMP on 04-09-2024 AST [Catalytic activity/Vol] 18 U/L [facility] AST [Catalytic activity/Vol] Aspartate aminotransferase [Enzymatic activity/volume] in Serum or Plasma [facility] Basophils Auto (Bld) [#/Vol] Ordered By: PROVIDER TEMP on 04-09-2024 Basophils (Bld) [#/Vol] 0.0 10*3/uL 0.0-0.2 [facility] Basophils (Bld) [#/Vol] Automated basophil count 0.0-0.2 [facility] Basophils/100 WBC Auto (Bld) Ordered By: PROVIDER TEMP on 04-09-2024 Basophils/100 WBC (Bld) 0.4 % . [facility] Basophils/100 WBC (Bld) Automated basophil % . [facility] Bilirubin Test strip Ql (U)O rdered By: PROVIDER TEMP on 04-09-2024 Bilirubin Ql (U) Negative Negative [facility] Bilirubin Ql (U) Bilirubin.total [Presence] in Urine by Test strip Negative [facility] Bilirubin.total [Mass/volume ] in Serum or PlasmaOrdered By: PROVIDER TEMP on 04-09-2024 Bilirubin [Mass/Vol] 0.5 mg/dL 0.3-1.0 [facility] Bilirubin [Mass/Vol] Bilirubin.total [Mass/volume] in Serum or Plasma 0.3-1.0 [facility] Calcium [Mass/volume] in Ser um or PlasmaOrdered By: PROVIDER TEMP on 04-09-2024 Calcium [Mass/Vol] 9.1 mg/dL 8.6-10.3 [facility] Calcium [Mass/Vol] Calcium [Mass/volume ] in Serum or Plasma 8.6-10.3 [facility] Carbon dioxide, total [Moles /volume] in Serum or PlasmaOrdered By: PROVIDER TEMP on 04-09-2024 CO2 [Moles/Vol] 24.8 mmol/L 21.0-31.0 [facility] CO2 [Moles/Vol] Carbon dioxide, tota l [Moles/volume] in Serum or Plasma 21.0-31.0 [facility] Chloride [Moles/volume] in S claudia or PlasmaOrdered By: PROVIDER TEMP on 04-09-2024 Chloride [Moles/Vol] 104 mmol/L 98-107 [facility] Chloride [Moles/Vol] Chloride [Moles/vol ume] in Serum or Plasma 98-107 [facility] Color Auto (U)Ordered By: [place] OVIDER TEMP on 04-09-2024 Color (U) Light-yellow Yellow [facility] Color (U) Color of Urine by Auto Yellow [facility] Creatinine [Mass/volume] in Serum or PlasmaOrdered By: PROVIDER TEMP on 04-09-2024 Creatinine [Mass/Vol] 0.46 mg/dL Low 0.60-1.20 [facility] Creatinine [Mass/Vol] Creatinine [Mass/v olume] in Serum or Plasma Low 0.60-1.20 [facility] Eosinophils Auto (Bld) [#/Vo l]Ordered By: PROVIDER TEMP on 04-09-2024 Eosinophils (Bld) [#/Vol] 0.2 10*3/uL 0.0-0.45 [facility] Eosinophils (Bld) [#/Vol] Automated eosinophil count 0.0-0.45 [facility] Eosinophils/100 WBC Auto (Bl d)Ordered By: PROVIDER TEMP on 04-09-2024 Eosinophils/100 WBC (Bld) 2.2 % . [facility] Eosinophils/100 WBC (Bld) Automated eosinophil % . [facility] Erythrocyte distribution wid th Auto (RBC) [Ratio]Ordered By: PROVIDER TEMP on 04-09-2024 Erythrocyte distribution width (RBC) [Ratio] 13.4 % 11.9-15.3 [facility] Erythrocyte distribution width (RBC) [Ratio] Erythrocyte distribution width [Ratio] by Automated count 11.9-15.3 [facility] Globulin Calc (S) [Mass/Vol] Ordered By: PROVIDER TEMP on 04-09-2024 Globulin (S) [Mass/Vol] 3.5 g/dL [facility] Globulin (S) [Mass/Vol] Serum globulin measurement by calculation (mass/volume) [facility] Glucose [Mass/volume] in Ser um or PlasmaOrdered By: PROVIDER TEMEb on 04-09-2024 Glucose [Mass/Vol] 85 mg/dL 70-100 [facility] Comment on above: ADA recommended refe rence rangeRandom Glucose Reference Range is dependent on time and content of last meal. Glucose of more than 200 mg/dL in a nonstressed, ambulatory subject supports the diagnosis of Diabetes Mellitus. Glucose [Mass/Vol] Glucose [Mass/volume ] in Serum or Plasma 70-100 [facility] Comment on above: ADA recommended refe rence rangeRandom Glucose Reference Range is dependent on time and content of last meal. Glucose of more than 200 mg/dL in a nonstressed, ambulatory subject supports the diagnosis of Diabetes Mellitus. Glucose [Mass/volume] in Uri ne by Test stripOrdered By: PROVIDER FEMI on 04-09-2024 Glucose Test strip (U) [Mass/Vol] Normal mg/dL Normal [facility] Glucose Test strip (U) [Mass/Vol] Glucose [Mass/volume] in Urine by Test strip Normal [facility] Hematocrit Auto (Bld) [Volum e fraction]Ordered By: PROVIDER FEMI on 04-09-2024 Hematocrit (Bld) [Volume fraction] 38.1 % 34.0-46.4 [facility] Hematocrit (Bld) [Volume fraction] Hematocrit [Volume Fraction] of Blood by Automated count 34.0-46.4 [facility] Hemoglobin Test strip Ql (U) Ordered By: PROVIDER TEM on 04-09-2024 Hemoglobin Ql (U) Negative Negative [facility] Hemoglobin Ql (U) Hemoglobin [Presence ] in Urine by Test strip Negative [facility] Hemoglobin [Mass/volume] in BloodOrdered By: PROVIDER TEMEb on 04-09-2024 Hemoglobin (Bld) [Mass/Vol] 13.4 g/dL 11.8-15.4 [facility] Hemoglobin (Bld) [Mass/Vol] Hemoglobin [Mass/volume] in Blood 11.8-15.4 [facility] Ketones Test strip Ql (U)Ord ered By: PROVIDER TEMEb on 04-09-2024 Ketones Ql (U) Negative Negative [facility] Ketones Ql (U) Ketones [Presence] i n Urine by Test strip Negative [facility] Leukocyte esterase [Presence ] in Urine by Test stripOrdered By: PROVIDER TEMP on 04-09-2024 Leukocyte esterase Test strip Ql (U) Negative Negative [facility] Leukocyte esterase Test strip Ql (U) Leukocyte esterase [Presence] in Urine by Test strip Negative [facility] Leukocytes [#/volume] correc cristian for nucleated erythrocytes in Blood by Automated counOrdered By: PROVIDER TEMP on 04-09-2024 WBC corrected for nucl RBC Auto (Bld) [#/Vol] 10.0 10*3/uL 3.8-11.6 [facility] WBC corrected for nucl RBC Auto (Bld) [#/Vol] Leukocytes [#/volume] corrected for nucleated erythrocytes in Blood by Automated coun 3.8-11.6 [facility] Lymphocytes Auto (Bld) [#/Vo l]Ordered By: PROVIDER TEMP on 04-09-2024 Lymphocytes (Bld) [#/Vol] 2.7 10*3/uL 1.00-4.8 [facility] Lymphocytes (Bld) [#/Vol] Lymphocytes [#/volume] in Blood by Automated count 1.00-4.8 [facility] Lymphocytes/100 WBC Auto (Bl d)Ordered By: PROVIDER TEMP on 04-09-2024 Lymphocytes/100 WBC (Bld) 26.7 % . [facility] Lymphocytes/100 WBC (Bld) Lymphocytes/100 leukocytes in Blood by Automated count . [facility] MCH Auto (RBC) [Entitic mass ]Ordered By: PROVIDER TEMP on 04-09-2024 MCH (RBC) [Entitic mass] 28.9 pg 24.7-34.3 [facility] MCH (RBC) [Entitic mass] MCH [Entitic mass] by Automated count 24.7-34.3 [facility] MCHC Auto (RBC) [Mass/Vol]Or dered By: PROVIDER TEMP on 04-09-2024 MCHC (RBC) [Mass/Vol] 35.2 g/dL High 32.0-35.0 [facility] MCHC (RBC) [Mass/Vol] MCHC [Mass/volume] by Automated count High 32.0-35.0 [facility] MCV Auto (RBC) [Entitic vol] Ordered By: PROVIDER TEMP on 04-09-2024 MCV (RBC) [Entitic vol] 81.9 fL 80-100 [facility] MCV (RBC) [Entitic vol] MCV [Entitic volume] by Automated count 80-100 [facility] Monocyte distribution width [Entitic volume] in Blood by AutomatedOrdered By: PROVIDER TEMP on 04-09-2024 Monocyte distribution width Auto (Bld) [Entitic vol] 18.85 % 0.00-20.00 [facility] Monocyte distribution width Auto (Bld) [Entitic vol] Monocyte distribution width [Entitic volume] in Blood by Automated 0.00-20.00 [facility] Monocytes Auto (Bld) [#/Vol] Ordered By: PROVIDER TEMP on 04-09-2024 Monocytes (Bld) [#/Vol] 0.8 10*3/uL 0.0-0.8 [facility] Monocytes (Bld) [#/Vol] Automated blood monocyte count 0.0-0.8 [facility] Monocytes/100 WBC Auto (Bld) Ordered By: PROVIDER TEMP on 04-09-2024 Monocytes/100 WBC (Bld) 8.0 % . [facility] Monocytes/100 WBC (Bld) Automated monocyte % . [facility] Neutrophils Auto (Bld) [#/Vo l]Ordered By: PROVIDER TEMP on 04-09-2024 Neutrophils (Bld) [#/Vol] 6.3 10*3/uL 1.8-7.7 [facility] Neutrophils (Bld) [#/Vol] Neutrophils [#/volume] in Blood by Automated count 1.8-7.7 [facility] Neutrophils/100 WBC Auto (Bl d)Ordered By: PROVIDER TEMP on 04-09-2024 Neutrophils/100 WBC (Bld) 62.7 % . [facility] Neutrophils/100 WBC (Bld) Automated neutrophil % . [facility] Nitrite Test strip Ql (U)Ord ered By: PROVIDER TEMP on 04-09-2024 Nitrite Ql (U) Negative Negative [facility] Nitrite Ql (U) Nitrite [Presence] i n Urine by Test strip Negative [facility] No Panel InformationOrdered By: PROVIDER TEMP on 04-09-2024 Estimated GFR (CKD-EPI) > 60.0 mL/Min [facility] Creatinine Clearance (Chem 172.48 [facility] Nucleated erythrocytes [Pres ence] in Blood by Automated countOrdered By: PROVIDER TEMP on 04-09-2024 Nucleated RBC Auto Ql (Bld) 0.1 /100{WBC} 0-0.5 [facility] Nucleated RBC Auto Ql (Bld) Nucleated erythrocytes [Presence] in Blood by Automated count 0-0.5 [facility] Platelet mean volume Auto (B ld) [Entitic vol]Ordered By: PROVIDER TEMP on 04-09-2024 Platelet mean volume (Bld) [Entitic vol] 7.0 fL 6.3-10.7 [facility] Platelet mean volume (Bld) [Entitic vol] Platelet mean volume [Entitic volume] in Blood by Automated count 6.3-10.7 [facility] Platelets Auto (Bld) [#/Vol] Ordered By: PROVIDER TEMP on 04-09-2024 Platelets (Bld) [#/Vol] 291 10*3/uL 150-450 [facility] Platelets (Bld) [#/Vol] Platelets [#/volume] in Blood by Automated count 150-450 [facility] Potassium [Moles/volume] in Serum or PlasmaOrdered By: PROVIDER TEMP on 04-09-2024 Potassium [Moles/Vol] 3.6 mmol/L 3.5-5.1 [facility] Potassium [Moles/Vol] Potassium [Moles/v olume] in Serum or Plasma 3.5-5.1 [facility] Protein Test strip (U) [Mass /Vol]Ordered By: PROVIDER TEMP on 04-09-2024 Protein (U) [Mass/Vol] Negative Negative [facility] Protein (U) [Mass/Vol] Protein [Mass/vol ume] in Urine by Test strip Negative [facility] Protein [Mass/volume] in Ser um or PlasmaOrdered By: PROVIDER TEMP on 04-09-2024 Protein [Mass/Vol] 7.7 g/dL 6.4-8.9 [facility] Protein [Mass/Vol] Protein [Mass/volume ] in Serum or Plasma 6.4-8.9 [facility] RBC Auto (Bld) [#/Vol]Ordere d By: PROVIDER TEMP on 04-09-2024 RBC (Bld) [#/Vol] 4.66 10*6/uL 3.60-5.00 [facility] RBC (Bld) [#/Vol] Erythrocytes [#/volu me] in Blood by Automated count 3.60-5.00 [facility] Serum or plasma albumin/glob ulin mass ratioOrdered By: PROVIDER TEMP on 04-09-2024 Albumin/Globulin [Mass ratio] 1.2 {ratio} [facility] Albumin/Globulin [Mass ratio] Serum or plasma albumin/globulin mass ratio [facility] Serum or plasma anion gap de terminationOrdered By: PROVIDER TEMP on 04-09-2024 Anion gap [Moles/Vol] 12.8 mmol/L 6.0-15.0 [facility] Anion gap [Moles/Vol] Serum or plasma an ion gap determination 6.0-15.0 [facility] Sodium [Moles/volume] in Ser um or PlasmaOrdered By: PROVIDER TEMP on 04-09-2024 Sodium [Moles/Vol] 138 mmol/L 136-145 [facility] Sodium [Moles/Vol] Sodium [Moles/volume ] in Serum or Plasma 136-145 [facility] Specific gravity Test strip (U) [Rel density]Ordered By: PROVIDER TEMP on 04-09-2024 Specific gravity (U) [Rel density] 1.022 1.001-1.03 0 [facility] Specific gravity (U) [Rel density] Specific gravity of Urine by Test strip 1.001-1.03 0 [facility] Urea nitrogen [Mass/volume] in Serum or PlasmaOrdered By: PROVIDER TEMP on 04-09-2024 Urea nitrogen [Mass/Vol] 12 mg/dL 7-25 [facility] Urea nitrogen [Mass/Vol] Urea nitrogen [Mass/volume] in Serum or Plasma 7-25 [facility] Urine appearanceOrdered By: PROVIDER TEMP on 04-09-2024 Appearance (U) Clear Clear [facility] Urobilinogen Test strip (U) [Mass/Vol]Ordered By: PROVIDER TEMP on 04-09-2024 Urobilinogen (U) [Mass/Vol] Normal mg/dL Normal [facility] Urobilinogen (U) [Mass/Vol] Urobilinogen [Mass/volume] in Urine by Test strip Normal [facility] WBC Auto (Bld) [#/Vol]Ordere d By: PROVIDER TEMP on 04-09-2024 WBC (Bld) [#/Vol] 10.0 10*3/uL 3.8-11.6 [facility] WBC (Bld) [#/Vol] Leukocytes [#/volume ] in Blood by Automated count 3.8-11.6 [facility] pH Test strip (U)Ordered By: PROVIDER TEMP on 04-09-2024 pH (U) 7.5 [pH] 5.0-9.0 [facility] pH (U) pH of Urine by Test strip 5.0-9.0 [facility] Ferritin [Mass/volume] in Se rum or PlasmaOrdered By: Simone Rivera on 03-31-2024 Ferritin [Mass/Vol] 111.0 ng/mL 11.0-306.8 [facility] Ferritin [Mass/Vol] Ferritin [Mass/volum e] in Serum or Plasma 11.0-306.8 [facility] Iron [Mass/volume] in Serum or PlasmaOrdered By: Simone Rivera on 03-31-2024 Iron [Mass/Vol] 61 ug/dL 50-212 [facility] Iron [Mass/Vol] Iron [Mass/volume] i n Serum or Plasma 50-212 [facility] Iron binding capacity [Mass/ volume] in Serum or PlasmaOrdered By: Simone Rivera on 03-31-2024 Iron binding capacity [Mass/Vol] 295 ug/dL 255-450 [facility] Iron saturation [Mass Fracti on] in Serum or PlasmaOrdered By: Simone Rivera on 03-31-2024 Iron saturation [Mass fraction] 20.7 % 20-50 [facility] Serum or plasma iron binding capacity measurement (mass/volume)Ordered By: Simone Rivera on 03-31-2024 Iron binding capacity [Mass/Vol] Iron binding capacity [Mass/volume] in Serum or Plasma 255-450 [facility] Serum or plasma iron saturat ion measurement (mass fraction)Ordered By: Simone Rivera on 03-31-2024 Iron saturation [Mass fraction] Iron saturation [Mass Fraction] in Serum or Plasma 20-50 [facility] Transferrin [Mass/volume] in Serum or PlasmaOrdered By: Simone Rivera on 03-31-2024 Transferrin [Mass/Vol] 211 mg/dL 203-362 [facility] Transferrin [Mass/Vol] Transferrin [Mass /volume] in Serum or Plasma -362 [facility] Chlamydia trachomatis DNA [P resence] in Specimen by DEBBIE with probe detectionOrdered By: Augustine David on 01-14-2024 C. trachomatis DNA DEBBIE+probe Ql (Unsp spec) Negative Negative [facility] Neisseria gonorrhoeae DNA [P resence] in Specimen by DEBBIE with probe detectionOrdered By: Augustine David on 01-14-2024 N. gonorrhoeae DNA DEBBIE+probe Ql (Unsp spec) Negative Negative [facility] Trichomonas vaginalis DNA [P resence] in Specimen by DEBBIE with probe detectionOrdered By: Augustine David on 01-14-2024 T. vaginalis DNA DEBBIE+probe Ql (Unsp spec) Negative Negative [facility] Comment on above: Performed at: =[address] [id number] Director: Gabrielle Mack MD, Phone: [phone] Urine culture routineOrdered By: Augustine David on 01-14-2024 Bacteria identified Cx Nom (U) 2 Days [facility] UA DIP, URINE (POC)on 2023 BILIRUBIN UA (POCT) Negative Negative [facility] CL[facility]POCT[facility] Yellow [facility] GLUCOSE UA (POCT) Negative Negative mg/dL [facility] Hemoglobin Ql (U) Negative [facility] KETONE UA ([facility]CT) Negative Negative mg/dL [facility] LEUKOCYTES UA (POCT) Negative Negative [facility] NITRITE UA (POCT) Negative Negative [facility] PH UA (POCT) 7.0 4.5 - 8.0 [facility] Protein Ql (U) Negative Negative mg/dL [facility] SPECIFIC GRAVITY UA (POCT) 1.020 1.005 - 1.030 [facility] UROBILINOGEN UA (POCT) 0.2 Abena l E.U./dL [facility] Location:[facility], [address], [place], [place], [address] [facility] Alanine aminotransferase [En zymatic activity/volume] in Serum or PlasmaOrdered By: Brigida Corea on 11-14-2023 ALT [Catalytic activity/Vol] 10 U/L 7-52 [facility] Albumin [Mass/volume] in Ser um or Plasma by Bromocresol green (BCG) dye binding methoOrdered By: Brigida Corea on 11-14-2023 Albumin BCG dye [Mass/Vol] 3.9 g/dL 3.5-5.7 [facility] Alkaline phosphatase [Enzyma tic activity/volume] in Serum or PlasmaOrdered By: Brigida Corea on 11-14-2023 ALP [Catalytic activity/Vol] 87 U/L 34-104 [facility] Aspartate aminotransferase [ Enzymatic activity/volume] in Serum or PlasmaOrdered By: Brigida Corea on 11-14-2023 AST [Catalytic activity/Vol] 16 U/L 13-39 [facility] Basophils Auto (Bld) [#/Vol] Ordered By: Brigida Corea on 11-14-2023 Basophils (Bld) [#/Vol] 0.0 10*3/uL 0.0-0.2 [facility] Basophils/100 WBC Auto (Bld) Ordered By: Brigida Corea on 11-14-2023 Basophils/100 WBC (Bld) 0.5 % . [facility] Bilirubin.total [Mass/volume ] in Serum or PlasmaOrdered By: Brigida Corea on 11-14-2023 Bilirubin [Mass/Vol] 0.3 mg/dL 0.3-1.0 [facility] Calcium [Mass/volume] in Ser um or PlasmaOrdered By: Brigida Corea on 11-14-2023 Calcium [Mass/Vol] 8.9 mg/dL 8.6-10.3 [facility] Carbon dioxide, total [Moles /volume] in Serum or PlasmaOrdered By: Brigida Corea on 11-14-2023 CO2 [Moles/Vol] 29.0 mmol/L 21.0-31.0 [facility] Chloride [Moles/volume] in S claudia or PlasmaOrdered By: Brigida Corea on 11-14-2023 Chloride [Moles/Vol] 105 mmol/L 98-107 [facility] Cholesterol [Mass/volume] in Serum or PlasmaOrdered By: Brigida Corea on 11-14-2023 Cholesterol [Mass/Vol] 158 mg/dL 140-200 [facility] Comment on above: Chol less than 200 m g/dl low riskChol 201-239 mg/dl borderline riskChol 240 mg/dl and greater high risk Cholesterol in LDL Calc [Mas s/Vol]Ordered By: Brigida Corea on 11-14-2023 Cholesterol in LDL [Mass/Vol] 77 mg/dL 0-100 [facility] Comment on above: LDL ATP III CLASSIFI CATIONLDL less than 100 mg/dL OptimalLDL 100-129 mg/dL Near or above optimalLDL 130-159 mg/dL Borderline highLDL 160-189 mg/dL HighLDL greater than 189 mg/dL Very high Cholesterol in VLDL Calc [Ma ss/Vol]Ordered By: Brigida Corea on 11-14-2023 Cholesterol in VLDL [Mass/Vol] 28 mg/dL [facility] Creatinine [Mass/volume] in Serum or PlasmaOrdered By: Brigida Corea on 11-14-2023 Creatinine [Mass/Vol] 0.59 mg/dL 0.60-1.20 [facility] Eosinophils Auto (Bld) [#/Vo l]Ordered By: Brigida Corea on 11-14-2023 Eosinophils (Bld) [#/Vol] 0.3 10*3/uL 0.0-0.45 [facility] Eosinophils/100 WBC Auto (Bl d)Ordered By: Brigida Corea on 11-14-2023 Eosinophils/100 WBC (Bld) 2.8 % . [facility] Erythrocyte distribution wid th Auto (RBC) [Ratio]Ordered By: Brigida Corea on 11-14-2023 Erythrocyte distribution width (RBC) [Ratio] 13.3 % 11.9-15.3 [facility] Globulin Calc (S) [Mass/Vol] Ordered By: Brigida Corea on 11-14-2023 Globulin (S) [Mass/Vol] 2.9 g/dL [facility] Glucose [Mass/volume] in Ser um or PlasmaOrdered By: Brigida Corea on 11-14-2023 Glucose [Mass/Vol] 123 mg/dL 70-100 [facility] Comment on above: ADA recommended refe rence rangeRandom Glucose Reference Range is dependent on time and content of last meal. Glucose of more than 200 mg/dL in a nonstressed, ambulatory subject supports the diagnosis of Diabetes Mellitus. Hematocrit Auto (Bld) [Volum e fraction]Ordered By: Brigida Corea on 11-14-2023 Hematocrit (Bld) [Volume fraction] 35.5 % 34.0-46.4 [facility] Hemoglobin [Mass/volume] in BloodOrdered By: Brigida Corea on 11-14-2023 Hemoglobin (Bld) [Mass/Vol] 12.1 g/dL 11.8-15.4 [facility] Hepatitis C virus IgG Ab [Pr esence] in Serum or Plasma by ImmunoassayOrdered By: Brigida Corea on 11-14-2023 HCV IgG IA Ql Non-Reactive Non Reactive [facility] Leukocytes [#/volume] correc cristian for nucleated erythrocytes in Blood by Automated counOrdered By: Brigida Corea on 11-14-2023 WBC corrected for nucl RBC Auto (Bld) [#/Vol] 9.5 10*3/uL 3.8-11.6 [facility] Lymphocytes Auto (Bld) [#/Vo l]Ordered By: Brigida Corea on 11-14-2023 Lymphocytes (Bld) [#/Vol] 2.5 10*3/uL 1.00-4.8 [facility] Lymphocytes/100 WBC Auto (Bl d)Ordered By: Brigida Corea on 11-14-2023 Lymphocytes/100 WBC (Bld) 26.4 % . [facility] MCH Auto (RBC) [Entitic mass ]Ordered By: Brigida Corea on 11-14-2023 MCH (RBC) [Entitic mass] 28.1 pg 24.7-34.3 [facility] MCHC Auto (RBC) [Mass/Vol]Or dered By: Brigida Corea on 11-14-2023 MCHC (RBC) [Mass/Vol] 34.2 g/dL 32.0-35.0 [facility] MCV Auto (RBC) [Entitic vol] Ordered By: Brigida Corea on 11-14-2023 MCV (RBC) [Entitic vol] 82.3 fL 80-100 [facility] Monocytes Auto (Bld) [#/Vol] Ordered By: Brigida Corea on 11-14-2023 Monocytes (Bld) [#/Vol] 0.7 10*3/uL 0.0-0.8 [facility] Monocytes/100 WBC Auto (Bld) Ordered By: Brigida Corea on 11-14-2023 Monocytes/100 WBC (Bld) 7.0 % . [facility] Neutrophils Auto (Bld) [#/Vo l]Ordered By: Brigida Corea on 11-14-2023 Neutrophils (Bld) [#/Vol] 6.0 10*3/uL 1.8-7.7 [facility] Neutrophils/100 WBC Auto (Bl d)Ordered By: Brigida Corea on 11-14-2023 Neutrophils/100 WBC (Bld) 63.3 % . [facility] No Panel InformationOrdered By: Brigida Corea on 11-14-2023 Estimated GFR (CKD-EPI) > 60.0 mL/Min [facility] Hepatitis C Interpretation See comment . [facility] Comment on above: Not infected with HC V unless early or acute infection issuspected (which may be delayed in an immunocompromisedindividual), or other evidence exists to indicate HCVinfection.Performed at: [facility] [id number] Director: Alireza Kaufman PhD, Phone: [phone] Pharmacy Creatinine Clearance (Chem N/A [facility] Nucleated erythrocytes [Pres ence] in Blood by Automated countOrdered By: Brigida Corea on 11-14-2023 Nucleated RBC Auto Ql (Bld) 0.1 /100{WBC} 0-0.5 [facility] Platelet mean volume Auto (B ld) [Entitic vol]Ordered By: Brigida Corea on 11-14-2023 Platelet mean volume (Bld) [Entitic vol] 7.8 fL 6.3-10.7 [facility] Platelets Auto (Bld) [#/Vol] Ordered By: Brigida Corea on 11-14-2023 Platelets (Bld) [#/Vol] 267 10*3/uL 150-450 [facility] Potassium [Moles/volume] in Serum or PlasmaOrdered By: Brigida Corea on 11-14-2023 Potassium [Moles/Vol] 4.3 mmol/L 3.5-5.1 [facility] Protein [Mass/volume] in Ser um or PlasmaOrdered By: Brigida Corea on 11-14-2023 Protein [Mass/Vol] 6.8 g/dL 6.4-8.9 [facility] RBC Auto (Bld) [#/Vol]Ordere d By: Brigida Corea on 11-14-2023 RBC (Bld) [#/Vol] 4.31 10*6/uL 3.60-5.00 [facility] Serum or plasma albumin/glob ulin mass ratioOrdered By: Brigida Corea on 11-14-2023 Albumin/Globulin [Mass ratio] 1.3 {ratio} [facility] Serum or plasma anion gap de terminationOrdered By: Brigida Corea on 11-14-2023 Anion gap [Moles/Vol] 7.3 mmol/L 6.0-15.0 [facility] Serum or plasma high density lipoprotein (HDL) cholesterol measurementOrdered By: Brigida Corea on 11-14-2023 Cholesterol in HDL [Mass/Vol] 52 mg/dL 23-92 [facility] Comment on above: HDL CHOL ATP-III CLA SSIFICATION Cardiovascular RiskHDL > or equal to 60 mg/dL LOWHDL < 40 mg/dL HIGH Serum or plasma total choles terol/high density lipoprotein (HDL) cholesterol mass ratOrdered By: Brigida Corea on 11-14-2023 Cholesterol.total/Chol esterol in HDL [Mass ratio] 3.0 {ratio} <5.0 [facility] Sodium [Moles/volume] in Ser um or PlasmaOrdered By: Brigida Corea on 11-14-2023 Sodium [Moles/Vol] 137 mmol/L 136-145 [facility] Thyrotropin [Units/volume] i n Serum or PlasmaOrdered By: Brigida Corea on 11-14-2023 TSH Qn 1.11 m[IU]/L 0.45-5.33 [facility] Triglyceride [Mass/volume] i n Serum or PlasmaOrdered By: Brigida Corea on 11-14-2023 Triglyceride [Mass/Vol] 144 mg/dL 0-149 [facility] Comment on above: TRIG ATP III CLASSIF ICATIONTRIG less than 150 mg/dL NormalTRIG 150-199 mg/dL Borderline highTRIG 200-500 mg/dL High TRIG greater than 500 mg/dL Very highStandard traceable to the Center for Disease Conrtrol and Prevention (CDC) test method. Urea nitrogen [Mass/volume] in Serum or PlasmaOrdered By: Brigida Corea on 11-14-2023 Urea nitrogen [Mass/Vol] 16 mg/dL 7-25 [facility] WBC Auto (Bld) [#/Vol]Ordere d By: Brigida Corea on 11-14-2023 WBC (Bld) [#/Vol] 9.5 10*3/uL 3.8-11.6 [facility] Follow-Upon 10-23-2023 Follow-Up [id number] Tim Mendez 1975 F Date Provider Department Center 10/23/2023 ISAI SALINAS [facility] MP[facility]THO Family History Problem Relation Age of Onset Cancer Mother Diabetes Father Cancer Maternal Grandmother Cancer Mother's Brother Cancer Mother's Sister Family Status - Relation Status Age at Mother Father Maternal Grandmother Mother's Brother Mother's Sister Level of Service:[id number] [place] OFFICE/OUTPATIENT ESTABLISHED SF MDM 10 MIN () Reason for Visit and Comments: Follow-up [776573] Normal [facility] XR Lumbar spine Views W flex ion and W extensionon 10-15-2023 IMPRESSION: No acute osseous abnormality. Mild lower lumbar facet arthropathy 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: FELICIA Transcribe Date/Time: Oct 15 2023 1:50P Dictated by : JEFFERSON SEAMAN MD This examination was interpreted and the report reviewed and electronically signed by: JEFFERSON SEAMAN MD on Oct 15 2023 1:51PM [facility] DIVISION OF RADIOLOGY * * *Final Report* * * DATE [...] arthropathy. No instability with flexion and extension. DIVISION OF RADIOLOGY Provider, [facility] - 10/15/2023 * * *Final Report* * * DATE [...] arthropathy. No instability with flexion and extension. IMPRESSION IMPRESSION: No acute osseous abnormality. Mild lower lumbar facet arthropathy 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 Transcribe Date/Time: Oct 15 2023 1:50P Dictated by : JEFFERSON SEAMAN MD This examination was interpreted and the report reviewed and electronically signed by: JEFFERSON SEAMAN MD on Oct 15 2023 1:51PM EST [facility] Radiology Study observation (narrative) [facility] XR Lumbar spine Views W flex ion and W extensionOrdered By: [facility] Provider on 10-15-2023 [facility] COVID CepheidOrdered By: John carlokaylyn Newell on 10-06-2023 SARS-CoV-2 (COVID-19) Ab IA Ql Negative Negative [facility] Comment on above: This is a duplicate [employer] X[employer] Xpress CoV-2/Flu/RSV Plus RNA by RT-PCR result to be used for statistical tracking purpose only. SARS-CoV-2 (COVID-19) RNA DEBBIE+probe Ql (Unsp spec) [facility] CT TEMP BONES WO IVCONon [facility] Alanine aminotransferase [En zymatic activity/volume] in Serum or PlasmaOrdered By: Brigida Corea on 08-12-2023 ALT [Catalytic activity/Vol] 12 U/L 7-52 [facility] Albumin [Mass/volume] in Ser um or Plasma by Bromocresol green (BCG) dye binding methoOrdered By: Brigida Corea on 08-12-2023 Albumin BCG dye [Mass/Vol] 4.2 g/dL 3.5-5.7 [facility] Alkaline phosphatase [Enzyma tic activity/volume] in Serum or PlasmaOrdered By: Brigida Corea on 08-12-2023 ALP [Catalytic activity/Vol] 107 U/L 34-104 [facility] Aspartate aminotransferase [ Enzymatic activity/volume] in Serum or PlasmaOrdered By: Brigida Corea on 08-12-2023 AST [Catalytic activity/Vol] 14 U/L 13-39 [facility] Basophils Auto (Bld) [#/Vol] Ordered By: Brigida Corea on 08-12-2023 Basophils (Bld) [#/Vol] 0.1 10*3/uL 0.0-0.2 [facility] Basophils/100 WBC Auto (Bld) Ordered By: Brigida Corea on 08-12-2023 Basophils/100 WBC (Bld) 0.7 % . [facility] Bilirubin.total [Mass/volume ] in Serum or PlasmaOrdered By: Brigida Corea on 08-12-2023 Bilirubin [Mass/Vol] 0.3 mg/dL 0.3-1.0 [facility] Calcium [Mass/volume] in Ser um or PlasmaOrdered By: Brigida Corea on 08-12-2023 Calcium [Mass/Vol] 9.5 mg/dL 8.6-10.3 [facility] Carbon dioxide, total [Moles /volume] in Serum or PlasmaOrdered By: Brigida Corea on 08-12-2023 CO2 [Moles/Vol] 30.3 mmol/L 21.0-31.0 [facility] Chloride [Moles/volume] in S claudia or PlasmaOrdered By: Brigida Corea on 08-12-2023 Chloride [Moles/Vol] 102 mmol/L 98-107 [facility] Cholesterol [Mass/volume] in Serum or PlasmaOrdered By: Brigida Corea on 08-12-2023 Cholesterol [Mass/Vol] 196 mg/dL 140-200 [facility] Comment on above: Chol less than 200 m g/dl low riskChol 201-239 mg/dl borderline riskChol 240 mg/dl and greater high risk Cholesterol in LDL Calc [Mas s/Vol]Ordered By: Brigida Corea on 08-12-2023 Cholesterol in LDL [Mass/Vol] 107 mg/dL 0-100 [facility] Comment on above: LDL ATP III CLASSIFI CATIONLDL less than 100 mg/dL OptimalLDL 100-129 mg/dL Near or above optimalLDL 130-159 mg/dL Borderline highLDL 160-189 mg/dL HighLDL greater than 189 mg/dL Very high Cholesterol in VLDL Calc [Ma ss/Vol]Ordered By: Brigida Corea on 08-12-2023 Cholesterol in VLDL [Mass/Vol] 37 mg/dL [facility] Creatinine [Mass/volume] in Serum or PlasmaOrdered By: Brigida Corea on 08-12-2023 Creatinine [Mass/Vol] 0.60 mg/dL 0.60-1.20 [facility] Eosinophils Auto (Bld) [#/Vo l]Ordered By: Brigida Corea on 08-12-2023 Eosinophils (Bld) [#/Vol] 0.3 10*3/uL 0.0-0.45 [facility] Eosinophils/100 WBC Auto (Bl d)Ordered By: Brigida Corea on 08-12-2023 Eosinophils/100 WBC (Bld) 3.1 % . [facility] Erythrocyte distribution wid th Auto (RBC) [Ratio]Ordered By: Brigida Corea on 08-12-2023 Erythrocyte distribution width (RBC) [Ratio] 12.7 % 11.9-15.3 [facility] Folate [Mass/volume] in Seru m or PlasmaOrdered By: Brigida Corea on 08-12-2023 Folate [Mass/Vol] 9.0 ng/mL >5.9 [facility] Comment on above: Folate reference ran ge: >5.9 ng/mlThe WHO technical consultation on folate and vitamin [id number] has determined that folate concentrations lessthan 4 ng/ml are considered deficient. Globulin Calc (S) [Mass/Vol] Ordered By: Brigida Corea on 08-12-2023 Globulin (S) [Mass/Vol] 3.0 g/dL [facility] Glucose [Mass/volume] in Ser um or PlasmaOrdered By: Brigida Corea on 08-12-2023 Glucose [Mass/Vol] 85 mg/dL 70-100 [facility] Comment on above: ADA recommended refe rence rangeRandom Glucose Reference Range is dependent on time and content of last meal. Glucose of more than 200 mg/dL in a nonstressed, ambulatory subject supports the diagnosis of Diabetes Mellitus. Hematocrit Auto (Bld) [Volum e fraction]Ordered By: Brigida Corea on 08-12-2023 Hematocrit (Bld) [Volume fraction] 36.1 % 34.0-46.4 [facility] Hemoglobin [Mass/volume] in BloodOrdered By: Brigida Corea on 08-12-2023 Hemoglobin (Bld) [Mass/Vol] 12.5 g/dL 11.8-15.4 [facility] Leukocytes [#/volume] correc cristian for nucleated erythrocytes in Blood by Automated counOrdered By: Brigida Corea on 08-12-2023 WBC corrected for nucl RBC Auto (Bld) [#/Vol] 9.0 10*3/uL 3.8-11.6 [facility] Lymphocytes Auto (Bld) [#/Vo l]Ordered By: Brigida Corea on 08-12-2023 Lymphocytes (Bld) [#/Vol] 2.2 10*3/uL 1.00-4.8 [facility] Lymphocytes/100 WBC Auto (Bl d)Ordered By: Brigida Corea on 08-12-2023 Lymphocytes/100 WBC (Bld) 24.1 % . [facility] MCH Auto (RBC) [Entitic mass ]Ordered By: Brigida Corea on 08-12-2023 MCH (RBC) [Entitic mass] 29.1 pg 24.7-34.3 [facility] MCHC Auto (RBC) [Mass/Vol]Or dered By: Brigida Corea on 08-12-2023 MCHC (RBC) [Mass/Vol] 34.7 g/dL 32.0-35.0 [facility] MCV Auto (RBC) [Entitic vol] Ordered By: Brigida Corea on 08-12-2023 MCV (RBC) [Entitic vol] 83.7 fL 80-100 [facility] Monocytes Auto (Bld) [#/Vol] Ordered By: Brigida Corea on 08-12-2023 Monocytes (Bld) [#/Vol] 0.7 10*3/uL 0.0-0.8 [facility] Monocytes/100 WBC Auto (Bld) Ordered By: Brigida Corea on 08-12-2023 Monocytes/100 WBC (Bld) 7.8 % . [facility] Neutrophils Auto (Bld) [#/Vo l]Ordered By: Brigida Corea on 08-12-2023 Neutrophils (Bld) [#/Vol] 5.8 10*3/uL 1.8-7.7 [facility] Neutrophils/100 WBC Auto (Bl d)Ordered By: Brigida Corea on 08-12-2023 Neutrophils/100 WBC (Bld) 64.3 % . [facility] No Panel InformationOrdered By: Brigida Corea on 08-12-2023 Estimated GFR (CKD-EPI) > 60.0 mL/Min [facility] Pharmacy Creatinine Clearance (Chem N/A [facility] Nucleated erythrocytes [Pres ence] in Blood by Automated countOrdered By: Brigida Corea on 08-12-2023 Nucleated RBC Auto Ql (Bld) 0.1 /100{WBC} 0-0.5 [facility] Platelet mean volume Auto (B ld) [Entitic vol]Ordered By: Brigida Corea on 08-12-2023 Platelet mean volume (Bld) [Entitic vol] 7.3 fL 6.3-10.7 [facility] Platelets Auto (Bld) [#/Vol] Ordered By: Brigida Corea on 08-12-2023 Platelets (Bld) [#/Vol] 324 10*3/uL 150-450 [facility] Potassium [Moles/volume] in Serum or PlasmaOrdered By: Brigida Corea on 08-12-2023 Potassium [Moles/Vol] 4.1 mmol/L 3.5-5.1 [facility] Protein [Mass/volume] in Ser um or PlasmaOrdered By: Brigida Corea on 08-12-2023 Protein [Mass/Vol] 7.2 g/dL 6.4-8.9 [facility] RBC Auto (Bld) [#/Vol]Ordere d By: Brigida Corea on 08-12-2023 RBC (Bld) [#/Vol] 4.32 10*6/uL 3.60-5.00 [facility] Serum or plasma albumin/glob ulin mass ratioOrdered By: Brigida Corea on 08-12-2023 Albumin/Globulin [Mass ratio] 1.4 {ratio} [facility] Serum or plasma anion gap de terminationOrdered By: Brigida Corea on 08-12-2023 Anion gap [Moles/Vol] 9.8 mmol/L 6.0-15.0 [facility] Serum or plasma high density lipoprotein (HDL) cholesterol measurementOrdered By: Brigida Corea on 08-12-2023 Cholesterol in HDL [Mass/Vol] 52 mg/dL 23-92 [facility] Comment on above: HDL CHOL ATP-III CLA SSIFICATION Cardiovascular RiskHDL > or equal to 60 mg/dL LOWHDL < 40 mg/dL HIGH Serum or plasma total choles terol/high density lipoprotein (HDL) cholesterol mass ratOrdered By: Brigida Corea on 08-12-2023 Cholesterol.total/Chol esterol in HDL [Mass ratio] 3.8 {ratio} <5.0 [facility] Sodium [Moles/volume] in Ser um or PlasmaOrdered By: Brigida Corea on 08-12-2023 Sodium [Moles/Vol] 138 mmol/L 136-145 [facility] Thyrotropin [Units/volume] i n Serum or PlasmaOrdered By: Brigida Corea on 08-12-2023 TSH Qn 0.89 m[IU]/L 0.45-5.33 [facility] Triglyceride [Mass/volume] i n Serum or PlasmaOrdered By: Brigida Corea on 08-12-2023 Triglyceride [Mass/Vol] 185 mg/dL 0-149 [facility] Comment on above: TRIG ATP III CLASSIF ICATIONTRIG less than 150 mg/dL NormalTRIG 150-199 mg/dL Borderline highTRIG 200-500 mg/dL High TRIG greater than 500 mg/dL Very highStandard traceable to the Center for Disease Conrtrol and Prevention (CDC) test method. Urea nitrogen [Mass/volume] in Serum or PlasmaOrdered By: Brigida Corea on 08-12-2023 Urea nitrogen [Mass/Vol] 22 mg/dL 7 [facility] Vitamin B12 ser/plasOrdered By: Brigida Corea on 08-12-2023 Cobalamin (Vitamin B12) [Mass/Vol] 1112 pg/mL 180-914 [facility] Vitamin D+Metabolites [Mass/ volume] in Serum or PlasmaOrdered By: Brigida Corea on 08-12-2023 Vitamin D+Metabolites [Mass/Vol] 13.2 ng/mL 30-100 [facility] Comment on above: VITAMIN D STATUS 25( [place])VITAMIN D RANGE (ng/mL) Deficient <20 Insufficient 20 to <30Sufficient 30 to 100Reference: Carleen MF,Janet FLORES, Elissa ALBA, et al. Evaluation,treatment, and prevention of vitamin D deficiency; an Endocrine Society clinical practice guideline. JCEM. 2010; 96(7):1911-30. WBC Auto (Bld) [#/Vol]Ordere d By: Brigida Corea on 08-12-2023 WBC (Bld) [#/Vol] 9.0 10*3/uL 3.8-11.6 [facility] Alanine aminotransferase [En zymatic activity/volume] in Serum or PlasmaOrdered By: Simone Stovall on 08-08-2023 ALT [Catalytic activity/Vol] 20 U/L 7-52 [facility] Albumin [Mass/volume] in Ser um or Plasma by Bromocresol green (BCG) dye binding methoOrdered By: Simone Stovall on 08-08-2023 Albumin BCG dye [Mass/Vol] 4.0 g/dL 3.5-5.7 [facility] Alkaline phosphatase [Enzyma tic activity/volume] in Serum or PlasmaOrdered By: Simone Stovall on 08-08-2023 ALP [Catalytic activity/Vol] 92 U/L 34-104 [facility] Aspartate aminotransferase [ Enzymatic activity/volume] in Serum or PlasmaOrdered By: Simone Stovall on 08-08-2023 AST [Catalytic activity/Vol] 17 U/L 13-39 [facility] Basophils Auto (Bld) [#/Vol] Ordered By: Simone Stovall on 08-08-2023 Basophils (Bld) [#/Vol] 0.1 10*3/uL 0.0-0.2 [facility] Basophils/100 WBC Auto (Bld) Ordered By: Simone Stovall on 08-08-2023 Basophils/100 WBC (Bld) 0.4 % . [facility] Bilirubin.direct [Mass/volum e] in Serum or PlasmaOrdered By: Simone Stovall on 08-08-2023 Bilirubin.direct [Mass/Vol] 0.10 mg/dL 0.03-0.18 [facility] Bilirubin.total [Mass/volume ] in Serum or PlasmaOrdered By: Simone Stovall on 08-08-2023 Bilirubin [Mass/Vol] 0.6 mg/dL 0.3-1.0 [facility] Calcium [Mass/volume] in Ser um or PlasmaOrdered By: Simone Stovall on 08-08-2023 Calcium [Mass/Vol] 9.0 mg/dL 8.6-10.3 [facility] Carbon dioxide, total [Moles /volume] in Serum or PlasmaOrdered By: Simone Stovall on 08-08-2023 CO2 [Moles/Vol] 26.8 mmol/L 21.0-31.0 [facility] Chloride [Moles/volume] in S claudia or PlasmaOrdered By: Simone Stovall on 08-08-2023 Chloride [Moles/Vol] 100 mmol/L 98-107 [facility] Creatinine [Mass/volume] in Serum or PlasmaOrdered By: Simone Stovall on 08-08-2023 Creatinine [Mass/Vol] 0.56 mg/dL 0.60-1.20 [facility] Eosinophils Auto (Bld) [#/Vo l]Ordered By: Simone Stovall on 08-08-2023 Eosinophils (Bld) [#/Vol] 0.2 10*3/uL 0.0-0.45 [facility] Eosinophils/100 WBC Auto (Bl d)Ordered By: Simone Stovall on 08-08-2023 Eosinophils/100 WBC (Bld) 2.0 % . [facility] Erythrocyte distribution wid th Auto (RBC) [Ratio]Ordered By: Simone Stovall on 08-08-2023 Erythrocyte distribution width (RBC) [Ratio] 12.6 % 11.9-15.3 [facility] Globulin Calc (S) [Mass/Vol] Ordered By: Simone Stovall on 08-08-2023 Globulin (S) [Mass/Vol] 3.0 g/dL [facility] Glucose [Mass/volume] in Ser um or PlasmaOrdered By: Simone Stovall on 08-08-2023 Glucose [Mass/Vol] 109 mg/dL 70-100 [facility] Comment on above: ADA recommended refe rence rangeRandom Glucose Reference Range is dependent on time and content of last meal. Glucose of more than 200 mg/dL in a nonstressed, ambulatory subject supports the diagnosis of Diabetes Mellitus. Hematocrit Auto (Bld) [Volum e fraction]Ordered By: Simone Stovall on 08-08-2023 Hematocrit (Bld) [Volume fraction] 34.7 % 34.0-46.4 [facility] Hemoglobin [Mass/volume] in BloodOrdered By: Simone Stovall on 08-08-2023 Hemoglobin (Bld) [Mass/Vol] 12.1 g/dL 11.8-15.4 [facility] Leukocytes [#/volume] correc cristian for nucleated erythrocytes in Blood by Automated counOrdered By: Simone Stovall on 08-08-2023 WBC corrected for nucl RBC Auto (Bld) [#/Vol] 12.1 10*3/uL 3.8-11.6 [facility] Lipase [Enzymatic activity/v olume] in Serum or PlasmaOrdered By: Simone Stovall on 08-08-2023 Lipase [Catalytic activity/Vol] 20.0 U/L 11.0-82.0 [facility] Lymphocytes Auto (Bld) [#/Vo l]Ordered By: Simone Stovall on 08-08-2023 Lymphocytes (Bld) [#/Vol] 2.4 10*3/uL 1.00-4.8 [facility] Lymphocytes/100 WBC Auto (Bl d)Ordered By: Simone Stovall on 08-08-2023 Lymphocytes/100 WBC (Bld) 19.6 % . [facility] MCH Auto (RBC) [Entitic mass ]Ordered By: Simone Stovall on 08-08-2023 MCH (RBC) [Entitic mass] 28.9 pg 24.7-34.3 [facility] MCHC Auto (RBC) [Mass/Vol]Or dered By: Simone Stovall on 08-08-2023 MCHC (RBC) [Mass/Vol] 35.0 g/dL 32.0-35.0 [facility] MCV Auto (RBC) [Entitic vol] Ordered By: Simone Stovall on 08-08-2023 MCV (RBC) [Entitic vol] 82.6 fL 80-100 [facility] Monocyte distribution width [Entitic volume] in Blood by AutomatedOrdered By: Simone Stovall on 08-08-2023 Monocyte distribution width Auto (Bld) [Entitic vol] 24.09 % 0.00-20.00 [facility] Comment on above: For adults in ED, MD W > 20.0 may be associated with a higher risk of sepsis during the first 12 hrs of hospital admission Monocytes Auto (Bld) [#/Vol] Ordered By: Simone Stovall on 08-08-2023 Monocytes (Bld) [#/Vol] 0.9 10*3/uL 0.0-0.8 [facility] Monocytes/100 WBC Auto (Bld) Ordered By: Simone Stovall on 08-08-2023 Monocytes/100 WBC (Bld) 7.7 % . [facility] Neutrophils Auto (Bld) [#/Vo l]Ordered By: Simone Stovall on 08-08-2023 Neutrophils (Bld) [#/Vol] 8.5 10*3/uL 1.8-7.7 [facility] Neutrophils/100 WBC Auto (Bl d)Ordered By: Simone Stovall on 08-08-2023 Neutrophils/100 WBC (Bld) 70.3 % . [facility] No Panel InformationOrdered By: Simone Stovall on 08-08-2023 Estimated GFR (CKD-EPI) > 60.0 mL/Min [facility] Creatinine Clearance (Chem 139.90 [facility] Nucleated erythrocytes [Pres ence] in Blood by Automated countOrdered By: Simone Stovall on 08-08-2023 Nucleated RBC Auto Ql (Bld) 0.0 /100{WBC} 0-0.5 [facility] Platelet mean volume Auto (B ld) [Entitic vol]Ordered By: Simone Stovall on 08-08-2023 Platelet mean volume (Bld) [Entitic vol] 7.6 fL 6.3-10.7 [facility] Platelets Auto (Bld) [#/Vol] Ordered By: Simone Stovall on 08-08-2023 Platelets (Bld) [#/Vol] 267 10*3/uL 150-450 [facility] Potassium [Moles/volume] in Serum or PlasmaOrdered By: Simone Stovall on 08-08-2023 Potassium [Moles/Vol] 3.3 mmol/L 3.5-5.1 [facility] Protein [Mass/volume] in Ser um or PlasmaOrdered By: Simone Stovall on 08-08-2023 Protein [Mass/Vol] 7.0 g/dL 6.4-8.9 [facility] RBC Auto (Bld) [#/Vol]Ordere d By: Simone Stovall on 08-08-2023 RBC (Bld) [#/Vol] 4.20 10*6/uL 3.60-5.00 [facility] Serum or plasma albumin/glob ulin mass ratioOrdered By: Simone Stovall on 08-08-2023 Albumin/Globulin [Mass ratio] 1.3 {ratio} [facility] Serum or plasma anion gap de terminationOrdered By: Simone Stovall on 08-08-2023 Anion gap [Moles/Vol] 11.5 mmol/L 6.0-15.0 [facility] Serum or plasma non-glucuron idated bilirubin measurement (mass/volume)Ordered By: Simone Stovall on 08-08-2023 Bilirubin.indirect [Mass/Vol] 0.5 mg/dL [facility] Sodium [Moles/volume] in Ser um or PlasmaOrdered By: Simone Stovall on 08-08-2023 Sodium [Moles/Vol] 135 mmol/L 136-145 [facility] Urea nitrogen [Mass/volume] in Serum or PlasmaOrdered By: Simone Stovall on 08-08-2023 Urea nitrogen [Mass/Vol] 15 mg/dL 7-25 [facility] WBC Auto (Bld) [#/Vol]Ordere d By: Simone Stovall on 08-08-2023 WBC (Bld) [#/Vol] 12.1 10*3/uL 3.8-11.6 [facility] Automated erythrocytes count in urine sediment (number/area)Ordered By: PROVIDER TEMP on 08-07-2023 RBC Auto (Urine sed) [#/Area] 3-4 [HPF] 0-4 [facility] Automated leukocytes count i n urine sediment (number/area)Ordered By: PROVIDER TEMP on 08-07-2023 WBC Auto (Urine sed) [#/Area] Innumerable [HPF] 0-4 [facility] Bilirubin Test strip Ql (U)O rdered By: PROVIDER TEMP on 08-07-2023 Bilirubin Ql (U) Negative Negative [facility] Color Auto (U)Ordered By: KARIS TINEOER TEMP on 08-07-2023 Color (U) Yellow Yellow [facility] Ketones Auto test strip (U) [Mass/Vol]Ordered By: PROVIDER TEMP on 08-07-2023 Ketones (U) [Mass/Vol] Negative Negative [facility] Laboratory - UrinalysisOrder ed By: PROVIDER TEMP on 08-07-2023 Hyaline casts LM Ql (Urine sed) 0-8 [LPF] 0-8 [facility] Nitrite Test strip Ql (U)Ord ered By: PROVIDER TEMP on 08-07-2023 Nitrite Ql (U) Negative Negative [facility] Protein Auto test strip (U) [Mass/Vol]Ordered By: PROVIDER TEMP on 08-07-2023 Protein (U) [Mass/Vol] 100 mg/dL Negative [facility] Specific gravity Auto test s trip (U) [Rel density]Ordered By: PROVIDER TEMP on 08-07-2023 Specific gravity (U) [Rel density] 1.020 1.001-1.03 0 [facility] Squamous epithelial cells de tection in urine sediment by light microscopyOrdered By: PROVIDER TEMP on 08-07-2023 Epithelial cells.squamous LM Ql (Urine sed) 3-4 [HPF] 0-2 [facility] Urine bacteria detection by automated methodOrdered By: PROVIDER TEMP on 08-07-2023 Bacteria Auto Ql (U) Rare None Seen [facility] Urine clarity by refractomet ry automatedOrdered By: PROVIDER TEMP on 08-07-2023 Clarity Refractometry automated (U) Turbid Clear [facility] Urine culture routineOrdered By: PROVIDER TEMP on 08-07-2023 Bacteria identified Cx Nom (U) 2 Days [facility] Bacteria identified Cx Nom (U) 2 Days [facility] Urine glucose measurement by automated test strip (mass/volume)Ordered By: PROVIDER TEMP on 08-07-2023 Glucose Auto test strip (U) [Mass/Vol] Normal mg/dL Normal [facility] Urine hemoglobin detection b y automated test stripOrdered By: PROVIDER TEMP on 08-07-2023 Hemoglobin Auto test strip Ql (U) 2+ Negative [facility] Urine leukocyte esterase det ection by automated test stripOrdered By: PROVIDER TEMP on 08-07-2023 Leukocyte esterase Auto test strip Ql (U) 3+ Negative [facility] Urobilinogen Auto test strip (U) [Mass/Vol]Ordered By: PROVIDER TEMP on 08-07-2023 Urobilinogen (U) [Mass/Vol] Normal mg/dL Normal [facility] Yeast detection in urine sed iment by light microscopyOrdered By: PROVIDER TEMP on 08-07-2023 Yeast LM Ql (Urine sed) Rare [HPF] None Seen [facility] pH Auto test strip (U)Ordere d By: PROVIDER TEMP on 08-07-2023 pH (U) 5.5 [pH] 5.0-9.0 [facility] Follow-Upon 07-23-2023 Follow-Up [id number] Tim Mendez M 1975 F Date Provider Department Center 07/23/2023 ISAI SALINAS MP ORTHO MPORTHO Family History Problem Relation Age of Onset Cancer Mother Diabetes Father Cancer Maternal Grandmother Cancer Mother's Brother Cancer Mother's Sister Family Status - Relation Status Age at Mother Father Maternal Grandmother Mother's Brother Mother's Sister Level of Service:24649 [place] POSTOP FOLLOW UP VISIT RELATED TO ORIGINAL PX (GC) Reason for Visit and Comments: Follow-up [691862] Pain [136] Normal [facility] 29on 07-04-2023 29 Addended by: DARWIN BROOKS on: 07/04/2023 02:23 PM Modules accepted: Orders Normal [facility] 36on 07-04-2023 36 Medication was never received. [facility] 36 Nicola the resident se nt this yesterday [facility] Orders Onlyon 07-04-2023 Orders Only [id number] Tim Mendez 1975 F Date Provider Department Center 07/04/2023 [id number] LOW MP ORTHO MPORTHO Family History Problem Relation Age of Onset Cancer Mother Diabetes Father Cancer Maternal Grandmother Cancer Mother's Brother Cancer Mother's Sister Family Status - Relation Status Age at Mother Father Maternal Grandmother Mother's Brother Mother's Sister Normal [facility] Refillon 07-02-2023 Refill [id number] Tim Mendez M 1975 F Date Provider Department Center 07/02/2023 JAYNA ENGLISH MP ORTHO MPORTHO Family History Problem Relation Age of Onset Cancer Mother Diabetes Father Cancer Maternal Grandmother Cancer Mother's Brother Cancer Mother's Sister Family Status - Relation Status Age at Mother Father Maternal Grandmother Mother's Brother Mother's Sister Reason for Visit and Comments: Med Refill [844539] [facility] Office Visiton 07-01-2023 Follow-up visit [id number] Tim Mendez 1975 F Date Provider Department Filer 07/01/2023 ISAI SALINAS MP Family History Problem Relation Age of Onset Cancer Mother Diabetes Father Cancer Maternal Grandmother Cancer Mother's Brother Cancer Mother's Sister Family Status - Relation Status Age at Mother Father Maternal Grandmother Mother's Brother Mother's Sister Level of Service:23175 [place] POSTOP FOLLOW UP VISIT RELATED TO ORIGINAL PX Reason for Visit and Comments: Post-op [483] [facility] Patient Messageon 07-01-2023 Patient Message [id number] Tim Mendez 1975 Provider Department Filer 07/01/2023 ISAI SALINAS MP Family History Problem Relation Age of Onset Cancer Mother Diabetes Father Cancer Maternal Grandmother Cancer Mother's Brother Cancer Mother's Sister Family Status - Relation Status Age at Mother Father Maternal Grandmother Mother's Brother Mother's Sister [facility] 36on 06-20-2023 36 I spoke to the patie nt to see how she is doing after her recent surgery with Dr Ordoñez. Ms Mendez stated she is doing well and that her pain is manageable with medications. She is maintaining her non-weight bearing status. She has a post op appointment on July 01 at 915. She had no other questions or concerns. [facility] HISTOLOGY - TISSUE EXAMon LAB AP [...] the Clinical Laboratory Improvement Amendments of 1998. [facility] Comment on above: Order Comment: Pre-o p diagnosis:Carpal tunnel syndrome of left wrist [G56.02] Performed By: #### L [id number] ####[facility] ([facility])[address] [place] [address] LAB AP CASE REPORT Normal [facility] Comment on above: Order Comment: Pre-o p diagnosis:Carpal tunnel syndrome of left wrist [G56.02] Result Comment: Surg ical Pathology Case: [id number] Authorizing Provider: Isai Ordoñez MD Collected: 06/19/2023 1127 Ordering Location: Josr [facility] Received: 06/19/2023 [facility] Main OR Pathologist: Fiordaliza Voss MD Specimen: Wrist, SYNOVIUM CARPAL TUNNEL Performed By: #### L [id number] ####[facility] ([facility])[address] [facility] [place] [address] LAB AP CLINICAL INFORMATION [facility] Comment on above: Order Comment: Pre-o p diagnosis:Carpal tunnel syndrome of left wrist [G56.02] Result Comment: Post -Op Diagnoses G56.02 - Carpal tunnel syndrome of left wrist [ICD-10-CM] Performed By: #### L [id number] ####[facility] ([facility])[address] [facility] [place] [address] LAB AP GROSS DESCRIPTION A. Wrist. [facility] Comment on above: Order Comment: Pre-o p diagnosis:Carpal tunnel syndrome of left wrist [G56.02] Result Comment: Rece ived in formalin labeled Lisa Mendez, SYNOVIUM CARPAL TUNNEL are multiple pale vaughn to faint pink-yellow ragged rubbery to soft tissue fragments 2.6 x 2.3 x 0.5 cm in aggregate. The cut surfaces are glossy and rubbery to dull and soft. Meal Temperer sections are submitted in a single cassette. Marium Rosales, Pathologists' Supervisor Advice Performed By: #### L [id number] ####[facility] ([facility])[address] [facility] [place] [address] LAB AP MICROSCOPIC DESCRIPTION Microscopic examination performed. [facility] Comment on above: Order Comment: Pre-o p diagnosis:Carpal tunnel syndrome of left wrist [G56.02] Performed By: #### L [id number] ####[facility] ([facility])[address] [facility] [place] [address] LAB AP REPORT FINAL DIAGNOSIS NARRATIVE [facility] Comment on above: Order Comment: Pre-o p diagnosis:Carpal tunnel syndrome of left wrist [G56.02] Result Comment: A. S oft tissue, wrist synovium, biopsy: - Synovium with arterial fibrous intimal thickening, otherwise unremarkable. - Congo red stain is negative. Performed By: #### L [id number] ####[facility] ([facility])[address] [facility] [place] [address] HPon 06-19-2023 HP H&P reviewed. The pa tient was examined and there are no changes to the H&P. [facility] OPNOTEon 06-19-2023 OPNOTE Operative Note Patient: Lisa Mendez Date of Surgery: 06/19/2023 : 1975 Pre-operative Diagnosis: 1. Recurrent carpal tunnel syndrome left hand 2. Persisting pain after Deleon arthroplasty left thumb Post-operative Diagnosis: same Operation: 1. Revision carpal tunnel release left hand 2. Type of procedure left thumb Surgeon: Isai Ordoñez MD Supervisor Advice: Mimi Pierre MD Staff: [employer] Architect: Sheeba Thibodeaux RN Scrub Person: Ashley Montelongo [...] Wrist HIS (more content not included)... Normal [facility] POCT GLUCOSE METER UNSOLICIT ED RESULTSon 06-19-2023 Glucose [Mass/Vol] 108 mg/dL High 70-105 [facility] Comment on above: Order Comment: Waive d Testing in the ED is performed under the ED CLIA certificate #[id number]. Result Comment: [email or web address] Performed By: #### L [id number] #### [facility] ([facility]) [address] [place] [address] Glucose [Mass/Vol] 111 mg/dL High 70-105 [facility] Comment on above: Order Comment: Waive d Testing in the ED is performed under the ED CLIA certificate #[id number]. Result Comment: [email or web address] Performed By: #### L [id number] #### [facility] ([facility]) [address] [place] [address] Follow-Upon 06-04-2023 Follow-Up [id number] Tim Mendez 1975 F Date Provider Department Center 06/04/2023 ISAI SALINAS MP ORTHO MPORTHO Family History Problem Relation Age of Onset Cancer Mother Diabetes Father Cancer Maternal Grandmother Cancer Mother's Brother Cancer Mother's Sister Family Status - Relation Status Age at Mother Father Maternal Grandmother Mother's Brother Mother's Sister Level of Service:84054 [place] OFFICE/OUTPATIENT ESTABLISHED LOW MDM 20-29 MIN Reason for Visit and Comments: Edema [[id number]] Numbness [75] Decreased Range Of Motion [852] Pain [136] Normal [facility] HPon 06-04-2023 Orthopedic Surgery Subjective Chief complaint: Chief Complaint Patient presents with Left Hand - Edema, Numbness, Decreased Range Of Motion, Pain Lisa Mendez is a 47 y.o. year old female [...] to immediate. Imaging: None today Assessment/Plan Lisa Mendez is a 47 y.o. year old female [...] them back in clinic following the procedure. Normal [facility] Procedure Visiton 05-16-2023 Procedure Visit [id number] Tim Mendez Linda 1975 F Date Provider Department Center 05/16/2023 1282-YASMANI MOREJON MP PHYS MED [facility] Family History Problem Relation Age of Onset Cancer Mother Diabetes Father Cancer Maternal Grandmother Cancer Mother's Brother Cancer Mother's Sister Family Status - Relation Status Age at Mother Father Maternal Grandmother Mother's Brother Mother's Sister Level of Service:51471 [place] OFFICE/OUTPT VISIT,PROCEDURE ONLY Reason for Visit and Comments: EMG [Other] - ALYCE Normal [facility] Urine culture routineOrdered By: Augustine David on 04-12-2023 Bacteria identified Cx Nom (U) 2 Days [facility] Automated erythrocytes count in urine sediment (number/area)Ordered By: Boston Reed on 04-08-2023 RBC Auto (Urine sed) [#/Area] 20-49 [HPF] 0-4 [facility] Automated leukocytes count i n urine sediment (number/area)Ordered By: Boston Reed on 04-08-2023 WBC Auto (Urine sed) [#/Area] 50-100 [HPF] 0-4 [facility] Automated urine hyaline cast s count (number/volume)Ordered By: Boston Reed on 04-08-2023 Hyaline casts Auto (U) [#/Vol] None seen [LPF] 0-1 [facility] Bilirubin Test strip Ql (U)O rdered By: Boston Reed on 04-08-2023 Bilirubin Ql (U) Negative Negative [facility] Color Auto (U)Ordered By: Jorge Reed on 04-08-2023 Color (U) Yellow Yellow [facility] Ketones Auto test strip (U) [Mass/Vol]Ordered By: Boston Reed on 04-08-2023 Ketones (U) [Mass/Vol] Trace Negative [facility] Nitrite Test strip Ql (U)Ord ered By: Boston Reed on 04-08-2023 Nitrite Ql (U) Negative Negative [facility] Protein Auto test strip (U) [Mass/Vol]Ordered By: Boston Reed on 04-08-2023 Protein (U) [Mass/Vol] 30 mg/dL Negative [facility] Specific gravity Auto test s trip (U) [Rel density]Ordered By: Boston Reed on 04-08-2023 Specific gravity (U) [Rel density] 1.026 1.001-1.03 0 [facility] Squamous epithelial cells de tection in urine sediment by light microscopyOrdered By: Boston Reed on 04-08-2023 Epithelial cells.squamous LM Ql (Urine sed) 1-2 [HPF] 0-2 [facility] Urine bacteria detection by automated methodOrdered By: Boston Reed on 04-08-2023 Bacteria Auto Ql (U) None seen None Seen [facility] Urine clarity by refractomet ry automatedOrdered By: Boston Reed on 04-08-2023 Clarity Refractometry automated (U) Cloudy Clear [facility] Urine culture routineOrdered By: Boston Reed on 04-08-2023 Bacteria identified Cx Nom (U) 2 Days [facility] Urine glucose measurement by automated test strip (mass/volume)Ordered By: Boston Reed on 04-08-2023 Glucose Auto test strip (U) [Mass/Vol] Normal mg/dL Normal [facility] Urine hemoglobin detection b y automated test stripOrdered By: Boston Reed on 04-08-2023 Hemoglobin Auto test strip Ql (U) Trace Negative [facility] Urine leukocyte esterase det ection by automated test stripOrdered By: Boston Reed on 04-08-2023 Leukocyte esterase Auto test strip Ql (U) 2+ Negative [facility] Urobilinogen Auto test strip (U) [Mass/Vol]Ordered By: Boston Reed on 04-08-2023 Urobilinogen (U) [Mass/Vol] Normal mg/dL Normal [facility] pH Auto test strip (U)Ordere d By: Boston Reed on 04-08-2023 pH (U) 6.0 [pH] 5.0-9.0 [facility] Follow-Upon 04-04-2023 Follow-Up [id number] Tim Mendez 1975 F Date Provider Department Center 04/04/2023 ISAI SALINAS [facility] Family History Problem Relation Age of Onset Cancer Mother Diabetes Father Cancer Maternal Grandmother Cancer Mother's Brother Cancer Mother's Sister Family Status - Relation Status Age at Mother Father Maternal Grandmother Mother's Brother Mother's Sister Level of Service:59003 [place] OFFICE/OUTPATIENT ESTABLISHED LOW MDM 20-29 MIN Reason for Visit and Comments: Follow-up [218373] Follow-up [263883] Normal [facility] COVID CepheidOrdered By: Smiley Corea on 03-23-2023 SARS-CoV-2 (COVID-19) Ab IA Ql Negative Negative [facility] Comment on above: This is a duplicate Cepheid Xpert Xpress CoV-2/Flu/RSV Plus RNA by RT-PCR result to be used for statistical tracking purpose only. SARS-CoV-2 (COVID-19) RNA DEBBIE+probe Ql (Unsp spec) [facility] [facility] reactive protein [Mass/vol ume] in Serum or PlasmaOrdered By: Edilia Buitrago on 03-11-2023 CRP [Mass/Vol] 1.1 mg/dL 0.0-0.5 [facility] Erythrocyte sedimentation ra te by Photometric methodOrdered By: Edilia Buitrago on 03-11-2023 ESR Photometric method (Bld) [Velocity] 23 mm/hr 0-19 [facility] Glucose [Mass/volume] in Ser um or PlasmaOrdered By: Michael Morley on 03-11-2023 Glucose [Mass/Vol] 132 mg/dL 70-100 [facility] Comment on above: ADA recommended refe [...] from glycated hemoglobin (Bld) [Mass/Vol] 146 mg/dL [facility] Hemoglobin A1c percentageOrd ered By: Michael Morley on 03-11-2023 HbA1c (Bld) [Mass fraction] 6.7 % 4.3-5.6 [facility] Comment on above: Increased risk for d iabetes: 5.7 - 6.4diabetes: >6.4glycemic control for adults with diabetes: <7.0 Vitamin B12 ser/plasOrdered By: Michael Morley on 03-11-2023 Cobalamin (Vitamin B12) [Mass/Vol] 495 pg/mL 180-914 [facility] 36on 02-25-2023 36 It sounds as though she is getting numbness in all of her fingers, but predominantly the median nerve distribution. I recommended that she get a wrist splint from the drugstore or online and try that for a few weeks to see if that helps. Normal [facility] Orders Onlyon 02-25-2023 Orders Only [id number] Tim Mendez 1975 F Date Provider Department Center 02/25/2023 ISAI SALINAS MP ORTHO MPORTHO Family History Problem Relation Age of Onset Cancer Mother Diabetes Father Cancer Maternal Grandmother Cancer Mother's Brother Cancer Mother's Sister Family Status - Relation Status Age at Mother Father Maternal Grandmother Mother's Brother Mother's Sister Normal [facility] Follow-Upon 01-15-2023 Follow-Up [id number] Tim Mendez 1975 F Date Provider Department Center 01/15/2023 ISAI SALINAS MP ORTHO MPORTHO Family History Problem Relation Age of Onset Cancer Mother Diabetes Father Cancer Maternal Grandmother Cancer Mother's Brother Cancer Mother's Sister Family Status - Relation Status Age at Mother Father Maternal Grandmother Mother's Brother Mother's Sister Level of Service:12787 [place] POSTOP FOLLOW UP VISIT RELATED TO ORIGINAL PX (GC) Reason for Visit and Comments: Edema [[id number]] Pain [136] Follow-up [[id number]] Normal [facility] CT FOOT RT WO CONon 12-19-19 CT [...] by: MICHAEL OLIVER Date: 2022-12-18 17:15 Normal [facility] XR FOOT HUNTER MIN 3 VIEWSon XR [...] by: MICHAEL OLIVER Date: 2022-12-05 17:47 Normal [facility] Follow-Upon 12-04-2022 Follow-Up [id number] AndreaTimranda Mckeon 1975 F Date Provider Department Center 12/04/2022 ISAI SALINAS MP Family History Problem Relation Age of Onset Cancer Mother Diabetes Father Cancer Maternal Grandmother Cancer Mother's Brother Cancer Mother's Sister Family Status - Relation Status Age at Mother Father Maternal Grandmother Mother's Brother Mother's Sister Level of Service:08667 [place] POSTOP FOLLOW UP VISIT RELATED TO ORIGINAL PX Reason for Visit and Comments: Follow-up [[id number]] Normal [facility] 36on 11-13-2022 36 Pt coming in today Normal [facility] Office Visiton 11-13-2022 Follow-up visit [id number] Jose C Mendezranda Mckeon 1975 F Date Provider Department Center 11/13/2022 ISAI SALINAS MP Family History Problem Relation Age of Onset Cancer Mother Diabetes Father Cancer Maternal Grandmother Cancer Mother's Brother Cancer Mother's Sister Family Status - Relation Status Age at Mother Father Maternal Grandmother Mother's Brother Mother's Sister Level of Service:08458 [place] POSTOP FOLLOW UP VISIT RELATED TO ORIGINAL PX (GC) Reason for Visit and Comments: Follow-up [[id number]] Post-op [483] Normal [facility] EDPROVon 11-10-[address] [address] EMERGENCY DEPARTMENT ENCOUNTER ED Room: CHIEF COMPLAINT [...] ON 5 MIN, RINSE TOPICALLLY 2-3 WEEKLY CLOTRIMAZOLE-BETAMETHASON E (LOTRISONE) CREAM APPLY TO THE AFFECTED AREA [...] 40 mg by mouth in the morning. HYDROCODONE-ACETAMINOPHEN (NORCO) 5-325 MG TABLET Take 1 tablet [...] appearance. Muscul (more content not included)... Normal [facility] EDNURSon 11-09-2022 EDNURS Pt had surgery on le ft wrist 10/25. This past , pt began having increased pain and swelling. Pt has exposed pin pushing out of her wrist. Normal [facility] XR KUB 1 VIEWon 11-08-2022 XR KUB [...] by: FABY TIWARI Date: 2022-11-08 09:29 Normal [facility] 29on 11-06-2022 29 Addended by: Linda ORDOÑEZ on: 11/06/2022 05:49 PM Modules accepted: Orders Normal [facility] Office Visiton 11-06-2022 Follow-up visit [id number] Tim Mendez 1975 F Date Provider Department Center 11/06/2022 438-ISAI [facility]DO[facility] Family History Problem Relation Age of Onset Cancer Mother Diabetes Father Cancer Maternal Grandmother Cancer Mother's Brother Cancer Mother's Sister Family Status - Relation Status Age at Mother Father Maternal Grandmother Mother's Brother Mother's Sister Level of Service:27701 [place] POSTOP FOLLOW UP VISIT RELATED TO ORIGINAL PX (GC) Reason for Visit and Comments: Post-op [483] Normal [facility] Alanine aminotransferase [En zymatic activity/volume] in Serum or PlasmaOrdered By: Simone Stovall on 11-04-2022 ALT [Catalytic activity/Vol] 15 U/L 7-52 [facility] Albumin [Mass/volume] in Ser um or Plasma by Bromocresol green (BCG) dye binding methoOrdered By: Simone Stovall on 11-04-2022 Albumin BCG dye [Mass/Vol] 4.5 g/dL 3.5-5.7 [facility] Alkaline phosphatase [Enzyma tic activity/volume] in Serum or PlasmaOrdered By: Simone Stovall on 11-04-2022 ALP [Catalytic activity/Vol] 89 U/L 34-104 [facility] Aspartate aminotransferase [ Enzymatic activity/volume] in Serum or PlasmaOrdered By: Simone Stovall on 11-04-2022 AST [Catalytic activity/Vol] 18 U/L 13-39 [facility] BASIC METABOLIC PANELon 04-0 Anion gap [Moles/Vol] 10 mmol/L Normal 7-20 [facility] Comment on above: Performed By: #### L [id number] ####[facility] (BEAKER)[address] [place] [address] Calcium [Mass/Vol] 9.2 mg/dL Normal 8.6-10.3 [facility] Comment on above: Performed By: #### L [id number] ####[facility] ([facility]AKER)[address] [place] [address] Chloride [Moles/Vol] 100 mmol/L Normal 98-107 [facility] Comment on above: Performed By: #### L [id number] ####[facility] ([facility]AKER)[address] [facility] [place] [address] CO2 [Moles/Vol] 29 mmol/L Normal 21-31 [facility] Comment on above: Performed By: #### L [id number] ####[facility] ([facility])[address] [place] [address] Creatinine [Mass/Vol] 0.65 mg/dL Normal 0.60-1.20 [facility] Comment on above: Performed By: #### L [id number] ####[facility] ([facility])[address] [place] [address] GLOMERULAR FILTRATION RATE ML/MIN/1.73 SQ M.PREDICTED 109.9 mL/min/1.73m*2 Normal >60.0 [facility] Comment on above: Result Comment: [facility]???s estimated glomerular filtration rate (eGFR) will no [...] of individuals. Performed By: #### L [id number] ####[facility] ([facility])[address] [place] [address] Glucose [Mass/Vol] 105 mg/dL High 70-100 [facility] Comment on above: Performed By: #### L [id number] ####[facility] ([facility])[address] [place] [address] Potassium [Moles/Vol] 3.9 mmol/L Normal 3.5-5.1 [facility] Comment on above: Performed By: #### L [id number] ####[facility] ([facility])[address] [place] [address] Sodium [Moles/Vol] 135 mmol/L Low 136-145 [facility] Comment on above: Performed By: #### L [id number] ####[facility] ([facility])[address] [place] [address] Urea nitrogen [Mass/Vol] 14 mg/dL Normal 7-25 [facility] Comment on above: Performed By: #### L [id number] ####[facility] ([facility])[address] [place] [address] UREA NITROGEN/CREATININE (MASS RATIO) IN SER/PLAS 21.5 Normal [facility] Comment on above: Performed By: #### L [id number] ####[facility] ([facility])[address] [place] [address] Basophils Auto (Bld) [#/Vol] Ordered By: Simone Stovall on 11-04-2022 Basophils (Bld) [#/Vol] 0.0 10*3/uL 0.0-0.2 [facility] Basophils/100 WBC Auto (Bld) Ordered By: Simone Stovall on 11-04-2022 Basophils/100 WBC (Bld) 0.4 % . [facility] Bilirubin Test strip Ql (U)O rdered By: Simone Stovall on 11-04-2022 Bilirubin Ql (U) Negative Negative [facility] Bilirubin.total [Mass/volume ] in Serum or PlasmaOrdered By: Simone Stovall on 11-04-2022 Bilirubin [Mass/Vol] 0.4 mg/dL 0.3-1.0 [facility] C-REACTIVE PROTEINon 023 C REACTIVE PROTEIN (MG/L) IN SER/PLAS 8.2 mg/L High 0.0-7.0 [facility] Comment on above: Performed By: #### L [id number] #### [facility] ([facility]) [address] [place] [address] CBC WITH AUTO DIFFERENTIALon 11-04-2022 Basophils (Bld) [#/Vol] 0.06 10*3/uL Normal 0.00-0.20 [facility] Comment on above: Performed By: #### L [id number] ####[facility] ([facility])[address] [place] [address] Basophils/100 WBC (Bld) 0.6 % Normal 0.0-1.0 [facility] Comment on above: Performed By: #### L [id number] ####[facility] (BEAKER)[address] [place] [address] Eosinophils (Bld) [#/Vol] 0.26 10*3/uL Normal 0.00-0.50 [facility] Comment on above: Performed By: #### L [id number] ####[facility] (BE[facility]ER)[address] [place] [address] Eosinophils/100 WBC (Bld) 2.6 % Normal 0.0-6.0 [facility] Comment on above: Performed By: #### L [id number] ####[facility] (BEAKER)[address] [place] [address] Erythrocyte distribution width (RBC) [Ratio] 12.8 % Normal 11.5-15.0 [facility] Comment on above: Performed By: #### L [id number] ####[facility] (BEAKER)[address] [place] [address] ERYTHROCYTE MEAN CORPUSCULAR HEMOGLOBIN CONCENTRATION (G/DL) BY AUTOMATED 34.4 g/dL Normal 32.0-35.0 [facility] Comment on above: Performed By: #### L [id number] ####[facility] ([facility]ER)[address] [place] [address] Hematocrit (Bld) [Volume fraction] 37.5 % Normal 36.0-48.0 [facility] Comment on above: Performed By: #### L [id number] ####[facility] (BE[facility]ER)[address] [place] [address] Hemoglobin (Bld) [Mass/Vol] 12.9 g/dL Normal 12.0-15.0 [facility] Comment on above: Performed By: #### L [id number] ####[facility] (BE[facility]ER)[address] [place] [address] Immature granulocytes (Bld) [#/Vol] 0.06 10*3/uL Normal 0.00-0.20 [facility] Comment on above: Performed By: #### L [id number] ####[facility] ([facility])[address] [place] [address] Immature granulocytes/100 WBC (Bld) 0.6 % Normal 0.0-1.0 [facility] Comment on above: Performed By: #### L [id number] ####[facility] ([facility])[address] [place] [address] Lymphocytes (Bld) [#/Vol] 2.68 10*3/uL Normal 1.20-4.00 [facility] Comment on above: Performed By: #### L [id number] ####[facility] ([facility])[address] [place] [address] Lymphocytes/100 WBC (Bld) 27.2 % Normal 20.0-45.0 [facility] Comment on above: Performed By: #### L [id number] ####[facility] ([facility])[address] [place] [address] MCH (RBC) [Entitic mass] 27.7 pg Normal 27.0-33.0 [facility] Comment on above: Performed By: #### L [id number] ####[facility] ([facility])[address] [place] [address] MCV (RBC) [Entitic vol] 80.6 fL Low 82.0-98.0 [facility] Comment on above: Performed By: #### L [id number] ####[facility] ([facility])[address] [place] [address] Monocytes (Bld) [#/Vol] 0.89 10*3/uL Normal 0.10-1.00 [facility] Comment on above: Performed By: #### L [id number] ####[facility] ([facility])[address] [place] [address] Monocytes/100 WBC (Bld) 9.0 % Normal 5.0-12.0 [facility] Comment on above: Performed By: #### L [id number] ####[facility] ([facility])[address] [place] [address] Neutrophils (Bld) [#/Vol] 5.92 10*3/uL Normal 1.60-7.60 [facility] Comment on above: Performed By: #### L [id number] ####[facility] ([facility])[address] [place] [address] Neutrophils/100 WBC (Bld) 60.0 % Normal 40.0-72.0 [facility] Comment on above: Performed By: #### L [id number] ####[facility] ([facility])[address] [place], [place] [address] NRBC (PER 100 WBCS) BY AUTOMATED COUNT 0.0 % Normal 0.0-0.0 [facility] Comment on above: Performed By: #### L [id number] ####[facility] ([facility])[address] [place] [address] PLATELETS (10*3/UL) IN BLOOD AUTOMATED COUNT 265 10*3/uL Normal 150-400 [facility] Comment on above: Performed By: #### L [id number] ####[facility] ([facility])[address] [place] [address] RBC (Bld) [#/Vol] 4.65 10*6/uL Normal 3.80-5.00 [facility] Comment on above: Performed By: #### L [id number] ####[facility] ([facility])[address] [place] [address] WBC (Bld) [#/Vol] 9.87 10*3/uL Normal 4.00-10.60 [facility] Comment on above: Performed By: #### L [id number] ####[facility] ([facility])[address] [place] [address] Calcium [Mass/volume] in Ser um or PlasmaOrdered By: Simone Stovall on 11-04-2022 Calcium [Mass/Vol] 9.8 mg/dL 8.6-10.3 [facility] Carbon dioxide, total [Moles /volume] in Serum or PlasmaOrdered By: Simone Stovall on 11-04-2022 CO2 [Moles/Vol] 22.6 mmol/L 21.0-31.0 [facility] Chloride [Moles/volume] in S claudia or PlasmaOrdered By: Simone Stovall on 11-04-2022 Chloride [Moles/Vol] 99 mmol/L 98-107 [facility] Color Auto (U)Ordered By: Vale Stovall on 11-04-2022 Color (U) Yellow Yellow [facility] Creatinine [Mass/volume] in Serum or PlasmaOrdered By: Simone Stovall on 11-04-2022 Creatinine [Mass/Vol] 0.75 mg/dL 0.60-1.20 [facility] EDNURSon 11-04-2022 EDNURS Mode of arrival (squ ad #, walk in, police, etc): walk in Chief complaint(s): post surgical pain 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 She had a L hand arthroplasty on 10/25/[address] Ordoñez, she has yet to have a follow up appt with her surgeon. Pt reports she has iced the area and last took her pain meds at 2000 this evening (norco). 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 Pt denies any fever,chills/N/V since surgery Normal [facility] EDPROVon 11-04-2022 EDPROV HPI Chief Complaint Patient presents with postop surgical pain PT here from home via private auto. Pt with male visitor at bedside who doesn't partiticpate in history. Pt reports that she is conerned that the pin is infected . PT reports that had a repeat surgery on her left hand by Dr Ordoñez on Oct 25. Pt notes that was [...] Procedure Abnormality Status --------- ------ CBC auto differential[[id number]] Abnormal Final result Please view results for these tests on the individual orders. XR hand 3+ views left Preliminary Result Postsurgical changes of the first CMC joint without complication. Approved by:Francisco Jeff11/04/2022 1:31 AM. ED Course & [facility] ED Course as of 11/06/22 0920 [place] Nov 04, 2022 0047 Pt/visitor aware that will be in contact with her surgeon to evaluate wound. [CS] 0143 I spoke with ortho about this consult. [...] [CS] ED Course User Index [CS] Rose Mendez MD Diagnoses as of 11/06/22 0920 Infection [...] tissue interpositi (more content not included)... Normal [facility] Eosinophils Auto (Bld) [#/Vo l]Ordered By: Simone Stovall on 11-04-2022 Eosinophils (Bld) [#/Vol] 0.3 10*3/uL 0.0-0.45 [facility] Eosinophils/100 WBC Auto (Bl d)Ordered By: Simone Stovall on 11-04-2022 Eosinophils/100 WBC (Bld) 2.0 % . [facility] Erythrocyte distribution wid th Auto (RBC) [Ratio]Ordered By: Simone Stovall on 11-04-2022 Erythrocyte distribution width (RBC) [Ratio] 13.6 % 11.9-15.3 [facility] Globulin Calc (S) [Mass/Vol] Ordered By: Simone Stovall on 11-04-2022 Globulin (S) [Mass/Vol] 3.2 g/dL [facility] Glucose [Mass/volume] in Ser um or PlasmaOrdered By: Simone Stovall on 11-04-2022 Glucose [Mass/Vol] 154 mg/dL 70-100 [facility] Comment on above: ADA recommended refe rence rangeRandom Glucose Reference Range is dependent on time and content of last meal. Glucose of more than 200 mg/dL in a nonstressed, ambulatory subject supports the diagnosis of Diabetes Mellitus. Hematocrit Auto (Bld) [Volum e fraction]Ordered By: Simone Stovall on 11-04-2022 Hematocrit (Bld) [Volume fraction] 39.0 % 34.0-46.4 [facility] Hemoglobin [Mass/volume] in BloodOrdered By: Simone Stovall on 11-04-2022 Hemoglobin (Bld) [Mass/Vol] 13.6 g/dL 11.8-15.4 [facility] Ketones Auto test strip (U) [Mass/Vol]Ordered By: Simone Stovall on 11-04-2022 Ketones (U) [Mass/Vol] Negative Negative [facility] Leukocytes [#/volume] correc cristian for nucleated erythrocytes in Blood by Automated counOrdered By: Simone Sotvall on 11-04-2022 WBC corrected for nucl RBC Auto (Bld) [#/Vol] 12.5 10*3/uL 3.8-11.6 [facility] Lipase [Enzymatic activity/v olume] in Serum or PlasmaOrdered By: Simone Stovall on 11-04-2022 Lipase [Catalytic activity/Vol] 25.0 U/L 11.0-82.0 [facility] Lymphocytes Auto (Bld) [#/Vo l]Ordered By: Simone Stovall on 11-04-2022 Lymphocytes (Bld) [#/Vol] 2.1 10*3/uL 1.00-4.8 [facility] Lymphocytes/100 WBC Auto (Bl d)Ordered By: Simone Stovall on 11-04-2022 Lymphocytes/100 WBC (Bld) 16.9 % . [facility] MCH Auto (RBC) [Entitic mass ]Ordered By: Simone Stovall on 11-04-2022 MCH (RBC) [Entitic mass] 27.6 pg 24.7-34.3 [facility] MCHC Auto (RBC) [Mass/Vol]Or dered By: Simone Stovall on 11-04-2022 MCHC (RBC) [Mass/Vol] 34.8 g/dL 32.0-35.0 [facility] MCV Auto (RBC) [Entitic vol] Ordered By: Simone Stovall on 11-04-2022 MCV (RBC) [Entitic vol] 79.2 fL 80-100 [facility] Monocyte distribution width [Entitic volume] in Blood by AutomatedOrdered By: Simone Stovall on 11-04-2022 Monocyte distribution width Auto (Bld) [Entitic vol] 20.60 % 0.00-20.00 [facility] Comment on above: For adults in ED, MD W > 20.0 may be associated with a higher risk of sepsis during the first 12 hrs of hospital admission Monocytes Auto (Bld) [#/Vol] Ordered By: Simone Stovall on 11-04-2022 Monocytes (Bld) [#/Vol] 1.0 10*3/uL 0.0-0.8 [facility] Monocytes/100 WBC Auto (Bld) Ordered By: Simone Stovall on 11-04-2022 Monocytes/100 WBC (Bld) 7.8 % . [facility] Neutrophils Auto (Bld) [#/Vo l]Ordered By: Simone Stovall on 11-04-2022 Neutrophils (Bld) [#/Vol] 9.1 10*3/uL 1.8-7.7 [facility] Neutrophils/100 WBC Auto (Bl d)Ordered By: Simone Stovall on 11-04-2022 Neutrophils/100 WBC (Bld) 72.9 % . [facility] Nitrite Test strip Ql (U)Ord ered By: Simone Stovall on 11-04-2022 Nitrite Ql (U) Negative Negative [facility] No Panel InformationOrdered By: Simone Stovall on 11-04-2022 Estimated GFR (CKD-EPI) > 60.0 mL/Min [facility] Creatinine Clearance (Chem 102.90 [facility] Nucleated erythrocytes [Pres ence] in Blood by Automated countOrdered By: Simone Stovall on 11-04-2022 Nucleated RBC Auto Ql (Bld) 0.1 /100{WBC} 0-0.5 [facility] Platelet mean volume Auto (B ld) [Entitic vol]Ordered By: Simone Stovall on 11-04-2022 Platelet mean volume (Bld) [Entitic vol] 7.4 fL 6.3-10.7 [facility] Platelets Auto (Bld) [#/Vol] Ordered By: Simone Stovall on 11-04-2022 Platelets (Bld) [#/Vol] 301 10*3/uL 150-450 [facility] Potassium [Moles/volume] in Serum or PlasmaOrdered By: Simone Stovall on 11-04-2022 Potassium [Moles/Vol] 3.8 mmol/L 3.5-5.1 [facility] Protein Auto test strip (U) [Mass/Vol]Ordered By: Simone Stovall on 11-04-2022 Protein (U) [Mass/Vol] Negative Negative [facility] Protein [Mass/volume] in Ser um or PlasmaOrdered By: Simone Stovall on 11-04-2022 Protein [Mass/Vol] 7.7 g/dL 6.4-8.9 [facility] RBC Auto (Bld) [#/Vol]Ordere d By: Simone Stovall on 11-04-2022 RBC (Bld) [#/Vol] 4.92 10*6/uL 3.60-5.00 [facility] SEDIMENTATION RATEon 04-02-2 023 SEDIMENTATION RATE, ERYTHROCYTE 36 mm/hr High <=20 [facility] Comment on above: Performed By: #### L [id number] #### [facility] ([facility]) [address] [place] [address] Serum or plasma albumin/glob ulin mass ratioOrdered By: Simone Stovall on 11-04-2022 Albumin/Globulin [Mass ratio] 1.4 {ratio} [facility] Serum or plasma anion gap de terminationOrdered By: Simone Stovall on 11-04-2022 Anion gap [Moles/Vol] 15.2 mmol/L 6.0-15.0 [facility] Sodium [Moles/volume] in Ser um or PlasmaOrdered By: Simone Stovall on 11-04-2022 Sodium [Moles/Vol] 133 mmol/L 136-145 [facility] Specific gravity Auto test s trip (U) [Rel density]Ordered By: Simone Stovall on 11-04-2022 Specific gravity (U) [Rel density] 1.012 1.001-1.03 0 [facility] Urea nitrogen [Mass/volume] in Serum or PlasmaOrdered By: Simone Stovall on 11-04-2022 Urea nitrogen [Mass/Vol] 18 mg/dL 7-25 [facility] Urine clarity by refractomet ry automatedOrdered By: iSmone Stovall on 11-04-2022 Clarity Refractometry automated (U) Clear Clear [facility] Urine glucose measurement by automated test strip (mass/volume)Ordered By: Simone Stovall on 11-04-2022 Glucose Auto test strip (U) [Mass/Vol] Normal mg/dL Normal [facility] Urine hemoglobin detection b y automated test stripOrdered By: Simone Stovall on 11-04-2022 Hemoglobin Auto test strip Ql (U) Negative Negative [facility] Urine leukocyte esterase det ection by automated test stripOrdered By: Simone Stovall on 11-04-2022 Leukocyte esterase Auto test strip Ql (U) Negative Negative [facility] Urobilinogen Auto test strip (U) [Mass/Vol]Ordered By: Simone Stovall on 11-04-2022 Urobilinogen (U) [Mass/Vol] Normal mg/dL Normal [facility] WBC Auto (Bld) [#/Vol]Ordere d By: Simone Stovall on 11-04-2022 WBC (Bld) [#/Vol] 12.5 10*3/uL 3.8-11.6 [facility] pH Auto test strip (U)Ordere d By: Simone Stovall on 11-04-2022 pH (U) 5.0 [pH] 5.0-9.0 [facility] Basophils Auto (Bld) [#/Vol] Ordered By: Rhiannon Mendez on 11-03-2022 Basophils (Bld) [#/Vol] 0.0 10*3/uL 0.0-0.2 [facility] [facility] Bas[facility]/100 WBC Auto (Bld) Ordered By: Rhiannon Mendez on 11-03-2022 Basophils/100 WBC (Bld) 0.5 % . [facility] Calcium [Mass/volume] in Ser um or PlasmaOrdered By: Rhiannon Mendez on 11-03-2022 Calcium [Mass/Vol] 8.6 mg/dL 8.6-10.3 [facility] Carbon dioxide, total [Moles /volume] in Serum or PlasmaOrdered By: Rhiannon Mendez on 11-03-2022 CO2 [Moles/Vol] 23.3 mmol/L 21.0-31.0 [facility] Chloride [Moles/volume] in S claudia or PlasmaOrdered By: Rhiannon Mendez on 11-03-2022 Chloride [Moles/Vol] 108 mmol/L 98-107 [facility] Creatinine [Mass/volume] in Serum or PlasmaOrdered By: Rhiannon Mendez on 11-03-2022 Creatinine [Mass/Vol] 0.53 mg/dL 0.60-1.20 [facility] Eosinophils Auto (Bld) [#/Vo l]Ordered By: Rhiannon Mendez on 11-03-2022 Eosinophils (Bld) [#/Vol] 0.3 10*3/uL 0.0-0.45 [facility] Eosinophils/100 WBC Auto (Bl d)Ordered By: Rhiannon Mendez on 11-03-2022 Eosinophils/100 WBC (Bld) 2.8 % . [facility] Erythrocyte distribution wid th Auto (RBC) [Ratio]Ordered By: Rhiannon Mendez on 11-03-2022 Erythrocyte distribution width (RBC) [Ratio] 13.4 % 11.9-15.3 [facility] Glucose Glucometer (BldC) [M ass/Vol]Ordered By: Walter Zhang on 11-03-2022 Glucose [Mass/Vol] 120 mg/dL [facility] Comment on above: Random Glucose Refer ence Range is dependent on time and content of last meal. Glucose of more than 200 mg/dL in a nonstressed, ambulatory subject supports the diagnosis of Diabetes Mellitus. Glucose [Mass/volume] in Ser um or PlasmaOrdered By: Rhiannon Mendez on 11-03-2022 Glucose [Mass/Vol] 106 mg/dL 70-100 [facility] Comment on above: ADA recommended refe rence rangeRandom Glucose Reference Range is dependent on time and content of last meal. Glucose of more than 200 mg/dL in a nonstressed, ambulatory subject supports the diagnosis of Diabetes Mellitus. Hematocrit Auto (Bld) [Volum e fraction]Ordered By: Rhiannon Mendez on 11-03-2022 Hematocrit (Bld) [Volume fraction] 33.6 % 34.0-46.4 [facility] Hemoglobin [Mass/volume] in BloodOrdered By: Rhiannon Mendez on 11-03-2022 Hemoglobin (Bld) [Mass/Vol] 11.7 g/dL 11.8-15.4 [facility] Leukocytes [#/volume] correc cristian for nucleated erythrocytes in Blood by Automated counOrdered By: Rhiannon Mendez on 11-03-2022 WBC corrected for nucl RBC Auto (Bld) [#/Vol] 9.1 10*3/uL 3.8-11.6 [facility] Lymphocytes Auto (Bld) [#/Vo l]Ordered By: Rhiannon Mendez on 11-03-2022 Lymphocytes (Bld) [#/Vol] 2.7 10*3/uL 1.00-4.8 [facility] Lymphocytes/100 WBC Auto (Bl d)Ordered By: Rhiannon Mendez on 11-03-2022 Lymphocytes/100 WBC (Bld) 30.1 % . [facility] MCH Auto (RBC) [Entitic mass ]Ordered By: Rhiannon Mendez on 11-03-2022 MCH (RBC) [Entitic mass] 27.9 pg 24.7-34.3 [facility] MCHC Auto (RBC) [Mass/Vol]Or dered By: Rhiannon Mendez on 11-03-2022 MCHC (RBC) [Mass/Vol] 34.8 g/dL 32.0-35.0 [facility] MCV Auto (RBC) [Entitic vol] Ordered By: Rhiannon Mendez on 11-03-2022 MCV (RBC) [Entitic vol] 80.3 fL 80-100 [facility] Monocytes Auto (Bld) [#/Vol] Ordered By: Rhiannon Mendez on 11-03-2022 Monocytes (Bld) [#/Vol] 0.8 10*3/uL 0.0-0.8 [facility] Monocytes/100 WBC Auto (Bld) Ordered By: Rhiannon Mendez on 11-03-2022 Monocytes/100 WBC (Bld) 8.3 % . [facility] Neutrophils Auto (Bld) [#/Vo l]Ordered By: Rhiannon Mendez on 11-03-2022 Neutrophils (Bld) [#/Vol] 5.3 10*3/uL 1.8-7.7 [facility] Neutrophils/100 WBC Auto (Bl d)Ordered By: Rhiannon Mendez on 11-03-2022 Neutrophils/100 WBC (Bld) 58.3 % . [facility] No Panel InformationOrdered By: Rhiannon Mendez on 11-03-2022 Estimated GFR (CKD-EPI) > 60.0 mL/Min [facility] Creatinine Clearance (Chem 145.98 [facility] Nucleated erythrocytes [Pres ence] in Blood by Automated countOrdered By: Rhiannon Mendez on 11-03-2022 Nucleated RBC Auto Ql (Bld) 0.1 /100{WBC} 0-0.5 [facility] Platelet mean volume Auto (B ld) [Entitic vol]Ordered By: Rhiannon Mendez on 11-03-2022 Platelet mean volume (Bld) [Entitic vol] 7.3 fL 6.3-10.7 [facility] Platelets Auto (Bld) [#/Vol] Ordered By: Rhiannon Mendez on 11-03-2022 Platelets (Bld) [#/Vol] 250 10*3/uL 150-450 [facility] Potassium [Moles/volume] in Serum or PlasmaOrdered By: Rhiannon Mendez on 11-03-2022 Potassium [Moles/Vol] 4.2 mmol/L 3.5-5.1 [facility] RBC Auto (Bld) [#/Vol]Ordere d By: Rhiannon Mendez on 11-03-2022 RBC (Bld) [#/Vol] 4.18 10*6/uL 3.60-5.00 [facility] Serum or plasma anion gap de terminationOrdered By: Rhiannon Mendez on 11-03-2022 Anion gap [Moles/Vol] 8.9 mmol/L 6.0-15.0 [facility] Sodium [Moles/volume] in Ser um or PlasmaOrdered By: Rhiannon Mendez on 11-03-2022 Sodium [Moles/Vol] 136 mmol/L 136-145 [facility] Urea nitrogen [Mass/volume] in Serum or PlasmaOrdered By: Rhiannon Mendez on 11-03-2022 Urea nitrogen [Mass/Vol] 13 mg/dL 7-25 [facility] WBC Auto (Bld) [#/Vol]Ordere d By: Rhiannon Mendez on 11-03-2022 WBC (Bld) [#/Vol] 9.1 10*3/uL 3.8-11.6 [facility] Alanine aminotransferase [En zymatic activity/volume] in Serum or PlasmaOrdered By: Simone Stovall on 11-02-2022 ALT [Catalytic activity/Vol] 14 U/L 7-52 [facility] Albumin [Mass/volume] in Ser um or Plasma by Bromocresol green (BCG) dye binding methoOrdered By: Simone Stovall on 11-02-2022 Albumin BCG dye [Mass/Vol] 4.1 g/dL 3.5-5.7 [facility] Alkaline phosphatase [Enzyma tic activity/volume] in Serum or PlasmaOrdered By: Simone Stovall on 11-02-2022 ALP [Catalytic activity/Vol] 78 U/L 34-104 [facility] Aspartate aminotransferase [ Enzymatic activity/volume] in Serum or PlasmaOrdered By: Simone Stovall on 11-02-2022 AST [Catalytic activity/Vol] 17 U/L 13-39 [facility] Bacterial blood cultureOrder ed By: Simone Stovall on 11-02-2022 Bacteria identified Cx Nom (Bld) NO GROWTH 5 DAYS [facility] Basophils Auto (Bld) [#/Vol] Ordered By: Simone Stovall on 11-02-2022 Basophils (Bld) [#/Vol] 0.1 10*3/uL 0.0-0.2 [facility] Basophils/100 WBC Auto (Bld) Ordered By: Simone Stovall on 11-02-2022 Basophils/100 WBC (Bld) 0.6 % . [facility] Bilirubin.total [Mass/volume ] in Serum or PlasmaOrdered By: Simone Stovall on 11-02-2022 Bilirubin [Mass/Vol] 0.3 mg/dL 0.3-1.0 [facility] C reactive protein [Mass/vol ume] in Serum or PlasmaOrdered By: Simone Stovall on 11-02-2022 CRP [Mass/Vol] 0.6 mg/dL 0.0-0.5 [facility] Calcium [Mass/volume] in Ser um or PlasmaOrdered By: Simone Stovall on 11-02-2022 Calcium [Mass/Vol] 9.2 mg/dL 8.6-10.3 [facility] Carbon dioxide, total [Moles /volume] in Serum or PlasmaOrdered By: Simone Stovall on 11-02-2022 CO2 [Moles/Vol] 24.3 mmol/L 21.0-31.0 [facility] Chloride [Moles/volume] in S claudia or PlasmaOrdered By: Simone Stovall on 11-02-2022 Chloride [Moles/Vol] 102 mmol/L 98-107 [facility] Creatinine [Mass/volume] in Serum or PlasmaOrdered By: Simone Stovall on 11-02-2022 Creatinine [Mass/Vol] 0.63 mg/dL 0.60-1.20 [facility] Eosinophils Auto (Bld) [#/Vo l]Ordered By: Simone Stovall on 11-02-2022 Eosinophils (Bld) [#/Vol] 0.3 10*3/uL 0.0-0.45 [facility] Eosinophils/100 WBC Auto (Bl d)Ordered By: Simone Stovall on 11-02-2022 Eosinophils/100 WBC (Bld) 2.9 % . [facility] Erythrocyte distribution wid th Auto (RBC) [Ratio]Ordered By: Simone Stovall on 11-02-2022 Erythrocyte distribution width (RBC) [Ratio] 13.5 % 11.9-15.3 [facility] Erythrocyte sedimentation ra te by Photometric methodOrdered By: Simone Stovall on 11-02-2022 ESR Photometric method (d) [Velocity] 30 mm/hr 0-19 [facility] Globulin Calc (S) [Mass/Vol] Ordered By: Simone Stovall on 11-02-2022 Globulin (S) [Mass/Vol] 3.0 g/dL [facility] Glucose [Mass/volume] in Ser um or PlasmaOrdered By: Simone Stovall on 11-02-2022 Glucose [Mass/Vol] 148 mg/dL 70-100 [facility] Comment on above: ADA recommended refe rence rangeRandom Glucose Reference Range is dependent on time and content of last meal. Glucose of more than 200 mg/dL in a nonstressed, ambulatory subject supports the diagnosis of Diabetes Mellitus. Hematocrit Auto (Bld) [Volum e fraction]Ordered By: Simone Stovall on 11-02-2022 Hematocrit (Bld) [Volume fraction] 36.4 % 34.0-46.4 [facility] Hemoglobin [Mass/volume] in BloodOrdered By: Simone Stovall on 11-02-2022 Hemoglobin (Bld) [Mass/Vol] 12.7 g/dL 11.8-15.4 [facility] Lactate [Moles/volume] in Se rum or PlasmaOrdered By: Simone Stovall on 03-31-2023 Lactate [Moles/Vol] 1.3 mmol/L 0.5-2.2 [facility] Leukocytes [#/volume] correc cristian for nucleated erythrocytes in Blood by Automated counOrdered By: Simone Stovall on 11-02-2022 WBC corrected for nucl RBC Auto (Bld) [#/Vol] 10.2 10*3/uL 3.8-11.6 [facility] Lymphocytes Auto (Bld) [#/Vo l]Ordered By: Simone Stovall on 11-02-2022 Lymphocytes (Bld) [#/Vol] 3.1 10*3/uL 1.00-4.8 [facility] Lymphocytes/100 WBC Auto (Bl d)Ordered By: Simone Stovall on 11-02-2022 Lymphocytes/100 WBC (Bld) 30.1 % . [facility] MCH Auto (RBC) [Entitic mass ]Ordered By: Simone Stovall on 11-02-2022 MCH (RBC) [Entitic mass] 28.0 pg 24.7-34.3 [facility] MCHC Auto (RBC) [Mass/Vol]Or dered By: Simone Stovall on 11-02-2022 MCHC (RBC) [Mass/Vol] 35.0 g/dL 32.0-35.0 [facility] MCV Auto (RBC) [Entitic vol] Ordered By: Simone Stovall on 11-02-2022 MCV (RBC) [Entitic vol] 80.1 fL 80-100 [facility] Monocyte distribution width [Entitic volume] in Blood by AutomatedOrdered By: Simone Stovall on 11-02-2022 Monocyte distribution width Auto (Bld) [Entitic vol] 17.88 % 0.00-20.00 [facility] Monocytes Auto (Bld) [#/Vol] Ordered By: Simone Stovall on 11-02-2022 Monocytes (Bld) [#/Vol] 0.7 10*3/uL 0.0-0.8 [facility] Monocytes/100 WBC Auto (Bld) Ordered By: Simone Stovall on 11-02-2022 Monocytes/100 WBC (Bld) 7.1 % . [facility] Neutrophils Auto (Bld) [#/Vo l]Ordered By: Simone Stovall on 11-02-2022 Neutrophils (Bld) [#/Vol] 6.0 10*3/uL 1.8-7.7 [facility] Neutrophils/100 WBC Auto (Bl d)Ordered By: Simone Stovall on 11-02-2022 Neutrophils/100 WBC (Bld) 59.3 % . [facility] No Panel InformationOrdered By: Simone Stovall on 11-02-2022 Estimated GFR (CKD-EPI) > 60.0 mL/Min [facility] Creatinine Clearance (Chem 122.84 [facility] Nucleated erythrocytes [Pres ence] in Blood by Automated countOrdered By: Simone Stovall on 11-02-2022 Nucleated RBC Auto Ql (Bld) 0.1 /100{WBC} 0-0.5 [facility] Platelet mean volume Auto (B ld) [Entitic vol]Ordered By: Simone Stovall on 11-02-2022 Platelet mean volume (Bld) [Entitic vol] 7.1 fL 6.3-10.7 [facility] Platelets Auto (Bld) [#/Vol] Ordered By: Simone Stovall on 11-02-2022 Platelets (Bld) [#/Vol] 270 10*3/uL 150-450 [facility] Potassium [Moles/volume] in Serum or PlasmaOrdered By: Simone Stovall on 11-02-2022 Potassium [Moles/Vol] 3.6 mmol/L 3.5-5.1 [facility] Protein [Mass/volume] in Ser um or PlasmaOrdered By: Simone Stovall on 11-02-2022 Protein [Mass/Vol] 7.1 g/dL 6.4-8.9 [facility] RBC Auto (Bld) [#/Vol]Ordere d By: Simone Stovall on 11-02-2022 RBC (Bld) [#/Vol] 4.55 10*6/uL 3.60-5.00 [facility] Serum or plasma albumin/glob ulin mass ratioOrdered By: Simone Stovall on 11-02-2022 Albumin/Globulin [Mass ratio] 1.4 {ratio} [facility] Serum or plasma anion gap de terminationOrdered By: Simone Stovall on 11-02-2022 Anion gap [Moles/Vol] 12.3 mmol/L 6.0-15.0 [facility] Sodium [Moles/volume] in Ser um or PlasmaOrdered By: Simone Stovall on 11-02-2022 Sodium [Moles/Vol] 135 mmol/L 136-145 [facility] Urea nitrogen [Mass/volume] in Serum or PlasmaOrdered By: Simone Stovall on 11-02-2022 Urea nitrogen [Mass/Vol] 18 mg/dL 7-25 [facility] WBC Auto (Bld) [#/Vol]Ordere d By: Simone Stovall on 11-02-2022 WBC (Bld) [#/Vol] 10.2 10*3/uL 3.8-11.6 [facility] 36on 10-31-2022 36 Pt called stating he r pin in hand are digging into her splint and is very painful. I spoke with Dr. Ordoñez he stated pt can come in and OT can re-mold splint. Pt agreed and will come in [facility] Clinical Supporton 3 Clinical Support [id number] Tim Mendez 1975 F Date Provider Department Center 10/31/2022 [id number] MENDEZ OT [facility] No family history on file [facility] Glucose [Mass/volume] in Ser um or PlasmaOrdered By: Michael Morley on 10-29-2022 Glucose [Mass/Vol] 95 mg/dL 70-100 [facility] Comment on above: ADA recommended refe [...] from glycated hemoglobin (Bld) [Mass/Vol] 131 mg/dL [facility] Hemoglobin A1c percentageOrd ered By: Michael Morley on 10-29-2022 HbA1c (Bld) [Mass fraction] 6.2 % 4.3-5.6 [facility] Comment on above: Increased risk for d iabetes: 5.7 - 6.4diabetes: >6.4glycemic control for adults with diabetes: <7.0 Vitamin B12 ser/plasOrdered By: Michael Morley on 10-29-2022 Cobalamin (Vitamin B12) [Mass/Vol] 489 pg/mL 180-914 [facility] HPon 10-25-2022 HP History Of Present Illness Lisa Mendez is a 47 y.o. female presenting with [...] the knee, notably suprapatellar region. Electronically signed: Chaseraman Marcos. Assessment/Plan Principal Problem: Arthritis of carpometacarpal (CMC) joint of left thumb Soft tissue interposition arthroplasty of the thumb index metacarpal bases left hand [facility] OPNOTEon 10-25-2022 OPNOTE Operative Note Patient: Lisa Mendez Date of Surgery: 10/25/2022 : 1975 Pre-operative Diagnosis: Bony impingement between the base of the thumb and index metacarpals of the left hand Post-operative Diagnosis: same Operation: soft tissue interposition arthroplasty left thumb index metacarpal bases Surgeon: Isai Ordoñez MD Supervisor Advice: Mimi Pierre MD Staff: [employer] Architect: Sheeba Thibodeaux RN Scrub Person: Winnie Weeks CST Anesthesia Type: Monitor Anesthesia Care Indications: The patient is an 47 y.o. female with pain at the base of the thumb and index metacarpals. She underwent a Deleon soft tissue arthroplasty. She has relief of [...] Complications: None Disposition: PACU Condition: stable Isai Ordoñez MD [facility] POCT GLUCOSE METER UNSOLICIT ED RESULTSon 10-25-2022 Glucose [Mass/Vol] 95 mg/dL Normal 70-105 [facility] Comment on above: Result Comment: [facility] Performed By: #### L [id number] #### [facility] ([facility]) [address] [place] [address] Alanine aminotransferase [En zymatic activity/volume] in Serum or PlasmaOrdered By: Kenny Carreno on 10-20-2022 ALT [Catalytic activity/Vol] 25 U/L 7-52 [facility] Albumin [Mass/volume] in Ser um or Plasma by Bromocresol green (BCG) dye binding methoOrdered By: Kenny Carreno on 10-20-2022 Albumin BCG dye [Mass/Vol] 4.1 g/dL 3.5-5.7 [facility] Alkaline phosphatase [Enzyma tic activity/volume] in Serum or PlasmaOrdered By: Kenny Carreno on 10-20-2022 ALP [Catalytic activity/Vol] 67 U/L 34-104 [facility] Aspartate aminotransferase [ Enzymatic activity/volume] in Serum or PlasmaOrdered By: Kenny Carreno on 10-20-2022 AST [Catalytic activity/Vol] 19 U/L 13-39 [facility] Basophils Auto (Bld) [#/Vol] Ordered By: Kenny Carreno on 10-20-2022 Basophils (Bld) [#/Vol] 0.1 10*3/uL 0.0-0.2 [facility] Basophils/100 WBC Auto (Bld) Ordered By: Kenny Carreno on 10-20-2022 Basophils/100 WBC (Bld) 0.6 % . [facility] Bilirubin.direct [Mass/volum e] in Serum or PlasmaOrdered By: Kenny Carreno on 10-20-2022 Bilirubin.direct [Mass/Vol] 0.10 mg/dL 0.03-0.18 [facility] Bilirubin.total [Mass/volume ] in Serum or PlasmaOrdered By: Kenny Carreno on 10-20-2022 Bilirubin [Mass/Vol] 0.3 mg/dL 0.3-1.0 [facility] Calcium [Mass/volume] in Ser um or PlasmaOrdered By: Kenny Carreno on 10-20-2022 Calcium [Mass/Vol] 9.1 mg/dL 8.6-10.3 [facility] Carbon dioxide, total [Moles /volume] in Serum or PlasmaOrdered By: Kenny Carreno on 10-20-2022 CO2 [Moles/Vol] 26.2 mmol/L 21.0-31.0 [facility] Chloride [Moles/volume] in S claudia or PlasmaOrdered By: Kenny Carreno on 10-20-2022 Chloride [Moles/Vol] 105 mmol/L 98-107 [facility] Creatinine [Mass/volume] in Serum or PlasmaOrdered By: Kenny Carreno on 10-20-2022 Creatinine [Mass/Vol] 0.53 mg/dL 0.60-1.20 [facility] Eosinophils Auto (Bld) [#/Vo l]Ordered By: Kenny Carreno on 10-20-2022 Eosinophils (Bld) [#/Vol] 0.1 10*3/uL 0.0-0.45 [facility] Eosinophils/100 WBC Auto (Bl d)Ordered By: Kenny Carreno on 10-20-2022 Eosinophils/100 WBC (Bld) 1.2 % . [facility] Erythrocyte distribution wid th Auto (RBC) [Ratio]Ordered By: Kenny Carreno on 10-20-2022 Erythrocyte distribution width (RBC) [Ratio] 13.6 % 11.9-15.3 [facility] Globulin Calc (S) [Mass/Vol] Ordered By: Kenny Carreno on 10-20-2022 Globulin (S) [Mass/Vol] 3.2 g/dL [facility] Glucose [Mass/volume] in Ser um or PlasmaOrdered By: Kenny Carreno on 10-20-2022 Glucose [Mass/Vol] 97 mg/dL 74-109 [facility] Comment on above: ADA recommended refe rence rangeRandom Glucose Reference Range is dependent on time and content of last meal. Glucose of more than 200 mg/dL in a nonstressed, ambulatory subject supports the diagnosis of Diabetes Mellitus. Hematocrit Auto (Bld) [Volum e fraction]Ordered By: Kenny Carreno on 10-20-2022 Hematocrit (Bld) [Volume fraction] 35.5 % 34.0-46.4 [facility] Hemoglobin [Mass/volume] in BloodOrdered By: Kenny Carreno on 10-20-2022 Hemoglobin (Bld) [Mass/Vol] 12.3 g/dL 11.8-15.4 [facility] Laboratory - Chemistry and C hemistry - challengeOrdered By: Kenny Carreno on 10-20-2022 GFR/1.73 sq M.predicted MDRD (S/P/Bld) [Vol rate/Area] mL/min/{1.73_m2} [facility] Leukocytes [#/volume] correc cristian for nucleated erythrocytes in Blood by Automated counOrdered By: Kenny Carreno on 10-20-2022 WBC corrected for nucl RBC Auto (Bld) [#/Vol] 8.8 10*3/uL 3.8-11.6 [facility] Lipase [Enzymatic activity/v olume] in Serum or PlasmaOrdered By: Kenny Carreno on 10-20-2022 Lipase [Catalytic activity/Vol] 29.0 U/L 11.0-82.0 [facility] Lymphocytes Auto (Bld) [#/Vo l]Ordered By: Kenny Carreno on 10-20-2022 Lymphocytes (Bld) [#/Vol] 3.2 10*3/uL 1.00-4.8 [facility] Lymphocytes/100 WBC Auto (Bl d)Ordered By: Kenny Carreno on 10-20-2022 Lymphocytes/100 WBC (Bld) 36.1 % . [facility] MCH Auto (RBC) [Entitic mass ]Ordered By: Kenny Carreno on 10-20-2022 MCH (RBC) [Entitic mass] 27.9 pg 24.7-34.3 [facility] MCHC Auto (RBC) [Mass/Vol]Or dered By: Kenny Carreno on 10-20-2022 MCHC (RBC) [Mass/Vol] 34.5 g/dL 32.0-35.0 [facility] MCV Auto (RBC) [Entitic vol] Ordered By: Kenny Carreno on 10-20-2022 MCV (RBC) [Entitic vol] 80.7 fL 80-100 [facility] Monocyte distribution width [Entitic volume] in Blood by AutomatedOrdered By: Kenny Carreno on 10-20-2022 Monocyte distribution width Auto (Bld) [Entitic vol] 19.04 % 0.00-20.00 [facility] Monocytes Auto (Bld) [#/Vol] Ordered By: Kenny Carreno on 10-20-2022 Monocytes (Bld) [#/Vol] 0.6 10*3/uL 0.0-0.8 [facility] Monocytes/100 WBC Auto (Bld) Ordered By: Kenny Carreno on 10-20-2022 Monocytes/100 WBC (Bld) 7.1 % . [facility] Neutrophils Auto (Bld) [#/Vo l]Ordered By: Kenny Carreno on 10-20-2022 Neutrophils (Bld) [#/Vol] 4.8 10*3/uL 1.8-7.7 [facility] Neutrophils/100 WBC Auto (Bl d)Ordered By: Kenny Carreno on 10-20-2022 Neutrophils/100 WBC (Bld) 55.0 % . [facility] No Panel InformationOrdered By: Kenny Carreno on 10-20-2022 Pharmacy Creatinine Clearance (Chem 144.98 [facility] Nucleated erythrocytes [Pres ence] in Blood by Automated countOrdered By: Kenny Carreno on 10-20-2022 Nucleated RBC Auto Ql (Bld) 0.1 /100{WBC} 0-0.5 [facility] Platelet mean volume Auto (B ld) [Entitic vol]Ordered By: Kenny Carreno on 10-20-2022 Platelet mean volume (Bld) [Entitic vol] 7.2 fL 6.3-10.7 [facility] Platelets Auto (Bld) [#/Vol] Ordered By: Kenny Carreno on 10-20-2022 Platelets (Bld) [#/Vol] 247 10*3/uL 150-450 [facility] Potassium [Moles/volume] in Serum or PlasmaOrdered By: Kenny Carreno on 10-20-2022 Potassium [Moles/Vol] 3.4 mmol/L 3.5-5.1 [facility] Protein [Mass/volume] in Ser um or PlasmaOrdered By: Kenny Carreno on 10-20-2022 Protein [Mass/Vol] 7.3 g/dL 6.4-8.9 [facility] RBC Auto (Bld) [#/Vol]Ordere d By: Kenny Carreno on 10-20-2022 RBC (Bld) [#/Vol] 4.40 10*6/uL 3.60-5.00 [facility] Serum or plasma albumin/glob ulin mass ratioOrdered By: Kenny Carreno on 10-20-2022 Albumin/Globulin [Mass ratio] 1.3 {ratio} [facility] Serum or plasma anion gap de terminationOrdered By: Kenny Carreno on 10-20-2022 Anion gap [Moles/Vol] 10.2 mmol/L 6.0-15.0 [facility] Serum or plasma non-glucuron idated bilirubin measurement (mass/volume)Ordered By: Kenny Carreno on 10-20-2022 Bilirubin.indirect [Mass/Vol] 0.2 mg/dL [facility] Sodium [Moles/volume] in Ser um or PlasmaOrdered By: Kenny Carreno on 10-20-2022 Sodium [Moles/Vol] 138 mmol/L 136-145 [facility] Urea nitrogen [Mass/volume] in Serum or PlasmaOrdered By: Kenny Carreno on 10-20-2022 Urea nitrogen [Mass/Vol] 11 mg/dL 7-25 [facility] WBC Auto (Bld) [#/Vol]Ordere d By: Kenny Carreno on 10-20-2022 WBC (Bld) [#/Vol] 8.8 10*3/uL 3.8-11.6 [facility] Automated erythrocytes count in urine sediment (number/area)Ordered By: PROVIDER TEMP on 10-19-2022 RBC Auto (Urine sed) [#/Area] Innumerable [HPF] 0-4 [facility] Automated leukocytes count i n urine sediment (number/area)Ordered By: PROVIDER TEMP on 10-19-2022 WBC Auto (Urine sed) [#/Area] 5-9 [HPF] 0-4 [facility] Automated urine hyaline cast s count (number/volume)Ordered By: PROVIDER TEMP on 10-19-2022 Hyaline casts Auto (U) [#/Vol] None seen [LPF] 0-1 [facility] Automated urine sediment allison cium oxalate crystal count by microscopy (number/high powOrdered By: PROVIDER TEMP on 10-19-2022 Calcium oxalate crystals LM.HPF (Urine sed) [#/Area] 1+ [HPF] [facility] Bilirubin Test strip Ql (U)O rdered By: PROVIDER TEMP on 10-19-2022 Bilirubin Ql (U) Negative Negative [facility] Casts typing in urine sedime nt by light microscopyOrdered By: PROVIDER TEMP on 10-19-2022 Casts LM Nom (Urine sed) None seen [LPF] None Seen [facility] Color Auto (U)Ordered By: KARIS KAHN on 10-19-2022 Color (U) [place] Yellow [facility] HCG ( test) IA.rapi d Ql (U)Ordered By: Kenny Carreno on 10-19-2022 HCG ( test) Ql (U) Negative [facility] Ketones Auto test strip (U) [Mass/Vol]Ordered By: PROVIDER TEMP on 10-19-2022 Ketones (U) [Mass/Vol] Negative Negative [facility] Nitrite Test strip Ql (U)Ord ered By: PROVIDER TEMP on 10-19-2022 Nitrite Ql (U) Negative Negative [facility] Protein Auto test strip (U) [Mass/Vol]Ordered By: PROVIDER TEMP on 10-19-2022 Protein (U) [Mass/Vol] 100 mg/dL Negative [facility] Specific gravity Auto test s trip (U) [Rel density]Ordered By: PROVIDER TEMP on 10-19-2022 Specific gravity (U) [Rel density] 1.022 1.001-1.03 0 [facility] Squamous epithelial cells de tection in urine sediment by light microscopyOrdered By: PROVIDER TEMP on 10-19-2022 Epithelial cells.squamous LM Ql (Urine sed) 20-30 [HPF] 0-2 [facility] Urine bacteria detection by automated methodOrdered By: PROVIDER TEMP on 10-19-2022 Bacteria Auto Ql (U) None seen None Seen [facility] Urine clarity by refractomet ry automatedOrdered By: PROVIDER TEMP on 10-19-2022 Clarity Refractometry automated (U) Turbid Clear [facility] Urine culture routineOrdered By: PROVIDER TEMP on 10-19-2022 Bacteria identified Cx Nom (U) 2 Days [facility] Urine glucose measurement by automated test strip (mass/volume)Ordered By: PROVIDER TEMP on 10-19-2022 Glucose Auto test strip (U) [Mass/Vol] Normal mg/dL Normal [facility] Urine hemoglobin detection b y automated test stripOrdered By: PROVIDER TEMP on 10-19-2022 Hemoglobin Auto test strip Ql (U) 3+ Negative [facility] Urine leukocyte esterase det ection by automated test stripOrdered By: PROVIDER TEMP on 10-19-2022 Leukocyte esterase Auto test strip Ql (U) 2+ Negative [facility] Urobilinogen Auto test strip (U) [Mass/Vol]Ordered By: PROVIDER TEMP on 10-19-2022 Urobilinogen (U) [Mass/Vol] Normal mg/dL Normal [facility] Yeast detection in urine sed iment by light microscopyOrdered By: PROVIDER TEMP on 10-19-2022 Yeast LM Ql (Urine sed) 1+ [HPF] None Seen [facility] pH Auto test strip (U)Ordere d By: PROVIDER TEMP on 10-19-2022 pH (U) 5.5 [pH] 5.0-9.0 [facility] POINT OF CARE GLUCOSEon 10-03 Glucose [Mass/Vol] 92 mg/dL Normal 74-106 [facility] Comment on above: Performed By: #### P OCGLUC ####[facility] [address] [place], [place] [address]DeDr. Ab Fry XR KUB 1 VIEWon 10-18-2022 [...] Date: 2022-10-18 07:18 Normal [facility] CBC AUTO DIFFon 10-08-2022 BASO # 0.0 103/ul Normal 0.0-0.1 [facility] Comment on above: Performed By: #### C BC #### [facility] [address] [place] [address] Dr. Ab Fry Basophils/100 WBC (Bld) 0.5 % Normal 0.2-2.0 [facility] Comment on above: Performed By: #### C BC #### [facility] [address] [place] [address] Dr. Ab Fry EO # 0.2 103/ul Normal 0.0-0.7 [facility] Comment on above: Performed By: #### C BC #### [facility] [address] [address] [address] Ab Fry Eosinophils/100 WBC (Bld) 3.5 % Normal 0.9-7.0 [facility] Comment on above: Performed By: #### C BC #### [facility] [address] [address] [address] Ab Fry Erythrocyte distribution width (RBC) [Ratio] 13.1 % Normal 11.0-15.0 [facility] Comment on above: Performed By: #### C BC #### [facility] [address] [address] [address] Ab Fry Hematocrit (Bld) [Volume fraction] 34.7 % Critically low 36.0-48.0 [facility] Comment on above: Performed By: #### C BC #### [facility] [address] [place] [address] Dr. Ab Fry Hemoglobin (Bld) [Mass/Vol] 11.7 g/dL Critically low 12.0-16.0 [facility] Comment on above: Performed By: #### C BC #### [facility] [address] [place] [address] Dr. Ab Fry IG # 0.10 10e3/ul Critically high 0.00-0.03 [facility] Comment on above: Performed By: #### C BC #### [facility] [address] [place] [address] Dr. Ab Fry IG % 1.6 % Critically high 0.0-0.5 [facility] Comment on above: Performed By: #### C BC #### [facility] [address] [place] [address] Dr. Ab Fry LYMPH # 1.5 103/ul Normal 1.2-3.8 [facility] Comment on above: Performed By: #### C BC #### [facility] [address] [place] [address] Dr. Ab Fry Lymphocytes/100 WBC (Bld) 23.6 % Normal 20.5-60.0 [facility] Comment on above: Performed By: #### C BC #### [facility] [address] [place] [address] Dr. Ab Fry MANUAL DIFF REQ NO Normal [facility] Comment on above: Performed By: #### C BC #### [facility] [address] [place] [address] Dr. Ab Fry MCH (RBC) [Entitic mass] 27.5 pg Normal 26.7-34.0 [facility] Comment on above: Performed By: #### C BC #### [facility] [address] [place] [address] Dr. Ab Fry MCHC (RBC) [Mass/Vol] 33.7 g/dL Normal 29.9-35.2 [facility] Comment on above: Performed By: #### C BC #### [facility] [address] [place] [address] Dr. Ab Fry MCV (RBC) [Entitic vol] 81.6 fL Normal 81.0-99.0 [facility] Comment on above: Performed By: #### C BC #### [facility] [address] [place] [address] Dr. Ab Fry MONO # 0.8 103/ul Normal 0.3-0.8 [facility] Comment on above: Performed By: #### C BC #### [facility] [address] [place] [address] Dr. Ab Fry Monocytes/100 WBC (Bld) 12.2 % Critically high 1.7-12.0 [facility] Comment on above: Performed By: #### C BC #### [facility] [address] [place] [address] Dr. Ab Fry NEUT # 3.7 103/ul Normal 1.4-6.5 [facility] Comment on above: Performed By: #### C BC #### [facility] [address] [place] [address] Dr. Ab Fry Neutrophils/100 WBC (Bld) 58.6 % Normal 43.0-75.0 [facility] Comment on above: Performed By: #### C BC #### [facility] [address] [place] [address] Dr. Ab Fry Platelet mean volume (Bld) [Entitic vol] 8.8 fL Critically low 9.5-13.5 [facility] Comment on above: Performed By: #### C BC #### [facility] [address] [place] [address] Dr. Ab Fry PLT 233 103/ul Normal 150-450 [facility] Comment on above: Performed By: #### C BC #### [facility] [address] [place] [address] Dr. Ab Fry RBC 4.25 106/ul Normal 4.20-5.40 [facility] Comment on above: Performed By: #### C BC #### [facility] [address] [address] [address] Ab Fry WBC 6.2 103/ul Normal 4.0-11.0 [facility] Comment on above: Performed By: #### C BC #### [facility] [address] [address] [address] Ab Fry PROF CHEM 8 (BAS METB)on Anion gap [Moles/Vol] 9.7 mmol/L Normal [facility] Comment on above: Performed By: #### B MP #### [facility] [address] [address] [address] Ab Fry Calcium [Mass/Vol] 8.8 mg/dL Normal 8.5-10.1 [facility] Comment on above: Performed By: #### B MP #### [facility] [address] [address] [address] Ab Fry Chloride [Moles/Vol] 107 mmol/L Normal 98-107 [facility] Comment on above: Performed By: #### B MP #### [facility] [address] [address] [address] Ab Fry CO2 [Moles/Vol] 29.9 mmol/L Normal 21.0-32.0 [facility] Comment on above: Performed By: #### B MP #### [facility] [address] [address] [address] Ab Fry Creatinine [Mass/Vol] 0.43 mg/dL Critically low 0.55-1.02 [facility] Comment on above: Performed By: #### B MP #### [facility] [address] [address] [address] Ab Fry EGFR-AF [place] >60 Normal >=60 [facility] Comment on above: Performed By: #### B MP #### [facility] [address] [address] [address] Ab Fry EGFR-NON AF [place] >60 Normal >=60 [facility] Comment on above: Performed By: #### B MP #### [facility] [address] [address] [address] Ab Fry Glucose [Mass/Vol] 102 mg/dL Normal 74-106 [facility] Comment on above: Performed By: #### B MP #### [facility] [address] [address] [address] Ab Fry Potassium [Moles/Vol] 3.6 mmol/L Normal 3.5-5.1 [facility] Comment on above: Performed By: #### B MP #### [facility] [address] [address] [address] Ab Fry Sodium [Moles/Vol] 143 mmol/L Normal 136-145 [facility] Comment on above: Performed By: #### B MP #### [facility] [address] [address] [address] Ab Fry Urea nitrogen [Mass/Vol] 10.0 mg/dL Normal 7.0-18.0 [facility] Comment on above: Performed By: #### B MP #### [facility] [address] [address] [address] Ab Fry Urea nitrogen/Creatinine [Mass ratio] 23.3 mg/mg Normal [facility] Comment on above: Performed By: #### B MP #### [facility] [address] [address] [address] Ab Fry PROTIMEon 10-08-2022 INR Coag (PPP) [Relative time] 0.94 {INR} Normal [facility] Comment on above: Performed By: #### P TT, PT #### [facility] [address] [place] [address] Dr. Ab Fry INR GUIDELINES SEE BELOW Normal [facility] Comment on above: Result Comment: ALEXIS RED INR: 2.0 - 3.0 CONDITIONS NOT LISTED BELOW 2.5 - 3.5 FOR PROSTHETIC HEART VALVE REPLACEMENT 2.5 - 3.5 RECURRENT THROMBOSIS Performed By: #### P TT, PT #### [facility] [address] [place] [address] Dr. Ab Fry PT Coag (PPP) [Time] 10.0 s Normal 9.0-11.6 [facility] Comment on above: Performed By: #### P TT, PT #### [facility] [address] [place], [place] [address] Dr. Ab Fry PTTon 10-08-2022 aPTT Coag (Bld) [Time] 33.7 s Normal 22.3-36.2 [facility] Comment on above: Performed By: #### P TT, PT ####[facility] [address] [place], [place] [address]FuDr. Ab Fry 23-serotype Streptococcus pn eumoniae antibody panelOrdered By: Jorgito Sanchez on 10-03-2022 S. pneumoniae 23 types IgG panel (S) [Mass/Vol] 4.5 ug/mL >1.3 [facility] IgA [Mass/volume] in Serum o r PlasmaOrdered By: Jorgito Sanchez on 10-03-2022 IgA [Mass/Vol] 366 mg/dL 87-352 [facility] IgG [Mass/volume] in Serum o r PlasmaOrdered By: Jorgito Sanchez on 10-03-2022 IgG [Mass/Vol] 1369 mg/dL [phone] [facility] IgM [Mass/volume] in Serum o r PlasmaOrdered By: Jorgito Sacnhez on 10-03-2022 IgM [Mass/Vol] 265 mg/dL 26-217 [facility] Comment on above: Performed at: [address] [id number] Director: Alireza Kaufman PhD, Phone: [phone] No Panel InformationOrdered By: Jorgiot Sanchez on 10-03-2022 Pneumococcal Type 1 Antibody 0.8 ug/mL >1.3 [facility] Pneumococcal Type 12F Antibody 1.1 ug/mL >1.3 [facility] Pneumococcal Type 14 Antibody 14.7 ug/mL >1.3 [facility] Pneumococcal Type 15B Antibody 1.3 ug/mL >1.3 [facility] Pneumococcal Type 17F Antibody 0.4 ug/mL >1.3 [facility] Pneumococcal Type 18C Antibody 0.1 ug/mL >1.3 [facility] Pneumococcal Type 19A Antibody 1.6 ug/mL >1.3 [facility] Pneumococcal Type 19F Antibody 11.3 ug/mL >1.3 [facility] Pneumococcal Type 2 Antibody >20.7 ug/mL >1.3 [facility] Pneumococcal Type 20 Antibody >38.2 ug/mL >1.3 [facility] Pneumococcal Type 22F Antibody >26.0 ug/mL >1.3 [facility] Pneumococcal Type 23F Antibody 1.1 ug/mL >1.3 [facility] Pneumococcal Type 3 Antibody 0.9 ug/mL >1.3 [facility] Pneumococcal Type 4 Antibody 0.2 ug/mL >1.3 [facility] Pneumococcal Type 5 Antibody 11.6 ug/mL >1.3 [facility] Pneumococcal Type 6B Antibody 7.2 ug/mL >1.3 [facility] Pneumococcal Type 7F Antibody 6.0 ug/mL >1.3 [facility] Pneumococcal Type 8 Antibody 8.8 ug/mL >1.3 [facility] Pneumococcal Type 9N Antibody 1.1 ug/mL >1.3 [facility] Pneumococcal Type 9V Antibody 0.5 ug/mL >1.3 [facility] S. pneumoniae Type 34 (10A) IgG Ab 0.3 ug/mL >1.3 [facility] S. pneumoniae Type 70 (33F) IgG Ab >10.1 ug/mL >1.3 [facility] Comment on above: *This test was devel oped and its performancecharacteristics determined by [employer]. It has notbeen cleared or approved by the U.S. Food and DrugAdministration.Performed at: [facility] [id number] [address] [id number] Director: TERESA Kelly PhD, Phone: [phone] POINT OF CARE GLUCOSEon Glucose [Mass/Vol] 92 mg/dL Normal 74-106 [facility] Comment on above: Performed By: #### P OCGLUC #### [facility] [address] [place] [address] Dr. Ab Fry XR lumbar spine AP/LAT/FLX/E XTon 09-05-2022 XR lumbar spine AP/LAT/FLX/EXT [facility] [employer] Other XR lumbar spine AP/LAT/FLX/EXT [facility] [employer] Other XR lumbar spine AP/LAT/FLX/EXT [address] [place] [address] [employer] Other XR lumbar spine AP/LAT/FLX/[place] [address] [employer] Other XR lumbar spine AP/LAT/FLX/EXT XRay Report [employer] Other XR lumbar spine AP/LAT/FLX/EXT Signed [employer] Other XR lumbar spine AP/LAT/FLX/EXT Patient: Lisa Mendez MR#: [id number] [employer] Other XR lumbar spine AP/LAT/FLX/EXT [facility] [employer] Other XR lumbar spine AP/LAT/FLX/EXT : 1975 Acct:[id number] [employer] Other XR lumbar spine AP/LAT/FLX/EXT Age/Sex: 47 / F ADM Date: 09/05/22 [employer] Other XR lumbar spine AP/LAT/FLX/EXT Loc: [facility] Room: Type: [facility] [employer] Other XR lumbar spine AP/LAT/FLX/EXT Attending Dr: Kenny Villarreal MD [employer] Other XR lumbar spine AP/LAT/FLX/EXT Copies to: Kenny Villarreal MD [employer] Other XR lumbar spine AP/LAT/FLX/EXT Ordering Provider: Kenny Villarreal MD [employer] Other XR lumbar spine AP/LAT/FLX/EXT Date of Service: 09/05/22 [employer] Other XR lumbar spine AP/LAT/FLX/EXT XR/XR lumbar spine AP/LAT/FLX/EXT: Osteoarthritis of lumbosacral spine [employer] Other XR lumbar spine AP/LAT/FLX/EXT without myelopathy [employer] Other XR lumbar spine AP/LAT/FLX/EXT XR lumbar spine AP/LAT/FLX/EXT 09/05/2022 11:28 AM [employer] Other XR lumbar spine AP/LAT/FLX/EXT SIGNS AND SYMPTOMS: Persistent low back pain [employer] Other XR lumbar spine AP/LAT/FLX/EXT PROTOCOLS: Frontal, lateral, and flexion-extension views of the lumbar spine [employer] Other XR lumbar spine AP/LAT/FLX/EXT COMPARISON: 08/01/2021 [employer] [facility] [employer] Other XR lumbar spine AP/LAT/FLX/EXT FINDINGS: [employer] Other XR lumbar spine AP/LAT/FLX/EXT The alignment, development and bony structures are normal. There is no fracture or destructive [employer] Other XR lumbar spine AP/LAT/FLX/EXT lesion. [employer] Other XR lumbar spine AP/LAT/FLX/EXT There is mild disc height loss at L5-S1. Facet hypertrophy is present at L4-5 and L5-S1. There is no [employer] Other XR lumbar spine AP/LAT/FLX/EXT pathologic movement on flexion or extension. [employer] Other XR lumbar spine AP/LAT/FLX/EXT The sacrum and sacroiliac joints are normal. [employer] Other XR lumbar spine AP/LAT/FLX/EXT XR/XR lumbar spine AP/LAT/FLX/EXT [employer] Other XR lumbar spine AP/LAT/FLX/EXT IMPRESSION: [employer] Other XR lumbar spine AP/LAT/FLX/EXT No fracture or subluxation. [employer] Other XR lumbar spine AP/LAT/FLX/EXT There is mild disc height loss at L5-S1. Facet hypertrophy is present at L4-5 and L5-S1. [employer] Other XR lumbar spine AP/LAT/FLX/EXT There is no pathologic movement on flexion or extension. [employer] Other XR lumbar spine AP/LAT/FLX/EXT Impression dictated by: Mode Handy M.D.09/05/2022 2:37 PM [employer] Other XR lumbar spine AP/LAT/FLX/EXT Dictation Location: [place] [address] [employer] Other XR lumbar spine AP/LAT/FLX/EXT Transcribed By: HARLAN 09/05/22 [facility] [employer] Other XR lumbar spine AP/LAT/FLX/EXT Dictated By: Mode Handy II, MD 09/05/22 [facility] [employer] Other XR lumbar spine AP/LAT/FLX/EXT Signed By: [employer] Other XR lumbar spine AP/LAT/FLX/EXT 09/05/22 [facility] [employer] Other CBC AUTO DIFFon 09-03-2022 BASO # 0.0 103/ul Normal 0.0-0.1 [facility] Comment on above: Performed By: #### C BC #### [facility] [address] [place] [address] Dr. Ab Fry Basophils/100 WBC (Bld) 0.5 % Normal 0.2-2.0 [facility] Comment on above: Performed By: #### C BC #### [facility] [address] [place] [address] Dr. Ab Fry EO # 0.2 103/ul Normal 0.0-0.7 [facility] Comment on above: Performed By: #### C BC #### [facility] [address] [place] [address] Dr. Ab Fry Eosinophils/100 WBC (Bld) 3.6 % Normal 0.9-7.0 [facility] Comment on above: Performed By: #### C BC #### [facility] [address] [place] [address] Dr. Ab Fry Erythrocyte distribution width (RBC) [Ratio] 12.9 % Normal 11.0-15.0 [facility] Comment on above: Performed By: #### C BC #### [facility] [address] [place] [address] Dr. Ab Fry Hematocrit (Bld) [Volume fraction] 35.4 % Critically low 36.0-48.0 [facility] Comment on above: Performed By: #### C BC #### [facility] [address] [place] [address] Dr. Ab Fry Hemoglobin (Bld) [Mass/Vol] 12.2 g/dL Normal 12.0-16.0 [facility] Comment on above: Performed By: #### C BC #### [facility] [address] [place] [address] Dr. Ab Fry IG # 0.03 10e3/ul Normal 0.00-0.03 [facility] Comment on above: Performed By: #### C BC #### [facility] [address] [place] [address] Dr. Ab Fry IG % 0.5 % Normal 0.0-0.5 [facility] Comment on above: Performed By: #### C BC #### [facility] [address] [place] [address] Dr. Ab Fry LYMPH # 1.8 103/ul Normal 1.2-3.8 [facility] Comment on above: Performed By: #### C BC #### [facility] [address] [place] [address] Dr. Ab Fry Lymphocytes/100 WBC (Bld) 31.6 % Normal 20.5-60.0 [facility] Comment on above: Performed By: #### C BC #### [facility] [address] [place] [address] Dr. Ab Fry MANUAL DIFF REQ NO Normal [facility] Comment on above: Performed By: #### C BC #### [facility] [address] [place] [address] Dr. Ab Fry MCH (RBC) [Entitic mass] 27.5 pg Normal 26.7-34.0 [facility] Comment on above: Performed By: #### C BC #### [facility] [address] [place] [address] Dr. Ab Fry MCHC (RBC) [Mass/Vol] 34.5 g/dL Normal 29.9-35.2 [facility] Comment on above: Performed By: #### C BC #### [facility] [address] [place] [address] Dr. Ab Fry MCV (RBC) [Entitic vol] 79.7 fL Critically low 81.0-99.0 [facility] Comment on above: Performed By: #### C BC #### [facility] [address] [place] [address] Dr. Ab Fry MONO # 0.8 103/ul Normal 0.3-0.8 [facility] Comment on above: Performed By: #### C BC #### [facility] [address] [place] [address] Dr. Ab Fry Monocytes/100 WBC (Bld) 14.6 % Critically high 1.7-12.0 [facility] Comment on above: Performed By: #### C BC #### [facility] [address] [place] [address] Dr. Ab Fry NEUT # 2.7 103/ul Normal 1.4-6.5 [facility] Comment on above: Performed By: #### C BC #### [facility] [address] [place] [address] Dr. Ab Fry Neutrophils/100 WBC (Bld) 49.2 % Normal 43.0-75.0 [facility] Comment on above: Performed By: #### C BC #### [facility] [address] [place] [address] Dr. Ab Fry Platelet mean volume (Bld) [Entitic vol] 8.8 fL Critically low 9.5-13.5 [facility] Comment on above: Performed By: #### C BC #### [facility] [address] [place] [address] Dr. Ab Fry PLT 211 103/ul Normal 150-450 [facility] Comment on above: Performed By: #### C BC #### [facility] [address] [place] [address] Dr. Ab Fry RBC 4.44 106/ul Normal 4.20-5.40 [facility] Comment on above: Performed By: #### C BC #### [facility] [address] [place] [address] Dr. Ab Fry WBC 5.5 103/ul Normal 4.0-11.0 [facility] Comment on above: Performed By: #### C BC #### [facility] [address] [place] [address] Dr. Ab Fry PROF CHEM 8 (BAS METB)on Anion gap [Moles/Vol] 9.3 mmol/L Normal [facility] Comment on above: Performed By: #### B MP #### [facility] [address] [place] [address] Dr. Ab Fry Calcium [Mass/Vol] 8.8 mg/dL Normal 8.5-10.1 [facility] Comment on above: Performed By: #### B MP #### [facility] [address] [place] [address] Dr. Ab Fry Chloride [Moles/Vol] 105 mmol/L Normal 98-107 [facility] Comment on above: Performed By: #### B MP #### [facility] [address] [place] [address] Dr. Ab Fry CO2 [Moles/Vol] 31.1 mmol/L Normal 21.0-32.0 [facility] Comment on above: Performed By: #### B MP #### [facility] [address] [address] [address] Ab Fry Creatinine [Mass/Vol] 0.54 mg/dL Critically low 0.55-1.02 [facility] Comment on above: Performed By: #### B MP #### [facility] [address] [address] [address] Ab Fry EGFR-AF [place] >60 Normal >=60 [facility] Comment on above: Performed By: #### B MP #### [facility] [address] [address] [address] Ab Fry EGFR-NON AF [place] >60 Normal >=60 [facility] Comment on above: Performed By: #### B MP #### [facility] [address] [address] [address] Ab Fry Glucose [Mass/Vol] 115 mg/dL Critically high 74-106 [facility] Comment on above: Performed By: #### B MP #### [facility] [address] [address] [address] Ab Fry Potassium [Moles/Vol] 3.4 mmol/L Critically low 3.5-5.1 [facility] Comment on above: Performed By: #### B MP #### [facility] [address] [address] [address] Ab Fry Sodium [Moles/Vol] 142 mmol/L Normal 136-145 [facility] Comment on above: Performed By: #### B MP #### [facility] [address] [address] [address] Ab Fry Urea nitrogen [Mass/Vol] 12.0 mg/dL Normal 7.0-18.0 [facility] Comment on above: Performed By: #### B MP #### [facility] [address] [address] [address] Ab Fry Urea nitrogen/Creatinine [Mass ratio] 22.2 mg/mg Normal [facility] Comment on above: Performed By: #### B MP #### [facility] [address] [place] [address] Dr. Ab Fry Urinalysis - AUTOMATEDon Appearance (U) clear [employer] Other Bilirubin Ql (U) Negative [employer] Other Color (U) dark yellow [employer] Other Glucose Ql (U) Negative [employer] Other Hemoglobin Ql (U) Negative [employer] Other Ketones Ql (U) Negative [employer] Other Leukocyte esterase Test strip Ql (U) Negative [employer] Other Nitrite Ql (U) Negative [employer] Other pH (U) 5.0 [pH] [employer] Other Protein Ql (U) Negative [employer] Other Specific gravity (U) [Rel density] 1.030 [employer] Other Urobilinogen (U) [Mass/Vol] 0.2 mg/dL [employer] Other Urinalysis - AUTOMATED No rt [employer] Other 23-serotype Streptococcus pn eumoniae antibody panelOrdered By: Jorgito Sanchez on 08-09-2022 S. pneumoniae 23 types IgG panel (S) [Mass/Vol] 2.6 ug/mL >1.3 [facility] IgA [Mass/volume] in Serum o r PlasmaOrdered By: Jorgito Sanchez on 08-09-2022 IgA [Mass/Vol] 336 mg/dL 87-352 [facility] IgG [Mass/volume] in Serum o r PlasmaOrdered By: Jorgito Sanchez on 08-09-2022 IgG [Mass/Vol] 1328 mg/dL 586-1602 [facility] IgM [Mass/volume] in Serum o r PlasmaOrdered By: Jorgito Sanchez on 08-09-2022 IgM [Mass/Vol] 260 mg/dL 26-217 [facility] Comment on above: Performed at: [address] [id number] Director: Alireza Kaufman PhD, Phone: [phone] Immunoglobulins A/G/M, Qn, S litzy 08-09-2022 Immunoglobulins A/G/M, Qn, Ser 1328 mg/dL 586-1602 mg/dL [employer] Other Immunoglobulins A/G/M, Qn, Ser 336 mg/dL 87-352 mg/dL [employer] Other Immunoglobulins A/G/M, Qn, Ser 260 mg/dL High 26-217 mg/dL [employer] Other No Panel InformationOrdered By: Jorgito Sanchez on 08-09-2022 Pneumococcal Type 1 Antibody 0.3 ug/mL >1.3 [facility] Pneumococcal Type 12F Antibody 0.1 ug/mL >1.3 [facility] Pneumococcal Type 14 Antibody 11.9 ug/mL >1.3 [facility] Pneumococcal Type 15B Antibody 0.7 ug/mL >1.3 [facility] Pneumococcal Type 17F Antibody 0.2 ug/mL >1.3 [facility] Pneumococcal Type 18C Antibody <0.1 ug/mL >1.3 [facility] Pneumococcal Type 19A Antibody 1.2 ug/mL >1.3 [facility] Pneumococcal Type 19F Antibody 3.6 ug/mL >1.3 [facility] Pneumococcal Type 2 Antibody 6.1 ug/mL >1.3 [facility] Pneumococcal Type 20 Antibody 11.9 ug/mL >1.3 [facility] Pneumococcal Type 22F Antibody 3.1 ug/mL >1.3 [facility] Pneumococcal Type 23F Antibody 1.1 ug/mL >1.3 [facility] Pneumococcal Type 3 Antibody 1.0 ug/mL >1.3 [facility] Pneumococcal Type 4 Antibody 0.2 ug/mL >1.3 [facility] Pneumococcal Type 5 Antibody 0.9 ug/mL >1.3 [facility] Pneumococcal Type 6B Antibody 0.1 ug/mL >1.3 [facility] Pneumococcal Type 7F Antibody 1.2 ug/mL >1.3 [facility] Pneumococcal Type 8 Antibody 2.9 ug/mL >1.3 [facility] Pneumococcal Type 9N Antibody 0.7 ug/mL >1.3 [facility] Pneumococcal Type 9V Antibody 0.1 ug/mL >1.3 [facility] S. pneumoniae Type 34 (10A) IgG Ab <0.1 ug/mL >1.3 [facility] S. pneumoniae Type 70 (33F) IgG Ab 5.8 ug/mL >1.3 [facility] Comment on above: *This test was devel oped and its performancecharacteristics determined by [employer]. It has notbeen cleared or approved by the U.S. Food and DrugAdministration.Performed at: [facility] [employer] [id number] [address] [id number] Director: TERESA Kelly PhD, Phone: [phone] XR chest 2V*on 07-31-2022 SARS-CoV-2 (COVID-19) RNA DEBBIE+probe Ql (Unsp spec) CLINICAL HISTORY: Cough, shortness of breath, chest pain, rhinorrhea and hemoptysis. COVID + one [employer] [facility] [employer] Other XR chest 2V* [facility] [employer] Other XR chest 2V* [facility] [facility] [employer] Other XR chest 2V* [address] [facility] [employer] Other XR chest 2V* [place] [address] [facility] Other XR chest 2V* XRay Report [employer] [facility] [employer] Other XR chest 2V* Signed [employer] Other XR chest 2V* Patient: Tim Mendez MR#: [id number] [employer] Other XR chest 2V* 287 [employer] Other XR chest 2V* : 1975 Acct:[id number] [employer] Other XR chest 2V* Age/Sex: 47 / F ADM Date: 07/31/22 [employer] Other XR chest 2V* Loc: XD Room: Type: [facility] [employer] Other XR chest 2V* Attending Dr: Felecia Sanchez DO [employer] Other XR chest 2V* Copies to: Jorgito Sanchez DO [employer] Other XR chest 2V* Ordering Provider: Jorgito Sanchez DO [employer] Other XR chest 2V* Date of Service: 07/31/22 [employer] Other XR chest 2V* XR/XR chest 2V*: Acute cough [employer] Other XR chest 2V* PA AND LATERAL CHEST: N [employer] Other XR chest 2V* week ago. [employer] Other XR chest 2V* COMPARISON: 07/09/2022 N [employer] Other XR chest 2V* There is no focal parenchymal consolidation, effusion or pneumothorax. The cardiac, hilar and [employer] Other XR chest 2V* mediastinal silhouet leila are within normal limits. There is no vascular congestion. The [employer] Other XR chest 2V* visualized bony thor ax is intact. There is levoscoliotic curvature and endplate spurring. [employer] Other XR chest 2V* X R/XR chest 2V* [employer] Other XR chest 2V* IMPRESSION: [employer] Other XR chest 2V* NO ACUTE CARDIOPULMO NARY ABNORMALITY. [employer] Other XR chest 2V* Impression dictated by: Liz Rubi M.D.07/31/2022 6:22 PM [employer] Other XR chest 2V* Dictation Location: [place] [address] [employer] Other XR chest 2V* Transcribed By: HARLAN 07/31/22 [facility] [employer] Other XR chest 2V* Dictated By: Liz Rubi MD 07/31/22 [facility] [employer] Other XR chest 2V* Signed By: [employer] Other XR chest 2V* 07/31/22 [facility] [employer] [facility] [employer] Other COVID CepheidOrdered By: Felice Reed on 07-22-2022 SARS-CoV-2 (COVID-19) Ab IA Ql Positive Negative [facility] Comment on above: This is a duplicate [facility] Xpert Xpress CoV-2/Flu/RSV Plus RNA by RT-PCR result to be used for statistical tracking purpose only. SARS-CoV-2 (COVID-19) RNA DEBBIE+probe Ql (Unsp spec) [facility] Urine culture routineOrdered By: Kelby Ma on 07-01-2022 Bacteria identified Cx Nom (U) 2 Days [facility] Albumin [Mass/volume] in Ser um or PlasmaOrdered By: Kelby Ma on 06-29-2022 Albumin [Mass/Vol] 3.3 g/dL 3.2-5.5 [facility] Automated erythrocytes count in urine sediment (number/area)Ordered By: Kelby Ma on 06-29-2022 RBC Auto (Urine sed) [#/Area] 5-9 [HPF] 0-4 [facility] Automated leukocytes count i n urine sediment (number/area)Ordered By: Kelby Ma on 06-29-2022 WBC Auto (Urine sed) [#/Area] 3-4 [HPF] 0-4 [facility] Automated urine hyaline cast s count (number/volume)Ordered By: Kelby Ma on 06-29-2022 Hyaline casts Auto (U) [#/Vol] None seen [LPF] 0-1 [facility] Basophils Auto (Bld) [#/Vol] Ordered By: Kelby Ma on 06-29-2022 Basophils (Bld) [#/Vol] 0.0 10*3/uL 0.0-0.2 [facility] Basophils/100 WBC Auto (Bld) Ordered By: eKlby Ma on 06-29-2022 Basophils/100 WBC (Bld) 0.3 % . [facility] Bilirubin Test strip Ql (U)O rdered By: Kelby Ma on 06-29-2022 Bilirubin Ql (U) Negative Negative [facility] COVID CepheidOrdered By: Cheryl Sol on 06-29-2022 SARS-CoV-2 (COVID-19) Ab IA Ql Negative Negative [facility] Comment on above: This is a duplicate C[employer] Xpert Xpress CoV-2/Flu/RSV Plus RNA by RT-PCR result to be used for statistical tracking purpose only. SARS-CoV-2 (COVID-19) RNA DEBBIE+probe Ql (Unsp spec) [facility] SARS-CoV-2 (COVID-19) RNA DEBBIE+probe Ql (Unsp spec) [facility] Casts typing in urine sedime nt by light microscopyOrdered By: Kelby Ma on 06-29-2022 Casts LM Nom (Urine sed) None seen [LPF] None Seen [facility] Color Auto (U)Ordered By: Oneal Ma on 06-29-2022 Color (U) Dark yellow Yellow [facility] Creatinine and Glomerular fi ltration rate.predicted panel (S/P/Bld)Ordered By: Kelby Ma on 06-29-2022 Creatinine [Mass/Vol] 0.53 mg/dL 0.44-1.03 [facility] Eosinophils Auto (Bld) [#/Vo l]Ordered By: Kelby Ma on 06-29-2022 Eosinophils (Bld) [#/Vol] 0.0 10*3/uL 0.0-0.45 [facility] Eosinophils/100 WBC Auto (Bl d)Ordered By: Kelby Ma on 06-29-2022 Eosinophils/100 WBC (Bld) 0.2 % . [facility] Erythrocyte distribution wid th Auto (RBC) [Ratio]Ordered By: Kelby Ma on 06-29-2022 Erythrocyte distribution width (RBC) [Ratio] 13.4 % 11.9-15.3 [facility] Estimated glomerular filtrat ion rate (GFR) non- AmericanOrdered By: Kelby Ma on 06-29-2022 GFR/1.73 sq M.predicted among non-blacks MDRD (S/P/Bld) [Vol rate/Area] > 60 mL/Min [facility] Globulin Calc (S) [Mass/Vol] Ordered By: Kelby Ma on 06-29-2022 Globulin (S) [Mass/Vol] 3.3 g/dL [facility] Hematocrit Auto (Bld) [Volum e fraction]Ordered By: Kelby Ma on 06-29-2022 Hematocrit (Bld) [Volume fraction] 39.7 % 34.0-46.4 [facility] Hemoglobin [Mass/volume] in BloodOrdered By: Kelby Ma on 06-29-2022 Hemoglobin (Bld) [Mass/Vol] 13.2 g/dL 11.8-15.4 [facility] Ketones Auto test strip (U) [Mass/Vol]Ordered By: Kelby Ma on 06-29-2022 Ketones (U) [Mass/Vol] 1+ Negative [facility] - Chemistry and C hemistry - challengeOrdered By: Kelby Ma on 06-29-2022 Lipase [Catalytic activity/Vol] 23.0 U/L 22-51 [facility] - Hematology and Cell countsOrdered By: Kelby Ma on 06-29-2022 Nucleated RBC/100 WBC (Bld) [Ratio] 0.0 % 0-0.5 [facility] Leukocytes [#/volume] in Blo od by Automated countOrdered By: Kelby Ma on 06-29-2022 WBC (Bld) [#/Vol] 10.5 10*3/uL 4.5-11.0 [facility] Lymphocytes Auto (Bld) [#/Vo l]Ordered By: Kelby Ma on 06-29-2022 Lymphocytes (Bld) [#/Vol] 0.6 10*3/uL 1.00-4.8 [facility] Lymphocytes/100 WBC Auto (Bl d)Ordered By: Kelby Ma on 06-29-2022 Lymphocytes/100 WBC (Bld) 5.5 % . [facility] MCH Auto (RBC) [Entitic mass ]Ordered By: Kelby Ma on 06-29-2022 MCH (RBC) [Entitic mass] 27.1 pg 24.7-34.3 [facility] MCHC Auto (RBC) [Mass/Vol]Or dered By: Kelby Ma on 06-29-2022 MCHC (RBC) [Mass/Vol] 33.1 g/dL 32.0-35.0 [facility] MCV Auto (RBC) [Entitic vol] Ordered By: Kelby Ma on 06-29-2022 MCV (RBC) [Entitic vol] 81.7 fL 80-100 [facility] Monocytes Auto (Bld) [#/Vol] Ordered By: Kelby Ma on 06-29-2022 Monocytes (Bld) [#/Vol] 0.8 10*3/uL 0.0-0.8 [facility] Monocytes/100 WBC Auto (Bld) Ordered By: Kelby Ma on 06-29-2022 Monocytes/100 WBC (Bld) 7.8 % . [facility] Mucus LM Ql (Urine sed)Order ed By: Kelby Ma on 06-29-2022 Mucus Ql (Urine sed) 2+ [LPF] [facility] Neutrophils Auto (Bld) [#/Vo l]Ordered By: Kelby Ma on 06-29-2022 Neutrophils (Bld) [#/Vol] 9.0 10*3/uL 1.8-7.7 [facility] Neutrophils/100 WBC Auto (Bl d)Ordered By: Kelby Ma on 06-29-2022 Neutrophils/100 WBC (Bld) 86.2 % . [facility] Nitrite Test strip Ql (U)Ord ered By: Kelby Ma on 06-29-2022 Nitrite Ql (U) Negative Negative [facility] No Panel InformationOrdered By: Kelby Ma on 06-29-2022 Estimated GFR () > 60 mL/Min [facility] Comment on above: GFR estimated refere nce range: According to KDOQI guidelines, <60 ml/min/1.73m2 is sufficient to diagnose a patient with chronic kidney disease. Pharmacy Creatinine Clearance (Chem 145.24 [facility] Platelet mean volume Auto (B ld) [Entitic vol]Ordered By: Kelby Ma on 06-29-2022 Platelet mean volume (Bld) [Entitic vol] 7.4 fL 6.3-10.7 [facility] Platelets Auto (Bld) [#/Vol] Ordered By: Kelby Ma on 06-29-2022 Platelets (Bld) [#/Vol] 285 10*3/uL 150-450 [facility] Protein Auto test strip (U) [Mass/Vol]Ordered By: Kelby Ma on 06-29-2022 Protein (U) [Mass/Vol] 30 mg/dL Negative [facility] Protein [Mass/volume] in Ser um or PlasmaOrdered By: Kelby Ma on 06-29-2022 Protein [Mass/Vol] 6.6 g/dL 6.1-7.9 [facility] RBC Auto (Bld) [#/Vol]Ordere d By: Kelby Ma on 06-29-2022 RBC (Bld) [#/Vol] 4.86 10*6/uL 3.60-5.00 [facility] Serum or plasma alanine cochran otransferase measurement without P-5'-P (enzymatic activiOrdered By: Kelby Ma on 06-29-2022 ALT No additional P-5'-P [Catalytic activity/Vol] 16 U/L 10-60 [facility] Serum or plasma albumin/glob ulin mass ratioOrdered By: Kelby Ma on 06-29-2022 Albumin/Globulin [Mass ratio] 1.0 {ratio} [facility] Serum or plasma alkaline donta sphatase measurement (enzymatic activity/volume)Ordered By: Kelby Ma on 06-29-2022 ALP [Catalytic activity/Vol] 79 U/L 32-92 [facility] Serum or plasma anion gap de terminationOrdered By: Kelby Ma on 06-29-2022 Anion gap [Moles/Vol] 11.6 mmol/L 6.0-15.0 [facility] Serum or plasma aspartate am inotransferase measurement (enzymatic activity/volume)Ordered By: Kelby Ma on 06-29-2022 AST [Catalytic activity/Vol] 17 U/L 10-42 [facility] Serum or plasma calcium pauline urement (mass/volume)Ordered By: Kelby Ma on 06-29-2022 Calcium [Mass/Vol] 8.5 mg/dL 8.2-10.2 [facility] Serum or plasma chloride candis surement (moles/volume)Ordered By: Kelby aM on 06-29-2022 Chloride [Moles/Vol] 102 mmol/L 95-114 [facility] Serum or plasma glucose pauline urement (mass/volume)Ordered By: Kelby Ma on 06-29-2022 Glucose [Mass/Vol] 169 mg/dL 70-100 [facility] Comment on above: ADA recommended refe rence rangeRandom Glucose Reference Range is dependent on time and content of last meal. Glucose of more than 200 mg/dL in a nonstressed, ambulatory subject supports the diagnosis of Diabetes Mellitus. Serum or plasma potassium me asurement (moles/volume)Ordered By: Kelby Ma on 06-29-2022 Potassium [Moles/Vol] 3.5 mmol/L 3.5-5.1 [facility] Serum or plasma sodium measu rement (moles/volume)Ordered By: Kelby Ma on 06-29-2022 Sodium [Moles/Vol] 133 mmol/L 136-146 [facility] Serum or plasma total biliru bin measurement (mass/volume)Ordered By: Kelby Ma on 06-29-2022 Bilirubin [Mass/Vol] 1.2 mg/dL 0.3-1.2 [facility] Serum or plasma total carbon dioxide measurement (moles/volume)Ordered By: Kelby Ma on 06-29-2022 CO2 [Moles/Vol] 22.9 mmol/L 22.0-30.0 [facility] Serum or plasma urea nitroge n measurement (mass/volume)Ordered By: Kelby Ma on 06-29-2022 Urea nitrogen [Mass/Vol] 16 mg/dL 9-23 [facility] Specific gravity Auto test s trip (U) [Rel density]Ordered By: Kelby Ma on 06-29-2022 Specific gravity (U) [Rel density] 1.028 1.001-1.03 0 [facility] Squamous epithelial cells de tection in urine sediment by light microscopyOrdered By: Kelby Ma on 06-29-2022 Epithelial cells.squamous LM Ql (Urine sed) 10-19 [HPF] 0-2 [facility] Urine bacteria detection by automated methodOrdered By: Kelby Ma on 06-29-2022 Bacteria Auto Ql (U) None seen None Seen [facility] Urine clarity by refractomet ry automatedOrdered By: Kelby Ma on 06-29-2022 Clarity Refractometry automated (U) Cloudy Clear [facility] Urine culture routineOrdered By: Kelby Ma on 06-29-2022 Bacteria identified Cx Nom (U) 2 Days [facility] Urine glucose measurement by automated test strip (mass/volume)Ordered By: Kelby Ma on 06-29-2022 Glucose Auto test strip (U) [Mass/Vol] Normal mg/dL Normal [facility] Urine hemoglobin detection b y automated test stripOrdered By: Kelby Ma on 06-29-2022 Hemoglobin Auto test strip Ql (U) Negative Negative [facility] Urine leukocyte esterase det ection by automated test stripOrdered By: Kelby Ma on 06-29-2022 Leukocyte esterase Auto test strip Ql (U) 1+ Negative [facility] Urobilinogen Auto test strip (U) [Mass/Vol]Ordered By: Kelby Ma on 06-29-2022 Urobilinogen (U) [Mass/Vol] Normal mg/dL Normal [facility] pH Auto test strip (U)Ordere d By: Kelby Ma on 06-29-2022 pH (U) 6.5 [pH] 5.0-9.0 [facility] Basophils Auto (Bld) [#/Vol] Ordered By: PROVIDER TEMP on 06-13-2022 Basophils (Bld) [#/Vol] 0.0 10*3/uL 0.0-0.2 [facility] Basophils/100 WBC Auto (Bld) Ordered By: PROVIDER TEMP on 06-13-2022 Basophils/100 WBC (Bld) 0.4 % . [facility] COVID CepheidOrdered By: PRO VIDER TEMP on 06-13-2022 SARS-CoV-2 (COVID-19) Ab IA Ql Negative Negative [facility] Comment on above: This is a duplicate Cepheid Xpert Xpress CoV-2/Flu/RSV Plus RNA by RT-PCR result to be used for statistical tracking purpose only. COVID CepheidOrdered By: Johnnie Stovall on 06-13-2022 SARS-CoV-2 (COVID-19) RNA DEBBIE+probe Ql (Unsp spec) [facility] SARS-CoV-2 (COVID-19) RNA DEBBIE+probe Ql (Unsp spec) [facility] Creatinine and Glomerular fi ltration rate.predicted panel (S/P/Bld)Ordered By: PROVIDER TEMP on 06-13-2022 Creatinine [Mass/Vol] 0.69 mg/dL 0.44-1.03 [facility] Eosinophils Auto (Bld) [#/Vo l]Ordered By: PROVIDER TEMP on 06-13-2022 Eosinophils (Bld) [#/Vol] 0.2 10*3/uL 0.0-0.45 [facility] Eosinophils/100 WBC Auto (Bl d)Ordered By: PROVIDER TEMP on 06-13-2022 Eosinophils/100 WBC (Bld) 1.6 % . [facility] Erythrocyte distribution wid th Auto (RBC) [Ratio]Ordered By: PROVIDER TEMP on 06-13-2022 Erythrocyte distribution width (RBC) [Ratio] 13.3 % 11.9-15.3 [facility] Estimated glomerular filtrat ion rate (GFR) non- AmericanOrdered By: PROVIDER TEMP on 06-13-2022 GFR/1.73 sq M.predicted among non-blacks MDRD (S/P/Bld) [Vol rate/Area] > 60 mL/Min [facility] Hematocrit Auto (Bld) [Volum e fraction]Ordered By: PROVIDER TEMP on 06-13-2022 Hematocrit (Bld) [Volume fraction] 38.9 % 34.0-46.4 [facility] Hemoglobin [Mass/volume] in BloodOrdered By: PROVIDER TEMP on 06-13-2022 Hemoglobin (Bld) [Mass/Vol] 13.1 g/dL 11.8-15.4 [facility] - Chemistry and C hemistry - challengeOrdered By: PROVIDER TEMP on 06-13-2022 Natriuretic peptide B (Bld) [Mass/Vol] 12.0 pg/mL 5-100 [facility] - Hematology and Cell countsOrdered By: PROVIDER TEMP on 06-13-2022 Nucleated RBC/100 WBC (Bld) [Ratio] 0.1 % 0-0.5 [facility] Leukocytes [#/volume] in Blo od by Automated countOrdered By: PROVIDER TEMP on 06-13-2022 WBC (Bld) [#/Vol] 9.3 10*3/uL 4.5-11.0 [facility] Lymphocytes Auto (Bld) [#/Vo l]Ordered By: PROVIDER TEMP on 06-13-2022 Lymphocytes (Bld) [#/Vol] 1.4 10*3/uL 1.00-4.8 [facility] Lymphocytes/100 WBC Auto (Bl d)Ordered By: PROVIDER TEMP on 06-13-2022 Lymphocytes/100 WBC (Bld) 14.6 % . [facility] MCH Auto (RBC) [Entitic mass ]Ordered By: PROVIDER TEMP on 06-13-2022 MCH (RBC) [Entitic mass] 27.1 pg 24.7-34.3 [facility] MCHC Auto (RBC) [Mass/Vol]Or dered By: PROVIDER TEMP on 06-13-2022 MCHC (RBC) [Mass/Vol] 33.6 g/dL 32.0-35.0 [facility] MCV Auto (RBC) [Entitic vol] Ordered By: PROVIDER TEMP on 06-13-2022 MCV (RBC) [Entitic vol] 80.8 fL 80-100 [facility] Monocytes Auto (Bld) [#/Vol] Ordered By: PROVIDER TEMP on 06-13-2022 Monocytes (Bld) [#/Vol] 0.9 10*3/uL 0.0-0.8 [facility] Monocytes/100 WBC Auto (Bld) Ordered By: PROVIDER TEMP on 06-13-2022 Monocytes/100 WBC (Bld) 9.4 % . [facility] Neutrophils Auto (Bld) [#/Vo l]Ordered By: PROVIDER TEMP on 06-13-2022 Neutrophils (Bld) [#/Vol] 6.9 10*3/uL 1.8-7.7 [facility] Neutrophils/100 WBC Auto (Bl d)Ordered By: PROVIDER TEMP on 06-13-2022 Neutrophils/100 WBC (Bld) 74.0 % . [facility] No Panel InformationOrdered By: PROVIDER TEMP on 06-13-2022 Estimated GFR () > 60 mL/Min [facility] Comment on above: GFR estimated refere nce range: According to KDOQI guidelines, <60 ml/min/1.73m2 is sufficient to diagnose a patient with chronic kidney disease. Pharmacy Creatinine Clearance (Chem 111.70 [facility] Platelet mean volume Auto (B ld) [Entitic vol]Ordered By: PROVIDER TEMP on 06-13-2022 Platelet mean volume (Bld) [Entitic vol] 7.8 fL 6.3-10.7 [facility] Platelets Auto (Bld) [#/Vol] Ordered By: PROVIDER TEMP on 06-13-2022 Platelets (Bld) [#/Vol] 281 10*3/uL 150-450 [facility] RBC Auto (Bld) [#/Vol]Ordere d By: PROVIDER TEMP on 06-13-2022 RBC (Bld) [#/Vol] 4.82 10*6/uL 3.60-5.00 [facility] Serum or plasma anion gap de terminationOrdered By: PROVIDER TEMP on 06-13-2022 Anion gap [Moles/Vol] 12.8 mmol/L 6.0-15.0 [facility] Serum or plasma calcium pauline urement (mass/volume)Ordered By: PROVIDER TEMP on 06-13-2022 Calcium [Mass/Vol] 9.0 mg/dL 8.2-10.2 [facility] Serum or plasma chloride candis surement (moles/volume)Ordered By: PROVIDER TEMP on 06-13-2022 Chloride [Moles/Vol] 101 mmol/L 95-114 [facility] Serum or plasma glucose pauline urement (mass/volume)Ordered By: PROVIDER TEMP on 06-13-2022 Glucose [Mass/Vol] 258 mg/dL 70-100 [facility] Comment on above: Delta: 119 on -1211ADA recommended reference rangeRandom Glucose Reference Range is dependent on time and content of last meal. Glucose of more than 200 mg/dL in a nonstressed, ambulatory subject supports the diagnosis of Diabetes Mellitus. Serum or plasma potassium me asurement (moles/volume)Ordered By: PROVIDER TEMP on 06-13-2022 Potassium [Moles/Vol] 3.1 mmol/L 3.5-5.1 [facility] Serum or plasma sodium measu rement (moles/volume)Ordered By: PROVIDER TEMP on 06-13-2022 Sodium [Moles/Vol] 131 mmol/L 136-146 [facility] Serum or plasma total carbon dioxide measurement (moles/volume)Ordered By: PROVIDER TEMP on 06-13-2022 CO2 [Moles/Vol] 20.3 mmol/L 22.0-30.0 [facility] Serum or plasma urea nitroge n measurement (mass/volume)Ordered By: PROVIDER TEMP on 06-13-2022 Urea nitrogen [Mass/Vol] 15 mg/dL 9-23 [facility] Troponin I.cardiac [Mass/vol ume] in Serum or Plasma by High sensitivity methodOrdered By: JAXON KAHN on 06-13-2022 Troponin I.cardiac High sensitivity method [Mass/Vol] 7 pg/mL 0-15 [facility] Body fluid albumin measureme nt (mass/volume)Ordered By: Michael Morley on 06-12-2022 Albumin (Body fld) [Mass/Vol] 3.5 g/dL 3.2-5.5 [facility] Cholesterol [Mass/volume] in Serum or PlasmaOrdered By: Michael Morley on 06-12-2022 Cholesterol [Mass/Vol] 138 mg/dL 140-200 [facility] Comment on above: Chol less than 200 m g/dl low riskChol 201-239 mg/dl borderline riskChol 240 mg/dl and greater high risk Cholesterol in LDL Calc [Mas s/Vol]Ordered By: Michael Morley on 06-12-2022 Cholesterol in LDL [Mass/Vol] 74 mg/dL 0-100 [facility] Comment on above: LDL ATP III CLASSIFI CATIONLDL less than 100 mg/dL OptimalLDL 100-129 mg/dL Near or above optimalLDL 130-159 mg/dL Borderline highLDL 160-189 mg/dL HighLDL greater than 189 mg/dL Very high Cholesterol in VLDL Calc [Ma ss/Vol]Ordered By: Michael Morley on 06-12-2022 Cholesterol in VLDL [Mass/Vol] 12 mg/dL [facility] Creatinine and Glomerular fi ltration rate.predicted panel (S/P/Bld)Ordered By: Michael Morley on 06-12-2022 Creatinine [Mass/Vol] 0.52 mg/dL 0.44-1.03 [facility] Estimated glomerular filtrat ion rate (GFR) non- AmericanOrdered By: Michael Morley on 06-12-2022 GFR/1.73 sq M.predicted among non-blacks MDRD (S/P/Bld) [Vol rate/Area] > 60 mL/Min [facility] Globulin Calc (S) [Mass/Vol] Ordered By: Michael Morley on 06-12-2022 Globulin (S) [Mass/Vol] 3.0 g/dL [facility] Glucose mean value [Mass/vol ume] in Blood Estimated from glycated hemoglobinOrdered By: Michael Morley on 06-12-2022 Average glucose Estimated from glycated hemoglobin (Bld) [Mass/Vol] 131 mg/dL [facility] Hemoglobin A1c percentageOrd ered By: Michael Morley on 06-12-2022 HbA1c (Bld) [Mass fraction] 6.2 % 4.3-5.6 [facility] Comment on above: Increased risk for d iabetes: 5.7 - 6.4diabetes: >6.4glycemic control for adults with diabetes: <7.0 Laboratory - Chemistry and C hemistry - challengeOrdered By: Michael Morley on 06-12-2022 Cobalamin (Vitamin B12) [Mass/Vol] 326 pg/mL 180-914 [facility] No Panel InformationOrdered By: Michael Morley on 06-12-2022 Estimated GFR () > 60 mL/Min [facility] Comment on above: GFR estimated refere nce range: According to KDOQI guidelines, <60 ml/min/1.73m2 is sufficient to diagnose a patient with chronic kidney disease. Pharmacy Creatinine Clearance (Chem N/A [facility] Protein [Mass/volume] in Ser um or PlasmaOrdered By: Michael Morley on 06-12-2022 Protein [Mass/Vol] 6.5 g/dL 6.1-7.9 [facility] Serum or plasma alanine cochran otransferase measurement without P-5'-P (enzymatic activiOrdered By: Michael Morley on 06-12-2022 ALT No additional P-5'-P [Catalytic activity/Vol] 11 U/L 10-60 [facility] Serum or plasma albumin/glob ulin mass ratioOrdered By: Michael Morley on 06-12-2022 Albumin/Globulin [Mass ratio] 1.2 {ratio} [facility] Serum or plasma alkaline donta sphatase measurement (enzymatic activity/volume)Ordered By: Michael Morley on 06-12-2022 ALP [Catalytic activity/Vol] 75 U/L 32-92 [facility] Serum or plasma anion gap de terminationOrdered By: Michael Morley on 06-12-2022 Anion gap [Moles/Vol] 8.5 mmol/L 6.0-15.0 [facility] Serum or plasma aspartate am inotransferase measurement (enzymatic activity/volume)Ordered By: Michael Morley on 06-12-2022 AST [Catalytic activity/Vol] 15 U/L 10-42 [facility] Serum or plasma calcium pauline urement (mass/volume)Ordered By: Michael Morley on 06-12-2022 Calcium [Mass/Vol] 9.1 mg/dL 8.2-10.2 [facility] Serum or plasma chloride candis surement (moles/volume)Ordered By: Michael Morley on 06-12-2022 Chloride [Moles/Vol] 105 mmol/L 95-114 [facility] Serum or plasma glucose pauline urement (mass/volume)Ordered By: Michael Morley on 06-12-2022 Glucose [Mass/Vol] 119 mg/dL 70-100 [facility] Comment on above: ADA recommended refe rence rangeRandom Glucose Reference Range is dependent on time and content of last meal. Glucose of more than 200 mg/dL in a nonstressed, ambulatory subject supports the diagnosis of Diabetes Mellitus. Serum or plasma high density lipoprotein (HDL) cholesterol measurementOrdered By: Michael Morley on 06-12-2022 Cholesterol in HDL [Mass/Vol] 52 mg/dL 35-85 [facility] Comment on above: HDL CHOL ATP-III CLA SSIFICATION Cardiovascular RiskHDL > or equal to 60 mg/dL LOWHDL < 40 mg/dL HIGH Serum or plasma potassium me asurement (moles/volume)Ordered By: Michael Morley on 06-12-2022 Potassium [Moles/Vol] 4.1 mmol/L 3.5-5.1 [facility] Serum or plasma sodium measu rement (moles/volume)Ordered By: Michael Morley on 06-12-2022 Sodium [Moles/Vol] 136 mmol/L 136-146 [facility] Serum or plasma total biliru bin measurement (mass/volume)Ordered By: Michael Morley on 06-12-2022 Bilirubin [Mass/Vol] 1.0 mg/dL 0.3-1.2 [facility] Serum or plasma total carbon dioxide measurement (moles/volume)Ordered By: Michael Morley on 06-12-2022 CO2 [Moles/Vol] 26.6 mmol/L 22.0-30.0 [facility] Serum or plasma total choles terol/high density lipoprotein (HDL) cholesterol mass ratOrdered By: Michael Morley on 06-12-2022 Cholesterol.total/Chol esterol in HDL [Mass ratio] 2.7 {ratio} <5.0 [facility] Serum or plasma urea nitroge n measurement (mass/volume)Ordered By: Michael Morley on 06-12-2022 Urea nitrogen [Mass/Vol] 13 mg/dL 9-23 [facility] TSH DL <= 0.005 mIU/L QnOrde red By: Michael Morley on 06-12-2022 TSH Qn 0.84 m[IU]/L 0.45-5.33 [facility] Triglyceride [Mass/volume] i n Serum or PlasmaOrdered By: Michael Morley on 06-12-2022 Triglyceride [Mass/Vol] 60 mg/dL 35-149 [facility] Comment on above: TRIG ATP III CLASSIF ICATIONTRIG less than 150 mg/dL NormalTRIG 150-199 mg/dL Borderline highTRIG 200-500 mg/dL High TRIG greater than 500 mg/dL Very highStandard traceable to the Center for Disease Conrtrol and Prevention (CDC) test method. Urine culture routineOrdered By: Jorgito Sanchez on 04-04-2022 Bacteria identified Cx Nom (U) 2 Days [facility] Urinalysis - AUTOMATEDon Appearance (U) clear [employer] Other Bilirubin Ql (U) Negative [employer] Other Color (U) dark yellow [employer] Other Glucose Ql (U) Negative [employer] Other Hemoglobin Ql (U) trace-intact [employer] Other Ketones Ql (U) Negative [employer] Other Leukocyte esterase Test strip Ql (U) trace [employer] Other Nitrite Ql (U) Negative [employer] Other pH (U) 5.5 [pH] [employer] Other Protein Ql (U) Negative [employer] Other Specific gravity (U) [Rel density] 1.020 [employer] Other Urobilinogen (U) [Mass/Vol] 0.2 mg/dL [employer] Other Urinalysis - AUTOMATED No rt [employer] Other Operative Reporton Operative Report MR#: [id number] [facility] Pt. Name: Lisa Mendez Room #: 0C Discharge Date: Birthdate: 1975 OPERATIVE REPORT DATE OF SURGERY: 03/19/2022 SURGEON: Isai Ordoñez M.D. PREOPERATIVE DIAGNOSIS: CMC joint arthritis, left thumb, soft tissue mass left wrist. POSTOPERATIVE DIAGNOSIS: CMC joint arthritis, left thumb, soft tissue mass left wrist. PROCEDURE: 1. Escision of 4mm soft tissue mass contained in the subcutaneus tissue. 2. Deleon soft tissue arthroplasty using FCR tendon graft, left thumb. INSTRUMENT REPAIR TECHNICIAN: Augustine Villalpando MD ANESTHESIA: Regional. INDICATION FOR [...] pulled through the drill hole using a Garcai suture passer. The tendon was looped around the base of the metacarpal and then tied together with and sutured to the other slip of tendon. The remaining tendon from both slips was rolled up onto forceps and sutured together into a ball. That was used to fill the space from where the trapezium was excised. The capsule was closed with [id number] sutures of 3-0 Vicryl. The skin was closed with 5-0 Novafil. A sterile dressing of Xeroform gauze, 4x4 fluffs, Webril, and a short-arm thumb spica plaster splint was applied. The tourniquet was released and the drapes were removed. All sponge and needle counts were correct at time of closure. Electr (more content not included)... Normal [facility] POC GLUCOSE LABon 03-19-2022 Glucose [Mass/Vol] 68 mg/dL Low 70-100 [facility] Comment on above: Performed By: #### [id number] #### [address] Glucose [Mass/Vol] 104 mg/dL High 70-100 [facility] Comment on above: Performed By: #### [id number] #### [address] HAND LEFT 3 [facility] 03-06-2022 HAND LEFT 3 [facility] Department of Radiology [address] [place] [id number] Patient Name: LISA MENDEZ : 1975 Sex: F Age: Race: White Pt. Location: Patient Status: D Ordered Date: 03/06/2022 11:40:00 AM Completed Date: 03/06/2022 01:07 PM Requesting Provider: ISAI ORDOÑEZ Attending Provider: ISAI ORDOÑEZ Report Copy To: Signs & Symptoms: M79.642 Pain in left hand I10 History: [place] Comments: Evaluate Exam: HAND LEFT 3 V[facility] HAND LEFT 3 [facility]WS 03/06/2022 1:07 PM CLINICAL INDICATIONS: [...] report. Electronically signed: Tika Larson. Transcribed by: [email or web address], User Resident: EDILIA REDMOND Electronically Signed by: TIKA LARSON @ 03/07/2022 11:48 AM I personally read this/these film(s) with this resident Normal [facility] Comment on above: Order Comment: Evalu ate HAND RIGHT 3 VWSon 2 HAND RIGHT 3 [facility] Department of Radiology [address] [place] [address] Patient Name: LISA MENDEZ : 1975 Sex: F Age: Race: White Pt. Location: Patient Status: D Ordered Date: 03/06/2022 11:40:00 AM Completed Date: 03/06/2022 01:07 PM Requesting Provider: ISAI ORDOÑEZ Attending Provider: ISAI ORDOÑEZ Report Copy To: Signs & Symptoms: M79.642 Pain in left hand I10 History: [place] Comments: Evaluate Exam: HAND RIGHT 3 [facility] HAND RIGHT 3 S 03/06/2022 1:07 PM CLINICAL INDICATIONS: [...] report. Electronically signed: Tika Larson. Transcribed by: [email or web address], User Resident: EDILIA REDMOND Electronically Signed by: TIKA GILMAR @ 03/07/2022 11:48 AM I personally read this/these film(s) with this resident Normal [facility] Comment on above: Order Comment: Evalu ate Urine culture routineOrdered By: Jorgito Sanchez on 03-03-2022 Bacteria identified Cx Nom (U) 2 Days [facility] Urinalysis - AUTOMATEDon Appearance (U) slightly cloudy [employer] Other Bilirubin Ql (U) Negative [employer] Other Color (U) dark yellow [employer] Other Glucose Ql (U) Negative [employer] Other Hemoglobin Ql (U) trace-intact [employer] Other Ketones Ql (U) Negative [employer] Other Leukocyte esterase Test strip Ql (U) small [employer] Other Nitrite Ql (U) Negative [employer] Other pH (U) 7.5 [pH] [employer] Other Protein Ql (U) Negative [employer] Other Specific gravity (U) [Rel density] 1.020 [employer] Other Urobilinogen (U) [Mass/Vol] 1.0 mg/dL [employer] Other Urinalysis - AUTOMATED No rt [employer] Other COVID + FLU Quick Testingon 09-11-2021 SARS-CoV-2 (COVID-19) RNA DEBBIE+probe Ql (Unsp spec) Negative [employer] Other COVID + FLU Quick Testing Negative [employer] Other Albumin [Mass/volume] in Ser um or Plasmaon 07-06-2020 Albumin [Mass/Vol] 3.8 g/dL 3.2-5.5 [facility] Creatinine and Glomerular fi ltration rate.predicted panel (S/P/Bld)on 07-06-2020 Creatinine [Mass/Vol] 0.52 mg/dL 0.44-1.03 [facility] Estimated glomerular filtrat ion rate (GFR) non- Americanon 07-06-2020 GFR/1.73 sq M.predicted among non-blacks MDRD (S/P/Bld) [Vol rate/Area] mL/min/{1.73_m2} [facility] Globulin Calc (S) [Mass/Vol] on 07-06-2020 Globulin (S) [Mass/Vol] 2.8 g/dL [facility] Glucose mean value [Mass/vol ume] in Blood Estimated from glycated hemoglobinon 07-06-2020 Average glucose Estimated from glycated hemoglobin (Bld) [Mass/Vol] 140 mg/dL [facility] Hemoglobin A1c percentageon 07-06-2020 HbA1c (Bld) [Mass fraction] 6.5 % 4.3-5.6 [facility] Comment on above: Increased risk for d iabetes: 5.7 - 6.4 diabetes: >6.4 glycemic control for adults with diabetes: <7.0 Increased risk for d iabetes: 5.7 - 6.4diabetes: >6.4glycemic control for adults with diabetes: <7.0 Laboratory - Chemistry and C hemistry - challengeon 07-06-2020 Cobalamin (Vitamin B12) [Mass/Vol] 188 pg/mL 180-914 [facility] GFR/1.73 sq M.predicted MDRD (S/P/Bld) [Vol rate/Area] mL/min/{1.73_m2} [facility] Comment on above: GFR estimated refere nce range: According to KDOQI guidelines, <60 ml/min/1.73m2 is sufficient to diagnose a patient with chronic kidney disease. No Panel Informationon 07-06 Pharmacy Creatinine Clearance (Chem N/A [facility] Protein [Mass/volume] in Ser um or Plasmaon 07-06-2020 Protein [Mass/Vol] 6.6 g/dL 6.1-7.9 [facility] Serum or plasma alanine cochran otransferase measurement without P-5'-P (enzymatic activion 07-06-2020 ALT No additional P-5'-P [Catalytic activity/Vol] 17 U/L 10-60 [facility] Serum or plasma albumin/glob ulin mass ratioon 07-06-2020 Albumin/Globulin [Mass ratio] 1.4 {ratio} [facility] Serum or plasma alkaline donta sphatase measurement (enzymatic activity/volume)on 07-06-2020 ALP [Catalytic activity/Vol] 84 U/L 32-92 [facility] Serum or plasma aspartate am inotransferase measurement (enzymatic activity/volume)on 07-06-2020 AST [Catalytic activity/Vol] 23 U/L 10-42 [facility] Serum or plasma calcium pauline urement (mass/volume)on 07-06-2020 Calcium [Mass/Vol] 9.3 mg/dL 8.2-10.2 [facility] Serum or plasma chloride candis surement (moles/volume)on 07-06-2020 Chloride [Moles/Vol] 100 mmol/L 95-114 [facility] Serum or plasma glucose pauilne urement (mass/volume)on 07-06-2020 Glucose [Mass/Vol] 130 mg/dL 70-100 [facility] Comment on above: ADA recommended refe [...] (moles/volume)on 07-06-2020 Potassium [Moles/Vol] 3.3 mmol/L 3.5-5.1 [facility] Serum or plasma sodium measu rement (moles/volume)on 07-06-2020 Sodium [Moles/Vol] 136 mmol/L 136-146 [facility] Serum or plasma total biliru bin measurement (mass/volume)on 07-06-2020 Bilirubin [Mass/Vol] 0.8 mg/dL 0.3-1.2 [facility] Serum or plasma total carbon dioxide measurement (moles/volume)on 07-06-2020 CO2 [Moles/Vol] 26.4 mmol/L 22.0-30.0 [facility] Serum or plasma urea nitroge n measurement (mass/volume)on 07-06-2020 Urea nitrogen [Mass/Vol] 8 mg/dL 9 [facility] Vital Signs Date Time Vital Sign Value Performing Clinician Facility 04-19-2025 16:56-0400 Body temperature 97.7 [degF] Mayra Quiñonez [employer] Work Phone: [facility] 04-19-2025 16:56-0400 Diastolic blood pressure 68 mm[Hg] Mayra Quiñonez [employer] MANAGER Work Phone: [facility] 04-19-2025 16:56-0400 Heart rate 97 /min aMyra Quiñonez [employer] MANAGER Work Phone: [facility] 04-19-2025 16:56-0400 SaO2% (BldA) [Mass fraction] 99 % Mayra Quiñonez [employer] MANAGER Work Phone: [facility] 04-19-2025 16:56-0400 Systolic blood pressure 124 mm[Hg] Mayra Quiñonez [employer] MANAGER Work Phone: [facility] 04-02-2025 08:00-0400 Body temperature 98.2 [degF] Services [facility] Work Phone: [facility] 04-02-2025 08:00-0400 Diastolic blood pressure 70 mm[Hg] Services [facility] Work Phone: [facility] 04-02-2025 08:00-0400 Heart rate 84 /min [facility] Work Phone: [facility] 04-02-2025 08:00-0400 Respiratory rate 20 /min [facility] Work Phone: [facility] 04-02-2025 08:00-0400 SaO2% (BldA) [Mass fraction] 97 % [facility] Work Phone: [facility] 04-02-2025 08:00-0400 Systolic blood pressure 104 mm[Hg] [facility] Work Phone: [facility] 04-02-2025 06:00-0400 Body weight 107.5 kg [facility] Work Phone: [facility] 04-01-2025 17:17-0400 Body height 157.48 cm [facility] Work Phone: [facility] 04-01-2025 16:08-0400 Diastolic blood pressure 71 mm[Hg] [facility] Work Phone: [facility] 04-01-2025 16:08-0400 Heart rate 94 /min [facility] Work Phone: [facility] 04-01-2025 16:08-0400 Respiratory rate 23 /min [facility] Work Phone: [facility] 04-01-2025 16:08-0400 SaO2% (BldA) [Mass fraction] 97 % [facility] Work Phone: [facility] 04-01-2025 16:08-0400 Systolic blood pressure 140 mm[Hg] [facility] Work Phone: [facility] 04-01-2025 12:32-0400 Body temperature 98.2 [degF] [facility] Work Phone: [facility] 04-01-2025 11:10-0400 Body height 160.02 cm [facility] Work Phone: [facility] 04-01-2025 11:10-0400 Body weight 107.95 kg [facility] Work Phone: [facility] 03-30-2025 13:41-0400 Body height 158.75 cm [facility] Work Phone: [facility] 03-30-2025 13:41-0400 Body mass index (BMI) [Ratio] 43 kg/m2 [facility] Work Phone: [facility] 03-30-2025 13:41-0400 Body weight 108.[address] [facility] Work Phone: [facility] 03-01-2025 15:44-0400 Diastolic blood pressure 80 mm[Hg] Brigida Corea APRN Work Phone: [facility] 03-01-2025 15:44-0400 Heart rate 118 /min Brigida Corea APRN Work Phone: [facility] 03-01-2025 15:44-0400 Systolic blood pressure 100 mm[Hg] Brigida Corea APRN Work Phone: [facility] 03-01-2025 15:44-0400 Body height 160.02 cm Brigida Corea APRN Work Phone: [facility] 03-01-2025 15:44-0400 Body mass index (BMI) [Ratio] 43.2 kg/m2 Brigida Corea APRN Work Phone: [facility] 03-01-2025 15:44-0400 Body weight 110.67 kg Brigida Corea APRN Work Phone: [facility] 03-01-2025 15:44-0400 Respiratory rate 18 /min Brigida Corea APRN Work Phone: [facility] 03-01-2025 15:44-0400 SaO2% (BldA) [Mass fraction] 99 % Brigida Corea APRN Work Phone: [facility] 02-22-2025 19:16-0400 Body mass index (BMI) [Ratio] 42.51 kg/m2 Anil Ma [employer] MANAGER Work Phone: [facility] 02-22-2025 19:16-0400 Body temperature 97.59 [degF] Anil Ma [employer] MANAGER Work Phone: [facility] 02-22-2025 19:16-0400 Body weight 108.86 kg Anil Ma [employer] MANAGER Work Phone: [facility] 02-22-2025 19:16-0400 Diastolic blood pressure 84 mm[Hg] Anil Ma [employer] MANAGER Work Phone: [facility] 02-22-2025 19:16-0400 Heart rate 84 /min Anil Ma [employer] MANAGER Work Phone: [facility] 02-22-2025 19:16-0400 SaO2% (BldA) [Mass fraction] 97 % Anil Ma [employer]OR[employer] MANAGER Work Phone: [facility] 02-22-2025 19:16-0400 Systolic blood pressure 126 mm[Hg] Anil Ma [employer] MANAGER Work Phone: [facility] 02-16-2025 08:45-0400 Body height 160.02 cm Brigida Corea [employer] CLEANER Work Phone: [facility] 02-16-2025 08:45-0400 Body mass index (BMI) [Ratio] 42.7 kg/m2 Brigida Corea [employer] CLE[employer] Work Phone: [facility] 02-16-2025 08:45-0400 Body weight 109.6 kg Brigida Anmol [employer] CLE[employer] Work Phone: [facility] 02-16-2025 08:45-0400 Diastolic blood pressure 74 mm[Hg] Brigida Corea [employer] CLE[employer]ER Work Phone: [facility] 02-16-2025 08:45-0400 Heart rate 64 /min Brigida Corea [employer] CLE[employer] Work Phone: [facility] 02-16-2025 08:45-0400 Respiratory rate 18 /min Brigida Corea [employer] CLE[employer] Work Phone: [facility] 02-16-2025 08:45-0400 Systolic blood pressure 106 mm[Hg] Brigida Corea [employer] CLE[employer] Work Phone: [facility] 02-15-2025 15:35-0400 Body height 160 cm Delroy Merino DPM Work Phone: [facility] 02-15-2025 15:35-0400 Body mass index (BMI) [Ratio] 40.74 kg/m2 Delroy Merino DPM Work Phone: [facility] 02-15-2025 15:35-0400 Body weight 104.33 kg Delroy Merino DPM Work Phone: [facility] 02-15-2025 15:35-0400 Respiratory rate 16 /min Delroy Merino DPM Work Phone: [facility] 02-14-2025 17:37-0400 Diastolic blood pressure 74 mm[Hg] Brigida Corea [employer] CLE[employer]ER Work Phone: [facility] 02-14-2025 17:37-0400 Heart rate 72 /min Brigida Corea [employer] CLE[employer] Work Phone: [facility] 02-14-2025 17:37-0400 Respiratory rate 19 /min Brigida Corea [employer] CLE[employer] Work Phone: [facility] 02-14-2025 17:37-0400 SaO2% (BldA) [Mass fraction] 98 % Brigida Corea [employer] CLE[employer] Work Phone: [facility] 02-14-2025 17:37-0400 Systolic blood pressure 120 mm[Hg] Brigida Corea [employer] CLE[employer]ER Work Phone: [facility] 02-14-2025 14:52-0400 Body height 160.02 cm Brigida Corea [employer] CLE[employer]ER Work Phone: [facility] 02-14-2025 14:52-0400 Body temperature 98.3 [degF] Brigida Corea [employer] CLE[employer]ER Work Phone: [facility] 02-14-2025 14:52-0400 Body weight 108 kg Brigida Corea [employer] CLE[employer] Work Phone: [facility] 02-01-2025 14:29-0400 Body height 160 cm Delroy Merino DPM Work Phone: [facility] 02-01-2025 14:29-0400 Body mass index (BMI) [Ratio] 40.74 kg/m2 Delroy Merino DPM Work Phone: [facility] 02-01-2025 14:29-0400 Body weight 104.33 kg Delroy Merino DPM Work Phone: [facility] 02-01-2025 14:29-0400 Respiratory rate 16 /min Delroy Merino DPM Work Phone: [facility] 01-12-2025 18:42-0400 Body height 160.02 cm Brigida Corea [employer] Work Phone: [facility] 01-12-2025 18:42-0400 Body temperature 97.6 [degF] Brigida Corea [employer] CLE[employer] Work Phone: [facility] 01-12-2025 18:42-0400 Body weight 107.4 kg Brigida Corea [employer] CLE[employer] Work Phone: [facility] 01-12-2025 18:42-0400 Diastolic blood pressure 83 mm[Hg] Brigida Corea [employer] CLE[employer]ER Work Phone: [facility] 01-12-2025 18:42-0400 Heart rate 83 /min Brigida Corea [employer] Work Phone: [facility] 01-12-2025 18:42-0400 Respiratory rate 18 /min Brigida Corea [employer] Work Phone: [facility] 01-12-2025 18:42-0400 SaO2% (BldA) [Mass fraction] 99 % Brigiad Corea [employer] Work Phone: [facility] 01-12-2025 18:42-0400 Systolic blood pressure 137 mm[Hg] Brigida Corea [employer] CLE[employer] Work Phone: [facility] 12-23-2024 14:49-0400 Body height 160.02 cm Brigida Corea [employer] CLE[employer] Work Phone: [facility] 12-23-2024 14:49-0400 Body mass index (BMI) [Ratio] 41.8 kg/m2 Brigida Corea [employer] CLE[employer] Work Phone: [facility] 12-23-2024 14:49-0400 Body weight 107.04 kg Brigida Anmol [employer] CLE[employer] Work Phone: [facility] 12-23-2024 14:49-0400 Diastolic blood pressure 80 mm[Hg] Brigida Corea APRN Work Phone: [facility] 12-23-2024 14:49-0400 Heart rate 91 /min Brigida Corea APRN Work Phone: [facility] 12-23-2024 14:49-0400 Respiratory rate 18 /min Brigida Corea APRN Work Phone: [facility] 12-23-2024 14:49-0400 SaO2% (BldA) [Mass fraction] 99 % Brigida Corea APRN Work Phone: [facility] 12-23-2024 14:49-0400 Systolic blood pressure 126 mm[Hg] Brigida Corea APRN Work Phone: [facility] 12-21-2024 10:35-0400 Body height 160 cm Delroy Merino DPM Work Phone: [facility] 12-21-2024 10:35-0400 Body mass index (BMI) [Ratio] 40.74 kg/m2 Delroy Merino DPM Work Phone: [facility] 12-21-2024 10:35-0400 Body weight 104.33 kg Delroy Merino DPM Work Phone: [facility] 12-21-2024 10:35-0400 Respiratory rate 16 /min Delroy Merino DPM Work Phone: [facility] 12-16-2024 10:35-0400 Body height 160 cm [employer] Work Phone: [facility] 12-16-2024 10:35-0400 Body mass index (BMI) [Ratio] 41.45 kg/m2 [employer] Work Phone: [facility] 12-16-2024 10:35-0400 Body weight 106.14 kg [employer] Work Phone: [facility] 12-16-2024 10:35-0400 Respiratory rate 18 /min [employer] Work Phone: [facility] 12-01-2024 16:01-0400 Body height 160 cm Delroy Wilber DPM Work Phone: [facility] 12-01-2024 16:01-0400 Body mass index (BMI) [Ratio] 40.74 kg/m2 Delroy Wilber DPM Work Phone: [facility] 12-01-2024 16:01-0400 Body weight 104.33 kg Delroy Wilber DPM Work Phone: [facility] 12-01-2024 16:01-0400 Respiratory rate 16 /min Delroy Brown DPM Work Phone: [facility] 11-21-2024 14:58-0400 Body temperature 98.01 [degF] Liz Hemmer PA Work Phone: [facility] 11-21-2024 14:58-0400 Diastolic blood pressure 78 mm[Hg] Liz Hemmer PA Work Phone: [facility] 11-21-2024 14:58-0400 Heart rate 89 /min Liz Hemmer PA Work Phone: [facility] 11-21-2024 14:58-0400 SaO2% (BldA) [Mass fraction] 99 % Liz Hemmer PA Work Phone: [facility] 11-21-2024 14:58-0400 Systolic blood pressure 110 mm[Hg] Liz Hemmer PA Work Phone: [facility] 11-18-2024 07:27-0400 Body height 160 cm Pacc 2 Work Phone: [facility] 11-18-2024 07:27-0400 Body mass index (BMI) [Ratio] 42.18 kg/m2 Pacc 2 Work Phone: [facility] 11-18-2024 07:27-0400 Body temperature 98.01 [degF] Pacc 2 Work Phone: [facility] 11-18-2024 07:27-0400 Body weight 108 kg Pacc 2 Work Phone: [facility] 11-18-2024 07:27-0400 Diastolic blood pressure 75 mm[Hg] Pacc 2 Work Phone: [facility] 11-18-2024 07:27-0400 Heart rate 79 /min Pacc 2 Work Phone: [facility] 11-18-2024 07:27-0400 Respiratory rate 16 /min Pacc 2 Work Phone: [facility] 11-18-2024 07:27-0400 SaO2% (BldA) [Mass fraction] 98 % Pacc 2 Work Phone: [facility] 11-18-2024 07:27-0400 Systolic blood pressure 118 mm[Hg] Pacc 2 Work Phone: [facility] 10-27-2024 00:35-0400 Heart rate 108 /min [facility] 10-27-2024 00:35-0400 Respiratory rate 28 /min [facility] 10-27-2024 00:35-0400 SaO2% (BldA) [Mass fraction] 94 % [facility] 10-27-2024 00:30-0400 Diastolic blood pressure 57 mm[Hg] [facility] 10-27-2024 00:30-0400 Systolic blood pressure 141 mm[Hg] [facility] 10-27-2024 00:22-0400 Heart rate 101 /min [facility] 10-27-2024 00:22-0400 Respiratory rate 18 /min [facility] 10-27-2024 00:14-0400 Heart rate 87 /min [facility] 10-27-2024 00:14-0400 Respiratory rate 18 /min [facility] 10-27-2024 00:13-0400 SaO2% (BldA) [Mass fraction] 100 % [facility] 10-26-2024 23:30-0400 SaO2% (BldA) [Mass fraction] 96 % [facility] 10-26-2024 23:30-0400 Respiratory rate 17 /min [facility] 10-26-2024 23:27-0400 Diastolic blood pressure 64 mm[Hg] [facility] 10-26-2024 23:27-0400 Systolic blood pressure 124 mm[Hg] [facility] 10-26-2024 22:40-0400 Respiratory rate 20 /min [facility] 10-26-2024 21:16-0400 Body temperature 97.52 [degF] [facility] 10-26-2024 21:16-0400 Diastolic blood pressure 71 mm[Hg] [facility] 10-26-2024 21:16-0400 Heart rate 78 /min [facility] 10-26-2024 21:16-0400 Systolic blood pressure 111 mm[Hg] [facility] 10-23-2024 17:44-0400 Body height 160.02 cm Brigida Corea APRN Work Phone: [facility] 10-23-2024 17:44-0400 Body temperature 98.4 [degF] Brigida Corea APRN Work Phone: [facility] 10-23-2024 17:44-0400 Body weight 108.2 kg Brigida Corea APRN Work Phone: [facility] 10-23-2024 17:44-0400 Diastolic blood pressure 52 mm[Hg] Brigida Corea APRN Work Phone: [facility] 10-23-2024 17:44-0400 Heart rate 89 /min Brigida Corea APRN Work Phone: [facility] 10-23-2024 17:44-0400 Respiratory rate 20 /min Brigida Corea APRN Work Phone: [facility] 10-23-2024 17:44-0400 SaO2% (BldA) [Mass fraction] 98 % Brigida Anmol THORNEN Work Phone: [facility] 10-23-2024 17:44-0400 Systolic blood pressure 115 mm[Hg] Brigida Corea REED CLEANER Work Phone: [facility] 10-10-2024 00:33-0500 Diastolic blood pressure 78 mm[Hg] Brigida Anmol THORNEN Work Phone: [facility] 10-10-2024 00:33-0500 Heart rate 99 /min Brigida Anmol REED CLEANER Work Phone: [facility] 10-10-2024 00:33-0500 Respiratory rate 22 /min Brigida Corea REED CLEANER Work Phone: [facility] 10-10-2024 00:33-0500 SaO2% (BldA) [Mass fraction] 97 % Brigida Anmol THORNEN Work Phone: [facility] 10-10-2024 00:33-0500 Systolic blood pressure 126 mm[Hg] Brigida Anmol THORNEN Work Phone: [facility] 10-09-2024 22:42-0500 Body height 160.02 cm Brigida Corea APRN Work Phone: [facility] 10-09-2024 22:42-0500 Body temperature 97.7 [degF] Brigida Anmol THORNEN Work Phone: [facility] 10-09-2024 22:42-0500 Body weight 105.4 kg Brigida Anmol REED CLEANER Work Phone: [facility] 10-01-2024 12:07-0500 Diastolic blood pressure 60 mm[Hg] Brigida Anmol THORNEN Work Phone: [facility] 10-01-2024 12:07-0500 Heart rate 75 /min Brigida Corea REED CLEANER Work Phone: [facility] 10-01-2024 12:07-0500 Respiratory rate 16 /min Brigida Corea APRN Work Phone: [facility] 10-01-2024 12:07-0500 SaO2% (BldA) [Mass fraction] 99 % Brigida Corea APRN Work Phone: [facility] 10-01-2024 12:07-0500 Systolic blood pressure 96 mm[Hg] Brigida Corea APRN Work Phone: [facility] 10-01-2024 10:17-0500 Body height 177.8 cm Brigida Corea REED CLEANER Work Phone: [facility] 10-01-2024 10:17-0500 Body weight 104.32 kg Brigida Corea APRN Work Phone: [facility] 09-27-2024 22:44-0500 Diastolic blood pressure 58 mm[Hg] Brigida Corea APRN Work Phone: [facility] 09-27-2024 22:44-0500 Heart rate 78 /min Brigida Corea APRN Work Phone: [facility] 09-27-2024 22:44-0500 Respiratory rate 16 /min Brigida Corea APRN Work Phone: [facility] 09-27-2024 22:44-0500 SaO2% (BldA) [Mass fraction] 100 % Brigida Corea APRN Work Phone: [facility] 09-27-2024 22:44-0500 Systolic blood pressure 116 mm[Hg] Brigida Corea APRN Work Phone: [facility] 09-27-2024 16:12-0500 Body temperature 97.6 [degF] Brigida Corea APRN Work Phone: [facility] 09-27-2024 14:36-0500 Body height 157.48 cm Brigida Corea APRN Work Phone: [facility] 09-27-2024 14:36-0500 Body weight 104.32 kg Brigida Anmol THORNEN Work Phone: [facility] 09-17-2024 18:38-0500 Body height 160.02 cm Brigida Corea APRN Work Phone: [facility] 09-17-2024 18:38-0500 Body mass index (BMI) [Ratio] 40.7 kg/m2 Brigida Corea REED CLEANER Work Phone: [facility] 09-17-2024 18:38-0500 Body temperature 98.4 [degF] Brigida Corea APRN Work Phone: [facility] 09-17-2024 18:38-0500 Body weight 104.32 kg Brigida Corea APRN Work Phone: [facility] 09-17-2024 18:38-0500 Diastolic blood pressure 75 mm[Hg] Brigida Corea APRN Work Phone: [facility] 09-17-2024 18:38-0500 Heart rate 78 /min Brigida Corea APRN Work Phone: [facility] 09-17-2024 18:38-0500 Systolic blood pressure 105 mm[Hg] Brigida Corea REED CLEANER Work Phone: [facility] 09-15-2024 10:55-0500 Body height 160 cm Delroy Merino DPM Work Phone: [facility] 09-15-2024 10:55-0500 Body mass index (BMI) [Ratio] 40.74 kg/m2 Delroy Merino DPM Work Phone: [facility] 09-15-2024 10:55-0500 Body weight 104.33 kg Delroy Merino DPM Work Phone: [facility] 09-15-2024 10:55-0500 Respiratory rate 18 /min Delroy Merino DPM Work Phone: [facility] 09-01-2024 14:25-0500 Body height 160.02 cm Brigida Corea REED CLEANER Work Phone: [facility] 09-01-2024 14:25-0500 Body mass index (BMI) [Ratio] 40.7 kg/m2 Brigida Corea REED CLEANER Work Phone: [facility] 09-01-2024 14:25-0500 Body weight 104.32 kg Brigida Corea REED CLEANER Work Phone: [facility] 09-01-2024 09:36-0500 Body height 160 cm Delroy Merino DPM Work Phone: [facility] 09-01-2024 09:36-0500 Body mass index (BMI) [Ratio] 40.74 kg/m2 Delroy Merino DPM Work Phone: [facility] 09-01-2024 09:36-0500 Body weight 104.33 kg Delroy Merino DPM Work Phone: [facility] 09-01-2024 09:36-0500 Respiratory rate 18 /min Delroy Merino DPM Work Phone: [facility] 08-29-2024 19:31-0500 Body height 160.02 cm Brigida Corea REED CLEANER Work Phone: [facility] 08-29-2024 19:31-0500 Body temperature 98.6 [degF] Brigida Corea REED CLEANER Work Phone: [facility] 08-29-2024 19:31-0500 Body weight 105.6 kg Brigida Corea REED CLEANER Work Phone: [facility] 08-29-2024 19:31-0500 Diastolic blood pressure 61 mm[Hg] Brigida Corea REED CLEANER Work Phone: [facility] 08-29-2024 19:31-0500 Heart rate 92 /min Brigida Anmol REED CLEANER Work Phone: [facility] 08-29-2024 19:31-0500 Respiratory rate 20 /min Brigida Anmol REED CLEANER Work Phone: [facility] 08-29-2024 19:31-0500 SaO2% (BldA) [Mass fraction] 100 % Brigida Anmol REED CLEANER Work Phone: [facility] 08-29-2024 19:31-0500 Systolic blood pressure 130 mm[Hg] Brigida Corea REED CLEANER Work Phone: [facility] 08-27-2024 11:01-0500 Body mass index (BMI) [Ratio] 40.74 kg/m2 Simone Rivera [employer]AT[employer] MANAGER Work Phone: [facility] 08-27-2024 11:01-0500 Body weight 104.33 kg Simone Rivera [employer] LABORATORY MANAGER Work Phone: [facility] 08-27-2024 11:01-0500 Diastolic blood pressure 80 mm[Hg] Simone Rivera [employer] LABORATORY MANAGER Work Phone: [facility] 08-27-2024 11:01-0500 Heart rate 108 /min Simone Rivera [employer]GEN[employer] LABORATORY MANAGER Work Phone: [facility] 08-27-2024 11:01-0500 SaO2% (BldA) [Mass fraction] 100 % Simone Rivera [employer]GEN[employer] LABORATORY MANAGER Work Phone: [facility] 08-27-2024 11:01-0500 Systolic blood pressure 138 mm[Hg] Simone Rivera [employer]GEN[employer] LABORATORY MANAGER Work Phone: [facility] 08-22-2024 04:20-0500 Diastolic blood pressure 64 mm[Hg] Brigida Corea REED CLEANER Work Phone: [facility] 08-22-2024 04:20-0500 Heart rate 84 /min Brigida Corea APRN Work Phone: [facility] 08-22-2024 04:20-0500 Respiratory rate 16 /min Brigida Corea APRN Work Phone: [facility] 08-22-2024 04:20-0500 SaO2% (BldA) [Mass fraction] 100 % Brigida Corea APRN Work Phone: [facility] 08-22-2024 04:20-0500 Systolic blood pressure 117 mm[Hg] Brigida Corea APRN Work Phone: [facility] 08-22-2024 02:19-0500 Body height 160.02 cm Brigida Corea REED CLEANER Work Phone: [facility] 08-22-2024 02:19-0500 Body temperature 97.6 [degF] Brigida Corea REED CLEANER Work Phone: [facility] 08-22-2024 02:19-0500 Body weight 104.8 kg Brigida Corea REED CLEANER Work Phone: [facility] 08-17-2024 16:36-0500 Body height 160 cm Delroy Merino DPM Work Phone: [facility] 08-17-2024 16:36-0500 Body mass index (BMI) [Ratio] 38.97 kg/m2 Delroy Merino DPM Work Phone: [facility] 08-17-2024 16:36-0500 Body weight 99.79 kg Delroy Brown DPM Work Phone: [facility] 08-17-2024 16:36-0500 Respiratory rate 16 /min Delroy Merino DPM Work Phone: [facility] 08-14-2024 09:10-0500 Body height 160 cm Delroy Merino DPM Work Phone: [facility] 08-14-2024 09:10-0500 Body mass index (BMI) [Ratio] 38.97 kg/m2 Delroy Brown DPM Work Phone: [facility] 08-14-2024 09:10-0500 Body weight 99.79 kg Delroy Merino DPM Work Phone: [facility] 08-14-2024 09:10-0500 Respiratory rate 18 /min Delroy Merino DPM Work Phone: [facility] 08-07-2024 02:57-0500 Diastolic blood pressure 56 mm[Hg] Brigida Corea REED CLEANER Work Phone: [facility] 08-07-2024 02:57-0500 Heart rate 72 /min Brigida Corea REED CLEANER Work Phone: [facility] 08-07-2024 02:57-0500 Respiratory rate 16 /min Brigida Corea APRN Work Phone: [facility] 08-07-2024 02:57-0500 SaO2% (BldA) [Mass fraction] 99 % Brigida Corea APRN Work Phone: [facility] 08-07-2024 02:57-0500 Systolic blood pressure 118 mm[Hg] Brigida Corea APRN Work Phone: [facility] 08-06-2024 19:47-0500 Body height 160.02 cm Brigida Corea APRN Work Phone: [facility] 08-06-2024 19:47-0500 Body temperature 97.6 [degF] Brigida Corea APRN Work Phone: [facility] 08-06-2024 19:47-0500 Body weight 104.55 kg Brigida Corea APRN Work Phone: [facility] 08-03-2024 09:08-0500 Body height 160 cm Delroy Merino DPM Work Phone: [facility] 08-03-2024 09:08-0500 Body mass index (BMI) [Ratio] 38.97 kg/m2 Delroy Merino DPM Work Phone: [facility] 08-03-2024 09:08-0500 Body weight 99.79 kg Delroy Merino DPM Work Phone: [facility] 08-03-2024 09:08-0500 Respiratory rate 18 /min Delroy Merino DPM Work Phone: [facility] 07-13-2024 12:11-0500 Body height 160 cm Delroy Merino DPM Work Phone: [facility] 07-13-2024 12:11-0500 Body mass index (BMI) [Ratio] 38.97 kg/m2 Delroy Merino DPM Work Phone: [facility] 07-13-2024 12:11-0500 Body weight 99.79 kg Delroy Wilber DPM Work Phone: [facility] 07-13-2024 12:11-0500 Respiratory rate 18 /min Delroy Wilber DPM Work Phone: [facility] 06-16-2024 14:12-0500 Diastolic blood pressure 84 mm[Hg] Brigida Corea REED CLEANER Work Phone: [facility] 06-16-2024 14:12-0500 Heart rate 77 /min Brigida Corea REED CLEANER Work Phone: [facility] 06-16-2024 14:12-0500 SaO2% (BldA) [Mass fraction] 97 % Brigida Corea REED CLEANER Work Phone: [facility] 06-16-2024 14:12-0500 Systolic blood pressure 126 mm[Hg] Brigida Corea APRN Work Phone: [facility] 06-16-2024 10:55-0500 Body height 160.02 cm Brigida Corea APRN Work Phone: [facility] 06-16-2024 10:55-0500 Body mass index (BMI) [Ratio] 41.4 kg/m2 Brigida Corea APRN Work Phone: [facility] 06-16-2024 10:55-0500 Body weight 106.14 kg Brigida Corea APRN Work Phone: [facility] 06-16-2024 10:55-0500 Diastolic blood pressure 78 mm[Hg] Brigida Corea APRN Work Phone: [facility] 06-16-2024 10:55-0500 Heart rate 75 /min Brigida Anmol THORNEN Work Phone: [facility] 06-16-2024 10:55-0500 Respiratory rate 18 /min Brigida Anmol THORNEN Work Phone: [facility] 06-16-2024 10:55-0500 SaO2% (BldA) [Mass fraction] 98 % Brigida Anmol THORNEN Work Phone: [facility] 06-16-2024 10:55-0500 Systolic blood pressure 106 mm[Hg] Brigida Corea REED CLEANER Work Phone: [facility] 05-25-2024 13:41-0400 Body height 160.02 cm REED CLEANER Brigida Corea Work Phone: [facility] 05-25-2024 13:41-0400 Body mass index (BMI) [Ratio] 40.8 kg/m2 REED CLEANER Brigida Corea Work Phone: [facility] 05-25-2024 13:41-0400 Body weight 104.55 kg TODD Corea Work Phone: [facility] 05-10-2024 18:50-0400 Diastolic blood pressure 97 mm[Hg] Francisco Marin [facility] 05-10-2024 18:50-0400 Systolic blood pressure 139 mm[Hg] Francisco Marin [facility] 05-10-2024 18:48-0400 Body temperature 97.52 [degF] Franciscodeven Marin [facility] 05-10-2024 18:48-0400 Heart rate 90 /min Francisco Tomas [facility] 05-10-2024 18:48-0400 Respiratory rate 20 /min Francisco Marin [facility] 05-10-2024 18:48-0400 SaO2% (BldA) [Mass fraction] 100 % Francisco Tomas [facility] 05-09-2024 04:10-0400 Heart rate 64 /min REED CLEANER Brigida Corea Work Phone: [facility] 05-09-2024 04:10-0400 Respiratory rate 18 /min REED CLEANER Brigida Corea Work Phone: [facility] 05-09-2024 04:10-0400 SaO2% (BldA) [Mass fraction] 98 % TODD Corea Work Phone: [facility] 05-08-2024 23:54-0400 Body height 160.02 cm TODD Corea Work Phone: [facility] 05-08-2024 23:54-0400 Body temperature 97.5 [degF] TODD Corea Work Phone: [facility] 05-08-2024 23:54-0400 Body weight 102.05 kg TODD Corea Work Phone: [facility] 05-08-2024 23:54-0400 Diastolic blood pressure 81 mm[Hg] TODD Corea Work Phone: [facility] 05-08-2024 23:54-0400 Heart rate 98 /min TODD Corea Work Phone: [facility] 05-08-2024 23:54-0400 Respiratory rate 20 /min TODD Corea Work Phone: [facility] 05-08-2024 23:54-0400 SaO2% (BldA) [Mass fraction] 98 % TODD Corea Work Phone: [facility] 05-08-2024 23:54-0400 Systolic blood pressure 131 mm[Hg] TODD Corea Work Phone: [facility] 05-07-2024 16:12-0400 Body mass index (BMI) [Ratio] 39.15 kg/m2 Simone Rivera [employer]ORAT[employer] MANAGER Work Phone: [facility] 05-07-2024 16:12-0400 Body weight 100.25 kg Simone Rivera [employer] LABORATORY MANAGER Work Phone: [facility] 05-07-2024 16:12-0400 Diastolic blood pressure 86 mm[Hg] Simone Rivera [employer]GEN[employer] LABORATORY MANAGER Work Phone: [facility] 05-07-2024 16:12-0400 Heart rate 106 /min Simone Rivera [employer]TOGEN[employer] LABORATORY MANAGER Work Phone: [facility] 05-07-2024 16:12-0400 SaO2% (BldA) [Mass fraction] 94 % Simone Rivera [employer]GEN[employer] LABORATORY MANAGER Work Phone: [facility] 05-07-2024 16:12-0400 Systolic blood pressure 152 mm[Hg] Simone Rivera [employer]TOGEN[employer] LABORATORY MANAGER Work Phone: [facility] 05-05-2024 03:30-0400 Diastolic blood pressure 50 mm[Hg] REED CLEANER Brigida Corea Work Phone: [facility] 05-05-2024 03:30-0400 Heart rate 85 /min REED CLEANER Brigida Corea Work Phone: [facility] 05-05-2024 03:30-0400 SaO2% (BldA) [Mass fraction] 96 % REED CLEANER Brigida Corea Work Phone: [facility] 05-05-2024 03:30-0400 Systolic blood pressure 103 mm[Hg] REED CLEANERVaishali Nguyen Corea Work Phone: [facility] 05-05-2024 02:30-0400 Respiratory rate 18 /min REED CLEANER Brigida Corea Work Phone: [facility] 05-04-2024 22:54-0400 Body height 160.02 cm REED CLEANER Brigida Corea Work Phone: [facility] 05-04-2024 22:54-0400 Body temperature 97.6 [degF] REED CLEANERVaishali Nguyen Corea Work Phone: [facility] 05-04-2024 22:54-0400 Body weight 105.6 kg REED CLEANER Brigida Corea Work Phone: [facility] 04-09-2024 15:49-0400 Body height 160.02 cm REED CLEANER Brigida Corea Work Phone: [facility] 04-09-2024 15:49-0400 Body temperature 98.6 [degF] REED CLEANER Brigida Corea Work Phone: [facility] 04-09-2024 15:49-0400 Body weight 102.05 kg REED CLEANER Brigida Corea Work Phone: [facility] 04-09-2024 15:49-0400 Diastolic blood pressure 65 mm[Hg] TODD Corea Work Phone: [facility] 04-09-2024 15:49-0400 Heart rate 77 /min TODD Corea Work Phone: [facility] 04-09-2024 15:49-0400 Respiratory rate 18 /min REED CLEANERVaishali Corea Work Phone: [facility] 04-09-2024 15:49-0400 SaO2% (BldA) [Mass fraction] 98 % REED CLEANERVaishali Corea Work Phone: [facility] 04-09-2024 15:49-0400 Systolic blood pressure 133 mm[Hg] TODD Corea Work Phone: [facility] 03-31-2024 17:07-0400 Body mass index (BMI) [Ratio] 39.33 kg/m2 Nikki [place] 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 Work Phone: [facility] 03-31-2024 17:07-0400 Body weight 100.7 kg Nikki [place] 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 Work Phone: [facility] 03-31-2024 17:07-0400 Diastolic blood pressure 38 mm[Hg] Nikki [place] 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 Work Phone: [facility] 03-31-2024 17:07-0400 Heart rate 68 /min Nikki [place] 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 Work Phone: [facility] 03-31-2024 17:07-0400 Systolic blood pressure 106 mm[Hg] Nikki Patric 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 Work Phone: [facility] 03-23-2024 10:57-0400 Body height 160.[address] [facility] Work Phone: [facility] 03-23-2024 10:57-0400 Body mass index (BMI) [Ratio] 38.9 kg/m2 [facility] Work Phone: [facility] 03-23-2024 10:57-0400 Body temperature 98 [degF] [facility] Work Phone: [facility] 03-23-2024 10:57-0400 Body weight 99.79 kg [facility] Work Phone: [facility] 03-23-2024 10:57-0400 Diastolic blood pressure 74 mm[Hg] [facility] Work Phone: [facility] 03-23-2024 10:57-0400 Heart rate 80 /min [facility] Work Phone: [facility] 03-23-2024 10:57-0400 SaO2% (BldA) [Mass fraction] 98 % [facility] Work Phone: [facility] 03-23-2024 10:57-0400 Systolic blood pressure 132 mm[Hg] [facility] Work Phone: [facility] 03-12-2024 09:03-0400 Body height 160.02 cm [facility] Work Phone: [facility] 03-12-2024 09:03-0400 Body temperature 98.2 [degF] [facility] Work Phone: [facility] 03-12-2024 09:03-0400 Body weight 100.6 kg [facility] Work Phone: [facility] 03-12-2024 09:03-0400 Diastolic blood pressure 59 mm[Hg] [facility] Work Phone: [facility] 03-12-2024 09:03-0400 Heart rate 78 /min [facility] Work Phone: [facility] 03-12-2024 09:03-0400 Respiratory rate 18 /min [facility] Work Phone: [facility] 03-12-2024 09:03-0400 SaO2% (BldA) [Mass fraction] 98 % [facility] Work Phone: [facility] 03-12-2024 09:03-0400 Systolic blood pressure 121 mm[Hg] [facility] Work Phone: [facility] 03-12-2024 00:14-0400 Body height 160.02 cm [facility] Work Phone: [facility] 03-12-2024 00:14-0400 Body temperature 97.5 [degF] [facility] Work Phone: [facility] 03-12-2024 00:14-0400 Body weight 102.05 kg [facility] Work Phone: [facility] 03-12-2024 00:14-0400 Diastolic blood pressure 58 mm[Hg] [facility] Work Phone: [facility] 03-12-2024 00:14-0400 Heart rate 86 /min [facility] Work Phone: [facility] 03-12-2024 00:14-0400 Respiratory rate 20 /min [facility] Work Phone: [facility] 03-12-2024 00:14-0400 SaO2% (BldA) [Mass fraction] 98 % [facility] Work Phone: [facility] 03-12-2024 00:14-0400 Systolic blood pressure 120 mm[Hg] [facility] Work Phone: [facility] 02-18-2024 15:41-0400 Body height 160.02 cm [facility] Work Phone: [facility] 02-18-2024 15:41-0400 Body mass index (BMI) [Ratio] 38.7 kg/m2 [facility] Work Phone: [facility] 02-18-2024 15:41-0400 Body weight 99.02 kg [facility] Work Phone: [facility] 02-18-2024 15:41-0400 Diastolic blood pressure 67 mm[Hg] [facility] Work Phone: [facility] 02-18-2024 15:41-0400 Heart rate 96 /min [facility] Work Phone: [facility] 02-18-2024 15:41-0400 Respiratory rate 18 /min [facility] Work Phone: [facility] 02-18-2024 15:41-0400 SaO2% (BldA) [Mass fraction] 100 % [facility] Work Phone: [facility] 02-18-2024 15:41-0400 Systolic blood pressure 120 mm[Hg] [facility] Work Phone: [facility] 02-15-2024 20:25-0400 Body height 160.02 cm [facility] Work Phone: [facility] 02-15-2024 20:25-0400 Body temperature 98.3 [degF] [facility] Work Phone: [facility] 02-15-2024 20:25-0400 Body weight 98.3 kg [facility] Work Phone: [facility] 02-15-2024 20:25-0400 Diastolic blood pressure 53 mm[Hg] [facility] Work Phone: [facility] 02-15-2024 20:25-0400 Heart rate 90 /min [facility] Work Phone: [facility] [facility] 02-15-2024 20:25-0400 Respiratory rate 18 /min [facility] Work Phone: [facility] 02-15-2024 20:25-0400 SaO2% (BldA) [Mass fraction] 99 % [facility] Work Phone: [facility] 02-15-2024 20:25-0400 Systolic blood pressure 126 mm[Hg] [facility] Work Phone: [facility] 01-30-2024 10:58-0400 Body temperature 97.9 [degF] Jax Kubitz DPM Work Phone: [facility] 01-30-2024 10:58-0400 Diastolic blood pressure 66 mm[Hg] Jax Funez DPM Work Phone: [facility] 01-30-2024 10:58-0400 Heart rate 93 /min Jax Funez DPM Work Phone: [facility] 01-30-2024 10:58-0400 Systolic blood pressure 110 mm[Hg] Jax Funez DPM Work Phone: [facility] 01-28-2024 16:56-0400 Diastolic blood pressure 59 mm[Hg] Nikki [place] 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 Work Phone: [facility] 01-28-2024 16:56-0400 Heart rate 93 /min Nikki [place] 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 Work Phone: [facility] 01-28-2024 16:56-0400 Respiratory rate 16 /min Nikki Patric 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 Work Phone: [facility] 01-28-2024 16:56-0400 Systolic blood pressure 105 mm[Hg] Nikki Patric 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 Work Phone: [facility] 01-03-2024 18:35-0400 Body height 160.02 cm Services [facility] [employer] Work Phone: [facility] 01-03-2024 18:35-0400 Body temperature 98.2 [degF] [facility] Work Phone: [facility] 01-03-2024 18:35-0400 Body weight 100.6 kg Services [facility] Work Phone: [facility] 01-03-2024 18:35-0400 Diastolic blood pressure 57 mm[Hg] Services [facility] Work Phone: [facility] 01-03-2024 18:35-0400 Heart rate 99 /min Services [facility] [employer] Work Phone: [facility] 01-03-2024 18:35-0400 Respiratory rate 20 /min [facility] Work Phone: [facility] 01-03-2024 18:35-0400 SaO2% (BldA) [Mass fraction] 100 % [facility] Work Phone: [facility] 01-03-2024 18:35-0400 Systolic blood pressure 127 mm[Hg] [facility] Work Phone: [facility] 10-28-2023 10:03-0400 Body height 160.02 cm [facility] Work Phone: [facility] 10-28-2023 10:03-0400 Body mass index (BMI) [Ratio] 39 kg/m2 [facility] Work Phone: [facility] 10-28-2023 10:03-0400 Body weight 99.93 kg [facility] Work Phone: [facility] 10-28-2023 10:03-0400 Diastolic blood pressure 66 mm[Hg] [facility] Work Phone: [facility] 10-28-2023 10:03-0400 Heart rate 82 /min [facility] Work Phone: [facility] 10-28-2023 10:03-0400 SaO2% (BldA) [Mass fraction] 98 % [facility] Work Phone: [facility] 10-28-2023 10:03-0400 Systolic blood pressure 93 mm[Hg] [facility] Work Phone: [facility] 10-27-2023 20:31-0400 Body height 160.02 cm [facility] Work Phone: [facility] 10-27-2023 20:31-0400 Body temperature 97.6 [degF] [facility] Work Phone: [facility] 10-27-2023 20:31-0400 Body weight 101.8 kg [facility] Work Phone: [facility] 10-27-2023 20:31-0400 Diastolic blood pressure 58 mm[Hg] Services [facility] Work Phone: [facility] 10-27-2023 20:31-0400 Heart rate 90 /min Services [facility] Work Phone: [facility] 10-27-2023 20:31-0400 Respiratory rate 17 /min Services [facility] Work Phone: [facility] 10-27-2023 20:31-0400 SaO2% (BldA) [Mass fraction] 100 % Services [facility] Work Phone: [facility] 10-27-2023 20:31-0400 Systolic blood pressure 147 mm[Hg] Services [facility] Work Phone: [facility] 10-22-2023 13:00-0400 Heart rate 90 /min Mode Adler PT Work Phone: [facility] 10-22-2023 13:00-0400 SaO2% (BldA) [Mass fraction] 93 % Mode Nayely PT Work Phone: [facility] 10-15-2023 09:02-0400 Diastolic blood pressure 71 mm[Hg] Melony Alamo PA-C Work Phone: [facility] 10-15-2023 09:02-0400 Heart rate 80 /min Melony Alamo PA-C Work Phone: [facility] 10-15-2023 09:02-0400 Systolic blood pressure 102 mm[Hg] Melony Alcantaraanchick PA-C Work Phone: [facility] 10-11-2023 14:54-0500 Diastolic blood pressure 45 mm[Hg] Carter Saenz MD Work Phone: [facility] 10-11-2023 14:54-0500 Heart rate 85 /min Carter Saenz MD Work Phone: [facility] 10-11-2023 14:54-0500 Respiratory rate 16 /min Carter Saenz MD Work Phone: [facility] 10-11-2023 14:54-0500 Systolic blood pressure 110 mm[Hg] Carter Saenz MD Work Phone: [facility] 10-06-2023 17:33-0500 Body height 160.02 cm Services [employer] Work Phone: [facility] 10-06-2023 17:33-0500 Body temperature 97.6 [degF] [facility] Work Phone: [facility] 10-06-2023 17:33-0500 Body weight 98.15 kg Services [employer] Work Phone: [facility] 10-06-2023 17:33-0500 Diastolic blood pressure 76 mm[Hg] Services [employer] Work Phone: [facility] 10-06-2023 17:33-0500 Heart rate 103 /min Services [employer] Work Phone: [facility] 10-06-2023 17:33-0500 Respiratory rate 16 /min Services [employer] Work Phone: [facility] 10-06-2023 17:33-0500 SaO2% (BldA) [Mass fraction] 99 % Services [employer] Work Phone: [facility] 10-06-2023 17:33-0500 Systolic blood pressure 124 mm[Hg] Services [employer] Work Phone: [facility] 09-02-2023 10:15-0500 Body height 160.02 cm Michael Morley Other [facility] 09-02-2023 10:15-0500 Body mass index (BMI) [Ratio] 39.36 kg/m2 Michael Morley Other [employer] Other 09-02-2023 10:15-0500 Body weight 100.79 kg Michael Morley Other [employer] Other 09-02-2023 10:15-0500 Body weight 100.78 kg [facility] Work Phone: [facility] 09-02-2023 10:15-0500 Diastolic blood pressure 47 mm[Hg] Michael Morley Other [facility] 09-02-2023 10:15-0500 Respiratory rate 18 /min Michael Morley Other [facility] [employer] Other 09-02-2023 10:15-0500 SaO2% (BldA) [Mass fraction] 100 % Michael Morley Other [facility] [employer] Other 09-02-2023 10:15-0500 Systolic blood pressure 108 mm[Hg] Michael Morley Other [facility] 08-08-2023 08:47-0500 Diastolic blood pressure 55 mm[Hg] MD Salgado [facility] 08-08-2023 08:47-0500 Heart rate 87 /min MD Salgado [facility] 08-08-2023 08:47-0500 Respiratory rate 18 /min MD Salgado [facility] 08-08-2023 08:47-0500 SaO2% (BldA) [Mass fraction] 99 % [facility]-08[facility] 08:47-0500 Systolic blood pressure 119 mm[Hg] [facility] 08-08-2023 01:34-0500 Body temperature 97.6 [degF] [facility] 08-07-2023 23:37-0500 Body height 160.02 cm [facility] 08-07-2023 23:37-0500 Body weight 99.79 kg MD Salgado [facility] 06-10-2023 13:30-0500 Body height 160.02 cm Michael Morley Other [employer] Other 06-10-2023 13:30-0500 Body mass index (BMI) [Ratio] 39 kg/m2 Michael Morley Other [employer] Other 06-10-2023 13:30-0500 Body weight 99.88 kg Michael Morley Other [employer] Other 06-10-2023 13:30-0500 Diastolic blood pressure 63 mm[Hg] Michael Morley Other [employer] Other 06-10-2023 13:30-0500 Respiratory rate 18 /min Michael Morley Other [employer] Other 06-10-2023 13:30-0500 SaO2% (BldA) [Mass fraction] 98 % Michael Morley Other [employer] Other 06-10-2023 13:30-0500 Systolic blood pressure 88 mm[Hg] Michael Morley Other [employer] Other 06-06-2023 11:00-0400 Body height 160.02 cm Reyna Sofia Other [employer] Other 06-06-2023 11:00-0400 Body mass index (BMI) [Ratio] 38.44 kg/m2 Reyna Sofia Other [employer] Other 06-06-2023 11:00-0400 Body temperature 97.3 [degF] Reyna Sofia Other [employer] Other 06-06-2023 11:00-0400 Body weight 98.43 kg Reyna Sofia Other [employer] Other 06-06-2023 11:00-0400 Diastolic blood pressure 62 mm[Hg] Reyna Sofia Other [employer] Other 06-06-2023 11:00-0400 Respiratory rate 20 /min Reyna Sofia Other [employer] Other 06-06-2023 11:00-0400 SaO2% (BldA) [Mass fraction] 99 % Reyna Sofia Other [employer] Other 06-06-2023 11:00-0400 Systolic blood pressure 102 mm[Hg] Reyna Sofia Other [employer] Other 04-08-2023 17:09-0400 Body height 160.02 cm DO Jorgito Schwerer Work Phone: [facility] 04-08-2023 17:09-0400 Body temperature 98.2 [degF] DO Jorgito Schwerer Work Phone: [facility] 04-08-2023 17:09-0400 Body weight 102.45 kg DO Jorgito Schwerer Work Phone: [facility] 04-08-2023 17:09-0400 Diastolic blood pressure 62 mm[Hg] DO Jorgito Schwerer Work Phone: [facility] 04-08-2023 17:09-0400 Heart rate 93 /min DO Jorgito Schwerer Work Phone: [facility] 04-08-2023 17:09-0400 Respiratory rate 16 /min DO Jorgito Schwerer Work Phone: [facility] 04-08-2023 17:09-0400 SaO2% (BldA) [Mass fraction] 94 % DO Jorgito Schwerer Work Phone: [facility] 04-08-2023 17:09-0400 Systolic blood pressure 122 mm[Hg] DO Jorgito Schwerer Work Phone: [facility] 03-23-2023 22:12-0400 Body height 160.02 cm DO Jorgito Schwerer Work Phone: [facility] 03-23-2023 22:12-0400 Body temperature 98 [degF] DO Jorgito Schwerer Work Phone: [facility] 03-23-2023 22:12-0400 Body weight 102.3 kg DO Jorgito Schwerer Work Phone: [facility] 03-23-2023 22:12-0400 Diastolic blood pressure 60 mm[Hg] DO Jorgito Schwerer Work Phone: [facility] 03-23-2023 22:12-0400 Heart rate 83 /min DO Jorgito Schwerer Work Phone: [facility] 03-23-2023 22:12-0400 Respiratory rate 20 /min DO Jorgito Schwerer Work Phone: [facility] 03-23-2023 22:12-0400 SaO2% (BldA) [Mass fraction] 98 % DO Jorgito Schwerer Work Phone: [facility] 03-23-2023 22:12-0400 Systolic blood pressure 137 mm[Hg] DO Jorgito Schwerer Work Phone: [facility] 03-16-2023 17:49-0400 Body temperature 98.6 [degF] DO Jorgito Schwerer Work Phone: [facility] 03-16-2023 17:49-0400 Diastolic blood pressure 80 mm[Hg] DO Jorgito Schwerer Work Phone: [facility] 03-16-2023 17:49-0400 Heart rate 90 /min DO Jorgito Schwerer Work Phone: [facility] 03-16-2023 17:49-0400 Respiratory rate 20 /min DO Jorgito Schwerer Work Phone: [facility] 03-16-2023 17:49-0400 SaO2% (BldA) [Mass fraction] 97 % DO Jorgito Schwerer Work Phone: [facility] 03-16-2023 17:49-0400 Systolic blood pressure 130 mm[Hg] DO Jorgito Schwerer Work Phone: [facility] 02-27-2023 09:45-0400 Body height 160.02 cm Michael Morley Other [employer] Other 02-27-2023 09:45-0400 Body mass index (BMI) [Ratio] 40.08 kg/m2 Michael Morley Other [employer] Other 02-27-2023 09:45-0400 Body weight 102.65 kg Michael Morley Other [employer] Other 02-27-2023 09:45-0400 Diastolic blood pressure 75 mm[Hg] Michael Morley Other [employer] Other 02-27-2023 09:45-0400 Respiratory rate 18 /min Michael Morley Other [employer] Other 02-27-2023 09:45-0400 SaO2% (BldA) [Mass fraction] 99 % Michael Galindoff Other [employer] [facility] [employer] Other 02-27-2023 09:45-0400 Systolic blood pressure 118 mm[Hg] Michael Morley Other [employer] Other 02-23-2023 20:43-0400 Heart rate 85 /min DO Jorgito Schwerer Work Phone: [facility] 02-23-2023 20:21-0400 Body height 160.02 cm DO Jorgito Schwerer Work Phone: [facility] 02-23-2023 20:21-0400 Body temperature 99.1 [degF] DO Jorgito Schwerer Work Phone: [facility] 02-23-2023 20:21-0400 Body weight 11.55 kg DO Jorgito Schwerer Work Phone: [facility] 02-23-2023 20:21-0400 Diastolic blood pressure 60 mm[Hg] DO Jorgito Schwerer Work Phone: [facility] 02-23-2023 20:21-0400 Respiratory rate 20 /min DO Jorgito Schwerer Work Phone: [facility] 02-23-2023 20:21-0400 SaO2% (BldA) [Mass fraction] 98 % DO Jorgito Schwerer Work Phone: [facility] 02-23-2023 20:21-0400 Systolic blood pressure 128 mm[Hg] DO Jorgito Schwerer Work Phone: [facility] 02-04-2023 13:45-0400 Body height 160.02 cm Jorgito Schwerer Other [employer] Other 02-04-2023 13:45-0400 Body mass index (BMI) [Ratio] 38.97 kg/m2 Jorgito Schwerer Other [employer] Other 02-04-2023 13:45-0400 Body weight 99.79 kg Jorgito Schwerer Other [employer] Other 02-04-2023 13:45-0400 Diastolic blood pressure 72 mm[Hg] Jorgito Schwerer Other [employer] Other 02-04-2023 13:45-0400 Respiratory rate 18 /min Jorgito Schwerer Other [employer] Other 02-04-2023 13:45-0400 SaO2% (BldA) [Mass fraction] 96 % Jorgito Schwerer Other [employer] Other 02-04-2023 13:45-0400 Systolic blood pressure 126 mm[Hg] Jorgito Schwerer Other [employer] Other 01-31-2023 23:15-0400 Body height 160.02 cm DO Jorgito Schwerer Work Phone: [facility] 01-31-2023 23:15-0400 Body temperature 97.2 [degF] DO Jorgito Schwerer Work Phone: [facility] 01-31-2023 23:15-0400 Body weight 98.55 kg DO Jorgito Schwerer Work Phone: [facility] 01-31-2023 23:15-0400 Diastolic blood pressure 64 mm[Hg] DO Jorgito Schwerer Work Phone: [facility] 01-31-2023 23:15-0400 Heart rate 96 /min DO Jorgito Schwerer Work Phone: [facility] 01-31-2023 23:15-0400 SaO2% (BldA) [Mass fraction] 96 % DO Jorgito Schwerer Work Phone: [facility] 01-31-2023 23:15-0400 Systolic blood pressure 149 mm[Hg] DO Jorgito Schwerer Work Phone: [facility] 01-28-2023 21:12-0400 Body height 160.02 cm DO Jorgito Schwerer Work Phone: [facility] 01-28-2023 21:12-0400 Body temperature 98.7 [degF] DO Jorgito Schwerer Work Phone: [facility] 01-28-2023 21:12-0400 Body weight 99.7 kg DO Jorgito Schwerer Work Phone: [facility] 01-28-2023 21:12-0400 Diastolic blood pressure 54 mm[Hg] DO Jorgito Schwerer Work Phone: [facility] 01-28-2023 21:12-0400 Heart rate 84 /min DO Jorgito Schwerer Work Phone: [facility] 01-28-2023 21:12-0400 Respiratory rate 18 /min DO Jorgito Schwerer Work Phone: [facility] 01-28-2023 21:12-0400 SaO2% (BldA) [Mass fraction] 99 % DO Jorgito Schwerer Work Phone: [facility] 01-28-2023 21:12-0400 Systolic blood pressure 120 mm[Hg] DO Jorgito Schwerer Work Phone: [facility] 01-02-2023 10:15-0400 Body height 160.02 cm Kenny Villarreal Other [employer] Other 01-02-2023 10:15-0400 Body mass index (BMI) [Ratio] 38.79 kg/m2 Kenny Villarreal Other [employer] Other 01-02-2023 10:15-0400 Body weight 99.34 kg Kenny Villarreal Other [employer] Other 11-05-2022 01:03-0400 Diastolic blood pressure 50 mm[Hg] DO Jorgito Schwerer Work Phone: [facility] 11-05-2022 01:03-0400 Heart rate 88 /min DO Jorgito Schwerer Work Phone: [facility] 11-05-2022 01:03-0400 Respiratory rate 20 /min DO Jorgito Schwerer Work Phone: [facility] 11-05-2022 01:03-0400 SaO2% (BldA) [Mass fraction] 98 % DO Jorgito Schwerer Work Phone: [facility] 11-05-2022 01:03-0400 Systolic blood pressure 135 mm[Hg] DO Jorgito Schwerer Work Phone: [facility] 11-04-2022 21:34-0400 Body height 160.02 cm DO Jorgito Schwerer Work Phone: [facility] 11-04-2022 21:34-0400 Body temperature 97.2 [degF] DO Jorgito Schwerer Work Phone: [facility] 11-04-2022 21:34-0400 Body weight 95.25 kg DO Jorgito Schwerer Work Phone: [facility] 11-03-2022 18:20-0400 Body temperature 97.6 [degF] DO Jorgito Schwerer Work Phone: [facility] 11-03-2022 18:20-0400 Diastolic blood pressure 74 mm[Hg] DO Jorgito Schwerer Work Phone: [facility] 11-03-2022 18:20-0400 Heart rate 67 /min DO Jorgito Schwerer Work Phone: [facility] 11-03-2022 18:20-0400 Respiratory rate 16 /min DO Jorgito Schwerer Work Phone: [facility] 11-03-2022 18:20-0400 SaO2% (BldA) [Mass fraction] 97 % DO Jorgito Schwerer Work Phone: [facility] 11-03-2022 18:20-0400 Systolic blood pressure 111 mm[Hg] DO Jorgito Schwerer Work Phone: [facility] 11-03-2022 01:45-0400 Body height 160.02 cm DO Jorgito Schwerer Work Phone: [facility] 11-03-2022 01:45-0400 Body weight 95.7 kg DO Jorgito Schwerer Work Phone: [facility] 11-02-2022 23:52-0400 Body temperature 98.7 [degF] DO Jorgito Schwerer Work Phone: [facility] 11-02-2022 23:52-0400 Diastolic blood pressure 51 mm[Hg] DO Jorgito Schwerer Work Phone: [facility] 11-02-2022 23:52-0400 Heart rate 70 /min DO Jorgito Schwerer Work Phone: [facility] 11-02-2022 23:52-0400 Respiratory rate 20 /min DO Jorgito Schwerer Work Phone: [facility] 11-02-2022 23:52-0400 SaO2% (BldA) [Mass fraction] 97 % DO Jorgito Schwerer Work Phone: [facility] 11-02-2022 23:52-0400 Systolic blood pressure 124 mm[Hg] DO Jorgito Schwerer Work Phone: [facility] 11-02-2022 21:34-0400 Body height 160.02 cm DO Jorgito Schwerer Work Phone: [facility] 11-02-2022 21:34-0400 Body weight 95.75 kg DO Jorgito Schwerer Work Phone: [facility] 10-20-2022 03:47-0400 Diastolic blood pressure 68 mm[Hg] DO Jorgito Schwerer Work Phone: [facility] 10-20-2022 03:47-0400 Heart rate 59 /min DO Jorgito Schwerer Work Phone: [facility] 10-20-2022 03:47-0400 Respiratory rate 16 /min DO Jorgito Schwerer Work Phone: [facility] 10-20-2022 03:47-0400 SaO2% (BldA) [Mass fraction] 97 % DO Jorgito Schwerer Work Phone: [facility] 10-20-2022 03:47-0400 Systolic blood pressure 103 mm[Hg] DO Jorgito Schwerer Work Phone: [facility] 10-19-2022 22:36-0400 Body height 160.02 cm DO Jorgito Schwerer Work Phone: [facility] 10-19-2022 22:36-0400 Body temperature 97.8 [degF] DO Jorgito Schwerer Work Phone: [facility] 10-19-2022 22:36-0400 Body weight 94.5 kg DO Jorgito Sanchez Work Phone: [facility] 10-16-2022 12:15-0400 Body height 160.02 cm Michaelrober Penadiff Other [employer] Other 10-16-2022 12:15-0400 Body mass index (BMI) [Ratio] 36.84 kg/m2 Michaelrober Penadiff Other [employer] Other 10-16-2022 12:15-0400 Body weight 94.35 kg Michaelrober Penadiff Other [employer] Other 10-16-2022 12:15-0400 Diastolic blood pressure 50 mm[Hg] Michael Morley Other [employer] Other 10-16-2022 12:15-0400 Respiratory rate 18 /min Michael Penadiff Other [employer] Other 10-16-2022 12:15-0400 SaO2% (BldA) [Mass fraction] 100 % Michaelrober Penadiff Other [employer] Other 10-16-2022 12:15-0400 Systolic blood pressure 89 mm[Hg] Michael Morley Other [employer] Other 09-05-2022 12:00-0500 Body height 160.02 cm Kenny Villarreal Other [employer] Other 09-05-2022 12:00-0500 Body mass index (BMI) [Ratio] 37.2 kg/m2 Kenny Villarreal Other [employer] Other 09-05-2022 12:00-0500 Body weight 95.26 kg Kenny Villarreal Other [facility] [employer] Other 08-24-2022 12:15-0500 Body height 160.02 cm Jorgito Schwerer Other [facility] [employer] Other 08-24-2022 12:15-0500 Body temperature 97.9 [degF] Jorgito Schwerer Other [facility] [employer] Other 08-24-2022 12:15-0500 Diastolic blood pressure 80 mm[Hg] Jorgito Schwerer Other [facility] [employer] Other 08-24-2022 12:15-0500 SaO2% (BldA) [Mass fraction] 99 % Jorgito Schwerer Other [facility] [employer] Other 08-24-2022 12:15-0500 Systolic blood pressure 122 mm[Hg] Jorgito Schwerer Other [facility] [employer] Other 08-22-2022 21:24-0500 Body height 160.02 cm DO Jorgito Schwerer Work Phone: [facility] 08-22-2022 21:24-0500 Body temperature 98.6 [degF] DO Jorgito Schwerer Work Phone: [facility] 08-22-2022 21:24-0500 Body weight 96.8 kg DO Jorgito Schwerer Work Phone: [facility] 08-22-2022 21:24-0500 Diastolic blood pressure 66 mm[Hg] DO Jorgito Schwerer Work Phone: [facility] 08-22-2022 21:24-0500 Heart rate 101 /min DO Jorgito Schwerer Work Phone: [facility] 08-22-2022 21:24-0500 Respiratory rate 20 /min DO Jorgito Schwerer Work Phone: [facility] 08-22-2022 21:24-0500 SaO2% (BldA) [Mass fraction] 95 % DO Jorgito Schwerer Work Phone: [facility] 08-22-2022 21:24-0500 Systolic blood pressure 135 mm[Hg] DO Jorgito Schwerer Work Phone: [facility] 08-22-2022 11:15-0500 Body height 160.02 cm Michael Morley Other [employer] Other 08-22-2022 11:15-0500 Body mass index (BMI) [Ratio] 37.5 kg/m2 Michael Morley Other [employer] Other 08-22-2022 11:15-0500 Body weight 96.03 kg Michael Morley Other [employer] Other 08-22-2022 11:15-0500 Diastolic blood pressure 40 mm[Hg] Michael Morley Other [employer] Other 08-22-2022 11:15-0500 Respiratory rate 18 /min Michael Morley Other [employer] Other 08-22-2022 11:15-0500 SaO2% (BldA) [Mass fraction] 98 % Michael Morley Other [employer] Other 08-22-2022 11:15-0500 Systolic blood pressure 96 mm[Hg] Michael Morley Other [employer] Other 08-07-2022 11:30-0500 Body height 160.02 cm Jorgito Schwerer Other [employer] Other 08-07-2022 11:30-0500 Body temperature 97.2 [degF] Jorgito Schwerer Other [employer] Other 08-07-2022 11:30-0500 Diastolic blood pressure 72 mm[Hg] Jorgito Schwerer Other [employer] Other 08-07-2022 11:30-0500 SaO2% (BldA) [Mass fraction] 98 % Jorgito Schwerer Other [employer] Other 08-07-2022 11:30-0500 Systolic blood pressure 112 mm[Hg] Jorgito Schwerer Other [employer] Other 07-22-2022 21:28-0500 Body height 160.02 cm DO Jorgito Schwerer Work Phone: [facility] 07-22-2022 21:28-0500 Body temperature 97.5 [degF] DO Jorgito Schwerer Work Phone: [facility] 07-22-2022 21:28-0500 Body weight 95.25 kg DO Jorgito Schwerer Work Phone: [facility] 07-22-2022 21:28-0500 Diastolic blood pressure 91 mm[Hg] DO Jorgito Schwerer Work Phone: [facility] 07-22-2022 21:28-0500 Heart rate 87 /min DO Jorgito Schwerer Work Phone: [facility] 07-22-2022 21:28-0500 Respiratory rate 20 /min DO Jorgito Schwerer Work Phone: [facility] 07-22-2022 21:28-0500 SaO2% (BldA) [Mass fraction] 100 % DO Jorgito Schwerer Work Phone: [facility] 07-22-2022 21:28-0500 Systolic blood pressure 153 mm[Hg] DO Jorgito Schwerer Work Phone: [facility] 07-05-2022 13:45-0500 Body height 160.02 cm Jorgito Schwerer Other [employer] Other 07-05-2022 13:45-0500 Body mass index (BMI) [Ratio] 36.97 kg/m2 Jorgito Schwerer Other [employer] Other 07-05-2022 13:45-0500 Body temperature 98 [degF] Jorgito Schwerer Other [employer] Other 07-05-2022 13:45-0500 Body weight 94.67 kg Jorgito Schwerer Other [employer] Other 07-05-2022 13:45-0500 Diastolic blood pressure 70 mm[Hg] Jorgito Schwerer Other [employer] Other 07-05-2022 13:45-0500 Respiratory rate 20 /min Jorgito Schwerer Other [employer] Other 07-05-2022 13:45-0500 SaO2% (BldA) [Mass fraction] 98 % Jorgito Schwerer Other [employer] Other 07-05-2022 13:45-0500 Systolic blood pressure 106 mm[Hg] Jorgito Schwerer Other [employer] Other 06-29-2022 21:17-0500 Diastolic blood pressure 78 mm[Hg] DO Jorgito Schwerer Work Phone: [facility] 06-29-2022 21:17-0500 Heart rate 97 /min DO Jorgito Schwerer Work Phone: [facility] 06-29-2022 21:17-0500 Respiratory rate 18 /min DO Jorgito Schwerer Work Phone: [facility] 06-29-2022 21:17-0500 SaO2% (BldA) [Mass fraction] 100 % DO Jorgito Schwerer Work Phone: [facility] 06-29-2022 21:17-0500 Systolic blood pressure 110 mm[Hg] DO Jorgito Schwerer Work Phone: [facility] 06-29-2022 17:23-0500 Body height 160.02 cm DO Jorgito Schwerer Work Phone: [facility] 06-29-2022 17:23-0500 Body temperature 99.4 [degF] DO Jorgito Schwerer Work Phone: [facility] 06-29-2022 17:23-0500 Body weight 92.98 kg DO Jorigto Schwerer Work Phone: [facility] 06-18-2022 15:45-0500 Body height 160.02 cm Jorgito Schwerer Other [employer] Other 06-18-2022 15:45-0500 Body mass index (BMI) [Ratio] 36.77 kg/m2 Jorgito Schwerer Other [employer] Other 06-18-2022 15:45-0500 Body temperature 97.4 [degF] Jorgito Schwerer Other [employer] Other 06-18-2022 15:45-0500 Body weight 94.17 kg Jorgito Schwerer Other [employer] Other 06-18-2022 15:45-0500 Diastolic blood pressure 82 mm[Hg] Jorgito Schwerer Other [employer] Other 06-18-2022 15:45-0500 SaO2% (BldA) [Mass fraction] 99 % Jorgito Schwerer Other [employer] Other 06-18-2022 15:45-0500 Systolic blood pressure 132 mm[Hg] Jorgito Schwerer Other [employer] Other 06-14-2022 01:58-0500 Heart rate 80 /min DO Jorgito Schwerer Work Phone: [facility] 06-14-2022 01:54-0500 Body temperature 97.8 [degF] DO Jorgito Schwerer Work Phone: [facility] 06-14-2022 01:54-0500 Diastolic blood pressure 63 mm[Hg] DO Jorgito Schwerer Work Phone: [facility] 06-14-2022 01:54-0500 Respiratory rate 18 /min DO Jorgito Schwerer Work Phone: [facility] 06-14-2022 01:54-0500 SaO2% (BldA) [Mass fraction] 99 % DO Jorgito Schwerer Work Phone: [facility] 06-14-2022 01:54-0500 Systolic blood pressure 116 mm[Hg] DO Jorgito Schwerer Work Phone: [facility] 06-13-2022 20:38-0500 Body height 160.02 cm DO Jorgito Schwerer Work Phone: [facility] 06-13-2022 20:38-0500 Body weight 93.2 kg DO Jorgito Schwerer Work Phone: [facility] 04-26-2022 11:00-0400 Body height 160.02 cm Simone Mckenzie Other [employer] Other 04-26-2022 11:00-0400 Body mass index (BMI) [Ratio] 36.84 kg/m2 Simone Mckenzie Other [employer] Other 04-26-2022 11:00-0400 Body temperature 96.6 [degF] Simone Mckenzie Other [employer] Other 04-26-2022 11:00-0400 Body weight 94.35 kg Simone Mckenzie Other [employer] Other 04-26-2022 11:00-0400 Diastolic blood pressure 58 mm[Hg] Simone Mckenzie Other [employer] Other 04-26-2022 11:00-0400 SaO2% (BldA) [Mass fraction] 97 % Simone Mckenzie Other [employer] Other 04-26-2022 11:00-0400 Systolic blood pressure 102 mm[Hg] Simone Mckenzie Other [employer] Other 04-04-2022 12:00-0400 Body height 160.02 cm Simone Mckenzie Other [employer] Other 04-04-2022 12:00-0400 Body mass index (BMI) [Ratio] 36.84 kg/m2 Simone Mckenzie Other [employer] Other 04-04-2022 12:00-0400 Body temperature 96.3 [degF] Simone Mckenzie Other [employer] Other 04-04-2022 12:00-0400 Body weight 94.35 kg Simone Mckenzie Other [employer] Other 04-04-2022 12:00-0400 Diastolic blood pressure 60 mm[Hg] Simone Mckenzie Other [employer] Other 04-04-2022 12:00-0400 SaO2% (BldA) [Mass fraction] 97 % Simone Mckenzie Other [employer] Other 04-04-2022 12:00-0400 Systolic blood pressure 104 mm[Hg] Simone Mckenzie Other [employer] Other 04-02-2022 14:45-0400 Body height 160.02 cm Jorgito Schwerer Other [employer] Other 04-02-2022 14:45-0400 Body temperature 97.7 [degF] Jorgito Schwerer Other [employer] Other 04-02-2022 14:45-0400 Diastolic blood pressure 76 mm[Hg] Jorgito Schwerer Other [employer] Other 04-02-2022 14:45-0400 SaO2% (BldA) [Mass fraction] 97 % Jorgito Grecoerer Other [employer] Other 04-02-2022 14:45-0400 Systolic blood pressure 122 mm[Hg] Jorgito Sanchez Other [employer] Other 03-08-2022 13:45-0400 Body height 160.02 cm Michael Penadiff Other [employer] Other 03-08-2022 13:45-0400 Body mass index (BMI) [Ratio] 36.95 kg/m2 Michaelrober Penadiff Other [employer] Other 03-08-2022 13:45-0400 Body weight 94.62 kg Michael Penadiff Other [employer] Other 03-08-2022 13:45-0400 Diastolic blood pressure 60 mm[Hg] Michael Peyman Other [employer] Other 03-08-2022 13:45-0400 Respiratory rate 18 /min Michael Penadiff Other [employer] Other 03-08-2022 13:45-0400 SaO2% (BldA) [Mass fraction] 97 % Michael Morley Other [employer] Other 03-08-2022 13:45-0400 Systolic blood pressure 109 mm[Hg] Michael Morley Other [employer] Other 03-01-2022 13:45-0400 Body height 160.02 cm Jorgito Schwerer Other [employer] Other 03-01-2022 13:45-0400 Body mass index (BMI) [Ratio] 36.15 kg/m2 Jorgito Schwerer Other [employer] Other 03-01-2022 13:45-0400 Body temperature 98.3 [degF] Jorgito Schwerer Other [employer] Other 03-01-2022 13:45-0400 Body weight 92.58 kg Jorgito Schwerer Other [employer] Other 03-01-2022 13:45-0400 Diastolic blood pressure 70 mm[Hg] Jorgito Schwerer Other [employer] Other 03-01-2022 13:45-0400 SaO2% (BldA) [Mass fraction] 97 % Jorgito Schwerer Other [employer] Other 03-01-2022 13:45-0400 Systolic blood pressure 110 mm[Hg] Jorgito Schwerer Other [employer] Other 01-22-2022 11:30-0400 Body height 160.02 cm Jorgito Schwerer Other [employer] Other 01-22-2022 11:30-0400 Body mass index (BMI) [Ratio] 37.37 kg/m2 Jorgito Schwerer Other [employer] Other 01-22-2022 11:30-0400 Body temperature 97.8 [degF] Jorgito Schwerer Other [employer] Other 01-22-2022 11:30-0400 Body weight 95.71 kg Jorgito Schwerer Other [employer] Other 01-22-2022 11:30-0400 Diastolic blood pressure 64 mm[Hg] Jorgito Schwerer Other [employer] Other 01-22-2022 11:30-0400 SaO2% (BldA) [Mass fraction] 97 % Jorgito Schwerer Other [employer] Other 01-22-2022 11:30-0400 Systolic blood pressure 96 mm[Hg] Jorgtio Schwerer Other [employer] Other 01-05-2022 11:45-0400 Body height 160.02 cm Jorgito Schwerer Other [employer] Other 01-05-2022 11:45-0400 Body mass index (BMI) [Ratio] 37.02 kg/m2 Jorgito Schwerer Other [employer] Other 01-05-2022 11:45-0400 Body temperature 98.2 [degF] Jorgito Schwerer Other [employer] Other 01-05-2022 11:45-0400 Body weight 94.8 kg Jorgito Schwerer Other [employer] Other 01-05-2022 11:45-0400 Diastolic blood pressure 70 mm[Hg] Jorgito Schwerer Other [employer] Other 01-05-2022 11:45-0400 SaO2% (BldA) [Mass fraction] 97 % Jorgito Sanchez Other [employer] Other 01-05-2022 11:45-0400 Systolic blood pressure 112 mm[Hg] Jorgito Sanchez Other [employer] Other 12-19-2021 12:45-0400 Body height 160.02 cm Lety Fitt Other [employer] Other 12-19-2021 12:45-0400 Body mass index (BMI) [Ratio] 37.02 kg/m2 Lety Fitt Other [employer] Other 12-19-2021 12:45-0400 Body weight 94.8 kg Lety Fitt Other [employer] Other 12-19-2021 11:30-0400 Body height 160.02 cm Reyna Sofia Other [employer] Other 12-19-2021 11:30-0400 Body mass index (BMI) [Ratio] 36.66 kg/m2 Reyna Sofia Other [employer] Other 12-19-2021 11:30-0400 Body temperature 96.5 [degF] Reyna Sofia Other [employer] Other 12-19-2021 11:30-0400 Body weight 93.9 kg Reyna Sofia Other [employer] Other 12-19-2021 11:30-0400 Diastolic blood pressure 60 mm[Hg] Reyna Sofia Other [employer] Other 12-19-2021 11:30-0400 Respiratory rate 20 /min Reyna Sofia Other [employer] Other 12-19-2021 11:30-0400 SaO2% (BldA) [Mass fraction] 96 % Reyna Sofia Other [employer] Other 12-19-2021 11:30-0400 Systolic blood pressure 102 mm[Hg] Reyna Sofia Other [employer] Other 11-21-2021 12:15-0400 Body height 160.02 cm Michael Morley Other [employer] Other 11-21-2021 12:15-0400 Body mass index (BMI) [Ratio] 36.81 kg/m2 Michael Morley Other [employer] Other 11-21-2021 12:15-0400 Body weight 94.26 kg Michael Morley Other [employer] Other 11-21-2021 12:15-0400 Diastolic blood pressure 54 mm[Hg] Michael Morley Other [employer] Other 11-21-2021 12:15-0400 Respiratory rate 18 /min Michael Morley Other [employer] Other 11-21-2021 12:15-0400 SaO2% (BldA) [Mass fraction] 97 % Michael Morley Other [employer] Other 11-21-2021 12:15-0400 Systolic blood pressure 97 mm[Hg] Michael Penadiff Other [employer] Other 10-10-2021 14:00-0500 Body height 160.02 cm Michael Penadiff Other [employer] Other 10-10-2021 14:00-0500 Body mass index (BMI) [Ratio] 36.75 kg/m2 Michael Penadiff Other [employer] Other 10-10-2021 14:00-0500 Body weight 94.12 kg Michael Penadiff Other [employer] Other 10-10-2021 14:00-0500 Diastolic blood pressure 59 mm[Hg] Michael Penadiff Other [employer] Other 10-10-2021 14:00-0500 Respiratory rate 18 /min Michael Morley Other [employer] Other 10-10-2021 14:00-0500 SaO2% (BldA) [Mass fraction] 99 % Michael Penadiff Other [employer] Other 10-10-2021 14:00-0500 Systolic blood pressure 97 mm[Hg] Michael Penadiff Other [employer] Other 09-26-2021 12:45-0500 Body height 160.02 cm Letyvaishali Guzmant Other [employer] Other 09-26-2021 12:45-0500 Body mass index (BMI) [Ratio] 36.49 kg/m2 Lety Fitt Other [employer] Other 09-26-2021 12:45-0500 Body weight 93.44 kg Lety Falk Other [employer] Other 09-11-2021 14:45-0500 Body height 160.02 cm Jorgito Schwerer Other [employer] Other 09-11-2021 14:45-0500 Body mass index (BMI) [Ratio] 36.42 kg/m2 Jorgito Schwerer Other [employer] Other 09-11-2021 14:45-0500 Body temperature 97.7 [degF] Jorgito Schwerer Other [employer] Other 09-11-2021 14:45-0500 Body weight 93.26 kg Jorgito Schwerer Other [employer] Other 09-11-2021 14:45-0500 Diastolic blood pressure 82 mm[Hg] Jorgito Schwerer Other [employer] Other 09-11-2021 14:45-0500 SaO2% (BldA) [Mass fraction] 99 % Jorgito Schwerer Other [employer] Other 09-11-2021 14:45-0500 Systolic blood pressure 128 mm[Hg] Jorgito Schwerer Other [employer] Other 08-15-2021 11:45-0500 Body height 160.02 cm Jorgito Schwerer Other [employer] Other 08-15-2021 11:45-0500 Body mass index (BMI) [Ratio] 36.74 kg/m2 Jorgito Schwerer Other [employer] Other 08-15-2021 11:45-0500 Body temperature 96.9 [degF] Jorgito Schwerer Other [employer] Other 08-15-2021 11:45-0500 Body weight 94.08 kg Jorgito Schwerer Other [employer] Other 08-15-2021 11:45-0500 Diastolic blood pressure 72 mm[Hg] Jorgito Schwerer Other [employer] Other 08-15-2021 11:45-0500 Respiratory rate 18 /min Jorgito Schwerer Other [employer] Other 08-15-2021 11:45-0500 SaO2% (BldA) [Mass fraction] 99 % Jorgito Schwerer Other [employer] Other 08-15-2021 11:45-0500 Systolic blood pressure 126 mm[Hg] Jorgito Schwerer Other [employer] Other 06-27-2021 11:30-0500 Body height 160.02 cm Michael Morley Jr. Other [employer] Other 06-27-2021 11:30-0500 Body mass index (BMI) [Ratio] 36.04 kg/m2 Michael Morley Jr. Other [employer] Other 06-27-2021 11:30-0500 Body weight 92.31 kg Michael Morley Jr. Other [employer] Other 06-27-2021 11:30-0500 Diastolic blood pressure 52 mm[Hg] Michael Morley JreJyson Other [employer] Other 06-27-2021 11:30-0500 Respiratory rate 18 /min Michael Morley JrJeyson Other [employer] Other 06-27-2021 11:30-0500 SaO2% (BldA) [Mass fraction] 100 % Michael Morley JrJeyson Other [employer] Other 06-27-2021 11:30-0500 Systolic blood pressure 88 mm[Hg] Michael Morley JrJeyson Other [employer] Other 06-20-2021 12:00-0500 Body height 160.02 cm Reyna Sofia Other [employer] Other 06-20-2021 12:00-0500 Body mass index (BMI) [Ratio] 35.25 kg/m2 Reyna Sofia Other [employer] Other 06-20-2021 12:00-0500 Body temperature 96.8 [degF] Reyna Sofia Other [employer] Other 06-20-2021 12:00-0500 Body weight 90.27 kg Reyna Sofia Other [employer] Other 06-20-2021 12:00-0500 Diastolic blood pressure 74 mm[Hg] Reyna Sofia Other [employer] Other 06-20-2021 12:00-0500 Respiratory rate 20 /min Reyna Sofia Other [employer] Other 06-20-2021 12:00-0500 SaO2% (BldA) [Mass fraction] 100 % Reyna Sofia Other [employer] Other 06-20-2021 12:00-0500 Systolic blood pressure 110 mm[Hg] Reyna Sofia Other [employer] Other 06-15-2021 12:30-0500 Body height 160.02 cm Lety Fitt Other [employer] Other 06-15-2021 12:30-0500 Body mass index (BMI) [Ratio] 36.4 kg/m2 Lety Fitt Other [employer] Other 06-15-2021 12:30-0500 Body weight 93.21 kg Lety Fitt Other [employer] Other 06-13-2021 11:45-0500 Body height 160.02 cm Michael Morley Jr. Other [employer] Other 06-13-2021 11:45-0500 Body mass index (BMI) [Ratio] 35.89 kg/m2 Michael Morley Jr. Other [employer] Other 06-13-2021 11:45-0500 Body weight 91.9 kg Michael Morley Jr. Other [employer] Other 06-13-2021 11:45-0500 Diastolic blood pressure 66 mm[Hg] Michael Morley Jr. Other [employer] Other 06-13-2021 11:45-0500 Respiratory rate 20 /min Michael Morley Other [employer] Other 06-13-2021 11:45-0500 SaO2% (BldA) [Mass fraction] 99 % Michael Morley Other [employer] Other 06-13-2021 11:45-0500 Systolic blood pressure 104 mm[Hg] Michael Morley Other [employer] Other 06-12-2021 15:00-0500 Body height 160.02 cm Jorgito Schwerer Other [employer] Other 06-12-2021 15:00-0500 Body mass index (BMI) [Ratio] 36.03 kg/m2 Jorgito Schwerer Other [employer] Other 06-12-2021 15:00-0500 Body weight 92.26 kg Jorgito Schwerer Other [employer] Other 06-12-2021 15:00-0500 Diastolic blood pressure 76 mm[Hg] Jorgito Schwerer Other [employer] Other 06-12-2021 15:00-0500 Respiratory rate 18 /min Jorgito Schwerer Other [employer] Other 06-12-2021 15:00-0500 SaO2% (BldA) [Mass fraction] 95 % Jorgito Schwerer Other [employer] Other 06-12-2021 15:00-0500 Systolic blood pressure 128 mm[Hg] Jorgito Schwerer Other [employer] Other Encounters Encounter Date Encounter Type Care Provider Facility Start: 04-19-2025 End: 04-19-2025 Office outpatient visit 25 minutes Mayra Quiñonez [employer]TO[employer] LABORATORY MANAGER Work Phone: [facility] Comment on above: Rash and nonspecific skin eruption (Primary Dx); Acute left-sided low back pain with left-sided sciatica Start: 04-19-2025 End: 04-19-2025 ambulatory MAYRA QUIÑONEZ Not Available Start: 04-12-2025 End: 04-12-2025 ambulatory KWAME MCNEIL Facility:[facility] Start: 04-12-2025 End: 04-12-2025 Patient encounter procedure Kwame Mcneil MD Work Phone: Orthopaedics Comment on above: Postoperative state (Primary Dx) Start: 04-01-2025 End: 04-02-2025 ambulatory Ashley Valle Facility:[facility] Start: 04-01-2025 End: 04-02-2025 Evaluation and management of inpatient Jerryvaishali Sarmiento DO -[facility] Work Phone: Start: 04-01-2025 End: 04-02-[address] [facility] Work Phone: [facility] Work Phone: Start: 03-31-2025 End: 03-31-2025 ambulatory DARRIUS CLARKE Facility:[facility] Start: 03-30-2025 End: 03-30-2025 Telephone encounter Kwame Mcneil MD Work Phone: Orthopaedics Start: 03-30-2025 End: 03-30-[address] [facility] Work Phone: [facility] Work Phone: Start: 03-30-2025 End: 03-30-2025 Patient encounter procedure Lisa Moreira RD -[facility] Work Phone: Start: 03-03-2025 End: 03-24-2025 Telephone encounter Tashi Osman DPM Work Phone: Orthopaedics Comment on above: request for copy of office notes Start: 03-02-2025 End: 03-02-2025 Subsequent hospital visit by physician Evelyn Balderrama 1 Work Phone: Radiology Comment on above: Pain in right foot [ M79.671] Start: 03-02-2025 End: 03-02-2025 Patient encounter procedure Ml Almanzar RT(R) Radiology Comment on above: Pain in right foot ( Primary Dx); Chronic pain of right ankle; Post-traumatic osteoarthritis of right foot Start: 03-02-2025 End: 03-02-2025 ambulatory Ml Almanzar RT(R) Radiology Comment on above: Radiology XR Start: 03-01-2025 End: 03-01-2025 ambulatory Brigida Corea APRN Work Phone: [facility] Work Phone: Start: 03-01-2025 End: 03-01-2025 Patient encounter procedure Josr Fuentes MD -[facility] Cardiology Work Phone: Start: 02-26-2025 End: 02-26-2025 Patient encounter procedure Josr Fuentes MD -Electrodiagnostics Work Phone: Start: 02-26-2025 End: 02-26-2025 ambulatory Brigida Corea APRN Work Phone: [facility] Work Phone: Start: 02-22-2025 End: 02-22-2025 Office outpatient visit 25 minutes Anil Ma CYTOGENETICS LABORATORY MANAGER Work Phone: [facility] Comment on above: Acute cystitis witho ut hematuria (Primary Dx); Dysuria; Candidal skin infection Start: 02-22-2025 End: 02-22-2025 ambulatory ANIL MA Not Available Start: 02-19-2025 End: 02-19-2025 ambulatory Brigida Corea APRN Work Phone: [facility] Work Phone: Start: 02-19-2025 End: 02-19-2025 Departed Referred Caroline Bradenfavian DO RES -Lab [facility] Work Phone: Start: 02-18-2025 End: 02-18-2025 Patient encounter procedure Kwame Mcneil MD Work Phone: Orthopaedics Comment on above: Postoperative state (Primary Dx) Chronic pain of left thumb (Primary Dx) Start: 02-18-2025 End: 02-18-2025 ambulatory Janine Stock OTR/L Work Phone: [facility] Occupational Therapy Start: 02-18-2025 End: 02-18-2025 Subsequent hospital visit by physician [facility] Work Phone: Radiology Comment on above: Post-operative state [Z98.890] Start: 02-16-2025 End: 02-16-2025 ambulatory Brigida Corea APRN Work Phone: [facility] Work Phone: Start: 02-16-2025 End: 02-16-2025 Patient encounter procedure Ashley Mckeon [facility] Work Phone: Start: 02-15-2025 End: 02-15-2025 ambulatory DELROY MERINO Not Available Start: 02-15-2025 End: 02-15-2025 Office outpatient visit 15 minutes Delroy Merino DPM Work Phone: [facility] Comment on above: DJD (degenerative parag int disease), ankle and foot, left (Primary Dx); DJD (degenerative joint disease), ankle and foot, right; Posterior tibial tendinitis of left leg; Posterior tibial tendonitis of right leg Start: 02-14-2025 End: 02-14-2025 Emergency department patient visit Brigida Corea APRN Work Phone: -Emergency Room Work Phone: Start: 02-03-2025 End: 02-03-2025 ambulatory KWAME MCNEIL Facility:[facility] Start: 02-03-2025 End: 02-03-2025 Patient encounter procedure Cast Tech Samantha Work Phone: Orthopaedics Comment on above: Postoperative state (Primary Dx) Start: 02-01-2025 End: 02-01-2025 ambulatory DELROY MERINO Not Available Start: 02-01-2025 End: 02-01-2025 Office outpatient visit 25 minutes Delroy Merino DPM Work Phone: [facility] Comment on above: Osteochondritis diss ecans of right ankle (Primary Dx); DJD (degenerative joint disease), ankle and foot, left; DJD (degenerative joint disease), ankle and foot, right; Posterior tibial tendinitis of left leg Start: 02-01-2025 End: 02-01-2025 Bamboo flowsheet Delroy Merino DPM Work Phone: [facility] Start: 02-01-2025 End: 02-01-2025 Bamboo flowsheet Delroy Merino DPM Work Phone: [facility] Start: 01-29-2025 End: 02-01-2025 ambulatory Kwame Mcneil MD Work Phone: Orthopaedics Start: 01-29-2025 End: 02-01-2025 Patient encounter procedure Kwame Mcneil MD Work Phone: Orthopaedics Comment on above: Pin in my thumb Start: 01-20-2025 End: 01-20-2025 Postop follow up visit related to original px Aline Hammonds PA-C Work Phone: Orthopaedics Comment on above: Postoperative state Start: 01-20-2025 End: 01-20-2025 ambulatory Simone Anamika RT(R) Radiology Comment on above: Radiology XR Start: 01-20-2025 End: 01-20-2025 Subsequent hospital visit by physician Evelyn Bhakta Work Phone: Radiology Comment on above: Post-operative state [Z98.890] Start: 01-20-2025 End: 01-20-2025 Patient encounter procedure Simone Anamika RT(R) Radiology Comment on above: Postoperative state (Primary Dx) Start: 01-16-2025 End: 01-16-2025 Patient encounter procedure Delroy Merino DPM -[facility] Work Phone: Start: 01-16-2025 End: 01-16-2025 ambulatory Andrea Sims RN NURSE TONSORIAL ARTIST Comment on above: Patient Update Start: 01-15-2025 End: 01-15-2025 Emergency department patient visit Brigida Corea APRN Work Phone: -Emergency Room Work Phone: Start: 01-14-2025 End: 01-14-2025 Patient encounter procedure [employer] Tech Norah Work Phone: Orthopaedics Comment on above: Postoperative state (Primary Dx) Start: 01-14-2025 End: 01-14-2025 ambulatory KWAME MCNEIL Facility:[facility] Start: 01-14-2025 End: 01-14-2025 Subsequent hospital visit by physician [facility] Work Phone: Radiology Comment on above: Post-operative state [Z98.890] Start: 01-13-2025 End: 01-13-2025 Orders Only Kwame Mcneil MD Work Phone: Orthopaedics Comment on above: Post-operative state (Primary Dx) Pain in hand Start: 01-12-2025 End: 01-12-2025 Emergency department patient visit Brigida Corea APRN Work Phone: [facility]-Emergency Room Work Phone: Start: 01-12-2025 End: 01-13-2025 Orders Only Kwame Mcneil MD Work Phone: Pulmonary Medicine Comment on above: Post-operative state (Primary Dx) Start: 01-07-2025 End: 01-07-2025 ambulatory KWAME MCNEIL Facility:[facility] Start: 12-23-2024 End: 12-23-2024 ambulatory No DESIR Facility:[facility] Start: 12-23-2024 End: 12-23-2024 Patient encounter procedure No DESIR [facility] Start: 12-22-2024 End: 12-22-2024 ambulatory LUIS MATHEW Facility:[facility] Start: 12-21-2024 End: 12-21-2024 Bamboo flowsheet Delroy Merino DPM Work Phone: [facility] Start: 12-21-2024 End: 12-21-2024 Bamboo flowsheet Delroy Merino DPM Work Phone: [facility] Start: 12-21-2024 End: 12-21-2024 Office outpatient visit 15 minutes Delroy Merino DPM Work Phone: [facility] Comment on above: Osteochondritis diss ecans of right ankle (Primary Dx); Capsulitis of metatarsophalangeal (MTP) joint of right foot; Posterior tibial tendinitis of left leg; Other specified disorders of synovium, left ankle and foot Start: 12-21-2024 End: 12-21-2024 ambulatory DELROY MERINO Not Available Start: 12-16-2024 End: 12-16-2024 Preprocedural examination done [facility] Work Phone: [facility] Work Phone: Start: 12-16-2024 Encounter for other preprocedural examination [facility] Start: 12-16-2024 End: 12-16-2024 [facility] Work Phone: Pre Anesthesia Comment on above: Pre-op evaluation (P rimary Dx); Morbid obesity (HCC); Other migraine without status migrainosus, not intractable; Uncomplicated asthma, unspecified asthma severity, unspecified whether persistent ([facility]); Current smoker; Sleep apnea, unspecified type; Type 2 diabetes mellitus without retinopathy ([facility]); Bipolar 1 disorder (HCC); Posttraumatic stress disorder; Marijuana use Start: 12-07-2024 End: 12-07-2024 [facility] Facility:[facility] Start: 12-01-2024 End: 12-01-2024 Office outpatient visit 25 minutes Delroy Merino DPM Work Phone: [facility] Comment on above: Capsulitis of metata rsophalangeal (MTP) joint of right foot (Primary Dx); Posterior tibial tendinitis of left leg; Other specified disorders of synovium, left ankle and foot Start: 12-01-2024 End: 12-01-2024 ambulatory DELROY MERINO Not Available Start: 12-01-2024 End: 12-01-2024 Bamboo flowsheet Delroy Merino DPM Work Phone: [facility] Start: 12-01-2024 End: 12-01-2024 Bamboo flowsheet Delroy Merino DPM Work Phone: [facility] Start: 12-01-2024 End: 12-01-2024 Telephone encounter Kwaem Mcneil MD Work Phone: [facility] [place] Comment on above: FMLA Paperwork Start: 11-21-2024 End: 11-21-2024 Office outpatient visit 15 minutes Liz HEDRICK Work Phone: [facility] Comment on above: Dental infection (Pr imary Dx) Start: 11-21-2024 End: 11-21-2024 ambulatory LIZ ESPINAL Not Available Start: 11-18-2024 End: 11-18-2024 Preprocedural examination done [facility] [place] 2 Work Phone: [facility] Work Phone: Start: 11-18-2024 Encounter for other preprocedural examination KWAME MCNEIL [facility] Start: 11-18-2024 End: 11-18-2024 PAT [facility] [place] 2 Work Phone: Pre Anesthesia Comment on above: Pre-op examination ( Primary Dx); Other migraine without status migrainosus, not intractable; Bipolar 1 disorder (HCC); Morbid obesity (HCC); Type 2 diabetes mellitus without retinopathy (HCC); Kidney stones; Uncomplicated asthma, unspecified asthma severity, unspecified whether persistent (HCC); Current smoker; Sleep apnea, unspecified type; Restless legs; Posttraumatic stress disorder; S/P lumpectomy, left breast Start: 11-06-2024 End: 11-06-2024 Orders Only Kwame Mcneil MD Work Phone: Orthopaedics Comment on above: H/O thumb surgery (P rimary Dx); Primary osteoarthritis of first carpometacarpal joint of left hand; De Quervain's tenosynovitis Start: 11-05-2024 Non-patient / Non-visit Brigida Corea REED CLEANER Work Phone: [facility] Work Phone: Start: 11-05-2024 Non-patient / Non-visit Brigida Corea REED CLEANER Work Phone: [facility] Work Phone: Start: 11-05-2024 End: 11-05-2024 Patient encounter procedure Brigida Corea APRN Work Phone: [facility] Work Phone: Start: 11-05-2024 End: 11-05-2024 ambulatory Brigida Corea REED CLEANER Work Phone: [facility] Work Phone: Start: 10-28-2024 End: 10-28-2024 Telephone encounter Kwame Mcneil MD Work Phone: [facility] [place] Comment on above: Patient Question Start: 10-28-2024 End: 10-28-2024 Patient encounter procedure Elizabeth Daigle RT(R) Radiology Comment on above: Pain due to total kn ee replacement, initial encounter (HCC) (HCC) (Primary Dx) Start: 10-28-2024 End: 10-28-2024 ambulatory Elizabeth Daigle RT(R) Radiology Comment on above: Radiology XR Start: 10-28-2024 End: 10-28-2024 Subsequent hospital visit by physician Evelyn Balderrama 1 Work Phone: Radiology Comment on above: Acute pain of left k nee [M25.562] Start: 10-26-2024 End: 10-27-2024 Emergency department patient visit Lyndon Gallardo [facility] Start: 10-23-2024 End: 10-23-2024 Brigida Corea APRN Work Phone: [facility] Work Phone: Start: 10-23-2024 End: 10-23-2024 Emergency department patient visit Brigida Dodgee Anmol BROOKS Work Phone: [facility] Work Phone: Start: 10-12-2024 End: 10-12-2024 ambulatory KWAME MCNEIL Facility:[facility] Start: 10-12-2024 End: 10-12-2024 Office outpatient visit 25 minutes Kwame Mcneil MD Work Phone: Orthopaedics Comment on above: H/O thumb surgery (P rimary Dx); De Quervain's tenosynovitis, left; Primary osteoarthritis of first carpometacarpal joint of left hand Start: 10-12-2024 End: 10-12-2024 Subsequent hospital visit by physician Evelyn Balderrama 1 Work Phone: Radiology Comment on above: Right hand pain [M79 .641] Start: 10-09-2024 End: 10-10-2024 Brigida Corea APRN Work Phone: [facility] Work Phone: Start: 10-09-2024 End: 10-10-2024 Emergency department patient visit Brigida Corea APRN Work Phone: [facility] Work Phone: Start: 10-07-2024 End: 10-07-2024 Patient encounter procedure Brigida Corea APRN Work Phone: [facility] [place] Work Phone: Start: 10-07-2024 End: 10-07-2024 Brigida Corea APRN Work Phone: [facility] [place] Work Phone: Start: 10-07-2024 End: 10-07-2024 ambulatory Brigida Corea REED CLEANER Work Phone: [facility] Work Phone: Start: 10-05-2024 Non-patient / Non-visit Brigida Corea REED CLEANER Work Phone: [facility] Physician [facility] Work Phone: Start: 10-05-2024 Brigida Chauhan PRN Work Phone: [facility] Physician [facility] Work Phone: Start: 10-01-2024 Non-patient / Non-visit Brigida Corea REED CLEANER Work Phone: [facility] Physician [facility] Work Phone: Start: 10-01-2024 End: 10-01-2024 Admission to same day surgery center Brigida Corea REED CLEANER Work Phone: [facility] Work Phone: Start: 10-01-2024 End: 10-01-2024 Brigida Corea REED CLEANER Work Phone: [facility] Work Phone: Start: 10-01-2024 End: 10-01-2024 ambulatory Brigida Corea REED CLEANER Work Phone: [facility] Work Phone: Start: 09-27-2024 End: 09-27-2024 Brigida Corea REED CLEANER Work Phone: [facility] Work Phone: Start: 09-27-2024 End: 09-27-2024 Emergency department patient visit Brigida Corea REED CLEANER Work Phone: [facility] Work Phone: Start: 09-17-2024 End: 09-17-2024 ambulatory Brigida Corea REED CLEANER Work Phone: [facility] Work Phone: Start: 09-17-2024 End: 09-17-2024 Patient encounter procedure Brigida Corea APRN Work Phone: [facility] Work Phone: Start: 09-17-2024 End: 09-17-2024 Brigida Corea APRN Work Phone: [facility] [place] Work Phone: Start: 09-17-2024 End: 09-17-2024 Patient encounter procedure Brigida Corea APRN Work Phone: [facility] Work Phone: Start: 09-17-2024 End: 09-17-2024 Brigida Corea APRN Work Phone: [facility] Work Phone: Start: 09-17-2024 End: 09-17-2024 ambulatory Brigida Corea APRN Work Phone: [facility] Work Phone: Start: 09-15-2024 End: 09-15-2024 Bamboo flowslisandro Merino DPM Work Phone: [facility] Start: 09-15-2024 End: 09-15-2024 Bamboo flowsheet Delroy Merino DPM Work Phone: [facility] Start: 09-15-2024 End: 09-15-2024 Telephone encounter Mimi Singh DO Work Phone: Gastroenterology Start: 09-15-2024 End: 09-15-2024 ambulatory DELROY MERINO Not Available Start: 09-15-2024 End: 09-15-2024 Office outpatient visit 15 minutes Delroy Merino DPM Work Phone: [facility] Comment on above: Closed nondisplaced fracture of middle phalanx of lesser toe of right foot, initial encounter (Primary Dx); Posterior tibial tendinitis of left leg; Other specified disorders of synovium, left ankle and foot; Contracture of right ankle; Contracture of left ankle; DJD (degenerative joint disease), ankle and foot, left; DJD (degenerative joint disease), ankle and foot, right Start: 09-15-2024 End: 09-15-2024 ambulatory DELROY MEIRNO Not Available Start: 09-10-2024 Non-patient / Non-visit Brigida Corea REED CLEANER Work Phone: [facility] Physician [facility] Work Phone: Start: 09-10-2024 Brigida Chauhan PRN Work Phone: [facility] Physician [facility] Work Phone: Start: 09-09-2024 End: 09-09-2024 Patient encounter procedure Brigida Corea REED CLEANER Work Phone: [facility] Work Phone: Start: 09-09-2024 End: 09-09-2024 Brigida Corea REED CLEANER Work Phone: [facility] Work Phone: Start: 09-09-2024 End: 09-09-2024 ambulatory Brigida Corea REED CLEANER Work Phone: [facility] Work Phone: Start: 09-01-2024 End: 09-01-2024 Bamboo flowsheet Delroy Merino DPM Work Phone: [facility] Start: 09-01-2024 End: 09-01-2024 Bamedgardoo flowslisandro Merino DPM Work Phone: [facility] Start: 09-01-2024 End: 09-01-2024 ambulatory Brigida Corea REED CLEANER Work Phone: [facility] Work Phone: Start: 09-01-2024 End: 09-01-2024 Patient encounter procedure Brigida Corea REED CLEANER Work Phone: [facility] Physician [facility] Work Phone: Start: 09-01-2024 End: 09-01-2024 Brigida Corea REED CLEANER Work Phone: [facility] Physician [facility] Work Phone: Start: 09-01-2024 End: 09-01-2024 ambulatory DELROY MERINO Not Available Start: 09-01-2024 End: 09-01-2024 Office outpatient visit 25 minutes Delroy Merino DPM Work Phone: [facility] [place] [facility] Comment on above: Closed nondisplaced fracture of middle phalanx of lesser toe of right foot, initial encounter (Primary Dx); Posterior tibial tendinitis of left leg; Contracture of left ankle; Other specified disorders of synovium, left ankle and foot; Contracture of right ankle Start: 08-31-2024 End: 08-31-2024 Patient encounter procedure Ml Almanzar RT(R) Radiology Start: 08-31-2024 End: 08-31-2024 Office outpatient new 30 minutes Kwame Mcneil MD Work Phone: Orthopaedics Comment on above: H/O thumb surgery (P rimary Dx); De Quervain's tenosynovitis, left Start: 08-31-2024 End: 08-31-2024 ambulatory Ml Almanzar RT(R) Radiology Comment on above: Radiology XR Start: 08-31-2024 End: 08-31-2024 Subsequent hospital visit by physician Evelyn Balderrama 1 Work Phone: Radiology Comment on above: Pain of left hand [M 79.642] Start: 08-29-2024 End: 08-29-2024 Brigida Corea REED CLEANER Work Phone: [facility] Work Phone: Start: 08-29-2024 End: 08-29-2024 Emergency department patient visit Brigida Corea REED CLEANER Work Phone: [facility] Work Phone: Start: 08-27-2024 End: 08-27-2024 Bamboo flowsheet Simone Rivera CYTOGENETICS LABORATORY MANAGER Work Phone: [facility] Start: 08-27-2024 End: 08-27-2024 Bamboo flowsheet Simone Rivera CYTOGENETICS LABORATORY MANAGER Work Phone: [facility] Start: 08-27-2024 End: 08-27-2024 Office outpatient visit 15 minutes Simone Rivera CYTOGENETICS LABORATORY MANAGER Work Phone: [facility] Comment on above: Lumbar spondylosis ( Primary Dx); Lumbar facet arthropathy; Lumbosacral radiculopathy; Muscle spasm; RLS (restless legs syndrome); Episodic migraine (CMS/HCC) Start: 08-27-2024 End: 08-27-2024 ambulatory SIMONE RIVERA Not Available Start: 08-25-2024 End: 08-25-2024 Orders Only Kwame Mcneil MD Work Phone: Orthopaedics Comment on above: Pain of left hand (P rimary Dx) Start: 08-22-2024 End: 08-22-2024 Brigida Corea APRN Work Phone: [facility] Work Phone: Start: 08-22-2024 End: 08-22-2024 Emergency department patient visit Brigida Corea APRN Work Phone: [facility] Work Phone: Start: 08-17-2024 End: 08-17-2024 Office outpatient visit 15 minutes Delroy Merino DPM Work Phone: [facility] Comment on above: Closed nondisplaced fracture of middle phalanx of lesser toe of right foot, initial encounter (Primary Dx); Posterior tibial tendinitis of left leg; Contracture of left ankle; Other specified disorders of synovium, left ankle and foot Start: 08-17-2024 End: 08-17-2024 ambulatory DELROY MERINO Not Available Start: 08-17-2024 End: 08-17-2024 Bamboo flowsheet Delroy Merino DPM Work Phone: [facility] Start: 08-17-2024 End: 08-17-2024 Bamboo flowsheet Delroy Merino DPM Work Phone: [facility] Start: 08-14-2024 End: 08-14-2024 Bamboo flowsheet Delroy Tien Merino DPM Work Phone: [facility] Start: 08-14-2024 End: 08-14-2024 Bamboo flowsheet Delroy Tien Brown DPM Work Phone: [facility] Start: 08-14-2024 End: 08-14-2024 ambulatory DELROY MERNIO Not Available Start: 08-14-2024 End: 08-14-2024 Office outpatient visit 15 minutes Delroy Merino DPM Work Phone: [facility] Comment on above: Closed nondisplaced fracture of middle phalanx of lesser toe of right foot, initial encounter (Primary Dx); Contracture of left ankle; Posterior tibial tendinitis of left leg Start: 08-13-2024 End: 08-13-2024 Telephone encounter Kwame Mcneil MD Work Phone: Orthopaedics Comment on above: Appointment Start: 08-06-2024 End: 08-07-2024 Brigida Corea APRN Work Phone: [facility]Emergency Room Work Phone: Start: 08-06-2024 End: 08-07-2024 Emergency department patient visit Brigida Corea APRN Work Phone: [facility] Work Phone: Start: 08-03-2024 End: 08-03-2024 Bamboo flowsheet Delroy Merino DPM Work Phone: [facility] Start: 08-03-2024 End: 08-03-2024 Bamboo flowsheet Delroy Merino DPM Work Phone: [facility] Start: 08-03-2024 End: 08-03-2024 Office outpatient visit 25 minutes Delroy Merino DPM Work Phone: [facility] Comment on above: Closed nondisplaced fracture of middle phalanx of lesser toe of right foot, initial encounter (Primary Dx) Start: 08-03-2024 End: 08-03-2024 ambulatory DELROY MERINO Not Available Start: 07-27-2024 End: 08-12-2024 Telephone encounter Delroy Merino DPM Work Phone: [facility] Start: 07-13-2024 End: 07-13-2024 Bamboo flowsheet Delroy Merino DPM Work Phone: [facility] Start: 07-13-2024 End: 07-13-2024 Bamboo flowsheet Delroy Merino DPM Work Phone: [facility] Start: 07-13-2024 End: 07-13-2024 ambulatory DELROY MERINO Not Available Start: 07-13-2024 End: 07-13-2024 ambulatory DELROY MERINO Not Available Start: 07-13-2024 End: 07-13-2024 Office outpatient visit 15 minutes Delroy Merino DPM Work Phone: [facility] Comment on above: Closed nondisplaced fracture of middle phalanx of lesser toe of right foot, initial encounter (Primary Dx) Start: 06-16-2024 End: 06-16-2024 ambulatory Brigida Corea APRN Work Phone: [facility] Work Phone: Start: 06-16-2024 End: 06-16-2024 Patient encounter procedure Brigida Corea APRN Work Phone: [facility] Re[facility] Spine Work Phone: Start: 06-16-2024 End: 06-16-2024 ambulatory Brigida Corea APRN Work Phone: [facility] Work Phone: Start: 06-16-2024 End: 06-16-2024 Patient encounter procedure Brigida Corea REED CLEANER Work Phone: [facility] Work Phone: Start: 06-01-2024 End: 06-01-2024 Patient encounter procedure TODD Corea Work Phone: [facility] Work Phone: Start: 06-01-2024 End: 06-01-2024 ambulatory REED CLEANER Brigida Corea Work Phone: [facility] Work Phone: Start: 05-25-2024 End: 05-25-2024 ambulatory REED CLEANER Brigida Corea Work Phone: [facility] Work Phone: Start: 05-25-2024 End: 05-25-2024 Patient encounter procedure TODD Corea Work Phone: [facility] Physician [facility] Work Phone: Start: 05-10-2024 End: 05-10-2024 Emergency department patient visit Francisco Marin [facility] Start: 05-10-2024 End: 06-03-2024 Telephone encounter Simone Rivera NP Work Phone: [facility] Start: 05-08-2024 End: 05-09-2024 Emergency department patient visit TODD Corea Work Phone: [facility]-Emergency Room Work Phone: Start: 05-08-2024 End: 05-08-2024 ambulatory REED CLEANER Brigida Corea Work Phone: [facility] Work Phone: Start: 05-08-2024 End: 05-08-2024 Departed Referred TODD Corea Work Phone: [facility] Start: 05-07-2024 End: 05-07-2024 ambulatory SIMONE RIVERA Not Available Start: 05-07-2024 End: 05-07-2024 Office outpatient visit 25 minutes Simone Rivera CYTOGENETICS LABORATORY MANAGER Work Phone: [facility] Comment on above: Lumbar radiculopathy (Primary Dx); Lumbar spondylosis; Lumbar facet arthropathy; Muscle spasm; RLS (restless legs syndrome); Episodic migraine (CMS/HCC); Neuropathy Start: 05-07-2024 End: 05-07-2024 Bamboo flowsheet Simone Rivera CYTOGENETICS LABORATORY MANAGER Work Phone: [facility] Start: 05-07-2024 End: 05-07-2024 Bamboo flowsheet Simone Rivera CYTOGENETICS LABORATORY MANAGER Work Phone: [facility] Start: 05-04-2024 End: 05-05-2024 Emergency department patient visit TODD Corea Work Phone: [facility]Emergency Room Work Phone: Start: 04-09-2024 End: 04-09-2024 Emergency department patient visit TODD Corea Work Phone: [facility]Emergency [facility] Work Phone: Start: 03-31-2024 End: 03-31-[address] 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 Work Phone: [facility] Work Phone: Start: 03-23-2024 End: 03-23-2024 Patient encounter procedure [facility] Work Phone: [facility] [place] Work Phone: Start: 03-12-2024 End: 03-12-2024 Emergency department patient visit Services Family [facility] Work Phone: [facility]Emergency Room Work Phone: Start: 03-12-2024 End: 03-12-2024 Emergency department patient visit Services Family [facility] Work Phone: [facility]Emergency Room Work Phone: Start: 03-11-2024 End: 03-11-[address] [facility] Work Phone: [facility] Work Phone: Start: 03-11-2024 End: 03-11-2024 Patient [address] procedure [facility] Work Phone: [facility] [place] Work Phone: Start: 02-27-2024 Telephone encounter Sugey Beckett RN General Surgery Comment on above: Outside Referral Req uests Start: 02-18-2024 End: 02-18-[address] [facility] Work Phone: [facility] Work Phone: Start: 02-18-2024 End: 02-18-2024 Patient [address] procedure [facility] Work Phone: [facility] Work Phone: Start: 02-15-2024 End: 02-15-2024 Emergency department patient visit Services [facility] Work Phone: [facility]Emergency Room Work Phone: Start: 01-30-2024 End: 01-30-2024 Office outpatient visit 15 minutes Jax Funez DPM Work Phone: [facility] Comment on above: Chronic pain of left ankle (Primary Dx); Tendinosis of ankle Start: 01-28-2024 End: 01-28-2024 Patient encounter procedure Nikki Spivey APRN.MEASURER Work Phone: Urology Comment on above: Stress incontinence of urine (Primary Dx); Overactive bladder; Urinary tract infection without hematuria, site unspecified; Vaginal dryness; Kidney stone Start: 01-14-2024 End: 01-14-[address] [facility] Work Phone: [facility] Work Phone: Start: 01-14-2024 End: 01-14-[address] [facility] Work Phone: [facility] Services Start: 01-03-2024 End: 01-03-2024 Emergency department patient visit Services [facility] Work Phone: [facility]Emergency Room Work Phone: Start: 12-23-2023 End: 12-23-2023 Patient encounter procedure Mimi Hermosillo OD Work Phone: Ophthalmology Comment on above: Type 2 diabetes jaimee itus without retinopathy (HCC) (Primary Dx); Bilateral presbyopia; Dry eye syndrome of bilateral lacrimal glands Start: 11-28-2023 End: 11-28-2023 Patient encounter procedure Jacqui Castro MD Work Phone: Urology Comment on above: Stress incontinence of urine (Primary Dx); Screening for genitourinary condition; Overactive bladder; Other constipation; Vaginal pain Start: 11-14-2023 End: 11-14-2023 ambulatory MD Naomi Feliciano [facility] Work Phone: Start: 11-14-2023 End: 11-14-2023 Patient encounter procedure MD Naomi Feliciano [facility] [place] Work Phone: Start: 10-28-2023 End: 10-28-[address] [facility] Work Phone: [facility] Work Phone: Start: 10-28-2023 End: 10-28-[address] procedure [address] [facility] Work Phone: [facility] Work Phone: Start: 10-27-2023 End: 10-27-2023 Emergency department patient visit Services [facility] Work Phone: [facility]Emergency Room Work Phone: Start: 10-23-2023 End: 10-23-2023 ambulatory [facility] Start: 10-22-2023 End: 10-22-2023 Admission to same day surgery center Mode Adler PT Work Phone: [place] [facility] Comment on above: PTTD (posterior [...] PT Work Phone: [facility] [place] Start: 10-15-2023 ambulatory Barbara Rubio RT(R) Radiology Comment on above: Radiology XR [...] foot surgery; Myalgia; Pelvic floor dysfunction Start: 10-15-2023 End: 10-15-2023 Subsequent hospital visit by physician Evelyn Raya Work Phone: Radiology Comment on above: Spinal stenosis, lum bar region with neurogenic claudication [M48.062] Start: 10-11-2023 End: 10-11-2023 Patient encounter procedure Carter Saenz MD Work Phone: Urology Comment on above: Stress incontinence of urine (Primary Dx); Stress incontinence, male Start: 10-08-2023 End: 10-08-2023 Patient encounter procedure Simone RIVERA Work Phone: Audiology Comment on above: Ear pain, bilateral (Primary Dx); Sensorineural hearing loss (SNHL) of both ears; Tinnitus, bilateral; Dizziness Start: 10-06-2023 End: 10-06-2023 Emergency department patient visit Services [facility] Work Phone: [facility]Emergency Room Work Phone: Start: 09-10-2023 ambulatory Marley Pycraft RT(R) Radiology Ct Scan Comment on above: Radiology CT Radiology US Start: 09-10-2023 Patient encounter procedure Alejandra nni Pycraft RT(R) [facility] Start: 09-10-2023 End: 09-10-2023 Subsequent hospital visit by physician [facility] Radiology Ct Scan Comment on above: Sensorineural hearin g loss (SNHL) of both ears [H90.3] Start: 09-06-2023 Telephone encounter Melony winters PA-C Work Phone: Spine Medicine Comment on above: Patient Update (spok e to patient. kidney pain vs back spine pain. she will be seen in office. ok to schedule. ) Start: 09-02-[address] [facility] Work Phone: [facility] Management Work Phone: Start: 09-02-2023 End: 09-02-2023 ambulatory Michael Morley Other [employer] Other Start: 09-02-2023 Follow-up encounter Michael regan [facility] Start: 09-02-2023 Telephone encounter Michael regan [facility] Start: 09-02-2023 End: 09-02-2023 Patient encounter procedure Services [facility] Work Phone: [facility]- Start: 08-19-2023 End: 08-19-2023 ambulatory Michael Morley Other [employer] Other Start: 08-19-2023 Telephone encounter Michael regan [facility] Start: 08-12-2023 End: 08-12-2023 ambulatory MD Naomi Feliciano [facility] Work Phone: Start: 08-12-2023 End: 08-12-2023 Patient encounter procedure MD Naomi Feliciano [facility] [place] Work Phone: Start: 08-07-2023 End: 08-08-2023 Emergency department patient visit MD Naomi Feliciano [facility] Work Phone: Start: 07-23-2023 ambulatory [facility] Start: 07-16-2023 End: 07-16-2023 ambulatory Michael [place] Other [employer] Other Start: 07-16-2023 Telephone encounter Michael [facility] Start: 07-01-2023 ambulatory [facility] Start: 06-19-2023 End: 06-20-2023 ambulatory [facility] Start: 06-19-2023 End: 06-19-2023 ambulatory [facility] Start: 06-10-2023 Registered Recurring MD Lázaro Feliciano [facility] Work Phone: Start: 06-10-2023 End: 06-10-2023 ambulatory Michael Morley Other [employer] Other Start: 06-10-2023 Follow-up encounter Michael Peyman [facility] Start: 06-06-2023 End: 06-06-2023 ambulatory Reyna Sofia Other [employer] Other Start: 06-06-2023 Office outpatient vi sit 25 minutes Reyna Sofia [facility] Start: 06-04-2023 ambulatory ISAI [facility] Start: 05-16-2023 ambulatory YASMANI MOREJON [facility] Start: 05-13-2023 End: 05-13-2023 ambulatory DO Jorgito E Schwerer Work Phone: [facility] Work Phone: Start: 05-13-2023 End: 05-13-2023 Patient encounter procedure DO Jorgito Schwerer Work Phone: [facility] Work Phone: Start: 04-24-2023 (Procedure) Saba Villarreal [facility] Start: 04-24-2023 End: 04-24-2023 ambulatory Kenny Ernstmagdi Other [employer] Other Start: 04-16-2023 End: 04-16-2023 Patient encounter procedure DO Jorgito Schwerer Work Phone: [facility] Work Phone: Start: 04-12-2023 End: 04-12-2023 ambulatory DO Jorgito E Schwerer Work Phone: [facility] Work Phone: Start: 04-12-2023 End: 04-12-2023 Departed Referred DO Jorgito Schwerer Work Phone: [facility] Start: 04-10-2023 Registered Recurring DO Kawilian tom Schwerer Work Phone: [facility]-Weight Management Work Phone: Start: 04-08-2023 End: 04-08-2023 Emergency department patient visit DO Jorgito Schwerer Work Phone: [facility]-Emergency Room Work Phone: Start: 04-04-2023 End: 04-05-2023 ambulatory [facility] Start: 03-26-2023 End: 03-26-2023 ambulatory Jorgito Schwerer Other [employer] Other Start: 03-26-2023 Telephone encounter Jorgito Schwerer [facility] Start: 03-23-2023 End: 03-23-2023 Emergency department patient visit DO Jorgito Schwerer Work Phone: [facility]Emergency [facility] Work Phone: Start: 03-21-2023 End: 03-21-2023 ambulatory Kenny Villarreal Other [employer] Other Start: 03-21-2023 Office outpatient vi sit 25 minutes Kenny Villarreal [facility] [place] Start: 03-18-2023 End: 03-18-2023 ambulatory Jorgito Schwerer Other [employer] Other Start: 03-18-2023 Telephone encounter Jorgito Schwerer [facility] Start: 03-16-2023 End: 03-16-2023 Emergency department patient visit DO Jorgito Schwerer Work Phone: [facility]Emergency Room Work Phone: Start: 03-11-2023 (Procedure) Saba Villarreal [facility] Start: 03-11-2023 End: 03-11-2023 ambulatory DO Jorgito E Schwerer Work Phone: [facility] Work Phone: Start: 03-11-2023 End: 03-11-2023 Patient encounter procedure DO Jorgito Sanchez Work Phone: [facility] [place] Work Phone: Start: 02-27-2023 Registered Recurring DO Felecia Sanchez Work Phone: [facility] Work Phone: Start: 02-27-2023 End: 02-27-2023 ambulatory Michael Morley Other [employer] Other Start: 02-27-2023 Follow-up encounter [facility] Start: 02-27-2023 Telephone encounter Michael [facility] Start: 02-23-2023 End: 02-23-2023 Emergency department patient visit DO Jorgito Sanchez Work Phone: [facility]Emergency [facility] Work Phone: Start: 02-18-2023 End: 02-18-2023 ambulatory Kenny Villarreal Other [employer] Other Start: 02-18-2023 Telephone encounter Kenny Villarreal [facility] Start: 02-06-2023 End: 02-06-2023 ambulatory Jorgito Schwerer Other [employer] Other Start: 02-06-2023 Telephone encounter Jorgito Schwerer [facility] Start: 02-04-2023 End: 02-04-2023 ambulatory Jorgito Schwerer Other [employer] Other Start: 02-04-2023 Office outpatient vi sit 25 minutes Jorgito Schwerer [facility] [place] Start: 01-31-2023 End: 02-01-2023 Emergency department patient visit DO Jorgito Sanchez Work Phone: [facility]Emergency Room Work Phone: Start: 01-29-2023 End: 01-29-2023 ambulatory Jorgito Sanchez Other [employer] Other Start: 01-29-2023 Telephone encounter Jorgito Grecoerer [facility] [place] Start: 01-28-2023 End: 01-28-2023 Emergency department patient visit DO Jorgito Sanchez Work Phone: [facility]Emergency [facility] Work Phone: Start: 01-28-2023 End: 01-28-2023 ambulatory Kenny Villarreal Other [employer] Other Start: 01-28-2023 Office outpatient vi sit 25 minutes Kenny Villarreal [facility] [place] Start: 01-15-2023 ambulatory [facility] Start: 01-15-2023 End: 01-15-2023 Patient encounter procedure DO Jorgito Sanchez Work Phone: [facility]-MRI [address] Work Phone: Start: 01-02-2023 End: 01-02-2023 ambulatory Kenny Villarreal Other [employer] Other Start: 01-02-2023 Office outpatient vi sit 25 minutes Kenny Villarreal [facility] [place] Start: 12-26-2022 ambulatory [place] Face[facility] lity:[facility] Start: 12-18-2022 End: 12-19-[address] MICHAEL OLIVER Facility:[facility] Start: 12-13-2022 End: 12-13-2022 Patient encounter procedure Oneyda Maxinejackson OD Work Phone: Ophthalmology Comment on above: Arcus senilis, bilat eral (Primary Dx); Regular astigmatism, bilateral; Bilateral presbyopia Start: 12-12-2022 Orders Only Oneyda Valiente OD Work Phone: Ophthalmology Start: 12-06-2022 End: 12-06-2022 ambulatory Kenny Villarreal Other [employer] Other Start: 12-06-2022 Office outpatient vi sit 25 minutes Kenny Villarreal [facility] [place] Start: 12-05-2022 End: 12-06-[address] MICHAEL OLIVER Facility:[facility] Start: 12-04-2022 End: 12-04-2022 ambulatory [facility] Start: 11-13-2022 ambulatory [facility] Start: 11-09-2022 End: 11-10-2022 Emergency department patient visit LINDA [facility] Start: 11-08-2022 End: 11-08-[address] NO DESIR . Facility:[facility] Start: 11-06-2022 ambulatory [facility] Start: 11-05-2022 End: 11-05-2022 ambulatory Jorgito Schwerer Other [employer] Other Start: 11-05-2022 Telephone encounter Jorgito Schwerer [facility] [place] Start: 11-04-2022 End: 11-05-2022 Emergency department patient visit DO Jorgito Schwerer Work Phone: [facility]-Emergency Room Work Phone: Start: 11-04-2022 Emergency department patient visit [facility] Start: 11-04-2022 End: 11-04-2022 Emergency department patient visit [facility] Start: 11-03-2022 End: 11-03-2022 Evaluation and management of inpatient DO Jorgito Schwerer Work Phone: [facility] Work Phone: Start: 10-31-2022 ambulatory JACQUI MENDEZ [facility] Start: 10-29-2022 End: 10-29-2022 Patient encounter procedure DO Jorgito Grecoerer Work Phone: [facility] [place] Work Phone: Start: 10-25-2022 End: 10-25-2022 ambulatory [facility] Start: 10-25-2022 End: 10-25-2022 ambulatory [facility] Start: 10-23-2022 End: 10-23-2022 ambulatory DO Jorgito Grecoerer Work Phone: [facility] Work Phone: Start: 10-23-2022 End: 10-23-2022 Patient encounter procedure DO Jorgito Schwerer Work Phone: [facility]-XRay [facility] Work Phone: Start: 10-22-2022 End: 10-22-2022 ambulatory Jorgito Grecoerer Other [employer] Other Start: 10-22-2022 Telephone encounter Jorgito Grecoerer [facility] [place] Start: 10-19-2022 End: 10-20-2022 Emergency department patient visit DO Jorgito Grecoerer Work Phone: [facility]Emergency Room Work Phone: Start: 10-18-2022 End: 10-18-[address] NO DESIR . Facility: Start: 10-17-2022 End: 10-17-2022 ambulatory Kenny Villarreal Other [employer] Other Start: 10-17-2022 Office outpatient vi sit 25 minutes Kenny Villarreal [facility] [place] Start: 10-16-2022 End: 10-16-2022 ambulatory Michael Morley Other [employer] Other Start: 10-16-2022 Follow-up encounter Michael Peyman [facility] Start: 10-16-2022 Telephone encounter Michael Peyman Jillian jass [facility] Start: 10-16-2022 Registered Recurring DO Kajessicali vaishali Schwerer Work Phone: [facility] Work Phone: Start: 10-09-2022 Encounter for other preprocedural examination DR NO DESIR . [facility] Start: 10-09-2022 Encounter for prepro cedural laboratory examination DR NO DESIR . [facility] Start: 10-08-2022 End: 10-09-[address] NO DESIR . Facility:[facility] Start: 10-08-2022 End: 10-09-2022 Encounter for preprocedural laboratory examination DR NO DESIR . Facility: Start: 10-03-2022 End: 10-03-2022 ambulatory DO Jorgito E Schwerer Work Phone: [facility] Work Phone: Start: 10-03-2022 End: 10-03-2022 Patient encounter procedure Jorgito E SCHWERER [facility] Start: 09-25-2022 End: 09-25-2022 ambulatory DO Jorgito E Schwerer Work Phone: [facility] Work Phone: Start: 09-25-2022 End: 09-25-2022 Patient encounter procedure DO Jorgito Schwerer Work Phone: [facility] Start: 09-18-2022 End: 09-18-2022 ambulatory DO Jorgito E Schwerer Work Phone: [facility] Work Phone: Start: 09-18-2022 End: 09-18-2022 Patient encounter procedure DO Jorgito Schwerer Work Phone: [facility] [place] Work Phone: Start: 09-14-2022 End: 09-14-2022 ambulatory Michael Mor[place] Other [employer] Other Start: 09-14-2022 Telephone encounter [facility] Start: 09-06-2022 End: 09-06-[address] NO DESIR . Facility:[facility] Start: 09-05-2022 Office outpatient ne w 45 minutes Kenny Villarreal [facility] Pain [facility] [place] Start: 09-05-2022 Encounter for prepro cedural cardiovascular examination DR NO DESIR . [facility] Start: 09-05-2022 End: 09-05-2022 ambulatory DO Jorgito Sanchez Work Phone: [facility] Work Phone: Start: 09-05-2022 End: 09-05-2022 Patient encounter procedure DO Jorgito Schwvietr Work Phone: [facility] [place] [facility] Start: 09-03-2022 End: 09-04-[address] NO DESIR . Facility:[facility] Start: 08-29-[address] NO HAMMOND . Facility:[facility] Start: 08-28-2022 End: 08-28-2022 Patient encounter procedure Sharon Lo PA-C Work Phone: Otolaryngology Comment on above: Otalgia, bilateral ( Primary Dx); Sensorineural hearing loss (SNHL) of both ears; Tinnitus of both ears; Arthralgia of right temporomandibular joint Start: 08-28-2022 End: 08-28-2022 ambulatory Jorgito Sanchez Other [employer] Other Start: 08-28-2022 Telephone encounter Jorgitoxiao Grecoerer [facility] [place] Start: 08-27-2022 Telephone encounter Rose Connelly RN Otolaryngology Comment on above: Appointment Confirma tion Start: 08-24-2022 End: 08-24-2022 ambulatory Jorgito Haynesr Other [employer] Other Start: 08-24-2022 Encounter for antibo dy response examination Jorgito Grecoerer [facility] Start: 08-24-2022 Patient encounter procedure Jorgito Grecoerer [facility] Start: 08-24-2022 Telephone encounter Jorgito Grecoerer [facility] Start: 08-23-2022 End: 08-23-2022 ambulatory Jorgito Grecoerer Other [employer] Other Start: 08-23-2022 Telephone encounter Jorgito Grecoerer [facility] Start: 08-22-2022 End: 08-22-2022 Emergency department patient visit DO Jorgito Haynesr Work Phone: [facility]-Emergency Room Work Phone: Start: 08-22-2022 End: 08-22-2022 ambulatory Michael Morley Other [employer] Other Start: 08-22-2022 Follow-up encounter Michael [facility] Start: 08-22-2022 Registered Recurring DO Felecia Sanchez Work Phone: [facility] Work Phone: Start: 08-17-2022 End: 08-17-2022 ambulatory Jorgito Grecoerer Other [employer] Other Start: 08-17-2022 Telephone encounter Jorgito Grecoerer [facility] Start: 08-16-2022 End: 08-16-2022 ambulatory Jorgito Schwerer Other [employer] Other Start: 08-16-2022 Telephone encounter Jorgito Grecoerer [facility] Start: 08-15-2022 End: 08-15-2022 ambulatory Michael Penadiff Other [employer] Other Start: 08-15-2022 Telephone encounter Michael Walsh [facility] Start: 08-09-2022 End: 08-09-2022 ambulatory DO Jorgito E Schwerer Work Phone: [facility] Work Phone: Start: 08-09-2022 End: 08-09-2022 Patient encounter procedure DO Jorgito Schwerer Work Phone: [facility] [place] Work Phone: Start: 08-07-2022 End: 08-07-2022 ambulatory Jorgito Schwerer Other [employer] Other Start: 08-07-2022 Encounter for antibo dy response examination Jorgito Schwerer [facility] Start: 08-07-2022 Office outpatient vi sit 15 minutes Jorgito Schwerer [facility] Start: 07-31-2022 End: 07-31-2022 Patient encounter procedure DO Jorgito Schwerer Work Phone: [facility] [place] Work Phone: Start: 07-23-2022 End: 07-23-2022 ambulatory Jorgito Schwerer Other [employer] Other Start: 07-23-2022 Telephone encounter Jorgito Schwerer [facility] Start: 07-22-2022 End: 07-22-2022 Emergency department patient visit DO Jorgito Schwerer Work Phone: [facility]-Emergency Room Work Phone: Start: 2022 End: 2022 ambulatory DO Jorgito E Schwerer Work Phone: [facility] Work Phone: Start: 2022 End: 2022 Patient encounter procedure DO Jorgito Schwerer Work Phone: [facility]-CT Scan [place] Start: 07-09-2022 End: 07-09-2022 Patient encounter procedure DO Jorgito Schwerer Work Phone: [facility] [place] Start: 07-09-2022 End: 07-09-2022 ambulatory DO Jorgito E Schwerer Work Phone: [facility] Work Phone: Start: 07-09-2022 Telephone encounter Jorgito Schwerer [facility] Start: 07-05-2022 End: 07-05-2022 ambulatory Jorgito Schwerer [employer] Other Start: 07-05-2022 Office outpatient vi sit 15 minutes Jorgito Schwerer [facility] [place] Start: 07-02-2022 End: 07-02-2022 ambulatory Jorgito Schwerer Other [employer] Other Start: 07-02-2022 Telephone encounter Jorgito Schwerer [facility] [place] Start: 06-29-2022 End: 06-29-2022 Emergency department patient visit DO Jorgito Schwerer Work Phone: [facility]-Emergency [facility] Start: 06-25-2022 End: 06-25-2022 ambulatory Jorgito Schwerer Other [employer] Other Start: 06-25-2022 Telephone encounter Jorgito Haynesr [facility] [place] Start: 06-18-2022 End: 06-18-2022 ambulatory Jorgito Grecoerer Other [employer] Other Start: 06-18-2022 Encounter for antibo dy response examination Jorgito Haynesr [facility] [place] Start: 06-18-2022 Office outpatient vi sit 15 minutes Jorgito Grecoerer [facility] [place] Start: 06-14-2022 End: 06-14-2022 ambulatory Jorgito Grecoerer Other [employer] Other Start: 06-14-2022 Telephone encounter Jorgito Haynesr [facility] [place] Start: 06-13-2022 End: 06-14-2022 Emergency department patient visit DO Jorgito Grecoerer Work Phone: [facility]-Emergency Room Start: 06-12-2022 End: 06-12-2022 Patient encounter procedure DO Jorgito Greocerer Work Phone: [facility] [place] Start: 06-07-2022 End: 06-07-2022 ambulatory Jorgito Grecoerer Other [employer] Other Start: 06-07-2022 Telephone encounter Jorgito Haynesr [facility] [place] Start: 05-29-2022 End: 05-29-2022 ambulatory MD Naomi Feliciano [facility] Work Phone: Start: 05-29-2022 End: 05-29-2022 Patient encounter procedure MD Naomi Feliciano [facility] [place] Start: 05-15-2022 End: 05-15-2022 Patient encounter procedure Sharon oL PA-C Work Phone: Otolaryngology Comment on above: Otalgia, bilateral ( Primary Dx); Sensorineural hearing loss (SNHL) of both ears; Dizziness Start: 05-14-2022 End: 05-14-2022 ambulatory Jorgito Schwerer [employer] Other Start: 05-14-2022 Telephone encounter Jorgito Schwerer [facility] [place] Start: 05-07-2022 End: 05-07-2022 Patient encounter procedure Jairo [place] AUD Work Phone: Audiology Comment on above: Sensorineural hearin g loss, bilateral (Primary Dx); Dizziness; Right ear pain Start: 04-26-2022 End: 04-26-2022 ambulatory Simone Mckenzie Other [employer] Other Start: 04-26-2022 Office outpatient vi sit 15 minutes Simone Mckenzie [facility] Vascular Surgery Start: 04-26-2022 Telephone encounter Jazmin Walsh [facility] Start: 04-26-2022 End: 04-26-2022 Patient encounter procedure DO Jorgito Grecoerer Work Phone: [facility]-Ultrasound [facility] Start: 04-11-2022 End: 04-11-2022 Patient encounter procedure DO Jorgito Schwerer Work Phone: [facility] Start: 04-05-2022 End: 04-05-2022 ambulatory Jorgito Schwerer Other [employer] Other Start: 04-05-2022 Telephone encounter Jorgito Schwerer [facility] [place] Start: 04-04-2022 End: 04-04-2022 ambulatory Simone Mckenzie Other [employer] Other Start: 04-04-2022 Office outpatient ne w 30 minutes Simone Mckenzie [facility] Vascular Surgery Start: 04-04-2022 Telephone encounter Simone Figueroa [facility] [employer] Start: 04-02-2022 End: 04-02-2022 Departed Referred DO Jorgito Schwerer Work Phone: [facility]-Lab [facility] Start: 04-02-2022 End: 04-02-2022 ambulatory Jorgito Schwerer [employer] Other Start: 04-02-2022 Office outpatient vi sit 25 minutes Jorgito Schwerer [facility] Start: 03-19-2022 End: 03-20-2022 ambulatory [facility] Facility:[facility] Start: 03-08-2022 Registered Recurring DO Felecia tom Schwerer Work Phone: [facility]-Weight Management Start: 03-08-2022 End: 03-08-2022 ambulatory Michael Morley Other [employer] Other Start: 03-08-2022 Follow-up encounter Michael [facility] Start: 03-01-2022 End: 03-01-2022 ambulatory Jorgito Schwerer Other [employer] Other Start: 03-01-2022 Office outpatient vi sit 25 minutes Jorgito Schwerer [facility] Start: 03-01-2022 End: 03-01-2022 Departed Referred DO Jorgito Schwerer Work Phone: [facility]-Lab [facility] Start: 01-30-2022 (FCCC INJ) FCCC Injection Lety Fitt [facility] Start: 01-30-2022 End: 01-30-2022 ambulatory Lety Fitt Other [employer] Other Start: 01-22-2022 End: 01-22-2022 ambulatory Jorgito Schwerer Other [employer] Other Start: 01-22-2022 Office outpatient vi sit 15 minutes Jorgito Schwerer [facility] [place] Start: 01-15-2022 End: 01-15-2022 ambulatory Jorgito Schwerer Other [employer] Other Start: 01-15-2022 Telephone encounter Jorgito Schwerer [facility] [place] Start: 01-12-2022 End: 01-12-2022 Patient encounter procedure DO Jorgito Schwerer Work Phone: [facility]ound [place] Start: 01-05-2022 End: 01-05-2022 ambulatory Jorgito Schwerer Other [employer] Other Start: 01-05-2022 Office outpatient vi sit 15 minutes Jorgito Schwerer [facility] Start: 12-19-2021 ([facility] FU) [facility] F/ [employer] Lety Falk [facility] Start: 12-19-2021 End: 12-19-2021 ambulatory Reyna Sofia Other [employer] Other Start: 12-19-2021 Office outpatient vi sit 25 minutes Reyna Sofia [facility] Start: 12-15-2021 Telephone encounter Sharon oliva PA-C Work Phone: Otolaryngology Comment on above: Results Start: 11-21-2021 End: 11-21-2021 ambulatory Michael Morley Other [employer] Other Start: 11-21-2021 Follow-up encounter Michael regan [...] 10-10-2021 End: 10-10-2021 ambulatory Michael Morley Other [employer] Other Start: 10-10-2021 Follow-up encounter Michael Walsh [facility] Start: 09-26-2021 ([facility] FU) [facility] F/ [employer] Letyvaishali Falk [facility] Start: 09-26-2021 End: 09-26-2021 ambulatory Lety Falk Other [employer] Other Start: 09-15-2021 End: 09-15-2021 ambulatory Michael Morley Other [employer] Other Start: 09-15-2021 Nursing evaluation o f patient and report Michael Morley [facility] Start: 09-11-2021 End: 09-11-2021 ambulatory Jorgito Schwerer Other [employer] Other Start: 09-11-2021 Office outpatient vi sit 15 minutes Jorgito Schwerer [facility] Start: 09-11-2021 Telephone encounter Jorgito Schwerer [facility] Start: 09-04-2021 End: 09-04-2021 ambulatory Jorgito Schwerer Other [employer] Other Start: 09-04-2021 Telephone encounter Jorgito Schwerer [facility] Start: 08-15-2021 End: 08-15-2021 ambulatory Jorgito Schwerer Other [employer] Other Start: 08-15-2021 Office outpatient vi sit 25 minutes [facility] Start: 08-14-2021 End: 08-14-2021 ambulatory Michaelrober Mor[place] Other [employer] Other Start: 08-14-2021 Nursing evaluation o f patient and report Michael [facility] Start: 08-11-2021 End: 08-11-2021 ambulatory Jorgito Sanchez Other [employer] Other Start: 08-11-2021 Telephone encounter Jorgito Sanchez [facility] Start: 07-13-2021 End: 07-13-2021 ambulatory Michaelrober Penadread Meng Other [employer] Other Start: 07-13-2021 Nursing evaluation o f patient and report [facility] Start: 06-27-2021 End: 06-27-2021 ambulatory Michael Morley Jr. Other [employer] Other Start: 06-27-2021 Follow-up encounter Michael loving [facility] Start: 06-20-2021 End: 06-20-2021 ambulatory Reyna Sofia Other [employer] Other Start: 06-20-2021 Office outpatient vi sit 25 minutes Reyna Sofia [facility] Start: 06-15-2021 ([facility] FU) [facility] F/ [employer] Lety Falk [facility] Start: 06-15-2021 End: 06-15-2021 ambulatory Lety Falk Other [employer] Other Start: 06-13-2021 End: 06-13-2021 ambulatory Michael Morley Jr. Other [employer] Other Start: 06-13-2021 Nursing evaluation o f patient and report Michael Morley [facility] Start: 06-12-2021 End: 06-12-2021 ambulatory Jorgito Sanchez Other [facility] [employer] Other Start: 06-12-2021 Office outpatient vi sit 15 minutes Jorgito Sanchez [facility] [place] Procedures Date Procedure Procedure Detail Performing Clinician Start: 04-01-2025 MRI [address] head [facility] Work Phone: Start: 04-01-2025 CT angiography of head Services [facility] Work Phone: Start: 04-01-2025 CT angiography of neck vessels Services [facility] Work Phone: Start: 04-01-2025 CT of head without contrast Services [facility] Work Phone: Start: 04-01-2025 Plain chest X-ray Services 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 Work Phone: Start: 02-22-2025 Urnls dip stick/tablet rgnt auto w/o microscopy Tyrone Kelley DO Work Phone: Start: 02-19-2025 Urine culture Brigida Corea APRN Work Phone: Start: 02-18-2025 Radex fingr minimum 2 views Aline Castillo r PA-C Work Phone: Start: 02-14-2025 CT of head without contrast Brigida Corea APRN Work Phone: Start: 01-20-2025 Radex fingr minimum 2 views Aline Castillo r PA-C Work Phone: Start: 01-16-2025 MRI of right ankle Brigida Corea APRN Work Phone: Start: 01-14-2025 Radex hand minimum 3 views Kwame Fernando Work Phone: Start: 01-12-2025 Plain X-ray of left hand Brigida STEARNS RN Work Phone: Start: 01-12-2025 Plain X-ray of left wrist Brigida JAVIER Work Phone: Start: 10-28-2024 Radiologic exam knee complete 4/more views Luis Leonardoel DO Work Phone: Start: 10-23-2024 Plain chest X-ray Brigida Corea APRN Work Phone: Start: 10-23-2024 Respiratory pathogens DNA and RNA panel - Nasopharynx by DEBBIE with non-probe detection Brigida Corea APRN Work Phone: Start: 10-12-2024 Radex hand minimum 3 views Kwame Fernando Work Phone: Start: 10-09-2024 Plain chest X-ray Brigida Corea APRN Work Phone: Start: 10-09-2024 End: 10-09-2024 Viral nucleic acid assay Brigida STEARNS RN Work Phone: Start: 10-01-2024 Esophagogastroduodenoscopy Brigida Corea APRN Work Phone: Start: 09-27-2024 Plain chest X-ray Brigida Corea APRN Work Phone: Start: 09-27-2024 End: 09-27-2024 Viral nucleic acid assay Brigida STEARNS RN Work Phone: Start: 09-17-2024 X-ray of lumbar spine, four or more views Brigida Corea APRN Work Phone: Start: 09-17-2024 Supine abdominal X-ray Brigida Corea APRN Work Phone: Start: 09-15-2024 Radex ankle complete minimum 3 views Delroy Merino DPM Work Phone: Start: 09-15-2024 Radex ankle complete minimum 3 views Delroy Merino DPM Work Phone: Start: 09-09-2024 Radionuclide gastric emptying study Brigida Corea APRN Work Phone: Start: 08-31-2024 Injection 1 tendon sheath/ligament aponeurosis Kwame Mcneil MD Work Phone: Start: 08-31-2024 H/O: surgery H/O thumb surgery Kwame Mcneil MD Work Phone: Start: 08-31-2024 Radex hand minimum 3 views Kwame Fernando Work Phone: Start: 08-29-2024 Streptococcus pyogenes antigen assay Brigida Corea APRN Work Phone: Start: 08-29-2024 End: 08-29-2024 Viral nucleic acid assay Brigida STEARNS RN Work Phone: Start: 08-06-2024 Computed tomography of abdomen and pelvis with contrast Brigida Corea APRN Work Phone: Start: 08-03-2024 Radex foot complete minimum 3 views Delroy Merino DPM Work Phone: Start: 06-01-2024 End: 06-01-2024 Bilateral mammography REED CLEANERVaishali Nguyen Corea Work Phone: Start: 05-09-2024 Bacteria identified in Urine by Culture TODD Nguyne Corea Work Phone: Start: 05-09-2024 Urine culture Brigida Corea APRN Work Phone: Start: 05-09-2024 Computed tomography of abdomen and pelvis with contrast TODD Nguyen Corea Work Phone: Start: 05-08-2024 Bacteria identified in Urine by Culture TODD Corea Work Phone: Start: 05-08-2024 Urine culture Brigida Corea APRN Work Phone: Start: 05-05-2024 CT of abdomen and pelvis without contrast TODD Corea Work Phone: Start: 03-11-2024 MR lumbar spine wo con Services [facility] Work Phone: Start: 01-14-[address] [facility] Work Phone: Start: 01-03-2024 Plain chest X-ray Services [facility] Work Phone: Start: 11-28-2023 Urnls dip stick/tablet rgnt auto w/o microscopy Jacqui Castro MD Work Phone: Start: 10-27-2023 Plain chest X-ray Services [facility] Work Phone: Start: 10-27-2023 X-ray of lumbar spine, two or three views Services [facility] Work Phone: Start: 10-15-2023 Radex spine lumbosacral minimum 4 views Melony SHARMAC Work Phone: Start: 10-08-2023 HEARING TEST/AUDIOGRAM Simone RIVERA Work Phone: Start: 10-06-2023 Plain chest X-ray Services [facility] Work Phone: Start: 10-06-2023 SARS-CoV-2, Influenza & [facility] ([facility]) [facility] Start: 09-10-2023 Ct orbit sella/post fossa/ear w/o contrast matrl Sharon HEDRICK-C Work Phone: Start: 08-08-2023 CT of abdomen and pelvis without contrast MD Naomi Feliciano Start: 08-07-2023 Urine culture MD Naomi Feliciano Start: 07-23-2023 Follow-up visit Follow-up ISAI ORDOÑEZ Start: 05-13-2023 Diagnostic radiography of abdomen DO Elmer tlin Schwerer Work Phone: Start: 04-16-2023 End: 04-16-2023 Bilateral mammography DO Jorgito Schwerer Work Phone: Start: 04-12-2023 Urine culture DO Jorgito Schwerer Work Phone: Start: 04-08-2023 Urine culture DO Jorgito Schwerer Work Phone: Start: 03-23-2023 Plain chest X-ray DO Jogrito [facility] [employer] Work Phone: Start: 03-23-2023 SARS-CoV-2, Influenza & RSV (PCR) DO Emler hamilton [facility] Work Phone: Start: 01-31-2023 CT of head without contrast DO Jorgito [facility] Work Phone: Start: 01-15-2023 MR lumbar spine wo con DO Jorgito [facility] Work Phone: Start: 11-04-2022 Diagnostic radiography of abdomen DO Elmer hamilton [facility] Work Phone: Start: 11-02-2022 Plain X-ray of left hand DO Jorgito [facility] Work Phone: Start: 11-02-2022 Blood culture for bacteria, including anaerobic screen DO Jorgito [facility] Work Phone: Start: 10-23-2022 Diagnostic radiography of abdomen DO Elmer hamilton [facility] Work Phone: Start: 10-20-2022 CT of abdomen and pelvis without contrast DO Jorgito [facility] Work Phone: Start: 10-19-2022 Urine culture DO [employer] Work Phone: Start: 10-03-2022 Diagnostic radiography of abdomen DO Elmerevette hamilton [facility] [employer] Work Phone: Start: 10-03-2022 Ultrasonography of bilateral kidneys DO Jorgito [facility] [employer] Work Phone: Start: 09-25-2022 Plain chest X-ray DO [employer] Work Phone: Start: 09-18-2022 Diagnostic radiography of abdomen DO Elmer hamilton [facility] [facility] Work Phone: Start: 09-05-2022 X-ray of lumbar spine, four views DO Elmer Sanchez Work Phone: Start: 07-31-2022 Plain chest X-ray DO Jorgito Sanchez Work Phone: Start: 07-22-2022 SARS-CoV-2, Influenza & RSV (PCR) DO Elmer Haynesr Work Phone: Start: 2022 CT of paranasal sinus without contrast DO Jorgito Haynesr Work Phone: Start: 07-09-2022 Plain chest X-ray DO Jorgito Haynesr Work Phone: Start: 06-29-2022 CT of abdomen and pelvis without contrast DO Jorgito Sanchez Work Phone: Start: 06-29-2022 SARS-CoV-2, Influenza & RSV (PCR) DO Elmer Sanchez Work Phone: Start: 06-29-2022 Urine culture DO Jorgito Sanchez Work Phone: Start: 06-13-2022 Plain chest X-ray DO Jorgito Sanchez Work Phone: Start: 06-13-2022 SARS-CoV-2, Influenza & RSV (PCR) DO Elmer Sanchez Work Phone: Start: 06-12-2022 Urine culture DO Jorgito Sanchez Work Phone: Start: 06-12-2022 Cystourethroscopy with dilation of urethral stricture Francisco Marin Start: 05-29-2022 Computed tomography of abdomen and pelvis with contrast MD Naomi Feliciano Start: 04-26-2022 Duplex scan of lower limb veins DO Sundar Sanchez Work Phone: Start: 04-11-2022 Bilateral mammography DO Jorgito Haynesr Work Phone: Start: 01-12-2022 US scan of thyroid DO Jorgito Grecoerer Work Phone: section Jorgito ROBERSON WERER Decompression of median nerve Jorgito HAYNESR Comment on above: RIGHT HAND Dissection tonsillectomy Elmer SANCHEZ Excision of ganglion cyst Price SANCHEZ Comment on above: RIGHT WRIST H/O: hysterectomy Status post laparoscopic hysterectomy DO Jorgito Haynesr Work Phone: H/O: hysterectomy History of hysterectomy Brigida Corea APRN Work Phone: H/O: hysterectomy History of hysterectomy Ashley Mckeon DNP H/O: surgery History of recen t surgery DO Jorgito Grecoerer Work Phone: H/O: surgery History of recen t surgery DO Jorgito Sanchez Work Phone: H/O: surgery H/O thumb surgery Kwame muniz MD Work Phone: H/O: surgery H/O thumb surgery Kwame muniz MD Work Phone: History of cholecystectomy Hx of cholecys tectomy Brigida Corea APRN Work Phone: History of cholecystectomy Hx of cholecys tectomy Ashley Mckeon DNP History of operative procedure on knee Jorgito Sanchez Other Laparoscopic cholecystectomy Jorgito SANCHEZ Urine culture DO Jorgito Schwerer Work Phone: Urine culture DO Jorgito Grecoerer Work Phone: Urine culture DO Jorgito Grecoerer Work Phone: Urine culture DO Jorgito Grecoerer Work Phone: Plan of Treatment Date Care Activity Detail Author Start: 10-23-2033 Urine microalbumin profile DTaP,Tdap,Td Vaccine (2 - Td or Tdap) [facility] Start: 04-28-2026 Screening for malignant neoplasm of colon [facility] Start: 11-04-2025 Diabetes Screening Diabetes Screening [facility] Start: 06-01-2025 Screening for malignant neoplasm of breast [facility] Start: 05-31-2025 End: 05-31-2025 Patient encounter procedure 05/31/2025 3:45 PM EDT Office Visit [facility]opaed[facility] [address] [facility] [place] [address] Kwame Mcneil MD [address] [place] [address] right hand pain Orthopaedics Comment on above: right hand pain Start: 04-21-2025 End: 04-21-2025 Patient encounter procedure Gastroenterology Comment on above: New gp consult/empties Start: 04-12-2025 End: 04-12-2025 Patient encounter procedure 04/12/2025 1:00 PM EDT Office Visit [facility]opaed[facility] [address] [facility] [place] [address] Kwame Mcneil MD [address] [place] [address] Post Op left thumb Sx 01/07/25 Orthopaedics Comment on above: Post Op left thumb Sx 01/07/25 Start: 04-05-2025 Influenza vaccination [facility] Start: 04-02-2025 End: 04-02-2025 [facility] Start: 04-01-2025 Referral to Adding Machine Servicer [facility] Start: 04-01-2025 Sleep disorder assessment [facility] Start: 04-01-2025 MRI of head MR head/brain wo con [facility] Start: 04-01-2025 Hospital admission [facility] Start: 04-01-2025 Physical therapy procedure [facility] Start: 04-01-2025 Referral to occupational therapist [facility] Start: 04-01-2025 [facility] Start: 04-01-2025 Bacteria identified in Urine by Culture Urine Culture [facility] Start: 04-01-2025 End: 04-01-2025 Urine culture [facility] Start: 03-31-2025 End: 03-31-2025 Patient encounter procedure 03/31/2025 3:30 PM EDT Office Visit Orthopaedics [address] [place] [address] Darrius Clarke DPM [address] [place] [address] Pain in right foot [M79.671] Orthopaedics Comment on above: Pain in right foot [M79.671] Start: 03-02-2025 End: 03-02-2025 Patient encounter procedure 03/02/2025 10:30 AM EDT Office Visit Orthopaedics [address] [place] [address] Tashi Osman, DPM [address] [place] [address] DJD (degenerative joint disease), ankle and foot, left // DJD (degenerative joint disease), ankle and foot, right // Posterior tibial tendinitis of left leg // Posterior tibial tendonitis of right leg Orthopaedics Comment on above: DJD (degenerative joint disease), ankle and foot, left // DJD (degenerative joint disease), ankle and foot, right // Posterior tibial tendinitis of left leg // Posterior tibial tendonitis of right leg Start: 02-24-2025 End: 02-24-2025 ambulatory 02/24/2025 3:30 PM EDT OT/PT/Speech Visit [facility] [address] [place] [address] Suzy Lara, OT/L [facility] [address] [place] [address] Postoperative state [Z98.890] [facility] Comment on above: Postoperative state [Z98.890] Start: 02-21-2025 Hepatitis B Vaccine (3 of 3 - Hep B Twinrix 3-dose series) Hepatitis B Vaccine (3 of 3 - Hep B Twinrix 3-dose series) [facility] Start: 02-19-2025 Bacteria identified in Urine by Culture Urine Culture [facility] Start: 02-18-2025 End: 02-18-2025 Nutrition therapy 02/18/2025 11:45 AM EDT [facility] Nutrition Therapy [facility] [address] [place] [address] [place] [address] [address] [place], [place] [id number] LVM/sent MC Msg. Appt Cx'd 01/18/25 tg Nutrition Therapy Comment on above: LVM/sent MC Msg. Appt Cx'd 01/18/25 tg Start: 02-18-2025 End: 02-18-2025 Patient encounter procedure Nutrition Therapy Comment on above: New gp consult/empties Start: 02-18-2025 End: 02-18-2025 Patient encounter procedure Radiology Comment on above: Left hand XR Left hand cast Post Op left thumb S x 01/07/25 Start: 02-17-2025 End: 02-17-2025 Patient encounter procedure Gastroenterology Comment on above: New gp consult/empties Start: 02-15-2025 End: 02-15-2025 Patient encounter procedure 02/15/2025 3:30 PM EDT Office Visit [facility] [address] [place] [phone] Delroy Merino DPM [address] [facility] [address] [place] [address] [facility] Start: 01-20-2025 End: 01-20-2025 ambulatory 01/20/2025 2:45 PM EDT OT/PT/Speech Visit [facility] [address] [place] [address] [place], [place] [id number] Suzy Lara OT/L [facility] [address] [place], [place] [id number] Post Op Left thumb [facility] Comment on above: Post Op Left thumb Start: 01-20-2025 End: 01-20-2025 Patient encounter procedure Radiology Comment on above: left hand XR Post Op left thumb S x 01/07/25 left finger xr Start: 01-20-2025 End: 01-20-2025 Patient encounter procedure Orthopaedics Comment on above: Left hand cast Left hand XR Post Op Left thumb S x 12/07/24 Start: 01-14-2025 End: 01-14-2025 Patient encounter procedure Orthopaedics Comment on above: SPLINT REMOVAL/XRAY: XRAY LEFT HAND Post Op left thumb S x 01/07/25 Start: 01-14-2025 End: 02-12-2026 XR Finger - left AP and Lateral and oblique XR DIGIT GENERAL 3V FRONTAL/LAT/OBL LEFT Radiology Routine Post-operative state Expected: 01/14/2025, Expires: 02/12/2026 [facility] Work Phone: Comment on above: Expected: 01/14/2025, Expires: Start: 01-14-2025 End: 02-12-2026 XR Hand - left PA and Lateral and Oblique XR HAND GENERAL 3V PA/LAT/OBL LEFT Radiology Routine Post-operative state Expected: 01/14/2025, Expires: 02/12/2026 [facility] Work Phone: Comment on above: Expected: 01/14/2025, Expires: Start: 01-07-2025 End: 01-07-2025 Admission to same day surgery center 01/07/2025 8:35 AM EDT - 01/07/2025 12:25 PM EDT Surgery Ambulatory Surgery [address] [facility] [place] [address] Kwame Mcneil MD [address] [facility] [place] [address] ARTHROPLASTY CARPOMETACARPAL JOINTS Ambulatory Surgery Comment on above: ARTHROPLASTY CARPOMETACARPAL JOINTS Start: 01-07-2025 End: 01-07-2025 Arthrp interpos intercarpal/metacarpal joints ARTHROPLASTY CARPOMETACARPAL JOINTS H/O thumb surgery Primary osteoarthritis of first carpometacarpal joint of left hand De Quervain's tenosynovitis 01/07/2025 8:35 AM EDT [facility] Start: 01-07-2025 End: 01-07-2025 Incision extensor tendon sheath wrist INCISION EXTENSOR TENDON SHEATH WRIST H/O thumb surgery Primary osteoarthritis of first carpometacarpal joint of left hand De Quervain's tenosynovitis 01/07/2025 8:35 AM EDT [facility] Start: 01-07-2025 End: 01-07-2025 Insertion wire/pin w/appl skeletal traction spx METACARPAL PHALANGEAL PINNING H/O thumb surgery Primary osteoarthritis of first carpometacarpal joint of left hand De Quervain's tenosynovitis 01/07/2025 8:35 AM EDT [facility] Start: 01-07-2025 Subsequent hospital visit by physician 01/07/2025 8:35 AM EDT Hospital Encounter Ambulatory Surgery [address] [place] [address] Kwame Mcneil MD [address] [place] [address] H/O thumb surgery [Z98.890], Primary osteoarthritis of first carpometacarpal joint of left hand [M18.12], De Quervain's tenosynovitis [M65.4] Ambulatory Surgery Comment on above: H/O thumb surgery [Z98.890], Primary ost eoarthritis of first carpometacarpal joint of left hand [M18.12], De Quervain's tenosynovitis [M65.4] Start: 01-07-2025 End: 01-07-2025 Tr/trnspl tdn carp/mtcrpl hand w/o fr grf ea tdn TRANSFER TENDON, CARPOMETACARPAL OR DORSUM HAND; W/O FREE GRAFT, EACH H/O thumb surgery Primary osteoarthritis of first carpometacarpal joint of left hand De Quervain's tenosynovitis 01/07/2025 8:35 AM EDT [facility] Start: 12-23-2024 End: 12-23-2024 Patient encounter procedure Radiology Comment on above: Left hand XR Post Op Left thumb S x 12/07/24 Left hand cast Start: 12-22-2024 Glaucoma screening Dilated Retinal Exam [facility] Start: 12-22-2024 End: 12-22-2024 Patient encounter procedure 12/22/2024 10:00 AM EDT Office Visit Orthopaedics [address] [place] [address] [place] [address] [place] [address] left knee pain and swelling / knee replacement [address] buitrago Orthopaedics Comment on above: left knee pain and swelling / knee repla cement [address] buitrago Start: 12-21-2024 End: 03-23-2025 MR Ankle - right WO contrast MR ankle right wo IV contrast Imaging Routine Osteochondritis dissecans of right ankle Expected: 12/21/2024, Expires: 03/23/2025 [facility] Work Phone: Comment on above: Expected: 12/21/2024, Expires: Start: 12-21-2024 End: 12-21-2024 Patient encounter procedure [facility] Comment on above: Capsulitis of metatarsophalangeal (MTP) joint of right foot (Primary Dx); Posterior tibial tendinitis of left leg; Other specified disorders of synovium, left ankle and foot Start: 12-14-2024 End: 12-14-2024 Patient encounter procedure 12/14/2024 10:20 AM EDT Office Visit [facility] [address] [phone] Simone Rivera NP [address] [facility] [address] [place] [phone] [facility] Start: 12-07-2024 Screening for malignant neoplasm of cervix [facility] Start: 12-07-2024 End: 12-07-2024 Admission to same day surgery center Ambulatory Surgery Comment on above: ARTHROPLASTY CARPOMETACARPAL JOINTS Start: 12-07-2024 End: 12-07-2024 Arthrp interpos intercarpal/metacarpal joints [facility] Start: 12-07-2024 End: 12-07-2024 Incision extensor tendon sheath wrist [facility] Start: 12-07-2024 End: 12-07-2024 Insertion wire/pin w/appl skeletal traction spx [facility] Start: 12-07-2024 Subsequent hospital visit by physician Ambulatory Surgery Comment on above: H/O thumb surgery [Z98.890], Primary ost eoarthritis of first carpometacarpal joint of left hand [M18.12], De Quervain's tenosynovitis [M65.4] Start: 12-07-2024 End: 12-07-2024 Tr/trnspl tdn carp/mtcrpl hand w/o fr grf ea tdn [facility] Start: 12-01-2024 End: 12-01-2024 Patient encounter procedure 12/01/2024 4:20 PM EDT Office Visit [facility] [address] [place] [phone] Delroy Merino DPM [address] [address] Arrived [facility] Comment on above: Arrived Start: 11-18-2024 End: 11-18-2024 Anesthesia consultation 11/18/2024 7:40 AM EDT PAT Pre Anesthesia [address] [facility] [place] [address] 2, Pacc [facility] [address] [facility] [place] [address] Pacc Left thumb Sx 12/07/24 Pre Anesthesia Comment on above: Pacc Left thumb Sx 12/07/24 Start: 10-28-2024 End: 01-27-2025 C reactive protein [Mass/volume] in Serum or Plasma [facility] Comment on above: Expected: 10/28/2024, Expires: Start: 10-28-2024 End: 01-27-2025 Erythrocyte sedimentation rate [facility] Work Phone: Comment on above: Expected: 10/28/2024, Expires: Start: 10-28-2024 End: 10-28-2024 Patient encounter procedure 10/28/2024 1:45 PM EDT Office Visit Orthopaedics [address] [place] [address] Luis Mathew, [address] [place] [address] Left knee pain and swelling Orthopaedics Comment on above: Left knee pain and swelling Start: 10-07-2024 End: 10-07-2024 Patient encounter procedure 10/07/2024 11:45 AM EST Office Visit Orthopaedics [address] [place] [address] Kwame Mcneil MD [address] [place] [address] 6 week F/U Orthopaedics Comment on above: 6 week F/U Start: 10-06-2024 End: 10-06-2024 Patient encounter procedure 10/06/2024 11:00 AM EST Office Visit Urology [address] [place] [address] Nikki Spivey, 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 [address] [place] [address] 6 month follow up Urology Comment on above: 6 month follow up Start: 10-01-2024 [facility] Start: 09-29-2024 End: 09-29-2024 Patient encounter procedure 09/29/2024 9:20 AM EST Office Visit [facility] [address] [place] [phone] Delroy Merino DPM [address] [address] [facility] Start: 09-23-2024 End: 09-23-2024 Patient encounter procedure [facility] Start: 09-17-2024 Supine abdominal X-ray [facility] Start: 09-15-2024 End: 09-15-2024 Patient encounter procedure 09/15/2024 10:40 AM EST Office Visit [facility] [address] [place] [phone] Delroy Merino DPM [address] [facility] [address] [place] [address] Closed nondisplaced fracture of middle phalanx of lesser toe of right foot, initial encounter (Primary Dx); Posterior tibial tendinitis of left leg; Other specified disorders of synovium, left ankle and foot; Contracture of right ankle; Contracture of left ankle [facility] Comment on above: Closed nondisplaced fracture of middle p halanx of lesser toe of right foot, initial encounter (Primary Dx); Posterior tibial tendinitis of left leg; Other specified disorders of synovium, left ankle and foot; Contracture of right ankle; Contracture of left ankle Start: 09-10-2024 Patient referral [facility] Work Phone: Start: 08-31-2024 End: 09-24-2025 XR Hand - left PA and Lateral and Oblique XR HAND GENERAL 3V PA/LAT/OBL LEFT Radiology Routine Pain of left hand Expected: 08/31/2024, Expires: 09/24/2025 [facility] Work Phone: Comment on above: Expected: 08/31/2024, Expires: Start: 08-31-2024 End: 08-31-2024 Patient encounter procedure Orthopaedics Comment on above: second opinion,previous surgeries XRAY LEFT HAND Start: 08-28-2024 End: 08-28-2024 Clinical Support 08/28/2024 9:30 AM EST Clinical Support [facility] [address] [place] [address] Delroy Merino DPM [address] [facility] [address] [place] [address] [facility] Start: 08-27-2024 End: 08-27-2024 Patient encounter procedure 08/27/2024 11:00 AM EST Office Visit [facility] [address] [facility] [address] [place] [address] Simone Rivera, CYTOGENETICS LABORATORY MANAGER [address] [place] [phone] Arrived [facility] Comment on above: Arrived Start: 08-20-2024 End: 08-20-2024 Patient encounter procedure 08/20/2024 4:15 PM EST Office Visit [facility] [address] [place] [phone] Jax Funez, DPM [address] [place] [address] [facility] Start: 08-17-2024 End: 08-17-2024 Patient encounter procedure 08/17/2024 4:40 PM EST Office Visit [facility] [address] [facility] [place] [phone] Delroy Merino DPM [address] [address] Arrived [facility] Comment on above: Arrived Start: 08-14-2024 End: 08-14-2024 Patient encounter procedure 08/14/2024 9:10 AM EST Office Visit [facility] [address] [place] [phone] Delroy Merino DPM [address] [address] [facility] Start: 08-03-2024 End: 08-03-2024 Patient encounter procedure [facility] Comment on above: Closed nondisplaced fracture of middle p halanx of lesser toe of right foot, initial encounter (Primary Dx) Start: 07-13-2024 End: 07-13-2024 Professional / ancillary services management 07/13/2024 12:50 PM EST Ancillary Procedure [facility] [address] [place] [phone] Arrived [facility] Comment on above: Arrived Start: 05-25-2024 Patient referral [facility] Work Phone: Start: 05-19-2024 End: 05-19-2024 Patient encounter procedure 05/19/2024 9:45 AM EDT Office Visit [facility] [address] [place] [id number] Alex Aguirre DO [address] [place] [address] [facility] Start: 05-09-2024 Bacteria identified in Urine by Culture Urine Culture [facility] Start: 05-09-2024 Computed tomography of abdomen and pelvis with contrast CT abdomen pelvis w con [facility] Start: 05-09-2024 CT Abdomen and Pelvis W contrast IV [facility] Start: 05-09-2024 Urine culture [facility] Start: 05-08-2024 Bacteria identified in Urine by Culture Urine Culture [facility] Start: 05-05-2024 CT Abdomen and Pelvis WO contrast [facility] Start: 05-05-2024 CT of abdomen and pelvis without contrast CT abdomen pelvis wo con [facility] Start: 04-16-2024 Screening for malignant neoplasm of breast [facility] Start: 04-14-2024 End: 04-14-2024 Patient encounter procedure 04/14/2024 11:40 AM EDT Office Visit Spine Medicine [address] [facility] [address] [place] [id number] Melony Alamo, PA-C [address] [facility] [address] [place], [place] [id number] Return in about 2 months (around 12/15/2023). Spine Medicine Comment on above: Return in about 2 months (around 12/15/19). Start: 04-05-2024 Covid-19 Vaccine ( season) Covid-19 Vaccine ( season) [facility] Start: 04-05-2024 Covid-19 Vaccine () Covid-19 Vaccine () [facility] Start: 04-05-2024 Influenza vaccination [facility] Start: 03-31-2024 End: 03-31-2024 Patient encounter procedure 03/31/2024 5:00 PM EDT Office Visit Urology [address] [place] [address] Nikki Spivey, 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 [address] [place] [address] Return in about 2 months (around 03/29/2024) for rto for evalution JOHN . - ok to use slot per provider Urology Comment on above: Return in about 2 months (around 03/29/20) for rto for evalution JOHN . - ok to use slot per provider Start: 03-31-2024 End: 06-30-2024 Bacteria identified in Urine by Culture [facility] Comment on above: Expected: 03/31/2024, Expires: Start: 03-31-2024 End: 06-30-2024 Urinalysis complete panel - Urine [facility] Work Phone: Comment on above: Expected: 03/31/2024, Expires: Start: 02-12-2024 End: 02-12-2024 Patient encounter procedure 02/12/2024 3:40 PM EDT Office Visit Spine Medicine [address] [facility] [address] [place] [address] Melony Alamo PA-C [address] [facility] [address] [place] [address] Return in about 2 months (around 12/15/2023). Spine Medicine Comment on above: Return in about 2 months (around 12/15/19). 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, 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]; Kidney stone [N20.0] Physical Therapy Comment on above: Flank pain [R10.9]; 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 [N99.89, N39.3]; Kidney stone [N20.0] Start: 12-23-2023 End: 12-23-2023 Patient encounter procedure 12/23/2023 5:00 PM EDT Office Visit OPHT Ophthalmology [address] [place] [address] Mimi Hermosillo, OD [address] [place] [address] LVM rescheduled from 12/20/23 AY Ophthalmology Comment on above: LVM rescheduled from 12/20/23 AY Start: 11-21-2023 Hepatitis B Vaccine (2 of 3 - Hep B Twinrix 3-dose series) Hepatitis B Vaccine (2 of 3 - Hep B Twinrix 3-dose series) [facility] Start: 11-05-2023 Urine screening for protein Diabetes: Urine Protein Screening [facility] Start: 10-27-2023 Plain chest X-ray XR chest 2V* [facility] Start: 10-27-2023 XR Chest 2 Views [facility] Start: 10-27-2023 X-ray of lumbar spine, two or three views XR lumbar spine 2-3V* [facility] Start: 10-27-2023 XR Lumbar spine 2 or 3 Views [facility] Start: 10-18-2023 End: 01-17-2024 Bacteria identified in Urine by Culture URINE CULTURE Microbiology Routine Stress incontinence of urine Expected: 10/18/2023 (Approximate), Expires: 01/17/2024 [facility] Work Phone: Comment on above: Expected: 10/18/2023 (Approximate), Expi res: 01/17/2024 Start: 08-24-2023 Pneumococcal vaccination Pneumococcal Vaccine (2 of 2 - PCV) [facility] Start: 08-05-2023 Behavioral Health Screening Behavioral Health Screening [facility] Start: 08-05-2023 Depression Assessment Depression Assessment [facility] Start: 04-12-2023 Bacteria identified in Urine by Culture [facility] Start: 04-08-2023 [facility] Start: 04-08-2023 Bacteria identified in Urine by Culture [facility] Start: 04-05-2023 Covid-19 Vaccine (2022- season) Covid-19 Vaccine ( season) [facility] Start: 04-05-2023 Influenza vaccination [facility] Start: 03-23-2023 Plain chest X-ray XR chest 2V* [facility] Start: 03-23-2023 XR Chest 2 Views [facility] Start: 01-31-2023 CT of head without contrast CT head/brain wo con [facility] Start: 01-31-2023 CT Unspecified body region WO contrast [facility] Start: 11-04-2022 Diagnostic radiography of abdomen [facility] Start: 11-03-2022 Blood chemistry [facility] Start: 11-03-2022 End: 11-03-2022 [facility] Start: 11-03-2022 Referral to infectious diseases physician [facility] Start: 11-03-2022 Referral to Adding Machine Servicer [facility] Start: 11-03-2022 Hospital admission [facility] Start: 11-03-2022 [facility] Start: 11-02-2022 Consultation [facility] Start: 11-02-2022 Plain X-ray of left hand XR hand LT 2V [facility] Start: 11-02-2022 XR Hand - left 2 Views [facility] Start: 11-02-2022 Bacteria identified in Blood by Culture Blood Culture [facility] Start: 11-02-2022 Blood culture for bacteria, including anaerobic screen Blood Culture [facility] Start: 10-20-2022 CT Abdomen and Pelvis WO contrast [facility] Start: 10-20-2022 CT of abdomen and pelvis without contrast CT abdomen pelvis wo con [facility] Start: 10-19-2022 Bacteria identified in Urine by Culture Urine Culture [facility] Start: 08-05-2022 DEPRESSION ASSESSMENT DEPRESSION ASSESSMENT [facility] Start: 04-05-2022 Influenza vaccination [facility] Start: 04-02-2022 End: 04-02-2022 Departed Referred Departed Referred [facility] [place] Start: 03-08-2022 Registered Recurring Registered Recurring [facility] Start: 09-19-2021 COVID-19 VACCINE (3 - Booster for Pfizer series) COVID-19 VACCINE (3 - Booster for Pfizer series) [facility] Start: 08-05-2021 DEPRESSION ASSESSMENT DEPRESSION ASSESSMENT [facility] Start: 2021 COLOGUARD (FIT-DNA) COLOGUARD (FIT-DNA) [facility] Start: 2021 Colonoscopy COLONOSCOPY [facility] Start: 2021 COLORECTAL CANCER SCREENING COLORECTAL CANCER SCREENING [facility] Start: [address] COLONOGRAPHY [facility] Start: 2021 DIABETES SCREEN DIABETES SCREEN [facility] Start: 2021 FECAL OCCULT BLOOD FECAL OCCULT BLOOD [facility] Start: 2021 Lipid panel Lipid Screening [facility] Start: 2021 LIPID SCREEN LIPID SCREEN [facility] Start: 2021 Screening for malignant neoplasm of colon [facility] Start: 2021 SIGMOIDOSCOPY SIGMOIDOSCOPY [facility] Start: 06-14-2021 COVID-19 VACCINE (3 - Booster for Pfizer series) COVID-19 VACCINE (3 - Booster for Pfizer series) [facility] Start: 04-05-2021 Influenza vaccination INFLUENZA (#1) [facility] Start: 2016 Mammography MAMMOGRAM [facility] Start: 2016 Screening for malignant neoplasm of breast Mammogram Screening [facility] Start: 2006 HPV TESTING HPV TESTING [facility] Start: 2006 Screening for malignant neoplasm of cervix HPV Testing [facility] Start: 1997 PAP TESTING PAP TESTING [facility] Start: 1997 Screening for malignant neoplasm of cervix [facility] Start: 1995 Hepatitis B Vaccine (1 of 3 - 19+ 3-dose series) Hepatitis B Vaccine (1 of 3 - 19+ 3-dose series) [facility] Start: 1995 Urine microalbumin profile [facility] Start: 1995 Urine screening for protein Diabetes: Urine Protein Screening [facility] Start: 1994 Annual PCP Team Chronic Disease Visit Annual PCP Team Chronic Disease Visit [facility] Start: 1994 Anxiety Screening Anxiety Screening [facility] Start: 1994 Depression Screening Depression Screening [facility] Start: 1994 Hepatitis B surface antibody level LDL Cholesterol [facility] Start: 1994 HEPATITIS C SCREENING HEPATITIS C SCREENING [facility] Start: 1994 Hepatitis C screening Hepatitis C Screening [facility] Start: 1994 HIV SCREENING HIV SCREENING [facility] Start: 1994 HIV screening HIV Screening [facility] Start: 1994 Spirometry Spirometry [facility] Start: 1988 Adult depression screening assessment DEPRESSION SCREENING [facility] Start: 1986 Diabetic foot examination Diabetic Foot Exam [facility] Start: 1986 Glaucoma screening Diabetes: Retinopathy Screening [facility] Start: 1986 Hepatitis B screening Urine Albumin:Creatinine Ratio [facility] Start: 1981 Hemoglobin A1c measurement HbA1C [facility] Start: 1976 Hemoglobin A1c measurement Diabetes: Hemoglobin A1C [facility] Start: 1976 HEPATITIS B (1 of 3 - 3-dose series) HEPATITIS B (1 of 3 - 3-dose series) [facility] Start: 1976 Hepatitis B Vaccine (1 of 3 - 3-dose series) Hepatitis B Vaccine (1 of 3 - 3-dose series) [facility] Start: 1976 Screening for malignant neoplasm of colon [facility] Bacteria identified in Urine by Culture [facility] Bacteria identified in Urine by Culture URINE CULTURE Microbiology Routine Stress incontinence of urine 10/11/2023 3:42 PM EST [facility] Work Phone: Bacteria identified in Urine by Culture URINE CULTURE Microbiology Routine Urinary tract infection without hematuria, site unspecified Ordered: 01/28/2024 [facility] Comment on above: Ordered: 01/28/2024 BACTERIAL VAGINOSIS NAAT BACTERI AL VAGINOSIS NAAT Lab Routine Vaginal pain 11/28/2023 10:03 AM EDT [facility] JAMES/TRICHOMONAS NAAT JAMES /TRICHOMONAS NAAT Lab Routine Vaginal pain 11/28/2023 10:03 AM EDT [facility] Work Phone: Chlamydia trachomati s DNA [Presence] in Unspecified specimen by DEBBIE with probe detection [facility] Glucose measurement estimated from glycated hemoglobin [facility] Hepatitis C virus Ig G Ab [Presence] in Serum or Plasma by Immunoassay [facility] IgA [Mass/volume] in Serum or Plasma [facility] IgG [Mass/volume] in Serum or Plasma [facility] IgM [Mass/volume] in Serum or Plasma [facility] End: 11-30-2022 Mri brain brain stem w/o w/contrast material MRI BRAIN WO/W IVCON Radiology Routine Sensorineural hearing loss (SNHL) of both ears Tinnitus of both ears 1 Occurrences starting 10/31/2021 until 11/30/2022 [facility] Work Phone: Comment on above: 1 Occurrences starting 10/31/2021 until 11/30/2022 Neisseria gonorrhoea e DNA [Presence] in Unspecified specimen by DEBBIE with probe detection [facility] Patient Education [facility] Work Phone: Patient referral [facility] Work Phone: Radionuclide gastric emptying study [facility] Trichomonas vaginali s DNA [Presence] in Unspecified specimen by DEBBIE with probe detection [facility] Urinalysis complete panel - Urine URINALYSIS, WITH MICROSCOPIC Lab Routine Urinary tract infection without hematuria, site unspecified Ordered: 01/28/2024 [facility] Work Phone: Comment on above: Ordered: 01/28/2024 Urine culture [facility] US Heart Transthoracic [facility] End: 02-11-2026 XR Finger - left AP and Lateral and oblique XR DIGIT GENERAL 3V FRONTAL/LAT/OBL LEFT Radiology Routine Post-operative state 1 Occurrences starting 01/12/2025 until 02/11/2026 [facility] Work Phone: Comment on above: 1 Occurrences starting 01/12/2025 until 02/11/2026 XR Foot - right 3 Views XR foot 3+ views right Imaging Routine Closed nondisplaced fracture of middle phalanx of lesser toe of right foot, initial encounter 07/13/2024 12:[address] [facility] Work Phone: [facility] Immunizations Immunization Date Immunization Notes Care Provider Maryann laurent 10-24-2023 hepatitis A and hepatitis B vaccine Brigida Corea REED CLEANER Work Phone: [facility] 10-24-2023 measles, mumps and rubella virus vaccine Brigida Corea REED CLEANER Work Phone: [facility] 10-24-2023 tetanus toxoid, redu radha diphtheria toxoid, and acellular pertussis vaccine, adsorbed Brigida Corea REED CLEANER Work Phone: [facility] 08-24-2022 pneumococcal polysaccharide vaccine, 23 valent iMchael Morley Other [facility] 04-19-2021 COVID-19 Pfizer Jorgito Schw erer Other [facility] 03-29-2021 COVID-19 Pfizer Jorgito Schw erer Other [facility] Payers Date Payer Category Payer Self-pay [id number] 2022 Medicaid [id number] 2021 Medicaid [employer] [id number] 2021-Present [phone] [address] [place] [address] Medicaid [id number] 2021 Medicaid [id number] 1.13.159.2.7 .3.031493.315 1976 Unknown [id number] 2.16.840.1.466328.3.579.2.6 47 1976 Unknown [id number] 2.16.840.1.721130.3.579.2.5 93 1976 Unknown [id number] 2.16.840.1.094479.3.579.2.5 93 1976 Unknown [id number] 2.16.840.1.687695.3.579.2.5 93 1976 Unknown [id number] 2.16.840.1.336892.3.579.2.5 93 1976 Unknown [id number] 2.16.840.1.913439.3.579.2.5 93 1976 Unknown [id number] 2.16.840.1.259626.3.579.2.5 93 1976 Unknown [id number] 2.16.840.1.063010.3.579.2.5 93 1976 Unknown [id number] 2.16.840.1.716587.3.579.2.5 93 1976 Unknown [id number] 2.16.840.1.801150.3.579.2.5 93 1976 Unknown [id number] 2.16.840.1.508754.3.579.2.7 27 1976 Unknown [id number] 2.16.840.1.369992.3.579.2.7 27 1976 Unknown [id number] 2.16.840.1.581003.3.579.2.7 27 1976 Unknown [id number] 2.16.840.1.579896.3.579.2.7 27 1976 Unknown [id number] 2.16.840.1.017969.3.579.2.1 259 1976 Unknown [id number] 2.16.840.1.290121.3.579.2.1 259 1976 Unknown [id number] 2.16.840.1.152865.3.579.2.1 259 1976 Unknown [id number] 2.16.840.1.470371.3.579.2.1 259 1976 Unknown [id number] 2.16.840.1.057843.3.579.2.1 259 1976 Unknown [id number] 2.16.840.1.458067.3.579.2.1 259 1976 Unknown [id number] 2.16.840.1.467676.3.579.2.1 259 1976 Unknown [id number] 2.16.840.1.173730.3.579.2.1 259 1976 Unknown [id number] 2.16.840.1.585233.3.579.2.1 259 1976 Unknown [id number] 2.16.840.1.546378.3.579.2.1 259 1976 Unknown [id number] 2.16.840.1.232193.3.579.2.1 259 1976 Unknown [id number] 2.16.840.1.138274.3.579.2.1 259 1976 Unknown [id number] 2.16.840.1.535975.3.579.2.1 259 1976 Unknown [id number] 2.16840.1.554076.3.579.2.1 259 1976 Unknown [id number] 2.840.1.851590.3.579.2.1 259 1976 Unknown [id number] 2.840.1.123481.3.579.2.1 259 1976 Unknown [id number] 2.840.1.059067.3.579.2.1 259 1976 Unknown [id number] 2.840.1.396978.3.579.2.1 259 1976 Unknown [id number] 2.0.1.445854.3.579.2.1 259 1959 Unknown [id number] .1.588291.19 1959 Unknown [id number] 09.20.830.1.769223.19 Unknown [id number] 09.20.830.1.931272.19 Unknown [id number] Unknown [id number] Unknown Regular Insurance [id number] Unknown Regular Auto/Medical [id number] Unknown [id number] 2.840.1.332469.3.579.2.5 31 Unknown [id number] 2.840.1.252519.3.579.2.5 31 Unknown [id number] 2.840.1.206129.3.579.2.5 31 Unknown [id number] 2.840.1.542471.3.579.2.5 31 Unknown [id number] 2.16.840.1.944078.3.579.2.5 31 Unknown [id number] 2.16.840.1.336767.3.579.2.5 31 Unknown [id number] 2.16.840.1.021242.3.579.2.5 31 Unknown [id number] 2.16.840.1.767476.3.579.2.5 31 Unknown [id number] 2.16.840.1.624108.3.579.2.5 31 Unknown [id number] 2.16.840.1.197969.3.579.2.5 31 Unknown [id number] 2.16.840.1.925231.3.579.2.5 31 Unknown [id number] 2.16.840.1.971220.3.579.2.5 31 Unknown [id number] 2.16.840.1.041742.3.579.2.5 31 Unknown [id number] 2.16.840.1.124994.3.579.2.5 31 Unknown [id number] 2.16.840.1.469475.3.579.2.5 31 Unknown [id number] 2.16.840.1.243919.3.579.2.5 31 Unknown [id number] 2.16.840.1.208280.3.579.2.5 31 Unknown [id number] 2.16.840.1.092305.3.579.2.5 31 Unknown [id number] 2.16.840.1.086778.3.579.2.5 31 Unknown [id number] 2.16.840.1.247599.3.579.2.5 31 Unknown [id number] 2.16.840.1.637800.3.579.2.5 31 Unknown [id number] 2.16.840.1.492673.3.579.2.5 31 Unknown [id number] 2.16.840.1.783519.3.579.2.5 31 Unknown [id number] 2.16.840.1.237880.3.579.2.5 31 Worker's Compensation [id number] Social History Date Type Detail Facility Start: 07-20-2021 End: 12-23-2024 Tobacco smoking status OHIS Never smoked tobacco [facility] Start: 07-20-2021 End: 01-22-2023 Tobacco use and exposure Smokeless tobacco non-user [facility] Start: 10-31-2021 End: 04-19-2025 Alcohol intake Current drinker of alcohol (finding) [facility] Start: 1975 Sex Assigned At Not on file [facility] Start: 10-21-2021 End: 05-15-2022 Exposure to SARS-CoV-2 (event) Not sure [facility] Start: 08-27-2023 End: 04-19-2025 Sex Assigned At [facility] Start: 09-03-2021 End: 01-22-2023 Tobacco smoking status NHIS Ex-smoker (finding) [facility] Start: 1975 Sex Assigned At Female F [facility] Start: 07-06-2012 Tobacco smoking status Never [facility] Start: 10-20-2022 End: 01-12-2025 Tobacco smoking status NHIS Smoker (finding) [facility] Start: 11-02-2022 End: 11-03-2022 Tobacco smoking status OHIS Current some day smoker [facility] Start: 08-27-2023 End: 04-19-2025 History of Social function [facility] Start: 07-30-2022 Gender identity Identifies as female gender (finding) [facility] Start: 07-30-2022 Sexual orientation Bisexual (finding ) [facility] History of tobacco use Cigarette Smoker [facility] Start: 04-25-2023 Alcohol Comment caffeine 1-2 c ups per day; soda [facility] Start: 06-16-2024 End: 01-12-2025 Sex Female (finding) [facility] Sexual Orientation [facility] Start: 11-18-2024 Alcohol Comment rare/occ [facility] Start: 12-16-2024 End: 04-01-2025 Tobacco smoking status NHIS Smokes tobacco daily [facility] Start: 12-16-2024 Tobacco Comment vapes nicotine [facility] Start: 04-02-2025 SDOH Follow up SDOH Follow up [facility] Work Phone: NEGATED: Highlighted row [facility] NEGATED: Highlighted row N [facility] Medical Equipment Procedure Code Equipment Code Equipment Origin al Text Equipment Identifier Dates Start: 06-07-2020 Set Internalbrac e Implant Kit Ligament Augmentation Repair Hand Wrist - [id number] Start: 01-07-2025 Wire Mary . 045in 2 [employer]car Stainless Steel 4in Fixation 3 Side 2 End - [id number] Start: 01-07-2025 Goals Date Patient Goal Desired Activity /State Functional Status Date Assessment Result Facility 04-02-2025 Functional status Patient at [facility] Work Phone: 10-26-2024 Functional Status N/A [facility] 05-10-2024 Functional Status N/A [facility] 11-03-2022 Functional status Patient at [facility] Work Phone: Mental Status Date Assessment Result Facility 04-02-2025 Cognitive function Cognitive Sta tus Patient at Baseline [facility] Work Phone: 11-03-2022 Cognitive function Cognitive Sta tus Patient at Baseline [facility] Work Phone: Clinical Notes 06-12-2021 to 04-19-2025 Mayra Quiñonez NP - 04/19/2025 4:50 PM Kwame Ro MD - 04/12/2025 1:09 PM EDT Note Date & Type Note Facility 04-19-2025 History of Present illness Narrative Images from the original note were not included. [address], [address] [facility], [address] P: [phone] F: [phone] [facility] Historian of HPI: patient Lisa Mendez is a 49 y.o. female who presents today to the Urgent Care with the following complaints and denials which have been present for 1 week(s). Pt c/o rash on both arms. Pt was prescribed Azithromycin and finished the prescription before the rash started. Pt is also having back pain that has been going on for 2 weeks. Pt did not do anything to injure it. C/O Denies Symptom Comments [] [x] Lesion [x] [] Rash [] [x] Lump [] [x] Bump [] [x] Depression [] [x] abscess [] [x] cellulitis [x] [] itching [] [x] pain [] [x] burning [] [x] Sensation of insects crawling Additional Comments: pt has taken tylenol OTC medication without relief Pt denies the following living changes new laundry detergent, new shampoo, new conditioner, new hand soap, and new body soap ROS A complete system ROS was performed and negative aside from the pertinent positives noted in the HPI and PE. Visit Vitals BP 124/68 Pulse 97 Temp 97.7 F SpO2 99% Smoking Status Former PHYSICAL EXAM Physical Exam Vitals reviewed. Constitutional: General: She is not in acute distress. Appearance: Normal appearance. HENT: Head: Normocephalic and atraumatic. Right Ear: Hearing, ear canal and external ear normal. A middle ear effusion is present. Left Ear: Hearing, tympanic membrane, ear canal and external ear normal. Nose: Nose normal. Mouth/Throat: Lips: Warba. Mouth: Mucous membranes are moist. Pharynx: Oropharynx is clear. Uvula midline. Eyes: Extraocular Movements: Extraocular movements intact. Conjunctiva/sclera: Conjunctivae normal. Pupils: Pupils are equal, round, and reactive to light. Cardiovascular: Rate and Rhythm: Normal rate and regular rhythm. Pulses: Normal pulses. Heart sounds: Normal heart sounds. Pulmonary: Effort: Pulmonary effort is normal. No respiratory distress. Breath sounds: Normal breath sounds. No wheezing, rhonchi or rales. Musculoskeletal: Cervical back: Normal range of motion and neck supple. Lumbar back: Spasms and tenderness present. Decreased range of motion. Positive left straight leg raise test. Negative right straight leg raise test. Back: Skin: General: Skin is warm and dry. Capillary Refill: Capillary refill takes less than 2 seconds. Findings: Erythema and rash present. Neurological: General: No focal deficit present. Mental Status: She is alert and oriented to person, place, and time. Psychiatric: Mood and Affect: Mood normal. Behavior: Behavior normal. Thought Content: Thought content normal. Judgment: Judgment normal. TREATMENT PLAN 1. Rash and nonspecific skin eruption (Primary) Pt presents today for evaluation of rash on bilateral lower arms. She recently had her tattoos colored in and is unsure if this is related. The rash is erythematous and pruritic in nature. Dx and tx discussed. Will send in medrol dose pack. Must follow up with PCP if not improving. She expressed an understanding. - methylPREDNISolone (Medrol Dospak) 4 MG tablets; Follow schedule on package instructions Dispense: 21 tablet; Refill: 0 2. Acute left-sided low back pain with left-sided sciatica Pt with reported history of low back pain. She has seen a neurologist for this issue and reports it is not surgical . New meds as directed. Also, recommend heat therapy, gentle massage, and gentle range of motion/stretching exercises, as alternate modalities for pain reduction . Pt may need further evaluation, if their pain worsens or does not resolve. Patient should go to the Emergency Department if they experience loss of sensation in an extremity or hips, or if they lose control of their bowels or bladder function. - methylPREDNISolone (Medrol Dospak) 4 MG tablets; Follow schedule on package instructions Dispense: 21 tablet; Refill: 0 documented in this encounter [facility] 04-12-2025 Note HNO ID: [id number] Author: KWAME MCNEIL MD Service: ? Author Type: Physician Type: Progress Notes Filed: 04/12/2025 13:39 Note Text: OPERATIVE REPORT: PROCEDURE: Left thumb revision carpometacarpal arthroplasty with slip of abductor pollicis longus tendon and internal brace with suture anchors; left first dorsal compartment release; extensor pollicis brevis transfer and thumb metacarpal phalangeal pinning DATE: 01/07/2025 SURGICAL PATHOLOGY: FINAL DIAGNOSIS A. Left thumb, hardware, removal: - Grossly unremarkable metal plates (gross examination only) 3 months out. She is feeling really good. The pain that she had before surgery is essentially gone. No numbness or tingling. She is very happy. PHYSICAL EXAM: All incisions are well-healed. Sensation intact in superficial radial distribution. No pain at the first dorsal compartment. Smooth and painless and stable circumduction of the CMC. Intact EPL and FPL. Able make a full fist. PLAN: At this point she can begin weaning out of her brace and into normal use. She can be activity as tolerated and will see me in the future as needed. [facility] 04-12-2025 History of Present illness Narrative OPERATIVE REPORT: PROCEDURE: Left thumb revision carpometacarpal arthroplasty with slip of abductor pollicis longus tendon and internal brace with suture anchors; left first dorsal compartment release; extensor pollicis brevis transfer and thumb metacarpal phalangeal pinning DATE: 01/07/2025 SURGICAL PATHOLOGY: FINAL DIAGNOSIS A. Left thumb, hardware, removal: - Grossly unremarkable metal plates (gross examination only) 3 months out. She is feeling really good. The pain that she had before surgery is essentially gone. No numbness or tingling. She is very happy. PHYSICAL EXAM: All incisions are well-healed. Sensation intact in superficial radial distribution. No pain at the first dorsal compartment. Smooth and painless and stable circumduction of the CMC. Intact EPL and FPL. Able make a full fist. PLAN: At this point she can begin weaning out of her brace and into normal use. She can be activity as tolerated and will see me in the future as needed. documented in this encounter [facility] 04-02-2025 Progress note [facility] 04-01-2025 History and physical note Note Date/Time April 01, 2025 6:45pm [facility] [address] [place] [address] Hospitalist H&P Signed Patient: Lisa Mendez MR#: [id number] : 1975 Acct:[id number] Age/Sex: 49 / F Adm Date: 08/28/2 5 Loc: 3T Room: [address] [place] [address] Type: ADM INOo Attending Dr: Jerry Sarmiento DO Copies to: Edilia Valdes MD, RES VIPUL Merlos, ~ HPI DATE OF EXAMINATION: 04/01/25 CHIEF COMPLAINT: Dizzy and fell 3 times last week HISTORY OF PRESENT ILLNESS: Lisa Mendez is a 49-year-old female with a past medical history significant for degenerative disc disease, chronic back pain, migraine, diabetes, and bipolar 1 disorder presenting for evaluation of dizziness with associated falls. She states that in the last week and a half her dizziness has gotten worse, andshe fell 3 times last week. She also states that she has been having a headachethat is migrating, in addition to nausea with no vomiting. She has an extensiveworkup from outside physicians for dizziness. Her most recent visit to the bar roller states that the cause of her dizziness is not cardiac in nature with a normal echo and stress test. She had a urinalysis in the emergency room that was positive for leukocyte esterase and squamous cell epithelium but negative for nitrites. She states that she is prone to UTIs and often gets more than 3 in a year. She had a positive urine culture for E. coli on 02/19/2025, however she could not remember if she finished her treatment course. She states that she has also lower back pain. Patient was restless during exam, stated that it was due to her restless leg syndrome for which she takes Sinemet. Last time she took Sinemet was approximately 2 nights ago. Review of Systems Review of Systems All other systems reviewed & are negative unless noted below or in HPI [facility] Medical History (Updated 04/01/25 @ 18:16 by Edilia Valdes MD, RES) Obesity, Class III, BMI 40-49.9 (morbid obesity) Presence of surgical screw in left hand Abnormal weight gain Degenerative disc disease Chronic back pain Overactive bladder Migraine Kidney stones Episiotomy pain repair DJD (degenerative joint disease) RLS (restless legs syndrome) Diabetes Asthma Depression Bipolar 1 disorder Bronchitis Surgical History H/O lumpectomy left breast History of hand surgery removed a cyst, removed a bone x4 History of hysterectomy History of carpal tunnel release of both wrists History of knee surgery left H/O oral surgery H/O arthroscopic knee surgery right H/O lithotripsy Previous section Hx of tonsillectomy Hx of cholecystectomy Knee joint replacement status bilateral Family History (Updated 04/01/25 @ 17:28 by Nydia Mohamud RN) Father Diabetes Mother Cancer of kidney Hypertension Son Attention deficit hyperactivity disorder (ADHD) Grandparent Obesity Legacy FamHx Relation: Maternal Grand Mother Maternal Grandfather Myocardial infarction Maternal Grandmother Cancer Social History Smoking Status: Current every day smoker Tobacco Type: e-cigarettes Substance Use Type: None Substance Abuse Comment: occ Social History Comments: son age 15 Meds Medications and Allergies Allergies baclofen Allergy (Unknown, Verified 04/01/25 11:09) Unknown Reaction cyclobenzaprine (From Flexeril) Allergy (Unknown, Verified 04/01/25 11:09) Hives gabapentin (From Neurontin) Allergy (Unknown, Verified 04/01/25 11:09) Unknown Reaction naproxen Allergy (Unknown, Verified 04/01/25 11:09) Rash Penicillins Allergy (Unknown, Verified 04/01/25 11:09) Hives tramadol (From Ultram) Allergy (Unknown, Verified 04/01/25 11:09) Unknown Reaction azithromycin Allergy (Verified 04/01/25 11:09) Rash, itching ciprofloxacin Allergy (Verified 04/01/25 11:09) Unknown Reaction oxycodone Allergy (Verified 04/01/25 11:09) Nausea topiramate (From Topamax) Allergy (Verified 04/01/25 11:09) Hives cephalexin Adverse Reaction (Verified 04/01/25 11:09) Nausea morphine Adverse Reaction (Verified 04/01/25 11:09) Unknown Reaction sumatriptan (From Imitrex) Adverse Reaction (Verified 04/01/25 11:09) Gastrointestinal Upset Home Medications carbidopa 25 mg-levodopa 100 mg tablet 1 tab PO QHS 08/07/23 [History Confirmed 04/01/25] rimegepant 75 mg disintegrating tablet (Nurtec ODT) 75 mg PO DIRECTED 08/07/23 [History Confirmed 04/01/25] carbamazepine 300 mg capsule,extended release [id number] 300 mg PO DAILY 06/16/24 [History Confirmed 04/01/25] glipizide 5 mg tablet 5 mg PO DAILY.AC.BKFAST 09/01/24 [History Confirmed 04/01/25] lumateperone 21 mg capsule (Caplyta) 21 mg PO DAILY 09/01/24 [History Confirmed 04/01/25] quetiapine 50 mg tablet 50 mg PO QHS 09/01/24 [History Confirmed 04/01/25] blood-glucose sensor (Dexcom G7 Sensor device) #1 ea 02/16/25 [History Confirmed 04/01/25] cholecalciferol (vitamin D3) 1,250 mcg (50,000 unit) capsule 50,000 unit PO QWEEK 02/16/25 [History Confirmed 04/01/25] pramipexole 0.5 mg tablet 0.5 mg PO QHS 02/16/25 [History Confirmed 04/01/25] nystatin 100,000 unit/gram topical powder 1 applic topical TID 04/01/25 [History Confirmed 04/01/25] pregabalin 100 mg capsule 100 mg PO BID 04/01/25 [History Confirmed 04/01/25] spironolactone 50 mg tablet 50 mg PO DAILY 04/01/25 [History Confirmed 04/01/25] Exam Physical Exam Vital Signs: Temp Pulse Resp BP Pulse Ox O2 Del Method 98.2 F 94 23 140/71 97 Room Air 04/01/25 12:32 04/01/25 16:08 04/01/25 16:08 04/01/25 16:08 04/01/25 16:08 04/01/25 16:08 Narrative: VITALS: Reviewed. GEN: Obese, restless/anxious on exam PSYCH: AOx3. Normal memory, mood, and affect. HEENT -Head: Normal on visual inspection -Eyes: Extraocular muscles intact -Ears: External ears are normal. Normal TMs, no fluid or effusion. -Nose: Normal nares. -Mouth and throat: Moist mucous membranes NECK: Supple, with no masses. CV: Regular rate rhythm, no murmurs, S1 and S2 normal LUNGS: Clear to auscultation bilaterally SKIN: Warm, well perfused. No skin rashes or abnormal lesions. MSK: No deformities or signs of scoliosis. Normal gait. EXT: No clubbing, cyanosis, lower extremities show nonpitting edema NEURO: Ambulating with no limitations. Normal muscle strength and tone. No focaldeficits. Results - Hospitalist H&P Lab Results Labs: Laboratory Last Values Corrected WBC 10.6 X10E3/uL (3.8-11.6) 04/01/25 12: Uncorrected WBC Count 10.6 x10E3/uL (3.8-11.6) 04/01/25 12: RBC 4.40 x10E6/uL (3.60-5.00) 04/01/25 12:25 Hgb 12.5 g/dL (11.8-15.4) 04/01/25 12:25 Hct 35.6 % (34.0-46.4) 04/01/25 12: MCV 80.9 fl (80-100) 04/01/25 12: MCH 28.4 pg (24.7-34.3) 04/01/25 12: MCHC 35.1 g/dL (32.0-35.0) H 04/01/25 12: RDW 12.8 % (11.9-15.3) 04/01/25 12: Plt Count 255 x10E3/uL (150-450) 04/01/25 12: MPV 7.1 fl (6.3-10.7) 04/01/25 12: Neut % (Auto) 69.3 % (.) 04/01/25 12: Lymph % (Auto) 21.4 % (.) 04/01/25 12: [place] % (Auto) 6.3 % (.) 04/01/25 12: Eos % (Auto) 2.4 % (.) 04/01/25 12:25 Baso % (Auto) 0.6 % (.) 04/01/25 12:25 Nucleat RBC Rel Count 0.0 /100 WBC (0-0.5) 04/01/25 12: Neut # (Auto) 7.3 x10E3/uL (1.8-7.7) 04/01/25 12: Lymph # (Auto) 2.3 x10E3/uL (1.00-4.8) 04/01/25 12: [place] # (Auto) 0.7 x10E3/uL (0.0-0.8) 04/01/25 12:25 Eos # (Auto) 0.3 x10E3/uL (0.0-0.45) 04/01/25 12:25 Baso # (Auto) 0.1 x10E3/uL (0.0-0.2) 04/01/25 12:25 Monocyte Dist Width 19.42 % (0.00-20.00) 04/01/25 12:25 PHA Creatinine Clear 115.78 04/01/25 12:25 Sodium 136 mmol/L (136-145) 04/01/25 12:25 Potassium 4.0 mmol/L (3.5-5.1) 04/01/25 12:25 Chloride 101 mmol/L (98-107) 04/01/25 12:25 Carbon Dioxide 26.3 mmol/L (21.0-31.0) 04/01/25 12: Anion Gap 12.7 mEq/L (6.0-15.0) 04/01/25 12:25 BUN 14 mg/dL (7-25) 04/01/25 12:25 Creatinine 0.70 mg/dL (0.60-1.20) 04/01/25 12:25 Est GFR (CKD-EPI) > 60.0 mL/Min 04/01/25 12:25 Glucose 154 mg/dL (70-100) H 04/01/25 12:25 Calcium 9.2 mg/dL (8.6-10.3) 04/01/25 12:25 Magnesium 1.7 mg/dL (1.9-2.7) L 04/01/25 12:25 Magnesium Cancelled 04/01/25 12:25 Troponin I High Sens < 3 ng/L (0-15) 04/01/25 14:54 B-Natriuretic Peptide 10.0 pg/mL (5-100) 04/01/25 12:25 HCG, Qual Negative 04/01/25 12:25 Urine Color Light-yellow (Yellow) 04/01/25 13:00 Urine Appearance Cloudy (Clear) A 04/01/25 13:00 Urine pH 5.5 (5.0-9.0) 04/01/25 13:00 Ur Specific [place]iner 1.019 (1.001-1.030) 04/01/25 13:00 Urine Protein Negative mg/dL (Negative) 04/01/25 13:00 Urine Glucose (UA) Normal mg/dL (Normal) 04/01/25 13:00 Urine Ketones Negative (Negative) 04/01/25 13:00 Urine Occult Blood Negative (Negative) 04/01/25 13:00 Urine Nitrite Negative (Negative) 04/01/25 13:00 Urine Bilirubin Negative (Negative) 04/01/25 13:00 Urine Urobilinogen Normal mg/dL (Normal) 04/01/25 13:00 Ur Leukocyte Esterase 4+ (Negative) H 04/01/25 13:00 Urine RBC 10-19 /HPF (0-4) H 04/01/25 13:00 Urine WBC Innumerable /HPF (0-4) H 04/01/25 13:00 Urine WBC Clumps Many /LPF (None Seen) H 04/01/25 13:00 Ur Squamous Epith Cells 3-4 /HPF (0-2) H 04/01/25 13:00 Urine Bacteria Rare /HPF (None Seen) 04/01/25 13:00 Hyaline Casts None /LPF (0-8) 04/01/25 13:00 Urine Mucus Rare /LPF 04/01/25 13:00 Assessment & Plan Assessment/Plan (1) Dizziness: Plan: ? CTA head and neck and CT head without contrast unremarkable ? BPPV vs. posterior/vestibular stroke ? Chest x-ray unremarkable ? Plan for MRI of head and brain tomorrow (2) Pyuria: Plan: ? Urine positive for leukocyte esterase and white blood cells ? Urine culture obtained ? Patient received 1 dose of ceftriaxone IV (3) RLS (restless legs syndrome): Plan: ? Patient on Sinemet at home ? Received 1 dose of Sinemet Plan ? DVT prophylaxis Lovenox ? Regular diet ? Full code Summary Lisa Mendez is a 49-year-old female presenting for evaluation of dizziness. This has been an ongoing problem for her and she has had extensive workup from outside physicians. There are concerns for vestibular stroke vs BPPV. There are plans for an MRI tomorrow. During the course of her ED visit she was found to have pyuria, she has been given 1 dose of ceftriaxone IV, and a urine culturehas been obtained. Patient is currently asymptomatic. I personally saw this patient on the day of the encounter, reviewed the history,performed the shi elements of the exam, formulated the plan of care and confirmed the Resident's assessment and plan. Seen in conjunction with resident Dr. Valdes, she will be admitted for posterior stroke rule out, MRI head without contrast is ordered. PT OT is ordered as well, recommend patient to have close follow-up with outpatient therapy upon discharge for vestibular therapy, she was agreeable to this on admission. Believe that her UA is consistent with sterile pyuria, will hold off on further antibiotics at this point in time. Meclizine as needed for vertigo. - Jerry Sarmiento DO IP vs OBS Justification Based on differential dx, clinical care plan, and risk of adverse events, if untreated, in my clinical judgement this patient requires an acute care setting as: OBSERVATION because of an expectation of an under 2 midnight stay. Estimated length of stay (# of days): 1 Documented By: Jerry Sarmiento DO 04/01/25 1714 Signed By: <Electronically signed by Jerry Sarmiento DO> 04/01/25 1845 <Electronically signed by MD CLARI Valdes> 04/01/25 2915 [facility] Work Phone: [phone]) 374-972608-28-2025 [place] [address] Hospitalist H&P Signed Patient: Lisa Mendez MR#: [id number] : 1975 Acct:[id number] Age/Sex: 49 / F Adm Date: 5 Loc: Room: [address] [place] [address] Type: ADM INOo Attending Dr: Jerry Sarmiento DO Copies to: Edilia Valdes MD, RES VIPUL Merlos DO~ HPI DATE OF EXAMINATION: 04/01/25 CHIEF COMPLAINT: Dizzy and fell 3 times last week HISTORY OF PRESENT ILLNESS: Lisa Mendez is a 49-year-old female with a past medical history significant for degenerative discdisease, chronic back pain, migraine, diabetes, and bipolar 1 disorder presenting for evaluation ofdizziness with associated falls. She states that in the last week and a half her dizziness has gotten worse, andshe fell 3 times last week. She also states that she has been having a headachethat is migrating, in addition to nausea with no vomiting. She has an extensiveworkup from outside physicians for dizziness. Her most recent visit to the bar roller states that the cause of her dizziness isnot cardiac in nature with a normal echo and stress test. She had a urinalysis in the emergency room that was positive for leukocyte esterase and squamous cell epithelium but negative for nitrites. She states that she is prone to UTIs and often gets more than 3 in a year. She had a positive urine culture for E. coli on 02/19/2025, however she could not remember if she finished her treatment course. She states that she has also lower back pain. Patient was restless during exam, stated that it was due to her restless leg syndrome for which shetakes Sinemet. Last time she took Sinemet was approximately 2 nights ago. Review of Systems Review of Systems All other systems reviewed & are negative unless noted below or in HPI [facility] Medical History (Updated 04/01/25 @ 18:16 by Edilia Valdes MD, RES) Obesity, Class III, BMI 40-49.9 (morbid obesity) Presence of surgical screw in left hand Abnormal weight gain Degenerative disc disease Chronic back pain Overactive bladder Migraine Kidney stones Episiotomy pain repair DJD (degenerative joint disease) RLS (restless legs syndrome) Diabetes Asthma Depression Bipolar 1 disorder Bronchitis Surgical History H/O lumpectomy left breast History of hand surgery removed a cyst, removed a bone x4 History of hysterectomy History of carpal tunnel release of both wrists History of knee surgery left H/O oral surgery H/O arthroscopic knee surgery right H/O lithotripsy Previous section Hx of tonsillectomy Hx of cholecystectomy Knee joint replacement status bilateral Family History (Updated 04/01/25 @ 17:28 by Nydia Mohamud RN) Father Diabetes Mother Cancer of kidney Hypertension Son Attention deficit hyperactivity disorder (ADHD) Grandparent Obesity Legacy FamHx Relation: Maternal Grand Mother Maternal Grandfather Myocardial infarction Maternal Grandmother Cancer Social History Smoking Status: Current every day smoker Tobacco Type: e-cigarettes Substance Use Type: None Substance Abuse Comment: occ Social History Comments: son age 15 Meds Medications and Allergies Allergies baclofen Allergy (Unknown, Verified 04/01/25 11:09) Unknown Reaction cyclobenzaprine (From Flexeril) Allergy (Unknown, Verified 04/01/25 11:09) Hives gabapentin (From Neurontin) Allergy (Unknown, Verified 04/01/25 11:09) Unknown Reaction naproxen Allergy (Unknown, Verified 04/01/25 11:09) Rash Penicillins Allergy (Unknown, Verified 04/01/25 11:09) Hives tramadol (From Ultram) Allergy (Unknown, Verified 04/01/25 11:09) Unknown Reaction azithromycin Allergy (Verified 04/01/25 11:09) Rash, itching ciprofloxacin Allergy (Verified 04/01/25 11:09) Unknown Reaction oxycodone Allergy (Verified 04/01/25 11:09) Nausea topiramate (From Topamax) Allergy (Verified 04/01/25 11:09) Hives cephalexin Adverse Reaction (Verified 04/01/25 11:09) Nausea morphine Adverse Reaction (Verified 04/01/25 11:09) Unknown Reaction sumatriptan (From Imitrex) Adverse Reaction (Verified 04/01/25 11:09) Gastrointestinal Upset Home Medications carbidopa 25 mg-levodopa 100 mg tablet 1 tab PO QHS 08/07/23 [History Confirmed 04/01/25] rimegepant 75 mg disintegrating tablet (Nurtec ODT) 75 mg PO DIRECTED 08/07/23 [History Confirmed 04/01/25] carbamazepine 300 mg capsule,extended release [id number] 300 mg PO DAILY 06/16/24 [History Confirmed 04/01/25] glipizide 5 mg tablet 5 mg PO DAILY.AC.BKFAST 09/01/24 [History Confirmed 04/01/25] lumateperone 21 mg capsule (Caplyta) 21 mg PO DAILY 09/01/24 [History Confirmed 04/01/25] quetiapine 50 mg tablet 50 mg PO QHS 09/01/24 [History Confirmed 04/01/25] blood-glucose sensor ([employer] G7 Sensor device) #1 ea 02/16/25 [History Confirmed 04/01/25] cholecalciferol (vitamin D3) 1,250 mcg (50,000 unit) capsule 50,000 unit PO QWEEK 02/16/25 [HistoryConfirmed 04/01/25] pramipexole 0.5 mg tablet 0.5 mg PO QHS 02/16/25 [History Confirmed 04/01/25] nystatin 100,000 unit/gram topical powder 1 applic topical TID 04/01/25 [History Confirmed 04/01/25] pregabalin 100 mg capsule 100 mg PO BID 04/01/25 [History Confirmed 04/01/25] spironolactone 50 mg tablet 50 mg PO DAILY 04/01/25 [History Confirmed 04/01/25] Exam Physical Exam Vital Signs: Temp Pulse Resp BP Pulse Ox O2 Del Method 98.2 F 94 23 140/71 97 Room Air 04/01/25 12:32 04/01/25 16:08 04/01/25 16:08 04/01/25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 TENDON:Anterior tibial tendon intact. No surrounding abnormal tendon sheath fluid. PLANTAR FASCIA: 3 fascicles of the plantar fascia are intact. No calcaneal spurring. No reactive bone marrow edema. No adjacent soft tissue edema. 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 Radiographs 3 views right foot and ankle Discussed results of clinical and radiographic along with MRI examination with the patient in detail along with treatment options. Recommended surgical consultation Dr. Clarke regarding the midfoot osteoarthritis. Explained the arthritis is very extensive and will require a substantial amount of fusion and healing time. In the meantime recommend Mobic 15 mg a day. Electronic prescription sent to pharmacy. Tashi Osman DPM documented in this encounterThe [facility] NoteHNO ID: [id number] Author: ML ALMANZAR RT(R) Service: ? Author Type: Technologist Type: Progress Notes Filed: 03/02/2025 11:03 Note Text: Radiology Service Progress Note PATIENT NAME: Lisa Mendez DATE OF SERVICE: March 02, 2025 TIME: 11:02 AM PATIENT IDENTITY VERIFICATION COMPLETED USING TWO (2) IDENTIFIERS: Name and Date of confirmed by patient verbally. FALL SCREENING: Has the patient had 2 falls in the last year or 1 fall with injury or currently using an Ambulatory Assistive Device (Walker, Cane, Wheelchair, Crutches, etc.)? No PATIENT GENDER DATA: Assigned female at . status: : No status: NO. PATIENT RELEVANT IMPLANT DATA REVIEWED: Not Applicable PATIENT PRESENTS WITH AN IMPLANTABLE OR ATTACHED CADD OPERATOR: No RADIOLOGY DEPARTMENT: General X-ray: Exam(s) Completed: Lower Extremity X-Ray(s): Ankle, Right and Foot, Right PERIPHERAL IV DATA: Not applicable SIGNED BY: RT Javi(R) March 02, 2025 11:02 [facility]07-29-2025 History of Present illness Narrative* Ml Almanzar RT(Yolanda) - 03/02/2025 11:02 AM EDT Radiology Service Progress Note PATIENT NAME: Lisa Mendez DATE OF SERVICE: March 02, 2025 TIME: 11:02 AM PATIENT IDENTITY VERIFICATION COMPLETED USING TWO (2) IDENTIFIERS: Name and Date of confirmedby patient verbally. FALL SCREENING: Has the patient had 2 falls in the last year or 1 fall with injury or currently using an Ambulatory Assistive Device (Walker, Cane, Wheelchair, Crutches, etc.)? No PATIENT GENDER DATA: Assigned female at . status: : No status:NO. PATIENT RELEVANT IMPLANT DATA REVIEWED: Not Applicable PATIENT PRESENTS WITH AN IMPLANTABLE OR ATTACHED CADD OPERATOR: No RADIOLOGY DEPARTMENT: General X-ray: Exam(s) Completed: Lower Extremity X- Ray(s): Ankle, Right and Foot, Right PERIPHERAL IV DATA: Not applicable SIGNED BY: RT Javi(R) March 02, 2025 11:02 AM documented in this encounterThe [facility]07-[facility] History of Present illness Narrative* Anil Ma NP - 02/22/2025 7:05 PM EDT Images from the original note were not included. [address] , [address] [facility], [address] P: [phone] F: [phone] [facility] Historian of HPI: patient Lisa Mendez is a 49 y.o. female who presents today to the Urgent Care with the following complaints and denials which have been present for 1 month(s) C/O Denies Symptom Comments [x] [] Dysuria [x] [] hematuria [x] [] Urinary frequency [x] [] Urinary incontinence [x] [] Urinary urgency [] [x] Genital itching [] [x] Genital discharge [] [x] Back pain [] [x] Abd pain Additional Comments: pt has not taken any OTC medications Pt complains of UTI symptoms. PT states been on and off for about a month comes and goes. PT statesfrequently urinating no stomach or back pain, no itching or discharge. PT had a surgery January 07 onLeft hand thumb recently. IH Testing: An In-House UA has not been obtained ROS A complete system ROS was performed and negative aside from the pertinent positives noted in the HPI and PE. PHYSICAL EXAM Examination General Examination: General examination: alert, oriented, normal affect, well-appearing, in no acute distress, well developed, well nourished. Head: normocephalic, atraumatic Eyes: sclera non-icteric Skin: normal Heart: no murmurs, regular rate and rhythm, S1, S2 normal Lungs: clear to auscultation bilaterally, good air movement, no wheezes, rales, rhonchi Abdomen: Suprapubic tenderness, no hepatosplenomegaly, no masses palpable. Musculoskeletal: FROM Extremities: no edema, no cyanosis Neurologic: nonfocal Psych: alert, oriented, cognitive function intact, cooperative with exam. TREATMENT PLAN 1. Acute cystitis without hematuria (Primary) Discussed diagnosis, use of nitrofurantoin and its most common side effects. She is advised to increase her fluids, rest, continue the atb as ordered and follow up if continued or worsening symptoms. - nitrofurantoin, macrocrystal-monohydrate, (Macrobid) 100 MG capsule; Take 1 capsule (100 mg) by mouth in the morning and 1 capsule (100 mg) before bedtime. Do all this for 7 days. Dispense: 14 capsule; Refill: 0 2. Dysuria Positive urinalysis discussed - URINALYSIS ANALYZER TEST - URINARY TRACT INFECTION (HTRX) 3. Candidal skin infection Discussed use of nystatin powder with the pt today. - nystatin (Mycostatin) 960079 UNIT/GM powder; Apply to affected area 3 times daily Dispense: 30 g;Refill: 2 documented in this encounterSaint Alexius [id number] NoteHNO ID: [id number] Author: KENNY SUNG OCCA Service: ? Author Type: Manager Epic Type: Progress Notes Filed: 02/18/2025 09:36 Note Text: PT ASSESSMENT - CASTING ROOM [facility] presents for cast removal and pin removal. Pin removed and examined by Dr. Mcneil. [facility] History of Present illness Narrative* Kenny Sung OCCA - 02/18/2025 9:35 AM EDT PT ASSESSMENT - CASTING ROOM [facility] presents for cast removal and pin removal. Pin removed and examined by Dr. Mcneil. ELIAZAR Bennett documented in this encounterThe [facility]07-17-2025 NoteHNO ID: [id number] Author: JANINE SOTCK, CARLOR/Alina Service: ? Author Type: Occupational Therapist Type: Progress Notes Filed: 02/18/2025 10:56 Note Text: Episode Visit Count: 1 Therapist That Will Accept/Oversee The Plan Of Care: Janine Stock Start of Care Date: 02/18/25 Onset Date: 10/12/24 Plan of Care Certification Date: 02/18/25 Next Certification Due Date: 04/19/25 Patient Identified by Name and Date of : Yes [facility] OCCUPATIONAL THERAPY EVALUATION PLAN OF CARE: Assessment: Lisaher Linda Mendez presents with diagnosis of Left thumb revision carpometacarpal arthroplasty with slip of abductor pollicis longus tendon and internal brace with suture anchors; left first dorsal compartment release; extensor pollicis brevis transfer and thumb metacarpal phalangeal pinning that interferes with Functional Limitation Comments, pinching, gripping, twisting, pulling, pushing, carrying, lifting (use of lef thand.) . The patient presents with impairments in ADL's, overall function, range of motion, and soft tissue healing. Patient did not complete the PROMIS? (Patient Reported Outcome MeasuresInformation System). Prognosis for therapy is Good due to: good support system/ coping skills . The patient will benefit from skilled therapy services to meet the goals established for this plan of care as noted below. Goals for Episode of Care: established 02/18/25 Patient will report a good understanding of diagnosis and OT recommendations for progression of program. Patient will demonstrate independence with ongoing home recommendations/exercise program throughout therapy plan of care. Patient will report a decrease in pain in Left wrist , hand, and thumb to 1/10 with basic self-care tasks, home management tasks, light functional tasks, and prior functional tasks. Patient will increase AROM of Left wrist , hand, and thumb in order to be able to improve function for basic self-care tasks, home management tasks, and prior functional tasks. Patient will independently demonstrate correct application of CUSTOM orthosis and verbalize understanding of proper wear/care. Patient will report a good understanding of edema control, scar / wound management throughout therapy plan of care to promote non-adherent / non-tender soft tissue. Patient Goals: improve present function Time Frame for Goals and Treatment : 04/16/25 Planned Interventions, Frequency, and Duration: Current Frequency: 1x/week Duration: 2 weeks Total Number of Visits Planned: (then every other week for 6) Planned Treatment Interventions: Therapeutic exercise (33815), Self-shelter management (51480), Custom orthosis fabrication PLAN FOR NEXT VISIT:assess fit of brace, check rom , determine frequency of visits since pt lives in [facility] Patient demonstrates good understanding of plan of care and treatment. The above goals and plan of care were discussed and agreed upon by patient/family. Transfer of Care Due To: Closer to Home Patient transferring care to: [facility] ot SUBJECTIVE: Pt referred to OT for protective splint and rom ex following a Left thumb revision carpometacarpal arthroplasty with slip of abductor pollicis longus tendon and internal brace with suture anchors; left first dorsal compartment release; extensor pollicis brevis transfer and thumb metacarpal phalangeal pinning on 01/07/2025 Functional Limitations: Functional Limitation Comments, pinching, gripping, twisting, pulling, pushing, carrying, lifting (use of lef thand.) Prior Level of Function: Independent without limitations Patient Goals: improve present function Intake Information: Prescription present Previous Treatment: Surgery Falls Interview: No positive findings with falls interview Relevant History Past Relevant Medical Conditions: Comments Past Relevant Surgical Conditions: Comments (a left thumb CMC arthroplasty with FCR, a soft tissue interposition with ECRL at the base of the first and second metacarpals and then finally a tight rope suspension plasty in [place] (pt unsure of date)) Right or Left Handed: Right 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 5 points is clinically meaningfully difference Percentiles provide an indication of how the patient's score ranks in relation to the gener (more content not included)...[facility]07-17-2025 History of Present illness Narrative* Janine Stock, OTR/Alina - 02/18/2025 8:44 AM EDT Images from the original note were not included. Episode Visit Count: 1 Therapist That Will Accept/Oversee The Plan Of Care: Janine Stock Start of Care Date: 02/18/25 Onset Date: 10/12/24 Plan of Care Certification Date: 02/18/25 Next Certification Due Date: 04/19/25 Patient Identified by Name and Date of : Yes [facility] OCCUPATIONAL THERAPY EVALUATION PLAN OF CARE: Assessment: Lisa Mendez presents with diagnosis of Left thumb revision carpometacarpal arthroplasty with slip of abductor pollicis longus tendon and internal brace with suture anchors; left firstdorsal compartment release; extensor pollicis brevis transfer and thumb metacarpal phalangeal pinning that interferes with Functional Limitation Comments, pinching, gripping, twisting, pulling, pushing, carrying, lifting (use of lef thand.) . The patient presents with impairments in ADL's, overall function, range of motion, and soft tissue healing. Patient did not complete the PROMIS (Patient Reported Outcome Measures Information System). Prognosis for therapy is Good due to: good support system/ coping skills . The patient will benefit from skilled therapy services to meet the goals established for this plan of care as noted below. Goals for Episode of Care: established 02/18/25 Patient will report a good understanding of diagnosis and OT recommendations for progression of program. Patient will demonstrate independence with ongoing home recommendations/exercise program throughouttherapy plan of care. Patient will report a decrease in pain in Left wrist , hand, and thumb to 1/10 with basic self-caretasks, home management tasks, light functional tasks, and prior functional tasks. Patient will increase AROM of Left wrist , hand, and thumb in order to be able to improve function for basic self-care tasks, home management tasks, and prior functional tasks. Patient will independently demonstrate correct application of CUSTOM orthosis and verbalize understanding of proper wear/care. Patient will report a good understanding of edema control, scar / wound management throughout therapy plan of care to promote non-adherent / non-tender soft tissue. Patient Goals: improve present function Time Frame for Goals and Treatment : 04/16/25 Planned Interventions, Frequency, and Duration: Current Frequency: 1x/week Duration: 2 weeks Total Number of Visits Planned: (then every other week for 6) Planned Treatment Interventions: Therapeutic exercise (82890), Self-shelter management (21284), Custom orthosis fabrication PLAN FOR NEXT VISIT:assess fit of brace, check rom , determine frequency of visits since pt lives in [facility] Patient demonstrates good understanding of plan of care and treatment. The above goals and plan of care were discussed and agreed upon by patient/family. Transfer of Care Due To: Closer to Home [facility] SUBJECTIVE: Pt referred to OT for protective splint and rom ex following a Left thumb revision carpometacarpal arthroplasty with slip of abductor pollicis longus tendon and internal brace with suture anchors; left first dorsal compartment release; extensor pollicis brevis transfer and thumb metacarpal phalangeal pinning on 01/07/2025 Functional Limitations: Functional Limitation Comments, pinching, gripping, twisting, pulling, pushing, carrying, lifting (use of lef thand.) Prior Level of Function: Independent without limitations Patient Goals: improve present function Intake Information: Prescription present Previous Treatment: Surgery Falls Interview: No positive findings with falls interview Relevant History Past Relevant Medical Conditions: Comments Past Relevant Surgical Conditions: Comments (a left thumb CMC arthroplasty with FCR, a soft tissue interposition with ECRL at the base of the first and second metacarpals and then finally a tight rope suspension plasty in [place] (pt unsure of date)) Right or Left Handed: Right 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 5 points is clinically meaningfully difference Percentiles provide an indication of how the patient's score ranks in relation to the general population. Higher percentile rankings indicate better function/quality of life. 50th percentile is the average of the general population and indicates half of respondents had a worse score. OBJECTIVE MEASURES WITH LEVEL OF FUNCTION: Hand Skin / Wound: Wound Description Wound Description: (pin removed this date by ) Edema Description: Absent Wrist AROM: Left Limitation Left Hand AROM: WFL Thumb AROM: Left Limitation Sensation: Denies tingling or numbness UE AROM L Forearm Supination: 60 Degrees L Forearm Pronation: 90 Degrees L Wrist Extension: 20 Degrees L Wrist Flexion: 15 Degrees L Wrist Radial Deviation: 0 Degrees L Wrist Ulnar Deviation: 30 Degrees Left Hand AROM: WFL Thumb AROM: Left Limitation Hand AROM L Thumb MP Extension : 0 Degrees L Thumb MP Flexion : 15 Degrees L Thumb IP Extension : 0 Degrees L Thumb IP Flexion : 15 Degrees L Thumb Radial Abduction: 50 Degrees L Thumb Palmar Abduction: 50 Degrees L Thumb Opposition (Functional): to tip of the IF Education: Education Learning Preferences: Demonstration, Explanation, Performance, Printed Materials Barriers: None Learning/educational needs: Home exercise program, Plan of Care Education Provided: Yes, see treatment interventions for education provided Education Provided To: Patient Education Mode/Type: Demonstration, Explanation/Discussion, Literature/Printed Materials Response to Education/Teach Back: Return Demonstration, States/Identifies TREATMENT: OT Treatment Interventions : Therapeutic Exercise, Self-Long Term Management, Custom Orthosis/Splint Fabrication Evaluation Therapeutic Exercise: 1: Instructed in thumb rom / tendon glides 2: Instructed in wrist rom ex 3: Pt completed set of ex with therapist guidance and direction Skilled Intervention: Skilled judgment was used in selection of appropriate interventions. Provided written instruction for home exercise program to facilitate proper performance and compliance. Correct performance of therapeutic exercises was facilitated with verbal and visual cuing. Self-Long Term Management: (rolled time into There Exercises) 1: Instructed in splint wear and care 2: Issued tubigrip sleeve and instructed in use Skilled Intervention: educated on above Custom orthosis: L 3808 WHFO w/out joints (long opponens, thumb spica, intrinsic gutter, resting, anti-spasticity, EXOS, dorsal block) Custom orthosis to provide immobilization, protection and support of left thumb, wrist and forearm to promote healing and Pt practiced orthosis application, donning on/off while under OT's supervision.. Patient was instructed in care of orthosis and wearing schedule real time trader except when exercising/ bathing. . Skilled Intervention: Clinical knowledge and skills required for custom orthotic fabrication and wearing schedule Patient/caregiver was educated in correct method for donning/doffing orthosis as well as wear and care of orthosis. Billing * Evaluation Low Complexity: 1 Unit Therapeutic Exercise Treatment Minutes: 12 Self-Care/Home Management Treatment Minutes: 8 (rolled time into Ther ex) * L 3808 WHFO w/out joints (long opponens, thumb spica, intrinsic gutter, resting, anti-spasticity,EXOS, dorsal block) Quantity: 1 Fabrication time for custom splint (minutes): 12 Skilled Treatment Time Minutes (timed and untimed codes): 43 Total Session Time (minutes): 43 Session Start Time : 844 Session Stop Time : 927 KURT Rudolph/Alina documented in this encounterThe [facility]07-17-2025 NoteHNO ID: [id number] Author: KWAME MCNEIL MD Service: ? Author Type: Physician Type: Progress Notes Filed: 02/18/2025 09:02 Note Text: OPERATIVE REPORT: PROCEDURE: Left thumb revision carpometacarpal arthroplasty with slip of abductor pollicis longus tendon and internal brace with suture anchors; left first dorsal compartment release; extensor pollicis brevis transfer and thumb metacarpal phalangeal pinning DATE: 01/07/2025 SURGICAL PATHOLOGY: FINAL DIAGNOSIS A. Left thumb, hardware, removal: - Grossly unremarkable metal plates (gross examination only) 6 weeks out. She is doing well. The pain causes some pain. But otherwise she is doing great and feels tremendous difference versus preop. She is happy. PHYSICAL EXAM: The pin is removed without incident. No signs of infection. Sensation intact in the superficial radial distribution. Maintain thumb EPL and FPL. Smooth, stable, painless circumduction of the CMC. No pain at the first dorsal compartment. All incisions well-healed. Able make a full fist. Today's x-rays show maintained suspension of the left thumb metacarpal with no bony abutment. Stable x-rays versus previous. PLAN: Cast will be removed today and pin will be removed. She will see occupational therapy for a removable brace and motion exercises. She will be in this brace at all times except for motion, hygiene, and when just sitting around. I will see her back when she is 3 months out to begin weaning her out of the brace and into normal use.[facility]07-17-2025 History of Present illness Narrative* Kwame Mcneil MD - 02/18/2025 8:20 AM EDT OPERATIVE REPORT: PROCEDURE: Left thumb revision carpometacarpal arthroplasty with slip of abductor pollicis longus tendon and internal brace with suture anchors; left first dorsal compartment release; extensor pollicis brevis transfer and thumb metacarpal phalangeal pinning DATE: 01/07/2025 SURGICAL PATHOLOGY: FINAL DIAGNOSIS A. Left thumb, hardware, removal: - Grossly unremarkable metal plates (gross examination only) 6 weeks out. She is doing well. The pain causes some pain. But otherwise she is doing great and feels tremendous difference versus preop. She is happy. PHYSICAL EXAM: The pin is removed without incident. No signs of infection. Sensation intact in the superficial radial distribution. Maintain thumb EPL and FPL. Smooth, stable, painless circumduction of the CMC. No pain at the first dorsal compartment. All incisions well-healed. Able make a full fist. Today's x-rays show maintained suspension of the left thumb metacarpal with no bony abutment. Stable x-rays versus previous. PLAN: Cast will be removed today and pin will be removed. She will see occupational therapy for a removable brace and motion exercises. She will be in this brace at all times except for motion, hygiene, and when just sitting around. I will see her back when she is 3 months out to begin weaning her out of the brace and into normal use. documented in this encounterThe [facility] Of [facility]07-17-20[facility] History of Present illness Narrative* Elizabeth Johnson, RT(R) - 02/18/2025 7:45 AM EDT Radiology Service Progress Note PATIENT NAME: Lisa Mendez DATE OF SERVICE: February 18, 2025 TIME: 8:38 AM PATIENT IDENTITY VERIFICATION COMPLETED USING TWO (2) IDENTIFIERS: Name and Date of confirmedby patient verbally. FALL SCREENING: Has the patient had 2 falls in the last year or 1 fall with injury or currently using an Ambulatory Assistive Device (Walker, Cane, Wheelchair, Crutches, etc.)? No PATIENT GENDER DATA: Assigned female at . status: : No status:NO. PATIENT RELEVANT IMPLANT DATA REVIEWED: Not Applicable PATIENT PRESENTS WITH AN IMPLANTABLE OR ATTACHED CADD OPERATOR: No RADIOLOGY DEPARTMENT: General X-ray: Exam(s) Completed: Upper Extremity X- Ray(s): Fingers/Thumb, left PERIPHERAL IV DATA: Not applicable SIGNED BY: RT Collin(R) February 18, 2025 8:38 AM documented in this encounterThe [facility] Of [facility]07-17-2025 NoteHNO ID: [id number] Author: ELIZABETH JOHNSON RT(R) Service: Radiology Author Type: Technologist Type: Progress Notes Filed: 02/18/2025 08:39 Note Text: Radiology Service Progress Note PATIENT NAME: Lisa Mendez DATE OF SERVICE: February 18, 2025 TIME: 8:38 AM PATIENT IDENTITY VERIFICATION COMPLETED USING TWO (2) IDENTIFIERS: Name and Date of confirmed by patient verbally. FALL SCREENING: Has the patient had 2 falls in the last year or 1 fall with injury or currently using an Ambulatory Assistive Device (Walker, Cane, Wheelchair, Crutches, etc.)? No PATIENT GENDER DATA: Assigned female at . status: : No status: NO. PATIENT RELEVANT IMPLANT DATA REVIEWED: Not Applicable PATIENT PRESENTS WITH AN IMPLANTABLE OR ATTACHED CADD OPERATOR: No RADIOLOGY DEPARTMENT: General X-ray: Exam(s) Completed: Upper Extremity X-Ray(s): Fingers/Thumb, left PERIPHERAL IV DATA: Not applicable SIGNED BY: RT Collin(R) February 18, 2025 8:38 [facility]07-15-2025 Evaluation note* Diagnosis Onset Date Resolution Status Admit Date Abnormal weight gain acute February 16, 2025 8:23am Bipolar 1 disorder acute February 022024 8:23am BMI 40.0-44.9, adult acute February 16, 2025 8:23am Dietary surveillance and counseling acute February 16, 2025 8:23am Exercise counseling acute February 16, 2025 8:23am Gastroparesis acute February 16, 2025 8:23am History of hysterectomy acute 2024 8:23am Hx of cholecystectomy acute Feb 8:23am Kidney stones acute February 16, 2025 8:23am Mixed hyperlipidemia acute February 16, 2025 8:23am Obesity, Class III, 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 (morbid obesity) acute February 16, 2025 8:23am T2DM (type 2 diabetes mellitus) acut e February 16, 2025 8:23am Episodic lightheadedness acute March 01, 2025 3:28pm Impaired exercise tolerance acute March 01, 2025 3:28pm Lymphedema associated with obesity acute March 01, 2025 3:28pm Obesity, Class III, 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 (morbid obesity) acute March 01, 2025 3:28pm T2DM (type 2 diabetes mellitus) acut e March 01, 2025 3:28pm [facility] Work Phone: 1(410) 141-387207-15-2025 Evaluation note* Diagnosis Onset Date Resolution Status Admit Date Abnormal weight gain acute February 16, 2025 8:23am Bipolar 1 disorder acute February 022024 8:23am BMI 40.0-44.9, adult acute February 16, 2025 8:23am Dietary surveillance and counseling acute February 16, 2025 8:23am Exercise counseling acute February 16, 2025 8:23am Gastroparesis acute February 16, 2025 8:23am History of hysterectomy acute 2024 8:23am Hx of cholecystectomy acute Feb 8:23am Kidney stones acute February 16, 2025 8:23am Mixed hyperlipidemia acute February 16, 2025 8:23am Obesity, Class III, 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 (morbid obesity) acute February 16, 2025 8:23am T2DM (type 2 diabetes mellitus) acut e February 16, 2025 8:23am Episodic lightheadedness acute March 01, 2025 3:28pm Impaired exercise tolerance acute March 01, 2025 3:28pm Lymphedema associated with obesity acute March 01, 2025 3:28pm Obesity, Class III, 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 (morbid obesity) acute March 01, 2025 3:28pm T2DM (type 2 diabetes mellitus) acut e March 01, 2025 3:28pm Dizziness acute April 01, 2 025 3:57pm UTI (urinary tract infection) acute April 01, 2025 3:57pm [facility] Work Phone: 1(891) 124-675007-15-2025 Evaluation note* Diagnosis Onset Date Resolution Status Admit Date Abnormal weight gain acute February 16, 2025 8:23am Bipolar 1 disorder acute February 022024 8:23am BMI 40.0-44.9, adult acute February 16, 2025 8:23am Dietary surveillance and counseling acute February 16, 2025 8:23am Exercise counseling acute February 16, 2025 8:23am Gastroparesis acute February 16, 2025 8:23am History of hysterectomy acute J [id number] 8:23am Hx of cholecystectomy acute Feb 8:23am Kidney stones acute February 16, 2025 8:23am Mixed hyperlipidemia acute February 16, 2025 8:23am Obesity, Class III, 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 (morbid obesity) acute February 16, 2025 8:23am T2DM (type 2 diabetes mellitus) acut e February 16, 2025 8:23am Episodic lightheadedness acute March 01, 2025 3:28pm Impaired exercise tolerance acute March 01, 2025 3:28pm Lymphedema associated with obesity acute March 01, 2025 3:28pm Obesity, Class III, 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 (morbid obesity) acute March 01, 2025 3:28pm T2DM (type 2 diabetes mellitus) acut e March 01, 2025 3:28pm Asymptomatic bacteriuria acute April 01, 2025 3:57pm Dizziness acute April 01, 2 025 3:57pm Pyuria acute April 01, 2 025 3:57pm RLS (restless legs syndrome) acute April 01, 2025 3:57pm UTI (urinary tract infection) acute April 01, 2025 3:57pm [facility] Work Phone: 1(259) 527-257507-14-2025 History of Present illness Narrative* Delroy Merino, NELIA - 02/15/2025 3:30 PM EDT Patient: Lisa Mendez : 1975 PCP: Noms Provider MD Viviana SUBJECTIVE This is a 49 y.o. female thatt presents today for follow up of capsulitis and synovitis to the leftmedial tibiotalar joint capsule Currently they rate their pain on a 1-10 scale a 7 States prior treatments of 2nd steroid injection and nsaids with intermittent relief in the past with recent Medrol pack with minimal improvement In the past States pain is aggrevated with WB. Pt also has hx of left PT tendonitis and has been using [id number]-[id number] ankle sleeve with improvement. Patient has also been using heat molded inserts with negative improvement. Patient also has right EDL type tendinitis and right medial tibiotalar joint capsulitis and synovitis has been using a walking boot with negative improvement. Patient rates pain a 7 /10. Patient did have a [place] type brace for the left ankle however is unable to use secondary to large habitus Allergies: Allergies Allergen Reactions Penicillins Hives, Itching, Rash and Unknown Other reaction(s): itching Ropinirole Hives Topiramate Hives, Rash and Unknown Aloe Vera Unknown Baclofen Unknown and Swelling Other reaction(s): Other: See Comments Cephalexin GI intolerance, Nausea Only and Unknown Other reaction(s): GI Upset, Vomiting Ciprofloxacin Hcl Unknown Ciprofloxacin-Ciproflox Hcl Er Diclofenac Unknown and Other Stomach pain and cramping Duloxetine Fatigue Menthol Unknown Other reaction(s): Other: See Comments Metformin Hives Morphine Nausea And Vomiting and GI intolerance Naproxen Unknown Sumatriptan Unknown Tramadol Unknown Azithromycin Itching, Rash and Unknown Cyclobenzaprine Hives, Unknown and Rash Other reaction(s): rash, itching, Unknown, Unknown Gabapentin Hives, Rash and Unknown Other reaction(s): Other: See Comments, Unknown Ibuprofen Rash Nsaids Hives, Unknown and Rash Tizanidine Rash Zonisamide Rash Past Medical History: Past Medical History: Diagnosis Date Allergies Anxiety Arthritis Asthma ([facility]) Back pain 06/17/2017 Backache 04/05/2015 Bipolar 1 disorder ([facility]) Bronchitis Chicken pox Chronic back pain DDD (degenerative disc disease), lumbar 06/17/2017 Depression Diabetes mellitus ([facility]) Disturbance of skin sensation 04/05/2015 Insomnia 01/06/2018 Kidney stone Lumbar radiculopathy 01/06/2018 Lumbar spondylosis 01/06/2018 Measles Migraine Muscle weakness 04/05/2015 Overactive bladder Pain in limb 03/04/2015 Pneumonia ([facility]) Radicular pain 03/21/2018 Radiculopathy 03/04/2015 Restless legs syndrome Scarlet fever Tonsillitis Medications: Current Outpatient Medications: Alcohol Swabs (B-D SINGLE USE SWABS REGULAR) pads, USE SWAB EXTERNALLY DIRECTED 4 TIMES DAILY, Disp: , Rfl: Caplyta 10.5 MG capsule, Take 1 capsule by mouth Daily, Disp: , Rfl: carBAMazepine (TEGretol) 200 MG tablet, Take 200 mg by mouth in the morning and 200 mg before bedtime., Disp: , Rfl: carbidopa-levodopa (Sinemet) 25-100 MG tablet, Take 1 tablet by mouth in the morning and 1 tablet before bedtime., Disp: , Rfl: cholecalciferol 1.25 MG (58254 UT) capsule, Take 50,000 Units by mouth 1 (one) time per week, Disp:, Rfl: Continuous Blood Gluc Program Director/Music Director (Dexcom G7 Program Director/Music Director) device, USE DIRECTED, Disp: , Rfl: Continuous Blood Gluc Sensor (Dexcom G7 Sensor) misc, USE DIRECTED, Disp: , Rfl: cyanocobalamin (Vitamin B-12) 1000 MCG tablet, Take 1,000 mcg by mouth in the morning., Disp: , Rfl: glipiZIDE (Glucotrol) 5 MG tablet, 1 (one) time each day at the same time., Disp: , Rfl: methylPREDNISolone (Medrol Dospak) 4 MG tablets, Follow schedule on MEDROL PACK package instructions to be used as directed, Disp: 21 tablet, Rfl: 0 nabumetone (Relafen) 500 MG tablet, Take 500 mg by mouth 2 (two) times a day as needed (Patient nottaking: Reported on 11/21/2024), Disp: , Rfl: pantoprazole (ProtoNix) 40 MG EC tablet, Take 40 mg by mouth Daily (Patient not taking: Reported on11/21/2024), Disp: , Rfl: potassium chloride CR (Klor-Con M20) 20 MEQ ER tablet, Take 1 tablet by mouth in the morning. (Patient not taking: Reported on 11/21/2024), Disp: , Rfl: pramipexole (Mirapex) 0.125 MG tablet, Take 1 tablet (0.125 mg) by mouth in the morning and 1 tablet (0.125 mg) before bedtime. (Patient not taking: Reported on 11/21/2024), Disp: 60 tablet, Rfl: 1 pregabalin (Lyrica) 100 MG capsule, Take 100 mg by mouth in the morning and 100 mg before bedtime.,Disp: , Rfl: QUEtiapine (SEROquel) 25 MG tablet, Take 25 mg by mouth at bedtime, Disp: , Rfl: Rimegepant Sulfate (Nurtec) 75 MG tablet dispersible, TAKE 1 TABLET BY MOUTH AT THE ONSET OF MIGRAINE Take no more than 1 dose in 48 hrs. (Patient not taking: Reported on 11/21/2024), Disp: 8 tablet, Rfl: 2 Trulicity 3 MG/0.5ML solution pen-injector, Administer the contents of one prefilled pen subcutaneously once weekly as directed, Disp: , Rfl: Social History: Social History Socioeconomic History Marital status: Spouse name: Not on file Number of children: Not on file Years of education: Not on file Highest education level: Not on file Occupational History Not on file Tobacco Use Smoking status: Former Types: Cigarettes Smokeless tobacco: Never Vaping Use Vaping status: Never Used Substance and Sexual Activity Alcohol use: Yes Comment: caffeine 1-2 cups per day; soda Drug use: Defer Sexual activity: Defer Other Topics Concern Not on file Social History Narrative Exercise: occasional Social Drivers of Health Financial Resource Strain: Not on file Food Insecurity: Food Insecurity Present (03/08/2023) Received from [facility] Hunger Screening Within the past 12 months we worried whether our food would run out before we got money to buy more.: Sometimes True Within the past 12 months the food we bought just didn't last and we didn't have money to get more.: Sometimes True Transportation Needs: Not on file Physical Activity: Not on file Stress: Not on file Social Connections: Not on file Intimate Partner Violence: Not At Risk (06/04/2023) Received from [facility] Humiliation, Afraid, Rape, and Kick questionnaire Fear of Current or Ex-Partner: No Emotionally Abused: No Physically Abused: No Sexually Abused: No Housing Stability: Not on file ROS: Gastrointestinal: denies abdominal pain, ulcers, or changes in appetite or bowel habits with OTC nsaids Musculoskeletal: Positive generalized arthritis to joints and denies loss of strength. Positive history of back issues as well as total knee replacement Cardiovascular: denies CP, palpitations, irregular rhythms OBJECTIVE LE EXAM: DERM: Positive hair growth to b/l feet with good skin turgor noted. Negative openings in skin. VASC: Palpable pedal pulsed b/l with warm to cool tibia to toes b/l NEURO: Gross sensation intact digits 1-10 and b/l feet ORTHO: +5/5 DF/PF/IN/EV right, +5/5 DF/PF/IN/EV left. 20 degrees inversion and 10 degrees eversion STJ b/l. Ankle ROM less than 10 degrees b/l. negative pain on palpation to right 3rd PIPJ and proximal phalanx positive pain on palpation left PT tendon near medial malleolar and distally positive pain on palpation to medial aspect of the left ankle gutter and capsule positive pain on palpation to medial and lateral aspect of the right tibiotalar joint diminished pain on palpation to right EDL tendon complex ASSESSMENT 1. DJD (degenerative joint disease), ankle and foot, left 2. DJD (degenerative joint disease), ankle and foot, right 3. Posterior tibial tendinitis of left leg PLAN Patient to continue with oral anti - inflammatories as needed for pain and recommended OTC medications such as tylenol or Ibuprofen Continue with inserts/ heat molded Continue with brace to ankle left ankle Patient have [facility] to apply ice to affected areas for 20 minutes, twice daily. Ice should not be applied directly to skin. Delroy Merino DPM documented in this encounterSaint Alexius [id number] Radiology Diagnostic study [facility] [place] [address] [place] [address] CT Scan Report Signed Patient: Lisa Mendez MR#: [id number] : 1975 Acct:[id number] Age/Sex: 49 / F ADM Date: 5 Loc: ER Room: Type: [facility] ER Attending Dr: Copies to: Lisa Adkins APRN~ Ordering Provider: Lisa Adkins APRN Date of Service: 02/14/25 CT/CT head/brain wo con: headache CT head/brain wo con 02/14/2025 5:16 PM SIGNS AND SYMPTOMS: Headaches, right ear pain TECHNIQUE:Multi-detector CT axial slices of the brain were obtained without IV contrast. CT was performed with one or more of the following dose reduction techniques: Automated exposure control, adjustment of the mA and/or kV accordingto patient size, or use of iterative reconstruction technique. COMPARISON: 02/01/2023 FINDINGS: There is no shift of the midline structures, acute intracranial bleeding, mass effects, or evidence of acute ischemia. The ventricular system isnormal in size. The brainstem and the cerebellum are unremarkable. The visualized intraorbital contents, the visualized paranasal sinuses, and the infratemporal soft tissues show no acute abnormality. The osseous structures in the skull base andthe calvarium show no abnormality. CT/CT head/brain wo con IMPRESSION: Normal noncontrasted CT brain. Impression dictated by: Mode Handy M.D. 02/14/2025 5:39 PM Dictation Location: [facility]- Transcribed By: HARLAN 02/14/251738 Dictated By: Mode Handy II, MD 02/14/251736 Signed By: 02/14/251738 [facility] Work Phone: 1(832) 116-391307-13-2025 Hospital Discharge instructions Additional Instructions Rest. Push fluids. Take [id number] Tylenol Motrin as needed for pain or discomfort. Take the Nurtec as prescribed. Lay in a dark room. Avoid excessive electronics. Follow-up with your primary care provider in the next 3 to 5 days. Return here if symptoms persist or worsen.[facility] Work Phone: 1(702) 444-310107-02-2025 NoteHNO ID: [id number] Author: RONALDO WESTBROOK Cast Tech Service: ? Author Type: Ice Guard Tester Type: Progress Notes Filed: 02/03/2025 16:04 Note Text: Patient in today for scheduled appointment. Cast removed. Left arm cleansed with Soap and water. Applied Short Arm Thumb Spica Cast to left arm. Extra padding placed around thumb pin. Instructions on cast care given. Will f/u as scheduled/prn. Ronaldo Westbrook [facility]07-02-2025 History of Present illness Narrative* Ronaldo Westbrook Cast Tech - 02/03/2025 4:02 PM EDT Patient in today for scheduled appointment. Cast removed. Left arm cleansed with Soap and water. Applied Short Arm Thumb Spica Cast to left arm. Extra padding placed around thumb pin. Instructionson cast care given. Will f/u as scheduled/prn. RUBIA Forman documented in this encounterThe [facility]06-30-[facility] Note* Addendum Note - Aline Hammonds PA-C - 02/01/2025 2:45 PM EDTAddended by: ALINE HAMMONDS on: 02/01/2025 02:45 PM Modules accepted: Orders [facility]06-30-2025 Miscellaneous Notes* Addendum Note - Aline Hammonds PA-C - 02/01/2025 2:45 PM EDTAddended by: ALINE HAMMONDS on: 02/01/2025 02:45 PM Modules accepted: Orders * Telephone Encounter - Mode Mcneil RN - 02/01/2025 1:30 PM EDT Called patient but phone rang to voicemail. Left detailed message explaining the reason for the call, also sent a response message to patient on [employer]. documented in this encounterThe [facility]06-30-2025 History of Present illness Narrative* Delroy Merino DPM - 02/01/2025 2:10 PM EDT Patient: Lisa Mendez : 1975 PCP: Noms Provider MD Viviana SUBJECTIVE This is a 49 y.o. female thatt presents today for follow up of capsulitis and synovitis to the leftmedial tibiotalar joint capsule Currently they rate their pain on a 1-10 scale a 4 States prior treatments of 2nd steroid injection and nsaids with intermittent relief in the past with recent Medrol pack with minimal improvement. States pain is aggrevated with WB. Pt also has hx of left PT tendonitis and has been using [id number] ankle sleeve with improvement. Patient has also been using heat molded inserts with improvement Patient also has right EDL type tendinitis and right medial tibiotalar joint capsulitis and synovitis has been not been using awalking boot with negative improvement. Patient rates pain a 7/10. Presents today for follow up of MRI of right ankle to rule out osteochondral defect Allergies: Allergies Allergen Reactions Penicillins Hives, Itching, Rash and Unknown Other reaction(s): itching Ropinirole Hives Topiramate Hives, Rash and Unknown Aloe Vera Unknown Baclofen Unknown and Swelling Other reaction(s): Other: See Comments Cephalexin GI intolerance, Nausea Only and Unknown Other reaction(s): GI Upset, Vomiting Ciprofloxacin Hcl Unknown Ciprofloxacin-Ciproflox Hcl Er Diclofenac Unknown and Other Stomach pain and cramping Duloxetine Fatigue Menthol Unknown Other reaction(s): Other: See Comments Metformin Hives Morphine Nausea And Vomiting and GI intolerance Naproxen Unknown Sumatriptan Unknown Tramadol Unknown Azithromycin Itching, Rash and Unknown Cyclobenzaprine Hives, Unknown and Rash Other reaction(s): rash, itching, Unknown, Unknown Gabapentin Hives, Rash and Unknown Other reaction(s): Other: See Comments, Unknown Ibuprofen Rash Nsaids Hives, Unknown and Rash Tizanidine Rash Zonisamide Rash Past Medical History: Past Medical History: Diagnosis Date Allergies Anxiety Arthritis Asthma ([facility]) Back pain 06/17/2017 Backache 04/05/2015 Bipolar 1 disorder ([facility]) Bronchitis Chicken pox Chronic back pain DDD (degenerative disc disease), lumbar 06/17/2017 Depression Diabetes mellitus ([facility]) Disturbance of skin sensation 04/05/2015 Insomnia 01/06/2018 Kidney stone Lumbar radiculopathy 01/06/2018 Lumbar spondylosis 01/06/2018 Measles Migraine Muscle weakness 04/05/2015 Overactive bladder Pain in limb 03/04/2015 Pneumonia ([facility]) Radicular pain 03/21/2018 Radiculopathy 03/04/2015 Restless legs syndrome Scarlet fever Tonsillitis Medications: Current Outpatient Medications: Alcohol Swabs (B-D SINGLE USE SWABS REGULAR) pads, USE SWAB EXTERNALLY DIRECTED 4 TIMES DAILY, Disp: , Rfl: Caplyta 10.5 MG capsule, Take 1 capsule by mouth Daily, Disp: , Rfl: carBAMazepine (TEGretol) 200 MG tablet, Take 200 mg by mouth in the morning and 200 mg before bedtime., Disp: , Rfl: carbidopa-levodopa (Sinemet) 25-100 MG tablet, Take 1 tablet by mouth in the morning and 1 tablet before bedtime., Disp: , Rfl: cholecalciferol 1.25 MG (72844 UT) capsule, Take 50,000 Units by mouth 1 (one) time per week, Disp:, Rfl: Continuous Blood Gluc Program Director/Music Director (Dexcom G7 Program Director/Music Director) device, USE DIRECTED, Disp: , Rfl: Continuous Blood Gluc Sensor (Dexcom G7 Sensor) misc, USE DIRECTED, Disp: , Rfl: cyanocobalamin (Vitamin B-12) 1000 MCG tablet, Take 1,000 mcg by mouth in the morning., Disp: , Rfl: glipiZIDE (Glucotrol) 5 MG tablet, 1 (one) time each day at the same time., Disp: , Rfl: methylPREDNISolone (Medrol Dospak) 4 MG tablets, Follow schedule on MEDROL PACK package instructions to be used as directed, Disp: 21 tablet, Rfl: 0 nabumetone (Relafen) 500 MG tablet, Take 500 mg by mouth 2 (two) times a day as needed (Patient nottaking: Reported on 11/21/2024), Disp: , Rfl: pantoprazole (ProtoNix) 40 MG EC tablet, Take 40 mg by mouth Daily (Patient not taking: Reported on11/21/2024), Disp: , Rfl: potassium chloride CR (Klor-Con M20) 20 MEQ ER tablet, Take 1 tablet by mouth in the morning. (Patient not taking: Reported on 11/21/2024), Disp: , Rfl: pramipexole (Mirapex) 0.125 MG tablet, Take 1 tablet (0.125 mg) by mouth in the morning and 1 tablet (0.125 mg) before bedtime. (Patient not taking: Reported on 11/21/2024), Disp: 60 tablet, Rfl: 1 pregabalin (Lyrica) 100 MG capsule, Take 100 mg by mouth in the morning and 100 mg before bedtime.,Disp: , Rfl: QUEtiapine (SEROquel) 25 MG tablet, Take 25 mg by mouth at bedtime, Disp: , Rfl: Rimegepant Sulfate (Nurtec) 75 MG tablet dispersible, TAKE 1 TABLET BY MOUTH AT THE ONSET OF MIGRAINE Take no more than 1 dose in 48 hrs. (Patient not taking: Reported on 11/21/2024), Disp: 8 tablet, Rfl: 2 Trulicity 3 MG/0.5ML solution pen-injector, Administer the contents of one prefilled pen subcutaneously once weekly as directed, Disp: , Rfl: Social History: Social History Socioeconomic History Marital status: Spouse name: Not on file Number of children: Not on file Years of education: Not on file Highest education level: Not on file Occupational History Not on file Tobacco Use Smoking status: Former Types: Cigarettes Smokeless tobacco: Never Vaping Use Vaping status: Never Used Substance and Sexual Activity Alcohol use: Yes Comment: caffeine 1-2 cups per day; soda Drug use: Defer Sexual activity: Defer Other Topics Concern Not on file Social History Narrative Exercise: occasional Social Drivers of Health Financial Resource Strain: Not on file Food Insecurity: Food Insecurity Present (03/08/2023) Received from [facility] Hunger Screening Within the past 12 months we worried whether our food would run out before we got money to buy more.: Sometimes True Within the past 12 months the food we bought just didn't last and we didn't have money to get more.: Sometimes True Transportation Needs: Not on file Physical Activity: Not on file Stress: Not on file Social Connections: Not on file Intimate Partner Violence: Not At Risk (06/04/2023) Received from [facility] Humiliation, Afraid, Rape, and Kick questionnaire Fear of Current or Ex-Partner: No Emotionally Abused: No Physically Abused: No Sexually Abused: No Housing Stability: Not on file ROS: Gastrointestinal: denies abdominal pain, ulcers, or changes in appetite or bowel habits with OTC nsaids Musculoskeletal: Positive generalized arthritis to joints and denies loss of strength. Positive history of back issues as well as total knee replacement Cardiovascular: denies CP, palpitations, irregular rhythms OBJECTIVE LE EXAM: DERM: Positive hair growth to b/l feet with good skin turgor noted. Negative openings in skin. VASC: Palpable pedal pulsed b/l with warm to cool tibia to toes b/l NEURO: Gross sensation intact digits 1-10 and b/l feet ORTHO: +5/5 DF/PF/IN/EV right, +5/5 DF/PF/IN/EV left. 20 degrees inversion and 10 degrees eversion STJ b/l. Ankle ROM less than 10 degrees b/l. Minimal pain on palpation to right 3rd PIPJ and proximal phalanx diminished pain on palpation left PT tendon near medial malleolar and distally diminished pain on palpation to medial aspect of the left ankle gutter and capsule positive pain on palpation to medial and lateral aspect of the right tibiotalar joint positive pain on palpation to right EDL tendon complex MRI MRI Right Ankle without contrast TECHNIQUE: Multiplanar T1 and T2-weighted imaging of the obtained without contrast. COMPARISON: None HISTORY: Right ankle pain laterally. No injury. Osteochondritis dissecans involving the right ankle. Capsulitis of the metatarsophalangeal joint of the right foot. Posterior tibial tendinitis of the left leg. CLINICAL QUESTION: FINDINGS: SYNDESMOSIS: Adequate alignment of the distal tibia and fibula THE BONE MARROW: The midfoot bone marrow edema likely degenerative. Extensive degenerative changes of the midfoot includes subarticular bone marrow edema cystic changes. Marginal spurring. FRACTURE: No fracture identified. LATERAL COLLATERAL LIGAMENT COMPLEX: Intact anterior talofibular ligament. Intact calcaneofibular ligament. Intact posterior talofibular ligament. ANTEROLATERAL COMPARTMENT: No anterolateral impingement findings. PERONEAL TENDONS: Normal peroneal brevis tendon adjacent to the bone. No longitudinal split tear. Normal appearance of the peroneal longus tendon. Normal low signal tendon. Intact superior peroneal retinaculum with normal alignment of the peroneal brevis tendon. Normal appearance of the peroneal tendons behind the retromalleolar grove of the lateral malleolus. There is some fluid surrounding the previous lung is in progress brevis tendons just below the lateral malleolus suggesting tenosynovitis.. No hypertrophy of the peroneal tubercle of the lateral calcaneus BIFURCATE LIGAMENT: Calcaneocuboid and calcaneonavicular ligaments of the bifurcate ligament are intact. The anterior process of the calcaneus is intact without bone marrow edematous changes. Intact the midtarsal joint. DELTOID LIGAMENT: The superficial and deep components of the medial collateral deltoid ligaments are intact. SPRING LIGAMENT: The spring ligament normally intersects the posterior tibial tendon in the talar head with coronal view no findings of tear or thickening. Specifically the superior medial segment is preserved. POSTERIOR TIBIAL TENDON: Normal orientation the posterior tibial tendon behind of the medial malleolus inserting into the navicular bone. Small amount of normal fluid is seen within the tendon sheath which terminates 1-2 cm proximal to the navicular insertion. No distal paratendinitis of the tendon identified. Unremarkable heterogeneous signal intensity of the distal tendon identified. SINUS TARSI: Normal fat-containing sinus tarsi identified without evidence of posterior tibial tendon dysfunction, talocalcaneal or fibulocalcaneal impingement identified. Small ganglion cyst identified within the sinus tarsi. FLEXOR DIGITORUM LONGUS: Intact. FLEXOR HALLUCIS LONGUS: Intact . Fluid surrounding the flexor hallucis longus is likely a normal finding suggesting communication of the joint. ACHILLES TENDON: Normal homogeneous low signal. Normal thickness with slight concave anterior surface present. No peritendinous edema. No retrocalcaneal bursitis. No Precious deformity. Infiltration No tear of the calcaneal insertion or mid substance. Normal Lucho's fat-pad. No Achilles tendon insertion enthesophyte. ANTERIOR TIBIAL TENDON:Anterior tibial tendon intact. No surrounding abnormal tendon sheath fluid. PLANTAR FASCIA: 3 fascicles of the plantar fascia are intact. No calcaneal spurring. No reactive bone marrow edema. No adjacent soft tissue edema. MR/MR ankle RT wo con IMPRESSION: Peroneal tenosynovitis below the lateral malleolus. Extensive midfoot degenerative changes as described above. Impression dictated by: Travis Kilpatrick M.D. 01/18/2025 12:48 PM ASSESSMENT 1. Osteochondritis dissecans of right ankle 2. DJD (degenerative joint disease), ankle and foot, left 3. DJD (degenerative joint disease), ankle and foot, right 4. Posterior tibial tendinitis of left leg PLAN Patient to continue with oral anti - inflammatories as needed for pain and recommended OTC medications such as tylenol or Ibuprofen Continue with inserts/ heat molded Continue with brace to ankle left ankle Patient is to use walking boot that she has at home to her right foot Recommended to apply ice to affected areas for 20 minutes, twice daily. Ice should not be applied directly to skin. Patient returned to orthotics with walking boot has has not been wearing and follow up in 2 weeks Reviewed MRI today Delroy Merino DPM documented in this encounterSaint Alexius [id number] Telephone encounter Note* Telephone Encounter - Mode Mcneil RN - 02/01/2025 1:30 PM EDT Called patient but phone rang to [employer]. Left detailed message explaining the reason for the call, also sent a response message to patient on [employer]. [facility]06-18-2025 NoteHNO ID: [id number] Author: RNOALDO WESTBROOK Cast Tech Service: ? Author Type: Ice Guard Tester Type: Progress Notes Filed: 01/20/2025 11:18 Note Text: Patient in today for scheduled appointment. Dressing removed. Examined by TRI Hammonds. Applied Short Arm Thumb Spica Cast to left arm. Extra padding was placed around the pin. Instructions on cast care given. Will f/u as scheduled/prn. [facility] History of Present illness Narrative* Ronaldo Westbrook Cast Tech - 01/20/2025 11:17 AM EDT Patient in today for scheduled appointment. Dressing removed. Examined by TRI Hammonds. Applied Short Arm Thumb Spica Cast to left arm. Extra padding was placed around the pin. Instructions on cast care given. Will f/u as scheduled/prn. RUBIA Forman documented in this encounterThe [facility]25 NoteHNO ID: [id number] Author: ALINE HAMMONDS PA-C Service: ? Author Type: Physician Supervisor Advice Type: Progress Notes Filed: 01/20/2025 11:25 Note Text: January 20, 2025 OPERATIVE REPORT: PROCEDURE: Left thumb revision carpometacarpal arthroplasty with slip of abductor pollicis longus tendon and internal brace with suture anchors; left first dorsal compartment release; extensor pollicis brevis transfer and thumb metacarpal phalangeal pinning DATE: 01/07/2025 SURGICAL PATHOLOGY: FINAL DIAGNOSIS A. Left thumb, hardware, removal: - Grossly unremarkable metal plates (gross examination only) She is 13 days out. She noted the pin cap fell off and came out of the splint and feels that the pin is causing discomfort. She does have soreness and an ache through the thumb that is largely unchanged. Denies any numbness or tingling. PHYSICAL EXAM: On exam of the left hand incisions over the thumb and forearm and hand are healing nicely without signs of infection, nylon sutures intact. Pin at the MP joint is intact, no signs of infection at the pin site and no abrasions or ulcerations to the skin surrounding the pin. There is pain-free and smooth passive circumduction of the thumb. Thumb MP moves as a single unit. hey can perform gentle flexion and extension at the wrist. Sensation is intact to light touch in the median, radial, ulnar and superficial radial nerve distributions. AIN, PIN and ulnar motor is intact. They can make a loose fist. Radial pulse 2+ and brisk capillary refill all digits. Today's x-rays demonstrate suspension of thumb metacarpal and intact pin spanning the MP joint. PLAN: Patient is progressing well. Sutures will be removed. We will transition to a thumb spica cast with the IP free today, pin site will be well-padded. They will maintain this for the next 4 weeks and remain nonweightbearing. At the next visit they will come out of the cast, pin will be removed and she will be seen by occupational therapy. They will fabricate a removable brace and begin working on motion exercises. Patient will be fully nonweightbearing until 3 months out from surgery. Follow-up as scheduled in 4 weeks. [facility]06-18-2025 History of Present illness Narrative* Aline Hammonds PA-C - 01/20/2025 10:31 AM EDT January 20, 2025 OPERATIVE REPORT: PROCEDURE: Left thumb revision carpometacarpal arthroplasty with slip of abductor pollicis longus tendon and internal brace with suture anchors; left first dorsal compartment release; extensor pollicis brevis transfer and thumb metacarpal phalangeal pinning DATE: 01/07/2025 SURGICAL PATHOLOGY: FINAL DIAGNOSIS A. Left thumb, hardware, removal: - Grossly unremarkable metal plates (gross examination only) She is 13 days out. She noted the pin cap fell off and came out of the splint and feels that the pin is causing discomfort. She does have soreness and an ache through the thumb that is largely unchanged. Denies any numbness or tingling. PHYSICAL EXAM: On exam of the left hand incisions over the thumb and forearm and hand are healing nicely without signs of infection, nylon sutures intact. Pin at the MP joint is intact, no signs of infection at the pin site and no abrasions or ulcerations to the skin surrounding the pin. There is pain-free and smooth passive circumduction of the thumb. Thumb MP moves as a single unit. hey can perform gentle flexion and extension at the wrist. Sensation is intact to light touch in the median, radial, ulnar and superficial radial nerve distributions. AIN, PIN and ulnar motor is intact. They canmake a loose fist. Radial pulse 2+ and brisk capillary refill all digits. Today's x-rays demonstrate suspension of thumb metacarpal and intact pin spanning the MP joint. PLAN: Patient is progressing well. Sutures will be removed. We will transition to a thumb spica cast with the IP free today, pin site will be well-padded. They will maintain this for the next 4 weeksand remain nonweightbearing. At the next visit they will come out of the cast, pin will be removed and she will be seen by occupational therapy. They will fabricate a removable brace and begin working on motion exercises. Patient will be fully nonweightbearing until 3 months out from surgery. Follow-up as scheduled in 4 weeks. Aline Hammonds PA-C documented in this encounterThe [facility] NoteHNO ID: [id number] Author: SIMONE IRVERA RT(R) Service: ? Author Type: Technologist Type: Progress Notes Filed: 01/20/2025 10:22 Note Text: Radiology Service Progress Note PATIENT NAME: Lisa Mendez DATE OF SERVICE: January 20, 2025 TIME: 10:22 AM PATIENT IDENTITY VERIFICATION COMPLETED USING TWO (2) IDENTIFIERS: Name and Date of confirmed by patient verbally. FALL SCREENING: Has the patient had 2 falls in the last year or 1 fall with injury or currently using an Ambulatory Assistive Device (Walker, Cane, Wheelchair, Crutches, etc.)? No PATIENT GENDER DATA: Assigned female at . status: : No status: NO. PATIENT RELEVANT IMPLANT DATA REVIEWED: Not Applicable PATIENT PRESENTS WITH AN IMPLANTABLE OR ATTACHED CADD OPERATOR: No RADIOLOGY DEPARTMENT: General X-ray: Exam(s) Completed: Upper Extremity X-Ray(s): Fingers/Thumb, left PERIPHERAL IV DATA: Not applicable SIGNED BY: RT Ishmael(Yolanda) January 20, 2025 10:22 [facility]06-18-2025 History of Present illness Narrative* Simone Rivera RT(R) - 01/20/2025 10:22 AM EDT Radiology Service Progress Note PATIENT NAME: Lisa Mendez DATE OF SERVICE: January 20, 2025 TIME: 10:22 AM PATIENT IDENTITY VERIFICATION COMPLETED USING TWO (2) IDENTIFIERS: Name and Date of confirmedby patient verbally. FALL SCREENING: Has the patient had 2 falls in the last year or 1 fall with injury or currently using an Ambulatory Assistive Device (Walker, Cane, Wheelchair, Crutches, etc.)? No PATIENT GENDER DATA: Assigned female at . status: : No status:NO. PATIENT RELEVANT IMPLANT DATA REVIEWED: Not Applicable PATIENT PRESENTS WITH AN IMPLANTABLE OR ATTACHED CADD OPERATOR: No RADIOLOGY DEPARTMENT: General X-ray: Exam(s) Completed: Upper Extremity X- Ray(s): Fingers/Thumb, left PERIPHERAL IV DATA: Not applicable SIGNED BY: RT Ishmael(Yolanda) January 20, 2025 10:22 AM documented in this encounterThe [facility]06-[facility] Telephone encounter Note * Telephone Encounter - Andrea Sims RN - 01/16/2025 11:07 PM EDT Spouse calling regarding a rubber piece from a pin that is in patient's thumb from recent hand surgery falling off. [facility] [ ] to speak with provider communications electrician supervisor for Dr. Mcneil, Orthopedics. While waiting to speak to the Provider on-call, if you develop ANY new symptoms, if your condition worsens, or if you are concerned or anxious about your condition for any reason, go to the EmergencyRoom or call 911. [facility]06-14-2025 Miscellaneous Notes* Telephone Encounter - Andrea Sims RN - 01/16/2025 11:07 PM EDT Spouse calling regarding a rubber piece from a pin that is in patient's thumb from recent hand surgery falling off. Conferenced to [employer] [facility] [ ] to speak with provider communications electrician supervisor for Dr. Mcneil, Orthopedics. While waiting to speak to the Provider on-call, if you develop ANY new symptoms, if your condition worsens, or if you are concerned or anxious about your condition for any reason, go to the EmergencyRoom or call 911. documented in this encounterThe [facility]06-12-2025 NoteHNO ID: [id number] Author: KENNY SUNG OCCA Service: ? Author Type: Manager Epic Type: Progress Notes Filed: 01/14/2025 16:41 Note Text: PT ASSESSMENT - CASTING ROOM Lisa presents for dressing change and Application of splint. Post op splint removed. Examined by Dr. Mcneil. Adaptic and dry dressing applied to incisions. Pin padded. Applied short arm thumb spica splint with IP free: to Left arm. Patient has been instructed in Care of splint. [facility] History of Present illness Narrative* Kenny Sung OCCA - 01/14/2025 4:39 PM EDT PT ASSESSMENT - CASTING ROOM Lisa presents for dressing change and Application of splint. Post op splint removed. Examined by Dr. Mcneil. Adaptic and dry dressing applied to incisions. Pin padded. Applied short arm thumb spica splint with IP free: to Left arm. Patient has been instructed in Care of splint. ELIAZAR Bennett documented in this encounterThe [facility]06-[facility] History of Present illness Narrative* Tkia uRbio RT(R) - 01/14/2025 3:45 PM EDT Radiology Service Progress Note PATIENT NAME: Lisa Mendez DATE OF SERVICE: January 14, 2025 TIME: 3:46 PM PATIENT IDENTITY VERIFICATION COMPLETED USING TWO (2) IDENTIFIERS: Name and Date of confirmedby patient verbally. FALL SCREENING: Has the patient had 2 falls in the last year or 1 fall with injury or currently using an Ambulatory Assistive Device (Walker, Cane, Wheelchair, Crutches, etc.)? No PATIENT GENDER DATA: Assigned female at . status: : No status:NO. PATIENT RELEVANT IMPLANT DATA REVIEWED: Not Applicable PATIENT PRESENTS WITH AN IMPLANTABLE OR ATTACHED CADD OPERATOR: No RADIOLOGY DEPARTMENT: General X-ray: Exam(s) Completed: Upper Extremity X- Ray(s): Hand, left PERIPHERAL IV DATA: Not applicable SIGNED BY:RT Analy(R) January 14, 2025 3:46 PM documented in this encounterThe [facility]06-[facility]-2025 NoteHNO ID: [id number] Author: TKIA RUBIO RT(R) Service: Radiology Author Type: Technologist Type: Progress Notes Filed: 01/14/2025 15:46 Note Text: Radiology Service Progress Note PATIENT NAME: Lisa Mendez DATE OF SERVICE: January 14, 2025 TIME: 3:46 PM PATIENT IDENTITY VERIFICATION COMPLETED USING TWO (2) IDENTIFIERS: Name and Date of confirmed by patient verbally. FALL SCREENING: Has the patient had 2 falls in the last year or 1 fall with injury or currently using an Ambulatory Assistive Device (Walker, Cane, Wheelchair, Crutches, etc.)? No PATIENT GENDER DATA: Assigned female at . status: : No status: NO. PATIENT RELEVANT IMPLANT DATA REVIEWED: Not Applicable PATIENT PRESENTS WITH AN IMPLANTABLE OR ATTACHED CADD OPERATOR: No RADIOLOGY DEPARTMENT: General X-ray: Exam(s) Completed: Upper Extremity X-Ray(s): Hand, left PERIPHERAL IV DATA: Not applicable SIGNED BY:RT Analy(R) January 14, 2025 3:46 [facility]CBer[facility]06-[facility]-20[facility] NoteHNO ID: [id number] Author: KWAME MCNEIL MD Service: ? Author Type: Physician Type: Progress Notes Filed: 01/19/2025 22:33 Note Text: OPERATIVE REPORT: PROCEDURE: Left thumb revision carpometacarpal arthroplasty with slip of abductor pollicis longus tendon and internal brace with suture anchors; left first dorsal compartment release; extensor pollicis brevis transfer and thumb metacarpal phalangeal pinning DATE: 01/07/2025 SURGICAL PATHOLOGY: FINAL DIAGNOSIS A. Left thumb, hardware, removal: - Grossly unremarkable metal plates (gross examination only) She is 1 week out. She was doing well but was [place] has severe pain. PHYSICAL EXAM: The left thumb is examined. All incisions are healing nicely with no signs of infection. Pin is intact. Superficial radial nerve distribution is decreased at baseline. Thumb EPL and FPL intact. Smooth and painless circumduction of the CMC, stable. Today's x-rays demonstrate a well suspended thumb metacarpal with an intact pin across the MP joint. PLAN: She was reassured that everything looks good. We will proceed with our previously laid out plan of full-time immobilization until 6 weeks postop. At that time she will go into a removable brace and the pin will be removed. [facility]06-12-2025 History of Present illness Narrative* Kwame Mcneil MD - 01/14/2025 3:33 PM EDT OPERATIVE REPORT: PROCEDURE: Left thumb revision carpometacarpal arthroplasty with slip of abductor pollicis longus tendon and internal brace with suture anchors; left first dorsal compartment release; extensor pollicis brevis transfer and thumb metacarpal phalangeal pinning DATE: 01/07/2025 SURGICAL PATHOLOGY: FINAL DIAGNOSIS A. Left thumb, hardware, removal: - Grossly unremarkable metal plates (gross examination only) She is 1 week out. She was doing well but was hit by [place] has severe[place]. PHYSICAL EXAM: The left thumb is examined. All incisions are healing nicely with no signs of infection. Pin is intact. Superficial radial nerve distribution is decreased at baseline. Thumb EPL and FPL intact. Smooth and painless circumduction of the CMC, stable. Today's x-rays demonstrate a well suspended thumb metacarpal with an intact pin across the MP joint. PLAN: She was reassured that everything looks good. We will proceed with our previously laid out plan of full-time immobilization until 6 weeks postop. At that time she will go into a removable braceand the pin will be removed. documented in this encounterThe [facility]06-[facility]20[facility] Telephone encounter Note * Telephone Encounter - Mode Mcneil RN - 01/13/2025 1:06 PM EDT Called and spoke with patient, informed patient that she is scheduled for appointment tomorrow (01/14/2025) with Dr. Mcneil, patient understood. Confirmed the time and place and explained that patientwill get X-rays prior to appointment, patient again understood. [facility]06-11-2025 Miscellaneous Notes* Telephone Encounter - Mode Mcneil RN - 01/13/2025 1:06 PM EDT Called and spoke with patient, informed patient that she is scheduled for appointment tomorrow (01/14/2025) with Dr. Mcneil, patient understood. Confirmed the time and place and explained that patientwill get X-rays prior to appointment, patient again understood. documented in this encounterThe [facility]06-[facility]-2025 NoteHNO ID: [id number] Author: KENNY CASTILLO AA Service: ? Author Type: Cloth Measurer Machine Type: Anesthesia Procedure Notes Filed: 01/07/2025 08:02 Note Text: ANESTHESIOLOGY PROCEDURE NOTE Airway General Information Procedure Start Time/Medication Administration: 01/07/2025 7:42 AM Procedure End Time: 01/07/2025 7:42 AM Patient location during procedure: OR Staffing Performed by: SG Indications and Patient Condition Indications for airway management: anesthesia Preoxygenated: yes anesthesia circuit Method: asleep Cricoid Pressure: No Manual In-Line Stabilization: No Difficult Mask: No Airway Accessory: LMA Final Airway Details Final airway type: supraglottic airway Number of attempts at approach: 1 Final Supraglottic Airway: i-gel Size 4 Seal Adequate: yes Failed airway: no Airway not difficult SIGNATURE: ALINE Walters PATIENT NAME: Lisa Mendez DATE: January 07, 2025 TIME: 8:00 AM CSN: [id number]06-05-2025 NoteHNO ID: [id number] Author: JOSE BLANCO MD Service: Anesthesiology Author Type: Physician Type: Anesthesia Procedure Notes Filed: 01/07/2025 07:52 Note Text: ANESTHESIOLOGY PROCEDURE NOTE Peripheral Nerve Block General Information Procedure Start Time/Medication Administration: 01/07/2025 7:46 AM Procedure End time: 01/07/2025 7:46 AM Patient location during procedure: OR Timeout Performed Pre-procedure: timeout performed Consent Obtained: Yes Patient identity confirmed: arm band Reason for block: post-op pain management/at surgeon's request Staffing Anesthesiologist: Jose Blanco MD Performed by: anesthesiologist Preparation Sterility Preparation: hand hygiene performed prior to procedure, surgical cap used, mask used, skin prep agent completely dried prior to procedure Site Prep: Chloraprep Pre-Procedure Neuro Exam Location: LUE Sensory: intact Motor: intact Procedure Details Patient Position: supine Monitoring: Pulse OX, EKG and NIBP Block Type Upper Extremity: axillary Approach: axillary Laterality: left Injection Technique: single-shot Ultrasound Guided: Yes Image in Chart: Yes Local Infiltration: Yes Needle Needle Type: echogenic Needle Gauge: 21 G Needle Length: 100 mm Assessment Injection assessment: negative aspiration, no paresthesia on injection, incremental injection and local visualized surrounding nerve on ultrasound Post-Procedure Neuro Exam Expected Regional Anesthesia: Yes Medications Administered dexamethasone sodium phosphate injection (DECADRON) - peripheral nerve block 10 mg - 01/07/2025 7:46:00 AM ropivacaine (PF) 5 mg/mL (0.5 %) injection (NAROPIN) - peripheral nerve block 30 mL - 01/07/2025 7:46:00 AM SIGNATURE: Jose Blanco MD PATIENT NAME: Lisa Mendez DATE: January 07, 2025 TIME: 7:51 AM CSN: [id number] Hospital05-21-2025 Evaluation note * Diagnosis Onset Date Resolution Status Admit Date Impaired exercise tolerance acute December 23, 2024 2:27pm Chest pain noneactive December 23, 2024 2:27pm [facility] Work Phone: 1(517) 582-867605-21-2025 Evaluation note* Diagnosis Onset Date Resolution Status Admit Date Impaired exercise tolerance acute December 23, 2024 2:27pm Chest pain noneactive December 23, 2024 2:27pm Abnormal weight gain acute February 16, 2025 8:23am Bipolar 1 disorder acute February 022024 8:23am BMI 40.0-44.9, adult acute February 16, 2025 8:23am Dietary surveillance and counseling acute February 16, 2025 8:23am Exercise counseling acute February 16, 2025 8:23am Gastroparesis acute February 16, 2025 8:23am History of hysterectomy acute 2024 8:23am Hx of cholecystectomy acute Feb 8:23am Kidney stones acute February 16, 2025 8:23am Mixed hyperlipidemia acute February 16, 2025 8:23am Obesity, Class III, 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 (morbid obesity) acute February 16, 2025 8:23am T2DM (type 2 diabetes mellitus) acut e February 16, 2025 8:23am [facility] Work Phone: 1(228) 667-390805-21-2025 Evaluation note* Diagnosis Onset Date Resolution Status Admit Date Impaired exercise tolerance acute December 23, 2024 2:27pm Chest pain noneactive December 23, 2024 2:27pm Abnormal weight gain acute February 16, 2025 8:23am Bipolar 1 disorder acute February 022024 8:23am BMI 40.0-44.9, adult acute February 16, 2025 8:23am Dietary surveillance and counseling acute February 16, 2025 8:23am Exercise counseling acute February 16, 2025 8:23am Gastroparesis acute February 16, 2025 8:23am History of hysterectomy acute 2024 8:23am Hx of cholecystectomy acute Feb 8:23am Kidney stones acute February 16, 2025 8:23am Mixed hyperlipidemia acute February 16, 2025 8:23am Obesity, Class III, 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 (morbid obesity) acute February 16, 2025 8:23am T2DM (type 2 diabetes mellitus) acut e February 16, 2025 8:23am Impaired exercise tolerance acute March 01, 2025 3:28pm Chest pain noneactive March 01 3:28pm [facility] Work Phone: 1(585) 836-817705-20-2025 NoteHNO ID: [id number] Author: PREETHI LANCASTER MD Service: ? Author Type: Physician Type: Progress Notes Filed: 12/22/2024 10:44 Note Text: Patient presents with: Left Knee - New, Knee Pain HPI: Location: Left Knee Duration: had left TKA 4 years ago Intensity 10 /10 Quality sharp The right knee is nonpainful Better or Worse: worse with activity better with rest PAST MEDICAL HISTORY Diagnosis Date H/O abdominal hysterectomy 01/2020 PAST SURGICAL HISTORY Procedure Laterality Date PAST SURGICAL HISTORY OF knee scopes PAST SURGICAL HISTORY OF Bilateral carpal tunnel PAST SURGICAL HISTORY OF Left lumpectomy PAST SURGICAL HISTORY OF Bilateral total knee REMOVAL GALLBLADDER TONSILLECTOMY AND ADENOIDECTOMY TOTAL ABDOM HYSTERECTOMY Current Outpatient Medications Medication Sig Dispense Refill SYMBICORT 160-4.5 mcg/actuation inhaler INHALE 2 PUFFS BY MOUTH 2 TIMES A DAY FOR 30 DAYS carBAMazepine ER (CARBATROL) 300 mg 12 hr capsule 1 capsule. CAPLYTA 21 mg capsule Take 1 capsule by mouth once daily. pregabalin (LYRICA) 150 mg capsule Take 150 mg by mouth once daily. QUEtiapine (SEROQUEL) 25 mg tablet Take 25 mg by mouth daily at bedtime. ipratropium-albuterol (DUONEB) 0.5 mg-3 mg(2.5 mg base)/3 mL nebu Inhale 3 mL as instructed every 6 hours as needed for wheezing/shortness of breath. albuterol (PROVENTIL) 2.5 mg /3 mL (0.083 %) nebulizer solution Use 2.5 mg via nebulizer every 6 hours as needed for wheezing/shortness of breath. VENTOLIN HFA 90 mcg/actuation inhaler Inhale 1 puff as instructed every 6 hours as needed. nabumetone (RELAFEN) 500 mg tablet 500 mg. pramipexole (MIRAPEX) 0.125 mg tablet TAKE 1 [...] 4.25 mg subcutaneously one time a week. carbidopa-levodopa (SINEMET 10-100) 10-100 mg per tablet 1 tablet daily at bedtime. No current facility-administered medications for this visit. No family history on file. ALLERGIES Allergen Reactions Ropinirole Hives Topiramate Hives, Rash, Other: See Comments Aloe Vera Other: See Comments Baclofen Other: See Comments, Swelling Cephalexin GI Upset, Vomiting Ciprofloxacin Other: See Comments Cyclobenzaprine Hives, Unknown Diclofenac Other: See Comments, Unknown Stomach pain and cramping Duloxetine Other: See Comments Fatigue Gabapentin Hives, Unknown, Other: See Comments Menthol Other: See Comments Metformin Hives Morphine GI Upset Naproxen Rash, Unknown Nsaids (Non-Steroid* Hives, Rash, Other: See Comments Oxycodone GI Upset Penicillins Rash Sumatriptan GI Upset, Rash Tramadol GI Upset Vitamin E Rash, Unknown, Other: See Comments Azithromycin Itching, Rash Zonisamide Rash ROS: + for arthritis limp limb pain no fevers chills CP or SOB. PE: General: well developed well nourished appears stated age Resp: nonlabored Abd: nontender (reports hx of gastroparesis) Left Knee: is stable on varus valgus and drawer testing ROM 0 to 105 degrees DF PF EHL intact DP PT 2 + Left knee without effusion warmth or erythema Right Knee: is stable on varus valgus and drawer testing ROM 0 to 105 degrees DF PF EHL intact DP PT 2 + Edema no Effusion no; no warmth or erythema Gait: waddling antalgic to left Mood: euthymic Coordination: normal Imaging: reveals left TKA without mechanical loosening. I have reviewed and interpreted films personally . XR report IMPRESSION: Left total knee arthroplasty without hardware complication. Labs: No results found for: HBA1C CRP Date Value Ref Range Status 10/28/2024 0.5 <0.9 mg/dL Final Outside OP report reviewed: Biomet vanguard 62.5 F, 71 tibia 10 PS poly [address] Buitrago AP: 49 year old sp left TKA with painful prosthesis. CRP is normal ; no palpable effusions or erythema. Revision surgery not indicated I have counseled the patient and discussed the natural history and prognosis of the condition. Consider Repeat XR at year 10 or as needed Orders Placed This Encounter clindamycin (CLEOCIN) 150 mg capsule Sig: Take 4 caps 1 hour prior to dentist Dispense: 12 [facility] of Present illness Narrative* Delroy Merino, DPM - 12/21/2024 10:50 AM EDT Patient: Lisa Mendez : 1975 PCP: Noms Provider MD Viviana SUBJECTIVE This is a 49 y.o. female that presents today for a follow up of right 3rd toe fx of 8 months duration. Patient states she stubbed her toe and has had continued pain to the area has tried anti-inflammatories with positive improvement and minimal to no pain to her right 3rd toe with some swelling anddoes take anti- inflammatories with positive improvement Patient presents today for follow up of capsulitis and synovitis to the left medial tibiotalar joint capsule Currently they rate their pain on a 1-10 scale a 8 States prior treatments of 2nd steroid injection and nsaids with intermittent relief in the past with recent Medrol pack with minimal improvement. States pain is aggrevated with WB. Pt also has hx of left PT tendonitis and has been using [id number] ankle sleeve with improvement. Patient has also been using heat molded inserts with improvement Patient also has right EDL type tendinitis and has taking a steroid pack with positive improvement. Allergies: Allergies Allergen Reactions Penicillins Hives, Itching, Rash and Unknown Other reaction(s): itching Ropinirole Hives Topiramate Hives, Rash and Unknown Aloe Vera Unknown Baclofen Unknown and Swelling Other reaction(s): Other: See Comments Cephalexin GI intolerance, Nausea Only and Unknown Other reaction(s): GI Upset, Vomiting Ciprofloxacin Hcl Unknown Ciprofloxacin-Ciproflox Hcl Er Diclofenac Unknown and Other Stomach pain and cramping Duloxetine Fatigue Menthol Unknown Other reaction(s): Other: See Comments Metformin Hives Morphine Nausea And Vomiting and GI intolerance Naproxen Unknown Sumatriptan Unknown Tramadol Unknown Azithromycin Itching, Rash and Unknown Cyclobenzaprine Hives, Unknown and Rash Other reaction(s): rash, itching, Unknown, Unknown Gabapentin Hives, Rash and Unknown Other reaction(s): Other: See Comments, Unknown Ibuprofen Rash Nsaids Hives, Unknown and Rash Tizanidine Rash Zonisamide Rash Past Medical History: Past Medical History: Diagnosis Date Allergies Anxiety Arthritis Asthma Back pain 06/17/2017 Backache 04/05/2015 Bipolar 1 disorder ([facility]) Bronchitis Chicken pox Chronic back pain DDD (degenerative disc disease), lumbar 06/17/2017 Depression ([facility]) Diabetes mellitus ([facility]) Disturbance of skin sensation 04/05/2015 Insomnia 01/06/2018 Kidney stone Lumbar radiculopathy 01/06/2018 Lumbar spondylosis 01/06/2018 Measles Migraine Muscle weakness 04/05/2015 Overactive bladder Pain in limb 03/04/2015 Pneumonia Radicular pain 03/21/2018 Radiculopathy 03/04/2015 Restless legs syndrome Scarlet fever Tonsillitis Medications: Current Outpatient Medications: Alcohol Swabs (B-D SINGLE USE SWABS REGULAR) pads, USE SWAB EXTERNALLY DIRECTED 4 TIMES DAILY, Disp: , Rfl: Caplyta 10.5 MG capsule, Take 1 capsule by mouth Daily, Disp: , Rfl: carBAMazepine (TEGretol) 200 MG tablet, Take 200 mg by mouth in the morning and 200 mg before bedtime., Disp: , Rfl: carbidopa-levodopa (Sinemet) 25-100 MG tablet, Take 1 tablet by mouth in the morning and 1 tablet before bedtime., Disp: , Rfl: cholecalciferol 1.25 MG (16056 UT) capsule, Take 50,000 Units by mouth 1 (one) time per week, Disp:, Rfl: Continuous Blood Gluc Program Director/Music Director (Dexcom G7 Program Director/Music Director) device, USE DIRECTED, Disp: , Rfl: Continuous Blood Gluc Sensor (Dexcom G7 Sensor) misc, USE DIRECTED, Disp: , Rfl: cyanocobalamin (Vitamin B-12) 1000 MCG tablet, Take 1,000 mcg by mouth in the morning., Disp: , Rfl: glipiZIDE (Glucotrol) 5 MG tablet, 1 (one) time each day at the same time., Disp: , Rfl: methylPREDNISolone (Medrol Dospak) 4 MG tablets, Follow schedule on MEDROL PACK package instructions to be used as directed, Disp: 21 tablet, Rfl: 0 nabumetone (Relafen) 500 MG tablet, Take 500 mg by mouth 2 (two) times a day as needed (Patient nottaking: Reported on 11/21/2024), Disp: , Rfl: pantoprazole (ProtoNix) 40 MG EC tablet, Take 40 mg by mouth Daily (Patient not taking: Reported on11/21/2024), Disp: , Rfl: potassium chloride CR (Klor-Con M20) 20 MEQ ER tablet, Take 1 tablet by mouth in the morning. (Patient not taking: Reported on 11/21/2024), Disp: , Rfl: pramipexole (Mirapex) 0.125 MG tablet, Take 1 tablet (0.125 mg) by mouth in the morning and 1 tablet (0.125 mg) before bedtime. (Patient not taking: Reported on 11/21/2024), Disp: 60 tablet, Rfl: 1 pregabalin (Lyrica) 100 MG capsule, Take 100 mg by mouth in the morning and 100 mg before bedtime.,Disp: , Rfl: QUEtiapine (SEROquel) 25 MG tablet, Take 25 mg by mouth at bedtime, Disp: , Rfl: Rimegepant Sulfate (Nurtec) 75 MG tablet dispersible, TAKE 1 TABLET BY MOUTH AT THE ONSET OF MIGRAINE Take no more than 1 dose in 48 hrs. (Patient not taking: Reported on 11/21/2024), Disp: 8 tablet, Rfl: 2 Trulicity 3 MG/0.5ML solution pen-injector, Administer the contents of one prefilled pen subcutaneously once weekly as directed, Disp: , Rfl: Social History: Social History Socioeconomic History Marital status: Spouse name: Not on file Number of children: Not on file Years of education: Not on file Highest education level: Not on file Occupational History Not on file Tobacco Use Smoking status: Former Types: Cigarettes Smokeless tobacco: Never Vaping Use Vaping status: Never Used Substance and Sexual Activity Alcohol use: Yes Comment: caffeine 1-2 cups per day; soda Drug use: Defer Sexual activity: Defer Other Topics Concern Not on file Social History Narrative Exercise: occasional Social Drivers of Health Financial Resource Strain: Not on file Food Insecurity: Food Insecurity Present (03/08/2023) Received from [facility] Hunger Screening Within the past 12 months we worried whether our food would run out before we got money to buy more.: Sometimes True Within the past 12 months the food we bought just didn't last and we didn't have money to get more.: Sometimes True Transportation Needs: Not on file Physical Activity: Not on file Stress: Not on file Social Connections: Not on file Intimate Partner Violence: Not At Risk (06/04/2023) Received from [facility] Humiliation, Afraid, Rape, and Kick questionnaire Fear of Current or Ex-Partner: No Emotionally Abused: No Physically Abused: No Sexually Abused: No Housing Stability: Not on file ROS: Gastrointestinal: denies abdominal pain, ulcers, or changes in appetite or bowel habits with OTC nsaids Musculoskeletal: Positive generalized arthritis to joints and denies loss of strength. Positive history of back issues as well as total knee replacement Cardiovascular: denies CP, palpitations, irregular rhythms OBJECTIVE LE EXAM: DERM: Positive hair growth to b/l feet with good skin turgor noted. Negative openings in skin. VASC: Palpable pedal pulsed b/l with warm to cool tibia to toes b/l NEURO: Gross sensation intact digits 1-10 and b/l feet ORTHO: +5/5 DF/PF/IN/EV right, +5/5 DF/PF/IN/EV left. 20 degrees inversion and 10 degrees eversion STJ b/l. Ankle ROM less than 10 degrees b/l. Minimal pain on palpation to right 3rd PIPJ and proximal phalanx diminished pain on palpation left PT tendon near medial malleolar and distally positive pain on palpation to medial aspect of the left ankle gutter and capsule positive pain on palpation to medial and lateral aspect of the right tibiotalar joint positive pain on palpation to right EDL tendon complex ASSESSMENT 1. Capsulitis of metatarsophalangeal (MTP) joint of right foot 2. Posterior tibial tendinitis of left leg 3. Other specified disorders of synovium, left ankle and foot PLAN Patient to continue with oral anti - inflammatories as needed for pain and recommended OTC medications such as tylenol or Ibuprofen Continue with inserts/ heat molded Continue with brace to ankle Patient may use walking boot that she has at home to her right foot Recommended to apply ice to affected areas for 20 minutes, twice daily. Ice should not be applied directly to skin. Order MRI to the right ankle Delroy Merino DPM documented in this encounterSaint [facility]ius [id number] History and physical note * Tk Garrett PA-C - 12/16/2024 10:20 AM EDT Images from the original note were not included. [facility] HISTORY AND PHYSICAL EXAMINATION SERVICE DATE: 12/16/2024 SERVICE TIME: 10:15 AM Patient has been identified by name and date of : Yes Reason for contact: PACC visit Accompanied by: Self This is a virtual visit using [employer] Video Visit. It required patient- provider interaction for the medical decision making as documented below. I have communicated my name and active licensure. The patient's identity and physical location wereverified at the time of this visit. Either the patient or their legal sales and service representative has been informed of the risks and benefits of and alternatives to treatment through a remote evaluation and consents to proceed with the evaluation remotely. PRIMARY CARE PHYSICIAN: Brigida Nobles CNP REASON FOR VISIT: Lisa Mendez is a 49 year old female who is scheduled for Left - ARTHROPLASTY CARPOMETACARPAL JOINTS Left - INCISION EXTENSOR TENDON SHEATH WRIST Left - TRANSFER TENDON, CARPOMETACARPAL OR DORSUM HAND; W/O FREE GRAFT, EACH Left - METACARPAL PHALANGEAL PINNING at the request of Dr. Kwame Mcneil for consultation. My final recommendation will be communicated back to the requesting physician by way of shared medical record or letter. Assessment Patient has the following medical conditions which may affect man-operative course: 1. Pre-op evaluation (Primary) Surgery scheduled for 01/07/2025 Patient is scheduled today to have all her teeth extracted. If she has no complications and healingwell she is ok to proceed. Patient was advised to contact her surgeon if she has complications. 2. Morbid obesity (HCC) Body mass index is 41.45 kg/m . Encouraged lifestyle modifications. patients weight is mostly lower half 3. Other migraine without status migrainosus, not intractable Chronic and stable and compliant with medications ` 4. Uncomplicated asthma, unspecified asthma severity, unspecified whether persistent (HCC) Chronic and stable continue medications Triggered by increased activities Last required albuterol 1 week ago Denies SOB or wheezing 5. Current smoker vapes daily - nicotine, THS, and CBD Patient was advised to abstain for 7 days prior to surgery 6. Sleep apnea, unspecified type not compliant with machine 7. Type 2 diabetes mellitus without retinopathy (HCC) Reports compliant with medication . Patient reports fasting glucose 130's. Continue medications. Encouraged lifestyle modifications. Preoperative Instructions for Patient's with Diabetes Mellitus/ Prediabetes Oral Medication Instructions: DO NOT TAKE THE MORNING OF SURGERY: Glucotrol/Glipizide Injectable Medication Instructions: please HOLD 7 DAYS PRIOR TO SURGERY: patient currently does not have the medication but asking for a refill. Last dose was 12/07/2024 Dulaglutide (Trulicity) skip 12/28 and 6/2 dose 8. Bipolar 1 disorder (HCC) Chronic and stable and compliant with medications 9. Posttraumatic stress disorder triggered by stress, ok in medical facilities 10. Marijuana use Marijuana use: Yes: Concentrate- Inhalation daily Patient advised to not use starting ideally 1 week prior to surgery, but minimally 3 days prior to surgery, and not to use DOS. ANESTHESIA FINDINGS: Intubation History: No history of difficult intubation. No abnormal airway history Significant Anesthesia Considerations: none Airway History: No history of difficult airway No abnormal airway history Gibbs Activity Status Index: METS: Walk indoors, such as around the house (1.75 METs) Do light work around the house, such as dusting or washing dishes (2.70 METs) Take care of self; that is eating, dressing, bathing, using the toilet (2.75 METs) Walk a block or two on level ground (2.75 METs) Do moderate work around the house, such as vacuuming, sweeping floors, or carrying in groceries (3.50 METs) DASI Score: 13.45 Patient denies any chest pain or undue shortness of breath with the above physical activity. Clinical Frailty Scale: 3. Well, with treated comorbid disease STOP-Bang Score: STOP-Bang Score: (Positive for NATALY and not compliant with machine) I - PHYSICAL EVALUATION AIRWAY Patient intubated: No. Tracheostomy tube not present Mallampati: II. TM distance: >3 FB. Neck ROM: full ROM without neurological symptoms. Mouth opening: adequate. Short neck: no. Thick neck: no Lip Bite Test: I Microretrognathia/Micronagthia/Recessed Chin: No DENTAL Additional comments: many missing, one infected . II - ANESTHESIA PLAN Beta Torri Monitoring Plan Post Procedure Analgesic Plan Prepared for surgery: This patient is optimally prepared for surgery pending healing from tooth extraction scheduled today CONSULTS: The following consults have been initiated at this time: Anesthesia - review if patient ok to proceed at [facility], obesity and untreated NATALY EMail sent to Dr Vaughn. Discussed with Dr Vaughn, ok to proceed, no labs recommended. The Following Tests/Procedures Have Been Initiated: Labs not indicated per [facility] protocol, EKG not indicated per [facility] protocol Planned Anesthetic: Per anesthesia choice Subjective CHIEF COMPLAINT: H/O thumb surgery [Z98.890] Primary osteoarthritis of first carpometacarpal joint of left hand [M18.12] De Quervain's tenosynovitis [M65.4] HPI: This is a 49 year old female who presents with left thumb and wrist pain for years. s/p previous left wrist surgery 10/2022. Completed comprehensive course of conservative treatment. Recommended for above surgery. REVIEW OF SYSTEMS: positive findings are BOLD PAIN ASSESSMENT: General: No weight loss, malaise or fevers. Neuro: RLS Negative for TIA's Seizures Parkinson's Disease Multiple Sclerosis Respiratory: asthma Negative for Bronchitis, COPD, Pneumonia within 6 weeks (date), URI < 2 weeks Negative for cough, wheezing or shortness of breath. Negative for hemoptysis. Negative for sleep apnea. Cardiovascular: No history of HTN requiring medication, no history of angina, CHF, CA, cardiac surgery or stents. Denies rest pain, gangrene or revascularization/amputation for PVD. No history of cardiovascular symptoms or problems. GI: No history of GI symptoms or problems. No history of esophageal varices, recent ascites, or ETOH greater than 2 drinks per day. : No history of dysuria, frequency or incontinence,, stones or chronic kidney disease Endocrine: DM . Negative for polyuria, polydipsia, heat or cold intolerance. Negative for goiter. Denies thyroid disease. Hematology: No history of bleeding or clotting disorder. Pt is not taking anti- coagulation or platelet medications. No history of hematological symptoms or problems. Oncology: No history of CA metastasis, chemo within 30 days, or radiotherapy within 90 days. Has not lost 10% of body wt in 6 months. No history of oncological symptoms or problems. Psych: Anxiety, Depression, Bipolar disorder, PSTD Marijuana use: Yes: Concentrate- Inhalation daily Musculoskeletal: See HPI Skin: Negative for lesions, rash and itching. Implanted Devices: No PAST MEDICAL HISTORY Diagnosis Date H/O abdominal hysterectomy 01/2020 PAST SURGICAL HISTORY Procedure Laterality Date PAST SURGICAL HISTORY OF knee scopes PAST SURGICAL HISTORY OF Bilateral carpal tunnel PAST SURGICAL HISTORY OF Left lumpectomy PAST SURGICAL HISTORY OF Bilateral total knee REMOVAL GALLBLADDER TONSILLECTOMY & ADENOIDECTOMY TOTAL ABDOM HYSTERECTOMY History reviewed. No pertinent family history. SOCIAL HISTORY: Social History Tobacco Use Smoking status: Every Day Smokeless tobacco: Never Tobacco comments: vapes nicotine Vaping Use Vaping status: current everyday user Substances: Nicotine, THC, CBD, Flavoring Devices: Pre-filled or refillable cartridge Substance Use Topics Alcohol use: Yes Comment: rare/occ Drug use: Yes Types: Marijuana Prior to Admission medications as of 12/16/24 1014 Medication Sig Last Dose Taking SYMBICORT 160-4.5 mcg/actuation inhaler INHALE 2 PUFFS BY MOUTH 2 TIMES A DAY FOR 30 DAYS Yes carBAMazepine ER (CARBATROL) 300 mg 12 hr capsule 1 capsule. Yes CAPLYTA 21 mg capsule Take 1 capsule by mouth once daily. Yes pregabalin (LYRICA) 150 mg capsule Take 150 mg by mouth once daily. Yes QUEtiapine (SEROQUEL) 25 mg tablet Take 25 mg by mouth daily at bedtime. Yes ipratropium-albuterol (DUONEB) 0.5 mg-3 mg(2.5 mg base)/3 mL nebu Inhale 3 mL as instructed every 6hours as needed for wheezing/shortness of breath. Yes albuterol (PROVENTIL) 2.5 mg /3 mL (0.083 %) nebulizer solution Use 2.5 mg via nebulizer every 6 hours as needed for wheezing/shortness of breath. Yes VENTOLIN HFA 90 mcg/actuation inhaler Inhale 1 puff as instructed every 6 hours as needed. Yes nabumetone (RELAFEN) 500 mg tablet 500 mg. Yes pramipexole (MIRAPEX) 0.125 mg tablet TAKE 1 TABLET BY MOUTH 2 TO 3 HOURS BEFORE BEDTIME Yes cholecalciferol, Vitamin D3, (VITAMIN D3) 1,250 mcg (50,000 unit) cap capsule Take 1 capsule by mouth one time a week. Yes cyanocobalamin (VITAMIN B-12) 1,000 mcg tab Take 1,000 mcg by mouth once daily. Yes rimegepant sulfate (NURTEC ODT ORAL) Take 75 mg by mouth. Yes glipiZIDE (GLUCOTROL) 5 mg tablet Take 5 mg by mouth daily before breakfast. Yes dulaglutide (TRULICITY) 4.5 mg/0.5 mL pen injector Inject 4.25 mg subcutaneously one time a week. Yes carbidopa-levodopa (SINEMET 10-100) 10-100 mg per tablet 1 tablet daily at bedtime. Yes No medication comments found. ALLERGIES Allergen Reactions Ropinirole Hives Topiramate Hives, Rash, Other: See Comments Aloe Vera Other: See Comments Baclofen Other: See Comments, Swelling Cephalexin GI Upset, Vomiting Ciprofloxacin Other: See Comments Cyclobenzaprine Hives, Unknown Diclofenac Other: See Comments, Unknown Stomach pain and cramping Duloxetine Other: See Comments Fatigue Gabapentin Hives, Unknown, Other: See Comments Menthol Other: See Comments Metformin Hives Morphine GI Upset Naproxen Rash, Unknown Nsaids (Non-Steroid* Hives, Rash, Other: See Comments Oxycodone GI Upset Penicillins Rash Sumatriptan GI Upset, Rash Tramadol GI Upset Vitamin E Rash, Unknown, Other: See Comments Azithromycin Itching, Rash Zonisamide Rash Covid Immunization Dates Current Care Gaps Covid-19 Vaccine (2023- season) Overdue since 04/05/2024 04/19/2021 Imm Admin: COVID-19 original vaccine, age 12+ yr, monovalent (PFIZER- BIONTECH - PURPLE TOP) 03/29/2021 Imm Admin: COVID-19 original vaccine, age 12+ yr, monovalent (PFIZER- BIONTECH - PURPLE TOP) Objective PHYSICAL EXAM: VITALS: Resp 18 Ht 5' 3 (1.60m) Wt 234 lb (106.1kg) BMI 41.46 kg/(m^2). VIDEO EXAM: (if completed, performed via video enabled technology) GENERAL: alert and appropriate, in no distress, well-hydrated, well nourished, happy, smiling, interactive, and overweight SKIN: no rash noted NECK: no self-reported cervical adenopathy RESPIRATORY: breathing non-labored CHEST: equal chest rise with normal respiratory effort HEART: patient was unable to palpate her pulse, she does have good capillary refill, and no cyanosis NEUROLOGIC: no facial droop, speech is clear and fluent and no obvious deficit Diagnostic tests reviewed for today's visit: Lab Value Units Date High Low HB No results within date range. HCT No results within date range. WBC No results within date range. PLT No results within date range. NA No results within date range. K No results within date range. GLUC No results within date range. BUN No results within date range. CREAT No results within date range. PTSEC No results within date range. INR No results within date range. APTT No results within date range. ALT No results within date range. AST No results within date range. TBILI No results within date range. TSH No results within date range. Lab Value Units Date High Low HCGQT No results within date range. UHCG No results within date range. HCG, BODY* No results within date range. Lab Value Units Date High Low ABORHD No results within date range. ABSCREEN No results within date range. No results found for: HBA1C Instructions Given to Patient: Patient given verbal instructions and voices comprehension and compliance. Copy sent electronically via My Chart. SIGNATURE: Tk Garrett PA-C PATIENT NAME: Lisa Mendez DATE: 12/16/2024 TIME: 10:15 AM [facility]05-14-2025 History and physical note* Tk Garrett PA-C - 12/16/2024 10:20 AM EDT Images from the original note were not included. [facility] HISTORY AND PHYSICAL EXAMINATION SERVICE DATE: 12/16/2024 SERVICE TIME: 10:15 AM Patient has been identified by name and date of : Yes Reason for contact: PACC visit Accompanied by: Self This is a virtual visit using [employer] Video Visit. It required patient- provider interaction for the medical decision making as documented below. I have communicated my name and active licensure. The patient's identity and physical location wereverified at the time of this visit. Either the patient or their legal sales and service representative has been informed of the risks and benefits of and alternatives to treatment through a remote evaluation and consents to proceed with the evaluation remotely. PRIMARY CARE PHYSICIAN: Brigida Nobles CNP REASON FOR VISIT: Lisa Mendez is a 49 year old female who is scheduled for Left - ARTHROPLASTY CARPOMETACARPAL JOINTS Left - INCISION EXTENSOR TENDON SHEATH WRIST Left - TRANSFER TENDON, CARPOMETACARPAL OR DORSUM HAND; W/O FREE GRAFT, EACH Left - METACARPAL PHALANGEAL PINNING at the request of Dr. Kwame Mcneil for consultation. My final recommendation will be communicated back to the requesting physician by way of shared medical record or letter. Assessment Patient has the following medical conditions which may affect man-operative course: 1. Pre-op evaluation (Primary) Surgery scheduled for 01/07/2025 Patient is scheduled today to have all her teeth extracted. If she has no complications and healingwell she is ok to proceed. Patient was advised to contact her surgeon if she has complications. 2. Morbid obesity (HCC) Body mass index is 41.45 kg/m . Encouraged lifestyle modifications. patients weight is mostly lower half 3. Other migraine without status migrainosus, not intractable Chronic and stable and compliant with medications ` 4. Uncomplicated asthma, unspecified asthma severity, unspecified whether persistent (HCC) Chronic and stable continue medications Triggered by increased activities Last required albuterol 1 week ago Denies SOB or wheezing 5. Current smoker vapes daily - nicotine, THS, and CBD Patient was advised to abstain for 7 days prior to surgery 6. Sleep apnea, unspecified type not compliant with machine 7. Type 2 diabetes mellitus without retinopathy (HCC) Reports compliant with medication . Patient reports fasting glucose 130's. Continue medications. Encouraged lifestyle modifications. Preoperative Instructions for Patient's with Diabetes Mellitus/ Prediabetes Oral Medication Instructions: DO NOT TAKE THE MORNING OF SURGERY: Glucotrol/Glipizide Injectable Medication Instructions: please HOLD 7 DAYS PRIOR TO SURGERY: patient currently does not have the medication but asking for a refill. Last dose was 12/07/2024 Dulaglutide (Trulicity) skip 12/28 and 01/04 dose 8. Bipolar 1 disorder (HCC) Chronic and stable and compliant with medications 9. Posttraumatic stress disorder triggered by stress, ok in medical facilities 10. Marijuana use Marijuana use: Yes: Concentrate- Inhalation daily Patient advised to not use starting ideally 1 week prior to surgery, but minimally 3 days prior to surgery, and not to use DOS. ANESTHESIA FINDINGS: Intubation History: No history of difficult intubation. No abnormal airway history Significant Anesthesia Considerations: none Airway History: No history of difficult airway No abnormal airway history Gibbs Activity Status Index: METS: Walk indoors, such as around the house (1.75 METs) Do light work around the house, such as dusting or washing dishes (2.70 METs) Take care of self; that is eating, dressing, bathing, using the toilet (2.75 METs) Walk a block or two on level ground (2.75 METs) Do moderate work around the house, such as vacuuming, sweeping floors, or carrying in groceries (3.50 METs) DASI Score: 13.45 Patient denies any chest pain or undue shortness of breath with the above physical activity. Clinical Frailty Scale: 3. Well, with treated comorbid disease STOP-Bang Score: STOP-Bang Score: (Positive for NATALY and not compliant with machine) I - PHYSICAL EVALUATION AIRWAY Patient intubated: No. Tracheostomy tube not present Mallampati: II. TM distance: >3 FB. Neck ROM: full ROM without neurological symptoms. Mouth opening: adequate. Short neck: no. Thick neck: no Lip Bite Test: I Microretrognathia/Micronagthia/Recessed Chin: No DENTAL Additional comments: many missing, one infected . II - ANESTHESIA PLAN Beta Torri Monitoring Plan Post Procedure Analgesic Plan Prepared for surgery: This patient is optimally prepared for surgery pending healing from tooth extraction scheduled today CONSULTS: The following consults have been initiated at this time: Anesthesia - review if patient ok to proceed at [facility], obesity and untreated NATALY EMail sent to Dr Vaughn. Discussed with Dr Vaughn, ok to proceed, no labs recommended. The Following Tests/Procedures Have Been Initiated: Labs not indicated per [facility] protocol, EKG not indicated per [facility] protocol Planned Anesthetic: Per anesthesia choice Subjective CHIEF COMPLAINT: H/O thumb surgery [Z98.890] Primary osteoarthritis of first carpometacarpal joint of left hand [M18.12] De Quervain's tenosynovitis [M65.4] HPI: This is a 49 year old female who presents with left thumb and wrist pain for years. s/p previous left wrist surgery 10/2022. Completed comprehensive course of conservative treatment. Recommended for above surgery. REVIEW OF SYSTEMS: positive findings are BOLD PAIN ASSESSMENT: General: No weight loss, malaise or fevers. Neuro: RLS Negative for TIA's Seizures Parkinson's Disease Multiple Sclerosis Respiratory: asthma Negative for Bronchitis, COPD, Pneumonia within 6 weeks (date), URI < 2 weeks Negative for cough, wheezing or shortness of breath. Negative for hemoptysis. Negative for sleep apnea. Cardiovascular: No history of HTN requiring medication, no history of angina, CHF, CA, cardiac surgery or stents. Denies rest pain, gangrene or revascularization/amputation for PVD. No history of cardiovascular symptoms or problems. GI: No history of GI symptoms or problems. No history of esophageal varices, recent ascites, or ETOH greater than 2 drinks per day. : No history of dysuria, frequency or incontinence,, stones or chronic kidney disease Endocrine: DM . Negative for polyuria, polydipsia, heat or cold intolerance. Negative for goiter. Denies thyroid disease. Hematology: No history of bleeding or clotting disorder. Pt is not taking anti- coagulation or platelet medications. No history of hematological symptoms or problems. Oncology: No history of CA metastasis, chemo within 30 days, or radiotherapy within 90 days. Has not lost 10% of body wt in 6 months. No history of oncological symptoms or problems. Psych: Anxiety, Depression, Bipolar disorder, PSTD Marijuana use: Yes: Concentrate- Inhalation daily Musculoskeletal: See HPI Skin: Negative for lesions, rash and itching. Implanted Devices: No PAST MEDICAL HISTORY Diagnosis Date H/O abdominal hysterectomy 01/2020 PAST SURGICAL HISTORY Procedure Laterality Date PAST SURGICAL HISTORY OF knee scopes PAST SURGICAL HISTORY OF Bilateral carpal tunnel PAST SURGICAL HISTORY OF Left lumpectomy PAST SURGICAL HISTORY OF Bilateral total knee REMOVAL GALLBLADDER TONSILLECTOMY & ADENOIDECTOMY <AGE 13 TOTAL ABDOM HYSTERECTOMY History reviewed. No pertinent family history. SOCIAL HISTORY: Social History Tobacco Use Smoking status: Every Day Smokeless tobacco: Never Tobacco comments: vapes nicotine Vaping Use Vaping status: current everyday user Substances: Nicotine, THC, CBD, Flavoring Devices: Pre-filled or refillable cartridge Substance Use Topics Alcohol use: Yes Comment: rare/occ Drug use: Yes Types: Marijuana Prior to Admission medications as of 12/16/24 1014 Medication Sig Last Dose Taking SYMBICORT 160-4.5 mcg/actuation inhaler INHALE 2 PUFFS BY MOUTH 2 TIMES A DAY FOR 30 DAYS Yes carBAMazepine ER (CARBATROL) 300 mg 12 hr capsule 1 capsule. Yes CAPLYTA 21 mg capsule Take 1 capsule by mouth once daily. Yes pregabalin (LYRICA) 150 mg capsule Take 150 mg by mouth once daily. Yes QUEtiapine (SEROQUEL) 25 mg tablet Take 25 mg by mouth daily at bedtime. Yes ipratropium-albuterol (DUONEB) 0.5 mg-3 mg(2.5 mg base)/3 mL nebu Inhale 3 mL as instructed every 6hours as needed for wheezing/shortness of breath. Yes albuterol (PROVENTIL) 2.5 mg /3 mL (0.083 %) nebulizer solution Use 2.5 mg via nebulizer every 6 hours as needed for wheezing/shortness of breath. Yes VENTOLIN HFA 90 mcg/actuation inhaler Inhale 1 puff as instructed every 6 hours as needed. Yes nabumetone (RELAFEN) 500 mg tablet 500 mg. Yes pramipexole (MIRAPEX) 0.125 mg tablet TAKE 1 TABLET BY MOUTH 2 TO 3 HOURS BEFORE BEDTIME Yes cholecalciferol, Vitamin D3, (VITAMIN D3) 1,250 mcg (50,000 unit) cap capsule Take 1 capsule by mouth one time a week. Yes cyanocobalamin (VITAMIN B-12) 1,000 mcg tab Take 1,000 mcg by mouth once daily. Yes rimegepant sulfate (NURTEC ODT ORAL) Take 75 mg by mouth. Yes glipiZIDE (GLUCOTROL) 5 mg tablet Take 5 mg by mouth daily before breakfast. Yes dulaglutide (TRULICITY) 4.5 mg/0.5 mL pen injector Inject 4.25 mg subcutaneously one time a week. Yes carbidopa-levodopa (SINEMET 10-100) 10-100 mg per tablet 1 tablet daily at bedtime. Yes No medication comments found. ALLERGIES Allergen Reactions Ropinirole Hives Topiramate Hives, Rash, Other: See Comments Aloe Vera Other: See Comments Baclofen Other: See Comments, Swelling Cephalexin GI Upset, Vomiting Ciprofloxacin Other: See Comments Cyclobenzaprine Hives, Unknown Diclofenac Other: See Comments, Unknown Stomach pain and cramping Duloxetine Other: See Comments Fatigue Gabapentin Hives, Unknown, Other: See Comments Menthol Other: See Comments Metformin Hives Morphine GI Upset Naproxen Rash, Unknown Nsaids (Non-Steroid* Hives, Rash, Other: See Comments Oxycodone GI Upset Penicillins Rash Sumatriptan GI Upset, Rash Tramadol GI Upset Vitamin E Rash, Unknown, Other: See Comments Azithromycin Itching, Rash Zonisamide Rash Covid Immunization Dates Current Care Gaps Covid-19 Vaccine ( season) Overdue since 04/05/2024 04/19/2021 Imm Admin: COVID-19 original vaccine, age 12+ yr, monovalent ([employer] - PURPLE TOP) 03/29/2021 Imm Admin: COVID-19 original vaccine, age 12+ yr, monovalent ([employer] Software - PURPLE TOP) Objective PHYSICAL EXAM: VITALS: Resp 18 Ht 5' 3 (1.60m) Wt 234 lb (106.1kg) BMI 41.46 kg/(m^2). VIDEO EXAM: (if completed, performed via video enabled technology) GENERAL: alert and appropriate, in no distress, well-hydrated, well nourished, happy, smiling, interactive, and overweight SKIN: no rash noted NECK: no self-reported cervical adenopathy RESPIRATORY: breathing non-labored CHEST: equal chest rise with normal respiratory effort HEART: patient was unable to palpate her pulse, she does have good capillary refill, and no cyanosis NEUROLOGIC: no facial droop, speech is clear and fluent and no obvious deficit Diagnostic tests reviewed for today's visit: Lab Value Units Date High Low HB No results within date range. HCT No results within date range. WBC No results within date range. PLT No results within date range. NA No results within date range. K No results within date range. GLUC No results within date range. BUN No results within date range. CREAT No results within date range. PTSEC No results within date range. INR No results within date range. APTT No results within date range. ALT No results within date range. AST No results within date range. TBILI No results within date range. TSH No results within date range. Lab Value Units Date High Low HCGQT No results within date range. UHCG No results within date range. HCG, BODY* No results within date range. Lab Value Units Date High Low ABORHD No results within date range. ABSCREEN No results within date range. No results found for: HBA1C Instructions Given to Patient: Patient given verbal instructions and voices comprehension and compliance. Copy sent electronically via My Chart. SIGNATURE: Tk Garrett PA-C PATIENT NAME: Lisa Mendez DATE: 12/16/2024 TIME: 10:15 AM documented in this encounterThe [facility]05-[facility] Instructions* Patient Instructions* Tk Garrett PA-C - 12/15/2024 12:17 PM EDT Images from the original note were not included. [facility] PATIENT PREOPERATIVE INSTRUCTIONS Kwame Mcneil MD has scheduled you for your procedure at this surgery center: [facility]: [phone] --[address] [place] [address]. Arrival Time for Surgery: - The Surgery Center or hospital where you are having surgery will call the afternoon before surgery (or Saturday for Saturday surgery) with a scheduled arrival time. - If you have not heard by 4 pm, please contact the surgery center above. Please be aware that emergency situations arise, which may delay or change your surgical time. If this happens, we will notify you as soon as possible and regret any inconvenience. Please read below carefully for your personalized instructions. Dietary Restrictions: - No solid food after midnight. - You may have 12 ounces of clear liquids (water, clear juices such as apple juice or gatorade, carbonated beverages, clear tea, black coffee, jello) until 2 hours before scheduled arrival at facility. - Do not drink any alcohol after midnight the night before your surgery. - No Milk/Dairy - No Pulp Juices Medications: - If you are prescribed inhalers for breathing, continue using them. Stay on all of your medications until your surgery, Unless instructed differently below. Approved medications to take the morning of surgery with a sip of water: caplyta Carbamazepine (Tegretol) Is Patient Diabetic:Yes Preoperative Instructions for Patient's with Diabetes Mellitus/ Prediabetes Oral Medication Instructions: DO NOT TAKE THE MORNING OF SURGERY: Glucotrol/Glipizide Injectable Medication Instructions: please HOLD 7 DAYS PRIOR TO SURGERY: Dulaglutide (Trulicity) skip 12/28 and 01/04 dose If you start any new medications after today's visit, please contact the surgeon's office. If you are currently using a [id number] injectable or oral medication for diabetes or weight loss such as Dulaglutide (Trulicity), Exenatide (Byetta, Bydureon), Liraglutide (Victoza, Saxenda), Semaglutide (Ozempic, Wegovy, Rybelsus), or Tirzepatide (Mounjaro), the medicine should be stopped at least 7 days before surgery. These medicines can cause food to remain in your stomach for a very longtime and increase the risks from surgery and anesthesia. Not stopping the medication for a long enough time may result in your surgery being rescheduled. Blood Thinning Medications: - HOLD NSAIDS (Ibuprofen, Advil, Aleve, Motrin, Celebrex, Mobic, etc.) 7 days before surgery, as directed by your surgeon. - HOLD Aspirin 7 days before surgery, as directed by your surgeon. - HOLD herbals and supplements 7 days before surgery. - You may take Tylenol (Acetaminophen) or any of your pain medications that do not contain aspirin or NSAIDS as needed. Important Reminders: - If you use CPAP/BIPAP and will be staying overnight, bring the machine with you to the surgery center. - Candy, mints, and tobacco products are NOT permitted the morning of surgery. - Hearing aids and glasses may be worn the morning of surgery. - NO jewelry, body piercings, makeup, hairpins or contacts are to be worn the day of surgery. - You may wear your partials/dentures, but you may be asked to remove them prior to you're procedure If you develop symptoms such as a fever, cold, or flu, or have other changes to your health within TWO DAYS of scheduled surgery or the morning of surgery, please contact the surgery center above. Personal Belongings: -Please have photo ID and insurance cards. -If you do not have a copy of advance directives on file with us, please bring a copy with you on the day of surgery. - Leave ALL valuables and money at home or with family members. For Outpatient Procedures: - YOU MUST HAVE A RESPONSIBLE TOPOGRAPHY TECHNICIAN TAKE YOU HOME. A FORMULA WEIGHER OR CUSTOMS INSPECTOR CANNOT BE MADE A RESPONSIBLE TOPOGRAPHY TECHNICIAN. - We recommend that a responsible person stays with you overnight to take care of you. - You cannot stay in a hotel alone after outpatient surgery. You will not be permitted to have yoursurgery, if you do not have someone to take care of you. After surgery resume all medications, unless instructed differently by surgical team/discharge instructions. If you already have an Advance Directive, please fax a copy to [phone] or email to for it to be added to your chart. If you do not have an Advance Directive, you can find the appropriate form and more information at [email or web address]. We recommend that youcomplete the Advance Directive form found on the website and bring it with you the day of your surgery. It can be witnessed and scanned into your chart that day. Tk Garrett PA-C documented in this encounterThe [facility]04-29-2025 Telephone encounter Note * Telephone Encounter - Nya Ellsworth - 12/01/2024 2:16 PM EDT Type of form: FMLA Form received via walk in When form is completed, Form has been forwarded to Physician Mailbox: Dr. Tarun Ellsworth [facility]04-29-2025 Miscellaneous Notes* Telephone Encounter - Nya Ellsworth - 12/01/2024 2:16 PM EDT Type of form: FMLA Form received via walk in When form is completed, Form has been forwarded to Physician Mailbox: Dr. Tarun Ellsworth documented in this encounterThe [facility]04-19-2025 History of Present illness Narrative* RYLEY Britton - 11/21/2024 2:55 PM EDT Images from the original note were not included. HPI: Historian of HPI: patient Lisa Mendez is a 49 y.o. female who presents today to the Urgent Care with the following complaints and denials due to tooth problems which has been present for 1 week(s) C/O Denies Symptom Comments [x] [] Tooth pain Bottom left side [] [x] Gum swelling [] [x] Gum tenderness [] [x] discharge [] [x] Difficulty chewing [x] [] Difficulty drinking liquids hot liquids cold liquids [x] [] Dental visit in past 12 months Additional Comments: pt has taken Tylenol OTC medication without relief Current Outpatient Medications on File Prior to Visit Medication Sig Dispense Refill Alcohol Swabs (B-D SINGLE USE SWABS REGULAR) pads USE SWAB EXTERNALLY DIRECTED 4 TIMES DAILY Caplyta 10.5 MG capsule Take 1 capsule by mouth Daily carBAMazepine (TEGretol) 200 MG tablet Take 200 mg by mouth in the morning and 200 mg before bedtime. carbidopa-levodopa (Sinemet) 25-100 MG tablet Take 1 tablet by mouth in the morning and 1 tablet before bedtime. cholecalciferol 1.25 MG (25526 UT) capsule Take 50,000 Units by mouth 1 (one) time per week Continuous Blood Gluc Program Director/Music Director (Dexcom G7 Program Director/Music Director) device USE DIRECTED Continuous Blood Gluc Sensor (Dexcom G7 Sensor) misc USE DIRECTED cyanocobalamin (Vitamin B-12) 1000 MCG tablet Take 1,000 mcg by mouth in the morning. glipiZIDE (Glucotrol) 5 MG tablet 1 (one) time each day at the same time. pregabalin (Lyrica) 100 MG capsule Take 100 mg by mouth in the morning and 100 mg before bedtime. QUEtiapine (SEROquel) 25 MG tablet Take 25 mg by mouth at bedtime Trulicity 3 MG/0.5ML solution pen-injector Administer the contents of one prefilled pen subcutaneously once weekly as directed Clobetasol Propionate 0.05 % shampoo LATHER ON WET HAIR TOPICALLY, LEAVE ON FOR 5 MINUTES THEN RINSE. USE 2 TO 3 TIMES A WEEK 118 mL 11 ibuprofen 800 MG tablet TAKE 1 TABLET BY MOUTH EVERY 8 HOURS IF NEEDED FOR MODERATE PAIN (4-7 PAIN)(Patient not taking: Reported on 11/21/2024) nabumetone (Relafen) 500 MG tablet Take 500 mg by mouth 2 (two) times a day as needed (Patient not taking: Reported on 11/21/2024) pantoprazole (ProtoNix) 40 MG EC tablet Take 40 mg by mouth Daily (Patient not taking: Reported on 11/21/2024) potassium chloride CR (Klor-Con M20) 20 MEQ ER tablet Take 1 tablet by mouth in the morning. (Patient not taking: Reported on 11/21/2024) pramipexole (Mirapex) 0.125 MG tablet Take 1 tablet (0.125 mg) by mouth in the morning and 1 tablet(0.125 mg) before bedtime. (Patient not taking: Reported on 11/21/2024) 60 tablet 1 Rimegepant Sulfate (Nurtec) 75 MG tablet dispersible TAKE 1 TABLET BY MOUTH AT THE ONSET OF MIGRAINE Take no more than 1 dose in 48 hrs. (Patient not taking: Reported on 11/21/2024) 8 tablet 2 [DISCONTINUED] clobetasol (Temovate) 0.05 % external solution Apply to scalp every day prn flares 50 mL 11 No current facility-administered medications on file prior to visit. Allergies Allergen Reactions Penicillins Hives, Itching, Rash and Unknown Other reaction(s): itching Ropinirole Hives Topiramate Hives, Rash and Unknown Aloe Vera Unknown Baclofen Unknown and Swelling Other reaction(s): Other: See Comments Cephalexin GI intolerance, Nausea Only and Unknown Other reaction(s): GI Upset, Vomiting Ciprofloxacin Hcl Unknown Ciprofloxacin-Ciproflox Hcl Er Diclofenac Unknown and Other Stomach pain and cramping Duloxetine Fatigue Menthol Unknown Other reaction(s): Other: See Comments Metformin Hives Morphine Nausea And Vomiting and GI intolerance Naproxen Unknown Sumatriptan Unknown Tramadol Unknown Azithromycin Itching, Rash and Unknown Cyclobenzaprine Hives, Unknown and Rash Other reaction(s): rash, itching, Unknown, Unknown Gabapentin Hives, Rash and Unknown Other reaction(s): Other: See Comments, Unknown Ibuprofen Rash Nsaids Hives, Unknown and Rash Tizanidine Rash Zonisamide Rash Social History Tobacco Use Smoking status: Former Types: Cigarettes Smokeless tobacco: Never Vaping Use Vaping status: Never Used Substance Use Topics Alcohol use: Yes Comment: caffeine 1-2 cups per day; soda Drug use: Defer Family History Problem Relation Name Age of Onset Hypertension Mother Brain cancer Paternal Grandmother Mental illness Sibling Diabetes Other Melanoma Neg Hx Psoriasis Neg Hx Past Medical History: Diagnosis Date Allergies Anxiety Arthritis Asthma ([facility]) Back pain 06/17/2017 Backache 04/05/2015 Bipolar 1 disorder ([facility]) Bronchitis Chicken pox Chronic back pain DDD (degenerative disc disease), lumbar 06/17/2017 Depression ([facility]) Diabetes mellitus ([facility]) Disturbance of skin sensation 04/05/2015 Insomnia 01/06/2018 Kidney stone Lumbar radiculopathy 01/06/2018 Lumbar spondylosis 01/06/2018 Measles Migraine ([facility]) Muscle weakness 04/05/2015 Overactive bladder Pain in limb 03/04/2015 Pneumonia Radicular pain 03/21/2018 Radiculopathy 03/04/2015 Restless legs syndrome Scarlet fever Tonsillitis Past Surgical History: Procedure Laterality Date BREAST LUMPECTOMY Left 03/2021 CARPAL TUNNEL RELEASE Bilateral SECTION, CLASSIC 2006 CHOLECYSTECTOMY LAPAROSCOPIC HYSTERECTOMY 01/2020 OTHER SURGICAL HISTORY episiotomy repair [facility]NA[facility] for overactive bladder TONSILLECTOMY TOTAL KNEE ARTHROPLASTY Bilateral VAGINAL DELIVERY 1997 WISDOM TOOTH EXTRACTION x4 Visit Vitals BP 110/78 Pulse 89 Temp 98 F SpO2 99% Smoking Status Former ROS: A complete system ROS was performed and negative aside from the pertinent positives noted in the HPI and PE. Physical Exam Constitutional: General: She is not in acute distress. Appearance: She is well-developed. She is obese. HENT: Head: Normocephalic and atraumatic. Mouth/Throat: Dentition: Abnormal dentition. Dental tenderness, gingival swelling and dental caries present. Comments: Gums erythematous, multiple missing teeth, poor dentition Eyes: General: No scleral icterus. Conjunctiva/sclera: Conjunctivae normal. Cardiovascular: Rate and Rhythm: Normal rate and regular rhythm. Heart sounds: Normal heart sounds. No murmur heard. Pulmonary: Effort: Pulmonary effort is normal. No respiratory distress. Breath sounds: Normal breath sounds. No wheezing, rhonchi or rales. Lymphadenopathy: Cervical: No cervical adenopathy. Skin: General: Skin is warm and dry. Neurological: General: No focal deficit present. Mental Status: She is alert and oriented to person, place, and time. Psychiatric: Mood and Affect: Mood normal. Behavior: Behavior normal. Assessment/Plan Diagnoses and all orders for this visit: Dental infection - clindamycin (Cleocin) 300 MG capsule; Take 1 capsule (300 mg) by mouth in the morning and 1 capsule (300 mg) in the evening and 1 capsule (300 mg) before bedtime. Do all this for 7 days. Pt is to follow up with dentist next month as scheduled. Is going to have her remaining teeth removed. Start the above as directed. Reviewed potential s/e with patient. Encouraged probiotic while on antibiotic. Increase water intake, get plenty of rest. Can take OTC Tylenol prn. Nabumetone prn. Liz ZABALA PA-C documented in this encounterSaint Alexius [id number] Instructions* Patient Instructions* Mimi Meade APRN.MEASURER - 11/18/2024 7:45 AM EDT PATIENT PREOPERATIVE INSTRUCTIONS Kwame Mcneil has scheduled you for your procedure at this surgery center: [facility]: [phone] --[address] [place] [address]. Please read below carefully for your personalized instructions. Dietary Restrictions: - No solid food after midnight. - You may have 12 ounces of clear liquids (water, clear juices such as apple juice or gatorade, carbonated beverages, clear tea, black coffee, jello) until 2 hours before scheduled arrival at facility. - Do not drink any alcohol after midnight the night before your surgery. - No Milk/Dairy - No Pulp Juices Medications: Unless instructed differently below, stay on all of your medications until your surgery. If you start any new medications after today's visit, please contact your surgeon. Pre-Surgery Med Instructions Medication Instructions potassium chloride 20 mEq TbER Do not take the day of surgery benzonatate (TESSALON PERLE) 100 mg capsule Do not take the day of surgery nabumetone (RELAFEN) 500 mg tablet Hold 7 days before surgery. rimegepant sulfate (NURTEC ODT ORAL) Do not take the day of surgery glipiZIDE (GLUCOTROL) 5 mg tablet Do not take the day of surgery dulaglutide (TRULICITY) 4.5 mg/0.5 mL pen injector Takes Mondays, please do not inject 11/30/24, 12/07/24, resume after surgery If you start any new medications after today's visit, please contact the surgeon's office. If you are currently using a zimo-ito-rptc injectable or oral medication for diabetes or weight loss such as Dulaglutide (Trulicity), Exenatide (Byetta, Bydureon), Liraglutide (Victoza, Saxenda), Semaglutide (Ozempic, Wegovy, Rybelsus), or Tirzepatide (Mounjaro), the medicine should be stopped at least 7 days before surgery. These medicines can cause food to remain in your stomach for a very longtime and increase the risks from surgery and anesthesia. Not stopping the medication for a long enough time may result in your surgery being rescheduled. Blood Thinning Medications: - Hold NSAIDS (Ibuprofen, Advil, Aleve, Motrin, Celebrex, Mobic, etc.) 7 days before surgery, as directed by your surgeon. - Hold Aspirin 7 days before surgery, as directed by your surgeon. - Hold all herbals and dietary supplements 7 days before surgery. - You may take Tylenol (Acetaminophen) or any of your pain medications that do not contain aspirin or NSAIDS as needed. Important Reminders: - If you are prescribed inhalers for breathing, continue using them. - If you use CPAP/BIPAP, and will be staying over night, bring the machine with you to the surgery center. - If you use home O2, please bring with you to the surgery center - Please abstain from cannabis use for one week prior to surgery - Candy, mints, and tobacco products are NOT permitted the morning of surgery. - Hearing aids, dentures and glasses may be worn the morning of surgery. - NO jewelry, body piercings, makeup, hairpins or contacts are to be worn the day of surgery. If you develop symptoms such as a fever, cold, or flu, or have other changes to your health within TWO DAYS of scheduled surgery or the morning of surgery, please contact the surgery center above. Personal Belongings: -Please have photo ID and insurance cards. -If you do not have a copy of advance directives on file with us, please bring a copy with you on the day of surgery. - Leave ALL valuables and money at home or with family members. For Outpatient Procedures: - YOU MUST HAVE A RESPONSIBLE TOPOGRAPHY TECHNICIAN TAKE YOU HOME. A FORMULA WEIGHER OR CUSTOMS INSPECTOR CANNOT BE MADE A RESPONSIBLE TOPOGRAPHY TECHNICIAN. - We recommend that a responsible person stays with you overnight to take care of you. - You cannot stay in a hotel alone after outpatient surgery. You will not be permitted to have yoursurgery, if you do not have someone to take care of you. Arrival Time for Surgery: - The Surgery Center or hospital where you are having surgery will call the afternoon before surgery (or Saturday for Saturday surgery) with a scheduled arrival time. - If you have not heard by 4 pm, please contact the surgery center above. Please be aware that emergency situations arise, which may delay or change your surgical time. If this happens, we will notify you as soon as possible and regret any inconvenience. If you already have an Advance Directive, please fax a copy to [phone] or email to for it to be added to your chart. If you do not have an Advance Directive, you can find the appropriate form and more information at [email or web address]. We recommend that youcomplete the Advance Directive form found on the website and bring it with you the day of your surgery. It can be witnessed and scanned into your chart that day. documented in this encounterThe [facility] History and physical note * Mimi Meade APRN.CNP - 11/18/2024 7:40 AM EDT Images from the original note were not included. HISTORY AND PHYSICAL EXAMINATION SERVICE DATE: 11/18/2024 SERVICE TIME: 7:53 AM PRIMARY CARE PHYSICIAN: Brigida Nobles CNP REASON FOR VISIT: Lisa Mendez is a 49 year old female who is scheduled for Left - ARTHROPLASTY CARPOMETACARPAL JOINTS Left - INCISION EXTENSOR TENDON SHEATH WRIST Left - TRANSFER TENDON, CARPOMETACARPAL OR DORSUM HAND; W/O FREE GRAFT, EACH Left - METACARPAL PHALANGEAL PINNING at the request of Dr. Kwame Mcneil for consultation. My final recommendation will be communicated back to the requesting physician by way of shared medical record or letter. Assessment Migraine Assessment: controlled, stable on med Bipolar 1 disorder (HCC) Assessment: stable on meds, follows with specialist, denies SI/HI Morbid obesity (HCC) Assessment: Body mass index is 42.18 kg/m . Type 2 diabetes mellitus without retinopathy (HCC) Assessment: Currently taking metformin, trulicity, injects Trulicity on Mondays, will skip doses on 11/30/24, 12/07/24, resume after surgery which is currently scheduled on 12/07/2024 Patient is aware that glucose must be <200 day of surgery A1C 06/17/24 5.8 [facility] Kidney stones Assessment: h/o stones. No current issues Asthma (HCC) Assessment: stable and asymptomatic, uses inhalers. No recent URI. Lungs clear to auscultation Denies use of supplemental oxygen Today, 98% on RA Current smoker Assessment: vapes daily. Nicotine, thc, cbd Agrees to abstain for 7 days prior to surgery Sleep apnea Assessment: cannot tolerate CPAP Restless legs Assessment: stable on sinemet Posttraumatic stress disorder Assessment: denies panic in hospital setting S/P lumpectomy, left breast Assessment: states benign breast mass ANESTHESIA FINDINGS: Intubation History: No history of difficult intubation Significant Anesthesia Considerations: none Airway History: No history of difficult airway Gibbs Activity Status Index: METS: Walk indoors, such as around the house (1.75 METs) Do light work around the house, such as dusting or washing dishes (2.70 METs) Take care of self; that is eating, dressing, bathing, using the toilet (2.75 METs) Do moderate work around the house, such as vacuuming, sweeping floors, or carrying in groceries (3.50 METs) DASI Score: 10.7 (Limited by pain, as opposed to lung capacity) Clinical Frailty Scale: 2. Well STOP-Bang Score: BMI greater than 35 kg/m^2 Denies snoring loudly Denies feeling tired, fatigued, or sleepy during the daytime Has not been observed to stop breathing or choking/gasping during sleep Denies having high blood pressure Patient 50 years old or younger Does not have a large neck Non-male patient STOP-Bang Score: 1 [id number] Score: Age: <65 Sex: female CHF history: No Hypertension history: No Stroke/TIA/thromboembolism history: No Vascular disease history: No Diabetes history: Yes [id number] Score: 2 ARISCAT Score: Age: <=50 Preoperative SpO2: >=96% Respiratory infection in the last month: No Duration of surgery: >3 hrs Emergency procedure: No ARISCAT Score: Airway 06/24/23 Airway not difficult General Information and Staff Patient location during procedure: OR Anesthesiologist: Tyler Wylie MD Resident/SPOOL FIXER/SG: Olivier Stephens MD Performed: resident/SPOOL FIXER/CAA and anesthesiologist Indications and Patient Condition Indications for airway management: anesthesia Spontaneous ventilation: present Sedation level: deep Preoxygenated: yes Mask difficulty assessment: 0 - not attempted Planned trial extubation Final Airway Details Final airway type: supraglottic airway I - PHYSICAL EVALUATION AIRWAY Patient intubated: No. Tracheostomy tube not present Mallampati: II. TM distance: >3 FB. Neck ROM: full ROM without neurological symptoms. Mouth opening: adequate. Short neck: no. Thick neck: no Chandler present: no Lip Bite Test: II Microretrognathia/Micronagthia/Recessed Chin: No DENTAL Dental findings: missing tooth/teeth. II - ANESTHESIA PLAN Anesthetic plan additional comments: *PACC/TCI - anesthesia choice. Beta Torri Monitoring Plan Post Procedure Analgesic Plan Prepared for surgery: This patient is optimally prepared for surgery. CONSULTS: Patient does not require consults for optimization at this time. The Following Tests/Procedures Have Been Initiated: Labs not indicated per PACC protocol, EKG not indicated per PACC protocol Planned Anesthetic: Per anesthesia choice Subjective CHIEF COMPLAINT: H/O thumb surgery [Z98.890] Primary osteoarthritis of first carpometacarpal joint of left hand [M18.12] De Quervain's tenosynovitis [M65.4] HPI: Patient is a 49 year old FEMALE presenting for pre-op evaluation for the above procedure. Patient denies any chest pain, shortness of breath, palpitations, fever/chills, nausea/vomiting, fatigue, or diarrhea. REVIEW OF SYSTEMS: PAIN ASSESSMENT: Pain Pain Level: 8 Pain Location: Hand-Left Description: Aching, Numbness, Tingling Duration Units: Years Frequency: Continuous Intervention/Comfort measure: Declined General: No weight loss, malaise or fevers. Neuro: Postive for migraines, Negative for TIA's Seizures Respiratory: Positive for NATALY, asthma, smoker, Negative for Current cough, Pneumonia within 6 weeks(date) Cardiovascular: No history of HTN requiring medication, no history of angina, CHF, CA, cardiac surgery or stents. Denies rest pain, gangrene or revascularization/amputation for PVD. No history of cardiovascular symptoms or problems. GI: No history of GI symptoms or problems. No history of esophageal varices, recent ascites, or ETOH greater than 2 drinks per day. : h/o kidney stones IT TRAINER: Negative for abnormal vaginal bleeding, abnormal vaginal discharge. : Denies, No LMP recorded (lmp unknown). Patient has had a hysterectomy. Endocrine: diabetes Hematology: No history of bleeding or clotting disorder. Pt is not taking anti- coagulation or platelet medications. No history of hematological symptoms or problems. Oncology: h/o left breast mass Implanted Devices: No Psych: PTSD, bipolar Marijuana use: Yes: Concentrate- Inhalation daily Musculoskeletal: back and joint pain, Body mass index is 42.18 kg/m . Skin: Negative for lesions, rash and itching. The patient has the following: ACTIVE PROBLEM LIST No Show Right Ankle Pain Pain in Right Foot Lisfranc Dislocation Djd (Degenerative Joint Disease), Ankle and Foot Pttd (Posterior Tibial Tendon Dysfunction) Morbid Obesity (Hcc) Dry Eye Syndrome of Bilateral Lacrimal Glands Type 2 Diabetes Mellitus Without Retinopathy (Hcc) Bilateral Presbyopia H/O Thumb Surgery De Quervain's Tenosynovitis, Left Primary Osteoarthritis of First Carpometacarpal Joint of Left Hand Asthma (Hcc) Sleep Apnea Current Smoker Kidney Stones Migraine Covid Immunization Dates Current Care Gaps Covid-19 Vaccine (2023- season) Overdue since 04/05/2024 04/19/2021 Imm Admin: COVID-19 original vaccine, age 12+ yr, monovalent (PFIZER- BIONTECH - PURPLE TOP) 03/29/2021 Imm Admin: COVID-19 original vaccine, age 12+ yr, monovalent (PFIZER- BIONTECH - PURPLE TOP) PAST MEDICAL HISTORY Diagnosis Date H/O abdominal hysterectomy 01/2020 PAST SURGICAL HISTORY Procedure Laterality Date PAST SURGICAL HISTORY OF knee scopes PAST SURGICAL HISTORY OF Bilateral carpal tunnel PAST SURGICAL HISTORY OF Left lumpectomy PAST SURGICAL HISTORY OF Bilateral total knee REMOVAL GALLBLADDER TONSILLECTOMY & ADENOIDECTOMY TOTAL ABDOM HYSTERECTOMY History reviewed. No pertinent family history. Social History Tobacco Use Smoking status: Never Smokeless tobacco: Never Vaping Use Vaping status: current everyday user Substances: Nicotine, THC, CBD, Flavoring Devices: Pre-filled or refillable cartridge Substance Use Topics Alcohol use: Yes Comment: rare/occ Drug use: Never Prior to Admission medications as of 11/18/24 0743 Medication Sig Last Dose Taking pregabalin (LYRICA) 150 mg capsule Take 150 mg by mouth once daily. Yes QUEtiapine (SEROQUEL) 25 mg tablet Take 25 mg by mouth daily at bedtime. Yes potassium chloride 20 mEq TbER Take by mouth once daily. Yes ipratropium-albuterol (DUONEB) 0.5 mg-3 mg(2.5 mg base)/3 mL nebu Inhale 3 mL as instructed every 6hours as needed for wheezing/shortness of breath. Yes HYDROMET 5-1.5 mg/5 mL syrup Take 5 mL by mouth every 6 hours as needed for cough. Yes benzonatate (TESSALON PERLE) 100 mg capsule Take 100 mg by mouth two times a day as needed for cough. Yes albuterol (PROVENTIL) 2.5 mg /3 mL (0.083 %) nebulizer solution Use 2.5 mg via nebulizer every 6 hours as needed for wheezing/shortness of breath. Yes VENTOLIN HFA 90 mcg/actuation inhaler Inhale 1 puff as instructed every 6 hours as needed. Yes nabumetone (RELAFEN) 500 mg tablet 500 mg. Yes pramipexole (MIRAPEX) 0.125 mg tablet TAKE 1 TABLET BY MOUTH 2 TO 3 HOURS BEFORE BEDTIME Yes cholecalciferol, Vitamin D3, (VITAMIN D3) 1,250 mcg (50,000 unit) cap capsule Take 1 capsule by mouth one time a week. Yes cyanocobalamin (VITAMIN B-12) 1,000 mcg tab Take 1,000 mcg by mouth once daily. Yes rimegepant sulfate (NURTEC ODT ORAL) Take 75 mg by mouth. Yes glipiZIDE (GLUCOTROL) 5 mg tablet Take 5 mg by mouth daily before breakfast. Yes dulaglutide (TRULICITY) 4.5 mg/0.5 mL pen injector Inject 4.25 mg subcutaneously one time a week. Yes carbidopa-levodopa (SINEMET 10-100) 10-100 mg per tablet 1 tablet daily at bedtime. Yes No medication comments found. ALLERGIES Allergen Reactions Ropinirole Hives Topiramate Hives, Rash, Other: See Comments Aloe Vera Other: See Comments Baclofen Other: See Comments, Swelling Cephalexin GI Upset, Vomiting Ciprofloxacin Other: See Comments Cyclobenzaprine Hives, Unknown Diclofenac Other: See Comments, Unknown Stomach pain and cramping Duloxetine Other: See Comments Fatigue Gabapentin Hives, Unknown, Other: See Comments Menthol Other: See Comments Metformin Hives Morphine GI Upset Naproxen Rash, Unknown Nsaids (Non-Steroid* Hives, Rash, Other: See Comments Oxycodone GI Upset Penicillins Rash Sumatriptan GI Upset, Rash Tramadol GI Upset Vitamin E Rash, Unknown, Other: See Comments Azithromycin Itching, Rash Zonisamide Rash Objective PHYSICAL EXAM: VITALS: BP 118/75 Pulse 79 Temp (Src) 98 (Oral) Resp 16 Ht 5' 3 (1.60m) Wt 238 lb 1.6 oz (108.0kg) SpO2 98% BMI 42.19 kg/(m^2). General: Alert and oriented, Morbidly obese Skin: Normal color, no rash, no lesions. HEENT: EOM, pupils equal, round and reactive. Cardiovascular: Normal S1 & S2, no rubs, murmurs or gallops. No JVD. Pulse regular. Lungs: Normal breath sounds, no wheezes or crackles. Abdomen: Soft, non-tender, no rigidity. Extremities: No deformity, no edema or tenderness, no joint swelling or clubbing. Neurological: Normal cognition and motor skills. Pulses: Carotid and radial pulses normal +2. Diagnostic tests reviewed for today's visit: 10/24/24 [facility] 3.22.25 [facility] A1C 06/17/24 5.8 [facility] Most recent EKG 03/30/21 Normal sinus rhythm Normal ECG Instructions Given to Patient: Instructions located in the after visit summary. Patient given verbal and written preop instructions and voices comprehension and compliance. SIGNATURE: Mimi Meade APRN.CNP PATIENT NAME: Lisa Mendez DATE: 11/18/2024 TIME: 8:15 AM [facility]04-16-[facility] History and physical note* Mimi Meade APRN.CNP - 11/18/2024 7:40 AM EDT Images from the original note were not included. HISTORY AND PHYSICAL EXAMINATION SERVICE DATE: 11/18/2024 SERVICE TIME: 7:53 AM PRIMARY CARE PHYSICIAN: Brigida Nobles CNP REASON FOR VISIT: Lisa Mendez is a 49 year old female who is scheduled for Left - ARTHROPLASTY CARPOMETACARPAL JOINTS Left - INCISION EXTENSOR TENDON SHEATH WRIST Left - TRANSFER TENDON, CARPOMETACARPAL OR DORSUM HAND; W/O FREE GRAFT, EACH Left - METACARPAL PHALANGEAL PINNING at the request of Dr. Kwame Mcneil for consultation. My final recommendation will be communicated back to the requesting physician by way of shared medical record or letter. Assessment Migraine Assessment: controlled, stable on med Bipolar 1 disorder (HCC) Assessment: stable on meds, follows with specialist, denies SI/HI Morbid obesity ([facility]) Assessment: Body mass index is 42.18 kg/m . Type 2 diabetes mellitus without retinopathy ([facility]) Assessment: Currently taking metformin, trulicity, injects Trulicity on Mondays, will skip doses on 11/30/24, 12/07/24, resume after surgery which is currently scheduled on 12/07/2024 Patient is aware that glucose must be <200 day of surgery A1C 06/17/24 5.8 [facility] Kidney stones Assessment: h/o stones. No current issues Asthma ([facility]) Assessment: stable and asymptomatic, uses inhalers. No recent URI. Lungs clear to auscultation Denies use of supplemental oxygen Today, 98% on RA Current smoker Assessment: vapes daily. Nicotine, thc, cbd Agrees to abstain for 7 days prior to surgery Sleep apnea Assessment: cannot tolerate CPAP Restless legs Assessment: stable on sinemet Posttraumatic stress disorder Assessment: denies panic in hospital setting S/P lumpectomy, left breast Assessment: states benign breast mass ANESTHESIA FINDINGS: Intubation History: No history of difficult intubation Significant Anesthesia Considerations: none Airway History: No history of difficult airway Gibbs Activity Status Index: METS: Walk indoors, such as around the house (1.75 METs) Do light work around the house, such as dusting or washing dishes (2.70 METs) Take care of self; that is eating, dressing, bathing, using the toilet (2.75 METs) Do moderate work around the house, such as vacuuming, sweeping floors, or carrying in groceries (3.50 METs) DASI Score: 10.7 (Limited by pain, as opposed to lung capacity) Clinical Frailty Scale: 2. Well STOP-Bang Score: BMI greater than 35 kg/m^2 Denies snoring loudly Denies feeling tired, fatigued, or sleepy during the daytime Has not been observed to stop breathing or choking/gasping during sleep Denies having high blood pressure Patient 50 years old or younger Does not have a large neck Non-male patient STOP-Bang Score: 1 [id number] Score: Age: <65 Sex: female CHF history: No Hypertension history: No Stroke/TIA/thromboembolism history: No Vascular disease history: No Diabetes history: Yes [id number] Score: 2 ARISCAT Score: Age: <=50 Preoperative SpO2: >=96% Respiratory infection in the last month: No Duration of surgery: >3 hrs Emergency procedure: No ARISCAT Score: Airway 06/24/23 Airway not difficult General Information and Staff Patient location during procedure: OR Anesthesiologist: Tyler Wylie MD Resident/SPOOL FIXER/CAA: Olivier Stephens MD Performed: resident/SPOOL FIXER/CAA and anesthesiologist Indications and Patient Condition Indications for airway management: anesthesia Spontaneous ventilation: present Sedation level: deep Preoxygenated: yes Mask difficulty assessment: 0 - not attempted Planned trial extubation Final Airway Details Final airway type: supraglottic airway I - PHYSICAL EVALUATION AIRWAY Patient intubated: No. Tracheostomy tube not present Mallampati: II. TM distance: >3 FB. Neck ROM: full ROM without neurological symptoms. Mouth opening: adequate. Short neck: no. Thick neck: no Chandler present: no Lip Bite Test: II Microretrognathia/Micronagthia/Recessed Chin: No DENTAL Dental findings: missing tooth/teeth. II - ANESTHESIA PLAN Anesthetic plan additional comments: *PACC/TCI - anesthesia choice. Beta Torri Monitoring Plan Post Procedure Analgesic Plan Prepared for surgery: This patient is optimally prepared for surgery. CONSULTS: Patient does not require consults for optimization at this time. The Following Tests/Procedures Have Been Initiated: Labs not indicated per PACC protocol, EKG not indicated per PACC protocol Planned Anesthetic: Per anesthesia choice Subjective CHIEF COMPLAINT: H/O thumb surgery [Z98.890] Primary osteoarthritis of first carpometacarpal joint of left hand [M18.12] De Quervain's tenosynovitis [M65.4] HPI: Patient is a 49 year old FEMALE presenting for pre-op evaluation for the above procedure. Patient denies any chest pain, shortness of breath, palpitations, fever/chills, nausea/vomiting, fatigue, or diarrhea. REVIEW OF SYSTEMS: PAIN ASSESSMENT: Pain Pain Level: 8 Pain Location: Hand-Left Description: Aching, Numbness, Tingling Duration Units: Years Frequency: Continuous Intervention/Comfort measure: Declined General: No weight loss, malaise or fevers. Neuro: Postive for migraines, Negative for TIA's Seizures Respiratory: Positive for NATALY, asthma, smoker, Negative for Current cough, Pneumonia within 6 weeks(date) Cardiovascular: No history of HTN requiring medication, no history of angina, CHF, CA, cardiac surgery or stents. Denies rest pain, gangrene or revascularization/amputation for PVD. No history of cardiovascular symptoms or problems. GI: No history of GI symptoms or problems. No history of esophageal varices, recent ascites, or ETOH greater than 2 drinks per day. : h/o kidney stones IT TRAINER: Negative for abnormal vaginal bleeding, abnormal vaginal discharge. : Denies, No LMP recorded (lmp unknown). Patient has had a hysterectomy. Endocrine: diabetes Hematology: No history of bleeding or clotting disorder. Pt is not taking anti- coagulation or platelet medications. No history of hematological symptoms or problems. Oncology: h/o left breast mass Implanted Devices: No Psych: PTSD, bipolar Marijuana use: Yes: Concentrate- Inhalation daily Musculoskeletal: back and joint pain, Body mass index is 42.18 kg/m . Skin: Negative for lesions, rash and itching. The patient has the following: ACTIVE PROBLEM LIST No Show Right Ankle Pain Pain in Right Foot Lisfranc Dislocation Djd (Degenerative Joint Disease), Ankle and Foot Pttd (Posterior Tibial Tendon Dysfunction) Morbid Obesity (Hcc) Dry Eye Syndrome of Bilateral Lacrimal Glands Type 2 Diabetes Mellitus Without Retinopathy (Hcc) Bilateral Presbyopia H/O Thumb Surgery De Quervain's Tenosynovitis, Left Primary Osteoarthritis of First Carpometacarpal Joint of Left Hand Asthma (Hcc) Sleep Apnea Current Smoker Kidney Stones Migraine Covid Immunization Dates Current Care Gaps Covid-19 Vaccine ( season) Overdue since 04/05/2024 04/19/2021 Imm Admin: COVID-19 original vaccine, age 12+ yr, monovalent (PFIZER- [employer] - PURPLE TOP) 03/29/2021 Imm Admin: COVID-19 original vaccine, age 12+ yr, monovalent (PFIZER- BIONTECH - PURPLE TOP) PAST MEDICAL HISTORY Diagnosis Date H/O abdominal hysterectomy 01/2020 PAST SURGICAL HISTORY Procedure Laterality Date PAST SURGICAL HISTORY OF knee scopes PAST SURGICAL HISTORY OF Bilateral carpal tunnel PAST SURGICAL HISTORY OF Left lumpectomy PAST SURGICAL HISTORY OF Bilateral total knee REMOVAL GALLBLADDER TONSILLECTOMY & ADENOIDECTOMY <AGE 12 TOTAL ABDOM HYSTERECTOMY History reviewed. No pertinent family history. Social History Tobacco Use Smoking status: Never Smokeless tobacco: Never Vaping Use Vaping status: current everyday user Substances: Nicotine, THC, CBD, Flavoring Devices: Pre-filled or refillable cartridge Substance Use Topics Alcohol use: Yes Comment: rare/occ Drug use: Never Prior to Admission medications as of 11/18/24 0743 Medication Sig Last Dose Taking pregabalin (LYRICA) 150 mg capsule Take 150 mg by mouth once daily. Yes QUEtiapine (SEROQUEL) 25 mg tablet Take 25 mg by mouth daily at bedtime. Yes potassium chloride 20 mEq TbER Take by mouth once daily. Yes ipratropium-albuterol (DUONEB) 0.5 mg-3 mg(2.5 mg base)/3 mL nebu Inhale 3 mL as instructed every 6hours as needed for wheezing/shortness of breath. Yes HYDROMET 5-1.5 mg/5 mL syrup Take 5 mL by mouth every 6 hours as needed for cough. Yes benzonatate (TESSALON PERLE) 100 mg capsule Take 100 mg by mouth two times a day as needed for cough. Yes albuterol (PROVENTIL) 2.5 mg /3 mL (0.083 %) nebulizer solution Use 2.5 mg via nebulizer every 6 hours as needed for wheezing/shortness of breath. Yes VENTOLIN HFA 90 mcg/actuation inhaler Inhale 1 puff as instructed every 6 hours as needed. Yes nabumetone (RELAFEN) 500 mg tablet 500 mg. Yes pramipexole (MIRAPEX) 0.125 mg tablet TAKE 1 TABLET BY MOUTH 2 TO 3 HOURS BEFORE BEDTIME Yes cholecalciferol, Vitamin D3, (VITAMIN D3) 1,250 mcg (50,000 unit) cap capsule Take 1 capsule by mouth one time a week. Yes cyanocobalamin (VITAMIN B-12) 1,000 mcg tab Take 1,000 mcg by mouth once daily. Yes rimegepant sulfate (NURTEC ODT ORAL) Take 75 mg by mouth. Yes glipiZIDE (GLUCOTROL) 5 mg tablet Take 5 mg by mouth daily before breakfast. Yes dulaglutide (TRULICITY) 4.5 mg/0.5 mL pen injector Inject 4.25 mg subcutaneously one time a week. Yes carbidopa-levodopa (SINEMET 10-100) 10-100 mg per tablet 1 tablet daily at bedtime. Yes No medication comments found. ALLERGIES Allergen Reactions Ropinirole Hives Topiramate Hives, Rash, Other: See Comments Aloe Vera Other: See Comments Baclofen Other: See Comments, Swelling Cephalexin GI Upset, Vomiting Ciprofloxacin Other: See Comments Cyclobenzaprine Hives, Unknown Diclofenac Other: See Comments, Unknown Stomach pain and cramping Duloxetine Other: See Comments Fatigue Gabapentin Hives, Unknown, Other: See Comments Menthol Other: See Comments Metformin Hives Morphine GI Upset Naproxen Rash, Unknown Nsaids (Non-Steroid* Hives, Rash, Other: See Comments Oxycodone GI Upset Penicillins Rash Sumatriptan GI Upset, Rash Tramadol GI Upset Vitamin E Rash, Unknown, Other: See Comments Azithromycin Itching, Rash Zonisamide Rash Objective PHYSICAL EXAM: VITALS: BP 118/75 Pulse 79 Temp (Src) 98 (Oral) Resp 16 Ht 5' 3 (1.60m) Wt 238 lb 1.6 oz (108.0kg) SpO2 98% BMI 42.19 kg/(m^2). General: Alert and oriented, Morbidly obese Skin: Normal color, no rash, no lesions. HEENT: EOM, pupils equal, round and reactive. Cardiovascular: Normal S1 & S2, no rubs, murmurs or gallops. No JVD. Pulse regular. Lungs: Normal breath sounds, no wheezes or crackles. Abdomen: Soft, non-tender, no rigidity. Extremities: No deformity, no edema or tenderness, no joint swelling or clubbing. Neurological: Normal cognition and motor skills. Pulses: Carotid and radial pulses normal +2. Diagnostic tests reviewed for today's visit: 10/24/24 [facility] 3.22.25 [facility] A1C 06/17/24 5.8 [facility] Most recent EKG 03/30/21 Normal sinus rhythm Normal ECG Instructions Given to Patient: Instructions located in the after visit summary. Patient given verbal and written preop instructions and voices comprehension and compliance. SIGNATURE: Mimi Meade APRN.CNP PATIENT NAME: Lisa Mendez DATE: 11/18/2024 TIME: 8:15 AM documented in this encounterThe [facility] Telephone encounter Note * Telephone Encounter - Alina Gardner - 11/06/2024 2:54 PM EDT Spoke with patient and scheduled pre/post op appointments. [facility]04-04-[facility] Telephone encounter Note* Telephone Encounter - Alina Gardner - 11/06/2024 2:54 PM EDT ----- Message from Mode Mcclain RN sent at 11/06/2024 11:53 AM EDT ----- Regarding: Surgery Please make a post operative appointment 10-14 days after surgery date with Aline Hammonds PA-C. Please make a post operative appointment 6 weeks after surgery with Dr Mcneil. Where: [facility] Date: 12/07/2024 Procedure: Left thumb revision carpometacarpal arthroplasty with slip of abductor pollicis longus tendon and internal brace with suture anchors; left first dorsal compartment release; extensor pollicis brevis transfer and thumb metacarpal phalangeal pinning Code: 83920, 97119, 25798, 88183 Anesthesia: General, block Dx: Z98.890, M18.12, M65.4 Implant to come out: Special request: mini C arm, Arthrex APL suspension with internal brace Time: 3 hours 1st PO cast room, XRAline, 2nd PO cast room, XR, Dr. Mcneil, OT [facility]04-04-2025 Miscellaneous Notes* Telephone Encounter - Alina Gardner - 11/06/2024 2:54 PM EDT Spoke with patient and scheduled pre/post op appointments. * Telephone Encounter - Alina Gardner - 11/06/2024 2:54 PM EDT ----- Message from Mode Mcclain RN sent at 11/06/2024 11:53 AM EDT ----- Regarding: Surgery Please make a post operative appointment 10-14 days after surgery date with Aline Hammonds PA-C. Please make a post operative appointment 6 weeks after surgery with Dr Mcneil. Where: [place] Date: 12/07/2024 Procedure: Left thumb revision carpometacarpal arthroplasty with slip of abductor pollicis longus tendon and internal brace with suture anchors; left first dorsal compartment release; extensor pollicis brevis transfer and thumb metacarpal phalangeal pinning Code: 76346, 15430, 17819, 12021 Anesthesia: General, block Dx: Z98.890, M18.12, M65.4 Implant to come out: Special request: mini C arm, Arthrex APL suspension with internal brace Time: 3 hours 1st PO cast room, XR, Aline, 2nd PO cast room, XR, Dr. Tarun OT documented in this encounterThe [facility]04-[facility] Procedure [facility] [place] [address] Pulmonary Function Signed Patient: Lisa Mendez MR#: [id number] : 1975 Date of Service:0 11/05/24 Age/Sex: 49 / F ADM Date: 5 Loc: Room: Type: [facility] CLI Attending Dr: Brigida Corea APRN, [employer]TOGENETICS LABORATORY MANAGER-C Copies to: Brigida Corea APRN, CYTOGENETICS LABORATORY MANAGER-C MD Josr Rodas MD~ Pulmonary Function Test Complete pulmonary function studies were performed on November 05, 2024 for patient with diagnosis of chronic cough. Spirometry was acceptable and reproducible with adequate durations of exhalation. Please refer to the pulmonary function test report for the raw data. SPIROMETRY: Spirometry was performed with bronchodilator studies and reveals an FEV1 to FVC ratio of 76% with an FEV1 of 2.13 liters (77% predicted) and a forced vital capacity of 2.81 liters (81% predicted). There was improvement in the mid and terminal expiratory flow after administration of bronchodilators which may have been related to a late appearing peak effort during exhalation. LUNG VOLUMES: Measurement of static lung volumes was performed by plethysmography and indicates a total lung capacity of 4.49 liters (94% predicted) with a residual volume which was 100% of predictedand a residual volume to total lung capacity ratio of 37%. DIFFUSION CAPACITY: Single breath diffusion capacity is 15.5 mL/mmHg/min (69% predicted) and is 128% predicted after adjustment for alveolar volume. SUMMARY: These pulmonary function studies suggest evidence of minimal to mild obstruction primarilyat low lung volumes with equivocal bronchodilator response. There is no restriction nor air trapping. Diffusion capacity is mildly reduced but is supranormal when adjusted for alveolar volume. No prior studies of January 2020 revealed a possible trend of airways hyperreactivity with anearly significant improvement in the mid and terminal expiratory flows which could suggest the possibility of cough variant asthma in the appropriate clinical scenario. Clinical correlation is recommended. 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 Please advise. 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 Please advise. [facility]03-26-2025 Instructions* Patient Instructions* Luis Mathew DO - 10/28/2024 1:[address] Preethi Lancaster for left knee issues documented in this encounterThe [facility]03-26-2025 NoteHNO ID: [id number] Author: LUIS MATHEW DO Service: ? Author Type: Physician Type: Progress Notes Filed: 10/28/2024 14:56 Note Text: Lisa Mendez is a patient of Brigida Nobles CNP. CHIEF COMPLAINT: Lisa Mendez is a 49 year old female who presents today for new evaluation of left knee. HISTORY OF PRESENT ILLNESS: PAIN EVALUATION 10/28/2024 1237 10/28/2024 1348 Pain Level: 5 5 Pain Location: Knee-Left Knee-Left Description: Aching;Numbness Aching;Sore Duration Amount of Time: -- 5 Duration Units: -- Years Frequency: -- Continuous Intervention/Comfort measure: -- Medication;Cold;Exercise;Heat Comments: -- left total replacement 2020 Location of pain: left knee History of TKA in 2020 Has had issues since the surgery Complains of pain and swelling in the knee Has had attempted aspirations to no avail Has been told by OSH that did the TKA, there are no issues PHYSICAL EXAMINATION: Knee Examination Left Knee Skin Mild swelling overall Effusion No effusion Alignment normal Range of motion Slight decreased, due to pain Quadriceps examination full (5/5) quadriceps strength bilaterally, however there is bilateral VMO atrophy noted Patellar examination Normal patellar mobility Tenderness diffuse IMAGING: Final results and radiologist's interpretation, available in the [facility] health record. Images were reviewed with the patient/family members in the office today. My personal interpretation of the performed imaging is no acute abnormality. CLINICAL IMPRESSION / ASSESSMENT: (T84.84XA, Z96.659) Pain due to total knee replacement, initial encounter (HCC) (HCC) (primary encounter diagnosis) RECOMMENDATION / PLAN: Labs ordered- sed rate and CRP Consult with surgical partner to review the knee Scheduled with partner prior to leaving office Procedures Verbal health education was given to patient. Patient verbalizes understanding and agrees with the treatment plan as detailed above. [facility] History of Present illness Narrative* Luis Mathew, DO - 10/28/2024 1:50 PM EDT Images from the original note were not included. Lisa Mendez is a patient of Brigida Nobles CNP. CHIEF COMPLAINT: Lisa Mendez is a 49 year old female who presents today for new evaluation of left knee. HISTORY OF PRESENT ILLNESS: PAIN EVALUATION 10/28/2024 1237 10/28/2024 1348 Pain Level: 5 5 Pain Location: Knee-Left Knee-Left Description: Aching;Numbness Aching;Sore Duration Amount of Time: -- 5 Duration Units: -- Years Frequency: -- Continuous Intervention/Comfort measure: -- Medication;Cold;Exercise;Heat Comments: -- left total replacement 2020 Location of pain: left knee History of TKA in 2020 Has had issues since the surgery Complains of pain and swelling in the knee Has had attempted aspirations to no avail Has been told by OSH that did the TKA, there are no issues PHYSICAL EXAMINATION: Knee Examination Left Knee Skin Mild swelling overall Effusion No effusion Alignment normal Range of motion Slight decreased, due to pain Quadriceps examination full (5/5) quadriceps strength bilaterally, however there is bilateral VMO atrophy noted Patellar examination Normal patellar mobility Tenderness diffuse IMAGING: Final results and radiologist's interpretation, available in the [facility] health record. Images were reviewed with the patient/family members in the office today. My personal interpretation of the performed imaging is no acute abnormality. CLINICAL IMPRESSION / ASSESSMENT: (T84.84XA, Z96.659) Pain due to total knee replacement, initial encounter (HCC) (HCC) (primary encounter diagnosis) RECOMMENDATION / PLAN: Labs ordered- sed rate and CRP Consult with surgical partner to review the knee Scheduled with partner prior to leaving office Procedures Verbal health education was given to patient. Patient verbalizes understanding and agrees with the treatment plan as detailed above. Luis Mathew DO documented in this encounterThe [facility]03-[facility]-2025 NoteHNO ID: [id number] Author: ELIZABETH DAIGLE RT(R) Service: ? Author Type: Technologist Type: Progress Notes Filed: 10/28/2024 13:48 Note Text: Radiology Service Progress Note PATIENT NAME: Lisa Mendez DATE OF SERVICE: October 28, 2024 TIME: 1:46 PM PATIENT IDENTITY VERIFICATION COMPLETED USING TWO (2) IDENTIFIERS: Name and Date of confirmed by patient verbally. FALL SCREENING: Has the patient had 2 falls in the last year or 1 fall with injury or currently using an Ambulatory Assistive Device (Walker, Cane, Wheelchair, Crutches, etc.)? No PATIENT GENDER DATA: Assigned female at . status: : No status: NO. PATIENT RELEVANT IMPLANT DATA REVIEWED: Not Applicable PATIENT PRESENTS WITH AN IMPLANTABLE OR ATTACHED CADD OPERATOR: No RADIOLOGY DEPARTMENT: General X-ray: Exam(s) Completed: Lower Extremity X-Ray(s): Knee, AP / Lat / Tunne / Merchant Left and Wt. Bearing PERIPHERAL IV DATA: Not applicable SIGNED BY: RT Bernardo(R) October 28, 2024 1:46 [facility]03-26-2025 History of Present illness Narrative* Elizabeth Daigle RT(R) - 10/28/2024 1:46 PM EDT Radiology Service Progress Note PATIENT NAME: Lisa Mendez DATE OF SERVICE: October 28, 2024 TIME: 1:46 PM PATIENT IDENTITY VERIFICATION COMPLETED USING TWO (2) IDENTIFIERS: Name and Date of confirmedby patient verbally. FALL SCREENING: Has the patient had 2 falls in the last year or 1 fall with injury or currently using an Ambulatory Assistive Device (Walker, Cane, Wheelchair, Crutches, etc.)? No PATIENT GENDER DATA: Assigned female at . status: : No status:NO. PATIENT RELEVANT IMPLANT DATA REVIEWED: Not Applicable PATIENT PRESENTS WITH AN IMPLANTABLE OR ATTACHED CADD OPERATOR: No RADIOLOGY DEPARTMENT: General X-ray: Exam(s) Completed: Lower Extremity X- Ray(s): Knee, AP / Lat / Tunne / Merchant Left and Wt. Bearing PERIPHERAL IV DATA: Not applicable SIGNED BY: RT Bernardo(R) October 28, 2024 1:46 PM documented in this encounterThe [facility]03-[facility]-2025 Hospital Discharge instructions Patient Education 10/27/2024 01:20:13 Asthma, Adult Asthma, Adult Asthma is a long-term (chronic) condition that causes recurrent episodes in which the lower airwaysin the lungs become tight and narrow. The narrowing is caused by inflammation and tightening of thesmooth muscle around the lower airways. Asthma episodes, also called asthma attacks or asthma flares, may cause coughing, making high-pitched whistling sounds when you breathe, most often when you breathe out (wheezing), shortness of breath, and chest pain. The airways may produce extra mucus caused by the inflammation and irritation. During an attack, it can be difficult to breathe. Asthma attacks can range from minor to life-threatening. Asthma cannot be cured, but medicines and lifestyle changes can help control it and treat acute attacks. It is important to keep your asthma well controlled so the condition does not interfere with your daily life. What are the causes? This condition is believed to be caused by inherited (genetic) and environmental factors, but its exact cause is not known. What can trigger an asthma attack? Many things can bring on an asthma attack or make symptoms worse. These triggers are different for every person. Common triggers include: Allergens and irritants like mold, dust, pet dander, cockroaches, pollen, air pollution, and chemical odors. Cigarette smoke. Weather changes and cold air. Stress and strong emotional responses such as crying or laughing hard. Certain medications such as aspirin or beta blockers. Infections and inflammatory conditions, such as the flu, a cold, pneumonia, or inflammation of the nasal membranes (rhinitis). Gastroesophageal reflux disease (GERD). What are the signs or symptoms? Symptoms may occur right after exposure to an asthma trigger or hours later and can vary by person.Common signs and symptoms include: Wheezing. Trouble breathing (shortness of breath). Excessive nighttime or copper miner blasting coughing. Chest tightness. Tiredness (fatigue) with minimal activity. Difficulty talking in complete sentences. Poor exercise tolerance. How is this diagnosed? This condition is diagnosed based on: A physical exam and your medical history. Tests, which may include: ?Lung function studies to evaluate the flow of air in your lungs. ?Allergy tests. ?Imaging tests, such as X-rays. How is this treated? There is no cure, but symptoms can be controlled with proper treatment. Treatment usually involves: Identifying and avoiding your asthma triggers. Inhaled medicines. Two types are commonly used to treat asthma, depending on severity: ?Controller medicines. These help prevent asthma symptoms from occurring. They are taken every day. ?Fast-acting reliever or rescue medicines. These quickly relieve asthma symptoms. They are used as needed and provide short-term relief. Using other medicines, such as: ?Allergy medicines, such as antihistamines, if your asthma attacks are triggered by allergens. ?Immune medicines (immunomodulators). These are medicines that help control the immune system. Using supplemental oxygen. This is only needed during a severe episode. Creating an asthma action plan. An asthma action plan is a written plan for managing and treating your asthma attacks. This plan includes: ?A list of your asthma triggers and how to avoid them. ?Information about when medicines should be taken and when their dosage should be changed. ?Instructions about using a device called a peak flow meter. A peak flow meter measures how well the lungs are working and the severity of your asthma. It helps you monitor your condition. Follow these instructions at home: Take gada-lis-mqtgowc and prescription medicines only as told by your health care provider. Stay up to date on all vaccinations as recommended by your healthcare provider, including vaccines for the flu and pneumonia. Use a peak flow meter and keep track of your peak flow readings. Understand and use your asthma action plan to address any asthma flares. Do not smoke or allow anyone to smoke in your home. Contact a health care provider if: You have wheezing, shortness of breath, or a cough that is not responding to medicines. Your medicines are causing side effects, such as a rash, itching, swelling, or trouble breathing. You need to use a reliever medicine more than 2 3 times a week. Your peak flow reading is still at 50 79% of your personal best after following your action plan for 1 hour. You have a fever and shortness of breath. Get help right away if: You are getting worse and do not respond to treatment during an asthma attack. You are short of breath when at rest or when doing very little physical activity. You have difficulty eating, drinking, or talking. You have chest pain or tightness. You develop a fast heartbeat or palpitations. You have a bluish color to your lips or fingernails. You are light-headed or dizzy, or you faint. Your peak flow reading is less than 50% of your personal best. You feel too tired to breathe normally. These symptoms may be an emergency. Get help right away. Call 911. Do not wait to see if the symptoms will go away. Do not drive yourself to the hospital. Summary Asthma is a long-term (chronic) condition that causes recurrent episodes in which the airways become tight and narrow. Asthma episodes, also called asthma attacks or asthma flares, can cause coughing, wheezing, shortness of breath, and chest pain. Asthma cannot be cured, but medicines and lifestyle changes can help keep it well controlled and prevent asthma flares. Make sure you understand how to avoid triggers and how and when to use your medicines. Asthma attacks can range from minor to life-threatening. Get help right away if you have an asthma attack and do not respond to treatment with your usual rescue medicines. This information is not intended to replace advice given to you by your health care provider. Make sure you discuss any questions you have with your health care provider. Document Revised: 05/09/2022 Document Reviewed: 04/30/2022 [employer] Patient Education 2023 [employer]. 10/27/2024 01:20:13 Asthma Attack Asthma Attack Asthma attack, also called asthma flare or acute bronchospasm, is the sudden narrowing and tightening of the lower airways (bronchi) in the lungs, that can make it hard to breathe. The narrowing is caused by inflammation and tightening of the smooth muscle that wraps around the lower airways in thelungs. Asthma attacks may cause coughing, high-pitched whistling sounds when you breathe, most often when you breathe out (wheezing), trouble breathing (shortness of breath), and chest pain. The airways mayproduce extra mucus caused by the inflammation and irritation. During an asthma attack, it can be di fficult to breathe. It is important to get treatment right away. Asthma attacks can range from minor to life-threatening. What are the causes? Possible causes or triggers of this condition include: Household allergens like dust, pet dander, and cockroaches. Mold and pollen from trees or grass. Air pollutants such as household finish cleaner, aerosol sprays, strong odors, and smoke of any kind. Weather changes and cold air. Stress or strong emotions such as crying or laughing hard. Exercise or activity that requires a lot of energy. Certain medicines or medical conditions such as: ?Aspirin or beta-blockers. ?Infections or inflammatory conditions, such as a flu (influenza), a cold, pneumonia, or inflammation of the nasal membranes (rhinitis). ?Gastroesophageal reflux disease (GERD). GERD is a condition in which stomach acid backs up into your esophagus and spills into your trachea (windpipe), which can irritate your airways. What are the signs or symptoms? Symptoms of this condition include: Wheezing. Excessive coughing. This may only happen at night. Chest tightness or pain. Shortness of breath. Difficulty talking in complete sentences. Feeling like you cannot get enough air, no matter how hard you breathe (air hunger). How is this diagnosed? This condition may be diagnosed based on: A physical exam and your medical history. Your symptoms. Tests to check for other causes of your symptoms or other conditions that may have triggered your asthma attack. These tests may include: ?A chest X-ray. ?Blood tests. ?Lung function studies (spirometry) to evaluate the flow of air in your lungs. How is this treated? Treatment for this condition depends on the severity and cause of your asthma attack. For mild attacks, you may receive medicines through a hand-held inhaler (metered dose inhaler or MDI) or through a device that turns liquid medicine into a mist (nebulizer). These medicines include: ?Quick relief or rescue medicines that quickly relax the airways and lungs. ?Long-acting medicines that are used daily to prevent (control) your asthma symptoms. For moderate or severe attacks, you may be treated with steroid medicines by mouth or through an IVinjection at the hospital. For severe attacks, you may need oxygen therapy or a breathing machine (ventilator). If your asthma attack was caused by an infection from bacteria, you will be given antibiotic medicines. Follow these instructions at home: Medicines Take ziwx-bvr-xqpmccs and prescription medicines only as told by your health care provider. If you were prescribed an antibiotic medicine, take it as told by your health care provider. Do notstop using the antibiotic even if you start to feel better. Tell your doctor if you are or may be to make sure your asthma medicine is safe to use during . Avoiding triggers Keep track of things that trigger your asthma attacks. Avoid exposure to these triggers. Do not use any products that contain nicotine or tobacco. These products include cigarettes, chewing tobacco, and vaping devices, such as e-cigarettes. If you need help quitting, ask your health careprovider. When there is a lot of pollen, air pollution, or humidity, keep windows closed and use an air conditioner or go to places with air conditioning. Asthma action plan Work with your health care provider to make a written plan for managing and treating your asthma attacks (asthma action plan). This plan should include: ?A list of your asthma triggers and how to avoid them. ?A list of symptoms that you may have during an asthma attack. ?Information about which medicine to take, when to take the medicine, and how much of the medicine to take. ?Information to help you understand your peak flow measurements. ?Daily actions that you can take to control your asthma symptoms. ?Contact information for your health care providers. If you have an asthma attack, act quickly. Follow the emergency steps on your written asthma actionplan. This may prevent you from needing to go to the hospital. Talk to a family member or close friend about your asthma action plan and who to contact in case you need help. General instructions Avoid excessive exercise or activity until your asthma attack goes away. Stay up to date on all your vaccines, such as flu and pneumonia vaccines. Keep all follow-up visits. This is important. Contact a health care provider if: You have followed your action plan for 1 hour and your peak flow reading is still at 50 79% of yourpersonal best. This is in the yellow zone, which means caution. You need to use your quick reliever medicine more frequently than normal. Your medicines are causing side effects, such as rash, itching, swelling, or trouble breathing. Your symptoms do not improve after taking medicine. You have a fever. Get help right away if: Your peak flow reading is less than 50% of your personal best. This is in the red zone, which means danger. You develop chest pain or discomfort. Your medicines no longer seem to be helping. You are coughing up bloody mucus. You have a fever and your symptoms suddenly get worse. You have trouble swallowing. You feel very tired, and breathing becomes tiring. These symptoms may be an emergency. Get help right away. Call 911. Do not wait to see if the symptoms will go away. Do not drive yourself to the hospital. Summary Asthma attacks are caused by narrowing or tightness in air passages, which causes shortness of breath, coughing, and wheezing. Many things can trigger an asthma attack, such as allergens, weather changes, exercise, strong odors, and smoke of any kind. If you have an asthma attack, act quickly. Follow the emergency steps on your written asthma actionplan. Get help right away if you have severe trouble breathing, chest pain, or fever, or if your home medicines are no longer helping with your symptoms. This information is not intended to replace advice given to you by your health care provider. Make sure you discuss any questions you have with your health care provider. Document Revised: 05/13/2022 Document Reviewed: 05/13/2022 [employer] Patient Education 2023 [employer]. Follow Up Care 10/26/2024 21:12:18 With:Bernice North Address: [address] [place] [address]- [phone] Business (1) When:10/30/2024 Comments:Make sure to follow-up with Dr. North, the pulmonary doctor as discussed. Return to the emergency room if your shortness of breath recurs or any new symptoms. With:BRIGIDA COREA Address: [address] [place] [address]- [phone] Business (1) When:Within 3 Day(s) [facility] 03-25-2025 NoteED Patient Education Note Pulmonary Medicine Asthma, Adult Asthma is a long-term (chronic) condition that causes recurrent episodes in which the lower airwaysin the lungs become tight and narrow. The narrowing is caused by inflammation and tightening of thesmooth muscle around the lower airways. Asthma episodes, also called asthma attacks or asthma flares, may cause coughing, making high-pitched whistling sounds when you breathe, most often when you breathe out (wheezing), shortness of breath, and chest pain. The airways may produce extra mucus caused by the inflammation and irritation. During an attack, it can be difficult to breathe. Asthma attacks can range from minor to life-threatening. Asthma cannot be cured, but medicines and lifestyle changes can help control it and treat acute attacks. It is important to keep your asthma well controlled so the condition does not interfere with your daily life. What are the causes? This condition is believed to be caused by inherited (genetic) and environmental factors, but its exact cause is not known. What can trigger an asthma attack? Many things can bring on an asthma attack or make symptoms worse. These triggers are different for every person. Common triggers include: ??? Allergens and irritants like mold, dust, pet dander, cockroaches, pollen, air pollution, and chemical odors. ??? Cigarette smoke. ??? Weather changes and cold air. ??? Stress and strong emotional responses such as crying or laughing hard. ??? Certain medications such as aspirin or beta blockers. ??? Infections and inflammatory conditions, such as the flu, a cold, pneumonia, or inflammation of the nasal membranes (rhinitis). ??? Gastroesophageal reflux disease (GERD). What are the signs or symptoms? Symptoms may occur right after exposure to an asthma trigger or hours later and can vary by person.Common signs and symptoms include: ??? Wheezing. ??? Trouble breathing (shortness of breath). ??? Excessive nighttime or copper miner blasting coughing. ??? Chest tightness. ??? Tiredness (fatigue) with minimal activity. ??? Difficulty talking in complete sentences. ??? Poor exercise tolerance. How is this diagnosed? This condition is diagnosed based on: ??? A physical exam and your medical history. ??? Tests, which may include: ? Lung function studies to evaluate the flow of air in your lungs. ? Allergy tests. ? Imaging tests, such as X-rays. How is this treated? There is no cure, but symptoms can be controlled with proper treatment. Treatment usually involves: ??? Identifying and avoiding your asthma triggers. ??? Inhaled medicines. Two types are commonly used to treat asthma, depending on severity: ? Controller medicines. These help prevent asthma symptoms from occurring. They are taken every day. ? Fast-acting reliever or rescue medicines. These quickly relieve asthma symptoms. They are used asneeded and provide short-term relief. ??? Using other medicines, such as: ? Allergy medicines, such as antihistamines, if your asthma attacks are triggered by allergens. ? Immune medicines (immunomodulators). These are medicines that help control the immune system. ??? Using supplemental oxygen. This is only needed during a severe episode. ??? Creating an asthma action plan. An asthma action plan is a written plan for managing and treating your asthma attacks. This plan includes: ? A list of your asthma triggers and how to avoid them. ? Information about when medicines should be taken and when their dosage should be changed. ? Instructions about using a device called a peak flow meter. A peak flow meter measures how well the lungs are working and the severity of your asthma. It helps you monitor your condition. Follow these instructions at home: ??? Take [id number] and prescription medicines only as told by your health care provider. ??? Stay up to date on all vaccinations as recommended by your healthcare provider, including vaccines for the flu and pneumonia. ??? Use a peak flow meter and keep track of your peak flow readings. ??? Understand and use your asthma action plan to address any asthma flares. ??? Do not smoke or allow anyone to smoke in your home. Contact a health care provider if: ??? You have wheezing, shortness of breath, or a cough that is not responding to medicines. ??? Your medicines are causing side effects, such as a rash, itching, swelling, or trouble breathing. ??? You need to use a reliever medicine more than 2?3 times a week. ??? Your peak flow reading is still at 50?79% of your personal best after following your action plan for 1 hour. ??? You have a fever and shortness of breath. Get help right away if: ??? You are getting worse and do not respond to treatment during an asthma attack. ??? You are short of breath when at rest or when doing very little physical activity. ??? You have difficulty eating, drinking, or talking. (more content not included)...[facility]03-24-2025 Evaluation + Plan note Extracted from: Title:ED Note Author:Paulina Griffith, Lyndon Chew te:10/26/24 1. Acute asthma exacerbation (J45.901: Unspecified asthma with (acute) exacerbation) Orders: albuterol, 2.5 mg, 3 mL, NEB, q6hr wheezing/shortness of breath, 25 EA, Refill(s) 0, [facility], 160, cm, 10/26/24 21:21:00 EDT, Height/Length Dosing, 105, kg, 10/26/24 21:21:00 EDT, Weight Dosing albuterol-ipratropium, 3 mL, Soln-Inh, Inhalation, Once, Stop date 10/26/24 23:55:00 EDT, STAT, Start date 10/26/24 23:55:00 EDT albuterol-ipratropium, 3 mL, Soln-Inh, Inhalation, Once, Stop date 10/26/24 22:23:00 EDT, STAT, Start date 10/26/24 22:23:00 EDT magnesium sulfate + Generic Diluent 50 mL, 2 gram = 50 mL, IV Piggyback, Once, Stop date 10/26/24 22:23:00 EDT, STAT, Start date 10/26/24 22:23:00 EDT, 100 mL/hr, Infuse over 30 minute(s), 10/26/24 22:23:00 EDT methylPREDNISolone, 125 mg = 2 mL, Injection, IV Push, Once, Stop date 10/26/24 22:23:00 EDT, STAT, Start date 10/26/24 22:23:00 EDT, 10/26/24 22:23:00 EDT predniSONE, 50 mg = 1 tab(s), Oral, Daily, X 5 day(s), # 5 tab(s), Refills(s) 0, Pharmacy: [facility], 160, cm, 10/26/24 21:21:00 EDT, Height/Length Dosing, 105, kg, 10/26/24 21:21:00 EDT, Weight Dosing B-Type Natriuretic Peptide Basic Metabolic Panel CBC w/ Auto Diff CTA Chest D-Dimer ECG 12 Lead Adult ED Cardiac Monitoring eGFR Magnesium Level Oxygen Saturation Oxygen Therapy PT & PTT Saline Lock Insert Troponin 0 Hr. Troponin 1 Hr. XR Chest 2 Views Future Appointments Appointment Date:12/23/2024 02:15:00 PM Scheduled Provider:No DESIR MD Location:[facility] hospital Appointment Type:URO Office Visit Future Scheduled Tests Radiology* XR Abdomen 1 View 09/16/24 [facility] 03-10-2025 NoteHNO ID: [id number] Author: RENE DEVINE RT(R) Service: ? Author Type: Technologist Type: Progress Notes Filed: 10/12/2024 14:23 Note Text: Radiology Service Progress Note PATIENT NAME: Lisa Mendez DATE OF SERVICE: October 12, 2024 TIME: 2:23 PM PATIENT IDENTITY VERIFICATION COMPLETED USING TWO (2) IDENTIFIERS: Name and Date of confirmed by patient verbally. FALL SCREENING: Has the patient had 2 falls in the last year or 1 fall with injury or currently using an Ambulatory Assistive Device (Walker, Cane, Wheelchair, Crutches, etc.)? No PATIENT GENDER DATA: Assigned female at . status: : No status: NO. PATIENT RELEVANT IMPLANT DATA REVIEWED: Not Applicable PATIENT PRESENTS WITH AN IMPLANTABLE OR ATTACHED CADD OPERATOR: No RADIOLOGY DEPARTMENT: General X-ray: Exam(s) Completed: Upper Extremity X-Ray(s): Hand, right PERIPHERAL IV DATA: Not applicable SIGNED BY: RT Jm(R) October 12, 2024 2:23 [facility]03-10-2025 NoteHNO ID: [id number] Author: KWAME MCNEIL MD Service: ? Author Type: Physician Type: Progress Notes Filed: 10/12/2024 14:58 Note Text: Lisa Mendez is a patient of Brigida Nobles CNP. CHIEF COMPLAINT: Lisa Mendez is a 49 year old female who presents today for follow up of left hand. HISTORY OF PRESENT ILLNESS: PAIN EVALUATION 10/10/2024 4913 Pain Level: 8 Pain Location: Hand-Left Description: Aching;Cramping;Numbness;Sharp;Shooting;Tenderness Duration Units: Months Frequency: Intermittent Intervention/Comfort measure: Splinting Interval history: She is here for pain at the base of the left thumb. Unfortunately the left thumb first dorsal cortisone injection I gave her last time did not give long-lasting results. She is painful at the first dorsal compartment and base of the thumb. To review, she has previously undergone a left thumb CMC arthroplasty with FCR, a soft tissue interposition with ECRL at the base of the first and second metacarpals and then finally a tight rope suspension plasty as well. REVIEW OF SYMPTOMS: Constitutional: Fever/chills: No Cardiovascular: Chest Pain: No Musculoskeletal: as noted in the HPI Neurologic: as noted in the HPI SOCIAL HISTORY: Tobacco user? No PHYSICAL EXAMINATION: Vitals: There were no vitals taken for this visit. Body Habitus: Well nourished and no acute distress Orientation: Normal, oriented to person, place and time Psych: Normal Skin: Color, texture, turgor normal. No rashes or lesions Sensation: Sensation to light touch is grossly normal bilaterally Specific MSK Exam The left thumb is examined. Multiple well-healed incisions about the thumb and dorsal radial hand. Tender at the first CMC with crepitus. 15 degrees of MP hyperextension. No pain or crepitus at the thumb A1 polly. Tender at the first dorsal compartment. IMAGING: No imaging was performed today. CLINICAL IMPRESSION / ASSESSMENT: (Z98.890) H/O thumb surgery (primary encounter diagnosis) (M65.4) De Quervain's tenosynovitis, left (M18.12) Primary osteoarthritis of first carpometacarpal joint of left hand PLAN: At this point she is interested in surgical intervention as protracted conservative treatment has failed. I can offer Left thumb revision carpometacarpal arthroplasty with slip of abductor pollicis longus tendon and internal brace with suture anchors; left first dorsal compartment release; extensor pollicis brevis transfer and thumb metacarpal phalangeal pinning. Surgery and postoperative course were outlined in detail. All questions answered. Will continue to monitor patient for H/o thumb surgery (primary encounter diagnosis) De quervain's tenosynovitis, left Primary osteoarthritis of first carpometacarpal joint of left hand, patient to schedule visit as per follow up discussed. Kwame Mcneil MD This document has been created with the use of voice recognition technology. It may contain inaccuracies: misspellings, inaccurate syntax or word sense that escaped review.[facility]03-10-2025 History of Present illness Narrative* Kwame Mcneil MD - 10/12/2024 2:00 PM EDT Images from the original note were not included. Lisa Mendez is a patient of Brigida Nobles CNP. CHIEF COMPLAINT: Lisa Mendez is a 49 year old female who presents today for follow up of left hand. HISTORY OF PRESENT ILLNESS: PAIN EVALUATION 10/10/2024 1881 Pain Level: 8 Pain Location: Hand-Left Description: Aching;Cramping;Numbness;Sharp;Shooting;Tenderness Duration Units: Months Frequency: Intermittent Intervention/Comfort measure: Splinting Interval history: She is here for pain at the base of the left thumb. Unfortunately the left thumb first dorsal cortisone injection I gave her last time did not give long-lasting results. She is painful at the first dorsal compartment and base of the thumb. To review, she has previously undergone a left thumb CMC arthroplasty with FCR, a soft tissue interposition with ECRL at the base of the first and second metacarpals and then finally a tight rope suspension plasty as well. REVIEW OF SYMPTOMS: Constitutional: Fever/chills: No Cardiovascular: Chest Pain: No Musculoskeletal: as noted in the HPI Neurologic: as noted in the HPI SOCIAL HISTORY: Tobacco user? No PHYSICAL EXAMINATION: Vitals: There were no vitals taken for this visit. Body Habitus: Well nourished and no acute distress Orientation: Normal, oriented to person, place and time Psych: Normal Skin: Color, texture, turgor normal. No rashes or lesions Sensation: Sensation to light touch is grossly normal bilaterally Specific MSK Exam The left thumb is examined. Multiple well-healed incisions about the thumb and dorsal radial hand. Tender at the first CMC with crepitus. 15 degrees of MP hyperextension. No pain or crepitus at the thumb A1 polly. Tender at the first dorsal compartment. IMAGING: No imaging was performed today. CLINICAL IMPRESSION / ASSESSMENT: (Z98.890) H/O thumb surgery (primary encounter diagnosis) (M65.4) De Quervain's tenosynovitis, left (M18.12) Primary osteoarthritis of first carpometacarpal joint of left hand PLAN: At this point she is interested in surgical intervention as protracted conservative treatment has failed. I can offer Left thumb revision carpometacarpal arthroplasty with slip of abductor pollicis longus tendon and internal brace with suture anchors; left first dorsal compartment release; extensorpollicis brevis transfer and thumb metacarpal phalangeal pinning. Surgery and postoperative course were outlined in detail. All questions answered. Will continue to monitor patient for H/o thumb surgery (primary encounter diagnosis) De quervain's tenosynovitis, left Primary osteoarthritis of first carpometacarpal joint of left hand, patient to schedule visit as per follow up discussed. Kwame Mcneil MD This document has been created with the use of voice recognition technology. It may contain inaccuracies: misspellings, inaccurate syntax or word sense that escaped review. [facility]The [facility]20[place] [address] Colonoscopy Procedure Report Signed Patient: Lisa Mendez MR#: [id number] : 1975 Acct:[id number] Age/Sex: 49 / F Adm Date: 5 Loc: Room: Type: [facility] Attending Dr: Annmarie Palmer DO Copies to: Brigida Corea APRN, CYTOGENETICS LABORATORY MANAGER-C Annmarie Palmer DO~ Colonoscopy Date/Provider 10/01/2024 Annmarie Palmer DO Narrative Procedure: Colonoscopy with jumbo forceps polypectomy Indication: Irregular bowel movements/primarily constipation. No prior colonoscopy Pre-operative diagnosis: Irregular bowel movements/primarily constipation. Post-operative diagnosis: one polyp removed, small internal hemorrhoids, otherwise normal colon andTI Sedation: propofol per anesthesia dept O2 oximetry, hemodynamic monitoring was performed pre, during, and post procedure. Patient was identified, H&P completed, patient was given full explanation of the procedure as well as associatedrisks and written consent wasobtained prior to procedure. Patient expressed complete understanding of the procedure as well as alternatives to the procedure and to anesthesia and agreed to proceed with the procedure as indicated. Patient was immediately reassessed prior to IV sedation. Under IV sedation, patient was placed in the left lateral decubitus position. Digital rectal exam was performed and normal. Colonoscope was inserted and passed proximally to the cecum, which was identified by the ileocecal valve, appendiceal orifice and cecal floor. Colonoscope was slowly withdrawnwith the findings as below. Presto bowel prep score was adequate. Findings: Terminal ileum: Normal Cecum: Normal. Ascending colon: Normal. Hepatic flexure: Normal. Transverse colon: Normal. Splenic flexure: Normal. Descending colon: 5 mm sessile polyp removed with jumbo forceps and sent to pathology Sigmoid colon: Normal. Rectum: Normal. Retroflexed views: Rectum did show small internal hemorrhoids. Biopsy taken: Yes Complications: None EBL: Minimal Recommendations: -Repeat colonoscopy in 5 years -Follow up pathology -Fiber rich diet -MiraLAX once daily -Follow up in the office -Follow up with PCP Following a period of recovery, patient was seen and given full explanation of the procedure. Patient tolerated the procedure well and will be discharged in satisfactory, stable condition. Annmarie Palmer DO Documented By: Annmarie Palmer DO 10/01/24 1102 Signed By: 10/01/24 1135 [facility]02-27-2025 [facility] [address] [place] [address] EGD Procedure Note Signed Patient: Lisa Mendez MR#: [id number] : 1975 Acct:[id number] Age/Sex: 49 / F Adm Date: 5 Loc: Room: Type: [facility] Attending Dr: Annmarie Palmer DO Copies to: Brigida Corea APRN, CYTOGENETICS LABORATORY MANAGER-C Annmarie Palmer DO~ Esophagogastroduodenoscopy Date/Provider Date: 10/01/2024 Annmarie Palmer DO Narrative Narrative: Procedure: EGD with biopsy Indication: Nausea, vomiting, epigastric pain Pre-operative diagnosis: Nausea, vomiting, epigastric pain Post-operative diagnosis: Severe gastritis, otherwise normal EGD status post small bowel gastric biopsies obtained Sedation: propofol per anesthesia dept O2 oximetry, hemodynamic monitoring was performed pre, during, and post procedure. Patient was identified, H&P completed, patient was given full explanation of the procedure as well as associatedrisks and written consent wasobtained prior to procedure. Patient expressed complete understanding of the procedure as well as alternatives to the procedure and to anesthesia and agreed to proceed with the procedure as indicated. Patient was immediately reassessed prior to IV sedation. Following IV sedation, patient was placed in the left lateral decubitus position. Bite block was inserted. Endoscope was passed through the mouth, into the esophagus. Endoscope was advanced into the stomach through the pyloricchannel and into the 2nd portion of duodenum by direct visualization. Endoscopewas withdrawn into the stomach and retroflexion was performed. The endoscope was straightened,the stomach was decompressed. Endoscope was withdrawn into the esophagus then completely removed with the findings as below. Findings: DUODENUM: The bulb and descending portion appeared normal. Biopsies were obtained from the small bowel for histology and to rule out Celiac disease. STOMACH: There was severe erythema in the entire examined stomach with adherent heme material. Retroflexed views was unremarkable. Stomach otherwise unremarkable. Biopsies were obtained from the gastric antrum and body for histology and to rule out H. Pylori. ESOPHAGUS: GE junction (upper margin of gastric folds) was at 38 cm from incisors and regular. Mucosa appeared normal. Biopsy taken: Yes Complications: None EBL: Minimal Recommendations: -Follow up pathology -Resume normal diet -Start on PPI twice daily x 3 months and then once daily thereafter -Lifestyle modifications for GERD -Follow up in the office -Follow up with PCP Following a period of recovery, patient was seen and given full explanation of the procedure. Patient tolerated the procedure well and will be discharged in satisfactory, stable condition. Annmarie Palmer DO Documented By: Annmarie Palmer DO 10/01/24 1102 Signed By: 10/01/24 1117 [facility]02-27-2025 [place] [address] Gastroenterology H&P Signed Patient: Lisa Mendez MR#: [id number] : 1975 Acct:[id number] Age/Sex: 49 / F Adm Date: 5 Loc: Room: Type: [facility] Attending Dr: Annmarie Palmer DO Copies to: Brigida Corea APRN, CYTOGENETICS LABORATORY MANAGER-C Annmarie Palmer DO~ Date of Service: 10/01/2024 HISTORY & PHYSICAL: Patient's history with special attention to the cardiovascular, pulmonary systems and the current problem was reviewed with the patient immediately prior to the procedure. Present medications and doses reviewed in the EMR. Allergies and pertinent laboratory tests were also re viewedat this time in the EMR. The physical examination, as below, was then performed. Indication, assessment and HPI: 49-year-old female who presents for EGD and colonoscopy for nausea,vomiting, epigastric pain, irregular bowel movements- primarily constipation. No prior EGD or colonoscopy. Family history of GI malignancy? No PHYSICAL EXAMINATION General appearance: cooperative, NAD Skin: No jaundice, no rash or lesions Head: NCAT Eyes: Anicteric Neck: Supple Lungs: Normal respiratory effort, no use of accessory muscles Abdomen: Soft, nondistended Neuro: No focal deficits, Ox3. REVIEW OF SYSTEMS Constitutional: Denies malaise, fevers Cardiovascular: Denies chest pain, palpitations Respiratory: Denies shortness of breath, wheezing Gastrointestinal: As per HPI Genitourinary: Denies dysuria, polyuria Musculoskeletal: Denies joint swelling, joint stiffness Neurological: Denies confusion, numbness, tingling Endocrine: Denies fatigue Written informed consent obtained from the patient. Risks (including but not limited to perforation, infection, bloating, bleeding, need for emergent surgeryand loss of life), benefits and alternatives explained and questions answered. The patient verbalized understanding. Based on history patient is an appropriate candidate for the procedure. Annmarie Palmer DO Present medication and doses reviewed in the EMR Documented By: Annmarie Palmer DO 10/01/24 1101 Signed By: 10/01/24 1102 [facility]02-12-2025 Evaluation + Plan note Future Scheduled Tests Radiology* XR Abdomen 1 View 09/16/24 [facility] [id number] Telephone encounter Note* Telephone Encounter - Alma Kirby - 09/15/2024 4:27 PM EST Gp ref and 4 hr ges in scanned docs Intake needed [facility]02-11-2025 Miscellaneous Notes* Telephone Encounter - Alma Kirby - 09/15/2024 4:27 PM EST Gp ref and 4 hr ges in scanned docs [facility]ake [facility] History of Present illness Narrative* Delroy Merino DPM - 09/15/2024 10:40 AM EST Patient: Lisa Mendez : 1975 PCP: Noms Provider MD Viviana SUBJECTIVE This is a 49 y.o. female that presents today for a follow up of right 3rd toe fx of 5 months duration. Patient states she stubbed her toe and has had continued pain to the area has tried anti-inflammatories with positive improvement and minimal to no pain to her right 3rd toe with some swelling anddoes take anti- inflammatories with positive improvement and rates it up to a 7 /10. She was to return to normal shoe gear. Patient presents today for follow up of capsulitis and synovitis to the left medial tibiotalar joint capsule Currently they rate their pain on a 1-10 scale a 6 States prior treatments of 2nd steroid injection and nsaids with intermittent relief States pain is aggrevated with WB. Pt also has hx of left PT tendonitis and has been using ankle brace with minimal improvement. Patient has also been using heat molded inserts with minimal improvement Allergies: Allergies Allergen Reactions Penicillins Hives, Itching, Rash and Unknown Other reaction(s): itching Ropinirole Hives Topiramate Hives, Rash and Unknown Aloe Vera Unknown Baclofen Unknown and Swelling Other reaction(s): Other: See Comments Cephalexin GI intolerance, Nausea Only and Unknown Other reaction(s): GI Upset, Vomiting Ciprofloxacin Hcl Unknown Ciprofloxacin-Ciproflox Hcl Er Diclofenac Unknown and Other Stomach pain and cramping Duloxetine Fatigue Menthol Unknown Other reaction(s): Other: See Comments Metformin Hives Morphine Nausea And Vomiting and GI intolerance Naproxen Unknown Sumatriptan Unknown Tramadol Unknown Vitamin E Unknown Azithromycin Itching, Rash and Unknown Cyclobenzaprine Hives, Unknown and Rash Other reaction(s): rash, itching, Unknown, Unknown Gabapentin Hives, Rash and Unknown Other reaction(s): Other: See Comments, Unknown Ibuprofen Rash Nsaids Hives, Unknown and Rash Tizanidine Rash Zonisamide Rash Past Medical History: Past Medical History: Diagnosis Date Allergies Anxiety Arthritis Asthma ([facility]) Back pain 06/17/2017 Backache 04/05/2015 Bipolar 1 disorder ([facility]) Bronchitis Chicken pox Chronic back pain DDD (degenerative disc disease), lumbar 06/17/2017 Depression ([facility]) Diabetes mellitus ([facility]) Disturbance of skin sensation 04/05/2015 Insomnia 01/06/2018 Kidney stone Lumbar radiculopathy 01/06/2018 Lumbar spondylosis 01/06/2018 Measles Migraine ([facility]) Muscle weakness 04/05/2015 Overactive bladder Pain in limb 03/04/2015 Pneumonia Radicular pain 03/21/2018 Radiculopathy 03/04/2015 Restless legs syndrome Scarlet fever Tonsillitis Medications: Current Outpatient Medications: Alcohol Swabs (B-D SINGLE USE SWABS REGULAR) pads, USE SWAB EXTERNALLY DIRECTED 4 TIMES DAILY, Disp: , Rfl: Caplyta 10.5 MG capsule, Take 1 capsule by mouth Daily, Disp: , Rfl: carBAMazepine (TEGretol) 200 MG tablet, Take 200 mg by mouth in the morning and 200 mg before bedtime., Disp: , Rfl: carbidopa-levodopa (Sinemet) 25-100 MG tablet, Take 1 tablet by mouth in the morning and 1 tablet before bedtime., Disp: , Rfl: cholecalciferol 1.25 MG (76289 UT) capsule, Take 50,000 Units by mouth 1 (one) time per week, Disp:, Rfl: clobetasol (Temovate) 0.05 % external solution, Apply to scalp every day prn flares, Disp: 50 mL, Rfl: 11 Clobetasol Propionate 0.05 % shampoo, LATHER ON WET HAIR TOPICALLY, LEAVE ON FOR 5 MINUTES THEN RINSE. USE 2 TO 3 TIMES A WEEK, Disp: 118 mL, Rfl: 11 Continuous Blood Gluc Program Director/Music Director (Dexcom G7 Program Director/Music Director) device, USE DIRECTED, Disp: , Rfl: Continuous Blood Gluc Sensor (Dexcom G7 Sensor) misc, USE DIRECTED, Disp: , Rfl: cyanocobalamin (Vitamin B-12) 1000 MCG tablet, Take 1,000 mcg by mouth in the morning., Disp: , Rfl: glipiZIDE (Glucotrol) 5 MG tablet, 1 (one) time each day at the same time., Disp: , Rfl: ibuprofen 800 MG tablet, TAKE 1 TABLET BY MOUTH EVERY 8 HOURS IF NEEDED FOR MODERATE PAIN (4-7 PAIN), Disp: , Rfl: nabumetone (Relafen) 500 MG tablet, Take 500 mg by mouth 2 (two) times a day as needed (Patient nottaking: Reported on 08/27/2024), Disp: , Rfl: pantoprazole (ProtoNix) 40 MG EC tablet, Take 40 mg by mouth Daily, Disp: , Rfl: potassium chloride CR (Klor-Con M20) 20 MEQ ER tablet, Take 1 tablet by mouth in the morning. (Patient not taking: Reported on 08/27/2024), Disp: , Rfl: pramipexole (Mirapex) 0.125 MG tablet, Take 1 tablet (0.125 mg) by mouth in the morning and 1 tablet (0.125 mg) before bedtime., Disp: 60 tablet, Rfl: 1 pregabalin (Lyrica) 100 MG capsule, Take 100 mg by mouth in the morning and 100 mg before bedtime.,Disp: , Rfl: QUEtiapine (SEROquel) 25 MG tablet, Take 25 mg by mouth at bedtime (Patient taking differently: Take 50 mg by mouth at bedtime), Disp: , Rfl: Rimegepant Sulfate (Nurtec) 75 MG tablet dispersible, TAKE 1 TABLET BY MOUTH AT THE ONSET OF MIGRAINE Take no more than 1 dose in 48 hrs., Disp: 8 tablet, Rfl: 2 Trulicity 3 MG/0.5ML solution pen-injector, Administer the contents of one prefilled pen subcutaneously once weekly as directed, Disp: , Rfl: Social History: Social History Socioeconomic History Marital status: Spouse name: Not on file Number of children: Not on file Years of education: Not on file Highest education level: Not on file Occupational History Not on file Tobacco Use Smoking status: Former Types: Cigarettes Smokeless tobacco: Never Vaping Use Vaping status: Never Used Substance and Sexual Activity Alcohol use: Yes Comment: caffeine 1-2 cups per day; soda Drug use: Defer Sexual activity: Defer Other Topics Concern Not on file Social History Narrative Exercise: occasional Social Drivers of Health Financial Resource Strain: Not on file Food Insecurity: Food Insecurity Present (03/08/2023) [facility] Hunger Screening Within the past 12 months we worried whether our food would run out before we got money to buy more.: Sometimes True Within the past 12 months the food we bought just didn't last and we didn't have money to get more.: Sometimes True Transportation Needs: Not on file Physical Activity: Not on file Stress: Not on file Social Connections: Not on file Intimate Partner Violence: Not At Risk (06/04/2023) Received from [facility], [facility] Humiliation, Afraid, Rape, and Kick questionnaire Fear of Current or Ex-Partner: No Emotionally Abused: No Physically Abused: No Sexually Abused: No Housing Stability: Not on file ROS: Gastrointestinal: denies abdominal pain, ulcers, or changes in appetite or bowel habits with OTC nsaids Musculoskeletal: Positive generalized arthritis to joints and denies loss of strength. Positive history of back issues as well as total knee replacement Cardiovascular: denies CP, palpitations, irregular rhythms OBJECTIVE LE EXAM: DERM: Positive hair growth to b/l feet with good skin turgor noted. Negative openings in skin. Slight edema to the right 3rd digit VASC: Palpable pedal pulsed b/l with warm to cool tibia to toes b/l NEURO: Gross sensation intact digits 1-10 and b/l feet ORTHO: +5/5 DF/PF/IN/EV right, +5/5 DF/PF/IN/EV left. 20 degrees inversion and 10 degrees eversion STJ b/l. Ankle ROM less than 10 degrees b/l. Minimal pain on palpation to right 3rd PIPJ and proximal phalanx Positive pain on palpation left PT tendon near medial malleolar and distally Positive pain on palpation to medial aspect of the left ankle gutter and capsule Positive palpation to medial and lateral aspect of the right tibiotalar joint XRAY: XR ankle 3+ views right Imaging Result: Notable degenerative changes to the midfoot with notable plantar posterior calcaneal enthesophytes with degenerative changes sinus tarsi subtalar joint and minimal degenerative changes to the tibiotalar joint XR ankle 3+ views left Imaging Result: Notably degenerative changes to the midfoot with plantar and posterior calcaneal enthesophytes and diminished joint space to the sinus tarsi and subtalar joint and minimal changes to the left tibiotalar joint ASSESSMENT 1. Closed nondisplaced fracture of middle phalanx of lesser toe of right foot, initial encounter 2. Posterior tibial tendinitis of left leg 3. Other specified disorders of synovium, left ankle and foot 4. Contracture of right ankle 5. Contracture of left ankle 6. DJD (degenerative joint disease), ankle and foot, left 7. DJD (degenerative joint disease), ankle and foot, right PLAN Patient to continue with oral anti - inflammatories as needed for pain and recommended OTC medications such as tylenol or Ibuprofen Continue with inserts/ heat molded Patient is to receive a Jason style brace AFO to the left foot and ankle. Patient is to apply to ankle and foot and wear daily to increase activities of daily living including walking and work related activities while weight-bearing. Patient is to have AFO for life time and may need further braces in future every 5 years. Prescription for device given to patient today. Patient follow up post wearing brace after fabrication Delroy Merino DPM documented in this encounterSaint Alexius [id number] Nuclear medicine Diagnostic study [facility] [place] [address] Nuclear Medicine Report Signed Patient: Lisa Mendez MR#: [id number] : 1975 Acct:[id number] Age/Sex: 49 / F ADM Date: Loc: PA Room: Type: [facility] Attending Dr: Annmarie Palmer DO Copies to: DO Erik Nino Jr, DO~ Ordering Provider: Annmarie Palmer DO Date of Service: 09/09/24 PA/PA gastric emptying study: R11.2 - Nausea with vomiting, unspecified GASTRIC EMPTYING STUDY: CLINICAL HISTORY: Nausea vomiting for the past 3 years TECHNIQUE: Following the oral ingestion of 1 mCi Tc 99m labeled sulfur colloid mixed with egg, planar imaging of the abdomen was obtained. FINDINGS: At 30 minutes, 96% of the radiotracer remained within the stomach. At 1 hour, 92% of the radiotracer remained within the stomach. At 2 hours, 73% of the radiotracer remained within the stomach. At 3 hours, 39% of the radiotracer remained within the stomach. At 4 hours, 34% of the radiotracer remained within the stomach. PA/PA gastric emptying study IMPRESSION: SCINTIGRAPHIC EVIDENCE OF GASTROPARESIS. PER TECHNOLOGIST NOTES, THE PATIENT TAKES TRULICITY. Impression dictated by: Erik Gipson Jr., D.O.09/09/2024 11:54 AM Dictation Location: [facility]- Transcribed By: HARLAN 09/09/24 1154 Dictated By: Erik Gipson Jr, DO 09/09/24 1149 Signed By: 09/09/24 1154 [facility]01-28-2025 Evaluation note* Diagnosis Onset Date Resolution Status Admit Date Epigastric pain acute August 062024 1:20pm Irregular bowel habits acute [facility]2024 1:20pm Nausea & vomiting acute September 01, 2024 1:20pm Fall acute September 17, 2024 6:27pm Lumbar strain acute September 172024 6:27pm [facility] Work Phone: 1(189) 566-206401-28-2025 Evaluation note* Diagnosis Onset Date Resolution Status Admit Date Epigastric pain acute August 062024 1:20pm Irregular bowel habits acute [place] [facility] 2024 1:20pm Nausea & vomiting acute September 01, 2024 1:20pm Fall acute September 17, 2024 6:27pm Lumbar strain acute September 172024 6:27pm Rash and other nonspecific skin eruption acute September 17 6:27pm [facility] Work Phone: 1(186) 848-816401-28-2025 History of Present illness Narrative* Delroy Merino, NELIA - 09/01/2024 9:30 AM EST Patient: Lisa Mendez : 1975 PCP: Noms Provider MD Viviana SUBJECTIVE This is a 49 y.o. female that presents today for a follow up of right 3rd toe fx of 5 months duration. Patient states she stubbed her toe and has had continued pain to the area has tried anti-inflammatories with positive improvement and minimal to no pain to her right 3rd toe with some swelling anddoes take anti- inflammatories with positive improvement and rates it up to a 5/10. She was to return to normal shoe gear. Patient presents today for follow up of capsulitis and synovitis to the left medial tibiotalar joint capsule Currently they rate their pain on a 1-10 scale a 7 States prior treatments of steroid injection and nsaids with intermittent relief States pain is aggrevated with WB. Pt also has hx of left PT tendonitis and has been using ankle brace with minimal improvement. Allergies: Allergies Allergen Reactions Penicillins Hives, Itching, Rash and Unknown Other reaction(s): itching Ropinirole Hives Topiramate Hives, Rash and Unknown Aloe Vera Unknown Baclofen Unknown and Swelling Other reaction(s): Other: See Comments Cephalexin GI intolerance, Nausea Only and Unknown Other reaction(s): GI Upset, Vomiting Ciprofloxacin Hcl Unknown Ciprofloxacin-Ciproflox Hcl Er Diclofenac Unknown and Other Stomach pain and cramping Duloxetine Fatigue Menthol Unknown Other reaction(s): Other: See Comments Metformin Hives Morphine Nausea And Vomiting and GI intolerance Naproxen Unknown Sumatriptan Unknown Tramadol Unknown Vitamin E Unknown Azithromycin Itching, Rash and Unknown Cyclobenzaprine Hives, Unknown and Rash Other reaction(s): rash, itching, Unknown, Unknown Gabapentin Hives, Rash and Unknown Other reaction(s): Other: See Comments, Unknown Ibuprofen Rash Nsaids Hives, Unknown and Rash Tizanidine Rash Zonisamide Rash Past Medical History: Past Medical History: Diagnosis Date Allergies Anxiety Arthritis Asthma ([facility]) Back pain 06/17/2017 Backache 04/05/2015 Bipolar 1 disorder ([facility]) Bronchitis Chicken pox Chronic back pain DDD (degenerative disc disease), lumbar 06/17/2017 Depression ([facility]) Diabetes mellitus ([facility]) Disturbance of skin sensation 04/05/2015 Insomnia 01/06/2018 Kidney stone Lumbar radiculopathy 01/06/2018 Lumbar spondylosis 01/06/2018 Measles Migraine ([facility]) Muscle weakness 04/05/2015 Overactive bladder Pain in limb 03/04/2015 Pneumonia Radicular pain 03/21/2018 Radiculopathy 03/04/2015 Restless legs syndrome Scarlet fever Tonsillitis Medications: Current Outpatient Medications: Alcohol Swabs (B-D SINGLE USE SWABS REGULAR) pads, USE SWAB EXTERNALLY DIRECTED 4 TIMES DAILY, Disp: , Rfl: Caplyta 10.5 MG capsule, Take 1 capsule by mouth Daily, Disp: , Rfl: carBAMazepine (TEGretol) 200 MG tablet, Take 200 mg by mouth in the morning and 200 mg before bedtime., Disp: , Rfl: carbidopa-levodopa (Sinemet) 25-100 MG tablet, Take 1 tablet by mouth in the morning and 1 tablet before bedtime., Disp: , Rfl: cholecalciferol 1.25 MG (26053 UT) capsule, Take 50,000 Units by mouth 1 (one) time per week, Disp:, Rfl: clobetasol (Temovate) 0.05 % external solution, Apply to scalp every day prn flares, Disp: 50 mL, Rfl: 11 Clobetasol Propionate 0.05 % shampoo, LATHER ON WET HAIR TOPICALLY, LEAVE ON FOR 5 MINUTES THEN RINSE. USE 2 TO 3 TIMES A WEEK, Disp: 118 mL, Rfl: 11 Continuous Blood Gluc Program Director/Music Director (Dexcom G7 Program Director/Music Director) device, USE DIRECTED, Disp: , Rfl: Continuous Blood Gluc Sensor (Dexcom G7 Sensor) misc, USE DIRECTED, Disp: , Rfl: cyanocobalamin (Vitamin B-12) 1000 MCG tablet, Take 1,000 mcg by mouth in the morning., Disp: , Rfl: glipiZIDE (Glucotrol) 5 MG tablet, 1 (one) time each day at the same time., Disp: , Rfl: ibuprofen 800 MG tablet, TAKE 1 TABLET BY MOUTH EVERY 8 HOURS IF NEEDED FOR MODERATE PAIN (4-7 PAIN), Disp: , Rfl: nabumetone (Relafen) 500 MG tablet, Take 500 mg by mouth 2 (two) times a day as needed (Patient nottaking: Reported on 08/27/2024), Disp: , Rfl: pantoprazole (ProtoNix) 40 MG EC tablet, Take 40 mg by mouth Daily, Disp: , Rfl: potassium chloride CR (Klor-Con M20) 20 MEQ ER tablet, Take 1 tablet by mouth in the morning. (Patient not taking: Reported on 08/27/2024), Disp: , Rfl: pramipexole (Mirapex) 0.125 MG tablet, Take 1 tablet (0.125 mg) by mouth in the morning and 1 tablet (0.125 mg) before bedtime., Disp: 60 tablet, Rfl: 1 pregabalin (Lyrica) 100 MG capsule, Take 100 mg by mouth in the morning and 100 mg before bedtime.,Disp: , Rfl: QUEtiapine (SEROquel) 25 MG tablet, Take 25 mg by mouth at bedtime (Patient taking differently: Take 50 mg by mouth at bedtime), Disp: , Rfl: Rimegepant Sulfate (Nurtec) 75 MG tablet dispersible, TAKE 1 TABLET BY MOUTH AT THE ONSET OF MIGRAINE Take no more than 1 dose in 48 hrs., Disp: 8 tablet, Rfl: 2 Trulicity 3 MG/0.5ML solution pen-injector, Administer the contents of one prefilled pen subcutaneously once weekly as directed, Disp: , Rfl: Social History: Social History Socioeconomic History Marital status: Spouse name: Not on file Number of children: Not on file Years of education: Not on file Highest education level: Not on file Occupational History Not on file Tobacco Use Smoking status: Former Types: Cigarettes Smokeless tobacco: Never Vaping Use Vaping status: Never Used Substance and Sexual Activity Alcohol use: Yes Comment: caffeine 1-2 cups per day; soda Drug use: Defer Sexual activity: Defer Other Topics Concern Not on file Social History Narrative Exercise: occasional Social Drivers of Health Financial Resource Strain: Not on file Food Insecurity: Food Insecurity Present (03/08/2023) Received from [facility], [facility], [facility] Hunger Screening Within the past 12 months we worried whether our food would run out before we got money to buy more.: Sometimes True Within the past 12 months the food we bought just didn't last and we didn't have money to get more.: Sometimes True Transportation Needs: Not on file Physical Activity: Not on file Stress: Not on file Social Connections: Not on file Intimate Partner Violence: Not At Risk (06/04/2023) Received from [facility], [facility] Humiliation, Afraid, Rape, and Kick questionnaire Fear of Current or Ex-Partner: No Emotionally Abused: No Physically Abused: No Sexually Abused: No Housing Stability: Not on file ROS: Gastrointestinal: denies abdominal pain, ulcers, or changes in appetite or bowel habits with OTC nsaids Musculoskeletal: Positive generalized arthritis to joints and denies loss of strength. Positive history of back issues as well as total knee replacement Cardiovascular: denies CP, palpitations, irregular rhythms OBJECTIVE LE EXAM: DERM: Positive hair growth to b/l feet with good skin turgor noted. Negative openings in skin. Slight edema to the right 3rd digit VASC: Palpable pedal pulsed b/l with warm to cool tibia to toes b/l NEURO: Gross sensation intact digits 1-10 and b/l feet ORTHO: +5/5 DF/PF/IN/EV right, +5/5 DF/PF/IN/EV left. 20 degrees inversion and 10 degrees eversion STJ b/l. Ankle ROM less than 10 degrees b/l. Minimal pain on palpation to right 3rd PIPJ and proximal phalanx Positive pain on palpation left PT tendon near medial malleolar and distally Positive pain on palpation to medial aspect of the left ankle gutter and capsule ASSESSMENT 1. Closed nondisplaced fracture of middle phalanx of lesser toe of right foot, initial encounter 2. Posterior tibial tendinitis of left leg 3. Contracture of left ankle 4. Other specified disorders of synovium, left ankle and foot 5. Contracture of right ankle PLAN Pt was given steroid injection to the medial left ankle joint capsule and synovium under US guidance with visualization of injected fluid into area of concern per imaging. Injection consisted of a 2:1 mixture of xylocaine 2%plain and kenalog 10 for a total of 3ccs. Informed pt of risks and benefits of procedure including infection,damage or rupture to soft tissuestructures and steroid flare. Pt understood and consented. This is the patients 2nd injection Patient to continue with oral anti - inflammatories as needed for pain and recommended OTC medications such as tylenol or Ibuprofen Patient may discontinue ankle brace at this time Pt presents today for casting of a removable foot inserts/orthotics today that were form fiited/molded to the patient's foot.(L3030 right and L3030 left foot). Pt received a semi-rigid device that was heated with heat gun for a moldable device and was form fitted to each foot today. Pt understands out of pocket cost if not covered by insurance and is agreeable to cost and signed ABN for device if needed. It was explained to the patient of a break in period for the devices. The patient is ambulatory andmay benefit functionally from this device. It may be used for the following conditions as noted permedical diagnosis in the EMR. Delroy Merino DPM documented in this encounterSaint Alexius [id number] NoteHNO ID: [id number] Author: RONALDO WESTBROOK Cast Tech Service: ? Author Type: Ice Guard Tester Type: Progress Notes Filed: 09/06/2024 15:23 Note Text: Fitted patient with a universal [id number]-N-[id number] for the left hand. Instructions were given on application/adjustments. Will f/u as scheduled/prn. Ronaldo Westbrook [facility]01-27-2025 History of Present illness Narrative* Ronaldo Westbrook Cast Tech - 08/31/2024 2:22 PM EST Fitted patient with a universal Weamd-[id number]-Kunhw for the left hand. Instructions were given on application/adjustments. Will f/u as scheduled/prn. RUBIA Forman * Kwame Mcneil MD - 08/31/2024 1:18 PM ESTAssociated Order(s): Additional Injections: L extensor compartment 1 Post-Procedure Diagnose(s): De Quervain's tenosynovitis, left Images from the original note were not included. The patient is sent for evaluation and an opinion regarding treatment by , who will receive a copy of this report by mail or through the shared medical record. CHIEF COMPLAINT: Lisa Mendez is a 49 year old female who presents today for new evaluation of left wrist pain. HPI: PAIN EVALUATION 08/30/2024 1213 08/31/2024 1331 Pain Level: -- 7 Pain Location: Heel-Left Hand-Left Description: Numbness;Other: See comment Aching;Numbness;Sharp;Sore;Tingling Duration Units: -- Years Frequency: Continuous Continuous Intervention/Comfort measure: -- Medication;Reposition;Relaxation Occupation: Works at [employer] Hand Dominance: right Background: She states she has had 3 surgeries aimed at the base of the left thumb. Despite this she continues to have pain here. The first was in 2020 and the last was June 2023. Additionally she has numbness and tingling in the superficial radial nerve distribution. She has had 2 carpal tunnel surgeries but this is not very bothersome to her. Cortisone to the base of the thumb has not helped. She does have diabetes. Previous treatment or work-up includes: As above. ROS: REVIEW OF SYSTEMS: Constitutional: Fever/chills: No Cardiovascular: Chest Pain: No Respiratory: SOB: No Musculoskeletal: as noted in the HPI Neurologic: as noted in the HPI Endocrine: Diabetes: Yes Tobacco user? No SOCIAL HISTORY: Tobacco Use: Never FAMILY HISTORY: No family history on file. PAST MEDICAL HISTORY Diagnosis Date H/O abdominal hysterectomy 01/2020 PAST SURGICAL HISTORY Procedure Laterality Date TOTAL ABDOM HYSTERECTOMY No family history on file. Social History Tobacco Use Smoking status: Never Smokeless tobacco: Never Vaping Use Vaping status: Never Used Substance Use Topics Alcohol use: Yes Drug use: Never ALLERGIES Allergen Reactions Aloe Vera Other: See Comments Baclofen Other: See Comments, Swelling Cephalexin GI Upset, Vomiting Ciprofloxacin Other: See Comments Cyclobenzaprine Hives, Unknown Gabapentin Hives, Unknown, Other: See Comments Menthol Other: See Comments Metformin Hives Morphine GI Upset Nsaids (Non-Steroid* Hives, Rash, Other: See Comments Azithromycin Itching, Rash Current Outpatient Medications Medication Sig Dispense Refill nabumetone (RELAFEN) 500 mg tablet 500 mg. pregabalin (LYRICA) 100 mg capsule Take 100 mg by mouth two times a day. polyethylene glycol 3350 (MIRALAX) 17 gram/dose powder Take 17 g by mouth once daily as needed. 166g 2 lumateperone (CAPLYTA) 10.5 mg capsule Take 10.5 [...] No current facility-administered medications for this visit. Physical Exam: Vitals: There were no vitals taken for this visit. Body Habitus: Well nourished and no acute distress Orientation: Normal, oriented to person, place and time Psych: Normal Skin: Color, texture, turgor normal. No rashes or lesions Sensation: Sensation to light touch is grossly normal bilaterally The left thumb is examined. Decree sensation in the superficial radial nerve distribution. Intact EPL and FPL. No pain or crepitus at the thumb A1 polly. Slight tenderness at the first CMC. Exquisitely tender at the first dorsal compartment with a positive Bunny. IMAGING: Final results and radiologist's interpretation, available in the [facility] health record. Images were reviewed with the patient/family members in the office today. My personal interpretation of the performed imaging is status post CMC arthroplasty with tight rope with subsidence of thumb metacarpal. 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 Other Tests: None Assessment: (Z98.890) H/O thumb surgery (primary encounter diagnosis) (M65.4) De Quervain's tenosynovitis, left Plan: She has had multiple surgeries to her left basilar thumb. A lot of her pain seems to be coming fromthe first dorsal compartment syndrome. Thus we will attempt a diagnostic and therapeutic injection into the first dorsal compartment and give her a thumb spica brace. Follow-up in person in 6 weeks with all of her op reports. Then can discuss source of pain and potential definitive treatment. Additional Injections: L extensor compartment 1 for de Quervain's tenosynovitis Informed Consent Consent Obtained: Verbal [place] Protocol A moment to CARE was completed. SIGN IN Sign in communication not applicable due to emergent procedure. Personnel directly involved with the procedure wore the appropriate PPE. Special Equipment: N/A Patient/Surrogate Stated/Verified: Patient name, Date of , Relevant allergies and Intended procedure TIME OUT Relevant labs, photos, and/or imaging studies have been reviewed. Intended patient and procedure match the source document(s). Consent documented and matches the intended procedure. Correct side/site marked and visible. Medications required for procedure verified. No fire risk assessment and interventions applicable. No implant(s) inserted.08/31/2024 3:22 PM The procedure site was prepped in the usual sterile fashion. Medications: 6 mg betamethasone acetate-betamethasone sodium phosphate 6 mg/mL Anesthetics: 1 mL lidocaine (PF) 10 mg/mL (1 %) Outcome: tolerated well, no immediate complications Post-injection instructions were reviewed with the patient and the patient voiced understanding of these instructions. SIGN OUT No specimen collected. All instruments, equipment, possible retained foreign bodies accounted for. Post-procedure follow-up management communicated and Plan of Care Visit completed when applicable Will continue to monitor patient for H/o thumb surgery (primary encounter diagnosis) De quervain's tenosynovitis, left, patient to schedule visit as per follow up discussed. Kwame Mcneil MD This document has been created with the use of voice recognition technology. It may contain inaccuracies: misspellings, inaccurate syntax or word sense that escaped review. documented in this [facility]The [facility] NoteHNO ID: [id number] Author: ML ALMANZAR RT(Yolanda) Service: ? Author Type: Technologist Type: Progress Notes Filed: 08/31/2024 13:25 Note Text: Radiology Service Progress Note PATIENT NAME: Lisa Mendez DATE OF SERVICE: August 31, 2024 TIME: 1:25 PM PATIENT IDENTITY VERIFICATION COMPLETED USING TWO (2) IDENTIFIERS: Name and Date of confirmed by patient verbally. FALL SCREENING: Has the patient had 2 falls in the last year or 1 fall with injury or currently using an Ambulatory Assistive Device (Walker, Cane, Wheelchair, Crutches, etc.)? No PATIENT GENDER DATA: Assigned female at . status: : No status: NO. PATIENT RELEVANT IMPLANT DATA REVIEWED: Not Applicable PATIENT PRESENTS WITH AN IMPLANTABLE OR ATTACHED CADD OPERATOR: No RADIOLOGY DEPARTMENT: General X-ray: Exam(s) Completed: Upper Extremity X-Ray(s): Hand, left PERIPHERAL IV DATA: Not applicable SIGNED BY: RT Javi(Yolanda) August 31, 2024 1:25 [facility]01-27-2025 History of Present illness Narrative* Ml Almanzar RT(R) - 08/31/2024 1:25 PM EST Radiology Service Progress Note PATIENT NAME: Lisa Mendez DATE OF SERVICE: August 31, 2024 TIME: 1:25 PM PATIENT IDENTITY VERIFICATION COMPLETED USING TWO (2) IDENTIFIERS: Name and Date of confirmedby patient verbally. FALL SCREENING: Has the patient had 2 falls in the last year or 1 fall with injury or currently using an Ambulatory Assistive Device (Walker, Cane, Wheelchair, Crutches, etc.)? No PATIENT GENDER DATA: Assigned female at . status: : No status:NO. PATIENT RELEVANT IMPLANT DATA REVIEWED: Not Applicable PATIENT PRESENTS WITH AN IMPLANTABLE OR ATTACHED CADD OPERATOR: No RADIOLOGY DEPARTMENT: General X-ray: Exam(s) Completed: Upper Extremity X- Ray(s): Hand, left PERIPHERAL IV DATA: Not applicable SIGNED BY: RT Javi(R) August 31, 2024 1:25 PM documented in this encounterThe [facility]-27-[facility]25 NoteHNO ID: [id number] Author: KWAME MCNEIL MD Service: ? Author Type: Physician Type: Progress Notes Filed: 09/06/2024 15:23 Note Text: The patient is sent for evaluation and an opinion regarding treatment by , who will receive a copy of this report by mail or through the shared medical record. CHIEF COMPLAINT: Lisa Mendez is a 49 year old female who presents today for new evaluation of left wrist pain. HPI: PAIN EVALUATION 08/30/2024 1213 08/31/2024 1331 Pain Level: -- 7 Pain Location: Heel-Left Hand-Left Description: Numbness;Other: See comment Aching;Numbness;Sharp;Sore;Tingling Duration Units: -- Years Frequency: Continuous Continuous Intervention/Comfort measure: -- Medication;Reposition;Relaxation Occupation: Works at [employer] Hand Dominance: right Background: She states she has had 3 surgeries aimed at the base of the left thumb. Despite this she continues to have pain here. The first was in 2020 and the last was June 2023. Additionally she has numbness and tingling in the superficial radial nerve distribution. She has had 2 carpal tunnel surgeries but this is not very bothersome to her. Cortisone to the base of the thumb has not helped. She does have diabetes. Previous treatment or work-up includes: As above. ROS: REVIEW OF SYSTEMS: Constitutional: Fever/chills: No Cardiovascular: Chest Pain: No Respiratory: SOB: No Musculoskeletal: as noted in the HPI Neurologic: as noted in the HPI Endocrine: Diabetes: Yes Tobacco user? No SOCIAL HISTORY: Tobacco Use: Never FAMILY HISTORY: No family history on file. PAST MEDICAL HISTORY Diagnosis Date H/O abdominal hysterectomy 01/2020 PAST SURGICAL HISTORY Procedure Laterality Date TOTAL ABDOM HYSTERECTOMY No family history on file. Social History Tobacco Use Smoking status: Never Smokeless tobacco: Never Vaping Use Vaping status: Never Used Substance Use Topics Alcohol use: Yes Drug use: Never ALLERGIES Allergen Reactions Aloe Vera Other: See Comments Baclofen Other: See Comments, Swelling Cephalexin GI Upset, Vomiting Ciprofloxacin Other: See Comments Cyclobenzaprine Hives, Unknown Gabapentin Hives, Unknown, Other: See Comments Menthol Other: See Comments Metformin Hives Morphine GI Upset Nsaids (Non-Steroid* Hives, Rash, Other: See Comments Azithromycin Itching, Rash Current Outpatient Medications Medication Sig Dispense Refill nabumetone (RELAFEN) 500 mg tablet 500 mg. pregabalin (LYRICA) 100 mg capsule Take 100 mg by mouth two times a day. polyethylene glycol 3350 (MIRALAX) 17 gram/dose powder Take 17 g by mouth once daily as needed. 166 g 2 lumateperone (CAPLYTA) 10.5 mg capsule Take 10.5 [...] No current facility-administered medications for this visit. Physical Exam: Vitals: There were no vitals taken for this visit. Body Habitus: Well nourished and no acute distress Orientation: Normal, oriented to person, place and time Psych: Normal Skin: Color, texture, turgor normal. No rashes or lesions Sensation: Sensation to light touch is grossly normal bilaterally The left thumb is examined. Decree sensation in the superficial radial nerve distribution. Intact EPL and FPL. No pain or crepitus at the thumb A1 polly. Slight tenderness at the first CMC. Exquisitely tender at the first dorsal compartment with a positive Bunny. IMAGING: Final results and radiologist's interpretation, available in the [facility] health record. Images were reviewed with the patient/family members in the office today. My personal interpretation of the performed imaging is status post CMC arthroplasty with tight rope with subsidence of thumb metacarpal. 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 Other Tests: None Assessment: (Z98.890) H/O thumb surgery (primary encounter diagnosis) (M65.4) De Quervain's tenosynovitis, left Plan: She has had multiple surgeries to her left basilar thumb. A lot of her pain seems to be coming from the first dorsal compartment syndrome. Thus we will attempt a diagnostic and therape (more content not included)...[facility]01-23-[facility]25 History of Present illness Narrative* Simone Rivera NP - 08/27/2024 11:00 AM EST Images from the original note were not included. Chief Complaint Patient presents with Back Pain Migraine Subjective Lisa Mendez is a 49 y.o. female. History of Present Illness The patient presents today for follow up. At the prior appointment, she was advised to restart duloxetine 30 mg by mouth once a day for 14 days and then increase to duloxetine 60 mg by mouth once a day. The patient is no longer taking duloxetine. She states she discontinued use because it was, nothelping at all, and also made her tired. She was evaluated by Dr. Kevin Pfeiffer (neurosurgery) on 05/25/2024, and he did not believe any surgical intervention was warranted at that time. He did refer her to physical medicine and rehabilitation. However, the patient states they wanted her to do physical therapy, and she refused, so she has not followed up there. She states something needs to be done about her back pain, and it seems like all anyone wants to do is push injections on her. The patient continues to experience constant low back pain. This is most prominent on the left. It does not radiate to the lower extremities. However, she does admit to some chronic pain localized inthe right hip as well. She denies injury or trauma to the back since the prior neurology appointment. She states her back pain is aggravated by lifting heavy objects and can interfere with her sleep.She has intermittent numbness in the bilateral feet in no particular dermatomal distribution. She states she experiences the numbness if she stands for too long, and this involves the entire foot. She has chronic urinary urgency but denies bowel dysfunction or saddle anesthesia. She denies numbnessor paresthesias proximal to the feet. She denies any falls since the prior appointment. She is having 1-2 migraines per month recently, and Nurtec remains effective for . No further new concerns reported. Review of Systems Constitutional: Negative for appetite change, chills, fatigue, fever and unexpected weight change. HENT: Negative for trouble swallowing and voice change. Eyes: Negative for visual change, double vision or loss of vision Respiratory: Negative for cough, shortness of breath and wheezing. Cardiovascular: Negative for chest pain and palpitations. Gastrointestinal: Negative for abdominal pain, blood in stool, nausea and vomiting. Genitourinary: Positive for urgency (follows with urology). Negative for dysuria and hematuria. Musculoskeletal: Positive for arthralgias, back pain (low back) and myalgias. Negative for gait problem and neck stiffness. Neurological: Positive for numbness and headaches. Negative for dizziness, tremors, seizures, syncope, facial asymmetry, speech difficulty, weakness and light-headedness. Positive for paresthesias Psychiatric/Behavioral: Negative for confusion, hallucinations and suicidal ideas. The patient is not nervous/anxious. Home Medication List B-D SINGLE USE SWABS REGULAR pads Caplyta 10.5 MG capsule; Generic drug: Lumateperone Tosylate carBAMazepine 100 MG chewable tablet; Commonly known as: TEGretol carbidopa-levodopa 25-100 MG tablet; Commonly known as: Sinemet cholecalciferol 1.25 MG (42517 UT) capsule; Commonly known as: Vitamin D-3 cyanocobalamin 1000 MCG tablet; Commonly known as: Vitamin B-12 Dexcom G7 Program Director/Music Director device Dexcom G7 Sensor misc glipiZIDE 5 MG tablet; Commonly known as: Glucotrol ibuprofen 800 MG tablet Nurtec 75 MG tablet dispersible; Generic drug: Rimegepant Sulfate pantoprazole 40 MG EC tablet; Commonly known as: Protonix pramipexole 0.125 MG tablet; Commonly known as: Mirapex pregabalin 100 MG capsule; Commonly known as: Lyrica quetiapine 25 MG tablet; Commonly known as: Seroquel Trulicity 3 MG/0.5ML solution pen-injector; Generic drug: dulaglutide Past Medical History: Diagnosis Date Allergies Anxiety Arthritis Asthma (CMS/HCC) Back pain 06/17/2017 Backache 04/05/2015 Bipolar 1 disorder (CMS/HCC) Bronchitis Chicken pox Chronic back pain DDD (degenerative disc disease), lumbar 06/17/2017 Depression (CMS/HCC) Diabetes mellitus (CMS/[facility]) Disturbance of skin sensation 04/05/2015 Insomnia 01/06/2018 Kidney stone Lumbar radiculopathy 01/06/2018 Lumbar spondylosis 01/06/2018 Measles Migraine (CMS/[facility]) Muscle weakness 04/05/2015 Overactive bladder Pain in limb 03/04/2015 Pneumonia Radicular pain 03/21/2018 Radiculopathy 03/04/2015 Restless legs syndrome Scarlet fever Tonsillitis Past Surgical History: Procedure Laterality Date BREAST LUMPECTOMY Left 03/2021 CARPAL TUNNEL RELEASE Bilateral SECTION, CLASSIC 2006 CHOLECYSTECTOMY LAPAROSCOPIC HYSTERECTOMY 01/2020 OTHER SURGICAL HISTORY episiotomy repair [facility] for overactive bladder TONSILLECTOMY TOTAL KNEE ARTHROPLASTY Bilateral VAGINAL DELIVERY 1998 WISDOM TOOTH EXTRACTION x4 Family History Problem Relation Name Age of Onset Hypertension Mother Brain cancer Paternal Grandmother Mental illness Sibling Diabetes Other Melanoma Neg Hx Psoriasis Neg Hx Social History Tobacco Use Smoking status: Former Types: Cigarettes Smokeless tobacco: Never Substance Use Topics Alcohol use: Yes Comment: caffeine 1-2 cups per day; soda Allergies: Penicillins, Ropinirole, Topiramate, Aloe vera, Baclofen, Cephalexin, Ciprofloxacin hcl,Ciprofloxacin-ciproflox hcl er, Diclofenac, Menthol, Metformin, Morphine, Naproxen, Sumatriptan, Tramadol, Vitamin e, Azithromycin, Cyclobenzaprine, Gabapentin, Ibuprofen, Nsaids, Tizanidine, and Zonisamide Vitals: 08/27/24 1101 BP: 138/80 Pulse: 108 SpO2: 100% Body mass index is 40.74 kg/m . weight: 230 lb Neurologic exam: Mental status and general appearance: Awake and alert with unlabored respirations. Oriented to person, place, and time. Recent and remotememory are intact. Speech is clear and fluent without aphasia. Speech is non-dysarthric. Attention and concentration are normal. Fund of knowledge is appropriate for level of education. Obese. Cranial nerves: CN II: Visual acuity is normal. Visual flores full to confrontation. CN III, IV, : Pupils are equal, round, and reactive to light. Extraocular movements intact. No ptosis present. CN V: Facial sensation is normal. CN VII: Full and symmetric facial movement. CN VIII: Hearing is normal to finger rub bilaterally. CN IX and X: Palate elevates symmetrically. CN XI: Shoulder shrug is normal bilaterally. CN XII: Tongue is midline without atrophy or fasciculation. Motor: RUE strength deltoid , biceps , triceps , wrist extensors , wrist flexor , and animal eviscerator strength 5/5. LUE strength deltoid , biceps , triceps , wrist extensors , wrist flexor , and animal eviscerator strength 5/5. RLE strength iliopsoas, quadriceps, tibialis anterior, and plantar flexion strength 5/5. LLE strength iliopsoas, quadriceps, tibialis anterior, and plantar flexion strength 5/5. Tone is normal. Sensory: Sensation is intact to light touch throughout all four extremities. Sensation is intact to temperature in all extremities. Tenderness overlying the bilateral lumbar paraspinal muscles with trigger points identified. Reflexes: RUE biceps reflex 2+ , brachioradialis reflex 2+. LUE biceps reflex 2+ , brachioradialis reflex 2+. RLE knee reflex 1+. LLE knee reflex 1+. Coordination: Mlsauf-it-hckp testing normal. Rapid alternating movements are normal. Gait: Normal. Review and summary of old records: I reviewed Dr. Kevin Pfeiffer's neurosurgery note from 05/25/2024. Per documentation, Dr. Pfeiffer did not believe any surgical intervention was warranted at that time. Labs on 03/31/24: Ferritin 111.0. Iron 61, TIBC 295, iron saturation 20.7%, transferrin 211. [place] [facility] [place]: Mild discovertebral degenerative changes, which are similar to the prior exam from 01/15/23. At L3/L4, there is mild annular disc bulging, greater toward the neural foramen. There is slight facet and ligamentous hypertrophy. There is no significant central stenosis. There is minimal inferior foraminal encroachment. At L4-L5, there is minor annular disc bulging toward the neural foramen. There is moderate facet and ligamentous hypertrophy. Atiny subchondral cyst is associated with the facets on the left laterally. There is continued mild predominantly posterior thecal sac effacement. There is mild to moderate foraminal encroachment, [id number]-right. At the lumbosacral junction, there is prominent facet hypertrophy and thickening of ligamentum flavum. There is only subtle thecal sac effacement. There is mild left foraminal encroachment. The right neural foramen is patent. EMG of the right upper extremity on 07/04/23: Normal. [place] lumbar spine [place] [facility] [place]: Mild posterior disc bulging along with hypertrophic ligamentous and facet joint changes. Mild central spinal canal stenosis at L3-L4 and L5-S1. Mild to moderate canal stenosis at L4-L5. Mild bilateral neuroforaminal narrowing at L4-L5 and L5-S1. MRI of the lumbar spine without contrast in May 2019 [place] [facility] [place] right parasagittal disc protrusion at L5/S1. Otherwise unremarkable. Assessment/Plan Diagnoses and all orders for this visit: Lumbar spondylosis Lumbar facet arthropathy Lumbosacral radiculopathy Ms. Mendez is a 49-year-old female who reports chronic low back pain. She also reports intermittent numbness in the bilateral feet (in no particular dermatomal distribution) but otherwise no apparent radicular symptoms. No focal weakness is identified on clinical exam. The patient had an MRI of the lumbar spine on 03/11/24 which identified mild discovertebral degenerative changes with varying degrees of foraminal encroachment (minimal to moderate) at L3-L4, L4-L5, and L5-S1 which could contribute to lumbosacral radiculopathy. MRI did not identify any significant central canal or neural foraminal stenosis. The patient has tried epidural injections, facet injections, and reportedly radiofrequency ablation for symptom management in the past without success. Methocarbamol (caused grogginess), baclofen, cyclobenzaprine, and tizanidine were not tolerated previously. Duloxetine was ineffective, and she has documented allergies or intolerances to NSAIDS, diclofenac, ibuprofen, naproxen, gabapentin, and tramadol. The patient continues to report significant low back pain which is limiting her functionality. Her primary complaint is back pain, and I have suspicionfor a component of myofascial pain, as she has tenderness overlying the bilateral lumbar paraspinalmuscles on clinical exam. She is taking pregabalin which has provided some benefit. Symptoms persist. PLAN: - The patient was referred to [facility] pain management in March 2024 but states she has not been contacted to schedule an appointment with their office. I will ask staff to look into this referral and the reason for this. If this is an ongoing issue, I did recommend referral to an alternative institution such as [facility] pain management, and the patient was agreeable. I believe the patient's pain would be best managed by a pain medicine specialist at this time due to the refractory nature of her symptoms, impact on her quality of life, and failure of multiple conservativemeasures. I believe she may benefit from a multidisciplinary approach at a tertiary care center. Wediscussed that the patient has tried many commonly used medications for chronic low back pain including NSAIDs, various muscle relaxants, duloxetine, gabapentin, and even tramadol without success. Pharmacologic treatment options are, unfortunately, becoming very limited - I encouraged the patient to look into the [facility], as they have specialists who also treat adults with back pain. She states she has been there before and had some success with chiropractic manipulation previously. She will call to schedule a follow-up - I did offer to prescribe lidocaine patches. The patient declined, stating these have been ineffective in the past - She is taking pregabalin 100 mg by mouth twice a day (managed by outside provider) Muscle spasm The patient does experience muscle spasms and myalgia and has trigger points identified on clinicalexam today. Per prior documentation, trigger point injections provided benefit in the past. However, today the patient tells me they did not. PLAN: - I recommended bilateral lumbar paraspinal trigger point injections to help reduce pain. The patient declined RLS (restless leg syndrome) It is my impression that the patient has RLS. She states symptoms are fairly well controlled recently. Ferritin level on 03/31/24 was 110 (goal is > 75 in individuals with RLS), and iron panel was within normal limits. PLAN: - The patient is taking pramipexole 0.125 mg by mouth once a day and carbidopa- levodopa 25-100 mg by mouth once a day (managed by outside providers) Episodic migraine (CMS/HCC) The patient has a longstanding history of migraines. These have been very well controlled recently,and Nurtec is effective for abortive therapy. PLAN: - Continue Nurtec 75 mg ODT as needed for migraine . Take no more than 1 dose in 48 hours - Ensure adequate hydration, adequate sleep, and regular physical activity as tolerated Diagnosis and treatment options discussed in detail. All questions answered. The patient verbalizesunderstanding and is agreeable to the plan. Discussion in layman's terms. Follow up in the office within 4 months; sooner if needed for new or worsening symptoms. Simone Rivera NP [facility] documented in this [facility]01-23-2025 Instructions* Patient Instructions* Simone Rivera NP - 08/27/2024 11:00 AM EST - Follow up with pain management for low back pain documented in this [facility]01-13-2025 History of Present illness Narrative* Delroy Merino DPM - 08/17/2024 4:40 PM EST Patient: Lisa Mendez : 1975 PCP: Noms Provider MD Viviana SUBJECTIVE This is a 49 y.o. female that presents today for a follow up of right 3rd toe fx of 5 months duration. Patient states she stubbed her toe and has had continued pain to the area has tried anti-inflammatories with positive improvement and minimal to no pain to her right 3rd toe with some swelling anddoes take anti- inflammatories with positive improvement and rates it up to a 1/10. She was to return to normal shoe gear. Patient also presents today with complaints of pain to the medial aspect of her left ankle regions been present for the past 2 months it is painful with 1st steps in the morning does loosen up slightly and anti-inflammatories help and rates pain up to an 8/10 at times. Patient has been wearing cam walker for the past 3 days and has complaints of pain to her ankle when boot and presents today for follow-up. Allergies: Allergies Allergen Reactions Penicillins Hives, Itching, Rash and Unknown Other reaction(s): itching Ropinirole Hives Topiramate Hives, Rash and Unknown Aloe Vera Unknown Baclofen Unknown and Swelling Other reaction(s): Other: See Comments Cephalexin GI intolerance, Nausea Only and Unknown Other reaction(s): GI Upset, Vomiting Ciprofloxacin Hcl Unknown Ciprofloxacin-Ciproflox Hcl Er Diclofenac Unknown and Other Stomach pain and cramping Menthol Unknown Other reaction(s): Other: See Comments Metformin Hives Morphine Nausea And Vomiting and GI intolerance Naproxen Unknown Sumatriptan Unknown Tramadol Unknown Vitamin E Unknown Azithromycin Itching, Rash and Unknown Cyclobenzaprine Hives, Unknown and Rash Other reaction(s): rash, itching, Unknown, Unknown Gabapentin Hives, Rash and Unknown Other reaction(s): Other: See Comments, Unknown Ibuprofen Rash Nsaids Hives, Unknown and Rash Tizanidine Rash Zonisamide Rash Past Medical History: Past Medical History: Diagnosis Date Allergies Anxiety Arthritis Asthma ([facility]) Back pain 06/17/2017 Backache 04/05/2015 Bipolar 1 disorder ([facility]) Bronchitis Chicken pox Chronic back pain DDD (degenerative disc disease), lumbar 06/17/2017 Depression ([facility]) Diabetes mellitus ([facility]) Disturbance of skin sensation 04/05/2015 Insomnia 01/06/2018 Kidney stone Lumbar radiculopathy 01/06/2018 Lumbar spondylosis 01/06/2018 Measles Migraine ([facility]) Muscle weakness 04/05/2015 Overactive bladder Pain in limb 03/04/2015 Pneumonia Radicular pain 03/21/2018 Radiculopathy 03/04/2015 Restless legs syndrome Scarlet fever Tonsillitis Medications: Current Outpatient Medications: Alcohol Swabs (B-D SINGLE USE SWABS REGULAR) pads, USE SWAB EXTERNALLY DIRECTED 4 TIMES DAILY, Disp: , Rfl: Caplyta 10.5 MG capsule, Take 1 capsule by mouth Daily, Disp: , Rfl: carBAMazepine (TEGretol) 200 MG tablet, Take 200 mg by mouth in the morning and 200 mg before bedtime., Disp: , Rfl: carbidopa-levodopa (Sinemet) 25-100 MG tablet, Take 1 tablet by mouth in the morning and 1 tablet before bedtime., Disp: , Rfl: cholecalciferol 1.25 MG (10561 UT) capsule, Take 50,000 Units by mouth 1 (one) time per week, Disp:, Rfl: clobetasol (Temovate) 0.05 % external solution, Apply to scalp every day prn flares, Disp: 50 mL, Rfl: 11 Clobetasol Propionate 0.05 % shampoo, LATHER ON WET HAIR TOPICALLY, LEAVE ON FOR 5 MINUTES THEN RINSE. USE 2 TO 3 TIMES A WEEK, Disp: 118 mL, Rfl: 11 Continuous Blood Gluc Program Director/Music Director (Dexcom G7 Program Director/Music Director) device, USE DIRECTED, Disp: , Rfl: Continuous Blood Gluc Sensor (Dexcom G7 Sensor) misc, USE DIRECTED, Disp: , Rfl: cyanocobalamin (Vitamin B-12) 1000 MCG tablet, Take 1,000 mcg by mouth in the morning., Disp: , Rfl: DULoxetine (Cymbalta) [address] capsule, Take 1 capsule (30 mg) by mouth Daily for 14 days Do not crush or chew., Disp: 14 capsule, Rfl: 0 DULoxetine (Cymbalta) [address] capsule, Take 1 capsule (60 mg) by mouth Daily Do not start before May 24, 2024., Disp: 30 capsule, Rfl: 2 glipiZIDE (Glucotrol) 5 MG tablet, 1 (one) time each day at the same time., Disp: , Rfl: ibuprofen 800 MG tablet, TAKE 1 TABLET BY MOUTH EVERY 8 HOURS IF NEEDED FOR MODERATE PAIN (4-7 PAIN), Disp: , Rfl: nabumetone (Relafen) 500 MG tablet, Take 500 mg by mouth 2 (two) times a day as needed, Disp: , Rfl: Nurtec 75 MG tablet dispersible, TAKE 1 TABLET BY MOUTH AT THE ONSET OF MIGRAINE, Disp: , Rfl: oxyCODONE-acetaminophen (Percocet) 5-325 MG tablet, 1 tablet, Disp: , Rfl: potassium chloride CR (Klor-Con M20) 20 MEQ ER tablet, Take 1 tablet by mouth in the morning., Disp: , Rfl: pramipexole (Mirapex) 0.125 MG tablet, Take 1 tablet (0.125 mg) by mouth in the morning and 1 tablet (0.125 mg) before bedtime. (Patient taking differently: Take 0.125 mg by mouth at bedtime), Disp: 60 tablet, Rfl: 1 pregabalin (Lyrica) 100 MG capsule, Take 100 mg by mouth in the morning and 100 mg before bedtime.,Disp: , Rfl: QUEtiapine (SEROquel) 25 MG tablet, Take 25 mg by mouth at bedtime, Disp: , Rfl: Trulicity 3 MG/0.5ML solution pen-injector, Administer the contents of one prefilled pen subcutaneously once weekly as directed, Disp: , Rfl: Social History: Social History Socioeconomic History Marital status: Spouse name: Not on file Number of children: Not on file Years of education: Not on file Highest education level: Not on file Occupational History Not on file Tobacco Use Smoking status: Former Types: Cigarettes Smokeless tobacco: Never Vaping Use Vaping status: Never Used Substance and Sexual Activity Alcohol use: Yes Comment: caffeine 1-2 cups per day; soda Drug use: Defer Sexual activity: Defer Other Topics Concern Not on file Social History Narrative Exercise: occasional Social Drivers of Health Financial Resource Strain: Not on file Food Insecurity: Food Insecurity Present (03/08/2023) Received from [facility], [facility], [facility] Hunger Screening Within the past 12 months we worried whether our food would run out before we got money to buy more.: Sometimes True Within the past 12 months the food we bought just didn't last and we didn't have money to get more.: Sometimes True Transportation Needs: Not on file Physical Activity: Not on file Stress: Not on file Social Connections: Not on file Intimate Partner Violence: Not At Risk (06/04/2023) Received from [facility], [facility] Humiliation, Afraid, Rape, and Kick questionnaire Fear of Current or Ex-Partner: No Emotionally Abused: No Physically Abused: No Sexually Abused: No Housing Stability: Not on file ROS: Gastrointestinal: denies abdominal pain, ulcers, or changes in appetite or bowel habits Musculoskeletal: Positive generalized arthritis to joints and denies loss of strength. Positive history of back issues as well as total knee replacement Cardiovascular: denies CP, palpitations, irregular rhythms OBJECTIVE LE EXAM: DERM: Positive hair growth to b/l feet with good skin turgor noted. Negative openings in skin. Slight edema to the right 3rd digit VASC: Palpable pedal pulsed b/l with warm to cool tibia to toes b/l NEURO: Gross sensation intact digits 1-10 and b/l feet ORTHO: +5/5 DF/PF/IN/EV right, +5/5 DF/PF/IN/EV left. 20 degrees inversion and 10 degrees eversion STJ b/l. Ankle ROM less than 10 degrees b/l. Minimal pain on palpation to right 3rd PIPJ and proximal phalanx Positive palpation left PT tendon near medial malleolar and distally Ultrasound DIAGNOSTIC US REPORT: Verbal order for ultrasound today The left ankle was scanned today with a 12 MHz linear probe in the transverse/sagital planes. Images were obtained. FINDINGS: US examination in the longitudinal and transverse images of the ankle joint demonstrates a small amount of hypo-echoic density and signal of the ankle joint indicative of synovitis and capsulitis. IMPRESSION: US findings of capsulitis/synovitis of ankle. ASSESSMENT 1. Closed nondisplaced fracture of middle phalanx of lesser toe of right foot, initial encounter 2. Posterior tibial tendinitis of left leg 3. Contracture of left ankle 4. Other specified disorders of synovium, left ankle and foot PLAN Pt was given steroid injection to the medial left ankle joint capsule and synovium under US guidance with visualization of injected fluid into area of concern per imaging. Injection consisted of a 2:1 mixture of xylocaine 2%plain and kenalog 10 for a total of 3ccs. Informed pt of risks and benefits of procedure including infection,damage or rupture to soft tissuestructures and steroid flare. Pt understood and consented. This is the patients 1st injection Patient to continue with oral anti - inflammatories as needed for pain and recommended OTC medications such as tylenol or Ibuprofen Patient dispensed soft ankle brace (L1902) prefabricated multiligamentous AFO today.to maintain 90 degree foot to ankle position. ABN signed and in chart for device. The boot was assembled and adjusted for proper fitting by Delroy Merino DPM and staff. A verbal order was given for dispensing of device. The patient is ambulatory and may benefit functionally from this device. It may be used for the following conditions as noted per medical diagnosis in the EMR. Apply the left foot Patient awaits precertification for orthotics Reviewed ultrasound today with patient Discontinue cam walker at this time Delroy Merino DPM documented in this encounterSaint Alexius [id number] History of Present illness Narrative* Delroy Merino DPM - 08/14/2024 9:10 AM EST Patient: Lisa Mendez : 1975 PCP: Noms Provider MD Viviana SUBJECTIVE This is a 49 y.o. female that presents today for a follow up of right 3rd toe fx of 5 months duration. Patient states she stubbed her toe and has had continued pain to the area has tried anti-inflammatories with positive improvement and minimal to no pain to her right 3rd toe with some swelling anddoes take anti- inflammatories with positive improvement and rates it up to a 1/10. She was to return to normal shoe gear. Patient also presents today with complaints of pain to the medial aspect of her left ankle regions been present for the past 2 months it is painful with 1st steps in the morning does loosen up slightly and anti-inflammatories help and rates pain up to an 8/10 at times Allergies: Allergies Allergen Reactions Penicillins Hives, Itching, Rash and Unknown Other reaction(s): itching Ropinirole Hives Topiramate Hives, Rash and Unknown Aloe Vera Unknown Baclofen Unknown and Swelling Other reaction(s): Other: See Comments Cephalexin GI intolerance, Nausea Only and Unknown Other reaction(s): GI Upset, Vomiting Ciprofloxacin Hcl Unknown Ciprofloxacin-Ciproflox Hcl Er Diclofenac Unknown and Other Stomach pain and cramping Menthol Unknown Other reaction(s): Other: See Comments Metformin Hives Morphine Nausea And Vomiting and GI intolerance Naproxen Unknown Sumatriptan Unknown Tramadol Unknown Vitamin E Unknown Azithromycin Itching, Rash and Unknown Cyclobenzaprine Hives, Unknown and Rash Other reaction(s): rash, itching, Unknown, Unknown Gabapentin Hives, Rash and Unknown Other reaction(s): Other: See Comments, Unknown Ibuprofen Rash Nsaids Hives, Unknown and Rash Tizanidine Rash Zonisamide Rash Past Medical History: Past Medical History: Diagnosis Date Allergies Anxiety Arthritis Asthma ([facility]) Back pain 06/17/2017 Backache 04/05/2015 Bipolar 1 disorder ([facility]) Bronchitis Chicken pox Chronic back pain DDD (degenerative disc disease), lumbar 06/17/2017 Depression ([facility]) Diabetes mellitus ([facility]) Disturbance of skin sensation 04/05/2015 Insomnia 01/06/2018 Kidney stone Lumbar radiculopathy 01/06/2018 Lumbar spondylosis 01/06/2018 Measles Migraine ([facility]) Muscle weakness 04/05/2015 Overactive bladder Pain in limb 03/04/2015 Pneumonia Radicular pain 03/21/2018 Radiculopathy 03/04/2015 Restless legs syndrome Scarlet fever Tonsillitis Medications: Current Outpatient Medications: Alcohol Swabs (B-D SINGLE USE SWABS REGULAR) pads, USE SWAB EXTERNALLY DIRECTED 4 TIMES DAILY, Disp: , Rfl: Caplyta 10.5 MG capsule, Take 1 capsule by mouth Daily, Disp: , Rfl: carBAMazepine (TEGretol) 200 MG tablet, Take 200 mg by mouth in the morning and 200 mg before bedtime., Disp: , Rfl: carbidopa-levodopa (Sinemet) 25-100 MG tablet, Take 1 tablet by mouth in the morning and 1 tablet before bedtime., Disp: , Rfl: cholecalciferol 1.25 MG (37157 UT) capsule, Take 50,000 Units by mouth 1 (one) time per week, Disp:, Rfl: clobetasol (Temovate) 0.05 % external solution, Apply to scalp every day prn flares, Disp: 50 mL, Rfl: 11 Clobetasol Propionate 0.05 % shampoo, LATHER ON WET HAIR TOPICALLY, LEAVE ON FOR 5 MINUTES THEN RINSE. USE 2 TO 3 TIMES A WEEK, Disp: 118 mL, Rfl: 11 Continuous Blood Gluc Program Director/Music Director (Dexcom G7 Program Director/Music Director) device, USE DIRECTED, Disp: , Rfl: Continuous Blood Gluc Sensor (Dexcom G7 Sensor) mis, USE DIRECTED, Disp: , Rfl: cyanocobalamin (Vitamin B-12) 1000 MCG tablet, Take 1,000 mcg by mouth in the morning., Disp: , Rfl: DULoxetine (Cymbalta) [address] capsule, Take 1 capsule (30 mg) by mouth Daily for 14 days Do not crush or chew., Disp: 14 capsule, Rfl: 0 DULoxetine (Cymbalta) [address] capsule, Take 1 capsule (60 mg) by mouth Daily Do not start before May 24, 2024., Disp: 30 capsule, Rfl: 2 glipiZIDE (Glucotrol) 5 MG tablet, 1 (one) time each day at the same time., Disp: , Rfl: ibuprofen 800 MG tablet, TAKE 1 TABLET BY MOUTH EVERY 8 HOURS IF NEEDED FOR MODERATE PAIN (4-7 PAIN), Disp: , Rfl: nabumetone (Relafen) 500 MG tablet, Take 500 mg by mouth 2 (two) times a day as needed, Disp: , Rfl: Nurtec 75 MG tablet dispersible, TAKE 1 TABLET BY MOUTH AT THE ONSET OF MIGRAINE, Disp: , Rfl: oxyCODONE-acetaminophen (Percocet) 5-325 MG tablet, 1 tablet, Disp: , Rfl: potassium chloride CR (Klor-Con M20) 20 MEQ ER tablet, Take 1 tablet by mouth in the morning., Disp: , Rfl: pramipexole (Mirapex) 0.125 MG tablet, Take 1 tablet (0.125 mg) by mouth in the morning and 1 tablet (0.125 mg) before bedtime. (Patient taking differently: Take 0.125 mg by mouth at bedtime), Disp: 60 tablet, Rfl: 1 pregabalin (Lyrica) 100 MG capsule, Take 100 mg by mouth in the morning and 100 mg before bedtime.,Disp: , Rfl: QUEtiapine (SEROquel) 25 MG tablet, Take 25 mg by mouth at bedtime, Disp: , Rfl: Trulicity 3 MG/0.5ML solution pen-injector, Administer the contents of one prefilled pen subcutaneously once weekly as directed, Disp: , Rfl: Social History: Social History Socioeconomic History Marital status: Spouse name: Not on file Number of children: Not on file Years of education: Not on file Highest education level: Not on file Occupational History Not on file Tobacco Use Smoking status: Former Types: Cigarettes Smokeless tobacco: Never Vaping Use Vaping status: Never Used Substance and Sexual Activity Alcohol use: Yes Comment: caffeine 1-2 cups per day; soda Drug use: Defer Sexual activity: Defer Other Topics Concern Not on file Social History Narrative Exercise: occasional Social Drivers of Health Financial Resource Strain: Not on file Food Insecurity: Food Insecurity Present (03/08/2023) Received from [facility], [facility], [facility] Hunger Screening Within the past 12 months we worried whether our food would run out before we got money to buy more.: Sometimes True Within the past 12 months the food we bought just didn't last and we didn't have money to get more.: Sometimes True Transportation Needs: Not on file Physical Activity: Not on file Stress: Not on file Social Connections: Not on file Intimate Partner Violence: Not At Risk (06/04/2023) Received from [facility], [facility] Humiliation, Afraid, Rape, and Kick questionnaire Fear of Current or Ex-Partner: No Emotionally Abused: No Physically Abused: No Sexually Abused: No Housing Stability: Not on file ROS: Gastrointestinal: denies abdominal pain, ulcers, or changes in appetite or bowel habits Musculoskeletal: Positive generalized arthritis to joints and denies loss of strength. Positive history of back issues as well as total knee replacement Cardiovascular: denies CP, palpitations, irregular rhythms OBJECTIVE LE EXAM: DERM: Positive hair growth to b/l feet with good skin turgor noted. Negative openings in skin. Slight edema to the right 3rd digit VASC: Palpable pedal pulsed b/l with warm to cool tibia to toes b/l NEURO: Gross sensation intact digits 1-10 and b/l feet ORTHO: +5/5 DF/PF/IN/EV right, +5/5 DF/PF/IN/EV left. 20 degrees inversion and 10 degrees eversion STJ b/l. Ankle ROM less than 10 degrees b/l. Minimal pain on palpation to right 3rd PIPJ and proximal phalanx Positive palpation left PT tendon near medial malleolar and distally ASSESSMENT 1. Closed nondisplaced fracture of middle phalanx of lesser toe of right foot, initial encounter 2. Contracture of left ankle 3. Posterior tibial tendinitis of left leg PLAN Patient to continue with oral anti - inflammatories as needed for pain and recommended OTC medications such as tylenol or Ibuprofen Pt dispensed pneumatic CAM walker (L4361) today to maintain 90 degree foot to ankle position. Pt informed to only remove walker when at rest or bathing. ABN signed and in chart for device if warranted. The boot was assembled and adjusted liner and straps and pneumatically inflated for proper customfitting by Delroy Merino DPM and staff. A verbal order was given for dispensing of device. The patient is ambulatory and may benefit functionally from this device. It may be used for the following conditions as noted per medical diagnosis. Will pre-certify for inserts Delroy Merino DPM documented in this encounterSaint Alexius [id number] Miscellaneous Notes* Telephone Encounter - Juanita Baird - 08/13/2024 10:06 AM EST Called patient and left VM to cancel appointment with Jairo Dela Cruz and rescheduled appointment for 08/31 @ 1:[address] Tarun Hammonds. Also sent GnamGnam message documented in this encounterThe [facility] Telephone encounter Note * Telephone Encounter - Juanita Baird - 08/13/2024 10:06 AM EST Called patient and left VM to cancel appointment with Jairo Dela Cruz and rescheduled appointment for 08/31 @ 1:[address] Tarun Hammonds. Also sent GnamGnam message [facility]01-03-2025 Radiology Diagnostic study [facility] [place] [facility] [place] [address] [place] [address] CT Scan Report Signed Patient: Lisa Mendez MR#: [id number] : 1975 Acct:[id number] Age/Sex: 49 / F ADM Date: Loc: ER Room: Type: [facility] ER Attending Dr: Copies to: Kenny Carreno Jr, MD~ Ordering Provider: Kenny Carreno Jr, MD Date of Service: 08/06/24 CT/CT abdomen pelvis w con: central abd pain 2-3 mos,occas N/V CT abdomen pelvis w con 08/06/2024 11:25 PM SIGNS AND SYMPTOMS: Upper abdominal pain with nausea and vomiting, history of renal stones TECHNIQUE: Multidetector ct axial images of the abdomen and pelvis were obtainedwith IV contrast. Multiplanar reformats were performed and reviewed to further define anatomy and possible pathology. CT was performed with one or more of thefollowing dose reduction techniques: Automated exposure control, adjustment of the mA and/or kV according to patient size, or use of iterative reconstruction technique. COMPARISON: 05/09/2024 FINDINGS: Lower Chest: Within normal limits. ABDOMEN: Liver: Within normal limits. Bile Ducts: Normal caliber. Gallbladder: Previously removed Pancreas: Within normal limits. Spleen: Within normal limits. Adrenals: Within normal limits. Kidneys: Renal stones are present on the left measuring up to 5 mm in greatest dimension. There is no hydronephrosis. Pelvis: Reproductive Organs: No pelvic masses. Ureters: Within normal limits. Bladder: Within normal limits. Bowel: Normal caliber. There is a normal appendix in the right lower quadrant. Mesenteric Lymph Nodes: No enlarged mesenteric lymph nodes. Peritoneum: No ascites or free air, no fluid collection. Vessels: within normal limits Retroperitoneum: Within normal limits. Abdominal Wall: Within normal limits. Bones: Degenerative changes are noted in the thoracic spine and lumbar spine. Degenerative changes are noted in the hips and sacroiliac joints. CT/CT abdomen pelvis w con IMPRESSION: No bowel obstruction or obstructive uropathy. There are nonobstructing stones in the left renal collecting system measuring upto 5 mm in greatestdimension. There is a normal appendix in the right lower quadrant. Impression dictated by: Mode Handy M.D.08/07/2024 12:15 AM Dictation Location: [id number] Transcribed By: [facility] 08/07/2414 Dictated By: Mode Handy II, MD 08/07/24 0008 Signed By: 08/07/2414 [facility] Work Phone: [phone] 507-812812-23-2024 Telephone encounter Note* Telephone Encounter - Ashley Americo - 07/27/2024 9:39 AM EST Pt declined coming in morning in [place], she will come in 08/03, and she said she is keeping her foot up and icing when she gets off of work, I let her know to take anti inflammatory also [facility] [id number] Miscellaneous Notes* Telephone Encounter - Ashley Driscoll - 07/27/2024 9:39 AM EST Pt declined coming in morning in [place], she will come in 08/03, and she said she is keeping her foot up and icing when she gets off of work, I let her know to take anti inflammatory also documented in this encounterSaint Alexius [id number] History of Present illness Narrative* Delroy Merino DPM - 07/13/2024 11:30 AM EST Patient: Lisa Mendez : 1975 PCP: Noms Provider MD Viviana SUBJECTIVE This is a 48 y.o. female that presents today for a chief complaint of right 3rd toe pain for the past 3 months. Patient states she stubbed her toe and has had continued pain to the area has tried anti-inflammatories with minimal improvement and still continue to have pain to her right 3rd toe with some swelling and does take anti-inflammatories with minimal improvement and rates it up to a 4/10. Allergies: Allergies Allergen Reactions Penicillins Hives, Itching, Rash and Unknown Other reaction(s): itching Ropinirole Hives Topiramate Hives, Rash and Unknown Aloe Vera Unknown Baclofen Unknown and Swelling Other reaction(s): Other: See Comments Cephalexin GI intolerance, Nausea Only and Unknown Other reaction(s): GI Upset, Vomiting Ciprofloxacin Hcl Unknown Ciprofloxacin-Ciproflox Hcl Er Diclofenac Unknown and Other Stomach pain and cramping Menthol Unknown Other reaction(s): Other: See Comments Metformin Hives Morphine Nausea And Vomiting and GI intolerance Naproxen Unknown Sumatriptan Unknown Tramadol Unknown Vitamin E Unknown Azithromycin Itching, Rash and Unknown Cyclobenzaprine Hives, Unknown and Rash Other reaction(s): rash, itching, Unknown, Unknown Gabapentin Hives, Rash and Unknown Other reaction(s): Other: See Comments, Unknown Ibuprofen Rash Nsaids Hives, Unknown and Rash Tizanidine Rash Zonisamide Rash Past Medical History: Past Medical History: Diagnosis Date Allergies Anxiety Arthritis Asthma ([facility]) Back pain 06/17/2017 Backache 04/05/2015 Bipolar 1 disorder ([facility]) Bronchitis Chicken pox Chronic back pain DDD (degenerative disc disease), lumbar 06/17/2017 Depression ([facility]) Diabetes mellitus ([facility]) Disturbance of skin sensation 04/05/2015 Insomnia 01/06/2018 Kidney stone Lumbar radiculopathy 01/06/2018 Lumbar spondylosis 01/06/2018 Measles Migraine ([facility]) Muscle weakness 04/05/2015 Overactive bladder Pain in limb 03/04/2015 Pneumonia Radicular pain 03/21/2018 Radiculopathy 03/04/2015 Restless legs syndrome Scarlet fever Tonsillitis Medications: Current Outpatient Medications: Alcohol Swabs (B-D SINGLE USE SWABS REGULAR) pads, USE SWAB EXTERNALLY DIRECTED 4 TIMES DAILY, Disp: , Rfl: Caplyta 10.5 MG capsule, Take 1 capsule by mouth Daily, Disp: , Rfl: carBAMazepine (TEGretol) 200 MG tablet, Take 200 mg by mouth in the morning and 200 mg before bedtime., Disp: , Rfl: carbidopa-levodopa (Sinemet) 25-100 MG tablet, Take 1 tablet by mouth in the morning and 1 tablet before bedtime., Disp: , Rfl: cholecalciferol 1.25 MG (34929 UT) capsule, Take 50,000 Units by mouth 1 (one) time per week, Disp:, Rfl: clobetasol (Temovate) 0.05 % external solution, Apply to scalp every day prn flares, Disp: 50 mL, Rfl: 11 Clobetasol Propionate 0.05 % shampoo, LATHER ON WET HAIR TOPICALLY, LEAVE ON FOR 5 MINUTES THEN RINSE. USE 2 TO 3 TIMES A WEEK, Disp: 118 mL, Rfl: 11 Continuous Blood Gluc Program Director/Music Director (Dexcom G7 Program Director/Music Director) device, USE DIRECTED, Disp: , Rfl: Continuous Blood Gluc Sensor (Dexcom G7 Sensor) [facility], USE DIRECTED, Disp: , Rfl: cyanocobalamin (Vitamin B-12) 1000 MCG tablet, Take 1,000 mcg by mouth in the morning., Disp: , Rfl: DULoxetine (Cymbalta) [address] capsule, Take 1 capsule (30 mg) by mouth Daily for 14 days Do not crush or chew., Disp: 14 capsule, Rfl: 0 DULoxetine (Cymbalta) [address] capsule, Take 1 capsule (60 mg) by mouth Daily Do not start before May 24, 2024., Disp: 30 capsule, Rfl: 2 glipiZIDE (Glucotrol) 5 MG tablet, 1 (one) time each day at the same time., Disp: , Rfl: ibuprofen 800 MG tablet, TAKE 1 TABLET BY MOUTH EVERY 8 HOURS IF NEEDED FOR MODERATE PAIN (4-7 PAIN), Disp: , Rfl: nabumetone (Relafen) 500 MG tablet, Take 500 mg by mouth 2 (two) times a day as needed, Disp: , Rfl: Nurtec 75 MG tablet dispersible, TAKE 1 TABLET BY MOUTH AT THE ONSET OF MIGRAINE, Disp: , Rfl: oxyCODONE-acetaminophen (Percocet) 5-325 MG tablet, 1 tablet, Disp: , Rfl: potassium chloride CR (Klor-Con M20) 20 MEQ ER tablet, Take 1 tablet by mouth in the morning., Disp: , Rfl: pramipexole (Mirapex) 0.125 MG tablet, Take 1 tablet (0.125 mg) by mouth in the morning and 1 tablet (0.125 mg) before bedtime. (Patient taking differently: Take 0.125 mg by mouth at bedtime), Disp: 60 tablet, Rfl: 1 pregabalin (Lyrica) 100 MG capsule, Take 100 mg by mouth in the morning and 100 mg before bedtime.,Disp: , Rfl: QUEtiapine (SEROquel) 25 MG tablet, Take 25 mg by mouth at bedtime, Disp: , Rfl: Trulicity 3 MG/0.5ML solution pen-injector, Administer the contents of one prefilled pen subcutaneously once weekly as directed, Disp: , Rfl: Social History: Social History Socioeconomic History Marital status: Spouse name: Not on file Number of children: Not on file Years of education: Not on file Highest education level: Not on file Occupational History Not on file Tobacco Use Smoking status: Former Types: Cigarettes Smokeless tobacco: Never Vaping Use Vaping status: Never Used Substance and Sexual Activity Alcohol use: Yes Comment: caffeine 1-2 cups per day; soda Drug use: Defer Sexual activity: Defer Other Topics Concern Not on file Social History Narrative Exercise: occasional Social Drivers of Health Financial Resource Strain: Not on file Food Insecurity: Food Insecurity Present (03/08/2023) Received from [facility], [facility], [facility] Hunger Screening Within the past 12 months we worried whether our food would run out before we got money to buy more.: Sometimes True Within the past 12 months the food we bought just didn't last and we didn't have money to get more.: Sometimes True Transportation Needs: Not on file Physical Activity: Not on file Stress: Not on file Social Connections: Not on file Intimate Partner Violence: Not At Risk (06/04/2023) Received from [facility], [facility] Humiliation, Afraid, Rape, and Kick questionnaire Fear of Current or Ex-Partner: No Emotionally Abused: No Physically Abused: No Sexually Abused: No Housing Stability: Not on file ROS: Gastrointestinal: denies abdominal pain, ulcers, or changes in appetite or bowel habits Musculoskeletal: Positive generalized arthritis to joints and denies loss of strength. Positive history of back issues as well as total knee replacement Cardiovascular: denies CP, palpitations, irregular rhythms OBJECTIVE LE EXAM: DERM: Positive hair growth to b/l feet with good skin turgor noted. Negative openings in skin. Slight edema to the right 3rd digit VASC: Palpable pedal pulsed b/l with warm to cool tibia to toes b/l NEURO: Gross sensation intact digits 1-10 and b/l feet ORTHO: +5/5 DF/PF/IN/EV right, +5/5 DF/PF/IN/EV left. 20 degrees inversion and 10 degrees eversion STJ b/l. Ankle ROM less than 10 degrees b/l. Positive pain on palpation to right 3rd PIPJ and proximal phalanx XRAY: Verbal order today for x-rays be taken by staff. AP/Oblique/Lateral 3 view radiographs today of the right foot demonstrated the following: Notable slight periosteal reaction of the mid shaft region of the proximal phalanx of the right 3rd toe with negative displacement US: ASSESSMENT 1. Closed nondisplaced fracture of middle phalanx of lesser toe of right foot, initial encounter PLAN Patient to continue with oral anti - inflammatories as needed for pain and recommended OTC medications such as tylenol or Ibuprofen Reviewed x-rays today with patient Pt dispensed pneumatic CAM walker (L4361) today to maintain 90 degree foot to ankle position. Pt informed to only remove walker when at rest or bathing. ABN signed and in chart for device if warranted. The boot was assembled and adjusted liner and straps and pneumatically inflated for proper customfitting by Delroy Merino DPM and staff. A verbal order was given for dispensing of device. The patient is ambulatory and may benefit functionally from this device. It may be used for the following conditions as noted per medical diagnosis. Delroy Merino DPM documented in this encounterSaint Alexius [id number] Evaluation note* Author Michael Morley [facility] Authored June 16, 2024 11:37am Start weight: 246.1 lbs., sh e is down 12.1 lbs today with a weight of 234.0 lbs. and up 15.6 lbs since her last visit on 02/18/2024. Starting waist circumference: 44.0 inches. Starting Date: 04/28/2020. Victoza responder for weight loss. 1. Metabolic syndrome- improving with healthier eating overall and weight loss. She tries to stay away from junk food. She is trying to be more active. She must continue to try to minimize highly processed and takeout foods. She should follow-up closely with the clinical trial associate. Her A1c before starting Victoza was 6.9, [...] dad was diabetic. 2. Obesity -significantly improvement despite some recent weight regain with following our program and taking Trulicity 4.5 mg. She is still down greater than 5% to starting our program. Her most recent A1c dropped from 6.7 down to 5.0 at [facility] by her history. So, we had stopped her glipizide 5 mg. She has [...] She will consider starting exercise with her wood furniture assembler. Before starting our program, her biggest reasons for her weight struggles include skipping breakfast, previously poor sleep, type 2 diabetes, bipolar disorder, depression, stress eating, eating many highly processed foods, decreased activity with her knee and some weight positive medications. She had a past history of significant soda intake. She used to drink 5 large sodas a day when she worked at [employer] or a sixpack of BeGo a day. She should continue to try [...] metabolic blood work regularly with her PCP. [facility] Work Phone: [phone]) 249-607410-30-2024 Telephone encounter Note* Telephone Encounter - Simone Rivera NP - 06/03/2024 4:58 PM EDT Thank you! [facility] [id number] Miscellaneous Notes* Telephone Encounter - Simone Rivera NP - 06/03/2024 4:58 PM EDT Thank you! * Telephone Encounter - Yoselin Landeros MA - 06/03/2024 4:40 PM EDT I will resend this to [facility] * Telephone Encounter - Delroy Kaufman MA - 06/03/2024 3:55 PM EDT Per pt she called and talked to her insurance and they told her [facility] is in network. * Telephone Encounter - Simone Rivera NP - 06/03/2024 3:34 PM EDT Are you able to check on that please? I did refer the patient to [facility] pain management in March 2024. Per documentation, they stated they did not contact her to schedule because they werenot in her network. If [facility] is in her network, we may just need to ensure they received the referraland ask them to call the patient to set up an appointment. * Telephone Encounter - Delroy Kaufman MA - 06/03/2024 3:17 PM EDT She wishes for [facility] she is in network with them. * Telephone Encounter - Simone Rivera NP - 06/02/2024 5:13 PM EDT Can you please check if the patient would still like a referral to pain management for another opinion? I will place this if she would like and provides us with a provider or location that is in network for her insurance. * Telephone Encounter - Yoselin Landeros MA - 05/19/2024 9:39 AM EDT I called PT and she was in another appointment and would call us back later. * Telephone Encounter - Simone Rivera NP - 05/19/2024 9:36 AM EDT Has the patient provided any update on this? * Telephone Encounter - Yoselin Landeros MA - 05/11/2024 4:30 PM EDT Patient said she would call tomorrow to give us a list of pain management providers that are in network with her insurance. * Telephone Encounter - Simone Rivera NP - 05/11/2024 8:40 AM EDT Thank you. Can you please ask the patient to check with her insurance and let us know which other pain management providers are in network so we can send the referral elsewhere? * Telephone Encounter - Yoselin Landeros MA - 05/11/2024 8:25 AM EDT According to [facility] Pain [facility], they are not in Network for her insurance which is why she didn'treceive a call. * Telephone Encounter - Simone Rivera NP - 05/10/2024 5:24 PM EDT At the prior appointment, the patient was referred to [facility] pain management. She states she was nevercontacted by them to schedule an appointment. Can you look into the referral please? documented in this encounterSaint Alexius [id number] Telephone encounter Note* Telephone Encounter - Yoselin Landeros MA - 06/03/2024 4:40 PM EDT I will resend this to [facility] [id number] Telephone encounter Note* Telephone Encounter - Delroy Kaufman MA - 06/03/2024 3:55 PM EDT Per pt she called and talked to her insurance and they told her [facility] is in network. [facility] [id number] Telephone encounter Note* Telephone Encounter - Simone Rivera NP - 06/03/2024 3:34 PM EDT Are you able to check on that please? I did refer the patient to [facility] pain management in March 2024. Per documentation, they stated they did not contact her to schedule because they werenot in her network. If [facility] is in her network, we may just need to ensure they received the referraland ask them to call the patient to set up an appointment. [facility] [id number] Telephone encounter Note* Telephone Encounter - Delroy Kaufman MA - 06/03/2024 3:17 PM EDT She wishes for [facility] she is in network with them. [facility] [id number] Telephone encounter Note* Telephone Encounter - Simone Rivera NP - 06/02/2024 5:13 PM EDT Can you please check if the patient would still like a referral to pain management for another opinion? I will place this if she would like and provides us with a provider or location that is in network for her insurance. [facility] [id number] Telephone encounter Note* Telephone Encounter - Yoselin Ladneros MA - 05/19/2024 9:39 AM EDT I called PT and she was in another appointment and would call us back later. [facility] [id number] Telephone encounter Note* Telephone Encounter - Simone Rivera NP - 05/19/2024 9:36 AM EDT Has the patient provided any update on this? [facility] [id number] Telephone encounter Note* Telephone Encounter - Yoselin Landeros MA - 05/11/2024 4:30 PM EDT Patient said she would call tomorrow to give us a list of pain management providers that are in network with her insurance. [facility] [id number] Telephone encounter Note* Telephone Encounter - Simone Rivera NP - 05/11/2024 8:40 AM EDT Thank you. Can you please ask the patient to check with her insurance and let us know which other pain management providers are in network so we can send the referral elsewhere? [facility] [id number] Telephone encounter Note* Telephone Encounter - Yoselin Landeros MA - 05/11/2024 8:25 AM EDT According to [facility], they are not in Network for her insurance which is why she didn'treceive a call. [facility] [id number] Hospital Discharge instructions Patient Education 05/10/2024 19:55:29 Acute Pain, Adult Acute Pain, Adult Acute pain is a type of sudden pain that may last for just a few days or for as long as three months. It is often related to an illness, injury, or a medical procedure. Acute pain may be mild, moderate, or severe. Pain can make it hard for you to do your daily activities. It can cause anxiety and lead to other problems if it is not treated. Treatment may not take all the pain away, but it may lessen the pain so you can move around and tolerate it. Pain is best treated with medicines and other therapies such as distraction, meditation, oils from plants (aromatherapy), heat, and ice. Treatment depends on the cause of the pain and how severe it is. Acute pain usually goes away once your injury has healed or you are no longer ill. Follow these instructions at home: Medicines Take mnox-osh-vdsxqsm and prescription medicines only as told by your health care provider. Take the lowest dose of medicine for the shortest amount of time needed to relieve the pain. If you are taking prescription pain medicine: ?Do not stop taking the medicine suddenly. Talk to your health care provider about how and when to stop taking prescription medicine. ?Do not take more pills than told by your health care provider even if your pain is severe. ?Do not take other kplr-qyu-sinmeso pain medicines in addition to prescription pain medicine unlesstold by your health care provider. ?Keep your medicine in a safe place, away from children or anyone who could use it in a way that itwas not prescribed. ?Ask your health care provider if the medicine prescribed to you requires you to avoid driving or using machinery. Managing pain, stiffness, and swelling If told, put ice on the affected area. ?Put ice in a plastic bag. ?Place a towel between your skin and the bag. ?Leave the ice on for 20 minutes, 2 3 times a day. If told, apply heat to the affected area as often as told by your health care provider. Use the heat source that your health care provider recommends, such as a moist heat pack or a heating pad. ?Place a towel between your skin and the heat source. ?Leave the heat on for 20 30 minutes. If your skin turns bright red, remove the ice or heat right away to prevent skin damage. The risk of damage is higher if you cannot feel pain, heat, or cold. Managing constipation Your medicines may cause constipation. To prevent or treat constipation, you may need to: Drink enough fluid to keep your urine pale yellow. Take fgbg-hap-nkhzdwc or prescription medicines. Eat foods that are high in fiber, such as beans, whole grains, and fresh fruits and vegetables. Limit foods that are high in fat and processed sugars, such as fried or sweet foods. Activity Rest as told by your health care provider. Return to your normal activities as told by your health care provider. Ask your health care provider what activities are safe for you. Ask your health care provider if doing physical therapy exercises to improve movement and strength can help you manage your pain. General instructions Check your pain level as told by your health care provider. Ask your health care provider if distraction, relaxation, or aromatherapy can help you manage your pain. Keep all follow-up visits. Your health care provider will monitor your pain level. Contact a health care provider if: Your pain is not controlled by medicine. Your pain does not improve or gets worse. You have side effects from pain medicines. Get help right away if: You have severe pain. You have trouble breathing. You faint, or another person sees you faint. You have chest pain or pressure that lasts for more than a few minutes, or if you have other symptoms along with chest pain, including: ?Pain or discomfort in one or both arms, your back, neck, jaw, or stomach. ?Shortness of breath. ?A cold sweat. ?Nausea. ?Feeling light-headed. These symptoms may be an emergency. Get help right away. Call 911. Do not wait to see if the symptoms will go away. Do not drive yourself to the hospital. This information is not intended to replace advice given to you by your health care provider. Make sure you discuss any questions you have with your health care provider. Document Revised: 02/13/2023 Document Reviewed: 02/13/2023 [employer] Patient Education 2023 [employer]. Follow Up Care 05/10/2024 18:37:53 With:BRIGIDA COREA Address: [address] [place] [address] [address] [place] [address] [phone] Business (1) When:05/13/2024 19:55:20 Comments:Call to schedule a follow-up appointment with your family physician in the next 2 to 3 days. Use Tylenol, ibuprofen, and ice for pain management. Return to ED with any new or worsening symptoms. [facility] 10-06-2024 NoteED Patient Education Note Orthopedics Acute Pain, Adult Acute pain is a type of sudden pain that may last for just a few days or for as long as three months. It is often related to an illness, injury, or a medical procedure. Acute pain may be mild, moderate, or severe. Pain can make it hard for you to do your daily activities. It can cause anxiety and lead to other problems if it is not treated. Treatment may not take all the pain away, but it may lessen the pain so you can move around and tolerate it. Pain is best treated with medicines and other therapies such as distraction, meditation, oils from plants (aromatherapy), heat, and ice. Treatment depends on the cause of the pain and how severe it is. Acute pain usually goes away once your injury has healed or you are no longer ill. Follow these instructions at home: Medicines ? Take moaa-mps-sycybin and prescription medicines only as told by your health care provider. ? Take the lowest dose of medicine for the shortest amount of time needed to relieve the pain. ? If you are taking prescription pain medicine: ? Do not stop taking the medicine suddenly. Talk to your health care provider about how and when tostop taking prescription medicine. ? Do not take more pills than told by your health care provider even if your pain is severe. ? Do not take other xzgm-nyr-yhmmbph pain medicines in addition to prescription pain medicine unless told by your health care provider. ? Keep your medicine in a safe place, away from children or anyone who could use it in a way that it was not prescribed. ? Ask your health care provider if the medicine prescribed to you requires you to avoid driving or using machinery. Managing pain, stiffness, and swelling ? If told, put ice on the affected area. ? Put ice in a plastic bag. ? Place a towel between your skin and the bag. ? Leave the ice on for 20 minutes, 2?3 times a day. ? If told, apply heat to the affected area as often as told by your health care provider. Use the heat source that your health care provider recommends, such as a moist heat pack or a heating pad. ? Place a towel between your skin and the heat source. ? Leave the heat on for 20?30 minutes. ? If your skin turns bright red, remove the ice or heat right away to prevent skin damage. The riskof damage is higher if you cannot feel pain, heat, or cold. Managing constipation Your medicines may cause constipation. To prevent or treat constipation, you may need to: ? Drink enough fluid to keep your urine pale yellow. ? Take eaid-tyx-itqbfdj or prescription medicines. ? Eat foods that are high in fiber, such as beans, whole grains, and fresh fruits and vegetables. ? Limit foods that are high in fat and processed sugars, such as fried or sweet foods. Activity ? Rest as told by your health care provider. ? Return to your normal activities as told by your health care provider. Ask your health care provider what activities are safe for you. ? Ask your health care provider if doing physical therapy exercises to improve movement and strength can help you manage your pain. General instructions ? Check your pain level as told by your health care provider. ? Ask your health care provider if distraction, relaxation, or aromatherapy can help you manage your pain. ? Keep all follow-up visits. Your health care provider will monitor your pain level. Contact a health care provider if: ? Your pain is not controlled by medicine. ? Your pain does not improve or gets worse. ? You have side effects from pain medicines. Get help right away if: ? You have severe pain. ? You have trouble breathing. ? You faint, or another person sees you faint. ? You have chest pain or pressure that lasts for more than a few minutes, or if you have other symptoms along with chest pain, including: ? Pain or discomfort in one or both arms, your back, neck, jaw, or stomach. ? Shortness of breath. ? A cold sweat. ? Nausea. ? Feeling light-headed. These symptoms may be an emergency. Get help right away. Call 911. ? Do not wait to see if the symptoms will go away. ? Do not drive yourself to the hospital. This information is not intended to replace advice given to you by your health care provider. Make sure you discuss any questions you have with your health care provider. Document Revised: 02/13/2023 Document Reviewed: 02/13/2023 [employer] Patient Education ? 2023 [employer].[facility] 05-10-2024 Telephone encounter Note* Telephone Encounter - Simone Rivera NP - 05/10/2024 5:24 PM EDT At the prior appointment, the patient was referred to [facility] pain management. She states she was nevercontacted by them to schedule an appointment. Can you look into the referral please? [facility] [id number] History of Present illness Narrative* Simone Rivera NP - 05/07/2024 4:00 PM EDT Images from the original note were not included. Simone Rivera NP Chief Complaint Patient presents with Migraine Back Pain Subjective Lisa Mendez is a 48 y.o. female. HPI The patient presents today for follow up. She had labs completed for review. At the prior appointment, she was referred to pain management and neurosurgery. The patient states she was never contactedby pain management to schedule an appointment, and she did not reach out to their office to schedule one. She also has not been evaluated by neurosurgery. She states she had no health insurance from late March 2024 to April 2024, and this is why she did not see the specialists. The patient has had one migraine per month or less recently. These are adequately relieved by Nurtec. The patient has constant pain in the medial low back and tailbone area. This radiates to the bilateral hips frequently. She describes it as achy. She also has intermittent numbness and paresthesias in her entire bilateral feet. These are aggravated by standing. She states her left knee can buckle intermittently. She denies bowel/bladder incontinence, saddle anesthesia, or recent falls. She does not take any jrks-[id number]-[id number] medications for her pain. She denies numbness or paresthesias in the groin or legs. She denies any further concerns. Review of Systems Constitutional: Negative for appetite change, chills, fatigue, fever and unexpected weight change. HENT: Negative for trouble swallowing and voice change. Eyes: Negative for visual change, double vision or loss of vision Respiratory: Negative for cough, shortness of breath and wheezing. Cardiovascular: Negative for chest pain and palpitations. Gastrointestinal: Negative for abdominal pain, blood in stool, nausea and vomiting. Genitourinary: Positive for urgency (follows with urology). Negative for dysuria and hematuria. Musculoskeletal: Positive for arthralgias, back pain (low back) and myalgias. Negative for gait problem and neck stiffness. Neurological: Positive for numbness and headaches. Negative for dizziness, tremors, seizures, syncope, facial asymmetry, speech difficulty, weakness and light-headedness. Positive for paresthesias Psychiatric/Behavioral: Negative for confusion, hallucinations and suicidal ideas. The patient is not nervous/anxious. Medication List B-D SINGLE USE SWABS REGULAR pads Caplyta 10.5 MG capsule; Generic drug: Lumateperone Tosylate carBAMazepine 100 MG chewable tablet; Commonly known as: TEGretol carbidopa-levodopa 25-100 MG tablet; Commonly known as: Sinemet cholecalciferol 1.25 MG (33160 UT) capsule; Commonly known as: Vitamin D-3 Clobetasol Propionate 0.05 % shampoo; LATHER ON WET HAIR TOPICALLY, LEAVE ON FOR 5 MINUTES THEN RINSE. USE 2 TO 3 TIMES A WEEK cyanocobalamin 1000 MCG tablet; Commonly known as: Vitamin B-12 Dexcom G7 Program Director/Music Director device Dexcom G7 Sensor misc glipiZIDE 5 MG tablet; Commonly known as: Glucotrol ibuprofen 800 MG tablet nabumetone 500 MG tablet; Commonly known as: Relafen Nurtec 75 MG tablet dispersible; Generic drug: Rimegepant Sulfate oxyCODONE-acetaminophen 5-325 MG tablet; Commonly known as: Percocet pramipexole 0.125 MG tablet; Commonly known as: Mirapex pregabalin 100 MG capsule; Commonly known as: Lyrica quetiapine 25 MG tablet; Commonly known as: Seroquel Trulicity 3 MG/0.5ML solution pen-injector; Generic drug: dulaglutide Past Medical History: Diagnosis Date Allergies Anxiety Arthritis Asthma ([facility]) Back pain 06/17/2017 Backache 04/05/2015 Bipolar 1 disorder ([facility]) Bronchitis Chicken pox Chronic back pain DDD (degenerative disc disease), lumbar 06/17/2017 Depression ([facility]) Diabetes mellitus ([facility]) Disturbance of skin sensation 04/05/2015 Insomnia 01/06/2018 Kidney stone Lumbar radiculopathy 01/06/2018 Lumbar spondylosis 01/06/2018 Measles Migraine ([facility]) Muscle weakness 04/05/2015 Overactive bladder Pain in limb 03/04/2015 Pneumonia Radicular pain 03/21/2018 Radiculopathy 03/04/2015 Restless legs syndrome Scarlet fever Tonsillitis Past Surgical History: Procedure Laterality Date BREAST LUMPECTOMY Left 03/2021 CARPAL TUNNEL RELEASE Bilateral SECTION, CLASSIC 2006 CHOLECYSTECTOMY LAPAROSCOPIC HYSTERECTOMY 01/2020 OTHER SURGICAL HISTORY episiotomy repair [facility] for overactive bladder TONSILLECTOMY TOTAL KNEE ARTHROPLASTY Bilateral VAGINAL DELIVERY 1998 WISDOM TOOTH EXTRACTION x4 Family History Problem Relation Name Age of Onset Hypertension Mother Brain cancer Paternal Grandmother Diabetes Other Mental illness Sibling Melanoma Neg Hx Psoriasis Neg Hx Social History Tobacco Use Smoking status: Former Types: Cigarettes Smokeless tobacco: Never Substance Use Topics Alcohol use: Yes Comment: caffeine 1-2 cups per day; soda Allergies: Penicillins, Ropinirole, Topiramate, Aloe vera, Baclofen, Cephalexin, Ciprofloxacin hcl,Ciprofloxacin-ciproflox hcl er, Diclofenac, Menthol, Metformin, Morphine, Naproxen, Sumatriptan, Tramadol, Vitamin e, Azithromycin, Cyclobenzaprine, Gabapentin, Ibuprofen, Nsaids, Tizanidine, and Zonisamide Vitals: 05/07/24 1612 BP: 152/86 Pulse: 106 SpO2: 94% Body mass index is 39.15 kg/m . weight: 221 lb Neurologic exam: Mental status: Awake and alert with unlabored respirations. Oriented to person, place, and time. Recent and remotememory are intact. Speech is clear and fluent without aphasia. Attention and concentration are normal. Fund of knowledge is appropriate for level of education. Flat affect. Cranial nerves: CN II: Visual acuity is normal. Visual flores full to confrontation. CN III, IV, : Pupils are equal, round, and reactive to light. Extraocular movements intact. No ptosis present. CN V: Facial sensation is normal. CN VII: Full and symmetric facial movement. CN VIII: Hearing is normal to finger rub bilaterally. CN IX and X: Palate elevates symmetrically. CN XI: Shoulder shrug is normal bilaterally. CN XII: Tongue is midline without atrophy or fasciculation. Motor: RUE strength deltoid , biceps , triceps , wrist extensors , wrist flexor , and animal eviscerator strength 5/5. LUE strength deltoid , biceps , triceps , wrist extensors , wrist flexor , and animal eviscerator strength 5/5. RLE strength iliopsoas, quadriceps, tibialis anterior, plantar flexion, and dorsiflexion strength 5/5. LLE strength iliopsoas, quadriceps, tibialis anterior, plantar flexion, and dorsiflexion strength 5/5. Tone is normal. Sensory: Sensation is intact to light touch throughout all four extremities. Sensation is intact to temperature in all extremities. Reflexes: RUE biceps reflex 2+ , brachioradialis reflex 2+. LUE biceps reflex 2+ , brachioradialis reflex 2+. RLE Knee reflex 1+. LLE Knee reflex 1+. Coordination: Irdzsh-ff-annr testing normal. Rapid alternating movements are normal. Gait: Normal. Review and summary of old records: Labs on 03/31/24: Ferritin 111.0. Iron 61, TIBC 295, iron saturation 20.7%, transferrin 211. [place] [facility] [place]: Mild discovertebral degenerative changes, which are similar to the prior exam from 01/15/23. At L3/L4, there is mild annular disc bulging, greater toward the neural foramen. There is slight facet and ligamentous hypertrophy. There is no significant central stenosis. There is minimal inferior foraminal encroachment. At L4-L5, there is minor annular disc bulging toward the neural foramen. There is moderate facet and ligamentous hypertrophy. Atiny subchondral cyst is associated with the facets on the left laterally. There is continued mild predominantly posterior thecal sac effacement. There is mild to moderate foraminal encroachment, [id number]-tgsa-right. At the lumbosacral junction, there is prominent facet hypertrophy and thickening of ligamentum flavum. There is only subtle thecal sac effacement. There is mild left foraminal encroachment. The right neural foramen is patent. EMG of the right upper extremity on 07/04/23: Normal. MRI lumbar spine without contrast [place] [facility]: Mild posterior disc bulging along with hypertrophic ligamentous and facet joint changes. Mild central spinal canal stenosis at L3-L4 and L5-S1. Mild to moderate canal stenosis at L4-L5. Mild bilateral neuroforaminal narrowing at L4-L5 and L5-S1. MRI of the lumbar spine without contrast in May 2019 [place] [facility]: right parasagittal disc protrusion at L5/S1. Otherwise unremarkable. Assessment/Plan Diagnoses and all orders for this visit: Lumbar radiculopathy Lumbar spondylosis Lumbar facet arthropathy It is my impression that the patient has lumbar radiculopathy. She reports symptoms clinically consistent with this. The patient reports low back pain with intermittent radiation in the proximal L4/L5 dermatomal distribution. MRI of the lumbar spine on 03/11/24 identified mild discovertebral degenerative changes with varying degrees of foraminal encroachment (minimal to moderate) at L3-L4, L4-L5, and L5-S1. This is likely causative for her radicular symptoms. MRI revealed no significant central canal stenosis. The patient has tried epidural injections, facet injections, and reportedly radiofrequency ablation for symptom management in the past without success. Methocarbamol (caused grogginess), baclofen, cyclobenzaprine, and tizanidine were not tolerated previously, and she has a documented allergy to gabapentin. She has documented allergies or intolerances to NSAIDS, diclofenac, ibuprofen, and naproxen. The patient's symptoms have improved with duloxetine and pregabalin but do persist. She would like a refill sent in for duloxetine. I believe she would benefit from neurosurgery consultation and a second opinion by pain management given the somewhat refractory symptoms and limited pharmacologic options for pain control at this time. PLAN: - The patient was referred to neurosurgery at the prior appointment and states she was contacted bythem but never scheduled an appointment. She would like to see neurosurgery. I provided her with the phone number to Dr. Jean Sheehan's office. She states she will call them soon to schedule an appointment - The patient was also referred to [facility] pain management at the prior appointment but states she was never contacted by them. We will look into this referral - Restart duloxetine 30 mg by mouth once a day for 14 days then increase to duloxetine 60 mg by mouth once a day - She is also taking pregabalin 100 mg by mouth twice a day (managed by outside provider) Muscle spasm The patient does experience muscle spasms and myalgia, likely resulting from degenerative changes in the lumbar spine. Trigger point injections provided benefit in the past. PLAN: - I offered to schedule the patient for repeat lumbosacral paraspinal trigger injections. The patient declined RLS (restless leg syndrome) It is my impression that the patient has RLS. She states symptoms are fairly well controlled recently. Ferritin level on 03/31/24 was 110 (goal is > 75 in individuals with RLS), and iron panel was within normal limits. PLAN: - The patient is taking pramipexole 0.125 mg by mouth once a day and carbidopa- levodopa 25-100 mg by mouth twice a day (managed by outside providers). I did send in an increased dose of pramipexole for the patient in March 2024, however, she never increased the dose and states symptoms have since improved Episodic migraine (CMS/HCC) The patient has a longstanding history of migraines. She previously took oxcarbazepine which was initially helpful for migraine prevention, but effectiveness decreased over time. Migraines have been very well controlled recently, and Nurtec is effective for acute migraine treatment. PLAN: - Continue Nurtec 75 mg ODT as needed for migraine . Take no more than 1 dose in 48 hours - Adequate hydration, sleep hygiene, and regular physical activity as tolerated Diagnosis and treatment options discussed in detail. All questions answered. The patient verbalizesunderstanding and is agreeable to the plan. Discussion in layman's terms. Follow up in the office within 4 months; sooner if needed for new or worsening symptoms. Simone Rivera NP [facility] documented in this encounterSaint Alexius [id number] Instructions* Patient Instructions* Simone Rivera NP - 05/07/2024 4:00 PM EDT - Restart duloxetine as directed documented in this encounterSaint Alexius [id number] History of Present illness Narrative* Nikki Spivey, TODD.MEASURER - 03/31/2024 4:50 PM EDT Lisa Mendez [address] [facility] [id number] HISTORY OF PRESENT ILLNESS: Seen 01/27/24 for [...] and use perfume soaps and nevin washes [id number] Ml US of kidney 09/10/23 IMPRESSION: 1. [...] Medical Decision Making Level: 4 - Moderate Nikki Spivey APRN.MEASURER documented in this encounterThe [facility] Telephone encounter Note * Telephone Encounter - Sugey Beckett RN - 02/27/2024 2:26 PM EDT BMI SPECIALTY CARE COORDINATION TELEPHONE ENCOUNTER LATE [...] and remain available to help as needed. [facility]07-25-2024 Miscellaneous Notes* Telephone Encounter - Sugey Beckett RN - 02/27/2024 2:26 PM EDT BMI SPECIALTY CARE COORDINATION TELEPHONE ENCOUNTER LATE [...] to help as needed. documented in this encounterThe [facility] Evaluation note* Author Michael Morley [facility] Authored February 18, 2024 4:23 pm Start [...] foods. She should follow-up closely with the clinical trial associate. Her A1c before starting Victoza was 6.9, [...] She will consider starting exercise with her wood furniture assembler. Before starting our program, her biggest reasons for her weight struggles include skipping breakfast, previously poor sleep, type 2 diabetes, bipolar disorder, depression, stress eating, eating many highly processed foods, decreased activity with her knee and some weight positive medications. She had a past history of significant soda intake. She used to drink 5 large sodas a day when she worked at [employer] or a sixpack of BeGo a day. She should continue to try [...] metabolic blood work regularly with her PCP. [facility] Work Phone: 1(534) 339-648707-16-2024 Evaluation note* Author Susan Orantes [facility] Authored June 16, 2024 11:13am Start weight: 246.1 lbs., sh niharika is down 12.1 lbs today with a weight of 234.0 lbs. and up 15.6 lbs since her last visit on 02/18/2024. Starting waist circumference: 44.0 inches. Starting Date: 04/28/2020. Victoza responder for weight loss. 1. Metabolic syndrome- improving with healthier eating overall and weight loss. She tries to stay away from junk food. She is trying to be more active. She must continue to try to minimize highly processed and takeout foods. She should follow-up closely with the clinical trial associate. Her A1c before starting Victoza was 6.9, [...] She will consider starting exercise with her wood furniture assembler. Before starting our program, her biggest reasons for her weight struggles include skipping breakfast, previously poor sleep, type 2 diabetes, bipolar disorder, depression, stress eating, eating many highly processed foods, decreased activity with her knee and some weight positive medications. She had a past history of significant soda intake. She used to drink 5 large sodas a day when she worked at [employer] or a sixpack of BeGo a day. She should continue to try [...] metabolic blood work regularly with her PCP. [facility] Work Phone: [phone]) 885-353006-27-2024 History of Present illness Narrative* Jax Guerrero Dee Dee, NELIA - 01/30/2024 10:45 AM EDT Images from the original note were not included. Reason for Visit: Established patient: Recheck LT ankle pain. Second Complaint: Review MRI LT ankle HPI: Established patient seen today for follow up examination of LT ankle pain and lateral foot pain. Patient states her LT ankle pain is the same as last office visit. Patient describes pain as achy, sharp and shooting and the pain is on and off. Pain is a 10/10 when at the worst and the patient statesthe lowest it goes down to is a 6/10. Patient states the outer side of her LT ankle and the inner side of her LT foot continues to bother her. Patient denies any injury, trama, or falls since last office visit. Patient was weight-bearing employment is at [employer]. Second Complaint: To review MRI LT ankle without contrast performed on 01-22-2024 at [facility]. Review of Systems: General: Chills denies. Fatigue denies. Fever denies. Night sweats denies. Endocrine: Hyperpigmentation denies. Diabetes denies. Weakness denies. Cardiovascular: Chest pain denies. Shortness of breath denies. Gastrointestinal: Constipation denies. Diarrhea denies. Nausea denies. Vomiting denies. Hematology: Anemia denies. Bleeding problems denies. Easy bruising denies. Musculoskeletal: Bone/joint symptoms denies. Leg cramps denies. Peripheral Vascular: Edema denies. Rest pain denies. Varicose veins denies. Raynaud's denies. Skin: Ulceration denies. Nail changes denies. Rash denies. Skin lesion(s)denies. Neurologic: Dizziness denies. Gait abnormality denies. Headache denies. Tingling/Numbness denies. Examination: General Examination: GENERAL EXAMINATION: awake, aware of surroundings, in no acute distress. Vascular: DORSALIS PEDIS PULSE: 2/4, bilaterally. POSTERIOR TIBIAL PULSE: 2/4, bilaterally. TEMPERATURE GRADIENT: warm to cool. EDEMA: bilateral lower extremity significant lymphedema with in his insufficiency and edema noted. CAPILLARY FILLING TIME(sec): capillary fill intact bilateral digits less than 3 secs. Neurologic: VIBRATORY: normal. SEMMES-ANDRZEJ 5.07 MONOFILAMENT: normal. Dermatologic: HYPERKERATOSIS: Location: distal lateral 3rd digit nail fold right, distal 2nd digit right. NAIL PATHOLOGY: digits 1-5 bilateral are intact, incuvation to the lateral border of the 3rd digital nail bilateral. SKIN PATHOLOGY: texture, turgor, hair growth, within normal limits. Orthopedic: FOOT MORPHOLOGY: planus. JOINT RANGE OF MOTION: decreased STJ ROM with eversion, increased STJ inversion. Decreased ankle joint ROM with dorsiflexion. DEFORMITIES: Decreased arch height is noted bilateral. Upon weightbearing there is eversion of the heel with significant collapse of the arch. Too many toe sign is noted left greater than right. Enlargement/exostosis to the midtarsal joint at the medial arch bilateral R>L. PAIN ELICITED WITH PALPATION OF: Left ankle more discomfort appears to be more medially and laterally along the peroneal tendons posterior ankle extending to almost to the 5th metatarsal base insertion as well as medially on the posterior tibial tendon as well. All tendons appear to be intact except for the discomfort as mentioned to the peroneus tendons and posterior tibial tendons left ankle. PAIN ELICITED WITH ROM: Minimal discomfort noted on adjuvant passive range of motion left ankle pain is more noted when weight-bearing and attempted single leg stance and bilateral heel lift /toe raise which causes minimal discomfort and weakness and instability. MUSCLE STRENGTH: 5/5 for all pedal groups tested. Imaging: Foot X-Ray: 12-17-2023: Left foot x-rays, weightbearing AP/MO views, obtained today shows: Mild pes planovalgus noted with slight lateral deviation of the navicular and the talar head 1st metatarsals congenitallyelongated, toes 3, 4, and 5 are mildly contracted. Otherwise no gross deformities appreciated. Ankle X-Ray: 12-17-2023: Left ankle x-rays, weightbearing AP/MORTISE/LAT views, obtained today shows: significantlower extremity lymphedema and venous insufficiency with swelling noted, no visible sign of fracture, periosteal reaction, gas, foreign body, infection, arthritis, tumor or talar dome lesion. Exostosis noted medial malleolus of unknown consequence as there is no significant pain noted at that location however. MRI: 01-22-2024: MRI left ankle without contrast performed at [facility] shows: Full-thickness tear of the anterior talofibular ligament. Mild tibialis posterior tendinosis. Mild peroneus longus tendinosis. Partial obliteration of the sinus tarsi fat suggesting tarsal sinus ligamentous complex injury. Degenerative changes of the midfoot and hindfoot. Assessment: Left ankle pain - chronic - M25.572, G89.29-Rule out sinus tarsi this with complex ligamentous injury Full-thickness tear anterior talofibular ligament left ankle Posterior tibialis tendinosis Peroneus longus tendinosis Posterior tibial tendonitis left ankle - M76.822 Peroneal tendinitis left ankle and foot - M76.72 Exostosis medial malleolus left ankle- M89.8X7 Left foot pain - M79.672- laterally/medially Hammertoe of left foot - M20.42 Hammertoe of right foot - M20.41 Soft tissue mass - M79.9 Post-traumatic osteoarthritis of right foot midfoot/hindfoot - M19.171 Arthralgia of right foot - M25.571 Pes planovalgus - Q66.6 Lymphedema bilateral lower extremity Venous insufficiency of bilateral lower extremity Edema bilateral lower extremity Morbid obesity Treatment 1. Patient presents today for follow up examination for LEFT ANKLE PAIN, which has been noted on and off for about a year. There there has been no injury or trauma. Patient is weight-bearing employment at local [employer] include significant amount of standing unfortunately. 2. Physical examination was complete. No significant major findings were noted except for discomfort grossly medially laterally ankle along the posterior tibial and peroneal tendons respectively however tendons appear to be intact with strength 5/5 including weight-bearing however pain noted more on weight- bearing obviously. 3. Past x-rays were obtained left foot and left ankle at last visit. Is reviewed again. 4. MRI recently obtained and results were reviewed with the patient at length. 5. Patient was advised about RICE: REST. Patient was advised she needs to significantly reduce all weight-bearing including employment and taking care of her grandchildren if she hopes to get better.She needs to take care of herself. ICE: Patient was advised to apply ice bag topically to area of pain 15-20 minutes on/ off resumed as needed for pain and swelling cover never sleep with ice intact.COMPRESSION: Patient was advised to apply below-knee leg stocking I doubt she will be able to applythis due to the amount of significant swelling of leg with lymphedema and chronic venous insufficiency with edema. Afshan wraps were an option I doubt though this would be of great benefit I doubt she would wear these consistently. ELEVATION: Patient was advised he needs to significantly reduce swelling by elevating feet throughout the day as much as possible I recommend that she perform this at least twice in the morning for half an hour in 3-4 times in the afternoon and evening. I know patient would not be able to do this unfortunately. She was advised if swelling does not improve pain most likely will also not improve. 6. Patient was seeing Dr. Simone Rivera as well [facility] for nerve pathology patient was advised that this time that I would like her to complete treatment with them beforewe proceed with next treatment which would be most likely surgical and she will require complete non weightbearing and immobilization for prolonged period of time which I believe would be very difficult for the patient physically as well as with her family responsibilities. 7. Immobilization: Patient was advised to return to cam walker boot for all weight-bearing. She does admit to having a long leg Cam walker boot to be worn left lower extremity for all weight-bearing.Patient was not happy with this, once again as she does not like the long boot however the short boot allow us to much motion. 8. Patient has nabumetone at home orally she was advised to take that as prescribed by previous physician. Patient stated she could not take Ultram or tramadol due to skin rash. I did not offer her [place] or stronger medication at this time. 9. Patient was advised to contact her employer if she needs a note to be able to wear her cam walker boot at work, we would obviously left her sister on this behalf. 10. Patient was advised she has a very serious condition and she needs to have better compliance have any hopes of healing. 11. Reappoint when neurological testing and symptoms are resolved. documented in this encounterSaint Alexius [id number] Instructions* Patient Instructions* Nikki Spivey APRN.CNP - 01/28/2024 5:16 PM EDT 1.Decrease caffeine intake (energy drinks) 2.Cont increase water intake 3.coconut oil finger application nightly 4.Cranberry tabs 5.Vit C 500-1000 mg 6.Probiotic 7.Avoid perfume soaps or body washes in vaginal area 8.metamucil or stool soften daily documented in this encounterThe [facility]06-[facility] History of Present illness Narrative* Nikki Spivey APRN.CNP - 01/28/2024 4:30 PM EDT Lisa Mendez [address] [facility] [address] [facility] [address] HISTORY OF PRESENT ILLNESS: Seen 11/28/23 by [...] sprays Drink 3 16 oz water daily RAQ=832 Ml Drink energy Drinks Pt take showers and use perfume soaps and nevin washes A1C 12/11/23=5.1 (per pt outside lab Culture 10/14/23=>=100,000 CFU/ml Proteus mirabilis Abnormal Placed on macrobid by Dr. Saenz Location: KEV, UTI, kidney stones Pain Character: [...] Medical Decision Making Level: 4 - Moderate Nikki Spivey APRN.MEASURER documented in this encounterThe [facility] Of [facility]05-20-2024 History of Present illness Narrative* Mimi Hermosillo, JUAN - 12/23/2023 6:27 PM EDT (E11.9) Type [...] 23, 2023 6:27 PM documented in this encounterThe [facility] Of [facility]04-25-2024 History of Present illness Narrative* Tory Quiñonez MA - 11/28/2023 9:12 AM EDT PVR = 0 ml Via bladder scan. * Jacqui Castro MD - 11/27/2023 9:46 AM EDT Images from the original note were not included. [facility] NEW PATIENT CLINIC NOTE SERVICE DATE: 11/27/2023 SERVICE TIME: 9:46 AM NAME: Lisa Mendez REFERRED BY: Consultation requested by Dr. Carter Saenz [address] [facility] [address] for an opinion regarding stress urinary incontinence. My final recommendations will be communicated back to the requesting physician by way of shared medical record or letter via US mail. CHIEF COMPLAINT: incontience HISTORY OF PRESENT ILLNESS: Lisa Mendez is a 48 year old F P2 with PMH including asthma, OA anddepression presenting with incontinence. The patient reports a lot of problems with kidney stonesand incontinence. Seen by Dr. 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 I agree with senior electrical designer and have edited the note. Jacqui Castro MD Urology Staff [facility] documented in this encounterThe [facility] Of [facility]03-25-2024 Evaluation note* Author Susan Orantes [facility] Authored February 18, 2024 4:06 pm Start weight: 246.1 lbs., sh e [...] foods. She should follow-up closely with the clinical trial associate. Her A1c before starting Victoza was 6.9, [...] She could consider starting exercise with her wood furniture assembler. Before starting our program, her biggest reasons for her weight struggles include skipping breakfast, previously poor sleep, type 2 diabetes, bipolar disorder, depression, stress eating, eating many highly processed foods, decreased activity with her knee and some weight positive medications. She had a past history of significant soda intake. She used to drink 5 large sodas a day when she worked at [employer] or a sixpack of BeGo a day. She should continue to try [...] metabolic blood work regularly with her PCP. [facility] Work Phone: 1(736) 154-395203-25-2024 Evaluation note* Author Michael Morley [facility] Authored October 28, 2023 10: 42am Start [...] foods. She should follow-up closely with the clinical trial associate. Her A1c before starting Victoza was 6.9, [...] She could consider starting exercise with her wood furniture assembler. Before starting our program, her biggest reasons for her weight struggles include skipping breakfast, previously poor sleep, type 2 diabetes, bipolar disorder, depression, stress eating, eating many highly processed foods, decreased activity with her knee and some weight positive medications. She had a past history of significant soda intake. She used to drink 5 large sodas a day when she worked at [employer] or a sixpack of BeGo a day. She should continue to try [...] metabolic blood work regularly with her PCP. [facility] Work Phone: 1(776) 890-650703-20-2024 NoteOrthopedic Surgery Subjective 06/19/2023 - Revision, Release, Carpal Tunnel - Left and Tightrope Procedure Left Thumb - Left 10/23/23 Lisa Mendez is a 48 y.o. 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 [...] of the thumb in all planes Strength: animal eviscerator 5/5, thumb 5/5, interossei 5/5. wrist extension/flexion 5/5 Sensation: intact over median, ulnar, and radial nerve distributions Negative carpal tunnel compression test and Negative Tinel's at the Carpal Tunnel Cardiovascular: Well-perfused digits Imaging No imaging performed at this visit. Assessment/Plan Lisa Mendez is a 48 y.o. female s/p Revision, [...] may be an additional personal documentation from me.[facility]03-19-2024 History of Present illness Narrative* Mode Adler PT - 10/22/2023 2:07 PM EDT Program_ID:[id number] Access Code: [email or web address] URL: [email or web address] Date: 10-22-2023 Prepared By: Mode Adler Program [...] THERAPY EVALUATION PLAN OF CARE: Assessment: Lisa Mendez presents with chief complaint of back pain [...] and walk for 1 hour without pain [place] in home exercise program. Patient will decrease [...] Planned: 4 Planned Treatment Interventions: Therapeutic exercise (60065), Neuromuscular re- education (67072), Manual therapy (83337), Therapeutic activities (93880), Self- shelter management (94205), Gait Training (16577), Patient/Family/Caregiver Education, Body Mechanics Training, Functional training [...] Total Knee Replacement-Right Employment: (starting work at 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 PT documented in this encounterThe [facility] Of [facility]03-12-2024 History of Present illness Narrative* Barbara Rubio RT(Yolanda) - 10/15/2023 10:09 AM EDT Radiology Service Progress Note PATIENT NAME: Lisa Mendez DATE OF SERVICE: October 15, 2023 TIME: [...] PATIENT PRESENTS WITH AN IMPLANTABLE OR ATTACHED CADD OPERATOR: No RADIOLOGY DEPARTMENT: LUMBAR XRAY AP/LAT AND FLEXION/EXTENSION PERIPHERAL IV DATA: Not applicable SIGNED BY: KAYDEN Leung) October 15, 2023 10:09 AM documented in this encounterThe [facility] Of [facility]03-12-2024 History of Present illness Narrative* Melony Alamo PA-C - 10/15/2023 8:55 AM EDT [facility] Low Back Pain - Chronic (> 12 weeks) Initial Exam SUBJECTIVE HISTORY OF PRESENT ILLNESS: Lisa Mendez is a 48 year old female who presents with a chief complaint of mid to low back painand is seen in consultation requested by Dr. Carter Saenz for an opinion regarding mid to low [...] RELIEF) 50 mcg/actuation nasal spray Use 1 Mangum in each nostril twicedaily. DULoxetine (CYMBALTA) 60 [...] SIGNATURE: Melony Alamo PA-C PATIENT NAME: Lisa Mendez DATE: October 15, 2023 TIME: 8:56 AM [...] poor sleep hygiene. MRI outside clinic at [facility], has report, will review. Prior pelvic [...] the date of the service which included [id number] patient care,completing clinical documentation, obtaining and/or reviewing [...] forwarded to consulting/requesting physician. CHASITY Breaux PA-C [facility] [address] [place] [address], [address] [place] [address] documented in this encounterThe [facility] Of [facility]03-08-2024 History of Present illness Narrative* Carter Saenz MD - 10/11/2023 3:02 PM EST Lisa Mendez [id number] ADDENDUM Chief Complaint: Incontinence HISTORY OF PRESENT ILLNESS: Lisa Mendez is a 48 year old diabetic obese [...] her back pain. POCT glucose meter Order: [id number] Component Ref Range & Units 3 mo ago Glucose POC 70 - 105 mg/dL 108 High Comment: [email or web address] Results US KIDNEY/BLADDER (Acc#[id number]) (Order [id number]) Patient Info Patient Name Sex Lisa Jimenes ([id number]) Female 1975 09/10/2023 3:16 PM - Radiology, Oru In Impression IMPRESSION: 1. No obstructive nephrolithiasis in the lower pole of the left kidney. 2. No sonographic evidence of right-sided renal calculus. No hydronephrosis in either kidney. 3. Grossly unremarkable sonographic appearance of the urinary bladder. LABS No results found for: PSA No results found for: CREAT POCT glucose meter Order: [id number] Component Ref Range & Units 3 mo ago Glucose POC 70 - 105 mg/dL 108 High Comment: [email or web address] PAST MEDICAL HISTORY Diagnosis Date H/O abdominal [...] ALLERGY RELIEF) 50 mcg/actuation nasal spray 1 Mangum, EACH NOSTRIL, 2 TIMES DAILY furosemide (LASIX) [...] Decision Making Level: 4 - Moderate Carter Saenz MD, PhD [facility] [place] [facility] [id number] October 11, 2023 3:02 PM documented in this encounterThe [facility] Of [facility]03-05-2024 History of Present illness Narrative* Simone Telles, AUD - 10/08/2023 9:55 AM EST Head and Neck [place] AUDIOLOGIC EVALUATION REPORT Name: Lisa Mendez CC#: [id number] Date of Service: 10/08/2023 Date of : 1975 Age: [age] year old Referred by: Sharon Lo [address] [facility] [address] Referred for: Evaluation of suspected change in hearing, tinnitus, or balance. Referral documented: In an order in [facility] Patient's major complaints: Reduced hearing in both ears, Tinnitus in both ears, Dizziness/vertigo/imbalance, Otalgia in both ears Lisa Mendez was seen for a recheck audiologic evaluation. [...] evaluation of middle ear function. CPT code: 10617 RIGHT EAR: Normal ME function. LEFT EAR: Normal ME function. ACOUSTIC REFLEXES Description of procedure: This test is an objective measure of auditory and facial nerve pathways. CPT code: 07912, 05677 RIGHT EAR PROBE EAR: (ipsi right stimulus [...] boneconduction and speech recognition testing. CPT code: 13354 RIGHT EAR: Hearing Sensitivity: Essentially mild sensorineural [...] employed. RECOMMENDATIONS * Continue medical follow-up with Sharon Lo PA-C. * The patient was counseled regarding benefits/limitations of hearing aids and provided written educational materials. * Provided patient with list of sites that provide hearing aids for individuals who have Medicaid. * Re-evaluation as medically indicated or if a change in hearing is noted. Willi Painting, [facility]-A Clinical Office Clerk Assistant SHI Abbrev- iation Definition Degree of hearing sensitivity dB range WNL within normal limits WNL 0 - 20 SNHL sensorineural hearing loss Mild 20-40 CHL conductive hearing loss Moderate 40-55 MHL mixed hearing loss Moderately-Severe 55-70 WRS word recognition score Severe 70-90 ME middle ear Profound 90 + TM tympanic membrane documented in this encounterThe [facility] Of [facility]02-06-2024 History of Present illness Narrative* Yohana Allen RT(R) - 09/10/2023 12:19 PM EST Radiology Service Progress Note PATIENT NAME: Lisa Mendez DATE OF SERVICE: September 10, 2023 TIME: [...] PATIENT PRESENTS WITH AN IMPLANTABLE OR ATTACHED CADD OPERATOR: No RADIOLOGY DEPARTMENT: Ultrasound PERIPHERAL IV DATA: Not applicable SIGNED BY: RT Ang(R) September 10, 2023 12:19 PM documented in this encounterThe [facility] Of [facility]02-06-2024 History of Present illness Narrative* Marley Ya RT(R) - 09/10/2023 9:16 AM EST Radiology Service Progress Note PATIENT NAME: Lisa Mendez DATE OF SERVICE: September 10, 2023 TIME: [...] PATIENT PRESENTS WITH AN IMPLANTABLE OR ATTACHED CADD OPERATOR: No RADIOLOGY DEPARTMENT: CT; Exam(s) Completed: Temporal Bones PERIPHERAL IV DATA: Not applicable SIGNED BY: RT Jacinta(R) September 10, 2023 9:17 AM documented in this encounterThe [facility] Of [facility]01-29-2024 Evaluation note* Encounter Date Diagnosis Assessment Notes [...] M54.5) Aug, Metabolic syndrome (ICD-10 - E88.81) [employer] Other 01-29-2024 Evaluation note* Author Susan Orantes [facility] Authored October 28, 2023 10: 23am Start weight: 246.1 lbs., sh niharika is [...] foods. She should follow-up closely with the clinical trial associate. Her A1c before starting Victoza was 6.9, [...] She could consider starting exercise with her wood furniture assembler. Before starting our program, her biggest reasons for her weight struggles include skipping breakfast, previously poor sleep, type 2 diabetes, bipolar disorder, depression, stress eating, eating many highly processed foods, decreased activity with her knee and some weight positive medications. She had a past history of significant soda intake. She used to drink 5 large sodas a day when she worked at [employer] or a sixpaChicory a day. She should continue to try [...] metabolic blood work regularly with her PCP. [facility] Work Phone: 1(881) 811-825501-15-2024 Evaluation note* Encounter Date Diagnosis Assessment Notes Treatment Notes Treatment Clinical Notes Aug, Type 2 diabetes mellitus without complications (ICD-10 - E11.9) [employer] Other 12-19-2023 NoteOrthopedic Surgery Subjective 06/19/2023 Revision, [...] ulnar, radial nerve sensory distribution Assessment/Plan Lisa Mendez is a 48 y.o. year old female s/p Revision, Release, Carpal Tunnel - Left and Tightrope Procedure Left Thumb - Left (06/19/2023) At this point in time we would like the patient to wean from her brace. She will follow-up in 3 months time. Augustine Villalpando MD PGY-4 Orthopedic Surgery [facility] By using the attestations below, the [...] may be an additional personal documentation from me.[facility]12-12-2023 Evaluation note* Encounter Date Diagnosis Assessment Notes Treatment Notes Treatment Clinical Notes Jul, Type 2 diabetes mellitus without complications (ICD-10 - E11.9) [employer] Other 11-27-2023 NoteOrthopedic Surgery 06/19/2023 Revision, Release, Carpal Tunnel - Left and Tightrope Procedure Left Thumb - Left Lisa Mendez comes in for a post-operative visit after [...] deposit with Congo red staining. Assessment: Lisa Mendez is a 47 y.o. year old female [...] see her back in the clinic 4 wks.[facility] 06-19-2023 NotePatient: Lisa Mendez Procedure Summary Date: 06/19/23 Room / Location: [address] OR Anesthesia Start: 1107 Anesthesia Stop: 1219 Procedures: REVISION, RELEASE, CARPAL TUNNEL (Left: Wrist) TIGHTROPE PROCEDURE LEFT THUMB (Left: Thumb) Diagnosis: Carpal tunnel syndrome of left wrist (Carpal tunnel syndrome of left wrist [G56.02]) Surgeons: Isai Ordoñez MD Responsible Provider: Tyler Wylie MD Anesthesia [...] PACU per anesthesia protocol. No notable events documented.[facility]11-15-2023 Note Airway Date/Time: 06/24/2023 11:37 AM Urgency: elective Airway not difficult General Information and Staff Patient location during procedure: OR Anesthesiologist: Tyler Wylie MD Resident/SPOOL FIXER/CAA: Olivier Stephens MD Performed: resident/SPOOL FIXER/SG and anesthesiologist Indications and Patient Condition Indications for airway management: anesthesia Spontaneous ventilation: present Sedation level: deep Preoxygenated: yes Mask difficulty assessment: 0 - not attempted Planned trial extubation Final Airway Details Final airway type: supraglottic airway Number of attempts at approach: 1UnAv[facility] NotePatient: Lisa Mendez Procedure Information Anesthesia Start Date/Time: 06/19/23 1107 Procedures: REVISION, RELEASE, CARPAL TUNNEL (Left: Wrist) TIGHTROPE PROCEDURE LEFT THUMB (Left: Thumb) - C-ARM, ARTHREX NOTIFIED 06/12 NURIA Location: [address] OR Surgeons: Isai Ordoñez MD Relevant Problems Endocrine/Metabolic (+) Diabetes mellitus [...] products. Plan discussed with attending. Additional Equipment RequestsUnAvita Health System [facility]11-15-2023 Note Peripheral Block Patient location during procedure: pre-op Start time: 06/19/2023 10:25 AM End time: 06/19/2023 10:30 AM Reason for block: primary anesthetic and at surgeon's request Staffing Performed: resident/SPOOL FIXER/CAA and anesthesiologist Anesthesiologist: Tyler Wylie MD Resident/SPOOL FIXER: Olivier Stephens MD Preanesthetic Checklist Completed: patient [...] Heart rate change: no Slow fractionated injection: yesHarrison [facility] Hospital11-08-2023 NoteIF YOU ARE GOING HOME AFTER YOUR SURGERY OR PROCEDURE, FOR YOUR SAFETY, YOUR SURGERY WILL BE CANCELLED IF BOTH OF THE FOLLOWING ARE NOT AVAILABLE: An adult sales route driver helper over the age of 18, that can [...] lenses. Do not wear perfume, make-up, nail palestinian, or lotions on the day of your [...] need to make any changes, please call [phone]. Notify your surgeon if you develop any illness such as a cold, cough, fever, sore throat or vomiting between now and your surgery. Thank you for entrusting us with your care. [facility] Surgical Services TeamHarrison Community Hospital11-06-2023 Evaluation note* Encounter Date Diagnosis Assessment Notes [...] M54.5) Jun, Metabolic syndrome (ICD-10 - E88.81) [employer] Other 11-02-2023 Evaluation note* Encounter Date Diagnosis [...] Jun, Reactive airway disease (ICD-10 - J45.909) [employer] Other 10-31-2023 NoteOrthopedic Surgery Subjective Chief complaint: Chief Complaint Patient presents with Left Hand - Edema, Numbness, Decreased Range Of Motion, Pain Lisa Mendez is a 47 y.o. year old female [...] to immediate. Imaging: None today Assessment/Plan Lisa Mendez is a 47 y.o. year old female [...] see them back in clinic following the procedure.[facility]10-12-2023 Note Attestation with edits by Milan Sellers MD at 05/16/2023 2:48 PM I personally saw and examined the patient on the same date of service as resident/fellow Dr. Morejon. I discussed the findings and therapeutic plan [...] or radiculopathy No follow-ups on file. Yasmani Morejon SUBJECTIVE: Lisa Mendez is a 47 y.o. female who presents to [facility] today for LUE EMG/NCS [...] Moves all extremities spontaneously. Studies: PROCEDURE NOTE: [place] Protocol / Time: Immediately prior to the procedure a time out was called. Relevant documents were present and verified. Site/side verified. Patient identity confirmed verbally with patient. This timeout verifies correct patient, procedure, equipment, production support manager and site/side were marked as required. Verbal consent was obtained, and consent given by patient. Risks of the procedure and alternatives discussed. Risks and benefits of the EMG / NCS were discussed verbally including bleeding, infection and pain. Patient was agreeable to proceed with testing. Please see (more content not included)...[facility]08-31-2023 Note Orthopedic Surgery Subjective Chief complaint: Chief Complaint Patient presents with Right Hand - Follow-up Left Hand - Follow-up Lisa Mendez is a 47 y.o. year old female [...] not show any gross abnormal. Assessment/Plan Lisa Mendez is a 47 y.o. year old female [...] will see her back after that is done.[facility]08-17-2023 Evaluation note* Encounter Date Diagnosis Assessment Notes [...] Other Above note writ ten by Fab Mendez MA, Wall Taper Helper. Edited and approved by Dr. Kenny Villarreal MD. [employer] Other 07-26-2023 Evaluation note* Encounter Date Diagnosis [...] M54.5) Feb, Metabolic syndrome (ICD-10 - E88.81) [employer] Other 07-03-2023 Evaluation note* Encounter Date Diagnosis [...] at her follow up visit. she agreed. [employer] Other 06-26-2023 Evaluation note* Encounter Date Diagnosis [...] note writ ten by Briana Rosales LPN, Wall Taper Helper. Edited and approved by Dr. Kenny Villarreal MD. [employer] Other 06-13-2023 NoteOrthopedic Surgery 10/25/2022 Thumb/index interposition arthroplasty hand - Left 01/15/23 She takes tylenol and remains sore. + numbness tingling. Hypersensitive to incision Lisaher Linda Mendez comes in for a post-operative visit after [...] does not abut against scaphoid Assessment: Lisa Mendez is a 47 y.o. year old female [...] may be an additional personal documentation from me.[facility]05-31-2023 Evaluation note* Encounter Date Diagnosis Assessment Notes [...] Other Above note writ ten by Fab Mendez MA, Wall Taper Helper. Edited and approved by Dr. Kenny Villarreal MD. [employer] Other 05-11-2023 History of Present illness Narrative* Oneyda Valiente, OD - 12/13/2022 2:52 PM EDT (H18.221) Arcus senilis, bilateral (primary encounter diagnosis) Plan: - Recommend cholesterol check with PCP (H52.223) Regular astigmatism, bilateral (H52.4) Bilateral presbyopia Plan: - Spectacle prescription given to patient. - Return for refraction in 1 year. I have confirmed and edited as necessary the relevant ophthalmic history, ROS, and the neuro exam findings as obtained by others. I have seen and examined Lisa Mendez. I also have reviewed and agree with the assessment and plan as stated above and agree with all of its relevant components. Oneyda Valiente OD documented in this encounterThe [facility]05-04-2023 Evaluation note* Encounter Date Diagnosis Assessment Notes [...] note writ ten by Briana Rosales LPN, Wall Taper Helper. Edited and approved by Dr. Kenny Villarreal MD. [employer] Other 05-02-2023 NoteOrthopedic Surgery 10/25/2022 Thumb/index interposition arthroplasty hand - Left Lisa Mendez comes in for a post-operative visit after [...] better than what it was. Assessment: Lisa Mendez is a 47 y.o. year old female [...] weeks to make sure she is doing okay.[facility]04-11-2023 NoteOrthopedic Surgery Visit Description: Postop visit Subjective [...] brace due to the pain. 11/06/2022 Lisa Mendez is a 47 y.o. year old female [...] reviewed: No new imaging today Assessment/Plan Lisa Mendez is a 47 y.o. year old female She is status post L soft tissue interpositional arthroplasty between thumb and index metacarpal bases. DOS: 10/25/2022 -Pin removed in clinic today -She is to remain in her custom brace at all times for the next 3 weeks -12 tablets of [place] prescribed today for continued pain control. 12 [...] OT Pranay Cárdenas MD Orthopedic Surgery, PGY-3 [facility] Pager: [phone] 11/13/22 3:49 PM By using the attestations [...] may be an additional personal documentation from me.[facility]04-08-2023 Note ORTHOPEDIC SURGERY CONSULTATION CHIEF COMPLAINT: Post-op Problem HPI: Lisa Mendez is a 47 y.o. female with complaint of left hand pain. Patient underwent soft tissue interposition arthroplasty with Dr. Ordoñez on 10/25/22. Her postoperative course has been complicated by significant pain and concern for an site infection for which she was evaluated at an outside hospital and the [facility] ED last week. She was also seen in clinic on 11/06/2022, where the Bactrim was continued and her [place] prescription was refilled. Patient reports increased left [...] in the morning., Disp: , Rfl: HYDROcodone-acetaminophen ([place]) 5-325 mg tablet, Take 1 tablet by [...] Rfl: pen needle, diabetic 32 gauge x /32 needle, DIRECTED SUBCUTANEOUSLY DAILY, Disp: , Rfl: potassium chloride CR (K-Tab) 20 mEq ER tablet, TAKE 1 TABLET BY MOUTH ONCE DAILY WITH FOOD, Disp: , Rfl: rimegepant (Nurtec ODT) 75 mg tablet,disintegrating, Nurtec ODT 75 mg disintegrating tablet TAKE 1 TABLET BY MOUTH AT THE ONSET OF MIGRAINE, Disp: , Rfl: Symbicort 160-4.5 mcg/actuation inhaler, INHALE 2 PUFF (more content not included)...[facility]04-04-2023 NoteOrthopedic Surgery Visit Description: Postop visit Subjective Chief complaint: 1st postop visit s/p L soft tissue interpositional arthroplasty between thumb and index metacarpal bases 11/06/22 Lisa Mendez is a 47 y.o. year old female [...] reviewed: No new imaging today Assessment/Plan Lisa Mendez is a 47 y.o. year old female with Arthritis of carpometacarpal (CMC) joint of left thumb [M18.12] She is status post L soft tissue interpositional arthroplasty between thumb and index metacarpal bases. DOS: 10/25/2022 -Maintain pin for an additional 4 weeks -Patient was instructed to remain in custom OT brace for the next 4 weeks -12 tablets of [place] prescribed today for continued pain control -Patient will continue her p.o. course of Bactrim until finishes -Patient to remain off of work for next 4 weeks -Scar massage to both incisions on a daily basis Return to Clinic 4 weeks Pranay Cárdenas MD Orthopedic Surgery, PGY-3 [facility] Pager: [phone] 11/06/22 2:30 PM By using the attestations [...] may be an additional personal documentation from me.[facility]04-02-2023 Note ORTHOPEDIC SURGERY CONSULTATION CHIEF COMPLAINT: postop surgical pain HPI: Lisa Mendez is a 47 y.o. female with complaint [...] Compartments of right upper (more content not included)...[facility]04-01-2023 Progress note Author Walter Zhang [facility] November 03, 2022 4:17pm Note Date/Time November 03, 2022 3:23 pm [facility] [address] [place] [address] Hospitalist Progress Note Signed Patient: Lisa Mendez MR#: [id number] : 1975 Acct:[id number] Age/Sex: 47 / F Adm Date: 3 Loc: 3T Room: [address] [place] [address] Type: ADM IN Attending Dr: Walter Zhang [...] 500 Mg Tablet PO 11/04/23 08:59 DAILY KAROL Budesonide/Formoterol Fumarate 2 puff 11/03/22 09:00 11/03/22 08:36 Budesonide/Formoterol 160-4.5 Mcg 60 Puff/6 Gm Hfa.Aer.Ad INHALATION 11/03/23 08:59 2 puff BID KAROL Administration Carbamazepine 200 mg 11/03/22 09:00 11/03/22 10:40 Carbamazepine 200 Mg Tablet PO 11/03/23 08:59 200 mg BID KAROL Administration Carbidopa/Levodopa 1 tab 11/03/22 02:57 Carbidopa/Levodopa 25-100 Mg 1 Tab Tablet PO 11/03/23 02:56 QHS PRN Restless Leg(S) Celecoxib 200 mg 11/03/22 09:00 11/03/22 10:40 Celecoxib 200 Mg Capsule PO 11/03/23 08:59 200 mg DAILY KAROL Administration Diphenhydramine HCl 50 mg 11/03/22 02:17 11/03/22 02:34 Diphenhydramine 25 Mg Capsule PO 11/03/23 02:16 50 mg Q8H PRN Administration Itching Duloxetine HCl 90 mg 11/03/22 09:00 Duloxetine 30 Mg Capsule.Dr PO 11/03/23 08:59 DAILY KAROL Enoxaparin Sodium 40 mg 11/03/22 10:00 11/03/22 11:24 Enoxaparin 40 Mg/0.4 Ml Syringe SUBCUT 11/03/23 09:59 Not Given DAILY@10 KAROL Furosemide 40 mg 11/03/22 08:00 11/03/22 15:08 Furosemide 40 Mg Tablet PO 11/03/23 07:59 40 mg BID@0800,1600 KAROL Administration Guaifenesin 600 mg 11/03/22 01:12 Guaifenesin 600 Mg Tab.Er.12h PO 11/03/23 01:11 BID PRN Cough Liraglutide 1.8 mg 11/03/22 09:00 11/03/22 10:41 Liraglutide 18 Mg/3 Ml Pen.Injctr SUBCUT 11/03/23 08:59 1.8 mg QAM KAROL Administration Loratadine 10 mg 11/03/22 02:57 Loratadine 10 Mg Tablet PO 11/03/23 02:56 DAILY PRN Allergic Reaction Non-Formulary Medication 75 mg 11/03/22 02:57 Rimegepant [Nurtec Odt] PO DIRECTED PRN Migraine Headache Potassium Chloride 20 meq 11/03/22 09:00 11/03/22 10:40 Potassium Chloride Er 10 Meq Capsule.Er PO 11/03/23 08:59 20 meq DAILY KAROL Administration Prochlorperazine Maleate 10 mg 11/03/22 01:07 Prochlorperazine Maleate 5 Mg Tablet PO 11/03/23 01:06 Q8HR PRN Nausea And Vomiting Sodium Chloride 0 ml 11/02/22 21:39 Sodium Chloride 0.9 % 10 Ml Syringe IV-PUSH 11/02/23 21:38 PRN PRN Flush Sodium Chloride 0 ml 11/03/22 06:00 11/03/22 15:08 Sodium Chloride 0.9 % 10 Ml Syringe IV-PUSH 11/03/23 05:59 10 ml QSHIFT KAROL Administration Trimethoprim/Sulfamethoxazole 1 tab 11/03/22 11:30 11/03/22 15:07 Sulfamethoxazole/Tmp 800-160mg 1 Tab Tablet PO 11/10/22 11:29 1 tab BID KAROL Administration A&P - Hospitalist Assessment/Plan (1) Cellulitis, [...] antibiotics and follow-up with herhand surgeon in [place] Patient is comfortable going home Reiterated the importance of keeping the wound clean. Will order Benadryl for itching Patient will be discharged home on oral antibiotics Patient cannot go to work until cleared by her hand surgeon She is being discharged today. Documented By: Walter Zhang MD 11/03/22 1523 Signed By: <Electronically signed by Walter Zhang MD> 11/03/22 [address] [facility] Work Phone: 1(564) 941-681204-01-2023 Consult note Author Mimi Rodriguez [facility] November 03, 2022 10:54am Note Date/Time November 03, 2022 10:5 5am [facility] [address] [place] [address] Infect. Disease Consult Note Signed Patient: Lisa Mendez MR#: [id number] : 1975 Acct:[id number] Age/Sex: 47 / F Adm Date: 3 Loc: 3T Room: [address] [place] [address] Type: ADM IN Attending Dr: Walter Zhang MD Copies to: MD Jorgito Spangler DO Michael S Blank, MD~ HPI Data of Consult Consult date: 11/03/22 Requesting Physician: Walter Zhang MD Primary Care Provider: Jorgito Sanchez DO Consult Narrative History of present illness: Ms. Mendez is a 47 year old female who just had hand surgery at [facility] a week ago. She apparently had [...] (patient sleeping; did not awaken for me) [facility] Source: Other (Patient asleep.) Vaccinated for COVID-19?: [...] 500 Mg Tablet) 500 mg PO DAILY [facility] Stop: 11/04/23 08:59 Budesonide/Formoterol Fumarate (Budesonide/Formoterol 160-4.5 Mcg 60 Puff/6 Gm Hfa.Aer.Ad) 2 puff INHALATION BID KAROL Stop: 11/03/23 08:59 Last Admin: 11/03/22 08:36 Dose: 2 puff Carbamazepine (Carbamazepine 200 Mg Tablet) 200 mg PO BID [facility] Stop: 11/03/23 08:59 Carbidopa/Levodopa (Carbidopa/Levodopa 25-100 Mg 1 Tab Tablet) 1 tab PO QHS PRN PRN Reason: Restless Leg(S) Stop: 11/03/23 02:56 Celecoxib (Celecoxib 200 Mg Capsule) 200 mg PO DAILY [facility] Stop: 11/03/23 08:59 Diphenhydramine HCl (Diphenhydramine 25 Mg Capsule) 50 mg PO Q8H PRN PRN Reason: Itching Stop: 11/03/23 02:16 Last Admin: 11/03/22 02:34 Dose: 50 mg Duloxetine HCl (Duloxetine 30 Mg Capsule.Dr) 90 mg PO DAILY [facility] Stop: 11/03/23 08:59 Enoxaparin Sodium (Enoxaparin 40 Mg/0.4 Ml Syringe) 40 mg SUBCUT DAILY@10 [facility] Stop: 11/03/23 09:59 Furosemide (Furosemide 40 Mg Tablet) 40 mg PO BID@0800,1600 [facility] Stop: 11/03/23 07:59 Guaifenesin (Guaifenesin 600 Mg Tab.Er.12h) 600 mg PO BID PRN PRN Reason: Cough Stop: 11/03/23 01:11 Ceftaroline Fosamil (Teflaro) 600 mg in 100 mls @ 200 mls/hr IV Q12H [facility] Liraglutide (Liraglutide 18 Mg/3 Ml Pen.Injctr) 1.8 mg SUBCUT QAM [facility] Stop: 11/03/23 08:59 Loratadine (Loratadine 10 Mg Tablet) 10 mg PO DAILY PRN PRN Reason: Allergic Reaction Stop: 11/03/23 02:56 Non-Formulary Medication (Rimegepant [Nurtec Odt]) 75 mg PO DIRECTED PRN PRN Reason: Migraine Headache Potassium Chloride (Potassium Chloride Er 10 Meq Capsule.Er) 20 meq PO DAILY [facility] Stop: 11/03/23 08:59 Prochlorperazine Maleate (Prochlorperazine Maleate 5 Mg Tablet) 10 mg PO Q8HR PRN PRN Reason: Nausea And Vomiting Stop: 11/03/23 01:06 Sodium Chloride (Sodium Chloride 0.9 % 10 Ml Syringe) 0 ml IV-PUSH PRN PRN PRN Reason: Flush Stop: 11/02/23 21:38 Sodium Chloride (Sodium Chloride 0.9 % 10 Ml Syringe) 0 ml IV-PUSH QSHIFT [facility] Stop: 11/03/23 05:59 Exam Physical Exam [...] % (Auto) 59.3 Lymph % (Auto) 30.1 [place] % (Auto) 7.1 Eos % (Auto) 2.9 Baso % (Auto) 0.6 Nucleat RBC Rel Count 0.1 Neut # (Auto) 6.0 Lymph # (Auto) 3.1 [place] # (Auto) 0.7 Eos # (Auto) 0.3 [...] % (Auto) 58.3 Lymph % (Auto) 30.1 [place] % (Auto) 8.3 Eos % (Auto) 2.8 Baso % (Auto) 0.5 Nucleat RBC Rel Count 0.1 Neut # (Auto) 5.3 Lymph # (Auto) 2.7 [place] # (Auto) 0.8 Eos # (Auto) 0.3 [...] an orthopedic procedure in her left hand [facility] about a week ago. She came [...] to go back to her surgeons in [place] to begin with. Blood cultures were drawn though there were no systemic symptoms of infection. The wound culture obtained. Per my discussion with orthopedics with simply placed on oral antibiotics and have her follow-up with her surgeon in [place]. Documented By: Mimi Rodriguez MD 11/03/22 1045 Signed By: <Electronically signed by MD Mimi Rodriguez> 11/03/22 [address] [facility] Work Phone: 1(811) 166-603204-01-2023 Consult note Author Zayda Ku [facility] November 03, 2022 9:45am Note Date/Time November 03, 2022 9:38 am [facility] [address] [place] [address] Orthopedic Consult Note Signed Patient: Lisa Mendez MR#: [id number] : 1975 Acct:[id number] Age/Sex: 47 / F Adm Date: 3 Loc: Room: [address] [place] [address] Type: ADM IN Attending Dr: Walter Zhang MD Copies to: MD Zayda Spangler MD Kaitlin E Schwerer, ~ History of Present Illness HPI Consult date: 11/03/2022 Requesting provider: Walter Zhang MD Consult reason: other History of present illness: 47-year-old woman status post recent revision left thumb trapeziectomy LRTI procedure with supplemental pinning with concern for left thumb/ hand cellulitisand pin tract infection Patient reports that she had undergone a surgical procedure at her left thumb approximately 1 week ago in [place] with Dr. Ordoñez Patient reports that the cast/ splint she [...] History (Updated 11/03/22 @ 01:35 by Rhiannon Mendez APRN) Asthma Bipolar 1 disorder Bronchitis Chronic [...] Creatinine Clear 145.98, Sodium 136, Potassium 4.2, [id number] H, Carbon Dioxide 23.3, Anion Gap 8.9, BUN 13, Creatinine 0.53 L, Est GFR (CKD- EPI) > 60.0, Glucose 106 H, Calcium 8.6 11/03/22 05:09: Corrected WBC 9.1, Uncorrected WBC Count 9.1, RBC 4.18, Hgb 11.7L, Hct 33.6 L, MCV 80.3, MCH 27.9, MCHC 34.8, RDW 13.4, Plt Count 250, MPV 7.3, Neut % (Auto) 58.3, Lymph % (Auto) 30.1, [place] % (Auto) 8.3, Eos % (Auto) 2.8, Baso % (Auto) 0.5, Nucleat RBC Rel Count 0.1, Neut # (Auto) 5.3, Lymph # (Auto) 2.7, [place] # (Auto) 0.8, Eos # (Auto) 0.3, [...] % (Auto) 59.3, Lymph % (Auto) 30.1, [place] % (Auto) 7.1, Eos % (Auto) 2.9, Baso % (Auto) 0.6, Nucleat RBC Rel Count 0.1, Neut # (Auto) 6.0, Lymph # (Auto) 3.1, [place] # (Auto) 0.7, Eos # (Auto) 0.3, Baso # (Auto) 0.1, Monocyte Dist Width17.88, ESR 30 H H & H 11/02/22 11/03/22 Range/Units 21:50 05:09 Hgb 12.7 11.7 L (11.8-15.4) g/dL Hct 36.4 33.6 L (34.0-46.4) % All other labs are normal. Imaging & Diagnostic Results Imaging/Diagnostics: [place] [place] LEFT HAND: 2 views AP and [...] patient follow-up with her orthopedic surgeon at [place] for further direction ofcare, and potential removal of the K wire -Medical comorbidities per the medical team -Pain control: Patient has a history of pain management and may be some difficulty in pain control given her postoperative pain -Vitamin C 500 mg daily for skin and wound healing -[facility] orthopedics will follow peripherally, please call [...] signed by Zayda Ku MD> 11/03/22 0945 [facility] Work Phone: 1(600) 324-950804-01-2023 History and physical note Author Sam Hodges [facility] November 03, 2022 3:34am Note Date/Time November 03, 2022 1:29 am [facility] [address] [place] [address] Hospitalist H&P Signed Patient: Lisa Mendez MR#: [id number] : 1975 Acct:[id number] Age/Sex: 47 / F Adm Date: 3 Loc: Room: [address] [place] [address] Type: ADM IN Attending Dr: Sam Hodges MD Copies to: MD Jorgito Mae DO Paula G Smith, REED CLEANER~ HPI DATE OF EXAMINATION: 11/03/22 CHIEF COMPLAINT: surgical site infection HISTORY OF PRESENT ILLNESS: Ms. Mendez is a 47-year-old female with a PMH [...] sites. She reports that she was at [facility] because her pain was rubbing [...] Zofran. She will be admitted to the MedSur floor under the care of the hospitalist team for further evaluation and treatment. Review of Systems Review of Systems Review of systems: A 10 point review of systems was obtained, negative unless noted in the HPI or below. [facility] Vaccinated for COVID-19?: Yes Medical History (Updated 11/03/22 @ 01:35 by Rhiannon Mendez APRN) Asthma Bipolar 1 disorder Bronchitis Chronic [...] puff inhalation Q4H PRN Shortness Of Breath 02/17/20 [History Confirmed 11/03/22] furosemide 40 mg tablet [...] % (Auto) 30.1 % (.) 11/02/22 21:50 [place] % (Auto) 7.1 % (.) 11/02/22 21:50 Eos % (Auto) 2.9 % (.) 11/02/22 21:50 Baso % (Auto) 0.6 % (.) 11/02/22 21:50 Nucleat RBC Rel Count 0.1 /100 WBC (0-0.5) 11/02/22 21:50 Neut # (Auto) 6.0 x10E3/uL (1.8-7.7) 11/02/22 21:50 Lymph # (Auto) 3.1 x10E3/uL (1.00-4.8) 11/02/22 21:50 [place] # (Auto) 0.7 x10E3/uL (0.0-0.8) 11/02/22 21:50 [...] cellulitis and purulent drainage. Transfer refused from [facility] where the procedure was performed. Will initiate patient on IV Teflaro, consult ID for their assessment. Hibiclens washes 3 times daily as recommended by our orthopedics and surgeon on-call from [facility]. Given the severity of the hand cellulitis, and possible deeper infection, will place patient as inpatient status as she will likely require more than 2 midnights for improvement and stabilization of hand infection and to determine a plan for antibiotic therapy and surgery follow-up on discharge. Documented By: Rhiannon Mendez APRN 11/03/22 0117 Signed By: <Electronically signed by TODD Mendez> 11/03/22 0316 <Electronically signed by Sam Hodges MD> 11/03/22 0334 [facility] Work Phone: 1([phone]) 521-597303-29-2023 NoteOccupational Therapy Orthosis/Splint Evaluation Patient Name: Lisa Mendez Today's Date: 10/31/2022 Treatment time in: 4:55 Treatment time out: 5:30 Cumulative therapy: 35 minutes Diagnosis: Bony impingement between the base of the thumb and index metacarpals of the left hand s/p soft tissue interposition arthroplasty left thumb index metacarpal bases Onset date/date of surgery: 10/25/2022 Referring practitioner: Dr. Dino MD/[facility] ortho Date of last MD [...] services. Reason for plan status: [facility] NotePatient: Lisa Mendez Procedure Summary Date: 10/25/22 Room / Location: [address] [facility] OR Anesthesia Start: 935 Anesthesia Stop: 1101 Procedure: Thumb/index interposition arthroplasty hand (Left: Hand) Diagnosis: Arthritis of carpometacarpal (CMC) joint of left thumb (Arthritis of carpometacarpal (CMC) joint of left thumb [M18.12]) Surgeons: Isai Ordoñez MD Responsible Provider: Eric Joseph MD Anesthesia [...] for discharge from PACU No notable events documented.[facility]03-23-2023 Note Patient: Lisa Mendez Procedure Summary Date: 10/25/22 Room / Location: [facility] OR [address] [place] [address] OR Anesthesia Start: 935 Anesthesia Stop: Procedure: Thumb/index interposition arthroplasty hand (Left: Hand) Diagnosis: Arthritis of carpometacarpal (CMC) joint of left thumb (Arthritis of carpometacarpal (CMC) joint of left thumb [M18.12]) Surgeons: Isai Ordoñez MD Responsible Provider: Eric Joseph MD Anesthesia Type: regional ASA Status: 2 Anesthesia Post Transport Note Transport to: [facility] PACU O2 Route: face mask Oxygen Flow (L/min): 8 Patient Monitor: direct observation Transport: uneventful Patient condition is: [facility]Un[facility] Patient: Lisa Mendez Procedure Information Date/Time: 10/25/2245 Procedure: Thumb/index interposition arthroplasty hand (Left: Hand) - C-ARM Location: [facility] OR [address] [place] [address] OR Surgeons: Isai Ordoñez MD Relevant Problems Other (+) Arthritis of [...] products. Plan discussed with CAA. Additional Equipment RequestsHarrison [facility] Hospital03-23-2023 Note Peripheral Block Patient location during procedure: pre-op Start time: 10/25/2022 9:05 AM End time: 10/25/2022 9:20 AM Reason for block: primary anesthetic and at surgeon's request Staffing Performed: resident/SPOOL FIXER/CAA Anesthesiologist: Eric Joseph MD Resident/SPOOL FIXER: No Foster MD Preanesthetic Checklist Completed: patient [...] Heart rate change: no Slow fractionated injection: [facility]03-15-2023 Evaluation note* Encounter Date Diagnosis Assessment Notes [...] note writ ten by Briana Rosales LPN, Wall Taper Helper. Edited and approved by Dr. Kenny Villarreal MD. [facility] Other 03-14-2023 Evaluation note* Encounter Date Diagnosis [...] M54.5) Oct, Metabolic syndrome (ICD-10 - E88.81) [facility] Other 02-01-2023 Evaluation note* Encounter Date Diagnosis [...] Sep, Other Above note written by Fab Mendez MA, Wall Taper Helper. Edited and approved by Dr. Kenny Villarreal [...] negative findings were considered in medical decision-making. [facility] Other 01-24-2023 Instructions* Patient Instructions* Sharon Lo PA-C - 08/28/2022 3:55 PM EST PLAN: -Eustachian Tube Dysfunction Treatment Instructions for the next 8 weeks: Nasal saline irrigation twice daily am and pm Followed by Flonase (one spray, twice daily) Claritin once daily Follow up to see how you are doing -Recommend following up with your security assurance specialist about your cough documented in this encounterThe [facility]01-[facility]23 History of Present illness Narrative* Sharon Lo PA-C - 08/28/2022 3:41 PM EST Images from the original note were not included. History of Present Illness Ms. LISA MENDEZ is a 47 year old female presenting [...] is patent. TM is clear and intact. Rindeidre Calderon AD 256 512 + + 1024 [...] As for cough, patient to see her security assurance specialist. Follow up in about 8 weeks to monitor symptoms. Orders: Office Visit on 08/28/22 carBAMazepine (TEGRETOL) 200 mg tablet potassium chloride SR (MICRO-K) 10 mEq CR capsule loratadine (CLARITIN) 10 mg tablet sodium chloride (SALINE NASAL) 0.65 % nasal spray fluticasone (FLONASE ALLERGY RELIEF) 50 mcg/actuation nasal spray Procedures: None. Sharon Lo PA-C September 27, 2022 7:07 PM Medical Decision Making: Problems: Moderate: 1+ chronic illnesses with change Risk: Low: Low risk from testing/treatment Medical Decision Making Level: 3 - Low documented in this encounterThe [facility]01-24-2023 Nurse Note* Alisson Souza Ma - 08/28/2022 3:33 PM EST Tobacco Use: Never Was smoking cessation packet given? N/A - Patient is a non-smoker or quit >1 year ago. Was a referral initiated?N/A Patient is a non-smoker documented in this encounterThe [facility]01-24-2023 Evaluation note* Encounter Date Diagnosis Assessment Notes Treatment Notes Treatment Clinical Notes Aug, Hypokalemia (ICD-10 - E87.6) [facility] 01-23-2023 Miscellaneous Notes* Telephone Encounter - [...] She will discuss the dental plan with Sharon at the appointment on 08/28/2022. Rose Connelly RN documented in this encounterThe [facility]01-20-2023 Evaluation note* Encounter Date Diagnosis Assessment Notes [...] has follow up next week with ENT [facility] Other 01-18-2023 Evaluation note* Encounter Date Diagnosis [...] M54.5) Aug, Metabolic syndrome (ICD-10 - E88.81) [facility] Other 01-13-2023 Evaluation note* Encounter Date Diagnosis Assessment Notes Treatment Notes Treatment Clinical Notes Aug, Immune system defect (ICD-10 - D84.9) [employer] [facility] Other 01-11-2023 Evaluation note* Encounter Date Diagnosis Assessment Notes Treatment Notes Treatment Clinical Notes Aug, Type 2 diabetes mellitus without complications (ICD-10 - E11.9) [employer] [facility] Other 01-03-2023 Evaluation note* Encounter Date Diagnosis [...] status testing (ICD-10 - Z01.84) see above [employer] [facility] Other 12-19-2022 Evaluation note* Encounter Date Diagnosis Assessment Notes Treatment Notes Treatment Clinical Notes Jul, Acute cough (ICD-10 - R05.1) [employer] [facility] Other 12-05-2022 Evaluation note* Encounter Date Diagnosis Assessment Notes Treatment Notes Treatment Clinical Notes Jul, Sinus congestion (ICD-10 - R09.81) [employer] [facility] Other 12-05-2022 Evaluation note* Encounter Date Diagnosis Assessment Notes Treatment Notes Treatment Clinical Notes Jul, Type 2 diabetes mellitus without complications (ICD-10 - E11.9) [employer] [facility] Other 12-01-2022 Evaluation note* Encounter Date Diagnosis Assessment Notes Treatment Notes Treatment Clinical Notes Jul, Subacute cough (ICD-10 - R05.2) will continue cough medication and flonase. she has dx of RSV a few weeks ago. has been on doxy and zpack without improvement. she nows that mid next week if not improved she will call and will do sinus CT at that time. [employer] [facility] Other 11-21-2022 Evaluation note* Encounter Date Diagnosis Assessment Notes Treatment Notes Treatment Clinical Notes Jun, Cough, unspecified type (ICD-10 - R05.9) [employer] [facility] Other 11-14-2022 Evaluation note* Encounter Date Diagnosis [...] agrees. Jun, Frequent infections (ICD-10 - Z86.19) [employer] [facility] Other 10-11-2022 Instructions* Patient Instructions* Sharon Lo PA-C - 05/15/2022 3:31 PM EDT [...] appointment, can be virtual documented in this encounterThe [facility]10-11-2022 Nurse Note* Alisson Souza Ma - 05/15/2022 3:24 PM EDT Tobacco Use: Never Was smoking cessation packet given? N/A - Patient is a non-smoker or quit >1 year ago. Was a referral initiated?N/A Patient is a non-smoker documented in this encounterThe [facility]10-11-2022 History of Present illness Narrative* Sharon Lo PA-C - 05/15/2022 3:22 PM EDT Images from the original note were not included. History of Present Illness Ms. LISA MENDEZ is a 46 year old female presenting [...] celecoxib (CELEBREX) 200 mg capsule Procedures: None. Sharon Lo PA-C June 12, 2022 8:05 AM I spent a total of 30 minutes on the date of the service which included [id number] patient care, completing clinical documentation, performing a medically appropriate examination, counseling and educating the patient/family/caregiver, and communicating results to the patient/family/caregiver. documented in this encounterThe [facility]10-03-2022 History of Present illness Narrative* Jairo [place], NICOLE - 05/07/2022 4:00 PM EDT [facility] [place] [place] AUDIOLOGIC EVALUATION REPORT Name: Lisa Mendez CCF#: [id number] Date of Service: 05/07/2022 Date of : 1975 Age: [age] year old Referred by: Sharon Lo PA-C [address] [facility] [address] Referred for: Evaluation of suspected change in hearing, tinnitus, or balance. Referral documented: In an order in [facility] Patient's major complaints: Reduced hearing in both ears, Dizziness/vertigo/imbalance, Re-test hearing bilateral , Otalgia in the right ear Lisa Mendez was seen for a recheck audiologic evaluation [...] which is provoked by positional changes. Ms. Mendez denied tinnitus, otorrhea, and aural fullness/pressure. See [...] evaluation of middle ear function. CPT code: 55046 RIGHT EAR: Normal ME function. LEFT EAR: Normal ME function. ACOUSTIC REFLEXES Description of procedure: This test is an objective measure of auditory and facial nerve pathways. CPT code: 84927, 62464 RIGHT EAR PROBE EAR: (ipsi right stimulus [...] and boneconduction and speech recognition testing. CPT code:98674 RIGHT EAR: Hearing Sensitivity: Mild SNHL 250-8000 [...] testing. RECOMMENDATIONS * Continue medical follow-up with Sharon Lo PA-C as scheduled. * The patient [...] + TM tympanic membrane documented in this encounterThe [facility]09-22-2022 Evaluation note* Encounter Date Diagnosis Assessment Notes [...] see her as needed in the future. [facility] Other 09-22-2022 Evaluation note* Encounter Date Diagnosis Assessment Notes Treatment Notes Treatment Clinical Notes Apr, Chronic venous insufficiency of lower extremity (ICD-10 - I87.2) [employer] [facility] Other 08-31-2022 Evaluation note* Encounter Date Diagnosis [...] were addressed. She understands agrees the plan [employer] [facility] Other 08-29-2022 Evaluation note* Encounter Date Diagnosis [...] with eating. if not will need GI. [employer] [facility] Other 08-04-2022 Evaluation note* Encounter Date Diagnosis [...] M54.5) Mar, Metabolic syndrome (ICD-10 - E88.81) [employer] [facility] Other 07-28-2022 Evaluation note* Encounter Date Diagnosis [...] further questions at conclusion of office visit. [employer] [facility] Other 06-28-2022 Evaluation note* Encounter Date Diagnosis Assessment Notes Treatment Notes Treatment Clinical Notes Jan, Vitamin B12 deficiency (ICD-10 - E53.8) [employer] Other 06-20-2022 Evaluation note* Encounter Date Diagnosis Assessment Notes Treatment Notes Treatment Clinical Notes Jan, Bronchitis (ICD-10 - J40) will do prednisone, she has been on before without issues. She will call if not improved. Jan, Acute non-recurrent sinusitis, unspecified location (ICD-10 - J01.90) will do doxy. she will call if not improved. [employer] Other 06-03-2022 Evaluation note* Encounter Date Diagnosis [...] for potential removal if she is interested. [employer] Other 05-17-2022 Evaluation note* Encounter Date Diagnosis Assessment Notes Treatment Notes Treatment Clinical Notes December, Obesity (ICD-10 - E66.9) December, BMI 37.0-37.9, adult (ICD-10 - Z68.37) December, Other Summary of Visi t: (A) Discussed setting reminders to grab a quick breakfast [employer] Other 05-17-2022 Evaluation note* Encounter Date Diagnosis Assessment Notes Treatment Notes Treatment Clinical Notes December, Cough variant asthma (ICD-10 - J45.991) December, Reactive airway disease (ICD-10 - J45.909) [employer] Other 05-13-2022 Miscellaneous Notes* Telephone Encounter - Sharon Lo PA-C - 12/15/2021 7:06 PM EDT Called patient with MRI results. Had Dr. Tomasa Gipson look them over. No retrocochlear pathology. Ears are still bothering patient but she has not gone to the dentist. Recommended appointment with dentist. Sharon Lo PA-C December 15, 2021 7:09 PM documented in this encounterThe [facility]* Encounter Date Diagnosis Assessment Notes [...] M54.5) Nov, Metabolic syndrome (ICD-10 - E88.81) [employer] Other 03-29-2022 History of Present illness Narrative* Sharon Lo PA-C - 10/31/2021 3:30 PM EDT Images from the original note were not included. History of Present Illness Ms. LISA MENDEZ is a 46 year old female with [...] mupirocin (BACTROBAN) 2 % ointment Procedures: None. Sharon Lo PA-C November 28, 2021 7:39 PM Medical Decision Making: Problems: Moderate: 2+ stable chronic illnesses Data: Unique test(s) ordered: 1 Independent interpretation of test from other physician/QHCP Risk: Moderate: Drug management Medical Decision Making Level: 4 - Moderate documented in this encounterThe [facility]03-29-2022 Instructions* Patient Instructions* Sharon Lo PA-C - 10/31/2021 2:38 PM EDT [...] when you are ready. documented in this encounterThe [facility]03-29-2022 Nurse Note* Sam Sen - 10/31/2021 1:57 PM EDT Tobacco Use: Never Was smoking cessation packet given? N/A - Patient is a non-smoker or quit >1 year ago. Was a referral initiated?N/A Patient is a non-smoker documented in this encounterThe [facility]03-29-[facility] History of Present illness Narrative* Nishi Jonas - 10/31/2021 11:00 AM EDT Head and Neck [place] AUDIOLOGIC EVALUATION REPORT Name: Lisa Mendez [facility]#: [id number] Date of Service: 10/31/2021 Date of : 1975 Age: [age] year old Referred by: Sharon Lo PA-C [id number] [facility] [id number] Referred for: Evaluation of suspected change in hearing, tinnitus, or balance. Referral documented: In an order in Epic Patient's major complaints: Reduced hearing in both ears, dizziness/vertigo/imbalance, otalgia in both ears, pressure/fullness in both ears Ms. Mendez was seen for an initial audiologic evaluation at the request of Sharon Lo PA-C with complaints of bilateral gradual [...] loss, head trauma and noise exposure. Ms. Mendez was seen for an initial audiologic evaluation. [...] is noted. KEITH Branch Doctor of Audiology Associate Professor Of Management Testing was obtained under the direct supervision of Nicole Hines, BENJAMIN/A I verify that I have reviewed the history, test results, and interpretation for this patient. Nicole Hines CCC-A Supervising Office Clerk Assistant SHI Abbrev- iation Definition Degree of hearing sensitivity dB range WNL within normal limits WNL 0 - 20 SNHL sensorineural hearing loss Mild 20-40 CHL conductive hearing loss Moderate 40-55 MHL mixed hearing loss Moderately-Severe 55-70 WRS word recognition score Severe 70-90 ME middle ear Profound 90 + TM tympanic membrane documented in this encounterThe [facility]03-[facility] Evaluation note* Encounter Date Diagnosis Assessment Notes [...] M54.5) Oct, Metabolic syndrome (ICD-10 - E88.81) [employer] Other 02-22-2022 Evaluation note* Encounter Date Diagnosis Assessment Notes Treatment Notes Treatment Clinical Notes Sep, Obesity (ICD-10 - E66.9) Sep, BMI 36.0-36.9,adult (ICD-10 - Z68.36) Sep, Other Summary of Visit: (A) Caution with energy drinks (B) Increase vegetables (C) Reviewed the nutrition label GOALS: Buy veggies from the store on days off Add veggies when cooking dinner [employer] Other 02-11-2022 Evaluation note* Encounter Date Diagnosis Assessment Notes Treatment Notes Treatment Clinical Notes Sep, Vitamin B12 deficiency (ICD-10 - E53.8) [employer] Other 02-07-2022 Evaluation note* Encounter Date Diagnosis Assessment Notes Treatment Notes Treatment Clinical Notes Sep, Cough (ICD-10 - R05.9) Sep, Acute non-recurrent sinusitis, unspecified location (ICD-10 - J01.90) lungs clear, i think cough due to sinus congestion/draina ge. will treat that. allergic to pcn will do doxy. she will call in 1 week if not improving. [employer] Other 01-11-2022 Evaluation note* Encounter Date Diagnosis [...] in agreement will call if things change/worsen. [employer] Other 01-10-2022 Evaluation note* Encounter Date Diagnosis Assessment Notes Treatment Notes Treatment Clinical Notes Aug, Vitamin B12 deficiency (ICD-10 - E53.8) [employer] Other 12-09-2021 Evaluation note* Encounter Date Diagnosis Assessment Notes Treatment Notes Treatment Clinical Notes Jul, Vitamin B12 deficiency (ICD-10 - E53.8) [employer] Other 11-23-2021 Evaluation note* Encounter Date Diagnosis Assessment Notes Treatment Notes Treatment Clinical Notes Jun, Type 2 diabetes mellitus without complications (ICD-10 - E11.9) Jun, Obesity (BMI 35.0-39.9 without comorbidity) (ICD-10 - E66.9) Jun, Vitamin B12 deficiency (ICD-10 - E53.8) Jun, Knee osteoarthritis (ICD-10 - M17.9) Jun, Low back pain (ICD-1 0 - M54.5) Jun, Metabolic syndrome (ICD-10 - E88.81) [employer] Other 11-16-2021 Evaluation note* Encounter Date Diagnosis Assessment Notes Treatment Notes Treatment Clinical Notes Jun, Cough variant asthma (ICD-10 - J45.991) OK to use BREO 1 puff daily if you notice increased wheeze or cough. Jun, Reactive airway disease (ICD-10 - J45.909) [employer] Other 11-11-2021 Evaluation note* Encounter Date Diagnosis [...] or vegetable with every meal or snack [employer] Other 11-09-2021 Evaluation note* Encounter Date Diagnosis Assessment Notes Treatment Notes Treatment Clinical Notes Jun, Vitamin B12 deficiency (ICD-10 - E53.8) Cyanocobalamin, 1ml, right arm, IM Lot# [id number] Exp. Date Aug [address] Morley verbal order/Radha KONG, RN [employer] Other 11-08-2021 Evaluation note* Encounter Date Diagnosis [...] pain related to replacement 7 months ago. [employer] Other conslzf note Author Zayda Ku [facility] November 03, 2022 9:45am Note Date/Time November 03, 2022 9:38 am [facility] [address] [place] [address] Orthopedic Consult Note Signed Patient: Lisa Mendez MR#: [id number] : 1975 Acct:[id number] Age/Sex: 47 / F Adm Date: 3 Loc: Room: [address] [place] [address] Type: ADM IN Attending Dr: Walter Zhang MD Copies to: MD Zayda Spangler MD Kaitlin E Schwerer, DO~ History of Present Illness HPI Consult date: 11/03/2022 Requesting provider: Waltre Zhang MD Consult reason: other History of present illness: 47-year-old woman status post recent revision left thumb trapeziectomy LRTI procedure with supplemental pinning with concern for left thumb/ hand cellulitisand pin tract infection Patient reports that she had undergone a surgical procedure at her left thumb approximately 1 week ago in [place] with Dr. Ordoñez Patient reports that the cast/ splint she [...] History (Updated 11/03/22 @ 01:35 by Rhiannon Mendez APRN) Asthma Bipolar 1 disorder Bronchitis Chronic [...] Creatinine Clear 145.98, Sodium 136, Potassium 4.2, Fnlbseic162 H, Carbon Dioxide 23.3, Anion Gap 8.9, BUN 13, Creatinine 0.53 L, Est GFR (CKD- EPI) > 60.0, Glucose 106 H, Calcium 8.6 11/03/22 05:09: Corrected WBC 9.1, Uncorrected WBC Count 9.1, RBC 4.18, Hgb 11.7L, Hct 33.6 L, MCV 80.3, MCH 27.9, MCHC 34.8, RDW 13.4, Plt Count 250, MPV 7.3, Neut % (Auto) 58.3, Lymph % (Auto) 30.1, [place] % (Auto) 8.3, Eos % (Auto) 2.8, Baso % (Auto) 0.5, Nucleat RBC Rel Count 0.1, Neut # (Auto) 5.3, Lymph # (Auto) 2.7, [place] # (Auto) 0.8, Eos # (Auto) 0.3, [...] % (Auto) 59.3, Lymph % (Auto) 30.1, [place] % (Auto) 7.1, Eos % (Auto) 2.9, Baso % (Auto) 0.6, Nucleat RBC Rel Count 0.1, Neut # (Auto) 6.0, Lymph # (Auto) 3.1, [place] # (Auto) 0.7, Eos # (Auto) 0.3, Baso # (Auto) 0.1, Monocyte Dist Width17.88, ESR 30 H H & H 11/02/22 11/03/22 Range/Units 21:50 05:09 Hgb 12.7 11.7 L (11.8-15.4) g/dL Hct 36.4 33.6 L (34.0-46.4) % All other labs are normal. Imaging & Diagnostic Results Imaging/Diagnostics: [place] LEFT HAND: 2 views AP and [...] patient follow-up with her orthopedic surgeon at [place] for further direction ofcare, and potential removal of the K wire -Medical comorbidities per the medical team -Pain control: Patient has a history of pain management and may be some difficulty in pain control given her postoperative pain -Vitamin C 500 mg daily for skin and wound healing -[facility] orthopedics will follow peripherally, please call with questions or if reevaluation needed. Again, given the superficial nature of the the K wire site infection, would recommend the patient follow-up with [place] and her original orthopedic surgeon for further [...] signed by Zayda Ku MD> 11/03/22 0945 [facility] Work Phone: Consult note Author Mimi Rodriguez [facility] November 03, 2022 10:54am Note Date/Time November 03, 2022 10:5 5am [facility] [address] [place] [address] Infect. Disease Consult Note Signed Patient: Lisa Mendez MR#: [id number] : 1975 Acct:[id number] Age/Sex: 47 / F Adm Date: 3 Loc: Room: [address] [place] [address] Type: ADM IN Attending Dr: Walter Zhang MD Copies to: MD Jorgito Spangler DO Michael S Blank, MD~ HPI Data of Consult Consult date: 11/03/22 Requesting Physician: Walter Zhang MD Primary Care Provider: Jorgito Sanchez DO Consult Narrative History of present illness: Ms. Mendez is a 47 year old female who just had hand surgery at [facility] a week ago. She apparently had [...] (patient sleeping; did not awaken for me) [facility] Source: Other (Patient asleep.) Vaccinated for COVID-19?: [...] 500 Mg Tablet) 500 mg PO DAILY [facility] Stop: 11/04/23 08:59 Budesonide/Formoterol Fumarate (Budesonide/Formoterol 160-4.5 Mcg 60 Puff/6 Gm Hfa.Aer.Ad) 2 puff INHALATION BID [facility] Stop: 11/03/23 08:59 Last Admin: 11/03/22 08:36 Dose: 2 puff Carbamazepine (Carbamazepine 200 Mg Tablet) 200 mg PO BID [facility] Stop: 11/03/23 08:59 Carbidopa/Levodopa (Carbidopa/Levodopa 25-100 Mg 1 Tab Tablet) 1 tab PO QHS PRN PRN Reason: Restless Leg(S) Stop: 11/03/23 02:56 Celecoxib (Celecoxib 200 Mg Capsule) 200 mg PO DAILY [facility] Stop: 11/03/23 08:59 Diphenhydramine HCl (Diphenhydramine 25 Mg Capsule) 50 mg PO Q8H PRN PRN Reason: Itching Stop: 11/03/23 02:16 Last Admin: 11/03/22 02:34 Dose: 50 mg Duloxetine HCl (Duloxetine 30 Mg Capsule.Dr) 90 mg PO DAILY [facility] Stop: 11/03/23 08:59 Enoxaparin Sodium (Enoxaparin 40 Mg/0.4 Ml Syringe) 40 mg SUBCUT DAILY@10 [facility] Stop: 11/03/23 09:59 Furosemide (Furosemide 40 Mg Tablet) 40 mg PO BID@0800,1600 [facility] Stop: 11/03/23 07:59 Guaifenesin (Guaifenesin 600 Mg Tab.Er.12h) 600 mg PO BID PRN PRN Reason: Cough Stop: 11/03/23 01:11 Ceftaroline Fosamil (Teflaro) 600 mg in 100 mls @ 200 mls/hr IV Q12H [facility] Liraglutide (Liraglutide 18 Mg/3 Ml Pen.Injctr) 1.8 mg SUBCUT QAM [facility] Stop: 11/03/23 08:59 Loratadine (Loratadine 10 Mg Tablet) 10 mg PO DAILY PRN PRN Reason: Allergic Reaction Stop: 11/03/23 02:56 Non-Formulary Medication (Rimegepant [Nurtec Odt]) 75 mg PO DIRECTED PRN PRN Reason: Migraine Headache Potassium Chloride (Potassium Chloride Er 10 Meq Capsule.Er) 20 meq PO DAILY [facility] Stop: 11/03/23 08:59 Prochlorperazine Maleate (Prochlorperazine Maleate 5 Mg Tablet) 10 mg PO Q8HR PRN PRN Reason: Nausea And Vomiting Stop: 11/03/23 01:06 Sodium Chloride (Sodium Chloride 0.9 % 10 Ml Syringe) 0 ml IV-PUSH PRN PRN PRN Reason: Flush Stop: 11/02/23 21:38 Sodium Chloride (Sodium Chloride 0.9 % 10 Ml Syringe) 0 ml IV-PUSH QSHIFT [facility] Stop: 11/03/23 05:59 Exam Physical Exam [...] bandage over it. Results Labs 11/03/22 05:09 04/01/23 05:09 Labs: Laboratory Results - last 24 hr 11/02/22 11/02/22 11/02/22 21:50 21:50 21:50 Corrected WBC 10.2 Uncorrected WBC Count 10.2 RBC 4.55 Hgb 12.7 Hct 36.4 MCV 80.1 MCH 28.0 MCHC 35.0 RDW 13.5 Plt Count 270 MPV 7.1 Neut % (Auto) 59.3 Lymph % (Auto) 30.1 [place] % (Auto) 7.1 Eos % (Auto) 2.9 Baso % (Auto) 0.6 Nucleat RBC Rel Count 0.1 Neut # (Auto) 6.0 Lymph # (Auto) 3.1 [place] # (Auto) 0.7 Eos # (Auto) 0.3 [...] % (Auto) 58.3 Lymph % (Auto) 30.1 [place] % (Auto) 8.3 Eos % (Auto) 2.8 Baso % (Auto) 0.5 Nucleat RBC Rel Count 0.1 Neut # (Auto) 5.3 Lymph # (Auto) 2.7 [place] # (Auto) 0.8 Eos # (Auto) 0.3 [...] an orthopedic procedure in her left hand [facility] about a week ago. She came [...] to go back to her surgeons in [place] to begin with. Blood cultures were drawn though there were no systemic symptoms of infection. The wound culture obtained. Per my discussion with orthopedics with simply placed on oral antibiotics and have her follow-up with her surgeon in [place]. Documented By: Mimi Rodriguez MD 11/03/22 1045 Signed By: <Electronically signed by MD Mimi Rodriguez> 11/03/22 1054 [facility] Work Phone: Evaluation + Plan note No data available for this section [facility] Evaluation + Plan note Future Appointments Appointment Date:09/23/2024 10:15:00 AM Scheduled Provider:No DESIR MD Location:Critical access hospital Appointment Type:URO Office Visit [facility] Evaluation note* Diagnosis Sensorineural hearing loss, bilateral- Primary Dizziness Dizziness and giddiness Otalgia of both ears Otalgia, unspecified Ear pressure, bilateral documented [facility] this encounter [facility] Diagnosis Otalgia, bilateral- Primary Arthralgia of right temporomandibular joint Arthralgia of temporomandibular joint Sensorineural hearing loss (SNHL) of both ears Tinnitus of both ears Unspecified tinnitus Dizziness Dizziness and giddiness documented in this encounter [facility] CenterEvaluation noteNo InformationNort Apaly[place] Other Evaluation noteNo assessment information available [facility] Work Phone: Evaluation note* Diagnosis Sensorineural hearing loss, bilateral- Primary Dizziness Dizziness and giddiness Right ear pain Otalgia, unspecified documented in this encounter [facility]* Diagnosis Otalgia, bilateral- Primary Sensorineural hearing loss (SNHL) of both ears Dizziness Dizziness and giddiness [facility] Diagnosis Otalgia, bilateral- Primary Sensorineural hearing loss (SNHL) of both ears Tinnitus of both ears Unspecified tinnitus Arthralgia of right temporomandibular joint Arthralgia of temporomandibular joint documented in this encounter [facility]* Diagnosis Onset Date Resolution Status Cellulitis, wound, post-operative acute [facility] Work Phone: Evaluation note* Diagnosis Onset Date Resolution Status Asthma acute Bipolar 1 disorder acute Cellulitis, wound, post-operative acute History of recent surgery ac nieves Left hand pain acute T2DM (type 2 diabetes mellitus) acute [facility] Work Phone: Evaluation note* Diagnosis Arcus senilis, bilateral- Primary Senile corneal changes Regular astigmatism, bilateral Bilateral presbyopia Presbyopia documented in this encounter [facility]* Diagnosis Sensorineural hearing loss (SNHL) of both ears Dizziness Dizziness and giddiness Tinnitus, bilateral Unspecified tinnitus documented in this encounter [facility]* Diagnosis Ear pain, bilateral- Primary Sensorineural hearing loss (SNHL) of both ears Tinnitus, bilateral Unspecified tinnitus Dizziness Dizziness and giddiness documented in this encounter [facility]* Diagnosis Stress incontinence of urine- Primary Stress incontinence, male documented in this encounter [facility]* Diagnosis Facet degeneration of lumbar [...] Pelvic muscle wasting documented in this encounter [facility]* Diagnosis PTTD (posterior tibial tendon dysfunction)- [...] and myositis, unspecified documented in this encounter [facility]* Diagnosis Stress incontinence of urine- Primary Screening for genitourinary condition Screening for other and unspecified genitourinary condition Overactive bladder Hypertonicity of bladder Other constipation Vaginal pain Unspecified symptom associated with female genital organs documented in this encounter [facility]* Diagnosis Type 2 diabetes mellitus without retinopathy (HCC)- Primary Type II or unspecified type diabetes mellitus without mention of complication, not stated as uncontrolled Bilateral presbyopia Presbyopia Dry eye syndrome of bilateral lacrimal glands Tear film insufficiency, unspecified documented in this encounter [facility]* Diagnosis Stress incontinence of urine- Primary Overactive bladder Hypertonicity of bladder Urinary tract infection without hematuria, site unspecified Vaginal dryness Other specified symptom associated with female genital organs Kidney stone Calculus of kidney [facility] Diagnosis 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- Primary Kidney stone Calculus of kidney Urinary tract infection without hematuria, site unspecified documented in this encounter [facility]* Diagnosis Spinal stenosis, lumbar region with neurogenic claudication Lumbar foraminal stenosis Spinal stenosis, lumbar region, without neurogenic claudication Facet degeneration of lumbar region Lumbosacral spondylosis without myelopathy Restless legs syndrome Restless legs syndrome (RLS) Disturbance of skin sensation documented in this encounter [facility]* Diagnosis Lumbar radiculopathy- Primary Thoracic or lumbosacral neuritis or radiculitis, unspecified Lumbar spondylosis Lumbosacral spondylosis without myelopathy Lumbar facet arthropathy Spondylosis of unspecified site without mention of myelopathy Muscle spasm Spasm of muscle RLS (restless legs syndrome) Restless legs syndrome (RLS) Episodic migraine (CMS/HCC) Neuropathy Mononeuritis of unspecified site documented in this encounter [facility] HealthcareEvaluation note* Diagnosis Onset Date Resolution Status Burn acute [facility] Work Phone: Evaluation note* Diagnosis Onset Date Resolution Status Burn acute Lumbar strain acute [facility] Work Phone: Evaluation note* Diagnosis Closed nondisplaced fracture of middle phalanx of lesser toe of right foot, initial encounter- Primary documented in this encounter [facility] HealthcareEvaluation note* Diagnosis Closed nondisplaced fracture of middle phalanx of lesser toe of right foot, initial encounter- Primary documented in this encounter [facility] HealthcareEvaluation note* Diagnosis Closed nondisplaced fracture of middle phalanx of lesser toe of right foot, initial encounter- Primary Contracture of left ankle Posterior tibial tendinitis of left leg documented in this encounter [facility] HealthcareEvaluation note* Diagnosis Chronic pain of left ankle- Primary Tendinosis of ankle documented in this encounter [facility] HealthcareEvaluation note* Diagnosis Closed nondisplaced fracture of middle phalanx of lesser toe of right foot, initial encounter- Primary Posterior tibial tendinitis of left leg Contracture of left ankle Other specified disorders of synovium, left ankle and foot documented in this encounter [facility] HealthcareEvaluation note* Diagnosis Pain of left hand- Primary Pain in limb documented in this encounter [facility]* Diagnosis Lumbar spondylosis- Primary Lumbosacral spondylosis without myelopathy Lumbar facet arthropathy Spondylosis of unspecified site without mention of myelopathy Lumbosacral radiculopathy Thoracic or lumbosacral neuritis or radiculitis, unspecified Muscle spasm Spasm of muscle RLS (restless legs syndrome) Restless legs syndrome (RLS) Episodic migraine (CMS/HCC) Closed nondisplaced fracture of middle phalanx of lesser toe of right foot, initial encounter- Primary Posterior tibial tendinitis of left leg Other specified disorders of synovium, left ankle and foot documented in this encounter [facility] HealthcareEvaluation note* Diagnosis Pain of left hand Pain in limb documented in this encounter [facility]* Diagnosis Closed nondisplaced fracture of middle phalanx of lesser toe of right foot, initial encounter- Primary Posterior tibial tendinitis of left leg Contracture of left ankle Other specified disorders of synovium, left ankle and foot Contracture of right ankle documented in this encounter [facility] HealthcareEvaluation note* Diagnosis H/O thumb surgery- Primary Personal history of surgery to other organs De Quervain's tenosynovitis, left Radial styloid tenosynovitis documented [facility]* Diagnosis Closed nondisplaced fracture of middle phalanx of lesser toe of right foot, initial encounter- Primary Posterior tibial tendinitis of left leg Other specified disorders of synovium, left ankle and foot Contracture of right ankle Contracture of left ankle DJD (degenerative joint disease), ankle and foot, left DJD (degenerative joint disease), ankle and foot, right documented in this encounter [facility] HealthcareEvaluation note* Diagnosis H/O thumb surgery- Primary Personal history of surgery to other organs De Quervain's tenosynovitis, left Radial styloid tenosynovitis Primary osteoarthritis of first carpometacarpal joint of left hand Primary localized osteoarthrosis, hand Right hand pain Pain in limb [facility] Diagnosis Right hand pain Pain in limb documented in this encounter [facility]* Diagnosis Pain due to total knee replacement, initial encounter ([facility]) (HCC)- Primary documented [facility]* Diagnosis Acute pain of left knee [facility] Diagnosis H/O thumb surgery- Primary Personal history of surgery to other organs Primary osteoarthritis of first carpometacarpal joint of left hand Primary localized osteoarthrosis, hand De Quervain's tenosynovitis Radial styloid tenosynovitis H/O thumb surgery Personal history of surgery to other organs Primary osteoarthritis of first carpometacarpal joint of left hand Primary localized osteoarthrosis, hand De Quervain's tenosynovitis Radial styloid tenosynovitis documented [facility] Diagnosis Pre-op examination- Primary Preoperative examination, unspecified Other migraine without status migrainosus, not intractable Bipolar 1 disorder ([facility]) Bipolar I disorder, most recent episode (or current) unspecified Morbid obesity (HCC) Morbid obesity Type 2 diabetes mellitus without retinopathy (HCC) Type II or unspecified type diabetes mellitus without mention of complication, not stated as uncontrolled Kidney stones Calculus of kidney Uncomplicated asthma, unspecified asthma severity, unspecified whether persistent (HCC) Current smoker Tobacco use disorder Sleep apnea, unspecified type Restless legs Restless legs syndrome (RLS) Posttraumatic stress disorder S/P lumpectomy, left breast Other postprocedural status H/O thumb surgery Personal history of surgery to other organs Primary osteoarthritis of first carpometacarpal joint of left hand Primary localized osteoarthrosis, hand De Quervain's tenosynovitis Radial styloid tenosynovitis * Assessment & Plan Note - Mimi Meade APRN.CNP - 11/18/2024 8:21 AM EDT Associated Problem(s): S/P lumpectomy, left breast Assessment: states benign breast mass * Assessment & Plan Note - Mimi Meade APRN.CNP - 11/18/2024 8:20 AM EDT Associated Problem(s): Posttraumatic stress disorder Assessment: denies panic in hospital setting * Assessment & Plan Note - Mimi Meade APRN.CNP - 11/18/2024 8:16 AM EDT Associated Problem(s): Restless legs Assessment: stable on sinemet * Assessment & Plan Note - Mimi Meade APRN.CNP - 11/18/2024 8:15 AM EDT Associated Problem(s): Sleep apnea Assessment: cannot tolerate CPAP * Assessment & Plan Note - Mimi Meade APRN.CNP - 11/18/2024 8:15 AM EDT Associated Problem(s): Current smoker Assessment: vapes daily. Nicotine, thc, cbd Agrees to abstain for 7 days prior to surgery * Assessment & Plan Note - Mimi Meade APRN.CNP - 11/18/2024 8:14 AM EDT Associated Problem(s): Asthma (HCC) Assessment: stable and asymptomatic, uses inhalers. No recent URI. Lungs clear to auscultation Denies use of supplemental oxygen Today, 98% on RA * Assessment & Plan Note - Mimi Meade APRN.CNP - 11/18/2024 8:14 AM EDT Associated Problem(s): Kidney stones Assessment: h/o stones. No current issues * Assessment & Plan Note - Mimi Meade APRN.CNP - 11/18/2024 8:12 AM EDT Associated Problem(s): Type 2 diabetes mellitus without retinopathy (HCC) Assessment: Currently taking metformin, trulicity, injects Trulicity on Mondays, will skip doses on 11/30/24, 12/07/24, resume after surgery which is currently scheduled on 12/07/2024 Patient is aware that glucose must be <200 day of surgery A1C 06/17/24 5.8 [facility] * Assessment & Plan Note - Mimi Meade APRN.CNP - 11/18/2024 8:11 AM EDT Associated Problem(s): Morbid obesity (HCC) Assessment: Body mass index is 42.18 kg/m . * Assessment & Plan Note - Mimi Meade APRN.CNP - 11/18/2024 8:11 AM EDT Associated Problem(s): Bipolar 1 disorder (HCC) Assessment: stable on meds, follows with specialist, denies SI/HI * Assessment & Plan Note - Mimi Meade APRN.CNP - 11/18/2024 8:10 AM EDT Associated Problem(s): Migraine Assessment: controlled, stable on med documented [facility] encounter [facility] Diagnosis Dental infection- Primary documented in this encounter [facility]* Diagnosis Capsulitis of metatarsophalangeal (MTP) joint of right foot- Primary Posterior tibial tendinitis of left leg Other specified disorders of synovium, left ankle and foot documented in this encounter [facility] note* Diagnosis Pre-op examination- Primary Preoperative examination, unspecified Other migraine without status migrainosus, not intractable Bipolar 1 disorder (HCC) Bipolar I disorder, most recent episode (or current) unspecified Morbid obesity (HCC) Morbid obesity Type 2 diabetes mellitus without retinopathy (HCC) Type II or unspecified type diabetes mellitus without mention of complication, not stated as uncontrolled Kidney stones Calculus of kidney Uncomplicated asthma, unspecified asthma severity, unspecified whether persistent (HCC) Current smoker Tobacco use disorder Sleep apnea, unspecified type Restless legs Restless legs syndrome (RLS) Posttraumatic stress disorder S/P lumpectomy, left breast Other postprocedural status Pre-op evaluation- Primary Preoperative examination, unspecified Morbid obesity (HCC) Morbid obesity Other migraine without status migrainosus, not intractable Uncomplicated asthma, unspecified asthma severity, unspecified whether persistent (HCC) Current smoker Tobacco use disorder Sleep apnea, unspecified type Type 2 diabetes mellitus without retinopathy (HCC) Type II or unspecified type diabetes mellitus without mention of complication, not stated as uncontrolled Bipolar 1 disorder (HCC) Bipolar I disorder, most recent episode (or current) unspecified Posttraumatic stress disorder Marijuana use Cannabis abuse, unspecified H/O thumb surgery Personal history of surgery to other organs Primary osteoarthritis of first carpometacarpal joint of left hand Primary localized osteoarthrosis, hand De Quervain's tenosynovitis Radial styloid tenosynovitis [facility] Diagnosis Osteochondritis dissecans of right ankle- Primary Capsulitis of metatarsophalangeal (MTP) joint of right foot Posterior tibial tendinitis of left leg Other specified disorders of synovium, left ankle and foot [facility] Diagnosis Pre-op examination- Primary Preoperative examination, unspecified Other migraine without status migrainosus, not intractable Bipolar 1 disorder (HCC) Bipolar I disorder, most recent episode (or current) unspecified Morbid obesity (HCC) Morbid obesity Type 2 diabetes mellitus without retinopathy (HCC) Type II or unspecified type diabetes mellitus without mention of complication, not stated as uncontrolled Kidney stones Calculus of kidney Uncomplicated asthma, unspecified asthma severity, unspecified whether persistent (HCC) Current smoker Tobacco use disorder Sleep apnea, unspecified type Restless legs Restless legs syndrome (RLS) Posttraumatic stress disorder S/P lumpectomy, left breast Other postprocedural status Post-operative state- Primary Other postprocedural status [facility] Diagnosis Pre-op examination- Primary Preoperative examination, unspecified Other migraine without status migrainosus, not intractable Bipolar 1 disorder (HCC) Bipolar I disorder, most recent episode (or current) unspecified Morbid obesity (HCC) Morbid obesity Type 2 diabetes mellitus without retinopathy (HCC) Type II or unspecified type diabetes mellitus without mention of complication, not stated as uncontrolled Kidney stones Calculus of kidney Uncomplicated asthma, unspecified asthma severity, unspecified whether persistent (HCC) Current smoker Tobacco use disorder Sleep apnea, unspecified type Restless legs Restless legs syndrome (RLS) Posttraumatic stress disorder S/P lumpectomy, left breast Other postprocedural status Post-operative state- Primary Other postprocedural status documented in this encounter [facility]* Diagnosis Pre-op examination- Primary Preoperative examination, unspecified Other migraine without status migrainosus, not intractable Bipolar 1 disorder (HCC) Bipolar I disorder, most recent episode (or current) unspecified Morbid obesity (HCC) Morbid obesity Type 2 diabetes mellitus without retinopathy (HCC) Type II or unspecified type diabetes mellitus without mention of complication, not stated as uncontrolled Kidney stones Calculus of kidney Uncomplicated asthma, unspecified asthma severity, unspecified whether persistent (HCC) Current smoker Tobacco use disorder Sleep apnea, unspecified type Restless legs Restless legs syndrome (RLS) Posttraumatic stress disorder S/P lumpectomy, left breast Other postprocedural status Postoperative state- Primary Other postprocedural status documented in this encounter [facility] note* Diagnosis Pre-op examination- Primary Preoperative examination, unspecified Other migraine without status migrainosus, not intractable Bipolar 1 disorder (HCC) Bipolar I disorder, most recent episode (or current) unspecified Morbid obesity (HCC) Morbid obesity Type 2 diabetes mellitus without retinopathy (HCC) Type II or unspecified type diabetes mellitus without mention of complication, not stated as uncontrolled Kidney stones Calculus of kidney Uncomplicated asthma, unspecified asthma severity, unspecified whether persistent (HCC) Current smoker Tobacco use disorder Sleep apnea, unspecified type Restless legs Restless legs syndrome (RLS) Posttraumatic stress disorder S/P lumpectomy, left breast Other postprocedural status Post-operative state Other postprocedural status documented in this encounter [facility] note* Diagnosis Pre-op examination- Primary Preoperative examination, unspecified Other migraine without status migrainosus, not intractable Bipolar 1 disorder (HCC) Bipolar I disorder, most recent episode (or current) unspecified Morbid obesity (HCC) Morbid obesity Type 2 diabetes mellitus without retinopathy (HCC) Type II or unspecified type diabetes mellitus without mention of complication, not stated as uncontrolled Kidney stones Calculus of kidney Uncomplicated asthma, unspecified asthma severity, unspecified whether persistent (HCC) Current smoker Tobacco use disorder Sleep apnea, unspecified type Restless legs Restless legs syndrome (RLS) Posttraumatic stress disorder S/P lumpectomy, left breast Other postprocedural status Postoperative state- Primary Other postprocedural status documented in this encounter [facility] note* Diagnosis Pre-op examination- Primary Preoperative examination, unspecified Other migraine without status migrainosus, not intractable Bipolar 1 disorder (HCC) Bipolar I disorder, most recent episode (or current) unspecified Morbid obesity (HCC) Morbid obesity Type 2 diabetes mellitus without retinopathy (HCC) Type II or unspecified type diabetes mellitus without mention of complication, not stated as uncontrolled Kidney stones Calculus of kidney Uncomplicated asthma, unspecified asthma severity, unspecified whether persistent (HCC) Current smoker Tobacco use disorder Sleep apnea, unspecified type Restless legs Restless legs syndrome (RLS) Posttraumatic stress disorder S/P lumpectomy, left breast Other postprocedural status Postoperative state- Primary Other postprocedural status documented in this encounter [facility] note* Diagnosis Pre-op examination- Primary Preoperative examination, unspecified Other migraine without status migrainosus, not intractable Bipolar 1 disorder (HCC) Bipolar I disorder, most recent episode (or current) unspecified Morbid obesity (HCC) Morbid obesity Type 2 diabetes mellitus without retinopathy (HCC) Type II or unspecified type diabetes mellitus without mention of complication, not stated as uncontrolled Kidney stones Calculus of kidney Uncomplicated asthma, unspecified asthma severity, unspecified whether persistent (HCC) Current smoker Tobacco use disorder Sleep apnea, unspecified type Restless legs Restless legs syndrome (RLS) Posttraumatic stress disorder S/P lumpectomy, left breast Other postprocedural status Postoperative state Other postprocedural status documented in this encounter [facility] note* Diagnosis Pre-op examination- Primary Preoperative examination, unspecified Other migraine without status migrainosus, not intractable Bipolar 1 disorder (HCC) Bipolar I disorder, most recent episode (or current) unspecified Morbid obesity (HCC) Morbid obesity Type 2 diabetes mellitus without retinopathy (HCC) Type II or unspecified type diabetes mellitus without mention of complication, not stated as uncontrolled Kidney stones Calculus of kidney Uncomplicated asthma, unspecified asthma severity, unspecified whether persistent (HCC) Current smoker Tobacco use disorder Sleep apnea, unspecified type Restless legs Restless legs syndrome (RLS) Posttraumatic stress disorder S/P lumpectomy, left breast Other postprocedural status Post-operative state Other postprocedural status [facility] Diagnosis Osteochondritis dissecans of right ankle- Primary DJD (degenerative joint disease), ankle and foot, left DJD (degenerative joint disease), ankle and foot, right Posterior tibial tendinitis of left leg [facility] Diagnosis Pre-op examination- Primary Preoperative examination, unspecified Other migraine without status migrainosus, not intractable Bipolar 1 disorder (HCC) Bipolar I disorder, most recent episode (or current) unspecified Morbid obesity (HCC) Morbid obesity Type 2 diabetes mellitus without retinopathy (HCC) Type II or unspecified type diabetes mellitus without mention of complication, not stated as uncontrolled Kidney stones Calculus of kidney Uncomplicated asthma, unspecified asthma severity, unspecified whether persistent (HCC) Current smoker Tobacco use disorder Sleep apnea, unspecified type Restless legs Restless legs syndrome (RLS) Posttraumatic stress disorder S/P lumpectomy, left breast Other postprocedural status Postoperative state- Primary Other postprocedural status [facility] Diagnosis Pre-op examination- Primary Preoperative examination, unspecified Other migraine without status migrainosus, not intractable Bipolar 1 disorder (HCC) Bipolar I disorder, most recent episode (or current) unspecified Morbid obesity (HCC) Morbid obesity Type 2 diabetes mellitus without retinopathy (HCC) Type II or unspecified type diabetes mellitus without mention of complication, not stated as uncontrolled Kidney stones Calculus of kidney Uncomplicated asthma, unspecified asthma severity, unspecified whether persistent (HCC) Current smoker Tobacco use disorder Sleep apnea, unspecified type Restless legs Restless legs syndrome (RLS) Posttraumatic stress disorder S/P lumpectomy, left breast Other postprocedural status Postoperative state- Primary Other postprocedural status [facility]* Diagnosis DJD (degenerative joint disease), ankle and foot, left- Primary DJD (degenerative joint disease), ankle and foot, right Posterior tibial tendinitis of left leg Posterior tibial tendonitis of right leg [facility] Diagnosis Pre-op examination- Primary Preoperative examination, unspecified Other migraine without status migrainosus, not intractable Bipolar 1 disorder (HCC) Bipolar I disorder, most recent episode (or current) unspecified Morbid obesity (HCC) Morbid obesity Type 2 diabetes mellitus without retinopathy (HCC) Type II or unspecified type diabetes mellitus without mention of complication, not stated as uncontrolled Kidney stones Calculus of kidney Uncomplicated asthma, unspecified asthma severity, unspecified whether persistent (HCC) Current smoker Tobacco use disorder Sleep apnea, unspecified type Restless legs Restless legs syndrome (RLS) Posttraumatic stress disorder S/P lumpectomy, left breast Other postprocedural status Postoperative state- Primary Other postprocedural status documented in this encounter [facility] note* Diagnosis Pre-op examination- Primary Preoperative examination, unspecified Other migraine without status migrainosus, not intractable Bipolar 1 disorder (HCC) Bipolar I disorder, most recent episode (or current) unspecified Morbid obesity (HCC) Morbid obesity Type 2 diabetes mellitus without retinopathy (HCC) Type II or unspecified type diabetes mellitus without mention of complication, not stated as uncontrolled Kidney stones Calculus of kidney Uncomplicated asthma, unspecified asthma severity, unspecified whether persistent (HCC) Current smoker Tobacco use disorder Sleep apnea, unspecified type Restless legs Restless legs syndrome (RLS) Posttraumatic stress disorder S/P lumpectomy, left breast Other postprocedural status Chronic pain of left thumb- Primary [facility] Diagnosis Pre-op examination- Primary Preoperative examination, unspecified Other migraine without status migrainosus, not intractable Bipolar 1 disorder (HCC) Bipolar I disorder, most recent episode (or current) unspecified Morbid obesity (HCC) Morbid obesity Type 2 diabetes mellitus without retinopathy (HCC) Type II or unspecified type diabetes mellitus without mention of complication, not stated as uncontrolled Kidney stones Calculus of kidney Uncomplicated asthma, unspecified asthma severity, unspecified whether persistent (HCC) Current smoker Tobacco use disorder Sleep apnea, unspecified type Restless legs Restless legs syndrome (RLS) Posttraumatic stress disorder S/P lumpectomy, left breast Other postprocedural status Post-operative state Other postprocedural status documented in this encounter [facility] note* Diagnosis Pre-op examination- Primary Preoperative examination, unspecified Other migraine without status migrainosus, not intractable Bipolar 1 disorder (HCC) Bipolar I disorder, most recent episode (or current) unspecified Morbid obesity (HCC) Morbid obesity Type 2 diabetes mellitus without retinopathy (HCC) Type II or unspecified type diabetes mellitus without mention of complication, not stated as uncontrolled Kidney stones Calculus of kidney Uncomplicated asthma, unspecified asthma severity, unspecified whether persistent (HCC) Current smoker Tobacco use disorder Sleep apnea, unspecified type Restless legs Restless legs syndrome (RLS) Posttraumatic stress disorder S/P lumpectomy, left breast Other postprocedural status Postoperative state- Primary Other postprocedural status documented in this encounter [facility] note* Diagnosis Pre-op examination- Primary Preoperative examination, unspecified Other migraine without status migrainosus, not intractable Bipolar 1 disorder (HCC) Bipolar I disorder, most recent episode (or current) unspecified Morbid obesity (HCC) Morbid obesity Type 2 diabetes mellitus without retinopathy (HCC) Type II or unspecified type diabetes mellitus without mention of complication, not stated as uncontrolled Kidney stones Calculus of kidney Uncomplicated asthma, unspecified asthma severity, unspecified whether persistent (HCC) Current smoker Tobacco use disorder Sleep apnea, unspecified type Restless legs Restless legs syndrome (RLS) Posttraumatic stress disorder S/P lumpectomy, left breast Other postprocedural status Pain in right foot- Primary Pain in limb Chronic pain of right ankle Post-traumatic osteoarthritis of right foot Pain in right foot Pain in limb Chronic pain of right ankle [facility] Diagnosis Pre-op examination- Primary Preoperative examination, unspecified Other migraine without status migrainosus, not intractable Bipolar 1 disorder (HCC) Bipolar I disorder, most recent episode (or current) unspecified Morbid obesity (HCC) Morbid obesity Type 2 diabetes mellitus without retinopathy (HCC) Type II or unspecified type diabetes mellitus without mention of complication, not stated as uncontrolled Kidney stones Calculus of kidney Uncomplicated asthma, unspecified asthma severity, unspecified whether persistent (HCC) Current smoker Tobacco use disorder Sleep apnea, unspecified type Restless legs Restless legs syndrome (RLS) Posttraumatic stress disorder S/P lumpectomy, left breast Other postprocedural status Pain in right foot Pain in limb Chronic pain of right ankle [facility]* Diagnosis Acute cystitis without hematuria- Primary Dysuria Candidal skin infection documented in this encounter [facility]Evaluation note* Diagnosis Pre-op examination- Primary Preoperative examination, unspecified Other migraine without status migrainosus, not intractable Bipolar 1 disorder (HCC) Bipolar I disorder, most recent episode (or current) unspecified Morbid obesity (HCC) Morbid obesity Type 2 diabetes mellitus without retinopathy (HCC) Type II or unspecified type diabetes mellitus without mention of complication, not stated as uncontrolled Kidney stones Calculus of kidney Uncomplicated asthma, unspecified asthma severity, unspecified whether persistent (HCC) Current smoker Tobacco use disorder Sleep apnea, unspecified type Restless legs Restless legs syndrome (RLS) Posttraumatic stress disorder S/P lumpectomy, left breast Other postprocedural status Postoperative state- Primary Other postprocedural status documented [facility] this [facility]* Diagnosis Rash and nonspecific skin eruption- Primary Rash and other nonspecific skin eruption Acute left-sided low back pain with left-sided sciatica documented in this encounter [facility] Author Sam Hodges [facility] November 03, 2022 3:34am Note Date/Time November 03, 2022 1:29 am [facility] [address] [place] [address] Hospitalist H&P Signed Patient: Lisa Mendez MR#: [id number] : 1975 Acct:[id number] Age/Sex: 47 / F Adm Date: 3 Loc: Room: [address] [place] [address] Type: ADM IN Attending Dr: Sam Hodges MD Copies to: MD Jorgito Mae DO Paula G Andrea, REED CLEANER~ HPI DATE OF EXAMINATION: 11/03/22 CHIEF COMPLAINT: surgical site infection HISTORY OF PRESENT ILLNESS: Ms. Mendez is a 47-year-old female with a PMH [...] sites. She reports that she was at [facility] because her pain was rubbing [...] Zofran. [facility] care of the hospitalist team for further evaluation and treatment. Review of Systems Review of Systems Review of systems: A 10 point review of systems was obtained, negative unless noted in the HPI or below. PMFSH Vaccinated for COVID-19?: Yes Medical History (Updated 11/03/22 @ 01:35 by Rhiannon Mendez APRN) Asthma Bipolar 1 disorder Bronchitis Chronic [...] % (Auto) 30.1 % (.) 11/02/22 21:50 [place] % (Auto) 7.1 % (.) 11/02/22 21:50 Eos % (Auto) 2.9 % (.) 11/02/22 21:50 Baso % (Auto) 0.6 % (.) 11/02/22 21:50 Nucleat RBC Rel Count 0.1 /100 WBC (0-0.5) 11/02/22 21:50 Neut # (Auto) 6.0 x10E3/uL (1.8-7.7) 11/02/22 21:50 Lymph # (Auto) 3.1 x10E3/uL (1.00-4.8) 11/02/22 21:50 [place] # (Auto) 0.7 x10E3/uL (0.0-0.8) 11/02/22 21:50 [...] cellulitis and purulent drainage. Transfer refused from [facility] where the procedure was performed. Will initiate patient on IV Teflaro, consult ID for their assessment. Hibiclens washes 3 times daily as recommended by our orthopedics and surgeon on-call from [facility]. Given the severity of the hand cellulitis, and possible deeper infection, will place patient as inpatient status as she will likely require more than 2 midnights for improvement and stabilization of hand infection and to determine a plan for antibiotic therapy and surgery follow-up on discharge. Documented By: Rhiannon Mendez APRN 11/03/22 0117 Signed By: <Electronically signed by TODD Mendez> 11/03/22 031 <Electronically signed by Sam Hodges MD> 11/03/22 0334 [facility] Work Phone: History and physical note Author Annmarie Palmer [facility] Note Date/Time October 01, 2024 11:02am [facility] [address] [place] [address] Gastroenterology H&P Signed Patient: Lisa Mendez MR#: [id number] : 1975 Acct:[id number] Age/Sex: 49 / F Adm Date: 5 Loc: Room: Type: [facility] Attending Dr: Annmarie Palmer DO Copies to: Brigida Corea APRN, VIPUL Palmer DO~ Date of Service: 10/01/2024 HISTORY & PHYSICAL: Patient's history with special attention to the cardiovascular, pulmonary systems and the current problem was reviewed with the patient immediately prior to the procedure. Present medications and doses reviewed in the EMR. Allergies and pertinent laboratory tests were also reviewedat this time in the EMR. The physical examination, as below, was then performed. Indication, assessment and HPI: 49-year-old female who presents for EGD and colonoscopy for nausea, vomiting, epigastric pain, irregular bowel movements-primarily constipation. No prior EGD or colonoscopy. Family history of GI malignancy? No PHYSICAL EXAMINATION General appearance: cooperative, NAD Skin: No jaundice, no rash or lesions Head: NCAT Eyes: Anicteric Neck: Supple Lungs: Normal respiratory effort, no use of accessory muscles Abdomen: Soft, nondistended Neuro: No focal deficits, Ox3. REVIEW OF SYSTEMS Constitutional: Denies malaise, fevers Cardiovascular: Denies chest pain, palpitations Respiratory: Denies shortness of breath, wheezing Gastrointestinal: As per HPI Genitourinary: Denies dysuria, polyuria Musculoskeletal: Denies joint swelling, joint stiffness Neurological: Denies confusion, numbness, tingling Endocrine: Denies fatigue Written informed consent obtained from the patient. Risks (including but not limited to perforation, infection, bloating, bleeding, need for emergent surgeryand loss of life), benefits and alternatives explained and questions answered. The patient verbalized understanding. Based on history patient is an appropriate candidate for the procedure. Annmarie Palmer DO Present medication and doses reviewed in the EMR Documented By: Annmarie Palmer DO 10/01/24 1101 Signed By: <Electronically signed by Annmarie Palmer DO> 10/01/24 1102 [facility] Work Phone: History general Narrative - Reported* [...] 03/24 21 Hospitalization History see surgical hx [employer] Other Hisycpw general Narrative - Reported* Type Description Date [...] surgical hx Hospitalization History SOB cough [place] [facility] [place] [facility] Other Hiskzep general Narrative - Reported* Type Description Date [...] surgical hx Hospitalization History SOB cough pneumonia [facility] [place] [facility] Other Hisgcpq general Narrative - Reported* Type Description Date [...] surgical hx Hospitalization History SOB cough pneumonia [facility] [place] [employer] Other Hisbwpp general Narrative - Reported* Type Description Date [...] surgical hx Hospitalization History SOB cough pneumonia [facility] [place]2021 Hospitalization History [facility] bronchitis, RSV 05/13/22 [employer] Other History of Present illness Narrative* Delroy Merino, NELIA - 08/03/2024 10:20 AM EST Patient: Lisa Mendez : 1975 PCP: Noms Provider MD Viviana SUBJECTIVE This is a 49 y.o. female that presents today for a follow up of right 3rd toe fx of 4 months duration. Patient states she stubbed her toe and has had continued pain to the area has tried anti-inflammatories with minimal improvement and still continue to have pain to her right 3rd toe with some swelling and does take anti-inflammatories with minimal improvement and rates it up to a 0-1/10. Pt has been in CAM walker. Patient states improvement Allergies: Allergies Allergen Reactions Penicillins Hives, Itching, Rash and Unknown Other reaction(s): itching Ropinirole Hives Topiramate Hives, Rash and Unknown Aloe Vera Unknown Baclofen Unknown and Swelling Other reaction(s): Other: See Comments Cephalexin GI intolerance, Nausea Only and Unknown Other reaction(s): GI Upset, Vomiting Ciprofloxacin Hcl Unknown Ciprofloxacin-Ciproflox Hcl Er Diclofenac Unknown and Other Stomach pain and cramping Menthol Unknown Other reaction(s): Other: See Comments Metformin Hives Morphine Nausea And Vomiting and GI intolerance Naproxen Unknown Sumatriptan Unknown Tramadol Unknown Vitamin E Unknown Azithromycin Itching, Rash and Unknown Cyclobenzaprine Hives, Unknown and Rash Other reaction(s): rash, itching, Unknown, Unknown Gabapentin Hives, Rash and Unknown Other reaction(s): Other: See Comments, Unknown Ibuprofen Rash Nsaids Hives, Unknown and Rash Tizanidine Rash Zonisamide Rash Past Medical History: Past Medical History: Diagnosis Date Allergies Anxiety Arthritis Asthma ([facility]) Back pain 06/17/2017 Backache 04/05/2015 Bipolar 1 disorder ([facility]) Bronchitis Chicken pox Chronic back pain DDD (degenerative disc disease), lumbar 06/17/2017 Depression ([facility]) Diabetes mellitus ([facility]) Disturbance of skin sensation 04/05/2015 Insomnia 01/06/2018 Kidney stone Lumbar radiculopathy 01/06/2018 Lumbar spondylosis 01/06/2018 Measles Migraine ([facility]) Muscle weakness 04/05/2015 Overactive bladder Pain in limb 03/04/2015 Pneumonia Radicular pain 03/21/2018 Radiculopathy 03/04/2015 Restless legs syndrome Scarlet fever Tonsillitis Medications: Current Outpatient Medications: Alcohol Swabs (B-D SINGLE USE SWABS REGULAR) pads, USE SWAB EXTERNALLY DIRECTED 4 TIMES DAILY, Disp: , Rfl: Caplyta 10.5 MG capsule, Take 1 capsule by mouth Daily, Disp: , Rfl: carBAMazepine (TEGretol) 200 MG tablet, Take 200 mg by mouth in the morning and 200 mg before bedtime., Disp: , Rfl: carbidopa-levodopa (Sinemet) 25-100 MG tablet, Take 1 tablet by mouth in the morning and 1 tablet before bedtime., Disp: , Rfl: cholecalciferol 1.25 MG (76883 UT) capsule, Take 50,000 Units by mouth 1 (one) time per week, Disp:, Rfl: clobetasol (Temovate) 0.05 % external solution, Apply to scalp every day prn flares, Disp: 50 mL, Rfl: 11 Clobetasol Propionate 0.05 % shampoo, LATHER ON WET HAIR TOPICALLY, LEAVE ON FOR 5 MINUTES THEN RINSE. USE 2 TO 3 TIMES A WEEK, Disp: 118 mL, Rfl: 11 Continuous Blood Gluc Program Director/Music Director (Dexcom G7 Program Director/Music Director) device, USE DIRECTED, Disp: , Rfl: Continuous Blood Gluc Sensor (Dexcom G7 Sensor) mis, USE DIRECTED, Disp: , Rfl: cyanocobalamin (Vitamin B-12) 1000 MCG tablet, Take 1,000 mcg by mouth in the morning., Disp: , Rfl: DULoxetine (Cymbalta) [address] capsule, Take 1 capsule (30 mg) by mouth Daily for 14 days Do not crush or chew., Disp: 14 capsule, Rfl: 0 DULoxetine (Cymbalta) [address] capsule, Take 1 capsule (60 mg) by mouth Daily Do not start before May 24, 2024., Disp: 30 capsule, Rfl: 2 glipiZIDE (Glucotrol) 5 MG tablet, 1 (one) time each day at the same time., Disp: , Rfl: ibuprofen 800 MG tablet, TAKE 1 TABLET BY MOUTH EVERY 8 HOURS IF NEEDED FOR MODERATE PAIN (4-7 PAIN), Disp: , Rfl: nabumetone (Relafen) 500 MG tablet, Take 500 mg by mouth 2 (two) times a day as needed, Disp: , Rfl: Nurtec 75 MG tablet dispersible, TAKE 1 TABLET BY MOUTH AT THE ONSET OF MIGRAINE, Disp: , Rfl: oxyCODONE-acetaminophen (Percocet) 5-325 MG tablet, 1 tablet, Disp: , Rfl: potassium chloride CR (Klor-Con M20) 20 MEQ ER tablet, Take 1 tablet by mouth in the morning., Disp: , Rfl: pramipexole (Mirapex) 0.125 MG tablet, Take 1 tablet (0.125 mg) by mouth in the morning and 1 tablet (0.125 mg) before bedtime. (Patient taking differently: Take 0.125 mg by mouth at bedtime), Disp: 60 tablet, Rfl: 1 pregabalin (Lyrica) 100 MG capsule, Take 100 mg by mouth in the morning and 100 mg before bedtime.,Disp: , Rfl: QUEtiapine (SEROquel) 25 MG tablet, Take 25 mg by mouth at bedtime, Disp: , Rfl: Trulicity 3 MG/0.5ML solution pen-injector, Administer the contents of one prefilled pen subcutaneously once weekly as directed, Disp: , Rfl: Social History: Social History Socioeconomic History Marital status: Spouse name: Not on file Number of children: Not on file Years of education: Not on file Highest education level: Not on file Occupational History Not on file Tobacco Use Smoking status: Former Types: Cigarettes Smokeless tobacco: Never Vaping Use Vaping status: Never Used Substance and Sexual Activity Alcohol use: Yes Comment: caffeine 1-2 cups per day; soda Drug use: Defer Sexual activity: Defer Other Topics Concern Not on file Social History Narrative Exercise: occasional Social Drivers of Health Financial Resource Strain: Not on file Food Insecurity: Food Insecurity Present (03/08/2023) Received from [facility], [facility], [facility] Hunger Screening Within the past 12 months we worried whether our food would run out before we got money to buy more.: Sometimes True Within the past 12 months the food we bought just didn't last and we didn't have money to get more.: Sometimes True Transportation Needs: Not on file Physical Activity: Not on file Stress: Not on file Social Connections: Not on file Intimate Partner Violence: Not At Risk (06/04/2023) Received from [facility], [facility] Humiliation, Afraid, Rape, and Kick questionnaire Fear of Current or Ex-Partner: No Emotionally Abused: No Physically Abused: No Sexually Abused: No Housing Stability: Not on file ROS: Gastrointestinal: denies abdominal pain, ulcers, or changes in appetite or bowel habits Musculoskeletal: Positive generalized arthritis to joints and denies loss of strength. Positive history of back issues as well as total knee replacement Cardiovascular: denies CP, palpitations, irregular rhythms OBJECTIVE LE EXAM: DERM: Positive hair growth to b/l feet with good skin turgor noted. Negative openings in skin. Slight edema to the right 3rd digit VASC: Palpable pedal pulsed b/l with warm to cool tibia to toes b/l NEURO: Gross sensation intact digits 1-10 and b/l feet ORTHO: +5/5 DF/PF/IN/EV right, +5/5 DF/PF/IN/EV left. 20 degrees inversion and 10 degrees eversion STJ b/l. Ankle ROM less than 10 degrees b/l. Negative pain on palpation to right 3rd PIPJ and proximal phalanx X-ray XR foot 3+ views right Imaging Result: Old appearing oblique fracture of the right 3rd proximal phalanx head and neck region with negative diastasis ASSESSMENT 1. Closed nondisplaced fracture of middle phalanx of lesser toe of right foot, initial encounter PLAN Patient to continue with oral anti - inflammatories as needed for pain and recommended OTC medications such as tylenol or Ibuprofen Patient may discontinue walking boot reviewed x-rays today with patient returned to normal shoeGearand contact Podiatry if any further issues Delroy Merino DPM documented in this encounterNOMS HealthcareHistory of Present illness Narrative * Delroy Merino DPM - 12/01/2024 4:20 PM EDT Patient: Lisa Mendez : 1975 PCP: Noms Provider MD Viviana SUBJECTIVE This is a 49 y.o. female that presents today for a follow up of right 3rd toe fx of 8 months duration. Patient states she stubbed her toe and has had continued pain to the area has tried anti-inflammatories with positive improvement and minimal to no pain to her right 3rd toe with some swelling anddoes take anti- inflammatories with positive improvement Patient presents today for follow up of capsulitis and synovitis to the left medial tibiotalar joint capsule Currently they rate their pain on a 1-10 scale a 3 States prior treatments of 2nd steroid injection and nsaids with intermittent relief States pain is aggrevated with WB. Pt also has hx of left PT tendonitis and has been using ankle brace with improvement. Patient has also been using heat molded inserts with improvement Patient has not been wearing the brace for the past month Patient also presents today complaints of pain to the dorsum of right foot for the past few weeks and states pain up to an 8/10 and is unable take oral anti- inflammatories secondary to hand surgery in the near future Allergies: Allergies Allergen Reactions Penicillins Hives, Itching, Rash and Unknown Other reaction(s): itching Ropinirole Hives Topiramate Hives, Rash and Unknown Aloe Vera Unknown Baclofen Unknown and Swelling Other reaction(s): Other: See Comments Cephalexin GI intolerance, Nausea Only and Unknown Other reaction(s): GI Upset, Vomiting Ciprofloxacin Hcl Unknown Ciprofloxacin-Ciproflox Hcl Er Diclofenac Unknown and Other Stomach pain and cramping Duloxetine Fatigue Menthol Unknown Other reaction(s): Other: See Comments Metformin Hives Morphine Nausea And Vomiting and GI intolerance Naproxen Unknown Sumatriptan Unknown Tramadol Unknown Azithromycin Itching, Rash and Unknown Cyclobenzaprine Hives, Unknown and Rash Other reaction(s): rash, itching, Unknown, Unknown Gabapentin Hives, Rash and Unknown Other reaction(s): Other: See Comments, Unknown Ibuprofen Rash Nsaids Hives, Unknown and Rash Tizanidine Rash Zonisamide Rash Past Medical History: Past Medical History: Diagnosis Date Allergies Anxiety Arthritis Asthma Back pain 06/17/2017 Backache 04/05/2015 Bipolar 1 disorder ([facility]) Bronchitis Chicken pox Chronic back pain DDD (degenerative disc disease), lumbar 06/17/2017 Depression ([facility]) Diabetes mellitus ([facility]) Disturbance of skin sensation 04/05/2015 Insomnia 01/06/2018 Kidney stone Lumbar radiculopathy 01/06/2018 Lumbar spondylosis 01/06/2018 Measles Migraine Muscle weakness 04/05/2015 Overactive bladder Pain in limb 03/04/2015 Pneumonia Radicular pain 03/21/2018 Radiculopathy 03/04/2015 Restless legs syndrome Scarlet fever Tonsillitis Medications: Current Outpatient Medications: Alcohol Swabs (B-D SINGLE USE SWABS REGULAR) pads, USE SWAB EXTERNALLY DIRECTED 4 TIMES DAILY, Disp: , Rfl: Caplyta 10.5 MG capsule, Take 1 capsule by mouth Daily, Disp: , Rfl: carBAMazepine (TEGretol) 200 MG tablet, Take 200 mg by mouth in the morning and 200 mg before bedtime., Disp: , Rfl: carbidopa-levodopa (Sinemet) 25-100 MG tablet, Take 1 tablet by mouth in the morning and 1 tablet before bedtime., Disp: , Rfl: cholecalciferol 1.25 MG (39794 UT) capsule, Take 50,000 Units by mouth 1 (one) time per week, Disp:, Rfl: Continuous Blood Gluc Program Director/Music Director (Dexcom G7 Program Director/Music Director) device, USE DIRECTED, Disp: , Rfl: Continuous Blood Gluc Sensor (Dexcom G7 Sensor) misc, USE DIRECTED, Disp: , Rfl: cyanocobalamin (Vitamin B-12) 1000 MCG tablet, Take 1,000 mcg by mouth in the morning., Disp: , Rfl: glipiZIDE (Glucotrol) 5 MG tablet, 1 (one) time each day at the same time., Disp: , Rfl: nabumetone (Relafen) 500 MG tablet, Take 500 mg by mouth 2 (two) times a day as needed (Patient nottaking: Reported on 11/21/2024), Disp: , Rfl: pantoprazole (ProtoNix) 40 MG EC tablet, Take 40 mg by mouth Daily (Patient not taking: Reported on11/21/2024), Disp: , Rfl: potassium chloride CR (Klor-Con M20) 20 MEQ ER tablet, Take 1 tablet by mouth in the morning. (Patient not taking: Reported on 11/21/2024), Disp: , Rfl: pramipexole (Mirapex) 0.125 MG tablet, Take 1 tablet (0.125 mg) by mouth in the morning and 1 tablet (0.125 mg) before bedtime. (Patient not taking: Reported on 11/21/2024), Disp: 60 tablet, Rfl: 1 pregabalin (Lyrica) 100 MG capsule, Take 100 mg by mouth in the morning and 100 mg before bedtime.,Disp: , Rfl: QUEtiapine (SEROquel) 25 MG tablet, Take 25 mg by mouth at bedtime, Disp: , Rfl: Rimegepant Sulfate (Nurtec) 75 MG tablet dispersible, TAKE 1 TABLET BY MOUTH AT THE ONSET OF MIGRAINE Take no more than 1 dose in 48 hrs. (Patient not taking: Reported on 11/21/2024), Disp: 8 tablet, Rfl: 2 Trulicity 3 MG/0.5ML solution pen-injector, Administer the contents of one prefilled pen subcutaneously once weekly as directed, Disp: , Rfl: Social History: Social History Socioeconomic History Marital status: Spouse name: Not on file Number of children: Not on file Years of education: Not on file Highest education level: Not on file Occupational History Not on file Tobacco Use Smoking status: Former Types: Cigarettes Smokeless tobacco: Never Vaping Use Vaping status: Never Used Substance and Sexual Activity Alcohol use: Yes Comment: caffeine 1-2 cups per day; soda Drug use: Defer Sexual activity: Defer Other Topics Concern Not on file Social History Narrative Exercise: occasional Social Drivers of Health Financial Resource Strain: Not on file Food Insecurity: Food Insecurity Present (03/08/2023) Received from [facility] Hunger Screening Within the past 12 months we worried whether our food would run out before we got money to buy more.: Sometimes True Within the past 12 months the food we bought just didn't last and we didn't have money to get more.: Sometimes True Transportation Needs: Not on file Physical Activity: Not on file Stress: Not on file Social Connections: Not on file Intimate Partner Violence: Not At Risk (06/04/2023) Received from [facility] Humiliation, Afraid, Rape, and Kick questionnaire Fear of Current or Ex-Partner: No Emotionally Abused: No Physically Abused: No Sexually Abused: No Housing Stability: Not on file ROS: Gastrointestinal: denies abdominal pain, ulcers, or changes in appetite or bowel habits with OTC nsaids Musculoskeletal: Positive generalized arthritis to joints and denies loss of strength. Positive history of back issues as well as total knee replacement Cardiovascular: denies CP, palpitations, irregular rhythms OBJECTIVE LE EXAM: DERM: Positive hair growth to b/l feet with good skin turgor noted. Negative openings in skin. VASC: Palpable pedal pulsed b/l with warm to cool tibia to toes b/l NEURO: Gross sensation intact digits 1-10 and b/l feet ORTHO: +5/5 DF/PF/IN/EV right, +5/5 DF/PF/IN/EV left. 20 degrees inversion and 10 degrees eversion STJ b/l. Ankle ROM less than 10 degrees b/l. Minimal pain on palpation to right 3rd PIPJ and proximal phalanx diminished pain on palpation left PT tendon near medial malleolar and distally diminished pain on palpation to medial aspect of the left ankle gutter and capsule Diminished pain on palpation to medial and lateral aspect of the right tibiotalar joint Positive pain on palpation to right EDL tendon complex ASSESSMENT 1. Capsulitis of metatarsophalangeal (MTP) joint of right foot 2. Posterior tibial tendinitis of left leg 3. Other specified disorders of synovium, left ankle and foot PLAN Prescription for Medrol pack Continue with inserts/ heat molded Continue with brace to ankle Patient may use walking boot that she has at home to her right foot Recommended to apply ice to affected areas for 20 minutes, twice daily. Ice should not be applied directly to skin. Delroy Merino DPM documented in this encounterSaint [facility]ius HospitalHospital Discharge instructions Additional Instructions Use Zofran as needed for nausea, Bentyl for abdominal cramping and pain, he can also use naproxen or ibuprofen for pain Stay well-hydrated, drink Pedialyte, Gatorade G2 Slowly reintroduce food, using BRAT diet consisting of Bread, Rice, Applesauce, [place]. Do not eat spicy or greasy foods, fast foods. Return to the emergency department for fevers, worsening abdominal pain, continued vomiting, lightheadedness, blood in stoolHol[facility] Work Phone: Hospital Discharge instructions Additional Instructions Today in emergency department no antibiotics are needed for your ear You may be beneficial with Zyrtec or Claritin [id number] daily Tylenol or Motrin if needed for pain Follow-up with your ENT call tomorrow for appointment Return here if any problems persist or worsen including fever, chills, increased pain, shortness of breath chest pain or any other concerns.[facility] Work Phone: Hospital Discharge instructions No data available for this section [facility] Hospital Discharge instructions Additional Instructions You are passing some tiny stones from lithotripsy. These are very small and should pass quickly. Obviously I do want you to follow-up with Dr. Desir. If there are problems I want you to come back here. In terms of the rash on your back, that is either a reaction to what ever was placed on your skin during the procedure, or less likely but still possible a minor burn from the procedure. Keep this covered with some antibiotic ointment and it should heal without problems. [facility] Work Phone: Hospital Discharge instructionsAmbulatory Orders* DME [...] AFSHAN bandage. *Continue mobilization with splint as beforeHolzer [facility] Work Phone: Hospital Discharge instructions Additional Instructions Take Tylenol as needed for mild to moderate pain, take oxycodone as prescribed for severe pain. Take Flomax to help pass the stone. Increase your intake of fluids. Take Phenergan as prescribed for nausea vomiting. Follow-up with Dr. Desir as scheduled for lithotripsy. Return if you have fevers or chills or intractable nausea vomiting. Follow-up at [facility] for ongoing management of your pin site infection as scheduled. Take Bactrim as prescribed.[facility] Work Phone: Hospital Discharge instructions Additional Instructions Follow-up with your primary care doctor Return to ED if develop worsening symptoms or concernsHolzer [facility] [place] Work Phone: Hospital Discharge instructions Additional Instructions Take steroids as directed Apply hydrocortisone cream as directed Avoid any changes in your detergent or soap Use soap without any deodorant Handwashing Cool compresses to the area and avoid scratching Return here if any problems persist or worsen as may you discussedHolzer Medical Center [facility] [place] Work Phone: Hospital Discharge instructions Additional Instructions Take Relafen or Tylenol if needed for pain Hold your Motrin Keflex for muscle spasms You cannot work or drive when taking Zanaflex Lidocaine patches as directed Return here if any problems persist or worsen Is important to follow-up with neurology/pain management Take antibiotic as instructed until goneHolzer Medical Center [facility] Work Phone: Hospital Discharge instructions Additional Instructions You do not have a ureteral stone tonight. You do have a UTI. Please follow up with your doctor.[facility] Work Phone: Hospital Discharge instructions Additional Instructions Your CAT scan did not show an obvious cause for your pain once again tonight. I want you to follow-up with Dr. Corea on Saturday or Saturday. You may need further evaluation or referral for further testing. I am not sure what is causing your pain, but it does not appear to be caused by anything dangerous tonight.[facility] Work Phone: Hospital Discharge instructionsAmbulatory Orders* Referral to Physical Medicine and Rehabilitation Location: None Selected [facility] Work Phone: Hospital Discharge instructions Additional Instructions As we discussed, you are on a number of medications that can cause stomach problems. These include nabumetone and the Ozempic. I am going to put you on medicine to help with this. You do need to follow-up with your doctor, and you may need to be referred to GI if your symptoms continue. I will give you a note for another day off of work. Follow-up with your doctor next week.[facility] Work Phone: Hospital Discharge instructions Additional Instructions Good handwashing A humidifier may be beneficial Tessalon Perles to suppress your cough Zyrtec or Claritin daily The dose of steroids that you received in the emergency department as a one-time dose Flonase daily Salt water gargles to soothe your throat Return here if any problems [facility] Phone: [facility] Discharge instructions Additional Instructions Take steroids as directed Rest Hydrocortisone cream to areas affected of your rash Return here if any problems persist or worsen Continue to use of your [facility]ol[facility] Work Phone: Hospital Discharge instructions Additional Instructions Keep your pain regimen as prescribed by your surgeon Elevate Keep your splint intact until you are seen by surgeon Call tomorrow for appointment Your x-rays are negative Return here if any problems persist or [facility] Work Phone: Progress note No data available for this section [facility] Progress note Author Walter Zhang [facility] November 03, 2022 4:17pm Note Date/Time November 03, 2022 3:23 pm [facility] [address] [place], [place] [id number] Hospitalist Progress Note Signed Patient: Lisa Mendez MR#: [id number] : 1975 Acct:[id number] Age/Sex: 47 / F Adm Date: 3 Loc: Room: [address] [place] [address] Type: ADM IN Attending Dr: Walter Zhang [...] 500 Mg Tablet PO 11/04/23 08:59 DAILY KAROL Budesonide/Formoterol Fumarate 2 puff 11/03/22 09:00 11/03/22 08:36 Budesonide/Formoterol 160-4.5 Mcg 60 Puff/6 Gm Hfa.Aer.Ad INHALATION 11/03/23 08:59 2 puff BID KAROL Administration Carbamazepine 200 mg 11/03/22 09:00 11/03/22 10:40 Carbamazepine 200 Mg Tablet PO 11/03/23 08:59 200 mg BID KAROL Administration Carbidopa/Levodopa 1 tab 11/03/22 02:57 Carbidopa/Levodopa 25-100 Mg 1 Tab Tablet PO 11/03/23 02:56 QHS PRN Restless Leg(S) Celecoxib 200 mg 11/03/22 09:00 11/03/22 10:40 Celecoxib 200 Mg Capsule PO 11/03/23 08:59 200 mg DAILY KAROL Administration Diphenhydramine HCl 50 mg 11/03/22 02:17 11/03/22 02:34 Diphenhydramine 25 Mg Capsule PO 11/03/23 02:16 50 mg Q8H PRN Administration Itching Duloxetine HCl 90 mg 11/03/22 09:00 Duloxetine 30 Mg Capsule. PO 11/03/23 08:59 DAILY KAROL Enoxaparin Sodium 40 mg 11/03/22 10:00 11/03/22 11:24 Enoxaparin 40 Mg/0.4 Ml Syringe SUBCUT 11/03/23 09:59 Not Given DAILY@10 KAROL Furosemide 40 mg 11/03/22 08:00 11/03/22 15:08 Furosemide 40 Mg Tablet PO 11/03/23 07:59 40 mg BID@0800,1600 KAROL Administration Guaifenesin 600 mg 11/03/22 01:12 Guaifenesin 600 Mg Tab.Er.12h PO 11/03/23 01:11 BID PRN Cough Liraglutide 1.8 mg 11/03/22 09:00 11/03/22 10:41 Liraglutide 18 Mg/3 Ml Pen.Injctr SUBCUT 11/03/23 08:59 1.8 mg QAM KAROL Administration Loratadine 10 mg 11/03/22 02:57 Loratadine 10 Mg Tablet PO 11/03/23 02:56 DAILY PRN Allergic Reaction Non-Formulary Medication 75 mg 11/03/22 02:57 Rimegepant [Nurtec Odt] PO DIRECTED PRN Migraine Headache Potassium Chloride 20 meq 11/03/22 09:00 11/03/22 10:40 Potassium Chloride Er 10 Meq Capsule.Er PO 11/03/23 08:59 20 meq DAILY KAROL Administration Prochlorperazine Maleate 10 mg 11/03/22 01:07 Prochlorperazine Maleate 5 Mg Tablet PO 11/03/23 01:06 Q8HR PRN Nausea And Vomiting Sodium Chloride 0 ml 11/02/22 21:39 Sodium Chloride 0.9 % 10 Ml Syringe IV-PUSH 11/02/23 21:38 PRN PRN Flush Sodium Chloride 0 ml 11/03/22 06:00 11/03/22 15:08 Sodium Chloride 0.9 % 10 Ml Syringe IV-PUSH 11/03/23 05:59 10 ml QSHIFT KAROL Administration Trimethoprim/Sulfamethoxazole 1 tab 11/03/22 11:30 11/03/22 15:07 Sulfamethoxazole/Tmp 800-160mg 1 Tab Tablet PO 11/10/22 11:29 1 tab BID KAROL Administration A&P - Hospitalist Assessment/Plan (1) Cellulitis, [...] antibiotics and follow-up with herhand surgeon in [place] Patient is comfortable going home Reiterated the importance of keeping the wound clean. Will order Benadryl for itching Patient will be discharged home on oral antibiotics Patient cannot go to work until cleared by her hand surgeon She is being discharged today. Documented By: Walter Zhang MD 11/03/22 1523 Signed By: <Electronically signed by Walter Zhang MD> 11/03/22 4433 [facility] Work Phone: Progress note Author Jerry Sarmiento [facility] Note Date/Time April 02, 2025 1: 14pm [facility] [address] [place] [address] Hospitalist Progress Note Signed Patient: Lisa Mendez MR#: [id number] : 1975 Acct:[id number] Age/Sex: 49 / F Adm Date: 5 Loc: 3T Room: [address] [place] [address] Type: ADM INOo Attending Dr: Jerry Sarmiento DO Copies to: ~ Date of Service: 04/02/2025 Subjective Subjective Narrative: Patient seen today sitting in chair, she reports feeling much better. She was having a headache, for which she was given Tylenol. She reports that she has been to a neurologist in the past however not for her dizziness but for her lower back pain. Patient denies fevers and chills. Exam Physical Exam Vital Signs: Temp Pulse Resp BP Pulse Ox O2 Del Method 98.2 F 84 20 104/70 97 Room Air 04/02/25 08:00 04/02/25 08:00 04/02/25 08:00 04/02/25 08:00 04/02/25 08:00 04/02/25 08:00 Narrative: VITALS: Reviewed. GEN: Obese, calm, resting PSYCH: AOx3. Normal memory, mood, and affect. HEENT -Head: Normal on visual inspection -Eyes: Extraocular muscles intact -Ears: External ears are normal. Normal TMs, no fluid or effusion. -Nose: Normal nares. -Mouth and throat: Moist mucous membranes NECK: Supple, with no masses. CV: Regular rate rhythm, no murmurs, S1 and S2 normal LUNGS: Clear to auscultation bilaterally SKIN: Warm, well perfused. No skin rashes or abnormal lesions. MSK: No deformities or signs of scoliosis. Normal gait. EXT: No clubbing, cyanosis NEURO: Ambulating with no limitations. Normal muscle strength and tone. No focaldeficits. Objective Lab Results 04/02/25 08:28 04/02/25 08:28 Microbiology Results Microbiology 04/01/25 13:00 Urine - Clean-Voided Midstream Urine Culture - Preliminary Gram Negative Bacilli Meds Allergies and Active Meds Allergies baclofen Allergy (Unknown, Verified 04/01/25 11:09) Unknown Reaction cyclobenzaprine (From Flexeril) Allergy (Unknown, Verified 04/01/25 11:09) Hives gabapentin (From Neurontin) Allergy (Unknown, Verified 04/01/25 11:09) Unknown Reaction naproxen Allergy (Unknown, Verified 04/01/25 11:09) Rash Penicillins Allergy (Unknown, Verified 04/01/25 11:09) Hives tramadol (From Ultram) Allergy (Unknown, Verified 04/01/25 11:09) Unknown Reaction azithromycin Allergy (Verified 04/01/25 11:09) Rash, itching ciprofloxacin Allergy (Verified 04/01/25 11:09) Unknown Reaction oxycodone Allergy (Verified 04/01/25 11:09) Nausea topiramate (From Topamax) Allergy (Verified 04/01/25 11:09) Hives cephalexin Adverse Reaction (Verified 04/01/25 11:09) Nausea morphine Adverse Reaction (Verified 04/01/25 11:09) Unknown Reaction sumatriptan (From Imitrex) Adverse Reaction (Verified 04/01/25 11:09) Gastrointestinal Upset Active Meds: Active Medications Generic Name Dose Route Start Last Admin Trade Name Freq PRN Reason Stop Dose Admin Acetaminophen 650 mg 04/01/25 15:57 04/02/25 10:18 Acetaminophen 325 Mg Tablet PO 04/01/26 15:56 650 mg Q6HR PRN Administration Pain Scale 1 - 3 or fever Carbamazepine 600 mg 04/02/25 10:30 Carbamazepine Xr.12hr 200 Mg Tab.Er.12h PO 04/02/26 10:29 DAILY KAROL Carbidopa/Levodopa 1 tab 04/01/25 22:00 04/01/25 21:45 Carbidopa/Levodopa 25-100 Mg 1 Tab Tablet PO 04/01/26 21:59 1 tab QHS KAROL Administration Enoxaparin Sodium 40 mg 04/02/25 10:00 04/02/25 09:04 Enoxaparin 40 Mg/0.4 Ml Syringe SUBCUT 04/02/26 09:59 Not Given DAILY@10 KAROL Glipizide 5 mg 04/02/25 07:30 04/02/25 08:40 Glipizide 5 Mg Tablet PO 04/02/26 07:29 5 mg DAILY.AC.BKFAST KAROL Administration Meclizine HCl 25 mg 04/01/25 15:57 Meclizine 25 Mg Tablet PO 04/01/26 15:56 Q8H PRN Vertigo Melatonin 5 mg 04/01/25 15:57 04/01/25 23:54 Melatonin 5 Mg Tablet PO 04/01/26 15:56 5 mg QHS PRN Administration Insomnia Lumateperone [ 21 mg 04/02/25 09:00 04/02/25 10:11 Caplyta] 21 Mg PO 04/02/26 08:59 Not Given Capsule DAILY KAROL Rimegepant [Nurtec 75 mg 04/01/25 19:02 Odt] 75 Mg Tablet, PO Disintegrating DAILY PRN Migraine Ondansetron HCl 4 mg 04/01/25 15:57 Ondansetron 4 Mg/2 Ml Vial IV-PUSH 04/01/26 15:56 Q8H PRN Nausea And Vomiting Pramipexole Dihydrochloride 0.5 mg 04/01/25 22:00 04/01/25 21:46 Pramipexole 0.5 Mg Tablet PO 04/01/26 21:59 0.5 mg QHS KAROL Administration Pregabalin 100 mg 04/01/25 21:00 04/02/25 08:40 Pregabalin 100 Mg Capsule PO 09/28/25 20:59 100 mg BID KAROL Administration Quetiapine Fumarate 50 mg 04/01/25 22:00 04/01/25 21:46 Quetiapine Fumarate 50 Mg Tablet PO 04/01/26 21:59 50 mg QHS KAROL Administration Sodium Chloride 0 ml 04/01/25 11:08 04/01/25 14:13 Sodium Chloride 0.9 % 10 Ml Syringe IV-PUSH 04/01/26 11:07 10 ml PRN PRN Administration Flush Spironolactone 50 mg 04/02/25 09:00 04/02/25 08:40 Spironolactone 50 Mg Tablet PO 04/02/26 08:59 50 mg DAILY KAROL Administration A&P - Hospitalist Assessment/Plan (1) Dizziness: Plan: ? CTA head and neck and CT head without contrast unremarkable ? BPPV vs. posterior/vestibular stroke ? Chest x-ray unremarkable ? MRI of head shows no acute processes ? PT recommendation for outpatient follow-up ? OT recommendation for outpatient follow-up (2) Asymptomatic bacteriuria: Plan: ? Patient is afebrile without leukocytosis ? Urine positive for leukocyte esterase and white blood cells ? Urine culture grew gram-negative bacilli ? Patient received 1 dose of ceftriaxone IV in the ED (3) RLS (restless legs syndrome): Plan: ? Patient on Sinemet at home ? Received 1 dose of Sinemet Plan ? DVT prophylaxis Lovenox ? Regular diet ? Full code Summary 04/01/2025?Lisa Mendez is a 49-year-old female presenting for evaluation of dizziness. This has been an ongoing problem for her and she has had extensive workup from outside physicians. There are concerns for vestibular stroke vs BPPV. There are plans for an MRI tomorrow. During the course of her ED visit she was found to have pyuria, she has been given 1 dose of ceftriaxone IV, and aurine culture has been obtained. Patient is currently asymptomatic. 04/02/2025?patient reports feeling much better this morning. She did have gram-negative bacilli growing in her urine, she had an E. coli positive urine cultureon 19 February. She did receive 1 dose of IV ceftriaxone in the emergency room, however asymptomatic bacteriuria is not an indication for treatment. MRI of thebrain was unremarkable, therefore there is no concern for an acute process requiring intervention. PT/OT recommendations for outpatient follow-up, and it is recommended that the patient follow-up with her neurologist outpatient as well. Plan for discharge today. I personally saw this patient on the day of the encounter, reviewed the history,performed the shi elements of the exam, formulated the plan of care and confirmed the Resident's assessment and plan. Seen in conjunction with resident Dr. Valdes, patient had an MRI yesterday evening which showed no evidence of posterior stroke. This morning on exam she is sleeping, she wakes up very easily, her restless legs have improved greatly from yesterday. She gets her meds last night. They discussed with her vestibular therapy options, she is agreeable for this. She is evaluated by PT OT and will have a referral for thisupon discharge. Discharge in the hospital and afternoon of April 02 with a prescription for meclizine and vestibular therapy. - Jerry Sarmiento DO Documented By: Jerry Sarmiento DO 04/02/25 1117 Signed By: <Electronically signed by Jerry Sarmiento DO> 04/02/25 1314 <Electronically signed by MD CLARI Valdes> 04/02/25 1130 [facility] Work Phone: Reason for referral (narrative)* Diagnostic Procedure Only (Routine) - Closed Specialty Diagnoses / Procedures Referred By Contac t Referred To Contact XR IMAGING Diagnoses Spinal stenosis, lumbar region with neurogenic claudication Lumbar foraminal stenosis Facet degeneration of lumbar region Restless legs syndrome Disturbance of skin sensation Procedures XR LUMBAR MOTION 4V AP/LAT/ FLEX/EXT RADEX SPINE LUMBOSACRAL MINIMUM 4 VIEWS Melony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 Dietary surveillance and counseling February 16, 2025 8:23am Exercise counseling February 16, 2025 8:23 am Gastroparesis February 16, 2025 8:23 am History of hysterectomy February 16, 2025 8:23am Hx of cholecystectomy February 16, 2025 8: 23am Kidney stones February 16, 2025 8:23 am Mixed hyperlipidemia February 16, 2025 8:2 3am Obesity, Class III, BMI 40-49.9 (morbid obesity) February 16, 2025 8:23am T2DM (type 2 diabetes mellitus) February 8:23am Episodic lightheadedness March 01, 2025 3:28pm Impaired exercise tolerance March 01 025 3:28pm Lymphedema associated with obesity March 01, 2025 3:28pm Obesity, Class III, BMI 40-49.9 (morbid obesity) March 01, 2025 3:28pm T2DM (type 2 diabetes mellitus) February 3:28pm Dizziness April 01, 2025 3: 57pm UTI (urinary tract infection) March 3:57pm Reason for Visit Admit Date Abnormal weight gain February 16, 2025 8:2 3am Bipolar 1 disorder February 16, 2025 8:23 am BMI 40.0-44.9, adult February 16, 2025 8:2 3am Dietary surveillance and counseling February 16, 2025 8:23am Exercise counseling February 16, 2025 8:23 am Gastroparesis February 16, 2025 8:23 am History of hysterectomy February 16, 2025 8:23am Hx of cholecystectomy February 16, 2025 8: 23am Kidney stones February 16, 2025 8:23 am Mixed hyperlipidemia February 16, 2025 8:2 3am Obesity, Class III, BMI 40-49.9 (morbid obesity) February 16, 2025 8:23am T2DM (type 2 diabetes mellitus) February 8:23am Episodic lightheadedness March 01, 2025 3:28pm Impaired exercise tolerance March 01, 025 3:28pm Lymphedema associated with obesity March 01, 2025 3:28pm Obesity, Class III, BMI 40-49.9 (morbid obesity) March 01, 2025 3:28pm T2DM (type 2 diabetes mellitus) February 3:28pm Asymptomatic bacteriuria April 01 3:57pm Dizziness April 01, 2025 3: 57pm Pyuria April 01, 2025 3: 57pm RLS (restless legs syndrome) March 3:57pm UTI (urinary tract infection) March 3:57pm Family History Relationship Condition Age at Onset Recorded Date/T [...] Date/T chely father Diabetes mellitus Unknown mother Malignant neoplasm of kidney Unknown Hypertension Unknown son Attention deficit hy peractivity disorder (ADHD) Unknown grandparent Obesity Unknown maternal grandfather Myocardial infarction Unknown maternal grandmother Malignant neoplasm Unknown Advance Directives Advance Directive Response Recorded Date/ Time Advance Directives No May 15, 2017 9:16pm Advance Directive Response Recorded Date/ Time Advance Directives No May 15, 2017 8:16pm Advance Directive Response Recorded Date/ Time Advance Directives No March 23, 2024 10:57am Advance Directive Response Recorded Date/ Time Advance Directives No March 23, 2024 9:57am Summary Purpose Medications Administered Section Active Administered Medications - up to 3 most recent administrations Medication Order MAR Action Action Date Dose Rate Site fluorescein-benoxinate 0.25-0.4 % 1 Drop (FLURESS) 1 Drop, BOTH EYES, DIRECTED, Starting on [place] 12/13/22 at 1430, Until Sat12/14/22 at 0229, Administer for applanation tonometry, [facility] MED ORDERS Given 12/13/2022 2:30 PM EDT 1 Drop tropicamide 1 % 1 Drop (MYDRIACYL) 1 Drop, BOTH EYES, DIRECTED, Starting on [place] 12/13/22 at 1430, Until Sat12/14/22 at 0229, Administer [...] or prosecute any alcohol or drug abuse patient.[facility]In the event this information is protected by the Federal Confidentiality of Alcohol and Drug Abuse Patient Records regulations: The Federal rules restrict any use of the information to criminally investigate or prosecute any alcohol or drug abuse patient.[facility] CenterIn the event this information is protected by the Federal Confidentiality of Alcohol and Drug Abuse Patient Records regulations: The Federal rules restrict any use of the information to criminally investigate or prosecute any alcohol or drug abuse patient.[facility]In the event this information is protected by the Federal Confidentiality of Alcohol and Drug Abuse Patient Records regulations: The Federal rules restrict any use of the information to criminally investigate or prosecute any alcohol or drug abuse patient.[facility] CenterIn the event this information is protected by the Federal Confidentiality of Alcohol and Drug Abuse Patient Records regulations: The Federal rules restrict any use of the information to criminally investigate or prosecute any alcohol or drug abuse patient.[facility] CenterIn the event this information is protected by the Federal Confidentiality of Alcohol and Drug Abuse Patient Records regulations: The Federal rules restrict any use of the information to criminally investigate or prosecute any alcohol or drug abuse patient.[facility] CenterIn the event this information is protected by the Federal Confidentiality of Alcohol and Drug Abuse Patient Records regulations: The Federal rules restrict any use of the information to criminally investigate or prosecute any alcohol or drug abuse patient.[facility] CenterIn the event this information is protected by the Federal Confidentiality of Alcohol and Drug Abuse Patient Records regulations: The Federal rules restrict any use of the information to criminally investigate or prosecute any alcohol or drug abuse patient.[facility] CenterIn the event this information is protected by the Federal Confidentiality of Alcohol and Drug Abuse Patient Records regulations: The Federal rules restrict any use of the information to criminally investigate or prosecute any alcohol or drug abuse patient.[facility] CenterIn the event this information is protected by the Federal Confidentiality of Alcohol and Drug Abuse Patient Records regulations: The Federal rules restrict any use of the information to criminally investigate or prosecute any alcohol or drug abuse patient.[facility] CenterIn the event this information is protected by the Federal Confidentiality of Alcohol and Drug Abuse Patient Records regulations: The Federal rules restrict any use of the information to criminally investigate or prosecute any alcohol or drug abuse patient.[facility] CenterIn the event this information is protected by the Federal Confidentiality of Alcohol and Drug Abuse Patient Records regulations: The Federal rules restrict any use of the information to criminally investigate or prosecute any alcohol or drug abuse patient.[facility] CenterIn the event this information is protected by the Federal Confidentiality of Alcohol and Drug Abuse Patient Records regulations: The Federal rules restrict any use of the information to criminally investigate or prosecute any alcohol or drug abuse patient.[facility] CenterIn the event this information is protected by the Federal Confidentiality of Alcohol and Drug Abuse Patient Records regulations: The Federal rules restrict any use of the information to criminally investigate or prosecute any alcohol or drug abuse patient.[facility] CenterIn the event this information is protected by the Federal Confidentiality of Alcohol and Drug Abuse Patient Records regulations: The Federal rules restrict any use of the information to criminally investigate or prosecute any alcohol or drug abuse patient.[facility] CenterIn the event this information is protected by the Federal Confidentiality of Alcohol and Drug Abuse Patient Records regulations: The Federal rules restrict any use of the information to criminally investigate or prosecute any alcohol or drug abuse patient.[facility] CenterIn the event this information is protected by the Federal Confidentiality of Alcohol and Drug Abuse Patient Records regulations: The Federal rules restrict any use of the information to criminally investigate or prosecute any alcohol or drug abuse patient.[facility] CenterIn the event this information is protected by the Federal Confidentiality of Alcohol and Drug Abuse Patient Records regulations: The Federal rules restrict any use of the information to criminally investigate or prosecute any alcohol or drug abuse patient.[facility] CenterIn the event this information is protected by the Federal Confidentiality of Alcohol and Drug Abuse Patient Records regulations: The Federal rules restrict any use of the information to criminally investigate or prosecute any alcohol or drug abuse patient.[facility] CenterIn the event this information is protected by the Federal Confidentiality of Alcohol and Drug Abuse Patient Records regulations: The Federal rules restrict any use of the information to criminally investigate or prosecute any alcohol or drug abuse patient.[facility] CenterIn the event this information is protected by the Federal Confidentiality of Alcohol and Drug Abuse Patient Records regulations: The Federal rules restrict any use of the information to criminally investigate or prosecute any alcohol or drug abuse patient.[facility] CenterIn the event this information is protected by the Federal Confidentiality of Alcohol and Drug Abuse Patient Records regulations: The Federal rules restrict any use of the information to criminally investigate or prosecute any alcohol or drug abuse patient.[facility] CenterIn the event this information is protected by the Federal Confidentiality of Alcohol and Drug Abuse Patient Records regulations: The Federal rules restrict any use of the information to criminally investigate or prosecute any alcohol or drug abuse patient.[facility] CenterIn the event this information is protected by the Federal Confidentiality of Alcohol and Drug Abuse Patient Records regulations: The Federal rules restrict any use of the information to criminally investigate or prosecute any alcohol or drug abuse patient.[facility] CenterIn the event this information is protected by the Federal Confidentiality of Alcohol and Drug Abuse Patient Records regulations: The Federal rules restrict any use of the information to criminally investigate or prosecute any alcohol or drug abuse patient.[facility] CenterIn the event this information is protected by the Federal Confidentiality of Alcohol and Drug Abuse Patient Records regulations: The Federal rules restrict any use of the information to criminally investigate or prosecute any alcohol or drug abuse patient.[facility] CenterIn the event this information is protected by the Federal Confidentiality of Alcohol and Drug Abuse Patient Records regulations: The Federal rules restrict any use of the information to criminally investigate or prosecute any alcohol or drug abuse patient.[facility] CenterIn the event this information is protected by the Federal Confidentiality of Alcohol and Drug Abuse Patient Records regulations: The Federal rules restrict any use of the information to criminally investigate or prosecute any alcohol or drug abuse patient.[facility] CenterIn the event this information is protected by the Federal Confidentiality of Alcohol and Drug Abuse Patient Records regulations: The Federal rules restrict any use of the information to criminally investigate or prosecute any alcohol or drug abuse patient.[facility] CenterIn the event this information is protected by the Federal Confidentiality of Alcohol and Drug Abuse Patient Records regulations: The Federal rules restrict any use of the information to criminally investigate or prosecute any alcohol or drug abuse patient.[facility] CenterIn the event this information is protected by the Federal Confidentiality of Alcohol and Drug Abuse Patient Records regulations: The Federal rules restrict any use of the information to criminally investigate or prosecute any alcohol or drug abuse patient.[facility] CenterIn the event this information is protected by the Federal Confidentiality of Alcohol and Drug Abuse Patient Records regulations: The Federal rules restrict any use of the information to criminally investigate or prosecute any alcohol or drug abuse patient.[facility] CenterIn the event this information is protected by the Federal Confidentiality of Alcohol and Drug Abuse Patient Records regulations: The Federal rules restrict any use of the information to criminally investigate or prosecute any alcohol or drug abuse patient.[facility] CenterIn the event this information is protected by the Federal Confidentiality of Alcohol and Drug Abuse Patient Records regulations: The Federal rules restrict any use of the information to criminally investigate or prosecute any alcohol or drug abuse patient.[facility] CenterIn the event this information is protected by the Federal Confidentiality of Alcohol and Drug Abuse Patient Records regulations: The Federal rules restrict any use of the information to criminally investigate or prosecute any alcohol or drug abuse patient.[facility] CenterIn the event this information is protected by the Federal Confidentiality of Alcohol and Drug Abuse Patient Records regulations: The Federal rules restrict any use of the information to criminally investigate or prosecute any alcohol or drug abuse patient.[facility] CenterIn the event this information is protected by the Federal Confidentiality of Alcohol and Drug Abuse Patient Records regulations: The Federal rules restrict any use of the information to criminally investigate or prosecute any alcohol or drug abuse patient.[facility] CenterIn the event this information is protected by the Federal Confidentiality of Alcohol and Drug Abuse Patient Records regulations: The Federal rules restrict any use of the information to criminally investigate or prosecute any alcohol or drug abuse patient.[facility] CenterIn the event this information is protected by the Federal Confidentiality of Alcohol and Drug Abuse Patient Records regulations: The Federal rules restrict any use of the information to criminally investigate or prosecute any alcohol or drug abuse patient.[facility] CenterIn the event this information is protected by the Federal Confidentiality of Alcohol and Drug Abuse Patient Records regulations: The Federal rules restrict any use of the information to criminally investigate or prosecute any alcohol or drug abuse patient.[facility] CenterIn the event this information is protected by the Federal Confidentiality of Alcohol and Drug Abuse Patient Records regulations: The Federal rules restrict any use of the information to criminally investigate or prosecute any alcohol or drug abuse patient.[facility] CenterIn the event this information is protected by the Federal Confidentiality of Alcohol and Drug Abuse Patient Records regulations: The Federal rules restrict any use of the information to criminally investigate or prosecute any alcohol or drug abuse patient.[facility] CenterIn the event this information is protected by the Federal Confidentiality of Alcohol and Drug Abuse Patient Records regulations: The Federal rules restrict any use of the information to criminally investigate or prosecute any alcohol or drug abuse patient.[facility] CenterIn the event this information is protected by the Federal Confidentiality of Alcohol and Drug Abuse Patient Records regulations: The Federal rules restrict any use of the information to criminally investigate or prosecute any alcohol or drug abuse patient.[facility] CenterIn the event this information is protected by the Federal Confidentiality of Alcohol and Drug Abuse Patient Records regulations: The Federal rules restrict any use of the information to criminally investigate or prosecute any alcohol or drug abuse patient.[facility] CenterIn the event this information is protected by the Federal Confidentiality of Alcohol and Drug Abuse Patient Records regulations: The Federal rules restrict any use of the information to criminally investigate or prosecute any alcohol or drug abuse patient.[facility] CenterIn the event this information is protected by the Federal Confidentiality of Alcohol and Drug Abuse Patient Records regulations: The Federal rules restrict any use of the information to criminally investigate or prosecute any alcohol or drug abuse patient.[facility] CenterIn the event this information is protected by the Federal Confidentiality of Alcohol and Drug Abuse Patient Records regulations: The Federal rules restrict any use of the information to criminally investigate or prosecute any alcohol or drug abuse patient.[facility] CenterIn the event this information is protected by the Federal Confidentiality of Alcohol and Drug Abuse Patient Records regulations: The Federal rules restrict any use of the information to criminally investigate or prosecute any alcohol or drug abuse patient.[facility] CenterIn the event this information is protected by the Federal Confidentiality of Alcohol and Drug Abuse Patient Records regulations: The Federal rules restrict any use of the information to criminally investigate or prosecute any alcohol or drug abuse patient.[facility] CenterIn the event this information is protected by the Federal Confidentiality of Alcohol and Drug Abuse Patient Records regulations: The Federal rules restrict any use of the information to criminally investigate or prosecute any alcohol or drug abuse patient.[facility] CenterIn the event this information is protected by the Federal Confidentiality of Alcohol and Drug Abuse Patient Records regulations: The Federal rules restrict any use of the information to criminally investigate or prosecute any alcohol or drug abuse patient.[facility] CenterIn the event this information is protected by the Federal Confidentiality of Alcohol and Drug Abuse Patient Records regulations: The Federal rules restrict any use of the information to criminally investigate or prosecute any alcohol or drug abuse patient.[facility] CenterIn the event this information is protected by the Federal Confidentiality of Alcohol and Drug Abuse Patient Records regulations: The Federal rules restrict any use of the information to criminally investigate or prosecute any alcohol or drug abuse patient.[facility] CenterIn the event this information is protected by the Federal Confidentiality of Alcohol and Drug Abuse Patient Records regulations: The Federal rules restrict any use of the information to criminally investigate or prosecute any alcohol or drug abuse patient.[facility] CenterIn the event this information is protected by the Federal Confidentiality of Alcohol and Drug Abuse Patient Records regulations: The Federal rules restrict any use of the information to criminally investigate or prosecute any alcohol or drug abuse patient.[facility] CenterIn the event this information is protected by the Federal Confidentiality of Alcohol and Drug Abuse Patient Records regulations: The Federal rules restrict any use of the information to criminally investigate or prosecute any alcohol or drug abuse patient.[facility] CenterIn the event this information is protected by the Federal Confidentiality of Alcohol and Drug Abuse Patient Records regulations: The Federal rules restrict any use of the information to criminally investigate or prosecute any alcohol or drug abuse patient.[facility] CenterIn the event this information is protected by the Federal Confidentiality of Alcohol and Drug Abuse Patient Records regulations: The Federal rules restrict any use of the information to criminally investigate or prosecute any alcohol or drug abuse patient.[facility] CenterIn the event this information is protected by the Federal Confidentiality of Alcohol and Drug Abuse Patient Records regulations: The Federal rules restrict any use of the information to criminally investigate or prosecute any alcohol or drug abuse patient.[facility] CenterIn the event this information is protected by the Federal Confidentiality of Alcohol and Drug Abuse Patient Records regulations: The Federal rules restrict any use of the information to criminally investigate or prosecute any alcohol or drug abuse patient.[facility] CenterIn the event this information is protected by the Federal Confidentiality of Alcohol and Drug Abuse Patient Records regulations: The Federal rules restrict any use of the information to criminally investigate or prosecute any alcohol or drug abuse patient.[facility] CenterIn the event this information is protected by the Federal Confidentiality of Alcohol and Drug Abuse Patient Records regulations: The Federal rules restrict any use of the information to criminally investigate or prosecute any alcohol or drug abuse patient.[facility] CenterIn the event this information is protected by the Federal Confidentiality of Alcohol and Drug Abuse Patient Records regulations: The Federal rules restrict any use of the information to criminally investigate or prosecute any alcohol or drug abuse patient.[facility] Reason for Visit (unrecogniz ed section and content) Reason Comments Hearing Loss Reason Comments Established Patient follow up Reason Comments Results Reason Comments Pain In Ear(s) Specialty Diagnoses / Procedures Referred By Jud muniz Referred To Contact Diagnoses Sensorineural hearing loss (SNHL) of both ears Tinnitus of both ears Procedures ADULT HEARING TEST/AUDIOGRAM COMPRE AUDIOMETRY THRESHOLD EVAL SP RECOGNIJ Sharon Lo PA-C [address] [place] [address] [facility] [address] [place] [address] Referral ID Status Reason Start Date Expiration Date V isits Requested Visits Authorized [id number] Closed Auto-Generate d Referral 04/04/2022 07/03/2022 1 1 Reason Comments Follow Up Reason Onset Date Comments Appointment Confirmation 08/27/2022 Reason Comments Blurred Vision Both Eyes Reason Comments Patient Update spoke to patient. ki dney pain vs back spine pain. she will be seen in office. ok to schedule. Reason Comments Radiology CT Specialty Diagnoses / Procedures Referred By Jud muniz Referred To Contact CT IMAGING Diagnoses Sensorineural hearing loss (SNHL) of both ears Dizziness Tinnitus, bilateral Procedures CT TEMP BONES WO IVCON CT ORBIT SELLA/POST FOSSA/EAR W/O CONTRAST MATRL Sharon Lo PA-C [address] [place] [address] [facility] [place] [address] Referral ID Status Reason Start Date Expiration Date V isits Requested Visits Authorized [id number] Closed Auto-Generate d Referral 08/27/2023 09/25/2024 1 1 Reason Comments Ear Pain Specialty Diagnoses / Procedures Referred By Contac t Referred To Contact Ent - Otolaryngology Diagnoses Gastroesophageal reflux disease, unspecified whether esophagitis present Nose trouble Procedures CONSULT TO ENT OFFICE/OUTPATIENT [facility] 60 MINUTES Sharon Lo PA-C [address] [place] [address] Referral ID Status Reason Start Date Expiration Date V isits Requested Visits Authorized [id number] Closed PCP Requested Referral 08/27/2023 08/26/2024 1 [...] COMPLEX 45 MINS Melony Alamo PA-C [address] [address] [facility] [place] [address] [place] [address] Referral ID Status Reason Start Date Expiration Date Visits Requested Visits Authorized [id number] Authorized Auto-Generat ed Referral 08/05/2023 08/04/2024 30 30 Reason Comments Consult JOHN Specialty Diagnoses / Procedures Referred By Contac t Referred To Contact Urology Diagnoses Stress incontinence of urine Procedures CONSULT TO UROLOGY OFFICE/OUTPATIENT [facility] 60 MINUTES Carter Saenz MD [address] [place] [address] Jacqui Castro MD [address] [place] [address] Referral ID Status Reason Start Date Expiration Date V isits Requested Visits Authorized [id number] Closed PCP Requested Referral 10/11/2023 10/10/2024 1 1 Reason Comments Outside Referral Requests Reason Comments Migraine Back Pain Reason Comments Toe Pain Rt 3rd digit Reason Comments Follow-up Rt 3rd fx Reason Comments Appointment Reason Comments Ankle Pain Lt ankle pain Reason Comments Ankle Pain Severe left ankle pa in Reason Comments Back Pain Migraine Reason Comments Follow-up Lt pf checkRt 3rd to e fx Reason Comments New Pain Numbness Reason Comments Ankle Pain Bl ankle check Reason Comments Established Patient Follow Up Reason Comments New Left Knee Pain Reason Comments Patient Question Reason Comments Radiology XR Specialty Diagnoses / Procedures Referred By Contac t Referred To Contact XR IMAGING Diagnoses Acute pain of left knee Procedures XR KNEE GENERAL 4V AP BOTH/PA BOTH/LAT/MERC LEFT RADIOLOGIC EXAM KNEE COMPLETE 4/MORE VIEWS Luis Mathew DO [address] [facility] [place] [address] Phone: tel: fax: [place] [address] Referral ID Status Reason Start Date Expiration Date V isits Requested Visits Authorized [id number] Closed Auto-Generate d Referral 10/13/2024 11/12/2025 1 1 Reason Comments Pre-Op Visit Reason Comments Foot Pain Rt ft pain Reason Comments FMLA Paperwork Reason Comments Anesthesia Consult Reason Comments Follow-up Rt ankle brace- pt s aid she hasn't been wearing brace due to 'not being able to find it' Reason Comments Radio Gen RMP Specialty Diagnoses / Procedures Referred By Contac t Referred To Contact XR IMAGING Diagnoses Post-operative state Procedures XR HAND GENERAL 3V PA/LAT/OBL LEFT RADEX HAND MINIMUM 3 VIEWS Kwame Mcneil MD [address] [place] [address] Phone: tel: fax: [place] [address] Referral ID Status Reason Start Date Expiration Date V isits Requested Visits Authorized [id number] Closed Auto-Generate d Referral 01/14/2025 02/12/2026 1 1 Reason Comments Patient Update Reason Comments Established Patient Post Op Reason Comments Post Op Reason Comments Follow-up Mri results Reason Comments Follow-up Rt edl Reason Comments OT EVAL Specialty Diagnoses / Procedures Referred By Contac t Referred To Contact XR IMAGING Diagnoses Post-operative state Procedures XR DIGIT GENERAL 3V FRONTAL/LAT/OBL LEFT RADEX FINGR MINIMUM 2 VIEWS Aline Hammonds PA-C [address] [place] [address] Phone: tel: fax: [place] [address] Referral ID Status Reason Start Date Expiration Date V isits Requested Visits Authorized [id number] Closed Auto-Generate d Referral 02/09/2025 03/11/2026 1 1 Reason Comments New Reason Comments request for copy of office notes Care Teams (unrecognized sec tion and content) Team Status: Active Member Role Status Dates Brigida Corea APRN [employer] MANAGER-C Primary Care Provider Act sushma Team Status: Active Member Role Status Dates Brigida Corea APRN [employer] MANAGER-C Primary Care Provider Act sushma Start: October 05, 2024 MARCELLO Coombs Attending Provider Active S tart: October 05, 2024 Team Status: Inactive Member Role Status Dates Brigida Corea APRN [employer]AT[employer] MANAGER-C Primary Care Provider, Attending Provider Active Start: October 07, 2024 End: October 07, 2024 Team Status: Inactive Member Role Status Dates Brigida Corea APRN [employer]AT[employer] MANAGER-C Primary Care Provider Act sushma Start: October 09, 2024 End: October 10, 2024 Kenny Carreno Jr, MD Emergency Provider Active Start: October 09, 2024 End: October 10, 2024 Team Status: Inactive Member Role Status Dates Brigida Corea APRN [employer] MANAGER-C Primary Care Provider Act sushma Start: October 23, 2024 End: October 23, 2024 Mary Ellen Magallanes APRN Emergency Provider Active Start: October 23, 2024 End: October 23, 2024 Team Status: Inactive Member Role Status Dates Brigida Corea APRN [employer] MANAGER-C Primary Car e Provider, Attending Provider Active Start: November 05, 2024 End: November 05, 2024 Josr Fuentes MD Referring Provider Active Start: November 05 End: November 05, 2024 Team Status: Active Member Role Status Dates Brigida Corea APRN [employer] MANAGER-C Primary Car e Provider, Other Provider Active Start: November 05, 2024 Josr Fuentes MD Attending Provider, Referring Provider Active Start: November 05, 2024 Team Status: Active Member Role Status Dates Brigida Corea APRN [employer] MANAGER-C Primary Car e Provider, Other Provider Active Start: November 05, 2024 Josr Fuentes MD Referring Provider Activ e Start: November 05, 2024 Tashi Bruce MD Attending Provider Active Start: November 05, 2024 Team Status: Inactive Member Role Status Dates Brigida Corea APRN [employer] MANAGER-C Primary Care Provider Act sushma Start: December 23, 2024 End: December 23, 2024 Josr Fuentes MD Attending Provider Activ e Start: December 23, 2024 End: December 23, 2024 Team Status: Active Member Role Status Dates Services Family [facility] Primary Care Provider Active Team Status: Inactive Member Role Status Dates Services Family Health Primary Care Provider Active Start: August 07, 2023 End: August 08, 2023 Chris Sol DO Emergency Provider Active Sta rt: August 07, 2023 End: August 08, 2023 Team Status: Inactive Member Role Status Dates Services Family [facility] Primary Care Provider Active Start: August 12, 2023 End: August 12, 2023 Brigida Corea APRN [employer] MANAGER-C Attending Provider Active Start: August 12, 2023 [...] Health Primary Care Provider Active Start: October 06, 2023 End: October 06, 2023 Gaudencio Newell APRN Emergency Provider Active Start: October 06, 2023 End: October 06, 2023 Team Status: Inactive Member Role Status Dates Services Family Health Primary Care Provider Active Start: October 27, [...] Inactive Member Role Status Dates Brigida Corea TODD [employer] MANAGER-C Primary Care Provider Act sushma Corea MD Emergency Provider Active Team Status: Inactive Member Role Status Dates Brigida Corea , TODD [employer] MANAGER-C Primary Care Provider Act sushma Reed PA-C Emergency Provider Active Team Status: Inactive Member Role Status Dates No Desir MD Attending Provider Active Services [facility] Primary Care Provider Active Team Status: Inactive Member Role Status Dates Alex Aguirre , DO Attending Provider Active NON STAFF Primary Care Provider Active Team Status: Inactive Member Role Status Dates Jorgito Sanchez , DO Primary Care Provider Active Michael Morley MD Attending Provider Active Edilia Buitrago MD Referring Provider Active Team Status: Inactive Member Role Status Dates Jorgito Sanchez , DO Primary Care Provider Active Boston Reed PA-C Emergency Provider Active Team Status: Inactive Member Role Status Dates Augustine David , DO Attending Provider Active NON STAFF Primary Care Provider Active Team Status: Inactive Member Role Status Dates Jorgito Sanchez , DO Primary Care Provider Active Kenny Villarreal MD Attending Provider Active Team Status: Inactive Member Role Status Dates Jorgito Sanchez , DO Primary Care Provider Active Chris Sol , DO Emergency Provider Active Team Status: Active Member Role Status Dates Jorgito Sanchez , DO Primary Care Provider Active Team Status: Inactive Member Role Status Dates Jorgito Sanchez , DO Primary Care Provider Active Simone Stovall , DO Emergency Provider Active Sam [...] Sanchez , DO Primary Care Provider Active Simone Stovall , DO Emergency Provider Active Team Status: Inactive Member Role Status Dates Jorgito Sanchez , DO Primary Care Provider, Attendi ng Provider Active Team Status: Inactive Member Role Status Dates Jorgito Sanchez , DO Primary Care Provider Active Ara Dempsey APRN Attending Provider Active Team Status: Inactive Member Role Status Dates Jorgito Sanchez , DO Primary Care Provider Active Kenny Carreno Jr, MD Emergency Provider Active Team Status: Inactive Member Role Status Dates Jorgito Sanchez DO Primary Care Provider Active No Desir MD Attending Provider Active Team Status: Inactive Member Role Status Dates Jorgito Sanchez , Primary Care Provider, Other P rovider Active No Desir MD Attending Provider Active [employer] Relationship Specialty Start Date End Date Jorgito Sanchez, DO [address] [place] [address] PCP - General Family Practice 08/23/21 Brandi Pruitt MD [address] [place] [id number] Referring Obstetrics 05/02/21 AngusJorgito jeffries, DO [address] [place] [address] Referring Family Practice 08/23/21 [employer] Relationship Specialty Start Date End Date AngusJorgito jeffries, DO [address] [place] [address] PCP - General Family Practice 08/23/21 Brandi Pruitt MD [address] [place] [phone] Referring Obstetrics 05/02/21 Angusvietyolanda Jorgito E, DO [address] [place] [address] Referring Family Practice 08/23/21 Mixed [employer] Farmer Relationship Specialty Start Date End Date Angusnesha Jorgito E, DO [address] [place] [address] PCP - General Family Practice 08/23/21 Brandi Pruitt MD [address] [place] [address] Referring Obstetrics 05/02/21 Angusvietyolanda Jorgito Bundy, DO [address] [place] [address] Referring Family [facility] 08/23/21 Team Status: Inactive Member Role Status Dates Jorgito Sanchez , Primary Care Provider Active Alex Aguirre DO Attending Provider Active Team Status: Inactive Member Role Status Dates Jorgito Sanchez , Primary Care Provider Active PABLITO SealsC Attending Provider Active [employer] Farmer Relationship Specialty Start Date End Date Angusnesha Jorgito Bundy, DO [address] [place] [address] PCP - General Family Medicine 08/23/21 Brandi Pruitt MD [address] [facility] [address] [place] [phone] Referring Obstetrics 05/02/21 AngusvietPrice guerreroJorgito E, DO [address] [place] [address] Referring Family Medicine 08/23/21 Mixed [employer] Farmer Relationship Specialty Start Date End Date AngusJorgito jeffries, DO [address] [place] [address] PCP - General Family Medicine 08/23/21 Brandi Pruitt MD [address] [facility] [address] [place] [address] Referring Obstetrics 05/02/21 Angusnesha Jorgito E, DO [address] [place] [address] Referring Family Medicine 08/23/21 Team Status: Inactive Member Role Status Dates Jorgito E Schwerer , DO Primary Care Provider Active Kelby Ma , DO Emergency Provider Active Team Status: Inactive Member Role Status Dates Jorgito Sanchez , DO Primary Care Provider Active Michael Morley MD Attending Provider Active [employer] Relationship Specialty Start Date End Date Jorgito Sanchez, DO [address] [place] [address] PCP - General Family Medicine 08/23/21 Brandi Pruitt MD [address] [place] [address] Referring Obstetrics 05/02/21 AngusvietJorgito guerrero, DO [address] [place] [address] Referring Family Medicine 08/23/21 Mixed Crop Farmer Relationship Specialty Start Date End Date Angusvietyolanda Jorgito E, DO [address] [place] [address] PCP - General Family Medicine 08/23/21 Brandi Pruitt MD [address] [place] [address] Referring Obstetrics 05/02/21 Angusnesha Jorgito E, DO [address] [facility] [place] [address] Referring Family Medicine 08/23/21 Team Status: Active Member Role Status Dates Jorgito Sanchez , DO Primary Care Provider Active Simone Stovall , DO Emergency Provider Active Kenny Mendez MD Other Provider Active Mimi Villarreal MD Other Provider Active Zayda Ku MD Other Provider Active Holden Strange , DO Other Provider Active Holland Murphy II, MD Other Provider Active Sam Hodges MD Admit Provider, Attending Eb montelongo Active Team Status: Inactive Member Role Status Dates Jorgito Sanchez , DO Primary Care Provider Active Simone Stovall , DO Emergency Provider Active Sam Hodges MD Admit Provider Active Walter Zhang MD Attending Provider Active Kenny Mendez MD Other Provider Active Mimi Villarreal MD Other Provider Active Zayda Ku MD Other Provider Active Holden Strange , DO Other Provider Active Holland Murphy II, MD Other Provider Active Mimi Rodriguez MD Other Provider Active Mixed Crop Farmer Relationship Specialty Start Date End Date Jorgito Sanchez, DO [address] [facility] [place] [address] PCP - General Family Medicine 08/23/21 Brandi Pruitt MD [address] [facility] [address] [place] [phone] Referring Obstetrics 05/02/21 Jorgito Sanchez, DO [address] [facility] [place] [address] Referring Family Medicine 08/23/21 Team Status: Inactive Member Role Status Dates Augustine David DO Attending Provider Active Team Status: Inactive Member Role Status [facility] Primary Care Provider Active Brigida Corea APRN CYTOGENETICS LABORATORY MANAGER-C Attending Provider Active Team Status: Inactive Member Role Status [facility] Primary Care Provider Active Chris Sol DO Emergency Provider Active Mixed Crop Farmer Relationship Specialty Start Date End Date Brigida Corea CNP [address] [facility] [place] [address] PCP - General Family Medicine 08/27/23 Brandi Pruitt MD [address] [facility] [address] [place] [address] Referring Obstetrics 05/02/21 Jorgito Sanchez DO [address] [place] [address] Referring Family Medicine 08/23/21 Brigida Corea, MEASURER [address] [place] [address] Primary Service Family Medicine 08/01/23 Mixed Crop Farmer Relationship Specialty Start Date End Date Brigida Corea, MEASURER [address] [place] [address] PCP - General Family Medicine 08/27/23 Brandi Pruitt MD [address] [facility] [place] [address] Referring Obstetrics 05/02/21 Jorgito Sanchez DO [facility]20 [facility] [address] Referring Family Medicine 08/23/21 Brigida Corea, GERARDO [address] [place] [address] Primary Service Family Medicine 08/01/23 Mixed Crop Farmer Relationship Specialty Start Date End Date Brigida Corea, MEASURER [address] [place] [address] PCP - General Family Medicine 08/27/23 Brnadi Pruitt MD [address] [facility] [place] [address] Referring Obstetrics 05/02/21 Jorgito Sanchez DO [address] [place] [address] Referring Family Medicine 08/23/21 Brigida Corea, MEASURER [address] [place] [address] Primary Service Family Medicine 08/01/23 Mixed Crop Farmer Relationship Specialty Start Date End Date rBigida Corea, MEASURER [address] [place] [address] PCP - General Family Medicine 08/27/23 Brandi Pruitt MD [address] [facility] [address] [place] [address] Referring Obstetrics 05/02/21 Jorgito Sanchez DO [address] [place] [address] Referring Family Medicine 08/23/21 Brigida Corea, MEASURER [address] [place] [address] Primary Service Family Medicine 08/01/23 Mixed Crop Farmer Relationship Specialty Start Date End Date Brigida Corea, MEASURER [address] [place] [address] PCP - General Family Medicine 08/27/23 Brandi Pruitt MD [address] [facility] [place] [address] Referring Obstetrics 05/02/21 Jorgito Sanchez DO [address] [place] [address] Referring Family Medicine 08/23/21 Brigida Corea, MEASURER [address] [place] [address] Primary Service Family Medicine 08/01/23 Mixed Crop Farmer Relationship Specialty Start Date End Date Brigida Corea, MEASURER [address] [place] [address] PCP - General Family Medicine 08/27/23 Brandi Pruitt MD [address] [facility] [address] [place] [address] Referring Obstetrics 05/02/21 Jorgito Sanchez DO [address] [place] [address] Referring Family Medicine 08/23/21 Brigida Corea, GERARDO [address] [place] [address] Primary Service Family Medicine 08/01/23 Mixed Crop Farmer Relationship Specialty Start Date End Date Brigida Corea, GERARDO [address] [place] [address] PCP - General Family Medicine 08/27/23 Brandi Pruitt MD [address] [facility] [place] [address] Referring Obstetrics 05/02/21 Jorgito Sanchez DO [address] [place] [address] Referring Family Medicine 08/23/21 Brigida Corea CNP [address] [place] [address] Primary Service Family Medicine 08/01/23 Mixed Crop Farmer Relationship Specialty Start Date End Date Brigida Corea CNP [address] [place] [address] PCP - General Family Medicine 08/27/23 Brandi Pruitt MD [address] [facility] [address] [place] [address] Referring Obstetrics 05/02/21 Jorgito Sanchez DO [address] [place] [address] Referring Family Medicine 08/23/21 Brigida Corea CNP [address] [place] [address] Primary Service Family Medicine 08/01/23 Team Status: Inactive Member Role Status Dates Services [facility] Primary Care Provider Active Start: October 28, 2023 End: October 28, 2023 Michael Morley MD Attending Provider Active Start: October 28, 2023 End: October 28, 2023 Team Status: Inactive Member Role Status Dates [facility] Primary Care Provider Active Start: November 14, 2023 End: November 14, 2023 Brigida Corea APRN CYTOGENETICS LABORATORY MANAGER-C Attending Provider Active Start: November 14, 2023 End: November 14, 2023 Mixed Crop Farmer Relationship Specialty Start Date End Date Brigida Corea CNP [address] [place] [address] PCP - General Family Medicine 08/27/23 Brandi Pruitt MD [address] [facility] [address] [place] [address] Referring Obstetrics 05/02/21 Jorgito Sanchez DO [address] [place] [address] Referring Family Medicine 08/23/21 Brigida Corea, GERARDO [address] [place] [address] Primary Service Family Medicine 08/01/23 Team Status: Inactive Member Role Status Dates [facility] Primary Care Provider Active Start: January 03, 2024 End: January 03, 2024 Boston Reed PA-C Emergency Provider Active Start: January 03, 2024 End: January 03, 2024 Team Status: Inactive Member Role Status Dates Augustine David DO Attending Provider Active St art: January 14, 2024 End: January 14, 2024 Team Status: Inactive Member Role Status Dates Brigida Corea APRN CYTOGENETICS LABORATORY MANAGER-C Primary Care Provider Act sushma Start: February 15, 2024 End: February 15, 2024 Boston Reed PA-C Emergency Provider Active Start: February 15, 2024 End: February 15, 2024 Team Status: Inactive Member Role Status Dates Michael Morley MD Attending Provider Active Start: February 18, 2024 End: February 18, 2024 Brigida Corea APRN CYTOGENETICS LABORATORY MANAGER-C Primary Care Provider Act sushma Start: February 18, 2024 End: February 18, 2024 Team Status: Inactive Member Role Status Dates Brigida Corea APRN CYTOGENETICS LABORATORY MANAGER-C Primary Care Provider Act sushma Start: March 11, 2024 End: March 11, 2024 Simone Rivera APRN-PUSHER RUNNER-C Attending Provider Active Start: March 11, 2024 End: March 11, 2024 Team Status: Inactive Member Role Status Dates Brigida Corea APRN CYTOGENETICS LABORATORY MANAGER-C Primary Care Provider Act sushma Start: March 12, 2024 End: March 12, 2024 No Covington DO Emergency Provider Active St art: March 12, 2024 End: March 12, 2024 Team Status: Inactive Member Role Status Dates Brigida Corea APRN CYTOGENETICS LABORATORY MANAGER-C Primary Care Provider Act sushma Start: March 12, 2024 End: March 12, 2024 Gaudencio Newell APRN Emergency Provider Active Start: March 12, 2024 End: March 12, 2024 Team Status: Inactive Member Role Status Dates Brigida Corea APRN CYTOGENETICS LABORATORY MANAGER-C Primary Care Provider Act sushma Start: March 23, 2024 End: March 23, 2024 Chantel Taylor APRN Attending Provider Active Start: March 23, 2024 End: March 23, 2024 Team Status: Inactive Member Role Status Dates Brigida Corea APRN CYTOGENETICS LABORATORY MANAGER-C Primary Care Provider Act sushma Start: March 31, 2024 End: March 31, 2024 Simone Rivera APRN-PUSHER RUNNER-C Attending Provider Active Start: March 31, 2024 End: March 31, 2024 Team Status: Inactive Member Role Status Dates Brigida Corea APRN CYTOGENETICS LABORATORY MANAGER-C Primary Care Provider Act sushma Start: April 09, 2024 End: April 09, 2024 No Covington DO Emergency Provider Active St art: April 09, 2024 End: April 09, 2024 Mixed Crop Farmer Relationship Specialty Start Date End Date Brigida Corea, MEASURER [address] [place] [address] PCP - General Family Medicine 08/27/23 Brandi Pruitt MD [address] [place] [phone] Referring Obstetrics 05/02/21 Jorgito Sanchez DO [address] [place] [address] Referring Family Medicine 08/23/21 Brigida Corea, GERARDO [address] [place] [address] Primary Service Family Medicine 08/01/23 Team Status: Inactive Member Role Status Dates Brigida Corea APRN CYTOGENETICS LABORATORY MANAGER-C Primary Care Provider Act sushma Start: May 04, 2024 End: May 05, 2024 Kenny Carreno Jr, MD Emergency Provider Active Start: May 04, 2024 End: May 05, 2024 Mixed Crop Farmer Relationship Specialty Start Date End Date Unallocated, Robyn Fletcher MD [address] [place] [place] [address] PCP - General Family Medicine 10/10/23 Team Status: Active Member Role Status Dates NON STAFF Primary Care Provider Active Team Status: Inactive Member Role Status Dates Ashley tom , CYTOGENETICS LABORATORY MANAGER-C Attending Provider Active Start: May 08, 2024 End: May 08, 2024 Team Status: Inactive Member Role Status Dates Kenny Carreno Jr, MD Emergency Provider Active Start: May 08, 2024 End: May 09, 2024 Brigida Corea APRN CYTOGENETICS LABORATORY MANAGER-C Primary Care Provider Act sushma Start: May 08, 2024 End: May 09, 2024 Mixed Crop Farmer Relationship Specialty Start Date End Date Unallocated, Robyn Fletcher MD [address] [place] [address] PCP - General Family Medicine 10/10/23 Team Status: Inactive Member Role Status Dates Brigida Corea APRN CYTOGENETICS LABORATORY MANAGER-C Primary Care Provider Act sushma Start: May 25, 2024 End: May 25, 2024 Kevin Pfeiffer DO Attending Provider Active S tart: May 25, 2024 End: May 25, 2024 Team Status: Inactive Member Role Status Dates Brigida Corea APRN CYTOGENETICS LABORATORY MANAGER-C Primary Care Provider Act sushma Start: June 01, 2024 End: June 01, 2024 Alex Aguirre DO Attending Provider Active Start : June 01, 2024 End: June 01, 2024 Mixed Crop Farmer Relationship Specialty Start Date End Date Unallocated, Robyn Fletcher MD [address] [place] [address] PCP - General Family Medicine 10/10/23 Team Status: Inactive Member Role Status Dates Brigida Corea APRN CYTOGENETICS LABORATORY MANAGER-C Primary Care Provider Act sushma Start: June 16, 2024 End: June 16, 2024 Michael Morley MD Attending Provider Active Start: June 16, 2024 End: June 16, 2024 Team Status: Inactive Member Role Status Dates Brigida Corea APRN CYTOGENETICS LABORATORY MANAGER-C Primary Care Provider Act sushma Start: June 16, 2024 End: June 16, 2024 Milan Schroeder MD Attending Provider Active Start: June 16, 2024 End: June 16, 2024 Mixed Crop Farmer Relationship Specialty Start Date End Date Unallocated, Robyn Fletcher MD [address] [place] [address] PCP - General Family Medicine 10/10/23 Mixed Crop Farmer Relationship Specialty Start Date End Date Unallocated, Robyn Fletcher MD [address] [place] [address] PCP - General Family Medicine 10/10/23 Mixed Crop Farmer Relationship Specialty Start Date End Date Unallocated, Robyn Fletcher MD [address] [place] [address] PCP - General Family Medicine 10/10/23 Team Status: Inactive Member Role Status Dates Brigida Corea APRN CYTOGENETICS LABORATORY MANAGER-C Primary Care Provider Act sushma Start: August 06, 2024 End: August 07, 2024 Kenny Carreno Jr, MD Emergency Provider Active Start: August 06, 2024 End: August 07, 2024 Mixed Crop Farmer Relationship Specialty Start Date End Date Brigida Corea CNP [address] [place] [address] PCP - General Family Medicine 08/27/23 Brandi Pruitt MD [address] [place] [address] Referring Obstetrics 05/02/21 Jorgito Sanchez DO [address] [place] [address] Referring Family Medicine 08/23/21 Brigida Corea CNP [address] [place] [address] Primary Service Family Medicine 08/01/23 Mixed Crop Farmer Relationship Specialty Start Date End Date Unallocated, [place] [address] [place] [address] PCP - General Family Medicine 10/10/23 Mixed Crop Farmer Relationship Specialty Start Date End Date Unallocated, Robyn Fletcher MD [address] [place] [address] PCP - General Family Medicine 10/10/23 Mixed Crop Farmer Relationship Specialty Start Date End Date Unallocated, Robyn Fletcher MD [address] [place] [address] PCP - General Family Medicine 10/10/23 Team Status: Inactive Member Role Status Dates Brigida Corea APRN CYTOGENETICS LABORATORY MANAGER-C Primary Care Provider Act sushma Start: August 22, 2024 End: August 22, 2024 Codey Dhillon DO RES Active Star t: August 22, 2024 End: August 22, 2024 No Covington DO Emergency Provider Active St art: August 22, 2024 End: August 22, 2024 Mixed Crop Farmer Relationship Specialty Start Date End Date Brigida Corea CNP [address] [place] [address] PCP - General Family Medicine 08/27/23 Brandi Pruitt MD [address] [place] [address] Referring Obstetrics 05/02/21 Jorgito Sanchez DO [address] [place] [address] Referring Family Medicine 08/23/21 Brigida Corea CNP [address] [place] [address] Primary Service Family Medicine 08/01/23 Mixed Crop Farmer Relationship Specialty Start Date End Date Unallocated, Robyn Fletcher MD [address] [place] [address] PCP - General Family Medicine 10/10/23 Mixed Crop Farmer Relationship Specialty Start Date End Date Unallocated, Robyn Fletcher MD [address] [place] [address] PCP - General Family Medicine 10/10/23 Team Status: Inactive Member Role Status Dates Brigida Corea APRN CYTOGENETICS LABORATORY MANAGER-C Primary Care Provider Act sushma Start: August 29, 2024 End: August 29, 2024 Mary Ellen Magallanes APRN Emergency Provider Active Start: August 29, 2024 End: August 29, 2024 Mixed Crop Farmer Relationship Specialty Start Date End Date Brigida Corea CNP [address] [place] [address] PCP - General Family Medicine 08/27/23 Brandi Pruitt MD [address] [place] [address] Referring Obstetrics 05/02/21 Jorgito Sanchez DO [address] [place] [address] Referring Family Medicine 08/23/21 Brigida Corea CNP [address] [place] [address] Primary Service Family Medicine 08/01/23 Cameron Simone, TODD [address] [address] Referring Family Medicine 08/31/24 Mixed Crop Farmer Relationship Specialty Start Date End Date Brigida Corea CNP [address] [place] [address] PCP - General Family Medicine 08/27/23 Brandi Pruitt MD [address] [facility] [address] [place] [address] Referring Obstetrics 05/02/21 Jorgito Sanchez DO [address] [place] [address] Referring Family Medicine 08/23/21 Brigida Corea CNP [address] [place] [address] Primary Service Family Medicine 08/01/23 Simone Rivera, TODD [address] [address] Referring Family Medicine 08/31/24 Mixed Crop Farmer Relationship Specialty Start Date End Date Unallocated, Noms MD Jaxon [address] [place] [address] PCP - General Family Medicine 10/10/23 Team Status: Inactive Member Role Status Dates Brigida Corea APRN CYTOGENETICS LABORATORY MANAGER-C Primary Care Provider Act sushma Start: September 01, 2024 End: September 01, 2024 Annmarie Palmer DO Attending Provider Active St art: September 01, 2024 End: September 01, 2024 Ashley tom , CYTOGENETICS LABORATORY MANAGER-C Referring Provider Active Start: September 01, 2024 End: September 01, 2024 Mixed Crop Farmer Relationship Specialty Start Date End Date Brigida Corea CNP [address] [place] [address] PCP - General Family Medicine 08/27/23 Brandi Pruitt MD [address] [facility] [place] [address] Referring Obstetrics 05/02/21 Jorgito Sanchez DO [address] [place] [address] Referring Family Medicine 08/23/21 Brigida Corea CNP [address] [place] [address] Primary Service Family Medicine 08/01/23 Simone Rivera APRN [address] [address] Referring Family Medicine 08/31/24 Team Status: Inactive Member Role Status Dates Brigida Corea APRN CYTOGENETICS LABORATORY MANAGER-C Primary Care Provider Act sushma Start: September 09, 2024 End: September 09, 2024 Annmarie Palmer DO Attending Provider Active St art: September 09, 2024 End: September 09, 2024 Mixed Crop Farmer Relationship Specialty Start Date End Date Unallocated, Robyn Fletcher MD [address] [place] [address] PCP - General Family Medicine 10/10/23 Mixed Crop Farmer Relationship Specialty Start Date End Date Unallocated, MD Reinier Epperson [place] [address] PCP - General Family Medicine 10/10/23 Mixed Crop Farmer Relationship Specialty Start Date End Date Brigida Corea CNP [address] [place] [address] PCP - General Family Medicine 08/27/23 Brandi Pruitt MD [address] [facility] [place] [address] Referring Obstetrics 05/02/21 Jorgito Sanchez DO [address] [place] [address] Referring Family Medicine 08/23/21 Brigida Corea CNP [address] [place] [address] Primary Service Family Medicine 08/01/23 Simone Rivera APRN [address] [address] Referring Family Medicine 08/31/24 Team Status: Active Member Role Status Dates Brigida Corea APRN CYTOGENETICS LABORATORY MANAGER-C Primary Care Provider Act sushma Start: September 10, 2024 MARCELLO Coombs Attending Provider Active S tart: September 10, 2024 Team Status: Active Member Role Status Dates Brigida Corea APRN CYTOGENETICS LABORATORY MANAGER-C Primary Care Provider Act sushma Start: September 17, 2024 No Desir MD Attending Provider Active St art: September 17, 2024 Team Status: Inactive Member Role Status Dates Brigida Corea APRN CYTOGENETICS LABORATORY MANAGER-C Primary Care Provider Act sushma Start: September 17, 2024 End: September 17, 2024 Ori Marin PA-C Attending Provider Active St art: September 17, 2024 End: September 17, 2024 Team Status: Active Member Role Status Dates Brigida Corea APRN CYTOGENETICS LABORATORY MANAGER-C Primary Care Provider Act sushma Start: September 17, 2024 Ori Marin PA-C Attending Provider Active St art: September 17, 2024 Team Status: Inactive Member Role Status Dates Brigida Corea APRN CYTOGENETICS LABORATORY MANAGER-C Primary Care Provider Act sushma Start: September 17, 2024 End: September 17, 2024 No Desir MD Attending Provider Active St art: September 17, 2024 End: September 17, 2024 Team Status: Inactive Member Role Status Dates Brigida Corea APRN CYTOGENETICS LABORATORY MANAGER-C Primary Care Provider Act sushma Start: September 27, 2024 End: September 27, 2024 Kevin Barger DO Emergency Provider Active Sta rt: September 27, 2024 End: September 27, 2024 Team Status: Inactive Member Role Status Dates Brigida Corea APRN CYTOGENETICS LABORATORY MANAGER-C Primary Care Provider Act sushma Start: October 01, 2024 End: October 01, 2024 Annmarie Palmer DO Attending Provider Active St art: October 01, 2024 End: October 01, 2024 Team Status: Active Member Role Status Dates Brigida Corea APRN CYTOGENETICS LABORATORY MANAGER-C Primary Care Provider Active Start: October [id number] Annmarie Palmer DO Attending Provider, Other Provider Active Start: October 01, 2024 Mixed Crop Farmer Relationship Specialty Start Date End Date Brigida Corea CNP [address] [place] [address] PCP - General Family Medicine 08/27/23 Brandi Pruitt MD [address] [facility] [place] [phone] Referring Obstetrics 05/02/21 Jorgito Sanchez DO [address] [place] [address] Referring Family Medicine 08/23/21 Brigida Corea CNP [address] [place] [address] Primary Service Family Medicine 08/01/23 Simone Rivera, REED CLEANER [address] [id number] Referring Family Medicine 08/31/24 Mixed Crop Farmer Relationship Specialty Start Date End Date Brigida Corea CNP [address] [place] [address] PCP - General Family Medicine 08/27/23 Brandi Pruitt MD [address] [place] [address] Referring Obstetrics 05/02/21 Jorgito Sanchez DO [address] [place] [address] Referring Family Medicine 08/23/21 Brigida Corea CNP [address] [place] [address] Primary Service Family Medicine 08/01/23 Simone Rivera, REED CLEANER [address] [address] Referring Family Medicine 08/31/24 Mixed Crop Farmer Relationship Specialty Start Date End Date Brigida Corea CNP [address] [place] [address] PCP - General Family Medicine 08/27/23 Brandi Pruitt MD [address] [facility] [address] [place] [address] Referring Obstetrics 05/02/21 Jorgito Sanchez DO [address] [place] [address] Referring Family Medicine 08/23/21 Brigida Corea, GERARDO [address] [place] [address] Primary Service Family Medicine 08/01/23 Simone Rivera APRN [address] [place], [place] [address] Referring Family Medicine 08/31/24 Mixed Crop Farmer Relationship Specialty Start Date End Date Brigida Corea CNP [address] [place] [address] PCP - General Family Medicine 08/27/23 Brandi Pruitt MD [address] [facility] [place] [address] Referring Obstetrics 05/02/21 Jorgito Sanchez DO [address] [place] [address] Referring Family Medicine 08/23/21 Brigida Corea, GERARDO [address] [place] [address] Primary Service Family Medicine 08/01/23 Simone Rivera, TODD [address] [address] Referring Family Medicine 08/31/24 Mixed Crop Farmer Relationship Specialty Start Date End Date Brigida Corea, GERARDO [address] [place] [address] PCP - General Family Medicine 08/27/23 Brandi Pruitt MD [address] [place] [address] Referring Obstetrics 05/02/21 Jorgito Sanchez DO [address] [place] [address] Referring Family Medicine 08/23/21 Brigida Corea, MEASURER [address] [place] [address] Primary Service Family Medicine 08/01/23 Simone Rivera, TODD [address] [address] [place], [place] [id number] Referring Family Medicine 08/31/24 Mixed Crop Farmer Relationship Specialty Start Date End Date Brigida Corea, MEASURER [address] [place] [address] PCP - General Family Medicine 08/27/23 Brandi Pruitt MD [address] [place] [address] Referring Obstetrics 05/02/21 Jorgito Sanchez DO [address] [place] [address] Referring Family Medicine 08/23/21 Brigida Corea, MEASURER [address] [place] [address] Primary Service Family Medicine 08/01/23 Simone Rivera, TODD [address] [place], [place] [address] Referring Family Medicine 08/31/24 Mixed Crop Farmer Relationship Specialty Start Date End Date Brigida Corea CNP [address] [place] [address] PCP - General Family Medicine 08/27/23 Brandi Pruitt MD [address] [facility] [address] [place] [phone] Referring Obstetrics 05/02/21 Jorgito Sanchez DO [address] [place] [phone] Referring Family Medicine 08/23/21 Brigida Corea CNP [address] [place] [phone] Primary Service Family Medicine 08/01/23 Simone Rivera APRN [address] [facility] [address] [place], [place] [address] Referring Family Medicine 08/31/24 Mixed Crop Farmer Relationship Specialty Start Date End Date Brigida Corea CNP [address] [place] [id number] PCP - General Family Medicine 08/27/23 Brandi Pruitt MD [address] [facility] [place] [phone] Referring Obstetrics 05/02/21 Jorgito Sanchez DO [address] [place] [address] Referring Family Medicine 08/23/21 Brigida Corea, GERARDO [address] [place] [address] Primary Service Family Medicine 08/01/23 Simone Rivera, TODD [address] [address] Referring Family Medicine 08/31/24 Mixed Crop Farmer Relationship Specialty Start Date End Date Brigida Corea, GERARDO [address] [place] [address] PCP - General Family Medicine 08/27/23 Brandi Pruitt MD [address] [facility] [place] [phone] Referring Obstetrics 05/02/21 Jorgito Sanchez DO [address] [place] [address] Referring Family Medicine 08/23/21 Brigida Corea, GERARDO [address] [place] [address] Primary Service Family Medicine 08/01/23 Simone Rivera, TODD [address] [address] Referring Family Medicine 08/31/24 Mixed Crop Farmer Relationship Specialty Start Date End Date Unallocated, Robyn Fletcher MD [address] [place] [address] PCP - General Family Medicine 10/10/23 Mixed Crop Farmer Relationship Specialty Start Date End Date Brigida Corea, GERARDO [address] [place] [address] PCP - General Family Medicine 08/27/23 Brandi Pruitt MD [address] [address] [place] [phone] Referring Obstetrics 05/02/21 Jorgito Sanchez DO [address] [place] [phone] Referring Family Medicine 08/23/21 Brigida Corea, MEASURER [address] [place] [address] Primary Service Family Medicine 08/01/23 Simone Rivera APRN [address] [place] [address] Referring Family Medicine 08/31/24 Mixed Crop Farmer Relationship Specialty Start Date End Date Brigida Corea, MEASURER [address] [place] [address] PCP - General Family Medicine 08/27/23 Brandi Pruitt MD [address] [facility] 210 [place] [address] Referring Obstetrics 05/02/21 Jorgito Sanchez DO [address] [place] [address] Referring Family Medicine 08/23/21 Brigida Corea CNP [address] [place] [address] Primary Service Family Medicine 08/01/23 Simone Rivera APRN [address] [place], [place] [address] Referring Family Medicine 08/31/24 Mixed Crop Farmer Relationship Specialty Start Date End Date Unallocated, Robyn Fletcher MD [address] [facility] [place] [address] PCP - General Family Medicine 10/10/23 Mixed Crop Farmer Relationship Specialty Start Date End Date Unallocated, Robyn Fletcher MD [address] [place] [address] PCP - General Family Medicine 10/10/23 Team Status: Inactive Member Role Status Dates Services [facility] Primary Care Provider Active Start: January 12, 2025 End: January 12, 2025 Mary Ellen Magallanes APRN Emergency Provider Active Start: January 12, 2025 End: January 12, 2025 Mixed Crop Farmer Relationship Specialty Start Date End Date Mode Pete MD [address] [place] [address] PCP - General Medical 12/18/24 Brandi Pruitt MD [address] [facility] [place] [phone] Referring Obstetrics 05/02/21 Jorgito Sanchez DO [address] [place] [address] Referring Family Medicine 08/23/21 Brigida Corea, MEASURER [address] [place] [address] Primary Service Family Medicine 08/01/23 Simone Rivera, TODD [address] [address] Referring Family Medicine 08/31/24 Mixed Crop Farmer Relationship Specialty Start Date End Date Mode Pete MD [address] [place] [address] PCP - General Medical 12/18/24 Brandi Pruitt MD [address] [place] [address] Referring Obstetrics 05/02/21 Jorgito Sanchez DO [address] [place] [address] Referring Family Medicine 08/23/21 Brigida Corea MEASURER [address] [place] [address] Primary Service Family Medicine 08/01/23 Simone Rivera APRN [address] [address] Referring Family Medicine 08/31/24 Mixed Crop Farmer Relationship Specialty Start Date End Date Mode Pete MD [address] [place] [address] PCP - General Medical 12/18/24 Brandi Pruitt MD [address] [place] [address] Referring Obstetrics 05/02/21 Jorgito Sanchez DO [address] [place] [address] Referring Family Medicine 08/23/21 Brigida Corea CNP [address] [place] [address] Primary Service Family Medicine 08/01/23 Rivera Simone, REED CLEANER [address] [place] [address] Referring Family Medicine 08/31/24 Mixed Crop Farmer Relationship Specialty Start Date End Date Mode Pete MD [address] [place] [address] PCP - General Medical 12/18/24 Brandi Pruitt MD [address] [place] [address] Referring Obstetrics 05/02/21 Jorgito Sanchez DO [address] [place] [address] Referring Family Medicine 08/23/21 Brigida Corea CNP [address] [place] [address] Primary Service Family Medicine 08/01/23 RiveraSimone, REED CLEANER [address] [place] [address] Referring Family Medicine 08/31/24 Mixed Crop Farmer Relationship Specialty Start Date End Date Mode Pete MD [address] [place] [address] PCP - General Medical 12/18/24 Brandi Pruitt MD [address] [place] [address] Referring Obstetrics 05/02/21 Jorgito Sanchez DO [address] [place] [address] Referring Family Medicine 08/23/21 Brigida Corea, MEASURER [address] [place] [address] Primary Service Family Medicine 08/01/23 Simone Rivera APRN [address] [place] [address] Referring Family Medicine 08/31/24 Mixed Crop Farmer Relationship Specialty Start Date End Date Mode Pete MD [address] [place] [address] PCP - General Medical 12/18/24 Brandi Pruitt MD [address] [facility] [address] [place] [address] Referring Obstetrics 05/02/21 Jorgito Sanchez DO [address] [place] [address] Referring Family Medicine 08/23/21 Brigida Corea, MEASURER [address] [place] [address] Primary Service Family Medicine 08/01/23 Simone Rivera APRN [address] [address] Referring Family Medicine 08/31/24 Mixed Crop Farmer Relationship Specialty Start Date End Date Mode Pete MD [address] [place] [address] PCP - General Medical 12/18/24 Brandi Pruitt MD [address] [place] [address] Referring Obstetrics 05/02/21 Jorgito Sanchez DO [address] [place] [address] Referring Family Medicine 08/23/21 Brigida Corea MEASURER [address] [place] [address] Primary Service Family Medicine 08/01/23 Simone Rivera APRN [address] [place] [phone] Referring Family Medicine 08/31/24 Mixed Crop Farmer Relationship Specialty Start Date End Date Mode Pete MD [address] [place] [address] PCP - General Medical 12/18/24 Brandi Pruitt MD [address] [facility] [address] [place] [address] Referring Obstetrics 05/02/21 Jorgito Sanchez DO [address] [place] [address] Referring Family Medicine 08/23/21 Brigida Corea, MEASURER [address] [place] [address] Primary Service Family Medicine 08/01/23 Rivera Simone, REED CLEANER [address] [place], [place] [address] Referring Family Medicine 08/31/24 Mixed Crop Farmer Relationship Specialty Start Date End Date Mode Pete MD [address] [place] [address] PCP - General Medical 12/18/24 Brandi Pruitt MD [address] [place] [address] Referring Obstetrics 05/02/21 Jorgito Sanchez DO [address] [place] [address] Referring Family Medicine 08/23/21 Brigida Corea CNP [address] [place] [address] Primary Service Family Medicine 08/01/23 Simone Rivera, REED CLEANER [address] [address] Referring Family Medicine 08/31/24 Mixed Crop Farmer Relationship Specialty Start Date End Date Mode Pete MD [address] [place] [address] PCP - General Medical 12/18/24 Brandi Pruitt MD [address] [facility] [address] [place] [address] Referring Obstetrics 05/02/21 Jorgito Sanchez DO [address] [place] [address] Referring Family Medicine 08/23/21 Brigida Corea, MEASURER [address] [place] [address] Primary Service Family Medicine 08/01/23 Simone Rivera APRN [address] [place] [address] Referring Family Medicine 08/31/24 Mixed Crop Farmer Relationship Specialty Start Date End Date Unallocated, Robyn Fletcher MD [address] [place] [address] PCP - General Family Medicine 10/10/23 Mixed Crop Farmer Relationship Specialty Start Date End Date Mode Pete MD [address] [place] [address] PCP - General Medical 12/18/24 Brandi Pruitt MD [address] [facility] [place] [address] Referring Obstetrics 05/02/21 Jorgito Sanchez DO [address] [place] [address] Referring Family Medicine 08/23/21 Brigida Corea MEASURER [address] [place] [address] Primary Service Family Medicine 08/01/23 Simone Rivera APRN [address] [place] [address] Referring Family Medicine 08/31/24 Team Status: Inactive Member Role Status Dates Services Family [facility] Primary Care Provider Active Start: January 15, 2025 End: January 15, 2025 No Covington DO Emergency Provider Active St art: January 15, 2025 End: January 15, 2025 Team Status: Inactive Member Role Status Dates Delroy Merino DPM Attending Provider Active Start: January 16, 2025 End: January 16, [address] [facility] Primary Care Provider Active Start: January 16, 2025 End: January 16, 2025 Team Status: Inactive Member Role Status Dates Services [facility] Primary Care Provider Active Start: February 14, 2025 End: February 14, 2025 Lisa Adkins APRN Emergency Provider Active S tart: February 14, 2025 End: February 14, 2025 Mixed Crop Farmer Relationship Specialty Start Date End Date Unallocated, Robyn Fletcher MD [address] [place] [address] PCP - General Family Medicine 10/10/23 Team Status: Inactive Member Role Status Dates Ashley Aleman DNP Attending Provider Active S tart: February 16, 2025 End: February 16, [address] [facility] Primary Care Provider Active Start: February 16, 2025 End: February 16, 2025 Mixed Crop Farmer Relationship Specialty Start Date End Date Mode Pete MD [address] [place] [address] PCP - General Medical 12/18/24 Brandi Pruitt MD [address] [facility] [place] [address] Referring Obstetrics 05/02/21 Jorgito Sanchez DO [address] [place] [address] Referring Family Medicine 08/23/21 Brigida Corea, GERARDO [address] [place] [address] Primary Service Family Medicine 08/01/23 Simone Rivera, TODD [address] [place], [place] [address] Referring Family Medicine 08/31/24 Delroy Merino [address] [address] [place] [address] Referring Podiatry 02/16/25 Mixed Crop Farmer Relationship Specialty Start Date End Date Mode Pete MD [address] [place] [address] PCP - General Medical 12/18/24 Brandi Pruitt MD [address] [address] [place] [address] Referring Obstetrics 05/02/21 Jorgito Sanchez DO [address] [place] [address] Referring Family Medicine 08/23/21 Brigida Corea, MEASURER [address] [place] [address] Primary Service Family Medicine 08/01/23 Simone Rivera, TODD [address] [address] Referring Family Medicine 08/31/24 Delroy Merino [address] [place] [address] Referring Podiatry 02/16/25 Mixed Crop Farmer Relationship Specialty Start Date End Date Mode Pete MD [address] [facility] [place] [address] PCP - General Medical 12/18/24 Brandi [facility]ruitt MD [address] [facility] [place] [address] Referring Obstetrics 05/02/21 Jorgito Sanchez DO [address] [place] [address] Referring Family Medicine 08/23/21 Brigida Corea MEASURER [address] [place] [address] Primary Service Family Medicine 08/01/23 Simone Rivera APRN [address] [address] Referring Family Medicine 08/31/24 Delroy Merino [address] [place] [address] Referring Podiatry 02/16/25 Team Status: Inactive Member Role Status Dates Caroline Jung DO RES Attending Provider Active Start: February 19, 2025 End: February 19, 2025 Mixed Crop Farmer Relationship Specialty Start Date End Date Mode Pete MD [address] [facility] [place] [address] PCP - General Medical 12/18/24 Brandi Pruitt MD [address] [facility] [address] [place] [address] Referring Obstetrics 05/02/21 Jorgito Sanchez DO [address] [place] [address] Referring Family Medicine 08/23/21 Brigida Corea CNP [address] [facility] [place] [address] Primary Service Family Medicine 08/01/23 Simone Rivera APRN [address] [address] Referring Family Medicine 08/31/24 Delroy Merino [address] [facility] 5 [place] [address] Referring Podiatry 02/16/25 Team Status: Active Member Role Status Dates PABLITO MerlosC Primary Care Provider Active Team Status: Inactive Member Role Status Dates Josr Fuentes MD Attending Provider Activ e Start: February 26, 2025 End: February 26, 2025 VIPUL Merlos Primary Care Provider Active Start: February 26, 2025 End: February 26, 2025 Team Status: Inactive Member Role Status Dates Josr Fuentes MD Attending Provider Activ e Start: March 01, 2025 End: March 01, 2025 PABLITO MerlosC Primary Care Provider Active Start: March 01, 2025 End: March 01, 2025 Mixed Crop Farmer Relationship Specialty Start Date End Date Mode Pete MD [address] [place] [address] PCP - General Medical 12/18/24 Brandi Pruitt MD [address] [facility] [address] [place] [phone] Referring Obstetrics 05/02/21 Jorgito Sanchez DO [address] [place] [address] Referring Family Medicine 08/23/21 Brigida Corea CNP [address] [place] [address] Primary Service Family Medicine 08/01/23 Simone Rivera APRN [address] [facility] [address] [place], [place] [address] Referring Family Medicine 08/31/24 Delroy Merino [address] [place] [address] Referring Podiatry 02/16/25 Mixed Crop Farmer Relationship Specialty Start Date End Date Mode Pete MD [address] [place] [address] PCP - General Medical 12/18/24 Brandi Pruitt MD [address] [facility] [address] [place] [address] Referring Obstetrics 05/02/21 Jorgito Sanchez DO [address] [place] [address] Referring Family Medicine 08/23/21 Brigida Corea CNP [address] [address] Primary Service Family Medicine 08/01/23 Simone Rivera, TODD [address] [place] [address] Referring Family Medicine 08/31/24 Delroy Merino [address] [address] [place] [address] Referring Podiatry 02/16/25 Mixed Crop Farmer Relationship Specialty Start Date End Date Mode Pete MD [address] [place] [address] PCP - General Medical 12/18/24 Brandi Pruitt MD [address] [place] [address] Referring Obstetrics 05/02/21 Jorgito Sanchez DO [address] [place] [address] Referring Family Medicine 08/23/21 Brigida Corea CNP [address] [place] [address] Primary Service Family Medicine 08/01/23 Simone Rivera, TODD [address] [address] Referring Family Medicine 08/31/24 Delroy Merino [address] [address] Referring Podiatry 02/16/25 Mixed Crop Farmer Relationship Specialty Start Date End Date Mode Pete MD [address] [facility] [place] [address] PCP - General Medical 12/18/24 Brandi Pruitt MD [address] [facility] [address] [place] [address] Referring Obstetrics 05/02/21 Jorgito Sanchez DO [address] [place] [address] Referring Family Medicine 08/23/21 Brigida Corea, MEASURER [address] [facility] [place] [address] Primary Service Family Medicine 08/01/23 Simone Rivera APRN [address] [facility] [address] [place] [address] Referring Family Medicine 08/31/24 Delroy Merino [address] [address] Referring Podiatry 02/16/25 Team Status: Inactive Member Role Status Dates Lisa Moreira RD Attending Provider Active S tart: March 30, 2025 End: March 30, 2025 Ashley Valle NP-C Primary Care Provider Active Start: March 30, 2025 End: March 30, 2025 Team Status: Active Member Role Status Dates PABLITO MerlosC Primary Care Provider Active Start: April 01, 2025 Kiley Dale MD Emergency Provider Active Start: April 01, 2025 Jerry Sarmiento DO Admit Provider Active Start: April 01, 2025 Jerry Sarmiento DO Attending Provider Active St art: April 01, 2025 Team Status: Inactive Member Role Status Dates PABLITO MerlosC Primary Care Provider Active Start: April 01, 2025 End: April 02, 2025 Kiley Dale MD Emergency Provider Active Start: April 01, 2025 End: April 02, 2025 Jrery Sarmiento DO Admit Provider Active Start: April 01, 2025 End: April 02, 2025 Jerry Sarmiento DO Attending Provider Active St art: April 01, 2025 End: April 02, 2025 Goals (unrecognized section and content) Type Treatment Intervention Code Status: Full Code Goals may be documented in an alternate section INFORMATION SOURCE (unrecogn ized section and content) DATE CREATED AUTHOR 04/06/2022 [facility] DATE CREATED AUTHOR AUTHOR'S ORGANIZ ATION 12/19/2022 [facility] DATE CREATED AUTHOR AUTHOR'S ORGANIZ ATION 10/24/2023 [facility] DATE CREATED AUTHOR AUTHOR'S ORGANIZ ATION 10/27/2024 [facility] DATE CREATED AUTHOR AUTHOR'S ORGANIZ ATION 10/30/2024 [facility] DATE CREATED AUTHOR AUTHOR'S ORGANIZ ATION 12/17/2024 [facility] DATE CREATED AUTHOR AUTHOR'S ORGANIZ ATION 12/30/2024 [facility] DATE CREATED AUTHOR AUTHOR'S ORGANIZ ATION 04/13/2025 [facility] DATE CREATED AUTHOR AUTHOR'S ORGANIZ ATION 04/17/2025 [facility] DATE CREATED AUTHOR AUTHOR'S ORGANIZ ATION 04/20/2025 [facility] EPIC FOR RECORDS PERTAINING TO PATIENTS WHO ARE [...] BE BASED ON THE PRIMARY CLINICAL RECORDS. [employer] [facility]. provides no warranty or guarantee of the accuracy or completeness of information in this document.
[2025-04-27 21:41] LABS: Glucose Urine UA NEGATIVE (NEGATIVE)
[2025-04-27 21:57] LABS: Crystals Seen? Seen #/HPF (None Seen)
[2025-04-27 22:00] LABS: Cast Seen? NONE SEEN #/LPF (NONE SEEN)
[2025-04-27 22:01] LABS: Urine Culture Indicated NO
[2025-04-27] MEDS: HYDROCODONE/ACET 5-325 MG TABLET 1 TAB PO (22:06)
== END 2025-04-27 22:09 | disposition home or self-care (01) ==
PROVIDERS: Emergency Provider Emergency Medicine; PCP Nurse Practitioner Family
DX: M54.9 Dorsalgia, unspecified (principal); G89.29 Other chronic pain; H92.01 Otalgia, right ear; E66.01 Morbid (severe) obesity due to excess calories; Z68.41 Body mass index [BMI] 40.0-44.9, adult; Z79.899 Other long term (current) drug therapy
CPT/HCPCS: 81001; 99283